=== PATIENT | male | born 1945 | race Caucasian/White ===

== ENCOUNTER 2023-10-30 14:35 | Observation (INO) | payer MEDICARE, OTHER, SELFPAY ==
[2023-10-30] VITALS (9 sets, daily range): BP systolic 142–190; BP diastolic 72–93; PULSE 61–84; TEMP 36.4–36.8; O2SAT 96–99; BMI 24.9
--- NOTE | 2023-10-30 14:52 | CT_ITS ---
The [address] [address] Patient Name: AFITH OLIVIER MRN: [id number] date: 1945 Sex: M Assigned Patient Location: ER Current Patient Location: ER Accession/Order Number: [id number] Exam Date: 10/30/2023 14:52 Report Date: 10/30/2023 15:09 At the request of: TOSIN STOVALL Procedure: CT stroke head/brain wo con NONCONTRAST HEAD CT COMPARISON: Head CT, 07/01/2017. CLINICAL HISTORY: Confusion. TECHNIQUE: Routine noncontrast images of the brain obtained. CT examination of the head without IV contrast. Dose reduction techniques were achieved by using: automated exposure control and/or adjustment of mA and /or kV according to patient size and/or use of iterative reconstruction technique. FINDINGS: Paranasal sinuses and mastoid air cells are clear. Intraorbital contents are unremarkable. No acute bony abnormality. Intracranially, there is no evidence of hemorrhage, mass effect, or midline shift. Brain atrophy unchanged. Dense carotid vascular calcifications.. CT/CT stroke head/brain wo con IMPRESSION: No acute intracranial abnormality. Electronically authenticated by: MAXIME BOSTON Date: 10/30/2023 15:09
--- NOTE | 2023-10-30 14:52 | XR_ITS ---
The [address] [address] Patient Name: FAITH OLIVIER MRN: [id number] date: 1945 Sex: M Assigned Patient Location: ER Current Patient Location: ER Accession/Order Number: [id number] Exam Date: 10/30/2023 14:52 Report Date: 10/30/2023 15:22 At the request of: TOSIN STOVALL Procedure: XR chest 1V EXAMINATION: XR chest 1V HISTORY: TIA COMPARISON: No relevant comparison available. FINDINGS: LUNGS: No significant pulmonary parenchymal abnormalities. VASCULATURE: No increased pulmonary vasculature. PLEURA: No pneumothorax, effusion, or pleural thickening. CARDIAC: No cardiomegaly or cardiac silhouette abnormality. MEDIASTINUM: No visible mass or adenopathy. BONES: No fracture or visible bone lesion. OTHER: Negative. XR/XR chest 1V IMPRESSION: 1. No acute cardiopulmonary process. Electronically authenticated by: RAZA WEIR Date: 10/30/2023 15:22
--- NOTE | 2023-10-30 14:52 | ECG_ITS ---
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
[2023-10-30 14:54] LABS: Glucometer 99 mg/dL (74-106)
--- NOTE | 2023-10-30 14:55 | ED_ITS ---
HPI HPI - General Adult General Chief complaint: Neuro Symptoms/Deficit Stated complaint: TIA Time Seen by Provider: 10/30/23 14:46 Source: family Source information: Mode of arrival: Wheelchair Limitations: no limitations History of Present Illness HPI narrative: Patient is a 78-year-old male with a history of dementia who presents to the emergency department with his for evaluation of an episode that occurred at home just prior to arrival. 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 Patient's daughter reported over the weekend last week, the patient had slurred speech. Patient's states he has a history of having a carotid endarterectomy in 1 side, he is awaiting a vascular appointment to have the other side evaluated. She denies any history of stroke. She states he has baseline dementia and is always disoriented to time Related Data Allergies Allergy/AdvReac Type Severity Reaction Status Date / Time NSAIDS (Non-Steroidal Allergy Mild Headache Verified 10/30/23 14:47 Anti-Inflamma Opioid HPI Opioid Management Most Recent Opioid Data: No Data to Display Review of Systems ROS Constitutional Denies: fever or chills Ears, nose, mouth, and throat Denies: throat pain or nasal congestion Respiratory Denies: shortness of breath Gastrointestinal Denies: abdominal pain, nausea or vomiting Integumentary/Breast Denies: rash Neurological Denies: headache Hematologic/Lymphatic Denies: easy bruising or easy bleeding Exam Narrative Exam Narrative: Gen.: Awake, alert, in no distress Head: Normocephalic, atraumatic ENT: Moist mucous membranes Respiratory: No respiratory distress, lungs clear bilaterally Cardio: Regular rate and rhythm Gastrointestinal: Abdomen is soft, nondistended and nontender to palpation Extremities: Moves extremities equally, no injuries noted Psych: Normal mood and affect Neuro: No focal neuro deficit, Alert and oriented to person and place. Disoriented to time at baseline. No unilateral weakness Skin: Warm, dry, intact Constitutional Vital Signs, click to edit/add: Last Vital Signs Temp 98.2 F 10/30/23 14:47 Pulse 66 10/30/23 18:21 Resp 18 10/30/23 18:21 BP 183/93 H 10/30/23 18:21 Pulse Ox 99 10/30/23 18:21 Course Vital Signs Vital signs: Vital Signs Temperature 98.2 F 10/30/23 14:47 Pulse Rate 78 10/30/23 14:47 Respiratory Rate 16 10/30/23 14:47 Blood Pressure 142/77 H 10/30/23 14:47 Pulse Oximetry 98 10/30/23 14:47 Temperature 98.2 F 10/30/23 14:47 Pulse Rate 66 10/30/23 18:21 Respiratory Rate 18 10/30/23 18:21 Blood Pressure 183/93 H 10/30/23 18:21 Pulse Oximetry 99 10/30/23 18:21 Medical Decision Making MDM Narrative Medical decision making narrative: On arrival to the emergency department, patient was immediately sent for stroke protocol CT of the brain, IV was established, labs were drawn and EKG was performed. He has no focal neurodeficits in the ER other than his baseline short-term memory issues where he is disoriented to month, year and age. He maintained stable vital signs in the ER, CT angio of the head and neck is unremarkable. I discussed the case with Dr. Robledo for [facility] stroke interventionalists. No other acute neurological intervention indicated at this time and the patient will be placed in the hospital for observation for a possible syncopal episode versus near syncopal episode. He is stable at time of admission. Medical Records Medical records reviewed: Yes I reviewed the patient's medical records Lab Data Lab results reviewed: Yes I reviewed the patient's lab results Labs: Lab Results 10/30/23 10/30/23 10/30/23 Range/Units 14:48 15:10 15:58 WBC 5.6 (4.0-11.0) 10^3/uL RBC 3.99 L (4.70-6.10) 10^6/uL Hgb 12.7 L (14.0-18.0) g/dL Hct 38.6 L (42.0-54.0) % MCV 96.7 H (80.0-94.0) fL MCH 31.8 (25.9-34.0) pg MCHC 32.9 (29.9-35.2) g/dL RDW 13.0 (11.0-15.0) % Plt Count 196 (150-450) 10^3/uL MPV 9.7 (9.5-13.5) fL Neut % (Auto) 54.8 (43.0-75.0) % Lymph % (Auto) 32.6 (20.5-60.0) % [place] % (Auto) 11.2 (1.7-12.0) % Eos % (Auto) 0.7 L (0.9-7.0) % Baso % (Auto) 0.5 (0.2-2.0) % Neut # (Auto) 3.1 (1.4-6.5) 10^3/uL Lymph # (Auto) 1.8 (1.2-3.8) 10^3/uL [place] # (Auto) 0.6 (0.3-0.8) 10^3/uL Eos # (Auto) 0.0 (0.0-0.7) 10^3/uL Baso # (Auto) 0.0 (0.0-0.1) 10^3/uL Abs Immat Gran (auto) 0.01 (0.00-0.03) 10^3/uL Imm/Tot Granulo (auto) 0.2 (0.0-0.5) % PT 11.1 (9.0-11.6) sec INR 1.05 Sodium 139 (136-145) mmol/L Potassium 4.4 (3.5-5.1) mmol/L Chloride 104 (98-107) mmol/L Carbon Dioxide 28.7 (21.0-32.0) mmol/L Anion Gap 10.7 BUN 24.0 H (7.0-18.0) mg/dL Creatinine 1.16 (0.70-1.30) mg/dL Est GFR ( Amer) >60 (>=60) Est GFR (Non-Af Amer) >60 (>=60) BUN/Creatinine Ratio 20.7 Glucose 94 (74-106) mg/dL Calcium 9.2 (8.5-10.1) mg/dL Total Bilirubin 0.4 (0.2-1.0) mg/dL AST 20 (15-37) U/L ALT 30 (16-63) U/L Alkaline Phosphatase 50 (46-116) U/L Troponin I High Sens 6.3 (4.0-76.1) pg/mL Total Protein 6.9 (6.4-8.2) g/dL Albumin 3.5 (3.4-5.0) g/dL Globulin 3.4 g/dL Albumin/Globulin Ratio 1.0 TSH 6.001 H (0.358-3.740) uIU/mL Urine Color Lt. yellow (YELLOW) Urine Clarity Clear (CLEAR) Urine pH 6.5 (5.0-9.0) Ur Specific [place] 1.020 (1.005-1.025) Urine Protein Negative (NEG/TRACE) mg/dL Urine Glucose (UA) Negative (NEGATIVE) mg/dL Urine Ketones Negative (NEGATIVE) mg/dL Urine Occult Blood Negative (NEGATIVE) Urine Nitrite Negative (NEGATIVE) Urine Bilirubin Negative (NEGATIVE) Urine Urobilinogen 0.2 (0.2-1.0) EU/dL Ur Leukocyte Esterase Trace A (NEGATIVE) Urine RBC 0-2 (0-2) #/HPF Urine WBC 2-5 A (NONE SEEN) #/HPF Ur Squamous Epith Cells None seen (NONE/RARE) #/LPF Urine Crystals None seen (None Seen) #/HPF Urine Bacteria Trace A (NONE SEEN) #/HPF Urine Casts None seen (NONE SEEN) #/LPF Urine Mucus Small A (NONE SEEN) Ur Culture Indicated? No POC Glucose 99 (74-106) mg/dL Imaging Data CT scan - head: Attestation: I have reviewed the pertinent imaging results. Radiologist's impression: ITS Impressions Brain CT 10/30/23 14:52 IMPRESSION: No acute intracranial abnormality. Electronically authenticated by: MAXIME BOSTON Date: 10/30/2023 15:09 Chest X-Ray 10/30/23 14:52 IMPRESSION: 1. No acute cardiopulmonary process. Electronically authenticated by: RAZA WEIR Date: 10/30/2023 15:22 Head CTA 10/30/23 16:51 IMPRESSION: 1. No acute arterial abnormalities in the head or neck. 2. Moderate right cervical ICA stenosis of 50% or greater. Electronically authenticated by: MADELYN TAYLOR Date: 10/30/2023 18:05 Neck CTA 10/30/23 16:51 IMPRESSION: 1. No acute arterial abnormalities in the head or neck. 2. Moderate right cervical ICA stenosis of 50% or greater. Electronically authenticated by: MADELYN TAYLOR Date: 10/30/2023 18:05 ECG Data Attestation: I personally reviewed and interpreted this ECG as follows: (Normal sinus rhythm at a rate of 72 with occasional PVC, no acute ST elevation or ectopy. EKG reviewed by attending physician) Discharge Plan Discharge Chief Complaint: Neuro Symptoms/Deficit Clinical Impression: Syncope Patient Disposition: Admitted as Observation Time of Disposition Decision: 18:22 Condition: Good
[2023-10-30 15:27] LABS: Basophils Percent Auto 0.5 % (0.2-2.0); Eosinophils Percent Auto 0.7 % (0.9-7.0); Hematocrit 38.6 % (42.0-54.0); Hemoglobin 12.7 g/dL (14.0-18.0); Immature Granulocytes Abs Auto 0.01 10^3/uL (0.00-0.03); Immature Granulocytes Pct Auto 0.2 % (0.0-0.5); Lymphocytes Absolute Auto 1.8 10^3/uL (1.2-3.8); Lymphocytes Percent Auto 32.6 % (20.5-60.0); Mean Corpuscular HGB Conc 32.9 g/dL (29.9-35.2); Mean Corpuscular Hemoglobin 31.8 pg (25.9-34.0); Mean Corpuscular Volume 96.7 fL (80.0-94.0); Mean Platelet Volume 9.7 fL (9.5-13.5); Monocytes Absolute Auto 0.6 10^3/uL (0.3-0.8); Monocytes Percent Auto 11.2 % (1.7-12.0); Neutrophils Absolute Auto 3.1 10^3/uL (1.4-6.5); Neutrophils Percent Auto 54.8 % (43.0-75.0); Platelet Count 196 10^3/uL (150-450); Red Blood Count 3.99 10^6/uL (4.70-6.10); White Blood Count 5.6 10^3/uL (4.0-11.0)
[2023-10-30 15:45] LABS: INR 1.05; Prothrombin Time 11.1 sec (9.0-11.6)
[2023-10-30 16:02] LABS: Alanine Aminotransferase 30 U/L (16-63); Albumin Level 3.5 g/dL (3.4-5.0); Alkaline Phosphatase 50 U/L (46-116); Anion Gap 10.7; Aspartate Amino Transferase 20 U/L (15-37); BUN Creatinine Ratio 20.7; Bilirubin Total 0.4 mg/dL (0.2-1.0); Calcium 9.2 mg/dL (8.5-10.1); Carbon Dioxide 28.7 mmol/L (21.0-32.0); Chloride 104 mmol/L (98-107); Estimated GFR (African America >60 (>=60); Estimated GFR (Non-African Ame >60 (>=60); Globulin 3.4 g/dL; Glucose 94 mg/dL (74-106); Potassium 4.4 mmol/L (3.5-5.1); Sodium 139 mmol/L (136-145); Thyroid Stimulating Hormone 6.001 uIU/mL (0.358-3.740); Total Protein 6.9 g/dL (6.4-8.2); Troponin I High Sensitivity 6.3 pg/mL (4.0-76.1)
[2023-10-30 16:19] LABS: Bilirubin Urine NEGATIVE (NEGATIVE); Blood Urine NEGATIVE (NEGATIVE); Clarity Urine CLEAR (CLEAR); Color Urine LT. YELLOW (YELLOW); Glucose Urine UA NEGATIVE (NEGATIVE); Ketones Urine NEGATIVE (NEGATIVE); Leukocyte Esterase Urine TRACE (NEGATIVE); Nitrite Urine NEGATIVE (NEGATIVE); Protein Urine NEGATIVE (NEG/TRACE); Urobilinogen Urine 0.2 EU/dL (0.2-1.0); pH Urine 6.5 (5.0-9.0)
[2023-10-30 16:29] LABS: Urine Microscopic Indicated YES
--- NOTE | 2023-10-30 16:51 | CT_ITS ---
[address] [address] Patient Name: FAITH OLIVIER MRN: [id number] date: 1945 Sex: M Assigned Patient Location: ER Current Patient Location: Accession/Order Number: [id number] Exam Date: 10/30/2023 16:55 Report Date: 10/30/2023 18:05 At the request of: TOSIN STOVALL Procedure: CT angio neck EXAM: CT angiogram of the head and neck using 99 mL of IV iodinated contrast. 3D images were generated on an independent workstation for better evaluation of the vasculature. NASCET criteria were used when evaluating the carotid arteries. Dose reduction technique used: Automated exposure control and/or adjustment of the mA and/or kV according to patient size and/or use of iterative reconstruction technique. REASON FOR EXAM: TIA COMPARISON: CT scan dated 04/05/2021 FINDINGS: CTA: No large vessel occlusion. Mild bilateral intracranial ICA stenoses. No arterial dissections. No intracranial aneurysms. Patent dural venous sinuses. Moderate stenosis at the origin of the right cervical internal carotid artery with stenosis of 50% or greater. The remainder of the bilateral cervical internal carotid, bilateral common carotid and bilateral vertebral arteries are patent without significant stenosis, aneurysm or dissection. NON-VASCULAR: No mass effect or midline shift. No hydrocephalus. Mild generalized cerebral and cerebellar volume loss. Remainder unremarkable. CT/CT angio neck IMPRESSION: 1. No acute arterial abnormalities in the head or neck. 2. Moderate right cervical ICA stenosis of 50% or greater. Electronically authenticated by: MADELYN TAYLOR Date: 10/30/2023 18:05
--- NOTE | 2023-10-30 16:51 | CT_ITS ---
[address] [address] Patient Name: FAITH OLIVIER MRN: [id number] date: 1945 Sex: M Assigned Patient Location: ER Current Patient Location: Accession/Order Number: [id number] Exam Date: 10/30/2023 16:55 Report Date: 10/30/2023 18:05 At the request of: TOSIN STOVALL Procedure: CT angio head EXAM: CT angiogram of the head and neck using 99 mL of IV iodinated contrast. 3D images were generated on an independent workstation for better evaluation of the vasculature. NASCET criteria were used when evaluating the carotid arteries. Dose reduction technique used: Automated exposure control and/or adjustment of the mA and/or kV according to patient size and/or use of iterative reconstruction technique. REASON FOR EXAM: TIA COMPARISON: CT scan dated 04/05/2021 FINDINGS: CTA: No large vessel occlusion. Mild bilateral intracranial ICA stenoses. No arterial dissections. No intracranial aneurysms. Patent dural venous sinuses. Moderate stenosis at the origin of the right cervical internal carotid artery with stenosis of 50% or greater. The remainder of the bilateral cervical internal carotid, bilateral common carotid and bilateral vertebral arteries are patent without significant stenosis, aneurysm or dissection. NON-VASCULAR: No mass effect or midline shift. No hydrocephalus. Mild generalized cerebral and cerebellar volume loss. Remainder unremarkable. CT/CT angio head IMPRESSION: 1. No acute arterial abnormalities in the head or neck. 2. Moderate right cervical ICA stenosis of 50% or greater. Electronically authenticated by: MADELYN TAYLOR Date: 10/30/2023 18:05
[2023-10-30 17:04] LABS: Bacteria Urine TRACE #/HPF (NONE SEEN); Cast Seen? NONE SEEN #/LPF (NONE SEEN); Crystals Seen? None Seen #/HPF (None Seen); Mucus Urine SMALL (NONE SEEN); RBC Urine 0-2 #/HPF (0-2); Squamous Epithelial Cell Urine NONE SEEN #/LPF (NONE/RARE)
[2023-10-30 17:05] LABS: Urine Culture Indicated NO
[2023-10-30 19:29] LABS: Estimated Average Glucose 120 mg/dL; Glycohemoglobin A1C 5.8 % (4.5-6.2)
[2023-10-30] MEDS: HYDRALAZINE HCL 20 MG/ML VIAL 10 MG IVP (20:27)
[2023-10-30] MEDS: 0.9 % SODIUM CHLORIDE 1,000 ML 75 ML IV (20:30)
[2023-10-30] MEDS: LOSARTAN POTASSIUM 25 MG TABLET PO (21:53)
[2023-10-30] MEDS: DONEPEZIL HCL 10 MG TABLET PO (21:53)
[2023-10-30] MEDS: ATORVASTATIN CALCIUM 20 MG TABLET PO (21:53)
[2023-10-30] MEDS: TAMSULOSIN HCL 0.4 MG CAPSULE 0.400000000000000022 MG PO (21:53)
[2023-10-30] MEDS: QUETIAPINE FUMARATE 25 MG TABLET 50 MG PO (21:53)
[2023-10-31] VITALS (8 sets, daily range): BP systolic 110–155; BP diastolic 63–82; PULSE 63–89; TEMP 36.7–37; O2SAT 95–96
[2023-10-31 05:16] LABS: Basophils Percent Auto 0.5 % (0.2-2.0); Hematocrit 37.9 % (42.0-54.0); Hemoglobin 12.7 g/dL (14.0-18.0); Lymphocytes Percent Auto 35.5 % (20.5-60.0); Mean Corpuscular HGB Conc 33.5 g/dL (29.9-35.2); Mean Corpuscular Hemoglobin 32.1 pg (25.9-34.0); Mean Corpuscular Volume 95.7 fL (80.0-94.0); Mean Platelet Volume 9.8 fL (9.5-13.5); Monocytes Percent Auto 9.7 % (1.7-12.0); Platelet Count 187 10^3/uL (150-450); Red Blood Count 3.96 10^6/uL (4.70-6.10); Red Cell Distribution Width 12.8 % (11.0-15.0); White Blood Count 5.9 10^3/uL (4.0-11.0)
[2023-10-31 05:17] LABS: Eosinophils Absolute Auto 0.1 10^3/uL (0.0-0.7); Immature Granulocytes Abs Auto 0.02 10^3/uL (0.00-0.03); Immature Granulocytes Pct Auto 0.3 % (0.0-0.5); Lymphocytes Absolute Auto 2.1 10^3/uL (1.2-3.8); Monocytes Absolute Auto 0.6 10^3/uL (0.3-0.8); Neutrophils Absolute Auto 3.1 10^3/uL (1.4-6.5)
[2023-10-31 05:35] LABS: Estimated Average Glucose 120 mg/dL; Glycohemoglobin A1C 5.8 % (4.5-6.2)
[2023-10-31 05:45] LABS: INR 1.05; Prothrombin Time 11.1 sec (9.0-11.6)
[2023-10-31 05:47] LABS: Chol HDL Ratio 2.6; Cholesterol 132 mg/dL (<=200); Glucose 88 mg/dL (74-106); HDL Cholesterol 50 mg/dL (40-60); Triglycerides 50 mg/dL (<=150)
--- NOTE | 2023-10-31 08:11 | MR_ITS ---
The [address] [address] Patient Name: FAITH OLIVIER MRN: [id number] date: 1945 Sex: M Assigned Patient Location: MS Current Patient Location: MS Accession/Order Number: [id number] Exam Date: 10/31/2023 09:35 Report Date: 10/31/2023 10:30 At the request of: KARELY HERRERA Procedure: MR head/brain wo con EXAM: MR head/brain wo con HISTORY: TIA, CVA, syncope COMPARISON: CT head 10/30/2023, CTA head 10/30/2023. TECHNIQUE: Multiplanar multisequence MR imaging of the brain was performed without intravenous contrast. FINDINGS: Calvarium/skull base: No focal marrow replacing lesion suggestive of neoplasm. Orbits: Grossly unremarkable. Paranasal sinuses: Mild mucosal thickening of the left greater than right maxillary and ethmoid sinuses. Brain: No restricted diffusion. Mild scattered T2 FLAIR signal hyperintensities are present involving the supratentorial white matter which in this age group most commonly relates to sequela small vessel disease. Mild parenchymal volume loss. No mass effect, hemorrhage, or hydrocephalus. Grossly normal flow-related signal in the major intracranial arteries and dural sinuses. MR/MR head/brain wo con IMPRESSION: 1. No acute ischemia. 2. Minimal senescent change. Electronically authenticated by: LOUIS PONCE Date: 10/31/2023 10:30
--- NOTE | 2023-10-31 08:11 | US_ITS ---
[address] [address] Patient Name: FAITH OLIVIER MRN: [id number] date: 1945 Sex: M Assigned Patient Location: MS Current Patient Location: MS Accession/Order Number: [id number] Exam Date: 10/31/2023 08:30 Report Date: 10/31/2023 10:31 At the request of: KARELY HERRERA Procedure: US carotid duplex BI EXAMINATION: US carotid duplex BI HISTORY: TIA, hx CVA COMPARISON: No relevant comparison available. TECHNIQUE: Duplex Doppler ultrasound analysis of carotid and vertebral arteries. . Bilateral carotid arterial duplex examination was performed using B-mode, color flow and spectral analysis. Carotid stenosis is reported according to validated velocity parameters, similar to NASCET criteria. FINDINGS: RIGHT CAROTID ARTERY: Moderate atherosclerotic plaque within bulb and proximal ICA, with up to 44% area reduction within the proximal ICA. RIGHT VERTEBRAL: Antegrade flow. Subclavian: PSV: 127.9 cm/s EDV: 0.0 cm/s CCA: Prox: PSV: 110.2 cm/s EDV: 0.0 cm/s Mid: PSV: 92.4 cm/s EDV: 9.7 cm/s Distal: PSV: 108.1 cm/s EDV: 7.7 cm/s BULB: PSV: 94.4 cm/s EDV: 5.7 cm/s ICA: Prox: PSV: 205.9 cm/s EDV: 19.2 cm/s Mid: PSV: 139.7 cm/s EDV: 9.7 cm/s Distal: PSV: 144.7 cm/s EDV: 10.9 cm/s ECA: PSV: 172.5 cm/s EDV: 0.0 cm/s VERTEBRAL: PSV: 72.5 cm/s EDV: 4.7 cm/s ICA/CCA ratio: PSV: 1.9 EDV: LEFT CAROTID ARTERY: Mild atherosclerotic disease without significant stenosis. LEFT VERTEBRAL: Antegrade flow. Subclavian: PSV: 161 cm/s EDV: 0.0 cm/s CCA: Prox: PSV: 126 m/s EDV: 0.0 cm/s Mid: PSV: 104 cm/s EDV: 13.7 cm/s Distal: PSV: 116 cm/s EDV: 11.4 cm/s BULB: PSV: 121 cm/s EDV: 0.0 cm/s ICA: Prox: PSV: 107 cm/s EDV: 11.4 cm/s Mid: PSV: 107 cm/s EDV: 13.7 cm/s Distal: PSV: 86 cm/s EDV: 13.7 cm/s ECA: PSV: 135 cm/s EDV: 0.0 cm/s VERTEBRAL: PSV: 102 cm/s EDV: 13.7 cm/s ICA/CCA ratio: PSV: 1.0 EDV: US/US carotid duplex BI IMPRESSION: 1. Moderate atherosclerotic disease within right carotid bulb and proximal ICA with 50-69% flow stenosis according to flow velocity. 2. Mild atherosclerotic disease within left carotid artery with 0-49% flow stenosis. Spectral Doppler US Thresholds Stenosis (%) PSV (cm/sec) VICA/VCCA 0-49 <150 <2.5 50-69 150-225 2.5-4.0 >70 >225 >4.0 Electronically authenticated by: RAZA WEIR Date: 10/31/2023 10:31
--- NOTE | 2023-10-31 08:14 | P.HP_ITS ---
HPI H&P: HPI History of Present Illness Chief complaint: TIA SYNCOPE Narrative: Patient is a pleasant 78 y.o white male with past medical history of CAD, HTN, dementia, HLD, who presented to the ER last evening after having an episode at home. 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 He was disoriented and did not recognize her, laid on the couch and slept for about 1 hour. His also notes a time about 1 week ago that her daughter called home and when talking to him then, his speech was garbled. She reports he returned to his normal state health and has been otherwise fine this week. Patient denies any confusion (baseline dementia), but nothing out of the ordinary, no weakness, vision issues, chest pain or SOB. No problems with speech or thought process. Patient has a history of left carotid endarterectomy to [facility] 06/25/21, he follow with Vascular surgery there and they have been monitoring the right side that reports 60-70% stenosis. He also follows with [facility] [employer] [facility] [employer] for his HLD, and HTN. BP has been stable. Currently only takes aspirin. Patient says he has had a work up for this before, and they never find anything . He denies any current issues or concerns this morning. uncertain if he has had an ECHO recently. In the ER, CTA performed which showed no acute brain abnormalities, and right carotid stenosis > 50%. He was admitted for observation and further plan of care to hospitalist team. Opioid HPI Opioid Management Most Recent Opioid Data: Last Pain Assessment 10/31/23 10:13 Last ORT Total Score 6 10/30/23 18:53 Last ORT Risk Category Moderate Risk 10/30/23 18:53 Review of Systems ROS Narrative ROS: a complete review of systems were reviewed with patient and are positive as below or listed in History of Chief Complaint. General: no fever, chills, night sweats Head: no headache, trauma, visual changes, nausea or vomiting Skin: no reported rashes, itching or sores Eyes: no blurriness of vision Ears: no reported hearing loss, vertigo, earache, or tinnitus Throat: no sore throat, hoarseness, swelling of neck, or tongue pain Heart: no chest pain Lungs: no shortness of breath or cough GI: no diarrhea or vomiting/nausea Urinary: no urinary urgency, frequency or pain Neuro: no numbness or tingling HEM: no bleeding issues or bruising ENDO: no thyroid problems Psych: no anxiety or depression, dementia with anger [facility] Medical History (Updated 10/31/23 @ 10:31 by Lissette Walls DO) Carotid arterial disease ?I77.9 - Disorder of arteries and arterioles, unspecified (ICD-10) Hyperlipidemia ?E78.5 - Hyperlipidemia, unspecified (ICD-10) Hypertension ?I10 - Essential (primary) hypertension (ICD-10) Dementia ?F03.90 - Unspecified dementia, unspecified severity, without behavioral disturbance, psychotic disturbance, mood disturbance, and anxiety (ICD-10) Surgical History H/O hernia repair ?Z98.890 - Other specified postprocedural states (ICD-10) ?Z87.19 - Personal history of other diseases of the digestive system (ICD-10) Hx of tonsillectomy ?Z90.89 - Acquired absence of other organs (ICD-10) Family History Father Family history of stroke Family history of diabetes mellitus Family history of hypertension Social History Within the past year, how often did you have a drink containing alcohol: never Score interpretation: A score less than 4 is consistent with normal alcohol consumption. Smoking status: Never smoker Non-prescribed substance use: denies use Previous occupational history: retired Highest level of school completed/degree received: high school graduate Are you now , , , , never or living with a partner: In a typical week, how many times do you talk on the telephone with family, friends, or neighbors: 3 or more times per week How often do you get together with friends or relatives: 3 or more times per week How often do you attend hinduism or zoroastrianism services: 4 or more times per year Do you belong to any clubs or organizations such as hinduism groups unions, fraternal or athletic groups, or school groups: no Total score: 3 Score interpretation: A score of greater than or equal to 2 indicates the lowest level of social isolation. Little interest or pleasure in doing things: not at all Feeling down, depressed, or hopeless: not at all Feel stressed/tense/nervous/anxious/difficulty sleeping: not at all Meds Home Medications and Allergies Home Medications ?Medication ?Instructions ?Recorded ?Confirmed ?Type aspirin 81 mg tablet,delayed 81 mg PO DAILY 10/30/23 10/30/23 History release donepezil 10 mg tablet 10 mg PO .qhs 10/30/23 10/30/23 History fluoxetine 20 mg capsule 20 mg PO QAM 10/30/23 10/30/23 History losartan 25 mg tablet 25 mg PO .q 10/30/23 10/30/23 History melatonin 10 mg tablet 10 mg PO DAILY 10/30/23 10/30/23 History quetiapine 25 mg tablet 100 mg PO QA 10/30/23 10/30/23 History quetiapine 50 mg tablet 50 mg PO .q 10/30/23 10/30/23 History simvastatin 40 mg tablet 40 mg PO .q 10/30/23 10/30/23 History tamsulosin 0.4 mg capsule 0.4 mg PO .qhs 10/30/23 10/30/23 History Allergies Allergy/AdvReac Type Severity Reaction Status Date / Time NSAIDS (Non-Steroidal Allergy Mild Headache Verified 10/30/23 14:47 Anti-Inflamma Exam Narrative Exam Narrative: General: Patient is alert, and oriented to person, place and time with normal affect, proper hygiene Skin: no visible rashes, or ulcers Head: atraumatic, acephalic Eyes: PERRLA, no nystagmus present, conjunctiva clear, no scleral icterus Ears:diminished gross auditory acuity Neck: no masses palpated, normal thyroid, no JVD or audible carotid bruits Heart: Normal rate and rhythm, no murmurs/rubs/gallops Lungs: no audible wheezes, crackles and normal breath sounds all lung vivas Abdomen: Normal audible bowel sounds, no distension, No palpable masses, no organomegaly, no rebound/guarding/ or rigidity Musculoskeletal: no swelling bilateral lower extremities Neuro: CN II-X grossly intact, normal sensation upper and lower extremities Constitutional Vital Signs, click to edit/add: Last Vital Signs Temp 98.0 F 10/31/23 08:11 Pulse 89 10/31/23 08:12 Resp 16 10/31/23 08:11 BP 131/63 10/31/23 08:12 Pulse Ox 96 10/31/23 08:11 O2 Del Method Room Air 10/31/23 08:11 Results Labs Labs: Short CBC 10/30/23 10/31/23 Range/Units 15:10 04:26 WBC 5.6 5.9 (4.0-11.0) 10^3/uL Hgb 12.7 L 12.7 L (14.0-18.0) g/dL Hct 38.6 L 37.9 L (42.0-54.0) % Plt Count 196 187 (150-450) 10^3/uL BMP 10/30/23 10/31/23 15:10 04:26 Sodium 139 Potassium 4.4 Chloride 104 Carbon Dioxide 28.7 BUN 24.0 H Creatinine 1.16 Glucose 94 88 Calcium 9.2 Liver Function 10/30/23 Range/Units 15:10 Total Bilirubin 0.4 (0.2-1.0) mg/dL AST 20 (15-37) U/L ALT 30 (16-63) U/L Alkaline Phosphatase 50 (46-116) U/L Albumin 3.5 (3.4-5.0) g/dL Urine 10/30/23 Range/Units 15:58 Urine Color Lt. yellow (YELLOW) Urine Clarity Clear (CLEAR) Urine pH 6.5 (5.0-9.0) Ur Specific [place] 1.020 (1.005-1.025) Urine Protein Negative (NEG/TRACE) mg/dL Urine Glucose (UA) Negative (NEGATIVE) mg/dL Assessment and Plan Assessment and Plan (1) Syncope: Assessment and Plan: Rule out CVA, CTA was negative exception of findings of right carotid stenosis which has been known and followed by Vascular surgery at [facility]. Patient takes statin and aspirin. Will get Carotid artery ultrasound and also MRI to complete Stroke work up. Patient with no focal neurological deficits on exam today or complaints. Based on history, may have been heat related syncope. Will update family on results of MRI and carotid ultrasounds. If negative, will discharge home today with close vascular follow up right carotid stenosis and close cardiology follow up for echo. Qualifiers: Syncope type: unspecified Qualified Code(s): R55 - Syncope and collapse (2) Carotid arterial disease: Assessment and Plan: lipids stable, continue simvastatin, aspirin, would consider addition of plavix until evaluated by vascular again. Qualifiers: Carotid artery disease type: stenosis Laterality: bilateral Qualified Code(s): I65.23 - Occlusion and stenosis of bilateral carotid arteries (3) Hyperlipidemia: Assessment and Plan: continue simvastin. lipids at goal Qualifiers: Hyperlipidemia type: unspecified Qualified Code(s): E78.5 - Hyperlipidemia, unspecified (4) Hypertension: Assessment and Plan: continue losartan. Qualifiers: Hypertension type: primary hypertension Qualified Code(s): I10 - Essential (primary) hypertension (5) Dementia: Assessment and Plan: continue donepezil and seroquel. Qualifiers: Dementia type: Alzheimer's Alzheimer's disease onset: unspecified onset Dementia severity: mild Dementia behavioral or psychological symptom: with agitation Qualified Code(s): G30.9 - Alzheimer's disease, unspecified; F02.A11 - Dementia in other diseases classified elsewhere, mild, with agitation (6) Hypothyroidism (acquired): Assessment and Plan: elevated TSH, Will add free T4. could also be relating to syncope. Will place on levothyroxine 50mcg daily, recheck TFT's by primary in 10 days. Plan Patient is full code lovenox for dvt prophylaxis patient is observation status and not expected to cross 2 midnights.
[2023-10-31] MEDS: ASPIRIN 81 MG TABLET.DR PO (09:24)
[2023-10-31] MEDS: ENOXAPARIN SODIUM 40 MG/0.4 ML SYRINGE SUBQ (09:24)
[2023-10-31] MEDS: FLUOXETINE HCL 20 MG CAPSULE PO (09:24)
[2023-10-31] MEDS: QUETIAPINE FUMARATE 25 MG TABLET 100 MG PO (09:24)
[2023-10-31] MEDS: CLOPIDOGREL BISULFATE 75 MG TABLET PO (11:06)
--- NOTE | 2023-10-31 12:11 | PM.DS1 ---
DS: Providers Provider Date of admission: 10/30/23 18:38 Primary care physician: Gini Burleson NP Admitting clinician: Lissette Walls Consults: 10/30/23 18:23 Consult to Telestroke Routine Reason for consultation: Syncope vs TIA Has provider been notified: Yes Discharging clinician: Lissette Walls DS: Diagnosis Discharge Diagnosis (1) Syncope: Qualifiers: Syncope type: unspecified Qualified Code(s): R55 - Syncope and collapse (2) Carotid arterial disease: Qualifiers: Carotid artery disease type: stenosis Laterality: bilateral Qualified Code(s): I65.23 - Occlusion and stenosis of bilateral carotid arteries (3) Hyperlipidemia: Qualifiers: Hyperlipidemia type: unspecified Qualified Code(s): E78.5 - Hyperlipidemia, unspecified (4) Hypertension: Qualifiers: Hypertension type: primary hypertension Qualified Code(s): I10 - Essential (primary) hypertension (5) Dementia: Qualifiers: Dementia type: Alzheimer's Alzheimer's disease onset: unspecified onset Dementia severity: mild Dementia behavioral or psychological symptom: with agitation Qualified Code(s): G30.9 - Alzheimer's disease, unspecified; F02.A11 - Dementia in other diseases classified elsewhere, mild, with agitation (6) Hypothyroidism (acquired): DS: Summary Hospital Course Hospital Course: Please see H&P dated today, MRI of the brain showed no acute abnormalities and carotid artery ultrasounds showed stenosis in the right 50-69%, this is known and is being followed at [facility]. I discussed all studies and new lab finding of hypothyroidism with patient and . Since patient has had no further syncopal episodes and stroke work up has been negative, will discharge home. Home medications to stay the same with addition of levothyroxine 50mcg daily. He will need to follow up with Vascular for continued rechecks on the right carotid artery stenosis, with Cardiology for Echocardiogram (we do not do at [facility] on the weekends), and with his PCP within the month for recheck thyroid studies. He is to return to the ER with any worsening signs or symptoms. I also encouraged him to take more breaks when working outside, [place], and staying hydrated. Status at Discharge Functional status at discharge: independent ambulation Overall status at discharge: patient is back to baseline Time Spent with Patient Time attestation: Total time spent providing and/or coordinating discharge services: Time spent: greater than 30 minutes Quality: Stroke Onset of Symptoms Date: 10/30/23 Onset of Symptoms Time: 11:14 Exam Narrative Exam Narrative: no changes from H&P exam dated 10/31/23 Constitutional Vital Signs, click to edit/add: Last Vital Signs Temp 98.0 F 10/31/23 08:11 Pulse 89 10/31/23 08:12 Resp 16 10/31/23 08:14 BP 131/63 10/31/23 08:12 Pulse Ox 96 10/31/23 08:11 O2 Del Method Room Air 10/31/23 08:11 DS: Data Data Completed and Pending Labs on day of discharge: Labs from last 24 hours 10/31/23 10/30/23 10/30/23 04:26 15:58 15:10 WBC 5.9 5.6 RBC 3.96 L 3.99 L Hgb 12.7 L 12.7 L Hct 37.9 L 38.6 L MCV 95.7 H 96.7 H MCH 32.1 31.8 MCHC 33.5 32.9 RDW 12.8 13.0 Plt Count 187 196 MPV 9.8 9.7 Neut % (Auto) 53.0 54.8 Lymph % (Auto) 35.5 32.6 [place] % (Auto) 9.7 11.2 Eos % (Auto) 1.0 0.7 L Baso % (Auto) 0.5 0.5 Neut # (Auto) 3.1 3.1 Lymph # (Auto) 2.1 1.8 [place] # (Auto) 0.6 0.6 Eos # (Auto) 0.1 0.0 Baso # (Auto) 0.0 0.0 Abs Immat Gran (auto) 0.02 0.01 Imm/Tot Granulo (auto) 0.3 0.2 PT 11.1 11.1 INR 1.05 1.05 Sodium 139 Potassium 4.4 Chloride 104 Carbon Dioxide 28.7 Anion Gap 10.7 BUN 24.0 H Creatinine 1.16 Est GFR ( Amer) >60 Est GFR (Non-Af Amer) >60 BUN/Creatinine Ratio 20.7 Glucose 88 94 Estimat Average Glucose 120 120 Hemoglobin A1c 5.8 5.8 Calcium 9.2 Total Bilirubin 0.4 AST 20 ALT 30 Alkaline Phosphatase 50 Troponin I High Sens 6.3 Total Protein 6.9 Albumin 3.5 Globulin 3.4 Albumin/Globulin Ratio 1.0 Triglycerides 50 Cholesterol 132 LDL Cholesterol, Calc 72.0 VLDL Cholesterol 10.0 HDL Cholesterol 50 Cholesterol/HDL Ratio 2.6 TSH 6.001 H Urine Color Lt. yellow Urine Clarity Clear Urine pH 6.5 Ur Specific [place] 1.020 Urine Protein Negative Urine Glucose (UA) Negative Urine Ketones Negative Urine Occult Blood Negative Urine Nitrite Negative Urine Bilirubin Negative Urine Urobilinogen 0.2 Ur Leukocyte Esterase Trace A Urine RBC 0-2 Urine WBC 2-5 A Ur Squamous Epith Cells None seen Urine Crystals None seen Urine Bacteria Trace A Urine Casts None seen Urine Mucus Small A Ur Culture Indicated? No POC Glucose 10/30/23 14:48 WBC RBC Hgb Hct MCV MCH MCHC RDW Plt Count MPV Neut % (Auto) Lymph % (Auto) [place] % (Auto) Eos % (Auto) Baso % (Auto) Neut # (Auto) Lymph # (Auto) [place] # (Auto) Eos # (Auto) Baso # (Auto) Abs Immat Gran (auto) Imm/Tot Granulo (auto) PT INR Sodium Potassium Chloride Carbon Dioxide Anion Gap BUN Creatinine Est GFR ( Amer) Est GFR (Non-Af Amer) BUN/Creatinine Ratio Glucose Estimat Average Glucose Hemoglobin A1c Calcium Total Bilirubin AST ALT Alkaline Phosphatase Troponin I High Sens Total Protein Albumin Globulin Albumin/Globulin Ratio Triglycerides Cholesterol LDL Cholesterol, Calc VLDL Cholesterol HDL Cholesterol Cholesterol/HDL Ratio TSH Urine Color Urine Clarity Urine pH Ur Specific [place] Urine Protein Urine Glucose (UA) Urine Ketones Urine Occult Blood Urine Nitrite Urine Bilirubin Urine Urobilinogen Ur Leukocyte Esterase Urine RBC Urine WBC Ur Squamous Epith Cells Urine Crystals Urine Bacteria Urine Casts Urine Mucus Ur Culture Indicated? POC Glucose 99 Discharge Plan Discharge Disposition: Home, Self-Care Condition: Good Discharge Medications: New levothyroxine 50 mcg tablet 50 mcg PO DAILY Qty: 30 0RF Continued donepezil 10 mg tablet 10 mg PO .qhs quetiapine 25 mg tablet 100 mg PO QAM losartan 25 mg tablet 25 mg PO .qhs fluoxetine 20 mg capsule 20 mg PO QAM quetiapine 50 mg tablet 50 mg PO .qhs simvastatin 40 mg tablet 40 mg PO .qhs tamsulosin 0.4 mg capsule 0.4 mg PO .qhs aspirin 81 mg tablet,delayed release (DR/EC) 81 mg PO DAILY melatonin 10 mg tablet 10 mg PO DAILY Activity: increase activity as tolerated Diet: advance to your usual diet Print Language: Yi Patient Instructions: Syncope (DC) Forms: Portal Instructions Follow Up Appointments: Please follow up with His [facility] for outpatient ECHO, With his Vascular Surgeon for right carotid stenosis follow up and with his PCP within 1 month for recheck thyroid function studies.
--- NOTE | 2023-11-03 15:45 | CM.DCFOLLOWU ---
Phone number has been changed or disconnected, 11/03/23
== END 2023-10-31 12:35 | disposition home or self-care (01) ==
LOC: ER 18:33 → MS 18:46
PROVIDERS: Nurse Practitioner Acute Care; Physician Assistant; Admitting Provider Family Medicine; Emergency Provider Emergency Medicine; PCP Nurse Practitioner Primary Care; Visit Provider Family Medicine
DX: R55 Syncope and collapse (principal); I65.23 Occlusion and stenosis of bilateral carotid arteries; E78.5 Hyperlipidemia, unspecified; I10 Essential (primary) hypertension; G30.9 Alzheimer's disease, unspecified; F02.A11 Dementia in other diseases classified elsewhere, mild, with agitation; E03.9 Hypothyroidism, unspecified; Z98.890 Other specified postprocedural states; Z79.82 Long term (current) use of aspirin; Z79.899 Other long term (current) drug therapy
CPT/HCPCS: 36415; 70450; 70496; 70498; 70551; 71045; 80053; 80061; 81001; 82947; 83036; 84443; 84484; 85025; 85610; 93005; 93880; 96361; 96372; 96374; 99285; G0378; Q9967

== ENCOUNTER 2024-01-01 14:50 | Inpatient (IN) | payer MEDICARE, OTHER, SELFPAY ==
[2024-01-01 14:54] VITALS: BP 141/70; PULSE 69; TEMP 36.7; O2SAT 100; BMI 24.4
--- NOTE | 2024-01-01 15:04 | CT_ITS ---
[address] [address] Patient Name: FAITH OLIVIER MRN: [id number] date: 1945 Sex: M Assigned Patient Location: ER Current Patient Location: Accession/Order Number: [id number] Exam Date: 01/01/2024 16:00 Report Date: 01/01/2024 16:38 At the request of: BALTAZAR ROA Procedure: CT abdomen pelvis w con EXAMINATION: CT abdomen pelvis w con HISTORY: Gross hematuria ; urinary catheter placement 4 days ago COMPARISON: No relevant comparison available. TECHNIQUE: Axial, Coronal, and Sagittal images were obtained without and/or with IV contrast as indicated by examination type. Dose reduction techniques were achieved by using automated exposure control and/or adjustment of mA and/or kV according to patient size and/or use of iterative reconstruction technique. FINDINGS: LUNG BASES: No visible pulmonary or pleural disease. LIVER: No enlargement, atrophy, suspicious density, or significant focal lesion. BILIARY: Nondistended gallbladder with mild wall thickening. PANCREAS: No lesion, fluid collection, or abnormal duct dilatation. SPLEEN: No enlargement or focal lesion. ADRENALS: No mass or enlargement. KIDNEYS: No mass, obstruction, or calcification. BOWEL/MESENTERY: No visible mass, obstruction, or bowel wall thickening. AORTA/VASCULAR: No aneurysm or dissection. RETROPERITONEUM: No mass or adenopathy. LYMPH NODES: No adenopathy. URINARY BLADDER: No visible focal wall thickening, lesion, or calculus. PELVIC ORGANS: Valero catheter within urinary bladder and small amount of free air likely from catheter insertion. Irregular hyperdensities within dependent aspect of bladder, possibly clotted blood products. Thin area of hyperdensity adjacent the anterior roof of the urinary bladder adjacent the tip of the Valero catheter; blood products versus site of bleeding versus mass. ABDOMINAL WALL: No mass or hernia. BONES: Moderate to marked degenerative disc disease of lumbar spine resulting in central canal and foraminal stenosis. No bony lesion or fracture. OTHER: Negative. CT/CT abdomen pelvis w con IMPRESSION: 1. Irregular dense material within the urinary bladder which likely represents clotted blood products given patient's history, however, an underlying mass cannot be excluded. Follow-up ultrasound evaluation of the urinary bladder is recommended. 2. The gallbladder is nondistended, but there appears to be slightly irregular wall thickening. Cholecystitis? Electronically authenticated by: RAZA WEIR Date: 01/01/2024 16:38
--- OUTSIDE RECORDS SUMMARY | 2024-01-01 15:04 | XMS_ITS | CCD ---
Author Organization [facility] Care Team Providers Care Power Transformer Assembler Name Role Phone Candace Burleson Primary Care Provider UNKNOWN, PHYSICIAN Referring Unavailable CANDACE BURLESON Primary Care Unavailable KENYATTA MORA Attending Unavailable KENYATTA MORA Admitting Unavailable Luxor HOB MILL OPERATOR - FLOOR SUPERVISOR, Candace Medina Primary Care Provider CANDACE BURLESON Primary Care Physician [phone] Bree HOB MILL [facility] Care Provider Bree HOB MILL OPERATORAliya Medina Primary Care Provider MD Christiano Baer Attending Provider [phone] LEÓN, DR AGUERO Admitting Unavailable ELTAHAWY, DR AGUERO Attending Unavailable [facility] [place] ATKINSON Consulting Unavailable ELTAHAWY, DR AGUERO Consulting Unavailable PORTER Burleson Primary Care Provider DO Leonides Dyer Emergency Provider [phone] STELLA TSE Attending Unavailable CANDACE BURLESON Primary Care Unavailable Chintan CHAVEZ Attending Unavailable Chintan CHAVEZ Attending Unavailable BREE CANDACE Primary Care Unavailable Leonides Dyer Admitting Unavailable Bree Candace M Primary Care Unavailable Leonides Dyer Attending Unavailable BREE CANDACE M Primary Care Unavailable BREE CANDACE M Referring Unavailable ELTAHAWYDIONISIOAB A Referring Unavailable BREE, CANDACE M Primary Care Unavailable BREE, CANDACE M Attending Unavailable BREE, CANDACE M Primary Care Unavailable BREE, CANDACE M Referring Unavailable BREE, CANDACE M Primary Care Unavailable BREE, CANDACE M Referring Unavailable CARLOS MANUEL GARCIA Attending Unavailable BREE CANDACE M Primary Care Unavailable CARLOS MANUEL GARCIA Admitting Unavailable CARLOS MANUEL GARCIA Attending Unavailable АННА BROWER Consulting Unavailable IRISH SCHRADER Consulting Unavailable JARETH FIGUEROA Attending Unavailable CANDACE BURLESON Primary Care Unavailable Allergies Allergy Classification Reported Allergen(s) Allergy Type Date of Onset Reaction(s) Facility NSAIDs (2 sources) Ibuprofen Drug Allergy 4 [facility] (9 sources) NSAIDs Propensity to adverse reactions to drug 4 [place], [place] (5 sources) Shellfish-Derive d Products Propensity to adverse reactions to drug 8 [place], [place] (15 sources) Ibuprofen; Translations: [ibuprofen] Drug Allergy 1 HYPERTENSION [facility] (4 sources) Memantine; Translations: [MEMANTINE] Drug Allergy [address] [facility] (3 sources) NSAIDs; Translations: [NSAIDS (NON-STEROIDAL ANTI-INFLAMMATOR Y DRUG)] Propensity to adverse reactions to drug (disorder) [address] [facility] (1 source) Ibuprofen Drug Allergy 2 [facility] Medications Current Medications Medication Drug Class(es) Dates Sig (Normalized) Sig (Original) aspirin 81 mg delayed release oral tablet (17 sources) Platelet Aggregation Inhibitor, Nonsteroidal Anti-inflammatory Drug Start: 03-07-2020 take 1 tablet by mouth once daily aspirin 81 mg Oral EC Tab 81 mg = 1 tab(s), Oral, Daily, Refills(s) 0 Start Date: 01/13/22 Status: Ordered take 1 tablet by mouth once reid y aspirin 81 MG tablet Indications: Diarrhea Take 81 mg by mouth daily. 0 Active clopidogrel 75 mg oral tablet (1 source) P2Y12 Platelet Inhibitor Start: 12-31-2023 clopidogrel 75 mg Tab Refills(s) 0 Start Date: 12/31/23 Status: Ordered donepezil hydrochloride 5 mg oral tablet (3 sources) Start: 12-31-2023 take 1 tablet by mouth once daily at bedtime donepezil 5 mg Tab TAKE 1 TABLET BY MOUTH EVERY DAY AT BEDTIME FOR 30 DAYS Start Date: 12/31/23 Status: Ordered Start: 06-06-2023 take 10 mg by mouth once daily at bedtime Donepezil Active 10 MG PO Daily at bedtime June 06, 2023 12:00am Start: 02-05-2021 take 1 tablet by mouth once da erick donepezil (ARICEPT) 10 MG tablet Indications: Dizziness , Bilateral carotid artery stenosis , Short-term memory loss Take 1 tablet by mouth nightly Memory loss 30 tablet 1 02/05/2021 Active FLUoxetine 20 mg oral capsule (8 sources) Serotonin Reuptake Inhibitor Start: 03-18-2022 take 1 capsule by mouth once daily FLUoxetine 20 mg Cap TAKE 1 CAPSULE BY MOUTH DAILY Start Date: 09/22/22 Status: Ordered Start: 01-13-2022 take 1 capsule by mo ut in the morning FLUoxetine (PROZAC) 10 MG capsule Take 1 capsule by mouth in the morning. 90 capsule 1 01/13/2022 Active Start: 11-11-2021 take 1 capsule by mo uth once daily FLUoxetine (PROZAC) 10 MG capsule Take 1 capsule by mouth daily 30 capsule 1 11/11/2021 Active Levsin (1 source) Start: 12-31-2023 Levsin Refills(s) 0 Start Date: 12/31/23 Status: Ordered levothyroxine sodium 0.05 mg oral tablet (1 source) l-Thyroxine Start: 12-31-2023 levothyroxine 50 mcg (0.05 mg) Tab Refills(s) 0 Start Date: 12/31/23 Status: Ordered lisinopril 5 mg oral tablet (14 sources) Angiotensin Converting Enzyme Inhibitor Start: 03-07-2020 take 25 mg by mouth once daily at bedtime Lisinopril Active 25 MG PO Daily at bedtime March 06, 2020 11:00pm Start: 09-19-2019 lisinopril 5 m g Tab 5 mg = 1 tab(s), Refills(s) 0 Start Date: 01/14/21 Status: Ordered Start: 08-22-2019 take 0.5 tablet by m outh once daily lisinopril (PRINIVIL;ZESTRIL) 20 MG tablet Indications: Pure hypercholesterolemia Take 0.5 tablets by mouth daily 90 tablet 3 08/22/2019 Active losartan potassium 25 mg oral tablet (2 sources) Angiotensin 2 Receptor Jenifer Start: 09-22-2022 take 1 tablet by mouth once daily losartan 25 mg Tab 25 mg = 1 tab(s), Oral, Daily, # 30 tab(s), Refills(s) 0 Start Date: 09/22/22 Status: Ordered 24 hr metoprolol succinate 25 mg extended release oral tablet (3 sources) beta-Adrenergic Jenifer Start: 02-02-2018 take 1 tablet by mouth once daily metoprolol succinate (TOPROL XL) 25 MG extended release tablet Indications: Pure hypercholesterolemia Take 1 tablet by mouth daily 90 tablet 3 02/02/2018 Active Nirmatrelvir-Ri tonavir (1 source) Start: 06-06-2023 Nirmatrelvir-Ritonavir (Paxlovid) 300 mg (150 mg x 2)-100 mg tablets,dose pack Active 0 PO .COMPLEX 30 June 06, 2023 12:00am take TWO 150 mg tablets of nirmatrelvir with ONE 100 mg tablet of ritonavir twice daily for 5 days predniSONE 20 mg oral tablet (1 source) Start: 07-17-2020 take 2 tablets by mouth once daily at mealtime, then take 1 tablet by mouth once daily predniSONE (DELTASONE) 20 MG tablet Indications: Urticaria Take 2 tabs daily by mouth with food x 5 days then 1 tab daily x 5 days For hives 15 tablet 0 07/17/2020 Active QUEtiapine 25 mg oral tablet (2 sources) Atypical Antipsychotic Start: 06-06-2023 take 25 mg by mouth once daily in the morning Quetiapine Active 25 MG PO Every morning June 06, 2023 12:00am Start: 06-06-2023 take 50 mg by mouth once daily at bedtime Quetiapine Active 50 MG PO Daily at bedtime June 06, 2023 12:00am sildenafil 100 mg oral tablet (17 sources) Phosphodiesterase 5 Inhibitor Start: 01-07-2023 take 1 tablet by mouth once daily as needed sildenafil 100 mg Tab 100 mg = 1 tab(s), Oral, Daily, PRN for erectile dysfunction, 1 hour before sexual activity, # 20 tab(s), Refills(s) 3, Pharmacy: [id number], 185, cm, 01/07/23 10:35:00 EDT, Height/Length Dosing, 80.1, kg, 01/07/23 10:35:00 EDT, Weight Dosing Start Date: 01/07/23 Status: Ordered Start: 09-19-2021 take 1 tablet by lynne th once daily as needed sildenafil (VIAGRA) 100 MG tablet TAKE 1 TABLET BY MOUTH DAILY NEEDED FOR ERECTILE DYSFUNCTION 1 HOUR BEFORE SEXUAL ACTIVITY 0 04/15/2022 Active Start: 03-07-2020 take 75 mg by mouth once daily Sildenafil Active 75 MG PO Daily March 06, 2020 11:00pm Start: 05-15-2016 take 2.5 tablets by mouth once daily sildenafil (REVATIO) 20 MG tablet Take 2.5 tablets by mouth daily 30 tablet 5 05/15/2016 Active simvastatin 40 mg oral tablet (17 sources) HMG-CoA Reductase Inhibitor Start: 08-06-2020 take 0.5 tablet by mouth once daily simvastatin (ZOCOR) 80 MG tablet Indications: Pure hypercholesterolemia Take 0.5 tablets by mouth nightly 90 tablet 3 08/06/2020 Active Start: 03-07-2020 simvastatin 40 mg Tab Refills(s) 0 Start Date: 01/14/21 Status: Ordered Start: 05-19-2018 take 1 tablet by lynne th once daily simvastatin (ZOCOR) 80 MG tablet Indications: Pure hypercholesterolemia Take 1 tablet by mouth nightly 90 tablet 3 05/19/2018 Active tamsulosin hydrochloride 0.4 mg oral capsule (13 sources) alpha-Adrenergic Jenifer Start: 03-07-2020 take 1 capsule by mouth once daily Flomax 0.4 mg Cap 0.4 mg = 1 cap(s), Oral, Daily, # 90 cap(s), Refills(s) 3, Pharmacy: [id number], 185, cm, 01/07/23 10:35:00 EDT, Height/Length Dosing, 80.1, kg, 01/07/23 10:35:00 EDT, Weight Dosing Start Date: 01/07/23 Status: Ordered thiamine 100 mg oral tablet (4 sources) Start: 08-22-2019 take 1 tablet by mouth once daily vitamin B-1 (THIAMINE) 100 MG tablet Indications: Dizziness , Mild alcohol use disorder, in controlled environment , Smooth tongue Take 1 tablet by mouth daily 14 tablet 0 08/22/2019 Active Completed/Discontinued Medications Medication Drug Class(es) Dates Sig (Normalized) Sig (Original) acetaminophen 325 mg / HYDROcodone bitartrate 5 mg oral tablet (3 sources) Opioid Agonist Start: 03-13-2020 End: 04-15-2022 take 1 tablet by mouth every four to six hours Hydrocodone-Acetam inophen ([place]) 5-325 mg tablet Discontinued 1 - 2 TAB PO EVERY 4-6 HOURS 14 March 13, 2020 April 15, 2022 7:23am ibuprofen 600 mg oral tablet (3 sources) Nonsteroidal Anti-inflammatory Drug Start: 03-13-2020 End: 04-15-2022 Ibuprofen Discontinued 600 MG PO EVERY 4-6 HOURS 14 March 12, 2020 11:00pm April 15, 2022 7:23am do not exceed 4 doses in a 24 hour period Problems Active Problems Problem Classification Problem Date Documented Da te Episodic/Chronic Alcohol-related disorders (2 sources) Alcohol abuse; Translations: [Alcohol abuse, uncomplicated] Chronic Cardiac dysrhythmias (1 source) Cardiac arrhythmia, unspecified; Translations: [Cardiac arrhythmia, unspecified] Onset: 12-29-2023 Chronic Complication of device; implant or graft (1 source) Complication associated with genitourinary device; Translations: [Unspecified complication of genitourinary prosthetic device, implant and graft, initial encounter] Onset: 12-31-2023 Episodic Deficiency and other anemia (1 source) Other iron deficiency anemias; Translations: [Other iron deficiency anemias] Onset: 12-01-2023 Episodic Disorders of lipid metabolism (19 sources) Pure hypercholesterolemi a; Translations: [Hyperlipidemia] Onset: 11-11-2012 11-11-2012 Chronic E Codes: Fall (2 sources) Fall; Translations: [Unspecified fall, initial encounter] Episodic Essential hypertension (20 sources) Essential hypertension; Translations: [Hypertensive disorder] Onset: 11-11-2012 11-11-2012 Chronic Genitourinary symptoms and ill-defined conditions (12 sources) Shivam hematuria; Translations: [Nocturia] 01-05-2019 Episodic Headache; including migraine (1 source) Headache; including migraine; Translations: [Headache, unspecified] Onset: 06-06-2023 Heart valve disorders (1 source) Rheumatic disorders of both mitral and aortic valves; Translations: [Rheumatic disorders of both mitral and aortic valves] Onset: 12-02-2023 Chronic Hyperplasia of prostate (8 sources) Benign prostatic hypertrophy with outflow obstruction; Translations: [Benign prostatic hyperplasia with lower urinary tract symptoms] Onset: 01-13-2022 Chronic Miscellaneous mental health disorders (3 sources) Male erectile disorder; Translations: [Erectile dysfunction] Onset: 01-13-2022 Chronic Nutritional deficiencies (1 source) Vitamin D deficiency, unspecified; Translations: [Vitamin D deficiency, unspecified] Onset: 04-27-2023 Chronic Occlusion or stenosis of precerebral arteries (3 sources) Bilateral stenosis of carotid arteries; Translations: [Occlusion and stenosis of bilateral carotid arteries] Onset: 12-29-2023 Chronic Osteoarthritis (4 sources) Arthritis 01-05-2019 Chronic Other diseases of kidney and ureters (2 sources) Urinary tract obstruction; Translations: [Other obstructive and reflux uropathy] Onset: 01-13-2022 Episodic Other gastrointestinal disorders (2 sources) Stool DNA-based colorectal cancer screening positive; Translations: [Other fecal abnormalities] 04-15-2022 Episodic Other gastrointestinal disorders (1 source) Other fecal abnormalities; Translations: [Abnormal feces] 04-15-2022 Episodic Other male genital disorders (8 sources) Impotence 01-05-2019 Chronic Residual codes; unclassified (1 source) Poor short-term memory ; Translations: [Other amnesia] Episodic Residual codes; unclassified (1 source) Pain, unspecified; Translations: [Pain, unspecified] Onset: 10-31-2023 Episodic Screening and history of mental health and substance abuse codes (2 sources) Ex-smoker 01-07-2023 Episodic Spondylosis; intervertebral disc disorders; other back problems (1 source) Acute low back pain; Translations: [Acute midline low back pain without sciatica] Episodic Thyroid disorders (1 source) Hypothyroidism, unspecified; Translations: [Hypothyroidism, unspecified] Onset: 12-01-2023 Chronic Transient cerebral ischemia (1 source) Carotid artery syndrome (hemispheric); Translations: [Carotid artery syndrome (hemispheric)] Onset: 11-12-2023 Chronic Unclassified (2 sources) Patient encounter status; Translations: [Screening for thyroid disorder] Unclassified (2 sources) Body mass index 20-24 - normal 01-07-2023 Unclassified (1 source) Cough, unspecified; Translations: [Cough, unspecified] Onset: 06-06-2023 Unclassified (1 source) CAROTID STENOSIS RIGHT Onset: 12-29-2023 Viral infection (1 source) Disease caused by 2019-nCoV; Translations: [COVID-19] 06-06-2023 Episodic Past or Other Problems Problem Classification Problem Date Documented Da te Episodic/Chronic Conditions associated with dizziness or vertigo (6 sources) Dizziness; Translations: [Dizziness and giddiness] Onset: 06-06-2023 Episodic Diseases of mouth; excluding dental (2 sources) Atrophy of tongue papillae; Translations: [Atrophy of tongue papillae] Onset: 04-27-2023 Episodic Other screening for suspected conditions (not mental disorders or infectious disease) (3 sources) Patient encounter status; Translations: [Encounter for screening for malignant neoplasm of prostate] Onset: 03-16-2023 Episodic Results Test Name Value Interpretation Reference Range Facility BASIC METABOLIC PANLon 12-29 Anion gap [Moles/Vol] 8 mmol/L Normal 5-15 [facility] Comment on above: Performed By: #### C BCA, PINR, 51473-5, BMP #### [facility] ([id number]) [address], [address] [place] [address] Calcium [Mass/Vol] 8.3 mg/dL Low 8.5-10.5 [facility] Comment on above: Performed By: #### C BCA, PINR, 32667-3, BMP #### [facility] ([id number]) [address], [address] [place] [address] Chloride [Moles/Vol] 110 mmol/L High 98-109 [facility] Comment on above: Performed By: #### C BCA, PINR, 09504-7, BMP #### [facility] ([id number]) [address], [address] [place] [address] CO2 [Moles/Vol] 22 mmol/L Normal 22-32 [facility] Comment on above: Performed By: #### C BCA, PINR, 61338-4, BMP #### [facility] ([id number]) [address], [address] [place] [address] Creatinine [Mass/Vol] 0.76 mg/dL Normal 0.60-1.30 [facility] Comment on above: Result Comment: METH OD TRACEABLE TO IDMS STANDARD Performed By: #### C BCA, PINR, 42758-9, BMP #### [facility] ([id number]) [address], [address] [place] [address] eGFR (CKD-EPI) NON-RACE DEPENDENT >90 Normal >59 [facility] Comment on above: Result Comment: Reported eGFR is based on the CKD-EPI 2020 equation that does not use a race coefficient. Performed By: #### C SHIN PINR, 25613-4, BMP #### [facility] ([id number]) [address], [address] [place] [address] Glucose [Mass/Vol] 109 mg/dL High 65-99 [facility] Comment on above: Performed By: #### C SHIN PINR, 89534-7, BMP #### [facility] ([id number]) [address], [address] [place] [address] Potassium [Moles/Vol] 4.1 mmol/L Normal 3.5-5.0 [facility] Comment on above: Performed By: #### C SHIN, PINR, 29934-4, BMP #### [facility] ([id number]) [address], [address] [place] [address] Sodium [Moles/Vol] 140 mmol/L Normal 134-146 [facility] Comment on above: Performed By: #### C SHIN PINR, 91951-9, BMP #### [facility] ([id number]) [address], [address] [place] [address] Urea nitrogen [Mass/Vol] 15 mg/dL Normal 5-27 [facility] Comment on above: Performed By: #### C SHIN PINR, 33440-5, BMP #### [facility] ([id number]) [address], [address] [address] COMPLETE BLOOD COUNTon 12-29 Erythrocyte distribution width (RBC) [Ratio] 13.6 % Normal 11.5-15.0 [facility] Comment on above: Performed By: #### C SHIN PINR, 66355-7, BMP #### [facility] ([id number]) [address], [address] [place] [address] Hematocrit (Bld) [Volume fraction] 32.3 % Low 39-49 [facility] Comment on above: Performed By: #### C SHIN PINR, 25256-8, BMP #### [facility] ([id number]) [address], [address] [place] [address] Hemoglobin (Bld) [Mass/Vol] 11.0 g/dL Low 13.0-17.0 [facility] Comment on above: Performed By: #### C SHIN PINR, 60575-4, BMP #### [facility] ([id number]) [address] [place] [address] MCH (RBC) [Entitic mass] 32.7 pg Normal 27-34 [facility] Comment on above: Performed By: #### C SHIN PINR, 73789-7, BMP #### [facility] ([id number]) [address] [place] [address] MCHC (RBC) [Mass/Vol] 34.1 g/dL Normal 32-36 [facility] Comment on above: Performed By: #### C SHIN PINR, 55551-3, BMP #### [facility] ([id number]) [address] [place] [address] MCV (RBC) [Entitic vol] 96 fL Normal 80-100 [facility] Comment on above: Performed By: #### C SHIN PINR, 84469-4, BMP #### [facility] ([id number]) [address] [place] [address] Platelet mean volume (Bld) [Entitic vol] 7.9 fL Normal 7-12 [facility] Comment on above: Performed By: #### C SHIN PINR, 25323-1, BMP #### [facility] ([id number]) [address], [address] [place] [address] Platelets (Bld) [#/Vol] 192 10*3/uL Normal 150-450 [facility] Comment on above: Performed By: #### C BCA, PINR, 51918-4, BMP #### [facility] ([id number]) [address], [address] [place] [address] RBC COUNT 3.37 X10E12/L Low 4.10-5.70 [facility] Comment on above: Performed By: #### C BCA, PINR, 26725-6, BMP #### [facility] ([id number]) [address], [address] [place] [address] WBC (Bld) [#/Vol] 8.6 10*3/uL Normal 4.0-11.0 [facility] Comment on above: Performed By: #### C BCA, PINR, 50023-3, BMP #### [facility] ([id number]) [address] [place] [address] TSH WITH REFLEXon 12-30-2023 TSH 1.69 uIU/mL Normal 0.49-4.67 [facility] Comment on above: Performed By: #### C BCA, PINR, 79401-1, BMP #### [facility] ([id number]) [address], [address] [place] [address] BASIC METABOLIC PANLon 12-28 Anion gap [Moles/Vol] 9 mmol/L Normal 5-15 [facility] Comment on above: Performed By: #### [place], 560[address]-8 #### [facility] ([id number]) [address], [address] [place] [address] Calcium [Mass/Vol] 8.2 mg/dL Low 8.5-10.5 [facility] Comment on above: Performed By: #### Kelly ROQUE, #### [facility] ([id number]) [address], [address] [place] [address] Chloride [Moles/Vol] 109 mmol/L Normal 98-109 [facility] Comment on above: Performed By: #### Kelly ROQUE, #### [facility] ([id number]) [address], [address] [place] [address] CO2 [Moles/Vol] 22 mmol/L Normal 22-32 [facility] Comment on above: Performed By: #### Kelly ROQUE, #### [facility] ([id number]) [address] [place] [address] Creatinine [Mass/Vol] 0.82 mg/dL Normal 0.60-1.30 [facility] Comment on above: Result Comment: METH OD TRACEABLE TO IDMS STANDARD Performed By: #### Kelly ROQUE, #### [facility] ([id number]) [address] [place] [address] GFR/1.73 sq M.predicted among non-blacks MDRD (S/P/Bld) [Vol rate/Area] 90 mL/min/{1.73_m2} Normal >59 [facility] Comment on above: Result Comment: Reported eGFR is based on the CKD-EPI 2020 equation that does not use a race coefficient. Performed By: #### Kelly ROQUE, #### [facility] ([id number]) [address], [address] [place] [address] Glucose [Mass/Vol] 131 mg/dL High 65-99 [facility] Comment on above: Performed By: #### Kelly ROQUE, #### [facility] ([id number]) [address], [address] [place] [address] Potassium [Moles/Vol] 3.8 mmol/L Normal 3.5-5.0 [facility] Comment on above: Performed By: #### B JUDE, 46247-6 #### [facility] ([id number]) [address] [place] [address] Sodium [Moles/Vol] 140 mmol/L Normal 134-146 [facility] Comment on above: Performed By: #### Kelly ROQUE, 98770-2 #### [facility] ([id number]) [address] [place] [address] Urea nitrogen [Mass/Vol] 18 mg/dL Normal 5-27 [facility] Comment on above: Performed By: #### Kelly ROQUE, 77733-8 #### [facility] ([id number]) [address] [place] [address] Anion gap [Moles/Vol] 8 mmol/L Normal 5-15 [facility] Comment on above: Performed By: #### C BCA, PINR, 77134-0, BMP #### [facility] ([id number]) [address] [place] [address] Calcium [Mass/Vol] 9.2 mg/dL Normal 8.5-10.5 [facility] Comment on above: Performed By: #### C BCA, PINR, 74226-3, BMP #### [facility] ([id number]) [address] [place] [address] Chloride [Moles/Vol] 108 mmol/L Normal 98-109 [facility] Comment on above: Performed By: #### C BCA, PINR, 73022-4, BMP #### [facility] ([id number]) [address] [place] [address] CO2 [Moles/Vol] 25 mmol/L Normal 22-32 [facility] Comment on above: Performed By: #### C BCA, PINR, 35005-0, BMP #### [facility] ([id number]) [address], [address] [place] [address] Creatinine [Mass/Vol] 0.93 mg/dL Normal 0.60-1.30 [facility] Comment on above: Result Comment: METH OD TRACEABLE TO IDMS STANDARD Performed By: #### C BCA, PINR, 16085-2, BMP #### [facility] ([id number]) [address], [facility] [address] [place] [address] GFR/1.73 sq M.predicted among non-blacks MDRD (S/P/Bld) [Vol rate/Area] 84 mL/min/{1.73_m2} Normal >59 [facility] Comment on above: Result Comment: Reported eGFR is based on the CKD-EPI 2020 equation that does not use a race coefficient. Performed By: #### C BCA, PINR, 91453-7, BMP #### [facility] ([id number]) [address], [address] [place] [address] Glucose [Mass/Vol] 107 mg/dL High 65-99 [facility] Comment on above: Performed By: #### C BCA, PINR, 81972-1, BMP #### [facility] ([id number]) [address] [address] [place] [address] Potassium [Moles/Vol] 3.9 mmol/L Normal 3.5-5.0 [facility] Comment on above: Performed By: #### C BCA, PINR, 36662-5, BMP #### [facility] ([id number]) [address] [address] [place] [address] Sodium [Moles/Vol] 141 mmol/L Normal 134-146 [facility] Comment on above: Performed By: #### C BCA, PINR, 30278-6, BMP #### [facility] ([id number]) [address], [address] [place] [address] Urea nitrogen [Mass/Vol] 19 mg/dL Normal 5-27 [facility] Comment on above: Performed By: #### C SHIN, PINR, 51277-7, BMP #### [facility] ([id number]) [address] [place] [address] CBC AND AUTO DIFFon 12-29-19 24 ABSOLUTE BASOPHIL 0.0 X10E9/L Normal 0.0-0.2 [facility] Comment on above: Performed By: #### C BCA #### [facility] ([id number]) [address] [place] [address] ABSOLUTE NEUTROPHIL 6.6 X10E9/L Normal 1.5-6.6 [facility] Comment on above: Performed By: #### C BCA #### [facility] ([id number]) [address] [place] [address] Basophils/100 WBC (Bld) 0.3 % Normal [facility] Comment on above: Performed By: #### C BCA #### [facility] ([id number]) [address] [place] [address] Eosinophils (Bld) [#/Vol] 0.0 10*3/uL Normal 0.0-0.4 [facility] Comment on above: Performed By: #### C BCA #### [facility] ([id number]) [address] [place] [address] Eosinophils/100 WBC (Bld) 0.4 % Normal [facility] Comment on above: Performed By: #### C BCA #### [facility] ([id number]) [address], [address] [place] [address] Erythrocyte distribution width (RBC) [Ratio] 13.3 % Normal 11.5-15.0 [facility] Comment on above: Performed By: #### C BCA #### [facility] ([id number]) [address], [address] [place] [address] Hematocrit (Bld) [Volume fraction] 32.8 % Low 39-49 [facility] Comment on above: Performed By: #### C BCA #### [facility] ([id number]) [address], [address] [place] [address] Hemoglobin (Bld) [Mass/Vol] 11.1 g/dL Low 13.0-17.0 [facility] Comment on above: Performed By: #### C BCA #### [facility] ([id number]) [address], [address] [place] [address] Lymphocytes (Bld) [#/Vol] 0.8 10*3/uL Low 1.0-3.5 [facility] Comment on above: Performed By: #### C BCA #### [facility] ([id number]) [address], [address] [place] [address] Lymphocytes/100 WBC (Bld) 10.4 % Normal [facility] Comment on above: Performed By: #### C BCA #### [facility] ([id number]) [address], [address] [place] [address] MCH (RBC) [Entitic mass] 32.3 pg Normal 27-34 [facility] Comment on above: Performed By: #### C BCA #### [facility] ([id number]) [address] [place] [address] MCHC (RBC) [Mass/Vol] 33.8 g/dL Normal 32-36 [facility] Comment on above: Performed By: #### C BCA #### [facility] ([id number]) [address] [place] [address] MCV (RBC) [Entitic vol] 95 fL Normal 80-100 [facility] Comment on above: Performed By: #### C BCA #### [facility] ([id number]) [address] [place] [address] Monocytes (Bld) [#/Vol] 0.3 10*3/uL Normal 0-0.9 [facility] Comment on above: Performed By: #### C BCA #### [facility] ([id number]) [address] [place] [address] Monocytes/100 WBC (Bld) 3.8 % Normal [facility] Comment on above: Performed By: #### C BCA #### [facility] ([id number]) [address] [place] [address] Neutrophils/100 WBC (Bld) 85.1 % Normal [facility] Comment on above: Performed By: #### C BCA #### [facility] ([id number]) [address] [place] [address] Platelet mean volume (Bld) [Entitic vol] 7.6 fL Normal 7-12 [facility] Comment on above: Performed By: #### C BCA #### [facility] ([id number]) [address] [place] [address] Platelets (Bld) [#/Vol] 170 10*3/uL Normal 150-450 [facility] Comment on above: Performed By: #### C BCA #### [facility] ([id number]) [address] [place] [address] RBC COUNT 3.44 X10E12/L Low 4.10-5.70 [facility] Comment on above: Performed By: #### C BCA #### [facility] ([id number]) [address] [place] [address] WBC (Bld) [#/Vol] 7.7 10*3/uL Normal 4.0-11.0 [facility] Comment on above: Performed By: #### C BCA #### [facility] ([id number]) [address] [place] [address] ABSOLUTE BASOPHIL 0.0 X10E9/L Normal 0.0-0.2 [facility] Comment on above: Performed By: #### C SHIN, PINR, 16366-7, BMP #### [facility] ([id number]) [address], [address] [place] [address] ABSOLUTE NEUTROPHIL 2.6 X10E9/L Normal 1.5-6.6 [facility] Comment on above: Performed By: #### C SHIN, PINR, 54044-5, BMP #### [facility] ([id number]) [address], [address] [place] [address] Basophils/100 WBC (Bld) 0.6 % Normal [facility] Comment on above: Performed By: #### C SHIN, PINR, 60564-4, BMP #### [facility] ([id number]) [address], [address] [place] [address] Eosinophils (Bld) [#/Vol] 0.0 10*3/uL Normal 0.0-0.4 [facility] Comment on above: Performed By: #### C SIHN, PINR, 06542-0, BMP #### [facility] ([id number]) [address] [place] [address] Eosinophils/100 WBC (Bld) 1.0 % Normal [facility] Comment on above: Performed By: #### C SHIN, PINR, 77500-9, BMP #### [facility] ([id number]) [address], [address] [place] [address] Erythrocyte distribution width (RBC) [Ratio] 13.4 % Normal 11.5-15.0 [facility] Comment on above: Performed By: #### C SHIN PINR, 30470-3, BMP #### [facility] ([id number]) [address] [place] [address] Hematocrit (Bld) [Volume fraction] 41.5 % Normal 39-49 [facility] Comment on above: Performed By: #### C SHIN PINR, 13966-7, BMP #### [facility] ([id number]) [address] [place] [address] Hemoglobin (Bld) [Mass/Vol] 13.9 g/dL Normal 13.0-17.0 [facility] Comment on above: Performed By: #### C SHIN PINR, 65691-1, BMP #### [facility] ([id number]) [address] [place] [address] Lymphocytes (Bld) [#/Vol] 1.2 10*3/uL Normal 1.0-3.5 [facility] Comment on above: Performed By: #### C SHIN PINR, 26518-4, BMP #### [facility] ([id number]) [address] [place] [address] Lymphocytes/100 WBC (Bld) 28.0 % Normal [facility] Comment on above: Performed By: #### [employer] PINR, 60115-7, BMP #### [facility] ([id number]) [address] [place] [address] MCH (RBC) [Entitic mass] 32.3 pg Normal 27-34 [facility] Comment on above: Performed By: #### C SHIN PINR, 71336-6, BMP #### [facility] ([id number]) [address] [place] [address] MCHC (RBC) [Mass/Vol] 33.6 g/dL Normal 32-36 [facility] Comment on above: Performed By: #### C BCA, PINR, 09229-0, BMP #### [facility] ([id number]) [address] [place] [address] MCV (RBC) [Entitic vol] 96 fL Normal 80-100 [facility] Comment on above: Performed By: #### C BCA, PINR, 82773-8, BMP #### [facility] ([id number]) [address] [place] [address] Monocytes (Bld) [#/Vol] 0.4 10*3/uL Normal 0-0.9 [facility] Comment on above: Performed By: #### C BCA, PINR, 13512-3, BMP #### [facility] ([id number]) [address] [place] [address] Monocytes/100 WBC (Bld) 10.3 % Normal [facility] Comment on above: Performed By: #### C BCA, PINR, 42363-9, BMP #### [facility] ([id number]) [address] [place] [address] Neutrophils/100 WBC (Bld) 60.1 % Normal [facility] Comment on above: Performed By: #### C BCA, PINR, 28871-4, BMP #### [facility] ([id number]) [address], [address] [place] [address] Platelet mean volume (Bld) [Entitic vol] 7.5 fL Normal 7-12 [facility] Comment on above: Performed By: #### C BCA, PINR, 81026-1, BMP #### [facility] ([id number]) [address] [place] [address] Platelets (Bld) [#/Vol] 197 10*3/uL Normal 150-450 [facility] Comment on above: Performed By: #### C SHIN, PINR, 74485-7, BMP #### [facility] ([id number]) [address], [address] [place] [address] RBC COUNT 4.31 X10E12/L Normal 4.10-5.70 [facility] Comment on above: Performed By: #### C SHIN, PINR, 03606-1, BMP #### [facility] ([id number]) [address] [facility] [address] [place] [address] WBC (Bld) [#/Vol] 4.3 10*3/uL Normal 4.0-11.0 [facility] Comment on above: Performed By: #### C SHIN, PINR, 03805-0, BMP #### [facility] ([id number]) [address] [place] [address] Calcium.ionized (Bld) [Mass/ Vol]on 12-29-2023 IONIZED CALCIUM 4.5 mg/dL Normal 4.5-5.3 [facility] Comment on above: Performed By: #### 3 8230-9 #### [facility] ([id number]) [address] [place] [address] HGB AND HCTon 12-29-2023 Hematocrit (Bld) [Volume fraction] 31.6 % Low 39-49 [facility] Comment on above: Performed By: #### C SHIN, PINR, 86586-6, BMP #### [facility] ([id number]) [address], [address] [place] [address] Hemoglobin (Bld) [Mass/Vol] 11.2 g/dL Low 13.0-17.0 [facility] Comment on above: Performed By: #### C SHIN, PINR, 11717-9, BMP #### [facility] ([id number]) [address] [place] [address] MAGNESIUMon 12-29-2023 Magnesium [Mass/Vol] 2.1 mg/dL Normal 1.8-2.6 [facility] Comment on above: Performed By: #### [place], [address]-7 #### [facility] ([id number]) [address] [place] [address] Magnesium Ionized ISE (Bld) [Moles/Vol]on 12-29-2023 Magnesium [Moles/Vol] 0.63 mmol/L Normal 0.45-0.74 [facility] Comment on above: Result Comment: NEW REFERENCE RANGE Performed By: #### 7 3572-0 #### [facility] ([id number]) [address] [place] [address] PROTIME AND INRon 12-29-2023 INR Coag (PPP) [Relative time] 1.0 {INR} Normal 0.8-1.1 [facility] Comment on above: Performed By: #### C SHIN, PINR, 65571-0, BMP #### [facility] ([id number]) [address] [place] [address] PT Coag (PPP) [Time] 12.0 s Normal 9.8-13.2 [facility] Comment on above: Performed By: #### C SHIN, PINR, 48663-7, BMP #### [facility] ([id number]) [address] [place] [address] RAPID CARDIACon 12-29-2023 SHAUNNA'S TEST Normal [facility] Comment on above: Performed By: #### A FAB5 #### [facility] ([id number]) [address] [place] [address] BASE,DEFICIT 2.0 MMOL/L Normal 0.0-2.0 [facility] Comment on above: Performed By: #### A FAB5 #### [facility] ([id number]) [address] [place] [address] Body temperature 98.6 [degF] Normal 37.0 [facility] Comment on above: Performed By: #### A FAB5 #### [facility] ([id number]) [address] [place] [address] Glucose [Mass/Vol] 111 mg/dL High 65-99 [facility] Comment on above: Performed By: #### A FAB5 #### [facility] ([id number]) [address] [place] [address] HCO3 (Bld) [Moles/Vol] 22.4 mmol/L Normal 22-26 [facility] Comment on above: Performed By: #### A FAB5 #### [facility] ([id number]) [address] [place] [address] Hematocrit (Bld) [Volume fraction] 37 % Low 39-49 [facility] Comment on above: Performed By: #### A FAB5 #### [facility] ([id number]) [address] [place] [address] Hemoglobin (Bld) [Mass/Vol] 12.1 g/dL Low 13.0-17.0 [facility] Comment on above: Performed By: #### A FAB5 #### [facility] ([id number]) [address] [place] [address] INSP. O2 CONC. 100 % Normal [facility] Comment on above: Performed By: #### A FAB5 #### [facility] ([id number]) [address] [place] [address] IONIZED CALCIUM 4.6 mg/dL Normal 4.5-5.3 [facility] Comment on above: Performed By: #### A FAB5 #### [facility] ([id number]) [address] [place] [address] Oxygen (Bld) [Partial pressure] 254 mm[Hg] High 80-100 [facility] Comment on above: Performed By: #### A FAB5 #### [facility] ([id number]) [address] [place] [address] Oxygen saturation in Blood 100.4 % Normal >90 [facility] Comment on above: Performed By: #### A FAB5 #### [facility] ([id number]) [address] [place] [address] PCO2 33.9 MMHG Low 35-45 [facility] Comment on above: Performed By: #### A FAB5 #### [facility] ([id number]) [address] [place] [address] pH (Bld) 7.428 [pH] Normal 7.350-7.450 [facility] Comment on above: Performed By: #### A FAB5 #### [facility] ([id number]) [address] [place] [address] Potassium [Moles/Vol] 3.8 mmol/L Normal 3.5-5.0 [facility] Comment on above: Performed By: #### A FAB5 #### [facility] ([id number]) [address] [place] [address] SAMPLE SITE TANGELA Normal [facility] Comment on above: Performed By: #### A FAB5 #### [facility] ([id number]) [address] [place] [address] SAMPLE TYPE Arterial Normal [facility] Comment on above: Performed By: #### A FAB5 #### [facility] ([id number]) [address] [place] [address] aPTT Coag (PPP) [Time]on aPTT Coag (Bld) [Time] 37 s Normal 26-37 Pr [facility] Comment on above: Performed By: #### C BCA, PINR, 64444-1, BMP #### [facility] ([id number]) [address] [facility], [address] [place] [address] Hgb/Hcton 12-01-2023 Hematocrit (Bld) [Volume fraction] 41.3 % Normal 41.0-53.0 [facility] Comment on above: Performed By: #### F EBC, LIPR, FT4 #### [address] [id number] [employer] Operator: Arnav Barnes MD #### HH #### [facility] [address] [place], [place] [address] [employer] Operator: Анна Biswas MD Hemoglobin (Bld) [Mass/Vol] 13.9 g/dL Normal 13.5-17.5 [facility] Comment on above: Performed By: #### F EBC, LIPR, FT4 #### [address] [id number] [employer] Operator: Arnav Barnes MD #### HH #### [facility] [address] [place], [place] [id number] [employer] Operator: Анна Biswas MD Iron Binding Cap.on 12-01-19 24 % Fe Saturation 27 % Normal 20-55 [facility] Comment on above: Performed By: #### F EBC, LIPR, FT4 #### [address] [id number] [employer] Operator: Arnav Barnes MD #### HH #### [facility] [address] [place], [place] [address] [employer] Operator: Анна Biswas MD Iron [Mass/Vol] 79 ug/dL Normal 61-157 [facility] Comment on above: Performed By: #### F EBC, LIPR, FT4 #### [address] [id number] [employer] Operator: Arnav Barnes MD #### HH #### [facility] [address] [place], [place] [address] [employer] Operator: Анна Biswas MD Total Fe Binding Cap 292 ug/dL Normal 250-450 [facility] Comment on above: Performed By: #### F EBC, LIPR, FT4 #### [address] [place], [place] [address] [employer] Operator: Arnav Barnes MD #### HH #### [facility] [address] [place], [place] [address] [employer] Operator: Анна Biswas MD Unbound Fe Bind Cap 213 ug/dL Normal 112-347 [facility] Comment on above: Performed By: #### F EBC, LIPR, FT4 #### [address] [id number] [employer] Operator: Arnav Barnes MD #### HH #### [facility] [address] [place] [address] [employer] Operator: Анна Biswas MD Lipid Profileon 12-01-2023 Cholesterol [Mass/Vol] 151 mg/dL Normal 0-199 [facility] Comment on above: Result Comment: Cholesterol Guidelines: <200 Desirable 200-240 Borderline >240 Undesirable Performed By: #### F EBC, LIPR, FT4 #### [address] [address] [employer] Operator: Arnav Barnes MD #### HH #### [facility] [address] [place], [place] 287[address] [employer] Operator: Анна Biswas MD Cholesterol in HDL [Mass/Vol] 54 mg/dL Normal >40 [facility] Comment on above: Result Comment: HDL Guidelines: <40 Undesirable 40-59 Borderline >59 Desirable Performed By: #### F EBC, LIPR, FT4 #### [facility] [address] [place] [id number] [employer] Operator: Arnav Barnes MD #### HH #### [facility] [address] [place], [place] [id number] [employer] Operator: Анна Biswas MD Cholesterol in LDL [Mass/Vol] 89 mg/dL Normal 0-100 [facility] Comment on above: Result Comment: LDL Guidelines: <100 Desirable 100-129 Near to/above Desirable 130-159 Borderline >159 Undesirable Direct (measured) LDL and calculated LDL are not interchangeable tests. Performed By: #### F EBC, LIPR, FT4 #### [address] [place], [place] 69[address] [employer] Operator: Arnav Barnes MD #### HH #### [facility] [address] [place], [place] 481[address] [employer] Operator: Анна Biswas MD Cholesterol in VLDL [Mass/Vol] 8 mg/dL Normal [facility] Comment on above: Performed By: #### F EBC, LIPR, FT4 #### [address] [place], [place] [address] [employer] Operator: Arnav Barnes MD #### HH #### [facility] [address] [place], [place] [address] [employer] Operator: Анна Biswas MD Cholesterol.total/Ninoska sterol in HDL [Mass ratio] 3.0 {ratio} Normal [facility] Comment on above: Performed By: #### F EBC, LIPR, FT4 #### [address] [place] [address] [employer] Operator: Arnav Barnes MD #### HH #### [facility] [address] [place], [place] [address]893[address] [employer] Operator: Анна Biswas MD Triglyceride [Mass/Vol] 41 mg/dL Normal <150 M [facility] Comment on above: Result Comment: Triglyceride Guidelines: <150 Desirable 150-199 Borderline 200-499 High >499 Very high Based on AHA Guidelines for fasting triglyceride, March 2012. Performed By: #### F EBC, LIPR, FT4 #### [facility] [address] [place], [place] 6507[address] [employer] Operator: Arnav Barnes MD #### HH #### [facility] [address] [place], [place] [address] [employer] Operator: Анна Biswas MD Thyroxine, Freeon 12-01-2023 Thyroxine, Free 1.1 ng/dL Normal 0.92-1.68 [facility] Comment on above: Performed By: #### F EBC, LIPR, FT4 #### [facility] [address] [place], [place] [address]68[address] [employer] Operator: Arnav Barnes MD #### HH #### [facility] [address] [place] [address] [employer] Operator: Анна Biswas MD Outside Recordson 11-03-2023 Outside Records [id number]. [id number] Normal [facility] Office Visiton 08-04-2023 Follow-up visit [id number] [address] 1945 M Date Provider Department Center 08/04/2023 STELLA JANE CARD [facility] Family History Problem Relation Age of Onset Stroke Father Diabetes Father Family Status - Relation Status Age at Father Level of Service:46944 [place] OFFICE/OUTPATIENT ESTABLISHED LOW MDM 20 MIN Reason for Visit and Comments: Hypertension [722178] Hyperlipidemia [182] Normal [facility] Alanine aminotransferase [En zymatic activity/volume] in Serum or PlasmaOrdered By: Leonides Dyer on 06-06-2023 ALT [Catalytic activity/Vol] 23 U/L Normal [facility] Comment on above: Performed By: #### C BC, CMP #### [facility] [address] Albumin [Mass/volume] in Ser um or Plasma by Bromocresol green (BCG) dye binding methoOrdered By: Leonides Manisha on 06-06-2023 Albumin BCG dye [Mass/Vol] 4.3 g/dL 3.5-5.7 [facility] Alkaline phosphatase [Enzyma tic activity/volume] in Serum or PlasmaOrdered By: Leonidescecy Dyer on 06-06-2023 ALP [Catalytic activity/Vol] 42 U/L Normal 34-104 [facility] Comment on above: Performed By: #### C BC, CMP #### [address] Aspartate aminotransferase [ Enzymatic activity/volume] in Serum or PlasmaOrdered By: Leonides Dyer on 06-06-2023 AST [Catalytic activity/Vol] 22 U/L Normal 13-39 [facility] Comment on above: Performed By: #### C BC, CMP #### [address] Automated basophil %Ordered By: Leonides Dyer on 06-06-2023 Basophils/100 WBC (Bld) 0.4 % Normal . [facility] Comment on above: Performed By: #### C BC, CMP #### [address] Automated basophil countOrde red By: Leonides Dyer on 06-06-2023 Basophils (Bld) [#/Vol] 0.0 10*3/uL Normal 0.0-0.2 [facility] Comment on above: Result Comment: PERF ORMED BY: [place] [address] PATHOLOGIST MIRROR INSPECTOR ANNABEL SANON M.D. Performed By: #### C BC, CMP #### [address] Automated blood monocyte cou ntOrdered By: Leonides Dyer on 06-06-2023 Monocytes (Bld) [#/Vol] 1.0 10*3/uL High 0.0-0.8 [facility] Comment on above: Performed By: #### C BC, CMP #### [address] Automated eosinophil %Ordere d By: Leonides Manisha on 06-06-2023 Eosinophils/100 WBC (Bld) 0.2 % Normal . [facility] Comment on above: Performed By: #### C BC, CMP #### [address] Automated eosinophil countOr dered By: Leonides Marinoconstantine on 06-06-2023 Eosinophils (Bld) [#/Vol] 0.0 10*3/uL Normal 0.0-0.45 [facility] Comment on above: Performed By: #### C BC, CMP #### [address] Automated erythrocytes count in urine sediment (number/area)Ordered By: Leonides Manisha on 06-06-2023 RBC Auto (Urine sed) [#/Area] 0-1 [HPF] 0-4 [facility] Automated leukocytes count i n urine sediment (number/area)Ordered By: Leonides Dyer on 06-06-2023 WBC Auto (Urine sed) [#/Area] 1-2 [HPF] 0-4 [facility] Automated monocyte %Ordered By: Leonides Manisha on 06-06-2023 Monocytes/100 WBC (Bld) 20.7 % Normal . [facility] Comment on above: Performed By: #### C BC, CMP #### [address] Automated neutrophil %Ordere d By: Leonides Dyer on 06-06-2023 Neutrophils/100 WBC (Bld) 66.6 % Normal . [facility] Comment on above: Performed By: #### C BC, CMP #### [address] Automated urine color determ inationOrdered By: Leonides Dyer on 06-06-2023 Color (U) Yellow Normal Yellow [facility] Comment on above: Order Comment: Name Collection Type:: Clean-Voided Midstream Performed By: #### A DDONUAPLUS #### [address] Bilirubin Test strip Ql (U)O rdered By: Leonides Dyer on 06-06-2023 Bilirubin Ql (U) Negative Negative [facility] Bilirubin.total [Mass/volume ] in Serum or PlasmaOrdered By: Leonides Dyer on 06-06-2023 Bilirubin [Mass/Vol] 0.5 mg/dL Normal 0.3-1.[address] [facility] Comment on above: Performed By: #### C BC, CMP #### [address] Calcium [Mass/volume] in Ser um or PlasmaOrdered By: Leonides Marinoconstantine on 06-06-2023 Calcium [Mass/Vol] 9.1 mg/dL Normal 8.6-10.3 [facility] Comment on above: Performed By: #### C BC, CMP #### [address] Carbon dioxide, total [Moles /volume] in Serum or PlasmaOrdered By: Leonides Marinoconstantine on 06-06-2023 CO2 [Moles/Vol] 27.5 mmol/L Normal 21.0-31.0 [facility] Comment on above: Performed By: #### C BC, CMP #### [place] [address] [place] Chloride [Moles/volume] in S stephen or PlasmaOrdered By: Leonides Marinoconstantine on 06-06-2023 Chloride [Moles/Vol] 101 mmol/L Normal 98-[address] [facility] Comment on above: Performed By: #### C BC, CMP #### [address] Complete Blood Count Auto Di ffon 06-06-2023 Mean Corpuscular HGB Conc 33.8 g/dL Normal 32.5-35.6 [facility] Comment on above: Performed By: #### C BC, CMP #### [place] [address] [place] Monocytes/100 WBC (Bld) 24.84 % High 0.00-20.00 [facility] Comment on above: Result Comment: For adults in ED, MDW > 20.0 may be associated with a higher risk of sepsis during the first 12 hrs of hospital admission Performed By: #### C BC, CMP #### [address] NRBC% 0.1 /100{WBC} Normal 0-0.5 [facility] Comment on above: Performed By: #### C BC, CMP #### [address] Comprehensive Metabolic Pane ruth 06-06-2023 Albumin [Mass/Vol] 4.3 g/dL Normal 3.5-5.7 [facility] Comment on above: Performed By: #### C BC, CMP #### [address] Creatinine Clr Calc Pharmacy 71.67 Normal [facility] Comment on above: Result Comment: PERF ORMED BY: [place] [address] PATHOLOGIST MIRROR INSPECTOR ANNABEL SANON M.D. Performed By: #### C BC, CMP #### [address] GFR/1.73 sq M.predicted MDRD (S/P/Bld) [Vol rate/Area] mL/min/{1.73_m2} Normal [facility] Comment on above: Performed By: #### C BC, CMP #### [place] [address] [place] Creatinine [Mass/volume] in Serum or PlasmaOrdered By: Leonides Dyer on 06-06-2023 Creatinine [Mass/Vol] 0.96 mg/dL Normal 0.70-1.30 [facility] Comment on above: Performed By: #### C BC, CMP #### [place] [address] [place] Dipstick and Microscopicon 1 Appearance (U) Clear Normal Clear [facility] Comment on above: Order Comment: Name Collection Type:: Clean-Voided Midstream Performed By: #### A DDONUAPLUS #### [facility] [address] [place] [address] [place] Bacteria,Urine 1+ High None Seen [facility] Comment on above: Order Comment: Name Collection Type:: Clean-Voided Midstream Performed By: #### A DDONUAPLUS #### [facility] [address] [place] [address] [place] Bilirubin,Urine Negative Normal Negative The [facility] Comment on above: Order Comment: Name Collection Type:: Clean-Voided Midstream Performed By: #### A DDONUAPLUS #### [place] [address] [place] Glucose Ql (U) Normal Normal Normal [facility] Comment on above: Order Comment: Name Collection Type:: Clean-Voided Midstream Performed By: #### A DDONUAPLUS #### [place] [address] [place] Hyaline Casts,Urine None Seen Normal 0-8 [facility] Comment on above: Order Comment: Name Collection Type:: Clean-Voided Midstream Result Comment: PERF ORMED BY: [place] [address] PATHOLOGIST MIRROR INSPECTOR ANNABEL SANON M.D. Performed By: #### A DDONUAPLUS #### [place] [address] [place] Ketones Ql (U) 1+ High Negative [facility] Comment on above: Order Comment: Name Collection Type:: Clean-Voided Midstream Performed By: #### A DDONUAPLUS #### [place] [address] [place] Leukocyte esterase Test strip Ql (U) Negative Normal Negative [facility] Comment on above: Order Comment: Name Collection Type:: Clean-Voided Midstream Performed By: #### A DDONUAPLUS #### [place] [address] [place] Nitrite,Urine Negative Normal Negative [facility] Comment on above: Order Comment: Name Collection Type:: Clean-Voided Midstream Performed By: #### A DDONUAPLUS #### [place] [address] [place] Occult Blood,Urine Trace High Negative [facility] Comment on above: Order Comment: Name Collection Type:: Clean-Voided Midstream Result Comment: PERF ORMED BY: [place] [address] PATHOLOGIST MIRROR INSPECTOR ANNABEL SANON M.D. Performed By: #### A DDONUAPLUS #### [address] Protein,Urine Negative Normal Negative [facility] Comment on above: Order Comment: Name Collection Type:: Clean-Voided Midstream Performed By: #### A DDONUAPLUS #### [place] [address] [place] RBC LM.HPF (Urine sed) [#/Area] 0 /[HPF] Normal 0-4 [facility] Comment on above: Order Comment: Name Collection Type:: Clean-Voided Midstream Performed By: #### A DDONUAPLUS #### [place] [address] [place] Specificy [place],Urine 1.018 Normal 1.001-1.030 [facility] Comment on above: Order Comment: Name Collection Type:: Clean-Voided Midstream Performed By: #### A DDONUAPLUS #### [place] [address] [place] Squamous Epithelial Cell,Urine None Seen Normal 0-2 [facility] Comment on above: Order Comment: Name Collection Type:: Clean-Voided Midstream Performed By: #### A DDONUAPLUS #### [place] [address] [place] Urobilinogen,Urine Normal Normal Normal [facility] Comment on above: Order Comment: Name Collection Type:: Clean-Voided Midstream Performed By: #### A DDONUAPLUS #### [place] [address] [place] WBC,Urine 1-2 Normal 0-4 [facility] Comment on above: Order Comment: Name Collection Type:: Clean-Voided Midstream Performed By: #### A DDONUAPLUS #### [facility] [address] [address] ECG 12 lead ECGon 06-06-2023 ECG 12 lead ECG [facility] [place] [address] [place] [address] Electrocardiograph Report Signed Patient: Faith Olivier MR#: [id number] 655 : 1945 Acct:[id number] Age/Sex: 78 / M ADM Date: 06/06/23 Loc: ER Room: Type: [facility] ER Attending Dr: Ordering Provider: Leonides Dyer DO Date of Service: 06/06/23 ECG/ECG 12 lead ECG: Dizziness Copies to: Test Reason : Blood Pressure : 167/074 mmHG Vent. Rate : 078 BPM Atrial Rate : 078 BPM P-R Int : 166 ms QRS Dur : 070 ms QT Int : 380 ms P-R-T Axes : 045 064 044 degrees QTc Int : 433 ms Normal sinus rhythm Normal ECG When compared with ECG of 07-MAR-2020 10:25, No significant change was found Confirmed by LEONIDES DYER DO ([id number]) on 06/06/2023 11:12:25 PM Referred By: Electronically Signed By:LEONIDES DYER DO Transcribed By: MUS Signed By Leonides Dyer DO 2312 Normal [facility] Erythrocyte distribution wid th [Ratio] by Automated countOrdered By: Leonides Dyer on 06-06-2023 Erythrocyte distribution width (RBC) [Ratio] 12.9 % Normal 12.0-14.8 [facility] Comment on above: Performed By: #### C BC, CMP #### [facility] [address] [place] [address] [place] Erythrocytes [#/volume] in B lood by Automated countOrdered By: Leonides Dyer on 06-06-2023 RBC (Bld) [#/Vol] 4.13 10*6/uL Normal 3.90-5.60 [facility] Comment on above: Performed By: #### C BC, CMP #### [place] [address] [place] Glucose [Mass/volume] in Ser um or PlasmaOrdered By: Leonides Dyer on 06-06-2023 Glucose [Mass/Vol] 91 mg/dL Normal 70-100 [facility] Comment on above: ADA recommended refe rence rangeRandom Glucose Reference Range is dependent on time and content of last meal. Glucose of more than 200 mg/dL in a nonstressed, ambulatory subject supports the diagnosis of Diabetes Mellitus. Result Comment: [place] om Glucose Reference Range is dependent on time and content of last meal. Glucose of more than 200 mg/dL in a nonstressed, ambulatory subject supports the diagnosis of Diabetes Mellitus. ADA recommended reference range Performed By: #### C BC, CMP #### [address] Hematocrit [Volume Fraction] of Blood by Automated countOrdered By: Leonides Dyer on 06-06-2023 Hematocrit (Bld) [Volume fraction] 39.6 % Normal 38.8-50.0 [facility] Comment on above: Performed By: #### C BC, CMP #### [address] Hemoglobin [Mass/volume] in BloodOrdered By: Leonides Dyer on 06-06-2023 Hemoglobin (Bld) [Mass/Vol] 13.4 g/dL Normal 13.0-17.0 [facility] Comment on above: Performed By: #### C BC, CMP #### [address] Ketones Auto test strip (U) [Mass/Vol]Ordered By: Leonides Dyer on 06-06-2023 Ketones (U) [Mass/Vol] 1+ Negative [facility] - UrinalysisOrder ed By: Leonides Dyer on 06-06-2023 Hyaline casts LM Ql (Urine sed) None seen [LPF] 0-8 [facility] Leukocytes [#/volume] correc hunter for nucleated erythrocytes in Blood by Automated counOrdered By: Leonides Dyer on 06-06-2023 WBC corrected for nucl RBC Auto (Bld) [#/Vol] 4.9 10*3/uL 4.1-10.5 [facility] Leukocytes [#/volume] in Blo od by Automated countOrdered By: Leonides Dyer on 06-06-2023 WBC (Bld) [#/Vol] 4.9 10*3/uL Normal 4.1-10.5 [facility] Comment on above: Performed By: #### C BC, CMP #### [address] Lymphocytes [#/volume] in Bl ood by Automated countOrdered By: Leonides Dyer on 06-06-2023 Lymphocytes (Bld) [#/Vol] 0.6 10*3/uL Low 1.00-4.8 [facility] Comment on above: Performed By: #### C BC, CMP #### [address] Lymphocytes/100 leukocytes i n Blood by Automated countOrdered By: Leonides Dyer on 06-06-2023 Lymphocytes/100 WBC (Bld) 12.1 % Normal . [facility] Comment on above: Performed By: #### C BC, CMP #### [address] MCH [Entitic mass] by Automa hunter countOrdered By: Leonides Dyer on 06-06-2023 MCH (RBC) [Entitic mass] 32.4 pg Normal 27.5-35.2 [facility] Comment on above: Performed By: #### C BC, CMP #### [address] MCHC Auto (RBC) [Mass/Vol]Or dered By: Leonides Dyer on 06-06-2023 MCHC (RBC) [Mass/Vol] 33.8 g/dL 32.5-35.6 [facility] MCV [Entitic volume] by Auto mated countOrdered By: Leonides Dyer on 06-06-2023 MCV (RBC) [Entitic vol] 95.9 fL Normal 83.5-101 [facility] Comment on above: Performed By: #### C DIPIKA, CMP #### [facility] [address] Monocyte distribution width [Entitic volume] in Blood by AutomatedOrdered By: Leonides Dyer on 06-06-2023 Monocyte distribution width Auto (Bld) [Entitic vol] 24.84 % 0.00-20.00 [facility] Comment on above: For adults in ED, MD W > 20.0 may be associated with a higher risk of sepsis during the first 12 hrs of hospital admission Neutrophils [#/volume] in Bl ood by Automated countOrdered By: Leonides Dyer on 06-06-2023 Neutrophils (Bld) [#/Vol] 3.3 10*3/uL Normal 1.8-7.7 [facility] Comment on above: Performed By: #### C DIPIKA, CMP #### [facility] [address] Nitrite Test strip Ql (U)Ord ered By: Leonides Dyer on 06-06-2023 Nitrite Ql (U) Negative Negative [facility] No Panel InformationOrdered By: Leonides Dyer on 06-06-2023 Estimated GFR (CKD-EPI) > 60.0 mL/Min [facility] Creatinine Clearance (Chem 71.67 [facility] Nucleated erythrocytes [Pres ence] in Blood by Automated countOrdered By: Leonides Dyer on 06-06-2023 Nucleated RBC Auto Ql (Bld) 0.1 /100{WBC} 0-0.5 [facility] Platelet mean volume [Entiti c volume] in Blood by Automated countOrdered By: Leonides Dyer on 06-06-2023 Platelet mean volume (Bld) [Entitic vol] 7.4 fL Normal 6.6-10.1 [facility] Comment on above: Performed By: #### C BC, CMP #### [facility] [address] [place] [address] [place] Platelets [#/volume] in Bloo d by Automated countOrdered By: Leonides Dyer on 06-06-2023 Platelets (Bld) [#/Vol] 175 10*3/uL Normal 150-450 [facility] Comment on above: Performed By: #### C BC, CMP #### [address] Potassium [Moles/volume] in Serum or PlasmaOrdered By: Leonides Dyer on 06-06-2023 Potassium [Moles/Vol] 3.8 mmol/L Normal 3.5-5.1 [facility] Comment on above: Performed By: #### C BC, CMP #### [address] Protein Auto test strip (U) [Mass/Vol]Ordered By: Leonides Dyer on 06-06-2023 Protein (U) [Mass/Vol] Negative Negative [facility] Protein [Mass/volume] in Ser um or PlasmaOrdered By: Leonides Dyer on 06-06-2023 Protein [Mass/Vol] 7.5 g/dL Normal 6.4-8.9 [facility] Comment on above: Performed By: #### C BC, CMP #### [address] Serum globulin measurement b y calculation (mass/volume)Ordered By: Leonides Dyer on 06-06-2023 Globulin (S) [Mass/Vol] 3.2 g/dL Normal [facility] Comment on above: Performed By: #### C BC, CMP #### [address] Serum or plasma albumin/glob ulin mass ratioOrdered By: Leonides Dyer on 06-06-2023 Albumin/Globulin [Mass ratio] 1.3 {ratio} Normal [facility] Comment on above: Performed By: #### C BC, CMP #### [address] Serum or plasma anion gap de terminationOrdered By: Leonides Dyer on 06-06-2023 Anion gap [Moles/Vol] 8.3 mmol/L Normal 6.0-15.0 [facility] Comment on above: Performed By: #### C BC, CMP #### [address] [place] [address] [place] Sodium [Moles/volume] in Ser um or PlasmaOrdered By: Leonides Dyer on 06-06-2023 Sodium [Moles/Vol] 133 mmol/L Low 136-145 [facility] Comment on above: Performed By: #### C DIPIKA, CMP #### [facility] [address] [place] [id number] [place] Specific gravity Auto test s trip (U) [Rel density]Ordered By: Leonides Dyer on 06-06-2023 Specific gravity (U) [Rel density] 1.018 1.001-1.030 [facility] Squamous epithelial cells de tection in urine sediment by light microscopyOrdered By: Leonides Dyer on 06-06-2023 Epithelial cells.squamous LM Ql (Urine sed) None seen [HPF] 0-2 [facility] Urea nitrogen [Mass/volume] in Serum or PlasmaOrdered By: Leonides Dyer on 06-06-2023 Urea nitrogen [Mass/Vol] 16 mg/dL Normal 7-25 [facility] Comment on above: Performed By: #### C DIPIKA, CMP #### [facility] [address] [place] [id number] [facility] Urine bacteria detection by automated methodOrdered By: Leonides Dyer on 06-06-2023 Bacteria Auto Ql (U) 1+ None Seen [facility] Urine clarity by refractomet ry automatedOrdered By: Leonides Dyer on 06-06-2023 Clarity Refractometry automated (U) Clear Clear [facility] Urine glucose measurement by automated test strip (mass/volume)Ordered By: Leonides Dyer on 06-06-2023 Glucose Auto test strip (U) [Mass/Vol] Normal mg/dL Normal [facility] Urine hemoglobin detection b y automated test stripOrdered By: Leonides Dyer on 06-06-2023 Hemoglobin Auto test strip Ql (U) Trace Negative [facility] Urine leukocyte esterase det ection by automated test stripOrdered By: Leonides Dyer on 06-06-2023 Leukocyte esterase Auto test strip Ql (U) Negative Negative [facility] Urine pH measurement by auto mated test stripOrdered By: Leonides Dyer on 06-06-2023 pH (U) 5.5 [pH] Normal 5.0-9.0 [facility] Comment on above: Order Comment: Name Collection Type:: Clean-Voided Midstream Performed By: #### A DDONUAPLUS #### [address] Urobilinogen Auto test strip (U) [Mass/Vol]Ordered By: Leonides Dyer on 06-06-2023 Urobilinogen (U) [Mass/Vol] Normal mg/dL Normal [facility] XR chest 2V*on 06-06-2023 XR chest 2V* [facility] [place] [address] [place] [address] XRay Report Signed Patient: Faith Olivier MR#: [id number] 655 : 1945 Acct:[id number] Age/Sex: 78 / M ADM Date: 06/06/23 Loc: ER Room: Type: [facility] ER Attending Dr: Copies to: Leonides Dyer DO Ordering Provider: Leonides Dyer DO Date of Service: 06/06/23 XR/XR chest 2V*: Dizziness Plain film chest 2 view HISTORY: Covid positive today. Headache. COMPARISON: None FINDINGS: SUPPORT DEVICES: None POSTSURGICAL CHANGES: None HEART: Within normal limits PULMONARY RUIZ: Within normal limits MEDIASTINUM: Unremarkable LUNGS AND PLEURA: No acute lung process, pleural effusion or pneumothorax identified. BONY STRUCTURES: Hyperostosis of thoracic spine. ADDITIONAL FINDINGS None XR/XR chest 2V* IMPRESSION: No acute process. Impression dictated by: Tristan Bruce M.D.06/06/2023 7:14 PM Dictation Location: [place] [address] Transcribed By: [facility] 06/06/231913 Dictated By: Tristan Bruce DO 06/06/231912 Signed By: 06/06/231913 Normal [facility] B12/Folate Panelon 3 Cobalamin (Vitamin B12) [Mass/Vol] 673 pg/mL Normal 232-1245 [facility] Comment on above: Performed By: #### B 12FOL, VD25 #### [facility] [place] [address] [place] [address] [employer]locking Tower Operator: Arnav Barnes MD #### CDP #### [facility] [address] [place] [address] [employer]locking [employer] Operator: Анна Biswas MD Folic Acid 15.9 ng/mL Normal >4.8 [facility] Comment on above: Performed By: #### B 12FOL, VD25 #### [address] [address] [employer]locking [employer] Operator: Arnav Barnes MD #### CDP #### [facility] [address] [place] [address] [employer]locking [employer] Operator: Анна Biswas MD CBC with Diffon 04-27-2023 Abs. Basophil 0.02 k/uL Normal 0.00-0.20 [facility] Comment on above: Performed By: #### Kelly 12GAMALIEL, VD25 #### [address] [address] [employer] Operator: Arnav Barnes MD #### CDP #### [facility] [address] [place] [address] [employer]locking Tower Operator: Анна Biswas MD Abs.Imm.Granulocyte 0.01 k/uL Normal 0.00-0.30 [facility] Comment on above: Performed By: #### Kelly 12FOL, VD25 #### [address] [address] [employer] Operator: Arnav Barnes MD #### CDP #### [facility] [address] [place] [address] [employer]locking Tower Operator: Анна Biswas MD Abs.Neutrophil (Seg) 2.87 k/uL Normal 2.1-6.5 [facility] Comment on above: Performed By: #### B 12FOL, VD25 #### [address] [address] [employer]locking [employer] Operator: Arnav Barnes MD #### CDP #### [facility] [address] [place] [address] [employer]locking Tower Operator: Анна Biswas MD Basophils/100 WBC (Bld) 0 % Normal 0-2 M [facility] Comment on above: Performed By: #### B 12FOL, VD25 #### [address] [address] [employer]locking Tower Operator: Arnav Barnes MD #### CDP #### [facility] [address] [place] [address] [employer]locking Tower Operator: Анна Biswas MD Eosinophils (Bld) [#/Vol] 0.06 10*3/uL Normal 0.00-0.40 [facility] Comment on above: Performed By: #### Kelly 12FOL, VD25 #### [address] [address] [employer]locking Tower Operator: Arnav Barnes MD #### CDP #### [facility] [address] [place] [address] [employer]locking Tower Operator: Анна Biswas MD Eosinophils/100 WBC (Bld) 1 % Normal [address] Comment on above: Performed By: #### B 12FOL, VD25 #### [address] [address] [employer]locking Tower Operator: Arnav Barnes MD #### CDP #### [facility] [address] [place] [address] [employer]locking Tower Operator: Анна Biswas MD Immature granulocytes/100 WBC (Bld) 0 % Normal 0-5 [facility] Comment on above: Performed By: #### B 12FOL, VD25 #### [address] [address] [employer]locking Tower Operator: Arnav Barnes MD #### CDP #### [facility] [address] [place] [address] [employer]locking Tower Operator: Анна Biswas MD Lymphocytes (Bld) [#/Vol] 1.60 10*3/uL Normal 1.00-4.80 [facility] Comment on above: Performed By: #### B 12FOL, VD25 #### [address] [phone] [employer] Operator: Arnav Barnes MD #### CDP #### [facility] [address] [place] [address] [employer]locking Tower Operator: Анна Biswas MD Lymphocytes/100 WBC (Bld) 32 % Normal 13-44 [facility] Comment on above: Performed By: #### B 12FOL, VD25 #### [address] [phone] [employer] Operator: Arnav Barnes MD #### CDP #### [facility] [address] [place], [place] [phone] [employer] Operator: Анна Biswas MD Monocytes (Bld) [#/Vol] 0.51 10*3/uL Normal 0.00-1.00 [facility] Comment on above: Performed By: #### B 12FOL, VD25 #### [address] [id number] [employer] Operator: Arnav Barnes MD #### CDP #### [facility] [address] [place], [place] [id number] [employer] Operator: Анна Biswas MD Monocytes/100 WBC (Bld) 10 % High 5-9 M [facility] Comment on above: Performed By: #### B 12FOL, VD25 #### [address] [address] [employer]locking Tower Operator: Arnav Barnes MD #### CDP #### [facility] [address] [place], [place] [phone] [employer]locking [employer] Operator: Анна Biswas MD Neutrophil (Seg) 57 % Normal 39-75 [facility] Comment on above: Performed By: #### B 12FOL, VD25 #### [place] [address] [place], [place] [phone] [employer]locking Tower Operator: Arnav Barnes MD #### CDP #### [facility] [address] [place], [place] [phone] [employer]locking Tower Operator: Анна Biswas MD Erythrocyte distribution width (RBC) [Ratio] 12.8 % Normal 12.1-15.2 [facility] Comment on above: Performed By: #### B 12FOL, VD25 #### [address] [phone] [employer] Operator: Arnav Barnes MD #### CDP #### [facility] [address] [place], [place] [id number] [employer]locking Tower Operator: Анна Biswas MD Hematocrit (Bld) [Volume fraction] 43.9 % Normal 41.0-53.0 [facility] Comment on above: Performed By: #### B 12FOL, VD25 #### [address] [id number] [employer] Operator: Arnav Barnes MD #### CDP #### [facility] [address] [place], [place] [phone] [employer]locking Tower Operator: Анна Biswas MD Hemoglobin (Bld) [Mass/Vol] 14.7 g/dL Normal 13.5-17.5 [facility] Comment on above: Performed By: #### B 12FOL, VD25 #### [address] [phone] [employer] Operator: Arnav Barnes MD #### CDP #### [facility] [address] [place] [address] [employer]locking [employer] Operator: Анна Biswas MD MCH (RBC) [Entitic mass] 31.8 pg Normal 26.0-34.0 [facility] Comment on above: Performed By: #### B 12FOL, VD25 #### [place] [address] [place], [place] [address] [employer] Operator: Arnav Barnes MD #### CDP #### [facility] [address] [place] [address] [employer]locking [employer] Operator: Анна Biswas MD MCHC (RBC) [Mass/Vol] 33.5 g/dL Normal 31.0-37.0 [facility] Comment on above: Performed By: #### B 12FOL, VD25 #### [address] [id number] [employer] Operator: Arnav Barnes MD #### CDP #### [facility] [address] [place] [address] [employer]locking Tower Operator: Анна Biswas MD MCV (RBC) [Entitic vol] 95.0 fL Normal 80.0-100.0 M [facility] Comment on above: Performed By: #### B 12FOL, VD25 #### [address] [phone] [employer] Operator: Arnav Barnes MD #### CDP #### [facility] [address] [place] [address] [employer]locking Tower Operator: Анна Biswas MD Platelet mean volume (Bld) [Entitic vol] 9.0 fL Normal 6.0-12.0 [facility] Comment on above: Performed By: #### B 12FOL, VD25 #### [address] [phone] [employer] Operator: Arnav Barnes MD #### CDP #### [facility] [address] [place] [address] [employer]locking Tower Operator: Анна Biswas MD Platelets (Bld) [#/Vol] 191 10*3/uL Normal 140-450 [facility] Comment on above: Performed By: #### B 12FOL, VD25 #### [address] [address] [employer] Tower Operator: Arnav Barnes MD #### CDP #### [facility] [address] [place] [address] [employer]locking Tower Operator: Анна Biswas MD RBC (Bld) [#/Vol] 4.62 10*6/uL Normal 4.50-5.90 [facility] Comment on above: Performed By: #### B 12FOL, VD25 #### [address] [address] [employer]locking Tower Operator: Arnav Barnes MD #### CDP #### [facility] [address] [place] [address] [employer]locking Tower Operator: Анна Biswas MD WBC (Bld) [#/Vol] 5.1 10*3/uL Normal 3.5-11.0 [facility] Comment on above: Performed By: #### B 12FOL, VD25 #### [address] [address] [employer]locking Tower Operator: Arnav Barnes MD #### CDP #### [facility] [address] [place], [place] [id number] [employer]locking Tower Operator: Анна Biswas MD Vitamin D 25 OHon 04-27-2023 Vitamin D 25 [place] 41.3 ng/mL Normal 30.0-100.0 [facility] Comment on above: Result Comment: Reference Range: Vitamin D status Range Deficiency <20 ng/mL Mild Deficiency 20-30 ng/mL Sufficiency 30-100 ng/mL Toxicity >100 ng/mL Performed By: #### B 12FOL, VD25 #### [facility] [address] [place] [address] [employer]locking Tower Operator: Arnav Barnes MD #### CDP #### [facility] [address] [place] [address] [employer]locking Tower Operator: Анна Biswas MD Comp Metabolic Profon 2022 Albumin [Mass/Vol] 4.2 g/dL Normal 3.5-5.2 [facility] Comment on above: Performed By: #### Shahnaz FAST, CP #### [facility] [address] [place] [address] [employer]locking Tower Operator: Анна Biswas MD #### MARGA, PSAS #### [address] [address] [employer]locking Tower Operator: Arnav Barnes MD Alkaline Phos 50 U/L Normal 40-129 [facility] Comment on above: Performed By: #### Shahnaz FAST, CP #### [facility] [address] [place], [place] [id number] Interlocking Tower Operator: Анна Biswas MD #### MARGA PSAS #### [address] [address] Interlocking Tower Operator: Arnav Barnes MD ALT [Catalytic activity/Vol] 21 U/L Normal 5-41 [facility] Comment on above: Performed By: #### Z FAST, CP #### [facility] [address] [place] [address] Interlocking Tower Operator: Анна iBswas MD #### LIPR, PSAS #### [address] [address] [employer]locking Tower Operator: Arnav Barnes MD Anion gap [Moles/Vol] 8 mmol/L Low 9-17 [facility] Comment on above: Performed By: #### Shahnaz FAST, CP #### [facility] [address] [place], [place] [id number] Interlocking Tower Operator: Анна Biswas MD #### LIPR, PSAS #### [address] [id number] Interlocking Tower Operator: Arnav Barnes MD AST [Catalytic activity/Vol] 20 U/L Normal <40 [facility] Comment on above: Performed By: #### Shahnaz FAST, CP #### [facility] [address] [place], [place] [id number] Interlocking Tower Operator: Анна Biswas MD #### MARGA, PSAS #### [address] [id number] Interlocking Tower Operator: Arnav Barnes MD Bilirubin [Mass/Vol] 0.5 mg/dL Normal 0.3-1.2 [facility] Comment on above: Performed By: #### Shahnaz FAST, CP #### [facility] [address] [place], [place] [id number] [employer]locking Tower Operator: Анна Biswas MD #### MARGA, PSAS #### [address] [id number] Interlocking Tower Operator: Arnav Barnes MD BUN/CRE Ratio 17 Normal 9-20 [facility] Comment on above: Performed By: #### Shahnaz FAST, CP #### [facility] [address] [place], [place] [id number] Interlocking Tower Operator: Анна Biswas MD #### LIPR, PSAS #### [address] [id number] [employer]locking Tower Operator: Arnav Barnes MD Calcium [Mass/Vol] 9.2 mg/dL Normal 8.6-10.4 [facility] Comment on above: Performed By: #### Shahnaz FAST, CP #### [facility] [address] [place] [address] Interlocking Tower Operator: Анна Biswas MD #### LIPR, PSAS #### [address] [place] [address] [employer]locking Tower Operator: Arnav Barnes MD Chloride [Moles/Vol] 104 mmol/L Normal 98-107 [facility] Comment on above: Performed By: #### Z FAST, CP #### [facility] [address] [place] [address] Interlocking Tower Operator: Анна Biswas MD #### LIPR, PSAS #### [address] [id number] [employer]locking Tower Operator: Arnav Barnes MD CO2 [Moles/Vol] 27 mmol/L Normal 20-31 [facility] Comment on above: Performed By: #### Shahnaz FAST, CP #### [facility] [address] [place] [address] Interlocking Tower Operator: Анна Biswas MD #### LIPR, PSAS #### [address] [id number] Interlocking Tower Operator: Arnav Barnes MD Creatinine [Mass/Vol] 1.0 mg/dL Normal 0.7-1.2 [facility] Comment on above: Performed By: #### Shahnaz FAST, CP #### [facility] [address] [place] [address] Interlocking Tower Operator: Анна Biswas MD #### LIPR, PSAS #### [address] [phone] [employer]locking Tower Operator: Arnav Barnes MD GFR/1.73 sq M.predicted among non-blacks MDRD (S/P/Bld) [Vol rate/Area] mL/min/{1.73_m2} Normal >60 [facility] Comment on above: Result Comment: These results are not intended for use in patients <18 years of age. eGFR results are calculated without a race factor using the 2020 CKD-EPI equation. Careful clinical correlation is recommended, particularly when comparing to results calculated using previous equations. The CKD-EPI equation is less accurate in patients with extremes of muscle mass, extra-renal metabolism of creatine, excessive creatine ingestion, or following therapy that affects renal tubular secretion. Performed By: #### Shahnaz FAST, CP #### [facility] [address] [place], [place] [address] Interlocking Tower Operator: Анна Biswas MD #### LIPAndrew, PSAS #### [address] [address] [place], [place] [phone] Interlocking Tower Operator: Arnav Barnes MD Glucose [Mass/Vol] 106 mg/dL High 70-99 [facility] Comment on above: Performed By: #### Shahnaz FAST, CP #### [facility] [address] [place], [place] [phone] Interlocking Tower Operator: Анна Biswas MD #### MARGA, PSAS #### [address] [phone] [employer]locking Tower Operator: Arnav Barnes MD Potassium [Moles/Vol] 4.1 mmol/L Normal 3.7-5.3 [facility] Comment on above: Performed By: #### Shahnaz FAST, CP #### [facility] [address] [place], [place] [phone] Interlocking Tower Operator: Анна Biswas MD #### LIPAndrew, PSAS #### [address] [phone] Interlocking Tower Operator: Arnav Barnes MD Protein [Mass/Vol] 7.0 g/dL Normal 6.4-8.3 [facility] Comment on above: Performed By: #### Z FAST, CP #### [facility] [address] [place], [place] [id number] Interlocking Tower Operator: Анна Biswas MD #### LIPAndrew, PSAS #### [address] [place] [address] Interlocking Tower Operator: Arnav Barnes MD Sodium [Moles/Vol] 139 mmol/L Normal 135-144 [facility] Comment on above: Performed By: #### Shahnaz FAST, CP #### [facility] [address] [place], [place] 8436390 Interlocking Tower Operator: Анна Biswas MD #### LIPR, PSAS #### [address] [address] Interlocking Tower Operator: Arnav Barnes MD Urea nitrogen [Mass/Vol] 17 mg/dL Normal 8-23 [facility] Comment on above: Performed By: #### Shahnaz FAST, CP #### [facility] [address] [place], [place] [phone] Interlocking Tower Operator: Анна Biswas MD #### MARGA, PSAS #### [address] [address] Interlocking Tower Operator: Arnav Barnes MD Lipid Profileon 03-16-2023 Cholesterol [Mass/Vol] 138 mg/dL Normal 0-199 [facility] Comment on above: Result Comment: Cholesterol Guidelines: <200 Desirable 200-240 Borderline >240 Undesirable Performed By: #### B 12FOL, VD25 #### [address] [address] Interlocking Tower Operator: Arnav Barnes MD #### CDP #### [facility] [address] [place], [place] [id number] Interlocking Tower Operator: Анна Biswas MD Cholesterol in HDL [Mass/Vol] 53 mg/dL Normal >40 [facility] Comment on above: Result Comment: HDL Guidelines: <40 Undesirable 40-59 Borderline >59 Desirable Performed By: #### B 12FOL, VD25 #### [address] [address] Interlocking Tower Operator: Arnav Barnes MD #### CDP #### [facility] [address] [place], [place] [phone] Interlocking Tower Operator: Анна Biswas MD Cholesterol in LDL [Mass/Vol] 78 mg/dL Normal 0-100 [facility] Comment on above: Result Comment: LDL Guidelines: <100 Desirable 100-129 Near to/above Desirable 130-159 Borderline >159 Undesirable Direct (measured) LDL and calculated LDL are not interchangeable tests. Performed By: #### B 12FOL, VD25 #### [address] [address] Interlocking Tower Operator: Arnav Barnes MD #### CDP #### [facility] [address] [place], [place] [phone] Interlocking Tower Operator: Анна Biswas MD Cholesterol in VLDL [Mass/Vol] 8 mg/dL Normal [facility] Comment on above: Performed By: #### B 12FOL, VD25 #### [address] [address] Interlocking Tower Operator: Arnav Barnes MD #### CDP #### [facility] [address] [place], [place] [id number] Interlocking Tower Operator: Анна Biswas MD Cholesterol.total/Ninoska sterol in HDL [Mass ratio] 3.0 {ratio} Normal [facility] Comment on above: Performed By: #### B 12FOL, VD25 #### [address] [address] Interlocking Tower Operator: Arnav Barnes MD #### CDP #### [facility] [address] [place], [place] [id number] Interlocking Tower Operator: Анна Biswas MD Triglyceride [Mass/Vol] 38 mg/dL Normal 0-149 [facility] Comment on above: Result Comment: Triglyceride Guidelines: <150 Desirable 150-199 Borderline 200-499 High >499 Very high Based on AHA Guidelines for fasting triglyceride, March 2012. Performed By: #### B 12FOL, VD25 #### [facility] [address] [place], [place] [id number] Interlocking Tower Operator: Arnav Barnes MD #### CDP #### [facility] [address] [place], [place] [phone] Interlocking Tower Operator: Анна Biswas MD PSA, Screeningon 03-16-2023 Prostatic Spec. Ag 3.36 ng/mL Normal <4.1 [facility] Comment on above: Result Comment: The [employer] ECLIA assay is used. Results obtained with different assay methods cannot be used interchangeably. Performed By: #### Z FAST, CP #### [facility] [address] [place], [place] [id number] Interlocking Tower Operator: Анна Biswas MD #### LIPR, PSAS #### [facility] [address] [place], [place] [phone] Interlocking Tower Operator: Arnav Barnes MD Patient fasting?on 3 Patient fasting? YES Normal [facility] Comment on above: Performed By: #### Z FAST, CP #### [facility] [address] [place], [place] [phone] Interlocking Tower Operator: Анна Biswas MD #### LIPR, PSAS #### [facility] [address] [place], [place] [id number] Interlocking Tower Operator: Arnav Barnes MD Screenson 01-08-2023 Screens [id number]. [id number] Normal [facility] Ambulatory Visit Summaryon 0 01-07-2023 Ambulatory Visit Summary FAITH OLIVIER :1945 Visit Date:01/07/2023 Ambulatory Visit Instructions Your Diagnosis BPH with obstruction/lower urinary tract symptoms Impotence Tests Performed Urnls Dip Stick Auto w/o Microscopy POC 20[address] Your Care Team Attending Physician - KATHY HILL, Chintan Mo Primary Care Physician - BREE FLOOR SUPERVISOR, CANDACE This Is Your Medications List sildenafil (sildenafil 100 mg Tab) tamsulosin (Flomax 0.4 mg Cap) Contact prescribing physician if questions or concerns aspirin (aspirin 81 mg Oral EC Tab) fluoxetine (FLUoxetine 20 mg Cap) losartan (losartan 25 mg Tab) simvastatin (simvastatin 40 mg Tab) Procedures Performed Artery procedure (06/08/2020), Bursa, Colonoscopy, Tonsillectomy. Discharge Vitals Heart Rate (Peripheral) 87 Blood Pressure 157/118 Height 185 cm Height 73 in Weight 80.10 kg Weight 176.22 lb BMI 23.4 What to do next Scheduled Follow-Up Appointments Thursday 10:30 AM EDT With: Chintan CHAVEZ MD Where: [facility] Patient Educationon 01-08-20 Patient Education Urology Benign Prostatic Hyperplasia Benign prostatic hyperplasia (BPH) is an enlarged prostate gland that is caused by the normal aging process. The prostate may get bigger as a man gets older. The condition is not caused by cancer. The prostate is a walnut-sized gland that is involved in the production of semen. It is located in front of the rectum and below the bladder. The bladder stores urine. The urethra carries stored urine out of the body. An enlarged prostate can press on the urethra. This can make it harder to pass urine. The buildup of urine in the bladder can cause infection. Back pressure and infection may progress to bladder damage and kidney (renal) failure. What are the causes? This condition is part of the normal aging process. However, not all men develop problems from this condition. If the prostate enlarges away from the urethra, urine flow will not be blocked. If it enlarges toward the urethra and compresses it, there will be problems passing urine. What increases the risk? This condition is more likely to develop in men older than 50 years. What are the signs or symptoms? Symptoms of this condition include: ? Getting up often during the night to urinate. ? Needing to urinate frequently during the day. ? Difficulty starting urine flow. ? Decrease in size and strength of your urine stream. ? Leaking (dribbling) after urinating. ? Inability to pass urine. This needs immediate treatment. ? Inability to completely empty your bladder. ? Pain when you pass urine. This is more common if there is also an infection. ? Urinary tract infection (UTI). How is this diagnosed? This condition is diagnosed based on your medical history, a physical exam, and your symptoms. Tests will also be done, such as: ? A post-void bladder scan. This measures any amount of urine that may remain in your bladder after you finish urinating. ? A digital rectal exam. In a rectal exam, your health care provider checks your prostate by putting a lubricated, gloved finger into your rectum to feel the back of your prostate gland. This exam detects the size of your gland and any abnormal lumps or growths. ? An exam of your urine (urinalysis). ? A prostate specific antigen (PSA) screening. This is a blood test used to screen for prostate cancer. ? An ultrasound. This test uses sound waves to electronically produce a picture of your prostate gland. Your health care provider may refer you to a specialist in kidney and prostate diseases (urologist). How is this treated? Once symptoms begin, your health care provider will monitor your condition (active surveillance or watchful waiting). Treatment for this condition will depend on the severity of your condition. Treatment may include: ? Observation and yearly exams. This may be the only treatment needed if your condition and symptoms are mild. ? Medicines to relieve your symptoms, including: ? Medicines to shrink the prostate. ? Medicines to relax the muscle of the prostate. ? Surgery in severe cases. Surgery may include: ? Prostatectomy. In this procedure, the prostate tissue is removed completely through an open incision or with a laparoscope or robotics. ? Transurethral resection of the prostate (TURP). In this procedure, a tool is inserted through the opening at the tip of the penis (urethra). It is used to cut away tissue of the inner core of the prostate. The pieces are removed through the same opening of the penis. This removes the blockage. ? Transurethral incision (TUIP). In this procedure, small cuts are made in the prostate. This lessens the prostate's pressure on the urethra. ? Transurethral microwave thermotherapy (TUMT). This procedure uses microwaves to create heat. The heat destroys and removes a small amount of prostate tissue. ? Transurethral needle ablation (TUNA). This procedure uses radio frequencies to destroy and remove a small amount of prostate tissue. ? Interstitial laser coagulation (ILC). This procedure uses a laser to destroy and remove a small amount of prostate tissue. ? Transurethral electrovaporization (TUVP). This procedure uses electrodes to destroy and remove a small amount of prostate tissue. ? Prostatic urethral lift. This procedure inserts an implant to push the lobes of the prostate away from the urethra. Follow these instructions at home: ? Take lfas-isl-rwhuamk and prescription medicines only as told by your health care provider. ? Monitor your symptoms for any changes. Contact your health care provider with any changes. ? Avoid drinking large amounts of liquid before going to bed or out in public. ? Avoid or reduce how much caffeine or alcohol you drink. ? Give yourself time when you urinate. ? Keep all follow-up visits. This is important. Contact a health care provider if: ? You have unexplained back pain. ? Your symptoms do not get better with treatment. ? You develop side effects from the medicine (more content not included)... Normal [facility] Urology Office/Clinic Noteon 01-07-2023 Urology Office/Clinic Note Chief Complaint 1 yr fu HPI Staff 77 yo male here for 1 year f/u. Previous DX: BPH with obstruction, impotence. S/p Rezum 09/02/18. Pt is currently taking Tamsulosin 0.4mg QD and Sildenafil 100mg PRN. Dysuria: no Incomplete bladder emptying: no Hematuria: no Frequency: no Urgency: no Nocturia: 1-2x night, pts. states that he gets up 3-5x a night and has the start of dementia and does not remember Stream: good stream Leaking: no Post void dripping: no Wearing pads/ Depends: no Urge incontinence: no Stress incontinence: no Incontinence without Sensory Awareness: Abdominal pain: no Flank pain: no Sexual complaints: no History of Present Illness Tests reviewed: reviewed UA I have reviewed the previous health record information and history for this patient from Dr. Chavez. I have reviewed and verified the staff HPI to be accurate for this encounter. There have been no associated fever, chills, flank pain, or blood in the urine. Denies any urinary infections since last encounter. Review of Systems PHQ Score Initial Depression Screen Score: 0 ROS - Provider Constitutional: denies weight loss, denies hot flashes. Eyes: denies eye problems. Gastrointestinal: denies nausea, denies vomiting. Cardiovascular: denies chest pain or angina. Integumentary: no dryness Musculoskeletal: denies musculoskeletal symptoms. ENMT: denies otolaryngeal symptoms. Respiratory: no shortness of breath. Heme/Lymph: denies easy bleeding tendency, denies easy bruising tendency. Psychiatric: no confusion, no anxiety. Genitourinary: denies dysuria, denies hematuria, denies discharge, denies urinary frequency, denies urinary hesitancy, denies nocturia, denies incontinence, denies genital sores, denies decreased libido, and denies erectile dysfunction. Physical Exam Vitals & Measurements HR: 87(Peripheral) BP: 157/118 HT: 73 in HT: 185 cm WT: 80.10 kg WT: 176.22 lb BMI: 23.4 General Appearance: alert, no distress, well nourished, well developed male. Genitourinary: normal scrotum, normal testes, normal urethra, normal epididymis, normal vas deferens/spermatic cord. Flank Pain: none. Bladder: nonpalpable. Assessment/Plan Present here with today 1. BPH with obstruction/lower urinary tract symptoms (N40.1: Benign prostatic hyperplasia with lower urinary tract symptoms) S/p REZUM 09/02/2018. UA today TRACE-INTACT blood, trace NANCY. Asx currently IPSS 5 - mild symptoms. Nocturia 1-2x/night, states that he gets up 3-5x/night. Patient has the start of dementia and does not remember. states she feels Flomax helps intermittently. Explained to patient that it may not always be his prostate that is making him get up at night. Cont Tamsulosin 0.4mg daily Latest PSA on file 3.12 done 10/22/20. Per last note, primary care continues to track levels. We discussed bladder irritants. confirmed PCP checking PSA. 90 day supply sent of Flomax today to [facility]. Follow up in 1 year. All questions/concerns were discussed. Pt. to call the office if heencounters any issues prior. Pt. acknowledges understanding. 2. Impotence (F52.21: Male erectile disorder) Sildenafil 100 mg PRN therapy, states they use medication intermittently. Refill sent to [facility] due to cost. The patient is here with his today. He has intermittent significant nocturia. The stream is never at difficulty and he is actually quite happy with the urinary flow, status post Rezum procedure back in 2019. He should stay on the Flomax 0.4 mg daily. We did discuss that some of his symptoms are more overactive bladder related and we could consider medication management of this if his symptoms would worsen. Doing well on current dosage of sildenafil on a as needed basis. No change in dosage indicated. Follow-up 1 year or as needed. Follow-up With When Contact Information Chintan CHAVEZ MD, URL [address] [place] [id number]- Additional Instructions: 1 year Patient Education Benign Prostatic Hyperplasia IFanny, personally scribed for Dr. Chavez on 01/07/2023 11:03:23. . Documentation recorded by the scribe, Fanny Mendoza, accurately reflects the services(s) I performed and decisions made by me. Authenticated by Dr. Chavez on 01/07/2023 11:46:31. Portions of this record may have been created with voice recognition artificial intelligence software, specifically [employer], [employer] and or [employer]. Substitutions may have occurred due to the inherent limitations of voice recognition and artificial intelligence software. Problem List/Past Medical History Ongoing BMI 24.0-24.9, adult BPH with obstruction/lower urinary tract symptoms Former smoker Gross hematuria Impotence Nocturia Weak urinary stream Historical Arthritis Erectile dysfunction Hyperlipidemia Hypertensi (more content not included)... Normal [facility] Comment on above: Result Comment: Elec tronically Signed By: Chintan CHAVEZ MD\.br\Date and Time Signed: 01/07/23 11:47 EDT\.br\Electronically Co-Signed By: Fanny Mendoza\.br\Date and Time Co-Signed: 01/07/23 11:03 EDT\.br\Electronically Co-Signed By: Fanny Mendoza\.br\Date and Time Co-Signed: 01/07/23 11:04 EDT PROF CHEM 8 (BAS METB)on Anion gap [Moles/Vol] 8.8 mmol/L Normal [facility] Comment on above: Performed By: #### B MP #### [facility] [address] [address] [address] Marlen Mckeon Calcium [Mass/Vol] 9.0 mg/dL Normal 8.5-10.1 [facility] Comment on above: Performed By: #### B MP #### [facility] [address] [address] [address] Marlen Mckeon Chloride [Moles/Vol] 103 mmol/L Normal 98-107 [facility] Comment on above: Performed By: #### B MP #### [facility] [address] [place] [address] Dr. Marlen Mckeon CO2 [Moles/Vol] 29.6 mmol/L Normal 21.0-32.0 [facility] Comment on above: Performed By: #### B MP #### [facility] [address] [address] [address] Marlen Mckeon Creatinine [Mass/Vol] 0.94 mg/dL Normal 0.70-1.30 [facility] Comment on above: Performed By: #### B MP #### [facility] [address] [place] [address] Dr. Marlen Mckeon EGFR-AF UKRAINIAN >60 Normal >=60 [facility] Comment on above: Performed By: #### B MP #### [facility] [address] [address] [address] Marlen Mckeon EGFR-NON AF UKRAINIAN >60 Normal >=60 [facility] Comment on above: Performed By: #### B MP #### [facility] [address] [address] [address] Marlen Mckeon Glucose [Mass/Vol] 89 mg/dL Normal 74-106 [facility] Comment on above: Performed By: #### B MP #### [facility] [address] [place] [address] Dr. Marlen Mckeon Potassium [Moles/Vol] 4.4 mmol/L Normal 3.5-5.1 [facility] Comment on above: Performed By: #### B MP #### [facility] [address] [place], [place] [address] Dr. Marlen Mckeon Sodium [Moles/Vol] 137 mmol/L Normal 136-145 [facility] Comment on above: Performed By: #### B MP #### [facility] [address] [place], [place] [address] Dr. Marlen Mckeon Urea nitrogen [Mass/Vol] 18.0 mg/dL Normal 7.0-18.0 [facility] Comment on above: Performed By: #### B MP #### [facility] [address], [place] [address] Dr. Marlen Mckeon Urea nitrogen/Creatinine [Mass ratio] 19.1 mg/mg Normal [facility] Comment on above: Performed By: #### B MP #### [facility] [address] [place], [place] [address] Dr. Marlen Mckeon Basic Metabolic Panelon 11- Anion gap [Moles/Vol] 9 mmol/L 9 - 17 mmol/L [facility] Calcium [Mass/Vol] 9.1 mg/dL 8.6 - 10. 4 mg/dL [facility] Chloride [Moles/Vol] 103 mmol/L 98 - 10 7 mmol/L [facility] CO2 [Moles/Vol] 26 mmol/L 20 - 31 mmol/L [facility] Creatinine [Mass/Vol] 0.83 mg/dL 0.70 - 1.20 mg/dL [facility] GFR/1.73 sq M.predicted MDRD (S/P/Bld) [Vol rate/Area] - PINF [facility] Comment on above: Effective Mar 10, 2022 These results are not intended for use in patients <18 years of age. eGFR results are calculated without a race factor using the 2020 CKD-EPI equation. Careful clinical correlation is recommended, particularly when comparing to results calculated using previous equations. The CKD-EPI equation is less accurate in patients with extremes of muscle mass, extra-renal metabolism of creatine, excessive creatine ingestion, or following therapy that affects renal tubular secretion. Glucose [Mass/Vol] 101 mg/dL High 70 - 99 mg/dL [facility] Interpretation and review of laboratory results Abnormal [facility] Potassium [Moles/Vol] 4.5 mmol/L 3.7 - 5.3 mmol/L [facility] Sodium [Moles/Vol] 138 mmol/L 135 - 144 mmol/L [facility] Urea nitrogen (BldV) [Mass/Vol] 20 mg/dL 8 - 23 mg/dL [facility] Urea nitrogen/Creatinine (Bld) [Mass ratio] 24 High 9 - 20 [facility] CBC with Auto Differentialon 04-21-2022 Absolute Eos # 0.00 [place] [address] [facility] Absolute Lymph # 1.40 [facility] Absolute Lamb # 0.60 [facility] RS [facility] Basophils (Bld) [#/Vol] 0.00 10*3/uL [facility] Basophils/100 WBC (Bld) 0 % 0 - 2 % B ON [facility] Differential Type YES [facility] Eosinophils/100 WBC (Bld) 1 % 0 - 5 % [facility] Hematocrit (Bld) [Volume fraction] 41.3 % 41 - 53 % [facility] Hemoglobin (Bld) [Mass/Vol] 14.0 g/dL 13.5 - 17.5 g/dL [facility] Interpretation and review of laboratory results Abnormal [facility] Lymphocytes/100 WBC (Bld) 27 % 13 - 44 % [facility] MCH (RBC) [Entitic mass] 33.0 pg 26 - 34 pg [facility] MCHC (RBC) [Mass/Vol] 33.9 g/dL 31 - 3 7 g/dL [facility] MCV (RBC) [Entitic vol] 97.4 fL 80 - 100 fL [facility] Monocytes/100 WBC (Bld) 11 % High 5 - 9 % B [facility] Platelet distribution width (Bld) [Ratio] 13.7 % 12.1 - 15.2 % [facility] Platelets (Bld) [#/Vol] 222 10*3/uL [facility] RBC (Bld) [#/Vol] 4.23 10*6/uL Low 4.5 - 5.9 m/uL [facility] Segmented neutrophils/100 WBC (Bld) 61 % 39 - 75 % [facility] Segs Absolute 3.20 [facility] WBC (Bld) [#/Vol] 5.2 10*3/uL [facility] Gamma GTon 04-21-2022 Gamma glutamyl transferase [Catalytic activity/Vol] 17 U/L 8 - 61 U/L [facility] Hepatic Function Panelon Albumin [Mass/Vol] 4.1 g/dL 3.5 - 5.2 g/dL [facility] ALP (Bld) [Catalytic activity/Vol] 59 U/L 40 - 129 U/L [facility] ALT [Catalytic activity/Vol] 23 U/L 5 - 41 U/L [facility] AST [Catalytic activity/Vol] 20 U/L NINF - 40 U/L [facility] Bilirubin [Mass/Vol] 0.4 mg/dL 0.30 - 1.20 mg/dL [facility] Bilirubin, Indirect Can not be calculated 0.00 - 1.00 mg/dL [facility] Bilirubin.indirect [Mass/Vol] mg/dL NINF - 0.31 mg/dL [facility] Protein [Mass/Vol] 7.3 g/dL 6.4 - 8.3 g/dL [facility] Lipid Panelon 04-21-2022 Cholesterol [Mass/Vol] 128 [facility] Comment on above: Cholesterol Guidelines: <200 Desirable 200-240 Borderline >240 Undesirable Cholesterol in HDL [Mass/Vol] 52 mg/dL 40 - PINF mg/dL [facility] Comment on above: HDL Guidelines: <40 Undesirable 40-59 Borderline >59 Desirable Cholesterol in LDL [Mass/Vol] 68 mg/dL 0 - 130 mg/dL [facility] Comment on above: LDL Guidelines: <100 Desirable 100-129 Near to/above Desirable 130-159 Borderline >159 Undesirable Direct (measured) LDL and calculated LDL are not interchangeable tests. Cholesterol.total/Ninoska sterol in HDL [Mass ratio] 2.5 {ratio} NINF - 5 [employer] Triglyceride [Mass/Vol] 38 mg/dL NINF - 150 mg/dL [facility] [employer] Comment on above: Triglyceride Guidelines: <150 Desirable 150-199 Borderline 200-499 High >499 Very high Based on AHA Guidelines for fasting triglyceride, March 2012. No Panel Informationon 04-21 [facility] [facility] Fasting?on 2 Patient Fasting? YES [facility] [employer] [facility] COVID-19 SOFIAOrdered By: Nida Baer on 04-11-2022 SARS-CoV+SARS-CoV-2 (COVID-19) Ag IA.rapid Ql (Resp) Negative Negative [facility] Comment on above: This is a duplicate Shanon SARS Antigen (HERNAN) result to be used for statistical tracking purpose only. No Panel InformationOrdered By: Christiano Baer on 04-11-2022 SARS Antigen (LFIA) [facility] XR FACIAL BONES (MIN 3 VIEWS )on 03-13-2022 Undisplaced nasal bone fracture. [facility] CONSOLIDATED EXAM: XR FACIAL BONE S (MIN 3 VIEWS ) HISTORY: Reason for exam:->frontal facial injury due to fall while intoxicated COMPARISON: None. TECHNIQUE: Facial bones 5 images. FINDINGS: Undisplaced fracture of the nasal bone. Spinous process of the maxilla is intact. Orbital floors and kelley are intact. The paranasal sinuses are normally aerated. [facility] Perez Lopez Jr., MD - 03/13/2022 EXAM: XR FACIAL BONES (MIN 3 VIEWS ) HISTORY: Reason for exam:->frontal facial injury due to fall while intoxicated COMPARISON: None. TECHNIQUE: Facial bones 5 images. FINDINGS: Undisplaced fracture of the nasal bone. Spinous process of the maxilla is intact. Orbital floors and kelley are intact. The paranasal sinuses are normally aerated. IMPRESSION: Undisplaced nasal bone fracture. [employer] Work Phone: Radiology Study observation (narrative) [employer] Work Phone: XR FACIAL BONES (MIN 3 VIEWS )Ordered By: Perez Lopez on 03-13-2022 [email or web address] Phone: XR LUMBAR SPINE (MIN 4 VIEWS )on 11-11-2021 Degenerative changes. [facility] EXAM: XR LUMBAR SPIN E (MIN 4 VIEWS) HISTORY: Reason for exam:->fall off pickup truck tail gait 10/31/21. COMPARISON: None. TECHNIQUE: Lumbar spine 5 views. FINDINGS: Moderate diffuse age expected disc degenerative change without fracture. [facility] Jessica, Perez carvajal Jr., MD - 11/11/2021 EXAM: XR LUMBAR SPINE (MIN 4 VIEWS) HISTORY: Reason for exam:->fall off pickup truck tail gait 10/31/21. COMPARISON: None. TECHNIQUE: Lumbar spine 5 views. FINDINGS: Moderate diffuse age expected disc degenerative change without fracture. IMPRESSION: Degenerative changes. [email or web address] Phone: Radiology Study observation (narrative) Expert TA Phone: XR LUMBAR SPINE (MIN 4 VIEWS )Ordered By: Perez Lopez on 11-11-2021 [email or web address] Phone: US Carotid, Bilateralon US Carotid, Bilateral FINDINGS: Right (% stenosis)Left (% stenosis) ICA Peak Systolic Velocity (cm/sec)201 (58%)103 (n/a) ICA/CCA Systolic Ratio1.9 (51%)1.0 (n/a) BILATERAL CAROTID SYSTEMS: No prior examinations are available for comparison. LEFT CAROTID SYSTEM: Postsurgical changes. No significant stenosis based on visual appearance. NO abnormal fluid collections. RIGHT CAROTID SYSTEM: Elevated velocity and ratio values (51-58%). Bilateral craniad vertebral arterial flow. Heterogeneous thyroid echotexture. Estimated range of stenosis*: LEFT CAROTID SYSTEM: Postsurgical changes, no significant stenosis based on visual appearance. RIGHT CAROTID SYSTEM: Borderline hemodynamically significant stenosis, proximal ICA. Further characterization with CTA may be of assistance. *COMMENT: These estimates represent a median value within a 95% confidence interval range. They represent percent diameter ICA stenosis derived from regression curve analysis using the NASCET method and Doppler ultrasound velocities. Please note with high-grade stenosis (greater than 95%), an actual reduction in velocity will occur. Reference: Sahil Nieves. carotid ultrasound, in RAD [facility] NA, 39 (3), Oct, 2000. Report reported and signed by Sahil Perla on 07/15/2021 [address] [facility] Specialist Operative Reporton Operative Report MR#: [id number] [facility] Pt. Name: Faith Olivier Room #: FABIANA [id number] Discharge 06/26/2021 Date: Birthdate: 1945 OPERATIVE REPORT DATE OF SURGERY: 06/25/2021 SURGEON: Kenyatta Mora M.D. PREOPERATIVE DIAGNOSIS: Severe stenosis of the carotid artery bilaterally. POSTOPERATIVE DIAGNOSIS: Severe stenosis of the carotid artery bilaterally. PROCEDURE DONE: Left carotid endarterectomy. ANESTHESIA: General anesthesia. COMPLICATIONS: No complications. INDICATIONS: The patient is a 76-year-old male patient who has severe occlusive disease in both carotid arteries, presenting for a left carotid endarterectomy. complications including stroke and myocardial infarction were explained to the patient. DESCRIPTION OF PROCEDURE: The patient was put in a supine position. The left side of the neck was prepped and draped in the usual fashion. Time-out was performed. Given antibiotics before the procedure, and was given heparin at the beginning of the procedure. A transverse incision was made on the left side of the neck, deepened down to subcutaneous tissue. After that, the fascia was extended. The platysma was opened. Then dissection was done anterior to the sternocleidomastoid muscle down to the internal jugular vein. Dissection was done anterior to the internal jugular vein until the common facial vein was identified, it was ligated and transected. After that, it was noticed that there were significant adhesions in the neck area. The careful dissection was done until identified the common carotid artery followed distally to the external and internal carotid artery. There was significant adhesion around the internal superior thyroidal artery and while dissection, there was some bleeding from the artery, so decided to ligate it. After that, dissection done in the distal external and distal internal carotid artery. Vessel loops applied around each one of them. Then dissection around the common carotid artery done. Umbilical tape applied around it. ACT was checked. Blood flow to the brain was monitored through an INVOS oxygen saturation. After checking the ACT, clamps were applied to the internal carotid, then external, then common carotid artery. Dissection was completed around the common carotid artery bifurcation area and releasing the internal carotid artery proximally. Of note here, there was significant adhesions and also calcification. Then, after that, a small incision was made in the common carotid artery. The clamp in the internal carotid artery was released, which showed very good back bleeding, so decided not to shunt at this stage. The clamp was reapplied to the internal carotid artery. Then using scissor, extended the arteriotomy to the internal and common carotid artery. After that, endarterectomy was done for the internal carotid artery and external carotid artery as well as common carotid artery. All debris were removed. The distal part of the internal carotid artery was dissected carefully until it tapered into a nice smooth plaque. After that, a bovine patch applied to the internal/common carotid artery, sutured in position with 6-0 Prolene continuously. Before completing the anastomosis, irrigation of the internal and common carotid artery was done. Then again, back bleeding from the internal and external carotid artery was done and forward bleeding from the common carotid artery was allowed followed by irrigation of the lumen of the artery followed by completing the anastomosis. Before completing the anastomosis, the external carotid artery was released to de-air the arteries. Then, the anastomosis completed allowing blood to flow into the external then to the internal carotid artery. Doppler signals showed very good signal in both internal and external carotid artery. Saline was irrigated in the area. Hemostasis secured. The fascia was approximated to the sternocleidomastoid muscle fascia to isolate the patch, followed by placing a KURT drain on top of this area followed by closure of the platysma with 3-0 Vicryl and the skin was closed with 4-0 subcuticular stitch. The patient tolerated the procedure well, recovered from anesthesia. Blood loss was less than 100 mL. The patient had no neurological symptoms in recovery, taken to recovery room with no complications. Of note here, during the procedure, there was no significant drop in the saturation in the brain. Electronically Signed by: Kenyatta Mora M.D. 07/03/2021 09:25 A Kenyatta Mora M.D. Date Dict: 06/29/2021/04:13 Chely/Kenyatta Mora M.D. Date Trans: 06/30/2021 02:06 A/grabiel [id number] Normal [facility] BASIC METABOLIC PANELon 06-08 Calcium [Mass/Vol] 8.7 mg/dL Normal 8.6-10.3 [facility] Comment on above: Order Comment: No: D o not add to previous draw Performed By: #### 0 0071, [id number], 62953 #### [facility] [address] [place] [address], [facility] Chloride [Moles/Vol] 106 mmol/L Normal 98-[address] [facility] Comment on above: Order Comment: No: D o not add to previous draw Performed By: #### 0 0071, [id number], 00250 #### [facility] [address] [place] [address], [place] CO2 [Moles/Vol] 25 mmol/L Normal 21-31 [facility] Comment on above: Order Comment: No: D o not add to previous draw Performed By: #### 0 0071, 83280, 92495 #### [facility] [address] [place] [address], [place] Creatinine [Mass/Vol] 0.69 mg/dL Low 0.70-1.[address] [facility] Comment on above: Order Comment: No: D o not add to previous draw Performed By: #### 0 0071, 84593, 40975 #### [facility] [address] [place] [address], [place] GFR/1.73 sq M.predicted among blacks MDRD (S/P/Bld) [Vol rate/Area] mL/min/{1.73_m2} Normal >[address] [facility] Comment on above: Order Comment: No: D o not add to previous draw Result Comment: Calc ulation may not be valid for patients over 70 years Performed By: #### 0 0071, 48510, 89349 #### [facility] [address] [place] [address], [facility] GFR/1.73 sq M.predicted among non-blacks MDRD (S/P/Bld) [Vol rate/Area] mL/min/{1.73_m2} Normal >[address] [facility] Comment on above: Order Comment: No: D o not add to previous draw Result Comment: Calc ulation may not be valid for patients over 70 years Performed By: #### 0 0071, 77008, 60686 #### [facility] [address] [place] [address], [facility] Glucose [Mass/Vol] 122 mg/dL High 70-100 [facility] Comment on above: Order Comment: No: D o not add to previous draw Performed By: #### 0 0071, 82946, 57927 #### [facility] [address] [place] [address], [place] Potassium [Moles/Vol] 3.7 mmol/L Normal 3.5-5.[address] [facility] Comment on above: Order Comment: No: D o not add to previous draw Performed By: #### 0 0071, 65416, 52866 #### [facility] [address] [place] [address], [place] Sodium [Moles/Vol] 135 mmol/L Low 136-145 [facility] Comment on above: Order Comment: No: D o not add to previous draw Performed By: #### 0 0071, 09593, 72183 #### [facility] [address] [place] [address], [place] Urea nitrogen [Mass/Vol] 9 mg/dL Normal 7-[address] [facility] Comment on above: Order Comment: No: D o not add to previous draw Performed By: #### 0 0071, 20745, 03767 #### [facility] [address] [place] [id number], [facility] CBC W/DIFFon 06-26-2021 ABS IMM GRANS 0.0 10*3/uL Normal 0.0-0.2 The [facility] Comment on above: Order Comment: No: D o not add to previous draw Performed By: #### 5 0103 #### [facility] [address] [place] [address], [facility] ABS NEUTROPHILS 4.3 10*3/uL Normal 1.6-7.6 [facility] Comment on above: Order Comment: No: D o not add to previous draw Performed By: #### 5 0103 #### [facility] [address] [address], [facility] Basophils (Bld) [#/Vol] 0.0 10*3/uL Normal 0.0-0.[address] [facility] Comment on above: Order Comment: No: D o not add to previous draw Performed By: #### 5 0103 #### [facility] [address] [address], [facility] Basophils/100 WBC (Bld) 0.4 % Normal 0.0-1.[address] [facility] Comment on above: Order Comment: No: D o not add to previous draw Performed By: #### 5 0103 #### [facility] [address] [address], [facility] Eosinophils (Bld) [#/Vol] 0.1 10*3/uL Normal 0.0-0.[address] [facility] Comment on above: Order Comment: No: D o not add to previous draw Performed By: #### 5 0103 #### [facility] [address] [place] [id number], [facility] Eosinophils/100 WBC (Bld) 0.7 % Normal 0.0-6.[address] [facility] Comment on above: Order Comment: No: D o not add to previous draw Performed By: #### 5 0103 #### [facility] [address] [place] [address], [facility] Erythrocyte distribution width (RBC) [Ratio] 12.3 % Normal 11.5-15.[address] [facility] Comment on above: Order Comment: No: D o not add to previous draw Performed By: #### 5 0103 #### [facility] [address] [place] [id number], [facility] Hematocrit (Bld) [Volume fraction] 36.1 % Low 39.0-50.[address] [facility] Comment on above: Order Comment: No: D o not add to previous draw Performed By: #### 5 0103 #### [facility] [address] [place] [id number], [facility] Hemoglobin (Bld) [Mass/Vol] 12.8 g/dL Low 13.0-17.[address] [facility] Comment on above: Order Comment: No: D o not add to previous draw Performed By: #### 5 0103 #### [facility] [address] [place] [address], [facility] IMMATURE GRANS 0.3 % Normal 0.0-1.0 The [facility] Comment on above: Order Comment: No: D o not add to previous draw Performed By: #### 5 0103 #### [facility] [address] [place] [address], [facility] Lymphocytes (Bld) [#/Vol] 1.6 10*3/uL Normal 1.2-4.[address] [facility] Comment on above: Order Comment: No: D o not add to previous draw Performed By: #### 5 0103 #### [facility] [address] [place] [id number], [facility] Lymphocytes/100 WBC (Bld) 23.4 % Normal 20.0-45.[address] [facility] Comment on above: Order Comment: No: D o not add to previous draw Performed By: #### 5 0103 #### [facility] [address] [place] [address], [facility] MCH (RBC) [Entitic mass] 32.7 pg Normal 27.0-33.[address] [facility] Comment on above: Order Comment: No: D o not add to previous draw Performed By: #### 5 0103 #### [facility] [address] [place] [address], [facility] MCHC (RBC) [Mass/Vol] 35.5 g/dL High 32.0-35.[address] [facility] Comment on above: Order Comment: No: D o not add to previous draw Performed By: #### 5 0103 #### [facility] [address] [place] [address], [facility] MCV (RBC) [Entitic vol] 92.3 fL Normal 82.0-98.0 [facility] Comment on above: Order Comment: No: D o not add to previous draw Performed By: #### 5 0103 #### [facility] [address] [place] [address], [facility] Monocytes (Bld) [#/Vol] 0.7 10*3/uL Normal 0.1-1.[address] [facility] Comment on above: Order Comment: No: D o not add to previous draw Performed By: #### 5 0103 #### [facility] [address] [address], [facility] MONOS 10.4 % Normal 5.0-12.[address] [facility] Comment on above: Order Comment: No: D o not add to previous draw Performed By: #### 5 0103 #### [facility] [address] [place] [address], [facility] Neutrophils/100 WBC (Bld) 64.8 % Normal 40.0-72.[address] [facility] Comment on above: Order Comment: No: D o not add to previous draw Performed By: #### 5 0103 #### [facility] [address] [place] [address], [facility] Nucleated RBC/100 WBC (Bld) [Ratio] 0 % Normal 0-[address] [facility] Comment on above: Order Comment: No: D o not add to previous draw Performed By: #### 5 0103 #### [facility] [address] [place] [address], [facility] PLAT CNT 197 10*3/uL Normal 150-400 [facility] Comment on above: Order Comment: No: D o not add to previous draw Performed By: #### 5 0103 #### [facility] [address] [place] [address], [facility] RBC (Bld) [#/Vol] 3.91 10*6/uL Low 4.20-5.70 The [facility] Comment on above: Order Comment: No: D o not add to previous draw Performed By: #### 5 0103 #### [facility] [address] [place] [id number], [facility] WBC (Bld) [#/Vol] 6.71 10*3/uL Normal 4.00-10.60 [facility] Comment on above: Order Comment: No: D o not add to previous draw Performed By: #### 5 3 #### [facility] [address] [place] [id number], [facility] LIVER BATTERYon 06-26-2021 Albumin [Mass/Vol] 3.5 g/dL Normal 3.5-5.7 [facility] Comment on above: Order Comment: No: D o not add to previous draw Performed By: #### 0 0071, 90867, 16213 #### [facility] [address] [place] [address], [facility] ALKALINE PHOSPH 40 IU/L Normal 34-104 [facility] Comment on above: Order Comment: No: D o not add to previous draw Performed By: #### 0 0071, 80562, 54284 #### [facility] [address] [place] [address], [place] ALT [Catalytic activity/Vol] 18 U/L Normal 7-[address] [facility] Comment on above: Order Comment: No: D o not add to previous draw Performed By: #### 0 0071, 79965, 20368 #### [facility] [address] [place] [address], [place] AST [Catalytic activity/Vol] 15 U/L Normal 13-[address] [facility] Comment on above: Order Comment: No: D o not add to previous draw Performed By: #### 0 0071, [id number], [id number] #### [facility] [address] [place] [address], [place] Bilirubin [Mass/Vol] 0.7 mg/dL Normal 0.3-1.[address] [facility] Comment on above: Order Comment: No: D o not add to previous draw Performed By: #### 0 0071, [id number], [id number] #### [facility] [address] [place] [address], [place] Bilirubin.direct [Mass/Vol] 0.2 mg/dL Normal 0.0-0.[address] [facility] Comment on above: Order Comment: No: D o not add to previous draw Performed By: #### 0 0071, [id number], [id number] #### [facility] [address] [place] [address], [place] Protein [Mass/Vol] 6.1 g/dL Normal 6.0-8.3 The [facility] Comment on above: Order Comment: No: D o not add to previous draw Performed By: #### 0 0071, [id number], [id number] #### [facility] [address] [place] [address], [place] MONOSPOTon 06-26-2021 MONOSPOT Negative Normal NEGATIVE The [facility] Comment on above: Order Comment: No: D o not add to previous draw Performed By: #### 5 [id number] #### [facility] [address] [place] [address], [facility] PHOSPHORUS BLOODon 2 Phosphate [Mass/Vol] 3.2 mg/dL Normal 2.5-5.[address] [facility] Comment on above: Order Comment: No: D o not add to previous draw Performed By: #### 0 0071, [id number], 72511 #### [facility] [address] [place] [address], [facility] ACTIVATED CLOTTING TIMEon ACTIVATED CLOTTING TIME 252 sec High 82-[address] [facility] Comment on above: Performed By: #### 3 0739 #### [facility] [address] [place] [address], [facility] ACTIVATED CLOTTING TIME 245 sec High 82-[address] [facility] Comment on above: Performed By: #### 3 0739 #### [facility] [address] [place] [address], [facility] ACTIVATED CLOTTING TIME 239 sec High 82-[address] [facility] Comment on above: Performed By: #### 3 0739 #### [facility] [address] [place] [address], [facility] ACTIVATED CLOTTING TIME 265 sec High 82-[address] [facility] Comment on above: Performed By: #### 3 0739 #### [facility] [address] [place] [id number], [facility] APTTon 06-25-2021 aPTT Coag (Bld) [Time] 47.8 s High 25.0-35.[address] [facility] Comment on above: Result Comment: ALL RESULTS MUST BE INTERPRETED WITH RESPECT TO BLOOD DRAWING ARTIFACT OR DILUTION ERROR OF ANTICOAGULANT AT THE TIME OF SAMPLING. THE APTT SHOULD NOT BE USED TO MONITOR UNFRACTIONATED HEPARIN THERAPY, THIS LABORATORY NO LONGER HAS AN ESTABLISHED THERAPEUTIC RANGE BASED ON THE APTT. IT IS RECOMMENDED THAT THE [facility] - HEPARIN ASSAY (ANTI-XA ACTIVITY) BE USED FOR THIS PURPOSE. Performed By: #### 5 [id number] #### [facility] [address] CBC COMPLETE BLOOD COUNTon 0 - Erythrocyte distribution width (RBC) [Ratio] 12.1 % Normal 11.5-15.0 [facility] Comment on above: Order Comment: No: D o not add to previous draw Performed By: #### 5 0608 #### [facility] [address] Hematocrit (Bld) [Volume fraction] 37.5 % Low 39.0-50.[address] [facility] Comment on above: Order Comment: No: D o not add to previous draw Performed By: #### 5 0608 #### [facility] [address] [facility] Hemoglobin (Bld) [Mass/Vol] 13.3 g/dL Normal 13.0-17.[address] [facility] Comment on above: Order Comment: No: D o not add to previous draw Performed By: #### 5 0608 #### [facility] [address] MCH (RBC) [Entitic mass] 32.7 pg Normal 27.0-33.[address] [facility] Comment on above: Order Comment: No: D o not add to previous draw Performed By: #### 5 0608 #### [facility] [address] [place] [address], [facility] MCHC (RBC) [Mass/Vol] 35.5 g/dL High 32.0-35.[address] [facility] Comment on above: Order Comment: No: D o not add to previous draw Performed By: #### 5 0608 #### [facility] [address] [place] [address], [facility] MCV (RBC) [Entitic vol] 92.1 fL Normal 82.0-98.[address] [facility] Comment on above: Order Comment: No: D o not add to previous draw Performed By: #### 5 0608 #### [facility] [address] [address], [facility] Nucleated RBC/100 WBC (Bld) [Ratio] 0 % Normal 0-[address] [facility] Comment on above: Order Comment: No: D o not add to previous draw Performed By: #### 5 [id number] #### [facility] [address] [address], [facility] PLAT CNT 197 10*3/uL Normal 150-400 The [facility] Comment on above: Order Comment: No: D o not add to previous draw Performed By: #### 5 0608 #### [facility] [address] [place] [address], [facility] RBC (Bld) [#/Vol] 4.07 10*6/uL Low 4.20-5.70 The [facility] Comment on above: Order Comment: No: D o not add to previous draw Performed By: #### 5 0608 #### [facility] [address] [place] [address], [facility] WBC (Bld) [#/Vol] 9.86 10*3/uL Normal 4.00-10.60 The [facility] Comment on above: Order Comment: No: D o not add to previous draw Performed By: #### 5 0608 #### [facility] [address] [place] [address], [facility] COMP METABOLIC PANELon 06-25 Albumin [Mass/Vol] 3.7 g/dL Normal 3.5-5.7 The [facility] Comment on above: Order Comment: No: D o not add to previous draw Performed By: #### 0 0121 #### [facility] [address] [place] [address], [facility] ALKALINE PHOSPH 39 IU/L Normal 34-104 The [facility] Comment on above: Order Comment: No: D o not add to previous draw Performed By: #### 0 0121 #### [facility] [address] [place] [address], [place] ALT [Catalytic activity/Vol] 22 U/L Normal 7-[address] [facility] Comment on above: Order Comment: No: D o not add to previous draw Performed By: #### 0 0121 #### [facility] [address] [place] [address], [place] AST [Catalytic activity/Vol] 15 U/L Normal 13-[address] [facility] Comment on above: Order Comment: No: D o not add to previous draw Performed By: #### 0 0121 #### [facility] [address] [place] [address], [place] Bilirubin [Mass/Vol] 0.5 mg/dL Normal 0.3-1.[address] [facility] Comment on above: Order Comment: No: D o not add to previous draw Performed By: #### 0 0121 #### [facility] [address] [place] [address], [place] Calcium [Mass/Vol] 8.9 mg/dL Normal 8.6-10.3 The [facility] Comment on above: Order Comment: No: D o not add to previous draw Performed By: #### 0 0121 #### [facility] [address] [place] [address], [place] Chloride [Moles/Vol] 104 mmol/L Normal 98-[address] [facility] Comment on above: Order Comment: No: D o not add to previous draw Performed By: #### 0 0121 #### [facility] [address] [place] [address], [place] CO2 [Moles/Vol] 25 mmol/L Normal 21-31 The [facility] Comment on above: Order Comment: No: D o not add to previous draw Performed By: #### 0 0121 #### [facility] [address] [place] [address], [place] Creatinine [Mass/Vol] 0.73 mg/dL Normal 0.70-1.[address] [facility] Comment on above: Order Comment: No: D o not add to previous draw Performed By: #### 0 0121 #### [facility] [address] [place] [address], [place] GFR/1.73 sq M.predicted among blacks MDRD (S/P/Bld) [Vol rate/Area] mL/min/{1.73_m2} Normal >[address] [facility] Comment on above: Order Comment: No: D o not add to previous draw Result Comment: Calc ulation may not be valid for patients over 70 years Performed By: #### 0 0121 #### [facility] [address] [place] [address], [place] GFR/1.73 sq M.predicted among non-blacks MDRD (S/P/Bld) [Vol rate/Area] mL/min/{1.73_m2} Normal >[address] [facility] Comment on above: Order Comment: No: D o not add to previous draw Result Comment: Calc ulation may not be valid for patients over 70 years Performed By: #### 0 0121 #### [facility] [address] [place] [address], [place] Glucose [Mass/Vol] 115 mg/dL High 70-100 The [facility] Comment on above: Order Comment: No: D o not add to previous draw Performed By: #### 0 0121 #### [facility] [address] [place] [address], [place] Potassium [Moles/Vol] 3.8 mmol/L Normal 3.5-5.[address] [facility] Comment on above: Order Comment: No: D o not add to previous draw Performed By: #### 0 0121 #### [facility] [address] Protein [Mass/Vol] 6.4 g/dL Normal 6.0-8.3 The [facility] Comment on above: Order Comment: No: D o not add to previous draw Performed By: #### 0 0121 #### [facility] [address] Sodium [Moles/Vol] 135 mmol/L Low 136-145 [facility] Comment on above: Order Comment: No: D o not add to previous draw Performed By: #### 0 0121 #### [facility] [address] Urea nitrogen [Mass/Vol] 14 mg/dL Normal 7-[address] [facility] Comment on above: Order Comment: No: D o not add to previous draw Performed By: #### 0 0121 #### [facility] [address] PROTHROMBIN TIMEon 2 INR Coag (PPP) [Relative time] 1.09 {INR} Normal 0.91-1.[address] [facility] Comment on above: Result Comment: ACCC P RECOMMENDED INR FOR WARFARIN THERAPY ------- CONDITION INR PROPHYLAXIS OF VENOUS THROMBOSIS 2-3 (HIGH-RISK SURGERY) TREATMENT OF VENOUS THROMBOSIS 2-3 TREATMENT OF PULMONARY EMBOLISM 2-3 PREVENTION OF SYSTEMIC EMBOLISM: 2-3 ACUTE MYOCARDIAL INFARCTION TISSUE HEART VALVES VALVULAR HEART DISEASE ATRIAL FIBRILLATION RECURRENT SYSTEMIC EMBOLISM MECHANICAL HEART VALVE 2.5-3.5 FROM: ORAL ANTICOAGULANTS. MECHANISM OF ACTION, CLINICAL EFFECTIVENESS, AND OPTIMAL THERAPEUTIC RANGE. CHEST 1995;108:231S-246S. Performed By: #### 5 0608 #### [facility] [address] [place] [address], [facility] PT Coag (PPP) [Time] 14.1 s Normal 12.3-14.[address] [facility] Comment on above: Result Comment: ALL RESULTS MUST BE INTERPRETED WITH RESPECT TO BLOOD DRAWING ARTIFACT OR DILUTION ERROR OF ANTICOAGULANT AT THE TIME OF SAMPLING. Performed By: #### 5 0608 #### [facility] [address] [place] [address], [facility] MRI BRAIN WO CONTRASTOrdered By: Candace Burleson on 03-29-2021 Mild cerebral atroph y with minimal small vessel ischemic changes of the supratentorial white matter. [employer]ur Phone: EXAM: MRI BRAIN WO CONTRAST HISTORY: Reason for exam:->short term memory changes. Carotid stenosis > 70% rule out CVA COMPARISON: Head CT 07/01/2017. TECHNIQUE: Multiplanar, multisequence MR imaging of the head was performed without intravenous contrast. FINDINGS: No restricted diffusion. No acute hemorrhage, mass effect, midline shift, or extra axial fluid collection. There is mild diffuse cerebral atrophy with concordant prominence of the ventricles. Minimal scattered foci of increased FLAIR signal are seen within the periventricular and subcortical white matter. Expected flow voids are seen within the intracranial internal carotid, vertebral, and basilar arteries. Cerebellopontine angles and internal auditory canals are unremarkable. The pituitary gland and midline structures are unremarkable. Bone marrow signal is within normal limits. The orbits and globes are unremarkable. Expected signal voids are seen within the paranasal sinuses and mastoid air cells. fl3ur Phone: Kenneth, [facility] Incoming Radiant Results From [employer] - 03/29/2021 3:13 PM EDT EXAM: MRI BRAIN WO CONTRAST HISTORY: Reason for exam:->short term memory changes. Carotid stenosis > 70% rule out CVA COMPARISON: Head CT 07/01/2017. TECHNIQUE: Multiplanar, multisequence MR imaging of the head was performed without intravenous contrast. FINDINGS: No restricted diffusion. No acute hemorrhage, mass effect, midline shift, or extra axial fluid collection. There is mild diffuse cerebral atrophy with concordant prominence of the ventricles. Minimal scattered foci of increased FLAIR signal are seen within the periventricular and subcortical white matter. Expected flow voids are seen within the intracranial internal carotid, vertebral, and basilar arteries. Cerebellopontine angles and internal auditory canals are unremarkable. The pituitary gland and midline structures are unremarkable. Bone marrow signal is within normal limits. The orbits and globes are unremarkable. Expected signal voids are seen within the paranasal sinuses and mastoid air cells. IMPRESSION: Mild cerebral atrophy with minimal small vessel ischemic changes of the supratentorial white matter. fl3ur Phone: fl3ur Phone: Basic Metabolic PanelOrdered By: Candace Burleson on 10-22-2020 Anion gap [Moles/Vol] 8 mmol/L Low 9 - 17 mmol/L fl[employer]ur Phone: Calcium [Mass/Vol] 9.3 mg/dL 8.6 - 10. 4 mg/dL fl[employer]ur Phone: Chloride [Moles/Vol] 103 mmol/L 98 - 10 7 mmol/L [employer]ur Phone: CO2 [Moles/Vol] 27 mmol/L 20 - 31 mmol/L [employer]ur Phone: Creatinine [Mass/Vol] 0.79 mg/dL 0.70 - 1.20 mg/dL fl[employer]ur Phone: GFR >60 >60 mL/min [employer] Phone: GFR Non- >60 >60 mL/min fl[employer]ur Phone: GFR/1.73 sq M.predicted MDRD (S/P/Bld) [Vol rate/Area] fl3ur Phone: Comment on above: Average GFR for 70 o r more years old: 75 mL/min/1.73sq m Chronic Kidney Disease: <60 mL/min/1.73sq m Kidney failure: <15 mL/min/1.73sq m eGFR calculated using average adult body mass. Additional eGFR calculator available at: http://www.NeoDiagn[employer]ix/multiple_crcl_2012.htm GFR/1.73 sq M.predicted MDRD (S/P/Bld) [Vol rate/Area] NOT REPORTED [employer] Phone: Glucose [Mass/Vol] 111 mg/dL High 70 - 99 mg/dL [employer] Phone: Interpretation and review of laboratory results Abnormal [employer] Phone: Potassium [Moles/Vol] 4.1 mmol/L 3.7 - 5.3 mmol/L [employer] Phone: Sodium [Moles/Vol] 138 mmol/L 135 - 144 mmol/L [employer] Phone: Urea nitrogen (BldV) [Mass/Vol] 19 mg/dL 8 - 23 mg/dL [employer] Phone: Urea nitrogen/Creatinine (Bld) [Mass ratio] 24 High [email or web address] Work Phone: CBC Auto DifferentialOrdered By: Candace Burleson on 10-22-2020 Absolute Eos # 0.[address] [facility] Work Phone: Absolute Immature Granulocyte NOT REPORTED [email or web address] Work Phone: Absolute Lymph # 1.70 [employer] [facility] Work Phone: Absolute Lamb # 0.50 [employer] [facility] Work Phone: Basophils (Bld) [#/Vol] 0.00 10*3/uL [email or web address] Work Phone: Basophils/100 WBC (Bld) 1 % 0 - 2 % [email or web address] Work Phone: Differential Type YES [employer] Work Phone: Eosinophils/100 WBC (Bld) 1 % 0 - 5 % [employer]ur Phone: Hematocrit (Bld) [Volume fraction] 43.1 % 41 - 53 % [employer]ur Phone: Hemoglobin.gastrointest inal spec 1 Ql (Stl) 14.6 g/dL 13.5 - 17.5 g/dL [employer]ur Phone: Immature Granulocytes NOT REPORTED 0 % M [employer] Phone: Interpretation and review of laboratory results Abnormal [employer]ur Phone: Lymphocytes/100 WBC (Bld) 33 % 13 - 44 % [employer] Phone: MCH (RBC) [Entitic mass] 32.8 pg 26 - 34 pg [employer]ur Phone: MCHC (RBC) [Mass/Vol] 33.9 g/dL 31 - 3 7 g/dL [employer] Phone: MCV (RBC) [Entitic vol] 96.6 fL 80 - 100 fL [employer] Phone: Monocytes/100 WBC (Bld) 9 % 5 - 9 % M [employer] Phone: NRBC Automated NOT REPORTED per 100 WBC [employer] [facility] Work Phone: Platelet distribution width (Bld) [Ratio] 13.1 % 12.1 - 15.2 % fl[employer]ur Phone: Platelet Estimate NOT REPORTED [employer]ur Phone: Platelet mean volume (Bld) [Entitic vol] NOT REPORTED 6.0 - 12.0 fL [employer] Phone: Platelets (Bld) [#/Vol] 241 10*3/uL [employer] Phone: RBC (Bld) [#/Vol] 4.46 10*6/uL Low 4.5 - 5.9 m/uL [employer] Phone: RBC (Bld) [#/Vol] NOT REPORTED [employer]ur Phone: Segmented neutrophils/100 WBC (Bld) 56 % 39 - 75 % [employer]ur Phone: Segs Absolute 2.90 [employer] Work Phone: WBC (Bld) [#/Vol] 5.1 10*3/uL [employer] Work Phone: WBC (Bld) [#/Vol] NOT REPORTED fl3ur Phone: fl3ur Phone: Hepatic Function PanelOrdere d By: Candace Burleson on 10-22-2020 Albumin [Mass/Vol] 4.2 g/dL 3.5 - 5.2 g/dL [employer]ur Phone: Albumin/Globulin Ratio NOT REPORTED [employer]ur Phone: ALP (Bld) [Catalytic activity/Vol] 52 U/L 40 - 129 U/L [employer] Phone: ALT [Catalytic activity/Vol] 28 U/L 5 - 41 U/L [employer] Phone: AST [Catalytic activity/Vol] 23 U/L <40 [employer]ur Phone: Bilirubin [Mass/Vol] 0.33 mg/dL 0.30 - 1.20 mg/dL [employer]ur Phone: Bilirubin, Indirect CANNOT BE CALCULATED 0.00 - 1.00 mg/dL [employer]ur Phone: Bilirubin.indirect [Mass/Vol] mg/dL <0.31 mg/dL [employer]ur Phone: Free PSA/Total PSA [Mass fraction] 7.0 g/dL 6.4 - 8.3 g/dL [employer]ur Phone: Globulin NOT REPORTED 1.5 - 3.8 g/dL [employer]ur Phone: Lipid PanelOrdered By: Candace Burleson on 10-22-2020 Cholesterol [Mass/Vol] 145 mg/dL <200 [employer] Phone: Comment on above: Cholesterol Guidelines: <200 Desirable 200-240 Borderline >240 Undesirable Cholesterol in HDL [Mass/Vol] 54 mg/dL >40 [employer] Phone: Comment on above: HDL Guidelines: <40 Undesirable 40-59 Borderline >59 Desirable Cholesterol in LDL [Mass/Vol] 85 mg/dL 0 - 130 mg/dL [employer]ur Phone: Comment on above: LDL Guidelines: <100 Desirable 100-129 Near to/above Desirable 130-159 Borderline >159 Undesirable Direct (measured) LDL and calculated LDL are not interchangeable tests. Cholesterol in VLDL [Mass/Vol] NOT REPORTED 1 - 30 mg/dL [employer] Phone: Cholesterol.total/Ninoska sterol in HDL [Mass ratio] 2.7 {ratio} <5 [employer] Phone: Triglyceride [Mass/Vol] 31 mg/dL <150 [facility] Phone: Comment on above: Triglyceride Guidelines: <150 Desirable 150-199 Borderline 200-499 High >499 Very high Based on AHA Guidelines for fasting triglyceride, March 2012. fl3ur Phone: No Panel InformationOrdered By: Candace Burleson on 10-22-2020 [employer]ur Phone: PSA screeningOrdered By: Flora Burleson on 10-22-2020 [employer]ur Phone: Patient Fasting?Ordered By: Candace Burleson on 10-22-2020 Patient Fasting? yes [email or web address] Phone: fl[employer]ur Phone: TSH with ReflexOrdered By: Dori Burleson on 10-22-2020 TSH Qn 2.71 m[IU]/L [facility] Work Phone: Comprehensive Metabolic Pane ruth 08-25-2019 Albumin [Mass/Vol] 4.8 g/dL 3.5 - 5.2 g/dL [place], [place] Albumin/Globulin [Mass ratio] NOT REPORTED [place] ALP [Catalytic activity/Vol] 49 U/L 40 - 129 U/L [place] ALT [Catalytic activity/Vol] 39 U/L 5 - 41 U/L [place] Anion gap [Moles/Vol] 11 mmol/L 9 - 17 mmol/L [place] AST [Catalytic activity/Vol] 27 U/L <40 [place] Bilirubin Ql (U) 0.76 mg/dL 0.3 - 1.2 mg/dL [place] Bun/Cre Ratio 17 [place] Calcium [Mass/Vol] 10.5 mg/dL High 8.6 - 10. 4 mg/dL [place] Chloride [Moles/Vol] 99 mmol/L 98 - 10 7 mmol/L [place] CO2 [Moles/Vol] 28 mmol/L 20 - 31 mmol/L [place] Creatinine [Mass/Vol] 0.95 mg/dL 0.7 - 1.2 mg/dL [place] GFR >60 >60 mL/min [place] GFR Non- >60 >60 mL/min [place] GFR/1.73 sq M predicted among non-blacks MDRD (S/P/Bld) [Vol rate/Area] [place] Comment on above: Average GFR for 70 o r more years old: 75 mL/min/1.73sq m Chronic Kidney Disease: <60 mL/min/1.73sq m Kidney failure: <15 mL/min/1.73sq m eGFR calculated using average adult body mass. Additional eGFR calculator available at: http://www.NeoDiagn[employer]ix/multiple_crcl_2012.htm GFR/1.73 sq M predicted among non-blacks MDRD (S/P/Bld) [Vol rate/Area] NOT REPORTED [place] Glucose [Mass/Vol] 111 mg/dL High 70 - 99 mg/dL [place] Interpretation and review of laboratory results Abnormal [place] Potassium [Moles/Vol] 4.6 mmol/L 3.7 - 5.3 mmol/L [place] Protein [Mass/Vol] 8.1 g/dL 6.4 - 8.3 g/dL [place] Sodium [Moles/Vol] 138 mmol/L 135 - 144 mmol/L [place] Urea nitrogen [Mass/Vol] 16 mg/dL 8 - 23 mg/dL [place] Lipid Panelon 08-25-2019 Cholesterol [Mass/Vol] 154 mg/dL <200 [place], [place] Comment on above: Cholesterol Guidelines: <200 Desirable 200-240 Borderline >240 Undesirable Cholesterol in HDL [Mass/Vol] 65 mg/dL >40 [place] Comment on above: HDL Guidelines: <40 Undesirable 40-59 Borderline >59 Desirable Cholesterol in LDL [Mass/Vol] 82 mg/dL 0 - 130 mg/dL [place] Comment on above: LDL Guidelines: <100 Desirable 100-129 Near to/above Desirable 130-159 Borderline >159 Undesirable Direct (measured) LDL and calculated LDL are not interchangeable tests. Cholesterol in VLDL [Mass/Vol] NOT REPORTED 1 - 30 mg/dL [place] Cholesterol.total/Ninoska sterol in HDL [Mass ratio] 2.4 {ratio} <5 [place] Triglyceride [Mass/Vol] 36 mg/dL <150 M [place], [place] Comment on above: Triglyceride Guidelines: <150 Desirable 150-199 Borderline 200-499 High >499 Very high Based on AHA Guidelines for fasting triglyceride, March 2012. Patient Fasting?on 0 Patient Fasting? yes [place] TSH with Reflexon 08-25-2019 TSH Qn 3.70 m[IU]/L [place] VL DUP CAROTID BILATERALon 0 08-25-2019 [facility] V[facility] Carotid Procedure Patient Name BORES Date of Study 08/25/2019 FAITH Lombardo Date of 1945 Gender Male Age 74 year(s) Race Room Number US Corporate ID [id number] # Patient Acct [id number] # MR # [id number] Scale Agent MICHELLE Toscano Interpreting Physician Anusha Lopez Referring Candace Burleson Referring Physician Nurse FLOOR SUPERVISOR Practitioner Procedure Type of Study: Cerebral: Carotid, Carotid Scan Bilateral. Indications for Study:Dizziness and Hypertension. Patient Status:Out Patient. Technical Quality:Good visualization. Comments: Basic Classification of ICA Stenosis: PSV - Peak Systolic Velocity Normal: No plaque or calcification identified, no elevation of PSV Mild: <50% spectral broadening without increased PSV Moderate: 50 - 69% PSV >125 - <230 cm/sec Severe: 70 - 99% PSV >230 cm/sec Critical: 80 - 99% PSV >230cm/sec and/or End Diastolic Velocities >120cm/sec Conclusions Summary 50-69% stenosis in the distal CCA and the ICA, bilaterally. Antegrade flow in the vertebrals. Signature Findings: Right Impression: Left Impression: There are areas of moderate There are areas of moderate heterogeneous plaque at the level of heterogeneous plaque at the level of Dist CCA, Carotid bulb, Prox ICA, Dist CCA, Carotid bulb, Prox ICA, Mid Mid ICA and Prox ECA. ICA and Prox ECA. There are elevated peak systolic There is an elevated peak systolic velocities at Prox ICA, Mid ICA, and velocity at Prox ICA of 153.1. Dist ICA of 187.61, 161.69, and In addition, a diameter reduction at 129.88 respectively. the ICA insertion is 76%. In addition, a diameter reduction at Vertebral artery flow is antegrade. the ICA insertion is 62%. Vertebral artery flow is antegrade. Risk Factors - The patient's risk factor(s) include: treated dyslipidemia and treated arterial hypertension. Velocities are measured in cm/s ; Diameters are measured in cm Carotid Right Measurements + +--------+ -------+-------+------ + +--------- ---------+ !Location !PSV !EDV !Angle !RI !%Stenosis !Tortuosity ! + +--------+ -------+-------+------ + +--------- ---------+ !Prox CCA !98.63 !14.41 ! !0.85 ! ! ! + +--------+ -------+-------+------ + +--------- ---------+ !Mid CCA !95.39 !16.03 ! !0.83 ! ! ! + +--------+ -------+-------+------ + +--------- ---------+ !Dist CCA !84.06 !12.79 ! !0.85 ! ! ! + +--------+ -------+-------+------ + +--------- ---------+ !Prox ICA !187.61 !45.04 ! !0.76 ! ! ! + +--------+ -------+-------+------ + +--------- ---------+ !Mid ICA !161.69 !22.36 ! !0.86 ! ! ! + +--------+ -------+-------+------ + +--------- ---------+ !Dist ICA !129.88 !18.36 ! !0.86 ! ! ! + +--------+ -------+-------+------ + +--------- ---------+ !Prox ECA !95.03 !9.06 ! !0.9 ! ! ! + +--------+ -------+-------+------ + +--------- ---------+ !Vertebral !58.2 !10.24 ! !0.82 ! ! ! + +--------+ -------+-------+------ + +--------- ---------+ - There is antegrade vertebral flow noted on the right side. - Additional Measurements:ICAPSV/CC APSV 1.9.ICAEDV/CCAEDV 3.13. Carotid Left Measurements + +--------+ -------+-------+------ + +--------- ---------+ !Location !PSV !EDV !Angle !RI !%Stenosis !Tortuosity ! + +--------+ -------+-------+------ + +--------- ---------+ !Prox CCA !88.66 !17.57 ! !0.8 ! ! ! + +--------+ -------+-------+------ + +--------- ---------+ !Mid CCA !84.71 !19.55 ! !0.77 ! ! ! + +--------+ -------+-------+------ + +--------- ---------+ !Dist CCA !88.66 !13.62 ! !0.85 ! ! ! + +--------+ -------+-------+------ + +--------- ---------+ !Prox ICA !153.1 !32.3 ! !0.79 ! ! ! + +--------+ -------+-------+------ + +--------- ---------+ !Mid ICA !66.08 !15.99 ! !0.76 ! ! ! + +--------+ -------+-------+------ + +--------- ---------+ !Dist ICA !85.68 !22.51 ! !0.74 ! ! ! + +--------+ -------+-------+------ + +--------- ---------+ !Prox ECA !110.21 !13.6 ! !0.88 ! ! ! + +--------+ -------+-------+------ + +--------- ---------+ !Vertebral !62.9 !13.6 ! !0.78 ! ! ! + +--------+ -------+-------+------ + +--------- ---------+ - There is antegrade vertebral flow noted on the left side. - Additional Measurements:ICAPSV/CC APSV 1.73.ICAEDV/CCAEDV 1.84. [facility] [place], [place] Kenneth, M[facility]pn Incoming Cardio Results From Cpacs/Ge - 08/25/2019 2:01 PM EDT [facility] Carotid Procedure Patient Name CHARLINE Date of Study 08/25/2019 FAITH Lombardo Date of 1945 Gender Male Age 74 year(s) Race Room Number Corporate ID [id number] # Patient Acct [id number] # MR # [id number] Scale Agent MICHELLE Toscano Interpreting Physician Anusha Lopez Referring Candace Burleson Referring Physician Nurse FLOOR SUPERVISOR Practitioner Procedure Type of Study: Cerebral: Carotid, Carotid Scan Bilateral. Indications for Study:Dizziness and Hypertension. Patient Status:Out Patient. Technical Quality:Good visualization. Comments: Basic Classification of ICA Stenosis: PSV - Peak Systolic Velocity Normal: No plaque or calcification identified, no elevation of PSV Mild: <50% spectral broadening without increased PSV Moderate: 50 - 69% PSV >125 - <230 cm/sec Severe: 70 - 99% PSV >230 cm/sec Critical: 80 - 99% PSV >230cm/sec and/or End Diastolic Velocities >120cm/sec Conclusions Summary 50-69% stenosis in the distal CCA and the ICA, bilaterally. Antegrade flow in the vertebrals. Signature Findings: Right Impression: Left Impression: There are areas of moderate There are areas of moderate heterogeneous plaque at the level of heterogeneous plaque at the level of Dist CCA, Carotid bulb, Prox ICA, Dist CCA, Carotid bulb, Prox ICA, Mid Mid ICA and Prox ECA. ICA and Prox ECA. There are elevated peak systolic There is an elevated peak systolic velocities at Prox ICA, Mid ICA, and velocity at Prox ICA of 153.1. Dist ICA of 187.61, 161.69, and In addition, a diameter reduction at 129.88 respectively. the ICA insertion is 76%. In addition, a diameter reduction at Vertebral artery flow is antegrade. the ICA insertion is 62%. Vertebral artery flow is antegrade. Risk Factors - The patient's risk factor(s) include: treated dyslipidemia and treated arterial hypertension. Velocities are measured in cm/s ; Diameters are measured in cm Carotid Right Measurements + +--------+ -------+-------+------ + +--------- --------- + !Location !PSV !EDV !Angle !RI !%Stenosis !Tortuosity ! + +--------+ -------+-------+------ + +--------- --------- + !Prox CCA !98.63 !14.41 ! !0.85 ! ! ! + +--------+ -------+-------+------ + +--------- --------- + !Mid CCA !95.39 !16.03 ! !0.83 ! ! ! + +--------+ -------+-------+------ + +--------- --------- + !Dist CCA !84.06 !12.79 ! !0.85 ! ! ! + +--------+ -------+-------+------ + +--------- --------- + !Prox ICA !187.61 !45.04 ! !0.76 ! ! ! + +--------+ -------+-------+------ + +--------- --------- + !Mid ICA !161.69 !22.36 ! !0.86 ! ! ! + +--------+ -------+-------+------ + +--------- --------- + !Dist ICA !129.88 !18.36 ! !0.86 ! ! ! + +--------+ -------+-------+------ + +--------- --------- + !Prox ECA !95.03 !9.06 ! !0.9 ! ! ! + +--------+ -------+-------+------ + +--------- --------- + !Vertebral !58.2 !10.24 ! !0.82 ! ! ! + +--------+ -------+-------+------ + +--------- --------- + - There is antegrade vertebral flow noted on the right side. - Additional Measurements:ICAPSV/CC APSV 1.9.ICAEDV/CCAEDV 3.13. Carotid Left Measurements + +--------+ -------+-------+------ + +--------- --------- + !Location !PSV !EDV !Angle !RI !%Stenosis !Tortuosity ! + +--------+ -------+-------+------ + +--------- --------- + !Prox CCA !88.66 !17.57 ! !0.8 ! ! ! + +--------+ -------+-------+------ + +--------- --------- + !Mid CCA !84.71 !19.55 ! !0.77 ! ! ! + +--------+ -------+-------+------ + +--------- --------- + !Dist CCA !88.66 !13.62 ! !0.85 ! ! ! + +--------+ -------+-------+------ + +--------- --------- + !Prox ICA !153.1 !32.3 ! !0.79 ! ! ! + +--------+ -------+-------+------ + +--------- --------- + !Mid ICA !66.08 !15.99 ! !0.76 ! ! ! + +--------+ -------+-------+------ + +--------- --------- + !Dist ICA !85.68 !22.51 ! !0.74 ! ! ! + +--------+ -------+-------+------ + +--------- --------- + !Prox ECA !110.21 !13.6 ! !0.88 ! ! ! + +--------+ -------+-------+------ + +--------- --------- + !Vertebral !62.9 !13.6 ! !0.78 ! ! ! + +--------+ -------+-------+------ + +--------- --------- + - There is antegrade vertebral flow noted on the left side. - Additional Measurements:ICAPSV/CC APSV 1.73.ICAEDV/CCAEDV 1.84. [employer] Vitamin B12 & Folateon 08-24 Cobalamin (Vitamin B12) [Mass/Vol] 944 pg/mL 232 - 1245 pg/mL [employer] [employer] Folate >20.0 >4.8 ng/mL [employer] [employer] Vital Signs Date Time Vital Sign Value Performing Clinician David morales 12-31-2023 09:24-0400 Blood Pressure Location Makayla Corona [facility] 12-31-2023 09:24-0400 Diastolic blood pressure 76 mm[Hg] Makayla Galea [facility] 12-31-2023 09:24-0400 Heart rate 72 /min Makayla Galea [facility] 12-31-2023 09:24-0400 Respiratory rate 16 /min Makayla Galea [facility] 12-31-2023 09:24-0400 Systolic blood pressure 124 mm[Hg] Makayla Galea [facility] 06-06-2023 19:37-0500 Body temperature 99.2 [degF] HOB MILL OPERATOR Candace Burleson Work Phone: [facility] 06-06-2023 19:37-0500 Diastolic blood pressure 82 mm[Hg] HOB MILL OPERATORAliya Burleson Work Phone: [phone] [place] [address] 06-06-2023 19:37-0500 Heart rate 76 /min HOB MILL OPERATORAliya Burleson Work Phone: [phone] [place] [address] 06-06-2023 19:37-0500 Respiratory rate 22 /min HOB MILL OPERATORAliya Burleson Work Phone: [facility] 06-06-2023 19:37-0500 SaO2% (BldA) [Mass fraction] 99 % HOB MILL OPERATORAliya Burleson Work Phone: [facility] 06-06-2023 19:37-0500 Systolic blood pressure 179 mm[Hg] HOB MILL OPERATORAliya Burleson Work Phone: [facility] 06-06-2023 14:59-0500 Body height 185.42 cm HOB MILL OPERATORAliya Burleson Work Phone: [facility] 06-06-2023 14:59-0500 Body weight 84.7 kg HOB MILL OPERATOR Candace Bree Work Phone: [facility] 01-07-2023 10:31-0400 Diastolic blood pressure 118 mm[Hg] Chintan CHAVEZ [facility] 01-07-2023 10:31-0400 Heart rate 87 /min Chintan CHAVEZ [facility] 01-07-2023 10:31-0400 Systolic blood pressure 157 mm[Hg] Chintan CHAVEZ [facility] 04-15-2022 09:28-0500 Diastolic blood pressure 77 mm[Hg] HOB MILL OPERATORAliya Rubalcava Bree Work Phone: [facility] 04-15-2022 09:28-0500 Heart rate 58 /min HOB MILL OPERATORAliya Rubalcava Bree Work Phone: [facility] 04-15-2022 09:28-0500 Respiratory rate 18 /min HOB MILL OPERATORAliya Rubalcava Bree Work Phone: [facility] 04-15-2022 09:28-0500 SaO2% (BldA) [Mass fraction] 100 % HOB MILL OPERATORAliya Rubalcava Bree Work Phone: [facility] 04-15-2022 09:28-0500 Systolic blood pressure 125 mm[Hg] HOB MILL OPERATORAliya Rubalcava Bree Work Phone: [facility] 04-15-2022 07:33-0500 Body height 185.42 cm HOB MILL OPERATORAliya Rubalcava Bree Work Phone: [facility] 04-15-2022 07:33-0500 Body temperature 97.9 [degF] HOB MILL OPERATORAliya Rubalcava Bree Work Phone: [facility] 04-15-2022 07:33-0500 Body weight 79.37 kg HOB MILL OPERATORAliya Rubalcava Bree Work Phone: [facility] 01-13-2022 10:01-0400 Blood Pressure Location Chintan CHAVEZ [facility] 01-13-2022 10:01-0400 Diastolic blood pressure 83 mm[Hg] Chintan CHAVEZ [facility] 01-13-2022 10:01-0400 Heart rate 81 /min Chintan CHAVEZ [facility] 01-13-2022 10:01-0400 Respiratory rate 16 /min Chintan CHAVEZ [facility] 01-13-2022 10:01-0400 Systolic blood pressure 129 mm[Hg] Chintan CHAVEZ [facility] Encounters Encounter Date Encounter Type Care Provider Facility Start: 01-27-2024 ambulatory [facility] Facility:[facility] Start: 12-31-2023 End: 12-31-2023 Patient encounter procedure Makayla Corona [facility] Start: 12-30-2023 End: 12-30-2023 Evaluation and management of inpatient JARETH RUSSELL [facility] Start: 12-29-2023 End: 12-30-2023 Evaluation and management of inpatient CARLOS MANUEL [facility] Start: 12-21-2023 End: 12-21-2023 Evaluation and management of inpatient CANDACE [facility] Start: 12-02-2023 End: 12-04-2023 ambulatory AB A LEÓN [facility] Start: 12-01-2023 End: 12-01-2023 ambulatory CANDACE [facility] Start: 11-12-2023 End: 11-12-2023 ambulatory [facility] Start: 10-31-2023 ambulatory [facility] Start: 08-04-2023 End: 08-04-2023 ambulatory [facility] Start: 06-06-2023 End: 06-06-2023 Emergency department patient visit HOB MILL OPERATORAliya Burleson Work Phone: [facility] Work Phone: Start: 04-27-2023 End: 04-27-2023 ambulatory [facility] Start: 03-16-2023 End: 03-16-2023 ambulatory [facility] Start: 01-07-2023 End: 01-08-2023 ambulatory Chintan CHAVEZ Facility:[facility] Start: 01-07-2023 End: 01-07-2023 Patient encounter procedure Chintan CHAVEZ [facility] Start: 08-26-2022 End: 08-26-2022 Patient encounter procedure Chintan CHAVEZ [facility] Start: 08-12-2022 End: 08-13-[address] MORE TRAORE Facility: Start: 04-21-2022 End: 04-21-2022 Subsequent hospital visit by physician Candace Burleson HOB MILL OPERATOR - FLOOR SUPERVISOR Work Phone: [facility] Comment on above: Mixed hyperlipidemia ; Bilateral carotid artery stenosis; Essential hypertension; History of alcoholism (HCC); Primary hypertension Start: 04-15-2022 End: 04-15-2022 Admission to same day surgery center PORTER Burleson Work Phone: [facility] Start: 04-15-2022 End: 04-15-2022 ambulatory PORTER Burleson Work Phone: [facility] Work Phone: Start: 04-11-2022 End: 04-11-2022 ambulatory HOB MILL OPERATOR Candace Burleson Work Phone: [facility] Work Phone: Start: 04-11-2022 End: 04-11-2022 Patient encounter procedure PORTER Burleson Work Phone: [id number] Start: 03-13-2022 End: 03-15-2022 Subsequent hospital visit by physician Brian Additional [facility] Comment on above: Fall, initial encoun ter Start: 01-13-2022 End: 01-13-2022 Patient encounter procedure Chintan Chely CHAVEZ [facility] Start: 11-11-2021 End: 11-13-2021 Subsequent hospital visit by physician Brian Additional [facility] Comment on above: Fall, initial encoun ter; Acute midline low back pain without sciatica Start: 06-25-2021 End: 06-26-2021 Evaluation and management of inpatient PHYSICIAN UNKNOWN Facility:[facility] Start: 03-28-2021 End: 03-30-2021 Subsequent hospital visit by physician [facility] Comment on above: Dizziness; Mild alcohol use disorder, in controlled environment; Bilateral carotid artery stenosis; Short-term memory loss Start: 10-22-2020 End: 10-22-2020 Subsequent hospital visit by physician Candace Burleson HOB MILL OPERATOR - FLOOR SUPERVISOR Work Phone: [facility] Comment on above: Prostate cancer scre ening; Mixed hyperlipidemia; Essential hypertension; Thyroid disorder screening Start: 08-25-2019 End: 08-27-2019 Subsequent hospital visit by physician Tracy Vasc Us [facility] Comment on above: Dizziness; Smooth tongue; Screening for thyroid disorder; Essential hypertension; Pure hypercholesterolemia; Prostate cancer screening Dizziness; Essential hypertension Start: 08-22-2019 End: 08-22-2019 Subsequent hospital visit by physician Brian Ekg [facility] E[facility] Comment on above: Dizziness; Essential hypertension; Pure hypercholesterolemia Dizziness Procedures Date Procedure Procedure Detail Performing Clinician Start: 12-29-2023 Carotid endarterectomy Makayla Corona Start: 06-06-2023 Plain chest X-ray PORTER Burleson Work Phone: Start: 04-21-2022 Basic metabolic pane l calcium total Candace Medina Bree HOB MILL OPERATOR - FLOOR SUPERVISOR Work Phone: Start: 04-21-2022 Lipid panel Candace Maciel ebs HOB MILL OPERATOR - FLOOR SUPERVISOR Work Phone: Start: 04-21-2022 PATIENT FASTING? Candacerandal Burleson HOB MILL OPERATOR - FLOOR SUPERVISOR Work Phone: Start: 04-15-2022 Colonoscopy HOB MILL OPERATOR Candace Burleson Work Phone: Start: 03-13-2022 Radex facial bones c omplete minimum 3 views Johnny A Villaaliya HOB MILL OPERATOR - FLOOR SUPERVISOR Work Phone: Start: 11-11-2021 Radex spine lumbosac ral minimum 4 views Candace Burleson HOB MILL OPERATOR - FLOOR SUPERVISOR Work Phone: Start: 03-28-2021 Mri brain brain stem w/o contrast material Candace Burleson HOB MILL OPERATOR - FLOOR SUPERVISOR Work Phone: Start: 10-22-2020 PSA screening Candace valverde HOB MILL OPERATOR - FLOOR SUPERVISOR Work Phone: Comment on above: The Nataliya ECLIA as say is used. Results obtained with different assay methods cannot be used interchangeably. Start: 10-22-2020 Basic metabolic pane l calcium total Candace Carol Bree HOB MILL OPERATOR - FLOOR SUPERVISOR Work Phone: Start: 10-22-2020 Lipid panel Candace cadena HOB MILL OPERATOR - FLOOR SUPERVISOR Work Phone: Start: 10-22-2020 PATIENT FASTING? Candace Carol Bree HOB MILL OPERATOR - FLOOR SUPERVISOR Work Phone: Start: 06-08-2020 Procedure on artery Paolo CHAVEZ Comment on above: carotid artery Start: 08-25-2019 Duplex scan extracra nial art compl bi study Candace Burleson Work Phone: Start: 08-25-2019 Assay of thyroid stimulating hormone tsh Candace Burleson Work Phone: Start: 08-25-2019 Comprehensive metabo lic panel Candace Burleson Work Phone: Start: 08-25-2019 Lipid panel Candace Maciel tammi Work Phone: Start: 08-25-2019 PATIENT FASTING? Candace Burleson Work Phone: Start: 08-25-2019 End: 08-25-2019 PSA screening Candace Burleson Work Phone: Comment on above: The Nataliya ECLIA as say is used. Results obtained with different assay methods cannot be used interchangeably. Start: 08-25-2019 VITAMIN B12 & FOLATE Magalie Khoury Work Phone: Start: 09-02-2018 Transurethral water vapor ablation of prostate Makayla Galea Start: 08-05-2018 Cystoscopy Makayla Shadi ea Colonoscopy Chintan CHAVEZ SARS Antigen (LFIA) PORTER Hines randal Burleson Work Phone: Structure of bursa ( body structure) Chintan CHAVEZ Tonsillectomy Chintan CHAVEZ Plan of Treatment Date Care Activity Detail Author Start: 12-15-2023 DTaP/Tdap/Td vaccine (2 - Td or Tdap) DTaP/Tdap/Td vaccine (2 - Td or Tdap) [facility] Start: 12-15-2023 DTaP/Tdap/Td vaccine (2 - Td) DTaP/Tdap/Td vaccine (2 - Td) [facility], [place] Start: 04-27-2023 End: 04-27-2023 Patient encounter procedure 04/27/2023 Office Visit Family Medicine Candace Burleson, HOB MILL OPERATOR - FLOOR SUPERVISOR [address] [place] [address] [facility] Start: 04-22-2023 Annual Wellness Visi t (AWV) Annual Wellness Visit (AWV) [facility] Start: 04-21-2023 Lipid panel Lipids [facility] Start: 11-11-2022 Depression Screen Depression Screen [facility] Start: 11-11-2022 Lipid panel Lipids [facility] Start: 10-20-2022 End: 10-20-2022 Patient encounter procedure 10/20/2022 Office Visit Family Medicine Candace Burleson, HOB MILL OPERATOR - FLOOR SUPERVISOR [address] [place] [address] [facility] Start: 04-29-2022 COVID-19 Vaccine (4 - Booster for Pfizer series) COVID-19 Vaccine (4 - Booster for Pfizer series) [facility] Start: 04-15-2022 [facility] Start: 01-06-2022 Influenza vaccination Flu vaccine (# 1) [facility] Start: 12-02-2021 End: 12-02-2021 Patient encounter procedure 12/02/2021 Office Visit Family Candace Artis, HOB MILL OPERATOR - FLOOR SUPERVISOR [address] [place] [address] [facility] Start: 10-28-2021 End: 10-28-2021 Patient encounter procedure 10/28/2021 Office Visit Family Candace Artis, HOB MILL OPERATOR - FLOOR SUPERVISOR [address] [place] [address] [phone] [facility] Start: 10-23-2021 Annual Wellness Visi t (AWV) Annual Wellness Visit (AWV) [facility] Start: 10-22-2021 Creatinine measurement Creatinine monitoring [facility] Work Phone: Start: 10-22-2021 Lipid panel Lipid screen [facility] Work Phone: Start: 10-22-2021 Potassium monitoring Potassium monit oring [facility] Work Phone: Start: 09-06-2021 Colon cancer screen colonoscopy Colon cancer screen colonoscopy [facility] [place] Start: 04-01-2022 Screening for malignant neoplasm of colon Colon cancer screen colonoscopy [facility] [employer] Phone: Start: 08-05-2021 COVID-19 Vaccine (3 - Booster for Pfizer series) COVID-19 Vaccine (3 - Booster for Pfizer series) MEGAN SANCHEZ [facility] Start: 04-29-2021 End: 04-29-2021 Patient encounter procedure 04/29/2021 Office Visit Family Medicine Candace Burleson, HOB MILL OPERATOR - FLOOR SUPERVISOR [address] [place] [address] [phone] [facility] Start: 02-06-2021 Influenza vaccination [facility] [employer] Phone: Start: 08-24-2020 Creatinine monitoring Creatinine mon [place], [place] Start: 08-24-2020 Lipid screen Lipid screen [place], [place] Start: 08-24-2020 Potassium monitoring Potassium monit [place], [place] Start: 08-17-2020 COVID-19 Vaccine (2 - Pfizer 2-dose series) COVID-19 Vaccine (2 - Pfizer 2-dose series) [facility] [employer] Phone: Start: 09-05-2019 End: 09-05-2019 Office Visit 09/05/2019 Office Visit Family Medicine Candace Burleson, HOB MILL OPERATOR - FLOOR SUPERVISOR [address] [place] [address] [phone] [facility] Start: 08-25-2019 End: 08-25-2019 Appointment 08/25/2019 Appointment Vascular Lab [facility] Start: 04-25-2019 Creatinine monitoring Creatinine mon [place], [place] Start: 04-25-2019 Lipid screen Lipid screen [place], [place] Start: 04-25-2019 Potassium monitoring Potassium monit [place], [place] Start: 04-14-2019 Pneumococcal 65+ years Vaccine (2 of 2 - PPSV23) Pneumococcal 65+ years Vaccine (2 of 2 - PPSV23) [place], [place] Start: 02-06-2019 Influenza vaccination Flu vaccine (# 1) [place], [place] Start: 11-24-2018 Annual Wellness Visi t (AWV) Annual Wellness Visit (AWV) [place], [place] Start: 01-01-2017 Pneumococcal 65+ years Vaccine (2 - PPSV23 or PCV20) Pneumococcal 65+ years Vaccine (2 - PPSV23 or PCV20) [facility] EKG 12 Lead EKG 12 Lead ECG Routine Dizziness Essential hypertension Pure hypercholesterolemia 08/22/2019 2:07 PM EDT [place], [place] End: 08-22-2019 Holter Monitor 48 Hour Holter Monitor 48 Hour Cardiac Services Routine Dizziness 1 Occurrences starting 08/22/2019 until 08/22/2019 [place], [place] Comment on above: 1 Occurrences starti ng 08/22/2019 until 08/22/2019 Patient Education [facility] ED/OP COV ID-19 Discharge Instructions [facility] Work Phone: Patient referral [facility] Work Phone: Immunizations Immunization Date Immunization Notes Care Provider Anabel miller 04-21-2022 pneumococcal polysaccharide vaccine, 23 valent Candace Burleson HOB MILL OPERATOR - FLOOR SUPERVISOR Work Phone: [facility] Work Phone: Comment on above: Result Comment: 2022: VIS DATE: 04/06/2019 03-27-2022 influenza virus vacc ine, unspecified formulation Chintan CHAVEZ [facility] 03-27-2022 Influenza, FLUZONE ( age 65 y+), High Dose, 0.7mL Candace Burleson HOB MILL OPERATOR - FLOOR SUPERVISOR Work Phone: [facility] 03-27-2022 SARS-CoV-2 (COVID-19 ) [id number] Chintan KATHY [facility] 12-27-2021 SARS-CoV-2 mRNA ([id number]) vaccine Chintan KATHY [facility] 04-01-2021 influenza virus vacc ine, unspecified formulation [place] [facility] Comment on above: Result Comment: 2022: VIS DATE: 01/11/2021 04-01-2021 Influenza, Quadv, adjuvanted, 65 yrs +, IM, PF (Fluad) [facility] Work Phone: 03-05-2021 SARS-CoV-2 (COVID-19 ) mRNA [id number] vax [place] [facility] Comment on above: Result Comment: 2022: [id number] 07-27-2020 COVID-19, Pfizer, PF , 30mcg/0.3mL Candace Splunk HOB MILL OPERATOR - FLOOR SUPERVISOR Work Phone: [employer] Work Phone: 07-06-2020 SARS-CoV-2 (COVID-19 ) mRNA [id number] vax [place] [facility] Comment on above: Result Comment: 2022: [id number] 03-26-2020 influenza virus vacc ine, unspecified formulation [place] [facility] 04-12-2019 influenza virus vacc ine, unspecified formulation [place] [facility] 09-08-2018 zoster vaccine recombinant [facility]2018 zoster vaccine recombinant [facility] [employer] [facility] 04-20-2018 influenza virus vacc ine, unspecified formulation [place] [facility] 04-20-2018 influenza, high dose seasonal, preservative-free Candace Bree [facility] 01-02-2016 pneumococcal conjuga te vaccine, 13 valent Candace Burleson [place], [place] 05-10-2015 influenza virus vacc ine, unspecified formulation Chintan CHAVEZ [facility] 05-10-2015 influenza virus vacc ine, whole virus Candace Burleson [place] 04-14-2014 pneumococcal conjuga te vaccine, 7 valent Candace Burleson [facility] 04-14-2014 pneumococcal polysaccharide vaccine, 23 valent Candace Burleson [facility] 12-14-2013 tetanus toxoid, redu siva diphtheria toxoid, and acellular pertussis vaccine, adsorbed Candace Burleson [facility] 10-03-2013 zoster vaccine, live Candace Burleson [place], [place] Payers Date Payer Category Payer Self-pay [id number] 2023 Unknown [id number] 2014 Medicare MEDICARE RAILROA D MEDICARE xxxxxxxxxxx 2014-Present [phone] [place] [address] xxxxxxxxxxx [id number] 2014 Unknown [employer] [id number] 2014-Present [address] [address] [place] [address] [id number]. [id number] 2014 Unknown [employer] [facility] [id number] 2014-Present [address] [address] [place] [address] [id number]. [id number] 1959 Medicare [id number]. [id number] 1959 Unknown [id number] [id number]. [id number] 1945 Unknown [id number] 2.16.840.1.554129.3.579.2.647 1945 Unknown [id number] 2.16.840.1.073490.3.579.2.593 1945 Unknown [id number] 2.16.840.1.747178.3.579.2.727 1945 Unknown [id number] 2.16.840.1.035046.3.579.2.727 1945 Unknown [id number] 2.16.840.1.604522.3.579.2.174 1945 Unknown [id number] 2.16.840.1.789514.3.579.2.174 1945 Unknown [id number] 2.16.840.1.987241.3.579.2.174 1945 Unknown [id number] 2.16.840.1.032903.3.579.2.174 1945 Unknown [id number] 2.16.840.1.769247.3.579.2.1286 1945 Unknown [id number] 2.16.840.1.325318.3.579.2.1286 1945 Unknown [id number] 2.16.840.1.252222.3.579.2.1286 1945 Unknown [id number] 2.16.840.1.975907.3.579.2.1286 1945 Unknown [id number] 2.16.840.1.806642.3.579.2.1286 1945 Unknown [id number] 2.16.840.1.343888.3.579.2.1286 Medicare Medicare Outpatient [id number] Unknown Regular Insurance [id number] Unknown [id number] Social History Date Type Detail Facility Start: 08-22-2019 End: 12-31-2023 Tobacco smoking status SCIS Former smoker [facility] [place] History of tobacco use Pipe Sm[place] Start: 08-22-2019 End: 04-21-2022 Alcohol intake Current drinker of alcohol (finding) [place] Start: 08-22-2019 End: 11-11-2021 History SDOH Food Worry 1 [place], [place] Start: 08-22-2019 End: 04-21-2022 History SDOH Transport Med 2 [place] Start: 11-11-2012 Alcohol Comment daily/wine [place], [place] Start: 1945 Sex Assigned At Not on file [place] Start: 10-22-2020 End: 03-13-2022 Tobacco use and exposure Never used [employer] Start: 10-22-2020 End: 04-21-2022 Alcohol intake [facility] Phone: Start: 10-22-2020 End: 11-11-2021 History SDOH Financial 5 [employer] Phone: Tobacco smoking status Never [facility] Sex Assigned At Male [facility] [employer] History of tobacco use Current smoker [facility] [employer] Phone: History of tobacco use Cigarette Smoker B [facility] [employer] Phone: Start: 03-13-2020 End: 06-06-2023 Tobacco smoking status SCIS Never smoked tobacco (finding) [facility] Start: 1945 Sex Assigned At Male F [facility] Start: 04-21-2022 History SDOH Physica l Activity DPW [employer] Work Phone: Start: 04-21-2022 History SDOH Physica l Activity MPS 4 [employer] Work Phone: Medical Equipment Procedure Code Equipment Code Equipment Origin al Text Equipment Identifier Dates Repair, hernia, inguinal, with mesh [id number] FDA Start: 03-13-2020 Repair, hernia, inguinal, with mesh [id number] FDA Start: 03-13-2020 Repair, hernia, inguinal, with mesh [id number] FDA Start: 03-13-2020 Goals Date Patient Goal Desired Activity /State Functional Status Date Assessment Result Facility 12-31-2023 Functional Status N/A [facility] 01-07-2023 Functional Status N/A [facility] 01-13-2022 Functional Status No [facility] Clinical Notes 06-30-2021 to 12-31-2023 Note Date & Type Note Facility 12-31-2023 Hospital Discharge instructions Patient Education 12/31/2023 11:06:30 Benign Prostatic Hyperplasia Benign Prostatic Hyperplasia Benign prostatic hyperplasia (BPH) is an enlarged prostate gland that is caused by the normal aging process. The prostate may get bigger as a man gets older. The condition is not caused by cancer. The prostate is a walnut-sized gland that is involved in the production of semen. It is located in front of the rectum and below the bladder. The bladder stores urine. The urethra carries stored urine out of the body. An enlarged prostate can press on the urethra. This can make it harder to pass urine. The buildup of urine in the bladder can cause infection. Back pressure and infection may progress to bladder damage and kidney (renal) failure. What are the causes? This condition is part of the normal aging process. However, not all men develop problems from this condition. If the prostate enlarges away from the urethra, urine flow will not be blocked. If it enlarges toward the urethra and compresses it, there will be problems passing urine. What increases the risk? This condition is more likely to develop in men older than 50 years. What are the signs or symptoms? Symptoms of this condition include: Getting up often during the night to urinate. Needing to urinate frequently during the day. Difficulty starting urine flow. Decrease in size and strength of your urine stream. Leaking (dribbling) after urinating. Inability to pass urine. This needs immediate treatment. Inability to completely empty your bladder. Pain when you pass urine. This is more common if there is also an infection. Urinary tract infection (UTI). How is this diagnosed? This condition is diagnosed based on your medical history, a physical exam, and your symptoms. Tests will also be done, such as: A post-void bladder scan. This measures any amount of urine that may remain in your bladder after you finish urinating. A digital rectal exam. In a rectal exam, your health care provider checks your prostate by putting a lubricated, gloved finger into your rectum to feel the back of your prostate gland. This exam detects the size of your gland and any abnormal lumps or growths. An exam of your urine (urinalysis). A prostate specific antigen (PSA) screening. This is a blood test used to screen for prostate cancer. An ultrasound. This test uses sound waves to electronically produce a picture of your prostate gland. Your health care provider may refer you to a specialist in kidney and prostate diseases (urologist). How is this treated? Once symptoms begin, your health care provider will monitor your condition (active surveillance or watchful waiting). Treatment for this condition will depend on the severity of your condition. Treatment may include: Observation and yearly exams. This may be the only treatment needed if your condition and symptoms are mild. Medicines to relieve your symptoms, including: ?Medicines to shrink the prostate. ?Medicines to relax the muscle of the prostate. Surgery in severe cases. Surgery may include: ?Prostatectomy. In this procedure, the prostate tissue is removed completely through an open incision or with a laparoscope or robotics. ?Transurethral resection of the prostate (TURP). In this procedure, a tool is inserted through the opening at the tip of the penis (urethra). It is used to cut away tissue of the inner core of the prostate. The pieces are removed through the same opening of the penis. This removes the blockage. ?Transurethral incision (TUIP). In this procedure, small cuts are made in the prostate. This lessens the prostate's pressure on the urethra. ?Transurethral microwave thermotherapy (TUMT). This procedure uses microwaves to create heat. The heat destroys and removes a small amount of prostate tissue. ?Transurethral needle ablation (TUNA). This procedure uses radio frequencies to destroy and remove a small amount of prostate tissue. ?Interstitial laser coagulation (ILC). This procedure uses a laser to destroy and remove a small amount of prostate tissue. ?Transurethral electrovaporization (TUVP). This procedure uses electrodes to destroy and remove a small amount of prostate tissue. ?Prostatic urethral lift. This procedure inserts an implant to push the lobes of the prostate away from the urethra. Follow these instructions at home: Take lgaj-nob-uvmstrf and prescription medicines only as told by your health care provider. Monitor your symptoms for any changes. Contact your health care provider with any changes. Avoid drinking large amounts of liquid before going to bed or out in public. Avoid or reduce how much caffeine or alcohol you drink. Give yourself time when you urinate. Keep all follow-up visits. This is important. Contact a health care provider if: You have unexplained back pain. Your symptoms do not get better with treatment. You develop side effects from the medicine you are taking. Your urine becomes very dark or has a bad smell. Your lower abdomen becomes distended and you have trouble passing urine. Get help right away if: You have a fever or chills. You suddenly cannot urinate. You feel light-headed or very dizzy, or you faint. There are large amounts of blood or clots in your urine. Your urinary problems become hard to manage. You develop moderate to severe low back or flank pain. The flank is the side of your body between the ribs and the hip. These symptoms may be an emergency. Get help right away. Call 911. Do not wait to see if the symptoms will go away. Do not drive yourself to the hospital. Summary Benign prostatic hyperplasia (BPH) is an enlarged prostate that is caused by the normal aging process. It is not caused by cancer. An enlarged prostate can press on the urethra. This can make it hard to pass urine. This condition is more likely to develop in men older than 50 years. Get help right away if you suddenly cannot urinate. This information is not intended to replace advice given to you by your health care provider. Make sure you discuss any questions you have with your health care provider. Document Revised: 12/11/2021 Document Reviewed: 12/11/2021 [employer] Patient Education 2022 WORK[employer]. Follow Up Care 12/31/2023 08:38:06 With:KATHY HILL, Cihntan Mo, URL Address: [facility] [address] [place] [address]- When: Unknown Comments:Appointment has already been scheduled [facility] 08-04-2023 Note Patient here for 1 y ear follow up hypertension, hyperlipidemia, and carotid artery stenosis. Doing very well from cardiac standpoint. says he was diagnosed with dementia since last visit. He denies chest pain, SOB, palpitations, and lightheadedness/syncope. He follows with Dr. Garcia for his carotid disease. Had labs in Mar and Apr 2023. Review of Systems HENT: Positive for hearing loss. All other systems reviewed and are negative. [facility] 08-04-2023 Note Cardiovascular Medic ine [facility] SUBJECTIVE Chief Complaint Patient presents with Hypertension Hyperlipidemia Faith Olivier is a 78 y.o. male here for follow-up. His accompanied him. Patient here for 1 year follow up hypertension, hyperlipidemia, and carotid artery stenosis. Doing very well from cardiac standpoint. says he was diagnosed with dementia since last visit. He denies chest pain, SOB, palpitations, and lightheadedness/syncope. He follows with Dr. Garcia for his carotid disease. Had labs in Mar and Apr 2023. HPI PMHx: HTN, HLD, NANCY s/p endarterectomy He denies any changes since last seen. He tries to stay active at home, tries to walk a lot. Denies c/o CP, dyspnea, orthopnea, PND, LE edema, dizziness/LH, palpitations, syncope. Patient Active Problem List Diagnosis Carotid artery stenosis HTN (hypertension) Hyperlipidemia Benign prostatic hyperplasia with urinary obstruction Bilateral carotid artery occlusion Carotid stenosis, bilateral Gross hematuria Major depressive disorder, recurrent, moderate (CMS/HCC) Nocturia Poor urinary stream Past Medical History: Diagnosis Date Carotid artery stenosis Hyperlipidemia Hypertension Family History Problem Relation Name Age of Onset Stroke Father Diabetes Father Allergies Allergen Reactions Ibuprofen Other Other reaction(s): HYPERTENSION Other Reaction(s): HYPERTENSION, increases BP Other reaction(s): HYPERTENSION Namenda [Memantine] Nsaids (Non-Steroidal Anti-Inflammatory Drug) Elevates blood pressure Elevates blood pressure ROS HENT: Positive for hearing loss. All other systems reviewed and are negative. OBJECTIVE Visit Vitals BP 118/68 (BP Location: Right arm, Patient Position: Sitting) Pulse 81 Ht 1.854 m (6' 1 ) Wt 84.8 kg (187 lb) SpO2 99% BMI 24.67 kg/m??? BSA 2.09 m??? Medications: Current Outpatient Medications: aspirin 81 mg EC tablet, Take 81 mg by mouth in the morning., Disp: , Rfl: donepezil (Aricept) 10 mg tablet, Take 10 mg by mouth at bedtime., Disp: , Rfl: FLUoxetine (PROzac) 40 mg capsule, TAKE 1 CAPSULE BY MOUTH DAILY FOR ANXIETY OR MOOD, Disp: , Rfl: losartan (Cozaar) 25 mg tablet, TAKE 1 TABLET(25 MG) BY MOUTH IN THE MORNING, Disp: 90 tablet, Rfl: 3 QUEtiapine (SEROquel) 50 mg tablet, Take 50 mg by mouth in the morning and at bedtime., Disp: , Rfl: simvastatin (Zocor) 40 mg tablet, Take 1 tablet (40 mg) by mouth at bedtime., Disp: 90 tablet, Rfl: 3 tamsulosin (Flomax) 0.4 mg 24 hr capsule, , Disp: , Rfl: Physical Exam Constitutional: Appearance: Normal appearance. He is normal weight. HENT: Head: Normocephalic and atraumatic. Right Ear: External ear normal. Left Ear: External ear normal. Eyes: Extraocular Movements: Extraocular movements intact. Pupils: Pupils are equal, round, and reactive to light. Neck: Vascular: No carotid bruit. Cardiovascular: Rate and Rhythm: Normal rate and regular rhythm. Pulses: Normal pulses. Heart sounds: Normal heart sounds. Pulmonary: Effort: Pulmonary effort is normal. Breath sounds: Normal breath sounds. Abdominal: General: Bowel sounds are normal. Palpations: Abdomen is soft. Musculoskeletal: General: Normal range of motion. Cervical back: Neck supple. Right lower leg: No edema. Left lower leg: No edema. Skin: General: Skin is warm and dry. Neurological: General: No focal deficit present. Mental Status: He is alert and oriented to person, place, and time. Psychiatric: Mood and Affect: Mood normal. Behavior: Behavior normal. Thought Content: Thought content normal. Judgment: Judgment normal. Labs: Legacy Encounter on 06/26/2021 Component Date Value Ref Range Status Monospot 06/26/2021 NEGATIVE NEGATIVE Final No results found for: EXTCMP , BMPR1A , CBCDIF , BNP , LASAP , RED 04/27/2023 WBC 3.5 - 11.0 k/uL 5.1 RBC 4.50 - 5.90 m/uL 4.62 Hemoglobin 13.5 - 17.5 g/dL 14.7 Hematocrit 41.0 - 53.0 % 43.9 MCV 80.0 - 100.0 fL 95.0 MCH 26.0 - 34.0 pg 31.8 MCHC 31.0 - 37.0 g/dL 33.5 RDW 12.1 - 15.2 % 12.8 Platelets 140 - 450 k/uL 191 MPV 6.0 - 12.0 fL 9.0 Neutrophils % 39 - 75 % 57 Lymphocytes % 13 - 44 % 32 Monocytes % 5 - 9 % 10 High Eosinophils % 0 - 5 % 1 Basophils % 0 - 2 % 0 Immature Granulocytes 0 - 5 % 0 Neutrophils Absolute 2.1 - 6.5 k/uL 2.87 Lymphocytes Absolute 1.00 - 4.80 k/uL 1.60 Monocytes Absolute 0.00 - 1.00 k/uL 0.51 Eosinophils Absolute 0.00 - 0.40 k/uL 0.06 Basophils Absolute 0.00 - 0.20 k/uL 0.02 Absolute Immature Granulocyte 0.00 - 0.30 k/uL 0.01 Lipids 03/16/23 Cholesterol 0 - 199 mg/dL 138 Comment: Cholesterol Guidelines: <200 Desirable 200-240 Borderline >240 Undesirable HDL >40 mg/dL 53 Comment: HDL Guidelines: <40 Undesirable 40-59 Borderline >59 Desirable LDL Cholesterol 0 - 100 mg/dL 78 Comment: LDL Guideline (more content not included)... [facility] 01-07-2023 Hospital Discharge instructions Patient Education 01/07/2023 10:53:04 Benign Prostatic Hyperplasia Benign Prostatic Hyperplasia Benign prostatic hyperplasia (BPH) is an enlarged prostate gland that is caused by the normal aging process. The prostate may get bigger as a man gets older. The condition is not caused by cancer. The prostate is a walnut-sized gland that is involved in the production of semen. It is located in front of the rectum and below the bladder. The bladder stores urine. The urethra carries stored urine out of the body. An enlarged prostate can press on the urethra. This can make it harder to pass urine. The buildup of urine in the bladder can cause infection. Back pressure and infection may progress to bladder damage and kidney (renal) failure. What are the causes? This condition is part of the normal aging process. However, not all men develop problems from this condition. If the prostate enlarges away from the urethra, urine flow will not be blocked. If it enlarges toward the urethra and compresses it, there will be problems passing urine. What increases the risk? This condition is more likely to develop in men older than 50 years. What are the signs or symptoms? Symptoms of this condition include: Getting up often during the night to urinate. Needing to urinate frequently during the day. Difficulty starting urine flow. Decrease in size and strength of your urine stream. Leaking (dribbling) after urinating. Inability to pass urine. This needs immediate treatment. Inability to completely empty your bladder. Pain when you pass urine. This is more common if there is also an infection. Urinary tract infection (UTI). How is this diagnosed? This condition is diagnosed based on your medical history, a physical exam, and your symptoms. Tests will also be done, such as: A post-void bladder scan. This measures any amount of urine that may remain in your bladder after you finish urinating. A digital rectal exam. In a rectal exam, your health care provider checks your prostate by putting a lubricated, gloved finger into your rectum to feel the back of your prostate gland. This exam detects the size of your gland and any abnormal lumps or growths. An exam of your urine (urinalysis). A prostate specific antigen (PSA) screening. This is a blood test used to screen for prostate cancer. An ultrasound. This test uses sound waves to electronically produce a picture of your prostate gland. Your health care provider may refer you to a specialist in kidney and prostate diseases (urologist). How is this treated? Once symptoms begin, your health care provider will monitor your condition (active surveillance or watchful waiting). Treatment for this condition will depend on the severity of your condition. Treatment may include: Observation and yearly exams. This may be the only treatment needed if your condition and symptoms are mild. Medicines to relieve your symptoms, including: ?Medicines to shrink the prostate. ?Medicines to relax the muscle of the prostate. Surgery in severe cases. Surgery may include: ?Prostatectomy. In this procedure, the prostate tissue is removed completely through an open incision or with a laparoscope or robotics. ?Transurethral resection of the prostate (TURP). In this procedure, a tool is inserted through the opening at the tip of the penis (urethra). It is used to cut away tissue of the inner core of the prostate. The pieces are removed through the same opening of the penis. This removes the blockage. ?Transurethral incision (TUIP). In this procedure, small cuts are made in the prostate. This lessens the prostate's pressure on the urethra. ?Transurethral microwave thermotherapy (TUMT). This procedure uses microwaves to create heat. The heat destroys and removes a small amount of prostate tissue. ?Transurethral needle ablation (TUNA). This procedure uses radio frequencies to destroy and remove a small amount of prostate tissue. ?Interstitial laser coagulation (ILC). This procedure uses a laser to destroy and remove a small amount of prostate tissue. ?Transurethral electrovaporization (TUVP). This procedure uses electrodes to destroy and remove a small amount of prostate tissue. ?Prostatic urethral lift. This procedure inserts an implant to push the lobes of the prostate away from the urethra. Follow these instructions at home: Take moae-rwx-yctbvwz and prescription medicines only as told by your health care provider. Monitor your symptoms for any changes. Contact your health care provider with any changes. Avoid drinking large amounts of liquid before going to bed or out in public. Avoid or reduce how much caffeine or alcohol you drink. Give yourself time when you urinate. Keep all follow-up visits. This is important. Contact a health care provider if: You have unexplained back pain. Your symptoms do not get better with treatment. You develop side effects from the medicine you are taking. Your urine becomes very dark or has a bad smell. Your lower abdomen becomes distended and you have trouble passing urine. Get help right away if: You have a fever or chills. You suddenly cannot urinate. You feel light-headed or very dizzy, or you faint. There are large amounts of blood or clots in your urine. Your urinary problems become hard to manage. You develop moderate to severe low back or flank pain. The flank is the side of your body between the ribs and the hip. These symptoms may be an emergency. Get help right away. Call 911. Do not wait to see if the symptoms will go away. Do not drive yourself to the hospital. Summary Benign prostatic hyperplasia (BPH) is an enlarged prostate that is caused by the normal aging process. It is not caused by cancer. An enlarged prostate can press on the urethra. This can make it hard to pass urine. This condition is more likely to develop in men older than 50 years. Get help right away if you suddenly cannot urinate. This information is not intended to replace advice given to you by your health care provider. Make sure you discuss any questions you have with your health care provider. Document Revised: 12/11/2021 Document Reviewed: 12/11/2021 [employer] Patient Education 2022 [employer]. Follow Up Care 01/13/2022 10:26:06 With:KATHY HILL, Chintan Mo, URL Address: [address] [place], [place] [id number]- When: Unknown [facility] 08-25-2022 Hospital Discharge instructions Patient Education 08/25/2022 15:20:40 Benign Prostatic Hyperplasia Benign Prostatic Hyperplasia Benign prostatic hyperplasia (BPH) is an enlarged prostate gland that is caused by the normal aging process and not by cancer. The prostate is a walnut-sized gland that is involved in the production of semen. It is located in front of the rectum and below the bladder. The bladder stores urine and the urethra is the tube that carries the urine out of the body. The prostate may get bigger as a man gets older. An enlarged prostate can press on the urethra. This can make it harder to pass urine. The build-up of urine in the bladder can cause infection. Back pressure and infection may progress to bladder damage and kidney (renal) failure. What are the causes? This condition is part of a normal aging process. However, not all men develop problems from this condition. If the prostate enlarges away from the urethra, urine flow will not be blocked. If it enlarges toward the urethra and compresses it, there will be problems passing urine. What increases the risk? This condition is more likely to develop in men over the age of 50 years. What are the signs or symptoms? Symptoms of this condition include: Getting up often during the night to urinate. Needing to urinate frequently during the day. Difficulty starting urine flow. Decrease in size and strength of your urine stream. Leaking (dribbling) after urinating. Inability to pass urine. This needs immediate treatment. Inability to completely empty your bladder. Pain when you pass urine. This is more common if there is also an infection. Urinary tract infection (UTI). How is this diagnosed? This condition is diagnosed based on your medical history, a physical exam, and your symptoms. Tests will also be done, such as: A post-void bladder scan. This measures any amount of urine that may remain in your bladder after you finish urinating. A digital rectal exam. In a rectal exam, your health care provider checks your prostate by putting a lubricated, gloved finger into your rectum to feel the back of your prostate gland. This exam detects the size of your gland and any abnormal lumps or growths. An exam of your urine (urinalysis). A prostate specific antigen (PSA) screening. This is a blood test used to screen for prostate cancer. An ultrasound. This test uses sound waves to electronically produce a picture of your prostate gland. Your health care provider may refer you to a specialist in kidney and prostate diseases (urologist). How is this treated? Once symptoms begin, your health care provider will monitor your condition (active surveillance or watchful waiting). Treatment for this condition will depend on the severity of your condition. Treatment may include: Observation and yearly exams. This may be the only treatment needed if your condition and symptoms are mild. Medicines to relieve your symptoms, including: ?Medicines to shrink the prostate. ?Medicines to relax the muscle of the prostate. Surgery in severe cases. Surgery may include: ?Prostatectomy. In this procedure, the prostate tissue is removed completely through an open incision or with a laparoscope or robotics. ?Transurethral resection of the prostate (TURP). In this procedure, a tool is inserted through the opening at the tip of the penis (urethra). It is used to cut away tissue of the inner core of the prostate. The pieces are removed through the same opening of the penis. This removes the blockage. ?Transurethral incision (TUIP). In this procedure, small cuts are made in the prostate. This lessens the prostate's pressure on the urethra. ?Transurethral microwave thermotherapy (TUMT). This procedure uses microwaves to create heat. The heat destroys and removes a small amount of prostate tissue. ?Transurethral needle ablation (TUNA). This procedure uses radio frequencies to destroy and remove a small amount of prostate tissue. ?Interstitial laser coagulation (ILC). This procedure uses a laser to destroy and remove a small amount of prostate tissue. ?Transurethral electrovaporization (TUVP). This procedure uses electrodes to destroy and remove a small amount of prostate tissue. ?Prostatic urethral lift. This procedure inserts an implant to push the lobes of the prostate away from the urethra. Follow these instructions at home: Take ghai-oeg-lgvwogb and prescription medicines only as told by your health care provider. Monitor your symptoms for any changes. Contact your health care provider with any changes. Avoid drinking large amounts of liquid before going to bed or out in public. Avoid or reduce how much caffeine or alcohol you drink. Give yourself time when you urinate. Keep all follow-up visits as told by your health care provider. This is important. Contact a health care provider if: You have unexplained back pain. Your symptoms do not get better with treatment. You develop side effects from the medicine you are taking. Your urine becomes very dark or has a bad smell. Your lower abdomen becomes distended and you have trouble passing your urine. Get help right away if: You have a fever or chills. You suddenly cannot urinate. You feel lightheaded, or very dizzy, or you faint. There are large amounts of blood or clots in the urine. Your urinary problems become hard to manage. You develop moderate to severe low back or flank pain. The flank is the side of your body between the ribs and the hip. These symptoms may represent a serious problem that is an emergency. Do not wait to see if the symptoms will go away. Get medical help right away. Call your local emergency services (911 in the [place] Do not drive yourself to the hospital. Summary Benign prostatic hyperplasia (BPH) is an enlarged prostate that is caused by the normal aging process and not by cancer. An enlarged prostate can press on the urethra. This can make it hard to pass urine. This condition is part of a normal aging process and is more likely to develop in men over the age of 50 years. Get help right away if you suddenly cannot urinate. This information is not intended to replace advice given to you by your health care provider. Make sure you discuss any questions you have with your health care provider. Document Released: 05/25/2006 Document Revised: 04/19/2019 Document Reviewed: 06/29/2017 [employer] Patient Education 2020 [employer]. Follow Up Care 08/18/2022 10:34:03 With:KATHY HILL, Chintan Mo, URL Address: [address] [place], [place] [id number]- When: Unknown [facility] 04-15-2022 Procedure note [facility] 01-13-2022 Hospital Discharge instructions Patient Education 01/13/2022 10:21:56 Erectile Dysfunction Erectile Dysfunction Erectile dysfunction (ED) is the inability to get or keep an erection in order to have sexual intercourse. Erectile dysfunction may include: Inability to get an erection. Lack of enough hardness of the erection to allow penetration. Loss of the erection before sex is finished. What are the causes? This condition may be caused by: Certain medicines, such as: ?Pain relievers. ?Antihistamines. ?Antidepressants. ?Blood pressure medicines. ?Water pills (diuretics). ?Ulcer medicines. ?Muscle relaxants. ?Drugs. Excessive drinking. Psychological causes, such as: ?Anxiety. ?Depression. ?Sadness. ?Exhaustion. ?Performance fear. ?Stress. Physical causes, such as: ?Artery problems. This may include diabetes, smoking, liver disease, or atherosclerosis. ?High blood pressure. ?Hormonal problems, such as low testosterone. ?Obesity. ?Nerve problems. This may include back or pelvic injuries, diabetes mellitus, multiple sclerosis, or Parkinson disease. What are the signs or symptoms? Symptoms of this condition include: Inability to get an erection. Lack of enough hardness of the erection to allow penetration. Loss of the erection before sex is finished. Normal erections at some times, but with frequent unsatisfactory episodes. Low sexual satisfaction in either partner due to erection problems. A curved penis occurring with erection. The curve may cause pain or the penis may be too curved to allow for intercourse. Never having nighttime erections. How is this diagnosed? This condition is often diagnosed by: Performing a physical exam to find other diseases or specific problems with the penis. Asking you detailed questions about the problem. Performing blood tests to check for diabetes mellitus or to measure hormone levels. Performing other tests to check for underlying health conditions. Performing an ultrasound exam to check for scarring. Performing a test to check blood flow to the penis. Doing a sleep study at home to measure nighttime erections. How is this treated? This condition may be treated by: Medicine taken by mouth to help you achieve an erection (oral medicine). Hormone replacement therapy to replace low testosterone levels. Medicine that is injected into the penis. Your health care provider may instruct you how to give yourself these injections at home. Vacuum pump. This is a pump with a ring on it. The pump and ring are placed on the penis and used to create pressure that helps the penis become erect. Penile implant surgery. In this procedure, you may receive: ?An inflatable implant. This consists of cylinders, a pump, and a reservoir. The cylinders can be inflated with a fluid that helps to create an erection, and they can be deflated after intercourse. ?A semi-rigid implant. This consists of two silicone rubber rods. The rods provide some rigidity. They are also flexible, so the penis can both curve downward in its normal position and become straight for sexual intercourse. Blood vessel surgery, to improve blood flow to the penis. During this procedure, a blood vessel from a different part of the body is placed into the penis to allow blood to flow around (bypass) damaged or blocked blood vessels. Lifestyle changes, such as exercising more, losing weight, and quitting smoking. Follow these instructions at home: Medicines Take tmgn-hyj-hwmutkc and prescription medicines only as told by your health care provider. Do not increase the dosage without first discussing it with your health care provider. If you are using self-injections, perform injections as directed by your health care provider. Make sure to avoid any veins that are on the surface of the penis. After giving an injection, apply pressure to the injection site for 5 minutes. General instructions Exercise regularly, as directed by your health care provider. Work with your health care provider to lose weight, if needed. Do not use any products that contain nicotine or tobacco, such as cigarettes and e-cigarettes. If you need help quitting, ask your health care provider. Before using a vacuum pump, read the instructions that come with the pump and discuss any questions with your health care provider. Keep all follow-up visits as told by your health care provider. This is important. Contact a health care provider if: You feel nauseous. You vomit. Get help right away if: You are taking oral or injectable medicines and you have an erection that lasts longer than 4 hours. If your health care provider is unavailable, go to the nearest emergency room for evaluation. An erection that lasts much longer than 4 hours can result in permanent damage to your penis. You have severe pain in your groin or abdomen. You develop redness or severe swelling of your penis. You have redness spreading up into your groin or lower abdomen. You are unable to urinate. You experience chest pain or a rapid heart beat (palpitations) after taking oral medicines. Summary Erectile dysfunction (ED) is the inability to get or keep an erection during sexual intercourse. This problem can usually be treated successfully. This condition is diagnosed based on a physical exam, your symptoms, and tests to determine the cause. Treatment varies depending on the cause, and may include medicines, hormone therapy, surgery, or vacuum pump. You may need follow-up visits to make sure that you are using your medicines or devices correctly. Get help right away if you are taking or injecting medicines and you have an erection that lasts longer than 4 hours. This information is not intended to replace advice given to you by your health care provider. Make sure you discuss any questions you have with your health care provider. Document Released: 05/22/2001 Document Revised: 05/07/2018 Document Reviewed: 06/10/2017 [employer] Patient Education 2020 [employer] Follow Up Care 01/14/2021 08:36:30 With:KATHY HILL, Chintan oM, URL Address: [address] [address]- When:Within 1 Year(s) [facility] 06-30-2021 Note MR#: [id number] [facility] Pt. Name: Faith Olivier Admitted: 06/25/2021 Discharged: 06/26/2021 Date of : 1945 Physician: Kenyatta Mora M.D. DISCHARGE SUMMARY REASON FOR ADMISSION: Planned left carotid endarterectomy secondary to symptomatic left carotid artery stenosis. HOSPITAL COURSE: This is a 76-year-old male with a history of hyperlipidemia, hypertension, coronary artery disease and known smoker with recent carotid Duplex that showed 50% to 69% stenosis on the right with operative 80% stenosis on the left, who was suffering from what was described as TIA symptoms. He presented on June 25 for planned left carotid endarterectomy. He underwent left carotid endarterectomy per Dr. Garcia on June 25. Uncomplicated operative course. He was admitted to the ICU postoperatively for wet neck protocol, monitoring a blood pressure with a goal to keep blood pressures less than 130 systolic, and neurologic monitoring. No acute events overnight. On postop day #1, the patient was doing well. He had about 30 out by morning postop day #1 of his KURT drain. This was monitored throughout the day. On postop day #1, there was less than 10 mL out from drain. Left KURT drain was remove on postop day #1 without incident. The patient was able to get up to chair, ambulate and tolerated clear, then regular diet on postop day #1. He did have some confusion at one point throughout the day expressed by his , however, upon evaluation, there were no lateralizing symptoms or weakness and the patient was oriented at baseline. Upon further discussion with the patient's daughter, it seems that this is his baseline. This was confirmed with operative surgeon from evaluation yesterday. The patient does have family support at home. Decision was made to discharge him on postop day #1 with a plan for followup in 1 week for incision check or sooner or sooner if needed. DISCHARGE DISPOSITION: Home with family. MEDICATIONS: All home medications resumed. Per Dr. Mora, the patient was discharged on single antiplatelet therapy. EDUCATION: The patient was educated with regard to care regarding his left neck incision. All parameters for when to call the office were discussed and repeated by both the patient and his . He was instructed to avoid heavy lifting and not return to work. Plan for possible right CEA pending. FOLLOWUP: The patient follows in our office. Appointment was scheduled for 1 week check of neck incision and 1 month followup with carotid artery Duplex prior, sooner if needed. Electronically Signed by: Kenyatta Mora M.D. 07/23/2021 12:17 P __ Kenyatta Mora M.D. I personally saw this patient on the day of the encounter, performed the wellington portion(s) of the service and participated in the management and confirm the resident's documentation. Please note there may be an additional personal documentation from me. Date Dict: 06/30/2021/12:45 P/Luna Salinas M.S., [facility] Date Trans: 06/30/2021 08:59 P/grabiel [id number] [facility] Evaluation + Plan note Future Appointments Appointment Date:01/14/2023 08:45:00 AM Scheduled Provider:Chintan CHAVEZ MD Location:[facility] Appointment Type:URO Office Visit [facility] Evaluation + Plan note Future Appointments Appointment Date:01/07/2023 10:15:00 AM Scheduled Provider:Chintan CHAVEZ MD Location:[facility] Appointment Type:URO Office Visit [facility] Evaluation + Plan note Future Appointments Appointment Date:01/27/2024 10:30:00 AM Scheduled Provider:Chintan CHAVEZ MD Location:[facility] Appointment Type:URO Office Visit [facility] Evaluation + Plan note Future Appointments Appointment Date:01/06/2024 08:30:00 AM Scheduled Provider: Location:[facility] Appointment Type:URO Nurse Visit Appointment Date:01/27/2024 10:30:00 AM Scheduled Provider:Chintan CHAVEZ MD Location:[facility] Appointment Type:URO Office Visit [facility] Evaluation note Diagnosis Prostate cancer screening Special screening for malignant neoplasm of prostate Mixed hyperlipidemia Essential hypertension Unspecified essential hypertension Thyroid disorder screening Screening for thyroid disorder documented in this encounter [employer] Phone: evaluation note* Diagnosis Dizziness Dizziness and giddiness Mild alcohol use disorder, in controlled environment Bilateral carotid artery stenosis Occlusion and stenosis of multiple and bilateral precerebral arteries without mention of cerebral infarction Short-term memory loss Memory loss documented in this encounter [employer] Phone: evalljodae note* Diagnosis Fall, initial encounter Acute midline low back pain without sciatica documented in this encounter [email or web address] Phone: evallcktmt note* Diagnosis Fall, initial encounter documented in this encounter [email or web address] Phone: evalfckinj noteNo assessment information available [facility] Work Phone: Evaluation note* Diagnosis Onset Date Resolution Status Positive colorectal cancer s creening using Cologuard test acute [facility] Work Phone: Evaluation note* Diagnosis Mixed hyperlipidemia Bilateral carotid artery stenosis Occlusion and stenosis of multiple and bilateral precerebral arteries without mention of cerebral infarction Essential hypertension Unspecified essential hypertension History of alcoholism (HCC) Personal history of alcoholism Primary hypertension Unspecified essential hypertension documented in this encounter [employer] Phone: Hospital course Narrative No data available for this section [facility] Discharge instructions Additional Instructions DISCHARGE INSTRUCTIONS FOR ENDOSCOPY FOR COLONOSCOPY: -Expect a gassy or full feeling after a colonoscopy. Report any NEW abdominal pain or vomiting. -Watch for rectal bleeding . You may have oozing, but notify the doctor if you pass clots. -It is important to keep your appointments for follow up examinations. FOR SEDATION FOR 24 HOURS: -NO driving -Do NOT operate machinery such as power tools, lawn mowers, snow blowers, sewing machines, etc. -Avoid alcoholic beverages and drugs for allergies, nerves, or sleep. -Do NOT stay alone. Do NOT leave your child unattended. -Do NOT make important personal or business decisions or sign any legal documents. -Eat solid foods and drink liquids in smaller amounts than usual until normal appetite returns. If you should experience an upset stomach, liquids high in sugar content (soda, Topher-aid, non-acid juices) are recommended. -You can resume normal activities tomorrow. FOLLOW UP Please call the office and make a follow up appointment to see me as needed. No need for further routine colonoscopies. -Notify the doctor if you have any problems. -[facility] number [phone]: Progress note No data available for this section [facility] Reason for Referral Status Reason Specialty Diagnoses / Procedures Re ferred By Contact Referred To Contact Open Cardiology Diagnoses Dizziness Essential hypertension Pure hypercholesterolemia Procedures EKG 12 Lead Candace Burleson APRN - [place] [address] Status Reason Specialty Diagnoses / Procedures Referre d By Contact Referred To Contact Open EKG Diagnoses Dizziness Procedures Holter Monitor 48 Hour HC HOLTER MONITOR Candace Burleson APRN - FLOOR SUPERVISOR [place] [id number] [facility] [address] [place] [address] Status Reason Specialty Diagnoses / Procedures Referre d By Contact Referred To Contact Open Diagnoses Dizziness Essential hypertension Procedures VL DUP CAROTID BILATERAL HC EXTRACRANIAL BILAT STUDY Candace Burleson APRN - FLOOR SUPERVISOR [place] [id number] Status Reason Specialty Diagnoses / Procedures Referre d By Contact Referred To Contact Closed Radiology Diagnoses Dizziness Mild alcohol use disorder, in controlled environment Bilateral carotid artery stenosis Short-term memory loss Procedures MRI BRAIN WO CONTRAST Candace Burleson, HOB MILL OPERATOR - FLOOR SUPERVISOR [address] [place] [id number] Assessments Diagnosis Dizziness Dizziness and giddiness Essential hypertension Unspecified essential hypertension Pure hypercholesterolemia Diagnosis Dizziness Dizziness and giddiness Diagnosis Dizziness Dizziness and giddiness Smooth tongue Atrophy of tongue papillae Screening for thyroid disorder Essential hypertension Unspecified essential hypertension Pure hypercholesterolemia Prostate cancer screening Special screening for malignant neoplasm of prostate Diagnosis Dizziness Dizziness and giddiness Essential hypertension Unspecified essential hypertension Advance Directives Documents on File Type Date Recorded Patient Head Soft Sugar Operator Expl anation Advance Directives and Living Will Power of Procurement Manager Documents on File Type Date Recorded Patient Head Soft Sugar Operator Expl anation Advance Directives and Living Will Power of Procurement Manager Documents on File Type Date Recorded Patient Head Soft Sugar Operator Expl anation ACP-Advance Directive ACP-Power of Procurement Manager Healthcare Agents on File Name Relationship Healthcare Agent Relationshi p Communication Ashleigh Olivier Spouse Primary Decision Maker Documents on File Type Date Recorded Patient Head Soft Sugar Operator Expl anation ACP-Advance Directive ACP-Power of Procurement Manager Healthcare Agents on File Name Relationship Healthcare Agent Relationshi p Communication Ashleigh Lions Spouse Primary Decision Maker Healthcare Agents on File Name Relationship Healthcare Agent Relationshi p Communication Ashleigh Lions Spouse Primary Decision Maker Healthcare Agents on File Name Relationship Healthcare Agent Relationshi p Communication Ashleigh Lions Spouse Primary Decision Maker Healthcare Agents on File Name Relationship Healthcare Agent Relationshi p Communication Ashleigh Lions Spouse Primary Decision Maker Advance Directive Response Recorded Date/ Time Advance Directives No July 4:29pm Documents on File Type Date Recorded Patient Head Soft Sugar Operator Expl anation ACP-Do Not Resuscitate 04/21/2022 9:41 AM 04/21/22 DNR Comfort Care Healthcare Agents on File Name Relationship Healthcare Agent Relationshi p Communication Ashleigh Olivier Spouse Primary Decision Maker History of Present Illness * Becca Abdullahi, AUTO AIR CONDITIONING MECHANIC - 08/22/2019 2:00 PM EDT The patient was educated on the use of a holter monitor. The patient's comprehension was medium. The patient was able to verbalize recall. The patient was instructed on how and when to return the monitor. Patient also in room during education. Will return when he comes for Doctor appointment. documented in this encounter Summary Purpose Family History Relationship Condition Age at Onset Recorded Date/T ines father Hypertension Unknown Diabetes mellitus Unknown Cerebrovascular accident (CVA) Unknown Not Specified Dementia Unknown Chief Complaint and Reason for Visit Chief Complaint Positive Occult Stoo l Blood Test Chief Complaint Positive Occult Stoo l Blood Test Positive Occult Stool Blood Test Reason for Visit Positive colorectal cancer screening using Cologuard test Chief Complaint dizzy, headache covi d + Additional Source Comments Reason for Visit (unrecogniz ed section and content) Status Reason Specialty Diagnoses / Procedures Referre d By Contact Referred To Contact Open EKG Diagnoses Dizziness Procedures Holter Monitor 48 Hour HC HOLTER MONITOR Candace Burleson, HOB MILL OPERATOR - FLOOR SUPERVISOR [address] [place] [address] [facility] Ekg [address] [place] [address] Status Reason Specialty Diagnoses / Procedures Referre d By Contact Referred To Contact Open Diagnoses Dizziness Essential hypertension Procedures VL DUP CAROTID BILATERAL HC EXTRACRANIAL BILAT STUDY Candace Burleson, HOB MILL OPERATOR - FLOOR SUPERVISOR [address] [place] [address] Status Reason Specialty Diagnoses / Procedures Referre d By Contact Referred To Contact Closed Radiology Diagnoses Dizziness Mild alcohol use disorder, in controlled environment Bilateral carotid artery stenosis Short-term memory loss Procedures MRI BRAIN WO CONTRAST Candace Burleson, HOB MILL OPERATOR - FLOOR SUPERVISOR [address] [place] [address] (unrecognized sect ion and content) No Status Records FoundNo Status Records FoundNo Status Records FoundNo Status Records FoundNo Status Records FoundNo Status Records FoundNo Status Records FoundNo Status Records FoundNo Status Records Found INFORMATION SOURCE (unrecogn ized section and content) DATE CREATED AUTHOR 07/15/2021 [facility] dical Specialist DATE CREATED AUTHOR AUTHOR'S ORGANIZ ATION 07/24/2021 [facility] DATE CREATED AUTHOR AUTHOR'S ORGANIZ ATION 08/14/2022 [facility] DATE CREATED AUTHOR AUTHOR'S ORGANIZ ATION 08/08/2023 [facility] DATE CREATED AUTHOR AUTHOR'S ORGANIZ ATION 11/03/2023 [facility] DATE CREATED AUTHOR AUTHOR'S ORGANIZ ATION 11/17/2023 [facility] DATE CREATED AUTHOR AUTHOR'S ORGANIZ ATION 12/06/2023 [facility] DATE CREATED AUTHOR AUTHOR'S ORGANIZ ATION 12/25/2023 [facility] DATE CREATED AUTHOR AUTHOR'S ORGANIZ ATION 12/31/2023 [facility] Care Teams (unrecognized sec tion and content) Personnel Name: CANDACE BURLESON CNP Address: Address: [address] Team Status: Active Member Role Status Dates Candace Burleson APRN MOBILE DEVELOPMENT MANAGER-C Primary Care Provider Active Team Status: Inactive Member Role Status Dates Candace Burleson APRN MOBILE DEVELOPMENT MANAGER-C Primary Care Provider Active Leonides Dyer DO Emergency Provider Active Power Transformer Assembler Relationship Specialty Start Date End Date Candace Burleson APRN - [facility] [place] [id number] PCP - General 01/09/16 Power Transformer Assembler Relationship Specialty Start Date End Date Candace Burleson APRN - CNP [address] [place] [address] PCP - General 01/09/16 Power Transformer Assembler Relationship Specialty Start Date End Date Candace Burleson APRN [facility] [address] PCP - General 01/09/16 Team Status: Inactive Member Role Status Dates Candace Burleson APRN MOBILE DEVELOPMENT MANAGER-C Primary Care Provider Active Christiano Baer MD Attending Provider Active Power Transformer Assembler Relationship Specialty Start Date End Date Candace Burleson APRN - [facility] [place] [id number] PCP - General 01/09/16 Goals (unrecognized section and content) Goals may be documented in a n alternate section FOR RECORDS PERTAINING TO PATIENTS WHO ARE OR HAVE BEEN ENROLLED IN A CHEMICAL DEPENDENCY/SUBSTANCEABUSE PROGRAM, SOME INFORMATION MAY BE OMITTED. This clinical summary was aggregated from multiple sources. Caution should be exercised in using it in the provision of clinical care. This summary normalizes information from multiple sources, and as a consequence, information in this document may materially change the coding, format and clinical context of patient data. In addition, data may be omitted in some cases. CLINICAL DECISIONS SHOULD BE BASED ON THE PRIMARY CLINICAL RECORDS. [facility] [employer] [facility]. provides no warranty or guarantee of the accuracy or completeness of information in this document.
--- NOTE | 2024-01-01 15:06 | ED_ITS ---
HPI - Male Genitourinary General Chief complaint: Urogenital-Male Stated complaint: BLOOD IN URINE Time Seen by Provider: 01/01/24 14:53 Source: patient Mode of arrival: walk-in Limitations: no limitations History of Present Illness HPI Narrative: 70-year-old male presents for hematuria. 3 days ago he had carotid endarterectomy and had a Valero catheter placed in surgery. His reports that it was a traumatic placement and he had some hematuria afterwards. He saw his urologist yesterday and a different catheter was placed, an 18 [place] coud?. He continues to have gross hematuria. He is not complaining of dizziness or abdominal pain. He has a history of some prostate problems, apparently enlarged prostate. Related Data Home Medications ?Medication ?Instructions ?Recorded ?Confirmed aspirin 81 mg tablet,delayed 81 mg PO DAILY 10/30/23 10/30/23 release donepezil 10 mg tablet 10 mg PO .qhs 10/30/23 10/30/23 fluoxetine 20 mg capsule 20 mg PO QAM 10/30/23 10/30/23 losartan 25 mg tablet 25 mg PO .qhs 10/30/23 10/30/23 melatonin 10 mg tablet 10 mg PO DAILY 10/30/23 10/30/23 quetiapine 25 mg tablet 100 mg PO QAM 10/30/23 10/30/23 quetiapine 50 mg tablet 50 mg PO .qhs 10/30/23 10/30/23 simvastatin 40 mg tablet 40 mg PO .qhs 10/30/23 10/30/23 tamsulosin 0.4 mg capsule 0.4 mg PO .qhs 10/30/23 10/30/23 Previous Rx's ?Medication ?Instructions ?Recorded levothyroxine 50 mcg tablet 50 mcg PO DAILY #30 tabs 10/31/23 Allergies Allergy/AdvReac Type Severity Reaction Status Date / Time NSAIDS (Non-Steroidal Allergy Mild Headache Verified 10/30/23 14:47 Anti-Inflamma Review of Systems ROS Narrative A ten point review of systems is negative except as noted above. [facility] Medical History (Updated 01/01/24 @ 17:33 by Bernabe Fuentes MD) Carotid arterial disease ?I77.9 - Disorder of arteries and arterioles, unspecified (ICD-10) Hyperlipidemia ?E78.5 - Hyperlipidemia, unspecified (ICD-10) Hypertension ?I10 - Essential (primary) hypertension (ICD-10) Dementia ?F03.90 - Unspecified dementia, unspecified severity, without behavioral disturbance, psychotic disturbance, mood disturbance, and anxiety (ICD-10) Surgical History H/O hernia repair ?Z98.890 - Other specified postprocedural states (ICD-10) ?Z87.19 - Personal history of other diseases of the digestive system (ICD-10) Hx of tonsillectomy ?Z90.89 - Acquired absence of other organs (ICD-10) Family History Father Family history of stroke Family history of diabetes mellitus Family history of hypertension Social History Within the past year, how often did you have a drink containing alcohol: never Score interpretation: A score less than 4 is consistent with normal alcohol consumption. Smoking status: Never smoker Non-prescribed substance use: denies use Previous occupational history: retired Highest level of school completed/degree received: high school graduate Are you now , , , , never or living with a partner: In a typical week, how many times do you talk on the telephone with family, friends, or neighbors: 3 or more times per week How often do you get together with friends or relatives: 3 or more times per week How often do you attend rastafari or jehovah's witness services: 4 or more times per year Do you belong to any clubs or organizations such as rastafari groups unions, fraternal or athletic groups, or school groups: no Total score: 3 Score interpretation: A score of greater than or equal to 2 indicates the lowest level of social isolation. Little interest or pleasure in doing things: not at all Feeling down, depressed, or hopeless: not at all Feel stressed/tense/nervous/anxious/difficulty sleeping: not at all Exam Narrative Exam Narrative: Nurses note and vital signs reviewed and patient is not hypoxic. General: The patient appears well and in no apparent distress. Patient is resting comfortably on cart. Dressing is present on the right side of his neck. Skin: Warm, dry, no pallor noted. There is no rash noted. Head: Normocephalic, atraumatic Eye: Normal conjunctiva, no drainage Ears, Nose, Mouth, and Throat: oral mucosa is moist. Nares patent. Cardiovascular: Regular Rate and Rhythm Respiratory: Patient is in no distress, no accessory muscle use, lungs are clear to auscultation, no wheezing, rales or rhonchi Back: non-tender GI: Soft and nontender : Valero catheter is in place. The urine is grossly bloody. Musculoskeletal: The patient has no evidence of calf tenderness, no pitting edema, symmetrical pulses noted bilaterally Neurological: A&O, normal speech Psychiatric: Cooperative Constitutional Vital Signs, click to edit/add: Last Vital Signs Temp 98.0 F 01/01/24 14:54 Pulse 69 01/01/24 14:54 Resp 18 01/01/24 14:54 BP 141/70 01/01/24 14:54 Pulse Ox 100 01/01/24 14:54 O2 Del Method Room Air 01/01/24 14:54 Course Vital Signs Vital signs: Vital Signs Temperature 98.0 F 01/01/24 14:54 Pulse Rate 69 01/01/24 14:54 Respiratory Rate 18 01/01/24 14:54 Blood Pressure 141/70 01/01/24 14:54 Pulse Oximetry 100 01/01/24 14:54 Oxygen Delivery Method Room Air 01/01/24 14:54 Temperature 98.0 F 01/01/24 14:54 Pulse Rate 69 01/01/24 14:54 Respiratory Rate 18 01/01/24 14:54 Blood Pressure 141/70 01/01/24 14:54 Pulse Oximetry 100 01/01/24 14:54 Oxygen Delivery Method Room Air 01/01/24 14:54 MDM - Male Genitourinary MDM Narrative Medical decision making narrative: The patient has gross hematuria. We are irrigating his catheter and still has gross hematuria. Hemoglobin is down just over 3 g since October. I have discussed the case with Dr. Guillen and the patient will be admitted for further irrigation and observation of his hemoglobin. Treatment diagnosis and disposit ion were discussed with the patient and his . There is no clinical suspicion of acute cholecystitis. Differential Diagnosis Differential diagnosis: Likely urinary tract infection and other (Hematuria, anemia) Lab Data Attestation: I reviewed the patient's lab results. Labs: Lab Results 07/26/24 07/26/24 Range/Units 13:05 13:09 WBC 9.7 (4.0-11.0) 10^3/uL RBC 2.93 L (4.70-6.10) 10^6/uL Hgb 9.4 L (14.0-18.0) g/dL Hct 28.2 L (42.0-54.0) % MCV 96.2 H (80.0-94.0) fL MCH 32.1 (25.9-34.0) pg MCHC 33.3 (29.9-35.2) g/dL RDW 13.4 (11.0-15.0) % Plt Count 167 (150-450) 10^3/uL MPV 9.7 (9.5-13.5) fL Neut % (Auto) 67.5 (43.0-75.0) % Lymph % (Auto) 19.5 L (20.5-60.0) % [place] % (Auto) 11.6 (1.7-12.0) % Eos % (Auto) 0.7 L (0.9-7.0) % Baso % (Auto) 0.2 (0.2-2.0) % Neut # (Auto) 6.6 H (1.4-6.5) 10^3/uL Lymph # (Auto) 1.9 (1.2-3.8) 10^3/uL [place] # (Auto) 1.1 H (0.3-0.8) 10^3/uL Eos # (Auto) 0.1 (0.0-0.7) 10^3/uL Baso # (Auto) 0.0 (0.0-0.1) 10^3/uL Abs Immat Gran (auto) 0.05 H (0.00-0.03) 10^3/uL Imm/Tot Granulo (auto) 0.5 (0.0-0.5) % Sodium 139 (136-145) mmol/L Potassium 4.0 (3.5-5.1) mmol/L Chloride 104 (98-107) mmol/L Carbon Dioxide 27.8 (21.0-32.0) mmol/L Anion Gap 11.2 BUN 15.0 (7.0-18.0) mg/dL Creatinine 1.05 (0.70-1.30) mg/dL Est GFR ( Amer) >60 (>=60) Est GFR (Non-Af Amer) >60 (>=60) BUN/Creatinine Ratio 14.3 Glucose 113 H (74-106) mg/dL Calcium 8.3 L (8.5-10.1) mg/dL Urine Color Dk. red (YELLOW) Urine Clarity Turbid A (CLEAR) Urine pH Color interference A (5.0-9.0) Ur Specific [place] 1.010 (1.005-1.025) Urine Protein Color interference A (NEG/TRACE) mg/dL Urine Glucose (UA) Color interference A (NEGATIVE) mg/dL Urine Ketones Color interference A (NEGATIVE) mg/dL Urine Occult Blood Color interference A (NEGATIVE) Urine Nitrite Color interference A (NEGATIVE) Urine Bilirubin Color interference A (NEGATIVE) Urine Urobilinogen Color interference A (0.2-1.0) EU/dL Ur Leukocyte Esterase Color interference A (NEGATIVE) Urine RBC >100 A (0-2) #/HPF Urine WBC 0-2 A (NONE SEEN) #/HPF Ur Squamous Epith Cells None seen (NONE/RARE) #/LPF Urine Crystals None seen (None Seen) #/HPF Urine Bacteria None seen (NONE SEEN) #/HPF Urine Casts None seen (NONE SEEN) #/LPF Urine Mucus None seen (NONE SEEN) Ur Culture Indicated? No Imaging Data CT scan - abdomen: Radiologist's impression: ITS Impressions Abdomen/Pelvis CT 01/01/24 15:04 IMPRESSION: 1. Irregular dense material within the urinary bladder which likely represents clotted blood products given patient's history, however, an underlying mass cannot be excluded. Follow-up ultrasound evaluation of the urinary bladder is recommended. 2. The gallbladder is nondistended, but there appears to be slightly irregular wall thickening. Cholecystitis? Electronically authenticated by: RAZA WEIR Date: 01/01/2024 16:38 Discharge Plan Discharge Chief Complaint: Urogenital-Male Clinical Impression: Hematuria Patient Disposition: Admitted as Observation Time of Disposition Decision: 17:32 Condition: Fair
[2024-01-01 15:17] LABS: Basophils Percent Auto 0.2 % (0.2-2.0); Eosinophils Absolute Auto 0.1 10^3/uL (0.0-0.7); Eosinophils Percent Auto 0.7 % (0.9-7.0); Hematocrit 28.2 % (42.0-54.0); Hemoglobin 9.4 g/dL (14.0-18.0); Immature Granulocytes Abs Auto 0.05 10^3/uL (0.00-0.03); Immature Granulocytes Pct Auto 0.5 % (0.0-0.5); Lymphocytes Absolute Auto 1.9 10^3/uL (1.2-3.8); Lymphocytes Percent Auto 19.5 % (20.5-60.0); Mean Corpuscular HGB Conc 33.3 g/dL (29.9-35.2); Mean Corpuscular Hemoglobin 32.1 pg (25.9-34.0); Mean Corpuscular Volume 96.2 fL (80.0-94.0); Mean Platelet Volume 9.7 fL (9.5-13.5); Monocytes Absolute Auto 1.1 10^3/uL (0.3-0.8); Monocytes Percent Auto 11.6 % (1.7-12.0); Neutrophils Absolute Auto 6.6 10^3/uL (1.4-6.5); Neutrophils Percent Auto 67.5 % (43.0-75.0); Platelet Count 167 10^3/uL (150-450); Red Blood Count 2.93 10^6/uL (4.70-6.10); Red Cell Distribution Width 13.4 % (11.0-15.0); White Blood Count 9.7 10^3/uL (4.0-11.0)
[2024-01-01 15:34] LABS: Clarity Urine TURBID (CLEAR); Color Urine DK. RED (YELLOW)
[2024-01-01 15:37] LABS: Anion Gap 11.2; BUN Creatinine Ratio 14.3; Calcium 8.3 mg/dL (8.5-10.1); Carbon Dioxide 27.8 mmol/L (21.0-32.0); Chloride 104 mmol/L (98-107); Estimated GFR (African America >60 (>=60); Estimated GFR (Non-African Ame >60 (>=60); Glucose 113 mg/dL (74-106); Sodium 139 mmol/L (136-145)
[2024-01-01 15:39] LABS: Bilirubin Urine COLOR INTERFERENCE (NEGATIVE); Glucose Urine UA COLOR INTERFERENCE mg/dL (NEGATIVE); Ketones Urine COLOR INTERFERENCE mg/dL (NEGATIVE); Protein Urine COLOR INTERFERENCE mg/dL (NEG/TRACE); pH Urine COLOR INTERFERENCE (5.0-9.0)
[2024-01-01 15:40] LABS: Blood Urine COLOR INTERFERENCE (NEGATIVE); Leukocyte Esterase Urine COLOR INTERFERENCE (NEGATIVE); Nitrite Urine COLOR INTERFERENCE (NEGATIVE); Urobilinogen Urine COLOR INTERFERENCE EU/dL (0.2-1.0)
[2024-01-01 15:45] LABS: Bacteria Urine NONE SEEN #/HPF (NONE SEEN); Cast Seen? NONE SEEN #/LPF (NONE SEEN); Crystals Seen? None Seen #/HPF (None Seen); Mucus Urine NONE SEEN (NONE SEEN); RBC Urine >100 #/HPF (0-2); Squamous Epithelial Cell Urine NONE SEEN #/LPF (NONE/RARE); Urine Culture Indicated NO; WBC Urine 0-2 #/HPF (NONE SEEN)
[2024-01-01 18:19] VITALS: BP 162/83; PULSE 83; O2SAT 99
--- OUTSIDE RECORDS SUMMARY | 2024-01-01 18:44 | XMS_ITS | CCD ---
Author Organization [facility] Care Team Providers Care Reconciling Clerk Name Role Phone Candace Burleson Primary Care Provider UNKNOWN, PHYSICIAN Referring Unavailable CANDACE BURLESON Primary Care Unavailable KENYATTA MORA Attending Unavailable KENYATTA MORA Admitting Unavailable [place] [employer] HOUSE MECHANIC - BIOMEDICAL ELECTRONICS TECHNICIAN, Candace Medina Primary Care Provider CANDACE BURLESON Primary Care Physician [phone] Bree [facility] HOUSE MECHAN[facility] [place] Primary Care Provider Bree BOILER HOUSE MECHANICAliya Medina Primary Care Provider MD Christiano Baer Attending Provider LEÓN, DR AGUERO Admitting Unavailable ELTAHAWY, DR AGUERO Attending Unavailable [facility], DR ATKINSON Consulting Unavailable [place]WY, DR AGUERO Consulting Unavailable PORTER Burleson Primary Care Provider DO Leonides Dyer Emergency Provider [phone] STELLA TSE Attending Unavailable CANDACE BURLESON Primary Care Unavailable Chintan CHAVEZ Attending Unavailable Chintan CHAVEZ Attending Unavailable CANDACE BURLESON Primary Care Unavailable Leonides Dyer Admitting Unavailable Bree, Candace M Primary Care Unavailable Leonides Dyer Attending Unavailable BREE CANDACE M Primary Care Unavailable BREE, CANDACE M Referring Unavailable ELTA[place]WY, EHAB A Referring Unavailable BREE, CANDACE M Primary Care Unavailable BREE, CANDACE M Attending Unavailable BREE, CANDACE M Primary Care Unavailable BREE, CANDACE M Referring Unavailable BREE, CANDACE M Primary Care Unavailable BREE, CANDACE M Referring Unavailable BREE, CANDACE M Primary Care Unavailable CARLOS MANUEL GARCIA Admitting Unavailable CARLOS MANUEL GARCIA Attending Unavailable АННА BROWER Consulting Unavailable IRISH SCHRADER Consulting Unavailable JARETH FIGUEROA Attending Unavailable CANDACE BURLESON Primary Care Unavailable CARLOS MANUEL GARCIA Attending Unavailable Allergies Allergy Classification Reported Allergen(s) Allergy Type Date of Onset Reaction(s) Facility NSAIDs (2 sources) Ibuprofen Drug Allergy 4 [facility] (9 sources) NSAIDs Propensity to adverse reactions to drug 4 [place], [place] (5 sources) Shellfish-Derive d Products Propensity to adverse reactions to drug 8 [place], [place] (15 sources) Ibuprofen; Translations: [ibuprofen] Drug Allergy 1 HYPERTENSION [facility] (4 sources) Memantine; Translations: [MEMANTINE] Drug Allergy 4 [facility] (3 sources) NSAIDs; Translations: [NSAIDS (NON-STEROIDAL ANTI-INFLAMMATOR Y DRUG)] Propensity to adverse reactions to drug (disorder) 4 [facility] (1 source) Ibuprofen Drug Allergy 2 [facility] Rep[facility] Medications Current Medications Medication Drug Class(es) [...] activity, # 20 tab(s), Refills(s) 3, Pharmacy: [id number], 185, cm, 01/07/23 10:35:00 EDT, Height/Length [...] Daily, # 90 cap(s), Refills(s) 3, Pharmacy: [facility] #[id number], 185, cm, 01/07/23 10:35:00 EDT, Height/Length Dosing, [...] every four to six hours Hydrocodone-Acetam inophen ([place]) 5-325 mg tablet Discontinued 1 - 2 [...] Anion gap [Moles/Vol] 8 mmol/L Normal 5-15 [facility] Comment on above: Performed By: #### C BCA, PINR, 48825-7, BMP #### [facility] ([id number]) [address], [address] [place] [address] Calcium [Mass/Vol] 8.3 mg/dL Low 8.5-10.5 [facility] Comment on above: Performed By: #### C BCA, PINR, 03662-4, BMP #### [facility] ([id number]) [address], [address] [place] [address] Chloride [Moles/Vol] 110 mmol/L High 98-109 [facility] Comment on above: Performed By: #### C BCA, PINR, 81645-0, BMP #### [facility] ([id number]) [address], [address] [place] [address] CO2 [Moles/Vol] 22 mmol/L Normal 22-32 [facility] Comment on above: Performed By: #### C BCA, PINR, 02574-7, BMP #### [facility] ([id number]) [address], [address] [place] [address] Creatinine [Mass/Vol] 0.76 mg/dL Normal 0.60-1.30 [facility] Comment on above: Result Comment: METH OD TRACEABLE TO IDMS STANDARD Performed By: #### C BCA, PINR, 01390-0, BMP #### [facility] ([id number]) [address], [address] [place] [address] eGFR (CKD-EPI) NON-RACE DEPENDENT >90 Normal >59 [facility] Comment on above: Result Comment: Reported eGFR is based on the CKD-EPI 2020 equation that does not use a race coefficient. Performed By: #### C SHIN PINR, 97004-8, BMP #### [facility] ([id number]) [address], [address] [place] [address] Glucose [Mass/Vol] 109 mg/dL High 65-99 [facility] Comment on above: Performed By: #### C SHIN PINR, 59563-6, BMP #### [facility] ([id number]) [address], [address] [place] [address] Potassium [Moles/Vol] 4.1 mmol/L Normal 3.5-5.0 [facility] Comment on above: Performed By: #### C SHIN, PINR, 29374-7, BMP #### [facility] ([id number]) [address], [address] [place] [address] Sodium [Moles/Vol] 140 mmol/L Normal 134-146 [facility] Comment on above: Performed By: #### C SHIN PINR, 14798-7, BMP #### [facility] ([id number]) [address], [address] [place] [address] Urea nitrogen [Mass/Vol] 15 mg/dL Normal 5-27 [facility] Comment on above: Performed By: #### C SHIN PINR, 83212-1, BMP #### [facility] ([id number]) [address], [address] [address] COMPLETE BLOOD COUNTon 12-29 Erythrocyte distribution width (RBC) [Ratio] 13.6 % Normal 11.5-15.0 [facility] Comment on above: Performed By: #### C SHIN PINR, 85151-1, BMP #### [facility] ([id number]) [address], [address] [place] [address] Hematocrit (Bld) [Volume fraction] 32.3 % Low 39-49 [facility] Comment on above: Performed By: #### C SHIN PINR, 02032-9, BMP #### [facility] ([id number]) [address], [address] [place] [address] Hemoglobin (Bld) [Mass/Vol] 11.0 g/dL Low 13.0-17.0 [facility] Comment on above: Performed By: #### C SHIN PINR, 33570-3, BMP #### [facility] ([id number]) [address], [address] [place] [address] MCH (RBC) [Entitic mass] 32.7 pg Normal 27-34 [facility] Comment on above: Performed By: #### C SHIN PINR, 10477-4, BMP #### [facility] ([id number]) [address], [address] [place] [address] MCHC (RBC) [Mass/Vol] 34.1 g/dL Normal 32-36 [facility] Comment on above: Performed By: #### C SHIN PINR, 54623-8, BMP #### [facility] ([id number]) [address], [address] [place] [address] MCV (RBC) [Entitic vol] 96 fL Normal 80-[address] [facility] Comment on above: Performed By: #### C SHIN PINR, 74407-3, BMP #### [facility] ([id number]) [address], [address] [place] [address] Platelet mean volume (Bld) [Entitic vol] 7.9 fL Normal 7-12 [facility] Comment on above: Performed By: #### C SHIN PINR, 07494-9, BMP #### [facility] ([id number]) [address], [address] [place] [address] Platelets (Bld) [#/Vol] 192 10*3/uL Normal 150-450 [facility] Comment on above: Performed By: #### C BCA, PINR, 47155-1, BMP #### [facility] ([id number]) [address], [address] [place] [address] RBC COUNT 3.37 X10E12/L Low 4.10-5.70 [facility] Comment on above: Performed By: #### C BCA, PINR, 93686-9, BMP #### [facility] ([id number]) [address], [address] [place] [address] WBC (Bld) [#/Vol] 8.6 10*3/uL Normal 4.0-11.0 [facility] Comment on above: Performed By: #### C BCA, PINR, 04550-7, BMP #### [facility] ([id number]) [address], [address] [place] [address] TSH WITH REFLEXon 12-30-2023 TSH 1.69 uIU/mL Normal 0.49-4.67 [facility] Comment on above: Performed By: #### C BCA, PINR, 56815-2, BMP #### [facility] ([id number]) [address], [address] [place] [address] BASIC METABOLIC PANLon 12-28 Anion gap [Moles/Vol] 9 mmol/L Normal 5-15 [facility] Comment on above: Performed By: #### B MP, 01799-1 #### [facility] ([id number]) [address], [address] [place] [address] Calcium [Mass/Vol] 8.2 mg/dL Low 8.5-10.5 [facility] Comment on above: Performed By: #### Kelly ROQUE, #### [facility] ([id number]) [address], [address] [place] [address] Chloride [Moles/Vol] 109 mmol/L Normal 98-109 [facility] Comment on above: Performed By: #### Kelly ROQUE, #### [facility] ([id number]) [address], [address] [place] [address] CO2 [Moles/Vol] 22 mmol/L Normal 22-32 [facility] Comment on above: Performed By: #### Kelly ROQUE, #### [facility] ([id number]) [address], [address] [place] [address] Creatinine [Mass/Vol] 0.82 mg/dL Normal 0.60-1.30 [facility] Comment on above: Result Comment: METH OD TRACEABLE TO IDMS STANDARD Performed By: #### Kelly ROQUE, #### [facility] ([id number]) [address], [address] [place] [address] GFR/1.73 sq M.predicted among non-blacks MDRD (S/P/Bld) [Vol rate/Area] 90 mL/min/{1.73_m2} Normal >59 [facility] Comment on above: Result Comment: Reported eGFR is based on the CKD-EPI 2020 equation that does not use a race coefficient. Performed By: #### Kelly ROQUE, #### [facility] ([id number]) [address], [address] [place] [address] Glucose [Mass/Vol] 131 mg/dL High 65-99 [facility] Comment on above: Performed By: #### Kelly ROQUE, #### [facility] ([id number]) [address], [address] [place] [address] Potassium [Moles/Vol] 3.8 mmol/L Normal 3.5-5.0 [facility] Comment on above: Performed By: #### B JUDE, 85614-8 #### [facility] ([id number]) [address], [address] [place] [address] Sodium [Moles/Vol] 140 mmol/L Normal 134-146 [facility] Comment on above: Performed By: #### Kelly ROQUE, 65339-2 #### [facility] ([id number]) [address], [address] [place] [address] Urea nitrogen [Mass/Vol] 18 mg/dL Normal 5-27 [facility] Comment on above: Performed By: #### Kelly ROQUE, 38875-9 #### [facility] ([id number]) [address], [address] [place] [address] Anion gap [Moles/Vol] 8 mmol/L Normal 5-15 [facility] Comment on above: Performed By: #### C BCA, PINR, 88152-5, BMP #### [facility] ([id number]) [address], [address] [place] [address] Calcium [Mass/Vol] 9.2 mg/dL Normal 8.5-10.5 [facility] Comment on above: Performed By: #### C BCA, PINR, 15374-8, BMP #### [facility] ([id number]) [address], [address] [place] [address] Chloride [Moles/Vol] 108 mmol/L Normal 98-109 [facility] Comment on above: Performed By: #### C BCA, PINR, 43730-1, BMP #### [facility] ([id number]) [address], [address] [place] [address] CO2 [Moles/Vol] 25 mmol/L Normal 22-32 [facility] Comment on above: Performed By: #### C BCA, PINR, 27542-4, BMP #### [facility] ([id number]) [address], [address] [place] [address] Creatinine [Mass/Vol] 0.93 mg/dL Normal 0.60-1.30 [facility] Comment on above: Result Comment: METH OD TRACEABLE TO IDMS STANDARD Performed By: #### C BCA, PINR, 90440-4, BMP #### [facility] ([id number]) [address], [facility] [address] [place] [address] GFR/1.73 sq M.predicted among non-blacks MDRD (S/P/Bld) [Vol rate/Area] 84 mL/min/{1.73_m2} Normal >59 [facility] Comment on above: Result Comment: Reported eGFR is based on the CKD-EPI 2020 equation that does not use a race coefficient. Performed By: #### C BCA, PINR, 65940-8, BMP #### [facility] ([id number]) [address], [address] [place] [address] Glucose [Mass/Vol] 107 mg/dL High 65-99 [facility] Comment on above: Performed By: #### C BCA, PINR, 08813-9, BMP #### [facility] ([id number]) [address] [address] [place] [address] Potassium [Moles/Vol] 3.9 mmol/L Normal 3.5-5.0 [facility] Comment on above: Performed By: #### C BCA, PINR, 48847-7, BMP #### [facility] ([id number]) [address] [address] [place] [address] Sodium [Moles/Vol] 141 mmol/L Normal 134-146 [facility] Comment on above: Performed By: #### C BCA, PINR, 36585-1, BMP #### [facility] ([id number]) [address], [address] [place] [address] Urea nitrogen [Mass/Vol] 19 mg/dL Normal 5-27 [facility] Comment on above: Performed By: #### C SHIN, PINR, 27787-7, BMP #### [facility] ([id number]) [address], [address] [place] [address] CBC AND AUTO DIFFon 12-29-19 24 ABSOLUTE BASOPHIL 0.0 X10E9/L Normal 0.0-0.2 [facility] Comment on above: Performed By: #### C BCA #### [facility] ([id number]) [address], [address] [place] [address] ABSOLUTE NEUTROPHIL 6.6 X10E9/L Normal 1.5-6.6 [facility] Comment on above: Performed By: #### C BCA #### [facility] ([id number]) [address], [address] [place] [address] Basophils/100 WBC (Bld) 0.3 % Normal [facility] Comment on above: Performed By: #### C BCA #### [facility] ([id number]) [address], [address] [place] [address] Eosinophils (Bld) [#/Vol] 0.0 10*3/uL Normal 0.0-0.4 [facility] Comment on above: Performed By: #### C BCA #### [facility] ([id number]) [address], [address] [place] [address] Eosinophils/100 WBC (Bld) 0.4 % Normal [facility] Comment on above: Performed By: #### C BCA #### [facility] ([id number]) [address], [address] [place] [address] Erythrocyte distribution width (RBC) [Ratio] 13.3 % Normal 11.5-15.0 [facility] Comment on above: Performed By: #### C BCA #### [facility] ([id number]) [address], [address] [place] [address] Hematocrit (Bld) [Volume fraction] 32.8 % Low 39-49 [facility] Comment on above: Performed By: #### C BCA #### [facility] ([id number]) [address], [address] [place] [address] Hemoglobin (Bld) [Mass/Vol] 11.1 g/dL Low 13.0-17.0 [facility] Comment on above: Performed By: #### C BCA #### [facility] ([id number]) [address], [address] [place] [address] Lymphocytes (Bld) [#/Vol] 0.8 10*3/uL Low 1.0-3.5 [facility] Comment on above: Performed By: #### C BCA #### [facility] ([id number]) [address], [address] [place] [address] Lymphocytes/100 WBC (Bld) 10.4 % Normal [facility] Comment on above: Performed By: #### C BCA #### [facility] ([id number]) [address], [address] [place] [address] MCH (RBC) [Entitic mass] 32.3 pg Normal 27-34 [facility] Comment on above: Performed By: #### C BCA #### [facility] ([id number]) [address], [address] [place] [address] MCHC (RBC) [Mass/Vol] 33.8 g/dL Normal 32-36 [facility] Comment on above: Performed By: #### C BCA #### [facility] ([id number]) [address], [address] [place] [address] MCV (RBC) [Entitic vol] 95 fL Normal 80-100 [facility] Comment on above: Performed By: #### C BCA #### [facility] ([id number]) [address], [address] [place] [address] Monocytes (Bld) [#/Vol] 0.3 10*3/uL Normal 0-0.9 [facility] Comment on above: Performed By: #### C BCA #### [facility] ([id number]) [address] [place] [address] Monocytes/100 WBC (Bld) 3.8 % Normal [facility] Comment on above: Performed By: #### C BCA #### [facility] ([id number]) [address] [place] [address] Neutrophils/100 WBC (Bld) 85.1 % Normal [facility] Comment on above: Performed By: #### C BCA #### [facility] ([id number]) [address] [place] [address] Platelet mean volume (Bld) [Entitic vol] 7.6 fL Normal 7-12 [facility] Comment on above: Performed By: #### C BCA #### [facility] ([id number]) [address] [place] [address] Platelets (Bld) [#/Vol] 170 10*3/uL Normal 150-450 [facility] Comment on above: Performed By: #### C BCA #### [facility] ([id number]) [address], [address] [place] [address] RBC COUNT 3.44 X10E12/L Low 4.10-5.70 [facility] Comment on above: Performed By: #### C BCA #### [facility] ([id number]) [address], [address] [place] [address] WBC (Bld) [#/Vol] 7.7 10*3/uL Normal 4.0-11.0 [facility] Comment on above: Performed By: #### C BCA #### [facility] ([id number]) [address] [place] [address] ABSOLUTE BASOPHIL 0.0 X10E9/L Normal 0.0-0.2 [facility] Comment on above: Performed By: #### C SHIN, PINR, 52073-3, BMP #### [facility] ([id number]) [address], [address] [place] [address] ABSOLUTE NEUTROPHIL 2.6 X10E9/L Normal 1.5-6.6 [facility] Comment on above: Performed By: #### C SHIN, PINR, 97039-8, BMP #### [facility] ([id number]) [address], [address] [place] [address] Basophils/100 WBC (Bld) 0.6 % Normal [facility] Comment on above: Performed By: #### C SHIN, PINR, 61505-7, BMP #### [facility] ([id number]) [address] [place] [address] Eosinophils (Bld) [#/Vol] 0.0 10*3/uL Normal 0.0-0.4 [facility] Comment on above: Performed By: #### C SHIN, PINR, 13105-2, BMP #### [facility] ([id number]) [address] [place] [address] Eosinophils/100 WBC (Bld) 1.0 % Normal [facility] Comment on above: Performed By: #### C SHIN, PINR, 56127-8, BMP #### [facility] ([id number]) [address], [address] [place] [address] Erythrocyte distribution width (RBC) [Ratio] 13.4 % Normal 11.5-15.0 [facility] Comment on above: Performed By: #### C SHIN PINR, 34261-4, BMP #### [facility] ([id number]) [address], [address] [place] [address] Hematocrit (Bld) [Volume fraction] 41.5 % Normal 39-49 [facility] Comment on above: Performed By: #### C SHIN PINR, 17248-5, BMP #### [facility] ([id number]) [address], [address] [place] [address] Hemoglobin (Bld) [Mass/Vol] 13.9 g/dL Normal 13.0-17.0 [facility] Comment on above: Performed By: #### C SHIN PINR, 84843-9, BMP #### [facility] ([id number]) [address] [place] [address] Lymphocytes (Bld) [#/Vol] 1.2 10*3/uL Normal 1.0-3.5 [facility] Comment on above: Performed By: #### C SHIN PINR, 88982-4, BMP #### [facility] ([id number]) [address], [address] [place] [address] Lymphocytes/100 WBC (Bld) 28.0 % Normal [facility] Comment on above: Performed By: #### [employer] PINR, 30628-2, BMP #### [facility] ([id number]) [address], [address] [place] [address] MCH (RBC) [Entitic mass] 32.3 pg Normal 27-34 [facility] Comment on above: Performed By: #### C SHIN PINR, 41769-7, BMP #### [facility] ([id number]) [address], [address] [place] [address] MCHC (RBC) [Mass/Vol] 33.6 g/dL Normal 32-36 [facility] Comment on above: Performed By: #### C BCA, PINR, 64970-1, BMP #### [facility] ([id number]) [address] [place] [address] MCV (RBC) [Entitic vol] 96 fL Normal 80-100 [facility] Comment on above: Performed By: #### C BCA, PINR, 01549-1, BMP #### [facility] ([id number]) [address] [place] [address] Monocytes (Bld) [#/Vol] 0.4 10*3/uL Normal 0-0.9 [facility] Comment on above: Performed By: #### C BCA, PINR, 00946-6, BMP #### [facility] ([id number]) [address] [place] [address] Monocytes/100 WBC (Bld) 10.3 % Normal [facility] Comment on above: Performed By: #### C BCA, PINR, 88067-7, BMP #### [facility] ([id number]) [address] [place] [address] Neutrophils/100 WBC (Bld) 60.1 % Normal [facility] Comment on above: Performed By: #### C BCA, PINR, 88296-8, BMP #### [facility] ([id number]) [address] [place] [address] Platelet mean volume (Bld) [Entitic vol] 7.5 fL Normal 7-12 [facility] Comment on above: Performed By: #### C BCA, PINR, 24498-1, BMP #### [facility] ([id number]) [address], [address] [place] [address] Platelets (Bld) [#/Vol] 197 10*3/uL Normal 150-450 [facility] Comment on above: Performed By: #### C SHIN, PINR, 98748-5, BMP #### [facility] ([id number]) [address], [address] [place] [address] RBC COUNT 4.31 X10E12/L Normal 4.10-5.70 [facility] [facility] Comment on above: Performed By: #### C SHIN, PINR, 20989-6, BMP #### [facility] ([id number]) [address], [facility] [address] [place] [address] WBC (Bld) [#/Vol] 4.3 10*3/uL Normal 4.0-11.0 [facility] Comment on above: Performed By: #### C SHIN, PINR, 13363-2, BMP #### [facility] ([id number]) [address], [address] [place] [address] Calcium.ionized (Bld) [Mass/ Vol]on 12-29-2023 IONIZED CALCIUM 4.5 mg/dL Normal 4.5-5.3 [facility] Comment on above: Performed By: #### 3 8230-9 #### [facility] ([id number]) [address], [address] [place] [address] HGB AND HCTon 12-29-2023 Hematocrit (Bld) [Volume fraction] 31.6 % Low 39-49 [facility] Comment on above: Performed By: #### C SHIN, PINR, 48971-6, BMP #### [facility] ([id number]) [address], [address] [place] [address] Hemoglobin (Bld) [Mass/Vol] 11.2 g/dL Low 13.0-17.0 [facility] Comment on above: Performed By: #### C SHIN, PINR, 15817-5, BMP #### [facility] ([id number]) [address], [address] [place] [address] MAGNESIUMon 12-29-2023 Magnesium [Mass/Vol] 2.1 mg/dL Normal 1.8-2.6 [facility] Comment on above: Performed By: #### [place], [address]-5 #### [facility] ([id number]) [address], [address] [place] [address] Magnesium Ionized ISE (Bld) [Moles/Vol]on 12-29-2023 Magnesium [Moles/Vol] 0.63 mmol/L Normal 0.45-0.74 [facility] Comment on above: Result Comment: NEW REFERENCE RANGE Performed By: #### 7 3572-0 #### [facility] ([id number]) [address], [address] [place] [address] PROTIME AND INRon 12-29-2023 INR Coag (PPP) [Relative time] 1.0 {INR} Normal 0.8-1.1 [facility] Comment on above: Performed By: #### C SHIN, PINR, 63045-7, BMP #### [facility] ([id number]) [address], [address] [place] [address] PT Coag (PPP) [Time] 12.0 s Normal 9.8-13.2 [facility] Comment on above: Performed By: #### C SHIN, PINR, 91907-9, BMP #### [facility] ([id number]) [address], [address] [place] [address] RAPID CARDIACon 12-29-2023 SHAUNNA'S TEST Normal [facility] Comment on above: Performed By: #### A FAB5 #### [facility] ([id number]) [address] [place] [address] BASE,DEFICIT 2.0 MMOL/L Normal 0.0-2.0 [facility] Comment on above: Performed By: #### A FAB5 #### [facility] ([id number]) [address] [place] [address] Body temperature 98.6 [degF] Normal 37.0 [facility] Comment on above: Performed By: #### A FAB5 #### [facility] ([id number]) [address] [place] [address] Glucose [Mass/Vol] 111 mg/dL High 65-99 [facility] Comment on above: Performed By: #### A FAB5 #### [facility] ([id number]) [address] [place] [address] HCO3 (Bld) [Moles/Vol] 22.4 mmol/L Normal 22-[address] [facility] Comment on above: Performed By: #### A FAB5 #### [facility] ([id number]) [address] [place] [address] Hematocrit (Bld) [Volume fraction] 37 % Low 39-49 [facility] Comment on above: Performed By: #### A FAB5 #### [facility] ([id number]) [address] [place] [address] Hemoglobin (Bld) [Mass/Vol] 12.1 g/dL Low 13.0-17.0 [facility] Comment on above: Performed By: #### A FAB5 #### [facility] ([id number]) [address] [place] [address] INSP. O2 CONC. 100 % Normal [facility] Comment on above: Performed By: #### A FAB5 #### [facility] ([id number]) [address] [place] [address] IONIZED CALCIUM 4.6 mg/dL Normal 4.5-5.3 [facility] Comment on above: Performed By: #### A FAB5 #### [facility] ([id number]) [address] [place] [address] Oxygen (Bld) [Partial pressure] 254 mm[Hg] High 80-100 [facility] Comment on above: Performed By: #### A FAB5 #### [facility] ([id number]) [address] [place] [address] Oxygen saturation in Blood 100.4 % Normal >90 [facility] Comment on above: Performed By: #### A FAB5 #### [facility] ([id number]) [address] [place] [address] PCO2 33.9 MMHG Low 35-45 [facility] Comment on above: Performed By: #### A FAB5 #### [facility] ([id number]) [address] [place] [address] pH (Bld) 7.428 [pH] Normal 7.350-7.450 [facility] Comment on above: Performed By: #### A FAB5 #### [facility] ([id number]) [address] [place] [address] Potassium [Moles/Vol] 3.8 mmol/L Normal 3.5-5.0 [facility] Comment on above: Performed By: #### A FAB5 #### [facility] ([id number]) [address] [place] [address] SAMPLE SITE TANGELA Normal [facility] Comment on above: Performed By: #### A FAB5 #### [facility] ([id number]) [address] [place] [address] SAMPLE TYPE Arterial Normal [facility] Comment on above: Performed By: #### A FAB5 #### [facility] ([id number]) [address] [place] [address] aPTT Coag (PPP) [Time]on aPTT Coag (Bld) [Time] 37 s Normal 26-37 [facility] Comment on above: Performed By: #### C BCA, PINR, 55297-6, BMP #### [facility] ([id number]) [address] [facility], [address] [place] [address] Hgb/Hcton 12-01-2023 Hematocrit (Bld) [Volume fraction] 41.3 % Normal 41.0-53.0 [facility] Comment on above: Performed By: #### F EBC, LIPR, FT4 #### [address] [id number] Podiatric Physician: Arnav Barnes MD #### HH #### [facility] [address] [place], [place] [address] Podiatric Physician: Анна Biswas MD Hemoglobin (Bld) [Mass/Vol] 13.9 g/dL Normal 13.5-17.5 [facility] Comment on above: Performed By: #### F EBC, LIPR, FT4 #### [address] [id number] Podiatric Physician: Arnav Barnes MD #### HH #### [facility] [address] [place], [place] [id number] Podiatric Physician: Анна Biswas MD Iron Binding Cap.on 12-01-19 24 % Fe Saturation 27 % Normal 20-55 [facility] Comment on above: Performed By: #### F EBC, LIPR, FT4 #### [address] 0130008 Podiatric Physician: Arnav Barnes MD #### HH #### [facility] [address] [place], [place] [id number] Podiatric Physician: Анна Biswas MD Iron [Mass/Vol] 79 ug/dL Normal 61-157 [facility] Comment on above: Performed By: #### F EBC, LIPR, FT4 #### [address] [id number] Podiatric Physician: Arnav Barnes MD #### HH #### [facility] [address] [place], [place] [address] Podiatric Physician: Анна Biswas MD Total Fe Binding Cap 292 ug/dL Normal 250-450 [facility] Comment on above: Performed By: #### F EBC, LIPR, FT4 #### [address] [place], [place] [address] Podiatric Physician: Arnav Barnes MD #### HH #### [facility] [address] [place], [place] 2404[address] Podiatric Physician: Анна Biswas MD Unbound Fe Bind Cap 213 ug/dL Normal 112-347 [facility] Comment on above: Performed By: #### F EBC, LIPR, FT4 #### [address] [id number] Podiatric Physician: Arnav Barnes MD #### HH #### [facility] [address] [place] [address] Podiatric Physician: Анна Biswas MD Lipid Profileon 12-01-2023 Cholesterol [Mass/Vol] 151 mg/dL Normal 0-199 [facility] Comment on above: Result Comment: Cholesterol Guidelines: <200 Desirable 200-240 Borderline >240 Undesirable Performed By: #### F EBC, LIPR, FT4 #### [address] [address] Podiatric Physician: Arnav Barnes MD #### HH #### [facility] [address] [place], [place] [address] Podiatric Physician: Анна Biswas MD Cholesterol in HDL [Mass/Vol] 54 mg/dL Normal >40 [facility] Comment on above: Result Comment: HDL Guidelines: <40 Undesirable 40-59 Borderline >59 Desirable Performed By: #### F EBC, LIPR, FT4 #### [facility] [employer] [address] [place] [address] [id number] Podiatric Physician: Arnav Barnes MD #### HH #### [facility] [address] [place], [place] 49[address] Podiatric Physician: Анна Biswas MD Cholesterol in LDL [Mass/Vol] 89 mg/dL Normal 0-100 [facility] Comment on above: Result Comment: LDL Guidelines: <100 Desirable 100-129 Near to/above Desirable 130-159 Borderline >159 Undesirable Direct (measured) LDL and calculated LDL are not interchangeable tests. Performed By: #### F EBC, LIPR, FT4 #### [address] [place], [place] [address]33[address] Podiatric Physician: Arnav Barnes MD #### HH #### [facility] [address] [place], [place] 490[address] Podiatric Physician: Анна Biswas MD Cholesterol in VLDL [Mass/Vol] 8 mg/dL Normal [facility] Comment on above: Performed By: #### F EBC, LIPR, FT4 #### [address] [place], [place] 4338[address] Podiatric Physician: Arnav Barnes MD #### HH #### [facility] [address] [place], [place] [address] Podiatric Physician: Анна Biswas MD Cholesterol.total/Ninoska sterol in HDL [Mass ratio] 3.0 {ratio} Normal [facility] Comment on above: Performed By: #### F EBC, LIPR, FT4 #### [address] [place] [address] Podiatric Physician: Arnav Barnes MD #### HH #### [facility] [address] [place], [place] 68[address] Podiatric Physician: Анна Biswas MD Triglyceride [Mass/Vol] 41 mg/dL Normal <150 M [facility] Comment on above: Result Comment: Triglyceride Guidelines: <150 Desirable 150-199 Borderline 200-499 High >499 Very high Based on AHA Guidelines for fasting triglyceride, March 2012. Performed By: #### F EBC, LIPR, FT4 #### [facility] [employer] [address] [place], [place] [id number] Podiatric Physician: Arnav Barnes MD #### HH #### [facility] [address] [place], [place] [address] Podiatric Physician: Анна Biswas MD Thyroxine, Freeon 12-01-2023 Thyroxine, Free 1.1 ng/dL Normal 0.92-1.68 [facility] Comment on above: Performed By: #### F EBC, LIPR, FT4 #### [facility] [employer] [address] [place], [place] [id number] Podiatric Physician: Arnav Barnes MD #### HH #### [facility] [address] [place] [address] Podiatric Physician: Анна Biswas MD Outside Recordson 11-03-2023 Outside Records [id number] 02 [id number]. [id number] Normal [facility] Office Visiton 08-04-2023 Follow-up visit [id number] [address] 1945 M Date Provider Department Center 08/04/2023 STELLA JANE CARD [facility] Family History Problem Relation Age of Onset Stroke Father Diabetes Father Family Status - Relation Status Age at Father Level of Service:37[address] [place] OFFICE/OUTPATIENT ESTABLISHED LOW MDM 20 MIN Reason for Visit and Comments: Hypertension [916513] Hyperlipidemia [182] Normal [facility] Alanine aminotransferase [En zymatic activity/volume] in Serum or PlasmaOrdered By: Leonides Dyer on 06-06-2023 ALT [Catalytic activity/Vol] 23 U/L Normal [facility] Comment on above: Performed By: #### C BC, CMP #### [facility] [address] Albumin [Mass/volume] in Ser um or Plasma by Bromocresol green (BCG) dye binding methoOrdered By: Leonides Manisha on 06-06-2023 Albumin BCG dye [Mass/Vol] 4.3 g/dL 3.5-5.7 [facility] Alkaline phosphatase [Enzyma tic activity/volume] in Serum or PlasmaOrdered By: Leonidescecy Dyer on 06-06-2023 ALP [Catalytic activity/Vol] 42 U/L Normal 34-104 [facility] Comment on above: Performed By: #### C BC, CMP #### [address] Aspartate aminotransferase [ Enzymatic activity/volume] in Serum or PlasmaOrdered By: Leonides Dyre on 06-06-2023 AST [Catalytic activity/Vol] 22 U/L Normal 13-39 [facility] Comment on above: Performed By: #### C BC, CMP #### [address] Automated basophil %Ordered By: Leonides Dyer on 06-06-2023 Basophils/100 WBC (Bld) 0.4 % Normal . [facility] Comment on above: Performed By: #### C BC, CMP #### [address] Automated basophil countOrde red By: Leonides Dyer on 06-06-2023 Basophils (Bld) [#/Vol] 0.0 10*3/uL Normal 0.0-0.2 [facility] Comment on above: Result Comment: PERF ORMED BY: [place] [address] PATHOLOGIST PROGRAM MGR ANNABEL SANON M.D. Performed By: #### C BC, CMP #### [address] Automated blood monocyte cou ntOrdered By: Leonides Dyer on 06-06-2023 Monocytes (Bld) [#/Vol] 1.0 10*3/uL High 0.0-0.8 [facility] Comment on above: Performed By: #### C BC, CMP #### [address] Automated eosinophil %Ordere d By: Leonides Manisha on 06-06-2023 Eosinophils/100 WBC (Bld) 0.2 % Normal . [facility] Comment on above: Performed By: #### C BC, CMP #### [address] Automated eosinophil countOr dered By: Leonides Marinoconstantine on 06-06-2023 Eosinophils (Bld) [#/Vol] 0.0 10*3/uL Normal 0.0-0.45 [facility] Comment on above: Performed By: #### C BC, CMP #### [address] Automated erythrocytes count in urine sediment (number/area)Ordered By: Leonides Manisha on 06-06-2023 RBC Auto (Urine sed) [#/Area] 0-1 [HPF] 0-4 [facility] Automated leukocytes count i n urine sediment (number/area)Ordered By: Leonides Dyer on 06-06-2023 WBC Auto (Urine sed) [#/Area] 1-2 [HPF] 0-4 [facility] Automated monocyte %Ordered By: Leonides Manisha on 06-06-2023 Monocytes/100 WBC (Bld) 20.7 % Normal . F [facility] Comment on above: Performed By: #### C BC, CMP #### [address] Automated neutrophil %Ordere d By: Leonides Dyer on 06-06-2023 Neutrophils/100 WBC (Bld) 66.6 % Normal . [facility] Comment on above: Performed By: #### C BC, CMP #### [address] Automated urine color determ inationOrdered By: Leonides Dyer on 06-06-2023 Color (U) Yellow Normal Yellow [facility] Comment on above: Order Comment: Name Collection Type:: Clean-Voided Midstream Performed By: #### A DDONUAPLUS #### [address] Bilirubin Test strip Ql (U)O rdered By: Leonides Dyer on 06-06-2023 Bilirubin Ql (U) Negative Negative [facility] Bilirubin.total [Mass/volume ] in Serum or PlasmaOrdered By: Leonides Dyer on 06-06-2023 Bilirubin [Mass/Vol] 0.5 mg/dL Normal 0.3-1.0 [facility] Comment on above: Performed By: #### C BC, CMP #### [address] Calcium [Mass/volume] in Ser um or PlasmaOrdered By: Leonides Marinoconstantine on 06-06-2023 Calcium [Mass/Vol] 9.1 mg/dL Normal 8.6-10.3 [facility] Comment on above: Performed By: #### C BC, CMP #### [address] Carbon dioxide, total [Moles /volume] in Serum or PlasmaOrdered By: Leonides Marinoconstantine on 06-06-2023 CO2 [Moles/Vol] 27.5 mmol/L Normal 21.0-31.0 [facility] Comment on above: Performed By: #### C BC, CMP #### [place] [address] [place] Chloride [Moles/volume] in S stephen or PlasmaOrdered By: Leonides Marinoconstantine on 06-06-2023 Chloride [Moles/Vol] 101 mmol/L Normal 98-107 [facility] Comment on above: Performed By: #### C BC, CMP #### [address] Complete Blood Count Auto Di ffon 06-06-2023 Mean Corpuscular HGB Conc 33.8 g/dL Normal 32.5-35.6 [facility] Comment on above: Performed By: #### C BC, CMP #### [place] [address] [place] Monocytes/100 WBC (Bld) 24.84 % High 0.00-20.00 [facility] Comment on above: Result Comment: For adults in ED, MDW > 20.0 may be associated with a higher risk of sepsis during the first 12 hrs of hospital admission Performed By: #### C BC, CMP #### [address] NRBC% 0.1 /100{WBC} Normal 0-0.5 [facility] Comment on above: Performed By: #### C BC, CMP #### [address] Comprehensive Metabolic Pane ruth 06-06-2023 Albumin [Mass/Vol] 4.3 g/dL Normal 3.5-5.7 [facility] Comment on above: Performed By: #### C BC, CMP #### [address] Creatinine Clr Calc Pharmacy 71.67 Normal [facility] Comment on above: Result Comment: PERF ORMED BY: [place] [address] PATHOLOGIST PROGRAM MGR ANNABEL SANON M.D. Performed By: #### C BC, CMP #### [address] GFR/1.73 sq M.predicted MDRD (S/P/Bld) [Vol rate/Area] mL/min/{1.73_m2} Normal [facility] Comment on above: Performed By: #### C BC, CMP #### [place] [address] [place] Creatinine [Mass/volume] in Serum or PlasmaOrdered By: Leonides Dyer on 06-06-2023 Creatinine [Mass/Vol] 0.96 mg/dL Normal 0.70-1.30 [facility] Comment on above: Performed By: #### C BC, CMP #### [place] [address] [place] Dipstick and Microscopicon 1 Appearance (U) Clear Normal Clear [facility] Comment on above: Order Comment: Name Collection Type:: Clean-Voided Midstream Performed By: #### A DDONUAPLUS #### [facility] [address] [place] [address] [place] Bacteria,Urine 1+ High None Seen [facility] Comment on above: Order Comment: Name Collection Type:: Clean-Voided Midstream Performed By: #### A DDONUAPLUS #### [facility] [address] [place] [address] [place] Bilirubin,Urine Negative Normal Negative [facility] Comment on above: Order Comment: Name Collection Type:: Clean-Voided Midstream Performed By: #### A DDONUAPLUS #### [place] [address] [place] Glucose Ql (U) Normal Normal Normal [facility] Comment on above: Order Comment: Name Collection Type:: Clean-Voided Midstream Performed By: #### A DDONUAPLUS #### [place] [address] [place] Hyaline Casts,Urine None Seen Normal 0-8 [facility] Comment on above: Order Comment: Name Collection Type:: Clean-Voided Midstream Result Comment: PERF ORMED BY: [place] [address] PATHOLOGIST PROGRAM MGR ANNABEL SANON M.D. Performed By: #### A DDONUAPLUS #### [place] [address] [place] Ketones Ql (U) 1+ High Negative [facility] Comment on above: Order Comment: Name Collection Type:: Clean-Voided Midstream Performed By: #### A DDONUAPLUS #### [place] [address] [place] Leukocyte esterase Test strip Ql (U) Negative Normal Negative [facility] Comment on above: Order Comment: Name Collection Type:: Clean-Voided Midstream Performed By: #### A DDONUAPLUS #### [place] [address] [place] Nitrite,Urine Negative Normal Negative [facility] Comment on above: Order Comment: Name Collection Type:: Clean-Voided Midstream Performed By: #### A DDONUAPLUS #### [place] [address] [place] Occult Blood,Urine Trace High Negative [facility] Comment on above: Order Comment: Name Collection Type:: Clean-Voided Midstream Result Comment: PERF ORMED BY: [place] [address] PATHOLOGIST PROGRAM MGR ANNABEL SANON M.D. Performed By: #### A DDONUAPLUS #### [address] Protein,Urine Negative Normal Negative [facility] Comment on above: Order Comment: Name Collection Type:: Clean-Voided Midstream Performed By: #### A DDONUAPLUS #### [place] [address] [place] RBC LM.HPF (Urine sed) [#/Area] 0 /[HPF] Normal 0-4 [facility] Comment on above: Order Comment: Name Collection Type:: Clean-Voided Midstream Performed By: #### A DDONUAPLUS #### [place] [address] [place] Specificy [place],Urine 1.018 Normal 1.001-1.030 [facility] Comment on above: Order Comment: Name Collection Type:: Clean-Voided Midstream Performed By: #### A DDONUAPLUS #### [place] [address] [place] Squamous Epithelial Cell,Urine None Seen Normal 0-2 [facility] Comment on above: Order Comment: Name Collection Type:: Clean-Voided Midstream Performed By: #### A DDONUAPLUS #### [place] [address] [place] Urobilinogen,Urine Normal Normal Normal [facility] Comment on above: Order Comment: Name Collection Type:: Clean-Voided Midstream Performed By: #### A DDONUAPLUS #### [place] [address] [place] WBC,Urine 1-2 Normal 0-4 [facility] Comment on above: Order Comment: Name Collection Type:: Clean-Voided Midstream Performed By: #### A DDONUAPLUS #### [facility] [address] [place] [address] ECG 12 lead ECGon 06-06-2023 ECG 12 lead ECG [facility] [place] [address] [place] [address] Electrocardiograph Report Signed Patient: Faith Olivier MR#: [id number] : 1945 Acct:[id number] Age/Sex: 78 / M ADM Date: 06/06/23 Loc: ER Room: Type: [facility] ER Attending Dr: Ordering Provider: Leonides Dyer [...] By Leonides Dyer DO 2312 Normal [facility] Erythrocyte distribution wid th [Ratio] by Automated countOrdered By: Leonides Dyer on 06-06-2023 Erythrocyte distribution width (RBC) [Ratio] 12.9 % Normal 12.0-14.8 [facility] Comment on above: Performed By: #### C BC, CMP #### [facility] [address] [place] [address] [place] Erythrocytes [#/volume] in B lood by Automated countOrdered By: Leonides Dyer on 06-06-2023 RBC (Bld) [#/Vol] 4.13 10*6/uL Normal 3.90-5.60 [facility] Comment on above: Performed By: #### C BC, CMP #### [place] [address] [place] Glucose [Mass/volume] in Ser um or PlasmaOrdered By: Leonides Dyer on 06-06-2023 Glucose [Mass/Vol] 91 mg/dL Normal 70-100 [facility] Comment on above: ADA recommended refe rence rangeRandom Glucose Reference Range is dependent on time and content of last meal. Glucose of more than 200 mg/dL in a nonstressed, ambulatory subject supports the diagnosis of Diabetes Mellitus. Result Comment: [place] om Glucose Reference Range is dependent on time and content of last meal. Glucose of more than 200 mg/dL in a nonstressed, ambulatory subject supports the diagnosis of Diabetes Mellitus. ADA recommended reference range Performed By: #### C BC, CMP #### [address] Hematocrit [Volume Fraction] of Blood by Automated countOrdered By: Leonides Dyer on 06-06-2023 Hematocrit (Bld) [Volume fraction] 39.6 % Normal 38.8-50.0 [facility] Comment on above: Performed By: #### C BC, CMP #### [address] Hemoglobin [Mass/volume] in BloodOrdered By: Leonides Dyer on 06-06-2023 Hemoglobin (Bld) [Mass/Vol] 13.4 g/dL Normal 13.0-17.0 [facility] Comment on above: Performed By: #### C BC, CMP #### [address] Ketones Auto test strip (U) [Mass/Vol]Ordered By: Leonides Dyer on 06-06-2023 Ketones (U) [Mass/Vol] 1+ Negative [facility] [facility] - UrinalysisOrder ed By: Leonides Dyer on 06-06-2023 Hyaline casts LM Ql (Urine sed) None seen [LPF] 0-8 [facility] Leukocytes [#/volume] correc hunter for nucleated erythrocytes in Blood by Automated counOrdered By: Leonides Dyer on 06-06-2023 WBC corrected for nucl RBC Auto (Bld) [#/Vol] 4.9 10*3/uL 4.1-10.5 [facility] Leukocytes [#/volume] in Blo od by Automated countOrdered By: Leonides Dyer on 06-06-2023 WBC (Bld) [#/Vol] 4.9 10*3/uL Normal 4.1-10.5 [facility] Comment on above: Performed By: #### C BC, CMP #### [address] Lymphocytes [#/volume] in Bl ood by Automated countOrdered By: Leonides Dyer on 06-06-2023 Lymphocytes (Bld) [#/Vol] 0.6 10*3/uL Low 1.00-4.8 [facility] Comment on above: Performed By: #### C BC, CMP #### [address] Lymphocytes/100 leukocytes i n Blood by Automated countOrdered By: Leonides Dyer on 06-06-2023 Lymphocytes/100 WBC (Bld) 12.1 % Normal . [facility] Comment on above: Performed By: #### C BC, CMP #### [address] MCH [Entitic mass] by Automa hunter countOrdered By: Leonides Dyer on 06-06-2023 MCH (RBC) [Entitic mass] 32.4 pg Normal 27.5-35.2 [facility] Comment on above: Performed By: #### C BC, CMP #### [address] MCHC Auto (RBC) [Mass/Vol]Or dered By: Leonides Dyer on 06-06-2023 MCHC (RBC) [Mass/Vol] 33.8 g/dL 32.5-35.6 [facility] MCV [Entitic volume] by Auto mated countOrdered By: Leonides Dyer on 06-06-2023 MCV (RBC) [Entitic vol] 95.9 fL Normal 83.5-101 F [facility] Comment on above: Performed By: #### C DIPIKA, CMP #### [facility] [address] Monocyte distribution width [Entitic volume] in Blood by AutomatedOrdered By: Leonides Dyer on 06-06-2023 Monocyte distribution width Auto (Bld) [Entitic vol] 24.84 % 0.00-20.00 [facility] Comment on above: For adults in ED, MD W > 20.0 may be associated with a higher risk of sepsis during the first 12 hrs of hospital admission Neutrophils [#/volume] in Bl ood by Automated countOrdered By: Leonides Dyer on 06-06-2023 Neutrophils (Bld) [#/Vol] 3.3 10*3/uL Normal 1.8-7.7 [facility] Comment on above: Performed By: #### C DIPIKA, CMP #### [facility] [address] Nitrite Test strip Ql (U)Ord ered By: Leonides Dyer on 06-06-2023 Nitrite Ql (U) Negative Negative [facility] No Panel InformationOrdered By: Leonides Dyer on 06-06-2023 Estimated GFR (CKD-EPI) > 60.0 mL/Min [facility] Creatinine Clearance (Chem 71.67 [facility] Nucleated erythrocytes [Pres ence] in Blood by Automated countOrdered By: Leonides Dyer on 06-06-2023 Nucleated RBC Auto Ql (Bld) 0.1 /100{WBC} 0-0.5 [facility] Platelet mean volume [Entiti c volume] in Blood by Automated countOrdered By: Leonides Dyer on 06-06-2023 Platelet mean volume (Bld) [Entitic vol] 7.4 fL Normal 6.6-10.1 [facility] Comment on above: Performed By: #### C BC, CMP #### [facility] [address] [place] [address] [place] Platelets [#/volume] in Bloo d by Automated countOrdered By: Leonides Dyer on 06-06-2023 Platelets (Bld) [#/Vol] 175 10*3/uL Normal 150-450 [facility] Comment on above: Performed By: #### C BC, CMP #### [address] Potassium [Moles/volume] in Serum or PlasmaOrdered By: Leonides Dyer on 06-06-2023 Potassium [Moles/Vol] 3.8 mmol/L Normal 3.5-5.1 [facility] Comment on above: Performed By: #### C BC, CMP #### [address] Protein Auto test strip (U) [Mass/Vol]Ordered By: Leonides Dyer on 06-06-2023 Protein (U) [Mass/Vol] Negative Negative [facility] Protein [Mass/volume] in Ser um or PlasmaOrdered By: Leonides Dyer on 06-06-2023 Protein [Mass/Vol] 7.5 g/dL Normal 6.4-8.9 [facility] Comment on above: Performed By: #### C BC, CMP #### [address] Serum globulin measurement b y calculation (mass/volume)Ordered By: Leonides Dyer on 06-06-2023 Globulin (S) [Mass/Vol] 3.2 g/dL Normal [facility] Comment on above: Performed By: #### C BC, CMP #### [address] Serum or plasma albumin/glob ulin mass ratioOrdered By: Leonides Dyer on 06-06-2023 Albumin/Globulin [Mass ratio] 1.3 {ratio} Normal [facility] Comment on above: Performed By: #### C BC, CMP #### [address] Serum or plasma anion gap de terminationOrdered By: Leonides Dyer on 06-06-2023 Anion gap [Moles/Vol] 8.3 mmol/L Normal 6.0-15.0 [facility] Comment on above: Performed By: #### C BC, CMP #### [address] [place] [address] [place] Sodium [Moles/volume] in Ser um or PlasmaOrdered By: Leonides Dyer on 06-06-2023 Sodium [Moles/Vol] 133 mmol/L Low 136-145 [facility] Comment on above: Performed By: #### C DIPIKA, CMP #### [facility] [address] [place] [id number] [place] Specific gravity Auto test s trip (U) [Rel density]Ordered By: Leonides Dyer on 06-06-2023 Specific gravity (U) [Rel density] 1.018 1.001-1.030 [facility] Squamous epithelial cells de tection in urine sediment by light microscopyOrdered By: Leonides Dyer on 06-06-2023 Epithelial cells.squamous LM Ql (Urine sed) None seen [HPF] 0-2 [facility] Urea nitrogen [Mass/volume] in Serum or PlasmaOrdered By: Leonides Dyer on 06-06-2023 Urea nitrogen [Mass/Vol] 16 mg/dL Normal 7-25 [facility] Comment on above: Performed By: #### C DIPIKA, CMP #### [facility] [address] [place] [id number] [facility] Urine bacteria detection by automated methodOrdered By: Leonides Dyer on 06-06-2023 Bacteria Auto Ql (U) 1+ None Seen [facility] Urine clarity by refractomet ry automatedOrdered By: Leonides Dyer on 06-06-2023 Clarity Refractometry automated (U) Clear Clear [facility] Urine glucose measurement by automated test strip (mass/volume)Ordered By: Leonides Dyer on 06-06-2023 Glucose Auto test strip (U) [Mass/Vol] Normal mg/dL Normal [facility] Urine hemoglobin detection b y automated test stripOrdered By: Leonides Dyer on 06-06-2023 Hemoglobin Auto test strip Ql (U) Trace Negative [facility] Urine leukocyte esterase det ection by automated test stripOrdered By: Leonides Dyer on 06-06-2023 Leukocyte esterase Auto test strip Ql (U) Negative Negative [facility] Urine pH measurement by auto mated test stripOrdered By: Leonides Dyer on 06-06-2023 pH (U) 5.5 [pH] Normal 5.0-9.0 [facility] Comment on above: Order Comment: Name Collection Type:: Clean-Voided Midstream Performed By: #### A DDONUAPLUS #### [address] Urobilinogen Auto test strip (U) [Mass/Vol]Ordered By: Leonides Dyer on 06-06-2023 Urobilinogen (U) [Mass/Vol] Normal mg/dL Normal [facility] XR chest 2V*on 06-06-2023 XR chest 2V* [facility] Main [place] [address] [place] [address] XRay Report Signed Patient: Faith Olivier MR#: [id number] : 1945 Acct:[id number] Age/Sex: 78 / M ADM Date: 06/06/23 Loc: ER Room: Type: [facility] ER Attending Dr: Copies to: Leonides Dyer [...] Tristan Bruce M.D.06/06/2023 7:14 PM Dictation Location: [place] [address] Transcribed By: [facility] 06/06/231913 Dictated By: Tristan Bruce DO 06/06/231912 Signed By: 06/06/231913 Normal [facility] B12/Folate Panelon 3 Cobalamin (Vitamin B12) [Mass/Vol] 673 pg/mL Normal 232-1245 [facility] Comment on above: Performed By: #### B 12FOL, VD25 #### [facility] [employer] [address] [place] [address] Podiatric Physician: Arnav Barnes MD #### CDP #### [facility] [address] [place] [address] Podiatric Physician: Анна Biswas MD Folic Acid 15.9 ng/mL Normal >4.8 [facility] Comment on above: Performed By: #### B 12FOL, VD25 #### [address] [address] Podiatric Physician: Arnav Barnes MD #### CDP #### [facility] [address] [place] [address] Podiatric Physician: Анна Biswas MD CBC with Diffon 04-27-2023 Abs. Basophil 0.02 k/uL Normal 0.00-0.20 [facility] Comment on above: Performed By: #### Kelly 12GAMALIEL, VD25 #### [address] [address] Podiatric Physician: Arnav Barnes MD #### CDP #### [facility] [address] [place] [address] Podiatric Physician: Анна Biswas MD Abs.Imm.Granulocyte 0.01 k/uL Normal 0.00-0.30 [facility] Comment on above: Performed By: #### Kelly 12FOL, VD25 #### [address] [address] Podiatric Physician: Arnav Barnes MD #### CDP #### [facility] [address] [place] [address] Podiatric Physician: Анна Biswas MD Abs.Neutrophil (Seg) 2.87 k/uL Normal 2.1-6.5 [facility] Comment on above: Performed By: #### B 12FOL, VD25 #### [address] [address] Podiatric Physician: Arnav Barnes MD #### CDP #### [facility] [address] [place] [address] Podiatric Physician: Анна Biswas MD Basophils/100 WBC (Bld) 0 % Normal 0-2 M [facility] Comment on above: Performed By: #### B 12FOL, VD25 #### [address] [address] Podiatric Physician: Arnav Barnes MD #### CDP #### [facility] [address] [place] [address] Podiatric Physician: Анна Biswas MD Eosinophils (Bld) [#/Vol] 0.06 10*3/uL Normal 0.00-0.40 [facility] Comment on above: Performed By: #### Kelly 12FOL, VD25 #### [address] [address] Podiatric Physician: Arnav Barnes MD #### CDP #### [facility] [address] [place] [address] Podiatric Physician: Анна Biswas MD Eosinophils/100 WBC (Bld) 1 % Normal [address] Comment on above: Performed By: #### B 12FOL, VD25 #### [address] [address] Podiatric Physician: Arnav Barnes MD #### CDP #### [facility] [address] [place] [address] Podiatric Physician: Анна Biswas MD Immature granulocytes/100 WBC (Bld) 0 % Normal 0-5 [facility] Comment on above: Performed By: #### B 12FOL, VD25 #### [address] [address] Podiatric Physician: Arnav Barnes MD #### CDP #### [facility] [address] [place] [address] Podiatric Physician: Анна Biswas MD Lymphocytes (Bld) [#/Vol] 1.60 10*3/uL Normal 1.00-4.80 [facility] Comment on above: Performed By: #### B 12FOL, VD25 #### [address] [id number] Podiatric Physician: Arnav Barnes MD #### CDP #### [facility] [address] [place] [address] Podiatric Physician: Анна Biswas MD Lymphocytes/100 WBC (Bld) 32 % Normal 13-44 [facility] Comment on above: Performed By: #### B 12FOL, VD25 #### [address] [id number] Podiatric Physician: Arnav Barnes MD #### CDP #### [facility] [address] [place], [place] [id number] Podiatric Physician: Анна Biswas MD Monocytes (Bld) [#/Vol] 0.51 10*3/uL Normal 0.00-1.00 [facility] Comment on above: Performed By: #### B 12FOL, VD25 #### [address] [id number] Podiatric Physician: Arnav Barnes MD #### CDP #### [facility] [address] [place], [place] [id number] Podiatric Physician: Анна Biswas MD Monocytes/100 WBC (Bld) 10 % High 5-9 M [facility] Comment on above: Performed By: #### B 12FOL, VD25 #### [address] [address] Podiatric Physician: Arnav Barnes MD #### CDP #### [facility] [address] [place], [place] [id number] Podiatric Physician: Анна Biswas MD Neutrophil (Seg) 57 % Normal 39-75 [facility] Comment on above: Performed By: #### B 12FOL, VD25 #### [place] [address] [place], [place] [address] Podiatric Physician: Arnav Barnes MD #### CDP #### [facility] [address] [place], [place] 0507[address] Podiatric Physician: Анна Biswas MD Erythrocyte distribution width (RBC) [Ratio] 12.8 % Normal 12.1-15.2 [facility] Comment on above: Performed By: #### B 12FOL, VD25 #### [address] [id number] Podiatric Physician: Arnav Barnes MD #### CDP #### [facility] [address] [place], [place] [id number] Podiatric Physician: Анна Biswas MD Hematocrit (Bld) [Volume fraction] 43.9 % Normal 41.0-53.0 [facility] Comment on above: Performed By: #### B 12FOL, VD25 #### [address] [id number] Podiatric Physician: Arnav Barnes MD #### CDP #### [facility] [address] [place], [place] [address] Podiatric Physician: Анна Biswas MD Hemoglobin (Bld) [Mass/Vol] 14.7 g/dL Normal 13.5-17.5 [facility] Comment on above: Performed By: #### B 12FOL, VD25 #### [address] [id number] Podiatric Physician: Arnav Barnes MD #### CDP #### [facility] [address] [place] [address] Podiatric Physician: Анна Biswas MD MCH (RBC) [Entitic mass] 31.8 pg Normal 26.0-34.0 [facility] Comment on above: Performed By: #### B 12FOL, VD25 #### [place] [address] [place], [place] [address] Podiatric Physician: Arnav Barnes MD #### CDP #### [facility] [address] [place] [address] Podiatric Physician: Анна Biswas MD MCHC (RBC) [Mass/Vol] 33.5 g/dL Normal 31.0-37.0 [facility] Comment on above: Performed By: #### B 12FOL, VD25 #### [address] [id number] Podiatric Physician: Arnav Barnes MD #### CDP #### [facility] [address] [place] [address] Podiatric Physician: Анна Biswas MD MCV (RBC) [Entitic vol] 95.0 fL Normal 80.0-100.0 M [facility] Comment on above: Performed By: #### B 12FOL, VD25 #### [address] [id number] Podiatric Physician: Arnav Barnes MD #### CDP #### [facility] [address] [place] [address] Podiatric Physician: Анна Biswas MD Platelet mean volume (Bld) [Entitic vol] 9.0 fL Normal 6.0-12.0 [facility] Comment on above: Performed By: #### B 12FOL, VD25 #### [address] [id number] Podiatric Physician: Arnav Barnes MD #### CDP #### [facility] [address] [place] [address] Podiatric Physician: Анна Biswas MD Platelets (Bld) [#/Vol] 191 10*3/uL Normal 140-450 [facility] Comment on above: Performed By: #### B 12FOL, VD25 #### [address] [address] Podiatric Physician: Arnav Barnes MD #### CDP #### [facility] [address] [place] [address] Podiatric Physician: Анна Biswas MD RBC (Bld) [#/Vol] 4.62 10*6/uL Normal 4.50-5.90 [facility] Comment on above: Performed By: #### B 12FOL, VD25 #### [address] [address] Podiatric Physician: Arnav Barnes MD #### CDP #### [facility] [address] [place] [address] Podiatric Physician: Анна Biswas MD WBC (Bld) [#/Vol] 5.1 10*3/uL Normal 3.5-11.0 [facility] Comment on above: Performed By: #### B 12FOL, VD25 #### [address] [address] Podiatric Physician: Arnav Barnes MD #### CDP #### [facility] [address] [place], [place] [id number] Podiatric Physician: Анна Biswas MD Vitamin D 25 OHon 04-27-2023 Vitamin D 25 [place] 41.3 ng/mL Normal 30.0-100.0 [facility] Comment on above: Result Comment: Reference Range: Vitamin D status Range Deficiency <20 ng/mL Mild Deficiency 20-30 ng/mL Sufficiency 30-100 ng/mL Toxicity >100 ng/mL Performed By: #### B 12FOL, VD25 #### [facility] [address] [place] [address] Podiatric Physician: Arnav Barnes MD #### CDP #### [facility] [address] [place] [address] Podiatric Physician: Анна Biswas MD Comp Metabolic Profon 2022 Albumin [Mass/Vol] 4.2 g/dL Normal 3.5-5.2 [facility] Comment on above: Performed By: #### Shahnaz FAST, CP #### [facility] [address] [place] [address] Podiatric Physician: Анна Biswas MD #### MARGA, PSAS #### [address] [address] Podiatric Physician: Arnav Barnes MD Alkaline Phos 50 U/L Normal 40-129 [facility] Comment on above: Performed By: #### Shahnaz FAST, CP #### [facility] [address] [place], [place] [phone] Podiatric Physician: Анна Biswas MD #### MARGA PSAS #### [address] [address] Podiatric Physician: Arnav Barnes MD ALT [Catalytic activity/Vol] 21 U/L Normal 5-41 [facility] Comment on above: Performed By: #### Z FAST, CP #### [facility] [address] [place] [address] Podiatric Physician: Анна Biswas MD #### LIPR, PSAS #### [address] [address] Podiatric Physician: Arnav Barnes MD Anion gap [Moles/Vol] 8 mmol/L Low 9-17 [facility] Comment on above: Performed By: #### Shahnaz FAST, CP #### [facility] [address] [place], [place] [phone] Podiatric Physician: Анна Biswas MD #### LIPR, PSAS #### [address] [id number] Podiatric Physician: Arnav Barnes MD AST [Catalytic activity/Vol] 20 U/L Normal <40 [facility] Comment on above: Performed By: #### Shahnaz FAST, CP #### [facility] [address] [place], [place] [phone] Podiatric Physician: Анна Biswas MD #### MARGA, PSAS #### [address] [id number] Podiatric Physician: Arnav Barnes MD Bilirubin [Mass/Vol] 0.5 mg/dL Normal 0.3-1.2 [facility] Comment on above: Performed By: #### Shahnaz FAST, CP #### [facility] [address] [place], [place] [id number] Podiatric Physician: Анна Biswas MD #### MARGA, PSAS #### [address] [id number] Podiatric Physician: Arnav Barnes MD BUN/CRE Ratio 17 Normal 9-20 [facility] Comment on above: Performed By: #### Shahnaz FAST, CP #### [facility] [address] [place], [place] [id number] Podiatric Physician: Анна Biswas MD #### LIPR, PSAS #### [address] [id number] Podiatric Physician: Arnav Barnes MD Calcium [Mass/Vol] 9.2 mg/dL Normal 8.6-10.4 [facility] Comment on above: Performed By: #### Shahnaz FAST, CP #### [facility] [address] [place] [address] Podiatric Physician: Анна Biswas MD #### LIPR, PSAS #### [place] [address] [place] [address] Podiatric Physician: Arnav Barnes MD Chloride [Moles/Vol] 104 mmol/L Normal 98-107 [facility] Comment on above: Performed By: #### Z FAST, CP #### [facility] [address] [place] [address] Podiatric Physician: Анна Biswas MD #### LIPR, PSAS #### [address] [id number] Podiatric Physician: Arnav Barnes MD CO2 [Moles/Vol] 27 mmol/L Normal 20-31 [facility] Comment on above: Performed By: #### Shahnaz FAST, CP #### [facility] [address] [place] [address] Podiatric Physician: Анна Biswas MD #### LIPR, PSAS #### [address] [phone] Podiatric Physician: Arnav Barnes MD Creatinine [Mass/Vol] 1.0 mg/dL Normal 0.7-1.2 [facility] Comment on above: Performed By: #### Shahnaz FAST, CP #### [facility] [address] [place] [address] Podiatric Physician: Анна Biswas MD #### LIPR, PSAS #### [address] [id number] Podiatric Physician: Arnav Barnes MD GFR/1.73 sq M.predicted among non-blacks MDRD (S/P/Bld) [Vol rate/Area] mL/min/{1.73_m2} Normal >60 [facility] Comment on above: Result Comment: These results [...] Performed By: #### Shahnaz FAST, CP #### [facility] [address] [place], [place] 8647[address] Podiatric Physician: Анна Biswas MD #### LIPAndrew, PSAS #### [place] [address] [place], [place] [phone] Podiatric Physician: Arnav Barnes MD Glucose [Mass/Vol] 106 mg/dL High 70-99 [facility] Comment on above: Performed By: #### Shahnaz FAST, CP #### [facility] [address] [place], [place] [id number] Podiatric Physician: Анна Biswas MD #### MARGA, PSAS #### [address] [id number] Podiatric Physician: Arnav Barnes MD Potassium [Moles/Vol] 4.1 mmol/L Normal 3.7-5.3 [facility] Comment on above: Performed By: #### Shahnaz FAST, CP #### [facility] [address] [place], [place] 3678[address] Podiatric Physician: Анна Biswas MD #### LIPAndrew, PSAS #### [address] [id number] Podiatric Physician: Arnav Barnes MD Protein [Mass/Vol] 7.0 g/dL Normal 6.4-8.3 [facility] Comment on above: Performed By: #### Z FAST, CP #### [facility] [address] [place], [place] [id number] Podiatric Physician: Анна Biswas MD #### LIPAndrew, PSAS #### [address] [place] [address] Podiatric Physician: Arnav Barnes MD Sodium [Moles/Vol] 139 mmol/L Normal 135-144 [facility] Comment on above: Performed By: #### Shahnaz FAST, CP #### [facility] [address] [place], [place] [id number] Podiatric Physician: Анна Biswas MD #### LIPR, PSAS #### [address] [address] Podiatric Physician: Arnav Barnes MD Urea nitrogen [Mass/Vol] 17 mg/dL Normal 8-23 [facility] Comment on above: Performed By: #### Shahnaz FAST, CP #### [facility] [address] [place], [place] [id number] Podiatric Physician: Анна Biswas MD #### MARGA, PSAS #### [address] [address] Podiatric Physician: Arnav Barnes MD Lipid Profileon 03-16-2023 Cholesterol [Mass/Vol] 138 mg/dL Normal 0-199 [facility] Comment on above: Result Comment: Cholesterol Guidelines: <200 Desirable 200-240 Borderline >240 Undesirable Performed By: #### B 12FOL, VD25 #### [address] [address] Podiatric Physician: Arnav Barnes MD #### CDP #### [facility] [address] [place], [place] [id number] Podiatric Physician: Анна Biswas MD Cholesterol in HDL [Mass/Vol] 53 mg/dL Normal >40 [facility] Comment on above: Result Comment: HDL Guidelines: <40 Undesirable 40-59 Borderline >59 Desirable Performed By: #### B 12FOL, VD25 #### [address] [address] Podiatric Physician: Arnav Barnes MD #### CDP #### [facility] [address] [place], [place] [id number] Podiatric Physician: Анна Biswas MD Cholesterol in LDL [Mass/Vol] 78 mg/dL Normal 0-100 [facility] Comment on above: Result Comment: LDL Guidelines: <100 Desirable 100-129 Near to/above Desirable 130-159 Borderline >159 Undesirable Direct (measured) LDL and calculated LDL are not interchangeable tests. Performed By: #### B 12FOL, VD25 #### [address] [address] Podiatric Physician: Arnav Barnes MD #### CDP #### [facility] [address] [place], [place] [address] Podiatric Physician: Анна Biswas MD Cholesterol in VLDL [Mass/Vol] 8 mg/dL Normal [facility] Comment on above: Performed By: #### B 12FOL, VD25 #### [address] [address] Podiatric Physician: Arnav Barnes MD #### CDP #### [facility] [address] [place], [place] [id number] Podiatric Physician: Анна Biswas MD Cholesterol.total/Ninoska sterol in HDL [Mass ratio] 3.0 {ratio} Normal [facility] Comment on above: Performed By: #### B 12FOL, VD25 #### [address] [address] Podiatric Physician: Arnav Barnes MD #### CDP #### [facility] [address] [place], [place] [address] Podiatric Physician: Анна Biswas MD Triglyceride [Mass/Vol] 38 mg/dL Normal 0-149 M [facility] Comment on above: Result Comment: Triglyceride Guidelines: <150 Desirable 150-199 Borderline 200-499 High >499 Very high Based on AHA Guidelines for fasting triglyceride, March 2012. Performed By: #### B 12FOL, VD25 #### [facility] [address] [place], [place] [address] Podiatric Physician: Arnav Barnes MD #### CDP #### [facility] [address] [place], [place] 118[address] Podiatric Physician: Анна Biswas MD PSA, Screeningon 03-16-2023 Prostatic Spec. Ag 3.36 ng/mL Normal <4.1 [facility] [facility] Comment on above: Result Comment: The Zixi ECLIA assay is used. Results obtained with different assay methods cannot be used interchangeably. Performed By: #### Z FAST, CP #### [facility] [address] [place], [place] [id number] Podiatric Physician: Анна Biswas MD #### LIPR, PSAS #### [facility] [address] [place], [place] [id number] Podiatric Physician: Arnav Barnes MD Patient fasting?on 3 Patient fasting? YES Normal [facility] Comment on above: Performed By: #### Z FAST, CP #### [facility] [address] [place], [place] [id number] Podiatric Physician: Анна Biswas MD #### LIPR, PSAS #### [facility] [address] [place], [place] [id number] Podiatric Physician: Arnav Barnes MD Screenson 01-08-2023 Screens [id number]. [id number]:127 Normal [facility] Ambulatory Visit Summaryon 0 01-07-2023 Ambulatory Visit Summary FAITH OLIVIER :1945 Visit Date:01/07/2023 Ambulatory Visit Instructions Your Diagnosis BPH with obstruction/lower urinary tract symptoms Impotence Tests Performed Urnls Dip Stick Auto w/o Microscopy POC 32380 Your Care Team Attending Physician - KATHY HILL, Chintan oM Primary Care Physician - BREE [employer] TECHNICIAN, CANDACE This Is Your Medications List sildenafil [...] Chintan CHAVEZ MD Where: [facility] Patient Educationon 01-08-20 Patient Education Urology Benign [...] Follow these instructions at home: ? Take [id number] and prescription medicines only as told by [...] the medicine (more content not included)... Normal [facility] Urology Office/Clinic Noteon 01-07-2023 Urology Office/Clinic Note [...] day supply sent of Flomax today to [facility]. Follow up in 1 year. All questions/concerns were discussed. Pt. to call the office if heencounters any issues prior. Pt. acknowledges understanding. 2. Impotence (F52.21: Male erectile disorder) Sildenafil 100 mg PRN therapy, states they use medication intermittently. Refill sent to [facility] due to cost. The patient is here [...] MD, URL [address] [place] [id number]- Additional Instructions: 1 year Patient Education Benign Prostatic Hyperplasia IFanny, personally scribed for Dr. Chavez on 01/07/2023 11:03:23. . Documentation recorded by the scribe, Fanny Mendoza, accurately reflects the services(s) I performed and decisions made by me. Authenticated by Dr. Chavez on 01/07/2023 11:46:31. Portions of this record may have been created with voice recognition artificial intelligence software, specifically Bubbli, Transmension and or Xuehuile. Substitutions may have occurred due to the inherent limitations of voice recognition and artificial intelligence software. Problem List/Past Medical History Ongoing BMI 24.0-24.9, adult BPH with obstruction/lower urinary tract symptoms Former smoker Gross hematuria Impotence Nocturia Weak urinary stream Historical Arthritis Erectile dysfunction Hyperlipidemia Hypertensi (more content not included)... Normal [facility] Comment on above: Result Comment: Elec tronically Signed By: Chintan CHAVEZ MD\.br\Date and Time Signed: 01/07/23 11:47 EDT\.br\Electronically Co-Signed By: Fanny Mendoza\.br\Date and Time Co-Signed: 01/07/23 11:03 EDT\.br\Electronically Co-Signed By: Fanny Mendoza\.br\Date and Time Co-Signed: 01/07/23 11:04 EDT PROF CHEM 8 (BAS METB)on Anion gap [Moles/Vol] 8.8 mmol/L Normal [facility] Comment on above: Performed By: #### B MP #### [facility] [address] [place] [address] [address] Marlen Mckeon Calcium [Mass/Vol] 9.0 mg/dL Normal 8.5-10.[address] [facility] Comment on above: Performed By: #### B MP #### [facility] [address] [place] [address] [address] Marlen Mckeon Chloride [Moles/Vol] 103 mmol/L Normal 98-107 [facility] Comment on above: Performed By: #### B MP #### [facility] [address] [place] [address] Dr. Marlen Mckeon CO2 [Moles/Vol] 29.6 mmol/L Normal 21.0-32.0 The [facility] Comment on above: Performed By: #### B MP #### [facility] [address] [place] [address] [address] Marlen Mckeon Creatinine [Mass/Vol] 0.94 mg/dL Normal 0.70-1.30 [facility] Comment on above: Performed By: #### B MP #### [facility] [address] [place] [address] Dr. Marlen Mckeon EGFR-AF GIBRALTARIAN >60 Normal >=60 The [facility] Comment on above: Performed By: #### B MP #### [facility] [address] [place] [address] [address] Marlen Mckeon EGFR-NON AF GIBRALTARIAN >60 Normal >=60 [facility] Comment on above: Performed By: #### B MP #### [facility] [address] [place] [address] [address] Marlen Mckeon Glucose [Mass/Vol] 89 mg/dL Normal 74-[address] [facility] Comment on above: Performed By: #### B MP #### [facility] [address] [place] [address] Dr. Marlen Mckeon Potassium [Moles/Vol] 4.4 mmol/L Normal 3.5-5.1 [facility] Comment on above: Performed By: #### B MP #### [facility] [address] [place], [place] [address] Dr. Marlen Mckeon Sodium [Moles/Vol] 137 mmol/L Normal 136-145 [facility] Comment on above: Performed By: #### B MP #### [facility] [address] [place], [place] [address] Dr. Marlen Mckeon Urea nitrogen [Mass/Vol] 18.0 mg/dL Normal 7.0-18.0 [facility] Comment on above: Performed By: #### B MP #### [facility] [address] [place], [place] [address] Dr. Marlen Mckeon Urea nitrogen/Creatinine [Mass ratio] 19.1 mg/mg Normal [facility] Comment on above: Performed By: #### B MP #### [facility] [address] [place], [place] [address] Dr. Marlen Mckeon Basic Metabolic Panelon 11- Anion gap [Moles/Vol] 9 mmol/L 9 - 17 mmol/L [facility] Calcium [Mass/Vol] 9.1 mg/dL 8.6 - 10. 4 mg/dL [facility] [employer] Chloride [Moles/Vol] 103 mmol/L 98 - 10 7 mmol/L [facility] CO2 [Moles/Vol] 26 mmol/L 20 - 31 mmol/L [facility] Creatinine [Mass/Vol] 0.83 mg/dL 0.70 - 1.20 mg/dL [facility] GFR/1.73 sq M.predicted MDRD (S/P/Bld) [Vol rate/Area] - PINF [facility] Comment on above: Effective Mar 10, 2022 [...] 101 mg/dL High 70 - 99 mg/dL [facility] Interpretation and review of laboratory results Abnormal [facility] Potassium [Moles/Vol] 4.5 mmol/L 3.7 - 5.3 mmol/L [facility] Sodium [Moles/Vol] 138 mmol/L 135 - 144 mmol/L [facility] Urea nitrogen (BldV) [Mass/Vol] 20 mg/dL 8 - 23 mg/dL [facility] Urea nitrogen/Creatinine (Bld) [Mass ratio] 24 High 9 - 20 [facility] CBC with Auto Differentialon 04-21-2022 Absolute Eos # 0.00 [place] [facility] Absolute Lymph # 1.40 [facility] Absolute [place] # 0.60 [facility] RS [facility] Basophils (Bld) [#/Vol] 0.00 10*3/uL [facility] Basophils/100 WBC (Bld) 0 % 0 - 2 % B ON [facility] Differential Type YES [facility] Eosinophils/100 WBC (Bld) 1 % 0 - 5 % [facility] Hematocrit (Bld) [Volume fraction] 41.3 % 41 - 53 % [facility] Hemoglobin (Bld) [Mass/Vol] 14.0 g/dL 13.5 - 17.5 g/dL [facility] Interpretation and review of laboratory results Abnormal [facility] Lymphocytes/100 WBC (Bld) 27 % 13 - 44 % [facility] MCH (RBC) [Entitic mass] 33.0 pg 26 - 34 pg [facility] MCHC (RBC) [Mass/Vol] 33.9 g/dL 31 - 3 7 g/dL [facility] MCV (RBC) [Entitic vol] 97.4 fL 80 - 100 fL [facility] Monocytes/100 WBC (Bld) 11 % High 5 - 9 % B ON [facility] Platelet distribution width (Bld) [Ratio] 13.7 % 12.1 - 15.2 % [facility] Platelets (Bld) [#/Vol] 222 10*3/uL [facility] RBC (Bld) [#/Vol] 4.23 10*6/uL Low 4.5 - 5.9 m/uL [facility] Segmented neutrophils/100 WBC (Bld) 61 % 39 - 75 % [facility] Segs Absolute 3.20 [facility] WBC (Bld) [#/Vol] 5.2 10*3/uL [facility] Gamma GTon 04-21-2022 Gamma glutamyl transferase [Catalytic activity/Vol] 17 U/L 8 - 61 U/L [facility] Hepatic Function Panelon Albumin [Mass/Vol] 4.1 g/dL 3.5 - 5.2 g/dL [facility] ALP (Bld) [Catalytic activity/Vol] 59 U/L 40 - 129 U/L [facility] ALT [Catalytic activity/Vol] 23 U/L 5 - 41 U/L [facility] AST [Catalytic activity/Vol] 20 U/L NINF - 40 U/L [facility] Bilirubin [Mass/Vol] 0.4 mg/dL 0.30 - 1.20 mg/dL [facility] Bilirubin, Indirect Can not be calculated 0.00 - 1.00 mg/dL [facility] Bilirubin.indirect [Mass/Vol] mg/dL NINF - 0.31 mg/dL [facility] Protein [Mass/Vol] 7.3 g/dL 6.4 - 8.3 g/dL [facility] Lipid Panelon 04-21-2022 Cholesterol [Mass/Vol] 128 mg/dL [facility] mg/dL [facility] Comment on above: Cholesterol Guidelines: <200 Desirable 200-240 Borderline >240 Undesirable Cholesterol in HDL [Mass/Vol] 52 mg/dL 40 - PINF mg/dL [facility] Comment on above: HDL Guidelines: <40 Undesirable 40-59 Borderline >59 Desirable Cholesterol in LDL [Mass/Vol] 68 mg/dL 0 - 130 mg/dL [facility] Comment on above: LDL Guidelines: <100 Desirable 100-129 Near to/above Desirable 130-159 Borderline >159 Undesirable Direct (measured) LDL and calculated LDL are not interchangeable tests. Cholesterol.total/Ninoska sterol in HDL [Mass ratio] 2.5 {ratio} NINF - 5 [employer] Triglyceride [Mass/Vol] 38 mg/dL NINF - 150 mg/dL [facility] [employer] Comment on above: Triglyceride Guidelines: <150 Desirable 150-199 Borderline 200-499 High >499 Very high Based on AHA Guidelines for fasting triglyceride, March 2012. No Panel Informationon 04-21 [facility] [employer] [facility] Patient Fasting?on 2 Patient Fasting? YES [facility] [employer] [facility] 7 [employer] COVID-19 SOFIAOrdered By: Nida Baer on 04-11-2022 SARS-CoV+SARS-CoV-2 (COVID-19) Ag IA.rapid Ql (Resp) Negative Negative [facility] Comment on above: This is a duplicate Shanon SARS Antigen (HERNAN) result to be used for statistical tracking purpose only. No Panel InformationOrdered By: Christiano Baer on 04-11-2022 SARS Antigen (LFIA) [facility] XR FACIAL BONES (MIN 3 VIEWS )on 03-13-2022 Undisplaced nasal bone fracture. [facility] CON[facility] EXAM: XR FACIAL BONE S (MIN 3 VIEWS ) HISTORY: Reason for exam:->frontal facial injury due to fall while intoxicated COMPARISON: None. TECHNIQUE: Facial bones 5 images. FINDINGS: Undisplaced fracture of the nasal bone. Spinous process of the maxilla is intact. Orbital floors and kelley are intact. The paranasal sinuses are normally aerated. [facility] Perez Lopez Jr., MD - 03/13/2022 [...] normally aerated. IMPRESSION: Undisplaced nasal bone fracture. [employer] Work Phone: Radiology Study observation (narrative) [employer] Work Phone: XR FACIAL BONES (MIN 3 VIEWS )Ordered By: Perez Lopez on 03-13-2022 [employer] Phone: XR LUMBAR SPINE (MIN 4 VIEWS )on 11-11-2021 Degenerative changes. [facility] EXAM: XR LUMBAR SPIN E (MIN 4 VIEWS) HISTORY: Reason for exam:->fall off pickup truck tail gait 10/31/21. COMPARISON: None. TECHNIQUE: Lumbar spine 5 views. FINDINGS: Moderate diffuse age expected disc degenerative change without fracture. [facility] Jessica, Perez carvajal Jr., MD - 11/11/2021 EXAM: XR LUMBAR SPINE (MIN 4 VIEWS) HISTORY: Reason for exam:->fall off pickup truck tail gait 10/31/21. COMPARISON: None. TECHNIQUE: Lumbar spine 5 views. FINDINGS: Moderate diffuse age expected disc degenerative change without fracture. IMPRESSION: Degenerative changes. [employer] Phone: Radiology Study observation (narrative) [employer] Phone: XR LUMBAR SPINE (MIN 4 VIEWS )Ordered By: Perez Lopez on 11-11-2021 [employer] Phone: US Carotid, Bilateralon US Carotid, Bilateral [...] by Sahil Perla on 07/15/2021 1018 Normal [facility] Specialist Operative Reporton Operative Report MR#: [id number] I [facility] Pt. Name: Faith Olivier Room #: FABIANA [id number] Discharge 06/26/2021 Date: Birthdate: 1945 OPERATIVE REPORT [...] Mora M.D. Date Trans: 06/30/2021 02:06 A/grabiel [id number] Normal [facility] BASIC METABOLIC PANELon 06-08 Calcium [Mass/Vol] 8.7 mg/dL Normal 8.6-10.3 [facility] Comment on above: Order Comment: No: D o not add to previous draw Performed By: #### 0 0071, [id number], 86440 #### [facility] [address] [place] [address], [facility] Chloride [Moles/Vol] 106 mmol/L Normal 98-107 [facility] Comment on above: Order Comment: No: D o not add to previous draw Performed By: #### 0 0071, 15109, 65107 #### [facility] [address] [place] [address], [place] CO2 [Moles/Vol] 25 mmol/L Normal 21-31 The [facility] Comment on above: Order Comment: No: D o not add to previous draw Performed By: #### 0 0071, 86733, 92242 #### [facility] [address] [place] [address], [place] Creatinine [Mass/Vol] 0.69 mg/dL Low 0.70-1.30 The [facility] Comment on above: Order Comment: No: D o not add to previous draw Performed By: #### 0 0071, 16495, 85559 #### [facility] [address] [place] [address], [place] GFR/1.73 sq M.predicted among blacks MDRD (S/P/Bld) [Vol rate/Area] mL/min/{1.73_m2} Normal >60 [facility] Comment on above: Order Comment: No: D o not add to previous draw Result Comment: Calc ulation may not be valid for patients over 70 years Performed By: #### 0 0071, 98753, 67830 #### [facility] [address] [place] [address], [facility] GFR/1.73 sq M.predicted among non-blacks MDRD (S/P/Bld) [Vol rate/Area] mL/min/{1.73_m2} Normal >60 The [facility] Comment on above: Order Comment: No: D o not add to previous draw Result Comment: Calc ulation may not be valid for patients over 70 years Performed By: #### 0 0071, 33404, 43227 #### [facility] [address] [place] [address], [facility] Glucose [Mass/Vol] 122 mg/dL High 70-100 The [facility] Comment on above: Order Comment: No: D o not add to previous draw Performed By: #### 0 0071, 00850, 92150 #### [facility] [address] [place] [address], [place] Potassium [Moles/Vol] 3.7 mmol/L Normal 3.5-5.1 [facility] Comment on above: Order Comment: No: D o not add to previous draw Performed By: #### 0 0071, 98567, 76917 #### [facility] [address] [place] [address], [place] Sodium [Moles/Vol] 135 mmol/L Low 136-145 The [facility] Comment on above: Order Comment: No: D o not add to previous draw Performed By: #### 0 0071, 90655, 74011 #### [facility] [address] [place] [address], [place] Urea nitrogen [Mass/Vol] 9 mg/dL Normal 7-25 The [facility] Comment on above: Order Comment: No: D o not add to previous draw Performed By: #### 0 0071, 25997, 66191 #### [facility] [address] [place] [id number], [facility] CBC W/DIFFon 06-26-2021 ABS IMM GRANS 0.0 10*3/uL Normal 0.0-0.2 The [facility] Comment on above: Order Comment: No: D o not add to previous draw Performed By: #### 5 0103 #### [facility] [address] [place] [address], [facility] ABS NEUTROPHILS 4.3 10*3/uL Normal 1.6-7.6 The [facility] Comment on above: Order Comment: No: D o not add to previous draw Performed By: #### 5 0103 #### [facility] [address] [facility] [place] [address], [facility] Basophils (Bld) [#/Vol] 0.0 10*3/uL Normal 0.0-0.2 The [facility] Comment on above: Order Comment: No: D o not add to previous draw Performed By: #### 5 0103 #### [facility] [address] [facility] [place] [address], [facility] Basophils/100 WBC (Bld) 0.4 % Normal 0.0-1.0 T [facility] Comment on above: Order Comment: No: D o not add to previous draw Performed By: #### 5 0103 #### [facility] [address] [facility] [place] [address], [facility] Eosinophils (Bld) [#/Vol] 0.1 10*3/uL Normal 0.0-0.5 The [facility] Comment on above: Order Comment: No: D o not add to previous draw Performed By: #### 5 0103 #### [facility] [address] [place] [id number], [facility] Eosinophils/100 WBC (Bld) 0.7 % Normal 0.0-6.0 The [facility] Comment on above: Order Comment: No: D o not add to previous draw Performed By: #### 5 0103 #### [facility] [address] [place] [address], [facility] Erythrocyte distribution width (RBC) [Ratio] 12.3 % Normal 11.5-15.0 The [facility] Comment on above: Order Comment: No: D o not add to previous draw Performed By: #### 5 0103 #### [facility] [address] [place] [id number], [facility] Hematocrit (Bld) [Volume fraction] 36.1 % Low 39.0-50.0 The [facility] Comment on above: Order Comment: No: D o not add to previous draw Performed By: #### 5 0103 #### [facility] [address] [place] [id number], [facility] Hemoglobin (Bld) [Mass/Vol] 12.8 g/dL Low 13.0-17.0 The [facility] Comment on above: Order Comment: No: D o not add to previous draw Performed By: #### 5 0103 #### [facility] [address] [place] [address], [facility] IMMATURE GRANS 0.3 % Normal 0.0-1.0 The [facility] Comment on above: Order Comment: No: D o not add to previous draw Performed By: #### 5 0103 #### [facility] [address] [place] [address], [facility] Lymphocytes (Bld) [#/Vol] 1.6 10*3/uL Normal 1.2-4.0 The [facility] Comment on above: Order Comment: No: D o not add to previous draw Performed By: #### 5 0103 #### [facility] [address] [place] [id number], [facility] Lymphocytes/100 WBC (Bld) 23.4 % Normal 20.0-45.0 The [facility] Comment on above: Order Comment: No: D o not add to previous draw Performed By: #### 5 0103 #### [facility] [address] [place] [address], [facility] MCH (RBC) [Entitic mass] 32.7 pg Normal 27.0-33.0 The [facility] Comment on above: Order Comment: No: D o not add to previous draw Performed By: #### 5 0103 #### [facility] [address] [place] [address], [facility] MCHC (RBC) [Mass/Vol] 35.5 g/dL High 32.0-35.0 The [facility] Comment on above: Order Comment: No: D o not add to previous draw Performed By: #### 5 0103 #### [facility] [address] [place] [address], [facility] MCV (RBC) [Entitic vol] 92.3 fL Normal 82.0-98.0 T [facility] Comment on above: Order Comment: No: D o not add to previous draw Performed By: #### 5 0103 #### [facility] [address] [place] [address], [facility] Monocytes (Bld) [#/Vol] 0.7 10*3/uL Normal 0.1-1.0 The [facility] Comment on above: Order Comment: No: D o not add to previous draw Performed By: #### 5 0103 #### [facility] [address] [facility] [place] [address], [facility] MONOS 10.4 % Normal 5.0-12.0 The [facility] Comment on above: Order Comment: No: D o not add to previous draw Performed By: #### 5 0103 #### [facility] [address] [place] [address], [facility] Neutrophils/100 WBC (Bld) 64.8 % Normal 40.0-72.0 The [facility] Comment on above: Order Comment: No: D o not add to previous draw Performed By: #### 5 0103 #### [facility] [address] [place] [address], [facility] Nucleated RBC/100 WBC (Bld) [Ratio] 0 % Normal 0-0 The [facility] Comment on above: Order Comment: No: D o not add to previous draw Performed By: #### 5 0103 #### [facility] [address] [place] [address], [facility] PLAT CNT 197 10*3/uL Normal 150-400 The [facility] Comment on above: Order Comment: No: D o not add to previous draw Performed By: #### 5 0103 #### [facility] [address] [place] [address], [facility] RBC (Bld) [#/Vol] 3.91 10*6/uL Low 4.20-5.70 The [facility] Comment on above: Order Comment: No: D o not add to previous draw Performed By: #### 5 0103 #### [facility] [address] [place] [id number], [facility] WBC (Bld) [#/Vol] 6.71 10*3/uL Normal 4.00-10.60 The [facility] Comment on above: Order Comment: No: D o not add to previous draw Performed By: #### 5 3 #### [facility] [address] [place] [id number], [facility] LIVER BATTERYon 06-26-2021 Albumin [Mass/Vol] 3.5 g/dL Normal 3.5-5.7 The [facility] Comment on above: Order Comment: No: D o not add to previous draw Performed By: #### 0 0071, 25155, 95514 #### [facility] [address] [place] [address], [facility] ALKALINE PHOSPH 40 IU/L Normal 34-104 The [facility] Comment on above: Order Comment: No: D o not add to previous draw Performed By: #### 0 0071, 81239, 57294 #### [facility] [address] [place] [address], [place] ALT [Catalytic activity/Vol] 18 U/L Normal 7-52 The [facility] Comment on above: Order Comment: No: D o not add to previous draw Performed By: #### 0 0071, 98060, 03067 #### [facility] [facility] [address] [place] [address], [place] AST [Catalytic activity/Vol] 15 U/L Normal 13-39 [facility] Comment on above: Order Comment: No: D o not add to previous draw Performed By: #### 0 0071, [id number], [id number] #### [facility] [place] [address] [place] [address], [place] Bilirubin [Mass/Vol] 0.7 mg/dL Normal 0.3-1.0 The [facility] Comment on above: Order Comment: No: D o not add to previous draw Performed By: #### 0 0071, [id number] #### [facility] [place] [address] [place] [address], [place] Bilirubin.direct [Mass/Vol] 0.2 mg/dL Normal 0.0-0.2 The [facility] Comment on above: Order Comment: No: D o not add to previous draw Performed By: #### 0 0071, [id number], [id number] #### [facility] [place] [address] [place] [address], [place] Protein [Mass/Vol] 6.1 g/dL Normal 6.0-8.3 The [facility] Comment on above: Order Comment: No: D o not add to previous draw Performed By: #### 0 0071, [id number], [id number] #### [facility] [address] [place] [address], [place] MONOSPOTon 06-26-2021 MONOSPOT Negative Normal NEGATIVE [facility] Comment on above: Order Comment: No: D o not add to previous draw Performed By: #### 5 [id number] #### [facility] [address] [place] [address], [facility] PHOSPHORUS BLOODon 2 Phosphate [Mass/Vol] 3.2 mg/dL Normal 2.5-5.0 The [facility] Comment on above: Order Comment: No: D o not add to previous draw Performed By: #### 0 0071, [id number], [id number] #### [facility] [place] [address] [place] [address], [facility] ACTIVATED CLOTTING TIMEon ACTIVATED CLOTTING TIME 252 sec High 82-152 T he [facility] Comment on above: Performed By: #### 3 0739 #### [facility] [place] [address] [place] [address], [facility] ACTIVATED CLOTTING TIME 245 sec High 82-152 T he [facility] Comment on above: Performed By: #### 3 0739 #### [facility] [place] [address] [place] [address], [facility] ACTIVATED CLOTTING TIME 239 sec High 82-152 T he [facility] Comment on above: Performed By: #### 3 0739 #### [facility] [place] [address] [place] [address], [facility] ACTIVATED CLOTTING TIME 265 sec High 82-152 T he [facility] Comment on above: Performed By: #### 3 0739 #### [facility] [place] [address] [place] [id number], [facility] APTTon 06-25-2021 aPTT Coag (Bld) [Time] 47.8 s High 25.0-35.0 Th e [facility] Comment on above: Result Comment: ALL RESULTS [...] PURPOSE. Performed By: #### 5 [id number] #### [facility] [place] [address] CBC COMPLETE BLOOD COUNTon 0 - Erythrocyte distribution width (RBC) [Ratio] 12.1 % Normal 11.5-15.0 [facility] Comment on above: Order Comment: No: D o not add to previous draw Performed By: #### 5 [id number] #### [facility] [place] [address] Hematocrit (Bld) [Volume fraction] 37.5 % Low 39.0-50.0 The [facility] Comment on above: Order Comment: No: D o not add to previous draw Performed By: #### 5 [id number] #### [facility] [address] [facility] Hemoglobin (Bld) [Mass/Vol] 13.3 g/dL Normal 13.0-17.0 The [facility] Comment on above: Order Comment: No: D o not add to previous draw Performed By: #### 5 [id number] #### [facility] [place] [address] MCH (RBC) [Entitic mass] 32.7 pg Normal 27.0-33.0 The [facility] Comment on above: Order Comment: No: D o not add to previous draw Performed By: #### 5 [id number] #### [facility] [place] [address] [place] [address], [facility] MCHC (RBC) [Mass/Vol] 35.5 g/dL High 32.0-35.0 The [facility] Comment on above: Order Comment: No: D o not add to previous draw Performed By: #### 5 [id number] #### [facility] [place] [address] [place] [address], [facility] MCV (RBC) [Entitic vol] 92.1 fL Normal 82.0-98.0 T hong [facility] Comment on above: Order Comment: No: D o not add to previous draw Performed By: #### 5 [id number] #### [facility] [address] [facility] [place] [address], [facility] Nucleated RBC/100 WBC (Bld) [Ratio] 0 % Normal 0-0 The [facility] Comment on above: Order Comment: No: D o not add to previous draw Performed By: #### 5 [id number] #### [facility] [address] [facility] [place] [address], [facility] PLAT CNT 197 10*3/uL Normal 150-400 The [facility] Comment on above: Order Comment: No: D o not add to previous draw Performed By: #### 5 [id number] #### [facility] [place] [address] [facility] [place] [address], [facility] RBC (Bld) [#/Vol] 4.07 10*6/uL Low 4.20-5.70 The [facility] Comment on above: Order Comment: No: D o not add to previous draw Performed By: #### 5 [id number] #### [facility] [place] [address] [facility] [place] [place] [address], [facility] WBC (Bld) [#/Vol] 9.86 10*3/uL Normal 4.00-10.60 The [facility] Comment on above: Order Comment: No: D o not add to previous draw Performed By: #### 5 [id number] #### [facility] [place] [address] [facility] [place] [place] [address], [facility] COMP METABOLIC PANELon 06-25 Albumin [Mass/Vol] 3.7 g/dL Normal 3.5-5.7 The [facility] Comment on above: Order Comment: No: D o not add to previous draw Performed By: #### 0 0121 #### [facility] [place] [address] [place] [address], [facility] ALKALINE PHOSPH 39 IU/L Normal 34-104 The [facility] Comment on above: Order Comment: No: D o not add to previous draw Performed By: #### 0 0121 #### [facility] [place] [address] [place] [address], [place] ALT [Catalytic activity/Vol] 22 U/L Normal 7-52 The [facility] Comment on above: Order Comment: No: D o not add to previous draw Performed By: #### 0 0121 #### [facility] [place] [address] [place] [address], [place] AST [Catalytic activity/Vol] 15 U/L Normal 13-39 The [facility] Comment on above: Order Comment: No: D o not add to previous draw Performed By: #### 0 0121 #### [facility] [place] [address] [place] [address], [place] Bilirubin [Mass/Vol] 0.5 mg/dL Normal 0.3-1.0 The [facility] Comment on above: Order Comment: No: D o not add to previous draw Performed By: #### 0 0121 #### [facility] [place] [address] [place] [address], [place] Calcium [Mass/Vol] 8.9 mg/dL Normal 8.6-10.3 The [facility] Comment on above: Order Comment: No: D o not add to previous draw Performed By: #### 0 0121 #### [facility] [place] [address] [place] [address], [place] Chloride [Moles/Vol] 104 mmol/L Normal 98-107 The [facility] Comment on above: Order Comment: No: D o not add to previous draw Performed By: #### 0 0121 #### [facility] [place] [address] [place] [address], [place] CO2 [Moles/Vol] 25 mmol/L Normal 21-31 The [facility] Comment on above: Order Comment: No: D o not add to previous draw Performed By: #### 0 0121 #### [facility] [place] [address] [place] [address], [place] Creatinine [Mass/Vol] 0.73 mg/dL Normal 0.70-1.30 The [facility] Comment on above: Order Comment: No: D o not add to previous draw Performed By: #### 0 0121 #### [facility] [place] [address] [place] [address], [place] GFR/1.73 sq M.predicted among blacks MDRD (S/P/Bld) [Vol rate/Area] mL/min/{1.73_m2} Normal >60 The [facility] Comment on above: Order Comment: No: D o not add to previous draw Result Comment: Calc ulation may not be valid for patients over 70 years Performed By: #### 0 0121 #### [facility] [place] [address] [place] [address], [place] GFR/1.73 sq M.predicted among non-blacks MDRD (S/P/Bld) [Vol rate/Area] mL/min/{1.73_m2} Normal >60 The [facility] Comment on above: Order Comment: No: D o not add to previous draw Result Comment: Calc ulation may not be valid for patients over 70 years Performed By: #### 0 0121 #### [facility] [place] [address] [place] [address], [place] Glucose [Mass/Vol] 115 mg/dL High 70-100 The [facility] Comment on above: Order Comment: No: D o not add to previous draw Performed By: #### 0 0121 #### [facility] [place] [address] [place] [address], [place] Potassium [Moles/Vol] 3.8 mmol/L Normal 3.5-5.1 The [facility] Comment on above: Order Comment: No: D o not add to previous draw Performed By: #### 0 0121 #### [facility] [place] [address] Protein [Mass/Vol] 6.4 g/dL Normal 6.0-8.3 The [facility] Comment on above: Order Comment: No: D o not add to previous draw Performed By: #### 0 0121 #### [facility] [place] [address] Sodium [Moles/Vol] 135 mmol/L Low 136-145 The [facility] Comment on above: Order Comment: No: D o not add to previous draw Performed By: #### 0 0121 #### [facility] [place] [address] Urea nitrogen [Mass/Vol] 14 mg/dL Normal 7-25 [facility] Comment on above: Order Comment: No: D o not add to previous draw Performed By: #### 0 0121 #### [facility] [place] [address] PROTHROMBIN TIMEon 2 INR Coag (PPP) [Relative time] 1.09 {INR} Normal 0.91-1.16 [facility] Comment on above: Result Comment: ACCC P [...] 1995;[id number]. Performed By: #### 5 [id number] #### [facility] [place] [address] [place] [address], [facility] PT Coag (PPP) [Time] 14.1 s Normal 12.3-14.8 [facility] Comment on above: Result Comment: ALL RESULTS MUST BE INTERPRETED WITH RESPECT TO BLOOD DRAWING ARTIFACT OR DILUTION ERROR OF ANTICOAGULANT AT THE TIME OF SAMPLING. Performed By: #### 5 [id number] #### [facility] [place] [address] [place] [address], [facility] MRI BRAIN WO CONTRASTOrdered By: Candace Burleson on 03-29-2021 Mild cerebral atroph y with minimal small vessel ischemic changes of the supratentorial white matter. [facility] Phone: EXAM: MRI BRAIN WO CONTRAST HISTORY: [...] the paranasal sinuses and mastoid air cells. [facility] Phone: Kenneth, [facility] Incoming Radiant Results From [email or web address] - 03/29/2021 3:13 PM EDT EXAM: MRI [...] ischemic changes of the supratentorial white matter. [facility] Phone: [facility] Phone: Basic Metabolic PanelOrdered By: Candace Burleson on 10-22-2020 Anion gap [Moles/Vol] 8 mmol/L Low 9 - 17 mmol/L [facility] Phone: Calcium [Mass/Vol] 9.3 mg/dL 8.6 - 10. 4 mg/dL [facility] Phone: Chloride [Moles/Vol] 103 mmol/L 98 - 10 7 mmol/L [facility] Phone: CO2 [Moles/Vol] 27 mmol/L 20 - 31 mmol/L [facility] Phone: Creatinine [Mass/Vol] 0.79 mg/dL 0.70 - 1.20 mg/dL [facility] Phone: GFR >60 >60 mL/min [employer] Phone: GFR Non- >60 >60 mL/min [facility] Phone: GFR/1.73 sq M.predicted MDRD (S/P/Bld) [Vol rate/Area] [facility] Phone: Comment on above: Average GFR for 70 o r more years old: 75 mL/min/1.73sq m Chronic Kidney Disease: <60 mL/min/1.73sq m Kidney failure: <15 mL/min/1.73sq m eGFR calculated using average adult body mass. Additional eGFR calculator available at: http://www.LiveDeal/multiple_crcl_2012.htm GFR/1.73 sq M.predicted MDRD (S/P/Bld) [Vol rate/Area] NOT REPORTED [facility] Phone: Glucose [Mass/Vol] 111 mg/dL High 70 - 99 mg/dL [facility] Phone: Interpretation and review of laboratory results Abnormal [facility] Phone: Potassium [Moles/Vol] 4.1 mmol/L 3.7 - 5.3 mmol/L [facility] Phone: Sodium [Moles/Vol] 138 mmol/L 135 - 144 mmol/L [facility] Phone: Urea nitrogen (BldV) [Mass/Vol] 19 mg/dL 8 - 23 mg/dL [facility] Phone: Urea nitrogen/Creatinine (Bld) [Mass ratio] 24 High [facility] Work Phone: CBC Auto DifferentialOrdered By: Candace Burleson on 10-22-2020 [employer] Eos # 0.10 [employer] [facility] Work Phone: Absolute Immature Granulocyte NOT REPORTED [facility] Work Phone: Absolute Lymph # 1.70 [facility] Work Phone: Absolute [place] # 0.50 [employer] [facility] Work Phone: Basophils (Bld) [#/Vol] 0.00 10*3/uL [facility] Work Phone: Basophils/100 WBC (Bld) 1 % 0 - 2 % [facility] Work Phone: Differential Type YES [facility] Work Phone: Eosinophils/100 WBC (Bld) 1 % 0 - 5 % [facility] Phone: Hematocrit (Bld) [Volume fraction] 43.1 % 41 - 53 % [facility] Phone: Hemoglobin.gastrointest inal spec 1 Ql (Stl) 14.6 g/dL 13.5 - 17.5 g/dL [facility] Phone: Immature Granulocytes NOT REPORTED 0 % M [employer] Phone: Interpretation and review of laboratory results Abnormal [facility] Phone: Lymphocytes/100 WBC (Bld) 33 % 13 - 44 % [facility] Phone: MCH (RBC) [Entitic mass] 32.8 pg 26 - 34 pg [facility] Phone: MCHC (RBC) [Mass/Vol] 33.9 g/dL 31 - 3 7 g/dL [facility] Phone: MCV (RBC) [Entitic vol] 96.6 fL 80 - 100 fL [facility] Phone: Monocytes/100 WBC (Bld) 9 % 5 - 9 % [employer] Phone: NRBC Automated NOT REPORTED per 100 WBC [place] [facility] Work Phone: Platelet distribution width (Bld) [Ratio] 13.1 % 12.1 - 15.2 % [facility] Phone: Platelet Estimate NOT REPORTED [facility] Phone: Platelet mean volume (Bld) [Entitic vol] NOT REPORTED 6.0 - 12.0 fL [facility] Phone: Platelets (Bld) [#/Vol] 241 10*3/uL [facility] Phone: RBC (Bld) [#/Vol] 4.46 10*6/uL Low 4.5 - 5.9 m/uL [facility] Phone: RBC (Bld) [#/Vol] NOT REPORTED [facility] Phone: Segmented neutrophils/100 WBC (Bld) 56 % 39 - 75 % [facility] Phone: Segs [employer] Work Phone: WBC (Bld) [#/Vol] 5.1 10*3/uL [employer] Work Phone: WBC (Bld) [#/Vol] NOT REPORTED [facility] Phone: [facility] Phone: Hepatic Function PanelOrdere d By: Candace Burleson on 10-22-2020 Albumin [Mass/Vol] 4.2 g/dL 3.5 - 5.2 g/dL [facility] Phone: Albumin/Globulin Ratio NOT REPORTED [facility] Phone: ALP (Bld) [Catalytic activity/Vol] 52 U/L 40 - 129 U/L [facility] Phone: ALT [Catalytic activity/Vol] 28 U/L 5 - 41 U/L [facility] Phone: AST [Catalytic activity/Vol] 23 U/L <40 [facility] Phone: Bilirubin [Mass/Vol] 0.33 mg/dL 0.30 - 1.20 mg/dL [facility] Phone: Bilirubin, Indirect CANNOT BE CALCULATED 0.00 - 1.00 mg/dL [facility] Phone: Bilirubin.indirect [Mass/Vol] mg/dL <0.31 mg/dL [facility] Phone: Free PSA/Total PSA [Mass fraction] 7.0 g/dL 6.4 - 8.3 g/dL [facility] Phone: Globulin NOT REPORTED 1.5 - 3.8 g/dL [facility] Phone: Lipid PanelOrdered By: Candace Burleson on 10-22-2020 Cholesterol [Mass/Vol] 145 mg/dL <200 [employer] Phone: Comment on above: Cholesterol Guidelines: <200 Desirable 200-240 Borderline >240 Undesirable Cholesterol in HDL [Mass/Vol] 54 mg/dL >40 [facility] Phone: Comment on above: HDL Guidelines: <40 Undesirable 40-59 Borderline >59 Desirable Cholesterol in LDL [Mass/Vol] 85 mg/dL 0 - 130 mg/dL [facility] Phone: Comment on above: LDL Guidelines: <100 Desirable 100-129 Near to/above Desirable 130-159 Borderline >159 Undesirable Direct (measured) LDL and calculated LDL are not interchangeable tests. Cholesterol in VLDL [Mass/Vol] NOT REPORTED 1 - 30 mg/dL [facility] Phone: Cholesterol.total/Ninoska sterol in HDL [Mass ratio] 2.7 {ratio} <5 [facility] Phone: Triglyceride [Mass/Vol] 31 mg/dL <150 [facility]: Comment on above: Triglyceride Guidelines: <150 Desirable 150-199 Borderline 200-499 High >499 Very high Based on AHA Guidelines for fasting triglyceride, March 2012. [facility] Phone: No Panel InformationOrdered By: Candace Burleson on 10-22-2020 [facility] Phone: PSA screeningOrdered By: Flora Burleson on 10-22-2020 [facility] Phone: Patient Fasting?Ordered By: Candace Burleson on 10-22-2020 Patient Fasting? yes [employer] Phone: [facility] Phone: TSH with ReflexOrdered By: Dori Burleson on 10-22-2020 TSH Qn 2.71 m[IU]/L [facility] Work Phone: Comprehensive Metabolic Pane ruth 08-25-2019 Albumin [Mass/Vol] 4.8 g/dL 3.5 - 5.2 g/dL [place], [place] Albumin/Globulin [Mass ratio] NOT REPORTED [place] ALP [Catalytic activity/Vol] 49 U/L 40 - 129 U/L [place] ALT [Catalytic activity/Vol] 39 U/L 5 - 41 U/L [place] Anion gap [Moles/Vol] 11 mmol/L 9 - 17 mmol/L [place] AST [Catalytic activity/Vol] 27 U/L <40 [place] Bilirubin Ql (U) 0.76 mg/dL 0.3 - 1.2 mg/dL [place] Bun/Cre Ratio 17 [place] Calcium [Mass/Vol] 10.5 mg/dL High 8.6 - 10. 4 mg/dL [place] Chloride [Moles/Vol] 99 mmol/L 98 - 10 7 mmol/L [place] CO2 [Moles/Vol] 28 mmol/L 20 - 31 mmol/L [place] Creatinine [Mass/Vol] 0.95 mg/dL 0.7 - 1.2 mg/dL [place] GFR >60 >60 mL/min [place] GFR Non- >60 >60 mL/min [place] GFR/1.73 sq M predicted among non-blacks MDRD (S/P/Bld) [Vol rate/Area] [place] Comment on above: Average GFR for 70 o r more years old: 75 mL/min/1.73sq m Chronic Kidney Disease: <60 mL/min/1.73sq m Kidney failure: <15 mL/min/1.73sq m eGFR calculated using average adult body mass. Additional eGFR calculator available at: http://www.LiveDeal/multiple_crcl_2012.htm GFR/1.73 sq M predicted among non-blacks MDRD (S/P/Bld) [Vol rate/Area] NOT REPORTED [place] Glucose [Mass/Vol] 111 mg/dL High 70 - 99 mg/dL [place] Interpretation and review of laboratory results Abnormal [place] Potassium [Moles/Vol] 4.6 mmol/L 3.7 - 5.3 mmol/L [place] Protein [Mass/Vol] 8.1 g/dL 6.4 - 8.3 g/dL [place] Sodium [Moles/Vol] 138 mmol/L 135 - 144 mmol/L [place] Urea nitrogen [Mass/Vol] 16 mg/dL 8 - 23 mg/dL [place] Lipid Panelon 08-25-2019 Cholesterol [Mass/Vol] 154 mg/dL <200 [place] Comment on above: Cholesterol Guidelines: <200 Desirable 200-240 Borderline >240 Undesirable Cholesterol in HDL [Mass/Vol] 65 mg/dL >40 [place] Comment on above: HDL Guidelines: <40 Undesirable 40-59 Borderline >59 Desirable Cholesterol in LDL [Mass/Vol] 82 mg/dL 0 - 130 mg/dL [place] Comment on above: LDL Guidelines: <100 Desirable 100-129 Near to/above Desirable 130-159 Borderline >159 Undesirable Direct (measured) LDL and calculated LDL are not interchangeable tests. Cholesterol in VLDL [Mass/Vol] NOT REPORTED 1 - 30 mg/dL [place] Cholesterol.total/Ninoska sterol in HDL [Mass ratio] 2.4 {ratio} <5 [place] Triglyceride [Mass/Vol] 36 mg/dL <150 M [place], [place] Comment on above: Triglyceride Guidelines: <150 Desirable 150-199 Borderline 200-499 High >499 Very high Based on AHA Guidelines for fasting triglyceride, March 2012. Patient Fasting?on 0 Patient Fasting? yes [place] TSH with Reflexon 08-25-2019 TSH Qn 3.70 m[IU]/L [place] VL DUP CAROTID BILATERALon 0 08-25-2019 [facility] Procedure Patient Name BORES Date of Study 08/25/2019 FAITH Lombardo Date of 1945 Gender Male Age 74 year(s) Race Room Number US Corporate ID [id number] # Patient Acct [id number] # MR # [id number] [employer] MICHELLE Toscano Interpreting Physician Anusha Lopez Referring Candace Burleson Referring Physician Nurse BIOMEDICAL ELECTRONICS TECHNICIAN Practitioner Procedure Type of Study: Cerebral: Carotid, [...] side. - Additional Measurements:ICAPSV/CC APSV 1.73.ICAEDV/CCAEDV 1.84. [facility]- [place], [place] Kenneth, [employer] Incoming Cardio Results From [employer] - 08/25/2019 2:01 PM EDT [facility] Vascular Carotid Procedure Patient Name CHARLINE Date of Study 08/25/2019 FAITH Lombardo Date of 1945 Gender Male Age 74 year(s) Race Room Number Corporate ID [id number] # Patient Acct [id number] # MR # [id number] [employer] MICHELLE Toscano Interpreting Physician Anusha Lopez Referring Candace Burleson Referring Physician Nurse BIOMEDICAL ELECTRONICS TECHNICIAN Practitioner Procedure Type of Study: Cerebral: Carotid, [...] side. - Additional Measurements:ICAPSV/CC APSV 1.73.ICAEDV/CCAEDV 1.84. [employer] Vitamin B12 & Folateon 08-24 Cobalamin (Vitamin B12) [Mass/Vol] 944 pg/mL 232 - 1245 pg/mL [employer] [employer] Folate >20.0 >4.8 ng/mL [employer] [employer] Vital Signs Date Time Vital Sign Value Performing Clinician David morales 12-31-2023 09:24-0400 Blood Pressure Location Makayla Corona [facility] 12-31-2023 09:24-0400 Diastolic blood pressure 76 mm[Hg] Makayla Galea [facility] 12-31-2023 09:24-0400 Heart rate 72 /min Makayla Galea [facility] 12-31-2023 09:24-0400 Respiratory rate 16 /min Makayla Galea [facility] 12-31-2023 09:24-0400 Systolic blood pressure 124 mm[Hg] Makayla Galea [facility] 06-06-2023 19:37-0500 Body temperature 99.2 [degF] [employer] MECH[employer]IC Candace Burleson Work Phone: [facility] 06-06-2023 19:37-0500 Diastolic blood pressure 82 mm[Hg] BO[employer]ER HOUSE MECHANICAliya Burleson Work Phone: [phone] [place] [address] 06-06-2023 19:37-0500 Heart rate 76 /min [employer] HOUSE MECHANICAliya Burleson Work Phone: [phone] [place] [address] 06-06-2023 19:37-0500 Respiratory rate 22 /min [employer] HOUSE MECHANICAliya Burleson Work Phone: [facility] 06-06-2023 19:37-0500 SaO2% (BldA) [Mass fraction] 99 % [employer] HOUSE MECHANICAliya Burleson Work Phone: [facility] 06-06-2023 19:37-0500 Systolic blood pressure 179 mm[Hg] [employer]ILER HOUSE MECHANICAliya Burleson Work Phone: [facility] 06-06-2023 14:59-0500 Body height 185.42 cm BOILER HOUSE MECHANICAliya Burleson Work Phone: [facility] 06-06-2023 14:59-0500 Body weight 84.7 kg BOILER HOUSE MECHANIC Candace Bree Work Phone: [facility] 01-07-2023 10:31-0400 Diastolic blood pressure 118 mm[Hg] Chintan CHAVEZ [facility] 01-07-2023 10:31-0400 Heart rate 87 /min Chintan CHAVEZ [facility] 01-07-2023 10:31-0400 Systolic blood pressure 157 mm[Hg] Chintan CHAVEZ [facility] 04-15-2022 09:28-0500 Diastolic blood pressure 77 mm[Hg] BOILER HOUSE MECHANICAliya Rubalcava Bree Work Phone: [facility] 04-15-2022 09:28-0500 Heart rate 58 /min BOILER HOUSE MECHANICAliya Rubalcava Bree Work Phone: [facility] 04-15-2022 09:28-0500 Respiratory rate 18 /min [employer]ILER HOUSE MECHANICAliya Rubalcava Bree Work Phone: [facility] 04-15-2022 09:28-0500 SaO2% (BldA) [Mass fraction] 100 % BOILER HOUSE MECHANIClAiya Rubalcava Bree Work Phone: [facility] 04-15-2022 09:28-0500 Systolic blood pressure 125 mm[Hg] BOILER HOUSE MECHANICAliya Rubalcava Bree Work Phone: [facility] 04-15-2022 07:33-0500 Body height 185.42 cm BOILER HOUSE MECHANICAliya Rubalcava Bree Work Phone: [facility] 04-15-2022 07:33-0500 Body temperature 97.9 [degF] BOILER HOUSE MECHANICAliya Rubalcava Bree Work Phone: [facility] 04-15-2022 07:33-0500 Body weight 79.37 kg BOILER HOUSE MECHANICAliya Rubalcava Bree Work Phone: [facility] 01-13-2022 10:01-0400 Blood Pressure Location Chintan CHAVEZ [facility] 01-13-2022 10:01-0400 Diastolic blood pressure 83 mm[Hg] Chintan CHAVEZ [facility] 01-13-2022 10:01-0400 Heart rate 81 /min Chintan CHAVEZ [facility] 01-13-2022 10:01-0400 Respiratory rate 16 /min Chintan CHAVEZ [facility] 01-13-2022 10:01-0400 Systolic blood pressure 129 mm[Hg] Chintan CHAVEZ [facility] Encounters Encounter Date Encounter Type Care Provider Facility Start: 01-27-2024 ambulatory [facility] Facility:[facility] Start: 12-31-2023 End: 12-31-2023 Patient encounter procedure Makayla Corona [facility] Start: 12-30-2023 End: 12-30-2023 Evaluation and management of inpatient JARETH RUSSELL [facility] Start: 12-29-2023 End: 12-30-2023 Evaluation and management of inpatient CARLOS MANUEL Tay [facility] Start: 12-21-2023 End: 12-21-2023 Evaluation and management of inpatient CANDACE [facility] Start: 12-02-2023 End: 12-04-2023 ambulatory AB A LEÓN [facility] Start: 12-01-2023 End: 12-01-2023 ambulatory CANDACE [facility] Start: 11-12-2023 End: 11-12-2023 ambulatory [facility] Start: 10-31-2023 ambulatory [facility] Start: 08-04-2023 End: 08-04-2023 ambulatory [facility] Start: 06-06-2023 End: 06-06-2023 Emergency department patient visit BOILER HOUSE MECHANICAliya Burleson Work Phone: [facility] Work Phone: Start: 04-27-2023 End: 04-27-2023 ambulatory [facility] Start: 03-16-2023 End: 03-16-2023 ambulatory [facility] Start: 01-07-2023 End: 01-08-2023 ambulatory Chintan CHAVEZ Facility:[facility] Start: 01-07-2023 End: 01-07-2023 Patient encounter procedure Chintan CHAVEZ [facility] Start: 08-26-2022 End: 08-26-2022 Patient encounter procedure Chintan CHAVEZ [facility] Start: 08-12-2022 End: 08-13-[address] MORE TRAORE Facility: Start: 04-21-2022 End: 04-21-2022 Subsequent hospital visit by physician Candace Burleson BOILER HOUSE MECHANIC - BIOMEDICAL ELECTRONICS TECHNICIAN Work Phone: [facility] Comment on above: Mixed hyperlipidemia ; Bilateral carotid artery stenosis; Essential hypertension; History of alcoholism (HCC); Primary hypertension Start: 04-15-2022 End: 04-15-2022 Admission to same day surgery center PORTER Burleson Work Phone: [facility] Start: 04-15-2022 End: 04-15-2022 ambulatory PORTER Burleson Work Phone: [facility] Work Phone: Start: 04-11-2022 End: 04-11-2022 ambulatory BO[employer] HOUSE MECHANIC Candace Burleson Work Phone: [facility] Work Phone: Start: 04-11-2022 End: 04-11-2022 Patient encounter procedure PORTER Burleson Work Phone: [facility] Start: 03-13-2022 End: 03-15-2022 Subsequent hospital visit by physician Brian [facility] Comment on above: Fall, initial encoun ter Start: 01-13-2022 End: 01-13-2022 Patient encounter procedure Chintan Chely CHAVEZ [facility] Start: 11-11-2021 End: 11-13-2021 Subsequent hospital visit by physician Brian [facility] Comment on above: Fall, initial encoun ter; Acute midline low back pain without sciatica Start: 06-25-2021 End: 06-26-2021 Evaluation and management of inpatient PHYSICIAN UNKNOWN Facility:[facility] Start: 03-28-2021 End: 03-30-2021 Subsequent hospital visit by physician [facility] M[facility] Scanner [facility] Comment on above: Dizziness; Mild alcohol use disorder, in controlled environment; Bilateral carotid artery stenosis; Short-term memory loss Start: 10-22-2020 End: 10-22-2020 Subsequent hospital visit by physician Candace Burleson BOILER HOUSE MECHANIC - BIOMEDICAL ELECTRONICS TECHNICIAN Work Phone: [facility] Comment on above: [...] pane l calcium total Candace Medina Bree BOILER HOUSE MECHANIC - BIOMEDICAL ELECTRONICS TECHNICIAN Work Phone: Start: 04-21-2022 Lipid panel Candace Maciel ebs BOILER HOUSE MECHANIC - BIOMEDICAL ELECTRONICS TECHNICIAN Work Phone: Start: 04-21-2022 PATIENT FASTING? Candacerandal Burleson BOILER HOUSE MECHANIC - BIOMEDICAL ELECTRONICS TECHNICIAN Work Phone: Start: 04-15-2022 Colonoscopy BOILER HOUSE MECHANIC Candace Burleson Work Phone: Start: 03-13-2022 Radex facial bones c omplete minimum 3 views Johnny A Villaaliya BOILER HOUSE MECHANIC - BIOMEDICAL ELECTRONICS TECHNICIAN Work Phone: Start: 11-11-2021 Radex spine lumbosac ral minimum 4 views Candace Burleson BOILER HOUSE MECHANIC - BIOMEDICAL ELECTRONICS TECHNICIAN Work Phone: Start: 03-28-2021 Mri brain brain stem w/o contrast material Candace Burleson BOILER HOUSE MECHANIC - BIOMEDICAL ELECTRONICS TECHNICIAN Work Phone: Start: 10-22-2020 PSA screening Candace valverde BOILER HOUSE MECHANIC - BIOMEDICAL ELECTRONICS TECHNICIAN Work Phone: Comment on above: The Nataliya ECLIA as say is used. Results obtained with different assay methods cannot be used interchangeably. Start: 10-22-2020 Basic metabolic pane l calcium total Candace Carol Bree BOILER HOUSE MECHANIC - BIOMEDICAL ELECTRONICS TECHNICIAN Work Phone: Start: 10-22-2020 Lipid panel Candace cadena BOILER HOUSE MECHANIC - BIOMEDICAL ELECTRONICS TECHNICIAN Work Phone: Start: 10-22-2020 PATIENT FASTING? Candace Carol Bree BOILER HOUSE MECHANIC - BIOMEDICAL ELECTRONICS TECHNICIAN Work Phone: Start: 06-08-2020 Procedure on artery [...] DTaP/Tdap/Td vaccine (2 - Td or Tdap) [facility] Start: 12-15-2023 DTaP/Tdap/Td vaccine (2 - Td) DTaP/Tdap/Td vaccine (2 - Td) [facility] [place] Start: 04-27-2023 End: 04-27-2023 Patient encounter procedure 04/27/2023 Office Visit Family Medicine Candace Burleson, BOILER HOUSE MECHANIC - BIOMEDICAL ELECTRONICS TECHNICIAN [address] [place] [address] [facility] Start: 04-22-2023 Annual Wellness Visi t (AWV) Annual Wellness Visit (AWV) [facility] Start: 04-21-2023 Lipid panel Lipids [facility] Start: 11-11-2022 Depression Screen Depression Screen [facility] Start: 11-11-2022 Lipid panel Lipids [facility] Start: 10-20-2022 End: 10-20-2022 Patient encounter procedure 10/20/2022 Office Visit Family Medicine Candace Burleson, BOILER HOUSE MECHANIC - BIOMEDICAL ELECTRONICS TECHNICIAN [address] [place] [address] [facility] Start: 04-29-2022 COVID-19 Vaccine (4 - Booster for Pfizer series) COVID-19 Vaccine (4 - Booster for Pfizer series) [facility] Start: 04-15-2022 [facility] Start: 01-06-2022 Influenza vaccination Flu vaccine (# 1) [facility] Start: 12-02-2021 End: 12-02-2021 Patient encounter procedure 12/02/2021 Office Visit Family Candace Artis, BOILER HOUSE MECHANIC - BIOMEDICAL ELECTRONICS TECHNICIAN [address] [place] [address] [facility] Start: 10-28-2021 End: 10-28-2021 Patient encounter procedure 10/28/2021 Office Visit Family Candace Artis, BOILER HOUSE MECHANIC - BIOMEDICAL ELECTRONICS TECHNICIAN [address] [place] [address] [phone] [facility] Start: 10-23-2021 Annual Wellness Visi t (AWV) Annual Wellness Visit (AWV) [facility] Start: 10-22-2021 Creatinine measurement Creatinine monitoring [facility] Work Phone: Start: 10-22-2021 Lipid panel Lipid screen [facility] Work Phone: Start: 10-22-2021 Potassium monitoring Potassium monit oring [facility] Work Phone: Start: 09-06-2021 Colon cancer screen colonoscopy Colon cancer screen colonoscopy [facility] [place] Start: 04-01-2022 Screening for malignant neoplasm of colon Colon cancer screen colonoscopy [facility] [employer] Phone: Start: 08-05-2021 COVID-19 Vaccine (3 - Booster for Pfizer series) COVID-19 Vaccine (3 - Booster for Pfizer series) MEGAN SANCHEZ [facility] [employer] Start: 04-29-2021 End: 04-29-2021 Patient encounter procedure 04/29/2021 Office Visit Family Medicine Candace Burleson, BOILER HOUSE MECHANIC - BIOMEDICAL ELECTRONICS TECHNICIAN [address] [place] [address] [phone] [facility] Start: 02-06-2021 Influenza vaccination [facility] [employer] Phone: Start: 08-24-2020 Creatinine monitoring Creatinine mon [place], [place] Start: 08-24-2020 Lipid screen Lipid screen [place], [place] Start: 08-24-2020 Potassium monitoring Potassium monit [place], [place] Start: 08-17-2020 COVID-19 Vaccine (2 - Pfizer 2-dose series) COVID-19 Vaccine (2 - Pfizer 2-dose series) [facility] [employer] Phone: Start: 09-05-2019 End: 09-05-2019 Office Visit 09/05/2019 Office Visit Family Medicine Candace Burleson, BOILER HOUSE MECHANIC - BIOMEDICAL ELECTRONICS TECHNICIAN [address] [place] [address] [phone] [facility] Start: 08-25-2019 End: 08-25-2019 Appointment 08/25/2019 Appointment Vascular Lab [facility] Start: 04-25-2019 Creatinine monitoring Creatinine mon [place], [place] Start: 04-25-2019 Lipid screen Lipid screen [place], [place] Start: 04-25-2019 Potassium monitoring Potassium monit [place], [place] Start: 04-14-2019 Pneumococcal 65+ years Vaccine (2 of 2 - PPSV23) Pneumococcal 65+ years Vaccine (2 of 2 - PPSV23) [place], [place] Start: 02-06-2019 Influenza vaccination Flu vaccine (# 1) [place] Start: 11-24-2018 Annual Wellness Visi t (AWV) Annual Wellness Visit (AWV) [place] Start: 01-01-2017 Pneumococcal 65+ years Vaccine (2 - PPSV23 or PCV20) Pneumococcal 65+ years Vaccine (2 - PPSV23 or PCV20) [facility] EKG 12 Lead EKG 12 Lead ECG Routine Dizziness Essential hypertension Pure hypercholesterolemia 08/22/2019 2:07 PM EDT [place], [place] End: 08-22-2019 Holter Monitor 48 Hour Holter Monitor 48 Hour Cardiac Services Routine Dizziness 1 Occurrences starting 08/22/2019 until 08/22/2019 [place] Comment on above: 1 Occurrences starti ng 08/22/2019 until 08/22/2019 Patient Education [facility] ED/OP COV ID-19 Discharge Instructions [facility] Work Phone: Patient referral [facility] Work Phone: Immunizations Immunization Date Immunization Notes Care Provider Anabel miller 04-21-2022 pneumococcal polysaccharide vaccine, 23 valent Candace Burleson BOILER HOUSE MECHANIC - BIOMEDICAL ELECTRONICS TECHNICIAN Work Phone: [facility] Work Phone: Comment on above: Result Comment: 2022: VIS DATE: 04/06/2019 03-27-2022 influenza virus vacc ine, unspecified formulation Chintan CHAVEZ [facility] 03-27-2022 Influenza, FLUZONE ( age 65 y+), High Dose, 0.7mL Candace Burleson BOILER HOUSE MECHANIC - BIOMEDICAL ELECTRONICS TECHNICIAN Work Phone: [facility] 03-27-2022 SARS-CoV-2 (COVID-19 ) [id number] Chintan KATHY [facility] 12-27-2021 SARS-CoV-2 mRNA (zennwcsgsfp-baii-clnhix e) vaccine Chintan KATHY [facility] 04-01-2021 influenza virus vacc ine, unspecified formulation [employer] [facility] Comment on above: Result Comment: 2022: VIS DATE: 01/11/2021 04-01-2021 Influenza, Quadv, adjuvanted, 65 yrs +, IM, PF (Fluad) [facility] Work Phone: 03-05-2021 SARS-CoV-2 (COVID-19 ) mRNA BNT-162b2 vax [employer] [facility] Comment on above: Result Comment: 2022: [id number] 07-27-2020 COVID-19, Pfizer, PF , 30mcg/0.3mL Candace SpaBooker BOILER HOUSE MECHANIC - BIOMEDICAL ELECTRONICS TECHNICIAN Work Phone: [facility] Work Phone: 07-06-2020 SARS-CoV-2 (COVID-19 ) mRNA BNT-162h0 vax [employer] [facility] Comment on above: Result Comment: 2022: [id number] 03-26-2020 influenza virus vacc ine, unspecified formulation [employer] [facility] 04-12-2019 influenza virus vacc ine, unspecified formulation [employer] [facility] 09-08-2018 zoster vaccine recombinant [facility] 06-30-2018 zoster vaccine recombinant [facility] 04-20-2018 influenza virus vacc ine, unspecified formulation [employer] [facility] 04-20-2018 influenza, high dose seasonal, preservative-free Candace Bree [facility] [employer] 01-02-2016 pneumococcal conjuga te vaccine, 13 valent Candace Burleson [place], [place] 05-10-2015 influenza virus vacc ine, unspecified formulation Chintan CHAVEZ [facility] 05-10-2015 influenza virus vacc ine, whole virus Candace Burleson [place], [place] 04-14-2014 pneumococcal conjuga te vaccine, 7 valent Candace Burleson [facility] 04-14-2014 pneumococcal polysaccharide vaccine, 23 valent Candace Burleson [facility] 12-14-2013 tetanus toxoid, redu siva diphtheria toxoid, and acellular pertussis vaccine, adsorbed Candace Burleson [facility] 10-03-2013 zoster vaccine, live Candace Burleson [place], [place] Payers Date Payer Category Payer Self-pay [id number] 2023 Unknown [id number] 2014 Medicare MEDICARE RAILROA D MEDICARE xxxxxxxxxxx 2014-Present [phone] [place] [address] xxxxxxxxxxx [id number] 2014 Unknown [employer] [place] [id number] 2014-Present [address] [address] [place] [address] [id number] 2014 Unknown [employer] [facility] [id number] 2014-Present [address] [address] [place] [address] [id number] 1959 Medicare [id number]. [id number] 1959 Unknown [id number] [id number]. [id number] 1945 Unknown [id number] 2.16.840.1.995002.3.579.2.647 1945 Unknown [id number] [id number] 1945 Unknown [id number] 2.16.840.1.653129.3.579.2.727 1945 Unknown [id number] 2.16.840.1.459846.3.579.2.727 1945 Unknown [id number] 2.16.840.1.742296.3.579.2.174 1945 Unknown [id number] 2.16.840.1.639314.3.579.2.174 1945 Unknown [id number] 2.16.840.1.384886.3.579.2.174 1945 Unknown [id number] 2.16.840.1.179748.3.579.2.174 1945 Unknown [id number] 2.16.840.1.409293.3.579.2.1286 1945 Unknown [id number] 2.16.840.1.165420.3.579.2.1286 1945 Unknown [id number] 2.16.840.1.783084.3.579.2.1286 1945 Unknown [id number] 2.16.840.1.482765.3.579.2.1286 1945 Unknown [id number] 2.16.840.1.486997.3.579.2.1286 1945 Unknown [id number] [id number] Medicare Medicare Outpatient [id number] Unknown Regular Insurance [id number] Unknown [id number] Social History Date Type Detail Facility Start: 08-22-2019 End: 12-31-2023 Tobacco smoking status PAIS Former smoker [facility] [place] [place] History of tobacco use Pipe Smoker [place], [place] Start: 08-22-2019 End: 04-21-2022 Alcohol intake Current drinker of alcohol (finding) [place] Start: 08-22-2019 End: 11-11-2021 History SDOH Food Worry 1 [place], [place] Start: 08-22-2019 End: 04-21-2022 History SDOH Transport Med 2 [place] Start: 11-11-2012 Alcohol Comment daily/wine [place], [place] Start: 1945 Sex Assigned At Not on file M [place], [place] Start: 10-22-2020 End: 03-13-2022 Tobacco use and exposure Never used [facility] Start: 10-22-2020 End: 04-21-2022 Alcohol intake [facility] Phone: Start: 10-22-2020 End: 11-11-2021 History SDOH Financial 5 [facility] Phone: Tobacco smoking status Never [facility] Sex Assigned At Male Execut [facility] History of tobacco use Current smoker [facility] [employer] [place] Phone: History of tobacco use Cigarette Smoker [facility] [employer] [place] Phone: Start: 03-13-2020 End: 06-06-2023 Tobacco smoking status NHIS Never smoked tobacco (finding) [facility] Start: 1945 Sex Assigned At Male F [facility] Start: 04-21-2022 History SDOH Physica l Activity DPW 6 [employer] Work Phone: Start: 04-21-2022 History SDOH Physica l Activity MPS 4 [employer] Work Phone: Medical Equipment Procedure Code Equipment Code Equipment Origin al Text Equipment Identifier Dates Repair, hernia, inguinal, with mesh [id number] FDA Start: 03-13-2020 Repair, hernia, inguinal, with mesh [id number] FDA Start: 03-13-2020 Repair, hernia, inguinal, with mesh [id number] FDA Start: 03-13-2020 Goals Date Patient Goal Desired Activity /State Functional Status Date Assessment Result Facility 12-31-2023 Functional Status N/A [facility] 01-07-2023 Functional Status N/A [facility] 01-13-2022 Functional Status No [facility] Clinical Notes 06-30-2021 to 12-31-2023 Note Date [...] urethra. Follow these instructions at home: Take kwol-mmu-cgkwwtb and prescription medicines only as told by [...] provider. Document Revised: 12/11/2021 Document Reviewed: 12/11/2021 i.Meter Patient Education 2022 LookUP. Follow Up Care 12/31/2023 08:38:06 With:KATHY HILL, Chintan Mo, URL Address: [facility] [address] [place] [address]- When: Unknown Comments:Appointment has already been scheduled [facility] 08-04-2023 Note Patient here for 1 y [...] All other systems reviewed and are negative. [facility] 08-04-2023 Note Cardiovascular Medic ine [facility] SUBJECTIVE Chief Complaint Patient presents with [...] Comment: LDL Guideline (more content not included)... [facility] 01-07-2023 Hospital Discharge instructions Patient Education 01/07/2023 [...] urethra. Follow these instructions at home: Take igon-isr-heeyztq and prescription medicines only as told by [...] provider. Document Revised: 12/11/2021 Document Reviewed: 12/11/2021 i.Meter Patient Education 2022 LookUP. Follow Up Care 01/13/2022 10:26:06 With:KATHY HILL, Chintan Mo, URL Address: [address] [place], [place] [id number]- When: Unknown [facility] 08-25-2022 Hospital Discharge instructions Patient Education 08/25/2022 [...] urethra. Follow these instructions at home: Take plkd-txe-hegadmh and prescription medicines only as told by [...] 05/25/2006 Document Revised: 04/19/2019 Document Reviewed: 06/29/2017 i.Meter Patient Education 2020 LookUP. Follow Up Care 08/18/2022 10:34:03 With:KATHY HILL, Chintan Mo, URL Address: [facility] [employer] [place] [id number]- When: Unknown [facility] 04-15-2022 Procedure note [facility] 01-13-2022 Hospital Discharge instructions Patient [...] Follow these instructions at home: Medicines Take inel-lfc-wmevqdk and prescription medicines only as told by [...] 05/22/2001 Document Revised: 05/07/2018 Document Reviewed: 06/10/2017 i.Meter Patient Education 2020 [employer] Follow Up Care 01/14/2021 08:36:30 With:KATHY HILL, Chintan Mo, URL Address: [address] [place] [address]- When:Within 1 Year(s) [facility] 06-30-2021 Note MR#: [id number] I [facility] Pt. Name: Faith Olivier Admitted: 06/25/2021 Discharged: [...] MEDICATIONS: All home medications resumed. Per Dr. Moar, the patient was discharged on single antiplatelet [...] me. Date Dict: 06/30/2021/12:45 P/Luna Salinas M.S., BIOMEDICAL ELECTRONICS TECHNICIAN Date Trans: 06/30/2021 08:59 P/grabiel [id number] [facility] Evaluation + Plan note Future Appointments Appointment Date:01/14/2023 08:45:00 AM Scheduled Provider:Chintan CHAVEZ MD Location:[facility] Appointment Type:URO Office Visit [facility] Evaluation + Plan note Future Appointments Appointment Date:01/07/2023 10:15:00 AM Scheduled Provider:Chintan CHAVEZ MD Location:[facility] Appointment Type:URO Office Visit [facility] Evaluation + Plan note Future Appointments Appointment Date:01/27/2024 10:30:00 AM Scheduled Provider:Chintan CHAVEZ MD Location:[facility] Appointment Type:URO Office Visit [facility] Evaluation + Plan note Future Appointments Appointment Date:01/06/2024 08:30:00 AM Scheduled Provider: Location:[facility] Appointment Type:URO Nurse Visit Appointment Date:01/27/2024 10:30:00 AM Scheduled Provider:Chintan CHAVEZ MD Location:[facility] Appointment Type:URO Office Visit [facility] Evaluation note Diagnosis Prostate cancer screening Special screening for malignant neoplasm of prostate Mixed hyperlipidemia Essential hypertension Unspecified essential hypertension Thyroid disorder screening Screening for thyroid disorder documented in this encounter [employer] Phone: evaluation note* Diagnosis Dizziness Dizziness and giddiness Mild alcohol use disorder, in controlled environment Bilateral carotid artery stenosis Occlusion and stenosis of multiple and bilateral precerebral arteries without mention of cerebral infarction Short-term memory loss Memory loss documented in this encounter [facility] Phone: [email or web address] note* Diagnosis Fall, initial encounter Acute midline low back pain without sciatica documented in this encounter [employer] Phone: [email or web address] note* Diagnosis Fall, initial encounter documented in this encounter [employer] Phone: [email or web address] noteNo assessment information available [facility] Work Phone: Evaluation note* Diagnosis Onset Date Resolution Status Positive colorectal cancer s creening using Cologuard test acute [facility] Work Phone: Evaluation note* Diagnosis Mixed hyperlipidemia Bilateral carotid artery stenosis Occlusion and stenosis of multiple and bilateral precerebral arteries without mention of cerebral infarction Essential hypertension Unspecified essential hypertension History of alcoholism (HCC) Personal history of alcoholism Primary hypertension Unspecified essential hypertension documented in this encounter [employer] Phone: Hospital course Narrative No data available for this section [facility] Discharge instructions Additional Instructions DISCHARGE INSTRUCTIONS [...] if you have any problems. -Office number [phone] Phone: Progress note No data available for this section [facility] Reason for Referral Status Reason Specialty Diagnoses / Procedures Re ferred By Contact Referred To Contact Open Cardiology Diagnoses Dizziness Essential hypertension Pure hypercholesterolemia Procedures EKG 12 Lead Candace Burleson APRN - BIOMEDICAL [place] [address] Status Reason Specialty Diagnoses / Procedures Referre d By Contact Referred To Contact Open EKG Diagnoses Dizziness Procedures Holter Monitor 48 Hour HC HOLTER MONITOR Candace Burleson APRN - BIOMEDICAL [place] [address] [facility] [address] [place] [address] Status Reason Specialty Diagnoses / Procedures Referre d By Contact Referred To Contact Open Diagnoses Dizziness Essential hypertension Procedures VL DUP CAROTID BILATERAL HC EXTRACRANIAL BILAT STUDY Candace Burleson APRN - BIOMEDICAL ELECTRONICS TECHNICIAN [place] [id number] Status Reason Specialty Diagnoses / Procedures Referre d By Contact Referred To Contact Closed Radiology Diagnoses Dizziness Mild alcohol use disorder, in controlled environment Bilateral carotid artery stenosis Short-term memory loss Procedures MRI BRAIN WO CONTRAST Candace Burleson, BOILER HOUSE MECHANIC - BIOMEDICAL ELECTRONICS TECHNICIAN [address] [place] [id number] Assessments Diagnosis Dizziness Dizziness and giddiness Essential hypertension Unspecified essential hypertension Pure hypercholesterolemia Diagnosis Dizziness Dizziness and giddiness Diagnosis Dizziness Dizziness and giddiness Smooth tongue Atrophy of tongue papillae Screening for thyroid disorder Essential hypertension Unspecified essential hypertension Pure hypercholesterolemia Prostate cancer screening Special screening for malignant neoplasm of prostate Diagnosis Dizziness Dizziness and giddiness Essential hypertension Unspecified essential hypertension Advance Directives No Advanced Directives Records FoundDocuments on File Type Date Recorded 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 Advance Directives and Living Will Power of Biomedical Electronics Technician Documents on File Type Date Recorded 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 Advance Directives and Living Will Power of Biomedical Electronics Technician Documents on File Type Date Recorded 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 anation ACP-Advance Directive ACP-Power of Biomedical Electronics Technician Healthcare Agents on File Name Relationship Healthcare Agent Relationshi p Communication Ashleigh Lions Spouse Primary Decision Maker Documents on File Type Date Recorded 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 anation ACP-Advance Directive ACP-Power of Biomedical Electronics Technician Healthcare Agents on File Name Relationship Healthcare Agent Relationshi p Communication Ashleigh Lions Spouse Primary Decision Maker Healthcare Agents on File Name Relationship Healthcare Agent Relationshi p Communication Ashleighandrew Lions Spouse Primary Decision Maker Healthcare Agents on File Name Relationship Healthcare Agent Relationshi p Communication Ashleigh Lions Spouse Primary Decision Maker Healthcare Agents on File Name Relationship Healthcare Agent Relationshi p Communication Ashleigh Lions Spouse Primary Decision Maker Advance Directive Response Recorded Date/ Time Advance Directives No July 4:29pm Documents on File Type Date Recorded 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 anation ACP-Do Not Resuscitate 04/21/2022 9:41 AM 04/21/22 DNR Comfort Care Healthcare Agents on File Name Relationship Healthcare Agent Relationshi p Communication Ashleigh Lions Spouse Primary Decision Maker History of Present Illness * Becca Abdullahi, [facility] - 08/22/2019 2:00 PM EDT The patient was educated on the use of a holter monitor. The patient's comprehension was medium. The patient was able to verbalize recall. The patient was instructed on how and when to return the monitor. Patient also in room during education. Will return when he comes for Doctor appointment. documented in this encounter Summary Purpose Family History No Family History Records Found Relationship Condition Age at Onset Recorded Date/T [...] 48 Hour HC HOLTER MONITOR Candace Burleson, BOILER HOUSE MECHANIC - BIOMEDICAL ELECTRONICS TECHNICIAN [address] [place] [address] [facility] [address] [place] [address] Status Reason Specialty Diagnoses / Procedures Referre d By Contact Referred To Contact Open Diagnoses Dizziness Essential hypertension Procedures VL DUP CAROTID BILATERAL HC EXTRACRANIAL BILAT STUDY Candace Burleson, BOILER HOUSE MECHANIC - BIOMEDICAL ELECTRONICS TECHNICIAN [address] [place] [id number] Status Reason Specialty Diagnoses / Procedures Referre d By Contact Referred To Contact Closed Radiology Diagnoses Dizziness Mild alcohol use disorder, in controlled environment Bilateral carotid artery stenosis Short-term memory loss Procedures MRI BRAIN WO CONTRAST Candace Burleson, BOILER HOUSE MECHANIC - BIOMEDICAL ELECTRONICS TECHNICIAN [address] [place] [address] (unrecognized sect ion and content) No Status Records FoundNo Status Records FoundNo Status Records FoundNo Status Records FoundNo Status Records FoundNo Status Records FoundNo Status Records FoundNo Status Records FoundNo Status Records Found INFORMATION SOURCE (unrecogn ized section and content) DATE CREATED AUTHOR 07/15/2021 [facility] dical Specialist DATE CREATED AUTHOR AUTHOR'S ORGANIZ ATION 07/24/2021 [facility] DATE CREATED AUTHOR AUTHOR'S ORGANIZ ATION 08/14/2022 [facility] DATE CREATED AUTHOR AUTHOR'S ORGANIZ ATION 08/08/2023 [facility] DATE CREATED AUTHOR AUTHOR'S ORGANIZ ATION [facility] DATE CREATED AUTHOR AUTHOR'S ORGANIZ ATION 11/17/2023 [facility] DATE CREATED AUTHOR AUTHOR'S ORGANIZ ATION 12/06/2023 Kaye dobbins DATE CREATED AUTHOR AUTHOR'S ORGANIZ ATION 12/31/2023 [facility] DATE CREATED AUTHOR AUTHOR'S ORGANIZ ATION 01/01/2024 [facility] Care Teams (unrecognized sec tion and content) Team Status: Active Member Role Status Dates Candace Burleson APRN RESOLUTION REP-C Primary Care Provider Active Team Status: Inactive Member Role Status Dates Candace Burleson APRN RESOLUTION REP-C Primary Care Provider Active Leonides Dyer DO Emergency Provider Active Reconciling Clerk Relationship Specialty Start Date End Date Candace Burleson BOILER HOUSE MECHANIC - BIOMEDICAL ELECTRONICS [place] [address] PCP - General 01/09/16 Reconciling Clerk Relationship Specialty Start Date End Date Candace Burleson BOILER HOUSE MECHANIC - BIOMEDICAL ELECTRONICS TECHNICIAN [address] [place] [address] PCP - General 01/09/16 Reconciling Clerk Relationship Specialty Start Date End Date Candace Burleson APRN - BIOMEDICAL ELECTRONICS TECHNICIAN [address] [place] [address] PCP - General 01/09/16 Team Status: Inactive Member Role Status Dates Candace Burleson APRN RESOLUTION REP-C Primary Care Provider Active Christiano Baer MD Attending Provider Active Reconciling Clerk Relationship Specialty Start Date End Date Candace Burleson BOILER HOUSE MECHANIC - BIOMEDICAL [place]RONICS [place] [address] PCP - General 01/09/16 Goals (unrecognized section [...] BE BASED ON THE PRIMARY CLINICAL RECORDS. [facility]. provides no warranty or guarantee of the accuracy or completeness of information in this document.
[2024-01-01 19:18] VITALS: BP 112/86; PULSE 72; TEMP 36.6; O2SAT 99; BMI 24.2
[2024-01-01] MEDS: OXYBUTYNIN CHLORIDE 5 MG TAB XL PO (21:49)
[2024-01-01] MEDS: DONEPEZIL HCL 10 MG TABLET PO (21:49)
[2024-01-01] MEDS: QUETIAPINE FUMARATE 100 MG TABLET PO (21:49)
[2024-01-01] MEDS: ATORVASTATIN CALCIUM 20 MG TABLET PO (21:49)
[2024-01-01] MEDS: TAMSULOSIN HCL 0.4 MG CAPSULE PO (21:49)
[2024-01-01 21:50] VITALS: BP 112/66
[2024-01-02] VITALS (25 sets, daily range): BP systolic 126–171; BP diastolic 69–83; PULSE 72–78; TEMP 36.6–36.8; O2SAT 65–100
[2024-01-02] MEDS: LEVOTHYROXINE SODIUM 25 MCG TABLET 50 MCG PO (06:40)
[2024-01-02 07:01] LABS: Hematocrit 29.6 % (42.0-54.0); Hemoglobin 9.8 g/dL (14.0-18.0); Mean Corpuscular HGB Conc 33.1 g/dL (29.9-35.2); Mean Corpuscular Hemoglobin 31.6 pg (25.9-34.0); Mean Corpuscular Volume 95.5 fL (80.0-94.0); Platelet Count 177 10^3/uL (150-450); Red Cell Distribution Width 13.2 % (11.0-15.0); White Blood Count 7.9 10^3/uL (4.0-11.0)
[2024-01-02 07:15] LABS: BUN Creatinine Ratio 12.8; Calcium 8.5 mg/dL (8.5-10.1); Carbon Dioxide 26.9 mmol/L (21.0-32.0); Chloride 109 mmol/L (98-107); Estimated GFR (African America >60 (>=60); Estimated GFR (Non-African Ame >60 (>=60); Glucose 102 mg/dL (74-106); Potassium 3.9 mmol/L (3.5-5.1); Sodium 144 mmol/L (136-145)
[2024-01-02 08:11] LABS: INR 1.04; Partial Thromboplastin Time 27.8 sec (22.3-36.2)
[2024-01-02] MEDS: SODIUM CHLORIDE IRRIG SOLUTION 3,000 ML 3000 ML IRR ×6 (09:00→21:35)
--- NOTE | 2024-01-02 09:00 | P.HP_ITS ---
HPI H&P: HPI History of Present Illness Chief complaint: BLOOD IN URINE HEMATURIA Narrative: Patient had a recent right carotid endarterectomy, procedure done at [facility], started having hematuria after the procedure due to difficulty placing Valero catheter. The bleeding was improved by doing bladder irrigation there. Bladder irrigation was stopped he still had some mild hematuria and was sent home. At home the bleeding became much worse., They talk to the vascular surgeon who r ecommended going to the emergency room and stopping his Plavix. In the emergency room patient found to have significant hematuria. Patient was admitted for workup and treatment of same. When I saw patient up in the intensive care unit, patient was resting comfortably in his chair. Only complaint was some lower abdominal discomfort secondary to the catheter placement. Reviewing fluid in Valero bag was pretty much just bright red blood. Patient denied any other complaints. Opioid HPI Opioid Management Most Recent Pain and Opioid Data: Last Pain Scale 6 01/02/24 10:09 Last Pain Assessment 01/02/24 10:09 Last MAR Pain Assessment 01/02/24 09:53 Last ORT Total Score 0 01/01/24 19:18 Last ORT Risk Category Low Risk 01/01/24 19:18 Review of Systems ROS Status of ROS 10 or more systems reviewed and unremark able except as noted in history and below Constitutional Denies: fever or chills PFSH PFSH Medical History (Updated 01/01/24 @ 17:33 by Bernabe Fuentes MD) Carotid arterial disease ?I77.9 - Disorder of arteries and arterioles, unspecified (ICD-10) Hyperlipidemia ?E78.5 - Hyperlipidemia, unspecified (ICD-10) Hypertension ?I10 - Essential (primary) hypertension (ICD-10) Dementia ?F03.90 - Unspecified dementia, unspecified severity, without behavioral disturbance, psychotic disturbance, mood disturbance, and anxiety (ICD-10) Surgical History H/O hernia repair ?Z98.890 - Other specified postprocedural states (ICD-10) ?Z87.19 - Personal history of other diseases of the digestive system (ICD-10) Hx of tonsillectomy ?Z90.89 - Acquired absence of other organs (ICD-10) Family History Father Family history of stroke Family history of diabetes mellitus Family history of hypertension Social History Within the past year, how often did you have a drink containing alcohol: never Score interpretation: A score less than 4 is consistent with normal alcohol consumption. Smoking status: Never smoker Non-prescribed substance use: denies use Previous occupational history: retired Highest level of school completed/degree received: high school graduate Are you now , , , , never or living with a partner: In a typical week, how many times do you talk on the telephone with family, friends, or neighbors: 3 or more times per week How often do you get together with friends or relatives: 3 or more times per week How often do you attend buddhist or mu-ism services: 4 or more times per year Do you belong to any clubs or organizations such as buddhist groups unions, [employer] or athletic groups, or school groups: no Total score: 3 Score interpretation: A score of greater than or equal to 2 indicates the lowest level of social isolation. Little interest or pleasure in doing things: not at all Feeling down, depressed, or hopeless: not at all Feel stressed/tense/nervous/anxious/difficulty sleeping: not at all Gender Identity: male Meds Home Medications and Allergies Home Medications ?Medication ?Instructions ?Recorded ?Confirmed ?Type aspirin 81 mg tablet,delayed 81 mg PO DAILY 10/30/23 01/01/24 History release donepezil 10 mg tablet 10 mg PO .q 10/30/23 01/01/24 History fluoxetine 20 mg capsule 20 mg PO M 10/30/23 01/01/24 History losartan 25 mg tablet 25 mg PO .q 10/30/23 01/01/24 History melatonin 10 mg tablet 10 mg PO DAILY 10/30/23 01/01/24 History quetiapine 25 mg tablet 25 mg PO [facility] 10/30/23 01/01/24 History quetiapine 50 mg tablet 100 mg PO .q 10/30/23 01/01/24 History simvastatin 40 mg tablet 40 mg PO .q 10/30/23 01/01/24 History tamsulosin 0.4 mg capsule 0.4 mg PO .q 10/30/23 01/01/24 History levothyroxine 50 mcg tablet 50 mcg PO DAILY #30 tabs 10/31/23 01/01/24 Rx Allergies Allergy/AdvReac Type Severity Reaction Status Date / Time NSAIDS (Non-Steroidal Allergy Mild Headache Verified 10/30/23 14:47 Anti-Inflamma Exam Constitutional Vital Signs, click to edit/add: Last Vital Signs Temp 97.8 F 01/01/24 19:18 Pulse 72 01/02/24 04:00 Resp 18 01/02/24 04:00 BP 126/72 01/02/24 04:00 Pulse Ox 98 01/02/24 04:00 O2 Del Method Room Air 01/01/24 19:18 Documenting provider has reviewed patient's vital signs: yes Common normals: no apparent distress Chest Common normals: inspection of chest normal Respiratory Common normals: normal respiratory effort and no retractions Cardio Common normals: no JVD, regular rate and regular rhythm GI Common normals: Normal to inspection, nondistended, normoactive bowel sounds present, soft to palpation and non-tender Extremity Common normals: normal to inspection, normal capillary refill and no clubbing, cyanosis or edema Results Labs Labs: Short CBC 01/01/24 01/02/24 Range/Units 13:09 06:22 WBC 9.7 7.9 (4.0-11.0) 10^3/uL Hgb 9.4 L 9.8 L (14.0-18.0) g/dL Hct 28.2 L 29.6 L (42.0-54.0) % Plt Count 167 177 (150-450) 10^3/uL BMP 01/01/24 01/02/24 13:05 06:22 Sodium 139 144 Potassium 4.0 3.9 Chloride 104 109 H Carbon Dioxide 27.8 26.9 BUN 15.0 12.0 Creatinine 1.05 0.94 Glucose 113 H 102 Calcium 8.3 L 8.5 Urine 01/01/24 Range/Units 13:05 Urine Color Dk. red (YELLOW) Urine Clarity Turbid A (CLEAR) Urine pH Color interference A (5.0-9.0) Ur Specific [place] 1.010 (1.005-1.025) Urine Protein Color interference A (NEG/TRACE) mg/dL Urine Glucose (UA) Color interference A (NEGATIVE) mg/dL Assessment and Plan Assessment and Plan (1) Hematuria: (2) Hypothyroidism (acquired): (3) Carotid arterial disease: Qualifiers: Carotid artery disease type: stenosis Laterality: bilateral Qualified Code(s): I65.23 - Occlusion and stenosis of bilateral carotid arteries Plan Admission findings: Uncontrolled hypertension, acute anemia for 3 g blood loss, this is secondary to acute hematuria, likely bladder related and possibly prostate related secondary to difficulty placing a Valero catheter 3 days ago. With a drop in hemoglobin, he was admitted to the hospital for workup and treatment of same. Consult to urology Acute hematuria secondary to Valero catheter placement in a patient with known BPH-will start patient on continuous bladder irrigation after three-way catheter is placed, plan per urology. Check urine culture. Check PT PTT Acute anemia secondary to hematuria-Down 3 g, monitor daily Carotid occlusive disease-status post 3 days ago carotid endarterectomy-plan is okay to stop with Plavix for now. This is per vascular surgery Dementia with depression-continue with home medications Hypothyroidism-continue with home medications Hypertension-continue with home medications Hypercholesterolemia-continue with home medications Admission status: Patient initially placed in observation, will change patient to inpatient status, medically necessary treatment will span 2 midnights. Urinary Catheter Management Urinary Catheter Management Urethral: Cath placed during this visit: yes Urethral indwelling: Yes Reason for continuing: urinary obstruction Insertion date: 12/31/23
[2024-01-02] MEDS: LACTATED RINGER'S SOLUTION 1,000 ML 50 ML IV (09:52)
[2024-01-02] MEDS: MORPHINE SULFATE 4 MG/ML VIAL IV (09:53)
[2024-01-02] MEDS: FLUOXETINE HCL 20 MG CAPSULE PO (09:56)
[2024-01-02] MEDS: HYOSCYAMINE SULFATE 0.125 MG TAB.SUBL 0.25 MG SL ×4 (09:56→21:22)
[2024-01-02] MEDS: QUETIAPINE FUMARATE 25 MG TABLET PO (09:57)
--- NOTE | 2024-01-02 12:31 | PC.NURSE ---
3 way irrigation clotted. Balloon deflated and manual irrigation attempted. Valero falls out while patient pushing to urinated. #[address]ed using sterile technique. Irrigated manually numerous times with mod amount clots. Patient very restless and agitated. at side
[2024-01-02] MEDS: OXYBUTYNIN chloride 5 MG TABLET 10 MG PO (13:30)
--- NOTE | 2024-01-02 14:37 | PM.PN ---
Progress Note: Subjective Subjective Interval history: Pt w/ recent carotid aa surgery shafer about 5 days ago; states traumatic ferris in OR and has been bleeding since. Nurse placed 18fr/3w overnight but continues to clot Exam Narrative Exam Narrative: abd---s/nt/nd; ferris dark red removed Constitutional Vital Signs, click to edit/add: Last Vital Signs Temp 98.2 F 01/02/24 12:00 Pulse 72 01/02/24 04:00 Resp 18 01/02/24 04:00 BP 126/72 01/02/24 04:00 Pulse Ox 90 L 01/02/24 11:27 O2 Del Method Room Air 01/02/24 11:27 Progress Note: Objective Labs Labs: Short CBC 01/01/24 01/02/24 Range/Units 13:09 06:22 WBC 9.7 7.9 (4.0-11.0) 10^3/uL Hgb 9.4 L 9.8 L (14.0-18.0) g/dL Hct 28.2 L 29.6 L (42.0-54.0) % Plt Count 167 177 (150-450) 10^3/uL BMP 01/01/24 01/02/24 13:05 06:22 Sodium 139 144 Potassium 4.0 3.9 Chloride 104 109 H Carbon Dioxide 27.8 26.9 BUN 15.0 12.0 Creatinine 1.05 0.94 Glucose 113 H 102 Calcium 8.3 L 8.5 Urine 01/01/24 Range/Units 13:05 Urine Color Dk. red (YELLOW) Urine Clarity Turbid A (CLEAR) Urine pH Color interference A (5.0-9.0) Ur Specific [place] 1.010 (1.005-1.025) Urine Protein Color interference A (NEG/TRACE) mg/dL Urine Glucose (UA) Color interference A (NEGATIVE) mg/dL Progress Note: A&P Assessment and Plan (1) Hematuria: Assessment and Plan: I removed 18fr ferris and replaced w/ 24fr/3w hematuria quality catheter---hand irrigated w/ approx 500ml and removed mod clots; 20cc in balloon WILL MAKE NPO P MN IN CASE CONTINUES TO CLOT---IF SO MAY NEED CLOT EVAC/FULGURATION UNDER GETA TOMORROW HOLD ALL ASA/PLAVIX/ASA CONTINUE CBI AND HAND IRRIGATE NEEDED. (2) Hypothyroidism (acquired): (3) Carotid arterial disease: Qualifiers: Carotid artery disease type: stenosis Laterality: bilateral Qualified Code(s): I65.23 - Occlusion and stenosis of bilateral carotid arteries Urinary Catheter Management Urinary Catheter Management Urethral: Cath placed during this visit: yes Urethral indwelling: Yes Reason for continuing: continue criteria not met Insertion date: 01/02/24 Insertion time: 10:05
[2024-01-02] MEDS: ZIPRASIDONE MESYLATE 20 MG VIAL IM ×2 (14:47→21:22)
[2024-01-02 17:28] LABS: Hematocrit 29.9 % (42.0-54.0); Hemoglobin 10.1 g/dL (14.0-18.0); Mean Corpuscular HGB Conc 33.8 g/dL (29.9-35.2); Mean Corpuscular Hemoglobin 32.5 pg (25.9-34.0); Mean Corpuscular Volume 96.1 fL (80.0-94.0); Mean Platelet Volume 9.9 fL (9.5-13.5); Platelet Count 196 10^3/uL (150-450); Red Blood Count 3.11 10^6/uL (4.70-6.10); Red Cell Distribution Width 13.2 % (11.0-15.0); White Blood Count 9.9 10^3/uL (4.0-11.0)
[2024-01-02] MEDS: TAMSULOSIN HCL 0.4 MG CAPSULE PO (21:22)
[2024-01-02] MEDS: ATORVASTATIN CALCIUM 20 MG TABLET PO (21:22)
[2024-01-02] MEDS: DONEPEZIL HCL 10 MG TABLET PO (21:22)
[2024-01-02] MEDS: LOSARTAN POTASSIUM 25 MG TABLET PO (21:22)
[2024-01-02] MEDS: QUETIAPINE FUMARATE 100 MG TABLET PO (21:22)
[2024-01-02] MEDS: WATER FOR INJECTION, STERILE 20 ML VIAL INJ (21:23)
[2024-01-03] VITALS (8 sets, daily range): BP systolic 124–146; BP diastolic 61–72; PULSE 68–92; TEMP 36.7–37; O2SAT 92–99
[2024-01-03] MEDS: TRAZODONE HCL 50 MG TABLET PO (01:41)
[2024-01-03] MEDS: SODIUM CHLORIDE IRRIG SOLUTION 3,000 ML 3000 ML IRR ×8 (02:00→23:44)
[2024-01-03] MEDS: LACTATED RINGER'S SOLUTION 1,000 ML 50 ML IV (06:04)
[2024-01-03 08:14] LABS: Anion Gap 9.2; BUN Creatinine Ratio 7.6; Calcium 8.7 mg/dL (8.5-10.1); Carbon Dioxide 29.4 mmol/L (21.0-32.0); Chloride 106 mmol/L (98-107); Estimated GFR (African America >60 (>=60); Estimated GFR (Non-African Ame >60 (>=60); Glucose 121 mg/dL (74-106); Potassium 3.6 mmol/L (3.5-5.1); Sodium 141 mmol/L (136-145)
[2024-01-03 08:16] LABS: Basophils Percent Auto 0.3 % (0.2-2.0); Eosinophils Absolute Auto 0.1 10^3/uL (0.0-0.7); Eosinophils Percent Auto 1.4 % (0.9-7.0); Hematocrit 30.7 % (42.0-54.0); Hemoglobin 10.3 g/dL (14.0-18.0); Immature Granulocytes Abs Auto 0.03 10^3/uL (0.00-0.03); Immature Granulocytes Pct Auto 0.3 % (0.0-0.5); Lymphocytes Absolute Auto 1.3 10^3/uL (1.2-3.8); Lymphocytes Percent Auto 12.3 % (20.5-60.0); Mean Corpuscular HGB Conc 33.6 g/dL (29.9-35.2); Mean Corpuscular Hemoglobin 32.4 pg (25.9-34.0); Mean Corpuscular Volume 96.5 fL (80.0-94.0); Mean Platelet Volume 10.1 fL (9.5-13.5); Monocytes Absolute Auto 1.3 10^3/uL (0.3-0.8); Monocytes Percent Auto 12.2 % (1.7-12.0); Neutrophils Absolute Auto 7.6 10^3/uL (1.4-6.5); Neutrophils Percent Auto 73.5 % (43.0-75.0); Platelet Count 185 10^3/uL (150-450); Red Blood Count 3.18 10^6/uL (4.70-6.10); Red Cell Distribution Width 13.2 % (11.0-15.0); White Blood Count 10.3 10^3/uL (4.0-11.0)
[2024-01-03] MEDS: OXYBUTYNIN chloride 5 MG TABLET 10 MG PO (11:13)
[2024-01-03] MEDS: FLUOXETINE HCL 20 MG CAPSULE PO (11:14)
[2024-01-03] MEDS: HYOSCYAMINE SULFATE 0.125 MG TAB.SUBL 0.25 MG SL ×3 (11:14→21:10)
[2024-01-03] MEDS: QUETIAPINE FUMARATE 25 MG TABLET PO (11:14)
--- NOTE | 2024-01-03 12:20 | PC.NURSE ---
Transferred to [place]. Report given to Anastasiia PERRY. Belongings with patient. Family aware of transfer
--- NOTE | 2024-01-03 15:44 | P.IMPN_ITS ---
Progress Note: A&P Assessment and Plan (1) Hematuria: Assessment and Plan: likely due to traumatic ferris catheter insertion. On CBI. ASA, plavix on hold. Awaiting urology eval. Monitor H&H Qualifiers: Hematuria type: gross Qualified Code(s): R31.0 - Gross hematuria (2) Hypothyroidism (acquired): Assessment and Plan: on levothyroxine. C/w same (3) Carotid arterial disease: Assessment and Plan: recent CEA. ASA, Plavix on hold due to gross hematuria. Monitor closely Qualifiers: Carotid artery disease type: stenosis Laterality: bilateral Qualified Code(s): I65.23 - Occlusion and stenosis of bilateral carotid arteries (4) Hypertension: Assessment and Plan: BP stable. C/w home medications Qualifiers: Hypertension type: primary hypertension Qualified Code(s): I10 - Essential (primary) hypertension (5) Dementia: Assessment and Plan: Stable. C/w home meds. Qualifiers: Dementia type: Alzheimer's Alzheimer's disease onset: unspecified onset Dementia severity: mild Dementia behavioral or psychological symptom: with agitation Qualified Code(s): G30.9 - Alzheimer's disease, unspecified; F02.A11 - Dementia in other diseases classified elsewhere, mild, with agitation (6) Hyperlipidemia: Assessment and Plan: C/w statin Qualifiers: Hyperlipidemia type: unspecified Qualified Code(s): E78.5 - Hyperlipidemia, unspecified Internal Medicine - PN: Subj Subjective Interval history: Seen and examined. Doing well. No overnight events. Tolerating CBI. No evidence of blood clots or active bleeding. Awaiting urology eval today Exam Constitutional Vital Signs, click to edit/add: Last Vital Signs Temp 98.1 F 01/03/24 12:45 Pulse 70 01/03/24 12:45 Resp 16 01/03/24 12:45 BP 131/67 01/03/24 12:45 Pulse Ox 92 L 01/03/24 12:45 O2 Del Method Room Air 01/03/24 11:15 Documenting provider has reviewed patient's vital signs: yes Common normals: no apparent distress and oriented x3 General appearance: cooperative Respiratory Common normals: normal respiratory effort and clear to auscultation bilaterally Effort & inspection: able to speak in complete sentences Auscultation: clear to auscultation bilaterally Cardio Common normals: regular rate, S1 normal heart sound and S2 normal heart sound Rate: regular rate Heart sounds: S1 normal and S2 normal GI Common normals: Normal to inspection, nondistended, normoactive bowel sounds present, soft to palpation, non-tender and no hepatosplenomegaly Palpation: soft and no hepatosplenomegaly Other: CBI in place, pink colored urine. Neuro Common normals: oriented x3, moves all extremities and no focal motor deficits Psych Common normals: mental status grossly normal, denies hallucinations, denies homicidal ideation and denies suicidal ideation Internal Medicine - PN: Obj Da Labs Labs: Laboratory Results - last 24 hr 01/02/24 01/03/24 01/03/24 17:08 06:35 08:07 WBC 9.9 10.3 RBC 3.11 L 3.18 L Hgb 10.1 L 10.3 L Hct 29.9 L 30.7 L MCV 96.1 H 96.5 H MCH 32.5 32.4 MCHC 33.8 33.6 RDW 13.2 13.2 Plt Count 196 185 MPV 9.9 10.1 Neut % (Auto) 73.5 Lymph % (Auto) 12.3 L [place] % (Auto) 12.2 H Eos % (Auto) 1.4 Baso % (Auto) 0.3 Neut # (Auto) 7.6 H Lymph # (Auto) 1.3 [place] # (Auto) 1.3 H Eos # (Auto) 0.1 Baso # (Auto) 0.0 Abs Immat Gran (auto) 0.03 Imm/Tot Granulo (auto) 0.3 Sodium 141 Potassium 3.6 Chloride 106 Carbon Dioxide 29.4 Anion Gap 9.2 BUN 7.0 Creatinine 0.92 Est GFR ( Amer) >60 Est GFR (Non-Af Amer) >60 BUN/Creatinine Ratio 7.6 Glucose 121 H Calcium 8.7 Urinary Catheter Management Urinary Catheter Management Urethral: Cath placed during this visit: yes Urethral indwelling: Yes Reason for continuing: other continuation reason (hematuria, has CBI in place) Insertion date: 01/02/24 Insertion time: 10:05
--- NOTE | 2024-01-03 16:03 | PC.NURSE ---
hospitalist contacted RN for plan from urology. Urology was paged and returned phone call, plan is to continue the CBI through [facility]. Chun will report off to the local Urologist, but the plan will probably be to DC the CBI as long as he remains clear and free from clots. Dr Andrews updated on plan and agreeable. Urologist informed RN that due to him being remote he is not able to put a progress note into our system.
[2024-01-03] MEDS: ATORVASTATIN CALCIUM 20 MG TABLET PO (21:10)
[2024-01-03] MEDS: DONEPEZIL HCL 10 MG TABLET PO (21:11)
[2024-01-03] MEDS: TAMSULOSIN HCL 0.4 MG CAPSULE PO (21:11)
[2024-01-03] MEDS: LOSARTAN POTASSIUM 25 MG TABLET PO (21:11)
[2024-01-03] MEDS: QUETIAPINE FUMARATE 100 MG TABLET PO (21:11)
[2024-01-04] VITALS: BP 150/57; PULSE 85; TEMP 36.9; O2SAT 94
[2024-01-04 04:00] VITALS: BP 126/61; PULSE 78; TEMP 36.8; O2SAT 95
[2024-01-04] MEDS: SODIUM CHLORIDE IRRIG SOLUTION 3,000 ML 3000 ML IRR ×2 (04:17→04:18)
[2024-01-04] MEDS: LEVOTHYROXINE SODIUM 25 MCG TABLET 50 MCG PO (06:05)
[2024-01-04] MEDS: HYOSCYAMINE SULFATE 0.125 MG TAB.SUBL 0.25 MG SL ×2 (06:05→12:17)
[2024-01-04 06:12] LABS: Basophils Percent Auto 0.4 % (0.2-2.0); Eosinophils Absolute Auto 0.2 10^3/uL (0.0-0.7); Eosinophils Percent Auto 2.2 % (0.9-7.0); Hematocrit 28.6 % (42.0-54.0); Hemoglobin 9.8 g/dL (14.0-18.0); Immature Granulocytes Abs Auto 0.04 10^3/uL (0.00-0.03); Immature Granulocytes Pct Auto 0.4 % (0.0-0.5); Lymphocytes Absolute Auto 1.6 10^3/uL (1.2-3.8); Lymphocytes Percent Auto 15.1 % (20.5-60.0); Mean Corpuscular HGB Conc 34.3 g/dL (29.9-35.2); Mean Corpuscular Hemoglobin 32.6 pg (25.9-34.0); Mean Platelet Volume 9.6 fL (9.5-13.5); Monocytes Absolute Auto 1.3 10^3/uL (0.3-0.8); Monocytes Percent Auto 11.9 % (1.7-12.0); Neutrophils Absolute Auto 7.4 10^3/uL (1.4-6.5); Platelet Count 205 10^3/uL (150-450); Red Blood Count 3.01 10^6/uL (4.70-6.10); White Blood Count 10.6 10^3/uL (4.0-11.0)
[2024-01-04 06:31] LABS: Anion Gap 12.7; BUN Creatinine Ratio 9.9; Calcium 8.8 mg/dL (8.5-10.1); Carbon Dioxide 25.9 mmol/L (21.0-32.0); Chloride 104 mmol/L (98-107); Estimated GFR (African America >60 (>=60); Estimated GFR (Non-African Ame >60 (>=60); Glucose 112 mg/dL (74-106); Potassium 3.6 mmol/L (3.5-5.1); Sodium 139 mmol/L (136-145)
[2024-01-04 07:49] VITALS: BP 126/61; BP 146/85; PULSE 80; TEMP 36.9; O2SAT 95
[2024-01-04] MEDS: FLUOXETINE HCL 20 MG CAPSULE PO (08:44)
[2024-01-04] MEDS: OXYBUTYNIN chloride 5 MG TABLET 10 MG PO (08:44)
[2024-01-04] MEDS: QUETIAPINE FUMARATE 25 MG TABLET PO (08:44)
--- NOTE | 2024-01-04 09:58 | PC.NURSE ---
pt cbi clamped at this time per physician order
--- NOTE | 2024-01-04 10:18 | SWNOTE1 ---
SW met with pt and pt's in room. Pt lives at home with his . He does not use any DME at home. 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 Pt's does not anticipate any discharge needs at this time, SW to follow as needed. Important Message from Medicare reviewed and discussed with patient. Pt. verbalized understanding and signed the form. Original given to patient and copy placed in patient?s chart.
--- NOTE | 2024-01-04 10:27 | CM.NOTE ---
Rounds made with Dr. Andrews. Dr. Andrews to speak with Urologist to determine plan of care with ferris/CBI. Mr. Penn voices understanding.
[2024-01-04 11:17] VITALS: BP 132/66; PULSE 80; TEMP 37.1; O2SAT 96
[2024-01-04 12:03] VITALS: O2SAT 96
[2024-01-04 15:04] VITALS: BP 142/72; PULSE 92; TEMP 36.9; O2SAT 97
--- NOTE | 2024-01-04 15:24 | PM.DS1 ---
DS: Providers Provider Date of admission: 01/02/24 10:15 Primary care physician: Gini Burleson NP Admitting clinician: Sanket Daniels Attending physician on admission: Sanket Daniels Consults: 01/02/24 07:00 Consult to Urology Routine Consulting Provider: Charles Kim Reason for consultation: Gross hematuria Has provider been notified: Yes Attending physician on discharge: Shaikh Darryl Discharging clinician: Shaikh Darryl Anticipated date of discharge: 01/04/24 DS: Diagnosis Discharge Diagnosis (1) Hematuria: Assessment and plan: resolved with CBI. Outpatient f/u with Urology Qualifiers: Hematuria type: gross Qualified Code(s): R31.0 - Gross hematuria (2) Hypothyroidism (acquired): Assessment and plan: C/w levothyroxine (3) Carotid arterial disease: Assessment and plan: Recent CEA. Can resume ASA, plavix for it. F/u with vascular surgery. Qualifiers: Carotid artery disease type: stenosis Laterality: bilateral Qualified Code(s): I65.23 - Occlusion and stenosis of bilateral carotid arteries (4) Hypertension: Assessment and plan: C/w home medications Qualifiers: Hypertension type: primary hypertension Qualified Code(s): I10 - Essential (primary) hypertension (5) Dementia: Assessment and plan: Stable. Outpatient f/ui Qualifiers: Dementia type: Alzheimer's Alzheimer's disease onset: unspecified onset Dementia severity: mild Dementia behavioral or psychological symptom: with agitation Qualified Code(s): G30.9 - Alzheimer's disease, unspecified; F02.A11 - Dementia in other diseases classified elsewhere, mild, with agitation (6) Hyperlipidemia: Assessment and plan: Cw statin Qualifiers: Hyperlipidemia type: unspecified Qualified Code(s): E78.5 - Hyperlipidemia, unspecified DS: Summary Hospital Course Hospital Course: 78 y o presented with gross hematuria after recent traumatic ferris insertion while on ASA, plavix. He was seen by Urology and placed on CBI. Urology also had to remove blood clots to help manage his bladder outlet obstruction. Patient remained on CBI with his urine becoming increasingly clear. His Hb remained stable. Earlier today, urology recommended stopping CBI and monitor for 4 hours before removing the catheter. He did well w/o CBI and was able to urinate after catheter removal. Patient is stable for discharge and will need to follow up with Urology as outpatient Time Spent with Patient Time attestation: Total time spent providing and/or coordinating discharge services: Exam Constitutional Vital Signs, click to edit/add: Last Vital Signs Temp 98.4 F 01/04/24 15:04 Pulse 92 H 01/04/24 15:04 Resp 18 01/04/24 15:04 BP 142/72 H 01/04/24 15:04 Pulse Ox 97 01/04/24 15:04 O2 Del Method Room Air 01/04/24 15:04 Documenting provider has reviewed patient's vital signs: yes Common normals: no apparent distress and oriented x3 General appearance: cooperative Respiratory Common normals: normal respiratory effort and clear to auscultation bilaterally Effort & inspection: able to speak in complete sentences Auscultation: clear to auscultation bilaterally Cardio Common normals: regular rate, S1 normal heart sound and S2 normal heart sound Rate: regular rate Heart sounds: S1 normal and S2 normal GI Common normals: Normal to inspection, nondistended, normoactive bowel sounds present, soft to palpation, non-tender and no hepatosplenomegaly Palpation: soft and no hepatosplenomegaly Neuro Common normals: oriented x3, moves all extremities and no focal motor deficits Psych Common normals: mental status grossly normal, denies hallucinations, denies homicidal ideation and denies suicidal ideation DS: Data Data Completed and Pending Labs on day of discharge: Labs from last 24 hours 01/04/24 05:46 WBC 10.6 RBC 3.01 L Hgb 9.8 L Hct 28.6 L MCV 95.0 H MCH 32.6 MCHC 34.3 RDW 13.0 Plt Count 205 MPV 9.6 Neut % (Auto) 70.0 Lymph % (Auto) 15.1 L Floyd % (Auto) 11.9 Eos % (Auto) 2.2 Baso % (Auto) 0.4 Neut # (Auto) 7.4 H Lymph # (Auto) 1.6 Floyd # (Auto) 1.3 H Eos # (Auto) 0.2 Baso # (Auto) 0.0 Abs Immat Gran (auto) 0.04 H Imm/Tot Granulo (auto) 0.4 Sodium 139 Potassium 3.6 Chloride 104 Carbon Dioxide 25.9 Anion Gap 12.7 BUN 10.0 Creatinine 1.01 Est GFR ( Amer) >60 Est GFR (Non-Af Amer) >60 BUN/Creatinine Ratio 9.9 Glucose 112 H Calcium 8.8 Discharge Plan Discharge Disposition: Home, Self-Care Condition: Fair Discharge Medications: Continued donepezil 10 mg tablet 10 mg PO .qhs losartan 25 mg tablet 25 mg PO .qhs quetiapine 50 mg tablet 100 mg PO QAM simvastatin 40 mg tablet 40 mg PO .qhs tamsulosin 0.4 mg capsule 0.4 mg PO .qhs aspirin 81 mg tablet,delayed release (DR/EC) 81 mg PO DAILY melatonin 10 mg tablet 10 mg PO DAILY levothyroxine 50 mcg tablet 50 mcg PO DAILY Qty: 30 0RF quetiapine [Seroquel] 50 mg tablet 50 mg PO .qhs clopidogrel 75 mg tablet 75 mg PO DAILY fluoxetine 20 mg capsule 20 mg PO DAILY Activity: increase activity as tolerated Diet: advance to your usual diet Print Language: Citizen Of [place] Patient Instructions: Hematuria (GEN) Forms: Portal Instructions Follow Up Appointments: [facility] Feb 05 @ 8:30 & Jan 27 2024 @10:[address] Gracia and with [facility] Jan @11:00 in the [place] Office
--- NOTE | 2024-01-04 17:09 | NUTR.NU ---
Pt was admitted to [facility] 01/01/24 w/ dx hematuria, hypothyroidism; h/o dementia, CAD, HLD, HTN. Labs indicate anemia; encourage iron-rich foods such as red meat 3x weekly and dark green, leafy vegetables. Vitamin C enhances bioavailability. Continue to follow PRN.
--- NOTE | 2024-01-05 13:42 | CM.DCFOLLOWU ---
1st attempt 01/05/24
--- NOTE | 2024-01-06 15:24 | CM.DCFOLLOWU ---
2nd attempt 01/06/24
--- NOTE | 2024-01-07 13:45 | CM.DCFOLLOWU ---
3rd attempt 01/07/24
== END 2024-01-04 15:36 | disposition home or self-care (01) | DRG 699 ==
LOC: ER 17:33 → ICU 18:41 → MS 01-03 12:20
PROVIDERS: Family Medicine; Registered Nurse; Admitting Provider Internal Medicine; Emergency Provider Emergency Medicine; PCP Nurse Practitioner Primary Care; Visit Provider Internal Medicine
DX: T83.83XA Hemorrhage due to genitourinary prosthetic devices, implants and grafts, initial encounter (principal); D62 Acute posthemorrhagic anemia; F02.A11 Dementia in other diseases classified elsewhere, mild, with agitation; E03.9 Hypothyroidism, unspecified; I65.23 Occlusion and stenosis of bilateral carotid arteries; R31.0 Gross hematuria; G30.9 Alzheimer's disease, unspecified; I10 Essential (primary) hypertension; N40.0 Benign prostatic hyperplasia without lower urinary tract symptoms; E78.5 Hyperlipidemia, unspecified; F32.A Depression, unspecified; Z98.890 Other specified postprocedural states; Z79.02 Long term (current) use of antithrombotics/antiplatelets; Z79.82 Long term (current) use of aspirin; Z79.890 Hormone replacement therapy
CPT/HCPCS: 36415; 51702; 51798; 74177; 80048; 81001; 85025; 85027; 85610; 85730; 87086; 94761; 96372; 96374; 99285; G0378; J2270; J3486; Q9967

== ENCOUNTER 2024-01-12 09:51 | Outpatient (OUT) | payer MEDICARE, OTHER, SELFPAY ==
--- NOTE | 2024-01-12 09:59 | US_ITS ---
The [address] [address] Patient Name: FAITH OLIVIER MRN: [id number] date: 1945 Sex: M Assigned Patient Location: Current Patient Location: Accession/Order Number: [id number] Exam Date: 01/12/2024 10:20 Report Date: 01/13/2024 12:10 At the request of: REYES FRASER Procedure: US scrotum EXAMINATION: US scrotum HISTORY: Swollen Testicle ; left testicle swelling COMPARISON: No relevant comparison available. TECHNIQUE: High-resolution sonographic imaging of the scrotum and contents was performed. FINDINGS: RIGHT: TESTICLE: Homogeneous echotexture. No visible mass. Color Doppler flow is present. Spectral Doppler demonstrates normal arterial waveform and flow, 4/2 cm/s (PSV/EDV), and normal venous wave flow averaging 1 cm/s. EPIDIDYMIS: 7 mm cyst within head of epididymis. Otherwise normal size and echogenicity. OTHER: None. LEFT: TESTICLE: Homogeneous echotexture. No visible mass. Color Doppler flow is present. Spectral Doppler demonstrates arterial waveform and flow, 4/2 cm/s (PSV/EDV), and normal venous flow averaging 2 cm/s. EPIDIDYMIS: Enlarged, hypoechoic, and increased vascularity. OTHER: Large hydrocele. US/US scrotum IMPRESSION: 1. Findings favor left scrotal acute epididymitis and reactive hydrocele. Electronically authenticated by: RAZA WEIR Date: 01/13/2024 12:10
== END 2024-01-12 09:52 | disposition home or self-care (01) ==
LOC: US 09:52
PROVIDERS: PCP Nurse Practitioner Primary Care; Visit Provider Nurse Practitioner Family
DX: N50.89 Other specified disorders of the male genital organs (principal)
CPT/HCPCS: 76870

== ENCOUNTER 2024-01-19 14:57 | Outpatient (OUT) | payer MEDICARE, OTHER, SELFPAY ==
--- NOTE | 2024-01-19 15:10 | US_ITS ---
The [address] [address] Patient Name: FAITH OLIVIER MRN: [id number] date: 1945 Sex: M Assigned Patient Location: [place] Current Patient Location: [place] Accession/Order Number: [id number] Exam Date: 01/19/2024 15:12 Report Date: 01/20/2024 10:33 At the request of: CARLOS MANUEL MONTEIRO Procedure: US carotid duplex BI DUPLEX ULTRASOUND EXAMINATION OF THE CAROTID ARTERIES. COMPARISON: 10/31/2023. HISTORY / INDICATIONS: History of endarterectomy. TECHNIQUE: Bilateral common carotid arteries, extracranial internal and external carotid arteries are evaluated with balderrama-scale imaging, color Doppler, and spectral analysis according to a standard protocol. ICA/CCA ratios are calculated with insurance healthcare representative peak-systolic velocities and recorded. Vertebral arteries are evaluated in one segment to evaluate for patency and character of flow. Comparison with previous evaluation is performed when available. Unless otherwise specified, all velocities are measured in cm/sec. Carotid stenosis is reported according to validated velocity parameters, similar to NASCET criteria. FINDINGS: Right Carotid: Plaque was noted. Velocity measurements as follows: Internal Carotid Artery 75/13, 82/17, and 78/19. ICA/CCA ratio: 1.5. Left Carotid: Plaque was noted. Velocity measurements as follows: Internal Carotid Artery 108/21, 88/21, and 72/19. ICA/CCA ratio: 1.1. Antegrade flow was seen in both vertebral arteries. CONCLUSION: 1. Less than 50% stenosis of the right ICA. 2. Less than 50% stenosis of the left ICA. 3. Vertebral arteries are patent and demonstrate antegrade flow. Electronically authenticated by: Kike ROMERO Date: 01/20/2024 10:33
--- OUTSIDE RECORDS SUMMARY | 2024-01-19 15:10 | XMS_ITS | CCD ---
Author Organization [facility] Care Team Providers Care Master Dyer Name Role Phone Candace Burleson Primary Care Provider UNKNOWN, PHYSICIAN Referring Unavailable CANDACE BURLESON Primary Care Unavailable KENYATTA MORA Attending Unavailable KENYATTA MORA Admitting Unavailable Bree FIREARMS INSTRUCTOR - [employer], Candace Medina Primary Care Provider CANDACE BURLESON Primary Care Physician Bree [facility] Provider Bree FIREARMS INSTRUCTORAlexandra Medina Primary Care Provider MD Christiano Baer Attending Provider [phone] LEÓN, DR AGUERO Admitting Unavailable ELTAHAWAyad, DR AGUERO Attending Unavailable [facility] [place], DR ATKINSON Consulting Unavailable LEÓN, DR AGUERO Consulting Unavailable PORTER Burleson Primary Care Provider DO Leonides Dyer Emergency Provider [phone] STELLA TSE Attending Unavailable Leonides Dyer Admitting Unavailable Candace Burleson Primary Care Unavailable Leonides Dyer Attending Unavailable CANDACE BURLESON Primary Care Unavailable CANDACE BURLESON Referring Unavailable MORE TRAORE Referring Unavailable BREE CANDACE M Primary Care Unavailable CANDACE BURLESON M Attending Unavailable CANDACE BURLESON M Primary Care Unavailable BREE CANDACE M Referring Unavailable BREE, CANDACE M Primary Care Unavailable BREE CANDACE M Referring Unavailable CANDACE BURLESON M Primary Care Unavailable CARLOS MANUEL GARCIA Admitting Unavailable CARLOS MANUEL GARCIA Attending Unavailable АННА BROWER Consulting Unavailable IRISH SCHRADER Consulting Unavailable JARETH FIGUEROA Attending Unavailable CANDACE BURLESON Primary Care Unavailable CARLOS MANUEL GARCIA Attending Unavailable CANDACE BURLESON Primary Care Unavailable Makayla Corona Attending Unavailable CANDACE BURLESON Primary Care Unavailable Makayla Corona Attending Unavailable CANDACE BURLESON Primary Care Unavailable Chintan CHAVEZ Attending Unavailable Charles Kim Attending Unavailable Charles Kim Referring Unavailable CANDACE BURLESON Primary Care Unavailable Humaira Ragsdale Attending Unavailable CANDACE BURLESON Primary Care Unavailable Allergies Allergy Classification Reported Allergen(s) Allergy Type Date of Onset Reaction(s) Facility NSAIDs (2 sources) Ibuprofen Drug Allergy 4 [facility] (9 sources) NSAIDs Propensity to adverse reactions to drug 4 [place], [place] (5 sources) Shellfish-Derive d Products Propensity to adverse reactions to drug 8 [place], [place] (16 sources) Ibuprofen; Translations: [ibuprofen] Drug Allergy 1 HYPERTENSION [facility] (4 sources) Memantine; Translations: [MEMANTINE] Drug Allergy 4 [facility] (3 sources) NSAIDs; Translations: [NSAIDS (NON-STEROIDAL ANTI-INFLAMMATOR Y DRUG)] Propensity to adverse reactions to drug (disorder) 4 [facility] (1 source) Ibuprofen Drug Allergy 2 [facility] Medications Current Medications Medication Drug Class(es) Dates Sig (Normalized) Sig (Original) aspirin 81 mg delayed release oral tablet (18 sources) Platelet Aggregation Inhibitor, Nonsteroidal Anti-inflammatory Drug Start: 03-07-2020 take 1 tablet by mouth once daily aspirin 81 mg Oral EC Tab 81 mg = 1 tab(s), Oral, Daily, Refills(s) 0 Start Date: 01/13/22 Status: Ordered take 1 tablet by mouth once reid y aspirin 81 MG tablet Indications: Diarrhea Take 81 mg by mouth daily. 0 Active clopidogrel 75 mg oral tablet (2 sources) P2Y12 Platelet Inhibitor Start: 12-31-2023 clopidogrel 75 mg Tab Refills(s) 0 Start Date: 12/31/23 Status: Ordered donepezil hydrochloride 5 mg oral tablet (4 sources) Start: 12-31-2023 take 1 tablet by [...] Memory loss 30 tablet 1 02/05/2021 Active doxycycline hyclate 100 mg oral capsule (1 source) Tetracycline-class Drug Start: 01-11-2024 End: 01-25-2024 take 1 capsule by mouth twice daily doxycycline hyclate 100 mg Cap 100 mg = 1 cap(s), Oral, BID, X 14 day(s), # 28 cap(s), Refills(s) 0, Pharmacy: [id number], 185, cm, 01/11/24 11:29:00 EDT, Height/Length Dosing, 84, kg, 01/11/24 11:29:00 EDT, Weight Dosing Start Date: 01/11/24 Stop Date: 01/25/24 Status: Ordered FLUoxetine 20 mg oral capsule (9 sources) Serotonin Reuptake Inhibitor Start: 03-18-2022 take 1 capsule by mouth once daily FLUoxetine 20 mg Cap TAKE 1 CAPSULE BY MOUTH DAILY Start Date: 09/22/22 Status: Ordered Start: 01-13-2022 take 1 capsule by mo [facility] in the morning FLUoxetine (PROZAC) 10 MG capsule Take 1 capsule by mouth in the morning. 90 capsule 1 01/13/2022 Active Start: 11-11-2021 take 1 capsule by mo uth once daily FLUoxetine (PROZAC) 10 MG capsule Take 1 capsule by mouth daily 30 capsule 1 11/11/2021 Active Levsin (2 sources) Start: 12-31-2023 Levsin Refills(s) 0 Start Date: 12/31/23 Status: Ordered levothyroxine sodium 0.05 mg oral tablet (2 sources) l-Thyroxine Start: 12-31-2023 levothyroxine 50 mcg (0.05 [...] Active losartan potassium 25 mg oral tablet (3 sources) Angiotensin 2 Receptor Jenifer Start: 09-22-2022 [...] 2023 12:00am sildenafil 100 mg oral tablet (18 sources) Phosphodiesterase 5 Inhibitor Start: 01-07-2023 take 1 tablet by mouth once daily as needed sildenafil 100 mg Tab 100 mg = 1 tab(s), Oral, Daily, PRN for erectile dysfunction, 1 hour before sexual activity, # 20 tab(s), Refills(s) 3, Pharmacy: [facility] #[id number], 185, cm, 01/07/23 10:35:00 EDT, Height/Length [...] 05/15/2016 Active simvastatin 40 mg oral tablet (18 sources) HMG-CoA Reductase Inhibitor Start: 08-06-2020 take [...] Active tamsulosin hydrochloride 0.4 mg oral capsule (14 sources) alpha-Adrenergic Jenifer Start: 03-07-2020 take 1 capsule by mouth once daily Flomax 0.4 mg Cap 0.4 mg = 1 cap(s), Oral, Daily, # 90 cap(s), Refills(s) 3, Pharmacy: [id number], 185, cm, 01/07/23 10:35:00 EDT, Height/Length Dosing, [...] every four to six hours Hydrocodone-Acetam inophen ([place]) 5-325 mg tablet Discontinued 1 - 2 [...] Onset: 12-01-2023 Episodic Disorders of lipid metabolism (20 sources) Pure hypercholesterolemi a; Translations: [Hyperlipidemia] Onset: 11-11-2012 11-11-2012 Chronic E Codes: Fall (2 sources) Fall; Translations: [Unspecified fall, initial encounter] Episodic Essential hypertension (20 sources) Essential hypertension; Translations: [Hypertensive disorder] Onset: 11-11-2012 11-11-2012 Chronic Genitourinary symptoms and ill-defined conditions (15 sources) Shivam hematuria; Translations: [Nocturia] 01-05-2019 Episodic Headache; including migraine (1 source) Headache; including migraine; Translations: [Headache, unspecified] Onset: 06-06-2023 Heart valve disorders (1 source) Rheumatic disorders of both mitral and aortic valves; Translations: [Rheumatic disorders of both mitral and aortic valves] Onset: 12-02-2023 Chronic Hyperplasia of prostate (10 sources) Benign prostatic hypertrophy with outflow obstruction; Translations: [Benign prostatic hyperplasia with lower urinary tract symptoms] Onset: 01-13-2022 Chronic Miscellaneous mental health disorders (4 sources) Male erectile disorder; Translations: [Erectile dysfunction] Onset: 01-13-2022 Chronic Nutritional deficiencies (1 source) Vitamin D deficiency, unspecified; Translations: [Vitamin D deficiency, unspecified] Onset: 04-27-2023 Chronic Occlusion or stenosis of precerebral arteries (3 sources) Bilateral stenosis of carotid arteries; Translations: [Occlusion and stenosis of bilateral carotid arteries] Onset: 12-29-2023 Chronic Osteoarthritis (5 sources) Arthritis 01-05-2019 Chronic Other diseases of kidney and ureters (2 sources) Urinary tract obstruction; Translations: [Other obstructive and reflux uropathy] Onset: 01-13-2022 Episodic Other gastrointestinal disorders (2 sources) Stool DNA-based colorectal cancer screening positive; Translations: [Other fecal abnormalities] 04-15-2022 Episodic Other gastrointestinal disorders (1 source) Other fecal abnormalities; Translations: [Abnormal feces] 04-15-2022 Episodic Other male genital disorders (10 sources) Impotence 01-05-2019 Chronic Other male genital disorders (1 source) Disorder of male genital organ; Translations: [Other specified disorders of the male genital organs] Onset: 01-11-2024 Episodic Residual codes; unclassified (1 source) Poor short-term memory ; Translations: [Other amnesia] Episodic Residual codes; unclassified (1 source) Pain, unspecified; Translations: [Pain, unspecified] Onset: 10-31-2023 Episodic Residual codes; unclassified (1 source) Device in situ; Translations: [Presence of other specified devices] Onset: 01-11-2024 Episodic Screening and history of mental health and substance abuse codes (3 sources) Ex-smoker 01-07-2023 Episodic Spondylosis; intervertebral disc [...] status; Translations: [Screening for thyroid disorder] Unclassified (3 sources) Body mass index 20-24 - normal [...] Test Name Value Interpretation Reference Range Facility Ambulatory Visit Summaryon 0 01-11-2024 Ambulatory Visit Summary Ambulatory Visit Summary FAITH OLIVIER :1945 Visit Date:01/11/2024 Ambulatory Visit Instructions Your Diagnosis Swollen testicle BPH with obstruction/lower urinary tract symptoms Ferris catheter status Impotence Tests Performed US Scrotum (Contents) -- Results Pending -- Please visit your patient portal for your results or contact your primary care physician. Your Care Team Attending Physician - DHAVAL Ragsdale APRN, Humaira Ayon Primary Care Physician - CANDACE BURLESON CNP This Is Your Medications List Contact prescribing physician if questions or concerns aspirin (aspirin 81 mg Oral EC Tab) clopidogrel (clopidogrel 75 mg Tab) donepezil (donepezil 5 mg Tab) fluoxetine (FLUoxetine 20 mg Cap) hyoscyamine (Levsin) levothyroxine (levothyroxine 50 mcg (0.05 mg) Tab) losartan (losartan 25 mg Tab) sildenafil (sildenafil 100 mg Tab) simvastatin (simvastatin 40 mg Tab) tamsulosin (Flomax 0.4 mg Cap) Procedures Performed Carotid endarterectomy (12/29/2023), Artery procedure (06/08/2020), Transurethral water vapor ablation of prostate (09/02/2018), Cystoscopy (08/05/2018), Bursa, Colonoscopy, Tonsillectomy. Discharge Vitals Temperature (Temporal Artery) 36 ?C Heart Rate (Peripheral) 70 Blood Pressure 128/72 Height 185 cm Height 73 in Weight 84 kg Weight 184.8 lb BMI 24.54 What to do next Scheduled Follow-Up Appointments Thursday 10:30 AM EDT With: KATHY HILL, Chintan Mo Where: [facility] [address], [address] [place] [address]- You Need to Schedule the Following Appointments Follow Up with DHAVAL Ragsdale APRN, Humaira Ayon, ELIEZER, URL When: Comments: Pt to keep follow up on 01/27/24 w/Dr. Chavez Where: Medications What How Much When Instructions Unchanged aspirin (aspirin 81 mg Oral EC Tab) 1 Tablets By Mouth Every day Contact prescribing physician if questions or concerns Unchanged clopidogrel (clopidogrel 75 mg Tab) Contact prescribing physician if questions or concerns Unchanged donepezil (donepezil 5 mg Tab) TAKE 1 TABLET BY MOUTH EVERY DAY AT BEDTIME FOR 30 DAYS Contact prescribing physician if questions or concerns Unchanged fluoxetine (FLUoxetine 20 mg Cap) TAKE 1 CAPSULE BY MOUTH DAILY Contact prescribing physician if questions or concerns Unchanged hyoscyamine (Levsin) Contact prescribing physician if questions or concerns Unchanged levothyroxine (levothyroxine 50 mcg (0.05 mg) Tab) Contact prescribing physician if questions or concerns Unchanged losartan (losartan 25 mg Tab) 1 Tablets By Mouth Every day Contact prescribing physician if questions or concerns Unchanged sildenafil (sildenafil 100 mg Tab) 1 Tablets By Mouth Every day as needed for for erectile dysfunction 1 hour before sexual activity Contact prescribing physician if questions or concerns Unchanged simvastatin (simvastatin 40 mg Tab) Contact prescribing physician if questions or concerns Unchanged tamsulosin (Flomax 0.4 mg Cap) 1 Capsules By Mouth Every day Contact prescribing physician if questions or concerns Allergies ibuprofen (HYPERTENSION) Problems Ongoing - Any problem that you are currently receiving treatment for. BMI 24.0-24.9, adult BPH with obstruction/lower urinary tract symptoms Former smoker Gross hematuria Impotence Nocturia Weak urinary stream Historical - Any problem that you are no longer receiving treatment for. Arthritis Erectile dysfunction Hyperlipidemia Hypertension Patient Survey You may receive a survey via text or e-mail asking about your office visit. Please share your experience with us by completing your survey. We appreciate your feedback and thank you for choosing us for your care. Education Materials Scrotal Swelling Scrotal swelling is a condition in which the sac of skin that contains the testicles, blood vessels, and structures that help deliver sperm and semen (scrotum) is enlarged or swollen. This can happen on one or both sides of the scrotum. Many things can cause the scrotum to enlarge or swell, including: ? Fluid around the testicle (hydrocele). ? A weakened area in the muscles around the groin (hernia). ? An enlarged vein around the testicle. ? An injury. ? An infection. ? Certain medical treatments. ? Certain medical conditions, such as congestive heart failure. ? A recent genital surgery or procedure. ? A twisting of the spermatic cord that cuts off blood supply (testicular torsion). ? Testicular cancer. Scrotal swelling can happen along with scrotal pain. Follow these instructions at home: Activity ? Rest as told by your health care provider. The best position is to lie down. ? Do not lift anything that is heavier than 5 lb (2.3 kg), or the limit that you are told, until your health care provider says that it is safe. ? Avoid sexual activity un (more content not included)... Normal [facility] Urology Office/Clinic Noteon 01-11-2024 Urology Office/Clinic Note Urology Office/Clinic Note Chief Complaint OV due to swollen testicle HPI Staff Pt here today due to swollen testicle. Previous DX: BPH with obstruction/LUTS, gross hematuria, impotence, nocturia, weak urinary stream, ED. PVR today 43ml. Dysuria: denies pain and burning Incomplete bladder emptying: denies Hematuria: denies visible blood Frequency: denies Urgency: yes Nocturia: 3-4x a night Stream: denies hesitancy Leaking: yes Post void dripping: yes Wearing pads/ Depends: depends Urge incontinence: denies Stress incontinence: denies Incontinence without Sensory Awareness: yes Abdominal pain: denies Flank pain: denies Sexual complaints: _ History of Present Illness Tests reviewed: reviewed UA I have reviewed the previous health record information and history for this patient from Makayla Corona NP & Dr. Chavez. I have reviewed and verified the staff HPI to be accurate for this encounter. Review of Systems PHQ Score Initial Depression Screen Score: 0 SCORE ROS - Provider Constitutional: denies weight loss, denies hot flashes. Eyes: denies eye problems. Gastrointestinal: denies nausea, denies vomiting. Cardiovascular: denies chest pain or angina. Integumentary: no dryness Musculoskeletal: denies musculoskeletal symptoms. ENMT: denies otolaryngeal symptoms. Respiratory: no shortness of breath. Heme/Lymph: denies easy bleeding tendency, denies easy bruising tendency. Psychiatric: no confusion, no anxiety. Genitourinary: See HPI. Physical Exam Vitals & Measurements T: 36 ?C(Temporal Artery) HR: 70(Peripheral) BP: 128/72 HT: 73 in HT: 185 cm WT: 84 kg WT: 184.8 lb BMI: 24.54 General Appearance: alert, no distress, well nourished, well developed male. Genitourinary: normal scrotum, normal testicle on right, normal urethra, normal epididymis on right, firm and enlarged on left, normal vas deferens/spermatic cord. Assessment/Plan Pt has dementia and is accompanied by his today. 1. Swollen testicle (N50.89: Other specified disorders of the male genital organs) Pt first noticed swollen testicle on the LEFT about 3 days ago. Sxs include tenderness upon palpation. No pain with BM, no history of trauma to testicles. PE: firm left epididymal head, firm scrotum, unable to easily palpate testicle. Pt denies pain to palpation. Suspicious for epididymo-orchitis. Pt unable to take NSAIDs per vascular, plavix use. -Elevate scrotum, can trial cold compress PRN -Sched Scrotal US -Doxycycline 100mg bid x 2 weeks 2. BPH with obstruction/lower urinary tract symptoms (N40.1: Benign prostatic hyperplasia with lower urinary tract symptoms) S/p Cysto 08/05/18. S/p REZUM 09/02/2018. PVR (cc): 01/11/24 - 43 IPSS 17 (5). Pt unable to provide urine sample today. Pt states he urinates about every 3-4 hours, denies gross hematuria. BM have been regular, no complaints. No pain w/ BM or ejaculation. Mild leaking since Pt is taking Flomax 0.4mg PO daily. No urinary complaints at this time. -Timed Voids -Continue Flomax daily 3. Ferris catheter status (Z97.8: Presence of other specified devices) Pt's catheter was removed at [facility] on 01/06/24 s/p endarterectomy when ferris was placed, traumatic placement, gross heme and clot retention No gross hematuria or urinary complaints since catheter removal. PVR today 43 ml 4. Impotence (F52.21: Male erectile disorder) Sildenafil 100 mg PRN therapy, states they use medication intermittently, although not in quite a while. No SEs. Follow-up With When Contact Information DHAVAL Ragsdale APRN, Humaira Ayon, ELIEZER, URL Additional Instructions: Pt to keep follow up on 01/27/24 w/Dr. Chavez Patient Education Scrotal Swelling Benign Prostatic Hyperplasia Tree Pruitt, personally scribed for DHAVAL Dickinson on 01/11/2024 11:42:52. . Documentation recorded by the alfredo Foley accurately reflects the services(s) I performed and decisions made by me. Authenticated by Humaira Ragsdale APRN, FNP-C on 01/11/2024 12:49:56. Problem List/Past Medical History Ongoing BMI 24.0-24.9, adult BPH with obstruction/lower urinary tract symptoms Former smoker Gross hematuria Impotence Nocturia Weak urinary stream Historical Arthritis Erectile dysfunction Hyperlipidemia Hypertension Procedure/Surgical History Carotid endarterectomy (12/29/2023), Artery procedure (06/08/2020), Transurethral water vapor ablation of prostate (09/02/2018), Cystoscopy (08/05/2018), Bursa, Colonoscopy, Tonsillectomy. Medications aspirin 81 mg Oral EC Tab, 81 mg= 1 tab(s), Oral, Daily clopidogrel 75 mg Tab donepezil 5 mg Tab Flomax 0.4 mg Cap, 0.4 mg= 1 cap(s), Oral, Daily, 3 refills FLUoxetine 20 mg Cap levothyroxine 50 mcg (0.05 mg) Tab Levsin losartan 25 mg Tab, 25 mg= 1 tab(s), Oral, Daily sildenafil 100 mg Tab, 100 mg= 1 tab(s), Oral, Daily, PRN, 3 refills simvastatin 40 mg Tab (more content not included)... Normal [facility] Comment on above: Result Comment: Elec tronically Signed By: DHAVAL Ragsdale APRN, [place] X\.br\Date and Time Signed: 01/11/24 12:50 EDT\.br\Electronically Co-Signed By: Tree Foley\.br\Date and Time Co-Signed: 01/11/24 11:43 EDT Ambulatory Visit Summaryon 0 12-31-2023 Ambulatory Visit Summary Ambulatory Visit Summary FAITH OLIVIER :1945 Visit Date:12/31/2023 Ambulatory Visit Instructions Your Diagnosis Ferris catheter problem BPH with obstruction/lower urinary tract symptoms Other obstructive and reflux uropathy Your Care Team Attending Physician - Makayla Santillan Primary Care Physician - CANDACE BURLESON CNP This Is Your Medications List Contact prescribing physician if questions or concerns aspirin (aspirin 81 mg Oral EC Tab) clopidogrel (clopidogrel 75 mg Tab) donepezil (donepezil 5 mg Tab) fluoxetine (FLUoxetine 20 mg Cap) hyoscyamine (Levsin) levothyroxine (levothyroxine 50 mcg (0.05 mg) Tab) losartan (losartan 25 mg Tab) sildenafil (sildenafil 100 mg Tab) simvastatin (simvastatin 40 mg Tab) tamsulosin (Flomax 0.4 mg Cap) Procedures Performed Carotid endarterectomy (12/29/2023), Artery procedure (06/08/2020), Transurethral water vapor ablation of prostate (09/02/2018), Cystoscopy (08/05/2018), Bursa, Colonoscopy, Tonsillectomy. Discharge Vitals Heart Rate (Peripheral) 72 Respiratory Rate 16 Blood Pressure 124/76 Height 185 cm Height 73 in Weight 84 kg Weight 184.8 lb BMI 24.54 What to do next Scheduled Follow-Up Appointments Thursday 8:30 AM EDT With: Where: [facility] [address], [address] [place] [address]- Thursday 10:30 AM EDT With: Chintan CHAVEZ MD Where: [facility] [address], [address] [place] [address]- You Need to Schedule the Following Appointments Follow Up with Chintan CHAVEZ MD, URL When: Comments: Appointment has already been scheduled Where: [address] [address]- Medications What How Much When Instructions Unchanged aspirin (aspirin 81 mg Oral EC Tab) 1 Tablets By Mouth Every day Contact prescribing physician if questions or concerns Unchanged clopidogrel (clopidogrel 75 mg Tab) Contact prescribing physician if questions or concerns Unchanged donepezil (donepezil 5 mg Tab) TAKE 1 TABLET BY MOUTH EVERY DAY AT BEDTIME FOR 30 DAYS Contact prescribing physician if questions or concerns Unchanged fluoxetine (FLUoxetine 20 mg Cap) TAKE 1 CAPSULE BY MOUTH DAILY Contact prescribing physician if questions or concerns Unchanged hyoscyamine (Levsin) Contact prescribing physician if questions or concerns Unchanged levothyroxine (levothyroxine 50 mcg (0.05 mg) Tab) Contact prescribing physician if questions or concerns Unchanged losartan (losartan 25 mg Tab) 1 Tablets By Mouth Every day Contact prescribing physician if questions or concerns Unchanged sildenafil (sildenafil 100 mg Tab) 1 Tablets By Mouth Every day as needed for for erectile dysfunction 1 hour before sexual activity Contact prescribing physician if questions or concerns Unchanged simvastatin (simvastatin 40 mg Tab) Contact prescribing physician if questions or concerns Unchanged tamsulosin (Flomax 0.4 mg Cap) 1 Capsules By Mouth Every day Contact prescribing physician if questions or concerns Allergies ibuprofen (HYPERTENSION) Problems Ongoing - Any problem that you are currently receiving treatment for. BMI 24.0-24.9, adult BPH with obstruction/lower urinary tract symptoms Former smoker Gross hematuria Impotence Nocturia Weak urinary stream Historical - Any problem that you are no longer receiving treatment for. Arthritis Erectile dysfunction Hyperlipidemia Hypertension Patient Survey You may receive a survey via text or e-mail asking about your office visit. Please share your experience with us by completing your survey. We appreciate your feedback and thank you for choosing us for your care. Education Materials Benign Prostatic Hyperplasia Benign prostatic hyperplasia (BPH) [...] likely to develop in men older than 5 (more content not included)... Normal [facility] Urology Office/Clinic Noteon 12-31-2023 Urology Office/Clinic Note Urology Office/Clinic Note Chief Complaint Blood in catheter bag HPI Staff [facility] pt Last seen in our office 01/07/23 DX: BPH, Impotence, *Tamsulosin 0.4mg qd & Sildenafil 100mg PRN Here today due to blood in catheter bag. S/P Carotid Endarterectomy 12/29/23 Little out put into catheter bag. Currently taking Levsin therapy from Hospital for bladder spasms. History of Present Illness Staff HPI reviewed and agree. Review of Systems PHQ Score Initial Depression Screen Score: 0 SCORE no fever, chills, malaise, myalgia. no rash/lesions. no chest pain, palpitations, or SOB. no abdominal pain, nausea, vomiting. no unilateral calf swelling, redness, pain Physical Exam Vitals & Measurements HR: 72(Peripheral) RR: 16 BP: 124/76 HT: 73 in HT: 185 cm WT: 84 kg WT: 184.8 lb BMI: 24.54 General: nontoxic, well-nourished, appears stated age Mouth: moist mucosa Lungs: normal respiratory effort Cardio: regular rate, good distal perfusion Abdomen: nondistended, no suprapubic distention or tenderness, no CVA tenderness Neurologic: Grossly normal Skin: No rashes or suspicious lesions Assessment/Plan [facility] pt. Pt's here and serves as main historian. 1. Ferris catheter problem (T83.9XXA: Unspecified complication of genitourinary prosthetic device, implant and graft, initial encounter) Pt called in this morning c/o inability to urinate through catheter. Pt had R carotid endarterectomy with Dr. Garcia at [facility] on 12/29/23 due to recent TIA. Pt's reports that she was told patient had a traumatic catheter insertion for his surgery so they left the catheter in place post-op. While inpatient, catheter would not drain so urology was consulted and they replaced it with a 24Fr Coude and started CBI. Pt's reports that patient still had CBI in place yesterday afternoon and it remained blood-tinged but patient was discharged with catheter and told to f/u with our office in 1 week for catheter removal. Pt's reports that it did drain some last evening but has since stopped draining. Pt does feel the urge to urinate upon assessment today. I attempted to irrigate the catheter but was unable to do so. 24Fr coude cath was removed and immediate return of multiple blood clots was noted in basin. Pt continued to drain approx. over 100ml of bright red blood from his penis. Once the bleeding subsided, I replaced the catheter with 18Fr Coude without difficulty. Pt then started draining very dark, xuan urine into basin. Approx. 1000ml urine returned upon cath placement. Advised pt/pt's to increase fluid intake and minimize activity. 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 She is aware if pt would be unable to urinate again to go to [facility] ER as patient will likely need irrigation/CBI again. Pt is on Plavix which was started 6 weeks prior to surgery. I advised pt to hold Plavix for today and for pt's to call Dr. Garcia's office and advise them of the situation and get their recommendations regarding restarting Plavix. Pt was also given Levsin Q4H for bladder spasms [facility]. Pt has taken 3 doses of this medication. I advised pt's to only take this medication if he is having spasms, not around the clock as this can contribute to retention. Pt is also on Flomax per our office, advised to continue this. Pt and deny any urination problems prior to patient's surgery. I advised pt that anesthesia can cause retention but it sounds like this may be related to his traumatic ferris insertion. Advised pt to avoid constipation and increase fluids. We scheduled pt for 1 week ferris catheter removal but advised pt's to call our office or go to ER for any concerns in the meantime. Pt already has 1 year f/u appt with Dr. Chavez January 26, advised them to keep this appointment. -Increase fluids, minimize activity -Continue Flomax 0.4mg PO daily -Call Dr. Garcia's office for guidance on restarting Plavix -[facility] ER for inability to urinate/increased hematuria -1 week nurse visit with our office for cath removal (pending no further complications) -Keep f/u appt with Dr. Chavez 01/27/24 Ordered: E&M of Est. Patient Low 20-29 Min 57330 Insertion of temp indwelling bladder cath (ferris) simple 67315 2. BPH with obstruction/lower urinary tract symptoms (N40.1: Benign prostatic hyperplasia with lower urinary tract symptoms) S/p REZUM 09/02/2018. IPSS 5 Was not discussed at today's office visit but patient reports he was urinating without difficulty prior to his surgery. Pt is taking Flomax 0.4mg PO daily. -Continue Flomax 0.4mg PO daily -Increase fluids -F/U with Dr. Chavez as scheduled on 01/27/24 Ordered: E&M of Est. Patient Low 20-29 Min 52568 Insertion of temp indwelling bladder cath (ferris) simple 93873 Follow-up With When Contact Information KATHY HILL, Chintan Mo, URL [phone] [address]- Additional Instruction (more content not included)... Normal [facility] Comment on above: Result Comment: Elec tronically Signed By: Chloe PUENTES, Makayla Stokes\.br\Date and Time Signed: 12/31/23 11:10 EDT BASIC METABOLIC PANLon 12-29 Anion gap [Moles/Vol] 8 mmol/L Normal 5-15 [facility] Comment on above: Performed By: #### C BCA, PINR, 34288-7, BMP #### [facility] ([id number]) [address], [address] [place] [address] Calcium [Mass/Vol] 8.3 mg/dL Low 8.5-10.5 [facility] Comment on above: Performed By: #### C BCA, PINR, 55147-1, BMP #### [facility] ([id number]) [address] [place] [address] Chloride [Moles/Vol] 110 mmol/L High 98-109 [facility] Comment on above: Performed By: #### C BCA, PINR, 89166-5, BMP #### [facility] ([id number]) [address], [address] [place] [address] CO2 [Moles/Vol] 22 mmol/L Normal 22-32 [facility] Comment on above: Performed By: #### C BCA, PINR, 77317-6, BMP #### [facility] ([id number]) [address], [address] [place] [address] Creatinine [Mass/Vol] 0.76 mg/dL Normal 0.60-1.30 [facility] Comment on above: Result Comment: METH OD TRACEABLE TO IDMS STANDARD Performed By: #### C BCA, PINR, 43266-3, BMP #### [facility] ([id number]) [address], [address] [place] [address] eGFR (CKD-EPI) NON-RACE DEPENDENT >90 Normal >59 [facility] Comment on above: Result Comment: Reported eGFR is based on the CKD-EPI 2020 equation that does not use a race coefficient. Performed By: #### C SHIN PINR, 73001-0, BMP #### [facility] ([id number]) [address], [address] [place] [address] Glucose [Mass/Vol] 109 mg/dL High 65-99 [facility] Comment on above: Performed By: #### C SHIN PINR, 09391-8, BMP #### [facility] ([id number]) [address], [address] [place] [address] Potassium [Moles/Vol] 4.1 mmol/L Normal 3.5-5.0 [facility] Comment on above: Performed By: #### C SHIN, PINR, 13046-2, BMP #### [facility] ([id number]) [address], [address] [place] [address] Sodium [Moles/Vol] 140 mmol/L Normal 134-146 [facility] Comment on above: Performed By: #### C SHIN PINR, 00096-9, BMP #### [facility] ([id number]) [address], [address] [place] [address] Urea nitrogen [Mass/Vol] 15 mg/dL Normal 5-27 [facility] Comment on above: Performed By: #### C SHIN PINR, 87479-0, BMP #### [facility] ([id number]) [address], [address] [place] [address] COMPLETE BLOOD COUNTon 12-29 Erythrocyte distribution width (RBC) [Ratio] 13.6 % Normal 11.5-15.0 [facility] Comment on above: Performed By: #### C SHIN PINR, 90982-7, BMP #### [facility] ([id number]) [address], [address] [place] [address] Hematocrit (Bld) [Volume fraction] 32.3 % Low 39-49 [facility] Comment on above: Performed By: #### C SHIN PINR, 47821-4, BMP #### [facility] ([id number]) [address] [place] [address] Hemoglobin (Bld) [Mass/Vol] 11.0 g/dL Low 13.0-17.0 [facility] Comment on above: Performed By: #### C BRANDON MELISSA, 02323-1, BMP #### [facility] ([id number]) [address] [place] [address] MCH (RBC) [Entitic mass] 32.7 pg Normal 27-34 [facility] Comment on above: Performed By: #### C SHIN PINR, 67204-6, BMP #### [facility] ([id number]) [address] [place] [address] MCHC (RBC) [Mass/Vol] 34.1 g/dL Normal 32-36 [facility] Comment on above: Performed By: #### C BRANDON MELISSA, 91250-4, BMP #### [facility] ([id number]) [address], [address] [place] [address] MCV (RBC) [Entitic vol] 96 fL Normal 80-100 [facility] Comment on above: Performed By: #### C SHIN PINR, 36747-4, BMP #### [facility] ([id number]) [address], [address] [place] [address] Platelet mean volume (Bld) [Entitic vol] 7.9 fL Normal 7-12 [facility] Comment on above: Performed By: #### C SHIN PINR, 20751-3, BMP #### [facility] ([id number]) [address], [address] [place] [address] Platelets (Bld) [#/Vol] 192 10*3/uL Normal 150-450 [facility] Comment on above: Performed By: #### C BCA, PINR, 65350-2, BMP #### [facility] ([id number]) [address], [address] [place] [address] RBC COUNT 3.37 X10E12/L Low 4.10-5.70 [facility] Comment on above: Performed By: #### C BCA, PINR, 33850-0, BMP #### [facility] ([id number]) [address] [place] [address] WBC (Bld) [#/Vol] 8.6 10*3/uL Normal 4.0-11.0 [facility] Comment on above: Performed By: #### C BCA, PINR, 29312-2, BMP #### [facility] ([id number]) [address] [place] [address] TSH WITH REFLEXon 12-30-2023 TSH 1.69 uIU/mL Normal 0.49-4.67 [facility] Comment on above: Performed By: #### C BCA, PINR, 44365-3, BMP #### [facility] ([id number]) [address], [address] [place] [address] BASIC METABOLIC PANLon 12-28 Anion gap [Moles/Vol] 9 mmol/L Normal 5-15 [facility] Comment on above: Performed By: #### [place], [address]-7 #### [facility] ([id number]) [address], [address] [place] [address] Calcium [Mass/Vol] 8.2 mg/dL Low 8.5-10.5 [facility] Comment on above: Performed By: #### Kelly ROQUE, #### [facility] ([id number]) [address], [address] [place] [address] Chloride [Moles/Vol] 109 mmol/L Normal 98-109 [facility] Comment on above: Performed By: #### Kelly ROQUE, #### [facility] ([id number]) [address], [address] [place] [address] CO2 [Moles/Vol] 22 mmol/L Normal 22-32 [facility] Comment on above: Performed By: #### Kelly ROQUE, #### [facility] ([id number]) [address] [place] [address] Creatinine [Mass/Vol] 0.82 mg/dL Normal 0.60-1.30 [facility] Comment on above: Result Comment: METH OD TRACEABLE TO IDMS STANDARD Performed By: #### Kelly ROQUE, #### [facility] ([id number]) [address], [address] [place] [address] GFR/1.73 sq M.predicted among non-blacks MDRD (S/P/Bld) [Vol rate/Area] 90 mL/min/{1.73_m2} Normal >59 [facility] Comment on above: Result Comment: Reported eGFR is based on the CKD-EPI 2020 equation that does not use a race coefficient. Performed By: #### Kelly ROQUE, #### [facility] ([id number]) [address], [address] [place] [address] Glucose [Mass/Vol] 131 mg/dL High 65-99 [facility] Comment on above: Performed By: #### Kelly ROQUE, #### [facility] ([id number]) [address], [address] [place] [address] Potassium [Moles/Vol] 3.8 mmol/L Normal 3.5-5.0 [facility] Comment on above: Performed By: #### B JUDE, 44681-6 #### [facility] ([id number]) [address] [place] [address] Sodium [Moles/Vol] 140 mmol/L Normal 134-146 [facility] Comment on above: Performed By: #### Kelly ROQUE, #### [facility] ([id number]) [address], [address] [place] [address] Urea nitrogen [Mass/Vol] 18 mg/dL Normal 5-27 [facility] Comment on above: Performed By: #### Kelly ROQUE, #### [facility] ([id number]) [address], [address] [place] [address] Anion gap [Moles/Vol] 8 mmol/L Normal 5-15 [facility] Comment on above: Performed By: #### C BCA, PINR, 11252-8, BMP #### [facility] ([id number]) [address] [place] [address] Calcium [Mass/Vol] 9.2 mg/dL Normal 8.5-10.5 [facility] Comment on above: Performed By: #### C BCA, PINR, 26600-9, BMP #### [facility] ([id number]) [address] [place] [address] Chloride [Moles/Vol] 108 mmol/L Normal 98-109 [facility] Comment on above: Performed By: #### C BCA, PINR, 59683-2, BMP #### [facility] ([id number]) [address] [place] [address] CO2 [Moles/Vol] 25 mmol/L Normal 22-32 [facility] Comment on above: Performed By: #### C BCA, PINR, 77869-1, BMP #### [facility] ([id number]) [address] [address] [place] [address] Creatinine [Mass/Vol] 0.93 mg/dL Normal 0.60-1.30 [facility] Comment on above: Result Comment: METH OD TRACEABLE TO IDMS STANDARD Performed By: #### C BCA, PINR, 70694-3, BMP #### [facility] ([id number]) [address], [facility] [address] [place] [address] GFR/1.73 sq M.predicted among non-blacks MDRD (S/P/Bld) [Vol rate/Area] 84 mL/min/{1.73_m2} Normal >59 [facility] Comment on above: Result Comment: Reported eGFR is based on the CKD-EPI 2020 equation that does not use a race coefficient. Performed By: #### C BCA, PINR, 02115-5, BMP #### [facility] ([id number]) [address] [address] [place] [address] Glucose [Mass/Vol] 107 mg/dL High 65-99 [facility] Comment on above: Performed By: #### C BCA, PINR, 64297-6, BMP #### [facility] ([id number]) [address] [address] [place] [address] Potassium [Moles/Vol] 3.9 mmol/L Normal 3.5-5.0 [facility] Comment on above: Performed By: #### C BCA, PINR, 61999-0, BMP #### [facility] ([id number]) [address] [address] [place] [address] Sodium [Moles/Vol] 141 mmol/L Normal 134-146 [facility] Comment on above: Performed By: #### C BCA, PINR, 22125-8, BMP #### [facility] ([id number]) [address] [address] [place] [address] Urea nitrogen [Mass/Vol] 19 mg/dL Normal 5-27 [facility] Comment on above: Performed By: #### C SHIN, PINR, 80943-0, BMP #### [facility] ([id number]) [address] [place] [address] CBC AND AUTO DIFFon 12-29-19 24 ABSOLUTE BASOPHIL 0.0 X10E9/L Normal 0.0-0.2 [facility] Comment on above: Performed By: #### C BCA #### [facility] ([id number]) [address] [place] [address] ABSOLUTE NEUTROPHIL 6.6 X10E9/L Normal 1.5-6.6 [facility] Comment on above: Performed By: #### C BCA #### [facility] ([id number]) [address] [place] [address] Basophils/100 WBC (Bld) 0.3 % Normal P [facility] Comment on above: Performed By: #### C BCA #### [facility] ([id number]) [address], [address] [place] [address] Eosinophils (Bld) [#/Vol] 0.0 10*3/uL Normal 0.0-0.4 [facility] Comment on above: Performed By: #### C BCA #### [facility] ([id number]) [address] [place] [address] Eosinophils/100 WBC (Bld) 0.4 % Normal [facility] Comment on above: Performed By: #### C BCA #### [facility] ([id number]) [address] [place] [address] Erythrocyte distribution width (RBC) [Ratio] 13.3 % Normal 11.5-15.0 [facility] Comment on above: Performed By: #### C BCA #### [facility] ([id number]) [address], [address] [place] [address] Hematocrit (Bld) [Volume fraction] 32.8 % Low 39-49 [facility] Comment on above: Performed By: #### C BCA #### [facility] ([id number]) [address] [place] [address] Hemoglobin (Bld) [Mass/Vol] 11.1 g/dL Low 13.0-17.0 [facility] Comment on above: Performed By: #### C BCA #### [facility] ([id number]) [address], [address] [place] [address] Lymphocytes (Bld) [#/Vol] 0.8 10*3/uL Low 1.0-3.5 [facility] Comment on above: Performed By: #### C BCA #### [facility] ([id number]) [address], [address] [place] [address] Lymphocytes/100 WBC (Bld) 10.4 % Normal [facility] Comment on above: Performed By: #### C BCA #### [facility] ([id number]) [address], [address] [place] [address] MCH (RBC) [Entitic mass] 32.3 pg Normal 27-34 [facility] Comment on above: Performed By: #### C BCA #### [facility] ([id number]) [address], [address] [place] [address] MCHC (RBC) [Mass/Vol] 33.8 g/dL Normal 32-36 [facility] Comment on above: Performed By: #### C BCA #### [facility] ([id number]) [address], [address] [place] [address] MCV (RBC) [Entitic vol] 95 fL Normal 80-100 P [facility] Comment on above: Performed By: #### C BCA #### [facility] ([id number]) [address] [place] [address] Monocytes (Bld) [#/Vol] 0.3 10*3/uL Normal 0-0.9 [facility] Comment on above: Performed By: #### C BCA #### [facility] ([id number]) [address] [place] [address] Monocytes/100 WBC (Bld) 3.8 % Normal [facility] Comment on above: Performed By: #### C BCA #### [facility] ([id number]) [address], [address] [place] [address] Neutrophils/100 WBC (Bld) 85.1 % Normal [facility] Comment on above: Performed By: #### C BCA #### [facility] ([id number]) [address] [place] [address] Platelet mean volume (Bld) [Entitic vol] 7.6 fL Normal 7-12 [facility] Comment on above: Performed By: #### C BCA #### [facility] ([id number]) [address], [address] [place] [address] Platelets (Bld) [#/Vol] 170 10*3/uL Normal 150-450 [facility] Comment on above: Performed By: #### C BCA #### [facility] ([id number]) [address] [place] [address] RBC COUNT 3.44 X10E12/L Low 4.10-5.70 [facility] Comment on above: Performed By: #### C BCA #### [facility] ([id number]) [address] [place] [address] WBC (Bld) [#/Vol] 7.7 10*3/uL Normal 4.0-11.0 [facility] Comment on above: Performed By: #### C BCA #### [facility] ([id number]) [address], [address] [place] [address] ABSOLUTE BASOPHIL 0.0 X10E9/L Normal 0.0-0.2 [facility] Comment on above: Performed By: #### C SHIN, PINR, 39966-0, BMP #### [facility] ([id number]) [address] [place] [address] ABSOLUTE NEUTROPHIL 2.6 X10E9/L Normal 1.5-6.6 [facility] Comment on above: Performed By: #### C SHIN, PINR, 49310-0, BMP #### [facility] ([id number]) [address], [address] [place] [address] Basophils/100 WBC (Bld) 0.6 % Normal [facility] Comment on above: Performed By: #### C SHIN, PINR, 94740-4, BMP #### [facility] ([id number]) [address] [place] [address] Eosinophils (Bld) [#/Vol] 0.0 10*3/uL Normal 0.0-0.4 [facility] Comment on above: Performed By: #### C SHIN, PINR, 68189-1, BMP #### [facility] ([id number]) [address] [place] [address] Eosinophils/100 WBC (Bld) 1.0 % Normal [facility] Comment on above: Performed By: #### C SHIN, PINR, 97166-0, BMP #### [facility] ([id number]) [address] [place] [address] Erythrocyte distribution width (RBC) [Ratio] 13.4 % Normal 11.5-15.0 [facility] Comment on above: Performed By: #### C SHIN PINR, 20196-2, BMP #### [facility] ([id number]) [address] [place] [address] Hematocrit (Bld) [Volume fraction] 41.5 % Normal 39-49 [facility] Comment on above: Performed By: #### C SHIN PINR, 54353-2, BMP #### [facility] ([id number]) [address] [place] [address] Hemoglobin (Bld) [Mass/Vol] 13.9 g/dL Normal 13.0-17.0 [facility] Comment on above: Performed By: #### C SHIN PINR, 91528-9, BMP #### [facility] ([id number]) [address] [place] [address] Lymphocytes (Bld) [#/Vol] 1.2 10*3/uL Normal 1.0-3.5 [facility] Comment on above: Performed By: #### [employer] PINR, 20033-2, BMP #### [facility] ([id number]) [address] [place] [address] Lymphocytes/100 WBC (Bld) 28.0 % Normal [facility] Comment on above: Performed By: #### [employer] PINR, 78646-3, BMP #### [facility] ([id number]) [address] [place] [address] MCH (RBC) [Entitic mass] 32.3 pg Normal 27-34 [facility] Comment on above: Performed By: #### [employer] PINR, 53468-0, BMP #### [facility] ([id number]) [address] [place] [address] MCHC (RBC) [Mass/Vol] 33.6 g/dL Normal 32-36 [facility] Comment on above: Performed By: #### C SHIN, PINR, 27720-9, BMP #### [facility] ([id number]) [address] [place] [address] MCV (RBC) [Entitic vol] 96 fL Normal 80-100 P [facility] Comment on above: Performed By: #### C SHIN, PINR, 30633-5, BMP #### [facility] ([id number]) [address] [place] [address] Monocytes (Bld) [#/Vol] 0.4 10*3/uL Normal 0-0.9 [facility] Comment on above: Performed By: #### C SHIN, PINR, 24864-5, BMP #### [facility] ([id number]) [address] [place] [address] Monocytes/100 WBC (Bld) 10.3 % Normal [facility] Comment on above: Performed By: #### C SHIN, PINR, 25145-1, BMP #### [facility] ([id number]) [address] [place] [address] Neutrophils/100 WBC (Bld) 60.1 % Normal [facility] Comment on above: Performed By: #### C SHIN, PINR, 40110-0, BMP #### [facility] ([id number]) [address] [place] [address] Platelet mean volume (Bld) [Entitic vol] 7.5 fL Normal 7-12 [facility] Comment on above: Performed By: #### C SHIN, PINR, 72657-7, BMP #### [facility] ([id number]) [address] [place] [address] Platelets (Bld) [#/Vol] 197 10*3/uL Normal 150-450 [facility] Comment on above: Performed By: #### C BCA, PINR, 54592-3, BMP #### [facility] ([id number]) [address] [place] [address] RBC COUNT 4.31 X10E12/L Normal 4.10-5.70 [facility] Comment on above: Performed By: #### C SHIN, PINR, 57986-6, BMP #### [facility] ([id number]) [address] [place] [address] WBC (Bld) [#/Vol] 4.3 10*3/uL Normal 4.0-11.0 [facility] Comment on above: Performed By: #### C SHIN, PINR, 15031-8, BMP #### [facility] ([id number]) [address] [place] [address] Calcium.ionized (Bld) [Mass/ Vol]on 12-29-2023 IONIZED CALCIUM 4.5 mg/dL Normal 4.5-5.3 [facility] Comment on above: Performed By: #### 3 8230-9 #### [facility] ([id number]) [address] [place] [address] HGB AND HCTon 12-29-2023 Hematocrit (Bld) [Volume fraction] 31.6 % Low 39-49 [facility] Comment on above: Performed By: #### C BCA, PINR, 54324-5, BMP #### [facility] ([id number]) [address], [address] [place] [address] Hemoglobin (Bld) [Mass/Vol] 11.2 g/dL Low 13.0-17.0 [facility] Comment on above: Performed By: #### C BCA, PINR, 11055-9, BMP #### [facility] ([id number]) [address], [address] [place] [address] MAGNESIUMon 12-29-2023 Magnesium [Mass/Vol] 2.1 mg/dL Normal 1.8-2.6 [facility] Comment on above: Performed By: #### [place], [address]-7 #### [facility] ([id number]) [address], [address] [place] [address] Magnesium Ionized ISE (Bld) [Moles/Vol]on 12-29-2023 Magnesium [Moles/Vol] 0.63 mmol/L Normal 0.45-0.74 [facility] Comment on above: Result Comment: NEW REFERENCE RANGE Performed By: #### 7 3572-0 #### [facility] ([id number]) [address], [address] [place] [address] PROTIME AND INRon 12-29-2023 INR Coag (PPP) [Relative time] 1.0 {INR} Normal 0.8-1.1 [facility] Comment on above: Performed By: #### C SHIN, PINR, 05188-0, BMP #### [facility] ([id number]) [address] [place] [address] PT Coag (PPP) [Time] 12.0 s Normal 9.8-13.2 [facility] Comment on above: Performed By: #### C SHIN, PINR, 36125-1, BMP #### [facility] ([id number]) [address] [place] [address] RAPID CARDIACon 12-29-2023 SHAUNNA'S TEST Normal [facility] Comment on above: Performed By: #### A FAB5 #### [facility] ([id number]) [address] [place] [address] BASE,DEFICIT 2.0 MMOL/L Normal 0.0-2.0 [facility] Comment on above: Performed By: #### A FAB5 #### [facility] ([id number]) [address] [place] [address] Body temperature 98.6 [degF] Normal 37.0 [facility] Comment on above: Performed By: #### A FAB5 #### [facility] ([id number]) [address] [place] [address] Glucose [Mass/Vol] 111 mg/dL High 65-99 [facility] Comment on above: Performed By: #### A FAB5 #### [facility] ([id number]) [address] [place] [address] HCO3 (Bld) [Moles/Vol] 22.4 mmol/L Normal 22-26 [facility] Comment on above: Performed By: #### A FAB5 #### [facility] ([id number]) [address] [place] [address] Hematocrit (Bld) [Volume fraction] 37 % Low 39-49 [facility] Comment on above: Performed By: #### A FAB5 #### [facility] ([id number]) [address] [place] [address] Hemoglobin (Bld) [Mass/Vol] 12.1 g/dL Low 13.0-17.0 [facility] Comment on above: Performed By: #### A FAB5 #### [facility] ([id number]) [address] [place] [address] INSP. O2 CONC. 100 % Normal [facility] Comment on above: Performed By: #### A FAB5 #### [facility] ([id number]) [address] [place] [address] IONIZED CALCIUM 4.6 mg/dL Normal 4.5-5.3 [facility] Comment on above: Performed By: #### A FAB5 #### [facility] ([id number]) [address] [place] [address] Oxygen (Bld) [Partial pressure] 254 mm[Hg] High 80-100 [facility] Comment on above: Performed By: #### A FAB5 #### [facility] ([id number]) [address] [place] [address] Oxygen saturation in Blood 100.4 % Normal >90 [facility] Comment on above: Performed By: #### A FAB5 #### [facility] ([id number]) [address] [place] [address] PCO2 33.9 MMHG Low 35-45 [facility] Comment on above: Performed By: #### A FAB5 #### [facility] ([id number]) [address] [place] [address] pH (Bld) 7.428 [pH] Normal 7.350-7.450 [facility] Comment on above: Performed By: #### A FAB5 #### [facility] ([id number]) [address] [place] [address] Potassium [Moles/Vol] 3.8 mmol/L Normal 3.5-5.0 [facility] Comment on above: Performed By: #### A FAB5 #### [facility] ([id number]) [address] [place] [address] SAMPLE SITE TANGELA Normal [facility] Comment on above: Performed By: #### A FAB5 #### [facility] ([id number]) [address] [place] [address] SAMPLE TYPE Arterial Normal [facility] Comment on above: Performed By: #### A FAB5 #### [facility] ([id number]) [address] [place] [address] aPTT Coag (PPP) [Time]on aPTT Coag (Bld) [Time] 37 s Normal 26-37 [facility] Comment on above: Performed By: #### C BCA, PINR, 42955-8, BMP #### [facility] ([id number]) [address] [facility], [address] [place] [address] Hgb/Hcton 12-01-2023 Hematocrit (Bld) [Volume fraction] 41.3 % Normal 41.0-53.0 [facility] Comment on above: Performed By: #### F EBC, LIPR, FT4 #### [address] [id number] Supply Chain Coordinator: Arnav Barnes MD #### HH #### [facility] [address] [place], [place] [id number] Supply Chain Coordinator: Анна Biswas MD Hemoglobin (Bld) [Mass/Vol] 13.9 g/dL Normal 13.5-17.5 [facility] Comment on above: Performed By: #### F EBC, LIPR, FT4 #### [address] [id number] Supply Chain Coordinator: Arnav Barnes MD #### HH #### [facility] [address] [place], [place] [id number] Supply Chain Coordinator: Анна Biswas MD Iron Binding Cap.on 12-01-19 24 % Fe Saturation 27 % Normal 20-55 [facility] Comment on above: Performed By: #### F EBC, LIPR, FT4 #### [address] [id number] Supply Chain Coordinator: Arnav Barnes MD #### HH #### [facility] [address] [place] [address] Supply Chain Coordinator: Анна Biswas MD Iron [Mass/Vol] 79 ug/dL Normal 61-157 [facility] Comment on above: Performed By: #### F EBC, LIPR, FT4 #### [address] [id number] Supply Chain Coordinator: Arnav Barnes MD #### HH #### [facility] [address] [place], [place] [phone] Supply Chain Coordinator: Анна Biswas MD Total Fe Binding Cap 292 ug/dL Normal 250-450 [facility] Comment on above: Performed By: #### F EBC, LIPR, FT4 #### [facility] [address] [place], [place] [id number] Supply Chain Coordinator: Arnav Barnes MD #### HH #### [facility] [address] [place], [place] [id number] Supply Chain Coordinator: Анна Biswas MD Unbound Fe Bind Cap 213 ug/dL Normal 112-347 [facility] Comment on above: Performed By: #### F EBC, LIPR, FT4 #### [address] [id number] Supply Chain Coordinator: Arnav Barnes MD #### HH #### [facility] [address] [place] [address] Supply Chain Coordinator: Анна Biswas MD Lipid Profileon 12-01-2023 Cholesterol [Mass/Vol] 151 mg/dL Normal 0-199 [facility] Comment on above: Result Comment: Cholesterol Guidelines: <200 Desirable 200-240 Borderline >240 Undesirable Performed By: #### F EBC, LIPR, FT4 #### [address] [address] Supply Chain Coordinator: Arnav Barnes MD #### HH #### [facility] [address] [place], [place] [id number] Supply Chain Coordinator: Анна Biswas MD Cholesterol in HDL [Mass/Vol] 54 mg/dL Normal >40 [facility] Comment on above: Result Comment: HDL Guidelines: <40 Undesirable 40-59 Borderline >59 Desirable Performed By: #### F EBC, LIPR, FT4 #### [facility] [address] [place] [id number] Supply Chain Coordinator: Arnav Barnes MD #### HH #### [facility] [address] [place], [place] 7755290 Supply Chain Coordinator: Анна Biswas MD Cholesterol in LDL [Mass/Vol] 89 mg/dL Normal 0-100 [facility] Comment on above: Result Comment: LDL Guidelines: <100 Desirable 100-129 Near to/above Desirable 130-159 Borderline >159 Undesirable Direct (measured) LDL and calculated LDL are not interchangeable tests. Performed By: #### F EBC, LIPR, FT4 #### [address] [id number] Supply Chain Coordinator: Arnav Barnes MD #### HH #### [facility] [address] [place], [place] [phone] Supply Chain Coordinator: Анна Biswas MD Cholesterol in VLDL [Mass/Vol] 8 mg/dL Normal [facility] Comment on above: Performed By: #### F EBC, LIPR, FT4 #### [address] [phone] Supply Chain Coordinator: Arnav Barnes MD #### HH #### [facility] [address] [place], [place] 0527190 Supply Chain Coordinator: Анна Biswas MD Cholesterol.total/Ninoska sterol in HDL [Mass ratio] 3.0 {ratio} Normal [facility] Comment on above: Performed By: #### F EBC, LIPR, FT4 #### [address] [place] [address] Supply Chain Coordinator: Arnav Barnes MD #### HH #### [facility] [address] [place], [place] 6088690 Supply Chain Coordinator: Анна Biswas MD Triglyceride [Mass/Vol] 41 mg/dL Normal <150 M [facility] Comment on above: Result Comment: Triglyceride Guidelines: <150 Desirable 150-199 Borderline 200-499 High >499 Very high Based on AHA Guidelines for fasting triglyceride, March 2012. Performed By: #### F EBC, LIPR, FT4 #### [facility] [address] [place], [place] 6068608 Supply Chain Coordinator: Arnav Barnes MD #### HH #### [facility] [address] [place], [place] 5395[address] Supply Chain Coordinator: Анна Biswas MD Thyroxine, Freeon 12-01-2023 Thyroxine, Free 1.1 ng/dL Normal 0.92-1.68 [facility] Comment on above: Performed By: #### F EBC, LIPR, FT4 #### [facility] [address] [place], [place] 7117708 Supply Chain Coordinator: Arnav Barnes MD #### HH #### [facility] [address] [place], [place] 48837[address] Supply Chain Coordinator: Анна Biswas MD Outside Recordson 11-03-2023 Outside Records [id number] 02 [id number] Normal [facility] Office Visiton 08-04-2023 Follow-up visit [id number] [address] 1945 M Date Provider Department Center 08/04/2023 STELLA JANE CARD [facility] Family History Problem Relation Age of Onset Stroke Father Diabetes Father Family Status - Relation Status Age at Father Level of Service:74551 [place] OFFICE/OUTPATIENT ESTABLISHED LOW MDM 20 MIN Reason for Visit and Comments: Hypertension [566542] Hyperlipidemia [182] Normal [facility] Alanine aminotransferase [En zymatic activity/volume] in Serum or PlasmaOrdered By: Leonides Dyer on 06-06-2023 ALT [Catalytic activity/Vol] 23 U/L Normal [facility] Comment on above: Performed By: #### C BC, CMP #### [facility] [address] Albumin [Mass/volume] in Ser um or Plasma by Bromocresol green (BCG) dye binding methoOrdered By: Leonidescecy Dyer on 06-06-2023 Albumin BCG dye [Mass/Vol] 4.3 g/dL 3.5-5.7 [facility] Alkaline phosphatase [Enzyma tic activity/volume] in Serum or PlasmaOrdered By: Leonides Dyer on 06-06-2023 ALP [Catalytic activity/Vol] 42 U/L Normal 34-104 [facility] Comment on above: Performed By: #### C BC, CMP #### [address] Aspartate aminotransferase [ Enzymatic activity/volume] in Serum or PlasmaOrdered By: Leonides Dyer on 06-06-2023 AST [Catalytic activity/Vol] 22 U/L Normal 13-39 [facility] Comment on above: Performed By: #### C BC, CMP #### [address] Automated basophil %Ordered By: Leonides Dyer on 06-06-2023 Basophils/100 WBC (Bld) 0.4 % Normal . [facility] Comment on above: Performed By: #### C BC, CMP #### [address] Automated basophil countOrde red By: Leonides Dyer on 06-06-2023 Basophils (Bld) [#/Vol] 0.0 10*3/uL Normal 0.0-0.2 [facility] Comment on above: Result Comment: PERF ORMED BY: [place] [address] PATHOLOGIST FAST FOOD WORKER ANNABEL SANON M.D. Performed By: #### C BC, CMP #### [address] Automated blood monocyte cou ntOrdered By: Leonides Dyer on 06-06-2023 Monocytes (Bld) [#/Vol] 1.0 10*3/uL High 0.0-0.8 [facility] Comment on above: Performed By: #### C BC, CMP #### [address] [place] [address] [place] Automated eosinophil %Ordere d By: Leonides Marinoconstantine on 06-06-2023 Eosinophils/100 WBC (Bld) 0.2 % Normal . [facility] Comment on above: Performed By: #### C BC, CMP #### [address] Automated eosinophil countOr dered By: Leonides Marinoconstantine on 06-06-2023 Eosinophils (Bld) [#/Vol] 0.0 10*3/uL Normal 0.0-0.45 [facility] Comment on above: Performed By: #### C BC, CMP #### [address] Automated erythrocytes count in urine sediment (number/area)Ordered By: Leonides Manisha on 06-06-2023 RBC Auto (Urine sed) [#/Area] 0-1 [HPF] 0-4 [facility] Automated leukocytes count i n urine sediment (number/area)Ordered By: Leonides Dyer on 06-06-2023 WBC Auto (Urine sed) [#/Area] 1-2 [HPF] 0-4 [facility] Automated monocyte %Ordered By: Leonides Manisha on 06-06-2023 Monocytes/100 WBC (Bld) 20.7 % Normal . [facility] Comment on above: Performed By: #### C BC, CMP #### [address] Automated neutrophil %Ordere d By: Leonides Manisha on 06-06-2023 Neutrophils/100 WBC (Bld) 66.6 % Normal . [facility] Comment on above: Performed By: #### C BC, CMP #### [address] Automated urine color determ inationOrdered By: Leonidescecy Dyer on 06-06-2023 Color (U) Yellow Normal Yellow [facility] Comment on above: Order Comment: Name Collection Type:: Clean-Voided Midstream Performed By: #### A DDONUAPLUS #### [address] Bilirubin Test strip Ql (U)O rdered By: Leonides Dyer on 06-06-2023 Bilirubin Ql (U) Negative Negative [facility] Bilirubin.total [Mass/volume ] in Serum or PlasmaOrdered By: Leonides Dyer on 06-06-2023 Bilirubin [Mass/Vol] 0.5 mg/dL Normal 0.3-1.0 [facility] Comment on above: Performed By: #### C BC, CMP #### [address] Calcium [Mass/volume] in Ser um or PlasmaOrdered By: Leonides Marinoconstantine on 06-06-2023 Calcium [Mass/Vol] 9.1 mg/dL Normal 8.6-10.3 [facility] Comment on above: Performed By: #### C BC, CMP #### [address] Carbon dioxide, total [Moles /volume] in Serum or PlasmaOrdered By: Leonides Dyer on 06-06-2023 CO2 [Moles/Vol] 27.5 mmol/L Normal 21.0-31.0 [facility] Comment on above: Performed By: #### C BC, CMP #### [place] [address] [place] Chloride [Moles/volume] in S stephen or PlasmaOrdered By: Leonides Marinoconstantine on 06-06-2023 Chloride [Moles/Vol] 101 mmol/L Normal 98-107 [facility] Comment on above: Performed By: #### C BC, CMP #### [place] [address] [place] Complete Blood Count Auto Di ffon 06-06-2023 Mean Corpuscular HGB Conc 33.8 g/dL Normal 32.5-35.6 [facility] Comment on above: Performed By: #### C BC, CMP #### [place] [address] [place] Monocytes/100 WBC (Bld) 24.84 % High 0.00-20.00 [facility] Comment on above: Result Comment: For adults in ED, MDW > 20.0 may be associated with a higher risk of sepsis during the first 12 hrs of hospital admission Performed By: #### C BC, CMP #### [address] NRBC% 0.1 /100{WBC} Normal 0-0.5 [facility] Comment on above: Performed By: #### C BC, CMP #### [address] Comprehensive Metabolic Pane ruth 06-06-2023 Albumin [Mass/Vol] 4.3 g/dL Normal 3.5-5.7 [facility] Comment on above: Performed By: #### C BC, CMP #### [address] Creatinine Clr Calc Pharmacy 71.67 Normal [facility] Comment on above: Result Comment: PERF ORMED BY: [place] [address] PATHOLOGIST FAST [employer] WORKER ANNABEL SANON M.D. Performed By: #### C BC, CMP #### [address] GFR/1.73 sq M.predicted MDRD (S/P/Bld) [Vol rate/Area] mL/min/{1.73_m2} Normal [facility] Comment on above: Performed By: #### C BC, CMP #### [address] Creatinine [Mass/volume] in Serum or PlasmaOrdered By: Leonides Dyer on 06-06-2023 Creatinine [Mass/Vol] 0.96 mg/dL Normal 0.70-1.30 [facility] Comment on above: Performed By: #### C BC, CMP #### [place] [address] [place] Dipstick and Microscopicon 1 Appearance (U) Clear Normal Clear [facility] Comment on above: Order Comment: Name Collection Type:: Clean-Voided Midstream Performed By: #### A DDONUAPLUS #### [facility] [address] [place] [address] [place] Bacteria,Urine 1+ High None Seen [facility] Comment on above: Order Comment: Name Collection Type:: Clean-Voided Midstream Performed By: #### A DDONUAPLUS #### [facility] [address] [place] [address] [place] Bilirubin,Urine Negative Normal Negative [facility] Comment on above: Order Comment: Name Collection Type:: Clean-Voided Midstream Performed By: #### A DDONUAPLUS #### [place] [address] [place] Glucose Ql (U) Normal Normal Normal [facility] Comment on above: Order Comment: Name Collection Type:: Clean-Voided Midstream Performed By: #### A DDONUAPLUS #### [place] [address] [place] Hyaline Casts,Urine None Seen Normal 0-8 [facility] Comment on above: Order Comment: Name Collection Type:: Clean-Voided Midstream Result Comment: PERF ORMED BY: [place] [address] PATHOLOGIST FAST FOOD WORKER ANNABEL SANON M.D. Performed By: #### A DDONUAPLUS #### [place] [address] [place] Ketones Ql (U) 1+ High Negative [facility] Comment on above: Order Comment: Name Collection Type:: Clean-Voided Midstream Performed By: #### A DDONUAPLUS #### [place] [address] [place] Leukocyte esterase Test strip Ql (U) Negative Normal Negative [facility] Comment on above: Order Comment: Name Collection Type:: Clean-Voided Midstream Performed By: #### A DDONUAPLUS #### [place] [address] [place] Nitrite,Urine Negative Normal Negative [facility] Comment on above: Order Comment: Name Collection Type:: Clean-Voided Midstream Performed By: #### A DDONUAPLUS #### [place] [address] [place] Occult Blood,Urine Trace High Negative [facility] Comment on above: Order Comment: Name Collection Type:: Clean-Voided Midstream Result Comment: PERF ORMED BY: [place] [address] PATHOLOGIST FAST FOOD WORKER ANNABEL SANON M.D. Performed By: #### A DDONUAPLUS #### [place] [address] [place] Protein,Urine Negative Normal Negative [facility] Comment on above: Order Comment: Name Collection Type:: Clean-Voided Midstream Performed By: #### A DDONUAPLUS #### [place] [address] [place] RBC LM.HPF (Urine sed) [#/Area] 0 /[HPF] Normal 0-4 [facility] Comment on above: Order Comment: Name Collection Type:: Clean-Voided Midstream Performed By: #### A DDONUAPLUS #### [place] [address] [place] Specificy Castile,Urine 1.018 Normal 1.001-1.030 [facility] Comment on above: Order Comment: Name Collection Type:: Clean-Voided Midstream Performed By: #### A DDONUAPLUS #### [place] [address] [place] Squamous Epithelial Cell,Urine None Seen Normal 0-2 [facility] Comment on above: Order Comment: Name Collection Type:: Clean-Voided Midstream Performed By: #### A DDONUAPLUS #### [place] [address] [place] Urobilinogen,Urine Normal Normal Normal [facility] Comment on above: Order Comment: Name Collection Type:: Clean-Voided Midstream Performed By: #### A DDONUAPLUS #### [place] [address] [place] WBC,Urine 1-2 Normal 0-4 [facility] Comment on above: Order Comment: Name Collection Type:: Clean-Voided Midstream Performed By: #### A DDONUAPLUS #### [facility] [address] [place] [address] ECG 12 lead ECGon 06-06-2023 ECG 12 lead ECG [facility] Main [place] [address] [place] [address] Electrocardiograph Report Signed Patient: Faith Olivier MR#: [id number] : 1945 Acct:[id number] Age/Sex: 78 / M ADM Date: 06/06/23 Loc: ER Room: Type: [facility] ER Attending Dr: Ordering Provider: Leonides [...] By Leonides Dyer DO 2312 Normal [facility] Erythrocyte distribution wid th [Ratio] by Automated countOrdered By: Leonides Dyer on 06-06-2023 Erythrocyte distribution width (RBC) [Ratio] 12.9 % Normal 12.0-14.8 [facility] Comment on above: Performed By: #### C BC, CMP #### [facility] [address] [place] [address] [place] Erythrocytes [#/volume] in B lood by Automated countOrdered By: Leonides Dyer on 06-06-2023 RBC (Bld) [#/Vol] 4.13 10*6/uL Normal 3.90-5.60 [facility] Comment on above: Performed By: #### C BC, CMP #### [place] [address] [place] Glucose [Mass/volume] in Ser um or PlasmaOrdered By: Leonides Dyer on 06-06-2023 Glucose [Mass/Vol] 91 mg/dL Normal 70-100 [facility] Comment on above: ADA recommended refe rence rangeRandom Glucose Reference Range is dependent on time and content of last meal. Glucose of more than 200 mg/dL in a nonstressed, ambulatory subject supports the diagnosis of Diabetes Mellitus. Result Comment: [place] om Glucose Reference Range is dependent on time and content of last meal. Glucose of more than 200 mg/dL in a nonstressed, ambulatory subject supports the diagnosis of Diabetes Mellitus. ADA recommended reference range Performed By: #### C BC, CMP #### [address] Hematocrit [Volume Fraction] of Blood by Automated countOrdered By: Leonides Dyer on 06-06-2023 Hematocrit (Bld) [Volume fraction] 39.6 % Normal 38.8-50.0 [facility] Comment on above: Performed By: #### C BC, CMP #### [address] Hemoglobin [Mass/volume] in BloodOrdered By: Leonides Dyer on 06-06-2023 Hemoglobin (Bld) [Mass/Vol] 13.4 g/dL Normal 13.0-17.0 [facility] Comment on above: Performed By: #### C BC, CMP #### [address] Ketones Auto test strip (U) [Mass/Vol]Ordered By: Leonides Dyer on 06-06-2023 Ketones (U) [Mass/Vol] 1+ Negative [facility] - UrinalysisOrder ed By: Leonides Dyer on 06-06-2023 Hyaline casts LM Ql (Urine sed) None seen [LPF] 0-8 [facility] Leukocytes [#/volume] correc hunter for nucleated erythrocytes in Blood by Automated counOrdered By: Leonides Dyer on 06-06-2023 WBC corrected for nucl RBC Auto (Bld) [#/Vol] 4.9 10*3/uL 4.1-10.5 [facility] Leukocytes [#/volume] in Blo od by Automated countOrdered By: Leonidescecy Dyer on 06-06-2023 WBC (Bld) [#/Vol] 4.9 10*3/uL Normal 4.1-10.5 [facility] Comment on above: Performed By: #### C BC, CMP #### [address] Lymphocytes [#/volume] in Bl ood by Automated countOrdered By: Leonides Dyer on 06-06-2023 Lymphocytes (Bld) [#/Vol] 0.6 10*3/uL Low 1.00-4.8 [facility] Comment on above: Performed By: #### C BC, CMP #### [address] Lymphocytes/100 leukocytes i n Blood by Automated countOrdered By: Leonides Dyer on 06-06-2023 Lymphocytes/100 WBC (Bld) 12.1 % Normal . [facility] Comment on above: Performed By: #### C BC, CMP #### [address] MCH [Entitic mass] by Automa hunter countOrdered By: Leonides Dyer on 06-06-2023 MCH (RBC) [Entitic mass] 32.4 pg Normal 27.5-35.2 [facility] Comment on above: Performed By: #### C BC, CMP #### [address] MCHC Auto (RBC) [Mass/Vol]Or dered By: Leonides Dyer on 06-06-2023 MCHC (RBC) [Mass/Vol] 33.8 g/dL 32.5-35.6 [facility] MCV [Entitic volume] by Auto mated countOrdered By: Leonides Dyer on 06-06-2023 MCV (RBC) [Entitic vol] 95.9 fL Normal 83.5-101 [facility] Comment on above: Performed By: #### C BC, CMP #### [facility] [address] Monocyte distribution width [Entitic volume] in Blood by AutomatedOrdered By: Leonides Dyer on 06-06-2023 Monocyte distribution width Auto (Bld) [Entitic vol] 24.84 % 0.00-20.00 [facility] Comment on above: For adults in ED, MD W > 20.0 may be associated with a higher risk of sepsis during the first 12 hrs of hospital admission Neutrophils [#/volume] in Bl ood by Automated countOrdered By: Leonides Dyer on 06-06-2023 Neutrophils (Bld) [#/Vol] 3.3 10*3/uL Normal 1.8-7.7 [facility] Comment on above: Performed By: #### C DIPIKA, CMP #### [facility] [address] Nitrite Test strip Ql (U)Ord ered By: Leonides Dyer on 06-06-2023 Nitrite Ql (U) Negative Negative [facility] No Panel InformationOrdered By: Leonides Dyer on 06-06-2023 Estimated GFR (CKD-EPI) > 60.0 mL/Min [facility] Creatinine Clearance (Chem 71.67 [facility] Nucleated erythrocytes [Pres ence] in Blood by Automated countOrdered By: Leonides Dyer on 06-06-2023 Nucleated RBC Auto Ql (Bld) 0.1 /100{WBC} 0-0.5 [facility] Platelet mean volume [Entiti c volume] in Blood by Automated countOrdered By: Leonides Dyer on 06-06-2023 Platelet mean volume (Bld) [Entitic vol] 7.4 fL Normal 6.6-10.1 [facility] Comment on above: Performed By: #### C BC, CMP #### [facility] [address] Platelets [#/volume] in Bloo d by Automated countOrdered By: Leonides Dyer on 06-06-2023 Platelets (Bld) [#/Vol] 175 10*3/uL Normal 150-450 [facility] Comment on above: Performed By: #### C BC, CMP #### [address] Potassium [Moles/volume] in Serum or PlasmaOrdered By: Leonides Dyer on 06-06-2023 Potassium [Moles/Vol] 3.8 mmol/L Normal 3.5-5.1 [facility] Comment on above: Performed By: #### C BC, CMP #### [address] Protein Auto test strip (U) [Mass/Vol]Ordered By: Leonides Dyer on 06-06-2023 Protein (U) [Mass/Vol] Negative Negative [facility] Protein [Mass/volume] in Ser um or PlasmaOrdered By: Leonides Dyer on 06-06-2023 Protein [Mass/Vol] 7.5 g/dL Normal 6.4-8.9 [facility] Comment on above: Performed By: #### C BC, CMP #### [address] Serum globulin measurement b y calculation (mass/volume)Ordered By: Leonides Dyer on 06-06-2023 Globulin (S) [Mass/Vol] 3.2 g/dL Normal [facility] Comment on above: Performed By: #### C BC, CMP #### [address] Serum or plasma albumin/glob ulin mass ratioOrdered By: Leonides Dyer on 06-06-2023 Albumin/Globulin [Mass ratio] 1.3 {ratio} Normal [facility] Comment on above: Performed By: #### C BC, CMP #### [address] Serum or plasma anion gap de terminationOrdered By: Leonides Dyer on 06-06-2023 Anion gap [Moles/Vol] 8.3 mmol/L Normal 6.0-15.0 [facility] Comment on above: Performed By: #### C BC, CMP #### [facility] [address] [place] [id number] [place] Sodium [Moles/volume] in Ser um or PlasmaOrdered By: Leonides Dyer on 06-06-2023 Sodium [Moles/Vol] 133 mmol/L Low 136-145 [facility] Comment on above: Performed By: #### C DIPIKA, CMP #### [facility] [address] [place] [address] [place] Specific gravity Auto test s trip (U) [Rel density]Ordered By: Leonides Dyer on 06-06-2023 Specific gravity (U) [Rel density] 1.018 1.001-1.030 [facility] Squamous epithelial cells de tection in urine sediment by light microscopyOrdered By: Leonides Dyer on 06-06-2023 Epithelial cells.squamous LM Ql (Urine sed) None seen [HPF] 0-2 [facility] Urea nitrogen [Mass/volume] in Serum or PlasmaOrdered By: Leonides Dyer on 06-06-2023 Urea nitrogen [Mass/Vol] 16 mg/dL Normal 7-25 [facility] Comment on above: Performed By: #### C DIPIKA, CMP #### [facility] [address] Urine bacteria detection by automated methodOrdered By: Leonides Dyer on 06-06-2023 Bacteria Auto Ql (U) 1+ None Seen [facility] Urine clarity by refractomet ry automatedOrdered By: Leonides Dyer on 06-06-2023 Clarity Refractometry automated (U) Clear Clear [facility] Urine glucose measurement by automated test strip (mass/volume)Ordered By: Leonides Dyer on 06-06-2023 Glucose Auto test strip (U) [Mass/Vol] Normal mg/dL Normal [facility] Urine hemoglobin detection b y automated test stripOrdered By: Leonides Dyer on 06-06-2023 Hemoglobin Auto test strip Ql (U) Trace Negative [facility] Urine leukocyte esterase det ection by automated test stripOrdered By: Leonides Dyer on 06-06-2023 Leukocyte esterase Auto test strip Ql (U) Negative Negative [facility] Urine pH measurement by auto mated test stripOrdered By: Leonides Dyer on 06-06-2023 pH (U) 5.5 [pH] Normal 5.0-9.0 [facility] Comment on above: Order Comment: Name Collection Type:: Clean-Voided Midstream Performed By: #### A DDONUAPLUS #### [address] Urobilinogen Auto test strip (U) [Mass/Vol]Ordered By: Leonides Dyer on 06-06-2023 Urobilinogen (U) [Mass/Vol] Normal mg/dL Normal [facility] XR chest 2V*on 06-06-2023 XR chest 2V* [facility] Main [place] [address] [place] [address] XRay Report Signed Patient: Faith Olivier MR#: [id number] : 1945 Acct:[id number] Age/Sex: 78 / M ADM Date: 06/06/23 Loc: ER Room: Type: [facility] ER Attending Dr: Copies to: Leonides [...] Tristan Bruce M.D.06/06/2023 7:14 PM Dictation Location: [place] [address] Transcribed By: [facility] 06/06/231913 Dictated By: Tristan Bruce DO 06/06/231912 Signed By: 06/06/231913 Normal [facility] B12/Folate Panelon 3 Cobalamin (Vitamin B12) [Mass/Vol] 673 pg/mL Normal 232-1245 [facility] Comment on above: Performed By: #### B 12FOL, VD25 #### [facility] [address] [place] [address] Supply Chain Coordinator: Arnav Barnes MD #### CDP #### [facility] [address] [place] [address] Supply Chain Coordinator: Анна Biswas MD Folic Acid 15.9 ng/mL Normal >4.8 [facility] Comment on above: Performed By: #### B 12FOL, VD25 #### [address] [address] Supply Chain Coordinator: Arnav Barnes MD #### CDP #### [facility] [address] [place] [address] Supply Chain Coordinator: Анна Biswas MD CBC with Diffon 04-27-2023 Abs. Basophil 0.02 k/uL Normal 0.00-0.20 [facility] Comment on above: Performed By: #### Kelly 12FOZurdo, VD25 #### [address] [address] Supply Chain Coordinator: Arnav Barnes MD #### CDP #### [facility] [place] [facility] [address] [place] [address] Supply Chain Coordinator: Анна Biswas MD Abs.Imm.Granulocyte 0.01 k/uL Normal 0.00-0.30 [facility] Comment on above: Performed By: #### Klely 12FOL, VD25 #### [place] [address] [place] [address] Supply Chain Coordinator: Arnav Barnes MD #### CDP #### [facility] [address] [place] [address] Supply Chain Coordinator: Анна Biswas MD Abs.Neutrophil (Seg) 2.87 k/uL Normal 2.1-6.5 [facility] Comment on above: Performed By: #### B 12FOL, VD25 #### [address] [address] Supply Chain Coordinator: Arnav Barnes MD #### CDP #### [facility] [address] [place] [address] Supply Chain Coordinator: Анна Biswas MD Basophils/100 WBC (Bld) 0 % Normal 0-2 [facility] Comment on above: Performed By: #### B 12FOL, VD25 #### [address] [address] Supply Chain Coordinator: Arnav Barnes MD #### CDP #### [facility] [address] [place] [address] Supply Chain Coordinator: Анна Biswas MD Eosinophils (Bld) [#/Vol] 0.06 10*3/uL Normal 0.00-0.40 [facility] Comment on above: Performed By: #### Kelly 12FOL, VD25 #### [address] [address] Supply Chain Coordinator: Arnav Barnes MD #### CDP #### [facility] [address] [place] [address] Supply Chain Coordinator: Анна Biswas MD Eosinophils/100 WBC (Bld) 1 % Normal 0-[address] [place] [address] Comment on above: Performed By: #### B 12FOL, VD25 #### [address] [address] Supply Chain Coordinator: Arnav Barnes MD #### CDP #### [facility] [address] [place] [address] Supply Chain Coordinator: Анна Biswas MD Immature granulocytes/100 WBC (Bld) 0 % Normal 0-5 [facility] Comment on above: Performed By: #### B 12FOL, VD25 #### [address] [id number] Supply Chain Coordinator: Arnav Barnes MD #### CDP #### [facility] [address] [place] [address] Supply Chain Coordinator: Анна Biswas MD Lymphocytes (Bld) [#/Vol] 1.60 10*3/uL Normal 1.00-4.80 [facility] Comment on above: Performed By: #### B 12FOL, VD25 #### [address] [address] Supply Chain Coordinator: Arnav Barnes MD #### CDP #### [facility] [address] [place] [address] Supply Chain Coordinator: Анна Biswas MD Lymphocytes/100 WBC (Bld) 32 % Normal 13-44 [facility] Comment on above: Performed By: #### B 12FOL, VD25 #### [address] [id number] Supply Chain Coordinator: Arnav Barnes MD #### CDP #### [facility] [address] [place] [address] ( Supply Chain Coordinator: Анна Biswas MD Monocytes (Bld) [#/Vol] 0.51 10*3/uL Normal 0.00-1.00 [facility] Comment on above: Performed By: #### B 12FOL, VD25 #### [address] [id number] Supply Chain Coordinator: Arnav Barnes MD #### CDP #### [facility] [address] [place] [address] Supply Chain Coordinator: Анна Biswas MD Monocytes/100 WBC (Bld) 10 % High 5-9 [facility] Comment on above: Performed By: #### B 12FOL, VD25 #### [address] [id number] Supply Chain Coordinator: Arnav Barnes MD #### CDP ####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 on above: Order Comment: No: D o not add to previous draw Performed By: #### 5 0103 #### [facility] [address] [place] [address], [facility] Lymphocytes (Bld) [#/Vol] 1.6 10*3/uL Normal 1.2-4.0 The [facility] Comment on above: Order Comment: No: D o not add to previous draw Performed By: #### 5 0103 #### [facility] [address] [place] [id number], [facility] Lymphocytes/100 WBC (Bld) 23.4 % Normal 20.0-45.0 The [facility] Comment on above: Order Comment: No: D o not add to previous draw Performed By: #### 5 0103 #### [facility] [address] [place] [address], [place] MCH (RBC) [Entitic mass] 32.7 pg Normal 27.0-33.0 The [facility] Comment on above: Order Comment: No: D o not add to previous draw Performed By: #### 5 0103 #### [facility] [address] [place] [address], [place] MCHC (RBC) [Mass/Vol] 35.5 g/dL High 32.0-35.0 The [facility] Comment on above: Order Comment: No: D o not add to previous draw Performed By: #### 5 0103 #### [facility] [address] [place] [address], [facility] MCV (RBC) [Entitic vol] 92.3 fL Normal 82.0-98.0 T he [facility] Comment on above: Order Comment: No: D o not add to previous draw Performed By: #### 5 0103 #### [facility] [address] [place] [address], [facility] Monocytes (Bld) [#/Vol] 0.7 10*3/uL Normal 0.1-1.0 The [facility] Comment on above: Order Comment: No: D o not add to previous draw Performed By: #### 5 0103 #### [facility] [address] [address], [facility] MONOS 10.4 % Normal 5.0-12.0 The [facility] Comment on above: Order Comment: No: D o not add to previous draw Performed By: #### 5 0103 #### [facility] [address] [place] [address], [facility] Neutrophils/100 WBC (Bld) 64.8 % Normal 40.0-72.0 The [facility] Comment on above: Order Comment: No: D o not add to previous draw Performed By: #### 5 0103 #### [facility] [address] [place] [address], [facility] Nucleated RBC/100 WBC (Bld) [Ratio] 0 % Normal 0-0 The [facility] Comment on above: Order Comment: No: D o not add to previous draw Performed By: #### 5 0103 #### [facility] [address] [place] [id number], [facility] PLAT CNT 197 10*3/uL Normal 150-[address] [facility] Comment on above: Order Comment: No: D o not add to previous draw Performed By: #### 5 0103 #### [facility] [address] [place] [address], [place] RBC (Bld) [#/Vol] 3.91 10*6/uL Low 4.20-5.70 The [facility] Comment on above: Order Comment: No: D o not add to previous draw Performed By: #### 5 0103 #### [facility] [address] [place] [address], [place] WBC (Bld) [#/Vol] 6.71 10*3/uL Normal 4.00-10.60 The [facility] Comment on above: Order Comment: No: D o not add to previous draw Performed By: #### 5 0103 #### [facility] [address] [place] [address], [place] LIVER BATTERYon 06-26-2021 Albumin [Mass/Vol] 3.5 g/dL Normal 3.5-5.7 [facility] Comment on above: Order Comment: No: D o not add to previous draw Performed By: #### 0 0071, 85128, 59747 #### [facility] [address] [place] [address], [place] ALKALINE PHOSPH 40 IU/L Normal 34-104 The [facility] Comment on above: Order Comment: No: D o not add to previous draw Performed By: #### 0 0071, 52872, 46152 #### [facility] [address] [place] [address], [place] ALT [Catalytic activity/Vol] 18 U/L Normal 7-52 The [facility] Comment on above: Order Comment: No: D o not add to previous draw Performed By: #### 0 0071, 58691, 52174 #### [facility] [address] [place] [address], [place] AST [Catalytic activity/Vol] 15 U/L Normal 13-39 The [facility] Comment on above: Order Comment: No: D o not add to previous draw Performed By: #### 0 0071, 23982, 71796 #### [facility] [address] [place] [address], [place] Bilirubin [Mass/Vol] 0.7 mg/dL Normal 0.3-1.0 The [facility] Comment on above: Order Comment: No: D o not add to previous draw Performed By: #### 0 0071, 78669, 70743 #### [facility] [address] [place] [address], [place] Bilirubin.direct [Mass/Vol] 0.2 mg/dL Normal 0.0-0.2 The [facility] Comment on above: Order Comment: No: D o not add to previous draw Performed By: #### 0 0071, 14710, 76997 #### [facility] [address] [place] [address], [place] Protein [Mass/Vol] 6.1 g/dL Normal 6.0-8.3 The [facility] Comment on above: Order Comment: No: D o not add to previous draw Performed By: #### 0 0071, 54152, 84063 #### [facility] [address] [place] [address], [place] MONOSPOTon 06-26-2021 MONOSPOT Negative Normal NEGATIVE The [facility] Comment on above: Order Comment: No: D o not add to previous draw Performed By: #### 5 0608 #### [facility] [address] [place] [address], [place] PHOSPHORUS BLOODon Phosphate [Mass/Vol] 3.2 mg/dL Normal 2.5-5.0 The [facility] Comment on above: Order Comment: No: D o not add to previous draw Performed By: #### 0 0071, 27806, 26487 #### [facility] [address] ACTIVATED CLOTTING TIMEon ACTIVATED CLOTTING TIME 252 sec High 82-152 T he [facility] Comment on above: Performed By: #### 3 0739 #### [facility] [address] [place] [address], [facility] ACTIVATED CLOTTING TIME 245 sec High 82-152 T he [facility] Comment on above: Performed By: #### 3 0739 #### [facility] [address] ACTIVATED CLOTTING TIME 239 sec High 82-152 T he [facility] Comment on above: Performed By: #### 3 0739 #### [facility] [address] ACTIVATED CLOTTING TIME 265 sec High 82-152 T he [facility] Comment on above: Performed By: #### 3 0739 #### [facility] [address] APTTon 06-25-2021 aPTT Coag (Bld) [Time] 47.8 s High 25.0-35.0 Th e [facility] Comment on above: Result Comment: [...] PURPOSE. Performed By: #### 5 0608 #### [facility] [address] CBC COMPLETE BLOOD COUNTon 0 06-25-2021 Erythrocyte distribution width (RBC) [Ratio] 12.1 % Normal 11.5-15.0 The [facility] Comment on above: Order Comment: No: D o not add to previous draw Performed By: #### [id number] #### [facility] [address] [facility] [place] [address], [facility] Hematocrit (Bld) [Volume fraction] 37.5 % Low 39.0-50.0 The [facility] Comment on above: Order Comment: No: D o not add to previous draw Performed By: #### [id number] #### [facility] [address] [place] [address], [facility] Hemoglobin (Bld) [Mass/Vol] 13.3 g/dL Normal 13.0-17.0 The [facility] Comment on above: Order Comment: No: D o not add to previous draw Performed By: #### [id number] #### [facility] [address] [place] [address], [facility] MCH (RBC) [Entitic mass] 32.7 pg Normal 27.0-33.0 The [facility] Comment on above: Order Comment: No: D o not add to previous draw Performed By: #### [id number] #### [facility] [address] [place] [address], [facility] MCHC (RBC) [Mass/Vol] 35.5 g/dL High 32.0-35.0 The [facility] Comment on above: Order Comment: No: D o not add to previous draw Performed By: #### [id number] #### [facility] [address] [place] [address], [facility] MCV (RBC) [Entitic vol] 92.1 fL Normal 82.0-98.0 T [facility] Comment on above: Order Comment: No: D o not add to previous draw Performed By: #### [id number] #### [facility] [address] [facility] [place] [address], [facility] Nucleated RBC/100 WBC (Bld) [Ratio] 0 % Normal 0-0 The [facility] Comment on above: Order Comment: No: D o not add to previous draw Performed By: #### [id number] #### [facility] [address] [facility] [place] [address], [facility] PLAT CNT 197 10*3/uL Normal 150-[address] [facility] Comment on above: Order Comment: No: D o not add to previous draw Performed By: #### [id number] #### [facility] [address] [place] [address], [facility] RBC (Bld) [#/Vol] 4.07 10*6/uL Low 4.20-5.70 The [facility] Comment on above: Order Comment: No: D o not add to previous draw Performed By: #### [id number] #### [facility] [address] [place] [address], [facility] WBC (Bld) [#/Vol] 9.86 10*3/uL Normal 4.00-10.60 The [facility] Comment on above: Order Comment: No: D o not add to previous draw Performed By: #### [id number] #### [facility] [address] COMP METABOLIC PANELon 06-25 Albumin [Mass/Vol] 3.7 g/dL Normal 3.5-5.7 [facility] Comment on above: Order Comment: No: D o not add to previous draw Performed By: #### [id number] #### [facility] [address] [facility] [place] [address], [facility] ALKALINE PHOSPH 39 IU/L Normal 34-104 [facility] Comment on above: Order Comment: No: D o not add to previous draw Performed By: #### 0 [id number] #### [facility] [address] [place] [address], [facility] ALT [Catalytic activity/Vol] 22 U/L Normal 7-52 [facility] Comment on above: Order Comment: No: D o not add to previous draw Performed By: #### 0 [id number] #### [facility] [address] [place] [address], [place] AST [Catalytic activity/Vol] 15 U/L Normal 13-39 The [facility] Comment on above: Order Comment: No: D o not add to previous draw Performed By: #### 0 [id number] #### [facility] [address] [place] [address], [place] Bilirubin [Mass/Vol] 0.5 mg/dL Normal 0.3-1.0 The [facility] Comment on above: Order Comment: No: D o not add to previous draw Performed By: #### 0 [id number] #### [facility] [address] [place] [address], [place] Calcium [Mass/Vol] 8.9 mg/dL Normal 8.6-10.3 [facility] Comment on above: Order Comment: No: D o not add to previous draw Performed By: #### 0 [id number] #### [facility] [address] [place] [address], [place] Chloride [Moles/Vol] 104 mmol/L Normal 98-107 The [facility] Comment on above: Order Comment: No: D o not add to previous draw Performed By: #### 0 [id number] #### [facility] [address] [place] [address], [place] CO2 [Moles/Vol] 25 mmol/L Normal 21-31 The [facility] Comment on above: Order Comment: No: D o not add to previous draw Performed By: #### 0 [id number] #### [facility] [address] [place] [address], [place] Creatinine [Mass/Vol] 0.73 mg/dL Normal 0.70-1.30 The [facility] Comment on above: Order Comment: No: D o not add to previous draw Performed By: #### 0 [id number] #### [facility] [address] [place] [address], [place] GFR/1.73 sq M.predicted among blacks MDRD (S/P/Bld) [Vol rate/Area] mL/min/{1.73_m2} Normal >60 The [facility] Comment on above: Order Comment: No: D o not add to previous draw Result Comment: Calc ulation may not be valid for patients over 70 years Performed By: #### 0 [id number] #### [facility] [address] [place] [address], [place] GFR/1.73 sq M.predicted among non-blacks MDRD (S/P/Bld) [Vol rate/Area] mL/min/{1.73_m2} Normal >60 The [facility] Comment on above: Order Comment: No: D o not add to previous draw Result Comment: Calc ulation may not be valid for patients over 70 years Performed By: #### 0 [id number] #### [facility] [address] [place] [address], [place] Glucose [Mass/Vol] 115 mg/dL High 70-100 The [facility] Comment on above: Order Comment: No: D o not add to previous draw Performed By: #### 0 [id number] #### [facility] [address] [place] [address], [place] Potassium [Moles/Vol] 3.8 mmol/L Normal 3.5-5.1 The [facility] Comment on above: Order Comment: No: D o not add to previous draw Performed By: #### 0 [id number] #### [facility] [address] [place] [address], [place] Protein [Mass/Vol] 6.4 g/dL Normal 6.0-8.3 [facility] Comment on above: Order Comment: No: D o not add to previous draw Performed By: #### 0 [id number] #### [facility] [address] [place] [address], [place] Sodium [Moles/Vol] 135 mmol/L Low 136-145 The [facility] Comment on above: Order Comment: No: D o not add to previous draw Performed By: #### 0 0121 #### [facility] [address] Urea nitrogen [Mass/Vol] 14 mg/dL Normal 7-25 The [facility] Comment on above: Order Comment: No: D o not add to previous draw Performed By: #### 0 [id number] #### [facility] [address] PROTHROMBIN TIMEon 2 INR Coag (PPP) [Relative time] 1.09 {INR} Normal 0.91-1.16 The [facility] Comment on above: Result Comment: [...] 1995;[id number]. Performed By: #### [id number] #### [facility] [address] [place] [address], [facility] PT Coag (PPP) [Time] 14.1 s Normal 12.3-14.8 The [facility] Comment on above: Result Comment: ALL RESULTS MUST BE INTERPRETED WITH RESPECT TO BLOOD DRAWING ARTIFACT OR DILUTION ERROR OF ANTICOAGULANT AT THE TIME OF SAMPLING. Performed By: #### [id number] #### [facility] [address] MRI BRAIN WO CONTRASTOrdered By: Candace Burleson on 03-29-2021 Mild cerebral atroph y with minimal small vessel ischemic changes of the supratentorial white matter. [employer] Phone: EXAM: MRI BRAIN WO CONTRAST HISTORY: [...] the paranasal sinuses and mastoid air cells. [employer] Phone: Kenneth, [facility] Incoming Radiant Results From [employer] - 03/29/2021 3:13 PM EDT EXAM: MRI [...] ischemic changes of the supratentorial white matter. [employer] Phone: [employer] Phone: Basic Metabolic PanelOrdered By: Candace Burleson on 10-22-2020 Anion gap [Moles/Vol] 8 mmol/L Low 9 - 17 mmol/L [employer] Phone: Calcium [Mass/Vol] 9.3 mg/dL 8.6 - 10. 4 mg/dL [employer] Phone: Chloride [Moles/Vol] 103 mmol/L 98 - 10 7 mmol/L [employer] Phone: CO2 [Moles/Vol] 27 mmol/L 20 - 31 mmol/L [employer] Phone: Creatinine [Mass/Vol] 0.79 mg/dL 0.70 - 1.20 mg/dL [employer] Phone: GFR >60 >60 mL/min [employer] Phone: GFR Non- >60 >60 mL/min [employer] Phone: GFR/1.73 sq M.predicted MDRD (S/P/Bld) [Vol rate/Area] [employer] Phone: Comment on above: Average GFR for 70 o r more years old: 75 mL/min/1.73sq m Chronic Kidney Disease: <60 mL/min/1.73sq m Kidney failure: <15 mL/min/1.73sq m eGFR calculated using average adult body mass. Additional eGFR calculator available at: http://www.Xapo.Waterplay[employer]/multiple_crcl_2012.htm GFR/1.73 sq M.predicted MDRD (S/P/Bld) [Vol rate/Area] NOT REPORTED [employer] Phone: Glucose [Mass/Vol] 111 mg/dL High 70 - 99 mg/dL [employer] Phone: Interpretation and review of laboratory results Abnormal [employer] Phone: Potassium [Moles/Vol] 4.1 mmol/L 3.7 - 5.3 mmol/L [employer] Phone: Sodium [Moles/Vol] 138 mmol/L 135 - 144 mmol/L [employer] Phone: Urea nitrogen (BldV) [Mass/Vol] 19 mg/dL 8 - 23 mg/dL [employer] Phone: Urea nitrogen/Creatinine (Bld) [Mass ratio] 24 High [employer] Work Phone: CBC Auto DifferentialOrdered By: Candace Burleson on 10-22-2020 Absolute [employer]os # 0.10 [email or web address] [facility] Work Phone: Absolute Immature Granulocyte NOT REPORTED [employer] Work Phone: Absolute Lymph # 1.70 [employer] Work Phone: Absolute [place] # 0.50 [email or web address] [facility] Work Phone: Basophils (Bld) [#/Vol] 0.00 10*3/uL [employer] Work Phone: Basophils/100 WBC (Bld) 1 % 0 - 2 % [employer] Work Phone: Differential Type YES [email or web address] [facility] Work Phone: Eosinophils/100 WBC (Bld) 1 % 0 - 5 % [employer] Work Phone: Hematocrit (Bld) [Volume fraction] 43.1 % 41 - 53 % [employer] Work Phone: Hemoglobin.gastrointest inal spec 1 Ql (Stl) 14.6 g/dL 13.5 - 17.5 g/dL [employer] Phone: Immature Granulocytes NOT REPORTED 0 % M [employer] Work Phone: Interpretation and review of laboratory results Abnormal [employer] Phone: Lymphocytes/100 WBC (Bld) 33 % 13 - 44 % [employer] Phone: MCH (RBC) [Entitic mass] 32.8 pg 26 - 34 pg [employer] Phone: MCHC (RBC) [Mass/Vol] 33.9 g/dL 31 - 3 7 g/dL [employer] Phone: MCV (RBC) [Entitic vol] 96.6 fL 80 - 100 fL [employer] Phone: Monocytes/100 WBC (Bld) 9 % 5 - 9 % [employer] Phone: NRBC Automated NOT REPORTED per 100 WBC [facility] Work Phone: Platelet distribution width (Bld) [Ratio] 13.1 % 12.1 - 15.2 % [employer] Phone: Platelet Estimate NOT REPORTED [employer] Phone: Platelet mean volume (Bld) [Entitic vol] NOT REPORTED 6.0 - 12.0 fL [employer] Phone: Platelets (Bld) [#/Vol] 241 10*3/uL [employer] Phone: RBC (Bld) [#/Vol] 4.46 10*6/uL Low 4.5 - 5.9 m/uL [facility] Phone: RBC (Bld) [#/Vol] NOT REPORTED [facility] Phone: Segmented neutrophils/100 WBC (Bld) 56 % 39 - 75 % [employer] Phone: Segs Absolute 2.90 [employer] Work Phone: WBC (Bld) [#/Vol] 5.1 10*3/uL [employer] Phone: WBC (Bld) [#/Vol] NOT REPORTED [employer] Phone: [employer] Phone: Hepatic Function PanelOrdere d By: Candace Burleson on 10-22-2020 Albumin [Mass/Vol] 4.2 g/dL 3.5 - 5.2 g/dL [employer] Phone: Albumin/Globulin Ratio NOT REPORTED [employer] Phone: ALP (Bld) [Catalytic activity/Vol] 52 U/L 40 - 129 U/L [employer] Phone: ALT [Catalytic activity/Vol] 28 U/L 5 - 41 U/L [employer] Phone: AST [Catalytic activity/Vol] 23 U/L <40 [employer] Phone: Bilirubin [Mass/Vol] 0.33 mg/dL 0.30 - 1.20 mg/dL [employer] Phone: Bilirubin, Indirect CANNOT BE CALCULATED 0.00 - 1.00 mg/dL [employer] Phone: Bilirubin.indirect [Mass/Vol] mg/dL <0.31 mg/dL [employer] Phone: Free PSA/Total PSA [Mass fraction] 7.0 g/dL 6.4 - 8.3 g/dL [employer] Phone: Globulin NOT REPORTED 1.5 - 3.8 g/dL [employer] Phone: Lipid PanelOrdered By: Candace Burleson on 10-22-2020 Cholesterol [Mass/Vol] 145 mg/dL <200 [employer] Phone: Comment on above: Cholesterol Guidelines: <200 Desirable 200-240 Borderline >240 Undesirable Cholesterol in HDL [Mass/Vol] 54 mg/dL >40 [employer] Phone: Comment on above: HDL Guidelines: <40 Undesirable 40-59 Borderline >59 Desirable Cholesterol in LDL [Mass/Vol] 85 mg/dL 0 - 130 mg/dL [employer] Phone: Comment on above: LDL Guidelines: <100 Desirable 100-129 Near to/above Desirable 130-159 Borderline >159 Undesirable Direct (measured) LDL and calculated LDL are not interchangeable tests. Cholesterol in VLDL [Mass/Vol] NOT REPORTED 1 - 30 mg/dL [employer] Phone: Cholesterol.total/Ninoska sterol in HDL [Mass ratio] 2.7 {ratio} <5 [facility] Phone: Triglyceride [Mass/Vol] 31 mg/dL <150 [facility] Phone: Comment on above: Triglyceride Guidelines: <150 Desirable 150-199 Borderline 200-499 High >499 Very high Based on AHA Guidelines for fasting triglyceride, March 2012. [employer] Phone: No Panel InformationOrdered By: Candace Burleson on 10-22-2020 [employer] Phone: PSA screeningOrdered By: Flora Burleson on 10-22-2020 [employer] Phone: Patient Fasting?Ordered By: Candace Burleson on 10-22-2020 Patient Fasting? yes [employer] Phone: [employer] Phone: TSH with ReflexOrdered By: Dori Burleson on 10-22-2020 TSH Qn 2.71 m[IU]/L [facility] Phone: Comprehensive Metabolic Pane ruth 08-25-2019 Albumin [Mass/Vol] 4.8 g/dL 3.5 - 5.2 g/dL [facility] [employer] [place], [place] Albumin/Globulin [Mass ratio] NOT REPORTED [facility] [employer] [place] ALP [Catalytic activity/Vol] 49 U/L 40 - 129 U/L [facility] [employer] [place], [place] ALT [Catalytic activity/Vol] 39 U/L 5 - 41 U/L [place], [place] Anion gap [Moles/Vol] 11 mmol/L 9 - 17 mmol/L [place], [place] AST [Catalytic activity/Vol] 27 U/L <40 [place] Bilirubin Ql (U) 0.76 mg/dL 0.3 - 1.2 mg/dL [place] Bun/Cre Ratio 17 [place], [place] Calcium [Mass/Vol] 10.5 mg/dL High 8.6 - 10. 4 mg/dL [place] Chloride [Moles/Vol] 99 mmol/L 98 - 10 7 mmol/L [place] CO2 [Moles/Vol] 28 mmol/L 20 - 31 mmol/L [place] Creatinine [Mass/Vol] 0.95 mg/dL 0.7 - 1.2 mg/dL [place] GFR >60 >60 mL/min [place], [place] GFR Non- >60 >60 mL/min [place] GFR/1.73 sq M predicted among non-blacks MDRD (S/P/Bld) [Vol rate/Area] [place], [place] Comment on above: Average GFR for 70 o r more years old: 75 mL/min/1.73sq m Chronic Kidney Disease: <60 mL/min/1.73sq m Kidney failure: <15 mL/min/1.73sq m eGFR calculated using average adult body mass. Additional eGFR calculator available at: http://www.Xapo.WaterplayUSA/multiple_crcl_2011.htm GFR/1.73 sq M predicted among non-blacks MDRD (S/P/Bld) [Vol rate/Area] NOT REPORTED [place], [place] Glucose [Mass/Vol] 111 mg/dL High 70 - 99 mg/dL [place] Interpretation and review of laboratory results Abnormal [place] Potassium [Moles/Vol] 4.6 mmol/L 3.7 - 5.3 mmol/L [place] Protein [Mass/Vol] 8.1 g/dL 6.4 - 8.3 g/dL [place] Sodium [Moles/Vol] 138 mmol/L 135 - 144 mmol/L [place] Urea nitrogen [Mass/Vol] 16 mg/dL 8 - 23 mg/dL [place] Lipid Panelon 08-25-2019 Cholesterol [Mass/Vol] 154 mg/dL <200 [place], [place] Comment on above: Cholesterol Guidelines: <200 Desirable 200-240 Borderline >240 Undesirable Cholesterol in HDL [Mass/Vol] 65 mg/dL >40 [place] Comment on above: HDL Guidelines: <40 Undesirable 40-59 Borderline >59 Desirable Cholesterol in LDL [Mass/Vol] 82 mg/dL 0 - 130 mg/dL [place] Comment on above: LDL Guidelines: <100 Desirable 100-129 Near to/above Desirable 130-159 Borderline >159 Undesirable Direct (measured) LDL and calculated LDL are not interchangeable tests. Cholesterol in VLDL [Mass/Vol] NOT REPORTED 1 - 30 mg/dL [place] Cholesterol.total/Ninoska sterol in HDL [Mass ratio] 2.4 {ratio} <5 [place] Triglyceride [Mass/Vol] 36 mg/dL <150 [place], [place] Comment on above: Triglyceride Guidelines: <150 Desirable 150-199 Borderline 200-499 High >499 Very high Based on AHA Guidelines for fasting triglyceride, March 2012. Patient Fasting?on 0 Patient Fasting? yes [place], [place] TSH with Reflexon 08-25-2019 TSH Qn 3.70 m[IU]/L [place], [place] VL DUP CAROTID BILATERALon 0 08-25-2019 [facility] Vascular Carotid Procedure Patient Name BORES Date of Study 08/25/2019 FAITH Grupo Date of 1945 Gender Male Age 74 year(s) Race Room Number [place] Corporate ID [id number] # Patient Acct [id number] # MR # [id number] Towel Cabinet Repairer MICHELLE Toscano Interpreting Physician Anusha Lopez Referring Candace Burleson Referring Physician Nurse WOOD GANG SAWYER Practitioner Procedure Type of Study: Cerebral: Carotid, [...] side. - Additional Measurements:ICAPSV/CC APSV 1.73.ICAEDV/CCAEDV 1.84. [facility] [place], [place] Kenneth, [facility] Incoming Cardio Results From [employer] - 08/25/2019 2:01 PM EDT [facility] Vascular Carotid Procedure Patient Name FIIL Date of Study 08/25/2019 FAITH Lombardo Date of 1945 Gender Male Age 74 year(s) Race Room Number [place] Corporate ID [id number] # Patient Acct [id number] # MR # [id number] Towel Cabinet Repairer MICHELLE Toscano Danelle Interpreting Physician Anusha Lopez Referring Candace Burleson Referring Physician Nurse WOOD GANG SAWYER Practitioner Procedure Type of Study: Cerebral: Carotid, [...] side. - Additional Measurements:ICAPSV/CC APSV 1.73.ICAEDV/CCAEDV 1.84. [place] Vitamin B12 & Folateon 08-24 Cobalamin (Vitamin B12) [Mass/Vol] 944 pg/mL 232 - 1245 pg/mL [place] Folate >20.0 >4.8 ng/mL [place] Vital Signs Date Time Vital Sign Value Performing Clinician David morales 01-11-2024 11:08-0400 Blood Pressure Location [facility] [place] [facility] 01-11-2024 11:08-0400 Body temperature 96.8 [degF] [facility] [place] [facility] 01-11-2024 11:08-0400 Diastolic blood pressure 72 mm[Hg] [facility] [place] [facility] 01-11-2024 11:08-0400 Heart rate 70 /min Humaira Orzech [facility] 01-11-2024 11:08-0400 Systolic blood pressure 128 mm[Hg] Humaira Orzech [facility] 12-31-2023 09:24-0400 Blood Pressure Location Makayla Galea [facility] 12-31-2023 09:24-0400 Diastolic blood pressure 76 mm[Hg] Makayla Galea [facility] 12-31-2023 09:24-0400 Heart rate 72 /min Makayla Galea [facility] 12-31-2023 09:24-0400 Respiratory rate 16 /min Makayla Galea [facility] 12-31-2023 09:24-0400 Systolic blood pressure 124 mm[Hg] Makayla Galea [facility] 06-06-2023 19:37-0500 Body temperature 99.2 [degF] FIREARMS INSTRUCTORAlexandra Burleson Work Phone: [facility] 06-06-2023 19:37-0500 Diastolic blood pressure 82 mm[Hg] FIREARMS INSTRUCTORAlexandra Burleson Work Phone: [facility] 06-06-2023 19:37-0500 Heart rate 76 /min FIREARMS INSTRUCTORAlexandra Burleson Work Phone: [facility] 06-06-2023 19:37-0500 Respiratory rate 22 /min FIREARMS INSTRUCTORAlexandra Burlesno Work Phone: [facility] 06-06-2023 19:37-0500 SaO2% (BldA) [Mass fraction] 99 % FIREARMS INSTRUCTORAlexandra Burleson Work Phone: [facility] 06-06-2023 19:37-0500 Systolic blood pressure 179 mm[Hg] FIREARMS INSTRUCTOR Candace Bree Work Phone: [facility] 06-06-2023 14:59-0500 Body height 185.42 cm FIREARMS INSTRUCTOR Candace Bree Work Phone: [facility] 06-06-2023 14:59-0500 Body weight 84.7 kg FIREARMS INSTRUCTOR Candace Bree Work Phone: [facility] 01-07-2023 10:31-0400 Diastolic blood pressure 118 mm[Hg] Chintan CHAVEZ [facility] 01-07-2023 10:31-0400 Heart rate 87 /min Chintan CHAVEZ [facility] 01-07-2023 10:31-0400 Systolic blood pressure 157 mm[Hg] Chintan CHAVEZ [facility] 04-15-2022 09:28-0500 Diastolic blood pressure 77 mm[Hg] FIREARMS INSTRUCTORAlexandra Rubalcava Bree Work Phone: [facility] 04-15-2022 09:28-0500 Heart rate 58 /min FIREARMS INSTRUCTORAlexandra Rubalcava Bree Work Phone: [facility] 04-15-2022 09:28-0500 Respiratory rate 18 /min FIREARMS INSTRUCTORAlexandra Burleson Work Phone: [facility] 04-15-2022 09:28-0500 SaO2% (BldA) [Mass fraction] 100 % FIREARMS INSTRUCTORAlexandra Burleson Work Phone: [facility] 04-15-2022 09:28-0500 Systolic blood pressure 125 mm[Hg] FIREARMS INSTRUCTORAlexandra Burleson Work Phone: [facility] 04-15-2022 07:33-0500 Body height 185.42 cm FIREARMS INSTRUCTORAlexandra Burleson Work Phone: [facility] 04-15-2022 07:33-0500 Body temperature 97.9 [degF] FIREARMS INSTRUCTOR Candace Burleson Work Phone: [facility] 04-15-2022 07:33-0500 Body weight 79.37 kg FIREARMS INSTRUCTOR Candace Burleson Work Phone: [facility] 01-13-2022 10:01-0400 Blood Pressure Location Chintan CHAVEZ [facility] 01-13-2022 10:01-0400 Diastolic blood pressure 83 mm[Hg] [facility] 01-13-2022 10:01-0400 Heart rate 81 /min [facility]intan CHAVEZ [facility] 01-13-2022 10:01-0400 Respiratory rate 16 /min [facility]intan CHAVEZ [facility] 01-13-2022 10:01-0400 Systolic blood pressure 129 mm[Hg] Chintan CHAVEZ [facility] Encounters Encounter Date Encounter Type Care Provider Facility Start: 01-11-2024 End: 01-11-2024 ambulatory Humaira Ragsdale Facility:[facility] Peralta Start: 01-11-2024 End: 01-11-2024 Patient encounter procedure Humaira X Jn [facility] Start: 01-06-2024 ambulatory CANDACE BURLESON Facility:[facility] Pavon Start: 01-02-2024 End: 01-02-2024 ambulatory Charles Kim Facility:CD:[id number] Start: 12-31-2023 End: 12-31-2023 ambulatory CANDACESAMANTHA BURLESON Facility:[facility] Start: 12-31-2023 End: 12-31-2023 Patient encounter procedure [facility] Stokes [facility]iterry [facility] Start: 12-30-2023 End: 12-30-2023 Evaluation and management of inpatient [facility] Start: 12-29-2023 End: 12-30-2023 Evaluation and management of inpatient [facility] Start: 12-21-2023 End: 12-21-2023 Evaluation and management of inpatient [facility] Start: 12-02-2023 End: 12-04-2023 ambulatory [facility] Start: 12-01-2023 End: 12-01-2023 ambulatory [facility] Start: 11-12-2023 End: 11-12-2023 ambulatory [facility] Start: 10-31-2023 ambulatory [facility] Start: 08-04-2023 End: 08-04-2023 ambulatory [facility] Start: 06-06-2023 End: 06-06-2023 Emergency department patient visit FIREAR[employer] INSTRUCTOR Candace Burleson Work Phone: [facility] Work Phone: Start: 04-27-2023 End: 04-27-2023 ambulatory [facility] Start: 03-16-2023 End: 03-16-2023 ambulatory [facility] Start: 01-07-2023 End: 01-07-2023 Patient encounter procedure Chintan CHAVEZ [facility] [place] Start: 08-26-2022 End: 08-26-2022 Patient encounter procedure Chintan CHAVEZ [facility] [place] Start: 08-12-2022 End: 08-13-[address] MORE TRAORE Facility:[facility] Start: 04-21-2022 End: 04-21-2022 Subsequent hospital visit by physician Candace Burleson [employer]AR[employer] INSTRUCTOR [employer] Work Phone: [facility] Comment on above: Mixed hyperlipidemia ; Bilateral carotid artery stenosis; Essential hypertension; History of alcoholism (HCC); Primary hypertension Start: 04-15-2022 End: 04-15-2022 Admission to same day surgery center FIREARMS INSTRUCTORAlexandra Burleson Work Phone: [facility] Start: 04-15-2022 End: 04-15-2022 ambulatory FIREARMS INSTRUCTORAlexandra Burleson Work Phone: [facility] Work Phone: Start: 04-11-2022 End: 04-11-2022 ambulatory FIREARMS INSTRUCTORAlexandra Burleson Work Phone: [facility] Work Phone: Start: 04-11-2022 End: 04-11-2022 Patient encounter procedure PORTER Burleson Work Phone: [facility]el[facility] Testing Start: 03-13-2022 End: 03-15-2022 Subsequent hospital visit by physician Tracy Additional Xray At [facility] Comment on above: Fall, initial encoun ter Start: 01-13-2022 End: 01-13-2022 Patient encounter procedure Chintan CHAVEZ [facility] [place] Start: 11-11-2021 End: 11-13-2021 Subsequent hospital visit by physician Tracy Additional X[facility] Comment on above: Fall, initial encoun ter; Acute midline low back pain without sciatica Start: 06-25-2021 End: 01-19-2022 Evaluation and management of inpatient PHYSICIAN UNKNOWN Facility:[facility] Start: 03-28-2021 End: 03-30-2021 Subsequent hospital visit by physician Brian Mri Scanner [facility] MRI Comment on above: Dizziness; Mild alcohol use disorder, in controlled environment; Bilateral carotid artery stenosis; Short-term memory loss Start: 10-22-2020 End: 10-22-2020 Subsequent hospital visit by physician Candace Burleson [employer] INSTRUCTOR [employer] Work Phone: [facility] Comment on above: Prostate cancer scre ening; Mixed hyperlipidemia; Essential hypertension; Thyroid disorder screening Start: 08-25-2019 End: 08-27-2019 Subsequent hospital visit by physician Tracy Vasc Us [facility] Comment on above: Dizziness; Smooth tongue; Screening for thyroid disorder; Essential hypertension; Pure hypercholesterolemia; Prostate cancer screening Dizziness; Essential hypertension Start: 08-22-2019 End: 08-22-2019 Subsequent hospital visit by physician Tracy Ekg [facility] E[facility] Comment on above: Dizziness; Essential hypertension; Pure hypercholesterolemia Dizziness Procedures Date Procedure Procedure Detail Performing Clinician Start: 12-29-2023 Carotid endarterectomy Makayla Chloe Start: 06-06-2023 Plain chest X-ray PORTER Burleson Work Phone: Start: 04-21-2022 Basic metabolic pane l calcium total Candace Burleson [employer] INSTRUCTOR [employer] Work Phone: Start: 04-21-2022 Lipid panel Candace cadena [employer] INSTRUCTOR [employer] Work Phone: Start: 04-21-2022 PATIENT FASTING? Candace Burleson [employer] INSTRUCTOR [employer] Work Phone: Start: 04-15-2022 Colonoscopy PORTER Burleson Work Phone: Start: 03-13-2022 Radex facial bones c omplete minimum 3 views Johnny Harris [employer]AR[employer] INSTRUCTOR - [employer] Work Phone: Start: 11-11-2021 Radex spine lumbosac ral minimum 4 views Candace Burleson [employer]AR[employer] INSTRUCTOR - [employer] Work Phone: Start: 03-28-2021 Mri brain brain stem w/o contrast material Candace Burleson [employer]AR[employer] INSTRUCTOR - [employer] Work Phone: Start: 10-22-2020 PSA screening Candace valverde [employer]AR[employer] INSTRUCTOR - [employer] Work Phone: Comment on above: The Nataliya ECLIA as say is used. Results obtained with different assay methods cannot be used interchangeably. Start: 10-22-2020 Basic metabolic pane l calcium total Candace Burleson [employer]AR[employer] INSTRUCTOR [employer] Work Phone: Start: 10-22-2020 Lipid panel Candace Medina Raheem ebs [employer]AR[employer] INSTRUCTOR - [employer] Work Phone: Start: 10-22-2020 PATIENT FASTING? Candace Burleson [employer]AR[employer] INSTRUCTOR - [employer] Work Phone: Start: 06-08-2020 Procedure on artery Paolo CHAVEZ Comment on above: carotid artery Start: 08-25-2019 Duplex scan extracra nial art compl bi study Candace Burleson Work Phone: Start: 08-25-2019 Assay of thyroid stimulating hormone tsh Candace Burleson Work Phone: Start: 08-25-2019 Comprehensive metabo lic panel Candace Burleson Work Phone: Start: 08-25-2019 Lipid panel Candace cadena Work Phone: Start: 08-25-2019 PATIENT FASTING? Candace [...] prostate Makayla Galea Start: 08-05-2018 Cystoscopy Makayla Gal ea Colonoscopy Chintan CHAVEZ SARS Antigen (LFIA) FIREARMS INSTRUCTOR Flora Burleson Work Phone: Structure of bursa ( body structure) Chintan CHAVEZ Tonsillectomy Chintan CHAVEZ Plan of Treatment Date Care Activity Detail Author Start: 01-27-2024 ambulatory Ambulatory Facility:[facility] Start: 12-15-2023 DTaP/Tdap/Td vaccine (2 - Td or Tdap) DTaP/Tdap/Td vaccine (2 - Td or Tdap) [facility] Start: 12-15-2023 DTaP/Tdap/Td vaccine (2 - Td) DTaP/Tdap/Td vaccine (2 - Td) [facility] [place] Start: 04-27-2023 End: 04-27-2023 Patient encounter procedure 04/27/2023 Office Visit Family Candace Artis, [employer]ARMS INSTRUCTOR [employer] [place] [address] [facility] Start: 04-22-2023 Annual Wellness Visi t (AWV) Annual Wellness Visit (AWV) [facility] [employer] [facility] Start: 04-21-2023 Lipid panel Lipids [facility] Start: 11-11-2022 Depression Screen Depression Screen [facility] Start: 11-11-2022 Lipid panel Lipids [employer] [facility] Start: 10-20-2022 End: 10-20-2022 Patient encounter procedure 10/20/2022 Office Visit Family Candace Artis, FIREARMS INSTRUCTOR - [employer] [address] [place] [address] [facility] Start: 04-29-2022 COVID-19 Vaccine (4 - Booster for Pfizer series) COVID-19 Vaccine (4 - Booster for Pfizer series) [facility] Start: 04-15-2022 [facility] Start: 01-06-2022 Influenza vaccination Flu vaccine (# 1) [facility] [employer] [facility] Start: 12-02-2021 End: 12-02-2021 Patient encounter procedure 12/02/2021 Office Visit Family Candace rAtis, FIREARMS INSTRUCTOR - [employer] [address] [place] [address] [facility] Start: 10-28-2021 End: 10-28-2021 Patient encounter procedure 10/28/2021 Office Visit Family Medicine Candcae Burleson, [employer]AR[employer] INSTRUCTOR - [employer] [address] [place] [address] [phone] [facility] Start: 10-23-2021 Annual Wellness Visi t (AWV) Annual Wellness Visit (AWV) [facility] [employer] Start: 10-22-2021 Creatinine measurement [facility] Phone: Start: 10-22-2021 Lipid panel Lipid screen [facility] Sales Phone: Start: 10-22-2021 Potassium monitoring [facility] monit [facility]: Start: 09-06-2021 Colon cancer screen colonoscopy Colon cancer screen colonoscopy [place] Start: 09-06-2021 Screening for malignant neoplasm of colon Colon cancer screen colonoscopy [facility] Phone: Start: 08-05-2021 COVID-19 Vaccine (3 - Booster for Pfizer series) COVID-19 Vaccine (3 - Booster for Pfizer series) [facility] [employer] Start: 04-29-2021 End: 04-29-2021 Patient encounter procedure 04/29/2021 Office Visit Family Medicine Candace Burleson, FIREARMS INSTRUCTOR - [employer] [address] [place] [address] [phone] [facility] Start: 02-06-2021 Influenza vaccination [facility] [email or web address] Phone: Start: 08-24-2020 Creatinine monitoring Creatinine mon itoring [place] Start: 08-24-2020 Lipid screen Lipid screen [place], [place] Start: 08-24-2020 Potassium monitoring Potassium monit [place], [place] Start: 08-17-2020 COVID-19 Vaccine (2 - Pfizer 2-dose series) COVID-19 Vaccine (2 - Pfizer 2-dose series) [facility] Work Phone: Start: 09-05-2019 End: 09-05-2019 Office Visit 09/05/2019 Office Visit Family Medicine Candace Burleson, FIREARMS INSTRUCTOR - [employer]ER [address] [place] [id number] [phone] [facility] Start: 08-25-2019 End: 08-25-2019 Appointment 08/25/2019 Appointment Vascular Lab [facility] Start: 04-25-2019 Creatinine monitoring Creatinine mon itoring [place] Start: 04-25-2019 Lipid screen Lipid screen [place] Start: 04-25-2019 Potassium monitoring Potassium monit [place]ing [place] Start: 04-14-2019 Pneumococcal 65+ years Vaccine (2 of 2 - PPSV23) Pneumococcal 65+ years Vaccine (2 of 2 - PPSV23) [place] Start: 02-06-2019 Influenza vaccination Flu vaccine (# 1) [place] Start: 11-24-2018 Annual Wellness Visi t (AWV) Annual Wellness Visit (AWV) [place] Start: 01-01-2017 Pneumococcal 65+ years Vaccine (2 - PPSV23 or PCV20) Pneumococcal 65+ years Vaccine (2 - PPSV23 or PCV20) MEGAN SANCHEZ [facility] EKG 12 Lead EKG 12 Lead ECG Routine Dizziness Essential hypertension Pure hypercholesterolemia 08/22/2019 2:07 PM EDT [place] End: 08-22-2019 Holter Monitor 48 Hour Holter Monitor 48 Hour Cardiac Services Routine Dizziness 1 Occurrences starting 08/22/2019 until 08/22/2019 [place] Comment on above: 1 Occurrences starti ng 08/22/2019 until 08/22/2019 Patient Education [facility] ED/OP COV ID-19 Discharge Instructions [facility] Work Phone: Patient referral [facility] Work Phone: Immunizations Immunization Date Immunization Notes Care Provider Fa cilisangita 04-07-2023 influenza virus vacc ine, unspecified formulation Humaira Ragsdale [facility] Comment on above: Result Comment: 2023: VIS DATE: 01/11/2021 04-21-2022 pneumococcal polysaccharide vaccine, 23 valent Candace Burleson [employer]REARMS INSTRUCTOR - [employer] Work Phone: [employer] Work Phone: Comment on above: Result Comment: 2022: VIS DATE: 04/06/2019 03-27-2022 influenza virus vacc ine, unspecified formulation Chintan CHAVEZ [facility] 03-27-2022 Influenza, FLUZONE ( age 65 y+), High Dose, 0.7mL Candace Burleson FIREARMS INSTRUCTOR - [employer] Work Phone: [employer] 03-27-2022 SARS-CoV-2 (COVID-19 ) [id number] Chintan CHAVEZ [facility] 12-27-2021 SARS-CoV-2 mRNA (nxgshhwqfee-tgsp-kxntzx e) vaccine Chintan Bosideng [facility] 04-01-2021 influenza virus vacc ine, unspecified formulation Chintan CHAVEZ [facility] Comment on above: Result Comment: 2022: VIS DATE: 01/11/2021 04-01-2021 Influenza, Quadv, adjuvanted, 65 yrs +, IM, PF (Fluad) Mwh Mw [facility] [employer] Work Phone: 03-05-2021 SARS-CoV-2 (COVID-19 ) mRNA BNT-162b2 vax Chintan CHAVEZ [facility] Comment on above: Result Comment: 2022: [id number] 07-27-2020 COVID-19, Pfizer, PF , 30mcg/0.3mL Candace Burleson FIREARMS INSTRUCTOR - [employer] Work Phone: [facility] Work Phone: 07-06-2020 SARS-CoV-2 (COVID-19 ) mRNA BNT-162b2 vax Chintan CHAVEZ [facility] Comment on above: Result Comment: 2022: [id number] 03-26-2020 influenza virus vacc ine, unspecified formulation Chintan CHAVEZ [facility] 04-12-2019 influenza virus vacc ine, unspecified formulation Chintan CHAVEZ [facility] 09-08-2018 zoster vaccine recombinant Candace Burleson [facility] 06-30-2018 zoster vaccine recombinant Candace Burleson [facility] 04-20-2018 influenza virus vacc ine, unspecified formulation Chintan CHAVEZ [facility] 04-20-2018 influenza, high dose seasonal, preservative-free Candace Burleson [facility] 01-02-2016 pneumococcal conjuga te vaccine, 13 valent Candace [place] 05-10-2015 influenza virus vacc ine, unspecified formulation Chintan CHAVEZ [facility] 05-10-2015 influenza virus vacc ine, whole virus Candace [facility] [place] 04-14-2014 pneumococcal conjuga te vaccine, 7 valent Candace Burleson [facility] 04-14-2014 pneumococcal polysaccharide vaccine, 23 valent Candace [facility] 12-14-2013 tetanus toxoid, redu siva diphtheria toxoid, and acellular pertussis vaccine, adsorbed Candace [facility] 10-03-2013 zoster vaccine, live Candace Burleson [place] Payers Date Payer Category Payer Self-pay [id number] 2023 Unknown [id number] 2014 Medicare MEDICARE DONTRELL D MEDICARE xxxxxxxxxxx 2014-Present [phone] [place] [address] xxxxxxxxxxx [id number] 2014 Unknown [employer] NATIONAL [id number] 2014-Present [address] [address] [place] [address] [id number]. [id number] 2014 Unknown [employer] [facility] [id number] 2014-Present [address] [address] [place] [address] [id number]. [id number] 1959 Medicare [id number]. [id number] 1959 Unknown [id number] [id number].3. [id number] 1945 Unknown [id number] 2.16.840.1.868120.3.579.2.647 1945 Unknown [id number] 2.16.840.1.727661.3.579.2.593 1945 Unknown [id number] 2.16.840.1.338748.3.579.2.174 1945 Unknown [id number] 2.16.840.1.727029.3.579.2.174 1945 Unknown [id number] 2.16.840.1.970949.3.579.2.174 1945 Unknown [id number] 2.16.840.1.007577.3.579.2.174 1945 Unknown [id number] 2.16.840.1.110565.3.579.2.1286 1945 Unknown [id number] 2.16.840.1.499306.3.579.2.128 1945 Unknown [id number] 2.16.840.1.509723.3.579.2.1286 1945 Unknown [id number] 2.16.840.1.096575.3.579.2.128 1945 Unknown [id number] 2.16.840.1.861084.3.579.2.128 1945 Unknown [id number] 2.16.840.1.831930.3.579.2.128 1945 Unknown [id number] 2.16.840.1.304721.3.579.2.727 1945 Unknown [id number] 2.16.840.1.598764.3.579.2.727 1945 Unknown [id number] 2.16.840.1.460278.3.579.2.727 1945 Unknown [id number] 2.16.840.1.463320.3.579.2.727 1945 Unknown [id number] 2.16.840.1.327424.3.579.2.727 Medicare Medicare Outpatient [id number] Unknown Regular Insurance [id number] Unknown [id number] Social History Date Type Detail Facility Start: 08-22-2019 End: 01-11-2024 Tobacco smoking status NHIS Former smoker [place] History of tobacco use Pipe Sm[place] Start: 08-22-2019 End: 04-21-2022 Alcohol intake Current drinker of alcohol (finding) [place] Start: 08-22-2019 End: 11-11-2021 History SDOH Food Worry 1 [place] Start: 08-22-2019 End: 04-21-2022 History SDOH Transport Med 2 [place] Start: 11-11-2012 Alcohol Comment daily/wine [place], [place] Start: 1945 Sex Assigned At Not on file M [place] Start: 10-22-2020 End: 03-13-2022 Tobacco use and exposure Never used [employer] Start: 10-22-2020 End: 04-21-2022 Alcohol intake [facility] [email or web address] Phone: Start: 10-22-2020 End: 11-11-2021 History SDOH Financial 5 [facility] [employer] Work Phone: Tobacco smoking status Never [facility] Sex Assigned At Male [facility] History of tobacco use Current smoker [facility] [employer] Work Phone: History of tobacco use Cigarette Smoker B ON [employer] Work Phone: Start: 03-13-2020 End: 06-06-2023 Tobacco smoking status NHIS Never smoked tobacco (finding) [facility] Start: 1945 Sex Assigned At Male [facility] Start: 04-21-2022 History SDOH Physica l Activity DPW 6 [facility] [employer] Work Phone: Start: 04-21-2022 History SDOH Physica l Activity MPS 4 [facility] Work Phone: Medical Equipment Procedure Code Equipment Code Equipment Origin al Text Equipment Identifier Dates Repair, hernia, inguinal, with mesh [id number] FDA Start: 03-13-2020 Repair, hernia, inguinal, with mesh [id number] FDA Start: 03-13-2020 Repair, hernia, inguinal, with mesh [id number] FDA Start: 03-13-2020 Goals Date Patient Goal Desired Activity /State Functional Status Date Assessment Result Facility 01-11-2024 Functional Status N/A [facility] 12-31-2023 Functional Status N/A [facility] 01-07-2023 Functional Status N/A [facility] 01-13-2022 Functional Status No [facility] Clinical Notes 06-30-2021 to 01-11-2024 Note Date & Type Note Facility 01-11-2024 Hospital Discharge instructions Patient Education 01/11/2024 11:38:30 Scrotal Swelling Scrotal Swelling Scrotal swelling is a condition in which the sac of skin that contains the testicles, blood vessels, and structures that help deliver sperm and semen (scrotum) is enlarged or swollen. This can happen on one or both sides of the scrotum. Many things can cause the scrotum to enlarge or swell, including: Fluid around the testicle (hydrocele). A weakened area in the muscles around the groin (hernia). An enlarged vein around the testicle. An injury. An infection. Certain medical treatments. Certain medical conditions, such as congestive heart failure. A recent genital surgery or procedure. A twisting of the spermatic cord that cuts off blood supply (testicular torsion). Testicular cancer. Scrotal swelling can happen along with scrotal pain. Follow these instructions at home: Activity Rest as told by your health care provider. The best position is to lie down. Do not lift anything that is heavier than 5 lb (2.3 kg), or the limit that you are told, until your health care provider says that it is safe. Avoid sexual activity until your health care provider says that it is safe. General instructions Take oluz-blc-ljrpufg and prescription medicines only as told by your health care provider. Perform a monthly self-exam of the scrotum and penis. Feel for changes. Ask your health care provider how to perform a monthly self-exam if you are unsure. Keep all follow-up visits. This is important. Managing pain, stiffness, and swelling If directed, put ice on the affected area. To do this: ?Put ice in a plastic bag. ?Place a towel between your skin and the bag. ?Leave the ice on for 20 minutes, 2 3 times a day. ?Remove the ice if your skin turns bright red. This is very important. If you cannot feel pain, heat, or cold, you have a greater risk of damage to the area. Place a rolled towel under your testicles for support or use underwear with a supportive pouch. Wear an athletic support cup or scrotal support, such as a jock strap, for comfort. Contact a health care provider if: You have sudden pain that is persistent and does not improve. You have a heavy feeling or notice fluid in the scrotum. You have pain or burning while urinating. You have blood in your urine or semen. You feel a lump around the testicle. You notice that one testicle is larger than the other. Keep in mind that a small difference in size is normal. You have a persistent dull ache or pain in your groin or scrotum. Get help right away if: The pain does not go away. The pain becomes severe. You have a fever or chills. You have pain or vomiting that cannot be controlled. One or both sides of the scrotum are very red and swollen. There is redness spreading upward from your scrotum to your abdomen or downward from your scrotum to your thighs. Summary Scrotal swelling is a condition in which the sac of skin that contains the testicles, blood vessels, and structures that help deliver the sperm and semen (scrotum) is enlarged or swollen. Many things can cause the scrotum to swell, including fluid around the testicle (hydrocele), a weakened area in the muscles around the groin (hernia), and an enlarged vein around the testicle. Icing the scrotum or using underwear with a supportive pouch may help reduce swelling and pain. Contact a health care provider if you develop scrotal pain that is sudden and persistent, you have pain while urinating, you feel a lump around the testicle, or you notice blood in your urine or semen. Get help right away if you have uncontrolled pain or vomiting, a very red and swollen scrotum, or a fever or chills. This information is not intended to replace advice given to you by your health care provider. Make sure you discuss any questions you have with your health care provider. Document Revised: 01/22/2021 Document Reviewed: 01/22/2021 Results [employer] Patient Education 2022 [employer]. 01/11/2024 11:38:16 Benign Prostatic Hyperplasia Benign Prostatic Hyperplasia Benign [...] urethra. Follow these instructions at home: Take lneh-uhm-lpvxolv and prescription medicines only as told by [...] provider. Document Revised: 12/11/2021 Document Reviewed: 12/11/2021 Results [employer] Patient Education 2022 [employer]. Follow Up Care 01/11/2024 08:12:05 With:DHAVAL Ragsdale APRN, Humaira Ayon, ELIEZER, URL Address: When: Unknown Comments:Pt to keep follow up on 01/27/24 w/Dr. Chavez [facility] 01-11-2024 Note Patient Education Urology Scrotal Swelling Scrotal swelling is a condition in which the sac of skin that contains the testicles, blood vessels, and structures that help deliver sperm and semen (scrotum) is enlarged or swollen. This can happen on one or both sides of the scrotum. Many things can cause the scrotum to enlarge or swell, including: ? Fluid around the testicle (hydrocele). ? A weakened area in the muscles around the groin (hernia). ? An enlarged vein around the testicle. ? An injury. ? An infection. ? Certain medical treatments. ? Certain medical conditions, such as congestive heart failure. ? A recent genital surgery or procedure. ? A twisting of the spermatic cord that cuts off blood supply (testicular torsion). ? Testicular cancer. Scrotal swelling can happen along with scrotal pain. Follow these instructions at home: Activity ? Rest as told by your health care provider. The best position is to lie down. ? Do not lift anything that is heavier than 5 lb (2.3 kg), or the limit that you are told, until your health care provider says that it is safe. ? Avoid sexual activity until your health care provider says that it is safe. General instructions ? Take avfa-qbx-hwrvybm and prescription medicines only as told by your health care provider. ? Perform a monthly self-exam of the scrotum and penis. Feel for changes. Ask your health care provider how to perform a monthly self-exam if you are unsure. ? Keep all follow-up visits. This is important. Managing pain, stiffness, and swelling ? If directed, put ice on the affected area. To do this: ? Put ice in a plastic bag. ? Place a towel between your skin and the bag. ? Leave the ice on for 20 minutes, 2?3 times a day. ? Remove the ice if your skin turns bright red. This is very important. If you cannot feel pain, heat, or cold, you have a greater risk of damage to the area. ? Place a rolled towel under your testicles for support or use underwear with a supportive pouch. ? Wear an athletic support cup or scrotal support, such as a jock strap, for comfort. Contact a health care provider if: ? You have sudden pain that is persistent and does not improve. ? You have a heavy feeling or notice fluid in the scrotum. ? You have pain or burning while urinating. ? You have blood in your urine or semen. ? You feel a lump around the testicle. ? You notice that one testicle is larger than the other. Keep in mind that a small difference in size is normal. ? You have a persistent dull ache or pain in your groin or scrotum. Get help right away if: ? The pain does not go away. ? The pain becomes severe. ? You have a fever or chills. ? You have pain or vomiting that cannot be controlled. ? One or both sides of the scrotum are very red and swollen. ? There is redness spreading upward from your scrotum to your abdomen or downward from your scrotum to your thighs. Summary ? Scrotal swelling is a condition in which the sac of skin that contains the testicles, blood vessels, and structures that help deliver the sperm and semen (scrotum) is enlarged or swollen. ? Many things can cause the scrotum to swell, including fluid around the testicle (hydrocele), a weakened area in the muscles around the groin (hernia), and an enlarged vein around the testicle. ? Icing the scrotum or using underwear with a supportive pouch may help reduce swelling and pain. ? Contact a health care provider if you develop scrotal pain that is sudden and persistent, you have pain while urinating, you feel a lump around the testicle, or you notice blood in your urine or semen. ? Get help right away if you have uncontrolled pain or vomiting, a very red and swollen scrotum, or a fever or chills. This information is not intended to replace advice given to you by your health care provider. Make sure you discuss any questions you have with your health care provider. Document Revised: 01/22/2021 Document Reviewed: 01/22/2021 Results [employer] Patient Education ? 2022 [employer]. Benign Prostatic Hyperplasia Benign prostatic hyperplasia (BPH) [...] enlarges away from the urethra, urine flow wi (more content not included)... [facility] 12-31-2023 Hospital Discharge instructions Patient Education 12/31/2023 [...] urethra. Follow these instructions at home: Take gksp-vsw-kzisrdg and prescription medicines only as told by [...] provider. Document Revised: 12/11/2021 Document Reviewed: 12/11/2021 Results [employer] Patient Education 2022 [employer]. Follow Up Care 12/31/2023 08:38:06 With:KATHY HILL, Chintan Mo, URL Address: [facility] [place] [id number]- When: Unknown Comments:Appointment has already been scheduled [facility] 12-31-2023 Note Patient Education Urology Benign Prostatic Hyperplasia Benign [...] Follow these instructions at home: ? Take epdh-xli-ualspbk and prescription medicines only as told by [...] better with treatment. ? You develop side effec (more content not included)... [facility] 08-04-2023 Note Patient here for 1 y [...] All other systems reviewed and are negative. [facility] 08-04-2023 Note Cardiovascular Medic ine [facility] SUBJECTIVE Chief Complaint Patient presents with [...] Comment: LDL Guideline (more content not included)... [facility] 01-07-2023 Hospital Discharge instructions Patient [...] urethra. Follow these instructions at home: Take gbdh-acd-opmykln and prescription medicines only as told by [...] provider. Document Revised: 12/11/2021 Document Reviewed: 12/11/2021 Results [employer] Patient Education 2022 [employer]. Follow Up Care 01/13/2022 10:26:06 With:KATHY HILL, Chintan Mo, URL Address: [facility] [employer] [address] [place] [id number]- When: Unknown [facility] 08-25-2022 Hospital Discharge instructions Patient Education 08/25/2022 [...] urethra. Follow these instructions at home: Take fpce-mms-lxrqugw and prescription medicines only as told by [...] 05/25/2006 Document Revised: 04/19/2019 Document Reviewed: 06/29/2017 Results [employer] Patient Education 2020 [employer]. Follow Up Care 08/18/2022 10:34:03 With:KATHY HILL, Chintan Mo, URL Address: [facility] [employer] [address] [place], [place] [id number]- When: Unknown [facility] 04-15-2022 Procedure note [facility] 01-13-2022 Hospital Discharge instructions Patient [...] Follow these instructions at home: Medicines Take rupv-mqc-zbefook and prescription medicines only as told by [...] 05/22/2001 Document Revised: 05/07/2018 Document Reviewed: 06/10/2017 Results [employer] Patient Education 2020 [employer]. Follow Up Care 01/14/2021 08:36:30 With:KATHY HILL, Chintan Mo, URL Address: [address] [place], [place] [id number]- When:Within 1 Year(s) [facility] 06-30-2021 Note MR#: [id number] I [facility] Pt. Name: Faith Olivier Admitted: [...] me. Date Dict: 06/30/2021/12:45 P/Luna Salinas M.S., [employer] Date Trans: 06/30/2021 08:59 P/mmo [id number] [facility] Evaluation + Plan note Future Appointments Appointment Date:01/14/2023 08:45:00 AM Scheduled Provider:Chintan CHAVEZ MD Location:[facility] Appointment Type:URO Office Visit [facility] Evaluation + Plan note Future Appointments Appointment Date:01/07/2023 10:15:00 AM Scheduled Provider:Chintan CHAVEZ MD Location:[facility] Appointment Type:URO Office Visit [facility] Evaluation + Plan note Future Appointments Appointment Date:01/27/2024 10:30:00 AM Scheduled Provider:Chintan CHAVEZ MD Location:[facility] Appointment Type:URO Office Visit [facility] Evaluation + Plan note Future Appointments Appointment Date:01/06/2024 08:30:00 AM Scheduled Provider: Location:[facility] Appointment Type:URO Nurse Visit Appointment Date:01/27/2024 10:30:00 AM Scheduled Provider:Chintan CHAVEZ MD Location:[facility] Appointment Type:URO Office Visit [facility] Evaluation note Diagnosis Prostate cancer screening Special screening for malignant neoplasm of prostate Mixed hyperlipidemia Essential hypertension Unspecified essential hypertension Thyroid disorder screening Screening for thyroid disorder documented in this encounter [employer] Phone: evaluation note* Diagnosis Dizziness Dizziness and giddiness Mild alcohol use disorder, in controlled environment Bilateral carotid artery stenosis Occlusion and stenosis of multiple and bilateral precerebral arteries without mention of cerebral infarction Short-term memory loss Memory loss documented in this encounter [employer] Phone: [email or web address] note* Diagnosis Fall, initial encounter Acute midline low back pain without sciatica documented in this encounter [employer] Phone: [email or web address] note* Diagnosis Fall, initial encounter documented in this encounter [employer] Phone: [email or web address] noteNo assessment information available [facility] Work Phone: Evaluation note* Diagnosis Onset Date Resolution Status Positive colorectal cancer s creening using Cologuard test acute [facility] Work Phone: Evaluation note* Diagnosis Mixed hyperlipidemia Bilateral carotid artery stenosis Occlusion and stenosis of multiple and bilateral precerebral arteries without mention of cerebral infarction Essential hypertension Unspecified essential hypertension History of alcoholism (HCC) Personal history of alcoholism Primary hypertension Unspecified essential hypertension documented in this encounter [employer] Phone: Hospital course Narrative No data available for this section [facility] Hospital Discharge instructions Additional Instructions DISCHARGE INSTRUCTIONS [...] if you have any problems. -Office number [phone] Phone: Progress note No data available for this section [facility] Reason for Referral Status Reason Specialty Diagnoses / Procedures Re ferred By Contact Referred To Contact Open Cardiology Diagnoses Dizziness Essential hypertension Pure hypercholesterolemia Procedures EKG 12 Lead Candace Burleson FIREARMS INSTRUCTOR [employer] [place] [address] Status Reason Specialty Diagnoses / Procedures Referre d By Contact Referred To Contact Open EKG Diagnoses Dizziness Procedures Holter Monitor 48 Hour HC HOLTER MONITOR Candace Burleson APRN [place] [address] [address] [place] [address] Status Reason Specialty Diagnoses / Procedures Referre d By Contact Referred To Contact Open Diagnoses Dizziness Essential hypertension Procedures VL DUP CAROTID BILATERAL HC EXTRACRANIAL BILAT STUDY Candace Burleson FIREARMS INSTRUCTOR [place] [address] Status Reason Specialty Diagnoses / Procedures Referre d By Contact Referred To Contact Closed Radiology Diagnoses Dizziness Mild alcohol use disorder, in controlled environment Bilateral carotid artery stenosis Short-term memory loss Procedures MRI BRAIN WO CONTRAST Candace Burleson FIREARMS INSTRUCTOR [place] [address] Assessments Diagnosis Dizziness Dizziness and giddiness Essential [...] FoundDocuments on File Type Date Recorded Patient Dietary Aide Expl anation Advance Directives and Living Will Power of Silver Miner Documents on File Type Date Recorded Patient Dietary Aide Expl anation Advance Directives and Living Will Power of Silver Miner Documents on File Type Date Recorded Patient Dietary Aide Expl anation ACP-Advance Directive ACP-Power of Silver Miner Healthcare Agents on File Name Relationship Healthcare Agent Relationshi p Communication Ashleigh Olivier Spouse Primary Decision Maker Documents on File Type Date Recorded Patient Dietary Aide Expl anation ACP-Advance Directive ACP-Power of Silver Miner Healthcare Agents on File Name Relationship Healthcare Agent Relationshi p Communication Ashleigh Olivier Spouse Primary Decision Maker Healthcare Agents on File Name Relationship Healthcare Agent Relationshi p Communication Ashleigh Olivier Spouse Primary Decision Maker Healthcare Agents on File Name Relationship Healthcare Agent Relationshi p Communication Ashleigh Olivier Spouse Primary Decision Maker Healthcare Agents on File Name Relationship Healthcare Agent Relationshi p Communication Ashleigh Olivier Spouse Primary Decision Maker Advance Directive Response Recorded Date/ Time Advance Directives No July 4:29pm Documents on File Type Date Recorded Patient Dietary Aide Expl anation ACP-Do Not Resuscitate 04/21/2022 9:41 AM 04/21/22 DNR Comfort Care Healthcare Agents on File Name Relationship Healthcare Agent Relationshi p Communication Ashleigh Olivier Spouse Primary Decision Maker History of Present Illness * Becca Abdullahi RCP - 08/22/2019 2:00 PM EDT The patient [...] 48 Hour HC HOLTER MONITOR Candace Burleson, FIREARMS INSTRUCTOR [employer] [place] [address] [address] [place] [address] Status Reason Specialty Diagnoses / Procedures Referre d By Contact Referred To Contact Open Diagnoses Dizziness Essential hypertension Procedures VL DUP CAROTID BILATERAL HC EXTRACRANIAL BILAT STUDY Candace Burleson, FIREARMS INSTRUCTOR [employer] [place] [address] Status Reason Specialty Diagnoses / Procedures Referre d By Contact Referred To Contact Closed Radiology Diagnoses Dizziness Mild alcohol use disorder, in controlled environment Bilateral carotid artery stenosis Short-term memory loss Procedures MRI BRAIN WO CONTRAST Candace Burleson, FIREARMS INSTRUCTOR - [employer] [address] [place] [address] (unrecognized sect ion and content) No Status Records FoundNo Status Records FoundNo Status Records FoundNo Status Records FoundNo Status Records FoundNo Status Records FoundNo Status Records FoundNo Status Records FoundNo Status Records Found INFORMATION SOURCE (unrecogn ized section and content) DATE CREATED AUTHOR 07/15/2021 [facility] dical Specialist DATE CREATED AUTHOR AUTHOR'S ORGANIZ ATION 07/24/2021 [facility] DATE CREATED AUTHOR AUTHOR'S ORGANIZ ATION 08/14/2022 [facility] DATE CREATED AUTHOR AUTHOR'S ORGANIZ ATION 08/08/[address] [facility] DATE CREATED AUTHOR AUTHOR'S ORGANIZ ATION 11/17/2023 [facility] DATE CREATED AUTHOR AUTHOR'S ORGANIZ ATION 12/06/2023 Kaye dobbins DATE CREATED AUTHOR AUTHOR'S ORGANIZ ATION 12/31/2023 [facility] DATE CREATED AUTHOR AUTHOR'S ORGANIZ ATION 01/01/2024 [facility] DATE CREATED AUTHOR AUTHOR'S ORGANIZ ATION 01/12/2024 [facility] Care Teams (unrecognized sec tion and content) Team Status: Active Member Role Status Dates Candace Medina PORTER Burleson SPOT WELDER-C Primary Care Provider Active Team Status: Inactive Member Role Status Dates Candace Carol PORTER Burleson SPOT WELDER-C Primary Care Provider Active Leonides Dyer DO Emergency Provider Active Master Dyer Relationship Specialty Start Date End Date Candace Burleson, FIREARMS INSTRUCTOR - [employer] [place] [address] PCP - General 01/09/16 Master Dyer Relationship Specialty Start Date End Date Candace Burleson, FIREARMS INSTRUCTOR [employer] [place] [address] PCP - General 01/09/16 Master Dyer Relationship Specialty Start Date End Date Candace Burleson, FIREARMS INSTRUCTOR - [employer] [place] [address] PCP - General 01/09/16 Team Status: Inactive Member Role Status Dates Candaec Burleson APRN SPOT WELDER-C Primary Care Provider Active Christiano Baer MD Attending Provider Active Master Dyer Relationship Specialty Start Date End Date Candace Burleson, FIREARMS INSTRUCTOR - [employer] [place] [address] PCP - General 01/09/16 Goals (unrecognized section [...] BE BASED ON THE PRIMARY CLINICAL RECORDS. [facility]. provides no warranty or guarantee of the accuracy or completeness of information in this document.
== END 2024-01-19 14:58 | disposition home or self-care (01) ==
LOC: US 14:58
PROVIDERS: PCP Nurse Practitioner Primary Care; Visit Provider Student in an Organized Health Care Education/Training Program
DX: Z09 Encounter for follow-up examination after completed treatment for conditions other than malignant neoplasm (principal)
CPT/HCPCS: 93880

== ENCOUNTER 2024-01-28 10:01 | Outpatient (OUT) | payer MEDICARE, OTHER, SELFPAY ==
[2024-01-28 10:28] LABS: Basophils Percent Auto 0.4 % (0.2-2.0); Eosinophils Absolute Auto 0.1 10^3/uL (0.0-0.7); Eosinophils Percent Auto 2.3 % (0.9-7.0); Hematocrit 36.4 % (42.0-54.0); Hemoglobin 11.9 g/dL (14.0-18.0); Immature Granulocytes Abs Auto 0.01 10^3/uL (0.00-0.03); Immature Granulocytes Pct Auto 0.2 % (0.0-0.5); Lymphocytes Absolute Auto 1.4 10^3/uL (1.2-3.8); Lymphocytes Percent Auto 25.9 % (20.5-60.0); Mean Corpuscular HGB Conc 32.7 g/dL (29.9-35.2); Mean Corpuscular Hemoglobin 31.2 pg (25.9-34.0); Mean Corpuscular Volume 95.5 fL (80.0-94.0); Mean Platelet Volume 9.3 fL (9.5-13.5); Monocytes Absolute Auto 0.6 10^3/uL (0.3-0.8); Monocytes Percent Auto 10.8 % (1.7-12.0); Neutrophils Absolute Auto 3.4 10^3/uL (1.4-6.5); Neutrophils Percent Auto 60.4 % (43.0-75.0); Platelet Count 237 10^3/uL (150-450); Red Blood Count 3.81 10^6/uL (4.70-6.10); Red Cell Distribution Width 14.1 % (11.0-15.0); Reticulocyte Pct Auto 2.21 % (0.60-3.10); White Blood Count 5.6 10^3/uL (4.0-11.0)
== END 2024-01-28 10:02 | disposition home or self-care (01) ==
LOC: LAB 10:03
PROVIDERS: PCP Nurse Practitioner Primary Care; Visit Provider Nurse Practitioner Primary Care
DX: D50.8 Other iron deficiency anemias (principal)
CPT/HCPCS: 36415; 85025; 85045

== ENCOUNTER 2024-03-08 09:40 | Outpatient (OUT) | payer MEDICARE, OTHER, SELFPAY ==
--- OUTSIDE RECORDS SUMMARY | 2024-03-08 10:05 | XMS_ITS | CCD ---
Author Organization [facility] Care Team Providers Care Senior Electrical Engineer Name Role Phone Candace Giron Primary Care Provider UNKNOWN, PHYSICIAN Referring Unavailable CANDACE GIRON Primary Care Unavailable KENYATTA MORA Attending Unavailable KENYATTA MORA Admitting Unavailable Bree FEEDER DRIVER - SENIOR WEB DESIGNER, Candace Medina Primary Care Provider CANDACE GIRON Primary Care Physician [facility] Care [facility] Bree FEEDER DRIVERAliya Medina Primary Care Provider MD Christiano Ravi Attending Provider [phone] LEÓN, DR AGUERO Admitting Unavailable ELTAHAWAyad, DR AGUERO Attending Unavailable [facility], DR ATKINSON Consulting Unavailable LEÓN, DR AGUERO Consulting Unavailable PORTER Giron Primary Care Provider DO Leonides Velasquez Emergency Provider STELLA TSE Attending Unavailable Leonides Velasquez Admitting Unavailable Candace Giron Primary Care Unavailable Leonides Velasquez Attending Unavailable CANDACE GIRON Primary Care Unavailable CANDACE GIRON Referring Unavailable MORE TRAORE Referring Unavailable BREE CANDACE M Primary Care Unavailable CANDACE GIRON M Attending Unavailable CANDACE GIRON M Primary Care Unavailable CANDACE GIRON M Referring Unavailable BREE, CANDACE M Primary Care Unavailable BREE CANDACE M Referring Unavailable CANDACE GIRON M Primary Care Unavailable CARLOS MANUEL GARCIA Admitting Unavailable CARLOS MANUEL GARCIA Attending Unavailable АННА BROWER Consulting Unavailable IRISH SCHRADER Consulting Unavailable JARETH FIGUEROA Attending Unavailable CANDACE GIRON Primary Care Unavailable CARLOS MANUEL GARCIA Attending Unavailable CANDACE GIRON Primary Care Unavailable Makayla Corona Attending Unavailable CANDACE GIRON Primary Care Unavailable Makayla Corona Attending Unavailable CANDACE GIRON Primary Care Unavailable Chintan GRACIA Attending Unavailable Charles Kim Attending Unavailable Charles Kim Referring Unavailable CANDACE GIRON Primary Care Unavailable Humaira Ragsdale Attending Unavailable CANDACE GIRON Primary Care Unavailable Allergies Allergy Classification Reported Allergen(s) Allergy Type Date of Onset Reaction(s) Facility NSAIDs (2 sources) Ibuprofen Drug Allergy 4 [facility] (9 sources) NSAIDs Propensity to adverse reactions to drug 4 [place] (5 sources) Shellfish-Derive d Products Propensity to adverse reactions to drug 8 [place] (17 sources) Ibuprofen; Translations: [ibuprofen] Drug Allergy 1 HYPERTENSION [facility] (4 sources) Memantine; Translations: [MEMANTINE] Drug Allergy 4 [facility] Repository (3 sources) NSAIDs; Translations: [NSAIDS (NON-STEROIDAL ANTI-INFLAMMATOR Y DRUG)] Propensity to adverse reactions to drug (disorder) 4 [facility] Repository (1 source) Ibuprofen Drug Allergy 2 Repository Medications Current Medications Medication Drug Class(es) Dates Sig (Normalized) Sig (Original) aspirin 81 mg delayed release oral tablet (19 sources) Platelet Aggregation Inhibitor, Nonsteroidal Anti-inflammatory Drug [...] Ordered donepezil hydrochloride 5 mg oral tablet (5 sources) Start: 12-31-2023 take 1 tablet by [...] Active doxycycline hyclate 100 mg oral capsule (2 sources) Tetracycline-class Drug Start: 01-27-2024 doxycy vasquez hyclate 100 mg Cap Refills(s) 0 Start Date: 01/27/24 Status: Ordered Start: 01-11-2024 End: 01-25-2024 take 1 capsule by mouth twice daily doxycycline hyclate 100 mg Cap 100 mg = 1 cap(s), Oral, BID, X 14 day(s), # 28 cap(s), Refills(s) 0, Pharmacy: [id number], 185, cm, 01/11/24 11:29:00 EDT, Height/Length Dosing, 84, kg, 01/11/24 11:29:00 EDT, Weight Dosing Start Date: 01/11/24 Stop Date: 01/25/24 Status: Ordered FLUoxetine 20 mg oral capsule (10 sources) Serotonin Reuptake Inhibitor Start: 03-18-2022 take 1 capsule by mouth once daily FLUoxetine 20 mg Cap TAKE 1 CAPSULE BY MOUTH DAILY Start Date: 09/22/22 Status: Ordered Start: 01-13-2022 take 1 capsule by mo uth in the morning FLUoxetine (PROZAC) 10 MG capsule Take 1 capsule by mouth in the morning. 90 capsule 1 01/13/2022 Active Start: 11-11-2021 take 1 capsule by mo uth once daily FLUoxetine (PROZAC) 10 MG capsule Take 1 capsule by mouth daily 30 capsule 1 11/11/2021 Active Levsin (3 sources) Start: 12-31-2023 Levsin Refills(s) 0 Start Date: 12/31/23 Status: Ordered levothyroxine sodium 0.05 mg oral tablet (3 sources) l-Thyroxine Start: 12-31-2023 levothyroxine 50 mcg [...] Active losartan potassium 25 mg oral tablet (4 sources) Angiotensin 2 Receptor Jenifer Start: 09-22-2022 [...] mg tablets,dose pack Active 0 PO .COMPLEX June 06, 2023 12:00am take TWO 150 [...] 2023 12:00am sildenafil 100 mg oral tablet (19 sources) Phosphodiesterase 5 Inhibitor Start: 01-07-2023 take 1 tablet by mouth once daily as needed sildenafil 100 mg Tab 100 mg = 1 tab(s), Oral, Daily, PRN for erectile dysfunction, 1 hour before sexual activity, # 20 tab(s), Refills(s) 3, Pharmacy: [id number], 185, cm, 01/07/23 10:35:00 EDT, Height/Length [...] 05/15/2016 Active simvastatin 40 mg oral tablet (19 sources) HMG-CoA Reductase Inhibitor Start: 08-06-2020 take [...] Active tamsulosin hydrochloride 0.4 mg oral capsule (15 sources) alpha-Adrenergic Jenifer Start: 01-27-2024 take 1 capsule by mouth once daily Flomax 0.4 mg Cap 0.4 mg = 1 cap(s), Oral, Daily, # 90 cap(s), Refills(s) 3, Pharmacy: [id number], 185, cm, 01/27/24 10:36:00 EDT, Height/Length Dosing, 84, kg, 01/27/24 10:36:00 EDT, Weight Dosing Start Date: 01/27/24 Status: Ordered Start: 03-07-2020 take 1 capsule by mi ut once daily Flomax 0.4 mg Cap 0.4 mg = 1 cap(s), Oral, Daily, # 90 cap(s), Refills(s) 3, [id number], 185, cm, 01/07/23 10:35:00 EDT, Height/Length Dosing, [...] every four to six hours Hydrocodone-Acetam inophen (Pepperell) 5-325 mg tablet Discontinued 1 - 2 [...] 11-11-2012 Chronic Genitourinary symptoms and ill-defined conditions (1 source) Urinary catheter in situ 01-27-2024 Chronic Genitourinary symptoms and ill-defined conditions (19 sources) Shivam hematuria; Translations: [Nocturia] Onset: 01-27-2024 01-05-2019 Episodic Headache; including migraine (1 source) Headache; including migraine; Translations: [Headache, unspecified] Onset: 06-06-2023 Heart valve disorders (1 source) Rheumatic disorders of both mitral and aortic valves; Translations: [Rheumatic disorders of both mitral and aortic valves] Onset: 12-02-2023 Chronic Hyperplasia of prostate (12 sources) Benign prostatic hypertrophy with outflow obstruction; Translations: [Benign prostatic hyperplasia with lower urinary tract symptoms] Onset: 01-13-2022 Chronic Inflammatory conditions of male genital organs (2 sources) Epididymitis; Translations: [Epididymitis] Onset: 01-27-2024 Episodic Miscellaneous mental health disorders (5 sources) Male erectile disorder; Translations: [Erectile dysfunction] Onset: 01-13-2022 Chronic Nutritional deficiencies (1 source) Vitamin D deficiency, unspecified; Translations: [Vitamin D deficiency, unspecified] Onset: 04-27-2023 Chronic Occlusion or stenosis of precerebral arteries (3 sources) Bilateral stenosis of carotid arteries; Translations: [Occlusion and stenosis of bilateral carotid arteries] Onset: 12-29-2023 Chronic Osteoarthritis (6 sources) Arthritis 01-05-2019 Chronic Other diseases of kidney and ureters (2 sources) Urinary tract obstruction; Translations: [Other obstructive and reflux uropathy] Onset: 01-13-2022 Episodic Other gastrointestinal disorders (2 sources) Stool DNA-based colorectal cancer screening positive; Translations: [Other fecal abnormalities] 04-15-2022 Episodic Other gastrointestinal disorders (1 source) Other fecal abnormalities; Translations: [Abnormal feces] 04-15-2022 Episodic Other male genital disorders (12 sources) Impotence 01-05-2019 Chronic Other male genital disorders (2 sources) Disorder of male genital organ; Translations: [Other specified disorders of the male genital organs] Onset: 01-11-2024 Episodic Other male genital disorders (1 source) Hydrocele of testis; Translations: [Hydrocele, unspecified] Onset: 01-27-2024 Episodic Residual codes; unclassified (1 source) Poor short-term memory ; Translations: [Other amnesia] Episodic Residual codes; unclassified (1 source) Pain, unspecified; Translations: [Pain, unspecified] Onset: 10-31-2023 Episodic Residual codes; unclassified (2 sources) Device in situ; Translations: [Presence of other specified devices] Onset: 01-11-2024 Episodic Screening and history of mental health and substance abuse codes (4 sources) Ex-smoker 01-07-2023 Episodic Spondylosis; intervertebral disc [...] status; Translations: [Screening for thyroid disorder] Unclassified (4 sources) Body mass index 20-24 - normal [...] Test Name Value Interpretation Reference Range Facility Urology Office/Clinic Noteon 01-27-2024 Urology Office/Clinic Note Urology Office/Clinic Note Chief Complaint follow up HPI Staff 78 year old male here for 1 year F/U. Previous DX: BPH with obstruction/LUTS *flomax 0.4mg qd* swollen testicles, impotence, ED *Sildenafil 100mg prn* Pt. was given Doxycycline 100mg BID for 2 weeks for swollen testicle when he saw AO on 01/11/24. Does have a few days left of script. Scrotal US done 01/11/24 Pt had R carotid endarterectomy with Dr. Garcia at [facility] on 12/29/23 due to recent TIA. Pt's reports that she was told patient had a traumatic catheter insertion for his surgery so they left the catheter in place post-op. While inpatient, catheter would not drain so urology was consulted and they replaced it with a 24Fr Coude and started CBI. Cath was removed at [facility] on 01/01, pt. presented to the ER for gross hematuria and clots, CBI performed and urine cleared up upon discharge cath was removed. Dysuria: no Incomplete bladder emptying: no Hematuria: no Frequency: no Urgency: severe Nocturia: 2x Stream: slower stream Leaking: patient states he does not leak- states he does leak Post void dripping: no Wearing pads/ Depends: was wearing depends stopped wearing them 2 days ago Urge incontinence: mild Stress incontinence: no Incontinence without Sensory Awareness: no Abdominal pain: no Flank pain: no Sexual complaints: no History of Present Illness Tests reviewed: reviewed scrotal US. I have reviewed the previous health record information and history for this patient from Dr. Gracia. I have reviewed and verified the staff [...] See HPI. Physical Exam Vitals & Measurements HR: 81(Peripheral) BP: 116/71 HT: 73 in HT: 185 cm WT: 84 kg WT: 184.8 lb BMI: 24.54 General Appearance: alert, no distress, well nourished, well developed male. Genitourinary: slight induration on the left. No abnormalities. Assessment/Plan Pt accompanied by today. Portions of this record may have been created with voice recognition artificial intelligence software, specifically Jimmy Fairly, Finisar and or Epocrates. Substitutions may have occurred due to the inherent limitations of voice recognition and artificial intelligence software. 1. BPH with obstruction/lower urinary tract symptoms (N40.1: Benign prostatic hyperplasia with lower urinary tract symptoms) S/p Cysto 08/05/18. S/p REZUM 09/02/2018. PVR (cc): 01/11/24 - 43 No urine sample provided today. IPSS 11 (17) Taking Flomax 0.4mg qd. Refill provided. No urinary concerns. 2. Epididymitis (N45.1: Epididymitis) Last seen by Humaira 01/11/24 for a swollen testicle. PE: firm left epididymal head, firm scrotum, unable to easily palpate testicle. Pt denies pain to palpation. Suspicious for epididymo-orchitis. Tx'd w/ Doxycycline 100mg bid x 2 weeks (still taking) Scrotal US 01/12/24 [facility] - findings favor left scrotal acute epididymitis and reactive hydrocele. Large L hydrocele. Has noticed improvement. Pt feels he is back to normal . PE: ~slight induration on the left. No abnormalities. -Complete ATB course -Cont symptomatic monitoring Follow up in 6 mos or sooner if needed. 3. Hydrocele (N43.3: Hydrocele, unspecified) See #2. 4. Impotence (F52.21: Male erectile disorder) Sildenafil 100 mg PRN therapy, states they use medication intermittently, although not in quite a while. No SEs. 5. 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 Garcia at [facility] on 12/29/23 due to recent TIA. Pt's reports that she was told patient had a traumatic catheter insertion for his surgery so they left the catheter in place post-op. While inpatient, catheter would not drain so urology was consulted and they replaced it with a 24Fr Coude and started CBI. Cath was removed at [facility] on 01/01, pt. presented to the ER for gross hematuria and clots, CBI performed and urine cleared up upon discharge cath was removed. Pt's catheter was removed at [facility] on 01/06/24. 6. Gross hematuria (R31.0: Gross hematuria) See #5. Denies recurrence of gross hematuria. Overall the patient is here with his today. He had a rough postoperative course after his right carotid endarterectomy. Apparently he had a (more content not included)... Normal [facility] Comment on above: Result Comment: Elec tronically Signed By: Chintan GRACIA MD\.br\Date and Time Signed: 01/27/24 10:55 EDT\.br\Electronically Co-Signed By: Fanny Mendoza\.br\Date and Time Co-Signed: 01/27/24 10:51 EDT Ambulatory Visit Summaryon 0 01-11-2024 Ambulatory Visit Summary Ambulatory Visit Summary FAITH PENN :1945 Visit Date:01/11/2024 Ambulatory Visit Instructions Your Diagnosis Swollen testicle BPH with obstruction/lower urinary tract symptoms Valero catheter status Impotence Tests Performed US Scrotum (Contents) -- Results Pending -- Please visit your patient portal for your results or contact your primary care physician. Your Care Team Attending Physician - DHAVAL Ragsdale APRN, Humaira Ayon Primary Care Physician - CANDACE GIRON CNP This Is Your Medications List Contact [...] HILL, Chintan Mo Where: [facility] [address], [address] [place] [address]- You Need to Schedule the Following Appointments Follow Up with DHAVAL Ragsdale APRN, Humaira Ayon, ELIEZER, URL When: Comments: Pt to keep follow up on 01/27/24 w/Dr. Gracia Where: Medications What How Much When Instructions [...] activity un (more content not included)... Normal [facility] Urology Office/Clinic Noteon 01-11-2024 Urology Office/Clinic [...] patient from Makayla Corona NP & Dr. Gracia. I have reviewed and verified the staff [...] time. -Timed Voids -Continue Flomax daily 3. 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 PVR today 43 ml 4. Impotence (F52.21: Male erectile disorder) Sildenafil 100 mg PRN therapy, states they use medication intermittently, although not in quite a while. No SEs. Follow-up With When Contact Information DHAVAL Ragsdale APRN, Humaira Ayon, FAM, URL Additional Instructions: Pt to keep follow up on 01/27/24 w/Dr. Gracia Patient Education Scrotal Swelling Benign Prostatic Hyperplasia I, Tree Foley, personally scribed for DHAVAL Dickinson on 01/11/2024 [...] mg Tab (more content not included)... Normal [facility] Comment on above: Result Comment: Elec tronically Signed By: DHAVAL Ragsdale APRN, Aurora X\.br\Date and Time Signed: 01/11/24 12:50 EDT\.br\Electronically Co-Signed By: Tree Foley\.br\Date and Time Co-Signed: 01/11/24 11:43 EDT Ambulatory Visit Summaryon 0 12-31-2023 Ambulatory Visit Summary Ambulatory Visit Summary LOREDoriFAITH :1945 Visit Date:12/31/2023 Ambulatory Visit Instructions Your Diagnosis Valero catheter problem BPH with obstruction/lower urinary tract symptoms Other obstructive and reflux uropathy Your Care Team Attending Physician - Makayla Santillan Primary Care Physician - CANDACE GIRON CNP This Is Your Medications List Contact [...] AM EDT With: Where: [facility] [address], [address] [place] [address]- Thursday 10:30 AM EDT With: Chintan GRACIA MD Where: [facility] [address], [address] [place] [address]- You Need to Schedule the Following Appointments Follow Up with Chintan GRACIA MD, URL When: Comments: Appointment has already been scheduled Where: [address] [address]- Medications What How Much When Instructions Unchanged [...] than 5 (more content not included)... Normal [facility] Urology Office/Clinic Noteon 12-31-2023 Urology Office/Clinic [...] here and serves as main historian. 1. Valero catheter problem (T83.9XXA: Unspecified complication of genitourinary prosthetic device, implant and graft, initial encounter) Pt called in this morning c/o inability to urinate through catheter. Pt had R carotid endarterectomy with Dr. Garcia at [facility] on 12/29/23 due to recent [...] unable to urinate again to go to [facility] as patient will likely need irrigation/CBI again. Pt is on Plavix which was started 6 weeks prior to surgery. I advised pt to hold Plavix for today and for pt's to call Dr. Garcia's office and advise them of the situation and get their recommendations regarding restarting Plavix. Pt was also given Levsin Q4H for bladder spasms [facility]. Pt has taken 3 doses of [...] this may be related to his traumatic valero insertion. Advised pt to avoid constipation and increase fluids. We scheduled pt for 1 week valero catheter removal but advised pt's to call our office or go to ER for any concerns in the meantime. Pt already has 1 year f/u appt with Dr. Gracia January 26, advised them to keep this appointment. -Increase fluids, minimize activity -Continue Flomax 0.4mg PO daily -Call Dr. Garcia's office for guidance on restarting Plavix -[facility] for inability to urinate/increased hematuria -1 week nurse visit with our office for cath removal (pending no further complications) -Keep f/u appt with Dr. Gracia 01/27/24 Ordered: E&M of Est. Patient Low 20-29 Min 78463 Insertion of temp indwelling bladder cath (valero) simple 52273 2. BPH with obstruction/lower urinary tract symptoms (N40.1: Benign prostatic hyperplasia with lower urinary tract symptoms) S/p REZUM 09/02/2018. IPSS 5 Was not discussed at today's office visit but patient reports he was urinating without difficulty prior to his surgery. Pt is taking Flomax 0.4mg PO daily. -Continue Flomax 0.4mg PO daily -Increase fluids -F/U with Dr. Gracia as scheduled on 01/27/24 Ordered: E&M of Est. Patient Low 20-29 Min 27515 Insertion of temp indwelling bladder cath (valero) simple 03410 Follow-up With When Contact Information KATHY HILL, Chintan P, URL [address] [address]- Additional Instruction (more content not included)... Normal [facility] Comment on above: Result Comment: Elec tronically Signed By: Chloe PUENTES, Makayla Stokes\.br\Date and Time Signed: 12/31/23 11:10 EDT BASIC METABOLIC PANLon 12-29 Anion gap [Moles/Vol] 8 mmol/L Normal 5-15 [facility] Comment on above: Performed By: #### C BCA, PINR, 75510-4, BMP #### [facility] ([id number]) [address], [address] [place] [address] Calcium [Mass/Vol] 8.3 mg/dL Low 8.5-10.5 [facility] Comment on above: Performed By: #### C BCA, PINR, 03083-8, BMP #### [facility] ([id number]) [address], [address] [place] [address] Chloride [Moles/Vol] 110 mmol/L High 98-109 [facility] Comment on above: Performed By: #### C BCA, PINR, 09108-8, BMP #### [facility] ([id number]) [address], [address] [place] [address] CO2 [Moles/Vol] 22 mmol/L Normal 22-32 [facility] Comment on above: Performed By: #### C BCA, PINR, 34572-4, BMP #### [facility] ([id number]) [address], [address] [place] [address] Creatinine [Mass/Vol] 0.76 mg/dL Normal 0.60-1.30 [facility] Comment on above: Result Comment: METH OD TRACEABLE TO IDMS STANDARD Performed By: #### C BCA, PINR, 57487-1, BMP #### [facility] ([id number]) [address], [address] [place] [address] eGFR (CKD-EPI) NON-RACE DEPENDENT >90 Normal >59 [facility] Comment on above: Result Comment: Reported eGFR is based on the CKD-EPI 2020 equation that does not use a race coefficient. Performed By: #### C BRANDON MELISSA, 27450-9, BMP #### [facility] ([id number]) [address], [address] [place] [address] Glucose [Mass/Vol] 109 mg/dL High 65-99 [facility] Comment on above: Performed By: #### C SHIN PINAndrew, 06436-3, BMP #### [facility] ([id number]) [address], [facility] [address] [place] [address] Potassium [Moles/Vol] 4.1 mmol/L Normal 3.5-5.0 [facility] Comment on above: Performed By: #### C SHIN PINR, 52703-4, BMP #### [facility] ([id number]) [address], [address] [place] [address] Sodium [Moles/Vol] 140 mmol/L Normal 134-146 [facility] Comment on above: Performed By: #### C SHIN PINR, 27523-3, BMP #### [facility] ([id number]) [address], [address] [place] [address] Urea nitrogen [Mass/Vol] 15 mg/dL Normal 5-27 [facility] Comment on above: Performed By: #### C SHIN PINR, 66338-1, BMP #### [facility] ([id number]) [address], [facility] [address] [place] [address] COMPLETE BLOOD COUNTon 12-29 Erythrocyte distribution width (RBC) [Ratio] 13.6 % Normal 11.5-15.0 [facility] Comment on above: Performed By: #### C SHIN PINR, 38221-2, BMP #### [facility] ([id number]) [address], [address] [place] [address] Hematocrit (Bld) [Volume fraction] 32.3 % Low 39-49 [facility] Comment on above: Performed By: #### C SHIN PINR, 80461-7, BMP #### [facility] ([id number]) [address], [address] [place] [address] Hemoglobin (Bld) [Mass/Vol] 11.0 g/dL Low 13.0-17.0 [facility] Comment on above: Performed By: #### C SHIN PINR, 02517-8, BMP #### [facility] ([id number]) [address], [address] [place] [address] MCH (RBC) [Entitic mass] 32.7 pg Normal 27-34 [facility] Comment on above: Performed By: #### C SHIN PINR, 13201-2, BMP #### [facility] ([id number]) [address], [address] [place] [address] MCHC (RBC) [Mass/Vol] 34.1 g/dL Normal 32-36 [facility] Comment on above: Performed By: #### C SHIN PINR, 05869-7, BMP #### [facility] ([id number]) [address], [address] [place] [address] MCV (RBC) [Entitic vol] 96 fL Normal 80-100 [facility] Comment on above: Performed By: #### C SHIN PINR, 76747-4, BMP #### [facility] ([id number]) [address], [address] [place] [address] Platelet mean volume (Bld) [Entitic vol] 7.9 fL Normal 7-12 [facility] Comment on above: Performed By: #### C BCA, PINR, 35212-0, BMP #### [facility] ([id number]) [address], [address] [place] [address] Platelets (Bld) [#/Vol] 192 10*3/uL Normal 150-450 [facility] Comment on above: Performed By: #### C BCA, PINR, 28548-1, BMP #### [facility] ([id number]) [address], [address] [place] [address] RBC COUNT 3.37 X10E12/L Low 4.10-5.70 [facility] Comment on above: Performed By: #### C BCA, PINR, 81503-9, BMP #### [facility] ([id number]) [address], [address] [place] [address] WBC (Bld) [#/Vol] 8.6 10*3/uL Normal 4.0-11.0 [facility] Comment on above: Performed By: #### C SHIN, PINR, 98533-7, BMP #### [facility] ([id number]) [address], [address] [place] [address] TSH WITH REFLEXon 12-30-2023 TSH 1.69 uIU/mL Normal 0.49-4.67 [facility] Comment on above: Performed By: #### C BCA, PINR, 12693-4, BMP #### [facility] ([id number]) [address], [address] [place] [address] BASIC METABOLIC PANLon 12-28 Anion gap [Moles/Vol] 9 mmol/L Normal 5-15 [facility] Comment on above: Performed By: #### [place], [address]-0 #### [facility] ([id number]) [address], [address] [place] [address] Calcium [Mass/Vol] 8.2 mg/dL Low 8.5-10.5 [facility] Comment on above: Performed By: #### Kelly ROQUE, #### [facility] ([id number]) [address], [address] [place] [address] Chloride [Moles/Vol] 109 mmol/L Normal 98-109 [facility] Comment on above: Performed By: #### Kelly ROQUE, #### [facility] ([id number]) [address], [address] [place] [address] CO2 [Moles/Vol] 22 mmol/L Normal 22-32 [facility] Comment on above: Performed By: #### Kelly ROQUE, #### [facility] ([id number]) [address], [address] [place] [address] Creatinine [Mass/Vol] 0.82 mg/dL Normal 0.60-1.30 [facility] Comment on above: Result Comment: METH OD TRACEABLE TO IDMS STANDARD Performed By: #### Kelly ROQUE, #### [facility] ([id number]) [address], [address] [place] [address] GFR/1.73 sq M.predicted among non-blacks MDRD (S/P/Bld) [Vol rate/Area] 90 mL/min/{1.73_m2} Normal >59 [facility] Comment on above: Result Comment: Reported eGFR is based on the CKD-EPI 2020 equation that does not use a race coefficient. Performed By: #### Kelly ROQUE, #### [facility] ([id number]) [address] [place] [address] Glucose [Mass/Vol] 131 mg/dL High 65-99 [facility] Comment on above: Performed By: #### Kelly ROQUE, #### [facility] ([id number]) [address], [address] [place] [address] Potassium [Moles/Vol] 3.8 mmol/L Normal 3.5-5.0 [facility] Comment on above: Performed By: #### Kelly ROQUE, 80694-0 #### [facility] ([id number]) [address], [address] [place] [address] Sodium [Moles/Vol] 140 mmol/L Normal 134-146 [facility] Comment on above: Performed By: #### Kelly ROQUE, #### [facility] ([id number]) [address], [address] [place] [address] Urea nitrogen [Mass/Vol] 18 mg/dL Normal 5-27 [facility] Comment on above: Performed By: #### Kelly ROQUE, #### [facility] ([id number]) [address], [address] [place] [address] Anion gap [Moles/Vol] 8 mmol/L Normal 5-15 [facility] Comment on above: Performed By: #### C SHIN, PINR, 37143-7, BMP #### [facility] ([id number]) [address] [place] [address] Calcium [Mass/Vol] 9.2 mg/dL Normal 8.5-10.5 [facility] Comment on above: Performed By: #### C BCA, PINR, 99730-4, BMP #### [facility] ([id number]) [address], [address] [place] [address] Chloride [Moles/Vol] 108 mmol/L Normal 98-109 [facility] Comment on above: Performed By: #### C BCA, PINR, 58122-1, BMP #### [facility] ([id number]) [address], [address] [place] [address] CO2 [Moles/Vol] 25 mmol/L Normal 22-32 [facility] Comment on above: Performed By: #### C BCA, PINR, 04205-9, BMP #### [facility] ([id number]) [address], [address] [place] [address] Creatinine [Mass/Vol] 0.93 mg/dL Normal 0.60-1.30 [facility] Comment on above: Result Comment: METH OD TRACEABLE TO IDMS STANDARD Performed By: #### C BCA, PINR, 04658-5, BMP #### [facility] ([id number]) [address], [address] [place] [address] GFR/1.73 sq M.predicted among non-blacks MDRD (S/P/Bld) [Vol rate/Area] 84 mL/min/{1.73_m2} Normal >59 [facility] Comment on above: Result Comment: Reported eGFR is based on the CKD-EPI 2020 equation that does not use a race coefficient. Performed By: #### C BCA, PINR, 85149-9, BMP #### [facility] ([id number]) [address], [address] [place] [address] Glucose [Mass/Vol] 107 mg/dL High 65-99 [facility] Comment on above: Performed By: #### C BCA, PINR, 33131-4, BMP #### [facility] ([id number]) [address], [address] [place] [address] Potassium [Moles/Vol] 3.9 mmol/L Normal 3.5-5.0 [facility] Comment on above: Performed By: #### C BCA, PINR, 12835-4, BMP #### [facility] ([id number]) [address], [address] [place] [address] Sodium [Moles/Vol] 141 mmol/L Normal 134-146 [facility] Comment on above: Performed By: #### C BCA, PINR, 41781-5, BMP #### [facility] ([id number]) [address] [place] [address] Urea nitrogen [Mass/Vol] 19 mg/dL Normal 5-27 [facility] Comment on above: Performed By: #### C SHIN, PINR, 91354-2, BMP #### [facility] ([id number]) [address] [place] [address] CBC AND AUTO DIFFon 12-29-19 ABSOLUTE BASOPHIL 0.0 X10E9/L Normal 0.0-0.2 [facility] Comment on above: Performed By: #### C BCA #### [facility] ([id number]) [address] [place] [address] ABSOLUTE NEUTROPHIL 6.6 X10E9/L Normal 1.5-6.6 [facility] Comment on above: Performed By: #### C BCA #### [facility] ([id number]) [address] [place] [address] Basophils/100 WBC (Bld) 0.3 % Normal [facility] Comment on above: Performed By: #### C BCA #### [facility] ([id number]) [address], [address] [place] [address] Eosinophils (Bld) [#/Vol] 0.0 10*3/uL Normal 0.0-0.4 [facility] Comment on above: Performed By: #### C BCA #### [facility] ([id number]) [address] [place] [address] Eosinophils/100 WBC (Bld) 0.4 % Normal [facility] Comment on above: Performed By: #### C BCA #### [facility] ([id number]) [address] [place] [address] Erythrocyte distribution width (RBC) [Ratio] 13.3 % Normal 11.5-15.0 [facility] Comment on above: Performed By: #### C BCA #### [facility] ([id number]) [address], [address] [place] [address] Hematocrit (Bld) [Volume fraction] 32.8 % Low 39-49 [facility] Comment on above: Performed By: #### C BCA #### [facility] ([id number]) [address], [address] [place] [address] Hemoglobin (Bld) [Mass/Vol] 11.1 g/dL Low 13.0-17.0 [facility] Comment on above: Performed By: #### C BCA #### [facility] ([id number]) [address], [address] [place] [address] Lymphocytes (Bld) [#/Vol] 0.8 10*3/uL Low 1.0-3.5 [facility] Comment on above: Performed By: #### C BCA #### [facility] ([id number]) [address], [address] [place] [address] Lymphocytes/100 WBC (Bld) 10.4 % Normal [facility] Comment on above: Performed By: #### C BCA #### [facility] ([id number]) [address], [address] [place] [address] MCH (RBC) [Entitic mass] 32.3 pg Normal 27-34 [facility] Comment on above: Performed By: #### C BCA #### [facility] ([id number]) [address], [address] [place] [address] MCHC (RBC) [Mass/Vol] 33.8 g/dL Normal 32-36 [facility] Comment on above: Performed By: #### C BCA #### [facility] ([id number]) [address], [address] [place] [address] MCV (RBC) [Entitic vol] 95 fL Normal 80-100 [facility] Comment on above: Performed By: #### C BCA #### [facility] ([id number]) [address], [address] [place] [address] Monocytes (Bld) [#/Vol] 0.3 10*3/uL Normal 0-0.9 [facility] Comment on above: Performed By: #### C BCA #### [facility] ([id number]) [address] [place] [address] Monocytes/100 WBC (Bld) 3.8 % Normal [facility] Comment on above: Performed By: #### C BCA #### [facility] ([id number]) [address], [address] [place] [address] Neutrophils/100 WBC (Bld) 85.1 % Normal [facility] Comment on above: Performed By: #### C BCA #### [facility] ([id number]) [address] [place] [address] Platelet mean volume (Bld) [Entitic vol] 7.6 fL Normal 7-12 [facility] Comment on above: Performed By: #### C BCA #### [facility] ([id number]) [address], [address] [place] [address] Platelets (Bld) [#/Vol] 170 10*3/uL Normal 150-450 [facility] Comment on above: Performed By: #### C BCA #### [facility] ([id number]) [address], [address] [place] [address] RBC COUNT 3.44 X10E12/L Low 4.10-5.70 [facility] Comment on above: Performed By: #### C BCA #### [facility] ([id number]) [address], [address] [place] [address] WBC (Bld) [#/Vol] 7.7 10*3/uL Normal 4.0-11.0 [facility] Comment on above: Performed By: #### C BCA #### [facility] ([id number]) [address], [address] [place] [address] ABSOLUTE BASOPHIL 0.0 X10E9/L Normal 0.0-0.2 [facility] Comment on above: Performed By: #### C SHIN, PINR, 38110-8, BMP #### [facility] ([id number]) [address], [address] [place] [address] ABSOLUTE NEUTROPHIL 2.6 X10E9/L Normal 1.5-6.6 [facility] Comment on above: Performed By: #### C SHIN, PINR, 64208-3, BMP #### [facility] ([id number]) [address], [address] [place] [address] Basophils/100 WBC (Bld) 0.6 % Normal [facility] Comment on above: Performed By: #### C SHIN, PINR, 83103-9, BMP #### [facility] ([id number]) [address], [address] [place] [address] Eosinophils (Bld) [#/Vol] 0.0 10*3/uL Normal 0.0-0.4 [facility] Comment on above: Performed By: #### C SHIN, PINR, 62960-9, BMP #### [facility] ([id number]) [address], [address] [place] [address] Eosinophils/100 WBC (Bld) 1.0 % Normal [facility] Comment on above: Performed By: #### C SHIN, PINR, 11767-1, BMP #### [facility] ([id number]) [address], [address] [place] [address] Erythrocyte distribution width (RBC) [Ratio] 13.4 % Normal 11.5-15.0 [facility] Comment on above: Performed By: #### C BRANDON MELISSA, 02731-3, BMP #### [facility] ([id number]) [address], [address] [place] [address] Hematocrit (Bld) [Volume fraction] 41.5 % Normal 39-49 [facility] Comment on above: Performed By: #### BRANDON Lombardo BCA, 17082-6, BMP #### [facility] ([id number]) [address], [facility] [address] [place] [address] Hemoglobin (Bld) [Mass/Vol] 13.9 g/dL Normal 13.0-17.0 [facility] Comment on above: Performed By: #### BRANDON Lombardo BCA, 92535-4, BMP #### [facility] ([id number]) [address], [facility] [address] [place] [address] Lymphocytes (Bld) [#/Vol] 1.2 10*3/uL Normal 1.0-3.5 [facility] Comment on above: Performed By: #### BRANDON Lombardo BCA, 94610-0, BMP #### [facility] ([id number]) [address], [address] [place] [address] Lymphocytes/100 WBC (Bld) 28.0 % Normal [facility] Comment on above: Performed By: #### BRANDON Lombardo BCA, 63710-0, BMP #### [facility] ([id number]) [address], [address] [place] [address] MCH (RBC) [Entitic mass] 32.3 pg Normal 27-34 [facility] Comment on above: Performed By: #### JAMES Lombardo BCAR, 85368-2, BMP #### [facility] ([id number]) [address], [address] [place] [address] MCHC (RBC) [Mass/Vol] 33.6 g/dL Normal 32-36 [facility] Comment on above: Performed By: #### C SHIN PINR, 20975-9, BMP #### [facility] ([id number]) [address], [address] [place] [address] MCV (RBC) [Entitic vol] 96 fL Normal 80-100 [facility] Comment on above: Performed By: #### C SHIN PINR, 79263-9, BMP #### [facility] ([id number]) [address], [address] [place] [address] Monocytes (Bld) [#/Vol] 0.4 10*3/uL Normal 0-0.9 [facility] Comment on above: Performed By: #### C SHIN PINR, 96398-6, BMP #### [facility] ([id number]) [address] [place] [address] Monocytes/100 WBC (Bld) 10.3 % Normal [facility] Comment on above: Performed By: #### Grupo MELISSA PINR, 53386-8, BMP #### [facility] ([id number]) [address] [place] [address] Neutrophils/100 WBC (Bld) 60.1 % Normal [facility] Comment on above: Performed By: #### Grupo MELISSA PINR, 93073-7, BMP #### [facility] ([id number]) [address] [place] [address] Platelet mean volume (Bld) [Entitic vol] 7.5 fL Normal 7-12 [facility] Comment on above: Performed By: #### Grupo MELISSA, PINR, 38810-7, BMP #### [facility] ([id number]) [address], [address] [place] [address] Platelets (Bld) [#/Vol] 197 10*3/uL Normal 150-450 [facility] Comment on above: Performed By: #### C BCA, PINR, 21593-4, BMP #### [facility] ([id number]) [address], [address] [place] [address] RBC COUNT 4.31 X10E12/L Normal 4.10-5.70 [facility] Comment on above: Performed By: #### C BCA, PINR, 19620-7, BMP #### [facility] ([id number]) [address] [place] [address] WBC (Bld) [#/Vol] 4.3 10*3/uL Normal 4.0-11.0 [facility] Comment on above: Performed By: #### C BCA, PINR, 43708-5, BMP #### [facility] ([id number]) [address] [place] [address] Calcium.ionized (Bld) [Mass/ Vol]on 12-29-2023 IONIZED CALCIUM 4.5 mg/dL Normal 4.5-5.3 [facility] Comment on above: Performed By: #### 3 8230-9 #### [facility] ([id number]) [address] [place] [address] HGB AND HCTon 12-29-2023 Hematocrit (Bld) [Volume fraction] 31.6 % Low 39-49 [facility] Comment on above: Performed By: #### C BCA, PINR, 96802-0, BMP #### [facility] ([id number]) [address], [address] [place] [address] Hemoglobin (Bld) [Mass/Vol] 11.2 g/dL Low 13.0-17.0 [facility] Comment on above: Performed By: #### C BCA, PINR, 36558-5, BMP #### [facility] ([id number]) [address], [address] [place] [address] MAGNESIUMon 12-29-2023 Magnesium [Mass/Vol] 2.1 mg/dL Normal 1.8-2.6 [facility] Comment on above: Performed By: #### B MP, 00530-0 #### [facility] ([id number]) [address], [address] [place] [address] Magnesium Ionized ISE (Bld) [Moles/Vol]on 12-29-2023 Magnesium [Moles/Vol] 0.63 mmol/L Normal 0.45-0.74 [facility] Comment on above: Result Comment: NEW REFERENCE RANGE Performed By: #### 7 3572-0 #### [facility] ([id number]) [address], [address] [place] [address] PROTIME AND INRon 12-29-2023 INR Coag (PPP) [Relative time] 1.0 {INR} Normal 0.8-1.1 [facility] Comment on above: Performed By: #### C BRANDON MELISSA, 38825-6, BMP #### [facility] ([id number]) [address] [place] [address] PT Coag (PPP) [Time] 12.0 s Normal 9.8-13.2 [facility] Comment on above: Performed By: #### C BRANDON MELISSA, 86510-2, BMP #### [facility] ([id number]) [address] [place] [address] RAPID CARDIACon 12-29-2023 SHAUNNA'S TEST Normal [facility] Comment on above: Performed By: #### A FAB5 #### [facility] ([id number]) [address] [place] [address] BASE,DEFICIT 2.0 MMOL/L Normal 0.0-2.0 [facility] Comment on above: Performed By: #### A FAB5 #### [facility] ([id number]) [address] [place] [address] Body temperature 98.6 [degF] Normal 37.0 [facility] Comment on above: Performed By: #### A FAB5 #### [facility] ([id number]) [address] [place] [address] Glucose [Mass/Vol] 111 mg/dL High 65-99 [facility] Comment on above: Performed By: #### A FAB5 #### [facility] ([id number]) [address] [place] [address] HCO3 (Bld) [Moles/Vol] 22.4 mmol/L Normal 22-26 [facility] Comment on above: Performed By: #### A FAB5 #### [facility] ([id number]) [address] [place] [address] Hematocrit (Bld) [Volume fraction] 37 % Low 39-49 [facility] Comment on above: Performed By: #### A FAB5 #### [facility] ([id number]) [address] [place] [address] Hemoglobin (Bld) [Mass/Vol] 12.1 g/dL Low 13.0-17.0 [facility] Comment on above: Performed By: #### A FAB5 #### [facility] ([id number]) [address] [place] [address] INSP. O2 CONC. 100 % Normal [facility] Comment on above: Performed By: #### A FAB5 #### [facility] ([id number]) [address] [place] [address] IONIZED CALCIUM 4.6 mg/dL Normal 4.5-5.3 [facility] Comment on above: Performed By: #### A FAB5 #### [facility] ([id number]) [address] [place] [address] Oxygen (Bld) [Partial pressure] 254 mm[Hg] High 80-100 [facility] Comment on above: Performed By: #### A FAB5 #### [facility] ([id number]) [address] [place] [address] Oxygen saturation in Blood 100.4 % Normal >90 [facility] Comment on above: Performed By: #### A FAB5 #### [facility] ([id number]) [address] [place] [address] PCO2 33.9 MMHG Low 35-45 [facility] Comment on above: Performed By: #### A FAB5 #### [facility] ([id number]) [address] [place] [address] pH (Bld) 7.428 [pH] Normal 7.350-7.450 [facility] Comment on above: Performed By: #### A FAB5 #### [facility] ([id number]) [address] [place] [address] Potassium [Moles/Vol] 3.8 mmol/L Normal 3.5-5.0 [facility] Comment on above: Performed By: #### A FAB5 #### [facility] ([id number]) [address] [place] [address] SAMPLE SITE TANGELA Normal [facility] Comment on above: Performed By: #### A FAB5 #### [facility] ([id number]) [address] [place] [address] SAMPLE TYPE Arterial Normal [facility] Comment on above: Performed By: #### A FAB5 #### [facility] ([id number]) [address] [place] [address] aPTT Coag (PPP) [Time]on aPTT Coag (Bld) [Time] 37 s Normal 26-37 [facility] Comment on above: Performed By: #### C BCA, PINR, 15594-5, BMP #### [facility] ([id number]) [address] [facility], [address] [place] [address] Hgb/Hcton 12-01-2023 Hematocrit (Bld) [Volume fraction] 41.3 % Normal 41.0-53.0 [facility] Comment on above: Performed By: #### F EBC, LIPR, FT4 #### [address] [id number] Induction Machine Operator: Arnav Barnes MD #### HH #### [facility] [address] [place], [place] [id number] Induction Machine Operator: Анна Biswas MD Hemoglobin (Bld) [Mass/Vol] 13.9 g/dL Normal 13.5-17.5 [facility] Comment on above: Performed By: #### F EBC, LIPR, FT4 #### [address] [id number] Induction Machine Operator: Arnav Barnes MD #### HH #### [facility] [address] [place], [place] [id number] Induction Machine Operator: Анна Biswas MD Iron Binding Cap.on 12-01-19 24 % Fe Saturation 27 % Normal 20-55 [facility] Comment on above: Performed By: #### F EBC, LIPR, FT4 #### [address] [address] Induction Machine Operator: Arnav Barnes MD #### HH #### [facility] [address] [place], [place] [id number] Induction Machine Operator: Анна Biswas MD Iron [Mass/Vol] 79 ug/dL Normal 61-157 [facility] Comment on above: Performed By: #### F EBC, LIPR, FT4 #### [address] [id number] Induction Machine Operator: Arnav Barnes MD #### HH #### [facility] [address] [place] [address] Induction Machine Operator: Анна Biswas MD Total Fe Binding Cap 292 ug/dL Normal 250-450 [facility] Comment on above: Performed By: #### F EBC, LIPR, FT4 #### [address] [id number] Induction Machine Operator: Arnav Barnes MD #### HH #### [facility] [address] [place], [place] [id number] Induction Machine Operator: Анна Biswas MD Unbound Fe Bind Cap 213 ug/dL Normal 112-347 [facility] Comment on above: Performed By: #### F EBC, LIPR, FT4 #### [address] [id number] Induction Machine Operator: Arnav Barnes MD #### HH #### [facility] [address] [place] [address] Induction Machine Operator: Анна Biswas MD Lipid Profileon 12-01-2023 Cholesterol [Mass/Vol] 151 mg/dL Normal 0-199 [facility] Comment on above: Result Comment: Cholesterol Guidelines: <200 Desirable 200-240 Borderline >240 Undesirable Performed By: #### F EBC, LIPR, FT4 #### [address] [id number] Induction Machine Operator: Arnav Barnes MD #### HH #### [facility] [address] [place] [address] ( Induction Machine Operator: Анна Biswas MD Cholesterol in HDL [Mass/Vol] 54 mg/dL Normal >40 [facility] Comment on above: Result Comment: HDL Guidelines: <40 Undesirable 40-59 Borderline >59 Desirable Performed By: #### F EBC, LIPR, FT4 #### [facility] [address] [place] [address] Induction Machine Operator: Arnav Barnes MD #### HH #### [facility] [address] [place] [address] Induction Machine Operator: Анна Biswas MD Cholesterol in LDL [Mass/Vol] 89 mg/dL Normal 0-100 [facility] Comment on above: Result Comment: LDL Guidelines: <100 Desirable 100-129 Near to/above Desirable 130-159 Borderline >159 Undesirable Direct (measured) LDL and calculated LDL are not interchangeable tests. Performed By: #### F EBC, LIPR, FT4 #### [id number] [place] [address] Induction Machine Operator: Arnav Barnes MD #### HH #### [facility] [address] [place], [place] [id number] Induction Machine Operator: Анна Biswas MD Cholesterol in VLDL [Mass/Vol] 8 mg/dL Normal [facility] Comment on above: Performed By: #### F EBC, LIPR, FT4 #### [address] [address] Induction Machine Operator: Arnav Barnes MD #### HH #### [facility] [address] [place] [address] Induction Machine Operator: Анна Biswas MD Cholesterol.total/Ninoska sterol in HDL [Mass ratio] 3.0 {ratio} Normal [facility] Comment on above: Performed By: #### F EBC, LIPR, FT4 #### [address] [address] Induction Machine Operator: Arnav Barnes MD #### HH #### [facility] [address] [place], [place] [id number] Induction Machine Operator: Анна Biswas MD Triglyceride [Mass/Vol] 41 mg/dL Normal <[address] [facility] Comment on above: Result Comment: Triglyceride Guidelines: <150 Desirable 150-199 Borderline 200-499 High >499 Very high Based on AHA Guidelines for fasting triglyceride, March 2012. Performed By: #### F EBC, LIPR, FT4 #### [facility] [email or web address] [address] [place], [place] [id number] Induction Machine Operator: Arnav Barnes MD #### HH #### [facility] [address] [place], [place] [id number] Induction Machine Operator: Анна Biswas MD Thyroxine, Freeon 12-01-2023 Thyroxine, Free 1.1 ng/dL Normal 0.92-1.68 [facility] Comment on above: Performed By: #### F EBC, LIPR, FT4 #### [facility] [address] [place], [place] [id number] Induction Machine Operator: Arnav Barnes MD #### HH #### [facility] [address] [place], [place] [id number] Induction Machine Operator: Анна Biswas MD Outside Recordson 11-03-2023 Outside Records [id number] 02 [id number]. [id number] Normal [facility] Office Visiton 08-04-2023 Follow-up visit [id number] [address] 1945 M Date Provider Department Center 08/04/2023 STELLA JANE CARD [facility] Family History Problem Relation Age of Onset Stroke Father Diabetes Father Family Status - Relation Status Age at Father Level of Service:[address] [place] OFFICE/OUTPATIENT ESTABLISHED LOW MDM 20 MIN Reason for Visit and Comments: Hypertension [080669] Hyperlipidemia [182] Normal [facility] Alanine aminotransferase [En zymatic activity/volume] in Serum or PlasmaOrdered By: Leonides Velasquez on 06-06-2023 ALT [Catalytic activity/Vol] 23 U/L Normal 7-52 Comment on above: Performed By: #### C BC, CMP #### [facility] [address] Albumin [Mass/volume] in Ser um or Plasma by Bromocresol green (BCG) dye binding methoOrdered By: Leonides Velasquez on 06-06-2023 Albumin BCG dye [Mass/Vol] 4.3 g/dL 3.5-5.7 Alkaline phosphatase [Enzyma tic activity/volume] in Serum or PlasmaOrdered By: Leonides Velasquez on 06-06-2023 ALP [Catalytic activity/Vol] 42 U/L Normal 34-104 Comment on above: Performed By: #### C BC, CMP #### [address] Aspartate aminotransferase [ Enzymatic activity/volume] in Serum or PlasmaOrdered By: Leonides Velasquez on 06-06-2023 AST [Catalytic activity/Vol] 22 U/L Normal 13-39 Comment on above: Performed By: #### C BC, CMP #### [address] Automated basophil %Ordered By: Leonides Velasquez on 06-06-2023 Basophils/100 WBC (Bld) 0.4 % Normal . [facility] Comment on above: Performed By: #### C BC, CMP #### [address] Automated basophil countOrde red By: Leonides Velasquez on 06-06-2023 Basophils (Bld) [#/Vol] 0.0 10*3/uL Normal 0.0-0.2 Comment on above: Result Comment: PERF ORMED BY: [place] [address] PATHOLOGIST GROUP HOME SUPERVISOR ANNABEL SANON M.D. Performed By: #### C BC, CMP #### [address] Automated blood monocyte cou ntOrdered By: Leonides Velasquez on 06-06-2023 Monocytes (Bld) [#/Vol] 1.0 10*3/uL High 0.0-0.8 Comment on above: Performed By: #### C BC, CMP #### [address] Automated eosinophil %Ordere d By: Leonides Marinoconstantine on 06-06-2023 Eosinophils/100 WBC (Bld) 0.2 % Normal . Comment on above: Performed By: #### C BC, CMP #### [address] Automated eosinophil countOr dered By: Leonides Marinoconstantine on 06-06-2023 Eosinophils (Bld) [#/Vol] 0.0 10*3/uL Normal 0.0-0.45 Comment on above: Performed By: #### C BC, CMP #### [address] Automated erythrocytes count in urine sediment (number/area)Ordered By: Leonides Manisha on 06-06-2023 RBC Auto (Urine sed) [#/Area] 0-1 [HPF] 0-4 Automated leukocytes count i n urine sediment (number/area)Ordered By: Leonides Manisha on 06-06-2023 WBC Auto (Urine sed) [#/Area] 1-2 [HPF] 0-4 Automated monocyte %Ordered By: Leonides Marinoconstantine on 06-06-2023 Monocytes/100 WBC (Bld) 20.7 % Normal . [facility] Comment on above: Performed By: #### C BC, CMP #### [address] Automated neutrophil %Ordere d By: Leonides Marinoconstantine on 06-06-2023 Neutrophils/100 WBC (Bld) 66.6 % Normal . Comment on above: Performed By: #### C BC, CMP #### [address] Automated urine color determ inationOrdered By: Leonides Manisha on 06-06-2023 Color (U) Yellow Normal Yellow Comment on above: Order Comment: Name Collection Type:: Clean-Voided Midstream Performed By: #### A DDONUAPLUS #### [address] [place] [address] [place] Bilirubin Test strip Ql (U)O rdered By: Leonides Velasquez on 06-06-2023 Bilirubin Ql (U) Negative Negative [facility] Bilirubin.total [Mass/volume ] in Serum or PlasmaOrdered By: Leonides Velasquez on 06-06-2023 Bilirubin [Mass/Vol] 0.5 mg/dL Normal 0.3-1.0 [facility] Comment on above: Performed By: #### C BC, CMP #### [address] Calcium [Mass/volume] in Ser um or PlasmaOrdered By: Leonides Marinoconstantine on 06-06-2023 Calcium [Mass/Vol] 9.1 mg/dL Normal 8.6-10.3 [facility] Comment on above: Performed By: #### C BC, CMP #### [address] Carbon dioxide, total [Moles /volume] in Serum or PlasmaOrdered By: Leonides Marinoconstantine on 06-06-2023 CO2 [Moles/Vol] 27.5 mmol/L Normal 21.0-31.0 [facility] Comment on above: Performed By: #### C BC, CMP #### [place] [id number] [place] Chloride [Moles/volume] in S stephen or PlasmaOrdered By: Leonides Marinoconstantine on 06-06-2023 Chloride [Moles/Vol] 101 mmol/L Normal 98-107 [facility] Comment on above: Performed By: #### C BC, CMP #### [place] [id number] [place] Complete Blood Count Auto Di ffon 06-06-2023 Mean Corpuscular HGB Conc 33.8 g/dL Normal 32.5-35.6 [facility] Comment on above: Performed By: #### C BC, CMP #### [place] [id number] [place] Monocytes/100 WBC (Bld) 24.84 % High 0.00-20.00 [facility] Comment on above: Result Comment: For adults in ED, MDW > 20.0 may be associated with a higher risk of sepsis during the first 12 hrs of hospital admission Performed By: #### C BC, CMP #### [address] NRBC% 0.1 /100{WBC} Normal 0-0.5 [facility] Comment on above: Performed By: #### C BC, CMP #### [address] Comprehensive Metabolic Pane ruth 06-06-2023 Albumin [Mass/Vol] 4.3 g/dL Normal 3.5-5.7 [facility] Comment on above: Performed By: #### C BC, CMP #### [address] Creatinine Clr Calc Pharmacy 71.67 Normal [facility] Comment on above: Result Comment: PERF ORMED BY: [place] [address] PATHOLOGIST GROUP HOME SUPERVISOR ANNABEL SANON M.D. Performed By: #### C BC, CMP #### [address] GFR/1.73 sq M.predicted MDRD (S/P/Bld) [Vol rate/Area] mL/min/{1.73_m2} Normal [facility] Comment on above: Performed By: #### C BC, CMP #### [address] Creatinine [Mass/volume] in Serum or PlasmaOrdered By: Leonides Velasquez on 06-06-2023 Creatinine [Mass/Vol] 0.96 mg/dL Normal 0.70-1.30 [facility] Comment on above: Performed By: #### C BC, CMP #### [place] [id number] [place] Dipstick and Microscopicon 1 Appearance (U) Clear Normal Clear [facility] Comment on above: Order Comment: Name Collection Type:: Clean-Voided Midstream Performed By: #### A DDONUAPLUS #### [facility] [address] [place] [address] [place] Bacteria,Urine 1+ High None Seen [facility] Comment on above: Order Comment: Name Collection Type:: Clean-Voided Midstream Performed By: #### A DDONUAPLUS #### [facility] [address] Bilirubin,Urine Negative Normal Negative [facility] Comment on above: Order Comment: Name Collection Type:: Clean-Voided Midstream Performed By: #### A DDONUAPLUS #### [facility] [address] [place] [address] [place] Glucose Ql (U) Normal Normal Normal [facility] Comment on above: Order Comment: Name Collection Type:: Clean-Voided Midstream Performed By: #### A DDONUAPLUS #### [place] [id number] [place] Hyaline Casts,Urine None Seen Normal 0-8 [facility] Comment on above: Order Comment: Name Collection Type:: Clean-Voided Midstream Result Comment: PERF ORMED BY: [place] [address] PATHOLOGIST GROUP HOME SUPERVISOR ANNABEL SANON M.D. Performed By: #### A DDONUAPLUS #### [address] Ketones Ql (U) 1+ High Negative [facility] Comment on above: Order Comment: Name Collection Type:: Clean-Voided Midstream Performed By: #### A DDONUAPLUS #### [place] [id number] [place] Leukocyte esterase Test strip Ql (U) Negative Normal Negative [facility] Comment on above: Order Comment: Name Collection Type:: Clean-Voided Midstream Performed By: #### A DDONUAPLUS #### [place] [id number] [place] Nitrite,Urine Negative Normal Negative [facility] Comment on above: Order Comment: Name Collection Type:: Clean-Voided Midstream Performed By: #### A DDONUAPLUS #### [address] Occult Blood,Urine Trace High Negative [facility] Comment on above: Order Comment: Name Collection Type:: Clean-Voided Midstream Result Comment: PERF ORMED BY: [place] [address] PATHOLOGIST GROUP HOME SUPERVISOR ANNABEL SANON M.D. Performed By: #### A DDONUAPLUS #### [address] Protein,Urine Negative Normal Negative [facility] Comment on above: Order Comment: Name Collection Type:: Clean-Voided Midstream Performed By: #### A DDONUAPLUS #### [place] [id number] [place] RBC LM.HPF (Urine sed) [#/Area] 0 /[HPF] Normal 0-4 [facility] Comment on above: Order Comment: Name Collection Type:: Clean-Voided Midstream Performed By: #### A DDONUAPLUS #### [address] Specificy [place],Urine 1.018 Normal 1.001-1.030 [facility] Comment on above: Order Comment: Name Collection Type:: Clean-Voided Midstream Performed By: #### A DDONUAPLUS #### [address] Squamous Epithelial Cell,Urine None Seen Normal 0-2 [facility] Comment on above: Order Comment: Name Collection Type:: Clean-Voided Midstream Performed By: #### A DDONUAPLUS #### [address] Urobilinogen,Urine Normal Normal Normal [facility] Comment on above: Order Comment: Name Collection Type:: Clean-Voided Midstream Performed By: #### A DDONUAPLUS #### [place] [id number] [place] WBC,Urine 1-2 Normal 0-4 [facility] Comment on above: Order Comment: Name Collection Type:: Clean-Voided Midstream Performed By: #### A DDONUAPLUS #### [facility] [address] [place] [address] ECG 12 lead ECGon 06-06-2023 ECG 12 lead ECG [facility] [address] [place] [address] Electrocardiograph Report Signed Patient: Faith Penn MR#: [id number] 655 : 1945 Acct:[id number] Age/Sex: 78 / M ADM Date: 06/06/23 Loc: ER Room: Type: [facility] ER Attending Dr: Ordering Provider: Leonides Velasquez DO Date of Service: 06/06/23 ECG/ECG 12 [...] significant change was found Confirmed by LEONIDES VELASQUEZ DO ([id number]) on 06/06/2023 11:12:25 PM Referred By: Electronically Signed By:LEONIDES VELASQUEZ DO Transcribed By: MUS Signed By Leonides Velasquez DO 2312 Normal [facility] Erythrocyte distribution wid th [Ratio] by Automated countOrdered By: Leonides Velasquez on 06-06-2023 Erythrocyte distribution width (RBC) [Ratio] 12.9 % Normal 12.0-14.8 Comment on above: Performed By: #### C BC, CMP #### [facility] [address] [place] [address] Erythrocytes [#/volume] in B lood by Automated countOrdered By: Leonides Velasquez on 06-06-2023 RBC (Bld) [#/Vol] 4.13 10*6/uL Normal 3.90-5.60 [facility] Comment on above: Performed By: #### C BC, CMP #### [facility] [address] Glucose [Mass/volume] in Ser um or PlasmaOrdered By: Leonides Velasquez on 06-06-2023 Glucose [Mass/Vol] 91 mg/dL Normal 70-100 [facility] Comment on above: ADA recommended refe rence rangeRandom Glucose Reference Range is dependent on time and content of last meal. Glucose of more than 200 mg/dL in a nonstressed, ambulatory subject supports the diagnosis of Diabetes Mellitus. Result Comment: [place] om Glucose Reference Range is dependent on time and content of last meal. Glucose of more than 200 mg/dL in a nonstressed, ambulatory subject supports the diagnosis of Diabetes Mellitus. ADA recommended reference range Performed By: #### C BC, CMP #### [address] Hematocrit [Volume Fraction] of Blood by Automated countOrdered By: Leonides Velasquez on 06-06-2023 Hematocrit (Bld) [Volume fraction] 39.6 % Normal 38.8-50.0 Comment on above: Performed By: #### C BC, CMP #### [address] Hemoglobin [Mass/volume] in BloodOrdered By: Leonides Velasquez on 06-06-2023 Hemoglobin (Bld) [Mass/Vol] 13.4 g/dL Normal 13.0-17.0 Comment on above: Performed By: #### C BC, CMP #### [address] Ketones Auto test strip (U) [Mass/Vol]Ordered By: Leonides Velasquez on 06-06-2023 Ketones (U) [Mass/Vol] 1+ Negative [facility] - UrinalysisOrder ed By: Leonides Velasquez on 06-06-2023 Hyaline casts LM Ql (Urine sed) None seen [LPF] 0-8 Leukocytes [#/volume] correc hunter for nucleated erythrocytes in Blood by Automated counOrdered By: Leonides Velasquez on 06-06-2023 WBC corrected for nucl RBC Auto (Bld) [#/Vol] 4.9 10*3/uL 4.1-10.5 Leukocytes [#/volume] in Blo od by Automated countOrdered By: Leonides Velasquez on 06-06-2023 WBC (Bld) [#/Vol] 4.9 10*3/uL Normal 4.1-10.5 [facility] Comment on above: Performed By: #### C BC, CMP #### [place] [id number] [place] Lymphocytes [#/volume] in Bl ood by Automated countOrdered By: Leonides Velasquez on 06-06-2023 Lymphocytes (Bld) [#/Vol] 0.6 10*3/uL Low 1.00-4.8 Comment on above: Performed By: #### C DIPIKA, CMP #### [place] [id number] [place] Lymphocytes/100 leukocytes i n Blood by Automated countOrdered By: Leonides Velasquez on 06-06-2023 Lymphocytes/100 WBC (Bld) 12.1 % Normal . Comment on above: Performed By: #### C BC, CMP #### [place] [id number] [place] MCH [Entitic mass] by Automa hunter countOrdered By: Leonides Velasquez on 06-06-2023 MCH (RBC) [Entitic mass] 32.4 pg Normal 27.5-35.2 Comment on above: Performed By: #### C BC, CMP #### [address] MCHC Auto (RBC) [Mass/Vol]Or dered By: Leonides Velasquez on 06-06-2023 MCHC (RBC) [Mass/Vol] 33.8 g/dL 32.5-35.6 [facility] MCV [Entitic volume] by Auto mated countOrdered By: Leonides Velasquez on 06-06-2023 MCV (RBC) [Entitic vol] 95.9 fL Normal 83.5-101 [facility] Comment on above: Performed By: #### C BC, CMP #### [facility] [address] Monocyte distribution width [Entitic volume] in Blood by AutomatedOrdered By: Leonides Velasquez on 06-06-2023 Monocyte distribution width Auto (Bld) [Entitic vol] 24.84 % 0.00-20.00 Comment on above: For adults in ED, MD W > 20.0 may be associated with a higher risk of sepsis during the first 12 hrs of hospital admission Neutrophils [#/volume] in Bl ood by Automated countOrdered By: Leonides Velasquez on 06-06-2023 Neutrophils (Bld) [#/Vol] 3.3 10*3/uL Normal 1.8-7.7 Comment on above: Performed By: #### C BC, CMP #### [facility] [address] Nitrite Test strip Ql (U)Ord ered By: Leonides Velasquez on 06-06-2023 Nitrite Ql (U) Negative Negative No Panel InformationOrdered By: Leonides Velasquez on 06-06-2023 Estimated GFR (CKD-EPI) > 60.0 mL/Min Pharmacy Creatinine Clearance (Chem 71.67 Nucleated erythrocytes [Pres ence] in Blood by Automated countOrdered By: Leonides Velasquez on 06-06-2023 Nucleated RBC Auto Ql (Bld) 0.1 /100{WBC} 0-0.5 Platelet mean volume [Entiti c volume] in Blood by Automated countOrdered By: Leonides Velasquez on 06-06-2023 Platelet mean volume (Bld) [Entitic vol] 7.4 fL Normal 6.6-10.1 Comment on above: Performed By: #### C BC, CMP #### [facility] [address] Platelets [#/volume] in Bloo d by Automated countOrdered By: Leonides Velasquez on 06-06-2023 Platelets (Bld) [#/Vol] 175 10*3/uL Normal 150-450 Comment on above: Performed By: #### C BC, CMP #### [address] Potassium [Moles/volume] in Serum or PlasmaOrdered By: Leonides Velasquez on 06-06-2023 Potassium [Moles/Vol] 3.8 mmol/L Normal 3.5-5.1 [facility] Comment on above: Performed By: #### C BC, CMP #### [address] Protein Auto test strip (U) [Mass/Vol]Ordered By: Leonides Velasquez on 06-06-2023 Protein (U) [Mass/Vol] Negative Negative [facility] Protein [Mass/volume] in Ser um or PlasmaOrdered By: Leonides Velasquez on 06-06-2023 Protein [Mass/Vol] 7.5 g/dL Normal 6.4-8.9 [facility] Comment on above: Performed By: #### C BC, CMP #### [address] Serum globulin measurement b y calculation (mass/volume)Ordered By: Leonides Velasquez on 06-06-2023 Globulin (S) [Mass/Vol] 3.2 g/dL Normal [facility] Comment on above: Performed By: #### C BC, CMP #### [address] Serum or plasma albumin/glob ulin mass ratioOrdered By: Leonides Velasquez on 06-06-2023 Albumin/Globulin [Mass ratio] 1.3 {ratio} Normal Comment on above: Performed By: #### C BC, CMP #### [address] Serum or plasma anion gap de terminationOrdered By: Leonides Velasquez on 06-06-2023 Anion gap [Moles/Vol] 8.3 mmol/L Normal 6.0-15.0 [facility] Comment on above: Performed By: #### C BC, CMP #### [facility] [address] [place] [address] [place] Sodium [Moles/volume] in Ser um or PlasmaOrdered By: Leonides Velasquez on 06-06-2023 Sodium [Moles/Vol] 133 mmol/L Low 136-145 [facility] Comment on above: Performed By: #### C BC, CMP #### [facility] [address] Specific gravity Auto test s trip (U) [Rel density]Ordered By: Leonides Velasquez on 06-06-2023 Specific gravity (U) [Rel density] 1.018 1.001-1.030 Squamous epithelial cells de tection in urine sediment by light microscopyOrdered By: Leonides Velasquez on 06-06-2023 Epithelial cells.squamous LM Ql (Urine sed) None seen [HPF] 0-2 Urea nitrogen [Mass/volume] in Serum or PlasmaOrdered By: Leonides Velasquez on 06-06-2023 Urea nitrogen [Mass/Vol] 16 mg/dL Normal 7-25 Comment on above: Performed By: #### C BC, CMP #### [facility] [address] [place] [address] Urine bacteria detection by automated methodOrdered By: Leonides Velasquez on 06-06-2023 Bacteria Auto Ql (U) 1+ None Seen [facility] Urine clarity by refractomet ry automatedOrdered By: Leonides Velasquez on 06-06-2023 Clarity Refractometry automated (U) Clear Clear Urine glucose measurement by automated test strip (mass/volume)Ordered By: Leonides Velasquez on 06-06-2023 Glucose Auto test strip (U) [Mass/Vol] Normal mg/dL Normal Urine hemoglobin detection b y automated test stripOrdered By: Leonides Velasquez on 06-06-2023 Hemoglobin Auto test strip Ql (U) Trace Negative Urine leukocyte esterase det ection by automated test stripOrdered By: Leonides Velasquez on 06-06-2023 Leukocyte esterase Auto test strip Ql (U) Negative Negative Urine pH measurement by auto mated test stripOrdered By: Leonides Velasquez on 06-06-2023 pH (U) 5.5 [pH] Normal 5.0-9.0 Comment on above: Order Comment: Name Collection Type:: Clean-Voided Midstream Performed By: #### A DDONUAPLUS #### [address] Urobilinogen Auto test strip (U) [Mass/Vol]Ordered By: Leonides Velasquez on 06-06-2023 Urobilinogen (U) [Mass/Vol] Normal mg/dL Normal XR chest 2V*on 06-06-2023 XR chest 2V* [facility] [address] [place] [address] XRay Report Signed Patient: Faith Penn MR#: [id number] 655 : 1945 Acct:[id number] Age/Sex: 78 / M ADM Date: 06/06/23 Loc: ER Room: Type: [facility] ER Attending Dr: Copies to: Leonides Velasquez DO Ordering Provider: Leonides Velasquez DO Date of Service: 06/06/23 XR/XR chest [...] Tristan Bruce M.D.06/06/2023 7:14 PM Dictation Location: [place] [address] Transcribed By: [facility] 06/06/231913 Dictated By: Tristan Bruce DO 06/06/231912 Signed By: 06/06/231913 Normal [facility] B12/Folate Panelon 3 Cobalamin (Vitamin B12) [Mass/Vol] 673 pg/mL Normal 232-1245 [facility] Comment on above: Performed By: #### B 12FOL, VD25 #### [facility] [address] [place] [address] Induction Machine Operator: Arnav Barnes MD #### CDP #### [facility] [address] [place] [address] Induction Machine Operator: Анна Biswas MD Folic Acid 15.9 ng/mL Normal >4.8 [facility] Comment on above: Performed By: #### B 12FOL, VD25 #### [address] [address] Induction Machine Operator: Arnav Barnes MD #### CDP #### [facility] [address] [place] [address] Induction Machine Operator: Анна Biswas MD CBC with Diffon 04-27-2023 Abs. Basophil 0.02 k/uL Normal 0.00-0.20 [facility] Comment on above: Performed By: #### Kelly 12FOL, VD25 #### [address] [address] Induction Machine Operator: Arnav Barnes MD #### CDP #### [facility] [address] [place] [address] Induction Machine Operator: Анна Biswas MD Abs.Imm.Granulocyte 0.01 k/uL Normal 0.00-0.30 [facility] Comment on above: Performed By: #### B 12FOL, VD25 #### [place] [address] [place] [address] Induction Machine Operator: Arnav Barnes MD #### CDP #### [facility] [address] [place] [address] Induction Machine Operator: Анна Biswas MD Abs.Neutrophil (Seg) 2.87 k/uL Normal 2.1-6.5 [facility] Comment on above: Performed By: #### B 12FOL, VD25 #### [facility] [address] [place] [address] Induction Machine Operator: Arnav Barnes MD #### CDP #### [facility] [address] [place] [address] Induction Machine Operator: Анна Biswas MD Basophils/100 WBC (Bld) 0 % Normal 0-[address] [facility] Comment on above: Performed By: #### B 12FOL, VD25 #### [facility] [address] [place] [address] Induction Machine Operator: Arnav Barnes MD #### CDP #### [facility] [address] [place] [address] Induction Machine Operator: Анна Biswas MD Eosinophils (Bld) [#/Vol] 0.06 10*3/uL Normal 0.00-0.40 [facility] Comment on above: Performed By: #### B 12FOL, VD25 #### [address] [address] Induction Machine Operator: Arnav Barnes MD #### CDP #### [facility] [address] [place] [address] Induction Machine Operator: Анна Biswas MD Eosinophils/100 WBC (Bld) 1 % Normal 0-5 [facility] Comment on above: Performed By: #### B 12FOL, VD25 #### [facility] [facility] [address] [place] [id number] Induction Machine Operator: Arnav Barnes MD #### CDP #### [facility] [address] [place] [address] Induction Machine Operator: Анна Biswas MD Immature granulocytes/100 WBC (Bld) 0 % Normal 0-5 [facility] Comment on above: Performed By: #### B 12FOL, VD25 #### [address] [id number] Induction Machine Operator: Arnav Barnes MD #### CDP #### [facility] [address] [place], [place] [id number] Induction Machine Operator: Анна Biswas MD Lymphocytes (Bld) [#/Vol] 1.60 10*3/uL Normal 1.00-4.80 [facility] Comment on above: Performed By: #### B 12FOL, VD25 #### [address] [id number] Induction Machine Operator: Arnav aBrnes MD #### CDP #### [facility] [address] [place], [place] [phone] Induction Machine Operator: Анна Biswas MD Lymphocytes/100 WBC (Bld) 32 % Normal 13-44 [facility] Comment on above: Performed By: #### Kelly 12FOL, VD25 #### [address] [address] Induction Machine Operator: Arnav Barnes MD #### CDP #### [facility] [address] [place], [place] [id number] Induction Machine Operator: Анна Biswas MD Monocytes (Bld) [#/Vol] 0.51 10*3/uL Normal 0.00-1.00 [facility] Comment on above: Performed By: #### B 12FOL, VD25 #### [address] [address] Induction Machine Operator: Arnav Barnes MD #### CDP #### [facility] [address] [place] [address] Induction Machine Operator: Анна Biswas MD Monocytes/100 WBC (Bld) 10 % High 5-[address] [facility] Comment on above: Performed By: #### B 12FOL, VD25 #### [address] [id number] Induction Machine Operator: Arnav Barnes MD #### CDP #### [facility] [address] [place], [place] [phone] Induction Machine Operator: Анна Biswas MD Neutrophil (Seg) 57 % Normal 39-75 [facility] Comment on above: Performed By: #### B 12FOL, VD25 #### [address] [id number] Induction Machine Operator: Arnav Barnes MD #### CDP #### [facility] [address] [place], [place] [phone] Induction Machine Operator: Анна Biswas MD Erythrocyte distribution width (RBC) [Ratio] 12.8 % Normal 12.1-15.2 [facility] Comment on above: Performed By: #### B 12FOL, VD25 #### [address] [phone] Induction Machine Operator: Arnav Barnes MD #### CDP #### [facility] [address] [place], [place] [phone] Induction Machine Operator: Анна Biswas MD Hematocrit (Bld) [Volume fraction] 43.9 % Normal 41.0-53.0 [facility] Comment on above: Performed By: #### B 12FOL, VD25 #### [address] [address] Induction Machine Operator: Arnav Barnes MD #### CDP #### [facility] [address] [place], [place] [phone] Induction Machine Operator: Анна Biswas MD Hemoglobin (Bld) [Mass/Vol] 14.7 g/dL Normal 13.5-17.5 [facility] Comment on above: Performed By: #### B 12FOL, VD25 #### [address] [phone] Induction Machine Operator: Arnav Barnes MD #### CDP #### [facility] [address] [place] [address] Induction Machine Operator: Анна Biswas MD MCH (RBC) [Entitic mass] 31.8 pg Normal 26.0-34.0 [facility] Comment on above: Performed By: #### B 12FOL, VD25 #### [address] [id number] Induction Machine Operator: Arnav Barnes MD #### CDP #### [facility] [address] [place] [address] Induction Machine Operator: Анна Biswas MD MCHC (RBC) [Mass/Vol] 33.5 g/dL Normal 31.0-37.0 [facility] Comment on above: Performed By: #### B 12FOL, VD25 #### [address] [phone] Induction Machine Operator: Arnav Barnes MD #### CDP #### [facility] [address] [place] [address] Induction Machine Operator: Анна Biswas MD MCV (RBC) [Entitic vol] 95.0 fL Normal 80.0-100.[address] [facility] Comment on above: Performed By: #### B 12FOL, VD25 #### [address] [phone] Induction Machine Operator: Arnav Barnes MD #### CDP #### [facility] [address] [place] [address] Induction Machine Operator: Анна Biswas MD Platelet mean volume (Bld) [Entitic vol] 9.0 fL Normal 6.0-12.0 [facility] Comment on above: Performed By: #### B 12FOL, VD25 #### [address] [phone] Induction Machine Operator: Arnav Barnes MD #### CDP #### [facility] [address] [place], [place] [phone] Induction Machine Operator: Анна Biswas MD Platelets (Bld) [#/Vol] 191 10*3/uL Normal 140-450 [facility] Comment on above: Performed By: #### B 12FOL, VD25 #### [address] [place], [place] [phone] Induction Machine Operator: Arnav Barnes MD #### CDP #### [facility] [address] [place], [place] [phone] Induction Machine Operator: Анна Biswas MD RBC (Bld) [#/Vol] 4.62 10*6/uL Normal 4.50-5.90 [facility] Comment on above: Performed By: #### B 12FOL, VD25 #### [address] [address] Induction Machine Operator: Arnav Barnes MD #### CDP #### [facility] [address] [place], [place] [phone] Induction Machine Operator: Анна Biswas MD WBC (Bld) [#/Vol] 5.1 10*3/uL Normal 3.5-11.0 [facility] Comment on above: Performed By: #### B 12FOL, VD25 #### [address] [address] Induction Machine Operator: Arnav Barnes MD #### CDP #### [facility] [address] [place], [place] [phone] Induction Machine Operator: Анна Biswas MD Vitamin D 25 OHon 04-27-2023 Vitamin D 25 [place] 41.3 ng/mL Normal 30.0-100.0 [facility] Comment on above: Result Comment: Reference Range: Vitamin D status Range Deficiency <20 ng/mL Mild Deficiency 20-30 ng/mL Sufficiency 30-100 ng/mL Toxicity >100 ng/mL Performed By: #### B 12FOL, VD25 #### [address] [address] Induction Machine Operator: Arnav Barnes MD #### CDP #### [facility] [address] [place], [place] [phone] Induction Machine Operator: Анна Biswas MD Comp Metabolic Profon 2022 Albumin [Mass/Vol] 4.2 g/dL Normal 3.5-5.2 [facility] Comment on above: Performed By: #### Shahnaz FAST, CP #### [facility] [address] [place], [place] [phone] Induction Machine Operator: Анна Biswas MD #### MARGA PSAS #### [address] [phone] Induction Machine Operator: Arnav Barnes MD Alkaline Phos 50 U/L Normal 40-129 [facility] Comment on above: Performed By: #### Shahnaz FAST, CP #### [facility] [address] [place], [place] [phone] Induction Machine Operator: Анна Biswas MD #### MARGA, PSAS #### [address] [phone] Induction Machine Operator: Arnav Barnes MD ALT [Catalytic activity/Vol] 21 U/L Normal 5-41 [facility] Comment on above: Performed By: #### Shahnaz FAST, CP #### [facility] [address] [place], [place] [phone] Induction Machine Operator: Анна Biswas MD #### LIPR, PSAS #### [address] [address] Induction Machine Operator: Arnav Barnes MD Anion gap [Moles/Vol] 8 mmol/L Low 9-17 [facility] Comment on above: Performed By: #### Shahnaz FAST, CP #### [facility] [address] [place], [place] [phone] Induction Machine Operator: Анна Biswas MD #### TRICIAR, PSAS #### [address] [address] Induction Machine Operator: Arnav Barnes MD AST [Catalytic activity/Vol] 20 U/L Normal <40 [facility] Comment on above: Performed By: #### Shahnaz FAST, CP #### [facility] [address] [place] [address] Induction Machine Operator: Анна Biswas MD #### MARGA, PSAS #### [address] [address] Induction Machine Operator: Arnav Barnes MD Bilirubin [Mass/Vol] 0.5 mg/dL Normal 0.3-1.2 [facility] Comment on above: Performed By: #### Shahnaz FAST, CP #### [facility] [address] [place] [address] Induction Machine Operator: Анна Biswas MD #### MARGA, PSAS #### [address] [address] Induction Machine Operator: Arnav Barnes MD BUN/CRE Ratio 17 Normal 9-20 [facility] Comment on above: Performed By: #### Shahnaz FAST, CP #### [facility] [address] [place] [address] Induction Machine Operator: Анна Biswas MD #### LIPR, PSAS #### [address] [address] Induction Machine Operator: Arnav Barnes MD Calcium [Mass/Vol] 9.2 mg/dL Normal 8.6-10.4 [facility] Comment on above: Performed By: #### Shahnaz FAST, CP #### [facility] [address] [place], [place] [phone] Induction Machine Operator: Анна Biswas MD #### LIPR, PSAS #### [address] [phone] Induction Machine Operator: Arnav Barnes MD Chloride [Moles/Vol] 104 mmol/L Normal 98-107 [facility] Comment on above: Performed By: #### Shahnaz FAST, CP #### [facility] [address] [place], [place] [phone] Induction Machine Operator: Анна Biswas MD #### LIPR, PSAS #### [address] [phone] Induction Machine Operator: Arnav Barnes MD CO2 [Moles/Vol] 27 mmol/L Normal 20-31 [facility] Comment on above: Performed By: #### Shahnaz FAST, CP #### [facility] [address] [place], [place] [phone] Induction Machine Operator: Анна Biswas MD #### MARGA, PSAS #### [address] [phone] Induction Machine Operator: Arnav Barnes MD Creatinine [Mass/Vol] 1.0 mg/dL Normal 0.7-1.2 [facility] Comment on above: Performed By: #### Shahnaz FAST, CP #### [facility] [address] [place], [place] [phone] Induction Machine Operator: Анна Biswas MD #### LIPR, PSAS #### [address] [phone] Induction Machine Operator: Arnav Barnes MD GFR/1.73 sq M.predicted among non-blacks MDRD (S/P/Bld) [Vol rate/Area] mL/min/{1.73_m2} Normal >60 [facility] Comment on above: Result Comment: These [...] affects renal tubular secretion. Performed By: #### Z FAST, CP #### [facility] [address] [place] [address] Induction Machine Operator: Анна Biswas MD #### LIPR, PSAS #### [address] [phone] Induction Machine Operator: Arnav Barnes MD Glucose [Mass/Vol] 106 mg/dL High 70-99 [facility] Comment on above: Performed By: #### Z FAST, CP #### [facility] [address] [place] [address] Induction Machine Operator: Анна Biswas MD #### LIPR, PSAS #### [address] [phone] Induction Machine Operator: Arnav Barnes MD Potassium [Moles/Vol] 4.1 mmol/L Normal 3.7-5.3 [facility] Comment on above: Performed By: #### Z FAST, CP #### [facility] [address] [place] [address] Induction Machine Operator: Анна Biswas MD #### LIPR, PSAS #### [address] [phone] Induction Machine Operator: Arnav Barnes MD Protein [Mass/Vol] 7.0 g/dL Normal 6.4-8.3 [facility] Comment on above: Performed By: #### Z FAST, CP #### [facility] [address] [place] [address] Induction Machine Operator: Анна Biswas MD #### LIPR, PSAS #### [address] [address] Induction Machine Operator: Arnav Barnes MD Sodium [Moles/Vol] 139 mmol/L Normal 135-144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 Normal 3.5-5.7 [facility] Comment on above: Order Comment: No: D o not add to previous draw Performed By: #### 0 0121 #### [facility] [address] [place] [address], [facility] ALKALINE PHOSPH 39 IU/L Normal 34-104 [facility] Comment on above: Order Comment: No: D o not add to previous draw Performed By: #### 0 0121 #### [facility] [address] [place] [address], [facility] ALT [Catalytic activity/Vol] 22 U/L Normal 7-52 The [facility] Comment on above: Order Comment: No: D o not add to previous draw Performed By: #### 0 0121 #### [facility] [address] [place] [address], [place] AST [Catalytic activity/Vol] 15 U/L Normal 13-39 The [facility] Comment on above: Order Comment: No: D o not add to previous draw Performed By: #### 0 0121 #### [facility] [address] [place] [address], [place] Bilirubin [Mass/Vol] 0.5 mg/dL Normal 0.3-1.0 The [facility] Comment on above: Order Comment: No: D o not add to previous draw Performed By: #### 0 0121 #### [facility] [address] [place] [address], [place] Calcium [Mass/Vol] 8.9 mg/dL Normal 8.6-10.3 [facility] Comment on above: Order Comment: No: D o not add to previous draw Performed By: #### 0 0121 #### [facility] [address] [place] [address], [place] Chloride [Moles/Vol] 104 mmol/L Normal 98-107 The [facility] Comment on above: Order Comment: No: D o not add to previous draw Performed By: #### 0 0121 #### [facility] [address] [place] [address], [place] CO2 [Moles/Vol] 25 mmol/L Normal 21-31 The [facility] Comment on above: Order Comment: No: D o not add to previous draw Performed By: #### 0 0121 #### [facility] [address] [place] [address], [place] Creatinine [Mass/Vol] 0.73 mg/dL Normal 0.70-1.30 The [facility] Comment on above: Order Comment: No: D o not add to previous draw Performed By: #### 0 0121 #### [facility] [address] [place] [address], [place] GFR/1.73 sq M.predicted among blacks MDRD (S/P/Bld) [Vol rate/Area] mL/min/{1.73_m2} Normal >60 The [facility] Comment on above: Order Comment: No: D o not add to previous draw Result Comment: Calc ulation may not be valid for patients over 70 years Performed By: #### 0 0121 #### [facility] [address] [place] [address], [place] GFR/1.73 sq M.predicted among non-blacks MDRD (S/P/Bld) [Vol rate/Area] mL/min/{1.73_m2} Normal >60 The [facility] Comment on above: Order Comment: No: D o not add to previous draw Result Comment: Calc ulation may not be valid for patients over 70 years Performed By: #### 0 0121 #### [facility] [address] [place] [address], [place] Glucose [Mass/Vol] 115 mg/dL High 70-100 [facility] Comment on above: Order Comment: No: D o not add to previous draw Performed By: #### 0 0121 #### [facility] [address] [place] [address], [place] Potassium [Moles/Vol] 3.8 mmol/L Normal 3.5-5.1 The [facility] Comment on above: Order Comment: No: D o not add to previous draw Performed By: #### 0 0121 #### [facility] [address] [place] [address], [place] Protein [Mass/Vol] 6.4 g/dL Normal 6.0-8.3 [facility] Comment on above: Order Comment: No: D o not add to previous draw Performed By: #### 0 0121 #### [facility] [address] [place] [address], [place] Sodium [Moles/Vol] 135 mmol/L Low 136-145 [facility] Comment on above: Order Comment: No: D o not add to previous draw Performed By: #### 0 0121 #### [facility] [address] Urea nitrogen [Mass/Vol] 14 mg/dL Normal 7-25 The [facility] Comment on above: Order Comment: No: D o not add to previous draw Performed By: #### 0 0121 #### [facility] [address] [facility]. [address] PROTHROMBIN TIMEon 2 INR Coag (PPP) [Relative time] 1.09 {INR} Normal 0.91-1.16 The [facility] Comment on above: Result [...] By: #### 5 0608 #### [facility] [address] [place] [address], [facility] PT Coag (PPP) [Time] 14.1 s Normal 12.3-14.8 The [facility] Comment on above: Result Comment: ALL RESULTS MUST BE INTERPRETED WITH RESPECT TO BLOOD DRAWING ARTIFACT OR DILUTION ERROR OF ANTICOAGULANT AT THE TIME OF SAMPLING. Performed By: #### 5 0608 #### [facility] [address] MRI BRAIN WO CONTRASTOrdered By: Candace Giron on 03-29-2021 Mild cerebral atroph y with minimal small vessel ischemic changes of the supratentorial white matter. [employer] Phone: EXAM: MRI BRAIN WO CONTRAST HISTORY: [...] the paranasal sinuses and mastoid air cells. [employer] Phone: Kenneth, [facility] Incoming Radiant Results From [employer] - 03/29/2021 3:13 PM EDT EXAM: MRI [...] ischemic changes of the supratentorial white matter. [employer]Pole Phone: LightPole Phone: Basic Metabolic PanelOrdered By: Candace Giron on 10-22-2020 Anion gap [Moles/Vol] 8 mmol/L Low 9 - 17 mmol/L [employer] Phone: Calcium [Mass/Vol] 9.3 mg/dL 8.6 - 10. 4 mg/dL [employer] Phone: Chloride [Moles/Vol] 103 mmol/L 98 - 10 7 mmol/L [employer] Phone: CO2 [Moles/Vol] 27 mmol/L 20 - 31 mmol/L [employer] Phone: Creatinine [Mass/Vol] 0.79 mg/dL 0.70 - 1.20 mg/dL [employer] Phone: GFR >60 >60 mL/min [id number] Phone: GFR Non- >60 >60 mL/min [employer] Phone: GFR/1.73 sq M.predicted MDRD (S/P/Bld) [Vol rate/Area] [employer] Phone: Comment on above: Average GFR for 70 o r more years old: 75 mL/min/1.73sq m Chronic Kidney Disease: <60 mL/min/1.73sq m Kidney failure: <15 mL/min/1.73sq m eGFR calculated using average adult body mass. Additional eGFR calculator available at: http://www.Lazarus Effect.youbeQ - Maps With Life/multiple_crcl_2012.htm GFR/1.73 sq M.predicted MDRD (S/P/Bld) [Vol rate/Area] NOT REPORTED [employer] Phone: Glucose [Mass/Vol] 111 mg/dL High 70 - 99 mg/dL [employer] Phone: Interpretation and review of laboratory results Abnormal [employer] Phone: Potassium [Moles/Vol] 4.1 mmol/L 3.7 - 5.3 mmol/L [employer] Phone: Sodium [Moles/Vol] 138 mmol/L 135 - 144 mmol/L [employer] Phone: Urea nitrogen (BldV) [Mass/Vol] 19 mg/dL 8 - 23 mg/dL [employer] Phone: Urea nitrogen/Creatinine (Bld) [Mass ratio] 24 High [employer] Work Phone: CBC Auto DifferentialOrdered By: Candace Giron on 10-22-2020 Absolute Eos # 0.10 [facility] Work Phone: Absolute Immature Granulocyte NOT REPORTED [employer] Work Phone: Absolute Lymph # 1.70 [facility] Work Phone: Absolute Harvey # 0.50 [facility] Work Phone: Basophils (Bld) [#/Vol] 0.00 10*3/uL [employer] Work Phone: Basophils/100 WBC (Bld) 1 % 0 - 2 % M [employer] Work Phone: Differential Type YES [facility] Work Phone: Eosinophils/100 WBC (Bld) 1 % 0 - 5 % [employer] Phone: Hematocrit (Bld) [Volume fraction] 43.1 % 41 - 53 % [employer] Work Phone: Hemoglobin.gastrointest inal spec 1 Ql (Stl) 14.6 g/dL 13.5 - 17.5 g/dL [employer] Phone: Immature Granulocytes NOT REPORTED 0 % M [employer] Work Phone: Interpretation and review of laboratory results Abnormal [employer] Phone: Lymphocytes/100 WBC (Bld) 33 % 13 - 44 % [employer] Work Phone: MCH (RBC) [Entitic mass] 32.8 pg 26 - 34 pg [employer] Phone: MCHC (RBC) [Mass/Vol] 33.9 g/dL 31 - 3 7 g/dL [employer] Phone: MCV (RBC) [Entitic vol] 96.6 fL 80 - 100 fL [employer] Phone: Monocytes/100 WBC (Bld) 9 % 5 - 9 % [facility] Phone: NRBC Automated NOT REPORTED per 100 WBC [facility] Work Phone: Platelet distribution width (Bld) [Ratio] 13.1 % 12.1 - 15.2 % [employer] Phone: Platelet Estimate NOT REPORTED [employer] Phone: Platelet mean volume (Bld) [Entitic vol] NOT REPORTED 6.0 - 12.0 fL [employer] Phone: Platelets (Bld) [#/Vol] 241 10*3/uL [employer] Phone: RBC (Bld) [#/Vol] 4.46 10*6/uL Low 4.5 - 5.9 m/uL [employer] Phone: RBC (Bld) [#/Vol] NOT REPORTED [employer] Phone: Segmented neutrophils/100 WBC (Bld) 56 % 39 - 75 % [employer] Phone: Segs Absolute 2.90 [facility] Work Phone: WBC (Bld) [#/Vol] 5.1 10*3/uL [employer] Phone: WBC (Bld) [#/Vol] NOT REPORTED [employer] Phone: [employer]ole Phone: Hepatic Function PanelOrdere d By: Candace Giron on 10-22-2020 Albumin [Mass/Vol] 4.2 g/dL 3.5 - 5.2 g/dL [employer] Phone: Albumin/Globulin Ratio NOT REPORTED [employer] Phone: ALP (Bld) [Catalytic activity/Vol] 52 U/L 40 - 129 U/L [employer] Phone: ALT [Catalytic activity/Vol] 28 U/L 5 - 41 U/L [employer] Phone: AST [Catalytic activity/Vol] 23 U/L <40 [employer] Phone: Bilirubin [Mass/Vol] 0.33 mg/dL 0.30 - 1.20 mg/dL [employer] Phone: Bilirubin, Indirect CANNOT BE CALCULATED 0.00 - 1.00 mg/dL [employer] Phone: Bilirubin.indirect [Mass/Vol] mg/dL <0.31 mg/dL [employer] Phone: Free PSA/Total PSA [Mass fraction] 7.0 g/dL 6.4 - 8.3 g/dL [employer] Phone: Globulin NOT REPORTED 1.5 - 3.8 g/dL [employer] Phone: Lipid PanelOrdered By: Candace Giron on 10-22-2020 Cholesterol [Mass/Vol] 145 mg/dL <200 [facility] Phone: Comment on above: Cholesterol Guidelines: <200 Desirable 200-240 Borderline >240 Undesirable Cholesterol in HDL [Mass/Vol] 54 mg/dL >40 [employer] Phone: Comment on above: HDL Guidelines: <40 Undesirable 40-59 Borderline >59 Desirable Cholesterol in LDL [Mass/Vol] 85 mg/dL 0 - 130 mg/dL [employer] Phone: Comment on above: LDL Guidelines: <100 Desirable 100-129 Near to/above Desirable 130-159 Borderline >159 Undesirable Direct (measured) LDL and calculated LDL are not interchangeable tests. Cholesterol in VLDL [Mass/Vol] NOT REPORTED 1 - 30 mg/dL [facility]: Cholesterol.total/Ninoska sterol in HDL [Mass ratio] 2.7 {ratio} <5 [facility]: Triglyceride [Mass/Vol] 31 mg/dL <150 [facility]: Comment on above: Triglyceride Guidelines: <150 Desirable 150-199 Borderline 200-499 High >499 Very high Based on AHA Guidelines for fasting triglyceride, March 2012. LightPole Phone: No Panel InformationOrdered By: Candace Giron on 10-22-2020 LightPole Phone: PSA screeningOrdered By: Flora Giron on 10-22-2020 LightPole Phone: Patient Fasting?Ordered By: Candace Giron on 10-22-2020 Patient Fasting? yes [employer] Phone: [facility]: TSH with ReflexOrdered By: Dori Giron on 10-22-2020 TSH Qn 2.71 m[IU]/L [facility]: Comprehensive Metabolic Pane ruth 08-25-2019 Albumin [Mass/Vol] 4.8 g/dL 3.5 - 5.2 g/dL [facility] [place] Albumin/Globulin [Mass ratio] NOT REPORTED [facility] [place] ALP [Catalytic activity/Vol] 49 U/L 40 - 129 U/L [facility] [place] ALT [Catalytic activity/Vol] 39 U/L 5 - 41 U/L [place] Anion gap [Moles/Vol] 11 mmol/L 9 - 17 mmol/L [place] AST [Catalytic activity/Vol] 27 U/L <40 [place] Bilirubin Ql (U) 0.76 mg/dL 0.3 - 1.2 mg/dL [place] Bun/Cre Ratio 17 [place] Calcium [Mass/Vol] 10.5 mg/dL High 8.6 - 10. 4 mg/dL [place] Chloride [Moles/Vol] 99 mmol/L 98 - 10 7 mmol/L [place] CO2 [Moles/Vol] 28 mmol/L 20 - 31 mmol/L [place] Creatinine [Mass/Vol] 0.95 mg/dL 0.7 - 1.2 mg/dL [place] GFR >60 >60 mL/min [place] GFR Non- >60 >60 mL/min [place] GFR/1.73 sq M predicted among non-blacks MDRD (S/P/Bld) [Vol rate/Area] [place] Comment on above: Average GFR for 70 o r more years old: 75 mL/min/1.73sq m Chronic Kidney Disease: <60 mL/min/1.73sq m Kidney failure: <15 mL/min/1.73sq m eGFR calculated using average adult body mass. Additional eGFR calculator available at: http://www.Lazarus Effect.youbeQ - Maps With Life/multiple_crcl_2012.htm GFR/1.73 sq M predicted among non-blacks MDRD (S/P/Bld) [Vol rate/Area] NOT REPORTED [place] Glucose [Mass/Vol] 111 mg/dL High 70 - 99 mg/dL [place] Interpretation and review of laboratory results Abnormal [place] Potassium [Moles/Vol] 4.6 mmol/L 3.7 - 5.3 mmol/L [place] Protein [Mass/Vol] 8.1 g/dL 6.4 - 8.3 g/dL [place] Sodium [Moles/Vol] 138 mmol/L 135 - 144 mmol/L [place] Urea nitrogen [Mass/Vol] 16 mg/dL 8 - 23 mg/dL [place] Lipid Panelon 08-25-2019 Cholesterol [Mass/Vol] 154 mg/dL <200 [place] Comment on above: Cholesterol Guidelines: <200 Desirable 200-240 Borderline >240 Undesirable Cholesterol in HDL [Mass/Vol] 65 mg/dL >40 [place] Comment on above: HDL Guidelines: <40 Undesirable 40-59 Borderline >59 Desirable Cholesterol in LDL [Mass/Vol] 82 mg/dL 0 - 130 mg/dL [place] Comment on above: LDL Guidelines: <100 Desirable 100-129 Near to/above Desirable 130-159 Borderline >159 Undesirable Direct (measured) LDL and calculated LDL are not interchangeable tests. Cholesterol in VLDL [Mass/Vol] NOT REPORTED 1 - 30 mg/dL [place] Cholesterol.total/Ninoska sterol in HDL [Mass ratio] 2.4 {ratio} <5 [place] Triglyceride [Mass/Vol] 36 mg/dL <150 M [place], [place] Comment on above: Triglyceride Guidelines: <150 Desirable 150-199 Borderline 200-499 High >499 Very high Based on AHA Guidelines for fasting triglyceride, March 2012. Patient Fasting?on 0 Patient Fasting? yes [place] TSH with Reflexon 08-25-2019 TSH Qn 3.70 m[IU]/L [place] VL DUP CAROTID BILATERALon 0 08-25-[address] [facility] Car[facility] Procedure Patient Name BORES Date of Study 08/25/2019 FAITH Lombardo Date of 1945 Gender Male Age 74 year(s) Race Room Number US Corporate ID [id number] # Patient Acct [id number] # MR # [id number] Analytics Associate MICHELLE Toscano Danelle Interpreting Physician Anusha Lopez Referring Candace Giron Referring Physician Nurse SENIOR WEB DESIGNER Practitioner Procedure Type of Study: Cerebral: Carotid, [...] side. - Additional Measurements:ICAPSV/CC APSV 1.73.ICAEDV/CCAEDV 1.84. [facility] [place], [place] Kenneth, M[facility] Incoming Cardio Results From [facility] - 08/25/2019 2:[address] [facility] Carotid Procedure Patient Name CHARLINE Date of Study 08/25/2019 FAITH Lombardo Date of 1945 Gender Male Age 74 year(s) Race Room Number US Corporate ID [id number] # Patient Acct [id number] # MR # [id number] Analytics Associate MICHELLE Toscano Danelle Interpreting Physician Anusha Lopez Referring Candace Giron Referring Physician Nurse SENIOR WEB DESIGNER Practitioner Procedure Type of Study: Cerebral: Carotid, [...] side. - Additional Measurements:ICAPSV/CC APSV 1.73.ICAEDV/CCAEDV 1.84. [place] Vitamin B12 & Folateon 08-24 Cobalamin (Vitamin B12) [Mass/Vol] 944 pg/mL 232 - 1245 pg/mL [place] Folate >20.0 >4.8 ng/mL [place] Vital Signs Date Time Vital Sign Value Performing Clinician David morales 01-27-2024 10:33-0400 Blood Pressure Location Chintan GRACIA [facility] 01-27-2024 10:33-0400 Diastolic blood pressure 71 mm[Hg] Chintan GRACIA [facility] 01-27-2024 10:33-0400 Heart rate 81 /min Chintan GRACIA [facility] 01-27-2024 10:33-0400 Systolic blood pressure 116 mm[Hg] Chintan GRACIA [facility] 01-11-2024 11:08-0400 Blood Pressure Location Humaira Orzech [facility] 01-11-2024 11:08-0400 Body temperature 96.8 [degF] Humaira Orzech [facility] 01-11-2024 11:08-0400 Diastolic blood pressure 72 mm[Hg] Humaira Orzech [facility] 01-11-2024 11:08-0400 Heart rate 70 /min Humaira Orzech [facility] 01-11-2024 11:08-0400 Systolic blood pressure 128 mm[Hg] Humaira Orzech [facility] 12-31-2023 09:24-0400 Blood Pressure Location Makayla Galea [facility] 12-31-2023 09:24-0400 Diastolic blood pressure 76 mm[Hg] Makayla Galea [facility] 12-31-2023 09:24-0400 Heart rate 72 /min Makayla Galea [facility] 12-31-2023 09:24-0400 Respiratory rate 16 /min Makayla Galea [facility] 12-31-2023 09:24-0400 Systolic blood pressure 124 mm[Hg] Makayla Galea [facility] 06-06-2023 19:37-0500 Body temperature 99.2 [degF] FEEDER DRIVERAliya Rubalcava Bree Work Phone: 06-06-2023 19:37-0500 Diastolic blood pressure 82 mm[Hg] FEEDER DRIVERAliya Rubalcava Bree Work Phone: 06-06-2023 19:37-0500 Heart rate 76 /min FEEDER DRIVERAliya Rubalcava Bree Work Phone: [phone] [place] [address] 06-06-2023 19:37-0500 Respiratory rate 22 /min FEEDER DRIVERAliya Rubalcava Bree Work Phone: [phone] [place] [address] 06-06-2023 19:37-0500 SaO2% (BldA) [Mass fraction] 99 % FEEDER DRIVERAliya Rubalcava Bree Work Phone: 06-06-2023 19:37-0500 Systolic blood pressure 179 mm[Hg] FEEDER DRIVERAliya Rubalcava Bree Work Phone: 06-06-2023 14:59-0500 Body height 185.42 cm FEEDER DRIVERAliya Rubalcava Bree Work Phone: [phone] [place] [address] 06-06-2023 14:59-0500 Body weight 84.7 kg FEEDER DRIVERAliya Rubalcava Bree Work Phone: 01-07-2023 10:31-0400 Diastolic blood pressure 118 mm[Hg] Chintan GRACIA [facility] 01-07-2023 10:31-0400 Heart rate 87 /min Chintan KATHY [facility] 01-07-2023 10:31-0400 Systolic blood pressure 157 mm[Hg] Chintan COOK [facility] 04-15-2022 09:28-0500 Diastolic blood pressure 77 mm[Hg] FEEDER DRIVERAliya Giron Work Phone: 04-15-2022 09:28-0500 Heart rate 58 /min FEEDER DRIVER Candace Giron Work Phone: 04-15-2022 09:28-0500 Respiratory rate 18 /min FEEDER DRIVER Candace Giron Work Phone: 04-15-2022 09:28-0500 SaO2% (BldA) [Mass fraction] 100 % FEEDER DRIVER Candace Giron Work Phone: 04-15-2022 09:28-0500 Systolic blood pressure 125 mm[Hg] FEEDER DRIVER Candace Giron Work Phone: 04-15-2022 07:33-0500 Body height 185.42 cm FEEDER DRIVER Candace Giron Work Phone: 04-15-2022 07:33-0500 Body temperature 97.9 [degF] FEEDER DRIVER Candace Giron Work Phone: 04-15-2022 07:33-0500 Body weight 79.37 kg FEEDER DRIVER Candace Giron Work Phone: 01-13-2022 10:01-0400 Blood Pressure Location Chintan GRACIA [facility] 01-13-2022 10:01-0400 Diastolic blood pressure 83 mm[Hg] Chintan GRACIA [facility] 01-13-2022 10:01-0400 Heart rate 81 /min Chintan GRACIA [facility] 01-13-2022 10:01-0400 Respiratory rate 16 /min Chintan GRACIA [facility] 01-13-2022 10:01-0400 Systolic blood pressure 129 mm[Hg] Chintan GRACIA [facility] [place] Encounters Encounter Date Encounter Type Care Provider Facility Start: 01-27-2024 End: 01-27-2024 ambulatory [facility]ANDACE [facility]IR[facility] Start: 01-27-2024 End: 01-27-2024 Patient encounter procedure Chintan GRACIA [facility] [place] Start: 01-11-2024 End: 01-11-2024 ambulatory Humaira X Orzech [facility] Start: 01-11-2024 End: 01-11-2024 Patient encounter procedure Humaira X Orzech [facility] [place] Start: 01-06-2024 ambulatory CANDACE BREE Facility:[facility] [place] Start: 01-02-2024 End: 01-02-2024 ambulatory Charles Sudhir Julio Facility:CD:[id number] Start: 12-31-2023 End: 12-31-2023 ambulatory CANDACE GIRON Facility:[facility] Start: 12-31-2023 End: 12-31-2023 Patient encounter procedure Makayla Corona [facility] Start: 12-30-2023 End: 12-30-2023 [facility] Start: 12-29-2023 End: 12-30-2023 Evaluation and management of inpatient CARLOS MANUEL F CAYETANO [facility] Start: 12-21-2023 End: 12-21-2023 Evaluation and management of inpatient CANDACE Medina [facility] Start: 12-02-2023 End: 12-04-2023 ambulatory [facility] Start: 12-01-2023 End: 12-01-2023 ambulatory [facility] Start: 11-12-2023 End: 11-12-2023 ambulatory [facility] Start: 10-31-2023 ambulatory [facility] Start: 08-04-2023 End: 08-04-[address] [facility] Start: 06-06-2023 End: 06-06-2023 Emergency department patient visit FEEDER DRIVERAliya Giron Work Phone: [facility] Work Phone: Start: 04-27-2023 End: 04-27-2023 ambulatory [facility] Start: 03-16-2023 End: 03-16-2023 ambulatory [facility] Start: 01-07-2023 End: 01-07-2023 Patient encounter procedure Chintan GRACIA [facility] Start: 08-26-2022 End: 08-26-2022 Patient encounter procedure Chintan GRACIA [facility] Start: 08-12-2022 End: 08-13-[address] MORE TRAORE Facility:[facility] Start: 04-21-2022 End: 04-21-2022 Subsequent hospital visit by physician Candace Giron APRN - [facility] Work Phone: [facility] Comment on above: Mixed hyperlipidemia ; Bilateral carotid artery stenosis; Essential hypertension; History of alcoholism (HCC); Primary hypertension Start: 04-15-2022 End: 04-15-2022 Admission to same day surgery center PORTER Giron Work Phone: [facility] Start: 04-15-2022 End: 04-15-2022 ambulatory PORTER Giron Work Phone: [facility] Work Phone: Start: 04-11-2022 End: 04-11-2022 ambulatory FEEDER DRIVERAliya Giron Work Phone: [facility] Work Phone: Start: 04-11-2022 End: 04-11-2022 Patient encounter procedure PORTER Giron Work Phone: [facility] Start: 03-13-2022 End: 03-15-2022 Subsequent hospital visit by physician Brian [facility] Comment on above: Fall, initial encoun ter Start: 01-13-2022 End: 01-13-2022 Patient encounter procedure Chintan Mo KATHY [facility] Start: 11-11-2021 End: 11-13-2021 Subsequent hospital visit by physician Brian Additional [facility] Comment on above: Fall, initial encoun ter; Acute midline low back pain without sciatica Start: 06-25-2021 End: 06-26-2021 Evaluation and management of inpatient PHYSICIAN UNKNOWN Facility:[facility] Start: 03-28-2021 End: 03-30-2021 Subsequent hospital visit by physician Brian [facility] Comment on above: Dizziness; Mild alcohol use disorder, in controlled environment; Bilateral carotid artery stenosis; Short-term memory loss Start: 10-22-2020 End: 10-22-2020 Subsequent hospital visit by physician Candace Giron FEEDER DRIVER - SENIOR WEB DESIGNER Work Phone: [facility] Comment on above: [...] Corona Start: 06-06-2023 Plain chest X-ray PORTER Giron Work Phone: Start: 04-21-2022 Basic metabolic pane l calcium total Candace Medina Bree FEEDER DRIVER - SENIOR WEB DESIGNER Work Phone: Start: 04-21-2022 Lipid panel Candace Maciel ebs FEEDER DRIVER - SENIOR WEB DESIGNER Work Phone: Start: 04-21-2022 PATIENT FASTING? Candacerandal Giron FEEDER DRIVER - SENIOR WEB DESIGNER Work Phone: Start: 04-15-2022 Colonoscopy FEEDER DRIVER Candace Giron Work Phone: Start: 03-13-2022 Radex facial bones c omplete minimum 3 views Johnny Sudhir Driveraliya FEEDER DRIVER - SENIOR WEB DESIGNER Work Phone: Start: 11-11-2021 Radex spine lumbosac ral minimum 4 views Candace Giron FEEDER DRIVER - SENIOR WEB DESIGNER Work Phone: Start: 03-28-2021 Mri brain brain stem w/o contrast material Candace Giron FEEDER DRIVER - SENIOR WEB DESIGNER Work Phone: Start: 10-22-2020 PSA screening Candace valverde FEEDER DRIVER - SENIOR WEB DESIGNER Work Phone: Comment on above: The Nataliya ECLIA as say is used. Results obtained with different assay methods cannot be used interchangeably. Start: 10-22-2020 Basic metabolic pane l calcium total Candace Giron FEEDER DRIVER - SENIOR WEB DESIGNER Work Phone: Start: 10-22-2020 Lipid panel Candace cadena FEEDER DRIVER - SENIOR WEB DESIGNER Work Phone: Start: 10-22-2020 PATIENT FASTING? Candace Giron FEEDER DRIVER - SENIOR WEB DESIGNER Work Phone: Start: 06-08-2020 Procedure on artery Paolo juan GRACIA Comment on above: carotid artery Start: 08-25-2019 Duplex scan extracra nial art compl bi study Candace Giron Work Phone: Start: 08-25-2019 Assay of thyroid stimulating hormone tsh Candace Giron Work Phone: Start: 08-25-2019 Comprehensive metabo lic panel Candace Giron Work Phone: Start: 08-25-2019 Lipid panel Candace Maciel tammi Work Phone: Start: 08-25-2019 PATIENT FASTING? Candace Giron Work Phone: Start: 08-25-2019 End: 08-25-2019 PSA screening Candace Giron Work Phone: Comment on above: The Nataliya ECLIA as say is used. Results obtained with different assay methods cannot be used interchangeably. Start: 08-25-2019 VITAMIN B12 & FOLATE Magalie Khoury Work Phone: Start: 09-02-2018 Transurethral water vapor ablation of prostate Makayla Galea Start: 08-05-2018 Cystoscopy Makaylascott Hsu ea Colonoscopy Chintan GRACIA SARS Antigen (LFIA) PORTER Flora Giron Work Phone: Structure of bursa ( body structure) Chintan GRACIA Tonsillectomy Chintan GRACIA Plan of Treatment Date Care Activity Detail Author Start: 12-15-2023 DTaP/Tdap/Td vaccine (2 - Td or Tdap) DTaP/Tdap/Td vaccine (2 - Td or Tdap) [facility] Start: 12-15-2023 DTaP/Tdap/Td vaccine (2 - Td) DTaP/Tdap/Td vaccine (2 - Td) [facility] [place] Start: 04-27-2023 End: 04-27-2023 Patient encounter procedure 04/27/2023 Office Visit Family Medicine Candace Giron, FEEDER DRIVER - [place] [address] [facility] Start: 04-22-2023 Annual Wellness Visi t (AWV) Annual Wellness Visit (AWV) [facility] Start: 04-21-2023 Lipid panel Lipids [facility] Start: 11-11-2022 Depression Screen Depression Screen [facility] Start: 11-11-2022 Lipid panel Lipids [facility] Start: 10-20-2022 End: 10-20-2022 Patient encounter procedure 10/20/2022 Office Visit Family Medicine Candace Giron, FEEDER DRIVER - SENIOR WEB DESIGNER [address] [place] [address] [facility] Start: 04-29-2022 COVID-19 Vaccine (4 - Booster for Pfizer series) COVID-19 Vaccine (4 - Booster for Pfizer series) [facility] Start: 04-15-2022 Start: 01-06-2022 Influenza vaccination Flu vaccine (# 1) [facility] Start: 12-02-2021 End: 12-02-2021 Patient encounter procedure 12/02/2021 Office Visit Family Candace Artis, FEEDER DRIVER - SENIOR WEB DESIGNER [address] [place] [address] [facility] Start: 10-28-2021 End: 10-28-2021 Patient encounter procedure 10/28/2021 Office Visit Family Candace Artis, FEEDER DRIVER - SENIOR WEB DESIGNER [address] [place] [address] [phone] [facility] Start: 10-23-2021 Annual Wellness Visi t (AWV) Annual Wellness Visit (AWV) [facility] Start: 10-22-2021 Creatinine measurement Creatinine monitoring [facility] Work Phone: Start: 10-22-2021 Lipid panel Lipid screen [facility] Work Phone: Start: 10-22-2021 Potassium monitoring Potassium monit oring [facility] Work Phone: Start: 09-06-2021 Colon cancer screen colonoscopy Colon cancer screen colonoscopy [facility] [place] Start: 09-06-2021 Screening for malignant neoplasm of colon Colon cancer screen colonoscopy [facility] Phone: Start: 08-05-2021 COVID-19 Vaccine (3 - Booster for Pfizer series) COVID-19 Vaccine (3 - Booster for Pfizer series) MEGAN SANCHEZ BLANCHARD [facility] Start: 04-29-2021 End: 04-29-2021 Patient encounter procedure 04/29/2021 Office Visit Family Medicine Candace Giron, FEEDER DRIVER - SENIOR WEB DESIGNER [address] [place] [address] [phone] [facility] Start: 02-06-2021 Influenza vaccination [facility] [employer] Phone: Start: 08-24-2020 Creatinine monitoring Creatinine mon [place], [place] Start: 08-24-2020 Lipid screen Lipid screen [place], [place] Start: 08-24-2020 Potassium monitoring Potassium monit [place], [place] Start: 08-17-2020 COVID-19 Vaccine (2 - Pfizer 2-dose series) COVID-19 Vaccine (2 - Pfizer 2-dose series) [facility] [employer] Phone: Start: 09-05-2019 End: 09-05-2019 Office Visit 09/05/2019 Office Visit Family Medicine Candace Giron, FEEDER DRIVER - SENIOR WEB DESIGNER [address] [place] [address] [phone] [facility] Start: 08-25-2019 End: 08-25-2019 Appointment 08/25/2019 Appointment Vascular Lab [facility] Start: 04-25-2019 Creatinine monitoring Creatinine mon [place], [place] Start: 04-25-2019 Lipid screen Lipid screen [place], [place] Start: 04-25-2019 Potassium monitoring Potassium monit [place] Start: 04-14-2019 Pneumococcal 65+ years Vaccine (2 of 2 - PPSV23) Pneumococcal 65+ years Vaccine (2 of 2 - PPSV23) [place], [place] Start: 02-06-2019 Influenza vaccination Flu vaccine (# 1) [place] Start: 11-24-2018 Annual Wellness Visi t (AWV) Annual Wellness Visit (AWV) [place] Start: 01-01-2017 Pneumococcal 65+ years Vaccine (2 - PPSV23 or PCV20) Pneumococcal 65+ years Vaccine (2 - PPSV23 or PCV20) [facility] EKG 12 Lead EKG 12 Lead ECG Routine Dizziness Essential hypertension Pure hypercholesterolemia 08/22/2019 2:07 PM EDT [place] End: 08-22-2019 Holter Monitor 48 Hour Holter Monitor 48 Hour Cardiac Services Routine Dizziness 1 Occurrences starting 08/22/2019 until 08/22/2019 [place], [place] Comment on above: 1 Occurrences starti ng 08/22/2019 until 08/22/2019 Patient Education [facility] ED/OP COV ID-19 Discharge Instructions [facility] Work Phone: Patient referral [facility] Work Phone: Immunizations Immunization Date Immunization Notes Care Provider Anabel miller 04-07-2023 influenza virus vacc ine, unspecified formulation Humaira Ragsdale [facility] Comment on above: Result Comment: 2023: VIS DATE: 01/11/2021 04-21-2022 pneumococcal polysaccharide vaccine, 23 valent Candace Giron FEEDER DRIVER - [employer] Work Phone: [facility] Work Phone: Comment on above: Result Comment: 2022: VIS DATE: 04/06/2019 03-27-2022 influenza virus vacc ine, unspecified formulation Chintan KATHY [facility] 03-27-2022 Influenza, FLUZONE ( age 65 y+), High Dose, 0.7mL Candace Giron FEEDER DRIVER - SENIOR WEB DESIGNER Work Phone: [facility] 03-27-2022 SARS-CoV-2 (COVID-19 ) [id number] Chintan KATHY [facility] 12-27-2021 SARS-CoV-2 mRNA (fmvyqqduwdz-jila-njlfdq e) vaccine Chintan GRACIA [facility] 04-01-2021 influenza virus vacc ine, unspecified formulation Chintan GRACIA [facility] Comment on above: Result Comment: 2022: VIS DATE: 01/11/2021 04-01-2021 Influenza, Quadv, adjuvanted, 65 yrs +, IM, PF (Fluad) [facility] [employer] Work Phone: 03-05-2021 SARS-CoV-2 (COVID-19 ) mRNA BNT-162b2 vax Chintan GRACIA [facility] Comment on above: Result Comment: 2022: [id number] 07-27-2020 COVID-19, Pfizer, PF , 30mcg/0.3mL Candace Giron FEEDER DRIVER - SENIOR WEB DESIGNER Work Phone: [employer] Work Phone: 07-06-2020 SARS-CoV-2 (COVID-19 ) mRNA BNT-162h3 vax Chintan [employer] [facility] Comment on above: Result Comment: 2022: [id number] 03-26-2020 influenza virus vacc ine, unspecified formulation Chintan [employer] [facility] 04-12-2019 influenza virus vacc ine, unspecified formulation [employer] [facility] 09-08-2018 zoster vaccine recombinant Candace Bree [facility] [employer] 06-30-2018 zoster vaccine recombinant [facility] 04-20-2018 influenza virus vacc ine, unspecified formulation [employer] [facility] 04-20-2018 influenza, high dose seasonal, preservative-free Candace Giron [facility] 01-02-2016 pneumococcal conjuga te vaccine, 13 valent Candace Giron [place], [place] 05-10-2015 influenza virus vacc ine, unspecified formulation Chintan GRACIA [facility] 05-10-2015 influenza virus vacc ine, whole virus Candacerandal Giron [facility], [place] 04-14-2014 pneumococcal conjuga te vaccine, 7 valent Candacerandal Giron [facility] 04-14-2014 pneumococcal polysaccharide vaccine, 23 valent Candace [facility] 12-14-2013 tetanus toxoid, redu siva diphtheria toxoid, and acellular pertussis vaccine, adsorbed Candace [facility] 10-03-2013 zoster vaccine, live Candace [place] Payers Date Payer Category Payer Self-pay [id number] 2023 Unknown [id number] 2014 Medicare MEDICARE RAILROA D MEDICARE xxxxxxxxxxx 2014-Present [phone] [place] [address] [id number] 2014 Unknown [employer] [id number] 2014-Present [address] [address] [place] [address] [id number]. [id number] 2014 Unknown [employer] [id number] 2014-Present [address] [address] [place] [address] [id number]. [id number] 1959 Medicare [id number]. [id number] 1959 Unknown [id number] [id number].3. [id number] 1945 Unknown [id number] 2.16.840.1.971492.3.579.2.647 1945 Unknown [id number] 2.16.840.1.658928.3.579.2.593 1945 Unknown [id number] 2.16.840.1.258582.3.579.2.174 1945 Unknown [id number] 2.16.840.1.871781.3.579.2.174 1945 Unknown [id number] 2.16.840.1.218267.3.579.2.174 1945 Unknown [id number] 2.16.840.1.501508.3.579.2.174 1945 Unknown [id number] 2.16.840.1.312415.3.579.2.1286 1945 Unknown [id number] 2.16.840.1.132602.3.579.2.1286 1945 Unknown [id number] 2.16.840.1.319028.3.579.2.1286 1945 Unknown [id number] 2.16.840.1.854320.3.579.2.1286 1945 Unknown [id number] 2.16.840.1.660223.3.579.2.1286 1945 Unknown [id number] 2.16.840.1.774603.3.579.2.128 1945 Unknown [id number] 2.16.840.1.216847.3.579.2.727 1945 Unknown [id number] 2.16.840.1.299206.3.579.2.727 1945 Unknown [id number] 2.16.840.1.513989.3.579.2.727 1945 Unknown [id number] 2.16.840.1.480836.3.579.2.727 1945 Unknown [id number] 2.16.840.1.268478.3.579.2.727 Medicare Medicare Outpatient [id number] 7A [id number] Unknown Regular Insurance [id number] Unknown [id number] [id number] Social History Date Type Detail Facility Start: 08-22-2019 End: 01-27-2024 Tobacco smoking status NHIS Former smoker [place], [place] History of tobacco use Pipe Sm[place] Start: 08-22-2019 End: 04-21-2022 Alcohol intake Current drinker of alcohol (finding) [place] Start: 08-22-2019 End: 11-11-2021 History SDOH Food Worry 1 [place], [place] Start: 08-22-2019 End: 04-21-2022 History SDOH Transport Med 2 [place] Start: 11-11-2012 Alcohol Comment daily/wine [place], [place] Start: 1945 Sex Assigned At Not on file M [place] Start: 10-22-2020 End: 03-13-2022 Tobacco use and exposure Never used [facility] [employer] Start: 10-22-2020 End: 04-21-2022 Alcohol intake [facility] [employer] Work Phone: Start: 10-22-2020 End: 11-11-2021 History SDOH Financial 5 [employer] Work Phone: Tobacco smoking status Never [facility] Sex Assigned At Male [facility] History of tobacco use Current smoker [employer] Work Phone: History of tobacco use Cigarette Smoker [employer] Work Phone: Start: 03-13-2020 End: 06-06-2023 Tobacco smoking status NHIS Never smoked tobacco (finding) Start: 1945 Sex Assigned At Male F [facility] Start: 04-21-2022 History SDOH Physica l Activity DPW 6 [employer] Work Phone: Start: 04-21-2022 History SDOH Physica l Activity MPS 4 [employer] Work Phone: Medical Equipment Procedure Code Equipment Code Equipment Origin al Text Equipment Identifier Dates Repair, hernia, inguinal, with mesh [id number] FDA Start: 03-13-2020 Repair, hernia, inguinal, with mesh [id number] FDA Start: 03-13-2020 Repair, hernia, inguinal, with mesh [id number] FDA Start: 03-13-2020 Goals Date Patient Goal Desired Activity /State Functional Status Date Assessment Result Facility 01-27-2024 Functional Status N/A [facility] 01-11-2024 Functional Status N/A [facility] 12-31-2023 Functional Status N/A [facility] 01-07-2023 Functional Status N/A [facility] 01-13-2022 Functional Status No [facility] Clinical Notes 06-30-2021 to 01-27-2024 Note Date & Type Note Facility 01-27-2024 Hospital Discharge instructions Patient Education 01/27/2024 10:50:07 Epididymitis Epididymitis Epididymitis is inflammation or swelling of the epididymis. This is caused by an infection. The epididymis is a cord-like structure that is located along the top and back part of the testicle. It collects and stores sperm from the testicle. This condition can also cause pain and swelling of the testicle and scrotum. Symptoms usually start suddenly (acute epididymitis). Sometimes epididymitis starts gradually and lasts for a while (chronic epididymitis). Chronic epididymitis may be harder to treat. What are the causes? In men ages 20 40, this condition is usually caused by a bacterial infection or a sexually transmitted infection (STI), such as gonorrhea or chlamydia. In men 40 and older, this condition is usually caused by bacteria from a urinary blockage or from abnormalities in the urinary system. These can result from: Having a tube placed into the bladder (urinary catheter). Having an enlarged or inflamed prostate gland. Having recently had urinary tract surgery. Having a problem with a backward flow of urine (retrograde). In men who have a condition that weakens the body's defense system (immune system), such as human immunodeficiency virus (HIV), this condition can be caused by: Other bacteria, including tuberculosis and syphilis. Viruses. Fungi. Sometimes this condition occurs without infection. This may happen because of trauma or repetitive activities such as sports. What increases the risk? You are more likely to develop this condition if you have: Unprotected sex with more than one partner. Anal sex. Had recent surgery. A urinary catheter. Urinary problems. A suppressed immune system. What are the signs or symptoms? This condition usually begins suddenly with chills, fever, and pain behind the scrotum and in the testicle. Other symptoms include: Swelling of the scrotum, testicle, or both. Pain when ejaculating or urinating. Pain in the back or abdomen. Nausea. Itching and discharge from the penis. A frequent need to pass urine. Redness, increased warmth, and tenderness of the scrotum. How is this diagnosed? Your health care provider can diagnose this condition based on your symptoms and medical history. Your health care provider will also do a physical exam to check your scrotum and testicle for swelling, pain, and redness. You may also have other tests, including: Testing of discharge from the penis. Testing your urine for infections, such as STIs. Ultrasound to check for blood flow and inflammation. Your health care provider may test you for other STIs, including HIV. How is this treated? Treatment for this condition depends on the cause. If your condition is caused by a bacterial infection, oral antibiotic medicine may be prescribed. If the bacterial infection has spread to your blood, you may need to receive IV antibiotics. For both bacterial and nonbacterial epididymitis, you may be treated with: Rest. Elevation of the scrotum. Pain medicines. Anti-inflammatory medicines. Surgery may be needed if: You have pus buildup in the scrotum (abscess). You have epididymitis that has not responded to other treatments. Follow these instructions at home: Medicines Take bmpm-tpt-rstrlfw and prescription medicines only as told by your health care provider. If you were prescribed an antibiotic medicine, take it as told by your health care provider. Do not stop taking the antibiotic even if your condition improves. Sexual activity If your epididymitis was caused by an STI, avoid sexual activity until your treatment is complete. Inform your sexual partner or partners if you test positive for an STI. They may need to be treated. Do not engage in sexual activity with your partner or partners until their treatment is completed. Managing pain and swelling If directed, raise (elevate) your scrotum and apply ice. To do this: ?Put ice in a plastic bag. ?Place a small towel or pillow between your legs. ?Rest your scrotum on the pillow or towel. ?Place another towel between your skin and the plastic bag. ?Leave the ice on for 20 minutes, 2 3 times a day. ?Remove the ice if your skin turns bright red. This is very important. If you cannot feel pain, heat, or cold, you have a greater risk of damage to the area. Keep your scrotum elevated and supported while resting. Ask your health care provider if you should wear a scrotal support, such as a jockstrap. Wear it as told by your health care provider. Try taking a sitz bath to help with discomfort. This is a warm water bath that is taken while you are sitting down. The water should come up to your hips and should cover your buttocks. Do this 3 4 times per day or as told by your health care provider. General instructions Drink enough fluid to keep your urine pale yellow. Return to your normal activities as told by your health care provider. Ask your health care provider what activities are safe for you. Keep all follow-up visits. This is important. Contact a health care provider if: You have a fever. Your pain medicine is not helping. Your pain is getting worse. Your symptoms do not improve within 3 days. Summary Epididymitis is inflammation or swelling of the epididymis. This is caused by an infection. This condition can also cause pain and swelling of the testicle and scrotum. Treatment for this condition depends on the cause. If your condition is caused by a bacterial infection, oral antibiotic medicine may be prescribed. Inform your sexual partner or partners if you test positive for an STI. They may need to be treated. Do not engage in sexual activity with your partner or partners until their treatment is completed. Contact a health care provider if your symptoms do not improve within 3 days. This information is not intended to replace advice given to you by your health care provider. Make sure you discuss any questions you have with your health care provider. Document Revised: 01/01/2022 Document Reviewed: 01/01/2022 [employer] Patient Education 2022 [employer]. Follow Up Care 01/07/2023 11:09:00 With:KATHY HILL, Chintan oM, URL Address: [address] [place], [place] [id number]- When: Unknown [facility] 01-27-2024 Note Patient Education Urology Epididymitis Epididymitis is inflammation or swelling of the epididymis. This is caused by an infection. The epididymis is a cord-like structure that is located along the top and back part of the testicle. It collects and stores sperm from the testicle. This condition can also cause pain and swelling of the testicle and scrotum. Symptoms usually start suddenly (acute epididymitis). Sometimes epididymitis starts gradually and lasts for a while (chronic epididymitis). Chronic epididymitis may be harder to treat. What are the causes? In men ages 20?40, this condition is usually caused by a bacterial infection or a sexually transmitted infection (STI), such as gonorrhea or chlamydia. In men 40 and older, this condition is usually caused by bacteria from a urinary blockage or from abnormalities in the urinary system. These can result from: ? Having a tube placed into the bladder (urinary catheter). ? Having an enlarged or inflamed prostate gland. ? Having recently had urinary tract surgery. ? Having a problem with a backward flow of urine (retrograde). In men who have a condition that weakens the body's defense system (immune system), such as human immunodeficiency virus (HIV), this condition can be caused by: ? Other bacteria, including tuberculosis and syphilis. ? Viruses. ? Fungi. Sometimes this condition occurs without infection. This may happen because of trauma or repetitive activities such as sports. What increases the risk? You are more likely to develop this condition if you have: ? Unprotected sex with more than one partner. ? Anal sex. ? Had recent surgery. ? A urinary catheter. ? Urinary problems. ? A suppressed immune system. What are the signs or symptoms? This condition usually begins suddenly with chills, fever, and pain behind the scrotum and in the testicle. Other symptoms include: ? Swelling of the scrotum, testicle, or both. ? Pain when ejaculating or urinating. ? Pain in the back or abdomen. ? Nausea. ? Itching and discharge from the penis. ? A frequent need to pass urine. ? Redness, increased warmth, and tenderness of the scrotum. How is this diagnosed? Your health care provider can diagnose this condition based on your symptoms and medical history. Your health care provider will also do a physical exam to check your scrotum and testicle for swelling, pain, and redness. You may also have other tests, including: ? Testing of discharge from the penis. ? Testing your urine for infections, such as STIs. ? Ultrasound to check for blood flow and inflammation. Your health care provider may test you for other STIs, including HIV. How is this treated? Treatment for this condition depends on the cause. If your condition is caused by a bacterial infection, oral antibiotic medicine may be prescribed. If the bacterial infection has spread to your blood, you may need to receive IV antibiotics. For both bacterial and nonbacterial epididymitis, you may be treated with: ? Rest. ? Elevation of the scrotum. ? Pain medicines. ? Anti-inflammatory medicines. Surgery may be needed if: ? You have pus buildup in the scrotum (abscess). ? You have epididymitis that has not responded to other treatments. Follow these instructions at home: Medicines ? Take gplk-zmk-atxdpsu and prescription medicines only as told by your health care provider. ? If you were prescribed an antibiotic medicine, take it as told by your health care provider. Do not stop taking the antibiotic even if your condition improves. Sexual activity ? If your epididymitis was caused by an STI, avoid sexual activity until your treatment is complete. ? Inform your sexual partner or partners if you test positive for an STI. They may need to be treated. Do not engage in sexual activity with your partner or partners until their treatment is completed. Managing pain and swelling ? If directed, raise (elevate) your scrotum and apply ice. To do this: ? Put ice in a plastic bag. ? Place a small towel or pillow between your legs. ? Rest your scrotum on the pillow or towel. ? Place another towel between your skin and the plastic bag. ? Leave the ice on for 20 minutes, 2?3 times a day. ? Remove the ice if your skin turns bright red. This is very important. If you cannot feel pain, heat, or cold, you have a greater risk of damage to the area. ? Keep your scrotum elevated and supported while resting. Ask your health care provider if you should wear a scrotal support, such as a jockstrap. Wear it as told by your health care provider. ? Try taking a sitz bath to help with discomfort. This is a warm water bath that is taken while you are sitting down. The water should come up to your hips and should cover your buttocks. Do this 3?4 times per day or as told by your health care provider. General instructions ? Drink enough fluid to keep (more content not included)... [facility] 01-11-2024 Hospital Discharge instructions Patient Education 01/11/2024 [...] that it is safe. General instructions Take moku-vdv-ecxuwwi and prescription medicines only as told by [...] provider. Document Revised: 01/22/2021 Document Reviewed: 01/22/2021 [employer] Patient Education 2022 [employer]. 01/11/2024 11:38:16 Benign Prostatic Hyperplasia Benign Prostatic [...] urethra. Follow these instructions at home: Take ofzm-mac-midwzsp and prescription medicines only as told by [...] provider. Document Revised: 12/11/2021 Document Reviewed: 12/11/2021 [employer] Patient Education 2022 [employer]. Follow Up Care 01/11/2024 08:12:05 With:Jn BUENROSTRO, DHAVAL, Humaira Ayon, ELIEZER, URL Address: When: Unknown Comments:Pt to keep follow up on 01/27/24 w/Dr. Gracia [facility] Fabian 01-11-2024 Note Patient Education Urology Scrotal Swelling [...] it is safe. General instructions ? Take noxn-xlh-gmwjzfk and prescription medicines only as told by [...] provider. Document Revised: 01/22/2021 Document Reviewed: 01/22/2021 [employer] Patient Education ? 2022 [employer]. Benign Prostatic Hyperplasia Benign prostatic hyperplasia (BPH) [...] urine flow wi (more content not included)... [facility] 12-31-2023 Hospital Discharge instructions Patient Education [...] urethra. Follow these instructions at home: Take pjqq-kzx-kqogtyf and prescription medicines only as told by [...] provider. Document Revised: 12/11/2021 Document Reviewed: 12/11/2021 [employer] Patient Education 2022 [employer]. Follow Up Care 12/31/2023 08:38:06 With:KATHY HILL, Chintan Mo, URL Address: [address] [place] [address] [place], [place] [id number]- When: Unknown Comments:Appointment has already been scheduled [facility] Jonny 12-31-2023 Note Patient Education Urology Benign Prostatic [...] Follow these instructions at home: ? Take ynka-kns-yngbpcn and prescription medicines only as told by [...] develop side effec (more content not included)... [facility] 08-04-2023 Note Patient here for 1 [...] systems reviewed and are negative. [facility] 08-04-2023 Note Cardiovascular Medic [facility] SUBJECTIVE Chief Complaint Patient presents with Hypertension Hyperlipidemia Faith Penn is a 78 y.o. male here for [...] Guideline (more content not included)... [facility] 01-07-2023 Hospital Discharge instructions Patient [...] urethra. Follow these instructions at home: Take crjn-fvt-dftafjw and prescription medicines only as told by [...] provider. Document Revised: 12/11/2021 Document Reviewed: 12/11/2021 [employer] Patient Education 2022 [employer]. Follow Up Care 01/13/2022 10:26:06 With:KATHY HILL, Chintan Mo, URL Address: [address] [place], [place] [id number]- When: Unknown [facility] 08-25-2022 Hospital Discharge instructions Patient Education 08/25/2022 [...] urethra. Follow these instructions at home: Take anla-tug-spdlydh and prescription medicines only as told by [...] 05/25/2006 Document Revised: 04/19/2019 Document Reviewed: 06/29/2017 [employer] Patient Education 2020 [employer]. Follow Up Care 08/18/2022 10:34:03 With:KATHY HILL, Chintan Mo, URL Address: [address] [place], [place] [id number]- When: Unknown [facility] 04-15-2022 Procedure note [facility] 01-13-2022 Hospital Discharge instructions Patient Education 01/13/2022 [...] Follow these instructions at home: Medicines Take pjbv-hjt-chlwipg and prescription medicines only as told by [...] 05/22/2001 Document Revised: 05/07/2018 Document Reviewed: 06/10/2017 [employer] Patient Education 2020 [employer] Follow Up Care 01/14/2021 08:36:30 With:KATHY HILL, Chintan Mo, URL Address: [address] [address]- When:Within 1 Year(s) [facility] 06-30-2021 Note MR#: [id number] I [facility] Pt. Name: Faith Penn Admitted: 06/25/2021 Discharged: 06/26/2021 Date of : [...] me. Date Dict: 06/30/2021/12:45 P/Luna Salinas M.S., [facility] Date Trans: 06/30/2021 08:59 P/grabiel [id number] [facility] Evaluation + Plan note Future Appointments Appointment Date:01/14/2023 08:45:00 AM Scheduled Provider:Chintan GRACIA MD Location:[facility] Appointment Type:URO Office Visit [facility] Evaluation + Plan note Future Appointments Appointment Date:01/07/2023 10:15:00 AM Scheduled Provider:Chintan GRACIA MD Location:[facility] Appointment Type:URO Office Visit [facility] Evaluation + Plan note Future Appointments Appointment Date:01/27/2024 10:30:00 AM Scheduled Provider:Chintan GRACIA MD Location:[facility] Appointment Type:URO Office Visit [facility] Evaluation + Plan note Future Appointments Appointment Date:01/06/2024 08:30:00 AM Scheduled Provider: Location:[facility] Appointment Type:URO Nurse Visit Appointment Date:01/27/2024 10:30:00 AM Scheduled Provider:Chintan GRACIA MD Location:[facility] Appointment Type:URO Office Visit [facility] Evaluation note Diagnosis Prostate cancer screening Special screening for malignant neoplasm of prostate Mixed hyperlipidemia Essential hypertension Unspecified essential hypertension Thyroid disorder screening Screening for thyroid disorder documented in this encounter [employer] Phone: evaluation note* Diagnosis Dizziness Dizziness and giddiness Mild alcohol use disorder, in controlled environment Bilateral carotid artery stenosis Occlusion and stenosis of multiple and bilateral precerebral arteries without mention of cerebral infarction Short-term memory loss Memory loss documented in this encounter [employer] Phone: [email or web address] note* Diagnosis Fall, initial encounter Acute midline low back pain without sciatica documented in this encounter [employer] Phone: [email or web address] note* Diagnosis Fall, initial encounter documented in this encounter [employer] Phone: [email or web address] noteNo assessment information available [facility] Work Phone: Evaluation note* Diagnosis Onset Date Resolution Status Positive colorectal cancer s creening using Cologuard test acute [facility] Work Phone: Evaluation note* Diagnosis Mixed hyperlipidemia Bilateral carotid artery stenosis Occlusion and stenosis of multiple and bilateral precerebral arteries without mention of cerebral infarction Essential hypertension Unspecified essential hypertension History of alcoholism (HCC) Personal history of alcoholism Primary hypertension Unspecified essential hypertension documented in this encounter [employer] Phone: Hospital course Narrative No data available for this section [facility] Hospital Discharge instructions Additional Instructions DISCHARGE INSTRUCTIONS [...] if you have any problems. -Office number [phone] Work Phone: Progress note No data available for this section [facility] Reason for Referral Status Reason Specialty Diagnoses / Procedures Re ferred By Contact Referred To Contact Open Cardiology Diagnoses Dizziness Essential hypertension Pure hypercholesterolemia Procedures EKG 12 Lead Candace Giron APRN - [place] [address] Status Reason Specialty Diagnoses / Procedures Referre d By Contact Referred To Contact Open EKG Diagnoses Dizziness Procedures Holter Monitor 48 Hour HC HOLTER MONITOR Candace Giron APRN - SENIOR WEB DESIGNER [place] [phone] [facility] [address] [place] [address] Status Reason Specialty Diagnoses / Procedures Referre d By Contact Referred To Contact Open Diagnoses Dizziness Essential hypertension Procedures VL DUP CAROTID BILATERAL HC EXTRACRANIAL BILAT STUDY Candace Giron APRN - SENIOR WEB DESIGNER [place] [phone] Status Reason Specialty Diagnoses / Procedures Referre d By Contact Referred To Contact Closed Radiology Diagnoses Dizziness Mild alcohol use disorder, in controlled environment Bilateral carotid artery stenosis Short-term memory loss Procedures MRI BRAIN WO CONTRAST Candace Giron, FEEDER DRIVER - SENIOR WEB DESIGNER [address] [place] [phone] Assessments Diagnosis Dizziness Dizziness and giddiness Essential [...] FoundDocuments on File Type Date Recorded Patient Marine Extension Agent Expl anation Advance Directives and Living Will Power of Rail Technician Documents on File Type Date Recorded Patient Marine Extension Agent Expl anation Advance Directives and Living Will Power of Rail Technician Documents on File Type Date Recorded Patient Marine Extension Agent Expl anation ACP-Advance Directive ACP-Power of Rail Technician Healthcare Agents on File Name Relationship Healthcare Agent Relationshi p Communication Ashleigh Penn Spouse Primary Decision Maker Documents on File Type Date Recorded Patient Marine Extension Agent Expl anation ACP-Advance Directive ACP-Power of Rail Technician Healthcare Agents on File Name Relationship [...] Documents on File Type Date Recorded Patient Marine Extension Agent Expl anation ACP-Do Not Resuscitate 04/21/2022 9:41 AM 04/21/22 DNR [facility] Healthcare Agents on File Name Relationship Healthcare Agent Relationshi p Communication Ashleigh Penn Spouse Primary Decision Maker History of Present Illness * Becca Abdullahi, [facility] - 08/22/2019 2:00 PM EDT The patient [...] Monitor 48 Hour HC HOLTER MONITOR Candace Grion, FEEDER DRIVER - SENIOR WEB DESIGNER [address] [place] [address] [facility] Ekg [address] [place] [address] Status Reason Specialty Diagnoses / Procedures Referre d By Contact Referred To Contact Open Diagnoses Dizziness Essential hypertension Procedures VL DUP CAROTID BILATERAL HC EXTRACRANIAL BILAT STUDY Candace Giron, FEEDER DRIVER - SENIOR WEB DESIGNER [address] [place] [phone] Status Reason Specialty Diagnoses / Procedures Referre d By Contact Referred To Contact Closed Radiology Diagnoses Dizziness Mild alcohol use disorder, in controlled environment Bilateral carotid artery stenosis Short-term memory loss Procedures MRI BRAIN WO CONTRAST Candace Giron, FEEDER DRIVER - SENIOR WEB DESIGNER [address] [place] [phone] (unrecognized sect ion and content) No Status Records FoundNo Status Records FoundNo Status Records FoundNo Status Records FoundNo Status Records FoundNo Status Records FoundNo Status Records FoundNo Status Records FoundNo Status Records Found INFORMATION SOURCE (unrecogn ized section and content) DATE CREATED AUTHOR 07/15/2021 [facility] dical Specialist DATE CREATED AUTHOR 'S ORGANIZ ATION 07/24/2021 [facility] DATE CREATED AUTHOR AUTHOR'S ORGANIZ ATION 08/14/2022 [facility] DATE CREATED AUTHOR AUTHOR'S ORGANIZ ATION 08/08/2023 [facility] DATE CREATED AUTHOR AUTHOR'S ORGANIZ ATION 11/17/2023 [facility] DATE CREATED AUTHOR AUTHOR'S ORGANIZ ATION 12/06/2023 [facility] DATE CREATED AUTHOR AUTHOR'S ORGANIZ ATION 12/31/2023 [facility] DATE CREATED AUTHOR AUTHOR'S ORGANIZ ATION [facility]/2024 [facility] DATE CREATED AUTHOR AUTHOR'S ORGANIZ ATION 01/29/2024 [facility] Care Teams (unrecognized sec tion and content) Team Status: Active Member Role Status Dates Candace Giron APRN FLOATING DERRICK OPERATOR-C Primary Care Provider Active Team Status: Inactive Member Role Status Dates Candace Giron APRN FLOATING DERRICK OPERATOR-C Primary Care Provider Active Leonides Velasquez DO Emergency Provider Active Senior Electrical Engineer Relationship Specialty Start Date End Date Candace Giron FEEDER DRIVER - [place] [address] PCP - General 01/09/16 Senior Electrical Engineer Relationship Specialty Start Date End Date Candace Giron APRN - SENIOR WEB DESIGNER [address] [place] [address] PCP - General 01/09/16 Senior Electrical Engineer Relationship Specialty Start Date End Date Candace Giron APRN - [place] [address] PCP - General 01/09/16 Team Status: Inactive Member Role Status Dates Candace Giron APRN FLOATING DERRICK OPERATOR-C Primary Care Provider Active Christiano Ravi MD Attending Provider Active Senior Electrical Engineer Relationship Specialty Start Date End Date Candace Giron FEEDER DRIVER - [place] [address] PCP - General 01/09/16 Goals (unrecognized section [...] BE BASED ON THE PRIMARY CLINICAL RECORDS. [facility] [employer] [facility]. provides no warranty or guarantee of the accuracy or completeness of information in this document.
[2024-03-08 10:14] LABS: Basophils Percent Auto 0.4 % (0.2-2.0); Eosinophils Absolute Auto 0.1 10^3/uL (0.0-0.7); Eosinophils Percent Auto 1.6 % (0.9-7.0); Hematocrit 41.7 % (42.0-54.0); Hemoglobin 13.6 g/dL (14.0-18.0); Immature Granulocytes Abs Auto 0.01 10^3/uL (0.00-0.03); Immature Granulocytes Pct Auto 0.2 % (0.0-0.5); Lymphocytes Absolute Auto 1.7 10^3/uL (1.2-3.8); Lymphocytes Percent Auto 33.7 % (20.5-60.0); Mean Corpuscular HGB Conc 32.6 g/dL (29.9-35.2); Mean Platelet Volume 9.3 fL (9.5-13.5); Monocytes Absolute Auto 0.5 10^3/uL (0.3-0.8); Monocytes Percent Auto 10.5 % (1.7-12.0); Neutrophils Absolute Auto 2.7 10^3/uL (1.4-6.5); Neutrophils Percent Auto 53.6 % (43.0-75.0); Platelet Count 213 10^3/uL (150-450); Red Blood Count 4.39 10^6/uL (4.70-6.10); Red Cell Distribution Width 13.6 % (11.0-15.0); White Blood Count 5.1 10^3/uL (4.0-11.0)
[2024-03-08 10:40] LABS: Thyroid Stimulating Hormone 1.671 uIU/mL (0.358-3.740)
[2024-03-08 10:51] LABS: Free T4 0.93 ng/dL (0.76-1.46)
== END 2024-03-08 09:41 | disposition home or self-care (01) ==
LOC: LAB 09:43
PROVIDERS: PCP Nurse Practitioner Primary Care; Visit Provider Nurse Practitioner Primary Care
DX: E03.9 Hypothyroidism, unspecified (principal); D50.8 Other iron deficiency anemias
CPT/HCPCS: 36415; 84439; 84443; 85025

== ENCOUNTER 2025-01-24 09:01 | Outpatient (OUT) | payer MEDICARE, OTHER, SELFPAY ==
--- OUTSIDE RECORDS SUMMARY | 2010-06-27 09:48 | XMS_ITS | Encounter Summary ---
Author Organization Sylvain Restrepo [facility] Address [address], [address] [place] [address] Care Team Providers Care Cofounder Name Role Phone Unavailable Primary Care Provider Unavailabl e Encounter Details Date Type Department Care Team (Late st Contact Info) Description 06/27/2010 8:48 AM [facility] Encounter [facility] Department [address] [place] [address] Sam Kevin MD [address] [place] [address] Social History Tobacco Use Types Packs/Day Years Used Date Smoking Tobacco: Former Cigarettes Pipe Passive Smoke Exposure: Past Smokeless Tobacco: Never Alcohol Use Standard Drinks/Week Comments Not Currently 4 (1 standard drink = 0.6 oz pur e alcohol) daily/wine [facility] Utilities Answer Date Recorded In the past 12 months has [employer], gas, oil, or water [employer] threatened to shut off services in your [...] place to sleep or slept in a custodial (including now)? No 11/16/2023 Housing Stability Vital Sign Answer Jayce e Recorded In the last 12 months, was t here a time when you were not able to pay the mortgage or rent on time? No 08/15/2024 In the past 12 months, how m any times have you moved where you were living? 0 08/15/2024 At any time in the past 12 m [facility], were you homeless or living in a custodial (including now)? 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
--- OUTSIDE RECORDS SUMMARY | 2025-01-24 09:04 | XMS_ITS | Encounter Summary ---
Author Organization [facility] Address [address], [address] [place] [address] Care Team Providers Care Expressive Art Therapist Name Role Phone Gini Burleson APRN - SCALLOP DREDGER Primary Care Provider Encounter Details Date Type Department Care Team (Late st Contact Info) Description 11/16/2023 Orders Only [facility] [place] [address] [place], [place] [phone] Provider, MD Paras Social History Tobacco Use Types Packs/Day Years Used Date Smoking Tobacco: Former Cigarettes Pipe Passive Smoke Exposure: Past Smokeless Tobacco: Never Alcohol Use Standard Drinks/Week Comments Yes 4 (1 standard drink = 0.6 oz pur e alcohol) daily/wine AUDIT-C Answer Date Recorded Q1: How often do you have a drink containing alcohol? Never 04/27/2023 Q2: How many drinks containi ng alcohol do you have on a typical day when you are drinking? Patient does not drink Q3: How often do you have si x or more drinks on one occasion? Never 04/27/2023 Overall Financial Resource Strain (CARDIA) Answe r Date Recorded How hard is it for you to pa y for the very basics like food, housing, medical care, and heating? Not hard at all 11/16/2023 PHQ-2 Answer Date Recorded PHQ-9 Total Score 0 10/12/2023 Exercise Vital Sign Answer Date Recorde d On average, how many days pe r week do you engage in moderate to strenuous exercise (like a brisk walk)? 7 days 04/27/2023 On average, how many minutes do you engage in exercise at this level? 20 min 04/27/2023 Hunger Vital Sign Answer Date Recorded Within the past 12 months, y ou worried that your food would run out before you got the money to buy more. Never true 11/16/19 24 Within the past 12 months, t he food you bought just didn't last and you didn't have money to get more. Never true 11/16/2023 PRAPARE - Transportation Answer Date Re corded Lack of Transportation (Medical) Not on file 11/16/2023 In the past 12 months, has l ack of transportation kept you from meetings, work, or from getting things needed for daily living? No 11/16/2023 Housing Stability Vital Sign Answer Jayce e Recorded Unable to Pay for Housing in the Last Year Not o n file 11/16/2023 Number of Places Lived in the Last Year Not on f ile 11/16/2023 In the last 12 months, was t here a time when you did not have a steady place to sleep or slept in a residential (including now)? No 11/16/2023 Food Insecurity Answer Date Recorded Within the past 12 months, y ou worried that your food would run out before you got the money to buy more. 1 11/16/2023 Within the past 12 months, t he food you bought just didn't last and you didn't have money to get more. 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 Not on file Not on file Not on file documented as of this encounter Plan of Treatment Not on file documented as of this encounter Procedures Procedure Name Priority Date/Time Associated Diagnosis Comments MRI BRAIN WO CONTRAST Routine 10/31/2023 3:48 PM EDT CTA HEAD W WO CONTRAST Routine 10/30/2023 3:58 PM EDT EKG 12-LEAD Routine 10/30/2023 3:56 PM EDT XR CHEST 1 VW Routine 10/30/2023 3:[address] HEAD WO CONTRAST Routine 10/30/2023 3:49 PM EDT documented in this encounter Results * MRI Brain Wo Contrast (10/31/2023 3:48 PM EDT) Anatomical Region Laterality Modality Other Historical Provider IMG MRI ORDERABLES Final Result * CTA HEAD W WO CONTRAST (10/30/2023 3:58 PM EDT) Anatomical Region Laterality Modality Vascular, Head Computed Tomogra phy [facility] Provider IMJessika CT ORDERABLES Final R esult * EKG 12 Lead (10/30/2023 3:56 PM EDT) [facility] Provider ECG ORDERABLES Final Res ult * XR Chest 1 VW (10/30/2023 3:53 PM EDT) Anatomical Region Laterality Modality Radiographic Abeba ging [facility] Provider IMG DIAGNOSTIC IMAGING OR DERABLES Final Result * CT HEAD WO CONTRAST (10/30/2023 3:49 PM EDT) Anatomical Region Laterality Modality Head Computed Tomogra phy Result [facility] Provider IMJessika CT ORDERABLES Final R esult documented in this encounter Visit Diagnoses Not on filedocumented in this encounter Additional Health Concerns Assessment Noted Time A fall risk assessment has been complete d for the patient 04/27/2023 8:30 AM EST documented as of this encounter Care Teams Expressive Art Therapist Relationship Specialty Start Date End Date Gini Burleson APRN - SCALLOP DREDGER [address] [place] [address] PCP - General 01/09/16 documented as of this encounter
--- OUTSIDE RECORDS SUMMARY | 2025-01-24 09:04 | XMS_ITS | Encounter Summary ---
Author Organization [facility] Address [id number] [address] [place] [address] Care Team Providers Care Lumber Checker Name Role Phone Gini Burleson APRN-HOT METAL MIXER OPERATOR HELPER Primary Care Provider [phone] Encounter Details Date Type Department Care Team (Late st Contact Info) Description 01/19/2025 Telephone [facility] [address] [place] [phone] Loretta Munroe, GEMINI Social History Tobacco Use Types Packs/Day Years Used Date Smoking Tobacco: Former Pipe Cigars Passive Smoke Exposure: Never Smokeless Tobacco: Never Alcohol Use Standard Drinks/Week Comments Not Currently 4 (1 standard drink = 0.6 oz pur e alcohol) [facility] Utilities Answer Date Recorded In the past 12 months has e [employer], gas, oil, or water company threatened to shut off services in your home? No 12/29/2023 AUDIT-C Answer Date Recorded Q1: How often do you have a drink containing alc ohol? 2-3 times a week 12/29/2023 Q2: How many drinks containi ng alcohol do you have on a typical day when you are drinking? 1 or 2 12/29/2023 Q3: How often do you have si x or more drinks on one occasion? Never 12/29/2023 PHQ-2 Answer Date Recorded Total Score 0 12/29/2023 PRAPARE - Transportation Answer Date Re corded In the past 12 months, has l ack of transportation kept you from medical appointments or from getting medications? No 12/07 In the past 12 months, has l ack of transportation kept you from meetings, work, or from getting things needed for daily living? No 12/29/2023 Housing Instability Answer Date Recorde d Are you worried or concerned that in the next two months you may not have stable housing that you own, rent or stay in as a part of a household? No 12/29/2023 Childcare Answer Date Recorded Childcare Unknown 01/24/2019 Employment Answer Date Recorded Employment Unknown 01/24/2019 Hunger Screening Answer Date Recorded Within the past 12 months we worried whether our food would run out before we got money to buy more. Never True 01/28/2024 Within the past 12 months th e food we bought just didn't last and we didn't have money to get more. Never True 01/28/2024 Purpose - Life Answer Date Recorded Purpose and direction in life Unknown Sex and Gender Information Value Date Recorded Sex Assigned at Not on file Legal Sex Male 8:11 AM EDT Gender Identity Not on file Sexual Orientation Not on file documented as of this encounter Miscellaneous Notes * Telephone Encounter - Loretta Munroe CMA - 01/19/2025 11:22 AM EDT Called patient and left message for him to get his carotid duplex done before his appt on 02/02 if not we need to cancel his appt and reschedule until that test is done. documented in this encounter Plan of Treatment Upcoming Encounters Date Type Department Care Team (Late st Contact Info) Description 02/02/2025 11:40 AM EDT Office Visit [facility] [place] [address] [place] [address] Marlys Garcia MD [address], [address] [address] documented as of this encounter Visit Diagnoses Not on filedocumented in this encounter Additional Health Concerns Assessment Noted Time PHQ-9 Depression Total Score: 0 12/29/19 24 5:17 PM EDT documented as of this encounter Care Teams Lumber Checker Relationship Specialty Start Date End Date Gini Burleson, SHINGLE WEAVER-HOT METAL MIXER OPERATOR HELPER [address] [place] [address] PCP - General Family Medicine 12/21/23 documented as of this encounter
--- OUTSIDE RECORDS SUMMARY | 2025-01-24 09:04 | XMS_ITS | Encounter Summary ---
Author Organization [facility] Address [id number] [address] [place] [address] Care Team Providers Care Java Web Application Developer Name Role Phone Gini Burleson APRN-CUTTER FINISHER Primary Care Provider [phone] Encounter Details Date Type Department Care Team (Late st Contact Info) Description 01/24/2025 Telephone [facility] [address] [place] [address] Marlys Garcia MD [address], [address] [place] [address] Social History Tobacco Use Types Packs/Day Years Used Date Smoking Tobacco: Former Pipe Cigars Passive Smoke Exposure: Never Smokeless Tobacco: Never Alcohol Use Standard Drinks/Week Comments Not Currently 4 (1 standard drink = 0.6 oz pur e alcohol) [facility] Utilities Answer Date Recorded In the past 12 months has [employer], gas, oil, or water [email or web address] threatened to shut off services in your [...] encounter Miscellaneous Notes * Telephone Encounter - Sabine Rubin - 01/24/2025 8:59 AM EDT Brand Sales Manager MIRNA returning the voicemail from the patients about the location of the upcoming appointment. Please assist in giving the address if the patient and his call back. Thank you. documented in this encounter Plan of Treatment Upcoming Encounters Date Type Department Care Team (Late st Contact Info) Description 02/02/2025 11:40 AM EDT Office Visit [facility] [place] [address] [place] [address] Marlys Garcia MD [address], [address] [address] documented as of this encounter Visit Diagnoses Not on filedocumented in this encounter Additional Health Concerns Assessment Noted Time PHQ-9 Depression Total Score: 0 12/29/19 24 5:17 PM EDT documented as of this encounter Care Teams Java Web Application Developer Relationship Specialty Start Date End Date Gini Burleson, MANAGER STATISTICAL PROGRAMMING-CUTTER FINISHER [address] [place] [phone] PCP - General Family Medicine 12/21/23 documented as of this encounter
--- OUTSIDE RECORDS SUMMARY | 2025-01-24 09:04 | XMS_ITS | Encounter Summary ---
Author Organization [facility] Address [address] [place] [address] Care Team Providers Care Heat Treating Bluer Name Role Phone Olimpia Middleton MD Primary Care Provider [phone] Gini Burleson SOFTBALL COACH Unavailable [phone] Encounter Details Date Type Department Care Team (Late st Contact Info) Description 01/20/2024 Clinisync Result Encounter [facility] Unsolicited Marlys Garcia MD [address], [address] [address] Social History Tobacco Use Types Packs/Day Years Used Date Smoking Tobacco: Never Smokeless Tobacco: Never Alcohol Use Standard Drinks/Week Comments Never 0 (1 standard drink = 0.6 oz pur e alcohol) Sex and Gender Information Value Date Recorded Sex Assigned at Not on file Legal Sex Male 7:07 PM EDT Gender Identity Not on file Sexual Orientation Not on file documented as of this encounter Plan of Treatment Upcoming Encounters Date Type Department Care Team (Late st Contact Info) Description 02/14/2025 2:15 PM EDT Office Visit [facility] [address] [place] [phone] Ted Putnam, DO [address] [place] [address] documented as of this encounter Procedures Procedure Name Priority Date/Time Associated Diagnosis Comments VASC US CAROTID ARTERY DUPLEX BILATERAL 01/20/2024 10:33 AM EDT documented in this encounter Results * Vascular US carotid artery duplex bilateral (01/20/2024 10:33 AM EDT) Anatomical Region Laterality Modality Neck Ultrasound 01/20/2024 10:3 3 AM EDT Narrative 01/20/2024 10:35 AM EDT [address] [address] Ultrasound Report Signed Patient: FAITH PENN MR#: [id number] : 1945 Acct:[id number] Age/Sex: 78 / M ADM Date: 01/19/24 Loc: US Attending Dr: Marlys Garcia M.D. Ordering Physician: Marlys Garcia M.D. Date of Service: 01/19/24 Procedure(s): US carotid duplex BI Accession Number(s): [id number] cc: Gini Burleson SOFTBALL COACH; Marlys Garcia M.D. [place] [id number] Patient Name: FAITH PENN MRN: [id number] date: 1945 Sex: M Assigned Patient Location: US Current Patient Location: US Accession/Order Number: [id number] Exam Date: 01/19/2024 15:12 Report Date: 01/20/2024 10:33 At the request of: MARLYS GARCIA Procedure: US carotid duplex BI DUPLEX ULTRASOUND EXAMINATION OF THE CAROTID ARTERIES. COMPARISON: 10/31/2023. HISTORY / INDICATIONS: History of endarterectomy. TECHNIQUE: Bilateral common carotid arteries, extracranial internal and external carotid arteries are evaluated with balderrama-scale imaging, color Doppler, and spectral analysis according to a standard protocol. ICA/CCA ratios are calculated with sales representative uniforms peak-systolic velocities and recorded. Vertebral arteries are evaluated in one segment to evaluate for patency and character of flow. Comparison with previous evaluation is performed when available. Unless otherwise specified, all velocities are measured in cm/sec. Carotid stenosis is reported according to validated velocity parameters, similar to NASCET criteria. FINDINGS: Right Carotid: Plaque was noted. Velocity measurements as follows: Internal Carotid Artery 75/13, 82/17, and 78/19. ICA/CCA ratio: 1.5. Left Carotid: Plaque was noted. Velocity measurements as follows: Internal Carotid Artery 108/21, 88/21, and 72/19. ICA/CCA ratio: 1.1. Antegrade flow was seen in both vertebral arteries. CONCLUSION: 1. Less than 50% stenosis of the right ICA. 2. Less than 50% stenosis of the left ICA. 3. Vertebral arteries are patent and demonstrate antegrade flow. Electronically authenticated by: Kike WHALEY Date: 01/20/2024 10:33 Dictated By: Kike Whaley M.D. Signed By: 01/20/24 1035 DD/ 1033 TD/TT: Drafter Directional Survey: Procedure Note Radiology, Radiologist, MD - 01/20/2024 [place] [address] Ultrasound Report Signed Patient: FAITH PENN CMR#: [id number] : 5Acct:[id number] Age/Sex: 78 / MADM Date: 01/19/24 Loc: US Attending Dr: Marlys Garcia M.D. Ordering Physician: Marlys Garcia M.D. Date of Service: 01/19/24 Procedure(s): US carotid duplex BI Accession Number(s): [id number] cc: Gini Burleson NP; Marlys Garcia M.D. [place] [address] Patient Name: FAITH PENN MRN: [id number] date: 1945 Sex: M Assigned Patient Location: US Current Patient Location: US Accession/Order Number: [id number] Exam Date: 01/19/2024 15:12 Report Date: 01/20/2024 10:33 At the request of: MARLYS GARCIA Procedure: US carotid duplex BI DUPLEX ULTRASOUND EXAMINATION OF THE CAROTID ARTERIES. COMPARISON: 10/31/2023. HISTORY / INDICATIONS: History of endarterectomy. TECHNIQUE: Bilateral common carotid arteries, extracranial internal and external carotid arteries are evaluated with balderrama-scale imaging, color Doppler, and spectral analysis according to a standard protocol. ICA/CCA ratios are calculated with sales representative uniforms peak-systolic velocities and recorded. Vertebral arteries are evaluated in one segment to evaluate for patency andcharacter of flow. Comparison with previous evaluation is performed when available.Unless otherwise specified, all velocities are measured in cm/sec. Carotidstenosis is reported according to validated velocity parameters, similar to NASCET criteria. FINDINGS: Right Carotid: Plaque was noted. Velocity measurements as follows:Internal Carotid Artery 75/13, 82/17, and 78/19. ICA/CCA ratio: 1.5. Left Carotid: Plaque was noted. Velocity measurements as follows: Internal Carotid Artery 108/21, 88/21, and 72/19. ICA/CCA ratio: 1.1. Antegrade flow was seen in both vertebral arteries. CONCLUSION: 1. Less than 50% stenosis of the right ICA. 2. Less than 50% stenosis of the left ICA. 3. Vertebral arteries are patent and demonstrate antegrade flow. Electronically authenticated by: Kike WHALEY Date: 01/20/2024 10:33 Dictated By: Kike Whaley M.D. Signed By:01/20/24 1035 DD/ 1033 TD/TT: Drafter Directional Survey: [facility] US PROCEDURES Final Resu lt documented in this encounter Visit Diagnoses Not on filedocumented in this encounter Care Teams Heat Treating Bluer Relationship Specialty Start Date End Date Olimpia Middleton MD [address] [place] [address] PCP - General Family Medicine 04/07/23 Gini Burleson NP [address] [place] [address] Referring Physician Family Medicine 04/07/23 documented as of this encounter
--- OUTSIDE RECORDS SUMMARY | 2025-01-24 09:04 | XMS_ITS | Clinical Summary ---
Author Organization [facility] tem Address [id number] [address] [place] [address] Care Team Providers Care Drafter Marine Name Role Phone Sarah BethGini Carol BUENROSTRO-INFORMATION SYSTEMS ARCHITECT Primary Care Provider [phone] Allergies Active Allergy Reactions Criticality Noted Date Comments Ibuprofen hypertension,Other (See Comments) 07/17/2020 Other Reaction(s): HYPERTENSION, increases BP Other reaction(s): HYPERTENSION Other reaction(s): HYPERTENSION Other Reaction(s): HYPERTENSION, increases BP Other reaction(s): HYPERTENSION Memantine Headache 08/04/2023 Nsaids (Non-Steroidal Anti-Inflammatory Drug) 02/28/2014 Elevates blood pressure Medications FLUoxetine (PROzac) 20 mg capsuleIndicatio ns:generalized anxiety disorder Take 1 capsule (20 mg total) by mouth in the morning. Indications: repeated episodes of anxiety. 4 Active aspirin 81 mg Take 1 tablet (81 mg total) by mouth nightly. Active simvastatin (ZOCOR) 40 mg tabletIndication s:hyperlipidemia Take 1 tablet (40 mg total) by mouth nightly Indications: excessive fat in the blood. 3 Active tamsulosin (FLOMAX) 0.4 mg capsuleIndicatio ns:benign prostatic hyperplasia with lower urinary tract sx Take 1 capsule (0.4 mg total) by mouth nightly Indications: enlarged prostate with urination problem. Takes at 7-8pm Active QUEtiapine (SEROquel) 50 mg tabletIndication s:generalized anxiety disorder Take by mouth 2 (two) times a day Indications: repeated episodes of anxiety. 100mg in AM and 50mg in PM 4 Active donepeziL (ARICEPT) 10 mg tablet Take 1 tablet (10 mg total) by mouth nightly. For memory 4 Active levothyroxine (SYNTHROID, LEVOTHROID) 50 MCG tabletIndication s:hypothyroidism Take 1 tablet (50 mcg total) by mouth in the morning. Indications: a condition with low thyroid hormone levels. 4 Active losartan (COZAAR) 25 mg tablet Take 1 tablet (25 mg total) by mouth nightly. For HTN 4 Active melatonin 10 mg tablet extended release Take 20 mg by mouth nightly. 4 Active Active Problems Problem Noted Date Diagnosed Date Postop check 01/14/2024 Assessment & Plan (01/14/2024 10:27 AM EDT): Carotid duplex US, continue ASA and statin. F/ U in 2- 3 weeks Stenosis of right carotid artery 12/29/2023 Impotence 11/12/2023 BPH with obstruction/lower urinary tract symptom s 11/12/2023 COVID-19 11/12/2023 Positive colorectal cancer screening using Colog uard test 11/12/2023 Cerebrovascular accident (CV A) due to stenosis of right carotid artery 11/12/2023 Transient ischemic attack in volving right internal carotid artery 11/12/2023 Assessment & Plan (11/12/2023 2:08 PM EDT): Cardiac risk stratification Continue aspirin and statin Will add Plavix to start now and for 1 month after carotid endarterectomy We will plan on right carotid endarterectomy for symptomatic Moderate right ICA stenosis Benign prostatic hyperplasia with urinary obstru ction 08/04/2023 Gross hematuria 08/04/2023 Nocturia 08/04/2023 Poor urinary stream 08/04/2023 Bilateral carotid artery occlusion 04/07/2023 Assessment & Plan (01/28/2024 10:04 AM EDT): He is status post bilateral carotid endarterectomies. Duplex ultrasound shows wide open carotids. Will continue antiplatelet therapy statin and surveillance imaging annually. Carotid stenosis, bilateral 04/07/2023 Major depressive disorder, recurrent, moderate 0 10/20/2022 Carotid artery stenosis 04/11/2021 HTN (hypertension) 11/11/2012 Hyperlipidemia 11/11/2012 Encounters Date Type Department Care Team Description 01/24/2025 Telephone [facility] [address] [place] [address] Marlys Garcia MD 01/19/2025 Telephone [facility] [address] [place] [phone] Loretta Munroe, GEMINI from Last 3 Months Immunizations Immunization Administration Dates Next Due Influenza High Dose Preservative Free IM 019,05/10/2015 Influenza Vaccine, Quadrivalent, Adjuvanted 03/10,04/01/2021 Influenza Whole 05/10/2015 Influenza, High-dose, Quadrivalent 03/27/2022 Influenza, Trivalent, Adjuvanted 04/20/2018 Influenza, Unspecified 03/26/2020 Pneumococcal Conjugate 04/14/2014 Pneumococcal Conjugate 13-Valent 01/02/2016 Pneumococcal Polysaccharide 04/21/2022, 4 RSV, bivalent, protein subun it RSVpreF, diluent reconstituted, 0.5 mL, PF 06/03/2023 Tdap 12/14/2013 Zoster Live 10/03/2013 Zoster Vaccine Recombinant 09/08/2018,06/30/2018 Family History Medical History Relation Name Comments Anesthesia problems Neg Hx Social History Tobacco Use Types Packs/Day Years Used Date Smoking Tobacco: Former Pipe Cigars Passive Smoke Exposure: Never Smokeless Tobacco: Never Tobacco Cessation:Counseling Given: Not Answered Alcohol Use Standard Drinks/Week Comments Not Currently 4 (1 standard drink = 0.6 oz pur e alcohol) [facility] [place] Answer Date Recorded In the past 12 months has [employer], gas, oil, or water [employer] threatened to shut off services in your [...] on file Sexual Orientation Not on file Last Filed Vital Signs Vital Sign Reading Time Taken Comments Blood Pressure 132/68 01/28/2024 9:09 AM EDT Pulse 57 01/28/2024 9:09 AM EDT Temperature 36.7 C (98.1 F) 12/30/2023 11:00 AM EDT Respiratory Rate 17 12/30/2023 2:30 PM EDT Oxygen Saturation 90% 01/28/2024 9:09 AM EDT Inhaled Oxygen Concentration - - Weight 81.6 kg (180 lb) 01/28/2024 9:09 AM EDT Height 185.4 cm (6' 1 ) 01/28/2024 9:09 AM EDT Body Mass Index 23.75 01/28/2024 9:09 AM EDT Plan of Treatment Upcoming Encounters Date Type Department Care Team (Late st Contact Info) Description 02/02/2025 11:40 AM EDT Office Visit [facility] [place] [address] Marlys Garcia MD [address] , [address] [address] Health Maintenance Due Date Last Done Comments Fall Risk Screening 2010 DTaP,Tdap and Td Vaccines (2 - Td or Tdap) 12/15/2023 12/14/2013 COVID-19 Vaccine (6 - 2023-2 5 season) 2024 03/27/2022, 12/27/2021, 03/05/2021, Additional history exists Depression Screening 12/28/2024 12/29/2023 Tobacco Screening 01/27/2025 01/28/2024 Influenza Vaccine 02/06/2025 04/07/2023, , 04/01/2021, Additional history exists Zoster (Shingles) Vaccine Completed 2018, 06/30/2018, 10/03/2013 Medical Devices Implanted Type Area Senior Category Manager Device Identifier Shelf Expiration Date Model / Serial / Lot Patch Cv 8x.8cm N-Pyrg Tpr End Photofix Decellularized Bvn Rpl [id number] - [id number] Implanted:Qty: 1 on 12/29/2023 by Marlys Garcia MD at [facility] Graft Right: Carotid CRYOLIFE 08/01/2025 [id number] / / [id number] Insurance [employer] Care Teams Drafter Marine Relationship Specialty Start Date End Date Gini Burleson APRN-INFORMATION SYSTEMS ARCHITECT [address] [place] [phone] PCP - General Family Medicine 12/21/23
--- OUTSIDE RECORDS SUMMARY | 2025-01-24 09:04 | XMS_ITS | Encounter Summary ---
Author Organization [facility] Address [address], [address] [place] [address] Care Team Providers Care Research And Evaluation Manager Name Role Phone Gini Burleson CLINICAL RN MANAGER - SERVICE GIRL Primary Care Provider Encounter Details Date Type Department Care Team (Late st Contact Info) Description 01/11/2025 Abstract [facility] Primary [facility] [place] [address] [place], [place] [phone] Gini Burleson, CLINICAL RN MANAGER - SERVICE GIRL [address] [place], [place] [phone] Social History Tobacco Use Types Packs/Day Years Used Date Smoking Tobacco: Former Cigarettes Pipe Passive Smoke Exposure: Past Smokeless Tobacco: Never Alcohol Use Standard Drinks/Week Comments Not Currently 4 (1 standard drink = 0.6 oz pur e alcohol) daily/wine [facility] Utilities Answer Date Recorded In the past 12 months has [employer], gas, oil, or water [employer] threatened to shut off services in your [...] place to sleep or slept in a detention (including now)? No 11/16/2023 Housing Stability Vital Sign Answer Jayce e Recorded In the last 12 months, was t here a time when you were not able to pay the mortgage or rent on time? No 08/15/2024 In the past 12 months, how m any times have you moved where you were living? 0 08/15/2024 At any time in the past 12 m [facility], were you homeless or living in a detention (including now)? 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
--- OUTSIDE RECORDS SUMMARY | 2025-01-24 09:04 | XMS_ITS | Encounter Summary ---
Author Organization [facility] tem Address [id number] [address] [place] [address] Care Team Providers Care Telecommunications Analyst Name Role Phone Gini Burleson Carol BUENROSTRO-AIRCRAFT ACCESSORIES MECHANIC Primary Care Provider [phone] Encounter Details Date Type Department Care Team (Late Contact Info) Description 11/12/2023 Orders Only [facility] [address] [place] [address] Josee Allen CMA Social History Tobacco Use Types Packs/Day Years Used Date Smoking Tobacco: Former Pipe Cigars Smokeless Tobacco: Never Alcohol Use Standard Drinks/Week Comments Yes 4 (1 standard drink = 0.6 oz pur e alcohol) Childcare Answer Date Recorded Childcare Unknown 01/24/2019 Employment Answer Date Recorded Employment Unknown 01/24/2019 Purpose - Life Answer Date Recorded Purpose [...] AM EDT Office Visit [facility] [place] [place] [address] Marlys Garcia MD [address], [address] [address] documented as of this encounter Visit Diagnoses Not on filedocumented in this encounter Care Teams Telecommunications Analyst Relationship Specialty Start Date End Date Gini Burleson, PRESS MACHINE OPERATOR-AIRCRAFT ACCESSORIES MECHANIC [address] [place] [address] PCP - General Family Medicine 12/21/23 documented as of this encounter
--- OUTSIDE RECORDS SUMMARY | 2025-01-24 09:04 | XMS_ITS | Encounter Summary ---
Author Organization [facility] tem Address [id number] [address] [place] [address] Care Team Providers Care Senior Electronics Design Engineer Name Role Phone Gini Burleson Carol BUENROSTRO-ENDING MACHINE OPERATOR Primary Care Provider [phone] Encounter Details Date Type Department Care Team (Late Contact Info) Description 11/12/2023 Orders Only [facility] [address] [place] [phone] Kelsy Riggs PA-C [address] [place], [place] [phone] Social History Tobacco Use Types Packs/Day Years [...] Encounters Date Type Department Care Team (Late Contact Info) Description 02/02/2025 11:40 AM EDT Office Visit [facility] [place] [place] [address] Marlys Garcia MD [address], [address] [address] documented as of this encounter Procedures Procedure Name Priority Date/Time Associated Diagnosis Comments MR BRAIN W WO CONT Routine 10/31/2023 10:30 AM EDT NEUROVASC CAROTID DUPLEX BILATERAL Routine 10/31/2023 10:27 AM EDT XR CHEST 1 VW Routine 10/30/2023 10:[address] CTA HEAD Routine 10/30/2023 10:[address] CTA HEAD Routine 10/30/2023 10:[address] CTA CAROTID Routine 10/30/2023 10:22 AM EDT documented in this encounter Results * MR brain with and without contrast (10/31/2023 10:30 AM EDT) Anatomical Region Laterality Modality Neuro, Head, Head and Neck, Neuro Covera N/A Magnetic Resonance us No Pcp No Pcp IMG MRI ORDERABLES Final Result * Neurovasc carotid duplex bilateral (10/31/2023 10:27 AM EDT) Anatomical Region Laterality Modality Vascular Bilateral Ultrasound us Kelsy Riggs PA-C CV VASCULAR ORDERABLES Lin l Result * X-ray chest 1 view (10/30/2023 10:38 AM EDT) Anatomical Region Laterality Modality Body, Chest N/A Computed Radiogr aphy Kelsy Riggs PA-C IMG DIAGNOSTIC IMAGING ORDE RABLES Final Result * CT angiogram head (10/30/2023 10:33 AM EDT) Anatomical Region Laterality Modality Head, Neuro, Vascular, Head and Neck, Neuro Bethany ra N/A Computed Tomography us Kelsy Riggs PA-C IMG CT ORDERABLES Final Res ult * CT angiogram head (10/30/2023 10:25 AM EDT) Anatomical Region Laterality Modality Head, Neuro, Vascular, Head and Neck, Neuro Bethany ra N/A Computed Tomography us Kelsy Riggs PA-C IMG CT ORDERABLES Final Res ult * CT angiogram carotid (10/30/2023 10:22 AM EDT) Anatomical Region Laterality Modality Neuro, Neck, Vascular, Neuro Covera N/A Computed Tomography us Kelsy Riggs PA-C IMG CT ORDERABLES Final Res ult documented in this encounter Visit Diagnoses Not on filedocumented in this encounter Care Teams Senior Electronics Design Engineer Relationship Specialty Start Date End Date Gini Burleson APRN-ENDING MACHINE OPERATOR [address] [place] [phone] PCP - General Family Medicine 12/21/23 documented as of this encounter
--- OUTSIDE RECORDS SUMMARY | 2025-01-24 09:04 | XMS_ITS | Encounter Summary ---
Author Organization [facility] Address [address], [address] [place] [address] Care Team Providers Care Reception Specialist Name Role Phone Gini Burleson DENIAL MANAGEMENT REPRESENTATIVE - SHRUB PLANTER Primary Care Provider Reason for Visit * Reason Comments Medication Refill Encounter Details Date Type Department Care Team (Late st Contact Info) Description 09/18/2019 Refill [facility] [place] [address] [place], [place] [phone] Gini Burleson, DENIAL MANAGEMENT REPRESENTATIVE - [facility] [address] [place] [address] Medication Refill Social History Tobacco Use Types Packs/Day Years Used Date Smoking Tobacco: Former Cigarettes Pipe Smokeless Tobacco: Never Alcohol Use Standard Drinks/Week Comments Yes 4 (1 standard drink = 0.6 oz pur e alcohol) daily/wine PHQ-2 Answer Date Recorded PHQ-2 Score 0 08/22/2019 Hunger Vital Sign Answer Date Recorded Worried About Running Out of Food in the Last Ye ar Never true 08/22/2019 Ran Out of Food in the Last Year Never true 08/22/2019 PRAPARE - Transportation Answer Date Re corded Lack of Transportation (Medical) No 08/22/2019 Lack of Transportation (Non-Medical) No 08/22/2019 Sex and Gender Information Value Date Recorded [...] Not on file Not on file 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
--- OUTSIDE RECORDS SUMMARY | 2025-01-24 09:04 | XMS_ITS | Clinical Summary ---
Author Organization [facility] Address [address] [place] [address] Care Team Providers Care Any Commodity Buyer Name Role Phone Unavailable Primary Care Provider Unavailabl e Encounters Date Type Department Care Team Description 11/14/2024 Transcribe Orders [facility] Neurology [address] [place] [address] Gini Burleson CNP Behavioral and psychological symptoms of dementia (HCC) (Primary Dx); Mild cognitive impairment; Major depressive disorder, recurrent, moderate (HCC) from Last 3 Months Social History Tobacco Use Types Packs/Day Years Used Date Smoking Tobacco: Never Assessed Sex and Gender Information Value Date Recorded Sex Assigned at Not on file Legal Sex Male 2:56 PM EDT Gender Identity Not on file Sexual Orientation Not on file Plan of Treatment Health Maintenance Due Date Last Done Comments Medicare Wellness Visit 02/23/1948 Depression Screening/Follow- Up (PHQ-2/9) 1957 Hepatitis C Screening 1963 Falls Risk Assessment 2010 Respiratory Syncytial Virus Immunization: Risk, 60-74 Risk, or 75+ (1 - 1-dose 75+ series) 02/23/2020 Tetanus: Every 10yrs 12/15/2023 12/14/2013 COVID-19 Vaccine (2 - 2023-2 5 season) 2024 07/27/2020 Influenza Vaccine (#1) 2025 , 03/26/2020, 04/20/2018, Additional history exists Zoster Vaccines Completed 09/08/2018, 06/09, 10/03/2013 Pneumococcal Vaccine: Age 50+ Completed , 01/02/2016, 04/14/2014, Additional history exists Insurance [employer] MEDICARE- ONLY [facility]
--- OUTSIDE RECORDS SUMMARY | 2025-01-24 09:04 | XMS_ITS | Clinical Summary ---
Author Organization [facility] Address [address], [address] [place] [address] Care Team Providers Care Promotions Director Name Role Phone Gini Burleson APRN - CONDUCTOR AND ENGINEER Primary Care Provider Allergies Active Allergy Reactions Criticality Noted Date Comments Ibuprofen 07/17/2020 Other reaction(s): HYPERTENSION Memantine 08/04/2023 Nsaids 02/28/2014 Elevates blood pressure Other Hives 10/20/2022 Gain laundry detergent caused continued rash. Medications aspirin 81 MG tabletIndications :Diarrhea Take 1 tablet by mouth daily Active donepezil (ARICEPT) 10 MG tabletIndications :Mild cognitive impairment Active tamsulosin (FLOMAX) 0.4 MG capsule Take 1 capsule by mouth daily At bedtime 90 capsule 3 024 Active losartan (COZAAR) 25 MG tablet Take 1 tablet by mouth daily Hypertension 90 tablet 3 024 Active Melatonin ER 10 MG TBCR Take by mouth 024 Active traZODone (DESYREL) 50 MG tablet Take 1 tablet by mouth in the morning and at bedtime Behavior outbursts 60 tablet 5 025 Active FLUoxetine (PROZAC) 10 MG capsule Take 1 capsule by mouth daily Wean off 30 capsule 025 Active thiamine 50 MG tablet Take 1 tablet by mouth daily Hx alcoholism/murray ry loss 30 tablet 025 Active simvastatin (ZOCOR) 40 MG tablet TAKE 1 TABLET BY MOUTH DAILY FOR HIGH CHOLESTEROL 90 tablet 1 025 Active OLANZapine (ZYPREXA) 2.5 MG tabletIndications :Behavioral and psychological symptoms of dementia (HCC),Outbursts of explosive behavior,Moderate vascular dementia with agitation (HCC) Take 1 tablet p.o. nightly for 7 days then take 2 tablets p.o. nightly after that 60 tablet 3 025 Active levothyroxine (SYNTHROID) 50 MCG tabletIndications :Acquired hypothyroidism TAKE 1 TABLET BY MOUTH DAILY ACQUIRED HYPOTHYROID 90 tablet 1 025 Active levothyroxine (SYNTHROID) 50 MCG tabletIndications :Acquired hypothyroidism Take 1 tablet by mouth Daily Acquired hypothyroid 90 tablet 1 025 2024 Discontinued Active Problems Problem Noted Date Diagnosed Date Behavioral and psychological symptoms of dementi a 10/19/2023 Mild cognitive impairment 10/19/2023 Major depressive disorder, recurrent, moderate 0 10/20/2022 HTN (hypertension) 11/11/2012 Hyperlipidemia 11/11/2012 Encounters Date Type Department Care Team Description 01/20/2025 Refill [facility] [address] [place] [address] Gini Burleson APRN - CONDUCTOR AND ENGINEER Medication Refill 01/11/2025 Abstract [facility] [address] [place] [address] Gini Burleson APRN - CONDUCTOR AND ENGINEER 11/23/2024 Telephone [facility] [address] [place] [address] Jeison Nelson, DO medication not working 11/10/2024 8:40 AM EDT Office Visit [facility] [address] [place] [address] Jeison Nelson, DO Behavioral and psychological symptoms of dementia (HCC) (Primary Dx); Outbursts of explosive behavior; Moderate vascular dementia with agitation (HCC) 11/08/2024 Telephone [facility] [address] [place] [address] Gini Burleson, JOURNEYMAN PRESS OPERATOR - CONDUCTOR AND ENGINEER Referral 10/28/2024 3:40 PM EDT Office Visit [facility] [address] [place] [address] Jeison Nelson, DO Outbursts of explosive behavior (Primary Dx); Moderate vascular dementia with agitation (HCC); Behavioral and psychological symptoms of dementia (HCC) from Last 3 Months Immunizations Immunization Administration Dates Next Due COVID-19, PFIZER PURPLE top, DILUTE for use, (age 12 y+), 30mcg/0.3mL 07/27/2020 Influenza Virus Vaccine 03/26/2020 Influenza Whole 05/10/2015 Influenza, FLUAD, (age 65 y+), IM, Quadv, 0.5mL 04/07/2023,04/01/2021 Influenza, FLUZONE High Dose (age 65 y+), IM, Quadv, 0.7mL 03/27/2022 Influenza, FLUZONE High Dose , (age 65 y+), IM, Trivalent PF, 0.5mL 04/20/2018 Pneumococcal Conjugate 7-valent (Prevnar7) 04/14 Pneumococcal, PCV-13, PREVNAR 13, (age 6w+), IM, 0.5mL 01/02/2016 Pneumococcal, PPSV23, PNEUMO VAX 23, (age 2y+), SC/IM, 0.5mL 04/21/2022,04/14/2014 TDaP, ADACEL (age 10y-64y), BOOSTRIX (age 10y+), IM, 0.5mL 12/14/2013 Zoster Live (Zostavax) 10/03/2013 Zoster Recombinant (Shingrix) 09/08/2018, 019 Family History Medical History Relation Name Comments Diabetes Father Arnol Stroke Father Arnol Heart Attack Maternal Grandmother Dementia Mother Myrtle Heart Failure Mother Myrtle Osteoporosis Paternal Grandfather Relation Name Status Comments Brother 1 Peña Alive Brother 2 Drew Alive Brother 3 Jah Alive Brother 4 Eber Alive Father Arnol (Age 69) Maternal Grandfather Maternal Grandmother Mother Myrtle Paternal Grandfather Paternal Grandmother Social History Tobacco Use Types Packs/Day Years Used Date Smoking Tobacco: Former Cigarettes Pipe Passive Smoke Exposure: Past Smokeless Tobacco: Never Tobacco Cessation:Counseling Given: Not Answered Alcohol Use Standard Drinks/Week Comments Not Currently 4 (1 standard drink = 0.6 oz pur e alcohol) daily/wine [facility] Utilities Answer Date Recorded In the past 12 months has th e electric, gas, oil, or water company threatened to [...] place to sleep or slept in a assisted (including now)? No 11/16/2023 Housing Stability Vital Sign Answer Jayce e Recorded In the last 12 months, was t here a time when you were not able to pay the mortgage or rent on time? No 08/15/2024 In the past 12 months, how m any times have you moved where you were living? 0 08/15/2024 At any time in the past 12 m [facility], were you homeless or living in a assisted (including now)? 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 Not on file Not on file Last Filed Vital Signs Vital Sign Reading Time Taken Comments Blood Pressure 120/60 11/10/2024 8:42 AM EDT Pulse 76 11/10/2024 8:42 AM EDT Temperature 36.7 C (98 F) 03/13/2022 11:23 AM EDT Respiratory Rate 20 05/20/2018 1:59 PM EST Oxygen Saturation 95% 11/10/2024 8:42 AM EDT Inhaled Oxygen Concentration - - Weight 82.6 kg (182 lb) 11/10/2024 8:42 AM EDT Height 185.4 cm (6' 1 ) 08/15/2024 9:27 AM EDT Body Mass Index 24.01 08/15/2024 9:27 AM EDT Plan of Treatment Health Maintenance Due Date Last Done Comments COVID-19 Vaccine ( season) 2024 02/16/2024, 03/27/2022, 12/27/2021, Additional history exists Flu vaccine (#1) 01/06/2025 04/22/2024, , 03/27/2022, Additional history exists Lipids 05/16/2025 05/16/2024, 11/07, 03/16/2023, Additional history exists Annual Wellness Visit (Medicare) 05/17/2025 05/16/2024, 04/27/2023, 04/21/2022, Additional history exists Depression Monitoring 08/15/2025 08/15/2024, 025 DTaP/Tdap/Td vaccine (3 - Td or Tdap) 07/01/2027 07/01/2017, 12/14/2013 Hepatitis C screen Addressed 12/03/2015 (Declined) Overridden with the intention of not completing the topic Shingles vaccine Completed 09/08/2018, , 10/03/2013 Colonoscopy Discontinued 04/15/2022, 0406/2018, 07/10/2010 (Previously completed) Pneumococcal 50+ years Vaccine Completed 04/21/2022, 01/02/2016, 04/14/2014, Additional history exists Respiratory Syncytial Virus (RSV) or age 60 yrs+ Completed 06/03/2023 AAA screen Discontinued 01/01/2024, 01/09/2016 Depression Screen Discontinued 08/15/2024, 08/15/2024 Hepatitis A vaccine Aged Out No longe r eligible based on patient's age to complete this topic Hepatitis B vaccine Aged Out No longe r eligible based on patient's age to complete this topic Hib vaccine Aged Out No longer eligi ble based on patient's age to complete this topic Meningococcal (ACWY) vaccine Aged Out No longer eligible based on patient's age to complete this topic Meningococcal B vaccine Aged Out No l onger eligible based on patient's age to complete this topic Polio vaccine Aged Out No longer elig ible based on patient's age to complete this topic Procedures Procedure Name Priority Date/Time Associated Diagnosis Comments LIPID PANEL Routine 05/16/2024 10:02 AM EST Mixed hyperlipidemia CT ABDOMEN PELVIS W CONTRAST Routine 01/01/2024 11:53 AM EDT HM COLONOSCOPY Routine 04/15/2022 from Last 3 Months or Most Recently Relevant to Health Maintenance Results * Lipid Panel (05/16/2024 10:02 AM EST) Cholesterol, Total 155 0 - 199 mg/dL 05/16/2024 10:02 AM [facility] Comment: Cholesterol Guidelines: <200 Desirable 200-240 Borderline >240 Undesirable HDL 54 >40 mg/dL 05/16/2024 10:02 AM [facility] Comment: HDL Guidelines: <40 Undesirable 40-59 Borderline >59 Desirable LDL Cholesterol 90 0 - 100 mg/dL 05/16/2024 10:02 AM [facility] Comment: LDL Guidelines: <100 Desirable 100-129 Near to/above Desirable 130-159 Borderline >159 Undesirable Direct (measured) LDL and calculated LDL are not interchangeable tests. Chol/HDL Ratio 2.9 05/16/2024 10:02 AM [facility] Triglycerides 56 <150 mg/dL 05/16/2024 10:02 AM [facility] Comment: Triglyceride Guidelines: <150 Desirable 150-199 Borderline 200-499 High >499 Very high Based on AHA Guidelines for fasting triglyceride, March 2012. VLDL 11 1 - 30 mg/dL 05/16/2024 10:02 AM [facility] Blood BLOOD SPECIMEN / Unknown 05/16/2024 10:02 AM EST 05/16/2024 10:03 AM EST Gini Burleson JOURNEYMAN PRESS OPERATOR - CONDUCTOR AND ENGINEER CHEMISTRY ORDERABLES Fi nal Result [facility] [address] [place] [address], [facility] [phone] [employer] [address] [place] [address], [facility] [phone] * CT Abdomen Pelvis W Contrast (01/01/2024 11:53 AM EDT) Anatomical Region Laterality Modality Computed Tomogra phy Historical Provider IMG CT ORDERABLES Final R esult * HM COLONOSCOPY (04/15/2022) Historical Provider HEALTH MAINTENANCE Final Result from Last 3 Months or Most Recently Relevant to Health Maintenance Insurance [employer] MEDICARE [employer] MEDICARE [facility] Advance Directives Documents on File Type Date Recorded Patient Zookeeper Expl anation ACP-Do Not Resuscitate 04/21/2022 9:41 AM 04/21/22 DNR Comfort Care * DNR-CC (Latest Code Status on File) Date Activated Date Inactivated Comments 04/23/2022 12:08 AM Healthcare Agents on File Name Relationship Healthcare Agent Relationshi p Communication Ashleigh Penn Spouse Primary Decision Maker Care Teams Promotions Director Relationship Specialty Start Date End Date Gini Burleson, JOURNEYMAN PRESS OPERATOR - CONDUCTOR AND ENGINEER [address] [place] [address] PCP - General 01/09/16
--- OUTSIDE RECORDS SUMMARY | 2025-01-24 09:04 | XMS_ITS | Encounter Summary ---
Author Organization [facility] Address [address], [address] [place] [address] Care Team Providers Care Pattern Filer Name Role Phone Gini Burleson APRN - BEVERAGE SALES CONSULTANT Primary Care Provider Encounter Details Date Type Department Care Team (Late st Contact Info) Description 01/18/2024 Orders Only [facility] [place] [address] [place] [address] Provider, MD Paras Social History Tobacco Use [...] place to sleep or slept in a group home (including now)? 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 on file Not on file documented as of this encounter Plan of Treatment Not on file documented as of this encounter Procedures Procedure Name Priority Date/Time Associated Diagnosis Comments LAB RESULT Routine 01/05/2024 11:[address] ABDOMEN PELVIS W CONTRAST Routine 01/01/2024 11:53 AM EDT documented in this encounter Results * LAB RESULT (01/05/2024 11:55 AM EDT) us Historical Provider CHEMISTRY ORDERABLES Lin l Result * CT Abdomen Pelvis W Contrast (01/01/2024 11:53 AM EDT) Anatomical Region Laterality Modality Computed Tomogra phy us Historical Provider IMG CT ORDERABLES Final R esult documented in this encounter Visit Diagnoses Not on filedocumented in this encounter Additional Health Concerns Assessment Noted Time A fall risk assessment has been complete d for the patient 04/27/2023 8:30 AM EST documented as of this encounter Care Teams Pattern Filer Relationship Specialty Start Date End Date Gini Burleson APRN - BEVERAGE SALES CONSULTANT [address] [place], [place] [id number] PCP - General 01/09/16 documented as of this encounter
--- OUTSIDE RECORDS SUMMARY | 2025-01-24 09:04 | XMS_ITS | Clinical Summary ---
Author Organization [facility] Address [address] [place] [address] Care Team Providers Care Studio Assistant Name Role Phone Gini Burleson MD Primary Care Provider [phone] Allergies Active Allergy Reactions Criticality Noted Date Comments Ibuprofen Other 07/17/2020 Other reaction(s): HYPERTENSION Other Reaction(s): HYPERTENSION, increases BP Other reaction(s): HYPERTENSION Memantine 08/04/2023 Nsaids (Non-Steroidal Anti-Inflammatory Drug) 02/28/2014 Elevates blood pressure Elevates blood pressure Medications aspirin 81 mg EC tablet Take 81 mg by mouth in the morning. Active tamsulosin (Flomax) 0.4 mg 24 hr capsule 3 Active donepezil (Aricept) 10 mg tablet Take 10 mg by mouth at bedtime. 4 Active FLUoxetine (PROzac) 40 mg capsule TAKE 1 CAPSULE BY MOUTH DAILY FOR ANXIETY OR MOOD 4 Active QUEtiapine (SEROquel) 50 mg tablet Take 150 mg by mouth 1 (one) time each day. 100mg in the AM, 50mg in the PM 4 Active clopidogrel (Plavix) 75 mg tablet Take 1 tablet by mouth in the morning. 4 Active levothyroxine (Synthroid, Levoxyl) 50 mcg tablet Take 50 mcg by mouth. 4 Active melatonin 10 mg tablet extended release Take 20 mg by mouth in the morning. 4 Active traZODone (Desyrel) 50 mg tablet Take 50 mg by mouth two times daily. Active losartan (Cozaar) 25 mg tabletIndications:E ssential hypertension TAKE 1 TABLET(25 MG) BY MOUTH IN THE MORNING 90 tablet 3 5 Active simvastatin (Zocor) 40 mg tabletIndications:H yperlipidemia, unspecified hyperlipidemia type Take 1 tablet (40 mg) by mouth at bedtime. 30 tablet 11 5 10/21/19 26 Active Active Problems Problem Noted Date Diagnosed Date Epididymitis 08/09/2024 Valero catheter status 08/09/2024 Hydrocele 08/09/2024 Postop check 01/14/2024 BMI 24.0-24.9, adult 11/16/2023 Former smoker 11/16/2023 Cerebrovascular accident (CV A) due to stenosis of right carotid artery 11/12/2023 COVID-19 11/12/2023 Impotence 11/12/2023 Positive colorectal cancer screening using Colog uard test 11/12/2023 Transient ischemic attack in volving right internal carotid artery 11/12/2023 Overview (11/16/2023): Last Assessment & Plan: Cardiac risk stratification Continue aspirin and statin Will add Plavix to start now and for 1 month after carotid endarterectomy We will plan on right carotid endarterectomy for symptomatic Moderate right ICA stenosis Behavioral and psychological symptoms of dementi a 10/19/2023 Mild cognitive impairment 10/19/2023 Benign prostatic hyperplasia with urinary obstru ction 08/04/2023 08/04/2023 Gross hematuria 08/04/2023 08/04/2023 Nocturia 08/04/2023 08/04/2023 Poor urinary stream 08/04/2023 08/04/2023 Bilateral carotid artery occlusion 04/07/2023 08/04/2023 Carotid stenosis, bilateral 04/07/2023/12/2023 Major depressive disorder, recurrent, moderate 0 10/20/2022 08/04/2023 Carotid artery stenosis 04/11/2021 HTN (hypertension) 11/11/2012 Hyperlipidemia 11/11/2012 Family History Medical History Relation Name Comments Diabetes Father Stroke Father Relation Name Status Comments Father Social History Tobacco Use Types Packs/Day Years Used Date Smoking Tobacco: Never Assessed [place] Safety & Environment Answer Date Rec orded Fear of Current or Ex-Partner Not on file Emotionally Abused Not on file 07/30/2023 Physically Abused Not on file 07/30/2023 Sexually Abused Not on file 07/30/2023 Physically or Sexually Abused Not on file Sex and Gender Information Value Date Recorded Sex Assigned at Not on file Legal Sex Male 11:59 PM EDT Gender Identity Not on file Sexual Orientation Not on file Last Filed Vital Signs Vital Sign Reading Time Taken Comments Blood Pressure 120/68 08/09/2024 11:20 AM EST Pulse 79 08/09/2024 11:20 AM EST Temperature - - Respiratory Rate - - Oxygen Saturation 98% 08/09/2024 11:20 AM EST Inhaled Oxygen Concentration - - Weight 84.8 kg (187 lb) 08/09/2024 11:20 AM EST Height 185.4 cm (6' 1 ) 08/09/2024 11:20 AM EST Body Mass Index 24.67 08/09/2024 11:20 AM EST Plan of Treatment Health Maintenance Due Date Last Done Comments Medicare Annual Wellness (AWV) 1945 Depression Screening 1957 Fall Risk Screening 2010 Adult Tetanus 12/15/2023 12/14/2013 COVID-19 Vaccine ( season) 2024 02/16/2024, 03/27/2022, 12/27/2021, Additional history exists Influenza Vaccine (#1) 2025 , 04/07/2023, 03/27/2022, Additional history exists Zoster Vaccines Completed 09/08/2018, 06/09, 10/03/2013 Pneumococcal Vaccine: 50+ Years Completed 04/21/2022, 01/02/2016, 04/14/2014, Additional history exists HIB Vaccines Aged Out No longer eligi ble based on patient's age to complete this topic HPV Vaccines Aged Out No longer eligi ble based on patient's age to complete this topic IPV Vaccines Aged Out No longer eligi ble based on patient's age to complete this topic Meningococcal B Vaccine Aged Out No l onger eligible based on patient's age to complete this topic Meningococcal Vaccine Aged Out No ruth ivette eligible based on patient's age to complete this topic Rotavirus Vaccines Aged Out No longer eligible based on patient's age to complete this [place] [address] Care Teams Studio Assistant Relationship Specialty Start Date End Date Gini Burleson MD [address] [place] [id number] PCP - General 07/09/22
--- OUTSIDE RECORDS SUMMARY | 2025-01-24 09:04 | XMS_ITS | Encounter Summary ---
Author Organization [employer] Address [id number] [address] [place] [address] Care Team Providers Care Training And Development Rep Name Role Phone Gini Burleson APRN-CANARY BREEDER Primary Care Provider [phone] Encounter Details Date Type Department Care Team (Late st Contact Info) Description 01/26/2024 Orders Only [facility] [address] [place] [address] Daisy Reyes CMA Postop check Social History Tobacco Use Types Packs/Day Years Used Date Smoking Tobacco: Former Pipe Cigars Passive Smoke Exposure: Never Smokeless Tobacco: Never Alcohol Use Standard Drinks/Week Comments Not Currently 4 (1 standard drink = 0.6 oz pur e alcohol) [facility] Utilities Answer Date Recorded In the past 12 months has e electric, gas, oil, or water company [...] Description 02/02/2025 11:40 AM EDT Office Visit [facility] [place] [address] [place] [address] Marlys Garcia MD [address], [address] [address] documented as of this encounter Visit Diagnoses Diagnosis Postop check Follow-up examination, following unspecified surgery documented in this encounter Additional Health Concerns Assessment Noted Time PHQ-9 Depression Total Score: 0 12/29/19 24 5:17 PM EDT documented as of this encounter Care Teams Training And Development Rep Relationship Specialty Start Date End Date Gini Burleson, SENIOR ARCHITECT-CANARY BREEDER [address] [place] [phone] PCP - General Family Medicine 12/21/23 documented as of this encounter
--- OUTSIDE RECORDS SUMMARY | 2025-01-24 09:04 | XMS_ITS | Clinical Summary ---
Author Organization [facility] Address [address] [place] [address] Care Team Providers Care Php Web Developer Name Role Phone Olimpia Middleton MD Primary Care Provider [phone] Gini Burleson NP Unavailable [phone] Allergies Active Allergy Reactions Criticality Noted Date Comments Ibuprofen 07/17/2020 Other Reaction(s): HYPERTENSION, increases BP Other reaction(s): HYPERTENSION Nsaids 02/28/2014 Elevates blood pressure Medications losartan (Cozaar) 25 MG tablet 3 Active tamsulosin (Flomax) 0.4 MG 24 hr capsule Take 0.4 mg by mouth in the morning. Active simvastatin (Zocor) 40 MG tablet 3 Active QUEtiapine (SEROquel) 25 MG tablet TAKE 1 TABLET BY MOUTH AT BEDTIME FOR DYSTHYMIA 3 Active ASPIRIN 81 PO Take 1 tablet by mouth in the morning. Active donepezil (Aricept) 10 MG tabletIndicatio ns:Memory loss TAKE 1 TABLET BY MOUTH EVERY DAY AT BEDTIME 90 tablet 1 4 Active donepezil (Aricept) 10 MG tabletIndicatio ns:Other amnesia TAKE 1 TABLET BY MOUTH EVERYDAY AT BEDTIME 30 tablet 3 5 Active levothyroxine (Synthroid, Levoxyl) 50 MCG tablet Take 50 mcg by mouth in the morning. Take before meals. Active traZODone (Desyrel) 50 MG tablet Take 50 mg by mouth in the morning and 50 mg before bedtime. Active OLANZapine (ZyPREXA) 2.5 MG tablet Take 5 mg by mouth at bedtime Active Active Problems Problem Noted Date Diagnosed Date Bilateral carotid artery occlusion 04/07/2023 Carotid stenosis, bilateral 04/07/2023 Major depressive disorder, recurrent, moderate 0 10/20/2022 HTN (hypertension) 11/11/2012 Hyperlipidemia 11/11/2012 Encounters Date Type Department Care Team Description 01/05/2025 Telephone [facility] [address] [place] [phone] Sarah Melendez NP 12/06/2024 Telephone [facility] [address] [place] [address] Mickie Acevedo MA 11/30/2024 9:40 AM EDT Office Visit [facility] [address] [place] [phone] Sarah Melendez NP 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) (Primary Dx) 11/30/2024 Bamboo flowsheet [facility] [address] [place] [phone] Sarah Melendez NP 11/30/2024 Travel from Last 3 Months Family History Medical History Relation Name Comments Diabetes Father Stroke Father Dementia Mother Relation Name Status Comments Father Mother Social History Tobacco Use Types Packs/Day Years Used Date Smoking Tobacco: Former Cigarettes Cigars Smokeless Tobacco: Former Tobacco Cessation:Counseling Given: Not Answered Alcohol Use Standard Drinks/Week Comments Not Currently 40 (1 standard drink = 0.6 oz pu re alcohol) no alcohol for 3 months Sex and Gender Information Value Date Recorded Sex Assigned at Not on file Legal Sex Male 7:07 PM EDT Gender Identity Not on file Sexual Orientation Not on file Last Filed Vital Signs Vital Sign Reading Time Taken Comments Blood Pressure 118/60 11/30/2024 9:46 AM EDT Pulse 77 04/07/2023 10:20 AM EDT Temperature - - Respiratory Rate 16 04/07/2023 10:20 AM EDT Oxygen Saturation - - Inhaled Oxygen Concentration - - Weight 82.6 kg (182 lb) 11/30/2024 9:46 AM EDT Height 185.4 cm (6' 1 ) 11/30/2024 9:46 AM EDT Body Mass Index 24.01 11/30/2024 9:46 AM EDT Plan of Treatment Upcoming Encounters Date Type Department Care Team (Late st Contact Info) Description 02/14/2025 2:15 PM EDT Office Visit [facility] [address] [place] [phone] Ted Putnam DO [address] [place] [address] Health Maintenance Due Date Last Done Comments Influenza Vaccine (#1) 2025 4, 04/07/2023, 03/27/2022, Additional history exists Pneumococcal Vaccine: 65+ Years Completed 2, 01/02/2016 [place] [address] [facility] [place] [address] Care Teams Php Web Developer Relationship Specialty Start Date End Date Olimpia Middleton MD [address] [place] [address] PCP - General Family Medicine 04/07/23 Gini Burleson NP [address] [place] [phone] Referring Physician Family Medicine 04/07/23
--- OUTSIDE RECORDS SUMMARY | 2025-01-24 09:04 | XMS_ITS | Encounter Summary ---
Author Organization [facility] Address [address] [place] [address] Care Team Providers Care High Court Justice Name Role Phone Gini Burleson MD Primary Care Provider [phone] Reason for Visit * Reason Comments Med Refill Encounter Details Date Type Department Care Team (Late st Contact Info) Description 09/14/2022 Refill [facility] [address] [place] [address] Jac Cintron MD [address] [facility] [address] [facility] [place] [phone] Hyperlipidemia, unspecified hyperlipidemia type Social History Tobacco Use Types Packs/Day Years Used Date Smoking Tobacco: Never Assessed Sex and Gender Information Value Date Recorded Sex Assigned at Not on file Legal Sex Male 11:59 PM EDT Gender Identity Not on file Sexual Orientation Not on file documented as of this encounter Plan of Treatment Not on file documented as of this encounter Visit Diagnoses Diagnosis Hyperlipidemia, unspecified hyperlipidemia type documented in this encounter Care Teams High Court Justice Relationship Specialty Start Date End Date Gini Burleson MD [address] [place] [phone] PCP - General 07/09/22 documented as of this encounter
--- OUTSIDE RECORDS SUMMARY | 2025-01-24 09:04 | XMS_ITS | Encounter Summary ---
Author Organization [facility] Address [id number] [address] [place] [address] Care Team Providers Care Game Programmer Name Role Phone Gini Burleson APRN-DELIVERY CREW WORKER Primary Care Provider [phone] Encounter Details Date Type Department Care Team (Late st Contact Info) Description 01/13/2024 Orders Only [facility] [address] [place] [phone] Bernabe Fuentes MD [address] [place] [address] Social History Tobacco Use Types Packs/Day Years Used Date Smoking Tobacco: Former Pipe Cigars Passive Smoke Exposure: Never Smokeless Tobacco: Never Alcohol Use Standard Drinks/Week Comments Not Currently 4 (1 standard drink = 0.6 oz pur e alcohol) [facility] Utilities Answer Date Recorded In the past 12 months has [employer], gas, oil, or water [employer] threatened to shut off services in your [...] got money to buy more. Never True 01/14/2024 Within the past 12 months th e food we bought just didn't last and we didn't have money to get more. Never True 01/14/2024 Purpose - Life Answer Date Recorded Purpose [...] AM EDT Office Visit [facility] [place] [address] [place] [address] Marlys Garcia MD [address], [address] [address] documented as of this encounter Procedures Procedure Name Priority Date/Time Associated Diagnosis Comments CT CTA ABD AND PELVIS Routine 01/01/2024 2:33 PM EDT VASC CAROTID DUPLEX BILATERAL Routine 10/31/2023 4:17 PM EDT documented in this encounter Results * CT angiogram abdomen and pelvis (01/01/2024 2:33 PM EDT) Anatomical Region Laterality Modality Body, Abdomen, Body Covera N/A Compu hunter Tomography us Bernabe Fuentes MD IMG CT ORDERABLES Final Resul t * Vas carotid duplex bilateral (10/31/2023 4:17 PM EDT) Anatomical Region Laterality Modality Vascular Bilateral Ultrasound us Marlys Garcia MD CV VASCULAR ORDERABLES Final Result documented in this encounter Visit Diagnoses Not on filedocumented in this encounter Additional Health Concerns Assessment Noted Time PHQ-9 Depression Total Score: 0 12/29/19 5:17 PM EDT documented as of this encounter Care Teams Game Programmer Relationship Specialty Start Date End Date Gini Burleson, FINANCIAL ADMINISTRATION OFFICER-DELIVERY CREW WORKER [address] [place] [phone] PCP - General Family Medicine 12/21/23 documented as of this encounter
--- OUTSIDE RECORDS SUMMARY | 2025-01-24 09:04 | XMS_ITS | Encounter Summary ---
Author Organization [facility] Address [address], [address] [place] [address] Care Team Providers Care Electrician Refinery Name Role Phone Sarah Beth Ginirandal Medina APRN - [facility] Primary Care Provider Reason for Referral * Imaging (Routine) - Closed Specialty Diagnoses / Procedures Referred By Contac t Referred To Contact Diagnoses Rheumatic disorders of both mitral and aortic valves Procedures Echo (TTE) complete (PRN contrast/bubble/strain/3D) WA ECHO TTHRC R-T 2D W/WOM-MODE COMPL SPEC&COLR D WA TTE W OR WO FOL WCON,DOPPLER Jac Cintron MD [address] [place] [address] Phone: tel: fax: Referral ID Status Reason Start Date Expiration Date Visits Re quested Visits Authorized [id number] Closed 11/19/2023 11/18/2024 1 1 Encounter Details Date Type Department Care Team (Late st Contact Info) Description 11/19/2023 Transcribe Orders [facility] [address] [place] [address] Jac Cintron MD [address] [place] [address] Rheumatic disorders of both mitral and aortic valves (Primary Dx) Social History Tobacco Use Types Packs/Day Years [...] place to sleep or slept in a long-term (including now)? 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 Not on file Not on file documented as of this encounter Plan of Treatment Not on file documented as of this encounter Results * (ABNORMAL) ECHO (TTE) COMPLETE (12/02/2023 3:29 PM EDT) LVOT Diameter 2.3 cm [facility] C V CPACS LV Ejection Fraction A4C 52 % [facility] CV CPACS LV EDV A4C 92 mL [facility] CV CPACS LV ESV A4C 44 mL [facility] CV CPACS IVSd M-mode 1.3(A) 0.6 - 1.0 cm [facility] CV CPACS IVSs M-mode 1.7 cm [facility] CV CPACS LVIDd M-mode 3.5(A) 4.2 - 5.9 cm [facility] CV CPACS LVIDs M-mode 1.4 cm [facility] CV CPACS LVPWd M-mode 1.3(A) 0.6 - 1.0 cm [facility] CV CPACS LVPWs M-mode 1.9 cm [facility] CV CPACS RVSP 26 mmHg [facility] CV CPACS LA Diameter 3.3 cm [facility] CV CPACS LA Volume A-L A4C 56 18 - 58 mL [facility] CV CPACS LA Volume MOD A4C 53 18 - 58 mL [facility] CV CPACS Est. RA Pressure 5 mmHg [facility] CV CPACS AV Cusp Mmode 1.9 cm [facility] C V CPACS AR PHT 640.7 millisecond [facility] CV CPACS AR Max Velocity PISA 3.8 m/s [facility] CV CPACS AV Peak Gradient 11 mmHg [facility] CV CPACS AV Peak Velocity 1.6 m/s [facility] CV CPACS MV A Velocity 1.01 m/s [facility] C V CPACS MV E Wave Deceleration Time 182.9 ms BS CV CPACS MV E Velocity 1.07 m/s [facility] C V CPACS LV E' Lateral Velocity 8 cm/s [facility] CV CPACS MV PHT 53.0 ms BS CV CPACS PV Peak Gradient 3 mmHg [facility] CV CPACS PV Max Velocity 0.8 m/s [facility] CV CPACS TR Peak Gradient 21 mmHg [facility] CV CPACS TR Max Velocity 2.30 m/s [facility] CV CPACS Ascending Aorta 3.3 cm BS CV CPACS Aortic Root 3.9 cm BS CV CPACS Body Surface Area 2.11 m2 BS CV CPACS LV ESV Index A4C 21 mL/m2 [facility] CV CPACS LV EDV Index A4C 44 mL/m2 [facility] CV CPACS MV E/A 1.06 BS CV CPACS E/E' Lateral 13.38 BS CV CPACS LVOT Area 4.2 cm2 [facility] CV CPACS LA Volume Index A-L A4C 27 16 - 34 mL/m2 BS CV CPACS LA Volume Index MOD A4C 25 16 - 34 ml/m2 BS CV CPACS LA Size Index 1.56 cm/m2 [facility] C V CPACS LA/AO Root Ratio 0.85 [facility] CV CPACS Ao Root Index 1.85 cm/m2 [facility] C V CPACS Ascending Aorta Index 1.56 cm/m2 [facility] CV CPACS MV Area by PHT 4.2 cm2 [facility] CV CPACS Anatomical Region Laterality Modality Echocardiography Narrative 12/02/2023 8:42 PM EDT Left Ventricle: Normal left ventricular systolic function with a visually estimated EF of 50 - 55%. Left ventricle size is normal. Moderatel-severe LVH with diastolic dysfunction. Right Ventricle: Right ventricle size is normal. Normal wall thickness. RV ESV is normal. Aortic Valve: Mildly thickened cusp. No aortic stenosis. Mitral Valve: Valve structure is normal. No leaflet thickening. Trace regurgitation. Tricuspid Valve: Valve structure is normal. No leaflet thickening. Mild regurgitation. The estimated RVSP is 26 mmHg. Left Atrium: Left atrium is moderately dilated. Right Atrium: Right atrium is mildly dilated. Aorta: Normal sized aortic root. Image quality is good. No significant change from echo on 05-15-2021 Left Ventricle Normal left ventricular systolic function with a visually estimated EF of 50 - 55%. Left ventricle size is normal. Moderatel-severe LVH with diastolic dysfunction. Right Ventricle Right ventricle size is normal. Normal wall thickness. RV ESV is normal. Left Atrium Left atrium is moderately dilated. Right Atrium Right atrium is mildly dilated. Mitral Valve Valve structure is normal. No leaflet thickening. Trace regurgitation. Tricuspid Valve Valve structure is normal. No leaflet thickening. Mild regurgitation. The estimated RVSP is 26 mmHg. Aortic Valve Mildly thickened cusp. No aortic stenosis. Pulmonic Valve The pulmonic valve visualization is suboptimal but appears to be functioning normally. Ascending Aorta Normal sized aortic root. Pericardium No pericardial effusion. Study Details Image quality: good. Color flow Doppler was performed and pulse wave and/or continuous wave Doppler was performed. No contrast was given. [facility] Cintron MD CV ECHO ORDERABLES Final Resu lt documented in this encounter Visit Diagnoses Diagnosis Rheumatic disorders of both mitral and aortic valves- Primary Rheumatic disorders of both mitral and aortic valves documented in this encounter Additional Health Concerns Assessment Noted Time A fall risk assessment has been complete d for the patient 04/27/2023 8:30 AM EST documented as of this encounter Care Teams Electrician Refinery Relationship Specialty Start Date End Date Gini Burleson APRN - SAND CASTER APPRENTICE [address] [place] [address] PCP - General 01/09/16 documented as of this encounter
--- OUTSIDE RECORDS SUMMARY | 2025-01-24 09:04 | XMS_ITS | Encounter Summary ---
Author Organization [facility] Address [address], [address] [place] [address] Care Team Providers Care Nuclear Medicine Technologist Name Role Phone Gini Burleson MOLD SHOP SUPERVISOR - TREE KILLER Primary Care Provider Reason for Visit * Reason Comments Medication Refill Encounter Details Date Type Department Care Team (Late st Contact Info) Description 03/04/2021 Refill [facility] [place] [address] [place] [address] Gini Burleson, MOLD SHOP SUPERVISOR - TREE KILLER [address] [place] [address] Medication Refill Social History Tobacco Use Types Packs/Day Years Used Date Smoking Tobacco: Former Cigarettes Pipe Smokeless Tobacco: Never Alcohol Use Standard Drinks/Week Comments Yes 4 (1 standard drink = 0.6 oz pur e alcohol) daily/wine Overall Financial Resource Strain (CARDIA) Answe r Date Recorded How hard is it for you to pa y for the very basics like food, housing, medical care, and heating? Not hard at all 10/22/2020 PHQ-2 Answer Date Recorded PHQ-9 Total Score 0 10/22/2020 Hunger Vital Sign Answer Date Recorded Within the past 12 months, y ou worried that your food would run out before you got the money to buy more. Never true 10/23/19 21 Within the past 12 months, t he food you bought just didn't last and you didn't have money to get more. 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 Not on file Not on file documented as of this encounter Plan of Treatment Not on file documented as of this encounter Visit Diagnoses Diagnosis Dizziness Dizziness and giddiness Bilateral carotid artery stenosis Occlusion and stenosis of multiple and bilateral precerebral arteries without mention of cerebral infarction Short-term memory loss Memory loss documented in this encounter Additional Health Concerns Assessment Noted Time A fall risk assessment has been complete d for the patient 10/22/2020 8:19 AM EDT documented as of this encounter Care Teams Nuclear Medicine Technologist Relationship Specialty Start Date End Date Gini Burleson, MOLD SHOP SUPERVISOR - TREE KILLER [address] [place] [address] PCP - General 01/09/16 documented as of this encounter
--- OUTSIDE RECORDS SUMMARY | 2025-01-24 09:04 | XMS_ITS | Encounter Summary ---
Author Organization [facility] Address [address], [address] [place] [address] Care Team Providers Care Clinical Writer Name Role Phone Gini Burleson APRN - DAIRY FROZEN MANAGER Primary Care Provider Reason for Visit * Reason Comments Medication Refill Encounter Details Date Type Department Care Team (Late st Contact Info) Description 01/20/2025 Refill [facility] [place] [address] [place] [phone] Gini Burleson, BRIDGES SUPERVISOR - DAIRY FROZEN MANAGER [place] [phone] Medication Refill Social History Tobacco Use Types Packs/Day Years Used Date Smoking Tobacco: Former Cigarettes Pipe Passive Smoke Exposure: Past Smokeless Tobacco: Never Alcohol Use Standard Drinks/Week Comments Not Currently 4 (1 standard drink = 0.6 oz pur e alcohol) daily/wine [facility] Utilities Answer Date Recorded In the past 12 months has [employer], gas, oil, or water [employer] threatened to shut off services in your [...] place to sleep or slept in a senior living (including now)? No 11/16/2023 Housing Stability Vital Sign Answer Jayce e Recorded In the last 12 months, was t here a time when you were not able to pay the mortgage or rent on time? No 08/15/2024 In the past 12 months, how m any times have you moved where you were living? 0 08/15/2024 At any time in the past [address] [facility], were you homeless or living in a senior living (including now)? No 08/15/2024 Food Insecurity Answer [...] as of this encounter Visit Diagnoses Diagnosis Acquired hypothyroidism Unspecified hypothyroidism documented in this encounter Additional Health Concerns Assessment Noted Time A fall risk assessment has been complete d for the patient 05/16/2024 8:30 AM EST documented as of this encounter Care Teams Clinical Writer Relationship Specialty Start Date End Date Gini Burleson APRN - DAIRY FROZEN MANAGER [address] [place] [address] PCP - General 01/09/16 documented as of this encounter
--- OUTSIDE RECORDS SUMMARY | 2025-01-24 09:04 | XMS_ITS | Encounter Summary ---
Author Organization [facility] Address [id number] [address] [place] [address] Care Team Providers Care Sanding Supervisor Name Role Phone Sarah BethGini Carol BUENROSTRO-TRAFFIC CLERK Primary Care Provider [phone] Encounter Details Date Type Department Care Team (Late Contact Info) Description 10/31/2023 Orders Only [facility] [address] [place] [phone] Transcribe, Orders Support User Pain Social History Tobacco Use Types Packs/Day Years Used Date Smoking Tobacco: Never Assessed Childcare Answer Date Recorded Childcare Unknown 01/24/2019 [...] 02/02/2025 11:40 AM EDT Office Visit [facility] [place] [address] [place] [address] Marlys Garcia MD [address], [address] [address] documented as of this encounter Results * CT angiogram carotid (10/30/2023 5:05 PM EDT) us Scanning Provider External IMG CT ORDERABLES Fin al Result * CT brain without contrast stroke alert (10/30/2023 2:55 PM EDT) us Scanning Provider External IMG CT ORDERABLES Fin al Result documented in this encounter Visit Diagnoses Diagnosis Pain Generalized pain documented in this encounter Care Teams Sanding Supervisor Relationship Specialty Start Date End Date Gini Burleson, BUSINESS DEVELOPMENT ENGINEER-TRAFFIC CLERK [address] [place] [phone] PCP - General Family Medicine 12/21/23 documented as of this encounter
--- OUTSIDE RECORDS SUMMARY | 2025-01-24 09:07 | XMS_ITS | CCD ---
Author Organization [facility] Care Team Providers Care Bricklayer Apprentice Name Role Phone Candace Giron Primary Care Provider UNKNOWN, PHYSICIAN Referring Unavailable CANDACE GIRON Primary Care Unavailable KENYATTA MORA Attending Unavailable KENYATTA MORA Admitting Unavailable Candace Sevilla APRN, CNP Primary Care Provider CANDACE GIRON Primary Care Physician Candace Sevilla APRN, CNP Primary Care Provider PORTER Giron Primary Care Provider MD Christiano Ravi Attending Provider LEÓN, DR AGUERO Admitting Unavailable LEÓN, DR AGUERO Attending Unavailable [facility] [place], DR ATKINSON Consulting Unavailable LEÓN, DR AGUERO Consulting Unavailable PORTER Giron Primary Care Provider DO Leonides Velasquez Emergency Provider [phone] Leonides Velasquez Admitting Unavailable Candace Giron Primary Care Unavailable Leonides Velasquez Attending Unavailable CANDACE GIRON Primary Care Unavailable CARLOS MANUEL GARCIA Admitting Unavailable CARLOS MANUEL GARCIA F Attending Unavailable АННА BROWER Consulting Unavailable IRISH SCHRADER Consulting Unavailable JARETH FGIUEROA Attending Unavailable CANDACE GIRON Primary Care Unavailable CARLOS MANUEL GARCIA Attending Unavailable Candace Sevilla APRN, CNP Primary Care Provider Olimpia Middleton MD Primary Care Provider Candace Giron NP Unavailable Humaira Ragsdale Attending Unavailable CANDACE GIRON Primary Care Unavailable Makayla Corona Attending Unavailable BREE, CANDACE Primary Care Unavailable Humaira Ragsdale X Attending Unavailable BREE, CANDACE Primary Care Unavailable BREE, CANDACE Primary Care Unavailable Chintan GRACIA Attending Unavailable [place]issac, Humaira X Attending Unavailable BREE, CANDACE Primary Care Unavailable Makayla Corona Attending Unavailable BREE, CANDACE Primary Care Unavailable Charles Kim Attending Unavailable Charles Kim Referring Unavailable BREE, CANDACE Primary Care Unavailable ELTAHAWY, EHAB Attending Unavailable ELTAHAWY, EHAB Attending Unavailable Bree GRAY TENDER - LORNA, Candace Medina Primary Care Provider CANDACE GIRON M WOOD LATHER Attending Unavailable CANDACE GIRON M Referring Unavailable BREE, CANDACE M Primary Care Unavailable BREE, CANDACE M Referring Unavailable BREE, CANDACE M Primary Care Unavailable ELTAHAWY, EHAB A Referring Unavailable BREE, CANDACE M Primary Care Unavailable BREE, CANDACE M Referring Unavailable BREE, CANDACE M Primary Care Unavailable Unavailable Primary Care Provider UnavailDAFNE Moss Attending Unavailable Allergies Allergy Classification Reported Allergen(s) Allergy Type Date of Onset Reaction(s) Facility NSAIDs (2 sources) Ibuprofen Drug Allergy 4 [facility] (9 sources) NSAIDs Propensity to adverse reactions to drug 4 [place] (5 sources) Shellfish-Deriv ed Products Propensity to adverse reactions to drug 8 [place] (20 sources) Ibuprofen; Translations: [ibuprofen] Drug Allergy 1 HYPERTENSION [facility] (1 source) Ibuprofen Drug Allergy 2 [facility] (6 sources) Memantine; Translations: [MEMANTINE] Drug Allergy 4 [facility] (3 sources) NSAIDs; Translations: [NSAIDS (NON-STEROIDAL ANTI-INFLAMMATO RY DRUG)] Propensity to adverse reactions to drug (disorder) 4 [facility] (2 sources) Non-steroidal anti-inflammato ry agent Propensity to adverse reactions to drug 4 [facility] (6 sources) Non-steroidal anti-inflammato ry agent Drug Intolerance 4 [facility] NEGATED: Highlighted row has been ruled out! (2 sources) Other Propensity to adverse reactions 3 Hives [facility] Work Phone: Medications Current Medications Medication Drug Class(es) Dates Sig (Normalized) Sig (Original) aspirin 81 mg delayed release oral tablet (20 sources) Platelet Aggregation Inhibitor, Nonsteroidal Anti-inflammatory Drug Start: 03-07-2020 take 1 tablet by mouth once daily aspirin 81 mg Oral EC Tab 81 mg = 1 tab(s), Oral, Daily, Refills(s) 0 Start Date: 01/13/22 Status: Ordered take 1 tablet by mouth once reid y aspirin 81 MG tablet Indications: Diarrhea Take 1 tablet by mouth daily Active take 1 tablet by mouth in the mo rning ASPIRIN 81 PO Take 1 tablet by mouth in the morning. Active clopidogrel 75 mg oral tablet (2 sources) P2Y12 Platelet Inhibitor Start: 12-31-2023 clopidogrel 75 mg Tab Refills(s) 0 Start Date: 12/31/23 Status: Ordered donepezil hydrochloride 10 mg oral tablet (20 sources) Start: 12-31-2023 take 1 tablet by mouth once daily at bedtime donepezil 5 mg Tab TAKE 1 TABLET BY MOUTH EVERY DAY AT BEDTIME FOR 30 DAYS Start Date: 12/31/23 Status: Ordered Start: 02-05-2021 End: 07-11-2024 take 1 tablet by mouth once daily at bedtime donepezil (Aricept) 10 MG tablet Indications: Other amnesia TAKE 1 TABLET BY MOUTH EVERYDAY AT BEDTIME 30 tablet 3 07/11/2024 Active doxycycline hyclate 100 mg oral capsule (3 sources) Tetracycline-class Drug Start: 01-27-2024 doxycy vasquez [...] Date: 01/11/24 Stop Date: 01/25/24 Status: Ordered ferrous sulfate 325 mg oral tablet (2 sources) Start: 01-18-2024 take 1 tablet by mouth once daily at breakfast ferrous sulfate (IRON 325) 325 (65 Fe) MG tablet Indications: Other iron deficiency anemia Take 1 tablet by mouth daily (with breakfast) For iron deficiency anemia 90 tablet 01/18/2024 Active FLUoxetine 10 mg oral capsule (13 sources) Serotonin Reuptake Inhibitor Start: 08-15-2024 take 1 capsule by mouth once daily FLUoxetine (PROZAC) 10 MG capsule Take 1 capsule by mouth daily Wean off 30 capsule 08/15/2024 Active Start: 03-18-2022 take 1 capsule by mo uth once daily for anxiety FLUoxetine (PROZAC) 20 MG capsule Indications: Anxiety Take 1 capsule by mouth daily For anxiety and mood 90 capsule 1 03/16/2024 Active Start: 01-13-2022 take 1 capsule by mo ut in the morning FLUoxetine (PROZAC) 10 MG capsule Take 1 capsule by mouth in the morning. 90 capsule 1 01/13/2022 Active Start: 11-11-2021 take 1 capsule by mo ut once daily FLUoxetine (PROZAC) 10 MG capsule Take 1 capsule by mouth daily 30 capsule 1 11/11/2021 Active Levsin (4 sources) Start: 12-31-2023 Levsin Refills (s) 0 Start Date: 12/31/23 Status: Ordered levothyroxine sodium 0.05 mg oral tablet (9 sources) l-Thyroxi ne Start: 02-01-2024 take 1 tablet by mouth once daily levothyroxine (SYNTHROID) 50 MCG tablet Indications: Acquired hypothyroidism Take 1 tablet by mouth Daily Acquired hypothyroid 90 tablet 1 07/18/2024 Active Start: 12-31-2023 levothyroxine 50 mcg (0.05 mg) [...] Active losartan potassium 25 mg oral tablet (13 sources) Angiotensin 2 Receptor Chelsie Start: 09-22-2022 losartan (Cozaar) 25 MG tablet 04/02/2023 Active melatonin 10 mg extended release oral tablet (2 sources) Start: 10-30-2023 Melatonin ER 10 MG TBCR Take by mouth 10/30/2023 Active 24 hr metoprolol succinate 25 mg extended release oral tablet (3 sources) beta-Adrenergic Chelsie Start: 02-02-2018 take 1 tablet by mouth [...] of ritonavir twice daily for 5 days OLANZapine 2.5 mg oral tablet (3 sources) Atypical Antipsychotic Start: 11-10-2024 take 2 tablets by mouth at bedtime OLANZapine (ZyPREXA) 2.5 MG tablet Take 5 mg by mouth at bedtime 11/10/2024 Active predniSONE 20 mg oral tablet (1 source) Start: 07-17-2020 take 2 tablets by mouth once daily at mealtime, then take 1 tablet by mouth once daily predniSONE (DELTASONE) 20 MG tablet Indications: Urticaria Take 2 tabs daily by mouth with food x 5 days then 1 tab daily x 5 days For hives 15 tablet 0 07/17/2020 Active QUEtiapine 50 mg oral tablet (10 sources) Atypical Antipsychotic Start: 08-15-2024 take 2 tablets by mouth in the morning, then take 1 tablet by mouth in the evening QUEtiapine (SEROQUEL) 50 MG tablet Indications: Outbursts of explosive behavior , Moderate vascular dementia with agitation (HCC) Take 2 pills by mouth in am and 1 pill in the evening for behavioral outbursts 270 tablet 08/15/2024 Active Start: 05-16-2024 QUEtiapine (SE ROQUEL) 50 MG tablet Wean off , decrease to 1 pill 2 x daily x 2 weeks then 1 pill daily in am x 2 weeks then stop 270 tablet 05/16/2024 Active Start: 06-06-2023 take 50 mg by mouth once daily at bedtime Quetiapine Active 50 MG PO Daily at bedtime June 06, 2023 12:00am Start: 04-02-2023 take 1 tablet by lynne th at bedtime QUEtiapine (SEROquel) 25 MG tablet TAKE 1 TABLET BY MOUTH AT BEDTIME FOR DYSTHYMIA 04/02/2023 Active sildenafil 100 mg oral tablet (20 sources) Phosphodiesterase 5 Inhibitor Start: 09-19-2021 take 1 tablet by mouth once daily as needed sildenafil (VIAGRA) 100 MG tablet TAKE 1 TABLET BY MOUTH DAILY NEEDED FOR ERECTILE DYSFUNCTION 1 HOUR BEFORE SEXUAL ACTIVITY 04/15/2022 Active Start: 03-07-2020 take 75 mg by mouth once daily Sildenafil Active 75 MG PO Daily March 06, 2020 11:00pm Start: 05-15-2016 take 2.5 tablets by mouth once daily sildenafil (REVATIO) 20 MG tablet Take 2.5 tablets by mouth daily 30 tablet 5 05/15/2016 Active simvastatin 40 mg oral tablet (20 sources) HMG-CoA Reductase Inhibitor Start: 08-06-2020 take 0.5 tablet by mouth once daily simvastatin (ZOCOR) 80 MG tablet Indications: Pure hypercholesterolemia Take 0.5 tablets by mouth nightly 90 tablet 3 08/06/2020 Active Start: 03-07-2020 simvastatin (Z ocor) 40 MG tablet 03/03/2023 Active Start: 05-19-2018 take 1 tablet by lynne th once daily simvastatin (ZOCOR) 80 MG tablet Indications: Pure hypercholesterolemia Take 1 tablet by mouth nightly 90 tablet 3 05/19/2018 Active tamsulosin hydrochloride 0.4 mg oral capsule (20 sources) alpha-Adrenergic Chelsie Start: 03-07-2020 take 1 capsule by mouth once daily at bedtime tamsulosin (FLOMAX) 0.4 MG capsule Take 1 capsule by mouth daily At bedtime 90 capsule 3 10/12/2023 Active take 1 capsule by mo ut every twenty-four hours in the morning tamsulosin (Flomax) 0.4 MG 24 hr capsule Take 0.4 mg by mouth in the morning. Active thiamine 100 mg oral tablet (4 sources) Start: 08-22-2019 take 1 tablet by mouth once daily vitamin B-1 (THIAMINE) 100 MG tablet Indications: Dizziness , Mild alcohol use disorder, in controlled environment , Smooth tongue Take 1 tablet by mouth daily 14 tablet 0 08/22/2019 Active traZODone hydrochloride 50 mg oral tablet (5 sources) Serotonin Reuptake Inhibitor Start: 05-16-2024 take 1 tablet by mouth at bedtime traZODone (DESYREL) 50 MG tablet Take 1 tablet by mouth in the morning and at bedtime Behavior outbursts 60 tablet 5 07/18/2024 Active Completed/Discontinued Medications Medication Drug Class(es) Dates Sig (Normalized) Sig (Original) acetaminophen 325 mg / HYDROcodone bitartrate 5 mg oral tablet (3 sources) Opioid Agonist Start: 03-13-2020 End: 04-15-2022 take 1 tablet by mouth every four to six hours Hydrocodone-Acetam inophen ([place]) 5-325 mg tablet Discontinued 1 - 2 [...] Alcohol abuse; Translations: [Alcohol abuse, uncomplicated] Chronic Attention-deficit, conduct, and disruptive behavior disorders (2 sources) Other symptoms and signs involving appearance and behavior; Translations: [Other general symptoms] Onset: 08-15-2024 08-15-2024 Episodic Cardiac dysrhythmias (1 source) Cardiac arrhythmia, unspecified; Translations: [Cardiac arrhythmia, unspecified] Onset: 12-29-2023 Chronic Complication of device; implant or graft (1 source) Complication associated with genitourinary device; Translations: [Unspecified complication of genitourinary prosthetic device, implant and graft, initial encounter] Onset: 12-31-2023 Episodic Delirium, dementia, and amnestic and other cognitive disorders (6 sources) Behavioral and psychological symptoms of dementia; Translations: [Behavioral and psychological symptoms of dementia] Onset: 10-19-2023 10-19-2023 Chronic Diseases of mouth; excluding dental (1 source) Atrophy of tongue papillae; Translations: [Smooth tongue] Episodic Disorders of lipid metabolism (20 sources) Pure hypercholesterolemi a; Translations: [Hyperlipidemia] Onset: 11-11-2012 11-11-2012 Chronic E Codes: Fall (2 sources) Fall; Translations: [Unspecified fall, initial encounter] Episodic Essential hypertension (20 sources) Essential hypertension; Translations: [Hypertensive disorder] Onset: 11-11-2012 11-11-2012 Chronic Genitourinary symptoms and ill-defined conditions (2 sources) Urinary catheter in situ 01-27-2024 Chronic Genitourinary symptoms and ill-defined conditions (20 sources) Shivam hematuria; Translations: [Nocturia] Onset: 01-27-2024 01-05-2019 Episodic Headache; including migraine (1 source) Headache; including migraine; Translations: [Headache, unspecified] Onset: 06-06-2023 Heart valve disorders (3 sources) Nonrheumatic aortic (valve) insufficiency; Translations: [Rheumatic disorders of both mitral and aortic valves] Onset: 12-02-2023 Chronic Hyperplasia of prostate (14 sources) Benign prostatic hypertrophy with outflow obstruction; Translations: [Benign prostatic hyperplasia with lower urinary tract symptoms] Onset: 01-13-2022 Chronic Inflammatory conditions of male genital organs (4 sources) Epididymitis; Translations: [Epididymitis] Onset: 01-27-2024 Episodic Miscellaneous mental health disorders (6 sources) Male erectile disorder; Translations: [Erectile dysfunction] Onset: 01-13-2022 Chronic Mood disorders (10 sources) Moderate recurrent major depression; Translations: [Major depressive disorder, recurrent, moderate] Onset: 10-20-2022 10-20-2022 Chronic Occlusion or stenosis of precerebral arteries (19 sources) Bilateral stenosis of carotid arteries; Translations: [Occlusion and stenosis of bilateral carotid arteries] Onset: 06-24-2022 Chronic Osteoarthritis (7 sources) Arthritis 01-05-2019 Chronic Other diseases of kidney and ureters (2 sources) Urinary tract obstruction; Translations: [Other obstructive and reflux uropathy] Onset: 01-13-2022 Episodic Other gastrointestinal disorders (2 sources) Stool DNA-based colorectal cancer screening positive; Translations: [Other fecal abnormalities] 04-15-2022 Episodic Other gastrointestinal disorders (1 source) Other fecal abnormalities; Translations: [Abnormal feces] 04-15-2022 Episodic Other hereditary and degenerative nervous system conditions (4 sources) Impaired cognition; Translations: [Mild cognitive impairment, so stated] Onset: 10-19-2023 05-16-2024 Chronic Other hereditary and degenerative nervous system conditions (1 source) Mild cognitive impairment, so stated; Translations: [Mild cognitive impairment of uncertain or unknown etiology] Onset: 10-19-2023 Chronic Other male genital disorders (14 sources) Impotence 01-05-2019 Chronic Other male genital disorders (3 sources) Disorder of male genital organ; Translations: [Other specified disorders of the male genital organs] Onset: 01-11-2024 Episodic Other male genital disorders (2 sources) Hydrocele of testis; Translations: [Hydrocele, unspecified] Onset: 01-27-2024 Episodic Other nervous system disorders (1 source) Impaired cognition 11-14-2024 Episodic Residual codes; unclassified (1 source) Poor short-term memory ; Translations: [Other amnesia] Episodic Residual codes; unclassified (1 source) Pain, unspecified; Translations: [Pain, unspecified] Onset: 10-31-2023 Episodic Residual codes; unclassified (3 sources) Device in situ; Translations: [Presence of other specified devices] Onset: 01-11-2024 Episodic Residual codes; unclassified (2 sources) Amnesia; Translations: [Other amnesia] 06-08-2024 Episodic Screening and history of mental health and substance abuse codes (5 sources) Ex-smoker 01-07-2023 Episodic Spondylosis; intervertebral disc disorders; other back problems (1 source) Acute low back pain; Translations: [Acute midline low back pain without sciatica] Episodic Thyroid disorders (2 sources) Acquired hypothyroidism; Translations: [Hypothyroidism, unspecified] Onset: 12-01-2023 08-15-2024 Chronic Transient cerebral ischemia (1 source) Carotid artery syndrome (hemispheric); Translations: [Carotid artery syndrome (hemispheric)] Onset: 11-12-2023 Chronic Unclassified (2 sources) Patient encounter status; Translations: [Screening for thyroid disorder] Unclassified (5 sources) Body mass index 20-24 - normal 01-07-2023 Unclassified (1 source) Cough, unspecified; Translations: [Cough, unspecified] Onset: 06-06-2023 Unclassified (1 source) CAROTID STENOSIS RIGHT Onset: 12-29-2023 Unclassified (1 source) Vascular dementia, moderate, with agitation (HCC); Translations: [Vascular dementia, moderate, with agitation (HCC)] Onset: 08-15-2024 Unclassified (1 source) Behavioral and psychological symptoms of dementia 11-14-2024 Viral infection (1 source) Disease caused by 2019-nCoV; Translations: [COVID-19] 06-06-2023 Episodic Past or Other Problems Problem Classification Problem Date Documented Da te Episodic/Chronic Conditions associated with dizziness or vertigo (6 sources) Dizziness; Translations: [Dizziness and giddiness] Onset: 06-06-2023 Episodic Deficiency and other anemia (1 source) Other iron deficiency anemias; Translations: [Other iron deficiency anemias] Onset: 12-01-2023 Episodic Diabetes mellitus without complication (2 sources) Impaired fasting glycemia; Translations: [Impaired fasting glucose] Onset: 05-16-2024 05-16-2024 Episodic Other screening for suspected conditions (not mental disorders or infectious disease) (4 sources) Patient encounter status; Translations: [Encounter for screening for malignant neoplasm of prostate] Onset: 05-16-2024 Episodic Unclassified (2 sources) Onset: 05-16-2024 05-16-2024 Results Test Name Value Interpretation Reference Range Facility Heavy Metal Panelon 08-18-19 25 Mercury <2.5 Normal <=10.0 [facility] Comment on above: Result Comment: (NOT E) INTERPRETIVE INFORMATION: Mercury, Blood Elevated results may be due to skin or collection-related contamination, including the use of a noncertified metal-free collection/transport tube. If contamination concerns exist due to elevated levels of blood mercury, confirmation with a second specimen collected in a certified metal-free tube is recommended. Blood mercury levels predominantly reflect recent exposure and are most useful in the diagnosis of acute poisoning as blood mercury concentrations rise sharply and fall quickly over several days after ingestion. Blood concentrations in unexposed individuals rarely exceed 20 ug/L. The provided reference interval relates to inorganic mercury concentrations. Dietary and non-occupational exposure to organic mercury forms may contribute to an elevated total mercury result. Clinical presentation after toxic exposure to organic mercury may include dysarthria, ataxia and constricted vision vivas with mercury blood concentrations from 20 to 50 ug/L. This test was developed and its performance characteristics determined by [facility]. It has not been cleared or approved by the [place] Food and Drug Administration. This test was performed in a CLIA certified laboratory and is intended for clinical purposes. Performed By: [facility] [address] [place] [id number] Clinical Trial Specialist: Ted Rao MD, PhD CLIA Number: [id number] Performed By: #### T SHX, CDP, CP #### [facility] [address] [place] [address] Access Specialist: Анна Biswas MD #### B12FOL, TREP #### [facility] [address] [place] [address] Access Specialist: Arnav Barnes MD #### ISAI #### [address] [address] Access Specialist: Boogie Espinal MD Arsenic <10.0 Normal <=12.0 [facility] Comment on above: Result Comment: (NOT E) INTERPRETIVE INFORMATION: Arsenic, Blood Elevated results may be due to skin or collection-related contamination, including the use of a noncertified metal-free collection/transport tube. If contamination concerns exist due to elevated levels of blood arsenic, confirmation with a second specimen collected in a certified metal-free tube is recommended. Potentially toxic ranges for blood arsenic: Greater than or equal to 600 ug/L. Blood arsenic is for the detection of recent exposure poisoning only. Blood arsenic levels in healthy subjects vary considerably with exposure to arsenic in the diet and the environment. A 24-hour urine arsenic is useful for the detection of chronic exposure. This test was developed and its performance characteristics determined by [facility]. It has not been cleared or approved by the [place] Food and Drug Administration. This test was performed in a CLIA certified laboratory and is intended for clinical purposes. Performed By: [facility] [address] [place] [id number] Clinical Trial Specialist: Ted Rao MD, PhD CLIA Number: [id number] Performed By: #### T CHARITO JORDAN, CP #### [facility] [address] [place], [place] [id number] Access Specialist: Анна Biswas MD #### B12FOL, TREP #### [facility] [address] [place], [place] [id number] Access Specialist: Arnav Barnes MD #### ISAI #### [facility] [address] [place], [place] [id number] Access Specialist: Boogie Espinal MD Cadmium, Blood <1.0 Normal <=5.0 [facility] Comment on above: Result Comment: (NOT E) INTERPRETATION INFORMATION: Cadmium, Blood Elevated results may be due to skin or collection-related contamination, including the use of a noncertified metal-free collection/transport tube. If contamination concerns exist due to elevated levels of blood cadmium, confirmation with a second specimen collected in a certified metal-free tube is recommended. Blood cadmium levels can be used to monitor acute toxicity and in combination with cadmium urine and B-2 microglobulin is the preferred method for monitoring occupational exposure. Symptoms associated with cadmium toxicity vary based upon route of exposure and may include tubular proteinuria, fever, headache, dyspnea, chest pain, conjunctivitis, rhinitis, sore throat and cough. Ingestion of cadmium in high concentration may cause vomiting, diarrhea, salivation, cramps, and abdominal pain. This test was developed and its performance characteristics determined by [facility]. It has not been cleared or approved by the US Food and Drug Administration. This test was performed in a CLIA certified laboratory and is intended for clinical purposes. Performed By: [facility] [address] [place] [address] Clinical Trial Specialist: Ted Rao MD, PhD CLIA Number: [id number] Performed By: #### T CHARITO JORDAN CP #### [facility] [address] [place] [address] Access Specialist: Анна Biswas MD #### BRAULIO, TREP #### [facility] [address] [place] [address] Access Specialist: Arnav Barnes MD #### ISAI #### [facility] [address] [place], [place] [id number] Access Specialist: Boogie Espinal MD B12/Folate Panelon Cobalamin (Vitamin B12) [Mass/Vol] 717 pg/mL Normal 232-1245 [facility] Comment on above: Performed By: #### T CHARITO JORDAN, CP #### [facility] [address] [place], [place] [id number] Access Specialist: Анна Biswas MD #### B12FOL, TREP #### [facility] [address] [place] [address] Access Specialist: Arnav Barnes MD #### ISAI #### [facility] [address] [place], [place] [id number] Access Specialist: Boogie Espinal MD Folic Acid 12.0 ng/mL Normal 4.8-24.2 [facility] Comment on above: Performed By: #### T CHARITO JORDAN, CP #### [facility] [address] [place] [address] Access Specialist: Анна Biswas MD #### B12FOL, TREP #### [facility] [address] [place] [id number] Access Specialist: Arnav Barnes MD #### ISAI #### [facility] [address] [place], [place] [id number] Access Specialist: Boogie Espinal MD CBC with Auto Differentialon 08-15-2024 Basophils (Bld) [#/Vol] 0.03 10*3/uL [facility] Basophils/100 WBC (Bld) 1 % 0 - 2 % [facility] Eosinophils (Bld) [#/Vol] 0.05 10*3/uL [facility] Eosinophils/100 WBC (Bld) 1 % 0 - 5 % [facility] Erythrocyte distribution width (RBC) [Ratio] 13.1 % 12.1 - 15.2 % [facility] Hematocrit (Bld) [Volume fraction] 41.7 % 41.0 - 53.0 % [facility] Hemoglobin (Bld) [Mass/Vol] 14.1 g/dL 13.5 - 17.5 g/dL [facility] Immature granulocytes (Bld) [#/Vol] 0.01 10*3/uL [facility] [facility] Immature granulocytes/100 WBC (Bld) 0 % 0 - 5 % [facility] Interpretation and review of laboratory results Abnormal [facility] Lymphocytes/100 WBC (Bld) 25 % 13 - 44 % [facility] Lymphocytes/100 WBC (Bld) 1.46 % [facility] MCH (RBC) [Entitic mass] 32 pg 26.0 - 34.0 pg [facility] MCHC (RBC) [Mass/Vol] 33.8 g/dL 31.0 - 37.0 g/dL [facility] MCV (RBC) [Entitic vol] 94.8 fL 80.0 - 100.0 fL [facility] Monocytes/100 WBC (Bld) 8 % 5 - 9 % [facility] Monocytes/100 WBC (Bld) 0.46 % [facility] Neutrophils/100 WBC (Bld) 65 % 39 - 75 % [facility] Platelet mean volume (Bld) [Entitic vol] 8.9 fL 6.0 - 12.0 fL [facility] Platelets (Bld) [#/Vol] 204 10*3/uL [facility] RBC (Bld) [#/Vol] 4.4 10*6/uL Low 4.50 - 5.9 0 m/uL [facility] Segmented neutrophils/100 WBC (Bld) 3.88 % [facility] WBC other (Bld) [#/Vol] 5.9 [facility] CBC with Diffon 08-15-2024 Abs. Basophil 0.03 k/uL Normal 0.00-0.20 [facility] Comment on above: Performed By: #### T CHARITO JORDAN, CP #### [facility] [address] [place], [place] [id number] Access Specialist: Анна Biswas MD #### B12FOL, TREP #### [address] [address] Access Specialist: Arnav Barnes MD #### ISAI #### [facility] [address] [place] [address] Access Specialist: Boogie Espinal MD Abs.Imm.Granulocyte 0.01 k/uL Normal 0.00-0.30 [facility] Comment on above: Performed By: #### T CHARITO JORDAN, CP #### [facility] [address] [place], [place] [id number] Access Specialist: Анна Biswas MD #### B12FOZurdo, TREP #### [address] [address] Access Specialist: Arnav Barnes MD #### ISAI #### [facility] [address] [place] [address] Access Specialist: Boogie Espinal MD Abs.Neutrophil (Seg) 3.88 k/uL Normal 2.1-6.5 [facility] Comment on above: Performed By: #### T CHARITO JORDAN, CP #### [facility] [address] [place], [place] [id number] Access Specialist: Анна Biswas MD #### B12FOL, TREP #### [address] [address] Access Specialist: Arnav Barnes MD #### ISAI #### [facility] [address] [place] [address] Access Specialist: Boogie Espinal MD Basophils/100 WBC (Bld) 1 % Normal 0-2 [facility] Comment on above: Performed By: #### T CHARITO JORDAN, CP #### [facility] [address] [place], [place] [phone] Access Specialist: Анна Biswas MD #### B12FOL, TREP #### [address] [id number] Access Specialist: Arnav Barnes MD #### ISAI #### [facility] [address] [place], [place] [id number] Access Specialist: Boogie Espinal MD Eosinophils (Bld) [#/Vol] 0.05 10*3/uL Normal 0.00-0.40 [facility] Comment on above: Performed By: #### T CHARITO JORDAN, CP #### [facility] [address] [place], [place] [phone] Access Specialist: Анна Biswas MD #### B12FOZurdo, TREP #### [address] [id number] Access Specialist: Arnav Barnes MD #### ISAI #### [facility] [address] [place], [place] [id number] Access Specialist: Boogie Espinal MD Eosinophils/100 WBC (Bld) 1 % Normal 0-5 [facility] Comment on above: Performed By: #### T CHARITO JORDAN, CP #### [facility] [address] [place], [place] [id number] Access Specialist: Анна Biswas MD #### B12FOL, TREP #### [facility] [address] [place] [address] [id number] Access Specialist: Arnav Barnes MD #### ISAI #### [facility] [address] [place] [address] Access Specialist: Boogie Espinal MD Erythrocyte distribution width (RBC) [Ratio] 13.1 % Normal 12.1-15.2 [facility] Comment on above: Performed By: #### T CHARITO JORDAN, CP #### [facility] [address] [place], [place] [phone] Access Specialist: Анна Biswas MD #### B12FOL, TREP #### [facility] [address] [place], [place] [phone] Access Specialist: Arnav Barnes MD #### ISAI #### [facility] [address] [place], [place] [id number] Access Specialist: Boogie Espinal MD Hematocrit (Bld) [Volume fraction] 41.7 % Normal 41.0-53.0 [facility] Comment on above: Performed By: #### T CHARITO JORDAN, CP #### [facility] [address] [place], [place] [id number] Access Specialist: Анна Biswas MD #### B12FOZurdo, TREP #### [facility] [address] [place] [address] Access Specialist: Arnav Barnes MD #### ISAI #### [facility] [address] [place], [place] [id number] Access Specialist: Boogie Espinal MD Hemoglobin (Bld) [Mass/Vol] 14.1 g/dL Normal 13.5-17.5 [facility] Comment on above: Performed By: #### T CHARITO JORDAN, CP #### [facility] [address] [place], [place] [phone] Access Specialist: Анна Biswas MD #### B12FOL, TREP #### [facility] [address] [place] [address] Access Specialist: Arnav Barnes MD #### ISAI #### [facility] [address] [place], [place] [id number] Access Specialist: Boogie Espinal MD Immature granulocytes/100 WBC (Bld) 0 % Normal 0-5 [facility] Comment on above: Performed By: #### CHARITO RUIZ, CP #### [facility] [address] [place] [address] Access Specialist: Анна Biswas MD #### B12FOZurdo, TREP #### [facility] [address] [place] [address] Access Specialist: Arnav Barnes MD #### ISAI #### [facility] [address] [place] [address] Access Specialist: Boogie Espinal MD Lymphocytes (Bld) [#/Vol] 1.46 10*3/uL Normal 1.00-4.80 [facility] Comment on above: Performed By: #### CHARITO RUIZ, CP #### [facility] [address] [place] [address] Access Specialist: Анна Biswas MD #### B12FOZurdo, TREP #### [address] [address] Access Specialist: Arnav Barnes MD #### ISAI #### [facility] [address] [place] [address] Access Specialist: Boogie Espinal MD Lymphocytes/100 WBC (Bld) 25 % Normal 13-44 [facility] Comment on above: Performed By: #### CHARITO RUIZ, CP #### [facility] [address] [place] [address] Access Specialist: Анна Biswas MD #### B12FOZurdo, TREP #### [facility] [address] [place] [address] Access Specialist: Arnav Barnes MD #### ISAI #### [facility] [address] [place] [address] Access Specialist: Boogie Espinal MD MCH (RBC) [Entitic mass] 32.0 pg Normal 26.0-34.0 [facility] Comment on above: Performed By: #### CHARITO RIUZ, CP #### [facility] [address] [place], [place] [phone] Access Specialist: Анна Biswas MD #### B12GAMALIEL, TREP #### [facility] [address] [place] [address] [id number] Access Specialist: Arnav Barnes MD #### ISAI #### [facility] [address] [place], [place] [id number] Access Specialist: Boogie Espinal MD MCHC (RBC) [Mass/Vol] 33.8 g/dL Normal 31.0-37.0 [facility] Comment on above: Performed By: #### CHARITO RUIZ, CP #### [facility] [address] [place] [id number] Access Specialist: Анна Biswas MD #### B12GAMALIEL, TREP #### [facility] [address] [place] [address] [phone] Access Specialist: Arnav Barnes MD #### ISAI #### [facility] [address] [place], [place] [id number] Access Specialist: Boogie Espinal MD MCV (RBC) [Entitic vol] 94.8 fL Normal 80.0-100.0 [facility] Comment on above: Performed By: #### CHARITO RUIZ, CP #### [facility] [address] [place], [place] [phone] Access Specialist: Анна Biswas MD #### B12FOZurdo, TREP #### [facility] [address] [place] [address] Access Specialist: Arnav Barnes MD #### ISAI #### [facility] [address] [place] [address] Access Specialist: Boogie Espinal MD Monocytes (Bld) [#/Vol] 0.46 10*3/uL Normal 0.00-1.00 [facility] Comment on above: Performed By: #### T CHARITO JORDAN, CP #### [facility] [address] [place], [place] [id number] Access Specialist: Анна Biswas MD #### B12FOL, TREP #### [facility] [address] [place] [address] Access Specialist: Arnav Barnes MD #### ISAI #### [facility] [address] [place] [address] Access Specialist: Boogie Espinal MD Monocytes/100 WBC (Bld) 8 % Normal 5-9 [facility] Comment on above: Performed By: #### T CHARITO JORDAN, CP #### [facility] [address] [place] [address] Access Specialist: Анна Biswas MD #### B12FOZurdo, TREP #### [facility] [address] [place] [address] Access Specialist: Arnav Barnes MD #### ISAI #### [facility] [address] [place] [address] Access Specialist: Boogie Espinal MD Neutrophil (Seg) 65 % Normal 39-75 [facility] Comment on above: Performed By: #### T CHARITO JORDAN, CP #### [facility] [address] [place], [place] 2563290 Access Specialist: Анна Biswas MD #### B12FOL, TREP #### [facility] [address] [place] [address] Access Specialist: Arnav Barnes MD #### ISAI #### [facility] [address] [place] [address] Access Specialist: Boogie Espinal MD Platelet mean volume (Bld) [Entitic vol] 8.9 fL Normal 6.0-12.0 [facility] Comment on above: Performed By: #### T CHARITO JORDAN, CP #### [facility] [address] [place], [place] [phone] Access Specialist: Анна Biswas MD #### B12FOZurdo, TREP #### [facility] [address] [place] [address] Access Specialist: Arnav Barnes MD #### ISAI #### [facility] [address] [place] [address] Access Specialist: Boogie Espinal MD Platelets (Bld) [#/Vol] 204 10*3/uL Normal 140-450 [facility] Comment on above: Performed By: #### T CHARITO JORDAN, CP #### [facility] [address] [place] [address] Access Specialist: Анна Biswas MD #### B12FOZurdo, TREP #### [facility] [address] [place] [address] Access Specialist: Arnav Barnes MD #### ISAI #### [facility] [address] [place] [address] Access Specialist: Boogie Espinal MD RBC (Bld) [#/Vol] 4.40 10*6/uL Low 4.50-5.90 [facility] Comment on above: Performed By: #### T CHARITO JORDAN, CP #### [facility] [address] [place] [address] Access Specialist: Анна Biswas MD #### B12FOL, TREP #### [facility] [address] [place] [address] Access Specialist: Arnav Barnes MD #### ISAI #### [facility] [address] [place], [place] [id number] Access Specialist: Boogie Espinal MD WBC (Bld) [#/Vol] 5.9 10*3/uL Normal 3.5-11.0 [facility] Comment on above: Performed By: #### T CHARITO JORDAN, CP #### [facility] [address] [place], [place] [phone] Access Specialist: Анна Biswas MD #### B12FOZurdo, TREP #### [facility] [address] [place] [address] [phone] Access Specialist: Arnav Barnes MD #### ISAI #### [facility] [address] [place], [place] [id number] Access Specialist: Boogie Espinal MD Comp Metabolic Profon 2024 Albumin [Mass/Vol] 4.3 g/dL Normal 3.5-5.2 [facility] Comment on above: Performed By: #### T CHARITO JORDAN CP #### [facility] [address] [place], [place] [phone] Access Specialist: Анна Biswas MD #### B12FOZurdo, TREP #### [address] [id number] Access Specialist: Arnav Barnes MD #### ISAI #### [facility] [address] [place], [place] [id number] Access Specialist: Boogie Espinal MD Albumin/Glob Ratio 1.5 Normal 1.0-2.5 [facility] Comment on above: Performed By: #### T CHARITO JORDAN, CP #### [facility] [address] [place], [place] [id number] Access Specialist: Анна Biswas MD #### B12FOZurdo, TREP #### [facility] [address] [place] [address] Access Specialist: Arnav Barnes MD #### ISAI #### [facility] [address] [place], [place] [id number] Access Specialist: Boogie Espinal MD Alkaline Phos 49 U/L Normal 40-129 [facility] Comment on above: Performed By: #### T CHARITO JORDAN, CP #### [facility] [address] [place] [address] Access Specialist: Анна Biswas MD #### B12FOL, TREP #### [address] [address] Access Specialist: Arnav Barnes MD #### ISAI #### [facility] [address] [place] [address] Access Specialist: Boogie Espinal MD ALT [Catalytic activity/Vol] 18 U/L Normal 5-41 [facility] Comment on above: Performed By: #### T CHARITO JORDAN, CP #### [facility] [address] [place] [address] Access Specialist: Анна Biswas MD #### B12FOZurdo, TREP #### [address] [address] Access Specialist: Arnav Barnes MD #### ISAI #### [facility] [address] [place], [place] [id number] Access Specialist: Boogie Espinal MD Anion gap [Moles/Vol] 10 mmol/L Normal 9-17 [facility] Comment on above: Performed By: #### T CHARITO JORDAN, CP #### [facility] [address] [place] [address] Access Specialist: Анна Biswas MD #### B12FOZurdo, TREP #### [address] [address] Access Specialist: Arnav Barnes MD #### ISAI #### [facility] [address] [place], [place] [id number] Access Specialist: Boogie Espinal MD AST [Catalytic activity/Vol] 19 U/L Normal <40 [facility] Comment on above: Performed By: #### T CHARITO JORDAN, CP #### [facility] [address] [place] [address] Access Specialist: Анна Biswas MD #### B12FOL, TREP #### [facility] [address] [place] [address] Access Specialist: Arnav Barnes MD #### ISAI #### [facility] [address] [place], [place] [id number] Access Specialist: Boogie Espinal MD Bilirubin [Mass/Vol] 0.4 mg/dL Normal 0.3-1.2 [facility] Comment on above: Performed By: #### T CHARITO JORDAN, CP #### [facility] [address] [place] [address] Access Specialist: Анна Biswas MD #### B12FOL, TREP #### [address] [address] Access Specialist: Arnav Barnes MD #### ISAI #### [facility] [address] [place], [place] [id number] Access Specialist: Boogie Espinal MD Calcium [Mass/Vol] 9.5 mg/dL Normal 8.6-10.4 [facility] Comment on above: Performed By: #### T CHARITO JORDAN, CP #### [facility] [address] [place] [address] Access Specialist: Анна Biswas MD #### B12FOZurdo, TREP #### [facility] [address] [place] [address] Access Specialist: Arnav Barnes MD #### ISAI #### [facility] [address] [place], [place] [id number] Access Specialist: Boogie Espinal MD Chloride [Moles/Vol] 103 mmol/L Normal 98-107 [facility] Comment on above: Performed By: #### T CHARITO JORDAN, CP #### [facility] [address] [place] [address] Access Specialist: Анна Biswas MD #### B12FOL, TREP #### [facility] [address] [place] [address] Access Specialist: Arnav Barnes MD #### ISAI #### [facility] [address] [place], [place] [id number] Access Specialist: Boogie Espinal MD CO2 [Moles/Vol] 26 mmol/L Normal 20-31 [facility] Comment on above: Performed By: #### T CHARITO JORDAN, CP #### [facility] [address] [place], [place] [phone] Access Specialist: Анна Biswas MD #### B12FOL, TREP #### [address] [address] Access Specialist: Arnav Barnes MD #### ISAI #### [facility] [address] [place], [place] [id number] Access Specialist: Boogie Espinal MD Creatinine [Mass/Vol] 0.9 mg/dL Normal 0.7-1.2 [facility] Comment on above: Performed By: #### T CHARITO JORDAN, CP #### [facility] [address] [place], [place] 4438390 Access Specialist: Анна Biswas MD #### B12FOZurdo, TREP #### [facility] [place] [address] Access Specialist: Arnav Barnes MD #### ISAI #### [facility] [address] [place], [place] [id number] Access Specialist: Boogie Espinal MD GFR/1.73 sq M.predicted among non-blacks MDRD (S/P/Bld) [Vol rate/Area] 87 mL/min/{1.73_m2} Normal >60 [facility] Comment on above: Result Comment: These [...] affects renal tubular secretion. Performed By: #### T CHARITO JORDAN CP #### [facility] [address] [place] [address] Access Specialist: Анна Biswas MD #### JENNIFER RAMSEYP #### [address] [address] Access Specialist: Arnav Barnes MD #### ISAI #### [facility] [address] [place] [address] Access Specialist: Boogie Espinal MD Glucose [Mass/Vol] 113 mg/dL High 70-99 [facility] Comment on above: Performed By: #### T CHARITO JORDAN CP #### [facility] [address] [place], [place] 2422490 Access Specialist: Анна Biswas MD #### BRUALIO TREP #### [address] [address] Access Specialist: Arnav Barnes MD #### ISAI #### [facility] [address] [place], [place] [id number] Access Specialist: Boogie Espinal MD Potassium [Moles/Vol] 4.1 mmol/L Normal 3.7-5.3 [facility] Comment on above: Performed By: #### T CHARITO JORDAN, CP #### [facility] [address] [place] [address] Access Specialist: Анна Biswas MD #### B12GAMALIEL, TREP #### [facility] [address] [place] [address] Access Specialist: Arnav Barnes MD #### ISAI #### [facility] [address] [place], [place] [id number] Access Specialist: Boogie Espinal MD Protein [Mass/Vol] 7.2 g/dL Normal 6.4-8.3 [facility] Comment on above: Performed By: #### CHARITO RUIZ, CP #### [facility] [address] [place] [address] Access Specialist: Анна Biswas MD #### B12FOZurdo, TREP #### [facility] [address] [place] [address] Access Specialist: Arnav Barnes MD #### ISAI #### [facility] [address] [place], [place] [id number] Access Specialist: Boogie Espinal MD Sodium [Moles/Vol] 139 mmol/L Normal 135-144 [facility] Comment on above: Performed By: #### CHARITO RUIZ, CP #### [facility] [address] [place] [address] Access Specialist: Анна Biswas MD #### B12FOZurdo, TREP #### [facility] [address] [place] [address] Access Specialist: Arnav Barnes MD #### ISAI #### [facility] [address] [place] [address] Access Specialist: Boogie Espinal MD Urea nitrogen [Mass/Vol] 17 mg/dL Normal 8-23 [facility] Comment on above: Performed By: #### T SHX, CDP, CP #### [facility] [address] [place] [address] Access Specialist: Анна Biswas MD #### B12FOL, TREP #### [facility] [address] [place], [place] [id number] Access Specialist: Arnav Barnes MD #### ISAI #### [facility] [address] [place] [address] Access Specialist: Boogie Espinal MD Comprehensive Metabolic Pane [facility] 08-15-2024 Albumin [Mass/Vol] 4.3 g/dL 3.5 - 5.2 g/dL [facility] Albumin/Globulin [Mass ratio] 1.5 {ratio} 1.0 - 2.5 [facility] ALP [Catalytic activity/Vol] 49 U/L 40 - 129 U/L [facility] ALT [Catalytic activity/Vol] 18 U/L 5 - 41 U/L [facility] Anion gap [Moles/Vol] 10 mmol/L 9 - 17 mmol/L [facility] AST [Catalytic activity/Vol] 19 U/L NINF - 40 U/L [facility] Bilirubin [Mass/Vol] 0.4 mg/dL 0.3 - 1 .2 mg/dL [facility] Calcium [Mass/Vol] 9.5 mg/dL 8.6 - 10. 4 mg/dL [facility] Chloride [Moles/Vol] 103 mmol/L 98 - 10 7 mmol/L [facility] CO2 [Moles/Vol] 26 mmol/L 20 - 31 mmol/L [facility] Creatinine [Mass/Vol] 0.9 mg/dL 0.7 - 1.2 mg/dL [facility] Est, Glom Filt Rate 87 - PINF [facility] Comment on above: These results are not intended for use [...] that affects renal tubular secretion. Glucose [Mass/Vol] 113 mg/dL High 70 - 99 mg/dL [facility] Interpretation and review of laboratory results Abnormal [facility] Potassium [Moles/Vol] 4.1 mmol/L 3.7 - 5.3 mmol/L [facility] Protein [Mass/Vol] 7.2 g/dL 6.4 - 8.3 g/dL [facility] Sodium [Moles/Vol] 139 mmol/L 135 - 144 mmol/L [facility] Urea nitrogen [Mass/Vol] 17 mg/dL 8 - 23 mg/dL [facility] Microscopic Urinalysison - [facility] Bacteria LM Ql (Urine sed) RARE Abnormal None [facility] Epithelial cells LM.HPF (Urine sed) [#/Area] 0 TO 2 /HPF [facility] Interpretation and review of laboratory results Abnormal [facility] RBC LM.HPF (Urine sed) [#/Area] 0 TO 2 [facility] WBC LM.HPF (Urine sed) [#/Area] 2 TO 5 0 /HPF [facility] No Panel Informationon 08-15 [facility] T. Pallidum Abon 08-15-2024 T. pallidum Ab IA Ql (S) Non-Reactive NONREACTIVE [facility] Comment on above: T. pallidum antibodies are not detected. There is no serological evidence of infection with T. pallidum (early primary syphilis cannot be excluded). Retest in 2-4 weeks if syphilis is clinically suspect. T.pallidum Ab Screenon 08-15 T.pallidum Ab Screen Non-Reactive Normal NR [facility] Comment on above: Result Comment: T. pallidum antibodies are not detected. There is no serological evidence of infection with T. pallidum (early primary syphilis cannot be excluded). Retest in 2-4 weeks if syphilis is clinically suspect. Performed By: #### T CHARITO JORDAN, CP #### [facility] [address] [place] [address] Access Specialist: Анна Biswas MD #### B12FOL, TREP #### [address] [address] Access Specialist: Arnav Barnes MD #### ISAI #### [facility] [address] [place], [place] [id number] Access Specialist: Boogie Espinal MD TSH reflex to FT4on 08-16-19 25 TSH Qn 1.83 m[IU]/[facility]/reflex to FT4on 2024 Thyroid Stim. Horm. 1.83 uIU/mL Normal 0.27-4.20 [facility] Comment on above: Performed By: #### T CHARITO JORDAN, CP #### [facility] [address] [place] [address] Access Specialist: Анна Biswas MD #### B12FOZurdo, TREP #### [address] [address] Access Specialist: Arnav Barnes MD #### ISAI #### [facility] [address] [place], [place] [id number] Access Specialist: Boogie Espinal MD UA w/Reflex Cultureon 2024 Bilirubin, SemiQt,Ur Negative Normal NEG [facility] Comment on above: Performed By: #### F EBC, LIPR, FT4 #### [address] [address] Access Specialist: Arnav Barnes MD #### HH #### [facility] [address] [place], [place] [id number] Access Specialist: Анна Biswas MD Blood, Urine TRACE Abnormal NEG [facility] Comment on above: Performed By: #### F EBC, LIPR, FT4 #### [facility] [address] [place] [address] Access Specialist: Arnav Barnes MD #### HH #### [facility] [address] [place] [address] Access Specialist: Анна Biswas MD Clarity (U) Clear Normal CLEAR [facility] Comment on above: Performed By: #### F EBC, LIPR, FT4 #### [address] [address] Access Specialist: Arnav Barnes MD #### HH #### [facility] [address] [place] [address] Access Specialist: Анна Biswas MD Color (U) Yellow Normal YEL [facility] Comment on above: Performed By: #### F EBC, LIPR, FT4 #### [facility] [address] [place] [address] Access Specialist: Arnav Barnes MD #### HH #### [facility] [address] [place] [address] Access Specialist: Анна Biswas MD Comment Normal [facility] Comment on above: Performed By: #### F EBC, LIPR, FT4 #### [facility] [address] [place] [address] Access Specialist: Arnav Barnes MD #### HH #### [facility] [address] [place] [address] Access Specialist: Анна Biswas MD Glucose Ql (U) Negative Normal NEG [facility] Comment on above: Performed By: #### F EBC, LIPR, FT4 #### [address] [address] Access Specialist: Arnav Barnes MD #### HH #### [facility] [address] [place], [place] [id number] Access Specialist: Анна Biswas MD Ketones Ql (U) TRACE Abnormal NEG [facility] Comment on above: Performed By: #### F EBC, LIPR, FT4 #### [address] [address] Access Specialist: Arnav Barnes MD #### HH #### [facility] [address] [place], [place] [id number] Access Specialist: Анна Biswas MD Leukocyte esterase Test strip Ql (U) 1+ Abnormal NEG [facility] Comment on above: Performed By: #### F EBC, LIPR, FT4 #### [address] [address] Access Specialist: Arnav Barnes MD #### HH #### [facility] [address] [place], [place] [id number] Access Specialist: Анна Biswas MD Nitrite,Ur Negative Normal NEG [facility] Comment on above: Performed By: #### F EBC, LIPR, FT4 #### [address] [address] Access Specialist: Arnav Barnes MD #### HH #### [facility] [address] [place], [place] [id number] Access Specialist: Анна Biswas MD PH,Ur 5.0 Normal 5.0-8.0 [facility] Comment on above: Performed By: #### F EBC, LIPR, FT4 #### [address] [address] Access Specialist: Arnav Barnes MD #### HH #### [facility] [address] [place], [place] [id number] Access Specialist: Анна Biswas MD Protein Ql (U) TRACE Abnormal NEG [facility] Comment on above: Performed By: #### F EBGrupo, LIPR, FT4 #### [facility] [address] [place] [address] Access Specialist: Arnav Barnes MD #### HH #### [facility] [address] [place], [place] [id number] Access Specialist: Анна Biswas MD Spec. [place],Ur 1.025 Normal 1.005-1.030 [facility] Comment on above: Performed By: #### F TINY, LIPR, FT4 #### [address] [id number] Access Specialist: Arnav Barnes MD #### HH #### [facility] [address] [place], [place] [id number] Access Specialist: Анна Biswas MD Urobilinogen,Ur Normal Normal 0.0-1.0 [facility] Comment on above: Performed By: #### F TINY, LIPR, FT4 #### [address] [address] Access Specialist: Arnav Barnes MD #### HH #### [facility] [address] [place] [address] Access Specialist: Анна Biswas MD Urinalysis with Reflex to Cu ltureon 08-15-2024 Bilirubin Ql (U) Negative NEGATIVE [facility] Clarity (U) Clear Clear [facility] Color (U) Yellow Yellow [facility] Comment Bon [facility] Glucose Test strip (U) [Mass/Vol] Negative NEGATIVE mg/dL [facility] Hemoglobin Auto test strip Ql (U) TRACE Abnormal NEGATIVE [facility] Interpretation and review of laboratory results Abnormal [facility] Ketones (U) [Mass/Vol] TRACE Abnormal NEGAT KALANI mg/dL [facility] Leukocyte esterase Test strip Ql (U) 1+ Abnormal NEGATIVE [facility] Nitrite Ql (U) Negative NEGATIVE [facility] pH (U) 5 [pH] 5.0 - 8.0 [facility] Protein (U) [Mass/Vol] TRACE Abnormal NEGAT KALANI mg/dL [facility] Specific gravity (U) [Rel density] 1.025 1.005 - 1.030 [facility] Urobilinogen Qn (U) Normal 0.0 - 1. 0 EU/dL [facility] Urinalysis,Microon 5 ----- Normal [facility] Comment on above: Performed By: #### F EBC, LIPR, FT4 #### [address] [address] Access Specialist: Arnav Barnes MD #### HH #### [facility] [address] [place], [place] [id number] Access Specialist: Анна Biswas MD Bacteria RARE Abnormal NONE [facility] Comment on above: Performed By: #### F EBC, LIPR, FT4 #### [address] [address] Access Specialist: Arnav Barnes MD #### HH #### [facility] [address] [place], [place] [id number] Access Specialist: Анна Biswas MD Epithelial cells LM Ql (Urine sed) 0 TO 2 Normal [facility] Comment on above: Performed By: #### F EBC, LIPR, FT4 #### [address] [address] Access Specialist: Arnav Barnes MD #### HH #### [facility] [address] [place], [place] [id number] Access Specialist: Анна Biswas MD Urine RBC's 0 TO 2 Normal 0-2 [facility] Comment on above: Performed By: #### F EBC, LIPR, FT4 #### [facility] [address] [place], [place] [id number] Access Specialist: Arnav Barnes MD #### HH #### [facility] [address] [place], [place] [address] Access Specialist: Анна Biswas MD Urine WBC's 2 TO 5 Normal 0 [facility] Comment on above: Performed By: #### F EBC, LIPR, FT4 #### [facility] [address] [place], [place] [id number] Access Specialist: Arnav Barnes MD #### HH #### [facility] [address] [place], [place] [id number] Access Specialist: Анна Biswas MD Vitamin B12 & Folateon 08-15 Cobalamin (Vitamin B12) [Mass/Vol] 717 pg/mL 232 - 1245 pg/mL [facility] Folate [Mass/Vol] 12.0 ng/mL 4.8 - 24.2 ng/mL [facility] Office Visiton 08-09-2024 Follow-up visit [id number] Faith Penn 1945 M Date Provider Department Center 08/09/2024 Dave-MORE TRAORE SERENA Trivedi Family History Problem Relation Age of Onset Stroke Father Diabetes Father Family Status - Relation Status Age at Father Level of Service:90981 LA OFFICE/OUTPATIENT ESTABLISHED MOD MDM 30 MIN Normal [facility] Office/Clinic Noteon 08-08-2024 Urology Office/Clinic Note Urology Office/Clinic Note Chief Complaint 1 yr fu HPI Staff 79 year old male here for 6 month follow up Previous Dx: bph with luts, Epididymitis, hydrocele, impotence, valero catheter status, gross hematuria continues flomax 0.4mg qd- pts states that she does not think patient is taking flomax every day as he has a hard time remembering to take meds. No longer using sildenafil. Patient denies any gross hematuria or dysuria. Nocturia 2x.. History of Present Illness Tests reviewed: UA I have reviewed the previous health [...] HPI. Physical Exam Vitals & Measurements HR: 69(Peripheral) RR: 16 BP: 152/90 HT: 73 in HT: 185 cm WT: 84 kg WT: 185.188 lb BMI: 24.54 General Appearance: alert, no distress, well nourished, well developed female. Assessment/Plan Faith 79 year old male here for 6 month follow up. Patient is accompanied with today. 1. BPH with obstruction/lower urinary tract symptoms (N40.1: Benign prostatic hyperplasia with lower urinary tract symptoms) S/p Cysto 08/05/18. S/p REZUM 09/02/2018. PVR (cc): 01/11/24 - 43 IPSS 7 (11) UA today is negative for blood and infection. Reviewed UA. Denies any bothersome urinary sxs at this time, no urinary concerns. Patient reports to be doing well at this time. Currently taking Flomax 0.4mg, denies any bothersome SEs. Dsicussed trial of weaning off medication, but pt states he tried that and like his sxs better on med previously. Pt knows to call office with bothersome urinary sxs. Follow up 1 yr or sooner if needed. Pt understands and agrees with plan. 2. Epididymitis (N45.1: Epididymitis) seen IO 01/11/24 for a swollen testicle. PE: firm left epididymal head, firm scrotum, unable to easily palpate testicle. Pt denies pain to palpation. Suspicious for epididymo-orchitis. Tx'd w/ Doxycycline 100mg bid x 2 weeks (still taking) Scrotal US 01/12/24 [facility] - findings favor left scrotal acute epididymitis and reactive hydrocele. Large L hydrocele. PE 01/27/24: ~slight induration on the left. No abnormalities. Patient has noticed improvement. Pt feels he is back to normal . -Cont symptomatic monitoring 3. Hydrocele (N43.3: Hydrocele, unspecified) See #2. 4. Impotence (F52.21: Male erectile disorder) No longer taking the Sildenafil 100 mg PRN therapy. Denies any bothersome SEs at this time. Patient is happy with sxs at this time. 5. 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 Garcia at [facility] on 12/29/23 due to recent TIA. Pt's reports that she was told patient had a traumatic catheter insertion for his surgery so they left the catheter in place post-op. While inpatient, catheter would not drain so urology was consulted and they replaced it with a 24Fr Coude and started CBI. Cath was removed at [facility] on 01/01, pt. presented to the ER for gross hematuria and clots, CBI performed and urine cleared up upon discharge cath was removed. Pt's catheter was removed at [facility] on 01/06/24. 6. Gross hematuria (R31.0: Gross hematuria) See #5. Denies recurrence of gross hematuria. Follow-up With When Contact Information DHAVAL Ragsdale APRN, Humaira Ayon, ELIEZER, URL Additional Instructions: Follow up 1 yr or sooner if needed. Patient Education Benign Prostatic Hyperplasia Sonal, Margarette Hi, personally scribed for DHAVAL Dickinson APRN on 08/05/2024 14:59:52. . Documentation recorded by the lafredo Hi accurately reflects the services(s) I performed and decisions made by me. Authenticated by Humaira Ragsdale APRN, FNP-C on 08/08/2024 06:56:42. Problem List/Past Medical History Ongoing BMI 24.0-24.9, adult BPH with obstruction/lower urinary tract symptoms Epididymitis Valero catheter status Former smoker Gross hematuria Hydrocele Impotence Nocturia Weak urinary stream Historical Arthritis Erectile dysfunction Hyperlipidemia Hypertension Procedure/Surgical History Carotid endarterectomy (12/29/2023), Artery procedure (06/08/2020), Transurethral water vapor ablation of prostate (09/02/2018), Cystoscopy (08/05/2018), Bursa, Colonoscopy, Tonsillectomy. Medications aspirin 81 mg Oral EC Tab, 81 mg= 1 tab(s), Oral, Da (more content not included)... Normal [facility] Comment on above: Result Comment: Elec tronically Signed By: DHAVAL Ragsdale APRN, Aurora X\.br\Date and Time Signed: 08/08/24 06:57 EST\.br\Electronically Co-Signed By: Margarette Hi\.br\Date and Time Co-Signed: 08/05/24 15:00 EST Ambulatory Visit Summaryon 0 08-05-2024 Ambulatory Visit Summary Ambulatory Visit Summary FAITH PENN :1945 Visit Date:08/05/2024 Ambulatory Visit Instructions Your Diagnosis BPH with obstruction/lower urinary tract symptoms Epididymitis Hydrocele Impotence Valero catheter status Gross hematuria Your Care Team Attending Physician - DHAVAL Ragsdale APRN, Aurora X Primary Care Physician - CANDACE GIRON CNP This Is Your Medications List Contact prescribing physician if questions or concerns aspirin (aspirin 81 mg Oral EC Tab) donepezil (donepezil 5 mg Tab) doxycycline (doxycycline hyclate 100 mg Cap) fluoxetine (FLUoxetine 20 mg Cap) hyoscyamine (Levsin) levothyroxine (levothyroxine 50 mcg (0.05 mg) Tab) losartan (losartan 25 mg Tab) sildenafil (sildenafil 100 mg Tab) simvastatin (simvastatin 40 mg Tab) tamsulosin (Flomax 0.4 mg Cap) Procedures Performed Carotid endarterectomy (12/29/2023), Artery procedure (06/08/2020), Transurethral water vapor ablation of prostate (09/02/2018), Cystoscopy (08/05/2018), Bursa, Colonoscopy, Tonsillectomy. Discharge Vitals Heart Rate (Peripheral) 69 Respiratory Rate 16 Blood Pressure 152/90 Height 185 cm Height 73 in Weight 84 kg Weight 185.188 lb BMI 24.54 What to do next Scheduled Follow-Up Appointments Thursday2025 9:00 AM EST With: Jn BUENROSTRO, AISHA-Grupo, Humaira X Where: [facility] [address], [address] [place] [address]- You Need to Schedule the Following Appointments Follow Up with Jn BUENROSTRO, DHAVAL, Humaira X, FAM, URL When: Where: Medications What How Much When Instructions Unchanged aspirin (aspirin 81 mg Oral EC Tab) 1 Tablets By Mouth Every day Contact prescribing physician if questions or concerns Unchanged donepezil (donepezil 5 mg Tab) TAKE 1 TABLET BY MOUTH EVERY DAY AT BEDTIME FOR 30 DAYS Contact prescribing physician if questions or concerns Unchanged doxycycline (doxycycline hyclate 100 mg Cap) Contact prescribing physician if questions [...] adult BPH with obstruction/lower urinary tract symptoms Epididymitis Valero catheter status Former smoker Gross hematuria Hydrocele Impotence Nocturia Weak urinary stream Historical - [...] or symptoms? Symptoms of this condition include: ??? Getting up often during the night to urinate. ??? Needing to urinate frequently during the day. (more content not included)... Normal [facility] Comp Metabolic Profon 2023 Albumin [Mass/Vol] 4.3 g/dL Normal 3.5-5.2 [facility] Comment on above: Performed By: #### F EBTRICIA LombardoR, FT4 #### [facility] [address] [place], [place] [id number] Access Specialist: Arnav Barnes MD #### HH #### [facility] [address] [place] [address] Access Specialist: Анна Biswas MD Alkaline Phos 53 U/L Normal 40-129 [facility] Comment on above: Performed By: #### F EBTRICIA LombardoR, FT4 #### [facility] [address] [place], [place] [address] Access Specialist: Arnav Barnes MD #### HH #### [facility] [address] [place], [place] [id number] Access Specialist: Анна Biswas MD ALT [Catalytic activity/Vol] 19 U/L Normal 5-41 [facility] Comment on above: Performed By: #### F EBC, LIPR, FT4 #### [facility] [address] [place], [place] [id number] Access Specialist: Arnav Barnes MD #### HH #### [facility] [address] [place], [place] 1549690 Access Specialist: Анна Biswas MD Anion gap [Moles/Vol] 14 mmol/L Normal 9-17 [facility] Comment on above: Performed By: #### F EBC, LIPR, FT4 #### [address] [id number] Access Specialist: Arnav Barnes MD #### HH #### [facility] [address] [place], [place] [id number] Access Specialist: Анна Biswas MD AST [Catalytic activity/Vol] 17 U/L Normal <40 [facility] Comment on above: Performed By: #### F EBC, LIPR, FT4 #### [address] [address] Access Specialist: Arnav Barnes MD #### HH #### [facility] [address] [place], [place] [id number] Access Specialist: Анна Biswas MD Bilirubin [Mass/Vol] 0.4 mg/dL Normal 0.3-1.2 [facility] Comment on above: Performed By: #### F EBC, LIPR, FT4 #### [address] [address] Access Specialist: Arnav Barnes MD #### HH #### [facility] [address] [place] [address] Access Specialist: Анна Biswas MD BUN/CRE Ratio 21 High 9-20 [facility] Comment on above: Performed By: #### F EBC, LIPR, FT4 #### [place] [address] [place] [address] Access Specialist: Arnav Barnes MD #### HH #### [facility] [address] [place] [address] Access Specialist: Анна Biswas MD Calcium [Mass/Vol] 9.6 mg/dL Normal 8.6-10.4 [facility] Comment on above: Performed By: #### F EBC, LIPR, FT4 #### [address] [address] Access Specialist: Arnav Barnes MD #### HH #### [facility] [address] [place] [address] Access Specialist: Анна Biswas MD Chloride [Moles/Vol] 102 mmol/L Normal 98-107 [facility] Comment on above: Performed By: #### F EBC, LIPR, FT4 #### [address] [address] Access Specialist: Arnav Barnes MD #### HH #### [facility] [address] [place] [address] Access Specialist: Анна Biswas MD CO2 [Moles/Vol] 26 mmol/L Normal 20-31 [facility] Comment on above: Performed By: #### F EBC, LIPR, FT4 #### [address] [address] Access Specialist: Arnav Barnes MD #### HH #### [facility] [address] [place], [place] [id number] Access Specialist: Анна Biswas MD Creatinine [Mass/Vol] 1.0 mg/dL Normal 0.7-1.2 [facility] Comment on above: Performed By: #### F MARGA FRANKS, FT4 #### [address] [id number] Access Specialist: Arnav Barnes MD #### HH #### [facility] [address] [facility] [place], [place] [address] Access Specialist: Анна Biswas MD GFR/1.73 sq M.predicted among non-blacks MDRD (S/P/Bld) [Vol rate/Area] 77 mL/min/{1.73_m2} Normal >60 [facility] Comment on above: Result Comment: These [...] affects renal tubular secretion. Performed By: #### F MARGA FRANKS, FT4 #### [address] [id number] Access Specialist: Arnav Barnes MD #### HH #### [facility] [address] [place], [place] [id number] Access Specialist: Анна Biswas MD Glucose [Mass/Vol] 116 mg/dL High 70-99 [facility] Comment on above: Performed By: #### F MARGA FRANKS, FT4 #### [address] [id number] Access Specialist: Arnav Barnes MD #### HH #### [facility] [address] [facility] [place], [place] [address] Access Specialist: Анна Biswas MD Potassium [Moles/Vol] 4.0 mmol/L Normal 3.7-5.3 [facility] Comment on above: Performed By: #### F EBC, LIPR, FT4 #### [facility] [address] [place], [place] [phone] Access Specialist: Arnav Barnes MD #### HH #### [facility] [address] [place], [place] [id number] Access Specialist: Анна Biswas MD Protein [Mass/Vol] 7.4 g/dL Normal 6.4-8.3 [facility] Comment on above: Performed By: #### F EBC, LIPR, FT4 #### [address] [id number] Access Specialist: Arnav Barnes MD #### HH #### [facility] [address] [place], [place] [id number] Access Specialist: Анна Biswas MD Sodium [Moles/Vol] 142 mmol/L Normal 135-144 [facility] Comment on above: Performed By: #### F EBGrupo LIPR, FT4 #### [address] [address] Access Specialist: Arnav Barnes MD #### HH #### [facility] [address] [place], [place] [id number] Access Specialist: Анна Biswas MD Urea nitrogen [Mass/Vol] 21 mg/dL Normal 8-23 [facility] Comment on above: Performed By: #### F EBC, LIPR, FT4 #### [facility] [address] [place] [address] Access Specialist: Arnav Barnes MD #### HH #### [facility] [address] [place], [place] [id number] Access Specialist: Анна Biswas MD Comprehensive Metabolic Pane [facility] 05-16-2024 Albumin [Mass/Vol] 4.3 g/dL 3.5 - 5.2 g/dL [facility] ALP [Catalytic activity/Vol] 53 U/L 40 - 129 U/L [facility] ALT [Catalytic activity/Vol] 19 U/L 5 - 41 U/L [facility] Anion gap [Moles/Vol] 14 mmol/L 9 - 17 mmol/L [facility] AST [Catalytic activity/Vol] 17 U/L NINF - 40 U/L [facility] Bilirubin [Mass/Vol] 0.4 mg/dL 0.3 - 1 .2 mg/dL [facility] Calcium [Mass/Vol] 9.6 mg/dL 8.6 - 10. 4 mg/dL [facility] Chloride [Moles/Vol] 102 mmol/L 98 - 10 7 mmol/L [facility] CO2 [Moles/Vol] 26 mmol/L 20 - 31 mmol/L [facility] Creatinine [Mass/Vol] 1.0 mg/dL 0.7 - 1.2 mg/dL [facility] Est, Glom Filt Rate 77 - PINF [facility] Comment on above: These results are not intended for use [...] that affects renal tubular secretion. Glucose [Mass/Vol] 116 mg/dL High 70 - 99 mg/dL [facility] Interpretation and review of laboratory results Abnormal [facility] Potassium [Moles/Vol] 4.0 mmol/L 3.7 - 5.3 mmol/L [facility] Protein [Mass/Vol] 7.4 g/dL 6.4 - 8.3 g/dL [facility] Sodium [Moles/Vol] 142 mmol/L 135 - 144 mmol/L [facility] Urea nitrogen [Mass/Vol] 21 mg/dL 8 - 23 mg/dL [facility] Urea nitrogen/Creatinine [Mass ratio] 21 mg/mg High 9 - 20 [facility] Lipid Panelon 05-16-2024 Cholesterol [Mass/Vol] 155 mg/dL 0 - 199 mg/dL [facility] Comment on above: Cholesterol Guidelines: <200 Desirable 200-240 Borderline >240 Undesirable Cholesterol in HDL [Mass/Vol] 54 mg/dL 40 - PINF mg/dL [facility] Comment on above: HDL Guidelines: <40 Undesirable 40-59 Borderline >59 Desirable Cholesterol in LDL [Mass/Vol] 90 mg/dL 0 - 100 mg/dL [facility] Comment on above: LDL Guidelines: <100 Desirable 100-129 Near to/above Desirable 130-159 Borderline >159 Undesirable Direct (measured) LDL and calculated LDL are not interchangeable tests. Cholesterol in VLDL [Mass/Vol] 11 mg/dL 1 - 30 mg/dL [facility] Cholesterol.total/Chol esterol in HDL [Mass ratio] 2.9 {ratio} [facility] Triglyceride [Mass/Vol] 56 mg/dL NINF - 150 mg/dL [facility] Comment on above: Triglyceride Guidelines: <150 Desirable 150-199 Borderline 200-499 High >499 Very high Based on AHA Guidelines for fasting triglyceride, March 2012. [facility] Lipid Profileon 05-16-2024 Cholesterol [Mass/Vol] 155 mg/dL Normal 0-199 [facility] Comment on above: Result Comment: Cholesterol Guidelines: <200 Desirable 200-240 Borderline >240 Undesirable Performed By: #### F EBC, LIPR, FT4 #### [facility] [address] [place] [address] Access Specialist: Arnav Barnes MD #### HH #### [facility] [address] [place] [address] Access Specialist: Анна Biswas MD Cholesterol in HDL [Mass/Vol] 54 mg/dL Normal >40 [facility] Comment on above: Result Comment: HDL Guidelines: <40 Undesirable 40-59 Borderline >59 Desirable Performed By: #### F EBC, LIPR, FT4 #### [facility] [address] [place] [address] Access Specialist: Arnav Barnes MD #### HH #### [facility] [address] [place] [address] Access Specialist: Анна Biswas MD Cholesterol in LDL [Mass/Vol] 90 mg/dL Normal 0-100 [facility] Comment on above: Result Comment: LDL Guidelines: <100 Desirable 100-129 Near to/above Desirable 130-159 Borderline >159 Undesirable Direct (measured) LDL and calculated LDL are not interchangeable tests. Performed By: #### F EBC, LIPR, FT4 #### [address] [place] [address] Access Specialist: Arnav Barnes MD #### HH #### [facility] [address] [place], [place] [address] Access Specialist: Анна Biswas MD Cholesterol in VLDL [Mass/Vol] 11 mg/dL Normal 1-30 [facility] Comment on above: Performed By: #### F EBC, LIPR, FT4 #### [address] [address] Access Specialist: Arnav Barnes MD #### HH #### [facility] [address] [place] [address] Access Specialist: Анна Biswas MD Cholesterol.total/Chol esterol in HDL [Mass ratio] 2.9 {ratio} Normal [facility] Comment on above: Performed By: #### F EBC, LIPR, FT4 #### [address] [place] [address] Access Specialist: Arnav Barnes MD #### HH #### [facility] [address] [place], [place] [id number] Access Specialist: Анна Biswas MD Triglyceride [Mass/Vol] 56 mg/dL Normal <150 [facility] Comment on above: Result Comment: Triglyceride Guidelines: <150 Desirable 150-199 Borderline 200-499 High >499 Very high Based on AHA Guidelines for fasting triglyceride, March 2012. Performed By: #### F EBGrupo LIPR, FT4 #### [facility] [address] [place], [place] [id number] Access Specialist: Arnav Barnes MD #### HH #### [facility] [address] [place] [address] Access Specialist: Анна Biswas MD PSA Screeningon 05-16-2024 Prostate specific Ag [Mass/Vol] 3.40 ng/mL 0.00 - 4.00 ng/mL [facility] Comment on above: The Nataliya ECLIA as say is used. Results obtained with different assay methods cannot be used interchangeably. [facility] PSA, Screeningon 05-16-2024 Prostatic Spec. Ag 3.40 ng/mL Normal 0.00-4.00 [facility] Comment on above: Result Comment: The Nataliya ECLIA assay is used. Results obtained with different assay methods cannot be used interchangeably. Performed By: #### F EBGrupo LIPR, FT4 #### [facility] [address] [place], [place] [id number] Access Specialist: Arnav Barnes MD #### HH #### [facility] [address] [place] [address] Access Specialist: Анна Biswas MD Urology Office/Clinic Noteon 01-27-2024 Urology Office/Clinic Note [...] R carotid endarterectomy with Dr. Garcia at [facility] on 12/29/23 due to recent TIA. Pt's reports that she was told patient had a traumatic catheter insertion for his surgery so they left the catheter in place post-op. While inpatient, catheter would not drain so urology was consulted and they replaced it with a 24Fr Coude and started CBI. Cath was removed at [facility] on 01/01, pt. presented to the [...] with voice recognition artificial intelligence software, specifically [employer], [employer] and or [employer]. Substitutions may have occurred due to the [...] R carotid endarterectomy with Dr. Garcia at [facility] on 12/29/23 due to recent TIA. Pt's reports that she was told patient had a traumatic catheter insertion for his surgery so they left the catheter in place post-op. While inpatient, catheter would not drain so urology was consulted and they replaced it with a 24Fr Coude and started CBI. Cath was removed at [facility] on 01/01, pt. presented to the ER for gross hematuria and clots, CBI performed and urine cleared up upon discharge cath was removed. Pt's catheter was removed at [facility] on 01/06/24. 6. Gross hematuria (R31.0: Gross hematuria) See #5. Denies recurrence of gross hematuria. Overall the patient is here with his today. He had a rough postoperative course after his right carotid endarterectomy. Apparently he had a (more content not included)... Normal [facility] Comment on above: Result Comment: [...] Appointments Thursday 10:30 AM EDT With: Chintan GRACIA MD Where: [facility] [address], [address] [place] [address]- You Need to Schedule the Following Appointments Follow Up with DHAVAL Ragsdale APRN, Humaira Ayon, ELIEZER, MOOK When: Comments: Pt to keep follow up [...] activity un (more content not included)... Normal [facility] Urology Office/Clinic Noteon 01-11-2024 Urology [...] specified devices) Pt's catheter was removed at [facility] on 01/06/24 s/p endarterectomy when valero [...] Patient Education Scrotal Swelling Benign Prostatic Hyperplasia Sonal, Tree Foley, personally scribed for DHAVAL Dickinson [...] mg Tab (more content not included)... 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 Your Care Team Attending Physician - Chloe PUENTES, Makayla Stokes Primary Care Physician - CANDACE GIRON CNP [...] AM EDT With: Where: [facility] [address], [address] [place] [address]- Thursday 10:30 AM EDT With: Chintan GRACIA MD Where: [facility] [address], [address] [place] [address]- You Need to Schedule the Following Appointments Follow Up with Chintan GRACIA MD, URL When: Comments: Appointment has already been scheduled Where: [address] [address]- Medications What How Much When Instructions Unchanged [...] than 5 (more content not included)... Normal [facility] Urology Office/Clinic Noteon 12-31-2023 Urology Office/Clinic [...] R carotid endarterectomy with Dr. Garcia at [facility] on 12/29/23 due to recent TIA. [...] unable to urinate again to go to [facility] ER as patient will likely need irrigation/CBI again. Pt is on Plavix which was started 6 weeks prior to surgery. I advised pt to hold Plavix for today and for pt's to call Dr. Garcia's office and advise them of the situation and get their recommendations regarding restarting Plavix. Pt was also given Levsin Q4H for bladder spasms per [facility]. Pt has taken 3 doses of [...] E&M of Est. Patient Low 20-29 Min 99971 Insertion of temp indwelling bladder cath (valero) simple 66959 2. BPH with obstruction/lower urinary tract symptoms [...] E&M of Est. Patient Low 20-29 Min 33142 Insertion of temp indwelling bladder cath (valero) simple 54823 Follow-up With When Contact Information KATHY HILL, Chintan Mo, URL [address] [address]- Additional Instruction (more content not included)... Normal [facility] Comment on above: Result Comment: Elec tronically Signed By: Chloe PUENTES, Makayla Stokes\.br\Date and Time Signed: 12/31/23 11:10 EDT BASIC METABOLIC PANLon 12-29 Anion gap [Moles/Vol] 8 mmol/L Normal 5-15 [facility] Comment on above: Performed By: #### C BCA, PINR, 79963-7, BMP #### [facility] ([id number]) [address], [address] [place] [address] Calcium [Mass/Vol] 8.3 mg/dL Low 8.5-10.5 [facility] Comment on above: Performed By: #### C BCA, PINR, 09188-8, BMP #### [facility] ([id number]) [address], [address] [place] [address] Chloride [Moles/Vol] 110 mmol/L High 98-109 [facility] Comment on above: Performed By: #### C SHIN PINR, 89931-2, BMP #### [facility] ([id number]) [address], [address] [place] [address] CO2 [Moles/Vol] 22 mmol/L Normal 22-32 [facility] Comment on above: Performed By: #### C SHIN PINR, 19522-3, BMP #### [facility] ([id number]) [address] [address] [place] [address] Creatinine [Mass/Vol] 0.76 mg/dL Normal 0.60-1.30 [facility] Comment on above: Result Comment: METH OD TRACEABLE TO IDMS STANDARD Performed By: #### C SHIN PINR, 62977-5, BMP #### [facility] ([id number]) [address], [address] [place] [address] eGFR (CKD-EPI) NON-RACE DEPENDENT >90 Normal >59 [facility] Comment on above: Result Comment: Reported eGFR is based on the CKD-EPI 2020 equation that does not use a race coefficient. Performed By: #### C SHIN PINR, 59515-6, BMP #### [facility] ([id number]) [address], [address] [place] [address] Glucose [Mass/Vol] 109 mg/dL High 65-99 [facility] Comment on above: Performed By: #### C SHIN PINR, 67200-8, BMP #### [facility] ([id number]) [address], [address] [place] [address] Potassium [Moles/Vol] 4.1 mmol/L Normal 3.5-5.0 [facility] Comment on above: Performed By: #### C BCA, PINR, 14407-6, BMP #### [facility] ([id number]) [address], [address] [place] [address] Sodium [Moles/Vol] 140 mmol/L Normal 134-146 [facility] Comment on above: Performed By: #### C BCA, PINR, 19518-8, BMP #### [facility] ([id number]) [address], [address] [place] [address] Urea nitrogen [Mass/Vol] 15 mg/dL Normal 5-27 [facility] Comment on above: Performed By: #### C SHIN, PINR, 19060-7, BMP #### [facility] ([id number]) [address], [address] [place] [address] COMPLETE BLOOD COUNTon 12-29 Erythrocyte distribution width (RBC) [Ratio] 13.6 % Normal 11.5-15.0 [facility] Comment on above: Performed By: #### C BCA, PINR, 12136-9, BMP #### [facility] ([id number]) [address], [address] [place] [address] Hematocrit (Bld) [Volume fraction] 32.3 % Low 39-49 [facility] Comment on above: Performed By: #### C BCA, PINR, 09792-8, BMP #### [facility] ([id number]) [address], [address] [place] [address] Hemoglobin (Bld) [Mass/Vol] 11.0 g/dL Low 13.0-17.0 [facility] Comment on above: Performed By: #### C BCA, PINR, 91044-9, BMP #### [facility] ([id number]) [address], [address] [place] [address] MCH (RBC) [Entitic mass] 32.7 pg Normal 27-34 [facility] Comment on above: Performed By: #### C BCA, PINR, 95906-2, BMP #### [facility] ([id number]) [address], [address] [place] [address] MCHC (RBC) [Mass/Vol] 34.1 g/dL Normal 32-36 [facility] Comment on above: Performed By: #### C SHIN, PINR, 31898-4, BMP #### [facility] ([id number]) [address], [address] [place] [address] MCV (RBC) [Entitic vol] 96 fL Normal 80-100 [facility] Comment on above: Performed By: #### C SHIN PINR, 36029-4, BMP #### [facility] ([id number]) [address], [address] [place] [address] Platelet mean volume (Bld) [Entitic vol] 7.9 fL Normal 7-12 [facility] Comment on above: Performed By: #### C SHIN, PINR, 37033-9, BMP #### [facility] ([id number]) [address], [address] [place] [address] Platelets (Bld) [#/Vol] 192 10*3/uL Normal 150-450 [facility] Comment on above: Performed By: #### C SHIN PINR, 57767-6, BMP #### [facility] ([id number]) [address], [address] [place] [address] RBC COUNT 3.37 X10E12/L Low 4.10-5.70 [facility] Comment on above: Performed By: #### [employer] MELISSA, PINR, 38052-6, BMP #### [facility] ([id number]) [address], [address] [place] [address] WBC (Bld) [#/Vol] 8.6 10*3/uL Normal 4.0-11.0 [facility] Comment on above: Performed By: #### [employer] MELISSA, PINR, 85400-9, BMP #### [facility] ([id number]) [address], [address] [place] [address] TSH WITH REFLEXon 12-30-2023 TSH 1.69 uIU/mL Normal 0.49-4.67 [facility] Comment on above: Performed By: #### C BCA, PINR, 65376-4, BMP #### [facility] ([id number]) [address], [address] [place] [address] BASIC METABOLIC PANLon 12-28 Anion gap [Moles/Vol] 9 mmol/L Normal 5-15 [facility] Comment on above: Performed By: #### B JUDE, #### [facility] ([id number]) [address], [address] [place] [address] Calcium [Mass/Vol] 8.2 mg/dL Low 8.5-10.5 [facility] Comment on above: Performed By: #### Kelly ROQUE, #### [facility] ([id number]) [address], [address] [place] [address] Chloride [Moles/Vol] 109 mmol/L Normal 98-109 [facility] Comment on above: Performed By: #### Kelly ROQUE, #### [facility] ([id number]) [address], [address] [place] [address] CO2 [Moles/Vol] 22 mmol/L Normal 22-32 [facility] Comment on above: Performed By: #### Kelly ROQUE, #### [facility] ([id number]) [address], [address] [place] [address] Creatinine [Mass/Vol] 0.82 mg/dL Normal 0.60-1.30 [facility] Comment on above: Result Comment: METH OD TRACEABLE TO IDMS STANDARD Performed By: #### Kelly ROQUE, #### [facility] ([id number]) [address], [address] [place] [address] GFR/1.73 sq M.predicted among non-blacks MDRD (S/P/Bld) [Vol rate/Area] 90 mL/min/{1.73_m2} Normal >59 [facility] Comment on above: Result Comment: Reported eGFR is based on the CKD-EPI 2020 equation that does not use a race coefficient. Performed By: #### B JUDE, #### [facility] ([id number]) [address], [address] [place] [address] Glucose [Mass/Vol] 131 mg/dL High 65-99 [facility] Comment on above: Performed By: #### B JUDE, #### [facility] ([id number]) [address], [address] [place] [address] Potassium [Moles/Vol] 3.8 mmol/L Normal 3.5-5.0 [facility] Comment on above: Performed By: #### B JUDE, #### [facility] ([id number]) [address], [address] [place] [address] Sodium [Moles/Vol] 140 mmol/L Normal 134-146 [facility] Comment on above: Performed By: #### Kelly ROQUE, #### [facility] ([id number]) [address], [address] [place] [address] Urea nitrogen [Mass/Vol] 18 mg/dL Normal 5-27 [facility] Comment on above: Performed By: #### B JUDE, #### [facility] ([id number]) [address], [address] [place] [address] Anion gap [Moles/Vol] 8 mmol/L Normal 5-15 [facility] Comment on above: Performed By: #### C JAMES MELISSAR, 65626-1, BMP #### [facility] ([id number]) [address], [address] [place] [address] Calcium [Mass/Vol] 9.2 mg/dL Normal 8.5-10.5 [facility] Comment on above: Performed By: #### C BCA, PINR, 30311-4, BMP #### [facility] ([id number]) [address], [address] [place] [address] Chloride [Moles/Vol] 108 mmol/L Normal 98-109 [facility] Comment on above: Performed By: #### C BCA, PINR, 84630-4, BMP #### [facility] ([id number]) [address], [address] [place] [address] CO2 [Moles/Vol] 25 mmol/L Normal 22-32 [facility] Comment on above: Performed By: #### C BCA, PINR, 07574-2, BMP #### [facility] ([id number]) [address], [address] [place] [address] Creatinine [Mass/Vol] 0.93 mg/dL Normal 0.60-1.30 [facility] Comment on above: Result Comment: METH OD TRACEABLE TO IDMS STANDARD Performed By: #### C BCA, PINR, 09968-5, BMP #### [facility] ([id number]) [address], [address] [place] [address] GFR/1.73 sq M.predicted among non-blacks MDRD (S/P/Bld) [Vol rate/Area] 84 mL/min/{1.73_m2} Normal >59 [facility] Comment on above: Result Comment: Reported eGFR is based on the CKD-EPI 2020 equation that does not use a race coefficient. Performed By: #### C BCA, PINR, 46961-5, BMP #### [facility] ([id number]) [address], [address] [place] [address] Glucose [Mass/Vol] 107 mg/dL High 65-99 [facility] Comment on above: Performed By: #### C SHIN PINR, 16666-0, BMP #### [facility] ([id number]) [address], [address] [place] [address] Potassium [Moles/Vol] 3.9 mmol/L Normal 3.5-5.0 [facility] Comment on above: Performed By: #### C SHIN PINR, 67229-7, BMP #### [facility] ([id number]) [address], [address] [place] [address] Sodium [Moles/Vol] 141 mmol/L Normal 134-146 [facility] Comment on above: Performed By: #### C SHIN PINR, 68820-6, BMP #### [facility] ([id number]) [address], [address] [place] [address] Urea nitrogen [Mass/Vol] 19 mg/dL Normal 5-27 [facility] Comment on above: Performed By: #### C SHIN PINR, 42177-9, BMP #### [facility] ([id number]) [address], [address] [place] [address] CBC AND AUTO DIFFon -23-20 24 ABSOLUTE BASOPHIL 0.0 X10E9/L Normal 0.0-0.2 [facility] Comment on above: Performed By: #### [employer] BCA #### [facility] ([id number]) [address], [address] [place] [address] ABSOLUTE NEUTROPHIL 6.6 X10E9/L Normal 1.5-6.6 [facility] Comment on above: Performed By: #### C BCA #### [facility] ([id number]) [address], [address] [place] [address] Basophils/100 WBC (Bld) 0.3 % Normal [facility] Comment on above: Performed By: #### C BCA #### [facility] ([id number]) [address], [address] [place] [address] Eosinophils (Bld) [#/Vol] 0.0 10*3/uL Normal 0.0-0.4 [facility] Comment on above: Performed By: #### C BCA #### [facility] ([id number]) [address], [address] [place] [address] Eosinophils/100 WBC (Bld) 0.4 % Normal [facility] Comment on above: Performed By: #### C BCA #### [facility] ([id number]) [address], [address] [place] [address] Erythrocyte distribution width (RBC) [Ratio] 13.3 % Normal 11.5-15.0 [facility] Comment on above: Performed By: #### C BCA #### [facility] ([id number]) [address], [address] [place] [address] Hematocrit (Bld) [Volume fraction] 32.8 % Low 39-49 [facility] Comment on above: Performed By: #### C BCA #### [facility] ([id number]) [address], [address] [place] [address] Hemoglobin (Bld) [Mass/Vol] 11.1 g/dL Low 13.0-17.0 [facility] Comment on above: Performed By: #### C BCA #### [facility] ([id number]) [address], [address] [place] [address] Lymphocytes (Bld) [#/Vol] 0.8 10*3/uL Low 1.0-3.5 [facility] Comment on above: Performed By: #### C BCA #### [facility] ([id number]) [address], [address] [place] [address] Lymphocytes/100 WBC (Bld) 10.4 % Normal [facility] Comment on above: Performed By: #### C BCA #### [facility] ([id number]) [address], [address] [place] [address] MCH (RBC) [Entitic mass] 32.3 pg Normal 27-34 [facility] Comment on above: Performed By: #### C BCA #### [facility] ([id number]) [address], [address] [place] [address] MCHC (RBC) [Mass/Vol] 33.8 g/dL Normal 32-36 [facility] Comment on above: Performed By: #### C BCA #### [facility] ([id number]) [address], [address] [place] [address] MCV (RBC) [Entitic vol] 95 fL Normal 80-100 [facility] Comment on above: Performed By: #### C BCA #### [facility] ([id number]) [address], [address] [place] [address] Monocytes (Bld) [#/Vol] 0.3 10*3/uL Normal 0-0.9 [facility] Comment on above: Performed By: #### C BCA #### [facility] ([id number]) [address], [address] [place] [address] Monocytes/100 WBC (Bld) 3.8 % Normal [facility] Comment on above: Performed By: #### C BCA #### [facility] ([id number]) [address], [address] [place] [address] Neutrophils/100 WBC (Bld) 85.1 % Normal [facility] Comment on above: Performed By: #### C BCA #### [facility] ([id number]) [address], [address] [place] [address] Platelet mean volume (Bld) [Entitic vol] 7.6 fL Normal 7-12 [facility] Comment on above: Performed By: #### C BCA #### [facility] ([id number]) [address] [place] [address] Platelets (Bld) [#/Vol] 170 10*3/uL Normal 150-450 [facility] Comment on above: Performed By: #### C BCA #### [facility] ([id number]) [address], [address] [place] [address] RBC COUNT 3.44 X10E12/L Low 4.10-5.70 [facility] Comment on above: Performed By: #### C BCA #### [facility] ([id number]) [address], [address] [place] [address] WBC (Bld) [#/Vol] 7.7 10*3/uL Normal 4.0-11.0 [facility] Comment on above: Performed By: #### [employer] BCA #### [facility] ([id number]) [address], [address] [place] [address] ABSOLUTE BASOPHIL 0.0 X10E9/L Normal 0.0-0.2 [facility] Comment on above: Performed By: #### C BRANDON MELISSA, 45027-0, BMP #### [facility] ([id number]) [address], [address] [place] [address] ABSOLUTE NEUTROPHIL 2.6 X10E9/L Normal 1.5-6.6 [facility] Comment on above: Performed By: #### C BRANDON MELISSA, 04376-2, BMP #### [facility] ([id number]) [address], [address] [place] [address] Basophils/100 WBC (Bld) 0.6 % Normal [facility] Comment on above: Performed By: #### C BRANDON MELISSA, 46311-7, BMP #### [facility] ([id number]) [address] [address] [place] [address] Eosinophils (Bld) [#/Vol] 0.0 10*3/uL Normal 0.0-0.4 [facility] Comment on above: Performed By: #### C SHIN PINAndrew, 07224-5, BMP #### [facility] ([id number]) [address], [facility] [address] [place] [address] Eosinophils/100 WBC (Bld) 1.0 % Normal [facility] Comment on above: Performed By: #### C BRANDON MELISSA, 76702-8, BMP #### [facility] ([id number]) [address] [address] [place] [address] Erythrocyte distribution width (RBC) [Ratio] 13.4 % Normal 11.5-15.0 [facility] Comment on above: Performed By: #### C BRANDON MELISSA, 43034-0, BMP #### [facility] ([id number]) [address], [facility] [address] [place] [address] Hematocrit (Bld) [Volume fraction] 41.5 % Normal 39-49 [facility] Comment on above: Performed By: #### BRANDON Lombardo BCA, 71018-9, BMP #### [facility] ([id number]) [address], [facility] [address] [place] [address] Hemoglobin (Bld) [Mass/Vol] 13.9 g/dL Normal 13.0-17.0 [facility] Comment on above: Performed By: #### [employer] PINR, 70158-5, BMP #### [facility] ([id number]) [address] [address] [place] [address] Lymphocytes (Bld) [#/Vol] 1.2 10*3/uL Normal 1.0-3.5 [facility] Comment on above: Performed By: #### C BCA, PINR, 45481-0, BMP #### [facility] ([id number]) [address], [address] [place] [address] Lymphocytes/100 WBC (Bld) 28.0 % Normal [facility] Comment on above: Performed By: #### C SHIN, PINR, 60507-0, BMP #### [facility] ([id number]) [address], [address] [place] [address] MCH (RBC) [Entitic mass] 32.3 pg Normal 27-34 [facility] Comment on above: Performed By: #### C SHIN, PINR, 68000-4, BMP #### [facility] ([id number]) [address], [facility] [address] [place] [address] MCHC (RBC) [Mass/Vol] 33.6 g/dL Normal 32-36 [facility] Comment on above: Performed By: #### C SHIN, PINR, 83628-8, BMP #### [facility] ([id number]) [address], [facility] [address] [place] [address] MCV (RBC) [Entitic vol] 96 fL Normal 80-100 [facility] Comment on above: Performed By: #### C SHIN, PINR, 89428-1, BMP #### [facility] ([id number]) [address], [address] [place] [address] Monocytes (Bld) [#/Vol] 0.4 10*3/uL Normal 0-0.9 [facility] Comment on above: Performed By: #### C BCA, PINR, 68306-7, BMP #### [facility] ([id number]) [address], [address] [place] [address] Monocytes/100 WBC (Bld) 10.3 % Normal [facility] Comment on above: Performed By: #### C BCA, PINR, 41666-1, BMP #### [facility] ([id number]) [address], [address] [place] [address] Neutrophils/100 WBC (Bld) 60.1 % Normal [facility] Comment on above: Performed By: #### C SHIN, PINR, 73897-0, BMP #### [facility] ([id number]) [address], [facility] [address] [place] [address] Platelet mean volume (Bld) [Entitic vol] 7.5 fL Normal 7-12 [facility] Comment on above: Performed By: #### C SHIN, PINR, 31360-5, BMP #### [facility] ([id number]) [address], [address] [place] [address] Platelets (Bld) [#/Vol] 197 10*3/uL Normal 150-450 [facility] Comment on above: Performed By: #### C SHIN, PINR, 35701-6, BMP #### [facility] ([id number]) [address], [facility] [address] [place] [address] RBC COUNT 4.31 X10E12/L Normal 4.10-5.70 [facility] Comment on above: Performed By: #### C SHIN, PINR, 10903-2, BMP #### [facility] ([id number]) [address], [address] [address] WBC (Bld) [#/Vol] 4.3 10*3/uL Normal 4.0-11.0 [facility] Comment on above: Performed By: #### C SHIN, PINR, 27581-1, BMP #### [facility] ([id number]) [address], [address] [place] [address] Calcium.ionized (Bld) [Mass/ Vol]on 12-29-2023 IONIZED CALCIUM 4.5 mg/dL Normal 4.5-5.3 [facility] Comment on above: Performed By: #### 3 8230-9 #### [facility] ([id number]) [address], [address] [place] [address] HGB AND HCTon 12-29-2023 Hematocrit (Bld) [Volume fraction] 31.6 % Low 39-49 [facility] Comment on above: Performed By: #### C SHIN PINR, 65652-0, BMP #### [facility] ([id number]) [address], [address] [place] [address] Hemoglobin (Bld) [Mass/Vol] 11.2 g/dL Low 13.0-17.0 [facility] Comment on above: Performed By: #### C SHIN, PINR, 57593-2, BMP #### [facility] ([id number]) [address] [place] [address] MAGNESIUMon 12-29-2023 Magnesium [Mass/Vol] 2.1 mg/dL Normal 1.8-2.6 [facility] Comment on above: Performed By: #### [place], 824[address]-2 #### [facility] ([id number]) [address], [address] [place] [address] Magnesium Ionized ISE (Bld) [Moles/Vol]on 12-29-2023 Magnesium [Moles/Vol] 0.63 mmol/L Normal 0.45-0.74 [facility] Comment on above: Result Comment: NEW REFERENCE RANGE Performed By: #### 7 3572-0 #### [facility] ([id number]) [address], [address] [place] [address] PROTIME AND INRon 12-29-2023 INR Coag (PPP) [Relative time] 1.0 {INR} Normal 0.8-1.1 [facility] Comment on above: Performed By: #### C SHIN, PINR, 34522-7, BMP #### [facility] ([id number]) [address] [place] [address] PT Coag (PPP) [Time] 12.0 s Normal 9.8-13.2 [facility] Comment on above: Performed By: #### C BCA, PINR, 51731-6, BMP #### [facility] ([id number]) [address] [place] [address] RAPID CARDIACon 12-29-2023 SHAUNNA'S TEST Normal [facility] Comment on above: Performed By: #### A FAB5 #### [facility] ([id number]) [address] [place] [address] BASE,DEFICIT 2.0 MMOL/L Normal 0.0-2.0 [facility] Comment on above: Performed By: #### A FAB5 #### [facility] ([id number]) [address] [place] [address] Body temperature 98.6 [degF] Normal 37.0 [facility] Comment on above: Performed By: #### A FAB5 #### [facility] ([id number]) [address] [place] [address] Glucose [Mass/Vol] 111 mg/dL High 65-99 [facility] Comment on above: Performed By: #### A FAB5 #### [facility] ([id number]) [address] [place] [address] HCO3 (Bld) [Moles/Vol] 22.4 mmol/L Normal 22-26 [facility] Comment on above: Performed By: #### A FAB5 #### [facility] ([id number]) [address] [place] [address] Hematocrit (Bld) [Volume fraction] 37 % Low 39-49 [facility] Comment on above: Performed By: #### A FAB5 #### [facility] ([id number]) [address] [place] [address] Hemoglobin (Bld) [Mass/Vol] 12.1 g/dL Low 13.0-17.0 [facility] Comment on above: Performed By: #### A FAB5 #### [facility] ([id number]) [address] [place] [address] INSP. O2 CONC. 100 % Normal [facility] Comment on above: Performed By: #### A FAB5 #### [facility] ([id number]) [address] [place] [address] IONIZED CALCIUM 4.6 mg/dL Normal 4.5-5.3 [facility] Comment on above: Performed By: #### A FAB5 #### [facility] ([id number]) [address] [place] [address] Oxygen (Bld) [Partial pressure] 254 mm[Hg] High 80-100 [facility] Comment on above: Performed By: #### A FAB5 #### [facility] ([id number]) [address] [place] [address] Oxygen saturation in Blood 100.4 % Normal >90 [facility] Comment on above: Performed By: #### A FAB5 #### [facility] ([id number]) [address] [place] [address] PCO2 33.9 MMHG Low 35-45 [facility] Comment on above: Performed By: #### A FAB5 #### [facility] ([id number]) [address] [place] [address] pH (Bld) 7.428 [pH] Normal 7.350-7.450 [facility] Comment on above: Performed By: #### A FAB5 #### [facility] ([id number]) [address] [place] [address] Potassium [Moles/Vol] 3.8 mmol/L Normal 3.5-5.0 [facility] Comment on above: Performed By: #### A FAB5 #### [facility] ([id number]) [address] [place] [address] SAMPLE SITE [facility] Comment on above: Performed By: #### A FAB5 #### [facility] ([id number]) [address] [place] [address] SAMPLE TYPE Arterial [facility] Comment on above: Performed By: #### A FAB5 #### [facility] ([id number]) [address] [place] [address] aPTT Coag (PPP) [Time]on aPTT Coag (Bld) [Time] 37 s Normal 26-37 [facility] Comment on above: Performed By: #### C SHIN, PINR, 31694-0, BMP #### [facility] ([id number]) [address] [facility], [address] [place] [address] Hgb/Hcton 12-01-2023 Hematocrit (Bld) [Volume fraction] 41.3 % Normal 41.0-53.0 [facility] Comment on above: Performed By: #### F EBC, LIPR, FT4 #### [facility] [place], [place] [id number] Access Specialist: Arnav Barnes MD #### HH #### [facility] [address] [place] [address] Access Specialist: Анна Biswas MD Hemoglobin (Bld) [Mass/Vol] 13.9 g/dL Normal 13.5-17.5 [facility] Comment on above: Performed By: #### F EBC, LIPR, FT4 #### [facility] [address] [place], [place] [id number] Access Specialist: Arnav Barnes MD #### HH #### [facility] [address] [place] [address] Access Specialist: Анна Biswas MD Iron Binding Cap.on 12-01-19 24 % Fe Saturation 27 % Normal 20-55 [facility] Comment on above: Performed By: #### F EBC, LIPR, FT4 #### [address] [place] [address] Access Specialist: Arnav Barnes MD #### HH #### [facility] [address] [place] [address] Access Specialist: Анна Biswas MD Iron [Mass/Vol] 79 ug/dL Normal 61-157 [facility] Comment on above: Performed By: #### F EBC, LIPR, FT4 #### [address] [address] Access Specialist: Arnav Barnes MD #### HH #### [facility] [address] [place] [address] Access Specialist: Анна Biswas MD Total Fe Binding Cap 292 ug/dL Normal 250-450 [facility] Comment on above: Performed By: #### F EBC, LIPR, FT4 #### [address] [address] Access Specialist: Arnav Banres MD #### HH #### [facility] [address] [place] [address] Access Specialist: Анна Biswas MD Unbound Fe Bind Cap 213 ug/dL Normal 112-347 [facility] Comment on above: Performed By: #### F EBC, LIPR, FT4 #### [facility] [address] [place] [address] Access Specialist: Arnav Barnes MD #### HH #### [facility] [address] [place], [place] [address] Access Specialist: Анна Biswas MD Lipid Profileon 12-01-2023 Cholesterol [Mass/Vol] 151 mg/dL Normal 0-199 [facility] Comment on above: Result Comment: Cholesterol Guidelines: <200 Desirable 200-240 Borderline >240 Undesirable Performed By: #### F EBC, LIPR, FT4 #### [facility] [place] [address] Access Specialist: Arnav Barnes MD #### HH #### [facility] [address] [place], [place] [address] Access Specialist: Анна Biswas MD Cholesterol in HDL [Mass/Vol] 54 mg/dL Normal >40 [facility] Comment on above: Result Comment: HDL Guidelines: <40 Undesirable 40-59 Borderline >59 Desirable Performed By: #### F EBC, LIPR, FT4 #### [address] [id number] Access Specialist: Arnav Barnes MD #### HH #### [facility] [address] [place], [place] [address] Access Specialist: Анна Biswas MD Cholesterol in LDL [Mass/Vol] 89 mg/dL Normal 0-100 [facility] Comment on above: Result Comment: LDL Guidelines: <100 Desirable 100-129 Near to/above Desirable 130-159 Borderline >159 Undesirable Direct (measured) LDL and calculated LDL are not interchangeable tests. Performed By: #### F EBC, LIPR, FT4 #### [facility] [address] [place] [address] Access Specialist: Arnav Barnes MD #### HH #### [facility] [address] [place], [place] [address] Access Specialist: Анна Biswas MD Cholesterol in VLDL [Mass/Vol] 8 mg/dL Normal [facility] Comment on above: Performed By: #### F EBC, LIPR, FT4 #### [facility] [address] [place] [address] Access Specialist: Aranv Barnes MD #### HH #### [facility] [address] [place] [address] Access Specialist: Анна Biswas MD Cholesterol.total/Chol esterol in HDL [Mass ratio] 3.0 {ratio} Normal [facility] Comment on above: Performed By: #### F EBC, LIPR, FT4 #### [facility] [address] [place] [address] Access Specialist: Arnav Barnes MD #### HH #### [facility] [address] [place] [address] Access Specialist: Анна Biswas MD Triglyceride [Mass/Vol] 41 mg/dL Normal <150 [facility] Comment on above: Result Comment: Triglyceride Guidelines: <150 Desirable 150-199 Borderline 200-499 High >499 Very high Based on AHA Guidelines for fasting triglyceride, March 2012. Performed By: #### F EBC, LIPR, FT4 #### [facility] [address] [place] [address] Access Specialist: Arnav Barnes MD #### HH #### [facility] [address] [place] [address] Access Specialist: Анна Biswas MD Thyroxine, Freeon 12-01-2023 Thyroxine, Free 1.1 ng/dL Normal 0.92-1.68 [facility] Comment on above: Performed By: #### F EBC, LIPR, FT4 #### [facility] [address] [place] [address] Access Specialist: Arnav Barnes MD #### HH #### [facility] [address] [place] [address] Access Specialist: Анна Biswas MD Office Visiton 11-16-2023 Follow-up visit [id number] Faith Penn 1945 M Date Provider Department Center 11/16/2023 Dave-MORE TRAORE SERENA Jonny Trivedi Family History Problem Relation Age of Onset Stroke Father Diabetes Father Family Status - Relation Status Age at Father Level of Service:10626 [place] OFFICE/OUTPATIENT ESTABLISHED MOD MDM 30 MIN Normal [place] Outside Recordson 11-03-2023 Outside Records [id number]# 1.00TIFF Normal [facility] Alanine aminotransferase [En zymatic activity/volume] in Serum or PlasmaOrdered By: Leonides Velasquez on 06-06-2023 ALT [Catalytic activity/Vol] 23 U/L Normal 7-52 [facility] Comment on above: Performed By: #### C BC, CMP #### [facility] [address] [place] [address] [place] Albumin [Mass/volume] in Ser um or Plasma by Bromocresol green (BCG) dye binding methoOrdered By: Leonides Velasquez on 06-06-2023 Albumin BCG dye [Mass/Vol] 4.3 g/dL 3.5-5.7 [facility] Alkaline phosphatase [Enzyma tic activity/volume] in Serum or PlasmaOrdered By: Leonides Velasquez on 06-06-2023 ALP [Catalytic activity/Vol] 42 U/L Normal 34-104 [facility] Comment on above: Performed By: #### C BC, CMP #### [facility] [address] [place] [address] [place] Aspartate aminotransferase [ Enzymatic activity/volume] in Serum or PlasmaOrdered By: Leonides Velasquez on 06-06-2023 AST [Catalytic activity/Vol] 22 U/L Normal 13-39 [facility] Comment on above: Performed By: #### C BC, CMP #### [facility] [address] [place] [address] [place] Automated basophil %Ordered By: Leonides Velasquez on 06-06-2023 Basophils/100 WBC (Bld) 0.4 % Normal . [facility] Comment on above: Performed By: #### C BC, CMP #### [address] Automated basophil countOrde red By: Leonides Manisha on 06-06-2023 Basophils (Bld) [#/Vol] 0.0 10*3/uL Normal 0.0-0.2 [facility] Comment on above: Result Comment: PERF ORMED BY: [place] [address] PATHOLOGIST WRAPPER SHEETER ANNABEL SANON M.D. Performed By: #### C BC, CMP #### [address] Automated blood monocyte cou ntOrdered By: Leonides Velasquez on 06-06-2023 Monocytes (Bld) [#/Vol] 1.0 10*3/uL High 0.0-0.8 [facility] Comment on above: Performed By: #### C BC, CMP #### [address] Automated eosinophil %Ordere d By: Leonides Velasquez on 06-06-2023 Eosinophils/100 WBC (Bld) 0.2 % Normal . [facility] Comment on above: Performed By: #### C BC, CMP #### [address] Automated eosinophil countOr dered By: Leonides Velasquez on 06-06-2023 Eosinophils (Bld) [#/Vol] 0.0 10*3/uL Normal 0.0-0.45 [facility] Comment on above: Performed By: #### C BC, CMP #### [address] Automated erythrocytes count in urine sediment (number/area)Ordered By: Leonides Velasquez on 06-06-2023 RBC Auto (Urine sed) [#/Area] 0-1 [HPF] 0-4 [facility] Automated leukocytes count i n urine sediment (number/area)Ordered By: Leonides Velasquez on 06-06-2023 WBC Auto (Urine sed) [#/Area] 1-2 [HPF] 0-4 [facility] Automated monocyte %Ordered By: Leonides Velasquez on 06-06-2023 Monocytes/100 WBC (Bld) 20.7 % Normal . [facility] Comment on above: Performed By: #### C BC, CMP #### [address] Automated neutrophil %Ordere d By: Leonides Manisha on 06-06-2023 Neutrophils/100 WBC (Bld) 66.6 % Normal . [facility] Comment on above: Performed By: #### C BC, CMP #### [address] Automated urine color determ inationOrdered By: Leonides Velasquez on 06-06-2023 Color (U) Yellow Normal Yellow [facility] Comment on above: Order Comment: Name Collection Type:: Clean-Voided Midstream Performed By: #### A DDONUAPLUS #### [address] Bilirubin Test strip Ql (U)O rdered By: Leonides Velasquez on 06-06-2023 Bilirubin Ql (U) Negative Negative [facility] Bilirubin.total [Mass/volume ] in Serum or PlasmaOrdered By: Leonides eVlasquez on 06-06-2023 Bilirubin [Mass/Vol] 0.5 mg/dL Normal 0.3-1.0 [facility] Comment on above: Performed By: #### C BC, CMP #### [address] Calcium [Mass/volume] in Ser um or PlasmaOrdered By: Leonides Velasquez on 06-06-2023 Calcium [Mass/Vol] 9.1 mg/dL Normal 8.6-10.3 [facility] Comment on above: Performed By: #### C BC, CMP #### [address] Carbon dioxide, total [Moles /volume] in Serum or PlasmaOrdered By: Leonides Velasquez on 06-06-2023 CO2 [Moles/Vol] 27.5 mmol/L Normal 21.0-31.0 [facility] Comment on above: Performed By: #### C BC, CMP #### [address] Chloride [Moles/volume] in S stephen or PlasmaOrdered By: Leonides Velasquez on 06-06-2023 Chloride [Moles/Vol] 101 mmol/L Normal 98-107 [facility] Comment on above: Performed By: #### C BC, CMP #### [address] Complete Blood Count Auto Di ffon 06-06-2023 Mean Corpuscular HGB Conc 33.8 g/dL Normal 32.5-35.6 [facility] Comment on above: Performed By: #### C BC, CMP #### [address] Monocytes/100 WBC (Bld) 24.84 % High 0.00-20.00 [facility] Comment on above: Result Comment: For adults in ED, MDW > 20.0 may be associated with a higher risk of sepsis during the first 12 hrs of hospital admission Performed By: #### C BC, CMP #### [address] NRBC% 0.1 /100{WBC} Normal 0-0.5 [facility] Comment on above: Performed By: #### C BC, CMP #### [address] Comprehensive Metabolic Pane ruth 06-06-2023 Albumin [Mass/Vol] 4.3 g/dL Normal 3.5-5.7 [facility] Comment on above: Performed By: #### C BC, CMP #### [address] Creatinine Clr Calc Pharmacy 71.67 Normal [facility] Comment on above: Result Comment: PERF ORMED BY: [place] [address] PATHOLOGIST WRAPPER SHEETER ANNABEL SANON M.D. Performed By: #### C BC, CMP #### [place] [address] [place] GFR/1.73 sq M.predicted MDRD (S/P/Bld) [Vol rate/Area] mL/min/{1.73_m2} Normal [facility] Comment on above: Performed By: #### C BC, CMP #### [address] Creatinine [Mass/volume] in Serum or PlasmaOrdered By: Leonides Velasquez on 06-06-2023 Creatinine [Mass/Vol] 0.96 mg/dL Normal 0.70-1.30 [facility] Comment on above: Performed By: #### C BC, CMP #### [place] [address] [place] Dipstick and Microscopicon 1 Appearance (U) Clear Normal Clear [facility] Comment on above: Order Comment: Name Collection Type:: Clean-Voided Midstream Performed By: #### A DDONUAPLUS #### [place] [address] [place] Bacteria,Urine 1+ High None Seen [facility] Comment on above: Order Comment: Name Collection Type:: Clean-Voided Midstream Performed By: #### A DDONUAPLUS #### [address] Bilirubin,Urine Negative Normal Negative [facility] Comment on above: Order Comment: Name Collection Type:: Clean-Voided Midstream Performed By: #### A DDONUAPLUS #### [place] [address] [place] Glucose Ql (U) Normal Normal Normal [facility] Comment on above: Order Comment: Name Collection Type:: Clean-Voided Midstream Performed By: #### A DDONUAPLUS #### [place] [address] [place] Hyaline Casts,Urine None Seen Normal 0-8 [facility] Comment on above: Order Comment: Name Collection Type:: Clean-Voided Midstream Result Comment: PERF ORMED BY: [place] [id number] PATHOLOGIST WRAPPER SHEETER ANNABEL SANON M.D. Performed By: #### A DDONUAPLUS #### [address] Ketones Ql (U) 1+ High Negative [facility] Comment on above: Order Comment: Name Collection Type:: Clean-Voided Midstream Performed By: #### A DDONUAPLUS #### [address] Leukocyte esterase Test strip Ql (U) Negative Normal Negative [facility] Comment on above: Order Comment: Name Collection Type:: Clean-Voided Midstream Performed By: #### A DDONUAPLUS #### [address] Nitrite,Urine Negative Normal Negative [facility] Comment on above: Order Comment: Name Collection Type:: Clean-Voided Midstream Performed By: #### A DDONUAPLUS #### [address] Occult Blood,Urine Trace High Negative [facility] Comment on above: Order Comment: Name Collection Type:: Clean-Voided Midstream Result Comment: PERF ORMED BY: [place] [address] PATHOLOGIST WRAPPER SHEETER ANNABEL SANON M.D. Performed By: #### A DDONUAPLUS #### [address] Protein,Urine Negative Normal Negative [facility] Comment on above: Order Comment: Name Collection Type:: Clean-Voided Midstream Performed By: #### A DDONUAPLUS #### [address] RBC LM.HPF (Urine sed) [#/Area] 0 /[HPF] Normal 0-4 [facility] Comment on above: Order Comment: Name Collection Type:: Clean-Voided Midstream Performed By: #### A DDONUAPLUS #### [address] Specificy [place],Urine 1.018 Normal 1.001-1.030 [facility] Comment on above: Order Comment: Name Collection Type:: Clean-Voided Midstream Performed By: #### A DDONUAPLUS #### [place] [id number] [facility] Squamous Epithelial Cell,Urine None Seen Normal 0-2 [facility] Comment on above: Order Comment: Name Collection Type:: Clean-Voided Midstream Performed By: #### A DDONUAPLUS #### [address] Urobilinogen,Urine Normal Normal Normal [facility] Comment on above: Order Comment: Name Collection Type:: Clean-Voided Midstream Performed By: #### A DDONUAPLUS #### [address] WBC,Urine 1-2 Normal 0-4 [facility] Comment on above: Order Comment: Name Collection Type:: Clean-Voided Midstream Performed By: #### A DDONUAPLUS #### [address] ECG 12 lead ECGon 06-06-2023 ECG 12 lead ECG [facility] [place] [address] [place] [address] Electrocardiograph Report Signed Patient: Faith Penn MR#: [id number] : 1945 Acct:[id number] Age/Sex: 78 / M ADM Date: 06/06/23 Loc: ER Room: Type: [facility] ER Attending Dr: Ordering Provider: Leonides [...] By Leonides Velasquez DO 2312 Normal [facility] Erythrocyte distribution wid th [Ratio] by Automated countOrdered By: Leonides Velasquez on 06-06-2023 Erythrocyte distribution width (RBC) [Ratio] 12.9 % Normal 12.0-14.8 [facility] Comment on above: Performed By: #### C BC, CMP #### [address] Erythrocytes [#/volume] in B lood by Automated countOrdered By: Leonides Velasquez on 06-06-2023 RBC (Bld) [#/Vol] 4.13 10*6/uL Normal 3.90-5.60 [facility] System Comment on above: Performed By: #### C BC, CMP #### [address] Glucose [Mass/volume] in Ser um or PlasmaOrdered By: Leonides Velasquez on 06-06-2023 Glucose [Mass/Vol] 91 mg/dL Normal 70-100 [facility] Comment on above: ADA recommended refe rence rangeRandom Glucose Reference Range is dependent on time and content of last meal. Glucose of more than 200 mg/dL in a nonstressed, ambulatory subject supports the diagnosis of Diabetes Mellitus. Result Comment: [place] om Glucose Reference Range is dependent on time and content of last meal. Glucose of more than 200 mg/dL in a nonstressed, ambulatory subject supports the diagnosis of Diabetes Mellitus. ADA recommended reference range Performed By: #### C BC, CMP #### [facility] [address] [place] [address] [place] Hematocrit [Volume Fraction] of Blood by Automated countOrdered By: Leonides Velasquez on 06-06-2023 Hematocrit (Bld) [Volume fraction] 39.6 % Normal 38.8-50.0 [facility] Comment on above: Performed By: #### C BC, CMP #### [facility] [address] Hemoglobin [Mass/volume] in BloodOrdered By: Leonides Velasquez on 06-06-2023 Hemoglobin (Bld) [Mass/Vol] 13.4 g/dL Normal 13.0-17.0 [facility] Comment on above: Performed By: #### C BC, CMP #### [address] Ketones Auto test strip (U) [Mass/Vol]Ordered By: Leonides Velasquez on 06-06-2023 Ketones (U) [Mass/Vol] 1+ Negative [facility] Laboratory - UrinalysisOrder ed By: Leonides Velasquez on 06-06-2023 Hyaline casts LM Ql (Urine sed) None seen [LPF] 0-8 [facility] Leukocytes [#/volume] correc hunter for nucleated erythrocytes in Blood by Automated counOrdered By: Leonides Velasquez on 06-06-2023 WBC corrected for nucl RBC Auto (Bld) [#/Vol] 4.9 10*3/uL 4.1-10.5 [facility] Leukocytes [#/volume] in Blo od by Automated countOrdered By: Leonides Velasquez on 06-06-2023 WBC (Bld) [#/Vol] 4.9 10*3/uL Normal 4.1-10.5 [facility] Comment on above: Performed By: #### C BC, CMP #### [place] [address] [place] Lymphocytes [#/volume] in Bl ood by Automated countOrdered By: Leonides Velasquez on 06-06-2023 Lymphocytes (Bld) [#/Vol] 0.6 10*3/uL Low 1.00-4.8 [facility] Comment on above: Performed By: #### C BC, CMP #### [address] Lymphocytes/100 leukocytes i n Blood by Automated countOrdered By: Leonides Velasquez on 06-06-2023 Lymphocytes/100 WBC (Bld) 12.1 % Normal . [facility] Comment on above: Performed By: #### C BC, CMP #### [address] MCH [Entitic mass] by Automa hunter countOrdered By: Leonides Velasquez on 06-06-2023 MCH (RBC) [Entitic mass] 32.4 pg Normal 27.5-35.2 [facility] Comment on above: Performed By: #### C BC, CMP #### [address] MCHC Auto (RBC) [Mass/Vol]Or dered By: Leonides Velasquez on 06-06-2023 MCHC (RBC) [Mass/Vol] 33.8 g/dL 32.5-35.6 [facility] MCV [Entitic volume] by Auto mated countOrdered By: Leonides Velasquez on 06-06-2023 MCV (RBC) [Entitic vol] 95.9 fL Normal 83.5-101 [facility] Comment on above: Performed By: #### C DIPIKA, CMP #### [address] Monocyte distribution width [Entitic volume] in Blood by AutomatedOrdered By: Leonides Velasquez on 06-06-2023 Monocyte distribution width Auto (Bld) [Entitic vol] 24.84 % 0.00-20.00 [facility] Comment on above: For adults in ED, MD W > 20.0 may be associated with a higher risk of sepsis during the first 12 hrs of hospital admission Neutrophils [#/volume] in Bl ood by Automated countOrdered By: Leonides Velasquez on 06-06-2023 Neutrophils (Bld) [#/Vol] 3.3 10*3/uL Normal 1.8-7.7 [facility] Comment on above: Performed By: #### C BC, CMP #### [address] Nitrite Test strip Ql (U)Ord ered By: Leonides Velasquez on 06-06-2023 Nitrite Ql (U) Negative Negative [facility] No Panel InformationOrdered By: Leonides Velasquez on 06-06-2023 Estimated GFR (CKD-EPI) > 60.0 mL/Min [facility] Creatinine Clearance (Chem 71.67 [facility] Nucleated erythrocytes [Pres ence] in Blood by Automated countOrdered By: Leonides Velasquez on 06-06-2023 Nucleated RBC Auto Ql (Bld) 0.1 /100{WBC} 0-0.5 [facility] Platelet mean volume [Entiti c volume] in Blood by Automated countOrdered By: Leonides Velasquez on 06-06-2023 Platelet mean volume (Bld) [Entitic vol] 7.4 fL Normal 6.6-10.1 [facility] Comment on above: Performed By: #### C BC, CMP #### [facility] [address] [place] [address] [place] Platelets [#/volume] in Bloo d by Automated countOrdered By: Leonides Velasquez on 06-06-2023 Platelets (Bld) [#/Vol] 175 10*3/uL Normal 150-450 [facility] Comment on above: Performed By: #### C BC, CMP #### [facility] [address] [place] [address] [place] Potassium [Moles/volume] in Serum or PlasmaOrdered By: Leonides Velasquez on 06-06-2023 Potassium [Moles/Vol] 3.8 mmol/L Normal 3.5-5.1 [facility] Comment on above: Performed By: #### C BC, CMP #### [facility] [address] Protein Auto test strip (U) [Mass/Vol]Ordered By: Leonides Velasquez on 06-06-2023 Protein (U) [Mass/Vol] Negative Negative [facility] Protein [Mass/volume] in Ser um or PlasmaOrdered By: Leonides Velasquez on 06-06-2023 Protein [Mass/Vol] 7.5 g/dL Normal 6.4-8.9 [facility] Comment on above: Performed By: #### C BC, CMP #### [facility] [address] Serum globulin measurement b y calculation (mass/volume)Ordered By: Leonides Velasquez on 06-06-2023 Globulin (S) [Mass/Vol] 3.2 g/dL [facility] Comment on above: Performed By: #### C BC, CMP #### [address] Serum or plasma albumin/glob ulin mass ratioOrdered By: Leonides Velasquez on 06-06-2023 Albumin/Globulin [Mass ratio] 1.3 {ratio} [facility] Comment on above: Performed By: #### C BC, CMP #### [address] Serum or plasma anion gap de terminationOrdered By: Leonides Velasquez on 06-06-2023 Anion gap [Moles/Vol] 8.3 mmol/L Normal 6.0-15.0 [facility] Comment on above: Performed By: #### C DIPIKA, CMP #### [address] Sodium [Moles/volume] in Ser um or PlasmaOrdered By: Leonides Velasquez on 06-06-2023 Sodium [Moles/Vol] 133 mmol/L Low 136-145 [facility] Comment on above: Performed By: #### C DIPIKA, CMP #### [address] Specific gravity Auto test s trip (U) [Rel density]Ordered By: Leonides Velasquez on 06-06-2023 Specific gravity (U) [Rel density] 1.018 1.001-1.030 [facility] Squamous epithelial cells de tection in urine sediment by light microscopyOrdered By: Leonides Velsaquez on 06-06-2023 Epithelial cells.squamous LM Ql (Urine sed) None seen [HPF] 0-2 [facility] Urea nitrogen [Mass/volume] in Serum or PlasmaOrdered By: Leonides Velasquez on 06-06-2023 Urea nitrogen [Mass/Vol] 16 mg/dL Normal 7-25 [facility] Comment on above: Performed By: #### C BC, CMP #### [address] Urine bacteria detection by automated methodOrdered By: Leonides Velasquez on 06-06-2023 Bacteria Auto Ql (U) 1+ None Seen [facility] Urine clarity by refractomet ry automatedOrdered By: Leonides Velasquez on 06-06-2023 Clarity Refractometry automated (U) Clear Clear [facility] Urine glucose measurement by automated test strip (mass/volume)Ordered By: Leonides Velasquez on 06-06-2023 Glucose Auto test strip (U) [Mass/Vol] Normal mg/dL Normal [facility] Urine hemoglobin detection b y automated test stripOrdered By: Leonides Velasquez on 06-06-2023 Hemoglobin Auto test strip Ql (U) Trace Negative [facility] Urine leukocyte esterase det ection by automated test stripOrdered By: Leonides Velasquez on 06-06-2023 Leukocyte esterase Auto test strip Ql (U) Negative Negative [facility] Urine pH measurement by auto mated test stripOrdered By: Leonides Velasquez on 06-06-2023 pH (U) 5.5 [pH] Normal 5.0-9.0 [facility] Comment on above: Order Comment: Name Collection Type:: Clean-Voided Midstream Performed By: #### A DDONUAPLUS #### [address] Urobilinogen Auto test strip (U) [Mass/Vol]Ordered By: Leonides Velasquez on 06-06-2023 Urobilinogen (U) [Mass/Vol] Normal mg/dL Normal [facility] XR chest 2V*on 06-06-2023 XR chest 2V* [facility] [place] [address] XRay Report Signed Patient: Faith Penn MR#: [id number] 655 : 1945 Acct:[id number] Age/Sex: 78 / M ADM Date: 06/06/23 Loc: ER Room: Type: [facility] ER Attending Dr: Copies to: Leonides [...] Tristan Bruce M.D.06/06/2023 7:14 PM Dictation Location: [place] [address] Transcribed By: [facility] 06/06/231913 Dictated By: Tristan Bruce DO 06/06/231912 Signed By: 06/06/231913 Normal [facility] PROF CHEM 8 (BAS METB)on Anion gap [Moles/Vol] 8.8 mmol/L Normal [facility] Comment on above: Performed By: #### B MP #### [facility] [address] [place] [address] [address] Marlen Mckeon Calcium [Mass/Vol] 9.0 mg/dL Normal 8.5-10.1 [facility] Comment on above: Performed By: #### B MP #### [facility] [address] [place] [address] [address] Marlen Mckeon Chloride [Moles/Vol] 103 mmol/L Normal 98-107 [facility] Comment on above: Performed By: #### B MP #### [facility] [address] [place] [address] [address] Marlen Mckeon CO2 [Moles/Vol] 29.6 mmol/L Normal 21.0-32.0 [facility] Comment on above: Performed By: #### B MP #### [facility] [address] [place] [address] [address] Marlen Mckeon Creatinine [Mass/Vol] 0.94 mg/dL Normal 0.70-1.30 [facility] Comment on above: Performed By: #### B MP #### [facility] [address] [place] [address] [address] Marlen Mckeon EGFR-AF GUATEMALAN >60 Normal >=60 [facility] Comment on above: Performed By: #### B MP #### [facility] [address] [place] [address] [address] Marlen Mckeon EGFR-NON AF GUATEMALAN >60 Normal >=60 [facility] Comment on above: Performed By: #### B MP #### [facility] [address] [place] [address] [address] Marlen Mckeon Glucose [Mass/Vol] 89 mg/dL Normal 74-106 [facility] Comment on above: Performed By: #### B MP #### [facility] [address] [address] [address] Marlen Mckeon Potassium [Moles/Vol] 4.4 mmol/L Normal 3.5-5.1 [facility] Comment on above: Performed By: #### B MP #### [facility] [address] [address] [address] Marlen Mckeon Sodium [Moles/Vol] 137 mmol/L Normal 136-145 [facility] Comment on above: Performed By: #### B MP #### [facility] [address] [address] [address] Marlen Mckeon Urea nitrogen [Mass/Vol] 18.0 mg/dL Normal 7.0-18.0 [facility] Comment on above: Performed By: #### B MP #### [facility] [address] [address] [address] Marlen Mckeon Urea nitrogen/Creatinine [Mass ratio] 19.1 mg/mg Normal [facility] Comment on above: Performed By: #### B MP #### [facility] [address] [address] [address] Marlen Mckeon Basic Metabolic Panelon - Anion gap [Moles/Vol] 9 mmol/L 9 - 17 mmol/L [facility] Calcium [Mass/Vol] 9.1 mg/dL 8.6 - 10. 4 mg/dL [facility] Chloride [Moles/Vol] 103 mmol/L 98 - 10 7 mmol/L [facility] CO2 [Moles/Vol] 26 mmol/L 20 - 31 mmol/L [facility] Creatinine [Mass/Vol] 0.83 mg/dL 0.70 - 1.20 mg/dL [facility] GFR/1.73 sq M.predicted MDRD (S/P/Bld) [Vol rate/Area] - PINF [facility] Comment on above: Effective Mar 10, 2022 [...] 101 mg/dL High 70 - 99 mg/dL [facility] Interpretation and review of laboratory results Abnormal [facility] Potassium [Moles/Vol] 4.5 mmol/L 3.7 - 5.3 mmol/L [facility] Sodium [Moles/Vol] 138 mmol/L 135 - 144 mmol/L [facility] Urea nitrogen (BldV) [Mass/Vol] 20 mg/dL 8 - 23 mg/dL [facility] Urea nitrogen/Creatinine (Bld) [Mass ratio] 24 High 9 - 20 [facility] CBC with Auto Differentialon 04-21-2022 Absolute Eos # 0.00 [facility] Absolute [facility] # 1.40 [facility] Absolute [place] # 0.60 [facility] RS [facility] Basophils (Bld) [#/Vol] 0.00 10*3/uL [facility] Basophils/100 WBC (Bld) 0 % 0 - 2 % [facility] Differential Type YES [facility] Eosinophils/100 WBC (Bld) 1 % 0 - 5 % [facility] Hematocrit (Bld) [Volume fraction] 41.3 % 41 - 53 % [facility] Hemoglobin (Bld) [Mass/Vol] 14.0 g/dL 13.5 - 17.5 g/dL [facility] Interpretation and review of laboratory results Abnormal [facility] Lymphocytes/100 WBC (Bld) 27 % 13 - 44 % [facility] MCH (RBC) [Entitic mass] 33.0 pg 26 - 34 pg [facility] MCHC (RBC) [Mass/Vol] 33.9 g/dL 31 - 37 g/dL B ON [facility] MCV (RBC) [Entitic vol] 97.4 fL 80 - 100 fL [facility] Monocytes/100 WBC (Bld) 11 % High 5 - 9 % [facility] Platelet distribution width (Bld) [Ratio] 13.7 % 12.1 - 15.2 % [facility] Platelets (Bld) [#/Vol] 222 10*3/uL [facility] RBC (Bld) [#/Vol] 4.23 10*6/uL Low 4.5 - 5.9 m/uL [facility] Segmented neutrophils/100 WBC (Bld) 61 % 39 - 75 % [facility] Segs Absolute 3.20 [facility] WBC (Bld) [#/Vol] 5.2 10*3/uL [facility] Gamma GTon 04-21-2022 Gamma glutamyl transferase [Catalytic activity/Vol] 17 U/L 8 - 61 U/L [facility] Hepatic Function Panelon Albumin [Mass/Vol] 4.1 g/dL 3.5 - 5.2 g/dL [facility] ALP (Bld) [Catalytic activity/Vol] 59 U/L 40 - 129 U/L [facility] ALT [Catalytic activity/Vol] 23 U/L 5 - 41 U/L [facility] AST [Catalytic activity/Vol] 20 U/L NINF - 40 U/L [facility] Bilirubin [Mass/Vol] 0.4 mg/dL 0.30 - 1.20 mg/dL [facility] Bilirubin, Indirect Can not be calculated 0.00 - 1.00 mg/dL [facility] Bilirubin.indirect [Mass/Vol] mg/dL NINF - 0.31 mg/dL [facility] Protein [Mass/Vol] 7.3 g/dL 6.4 - 8.3 g/dL [facility] Lipid Panelon 04-21-2022 Cholesterol [Mass/Vol] 128 mg/dL NINF - 200 mg/dL [facility] Comment on above: Cholesterol Guidelines: <200 Desirable 200-240 Borderline >240 Undesirable Cholesterol in HDL [Mass/Vol] 52 mg/dL 40 - PINF mg/dL [facility] Comment on above: HDL Guidelines: <40 Undesirable 40-59 Borderline >59 Desirable Cholesterol in LDL [Mass/Vol] 68 mg/dL 0 - 130 mg/dL [facility] [employer] Comment on above: LDL Guidelines: <100 Desirable 100-129 Near to/above Desirable 130-159 Borderline >159 Undesirable Direct (measured) LDL and calculated LDL are not interchangeable tests. Cholesterol.total/Chol esterol in HDL [Mass ratio] 2.5 {ratio} NINF - 5 [facility] [employer] Triglyceride [Mass/Vol] 38 mg/dL NINF - 150 mg/dL [facility] [employer] Comment on above: Triglyceride Guidelines: <150 Desirable 150-199 Borderline 200-499 High >499 Very high Based on AHA Guidelines for fasting triglyceride, March 2012. No Panel Informationon 04-21 [facility] Patient Fasting?on 2 Patient Fasting? YES [facility] COVID-19 SOFIAOrdered By: Nida Ravi on 04-11-2022 SARS-CoV+SARS-CoV-2 (COVID-19) Ag IA.rapid Ql (Resp) Negative Negative [facility] Comment on above: This is a duplicate [place] SARS Antigen (HERNAN) result to be used for statistical tracking purpose only. No Panel InformationOrdered By: Christiano Ravi on 04-11-2022 SARS Antigen (LFIA) [facility] XR FACIAL BONES (MIN 3 VIEWS )on 03-13-2022 Undisplaced nasal bone fracture. [facility] CONSOLIDATED EXAM: XR FACIAL BONE S (MIN 3 VIEWS ) HISTORY: Reason for exam:->frontal facial injury due to fall while intoxicated COMPARISON: None. TECHNIQUE: Facial bones 5 images. FINDINGS: Undisplaced fracture of the nasal bone. Spinous process of the maxilla is intact. Orbital floors and kelley are intact. The paranasal sinuses are normally aerated. [facility] Perez Velasquez Jr., MD - 03/13/2022 EXAM: XR FACIAL BONES (MIN 3 VIEWS ) HISTORY: Reason for exam:->frontal facial injury due to fall while intoxicated COMPARISON: None. TECHNIQUE: Facial bones 5 images. FINDINGS: Undisplaced fracture of the nasal bone. Spinous process of the maxilla is intact. Orbital floors and kelley are intact. The paranasal sinuses are normally aerated. IMPRESSION: Undisplaced nasal bone fracture. [employer] Phone: Radiology Study observation (narrative) [employer] Phone: XR FACIAL BONES (MIN 3 VIEWS )Ordered By: Perez Lopez on 03-13-2022 [employer] Phone: XR LUMBAR SPINE (MIN 4 VIEWS )on 11-11-2021 Degenerative changes. [facility] CONSOLIDATED EXAM: XR LUMBAR SPIN E (MIN 4 VIEWS) HISTORY: Reason for exam:->fall off pickup truck tail gait 10/31/21. COMPARISON: None. TECHNIQUE: Lumbar spine 5 views. FINDINGS: Moderate diffuse age expected disc degenerative change without fracture. [facility] Perez Velasquez Jr., MD - 11/11/2021 EXAM: XR LUMBAR SPINE (MIN 4 VIEWS) HISTORY: Reason for exam:->fall off pickup truck tail gait 10/31/21. COMPARISON: None. TECHNIQUE: Lumbar spine 5 views. FINDINGS: Moderate diffuse age expected disc degenerative change without fracture. IMPRESSION: Degenerative changes. [employer] Phone: Radiology Study observation (narrative) [employer] Phone: XR LUMBAR SPINE (MIN 4 VIEWS )Ordered By: Perez Lopez on 11-11-2021 [employer] Phone: US Carotid, Bilateralon 02-0 US Carotid, Bilateral FINDINGS: Right (% stenosis)Left [...] by Sahil Perla on 07/15/2021 1018 Normal [facility] Transport Rn Operative Reporton 2 Operative Report MR#: [id number] I [place] Pt. Name: Faith Penn Room #: FABIANA [id number] Discharge 06/26/2021 Date: Birthdate: 1945 OPERATIVE REPORT [...] Mora M.D. Date Trans: 06/30/2021 02:06 A/grabiel [id number] Normal [facility] BASIC METABOLIC PANELon 06-08 Calcium [Mass/Vol] 8.7 mg/dL Normal 8.6-10.3 [facility] Comment on above: Order Comment: No: D o not add to previous draw Performed By: #### 0 0071, [id number], [id number] #### [facility] [address] [place] [address], [facility] Chloride [Moles/Vol] 106 mmol/L Normal 98-107 [facility] [place] Comment on above: Order Comment: No: D o not add to previous draw Performed By: #### 0 0071, [id number], [id number] #### [facility] [address] [place] [address], [facility] CO2 [Moles/Vol] 25 mmol/L Normal 21-31 [facility] Comment on above: Order Comment: No: D o not add to previous draw Performed By: #### 0 0071, 91993, 68530 #### [facility] [address] [place] [address], [place] Creatinine [Mass/Vol] 0.69 mg/dL Low 0.70-1.30 [facility] [place] Comment on above: Order Comment: No: D o not add to previous draw Performed By: #### 0 0071, 81081, 99096 #### [facility] [address] [place] [address], [place] GFR/1.73 sq M.predicted among blacks MDRD (S/P/Bld) [Vol rate/Area] mL/min/{1.73_m2} Normal >60 [facility] [place] Comment on above: Order Comment: No: D o not add to previous draw Result Comment: Calc ulation may not be valid for patients over 70 years Performed By: #### 0 0071, 92654, 87306 #### [facility] [address] [place] [address], [place] GFR/1.73 sq M.predicted among non-blacks MDRD (S/P/Bld) [Vol rate/Area] mL/min/{1.73_m2} Normal >60 [facility] [place] Comment on above: Order Comment: No: D o not add to previous draw Result Comment: Calc ulation may not be valid for patients over 70 years Performed By: #### 0 0071, 22213, 75465 #### [facility] [address] [place] [address], [place] Glucose [Mass/Vol] 122 mg/dL High 70-100 [facility] Comment on above: Order Comment: No: D o not add to previous draw Performed By: #### 0 0071, 99659, 10944 #### [facility] [address] [place] [address], [place] Potassium [Moles/Vol] 3.7 mmol/L Normal 3.5-5.1 [facility] [place] Comment on above: Order Comment: No: D o not add to previous draw Performed By: #### 0 0071, 92676, 70079 #### [facility] [address] [place] [address], [facility] Sodium [Moles/Vol] 135 mmol/L Low 136-145 [facility] Comment on above: Order Comment: No: D o not add to previous draw Performed By: #### 0 0071, 21263, 60750 #### [facility] [address] Urea nitrogen [Mass/Vol] 9 mg/dL Normal 7-25 [facility] [place] Comment on above: Order Comment: No: D o not add to previous draw Performed By: #### 0 0071, 84343, 10012 #### [facility] [address] CBC W/DIFFon 06-26-2021 ABS IMM GRANS 0.0 10*3/uL Normal 0.0-0.2 [facility] Comment on above: Order Comment: No: D o not add to previous draw Performed By: #### 5 0103 #### [facility] [address] [place] [address], [facility] ABS NEUTROPHILS 4.3 10*3/uL Normal 1.6-7.6 [facility] Comment on above: Order Comment: No: D o not add to previous draw Performed By: #### 5 0103 #### [facility] [address] [facility] [place] [address], [facility] Basophils (Bld) [#/Vol] 0.0 10*3/uL Normal 0.0-0.2 [facility] [place] Comment on above: Order Comment: No: D o not add to previous draw Performed By: #### 5 0103 #### [facility] [address] [place] [address], [facility] Basophils/100 WBC (Bld) 0.4 % Normal 0.0-1.0 [facility] [place] Comment on above: Order Comment: No: D o not add to previous draw Performed By: #### 5 0103 #### [facility] [address] [place] [address], [facility] Eosinophils (Bld) [#/Vol] 0.1 10*3/uL Normal 0.0-0.5 [facility] [place] Comment on above: Order Comment: No: D o not add to previous draw Performed By: #### 5 0103 #### [facility] [address] [place] [address], [facility] Eosinophils/100 WBC (Bld) 0.7 % Normal 0.0-6.0 [facility] Comment on above: Order Comment: No: D o not add to previous draw Performed By: #### 5 0103 #### [facility] [address] [place] [address], [facility] Erythrocyte distribution width (RBC) [Ratio] 12.3 % Normal 11.5-15.0 [facility] Comment on above: Order Comment: No: D o not add to previous draw Performed By: #### 5 0103 #### [facility] [address] [place] [address], [facility] Hematocrit (Bld) [Volume fraction] 36.1 % Low 39.0-50.0 [facility] Comment on above: Order Comment: No: D o not add to previous draw Performed By: #### 5 0103 #### [facility] [address] [place] [address], [facility] Hemoglobin (Bld) [Mass/Vol] 12.8 g/dL Low 13.0-17.0 [facility] Comment on above: Order Comment: No: D o not add to previous draw Performed By: #### 5 0103 #### [facility] [address] [place] [address], [facility] IMMATURE GRANS 0.3 % Normal 0.0-1.0 [facility] Comment on above: Order Comment: No: D o not add to previous draw Performed By: #### 5 0103 #### [facility] [address] [place] [address], [facility] Lymphocytes (Bld) [#/Vol] 1.6 10*3/uL Normal 1.2-4.0 [facility] Comment on above: Order Comment: No: D o not add to previous draw Performed By: #### 5 0103 #### [facility] [address] [facility] [address], [facility] Lymphocytes/100 WBC (Bld) 23.4 % Normal 20.0-45.0 [facility] Comment on above: Order Comment: No: D o not add to previous draw Performed By: #### 5 0103 #### [facility] [address] [place] [address], [facility] MCH (RBC) [Entitic mass] 32.7 pg Normal 27.0-33.0 [facility] Comment on above: Order Comment: No: D o not add to previous draw Performed By: #### 5 0103 #### [facility] [address] [facility] [place] [address], [facility] MCHC (RBC) [Mass/Vol] 35.5 g/dL High 32.0-35.0 [facility] Comment on above: Order Comment: No: D o not add to previous draw Performed By: #### 5 0103 #### [facility] [address] [facility] [place] [address], [facility] MCV (RBC) [Entitic vol] 92.3 fL Normal 82.0-98.0 [facility] Comment on above: Order Comment: No: D o not add to previous draw Performed By: #### 5 0103 #### [facility] [address] [place] [address], [facility] Monocytes (Bld) [#/Vol] 0.7 10*3/uL Normal 0.1-1.0 [facility] Comment on above: Order Comment: No: D o not add to previous draw Performed By: #### 5 0103 #### [facility] [address] [place] [address], [place] MONOS 10.4 % Normal 5.0-12.0 [facility] Comment on above: Order Comment: No: D o not add to previous draw Performed By: #### 5 0103 #### [facility] [address] [place] [address], [place] Neutrophils/100 WBC (Bld) 64.8 % Normal 40.0-72.0 [facility] Comment on above: Order Comment: No: D o not add to previous draw Performed By: #### 5 0103 #### [facility] [address] [place] [address], [place] Nucleated RBC/100 WBC (Bld) [Ratio] 0 % Normal 0-0 [facility] Comment on above: Order Comment: No: D o not add to previous draw Performed By: #### 5 0103 #### [facility] [address] [place] [address], [place] PLAT CNT 197 10*3/uL Normal 150-400 The [facility] Comment on above: Order Comment: No: D o not add to previous draw Performed By: #### 5 3 #### [facility] [address] [place] [address], [place] RBC (Bld) [#/Vol] 3.91 10*6/uL Low 4.20-5.70 The [facility] Comment on above: Order Comment: No: D o not add to previous draw Performed By: #### 5 0103 #### [facility] [address] [place] [address], [place] WBC (Bld) [#/Vol] 6.71 10*3/uL Normal 4.00-10.60 [facility] Comment on above: Order Comment: No: D o not add to previous draw Performed By: #### 5 010 #### [facility] [address] [place] [address], [place] LIVER BATTERYon 06-26-2021 Albumin [Mass/Vol] 3.5 g/dL Normal 3.5-5.7 [facility] Comment on above: Order Comment: No: D o not add to previous draw Performed By: #### 0 0071, [id number], [id number] #### [facility] [address] [place] [address], [place] ALKALINE PHOSPH 40 IU/L Normal 34-104 [facility] Comment on above: Order Comment: No: D o not add to previous draw Performed By: #### 0 0071, 49526, [id number] #### [facility] [address] [place] [address], [place] ALT [Catalytic activity/Vol] 18 U/L Normal 7-52 [facility] Comment on above: Order Comment: No: D o not add to previous draw Performed By: #### 0 0071, [id number], [id number] #### [facility] [address] [place] [address], [place] AST [Catalytic activity/Vol] 15 U/L Normal 13-39 [facility] Comment on above: Order Comment: No: D o not add to previous draw Performed By: #### 0 0071, [id number], 28546 #### [facility] [address] [place] [address], [place] Bilirubin [Mass/Vol] 0.7 mg/dL Normal 0.3-1.0 [facility] Comment on above: Order Comment: No: D o not add to previous draw Performed By: #### 0 0071, 76473, 06741 #### [facility] [address] [place] [address], [place] Bilirubin.direct [Mass/Vol] 0.2 mg/dL Normal 0.0-0.2 [facility] Comment on above: Order Comment: No: D o not add to previous draw Performed By: #### 0 0071, 15790, 40932 #### [facility] [address] [place] [address], [place] Protein [Mass/Vol] 6.1 g/dL Normal 6.0-8.3 [facility] Comment on above: Order Comment: No: D o not add to previous draw Performed By: #### 0 0071, 71535, 52337 #### [facility] [address] [place] [address], [place] MONOSPOTon 06-26-2021 MONOSPOT Negative Normal NEGATIVE [facility] Comment on above: Order Comment: No: D o not add to previous draw Performed By: #### 5 0608 #### [facility] [address] [place] [address], [place] PHOSPHORUS BLOODon 2 Phosphate [Mass/Vol] 3.2 mg/dL Normal 2.5-5.0 [facility] Comment on above: Order Comment: No: D o not add to previous draw Performed By: #### 0 0071, [id number], [id number] #### [facility] [address] [place] [address], [place] ACTIVATED CLOTTING TIMEon ACTIVATED CLOTTING TIME 252 sec High 82-152 [facility] Comment on above: Performed By: #### 3 0739 #### [facility] [address] [place] [address], [place] ACTIVATED CLOTTING TIME 245 sec High 82-152 [facility] Comment on above: Performed By: #### 3 0739 #### [facility] [address] [place] [address], [place] ACTIVATED CLOTTING TIME 239 sec High 82-152 [facility] Comment on above: Performed By: #### 3 0739 #### [facility] [address] [place] [address], [place] ACTIVATED CLOTTING TIME 265 sec High 82-152 [facility] Comment on above: Performed By: #### 3 0739 #### [facility] [address] APTTon 06-25-2021 aPTT Coag (Bld) [Time] 47.8 s High 25.0-35.0 Th e [place] Comment on above: Result Comment: ALL RESULTS [...] 0608 #### [facility] [address] CBC COMPLETE BLOOD COUNTon 0 06-25-2021 Erythrocyte distribution width (RBC) [Ratio] 12.1 % Normal 11.5-15.0 [facility] Comment on above: Order Comment: No: D o not add to previous draw Performed By: #### 5 0608 #### [facility] [address] Hematocrit (Bld) [Volume fraction] 37.5 % Low 39.0-50.0 [facility] Comment on above: Order Comment: No: D o not add to previous draw Performed By: #### 5 0608 #### [facility] [address] Hemoglobin (Bld) [Mass/Vol] 13.3 g/dL Normal 13.0-17.0 [facility] Comment on above: Order Comment: No: D o not add to previous draw Performed By: #### 5 0608 #### [facility] [address] [place] [address], [facility] MCH (RBC) [Entitic mass] 32.7 pg Normal 27.0-33.0 [facility] Comment on above: Order Comment: No: D o not add to previous draw Performed By: #### 5 0608 #### [facility] [address] [place] [address], [facility] MCHC (RBC) [Mass/Vol] 35.5 g/dL High 32.0-35.0 [facility] Comment on above: Order Comment: No: D o not add to previous draw Performed By: #### 5 0608 #### [facility] [address] [place] [address], [facility] MCV (RBC) [Entitic vol] 92.1 fL Normal 82.0-98.0 [facility] Comment on above: Order Comment: No: D o not add to previous draw Performed By: #### 5 0608 #### [facility] [address] [facility] [address], [facility] Nucleated RBC/100 WBC (Bld) [Ratio] 0 % Normal 0-0 [facility] Comment on above: Order Comment: No: D o not add to previous draw Performed By: #### 5 0608 #### [facility] [address] [place] [address], [facility] PLAT CNT 197 10*3/uL Normal 150-400 [facility] Comment on above: Order Comment: No: D o not add to previous draw Performed By: #### 5 0608 #### [facility] [address] [facility] [place] [address], [facility] RBC (Bld) [#/Vol] 4.07 10*6/uL Low 4.20-5.70 [facility] Comment on above: Order Comment: No: D o not add to previous draw Performed By: #### 5 0608 #### [facility] [address] [place] [address], [facility] WBC (Bld) [#/Vol] 9.86 10*3/uL Normal 4.00-10.60 [facility] Comment on above: Order Comment: No: D o not add to previous draw Performed By: #### 5 0608 #### [facility] [address] [place] [address], [place] COMP METABOLIC PANELon 06-25 Albumin [Mass/Vol] 3.7 g/dL Normal 3.5-5.7 [facility] Comment on above: Order Comment: No: D o not add to previous draw Performed By: #### 0 0121 #### [facility] [address] [place] [address], [place] ALKALINE PHOSPH 39 IU/L Normal 34-104 [facility] Comment on above: Order Comment: No: D o not add to previous draw Performed By: #### 0 0121 #### [facility] [address] [place] [address], [place] ALT [Catalytic activity/Vol] 22 U/L Normal 7-52 [facility] Comment on above: Order Comment: No: D o not add to previous draw Performed By: #### 0 0121 #### [facility] [address] [place] [address], [place] AST [Catalytic activity/Vol] 15 U/L Normal 13-39 [facility] Comment on above: Order Comment: No: D o not add to previous draw Performed By: #### 0 0121 #### [facility] [address] [place] [address], [place] Bilirubin [Mass/Vol] 0.5 mg/dL Normal 0.3-1.0 [facility] Comment on above: Order Comment: No: D o not add to previous draw Performed By: #### 0 0121 #### [facility] [address] [place] [address], [place] Calcium [Mass/Vol] 8.9 mg/dL Normal 8.6-10.3 [facility] Comment on above: Order Comment: No: D o not add to previous draw Performed By: #### 0 0121 #### [facility] [address] [place] [address], [place] Chloride [Moles/Vol] 104 mmol/L Normal 98-107 [facility] Comment on above: Order Comment: No: D o not add to previous draw Performed By: #### 0 0121 #### [facility] [address] [place] [address], [place] CO2 [Moles/Vol] 25 mmol/L Normal 21-31 [facility] Comment on above: Order Comment: No: D o not add to previous draw Performed By: #### 0 0121 #### [facility] [address] [place] [address], [place] Creatinine [Mass/Vol] 0.73 mg/dL Normal 0.70-1.30 [facility] Comment on above: Order Comment: No: D o not add to previous draw Performed By: #### 0 0121 #### [facility] [address] [place] [address], [place] GFR/1.73 sq M.predicted among blacks MDRD (S/P/Bld) [Vol rate/Area] mL/min/{1.73_m2} Normal >60 [facility] Comment on above: Order Comment: No: D o not add to previous draw Result Comment: Calc ulation may not be valid for patients over 70 years Performed By: #### 0 0121 #### [facility] [address] [place] [address], [place] GFR/1.73 sq M.predicted among non-blacks MDRD (S/P/Bld) [Vol rate/Area] mL/min/{1.73_m2} Normal >60 [facility] Comment on above: Order Comment: No: D o not add to previous draw Result Comment: Calc ulation may not be valid for patients over 70 years Performed By: #### 0 0121 #### [facility] [address] [place] [address], [facility] Glucose [Mass/Vol] 115 mg/dL High 70-100 [facility] Comment on above: Order Comment: No: D o not add to previous draw Performed By: #### 0 0121 #### [facility] [address] [place] [address], [facility] Potassium [Moles/Vol] 3.8 mmol/L Normal 3.5-5.1 [facility] Comment on above: Order Comment: No: D o not add to previous draw Performed By: #### 0 0121 #### [facility] [address] [place] [address], [facility] Protein [Mass/Vol] 6.4 g/dL Normal 6.0-8.3 [facility] Comment on above: Order Comment: No: D o not add to previous draw Performed By: #### 0 0121 #### [facility] [address] [place] [address], [facility] Sodium [Moles/Vol] 135 mmol/L Low 136-145 [facility] Comment on above: Order Comment: No: D o not add to previous draw Performed By: #### 0 0121 #### [facility] [address] [place] [address], [facility] Urea nitrogen [Mass/Vol] 14 mg/dL Normal 7-25 [facility] Comment on above: Order Comment: No: D o not add to previous draw Performed By: #### 0 0121 #### [facility] [address] [place] [address], [facility] PROTHROMBIN TIMEon 2 INR Coag (PPP) [Relative time] 1.09 {INR} Normal 0.91-1.16 [facility] Comment on above: Result Comment: ACCC P RECOMMENDED INR FOR WARFARIN THERAPY --------- ------- CONDITION INR PROPHYLAXIS OF VENOUS THROMBOSIS [...] 0608 #### [facility] [address] [facility] PT Coag (PPP) [Time] 14.1 s Normal 12.3-14.8 [facility] Comment on above: Result Comment: ALL RESULTS MUST BE INTERPRETED WITH RESPECT TO BLOOD DRAWING ARTIFACT OR DILUTION ERROR OF ANTICOAGULANT AT THE TIME OF SAMPLING. Performed By: #### 5 0608 #### [facility] [address] MRI BRAIN WO CONTRASTOrdered By: Candace Giron on 03-29-2021 Mild cerebral atroph y with minimal small vessel ischemic changes of the supratentorial white matter. [employer] Work Phone: EXAM: MRI BRAIN WO CONTRAST HISTORY: [...] the paranasal sinuses and mastoid air cells. [employer] Phone: Kenneth, Mhpn Incoming Radiant Results From [employer] - 03/29/2021 3:13 PM EDT EXAM: MRI [...] ischemic changes of the supratentorial white matter. [employer] Phone: [employer] Phone: Basic Metabolic PanelOrdered By: Candace Giron on 10-22-2020 Anion gap [Moles/Vol] 8 mmol/L Low 9 - 17 mmol/L [employer] Phone: Calcium [Mass/Vol] 9.3 mg/dL 8.6 - 10. 4 mg/dL [employer] Phone: Chloride [Moles/Vol] 103 mmol/L 98 - 10 7 mmol/L [employer] Phone: CO2 [Moles/Vol] 27 mmol/L 20 - 31 mmol/L [employer] Phone: Creatinine [Mass/Vol] 0.79 mg/dL 0.70 - 1.20 mg/dL [employer] Phone: GFR >60 >60 mL/min [employer] Phone: GFR Non- >60 >60 mL/min [facility] Phone: GFR/1.73 sq M.predicted MDRD (S/P/Bld) [Vol rate/Area] [facility] Phone: Comment on above: Average GFR for 70 o r more years old: 75 mL/min/1.73sq m Chronic Kidney Disease: <60 mL/min/1.73sq m Kidney failure: <15 mL/min/1.73sq m eGFR calculated using average adult body mass. Additional eGFR calculator available at: http://www.[employer]/multiple_crcl_2012.htm GFR/1.73 sq M.predicted MDRD (S/P/Bld) [Vol rate/Area] NOT REPORTED [facility] Phone: Glucose [Mass/Vol] 111 mg/dL High 70 - 99 mg/dL [facility] [employer] Phone: Interpretation and review of laboratory results Abnormal [facility] Phone: Potassium [Moles/Vol] 4.1 mmol/L 3.7 - 5.3 mmol/L [facility] Phone: Sodium [Moles/Vol] 138 mmol/L 135 - 144 mmol/L [facility] Phone: Urea nitrogen (BldV) [Mass/Vol] 19 mg/dL 8 - 23 mg/dL [facility] Phone: Urea nitrogen/Creatinine (Bld) [Mass ratio] 24 High [facility] Phone: CBC Auto DifferentialOrdered By: Candace Giron on 10-22-2020 Absolute Eos # 0.10 [employer] Work Phone: Absolute Immature Granulocyte NOT REPORTED [employer] Work Phone: Absolute Lymph # 1.70 [employer] [facility] Work Phone: Absolute [place] # 0.50 [employer] [facility] Work Phone: Basophils (Bld) [#/Vol] 0.00 10*3/uL [employer] Work Phone: Basophils/100 WBC (Bld) 1 % 0 - 2 % [employer] Work Phone: Differential Type YES [facility] Work Phone: Eosinophils/100 WBC (Bld) 1 % 0 - 5 % [employer] Work Phone: Hematocrit (Bld) [Volume fraction] 43.1 % 41 - 53 % [employer] Work Phone: Hemoglobin.gastrointes tinal spec 1 Ql (Stl) 14.6 g/dL 13.5 - 17.5 g/dL [employer] Work Phone: Immature Granulocytes NOT REPORTED 0 % M [employer] Work Phone: Interpretation and review of laboratory results Abnormal [employer] Phone: Lymphocytes/100 WBC (Bld) 33 % 13 - 44 % [employer] Phone: MCH (RBC) [Entitic mass] 32.8 pg 26 - 34 pg [employer] Work Phone: MCHC (RBC) [Mass/Vol] 33.9 g/dL 31 - 37 g/dL [employer] Phone: MCV (RBC) [Entitic vol] 96.6 fL 80 - 100 fL [employer] Work Phone: Monocytes/100 WBC (Bld) 9 % 5 - 9 % [employer] Phone: NRBC Automated NOT REPORTED per 100 WBC [facility] Work Phone: Platelet distribution width (Bld) [Ratio] 13.1 % 12.1 - 15.2 % [employer] Phone: Platelet Estimate NOT REPORTED [employer] Work Phone: Platelet mean volume (Bld) [Entitic vol] NOT REPORTED 6.0 - 12.0 fL [employer] Work Phone: Platelets (Bld) [#/Vol] 241 10*3/uL [employer] Work Phone: RBC (Bld) [#/Vol] 4.46 10*6/uL Low 4.5 - 5.9 m/uL [employer] Work Phone: RBC (Bld) [#/Vol] NOT REPORTED [employer] Phone: Segmented neutrophils/100 WBC (Bld) 56 % 39 - 75 % [employer] Work Phone: Segs Absolute 2.90 [employer] Work Phone: WBC (Bld) [#/Vol] 5.1 10*3/uL [employer] Work Phone: WBC (Bld) [#/Vol] NOT REPORTED [employer] Phone: [employer] Work Phone: Hepatic Function PanelOrdere d By: Candace Giron on 10-22-2020 Albumin [Mass/Vol] 4.2 g/dL 3.5 - 5.2 g/dL [employer] Phone: Albumin/Globulin Ratio NOT REPORTED [employer] Work Phone: ALP (Bld) [Catalytic activity/Vol] 52 U/L 40 - 129 U/L [employer] Work Phone: ALT [Catalytic activity/Vol] 28 U/L 5 - 41 U/L [employer] Work Phone: AST [Catalytic activity/Vol] 23 U/L <40 [employer] Phone: Bilirubin [Mass/Vol] 0.33 mg/dL 0.30 - 1.20 mg/dL [employer] Phone: Bilirubin, Indirect CANNOT BE CALCULATED 0.00 - 1.00 mg/dL [employer] Phone: Bilirubin.indirect [Mass/Vol] mg/dL <0.31 mg/dL [employer] Phone: Free PSA/Total PSA [Mass fraction] 7.0 g/dL 6.4 - 8.3 g/dL [employer] Phone: Globulin NOT REPORTED 1.5 - 3.8 g/dL [employer] Phone: Lipid PanelOrdered By: Candace Giron on 10-22-2020 Cholesterol [Mass/Vol] 145 mg/dL <200 [email or web address] Phone: Comment on above: Cholesterol Guidelines: <200 Desirable 200-240 Borderline >240 Undesirable Cholesterol in HDL [Mass/Vol] 54 mg/dL >40 [employer] Phone: Comment on above: HDL Guidelines: <40 Undesirable 40-59 Borderline >59 Desirable Cholesterol in LDL [Mass/Vol] 85 mg/dL 0 - 130 mg/dL [employer] Phone: Comment on above: LDL Guidelines: <100 Desirable 100-129 Near to/above Desirable 130-159 Borderline >159 Undesirable Direct (measured) LDL and calculated LDL are not interchangeable tests. Cholesterol in VLDL [Mass/Vol] NOT REPORTED 1 - 30 mg/dL [employer] Phone: Cholesterol.total/Chol esterol in HDL [Mass ratio] 2.7 {ratio} <5 [employer] Phone: Triglyceride [Mass/Vol] 31 mg/dL <150 [employer] Phone: Comment on above: Triglyceride Guidelines: <150 Desirable 150-199 Borderline 200-499 High >499 Very high Based on AHA Guidelines for fasting triglyceride, March 2012. [employer] Phone: No Panel InformationOrdered By: Candace Giron on 10-22-2020 [employer] Phone: PSA screeningOrdered By: Flora Giron on 10-22-2020 [employer] Phone: Patient Fasting?Ordered By: Candace Giron on 10-22-2020 Patient Fasting? yes [employer] Work Phone: [employer] Phone: TSH with ReflexOrdered By: Dori Giron on 10-22-2020 TSH Qn 2.71 m[IU]/L [employer] Phone: Comprehensive Metabolic Pane ruth 08-25-2019 Albumin [Mass/Vol] 4.8 g/dL 3.5 - 5.2 g/dL [place] Albumin/Globulin [Mass ratio] NOT REPORTED [place] ALP [Catalytic activity/Vol] 49 U/L 40 - 129 U/L [place] ALT [Catalytic activity/Vol] 39 U/L 5 - 41 U/L [place] Anion gap [Moles/Vol] 11 mmol/L 9 - 17 mmol/L [place] AST [Catalytic activity/Vol] 27 U/L <40 [place] Bilirubin Ql (U) 0.76 mg/dL 0.3 - 1.2 mg/dL [place] Bun/Cre Ratio 17 [place], [place] Calcium [Mass/Vol] 10.5 mg/dL High 8.6 - 10. 4 mg/dL [place] Chloride [Moles/Vol] 99 mmol/L 98 - 10 7 mmol/L [place] CO2 [Moles/Vol] 28 mmol/L 20 - 31 mmol/L [place] Creatinine [Mass/Vol] 0.95 mg/dL 0.7 - 1.2 mg/dL [place] GFR >60 >60 mL/min [place] GFR Non- >60 >60 mL/min [place] GFR/1.73 sq M predicted among non-blacks MDRD (S/P/Bld) [Vol rate/Area] [place] Comment on above: Average GFR for 70 o r more years old: 75 mL/min/1.73sq m Chronic Kidney Disease: <60 mL/min/1.73sq m Kidney failure: <15 mL/min/1.73sq m eGFR calculated using average adult body mass. Additional eGFR calculator available at: http://www.[employer]/multiple_crcl_2012.htm GFR/1.73 sq M predicted among non-blacks MDRD (S/P/Bld) [Vol rate/Area] NOT REPORTED [place] Glucose [Mass/Vol] 111 mg/dL High 70 - 99 mg/dL [place], [place] Interpretation and review of laboratory results Abnormal [place] Potassium [Moles/Vol] 4.6 mmol/L 3.7 - 5.3 mmol/L [place] Protein [Mass/Vol] 8.1 g/dL 6.4 - 8.3 g/dL [place] Sodium [Moles/Vol] 138 mmol/L 135 - 144 mmol/L [place] Urea nitrogen [Mass/Vol] 16 mg/dL 8 - 23 mg/dL [place] Lipid Panelon 08-25-2019 Cholesterol [Mass/Vol] 154 mg/dL <200 [place] Comment on above: Cholesterol Guidelines: <200 Desirable 200-240 Borderline >240 Undesirable Cholesterol in HDL [Mass/Vol] 65 mg/dL >40 [place] Comment on above: HDL Guidelines: <40 Undesirable 40-59 Borderline >59 Desirable Cholesterol in LDL [Mass/Vol] 82 mg/dL 0 - 130 mg/dL [place] Comment on above: LDL Guidelines: <100 Desirable 100-129 Near to/above Desirable 130-159 Borderline >159 Undesirable Direct (measured) LDL and calculated LDL are not interchangeable tests. Cholesterol in VLDL [Mass/Vol] NOT REPORTED 1 - 30 mg/dL [place] Cholesterol.total/Chol esterol in HDL [Mass ratio] 2.4 {ratio} <5 [place] Triglyceride [Mass/Vol] 36 mg/dL <150 [place] Comment on above: Triglyceride Guidelines: <150 Desirable 150-199 Borderline 200-499 High >499 Very high Based on AHA Guidelines for fasting triglyceride, March 2012. Patient Fasting?on 0 Patient Fasting? yes [place] TSH with Reflexon 08-25-2019 TSH Qn 3.70 m[IU]/L [place] VL DUP CAROTID BILATERALon 0 08-25-2019 [facility] V[facility] Carotid Procedure Patient Name FILI Date of Study 08/25/2019 FAITH Lombardo Date of 1945 Gender Male Age 74 year(s) Race Room Number US Corporate ID [id number] # Patient Acct [id number] # MR # [id number] Guitar Repair Technician MICHELLE Toscano Interpreting Physician Anusha Lopez Referring Candace Giron Referring Physician Nurse WOOD LATHER Practitioner Procedure Type of Study: Cerebral: Carotid, [...] bilaterally. Antegrade flow in the vertebrals. Signature - - - - Findings: Right Impression: Left Impression: There are [...] measured in cm Carotid Right Measurements + +-------- +-------+-------+---- --+ +------ + !Location !PSV !EDV !Angle !RI !%Stenosis !Tortuosity ! + +-------- +-------+-------+---- --+ +------ + !Prox CCA !98.63 !14.41 ! !0.85 ! ! ! + +-------- +-------+-------+---- --+ +------ + !Mid CCA !95.39 !16.03 ! !0.83 ! ! ! + +-------- +-------+-------+---- --+ +------ + !Dist CCA !84.06 !12.79 ! !0.85 ! ! ! + +-------- +-------+-------+---- --+ +------ + !Prox ICA !187.61 !45.04 ! !0.76 ! ! ! + +-------- +-------+-------+---- --+ +------ + !Mid ICA !161.69 !22.36 ! !0.86 ! ! ! + +-------- +-------+-------+---- --+ +------ + !Dist ICA !129.88 !18.36 ! !0.86 ! ! ! + +-------- +-------+-------+---- --+ +------ + !Prox ECA !95.03 !9.06 ! !0.9 ! ! ! + +-------- +-------+-------+---- --+ +------ + !Vertebral !58.2 !10.24 ! !0.82 ! ! ! + +-------- +-------+-------+---- --+ +------ + - There is antegrade vertebral flow noted on the right side. - Additional Measurements:ICAPSV/C CAPSV 1.9.ICAEDV/CCAEDV 3.13. Carotid Left Measurements + +-------- +-------+-------+---- --+ +------ + !Location !PSV !EDV !Angle !RI !%Stenosis !Tortuosity ! + +-------- +-------+-------+---- --+ +------ + !Prox CCA !88.66 !17.57 ! !0.8 ! ! ! + +-------- +-------+-------+---- --+ +------ + !Mid CCA !84.71 !19.55 ! !0.77 ! ! ! + +-------- +-------+-------+---- --+ +------ + !Dist CCA !88.66 !13.62 ! !0.85 ! ! ! + +-------- +-------+-------+---- --+ +------ + !Prox ICA !153.1 !32.3 ! !0.79 ! ! ! + +-------- +-------+-------+---- --+ +------ + !Mid ICA !66.08 !15.99 ! !0.76 ! ! ! + +-------- +-------+-------+---- --+ +------ + !Dist ICA !85.68 !22.51 ! !0.74 ! ! ! + +-------- +-------+-------+---- --+ +------ + !Prox ECA !110.21 !13.6 ! !0.88 ! ! ! + +-------- +-------+-------+---- --+ +------ + !Vertebral !62.9 !13.6 ! !0.78 ! ! ! + +-------- +-------+-------+---- --+ +------ + - There is antegrade vertebral flow noted on the left side. - Additional Measurements:ICAPSV/C CAPSV 1.73.ICAEDV/CCAEDV 1.84. [facility] [place], [place] Kenneth, pn Incoming Cardio Results From [facility]/ - 08/25/2019 2:01 PM EDT [facility] Vascular Carotid Procedure Patient Name FILI Date of Study 08/25/2019 FAITH Lombardo Date of 1945 Gender Male Age 74 year(s) Race Room Number US Corporate ID [id number] # Patient Acct [id number] # MR # [id number] Guitar Repair Technician MICHELLE Toscano Danelle Interpreting Physician Anusha Lopez Referring Candace Giron Referring Physician Nurse WOOD LATHER Practitioner Procedure Type of Study: Cerebral: Carotid, [...] bilaterally. Antegrade flow in the vertebrals. Signature - - - - Findings: Right Impression: Left Impression: There are [...] measured in cm Carotid Right Measurements + +-------- +-------+-------+---- --+ +------ + !Location !PSV !EDV !Angle !RI !%Stenosis !Tortuosity ! + +-------- +-------+-------+---- --+ +------ + !Prox CCA !98.63 !14.41 ! !0.85 ! ! ! + +-------- +-------+-------+---- --+ +------ + !Mid CCA !95.39 !16.03 ! !0.83 ! ! ! + +-------- +-------+-------+---- --+ +------ + !Dist CCA !84.06 !12.79 ! !0.85 ! ! ! + +-------- +-------+-------+---- --+ +------ + !Prox ICA !187.61 !45.04 ! !0.76 ! ! ! + +-------- +-------+-------+---- --+ +------ + !Mid ICA !161.69 !22.36 ! !0.86 ! ! ! + +-------- +-------+-------+---- --+ +------ + !Dist ICA !129.88 !18.36 ! !0.86 ! ! ! + +-------- +-------+-------+---- --+ +------ + !Prox ECA !95.03 !9.06 ! !0.9 ! ! ! + +-------- +-------+-------+---- --+ +------ + !Vertebral !58.2 !10.24 ! !0.82 ! ! ! + +-------- +-------+-------+---- --+ +------ + - There is antegrade vertebral flow noted on the right side. - Additional Measurements:ICAPSV/C CAPSV 1.9.ICAEDV/CCAEDV 3.13. Carotid Left Measurements + +-------- +-------+-------+---- --+ +------ + !Location !PSV !EDV !Angle !RI !%Stenosis !Tortuosity ! + +-------- +-------+-------+---- --+ +------ + !Prox CCA !88.66 !17.57 ! !0.8 ! ! ! + +-------- +-------+-------+---- --+ +------ + !Mid CCA !84.71 !19.55 ! !0.77 ! ! ! + +-------- +-------+-------+---- --+ +------ + !Dist CCA !88.66 !13.62 ! !0.85 ! ! ! + +-------- +-------+-------+---- --+ +------ + !Prox ICA !153.1 !32.3 ! !0.79 ! ! ! + +-------- +-------+-------+---- --+ +------ + !Mid ICA !66.08 !15.99 ! !0.76 ! ! ! + +-------- +-------+-------+---- --+ +------ + !Dist ICA !85.68 !22.51 ! !0.74 ! ! ! + +-------- +-------+-------+---- --+ +------ + !Prox ECA !110.21 !13.6 ! !0.88 ! ! ! + +-------- +-------+-------+---- --+ +------ + !Vertebral !62.9 !13.6 ! !0.78 ! ! ! + +-------- +-------+-------+---- --+ +------ + - There is antegrade vertebral flow noted on the left side. - Additional Measurements:ICAPSV/C CAPSV 1.73.ICAEDV/CCAEDV 1.84. [facility] [place] Vitamin B12 & Folateon 08-24 Cobalamin (Vitamin B12) [Mass/Vol] 944 pg/mL 232 - 1245 pg/mL [place] Folate >20.0 >4.8 ng/mL [place] Vital Signs Date Time Vital Sign Value Performing Clinician Facility 11-30-2024 09:46-0400 Body height 185.4 cm Dafne Al ACTIMIZE ARCHITECT Work Phone: [facility] 11-30-2024 09:46-0400 Body mass index (BMI) [Ratio] 24.01 kg/m2 Dafne Al ACTIMIZE ARCHITECT Work Phone: [facility] 11-30-2024 09:46-0400 Body weight 82.56 kg Dafne Al [employer]IMIZE ARCHITECT Work Phone: [facility] 11-30-2024 09:46-0400 Diastolic blood pressure 60 mm[Hg] Dafne Al ACTIMIZE ARCHITECT Work Phone: [facility] 11-30-2024 09:46-0400 Systolic blood pressure 118 mm[Hg] Dafne Al ACTIMIZE ARCHITECT Work Phone: [facility] 08-05-2024 14:30-0500 Blood Pressure Location Humaira Orzech [facility] 08-05-2024 14:30-0500 Diastolic blood pressure 90 mm[Hg] Humaira Orzech [facility] 08-05-2024 14:30-0500 Heart rate 69 /min Humaira Orzech [facility] 08-05-2024 14:30-0500 Respiratory rate 16 /min Humaira Orzech [facility] 08-05-2024 14:30-0500 Systolic blood pressure 152 mm[Hg] Humaira Orzech [facility] 01-27-2024 10:33-0400 Blood Pressure Location Chintan GRACIA [facility] 01-27-2024 10:33-0400 Diastolic blood pressure 71 mm[Hg] Chintan GRACIA [facility] 01-27-2024 10:33-0400 Heart rate 81 /min Chintan GRACIA [facility] 01-27-2024 10:33-0400 Systolic blood pressure 116 mm[Hg] Chintan GRACIA [facility] 01-11-2024 11:08-0400 Blood Pressure Location Humaira Orzech [facility] 01-11-2024 11:08-0400 Body temperature 96.8 [degF] Humaira Orzech [facility] 01-11-2024 11:08-0400 Diastolic blood pressure 72 mm[Hg] Humaira Orzech [facility] 01-11-2024 11:08-0400 Heart rate 70 /min Humaira Orzech [facility] 01-11-2024 11:08-0400 Systolic blood pressure 128 mm[Hg] Humaira Orzech [facility] 12-31-2023 09:24-0400 Blood Pressure Location Makayla Galea [facility] 12-31-2023 09:24-0400 Diastolic blood pressure 76 mm[Hg] Makayla Galea [facility] 12-31-2023 09:24-0400 Heart rate 72 /min Makayla Galea [facility] 12-31-2023 09:24-0400 Respiratory rate 16 /min Makayla Galea [facility] 12-31-2023 09:24-0400 Systolic blood pressure 124 mm[Hg] Makayla Galea [facility] 06-06-2023 19:37-0500 Body temperature 99.2 [degF] GRAY TENDERAlexandra Giron Work Phone: [facility] 06-06-2023 19:37-0500 Diastolic blood pressure 82 mm[Hg] GRAY TENDERAlexandra Giron Work Phone: [facility] 06-06-2023 19:37-0500 Heart rate 76 /min GRAY TENDERAlexandra Giron Work Phone: [facility] 06-06-2023 19:37-0500 Respiratory rate 22 /min GRAY TENDERAlexandra Giron Work Phone: [facility] 06-06-2023 19:37-0500 SaO2% (BldA) [Mass fraction] 99 % GRAY TENDERAlexandra Giron Work Phone: [facility] 06-06-2023 19:37-0500 Systolic blood pressure 179 mm[Hg] GRAY TENDERAlexandra Giron Work Phone: [facility] 06-06-2023 14:59-0500 Body height 185.42 cm GRAY TENDERAlexandra Giron Work Phone: [facility] 06-06-2023 14:59-0500 Body weight 84.7 kg GRAY TENDERAlexandra Rubalcava Bree Work Phone: [facility] 01-07-2023 10:31-0400 Diastolic blood pressure 118 mm[Hg] Chintan GRACIA [facility] 01-07-2023 10:31-0400 Heart rate 87 /min Chintan GRACIA [facility] 01-07-2023 10:31-0400 Systolic blood pressure 157 mm[Hg] Chintan GRACIA [facility] 04-15-2022 09:28-0500 Diastolic blood pressure 77 mm[Hg] GRAY TENDERAlexandra Giron Work Phone: [facility] 04-15-2022 09:28-0500 Heart rate 58 /min GRAY TENDER Candace Giron Work Phone: [facility] 04-15-2022 09:28-0500 Respiratory rate 18 /min GRAY TENDERAlexandra Rubalcava Bree Work Phone: [facility] 04-15-2022 09:28-0500 SaO2% (BldA) [Mass fraction] 100 % GRAY TENDERAlexandra Rubalcava Bree Work Phone: [facility] 04-15-2022 09:28-0500 Systolic blood pressure 125 mm[Hg] GRAY TENDERAlexandra Giron Work Phone: [facility] 04-15-2022 07:33-0500 Body height 185.42 cm GRAY TENDERAlexandra Giron Work Phone: [phone] [place] [address] 04-15-2022 07:33-0500 Body temperature 97.9 [degF] GRAY TENDERAlexandra Giron Work Phone: [facility] 04-15-2022 07:33-0500 Body weight 79.37 kg GRAY TENDERAlexandra Giron Work Phone: [facility] 01-13-2022 10:01-0400 Blood Pressure Location Chintan GRACIA [facility] 01-13-2022 10:01-0400 Diastolic blood pressure 83 mm[Hg] Chintan GRACIA [facility] 01-13-2022 10:01-0400 Heart rate 81 /min Chintan GRACIA [facility] 01-13-2022 10:01-0400 Respiratory rate 16 /min Chintan [employer] [facility] 01-13-2022 10:01-0400 Systolic blood pressure 129 mm[Hg] Chintan [employer] [facility] Encounters Encounter Date Encounter Type Care Provider Facility Start: 08-04-2025 ambulatory Humaira X Orzech Facilit y:[facility] [place] Start: 01-05-2025 End: 01-05-2025 Telephone encounter Dafne Melendez ACTIMIZE ARCHITECT Work Phone: [facility] Start: 11-30-2024 End: 11-30-2024 Bamboo flowsheet Dafne Melendez ACTIMIZE ARCHITECT Work Phone: [facility] Start: 11-30-2024 End: 11-30-2024 Bamboo flowsheet Dafne Grupo Melendez ACTIMIZE ARCHITECT Work Phone: [facility] Start: 11-30-2024 End: 11-30-2024 ambulatory DAFNE MELENDEZ Not Available Start: 11-30-2024 End: 11-30-2024 Office outpatient visit 25 minutes Dafne Melendez ACTIMIZE ARCHITECT Work Phone: [facility] Comment on above: Late onset Alzheimer 's disease with behavioral disturbance (HCC) (Primary Dx) Start: 11-14-2024 End: 11-14-2024 Transcribe Orders Candace Medina Bree WOOD LATHER Work Phone: [facility] Comment on above: Behavioral and psych ological symptoms of dementia (HCC) (Primary Dx); Mild cognitive impairment; Major depressive disorder, recurrent, moderate (HCC) Start: 08-15-2024 End: [facility] Start: 08-15-2024 End: 08-15-2024 Subsequent hospital visit by physician Candace Giron 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 Phone: [facility] Comment on above: 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); Acquired hypothyroidism; Primary hypertension; Outbursts of explosive behavior; Mixed hyperlipidemia; Dysuria Start: 08-09-2024 End: 08-09-2024 ambulatory EH[facility] Start: 08-05-2024 End: 08-05-2024 ambulatory Humaira X Orzech Facility:[facility] Start: 08-05-2024 End: 08-05-2024 Patient encounter procedure Humaira X Orzech [facility] Start: 07-11-2024 End: 07-11-2024 Refill Nayla GUZMAN Work Phone: [facility] Comment on above: Other amnesia Start: 06-08-2024 End: 06-14-2024 Refill Malou GUZMAN Work Phone: [facility] Comment on above: Other amnesia Start: 05-16-2024 End: 05-16-2024 ambulatory [facility] Start: 05-16-2024 End: 05-16-2024 Subsequent hospital visit by physician Candace Giron 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 Phone: [facility] Comment on above: Mixed hyperlipidemia ; Mild cognitive impairment; IFG (impaired fasting glucose); Primary hypertension; Prostate cancer screening Start: 01-27-2024 End: 01-27-2024 ambulatory CANDACE GIRON Facility:[facility] Start: 01-27-2024 End: 01-27-2024 Patient encounter procedure Chintan GRACIA [facility] [place] Start: 01-11-2024 End: 01-11-2024 ambulatory Humaira X Orzech Facility: [facility] Start: 01-11-2024 End: 01-11-2024 Patient encounter procedure Humaira X Orzech [facility] Start: 01-06-2024 ambulatory Makayla J Galea Facility :[facility] Start: 01-02-2024 End: 01-02-2024 ambulatory Charles Peguero Julio Facility:[id number] Start: 12-31-2023 End: 12-31-2023 ambulatory Makayla J Galea Facility:[facility] Start: 12-31-2023 End: 12-31-2023 Patient encounter procedure Makayla J Galea [facility] Start: 12-30-2023 End: 12-30-2023 Evaluation and management of inpatient JARETHSTEPHANIE RUSSELL [facility] Start: 12-29-2023 End: 12-30-2023 Evaluation and management of inpatient CARLOS MANUEL [facility] Start: 12-21-2023 End: 12-21-2023 Evaluation and management of inpatient CANDACE Medina [facility] Start: 12-02-2023 End: 12-04-2023 ambulatory [facility] Start: 12-01-2023 End: 12-01-2023 ambulatory CANDACE Carol LOR[facility] Start: 11-16-2023 End: 11-16-[address] [facility] Start: 11-16-2023 End: 11-16-2023 Encounter for other [facility]procedural examination [facility] [place] Start: 11-12-2023 End: 11-12-2023 ambulatory [facility] Start: 10-31-2023 ambulatory [facility] Start: 06-06-2023 End: 06-06-2023 Emergency department patient visit PORTER Giron Work Phone: [facility] Work Phone: Start: 01-07-2023 End: 01-07-2023 Patient encounter procedure Chintan GRACIA [facility] [place] Start: 08-26-2022 End: 08-26-2022 Patient encounter procedure Chintan GRACIA [facility] [place] Start: 08-12-2022 End: 08-13-[address] MORE TRAORE Facility:[facility] Start: 04-21-2022 End: 04-21-2022 Subsequent hospital visit by physician Candace Giron APRN - [facility] Work Phone: [facility] Comment on above: Mixed hyperlipidemia ; Bilateral carotid artery stenosis; Essential hypertension; History of alcoholism (HCC); Primary hypertension Start: 04-15-2022 End: 04-15-2022 Admission to same day surgery center PORTER Giron Work Phone: [facility] Start: 04-15-2022 End: 04-15-2022 ambulatory PORTER Giron Work Phone: [facility] Work Phone: Start: 04-11-2022 End: 04-11-2022 ambulatory PORTER Giron Work Phone: [facility] Work Phone: Start: 04-11-2022 End: 04-11-2022 Patient encounter procedure PORTER Giron Work Phone: [id number] Start: 03-13-2022 End: 03-15-2022 Subsequent hospital visit by physician Brian [facility] Comment on above: Fall, initial encoun ter Start: 01-13-2022 End: 01-13-2022 Patient encounter procedure Chintan oM KATHY [facility] Start: 11-11-2021 End: 11-13-2021 Subsequent hospital visit by physician [facility] Comment on above: Fall, initial encoun ter; Acute midline low back pain without sciatica Start: 06-25-2021 End: 06-26-2021 Evaluation and management of inpatient PHYSICIAN UNKNOWN Facility:[facility] Start: 03-28-2021 End: 03-30-2021 Subsequent hospital visit by physician Brian [facility] Comment on above: Dizziness; Mild alcohol use disorder, in controlled environment; Bilateral carotid artery stenosis; Short-term memory loss Start: 10-22-2020 End: 10-22-2020 Subsequent hospital visit by physician Candace Giron 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 Phone: [facility] Comment on above: Prostate cancer scre ening; Mixed hyperlipidemia; Essential hypertension; Thyroid disorder screening Start: 08-25-2019 End: 08-27-2019 Subsequent hospital visit by physician Tracy Vas Us [facility] Comment on above: Dizziness; Smooth tongue; Screening for thyroid disorder; Essential hypertension; Pure hypercholesterolemia; Prostate cancer screening Dizziness; Essential hypertension Start: 08-22-2019 End: 08-22-2019 Subsequent hospital visit by physician [facility] Ekg [facility] Comment on above: Dizziness; Essential hypertension; Pure hypercholesterolemia Dizziness Procedures Date Procedure Procedure Detail Performing Clinician Start: 08-15-2024 Comprehensive metabo lic panel Candace Giron 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 Phone: Start: 08-15-2024 HEAVY METAL BLOOD PANEL Candace Giron 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 Phone: Start: 03-10-2025 T. PALLIDUM AB Candace Giron 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 Phone: Start: 08-15-2024 Urinalysis microscopic only Candace Giron 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 Phone: Start: 08-15-2024 Urnls dip stick/tabl et rgnt auto w/o microscopy Candace Giron 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 Phone: Start: 08-15-2024 VITAMIN B12 & FOLATE Magalie Bates Bree 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 Phone: Start: 05-16-2024 Comprehensive metabo lic panel Candace Medina Bree 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 Phone: Start: 05-16-2024 Lipid panel Candace Medina Raheem cadena 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 Phone: Start: 12-29-2023 Carotid endarterectomy Makayla Galea Start: 06-06-2023 Plain chest X-ray GRAY TENDER Candace Bree Work Phone: Start: 04-21-2022 Basic metabolic pane l calcium total Candace Medina Bree 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 Phone: Start: 04-21-2022 Lipid panel Candace Medina Raheem cadena 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 Phone: Start: 04-21-2022 PATIENT FASTING? Candace Medina Bree 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 Phone: Start: 04-15-2022 Colonoscopy GRAY TENDER Candace Bree Work Phone: Start: 03-13-2022 Radex facial bones c omplete minimum 3 views [facility] 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 Phone: Start: 11-11-2021 Radex spine lumbosac ral minimum 4 views Candace Medina Bree 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 Phone: Start: 03-28-2021 Mri brain brain stem w/o contrast material Candace Medina Bree 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 Phone: Start: 10-22-2020 PSA screening Candace valverde 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 Phone: Comment on above: The Nataliya ECLIA as say is used. Results obtained with different assay methods cannot be used interchangeably. Start: 10-22-2020 Basic metabolic pane l calcium total Candace Giron 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 Phone: Start: 10-22-2020 Lipid panel Candace Maciel tammi 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 Phone: Start: 10-22-2020 PATIENT FASTING? Candace Giron 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 Phone: Start: 06-08-2020 Procedure on artery Paolo GRACIA Comment on above: carotid artery Start: [...] 08-05-2018 Cystoscopy Makayla Gal ea Colonoscopy Chintan GRACIA SARS Antigen (LFIA) GRAY TENDER Flora Giron Work Phone: Structure of bursa ( body structure) Chintan GRACIA Tonsillectomy Chintan GRACIA Plan of Treatment Date Care Activity Detail Author Start: 07-01-2027 DTaP/Tdap/Td vaccine (3 - Td or Tdap) DTaP/Tdap/Td vaccine (3 - Td or Tdap) [facility] Start: 05-17-2025 Annual Wellness Visit (Medicare) Annual Wellness Visit (Medicare) [facility] Start: 05-16-2025 Depression Monitoring Depression Monitoring [facility] Start: 05-16-2025 Lipid panel Lipids [facility] Start: 02-14-2025 End: 02-14-2025 Patient encounter procedure 02/14/2025 2:15 PM EDT Office Visit [facility] [address] [place] [id number] Ted Putnam DO [address] [place] [address] [facility] Start: 02-06-2025 Influenza vaccination Influenza Vaccine (#1) [facility] Start: 01-18-2025 End: 01-18-2025 Patient encounter procedure 01/18/2025 3:30 PM EDT Office Visit [facility] [address] [phone] Dafne Melendez, ACTIMIZE ARCHITECT [address], 08 [address] [address] [facility] Start: 01-16-2025 End: 01-16-2025 Patient encounter procedure 01/16/2025 10:00 AM EDT Office Visit [facility] [address] [place] [address] Dafne Melendez, ACTIMIZE ARCHITECT 5319 Viri Reich, [address] [address] [facility] Start: 08-15-2024 COVID-19 Vaccine ( season) COVID-19 Vaccine ( season) [facility] Start: 08-15-2024 End: 08-15-2024 Patient encounter procedure 08/15/2024 9:20 AM EDT Office Visit [facility] [address] [place] [address] Candace Giron, 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 [address] [place] [address] 3 mon check [facility] Comment on above: 3 mon check Start: 06-17-2024 COVID-19 Vaccine ( season) COVID-19 Vaccine ( season) [facility] Start: 02-07-2024 Influenza vaccination Influenza Vaccine (#1) [facility] Start: 12-15-2023 DTaP/Tdap/Td vaccine (2 - Td or Tdap) DTaP/Tdap/Td vaccine (2 - Td or Tdap) [facility] Start: 12-15-2023 DTaP/Tdap/Td vaccine (2 - Td) DTaP/Tdap/Td vaccine (2 - Td) [place] Start: 04-27-2023 End: 04-27-2023 Patient encounter procedure 04/27/2023 Office Visit Family Medicine Candace Giron, 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 [address] [place] [address] [facility] Start: 04-22-2023 Annual Wellness Visit (AWV) Annual Wellness Visit (AWV) [facility] Start: 04-21-2023 Lipid panel Lipids [facility] Start: 11-11-2022 Depression Screen Depression Screen [facility] Start: 11-11-2022 Lipid panel Lipids [facility] Start: 10-20-2022 End: 10-20-2022 Patient encounter procedure 10/20/2022 Office Visit Family Candace Artis, 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 [address] [place] [address] [facility] Start: 04-29-2022 COVID-19 Vaccine (4 - Booster for Pfizer series) COVID-19 Vaccine (4 - Booster for Pfizer series) [facility] [employer] Start: 04-15-2022 [facility] Start: 01-06-2022 Influenza vaccination Flu vaccine (#1) [facility] [employer] Start: 12-02-2021 End: 12-02-2021 Patient encounter procedure 12/02/2021 Office Visit Family Candace Artis, 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 [address] [place] [address] [facility] Start: 10-28-2021 End: 10-28-2021 Patient encounter procedure 10/28/2021 Office Visit Family Candace Artis, 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 [address] [phone] [facility] Start: 10-23-2021 Annual Wellness Visit (AWV) Annual Wellness Visit (AWV) [facility] [employer] Start: 10-22-2021 Creatinine measurement Creatinine monitoring [employer] Phone: Start: 10-22-2021 Lipid panel Lipid screen [employer] Phone: Start: 10-22-2021 Potassium monitoring Potassium monitoring [employer] Phone: Start: 09-06-2021 Colon cancer screen colonoscopy [facility] [place] Start: 09-06-2021 Screening for malignant neoplasm of colon Colon cancer screen colonoscopy [employer] Phone: Start: 08-05-2021 COVID-19 Vaccine (3 - Booster for Pfizer series) COVID-19 Vaccine (3 - Booster for Pfizer series) [facility] [employer] Start: 04-29-2021 End: 04-29-2021 Patient encounter procedure 04/29/2021 Office Visit Candace Walker, 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 [address] [phone] [facility] Start: 02-06-2021 Influenza vaccination [facility] Phone: Start: 08-24-2020 Creatinine monitoring Creatinine monitoring [place], [place] Start: 08-24-2020 Lipid screen Lipid screen [place] Start: 08-24-2020 Potassium monitoring Potassium monitoring [place] Start: 08-17-2020 COVID-19 Vaccine (2 - Pfizer 2-dose series) COVID-19 Vaccine (2 - Pfizer 2-dose series) [facility] [facility] Phone: Start: 09-05-2019 End: 09-05-2019 Office Visit 09/05/2019 Office Visit Family Medicine Candace Giron, 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 [address] [place], [place] [id number] [phone] [facility] Start: 08-25-2019 End: 08-25-2019 Appointment 08/25/2019 Appointment Vascular Lab [facility] Start: 04-25-2019 Creatinine monitoring Creatinine monitoring [place] Start: 04-25-2019 Lipid screen Lipid screen [place] Start: 04-25-2019 Potassium monitoring Potassium monitoring [place] Start: 04-14-2019 Pneumococcal 65+ years Vaccine (2 of 2 - PPSV23) Pneumococcal 65+ years Vaccine (2 of 2 - PPSV23) [place] Start: 02-06-2019 Influenza vaccination Flu vaccine (#1) [place] Start: 11-24-2018 Annual Wellness Visit (AWV) Annual Wellness Visit (AWV) [place] Start: 01-01-2017 Pneumococcal 65+ years Vaccine (2 - PPSV23 or PCV20) Pneumococcal 65+ years Vaccine (2 - PPSV23 or PCV20) [facility] [employer] [facility] EKG 12 Lead EKG 12 Lead ECG Routine Dizziness Essential hypertension Pure hypercholesterolemia 08/22/2019 2:07 PM EDT [place] Heavy Metal Blood Panel Heavy Metal Blood Panel Lab Routine Moderate vascular dementia with agitation (HCC) 08/15/2024 10:41 AM EDT [facility] End: 08-22-2019 Holter Monitor 48 Hour Holter Monitor 48 Hour Cardiac Services Routine Dizziness 1 Occurrences starting 08/22/2019 until 08/22/2019 [facility], [place] Comment on above: 1 Occurrences starting 08/22/2019 until 08/22/2019 Patient Education [facility]/OP COV ID-19 Discharge Instructions [facility] Work Phone: Patient referral [facility] Work Phone: Immunizations Immunization Date Immunization Notes Care Provider Anabel miller 04-22-2024 influenza virus vacc ine, unspecified formulation [employer] [facility] 04-07-2023 influenza virus vacc ine, unspecified formulation [employer] [facility] Comment on above: Result Comment: 2023: VIS DATE: 01/11/2021 04-07-2023 Influenza, FLUAD, (a ge 65 y+), IM, Quadv, 0.5mL Gruvi GRAY TENDER - [employer] Work Phone: [id number] 04-21-2022 pneumococcal polysaccharide vaccine, 23 valent [employer] Work Phone: [employer] Work Phone: Comment on above: Result Comment: 2022: VIS DATE: 04/06/2019 03-27-2022 influenza virus vacc ine, unspecified formulation Chintan GRACIA [facility] 03-27-2022 Influenza, FLUZONE ( age 65 y+), High Dose, 0.7mL [employer] 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 [facility]: [facility] 03-27-2022 SARS-CoV-2 (COVID-19 ) [id number] Chintan KATHY [facility] 12-27-2021 SARS-CoV-2 mRNA (jfqrpsykdma-sdat-evbqek e) vaccine Chintan [employer] [facility] 04-01-2021 influenza virus vacc ine, unspecified formulation Chintan [employer] [facility] Comment on above: Result Comment: 2022: VIS DATE: 01/11/2021 04-01-2021 Influenza, Quadv, adjuvanted, 65 yrs +, IM, PF (Fluad) [facility] Work Phone: 03-05-2021 SARS-CoV-2 (COVID-19 ) mRNA BNT-162b2 vax Chintan [employer] [facility] Comment on above: Result Comment: 2022: [id number] 07-27-2020 COVID-19, Pfizer, PF , 30mcg/0.3mL Candacerandal Giron 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 Phone: [employer] Work Phone: 07-06-2020 SARS-CoV-2 (COVID-19 ) mRNA BNT-162 vax [employer] [facility] Comment on above: Result Comment: 2022: [id number] 03-26-2020 influenza virus vacc ine, unspecified formulation [employer] [facility] 04-12-2019 influenza virus vacc ine, unspecified formulation [employer] [facility] 09-08-2018 zoster vaccine recombinant Candace Giron [facility] 06-30-2018 zoster vaccine recombinant Candace Bree [facility] 04-20-2018 influenza virus vacc ine, unspecified formulation [employer]an[employer] [facility] 04-20-2018 influenza, high dose seasonal, preservative-free Candacerandal Giron [facility] 01-02-2016 pneumococcal conjuga te vaccine, 13 valent Candcae [place] 05-10-2015 influenza virus vacc ine, unspecified formulation Chintan GRACIA [facility] 05-10-2015 influenza virus vacc ine, whole virus [facility], [place] 04-14-2014 pneumococcal conjuga te vaccine, 7 valent Candace [facility] 04-14-2014 pneumococcal polysaccharide vaccine, 23 valent Candace [facility] 12-14-2013 tetanus toxoid, redu siva diphtheria toxoid, and acellular pertussis vaccine, adsorbed [facility] 10-03-2013 zoster vaccine, live [place], [place] Payers Date Payer Category Payer Self-pay [id number] 2023 Managed Care (unspecified) [facility] [id number] 2023 Private Health Insurance [id number] 2023 Unknown [id number] 2014 Medicare MEDICARE RAILROA D MEDICARE xxxxxxxxxxx 2014-Present [phone] [place] [address] xxxxxxxxxxx [id number] 2014 Unknown [employer] RES[employer]E NATIONAL [id number] 2014-Present [address] [address] [place] [address] [id number]. [id number] 2014 Unknown [place] [employer] RESERVE [facility] [id number] 2014-Present [address] [address] [place] [address] [id number]. 7.3.166489.315 2010 Medicare [id number] 1.13.693.2. [id number] 1959 Medicare [id number] 1.2.840.394511.1.13.239.2. 7.3.105014.315 1959 Unknown [id number] 1.2.840.194181.1.13.239.2. 7.3.928207.315 1945 Unknown [id number] 2.16.840.1.159163.3.579.2. 647 1945 Unknown [id number] 2.16.840.1.191310.3.579.2. 593 1945 Unknown [id number] 2.16.840.1.012976.3.579.2. 1286 1945 Unknown [id number] 2.16.840.1.356435.3.579.2. 1286 1945 Unknown [id number] 2.16.840.1.790515.3.579.2. 1286 1945 Unknown [id number] 2.16.840.1.432562.3.579.2. 1286 1945 Unknown [id number] 2.16.840.1.349091.3.579.2. 128 1945 Unknown [id number] 2.16.840.1.716736.3.579.2. 1286 1945 Unknown [id number] 2.16.840.1.241852.3.579.2. 727 1945 Unknown [id number] 2.16.840.1.132054.3.579.2. 727 1945 Unknown [id number] 2.16.840.1.930270.3.579.2. 72 1945 Unknown [id number] 2.16.840.1.806092.3.579.2. 72 1945 Unknown [id number] 2.16.840.1.106041.3.579.2. 72 1945 Unknown [id number] 2.16.840.1.028948.3.579.2. 72 1945 Unknown [id number] 2.16.840.1.839394.3.579.2. 72 1945 Unknown [id number] 2.16.840.1.305205.3.579.2. 174 1945 Unknown [id number] 2.16.840.1.078196.3.579.2. 174 1945 Unknown [id number] 2.16.840.1.801214.3.579.2. 174 1945 Unknown [id number] 2.16.840.1.545911.3.579.2. 174 1945 Unknown [id number] 2.16.840.1.208862.3.579.2. 1259 Medicare Medicare Outpatient [id number] 7A [id number] Unknown Regular Insurance [id number] Unknown [id number] 2.16.840.1.186887.3.579.2. 531 Social History Date Type Detail Facility Start: 08-22-2019 End: 11-30-2024 Tobacco smoking status NHIS Former smoker [place] History of tobacco use Pipe Smoker [place] Start: 08-22-2019 End: 04-21-2022 Alcohol intake Current drinker of alcohol (finding) [place] Start: 08-22-2019 End: 11-11-2021 History SDOH Food Worry 1 [place] Start: 08-22-2019 End: 04-21-2022 History SDOH Transport Med 2 [place] Start: 11-11-2012 Alcohol Comment daily/wine [place], [place] Start: 1945 Sex Assigned At Not on file M [place] Start: 10-22-2020 End: 04-07-2023 Tobacco use and exposure Never used [employer] Start: 10-22-2020 End: 11-30-2024 [facility] Phone: Start: 10-22-2020 End: 11-11-2021 History SDOH Financial 5 [facility] Phone: Tobacco smoking status Never [facility] Start: 05-16-2024 End: 11-30-2024 Sex Assigned At Male [facility] History of tobacco use Current smoker [facility] [employer] Work Phone: History of tobacco use Cigarette Smoker B [place] [employer] Work Phone: Start: 03-13-2020 End: 04-07-2023 Tobacco smoking status NHIS Never smoked tobacco (finding) [facility] Start: 1945 Sex Assigned At Male F [facility] Start: 04-21-2022 History SDOH Physica l Activity DPW 6 [employer] Work Phone: Start: 04-21-2022 History SDOH Physica l Activity MPS 4 [employer] Work Phone: History of tobacco use Passive smoker [employer] Start: 05-16-2024 End: 11-30-2024 Alcoholic beverage intake Ex-drinker (finding) [employer] How often to you hav e a drink containing alcohol? Monthly or less [employer] How many standard drinks containing alcohol do you have on a typical day? 1 or 2 [employer] How often do you hav e 6 or more drinks on 1 occasion? Less than monthly [employer] (I/We) worried whejoel er (my/our) food would run out before (I/we) got money to buy more. Never true [employer] Start: 04-07-2023 Alcoholic beverage intake Lifetime non-drinker (finding) [facility] Has the [employer], [employer] Fourth, oil, or water company threatened to shut off services in your home in past 12Mo No [employer] Start: 07-18-2012 Sex Male (finding) [facility]ar [facility] consumption [facility] History of tobacco use Cigar Smoker [facility] Start: 11-30-2024 Tobacco use and exposure Former smokeless tobacco user [facility] Start: 11-30-2024 Alcohol Comment no alcohol for 3 thu [facility] Medical Equipment Procedure Code Equipment Code Equipment Origin al Text Equipment Identifier Dates Repair, hernia, inguinal, with mesh [id number] FDA Start: 03-13-2020 Repair, hernia, inguinal, with mesh [id number] FDA Start: 03-13-2020 Repair, hernia, inguinal, with mesh [id number] FDA Start: 03-13-2020 Goals Date Patient Goal Desired Activity /State Functional Status Date Assessment Result Facility 08-05-2024 Functional Status N/A [facility] 01-27-2024 Functional Status N/A [facility] 01-11-2024 Functional Status N/A [facility] 12-31-2023 Functional Status N/A [facility] [place] 01-07-2023 Functional Status N/A [facility] 01-13-2022 Functional Status No [facility] Clinical Notes 06-30-2021 to 01-05-2025 Telephone Encounter - Luz Elena Charles - 01/05/2025 3:06 PM EDTTelephone Encounter - Luz Elena Melvin - 01/05/2025 3:06 PM EDPapa Melendez NP - 11/30/2024 9:40 AM EDT Note Date & Type Note Facility 01-05-2025 Telephone encounter Note Pt called today and stated the pt only has enough REXULTI 2 mg medication to last to the and his appt is on Jan 18. 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 CHIEF COMPLAINT REASON FOR VISIT : Transfer from [facility] HPI: MEMORY LOSS -accompanied by and daughter -the patient states no change since his last appt - and daughter state it is worse -is concerned with his agitation and anger towards her, worse -becoming aggressive toward his at times -started on Aricept. No SE -he was started on Seroquel by PCP for agitation. Was changed to zyprexa 3 weeks ago -Zyprexa has made mood worse and he drools a lot with it Still gets agitation times - states that he has no short term memory -he forgets recent conversations, misplacing things -he sleeps well at night -he feels rested in the morning -denies any hallucinations -He does have paranoia -he is not driving -he states he stays busy working, he does not work -no issues with ADLs -eating well as long as his is there, if she is not there he forgets to eat CURRENT MEDICATIONS: ALLERGIES/DISCONTINUE MEDICATIONS Current Outpatient Medications Medication Instructions ASPIRIN 81 PO 1 tablet, Oral, Daily donepezil (ARICEPT) 10 mg, Oral, Nightly donepezil (ARICEPT) 10 mg, Oral, Nightly losartan (Cozaar) 25 MG tablet QUEtiapine (SEROquel) 25 MG tablet TAKE 1 TABLET BY MOUTH AT BEDTIME FOR DYSTHYMIA simvastatin (Zocor) 40 MG tablet tamsulosin (FLOMAX) 0.4 mg, Oral, Daily Allergies Allergen Reactions Ibuprofen Other Reaction(s): HYPERTENSION, increases BP Other reaction(s): HYPERTENSION Nsaids Elevates blood pressure There are no discontinued medications. PAST MEDICAL HISTORY: SURGICAL/SOCIAL/FAMILY HISTORY DEPRESSION SCREEN: Past Medical History: Diagnosis Date Carotid stenosis Depressed HTN (hypertension) Past Surgical History: Procedure Laterality Date ELBOW BURSA SURGERY HERNIA REPAIR TONSILECTOMY, ADENOIDECTOMY, BILATERAL MYRINGOTOMY AND TUBES Social History Tobacco Use Smoking status: Never Smokeless tobacco: Never Substance Use Topics Alcohol use: Never Drug use: Never Family History Problem Relation Name Age of Onset Diabetes Father Stroke Father Depression: Not at risk (08/15/2024) Received from [facility] PHQ-2 PHQ-9 Total Score: 0 REVIEW OF SYMPTOMS: Review of Systems Constitutional: Negative for chills and fatigue. HENT: Negative for congestion. Eyes: Negative for visual disturbance. Respiratory: Positive for choking. Negative for shortness of breath. Cardiovascular: Negative for chest pain and palpitations. Gastrointestinal: Negative for abdominal pain and nausea. Genitourinary: Negative for difficulty urinating. Musculoskeletal: Negative for back pain, myalgias and neck pain. Skin: Negative for rash. Neurological: Negative for dizziness, tremors, weakness and light-headedness. Psychiatric/Behavioral: Positive for agitation, confusion and sleep disturbance. The patient is nervous/anxious. The patient is not hyperactive. OBJECTIVE: 04/07/2023 10:20 AM 09/26/2021 12:00 PM 08/01/2021 12:00 PM Vitals BMI 24.14 kg/m2 24.14 kg/m2 BSA (m2) 2.07 m2 2.07 m2 Systolic 140 116 108 Diastolic 76 72 68 Heart Rate 77 Resp 16 Height (in) 6' 1 6' 1 Weight (lb) 183 183 Visit Report Report EXAM: Neurological Exam Mental Status Awake and alert. Oriented only to person. Recalls 0 of 3 objects immediately. Speech is normal. Language is fluent with no aphasia. Attention and concentration are normal. Fund of knowledge is appropriate for level of education. Cranial Nerves CN II: Visual vivas full to confrontation. CN III, IV, : Extraocular movements intact bilaterally. Normal lids and orbits bilaterally. Pupils equal round and reactive to light bilaterally. CN V: Facial sensation is normal. CN VII: Full and symmetric facial movement. CN VIII: Hearing is normal. CN IX, X: Palate elevates symmetrically. Normal gag reflex. CN XI: Shoulder shrug strength is normal. CN XII: Tongue midline without atrophy or fasciculations. Motor Strength is 5/5 throughout all four extremities. Sensory Light touch is normal in upper and lower extremities. Temperature is normal in upper and lower extremities. Vibration is normal in upper and lower extremities. Reflexes Right Left Brachioradialis 2+ 2+ Biceps 2+ 2+ Triceps 2+ 2+ Patellar 2+ 2+ Coordination Right: Ciztae-au-enrt normal. Rapid alternating movement normal.Left: Qtfzaw-hl-yzdv normal. Rapid alternating movement normal. Gait Casual gait is normal including stance, stride, and arm swing. PROCEDURE: NONE ASSESSMENT AND PLAN: EVALUATION: 08/2024 TSH 1.83, B12 717, folate 12, heavy metal panel negative, T Pallidum negative 01/2024 Carotid US < 50% Bilat 11/2023 Echo EF 50-55%, Mildly thickened aortic cusp, left and right atrium mildly dilated, 2020 MRI Brain showed mild atrophy and minimal small vessel ischemic changes 10/2023 MRI Brain showed mild SVID and atrophy 2022 MMSE 10/08/2023 CTA of the head and neck did not show any large vessel occlusion. Mild bilateral ICA stenosis. Moderate stenosis at the origin of the right cervical internal carotid artery with 50 percent or greater. Remainder of the bilateral cervical internal carotid, bilateral common carotid and bilateral vertebral arteries are patent without significant MMSE at PCP office 12/2020 was 24/30. MMSE at PCP office 12/2020 was 24/30 ASSESSMENT: Late Stage Alzhiemer Disease w/Agitation Patient has clinical picture of Alzheimer with behavior including significant agitation. Performs all his ADLs without issues. History of significant chronic alcohol dependence which can cause cognitive issues as well. He has not drank in 3 months. He is on Aricept but did not tolerate Namenda. He continues with agitated mood at times and gets aggresive with his . His PCP has tried him on seroquel and zyprexa with no improvement in behaviors. He is on Trazodone as well. We will trial him on rexulti. He is no longer driving. He has refused to coplete the cognitive testing in the past and I don't think it would change therapy anyway. We have discussed that he may need a memory care unit, especially if he becomes a danger to himself or his . Carotid stenosis Carotid artery stenosis, bilaterally, worse on the left. He denies presyncope. He had endarterectomy with vascular surgeon at [facility]. He had updated carotid ultrasound 10/2022 that revealed right internal carotid artery stenosis is estimated in the 50-69% range. The left carotid endarerectomy is patent, with stenosis estimated less than 50%. He follows with vascualr service. PLAN: Continue Aricet 10mg daily DC zyprexa and trial Rexulti. Titration pack given today Continue trazodone 50mg BID Discussed the possibility that he will likely need memory care at some point I counseled the patient on the possible diagnosis, prognosis, and possible treatment options. I will see the patient back in 6 weeks, or sooner if needed, to make further recommendations Dr Salinas saw the patient in clinic as well Diagnoses and all orders for this visit: 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) documented in this encounter [facility] 08-09-2024 Note [facility] Cardiology Clinic Note Chief Complaint: Patient here for 6 mo follow up hypertension, aortic valve regurgitation, and carotid artery stenosis s/p CEA in Jun 2021. Had echo in November 2023 after last apt, prior to right CEA with Dr. Garcia in December. He was seen as inpatient consult by cardiology for suspicion of heart block. [facility] Had routine labs with lipid panel in May 2024. Patient denies chest pain, SOB, palpitations, and lightheadedness/syncope. HPI: Faith Penn is a 79 y.o. male His accompanied him. Patient here for 1 [...] orthopnea, PND, LE edema, dizziness/LH, palpitations, syncope. UPDATE 11/16/2023: He is doing well from our standpoint; he denies exertional chest pain. He is able to walk a flight of stairs without chest pain or shortness of breath. No orthopnea, no paroxysmal external dyspnea, no lower extremity edema. Since he was last seen, he has suffered transient ischemic attacks and is in need of right carotid endarterectomy. UPDATE 08/09/2024 Doing well; no new cardiovascular symptoms Cardiology ROS: Review of Systems HENT: Positive for hearing loss. All other systems reviewed and are negative. Past Medical History He has a past medical history of Carotid artery stenosis, Hyperlipidemia, Hypertension, and Stroke ([facility] Surgical History He has a past surgical history that includes Tonsillectomy. Social History He has no history on file for tobacco use, alcohol use, and drug use. Family History Family History Problem Relation Name Age of Onset Stroke Father Diabetes Father Allergies Ibuprofen, Namenda [memantine], and Nsaids (non-steroidal anti-inflammatory drug) Medications Current Outpatient Medications: aspirin 81 mg EC tablet, Take 81 mg by mouth in the morning., Disp: , Rfl: clopidogrel (Plavix) 75 mg tablet, Take 1 tablet by mouth in the morning., Disp: , Rfl: donepezil (Aricept) 10 mg tablet, Take 10 mg by mouth at bedtime., Disp: , Rfl: FLUoxetine (PROzac) 40 mg capsule, TAKE 1 CAPSULE BY MOUTH DAILY FOR ANXIETY OR MOOD, Disp: , Rfl: levothyroxine (Synthroid, Levoxyl) 50 mcg tablet, Take 50 mcg by mouth., Disp: , Rfl: losartan (Cozaar) 25 mg tablet, TAKE 1 TABLET(25 MG) BY MOUTH IN THE MORNING, Disp: 90 tablet, Rfl: 3 QUEtiapine (SEROquel) 50 mg tablet, Take 150 mg by mouth 1 (one) time each day. 100mg in the AM, 50mg in the PM, Disp: , Rfl: simvastatin (Zocor) 40 mg tablet, Take 1 tablet (40 mg) by mouth at bedtime., Disp: 90 tablet, Rfl: 3 tamsulosin (Flomax) 0.4 mg 24 hr capsule, , Disp: , Rfl: Last Recorded Vitals BP 120/68 (BP Location: Left arm, Patient Position: Sitting) Pulse 79 Ht 1.854 m (6' 1 ) Wt 84.8 kg (187 lb) SpO2 98% BMI 24.67 kg/m??? Physical Examination: GENERAL: alert and oriented x3, well developed, in no acute distress. HEAD: atraumatic, normocephalic. EYES: FRANKIE, EOMI. NECK: trachea midline, no JVD present, no carotid bruits present. CARDIAC: S1, S2 present. RRR. No murmur, rubs, or gallops. RESPIRATORY: CTAB, no increased effort of breathing, no rales, rhonchi, or wheezing. ABDOMEN: soft, nontender, nondistended. EXTREMITIES: no lower extremity edema, peripheral pulses are 2+ bilaterally. No rash/skin discoloration present. NEURO: strength/sensation equal and symmetric in bilateral upper and lower extremities. PSYCH: appropriate mood, affect, and judgement. Testing/Procedures: CTA neck 04/05/2021 Marked atherosclerotic narrowing of the proximal internal carotid artery left greater than right correlating with recent ultrasound findings Echocardiogram 05/2021 Global left ventricular systolic function is normal; visually estimated ejection fraction is 60 to 65%. Normal diastolic function. The right atrium is mild to moderately dilated. Right ventricle is normal in size and systolic function. Mild aortic regurgitation. The aortic sinuses are normal in size for body surface area. Lexiscan stress test 05/06/2021: Nonischemic Echocardiogram 11/2023 Left Ventricle: Normal left ventricular systolic function with a visually estimated EF of 50 - 55%. Left ventricle size is normal. Moderatel-severe LVH with diastolic dysfunction. Right Ventricle: Right ventricle size is normal. Normal wall thickness. RV ESV is normal. Aortic Valve: Mildly thickened cusp. No aortic stenosis. Mitral Valve: Valve structure is normal. No leaflet thic (more content not included)... [place] 08-05-2024 Hospital Discharge instructions Patient Education 08/05/2024 14:59:31 Benign Prostatic Hyperplasia Benign Prostatic Hyperplasia Benign [...] urethra. Follow these instructions at home: Take snfl-rvd-ughpvwz and prescription medicines only as told by [...] provider. Document Revised: 12/11/2021 Document Reviewed: 12/11/2021 [employer] Patient Education 2023 Art of the Dream. Follow Up Care 07/14/2024 10:18:41 With:DHAVAL Ragsdale APRN, ELIEZER Giraldo, URL Address: When: Unknown [facility] 08-05-2024 Note Patient Education Urology Benign Prostatic Hyperplasia [...] or symptoms? Symptoms of this condition include: ??? Getting up often during the night to urinate. ??? Needing to urinate frequently during the day. ??? Difficulty starting urine flow. ??? Decrease in size and strength of your urine stream. ??? Leaking (dribbling) after urinating. ??? Inability to pass urine. This needs immediate treatment. ??? Inability to completely empty your bladder. ??? Pain when you pass urine. This is more common if there is also an infection. ??? Urinary tract infection (UTI). How is this diagnosed? This condition is diagnosed based on your medical history, a physical exam, and your symptoms. Tests will also be done, such as: ??? A post-void bladder scan. This measures any amount of urine that may remain in your bladder after you finish urinating. ??? A digital rectal exam. In a rectal exam, your health care provider checks your prostate by putting a lubricated, gloved finger into your rectum to feel the back of your prostate gland. This exam detects the size of your gland and any abnormal lumps or growths. ??? An exam of your urine (urinalysis). ??? A prostate specific antigen (PSA) screening. This is a blood test used to screen for prostate cancer. ??? An ultrasound. This test uses sound waves [...] severity of your condition. Treatment may include: ??? Observation and yearly exams. This may be the only treatment needed if your condition and symptoms are mild. ??? Medicines to relieve your symptoms, including: ? Medicines to shrink the prostate. ? Medicines to relax the muscle of the prostate. ??? Surgery in severe cases. Surgery may include: [...] the urethra. Follow these instructions at home: ??? Take lmds-dgr-ghxckyj and prescription medicines only as told by your health care provider. ??? Monitor your symptoms for any changes. Contact your health care provider with any changes. ??? Avoid drinking large amounts of liquid before going to bed or out in public. ??? Avoid or reduce how much caffeine or alcohol you drink. ??? Give yourself time when you urinate. ??? Keep all follow-up visits. This is important. Contact a health care provider if: ??? You have unexplained back pain. ??? Your symptoms do not get (more content not included)... [facility] 07-11-2024 Telephone encounter Note Spoke with Ana at PCP office. She states that PCP did not start med however she did make and adjustment due to pts behaviors. She states that we are to con't medication. [facility] 07-11-2024 Miscellaneous Notes Spoke with Ana at PCP office. She states that PCP did not start med however she did make and adjustment due to pts behaviors. She states that we are to con't medication. I see that there was a follow up question in the last task but it was signed? Not sure if the PCP was ever called on this? documented in this encounter [facility] 07-11-2024 Telephone encounter Note I see that there was a follow up question in the last task but it was signed? Not sure if the PCP was ever called on this? [facility] 06-14-2024 Telephone encounter Note I reviewed his chart. I am able to see PCP notes and it appears that he remains on this as his medications are being adjusted due to aggressive behavior towards his . I will send in a courtesy refill. Are you able to reach out to PCP to see if they would like him to be followed by us as well or would she be willing to send in the future since we are unable to get a hold of him. I know they are going through a lot right now, thanks! [facility] 06-14-2024 Miscellaneous Notes I reviewed his chart. I am able to see PCP notes and it appears that he remains on this as his medications are being adjusted due to aggressive behavior towards his . I will send in a courtesy refill. Are you able to reach out to PCP to see if they would like him to be followed by us as well or would she be willing to send in the future since we are unable to get a hold of him. I know they are going through a lot right now, thanks! LMTCB x 3. Sending letter. Would you like to fill this medication? Please advise. LMTCB x 2 LMTCB X 1 Patient needs an appt before we can send refills. Seen last August documented in this encounter [facility] 06-14-2024 Telephone encounter Note LMTCB x 3. Sending letter. Would you like to fill this medication? Please advise. [facility] 06-13-2024 Telephone encounter Note LMTCB x 2 [facility] 06-09-2024 Telephone encounter Note LMTCB X 1 [facility] 06-09-2024 Telephone encounter Note Patient needs an appt before we can send refills. Seen last August [facility] 01-27-2024 Hospital Discharge instructions Patient Education 01/27/2024 [...] Follow these instructions at home: Medicines Take sdpx-ypg-ledbkgr and prescription medicines only as told by [...] provider. Document Revised: 01/01/2022 Document Reviewed: 01/01/2022 [employer] Patient Education 2022 Art of the Dream. Follow Up Care 01/07/2023 11:09:00 With:KATHY HILL, Chintan Mo, URL Address: [facility] [employer] [address] [address]- When: Unknown [facility] 01-27-2024 Note Patient Education Urology Epididymitis Epididymitis [...] these instructions at home: Medicines ? Take fflw-uau-ocqldeh and prescription medicines only as told by [...] fluid to keep (more content not included)... [facility] 01-11-2024 Hospital Discharge instructions Patient Education [...] that it is safe. General instructions Take ptdy-aik-zlgeayi and prescription medicines only as told by [...] provider. Document Revised: 01/22/2021 Document Reviewed: 01/22/2021 [employer] Patient Education 2022 Art of the Dream. 01/11/2024 11:38:16 Benign Prostatic Hyperplasia Benign Prostatic [...] urethra. Follow these instructions at home: Take udlb-dee-ywqaaab and prescription medicines only as told by [...] provider. Document Revised: 12/11/2021 Document Reviewed: 12/11/2021 [employer] Patient Education 2022 Art of the Dream. Follow Up Care 01/11/2024 08:12:05 With:DHAVAL Ragsdale APRN, ELIEZER Giraldo, URL Address: When: Unknown Comments:Pt to keep follow up on 01/27/24 w/Dr. Gracia [facility] 01-11-2024 Note Patient Education Urology Scrotal Swelling [...] it is safe. General instructions ? Take nhez-njg-ochjrsb and prescription medicines only as told by [...] provider. Document Revised: 01/22/2021 Document Reviewed: 01/22/2021 [employer] Patient Education ? 2022 Art of the Dream. Benign Prostatic Hyperplasia Benign prostatic hyperplasia (BPH) [...] urine flow wi (more content not included)... [facility] 12-31-2023 Hospital Discharge instructions Patient [...] urethra. Follow these instructions at home: Take zxab-zug-pjfxsxs and prescription medicines only as told by [...] provider. Document Revised: 12/11/2021 Document Reviewed: 12/11/2021 [employer] Patient Education 2022 Art of the Dream. Follow Up Care 12/31/2023 08:38:06 With:KATHY HILL, Chintan Mo, URL Address: [address] [place] [address] When: Unknown Comments:Appointment has already been scheduled [facility] 12-31-2023 Note Patient Education Urology Benign Prostatic [...] Follow these instructions at home: ? Take ehao-hhy-xqozpyp and prescription medicines only as told by [...] develop side effec (more content not included)... [facility] 11-16-2023 Note [facility] Cardiology Clinic Note Chief Complaint: Patient here for follow up [facility] for TIA, and was started on Plavix. He is also requesting clearance for surgery with Dr. Garcia. He will be scheduled for right carotid endarterectomy. says BP was >200 systolic while inpatient at [facility]. She says his BP is elevated in the afternoon usually. He denies chest pain, SOB, palpitations, and lightheadedness/syncope. HPI: Faith Penn is a 78 y.o. male His accompanied him. Patient here for 1 [...] orthopnea, PND, LE edema, dizziness/LH, palpitations, syncope. UPDATE 11/16/2023: He is doing well from our standpoint; he denies exertional chest pain. He is able to walk a flight of stairs without chest pain or shortness of breath. No orthopnea, no paroxysmal external dyspnea, no lower extremity edema. Since he was last seen, he has suffered transient ischemic attacks and is in need of right carotid endarterectomy. Cardiology ROS: Review of Systems HENT: Positive for hearing loss. All other systems reviewed and are negative. Past Medical History He has a past medical history of Carotid artery stenosis, Hyperlipidemia, and Hypertension. Surgical History He has a past surgical history that includes Tonsillectomy. Social History He has no history on file for tobacco use, alcohol use, and drug use. Family History Family History Problem Relation Name Age of Onset Stroke Father Diabetes Father Allergies Ibuprofen, Namenda [memantine], and Nsaids (non-steroidal anti-inflammatory drug) Medications Current Outpatient Medications: aspirin 81 mg EC [...] 24 hr capsule, , Disp: , Rfl: Last Recorded Vitals BP 112/66 (BP Location: Right arm, Patient Position: Sitting) Pulse 75 Ht 1.854 m (6' 1 ) Wt 76.7 kg (169 lb) SpO2 98% BMI 22.30 kg/m??? Physical Examination: GENERAL: alert and oriented x3, well developed, in no acute distress. HEAD: atraumatic, normocephalic. EYES: FRANKIE, EOMI. NECK: trachea midline, no JVD present, no carotid bruits present. CARDIAC: S1, S2 present. RRR. No murmur, rubs, or gallops. RESPIRATORY: CTAB, no increased effort of breathing, no rales, rhonchi, or wheezing. ABDOMEN: soft, nontender, nondistended. EXTREMITIES: no lower extremity edema, peripheral pulses are 2+ bilaterally. No rash/skin discoloration present. NEURO: strength/sensation equal and symmetric in bilateral upper and lower extremities. PSYCH: appropriate mood, affect, and judgement. Testing/Procedures: CTA neck 04/05/2021 Marked atherosclerotic narrowing of the proximal internal carotid artery left greater than right correlating with recent ultrasound findings Echocardiogram 05/2021 Global left ventricular systolic function is normal; visually estimated ejection fraction is 60 to 65%. Normal diastolic function. The right atrium is mild to moderately dilated. Right ventricle is normal in size and systolic function. Mild aortic regurgitation. The aortic sinuses are normal in size for body surface area. Lexiscan stress test 05/06/2021: Nonischemic Assessment: Symptomatic carotid stenosis History of carotid endarterectomy 06/2021 Dizziness and lightheadedness Essential hypertension Aortic regurgitation Syncope Dementia Plan: Given his physical tolerance which is more than 4 METS, absence of angina, decompensated heart failure, or uncontrolled arrhythmias, he would be at acceptable risk to proceed with surgery with no further cardiovascular testing needed. Recommend strict heart rate and blood pressure control and avoidance of major fluid shifts. An echocardiogram will be obtained to serially monitor his aortic regurgitation. Continue medical therapy for vascular disease including dual antiplatelet therapy, a statin, and an angiotensin receptor chelsie Follow-up with vascular surgery as scheduled Re (more content not included)... [place] 01-07-2023 Hospital Discharge instructions Patient Education 01/07/2023 [...] urethra. Follow these instructions at home: Take cypn-biu-ljjebxw and prescription medicines only as told by [...] provider. Document Revised: 12/11/2021 Document Reviewed: 12/11/2021 [employer] Patient Education 2022 Art of the Dream. Follow Up Care 01/13/2022 10:26:06 With:KATHY HILL, Chintan Mo, URL Address: [address] [place] [address] When: Unknown [facility] 08-25-2022 Hospital Discharge instructions Patient Education 08/25/2022 [...] urethra. Follow these instructions at home: Take gdml-uya-bohxztd and prescription medicines only as told by [...] 05/25/2006 Document Revised: 04/19/2019 Document Reviewed: 06/29/2017 [employer] Patient Education 2020 Art of the Dream. Follow Up Care 08/18/2022 10:34:03 With:KATHY HILL, Chintan Mo, URL Address: [address] [address]- When: Unknown [facility] 04-15-2022 Procedure note [facility] 01-13-2022 Hospital Discharge instructions Patient [...] Follow these instructions at home: Medicines Take hxyf-pmv-vmximtt and prescription medicines only as told by [...] 05/22/2001 Document Revised: 05/07/2018 Document Reviewed: 06/10/2017 [employer] Patient Education 2020 Art of the Dream. Follow Up Care 01/14/2021 08:36:30 With:KATHY HILL, Chintan Mo, URL Address: [address] [address]- When:Within 1 Year(s) [facility] 06-30-2021 Note MR#: [id number] I [place] Pt. Name: Fili Faith Lombardo Admitted: 06/25/2021 Discharged: 06/26/2021 Date of : [...] by: Kenyatta Mora M.D. 07/23/2021 12:17 P ___ Kenyatta Mora M.D. I personally saw this patient on the day of the encounter, performed the [place] portion(s) of the service and participated in the management and confirm the resident's documentation. Please note there may be an additional personal documentation from me. Date Dict: 06/30/2021/12:45 P/Luna Salinas M.S., [facility] Date Trans: 06/30/2021 08:59 P/grabiel [id number] [facility] Evaluation + Plan note Future Appointments Appointment Date:01/14/2023 08:45:00 AM Scheduled Provider:Chintan GRACIA MD Location:[facility] Appointment Type:URO Office Visit [facility] Evaluation + Plan note Future Appointments Appointment Date:01/07/2023 10:15:00 AM Scheduled Provider:Chintan GRACIA MD Location:[facility] Appointment Type:URO Office Visit [facility] Evaluation + Plan note Future Appointments Appointment Date:01/27/2024 10:30:00 AM Scheduled Provider:Chintan GRACIA MD Location:[facility] Appointment Type:URO Office Visit [facility] Evaluation + Plan note Future Appointments Appointment Date:01/06/2024 08:30:00 AM Scheduled Provider: Location:[facility] Appointment Type:URO Nurse Visit Appointment Date:01/27/2024 10:30:00 AM Scheduled Provider:Chintan GRACIA MD Location:[facility] Appointment Type:URO Office Visit [facility] Evaluation + Plan note Future Appointments Appointment Date:08/04/2025 09:00:00 AM Scheduled Provider:DHAVAL Ragsdale APRN, [place] X Location:[facility] Appointment Type:URO Office Visit [facility] Evaluation note Diagnosis Prostate cancer screening Special screening for malignant neoplasm of prostate Mixed hyperlipidemia Essential hypertension Unspecified essential hypertension Thyroid disorder screening Screening for thyroid disorder documented in this encounter [employer] Phone: evalagcxyy note* Diagnosis Dizziness Dizziness and giddiness Mild alcohol use disorder, in controlled environment Bilateral carotid artery stenosis Occlusion and stenosis of multiple and bilateral precerebral arteries without mention of cerebral infarction Short-term memory loss Memory loss documented in this encounter [employer] Phone: evaluation note* Diagnosis Fall, initial encounter Acute midline low back pain without sciatica documented in this encounter [employer] Phone: evaluation note* Diagnosis Fall, initial encounter documented in this encounter [employer] Phone: evaluation noteNo assessment information available [facility] Work Phone: evaluation note* Diagnosis Onset Date Resolution Status Positive colorectal cancer s creening using Cologuard test acute [facility] Work Phone: Evaluation note* Diagnosis Mixed hyperlipidemia Bilateral carotid artery stenosis Occlusion and stenosis of multiple and bilateral precerebral arteries without mention of cerebral infarction Essential hypertension Unspecified essential hypertension History of alcoholism (HCC) Personal history of alcoholism Primary hypertension Unspecified essential hypertension documented in this encounter [employer] Phone: evaluation note* Diagnosis Mixed hyperlipidemia Mild cognitive impairment Mild cognitive impairment, so stated IFG (impaired fasting glucose) Impaired fasting glucose Primary hypertension Unspecified essential hypertension Prostate cancer screening Special screening for malignant neoplasm of prostate documented in this encounter [employer] note* Diagnosis Other [facility]ia [facility] Diagnosis Other amnesia [facility]* Diagnosis Moderate vascular dementia with agitation (HCC) Acquired hypothyroidism Unspecified hypothyroidism Primary hypertension Unspecified essential hypertension Outbursts of explosive behavior Other general symptoms Mixed hyperlipidemia Dysuria [facility] Behavioral and psychological symptoms of dementia (HCC)- Primary Mild cognitive impairment Mild cognitive impairment, so stated Major depressive disorder, recurrent, moderate (HCC) Major depressive disorder, recurrent episode, moderate documented in this encounter [facility] note* Diagnosis 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 -Office number [phone] Work Phone: Progress note No data available for this section [facility] Reason for Referral Status Reason Specialty Diagnoses / Procedures Re ferred By Contact Referred To Contact Open Cardiology Diagnoses Dizziness Essential hypertension Pure hypercholesterolemia Procedures EKG 12 Lead Candace Giron, 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 [address] [place] [address] Status Reason Specialty Diagnoses / Procedures Referre d By Contact Referred To Contact Open EKG Diagnoses Dizziness Procedures Holter Monitor 48 Hour HC HOLTER MONITOR Candace Giron, 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 [address] [place] [address] Mthz Ekg [address] [id number] Status Reason Specialty Diagnoses / Procedures Referre d By Contact Referred To Contact Open Diagnoses Dizziness Essential hypertension Procedures VL DUP CAROTID BILATERAL HC EXTRACRANIAL BILAT STUDY Candace Giron 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 [address] [place] [address] Status Reason Specialty Diagnoses / Procedures Referre d By Contact Referred To Contact Closed Radiology Diagnoses Dizziness Mild alcohol use disorder, in controlled environment Bilateral carotid artery stenosis Short-term memory loss Procedures MRI BRAIN WO CONTRAST Candace Giron, 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 [address] [id number] Assessments Diagnosis Dizziness Dizziness and giddiness Essential [...] Documents on File Type Date Recorded Patient Marker Assembler Expl anation Advance Directives and Living Will Power of Hotel Attendant Documents on File Type Date Recorded Patient Marker Assembler Expl anation Advance Directives and Living Will Power of Hotel Attendant Documents on File Type Date Recorded Patient Marker Assembler Expl anation ACP-Advance Directive ACP-Power of Hotel Attendant Healthcare Agents on File Name Relationship Healthcare Agent Relationshi p Communication Ashleigh Penn Spouse Primary Decision Maker Documents on File Type Date Recorded Patient Marker Assembler Expl anation ACP-Advance Directive ACP-Power of Hotel Attendant Healthcare Agents on File Name Relationship Healthcare Agent Relationshi p Communication Ashleigh Penn Spouse Primary Decision Maker Healthcare Agents on File Name Relationship Healthcare Agent Relationshi p Communication Ashleigh Penn Spouse Primary Decision Maker Healthcare Agents on File Name Relationship Healthcare Agent Relationshi p Communication Ashleigh Penn Spouse Primary Decision Maker Healthcare Agents on File Name Relationship Healthcare Agent Relationshi p Communication Ashleigh Penn Spouse Primary Decision Maker Advance Directive Response Recorded Date/ Time Advance Directives No July 4:29pm Documents on File Type Date Recorded Patient Marker Assembler Expl anation ACP-Do Not Resuscitate 04/21/2022 9:41 AM 04/21/22 DNR Comfort Care Healthcare Agents on File Name Relationship Healthcare Agent Relationshi p Communication Ashleigh Penn Spouse Primary Decision Maker Date Activated Date Inactivated Comments 04/23/2022 12:08 AM Healthcare Agents on File Name Relationship Healthcare Agent Relationshi p Communication Ashleigh Penn Spouse Primary Decision Maker Healthcare Agents on [...] Monitor 48 Hour HC HOLTER MONITOR Candace Giron, 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 [address] [id number] [facility] Ekg [address] [place] [address] Status Reason Specialty Diagnoses / Procedures Referre d By Contact Referred To Contact Open Diagnoses Dizziness Essential hypertension Procedures VL DUP CAROTID BILATERAL HC EXTRACRANIAL BILAT STUDY Candace Giron, 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 [address] [place] [address] Status Reason Specialty Diagnoses / Procedures Referre d By Contact Referred To Contact Closed Radiology Diagnoses Dizziness Mild alcohol use disorder, in controlled environment Bilateral carotid artery stenosis Short-term memory loss Procedures MRI BRAIN WO CONTRAST Candace Giron, 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 [address] [place] [address] Reason Comments Med Refill (unrecognized sect ion and content) No Status Records FoundNo Status Records FoundNo Status Records FoundNo Status Records FoundNo Status Records FoundNo Status Records FoundNo Status Records FoundNo Status Records FoundNo Status Records FoundNo Status Records Found INFORMATION SOURCE (unrecogn ized section and content) DATE CREATED AUTHOR 07/15/2021 [facility] dical Specialist DATE CREATED AUTHOR AUTHOR'S ORGANIZ ATION 07/24/2021 [facility] DATE CREATED AUTHOR AUTHOR'S ORGANIZ ATION 08/14/2022 [facility] DATE CREATED AUTHOR AUTHOR'S ORGANIZ ATION 11/17/2023 [facility] DATE CREATED AUTHOR AUTHOR'S ORGANIZ ATION 12/31/2023 [facility] DATE CREATED AUTHOR AUTHOR'S ORGANIZ ATION 01/01/2024 [facility] DATE CREATED AUTHOR AUTHOR'S ORGANIZ ATION 08/08/2024 [facility] DATE CREATED AUTHOR AUTHOR'S ORGANIZ ATION 08/11/2024 [facility] DATE CREATED AUTHOR AUTHOR'S ORGANIZ ATION 08/19/2024 Kaye dobbins DATE CREATED AUTHOR AUTHOR'S ORGANIZ ATION 12/01/2024 [facility] dical Specialists EPIC Care Teams (unrecognized sec tion and content) Team Status: Active Member Role Status Dates Candace Giron APRN ACTIMIZE ARCHITECT-C Primary Care Provider Active Team Status: Inactive Member Role Status Dates Candace Giron APRN ACTIMIZE ARCHITECT-C Primary Care Provider Active Leonides Velasquez DO Emergency Provider Active Bricklayer Apprentice Relationship Specialty Start Date End Date Bree Candace M, 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 [address] [place] [address] PCP - General 01/09/16 Bricklayer Apprentice Relationship Specialty Start Date End Date Candace Giron, 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 [address] [place] [address] PCP - General 01/09/16 Bricklayer Apprentice Relationship Specialty Start Date End Date Candace Giron 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 [address] [place] [address] PCP - General 01/09/16 Team Status: Inactive Member Role Status Dates Candace Giron APRN ACTIMIZE ARCHITECT-C Primary Care Provider Active Christiano Ravi MD Attending Provider Active Bricklayer Apprentice Relationship Specialty Start Date End Date Candace Giron, 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 [address] PCP - General 01/09/16 Bricklayer Apprentice Relationship Specialty Start Date End Date Candace Giron, 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 [address] PCP - General 01/09/16 Bricklayer Apprentice Relationship Specialty Start Date End Date Olimpia Middleton MD [address] [phone] PCP - General Family Medicine 04/07/23 Candace Giron NP [address] [place] [phone] Referring Physician Family Medicine 04/07/23 Bricklayer Apprentice Relationship Specialty Start Date End Date Olimpia Middleton MD [address] [place] [address] PCP - General Family Medicine 04/07/23 Candace Giron NP [address] [place], [place] [phone] Referring Physician Family Medicine 04/07/23 Bricklayer Apprentice Relationship Specialty Start Date End Date Candace Giron, 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 [address] [place] [address] PCP - General 01/09/16 Bricklayer Apprentice Relationship Specialty Start Date End Date Olimpia Middleton MD [address] [place] [address] PCP - General Family Medicine 04/07/23 Candace Giron NP [address] [place], [place] [phone] Referring Physician Family Medicine 04/07/23 Bricklayer Apprentice Relationship Specialty Start Date End Date Olimpia Middleton MD [address] [place] [address] PCP - General Family Medicine 04/07/23 Candace Giron NP [address] [place], [place] [phone] Referring Physician Family Medicine 04/07/23 Goals (unrecognized section and content) Goals may [...] BE BASED ON THE PRIMARY CLINICAL RECORDS. [facility] [employer] [facility]. provides no warranty or guarantee of the accuracy or completeness of information in this document.
== END 2025-01-24 09:02 | disposition home or self-care (01) ==
LOC: US 09:01
PROVIDERS: PCP Nurse Practitioner Primary Care; Visit Provider Student in an Organized Health Care Education/Training Program
DX: I65.23 Occlusion and stenosis of bilateral carotid arteries (principal)
CPT/HCPCS: 93880

== ENCOUNTER 2025-01-31 08:08 | Outpatient (OUT) | payer MEDICARE, OTHER, SELFPAY ==
--- OUTSIDE RECORDS SUMMARY | 2010-06-27 09:48 | XMS_ITS | Encounter Summary ---
Author Organization Sylvain Restrepo [facility] Address [address], [address] [place] [address] Care Team Providers Care Pre Sales Systems Engineer Name Role Phone Unavailable Primary Care Provider Unavailabl e Encounter Details Date Type Department Care Team (Late st Contact Info) Description 06/27/2010 8:48 AM [facility] Hospital Encounter [facility] Department [address] [place] [address] Sam Kevin MD [address] [place] [address] Social History Tobacco Use Types Packs/Day Years Used Date Smoking Tobacco: Former Cigarettes Pipe Passive Smoke Exposure: Past Smokeless Tobacco: Never Alcohol Use Standard Drinks/Week Comments Not Currently 4 (1 standard drink = 0.6 oz pur e alcohol) daily/wine [facility] Utilities Answer Date Recorded In the past 12 months has [employer], gas, oil, or water [employer] threatened to shut off services in your home? No 08/15/2024 AUDIT-C Answer Date Recorded Q1: How often do you have a drink containing alc ohol? Monthly or less 05/16/2024 Q2: How many drinks containi ng alcohol do you have on a typical day when you are drinking? 1 or 2 05/16/2024 Q3: How often do you have si x or more drinks on one occasion? Less than monthly 05/16/2024 Overall Financial Resource Strain (CARDIA) Answe r Date Recorded How hard is it for you to pa y for the very basics like food, housing, medical care, and heating? Not hard at all 11/16/2023 PHQ-2 Answer Date Recorded PHQ-9 Total Score 0 08/15/2024 Exercise Vital Sign Answer Date Recorde d On average, how many days pe r week do you engage in moderate to strenuous exercise (like a brisk walk)? 0 days 05/16/2024 On average, how many minutes do you engage in exercise at this level? 0 min 05/16/2024 Hunger Vital Sign Answer Date Recorded Within the past 12 months, y ou worried that your food would run out before you got the money to buy more. Never true 08/16/19 25 Within the past 12 months, t he food you bought just didn't last and you didn't have money to get more. Never true 08/15/2024 PRAPARE - Transportation Answer Date Re corded In the past 12 months, has l ack of transportation kept you from medical appointments or from getting medications? No 08/06 In the past 12 months, has l ack of transportation kept you from meetings, work, or from getting things needed for daily living? No 08/15/2024 Housing Stability Vital Sign Answer Jayce e Recorded Unable to Pay for Housing in the Last Year Not o n file 11/16/2023 Number of Places Lived in the Last Year Not on f ile 11/16/2023 In the last 12 months, was t here a time when you did not have a steady place to sleep or slept in a fpc (including now)? No 11/16/2023 Housing Stability Vital Sign Answer Jayce e Recorded In the last 12 months, was t here a time when you were not able to pay the mortgage or rent on time? No 08/15/2024 In the past 12 months, how m any times have you moved where you were living? 0 08/15/2024 At any time in the past 12 m [facility], were you homeless or living in a fpc (including now)? No 08/15/2024 Food Insecurity Answer Date Recorded Within the past 12 months, y ou worried that your food would run out before you got the money to buy more. 1 08/15/2024 Within the past 12 months, t he food you bought just didn't last and you didn't have money to get more. 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 Yes 07/17/2020 10:09 AM EST documented as of this encounter Functional Status * Question Answer Date of Assessment Author Q1: How often do you have a drink containing alcohol? Monthly or less 05/16/2024 8:33 AM Rama Mcghee LP N Q2: How many drinks containing alcohol do you have on a typical day when you are drinking? 1 or 2 05/16/2024 8:33 AM Rama Mcghee LPN Q3: How often do you have six or more drinks on one occasion? Less than monthly 05/16/2024 8:33 AM Rama Mcghee LP N * AUDIT-C Score Answer Date of Assessment Author 2 05/16/2024 8:33 AM Jesús Mcghee LPN documented as of this encounter Plan of Treatment Not on file documented as of this encounter Visit Diagnoses Not on filedocumented in this encounter
--- OUTSIDE RECORDS SUMMARY | 2025-01-26 15:20 | XMS_ITS | Encounter Summary ---
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) Guy Salinas MD [address] [place] [address] Phone: tel: fax: Referral ID Status Reason Start Date Expiration Date V isits Requested Visits Authorized [id number] Authorized 06/08/2024 06/07/2025 1 1 Encounter Details Date Type Department Care Team (Late st Contact Info) Description 01/26/2025 3:20 PM EDT Office Visit [facility] [address] [facility] [address] [place] [phone] Guy Salinas MD [address] [place] [phone] Dementia with aggressive behavior (HCC) (Primary Dx); Memory loss; 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); Insomnia due to medical condition Social History Tobacco Use Types Packs/Day Years Used Date Smoking Tobacco: Former Cigarettes Cigars Smokeless Tobacco: Former Alcohol Use Standard Drinks/Week Comments Not Currently 40 (1 standard drink = 0.6 oz pu re alcohol) no alcohol for 3 months Sex and Gender Information Value Date Recorded Sex Assigned at Not on file Legal Sex Male 7:07 PM EDT Gender Identity Not on file Sexual Orientation Not on file documented as of this encounter Last Filed Vital Signs Vital Sign Reading Time Taken Comments Blood Pressure - - Pulse - - Temperature - - Respiratory Rate - - Oxygen Saturation - - Inhaled Oxygen Concentration - - Weight 79.8 kg (176 lb) 01/26/2025 3:39 PM EDT Height 185.4 cm (6' 1 ) 01/26/2025 3:39 PM EDT Body Mass Index 23.22 01/26/2025 3:39 PM EDT documented in this encounter Progress Notes * uGy Salinas MD - 01/26/2025 3:20 PM EDT Images from the original note were not included. CHIEF COMPLAINT REASON FOR VISIT :Patient is here for a follow up. He is present with spouse. Spouse states the rexulti is not helping. He is very irritable and calls her names and throws things. States he is sleeping well with thee trazodone. He is no longer taking the Seroquel. He is down 6 lbs from last visit. She states he does eat a lot of ice cream. Subjective Arnol Penn is a 79 y.o. male who presents for No chief complaint on file. History of Present Illness The patient presents for evaluation of irritability and memory issues. He has been experiencing increased irritability, often leading to outbursts. Despite these episodes, he maintains a good sleep pattern. Rexulti 2 mg has been taken for the past 9 weeks, which has slightly improved his condition, but aggressive behavior such as throwing objects persists. Seroquel was previously prescribed by Dr. Burleson, but it did not yield any noticeable improvement. Namenda was also tried, but it resulted in headaches, a symptom he does not typically experience. These headachessubsided upon discontinuation of the medication. Currently, Aricept is taken once daily at bedtime,and Zyprexa is no longer part of his regimen. For behavioral management, trazodone is taken twice daily, which does not induce drowsiness during the day and allows him to sleep well at night. SOCIAL HISTORY: Sleep: He maintains a good sleep pattern and sleeps well at night. FAMILY HISTORY - Mother: Dementia, MEDICATIONS CURRENT MEDS: Aricept Oral Once daily at bedtime Trazodone Oral Twice daily (morning and night) PREVIOUS MEDS: Rexulti 2 mg Oral Seroquel Oral Reason for Discontinuation: Not effective Namenda Oral Reason for Discontinuation: Caused headaches Zyprexa Oral Review of Systems Objective Height 6' 1 , weight 176 lb. Physical Exam Mental Status Examination Memory: Short term memory is gone. Results Assessment & Plan 1. Irritability. He continues to experience irritability despite being on Rexulti 2 mg for 9 weeks. The dosage of Rexulti will be increased to 3 mg to see if it helps with the irritability. If there is no improvementat 3 mg, the dosage will be further increased to 4 mg. Samples of the higher dose will be provided. 2. Memory issues. He is currently taking Aricept once a day at bedtime. The dosage of Aricept will be increased to twice daily to help with agitation. A prescription for the increased dosage will be sent to [facility] in [place]. 3. I will increase the donepezil (Aricept) 10 mg at bed and in the am to help treat memory loss andconfusion It works by improving attention, memory, and the ability to engage in daily activities. 4. Rexulti 3 mg at bed for 6 weeks and if no better will give a trial on 4 mg at bed. 5. I will arrange for physical therapy for gait analysis that may include observation of walking pattern, postural alignment, arm swing & trunk movement, foot clearance and placement, and assisted device use. Physical Therapist evaluates why balance is impaired which can include weakness, poor p roprioception, sensory deficits, vestibular dysfunction, neurological impairment, joint stiffness, pain, and decreased reaction time. PT can help with strength training, core stability for trunk control, balance exercises, gait training, neuromuscular re-education, fall recovery training, and provide help setting realistic goals. Such as improved walking speed, endurance, reduced fear of falling,better responses to unexpected perturbations such as tripping, improves mobility, and reduces fall risk. 3 This clinical note was created utilizing Wedia system. All information has beenthoroughly reviewed, corrected as necessary, and authenticated by the provider to ensure accuracy and completeness. On occasion, LEEANNA ambient documentation system erroneously drops words or replaces aspoken word with a similar sounding word. Please notify with any questions or concerns regarding this clinical note. documented in this encounter Plan of Treatment Upcoming Encounters Date Type Department Care Team (Late st Contact Info) Description 02/14/2025 2:15 PM EDT Office Visit [facility] [address] [place] [address] Ted Putnam, DO [address] [place] [address] 03/09/2025 9:30 AM EDT Office Visit [facility] [address] [place] [phone] Lissette Treviño, BLOW DOWN OPERATOR-TELEGRAPH REPEATER MECHANIC [address] [place] [place] [address] documented as of this encounter Visit Diagnoses Diagnosis Dementia with aggressive behavior (HCC)- Primary Memory loss 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
--- NOTE | 2025-01-31 08:10 | CA_ITS ---
Patient Name: FAITH OLIVIER MR#: [id number] : 1945 Exam Date: 01/31/2025 Ordering Doctor: DR JAC CINTRON M.D. ECHOCARDIOGRAM REPORT PROCEDURE: CA ECHO DOPPLER COMPLETE INDICATIONS: Aortic Valve stenosis COMPARISON: None. DESCRIPTION: COMPLETE ECHOCARDIOGRAM Real-time transthoracic echocardiography with 2D, M-mode, spectral and color flow Doppler performed. QUALITY: Technical quality was good. LEFT VENTRICLE: Normal chamber size. Proximal septal hypertrophy (sigmoid septum). LV EF: Global left ventricular systolic function is hyperdynamic. Visual estimation of left ventricular ejection fraction is 65-70%. No significant wall motion abnormalities. DIASTOLIC: Normal diastolic function. ATRIAL SEPTUM: Inadequately seen LEFT ATRIUM: Normal chamber size. RIGHT ATRIUM: Mild dilatation. RIGHT VENTRICLE: Normal chamber size. Normal right ventricular systolic function. TRICUSPID VALVE: Normal mobility and thickness. No stenosis with mild regurgitation. No evidence of pulmonary hypertension. RVSP 24mmHg. MITRAL VALVE: Normal mobility and thickness. No evidence of mitral valve stenosis. There is no mitral annular calcification. Trivial mitral regurgitation. AORTIC VALVE: Normal trileaflet appearance. Mildly calcified aortic valve. Normal leaflet mobility. No evidence of aortic valve stenosis. Mild aortic regurgitation. AORTIC ROOT: The aortic root is mildly dilated, measuring 4.0cm. The ascending aorta measures 3.6cm. PULMONIC VALVE: Normal thickness and mobility. No stenosis. No regurgitation. PERICARDIUM: No evidence of pericardial effusion. IVC: Collapses with inspiration. Normal size. CONCLUSION: 1. Global ventricular systolic function is hyperdynamic; visually estimated ejection fraction 65 to 70% 2. Normal right ventricular size and systolic function 3. Normal diastolic function 4. The right atrium is mildly dilated 5. Mild aortic valve regurgitation 6. Mildly enlarged aortic root measuring 4.0 cm Adult Echocardiography Procedure Report Left Ventricle LVEDD (3.7 - 5.6 cm): 4.42 cm LVESD (2.2 - 4.0 cm): 2.36 cm LVIVS thickness (0.6 - 1.2 cm): 1.02 cm LVPW thickness (0.5 - 1.0 cm): 1.04 cm e': 0.09 m/s E - e': 7.28 LVOT Max Gradient: 5.89 mm[Hg] LVOT Area (cm2): 1.21 m/s Peak Velocity (LVOT): 1.21 m/s Mean Velocity (LVOT): 0.83 m/s LVOT Diameter 2.11 cm Left Ventricular Ejection Fraction: 75.71 % Left Atrium LA Volume Index (2D A2C): 24.03 ml/m2 Left Atrium Systolic Dimension: 3.61 cm Mitral Valve MV E to A Ratio: 0.67, 0.67 Mitral Valve A-Wave Peak Velocity: 0.94 m/s Mitral Valve E-Wave Peak Velocity: 0.63 m/s Right Ventricle RV Internal Diastolic Dimension: 3.85 cm Aorta AO Root Diam: 4.04 cm Ascending Ao Diam: 3.63 cm Aortic Valve AoV Area (Peak Chema): 2.96 cm2, 2.96 cm2 AoV Area (VTI): 2.52 cm2, 2.52 cm2 Deceleration [place]: 1.92 m/s2 Pressure Half-Time: 512.53 ms Peak Velocity(Antegrade Flow): 1.43 m/s Peak Gradient(Antegrade Flow): 8.21 mm[Hg] Mean Velocity(Antegrade Flow): 0.95 m/s Mean Gradient(Antegrade Flow): 4.28 mm[Hg] Velocity Time Integral: 31.85 cm Tricuspid Valve Peak Velocity (Regurgitant Flow): 2.15 m/s, 2.28 m/s, 2.31 m/s, 2.24 m/s Pulmonic Valve Mean Gradient: 1.70 mm[Hg] Mean Velocity: 0.61 m/s Peak Velocity: 0.84 m/s, 0.97 m/s Peak Gradient: 3.74 mm[Hg], 2.81 mm[Hg] Right Atrium Right Atrium Systolic Pressure: 55.02 ml, 55.02 ml Dictated by: Jac Cintron M.D. on 02/01/2025 at 13:42 Approved by: Jac Cintron M.D. on 02/01/2025 at 13:46
--- OUTSIDE RECORDS SUMMARY | 2025-01-31 08:10 | XMS_ITS | Encounter Summary ---
Author Organization [facility] Address [facility] [place] [id number] [address] [place] [address] Care Team Providers Care Irrigation Engineer Name Role Phone Gini Burleson APRN-STOVE POLISHER Primary Care Provider [phone] Encounter Details Date Type Department Care Team (Late st Contact Info) Description 01/24/2025 Telephone [facility] [address] [place] [address] Marlys Garcia MD [address], [address] [place] [address] Social History Tobacco Use Types Packs/Day Years Used Date Smoking Tobacco: Former Pipe Cigars Passive Smoke Exposure: Never Smokeless Tobacco: Never Alcohol Use Standard Drinks/Week Comments Not Currently 4 (1 standard drink = 0.6 oz pur e alcohol) [facility] Utilities Answer Date Recorded In the past 12 months has [employer], gas, oil, or water [employer] threatened to shut off services in your [...] Sabine Rubin - 01/24/2025 8:59 AM EDT [employer] returning the voicemail from the patients about the location of the upcoming appointment. Please assist in giving the address if the patient and his call back. Thank you. documented in this encounter Plan of Treatment Upcoming Encounters Date Type Department Care Team (Late st Contact Info) Description 02/02/2025 11:40 AM EDT Office Visit [facility] [place] [address] [place] [address] Marlys Garcia MD [address], [address] [address] documented as of this encounter Visit Diagnoses Not on filedocumented in this encounter Additional Health Concerns Assessment Noted Time PHQ-9 Depression Total Score: 0 12/29/19 24 5:17 PM EDT documented as of this encounter Care Teams Irrigation Engineer Relationship Specialty Start Date End Date Gini Burleson, ELECTRONIC COMMERCE SPECIALIST-STOVE POLISHER [address] [place] [phone] PCP - General Family Medicine 12/21/23 documented as of this encounter
--- OUTSIDE RECORDS SUMMARY | 2025-01-31 08:10 | XMS_ITS | Clinical Summary ---
Author Organization [facility] tem Address [facility] [id number] [address] [place] [address] Care Team Providers Care Nailer Operator Name Role Phone Sarah BethGini Carol BUENROSTRO-COMB FIXER Primary Care Provider [phone] Allergies Active Allergy Reactions Criticality Noted Date [...] [facility] [address] [place] [address] Marlys Garcia MD 01/19/2025 Telephone [facility] [address] [place] [phone] Loretta Munroe, GEMINI from Last 3 Months [...] drink = 0.6 oz pur e alcohol) [facility] [employer] Answer Date Recorded In the past 12 months has [employer], gas, oil, or water [employer] threatened to shut off services in your [...] Office Visit [facility] [place] [address] Marlys Garcia MD [address] , [address] [address] Health Maintenance Due Date Last Done Comments [...] 06/30/2018, 10/03/2013 Medical Devices Implanted Type Area Swage Toolsetter Device Identifier Shelf Expiration Date Model / Serial / Lot Patch Cv 8x.8cm N-Pyrg Tpr End Photofix Decellularized Bvn Rpl [id number] - [id number] Implanted:Qty: 1 on 12/29/2023 by Marlys Garcia MD at [facility] Graft Right: Carotid CRYOLIFE 08/01/2025 [id number] / / [id number] Insurance [employer] MEDIC[employer] Care Teams Nailer Operator Relationship Specialty Start Date End Date Gini Burleson APRN-COMB FIXER [address] [place] [phone] PCP - General Family Medicine 12/21/23
--- OUTSIDE RECORDS SUMMARY | 2025-01-31 08:10 | XMS_ITS | Encounter Summary ---
Author Organization [facility] Address [id number] [address] [place] [address] Care Team Providers Care Staff Genetic Counselor Name Role Phone Gini Burleson APRN-BUSINESS INFORMATION MANAGER Primary Care Provider [phone] Encounter Details Date Type Department Care Team (Late st Contact Info) Description 01/19/2025 Telephone [facility] [address] [place] [phone] Loretta Munroe, GEMINI Social History Tobacco Use Types Packs/Day Years Used Date Smoking Tobacco: Former Pipe Cigars Passive Smoke Exposure: Never Smokeless Tobacco: Never Alcohol Use Standard Drinks/Week Comments Not Currently 4 (1 standard drink = 0.6 oz pur e alcohol) [facility] Utilities Answer Date Recorded In the past 12 months has e [employer], gas, oil, or water company threatened to [...] AM EDT Office Visit [facility] [place] [address] [place] [address] Marlys Garcia MD [address], [address] [address] documented as of this encounter Visit Diagnoses Not on filedocumented in this encounter Additional Health Concerns Assessment Noted Time PHQ-9 Depression Total Score: 0 12/29/19 24 5:17 PM EDT documented as of this encounter Care Teams Staff Genetic Counselor Relationship Specialty Start Date End Date Gini Burleson, EQUIPMENT OPERATING ENGINEER-BUSINESS INFORMATION MANAGER [address] [place] [address] PCP - General Family Medicine 12/21/23 documented as of this encounter
--- OUTSIDE RECORDS SUMMARY | 2025-01-31 08:11 | XMS_ITS | Encounter Summary ---
Author Organization Sylvain Restrepo [facility] 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
--- OUTSIDE RECORDS SUMMARY | 2025-01-31 08:11 | XMS_ITS | Encounter Summary ---
Author Organization [facility] Address [address] [place] [address] Care Team Providers Care Centralized Traffic Control Operator Name Role Phone Gini Burleson MD Primary Care Provider [phone] Reason for Visit * Reason Comments Med Refill Encounter Details Date Type Department Care Team (Late st Contact Info) Description 09/14/2022 Refill [facility] [address] [place] [address] Jac Cintron MD [address] [facility] [address] [facility] [place] [phone] Hyperlipidemia, unspecified hyperlipidemia type Social History Tobacco [...] type documented in this encounter Care Teams Centralized Traffic Control Operator Relationship Specialty Start Date End Date Gini Burleson MD [address] [place] [address] PCP - General 07/09/22 documented as of this encounter
--- OUTSIDE RECORDS SUMMARY | 2025-01-31 08:11 | XMS_ITS | Encounter Summary ---
Author Organization [facility] Address [address] [place] [address] Care Team Providers Care Claim Auditor Name Role Phone Olimpia Middleton MD Primary Care Provider [phone] Gini Burleson ANGLE BENDER Unavailable [phone] Encounter Details Date Type Department Care Team (Late st Contact Info) Description 01/26/2025 Bamboo flowsheet [facility] [address] [place] [address] Guy Salinas MD [address] [facility] [address] [place] [address] [place] [address] Social History Tobacco Use Types Packs/Day Years [...] 02/14/2025 2:15 PM EDT Office Visit [facility] [address] [place] [address] Ted Putnam DO [address] [place] [address] 03/09/2025 9:30 AM EDT Office Visit [facility] [address] [place] [phone] Lissette Treviño, PORTER-SYSTEMS NAVIGATOR [address] [facility] [place], [place] [phone] documented as of this encounter Visit Diagnoses Not on filedocumented in this encounter Care Teams Claim Auditor Relationship Specialty Start Date End Date Olimpia Middleton MD [address] [place] [address] PCP - General Family Medicine 04/07/23 Gini Burleson NP [address] [place] [address] Referring Physician Family Medicine 04/07/23 documented as of this encounter
--- OUTSIDE RECORDS SUMMARY | 2025-01-31 08:11 | XMS_ITS | Encounter Summary ---
Author Organization [facility] Address [address] [facility] [place] [address] Care Team Providers Care Machine Accountant Name Role Phone Olimpia Middleton MD Primary Care Provider [phone] Gini Burleson NP Unavailable [phone] Encounter Details Date Type Department Care Team (Latest Contact Info) Description 01/26/2025 Travel Social History Tobacco Use Types Packs/Day Years [...] Description 02/14/2025 2:15 PM EDT Office Visit [facility] [address] [place] [address] Ted Putnam, DO [address] [place] [address] 03/09/2025 9:30 AM EDT Office Visit [facility] [address] [facility] [address] [place] [address] Lissette Treviño, CAN SORTER-STRAIGHTEDGE MACHINE OPERATOR HELPER [address] [facility] [address] [place], [place] [address] documented as of this encounter Visit Diagnoses Not on filedocumented in this encounter Care Teams Machine Accountant Relationship Specialty Start Date End Date Olimpia Middleton MD [address] [place] [address] PCP - General Family Medicine 04/07/23 Gini Burleson NP [address] [place] [address] Referring Physician Family Medicine 04/07/23 documented as of this encounter
--- OUTSIDE RECORDS SUMMARY | 2025-01-31 08:11 | XMS_ITS | Encounter Summary ---
Author Organization [facility] Address [address] [facility], [address] [place] [address] Care Team Providers Care Home Service Demonstrator Name Role Phone Gini Burleson APRN - CUSTOMER ACCOUNT SPECIALIST Primary Care Provider Encounter Details Date Type Department Care Team (Late st Contact Info) Description 01/18/2024 Orders Only [facility] [place] [address] [facility] [place] [address] Provider, MD Paras Social History Tobacco Use [...] place to sleep or slept in a snf (including now)? 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
--- OUTSIDE RECORDS SUMMARY | 2025-01-31 08:11 | XMS_ITS | Encounter Summary ---
Author Organization [facility] Address [address] [place] [address] Care Team Providers Care Heel Sorter Name Role Phone Olimpia Middleton MD Primary Care Provider [phone] Gini Burleson SENIOR WEB APPLICATIONS DEVELOPER Unavailable [phone] Encounter Details Date Type Department Care Team (Late st Contact Info) Description 01/20/2024 Clinisync Result Encounter [facility] External Department Unsolicited Marlys Garcia MD [address], [facility] [address] [place] [address] Social History Tobacco Use Types Packs/Day Years [...] 02/14/2025 2:15 PM EDT Office Visit [facility] [address] [place] [phone] Ted Putnam, DO [address] [place] [address] 03/09/2025 9:30 AM EDT Office Visit [facility] [address] [place] [address] Lissette Treviño HUMAN RESOURCES [facility] [address] [facility] [place] [address] documented as of this encounter Procedures Procedure Name Priority Date/Time Associated Diagnosis Comments VASC US CAROTID ARTERY DUPLEX BILATERAL 01/20/2024 10:33 AM EDT documented in this encounter Results * Vascular US carotid artery duplex bilateral (01/20/2024 10:33 AM EDT) Anatomical Region Laterality Modality Neck Ultrasound 01/20/2024 10:3 3 AM EDT Narrative 01/20/2024 10:35 AM EDT [address] [address] Ultrasound Report Signed Patient: FAITH PENN MR#: [id number] : 1945 Acct:[id number] Age/Sex: 78 / M ADM Date: 01/19/24 Loc: US Attending Dr: Marlys Garcia M.D. Ordering Physician: Marlys Garcia M.D. Date of Service: 01/19/24 Procedure(s): US carotid duplex BI Accession Number(s): [id number] cc: Gini Burleson NP; Marlys Garcia M.D. [address] [address] Patient Name: FAITH PENN MRN: [id number] date: 1945 Sex: M Assigned Patient Location: US Current Patient Location: US Accession/Order Number: [id number] Exam Date: 01/19/2024 15:12 Report Date: 01/20/2024 [...] standard protocol. ICA/CCA ratios are calculated with industrial sales representative peak-systolic velocities and recorded. Vertebral arteries are [...] Signed By: 01/20/24 1035 DD/ 1033 TD/TT: Animal Science Professor: Procedure Note Radiology, Radiologist, MD - 01/20/2024 [place] [address] Ultrasound Report Signed Patient: FAITH PENN CMR#: [id number] : 5Acct:[id number] Age/Sex: 78 / MADM Date: 01/19/24 Loc: US Attending Dr: Marlys Garcia M.D. Ordering Physician: Marlys Garcia M.D. Date of Service: 01/19/24 Procedure(s): US carotid duplex BI Accession Number(s): [id number] cc: Gini Burleson NP; Marlys Garcia M.D. [facility] [place] [id number] Patient Name: FAITH PENN MRN: [id number] date: 1945 Sex: M Assigned Patient Location: US Current Patient Location: US Accession/Order Number: [id number] Exam Date: 01/19/2024 15:12 Report Date: 01/20/2024 [...] standard protocol. ICA/CCA ratios are calculated with industrial sales representative peak-systolic velocities and recorded. Vertebral arteries are [...] M.D. Signed By:01/20/24 1035 DD/ 1033 TD/TT: Animal Science Professor: Marlys Garcia MD [facility] PROCEDURES Final Resu lt documented in this encounter Visit Diagnoses Not on filedocumented in this encounter Care Teams Heel Sorter Relationship Specialty Start Date End Date Olimpia Middleton MD [address] [place] [address] PCP - General Family Medicine 04/07/23 Gini Burleson NP [address] [place] [address] Referring Physician Family Medicine 04/07/23 documented as of this encounter
--- OUTSIDE RECORDS SUMMARY | 2025-01-31 08:11 | XMS_ITS | Encounter Summary ---
Author Organization [facility] Address [id number] [address] [place] [address] Care Team Providers Care Electric Distribution Engineer Name Role Phone Gini Burleson APRN-ARTIFICIAL PLASTIC EYE MAKER Primary Care Provider [phone] Encounter Details Date Type Department Care Team (Late st Contact Info) Description 01/13/2024 Orders Only [facility] [address] [place] [address] [place] [phone] Bernabe Fuentes MD [address] [place] [address] Social History Tobacco Use Types Packs/Day Years Used Date Smoking Tobacco: Former Pipe Cigars Passive Smoke Exposure: Never Smokeless Tobacco: Never Alcohol Use Standard Drinks/Week Comments Not Currently 4 (1 standard drink = 0.6 oz pur e alcohol) [facility] Utilities Answer Date Recorded In the past 12 months has [employer], gas, oil, or water [employer] threatened to shut off services in your [...] AM EDT Office Visit [facility] [place] [address] [place] [address] Marlys Garcia MD [address], [address] [address] documented as of this encounter Procedures Procedure [...] documented as of this encounter Care Teams Electric Distribution Engineer Relationship Specialty Start Date End Date Gini Burleson, PROBATION OFFICER-ARTIFICIAL PLASTIC EYE MAKER [address] [place] [address] PCP - General Family Medicine 12/21/23 documented as of this encounter
--- OUTSIDE RECORDS SUMMARY | 2025-01-31 08:11 | XMS_ITS | Encounter Summary ---
Author Organization [facility] Address [address] [facility], [address] [place] [address] Care Team Providers Care Skoog Machine Operator Name Role Phone Gini Burleson APRN - REAL ESTATE OFFICE SUPERVISOR Primary Care Provider Encounter Details Date Type Department Care Team (Late st Contact Info) Description 11/16/2023 Orders Only [facility] Primary Care [place] [address] [place], [place] [phone] Provider, MD Paras Social History Tobacco Use [...] in a detention (including now)? 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 Not on [...] Laterality Modality Vascular, Head Computed Tomogra phy [facility] Provider IMJessika CT ORDERABLES Final R esult * EKG 12 Lead (10/30/2023 3:56 PM EDT) [facility] Provider ECG ORDERABLES Final Res ult * XR Chest 1 VW (10/30/2023 3:53 PM EDT) Anatomical Region Laterality Modality Radiographic Abeba ging [facility] Provider IMG DIAGNOSTIC IMAGING OR DERABLES Final Result * CT HEAD WO CONTRAST (10/30/2023 3:49 PM EDT) Anatomical Region Laterality Modality Head Computed Tomogra phy Result [facility] Provider IMJessika CT ORDERABLES Final R esult documented in this encounter Visit Diagnoses Not on filedocumented in this encounter Additional Health Concerns Assessment Noted Time A fall risk assessment has been complete d for the patient 04/27/2023 8:30 AM EST documented as of this encounter Care Teams Skoog Machine Operator Relationship Specialty Start Date End Date Gini Burleson APRN - REAL ESTATE OFFICE SUPERVISOR [address] [place] [address] PCP - General 01/09/16 documented as of this encounter
--- OUTSIDE RECORDS SUMMARY | 2025-01-31 08:11 | XMS_ITS | Encounter Summary ---
Author Organization [facility] Address [address] [facility], [address] [place] [address] Care Team Providers Care Learning Specialist Name Role Phone Sarah Beth Ginirandal Medina APRN - [facility] Primary Care Provider Reason for Referral * Imaging (Routine) - Closed Specialty Diagnoses / Procedures Referred By Jaxsonac t Referred To Contact Diagnoses Rheumatic disorders of both mitral and aortic valves Procedures Echo (TTE) complete (PRN contrast/bubble/strain/3D) AL ECHO TTHRC R-T 2D W/WOM-MODE COMPL SPEC&COLR D AL TTE W OR WO FOL WCON,DOPPLER Jac Cintron MD [address] [place] [address] Phone: tel: fax: Referral ID Status Reason Start Date Expiration Date Visits Re quested Visits Authorized [id number] Closed 11/19/2023 11/18/2024 1 1 Encounter Details Date Type Department Care Team (Late st Contact Info) Description 11/19/2023 Transcribe Orders [facility] [address] [place] [address] Jac Cintron MD [address] [place] [address] Rheumatic disorders of both mitral [...] place to sleep or slept in a nursing home (including now)? 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 Not on file Not [...] CV CPACS MV A Velocity 1.01 m/s [facility] C V CPACS MV E Wave Deceleration Time 182.9 ms BS CV CPACS MV E Velocity 1.07 m/s [facility] C V CPACS LV E' Lateral Velocity 8 cm/s [facility] CV CPACS MV PHT 53.0 ms BS CV CPACS PV Peak Gradient 3 mmHg [facility] CV CPACS PV Max Velocity 0.8 m/s [facility] CV CPACS TR Peak Gradient 21 mmHg [facility] CV CPACS TR Max Velocity 2.30 m/s [facility] CV CPACS Ascending Aorta 3.3 cm BS CV CPACS Aortic Root 3.9 cm BS CV CPACS Body Surface Area 2.11 m2 BS CV CPACS LV ESV Index A4C 21 mL/m2 [facility] CV CPACS LV EDV Index A4C 44 mL/m2 [facility] CV CPACS MV E/A 1.06 BS CV CPACS E/E' Lateral 13.38 BS CV CPACS LVOT Area 4.2 cm2 [facility] CV CPACS LA Volume Index A-L A4C 27 16 - 34 mL/m2 BS CV CPACS LA Volume Index MOD A4C 25 16 - 34 ml/m2 BS CV CPACS LA Size Index 1.56 cm/m2 [facility] C V CPACS LA/AO Root Ratio 0.85 [facility] CV CPACS Ao Root Index 1.85 cm/m2 [facility] C V CPACS Ascending Aorta Index 1.56 cm/m2 [facility] CV CPACS MV Area by PHT 4.2 cm2 [facility] CV CPACS Anatomical Region Laterality Modality Echocardiography [...] Doppler was performed. No contrast was given. [facility] Cintron MD CV ECHO ORDERABLES [...] documented as of this encounter Care Teams Learning Specialist Relationship Specialty Start Date End Date Gini Burleson APRN - MEDICAL SECRETARY [address] [place] [address] PCP - General 01/09/16 documented as of this encounter
--- OUTSIDE RECORDS SUMMARY | 2025-01-31 08:11 | XMS_ITS | Encounter Summary ---
Author Organization [employer] [facility] Address [id number] [address] [place] [address] Care Team Providers Care Manager Privacy Name Role Phone Gini Burleson APRN-FACILITIES SUPERVISOR Primary Care Provider [phone] Encounter Details Date Type Department Care Team (Late st Contact Info) Description 01/26/2024 Orders Only [facility] [address] [place] [address] Daisy Reyes CMA Postop check Social History Tobacco Use Types Packs/Day Years Used Date Smoking Tobacco: Former Pipe Cigars Passive Smoke Exposure: Never Smokeless Tobacco: Never Alcohol Use Standard Drinks/Week Comments Not Currently 4 (1 standard drink = 0.6 oz pur e alcohol) [facility] Utilities Answer Date Recorded In [...] AM EDT Office Visit [facility] [place] [address] [place] [address] Marlys Garcia MD [address], [address] [address] documented as of this encounter Visit Diagnoses Diagnosis Postop check Follow-up examination, following unspecified surgery documented in this encounter Additional Health Concerns Assessment Noted Time PHQ-9 Depression Total Score: 0 12/29/19 24 5:17 PM EDT documented as of this encounter Care Teams Manager Privacy Relationship Specialty Start Date End Date Gini Burleson, [place] FLOOR INSTALLATION HELPER-FACILITIES SUPERVISOR [address] [place] [phone] PCP - General Family Medicine 12/21/23 documented as of this encounter
--- OUTSIDE RECORDS SUMMARY | 2025-01-31 08:11 | XMS_ITS | Clinical Summary ---
Author Organization [facility] Address [address] [place] [address] Care Team Providers Care Associate Professor Of Philosophy Name Role Phone Olimpia Middleton MD Primary Care Provider [phone] Gini Burleson NP Unavailable [phone] Allergies Active Allergy Reactions Criticality Noted Date Comments Ibuprofen 07/17/2020 Other Reaction(s): HYPERTENSION, increases BP Other reaction(s): HYPERTENSION Memantine Headache 08/04/2023 Nsaids 02/28/2014 Elevates blood pressure Medications losartan (Cozaar) 25 MG tablet 3 Active tamsulosin (Flomax) 0.4 MG 24 hr capsule Take 0.4 mg by mouth in the morning. Active simvastatin (Zocor) 40 MG tablet 3 Active ASPIRIN 81 PO Take 1 tablet by mouth in the morning. Active donepezil (Aricept) 10 MG tabletIndicatio ns:Other amnesia TAKE 1 TABLET BY MOUTH EVERYDAY AT BEDTIME 30 tablet 3 5 Active levothyroxine (Synthroid, Levoxyl) 50 MCG tablet Take 50 mcg by mouth in the morning. Take before meals. 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 60 tablet 11 5 02/26/20 25 Active QUEtiapine (SEROquel) 25 MG tablet TAKE 1 TABLET BY MOUTH AT BEDTIME FOR DYSTHYMIA 3 01/27/20 25 Discontinu ed(Therapy completed) donepezil (Aricept) 10 MG tabletIndicatio ns:Memory loss TAKE 1 TABLET BY MOUTH EVERY DAY AT BEDTIME 90 tablet 1 4 01/27/20 25 Discontinu ed(Reorder ) traZODone (Desyrel) 50 MG tablet Take 50 mg by mouth in the morning and 50 mg before bedtime. 01/27/20 25 Discontinu ed(Reorder ) OLANZapine (ZyPREXA) 2.5 MG tablet Take 5 mg by mouth at bedtime 5 01/27/20 25 Discontinu ed(Therapy completed) Active Problems Problem Noted Date Diagnosed Date Late onset Alzheimer's disease with behavioral d isturbance 01/26/2025 Epididymitis 08/09/2024 Valero catheter status 08/09/2024 Hydrocele 08/09/2024 Postop check 01/14/2024 BMI 24.0-24.9, adult 11/16/2023 Former smoker 11/16/2023 Cerebrovascular accident (CV A) due to stenosis of right carotid artery 11/12/2023 COVID-19 11/12/2023 Impotence 11/12/2023 Positive colorectal cancer screening using Colog uard test 11/12/2023 Transient ischemic attack in volving right internal carotid artery 11/12/2023 Overview (01/26/2025): Last Assessment & Plan: Cardiac risk stratification Continue aspirin and statin Will add Plavix to start now and for 1 month after carotid endarterectomy We will plan on right carotid endarterectomy for symptomatic Moderate right ICA stenosis Behavioral and psychological symptoms of dementi a 10/19/2023 Dementia with aggressive behavior 10/19/2023 Gross hematuria 08/04/2023 Nocturia 08/04/2023 Poor urinary stream 08/04/2023 Bilateral carotid artery occlusion 04/07/2023 Carotid stenosis, bilateral 04/07/2023 Major depressive disorder, recurrent, moderate 0 10/20/2022 HTN (hypertension) 11/11/2012 Hyperlipidemia 11/11/2012 Encounters Date Type Department Care Team Description 01/26/2025 3:20 PM EDT Office Visit [facility] [facility] [address] [place] [phone] Guy Salinas MD Dementia with aggressive behavior (HCC) (Primary Dx); Memory loss; 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); Insomnia due to medical condition 01/26/2025 Bamboo flowsheet [facility] [address] [place] [phone] Guy Salinas MD 01/26/2025 Travel 01/05/2025 Telephone [facility] [place] [facility] [address] [place] [phone] Sarah Melendez NP 12/06/2024 Telephone [facility] [address] [place] [phone] Mickie Acevedo MA 11/30/2024 9:40 AM EDT Office Visit [facility] [address] [place] [phone] Sarah Melendez NP 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) (Primary Dx) 11/30/2024 Bamboo flowsheet [facility] [address] [place] [address] Sarah Melendez NP 11/30/2024 Travel from Last [...] Mass Index 23.22 01/26/2025 3:39 PM EDT Plan of Treatment Upcoming Encounters Date Type Department Care Team (Late st Contact Info) Description 02/14/2025 2:15 PM EDT Office Visit [facility] [address] [place] [phone] Ted Putnam, DO [address] [place] [address] 03/09/2025 9:30 AM EDT Office Visit [facility] [address] [place] [address] Lissette Treviño, CAR PARKER-SENIOR PRODUCTION PLANNER [address] [facility] [place], [place] [phone] Health Maintenance Due Date Last Done Comments Influenza Vaccine (#1) 2025 4, 04/07/2023, 03/27/2022, Additional history exists Pneumococcal Vaccine: 65+ Years Completed 2, 01/02/2016 [place] [address] [employer] Care Teams Associate Professor Of Philosophy Relationship Specialty Start Date End Date Olimpia Middleton MD [address] [place] [address] PCP - General Family Medicine 04/07/23 Gini Burleson NP [address] [place] [address] Referring Physician Family Medicine 04/07/23
--- OUTSIDE RECORDS SUMMARY | 2025-01-31 08:11 | XMS_ITS | Encounter Summary ---
Author Organization [facility] Address [address] [facility], [address] [place] [address] Care Team Providers Care Wire Mill Operator Name Role Phone Gini Burleson SENIOR QUALITY ASSURANCE ANALYST - SOFTWARE SALES MANAGER Primary Care Provider Reason for Visit * Reason Comments Medication Refill Encounter Details Date Type Department Care Team (Late st Contact Info) Description 03/04/2021 Refill [facility] Primary Care [place] [address] [place] [address] Gini Burleson, SENIOR QUALITY ASSURANCE ANALYST - SOFTWARE SALES MANAGER [address] [place] [address] Medication Refill Social History Tobacco Use Types [...] Not on file 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
--- OUTSIDE RECORDS SUMMARY | 2025-01-31 08:11 | XMS_ITS | Encounter Summary ---
Author Organization [facility] tem Address [id number] [address] [place] [address] Care Team Providers Care Bottle Booth Attendant Name Role Phone Gini Burleson Carol BUENROSTRO-EDUCATIONAL PSYCHOLOGIST Primary Care Provider [phone] Encounter Details Date Type Department Care Team (Late Contact Info) Description 11/12/2023 Orders Only [facility] [address] [place] [address] Josee Allen CMA Social History Tobacco Use [...] AM EDT Office Visit [facility] [place] [address] [place] [address] Marlys Garcia MD [address], [address] [address] documented as of this encounter Visit Diagnoses Not on filedocumented in this encounter Care Teams Bottle Booth Attendant Relationship Specialty Start Date End Date Gini Burleson, SHIFT COORDINATOR-EDUCATIONAL PSYCHOLOGIST [address] [place] [address] PCP - General Family Medicine 12/21/23 documented as of this encounter
--- OUTSIDE RECORDS SUMMARY | 2025-01-31 08:12 | XMS_ITS | Clinical Summary ---
Author Organization [facility] Address [address] [place] [address] Care Team Providers Care Official Greeter Name Role Phone Unavailable Primary Care Provider Unavailabl e Encounters Date Type Department Care Team Description 11/14/2024 Transcribe Orders [facility] Neurology [address] [place] [address] Gini Burleson CNP Behavioral and [...] Additional history exists Insurance RAILROAD MEDICARE- ONLY [facility]
--- OUTSIDE RECORDS SUMMARY | 2025-01-31 08:12 | XMS_ITS | Encounter Summary ---
Author Organization [facility] Address [address], [address] [place] [address] Care Team Providers Care Mold Checker Name Role Phone Gini Burleson CORPORATE STRATEGY ASSOCIATE - PROTECTIVE SERVICES CASE WORKER Primary Care Provider Encounter Details Date Type Department Care Team (Late st Contact Info) Description 01/11/2025 Abstract [facility] [place] [address] [place], [place] [phone] Gini Burleson, CORPORATE STRATEGY ASSOCIATE - PROTECTIVE SERVICES CASE WORKER [address] [place], [place] [phone] Social History Tobacco Use Types Packs/Day Years Used Date Smoking Tobacco: Former Cigarettes Pipe Passive Smoke Exposure: Past Smokeless Tobacco: Never Alcohol Use Standard Drinks/Week Comments Not Currently 4 (1 standard drink = 0.6 oz pur e alcohol) daily/wine [facility] Utilities Answer Date Recorded In the past 12 months has [employer], gas, oil, or water [employer] threatened to shut off services in your [...] place to sleep or slept in a penitentiary (including now)? No 11/16/2023 Housing Stability Vital Sign Answer Jayce e Recorded In the last 12 months, was t here a time when you were not able to pay the mortgage or rent on time? No 08/15/2024 In the past 12 months, how m any times have you moved where you were living? 0 08/15/2024 At any time in the past 12 m [facility], were you homeless or living in a penitentiary (including now)? 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
--- OUTSIDE RECORDS SUMMARY | 2025-01-31 08:12 | XMS_ITS | Clinical Summary ---
Author Organization [facility] Address [address] [place] [address] Care Team Providers Care Pilot Plant Technician Name Role Phone Gini Burleson MD Primary Care Provider [phone] Allergies Active Allergy Reactions Criticality Noted Date [...] age to complete this [place] [phone] Care Teams Pilot Plant Technician Relationship Specialty Start Date End Date Gini Burleson MD [address] [place] [phone] PCP - General 07/09/22
--- OUTSIDE RECORDS SUMMARY | 2025-01-31 08:12 | XMS_ITS | Encounter Summary ---
Author Organization [facility] Address [address], [address] [place] [address] Care Team Providers Care Buttonhole Facer Name Role Phone Gini Burleson APRN - MANAGEMENT DEPARTMENT CHAIR Primary Care Provider Reason for Visit * Reason Comments Medication Refill Encounter Details Date Type Department Care Team (Late st Contact Info) Description 01/20/2025 Refill [facility] [place] [address] [place] [phone] Gini Burleson, PANEL INSTRUMENT REPAIRER - MANAGEMENT DEPARTMENT CHAIR [place] [phone] Medication Refill Social History Tobacco Use Types Packs/Day Years Used Date Smoking Tobacco: Former Cigarettes Pipe Passive Smoke Exposure: Past Smokeless Tobacco: Never Alcohol Use Standard Drinks/Week Comments Not Currently 4 (1 standard drink = 0.6 oz pur e alcohol) daily/wine [facility] Utilities Answer Date Recorded In the past 12 months has [employer], gas, oil, or water [employer] threatened to shut off services in your [...] a nursing home (including now)? No 11/16/2023 Housing Stability Vital Sign Answer Jayce e Recorded In the last 12 months, was t here a time when you were not able to pay the mortgage or rent on time? No 08/15/2024 In the past 12 months, how m any times have you moved where you were living? 0 08/15/2024 At any time in the past 12 m [facility], were you homeless or living in a nursing home (including now)? 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
--- OUTSIDE RECORDS SUMMARY | 2025-01-31 08:12 | XMS_ITS | Clinical Summary ---
Author Organization [facility] Address [address], [address] [place] [address] Care Team Providers Care Preschool Teacher Aide Name Role Phone Gini Burleson APRN - INDUSTRIAL ROOFER HELPER Primary Care Provider Allergies Active Allergy Reactions [...] Type Department Care Team Description 01/20/2025 Refill [facility] [address] [place] [phone] Gini Burleson, LOCAL AREA NETWORK ADMINISTRATOR - INDUSTRIAL ROOFER HELPER Medication Refill 01/11/2025 Abstract [facility] [address] [place] [address] Gini Burleson, LOCAL AREA NETWORK ADMINISTRATOR - INDUSTRIAL ROOFER HELPER 11/23/2024 Telephone [facility] [address] [place] [address] Jeison Nelson, DO medication not working 11/10/2024 8:40 AM EDT Office Visit [facility] [address] [place] [address] Jeison Nelson, DO 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 No 11/16/2023 Housing Stability Vital Sign Answer Jayce e Recorded In the last 12 months, was t here a time when you were not able to pay the mortgage or rent on time? No 08/15/2024 In the past 12 months, how m any times have you moved where you were living? 0 08/15/2024 At any time in the past 12 m [facility], were you homeless or living in a prison (including now)? 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 Not on file Not [...] Completed 09/08/2018, , 10/03/2013 Colonoscopy Discontinued 04/15/2022, 040 06/2018, 07/10/2010 (Previously completed) Pneumococcal 50+ years Vaccine [...] 0 - 199 mg/dL 05/16/2024 10:02 AM EST [employer] Comment: Cholesterol Guidelines: <200 Desirable 200-240 Borderline >240 Undesirable HDL 54 >40 mg/dL 05/16/2024 10:02 AM EST [employer] Comment: HDL Guidelines: <40 Undesirable 40-59 Borderline >59 Desirable LDL Cholesterol 90 0 - 100 mg/dL 05/16/2024 10:02 AM [employer] Comment: LDL Guidelines: <100 Desirable 100-129 Near to/above Desirable 130-159 Borderline >159 Undesirable Direct (measured) LDL and calculated LDL are not interchangeable tests. Chol/HDL Ratio 2.9 05/16/2024 10:02 AM EST [employer] Triglycerides 56 <150 mg/dL 05/16/2024 10:02 AM [employer] Comment: Triglyceride Guidelines: <150 Desirable 150-199 Borderline 200-499 High >499 Very high Based on AHA Guidelines for fasting triglyceride, March 2012. VLDL 11 1 - 30 mg/dL 05/16/2024 10:02 AM [employer] Blood BLOOD SPECIMEN / Unknown 05/16/2024 10:02 AM EST 05/16/2024 10:03 AM EST Gini Burleson LOCAL AREA NETWORK ADMINISTRATOR - INDUSTRIAL ROOFER HELPER CHEMISTRY ORDERABLES Fi nal Result [facility] [address] [place] [address], [place] [phone] [facility] [address] [place] [address], [place] [phone] * CT Abdomen Pelvis W Contrast (01/01/2024 11:53 AM EDT) Anatomical Region Laterality Modality Computed Tomogra phy Historical Provider MD IMG CT ORDERABLES Final R esult * HM COLONOSCOPY (04/15/2022) Historical Provider MD HEALTH MAINTENANCE Final Result from Last 3 Months or Most Recently Relevant to Health Maintenance Insurance RAILROAD MEDICARE [employer] MEDICARE [employer]ICAL [employer] Advance Directives Documents on File Type Date Recorded Patient Garage Door Service Technician Expl anation ACP-Do Not Resuscitate 04/21/2022 9:41 AM 04/21/22 DNR Comfort Care * DNR-CC (Latest Code Status on File) Date Activated Date Inactivated Comments 04/23/2022 12:08 AM Healthcare Agents on File Name Relationship Healthcare Agent Relationshi p Communication Ashleigh Penn Spouse Primary Decision Maker Care Teams Preschool Teacher Aide Relationship Specialty Start Date End Date Gini Burleson, LOCAL AREA NETWORK ADMINISTRATOR - INDUSTRIAL ROOFER HELPER [address] [place] [address] PCP - General 01/09/16
--- OUTSIDE RECORDS SUMMARY | 2025-01-31 08:12 | XMS_ITS | Encounter Summary ---
Author Organization [facility] [facility] tem Address [id number] [address] [place] [address] Care Team Providers Care Static Balancer Name Role Phone Gini Burleson Carol BEUNROSTRO-REQUIREMENTS MANAGER Primary Care Provider [phone] Encounter Details Date Type Department Care Team (Late Contact Info) Description 11/12/2023 Orders [facility] [address] [place] [phone] Kelsy Riggs PA-C [address] [place], [place] [phone] Social History Tobacco Use Types Packs/Day Years [...] 02/02/2025 11:40 AM EDT Office Visit [facility] [address] [place] [address] Marlys Garcia MD [address], [address] [address] documented as of this encounter Procedures Procedure [...] Head, Neuro, Vascular, Head and Neck, Neuro Sargents ra N/A Computed Tomography us Kelsy Riggs PA-C IMG CT ORDERABLES Final Res ult * CT angiogram head (10/30/2023 10:25 AM EDT) Anatomical Region Laterality Modality Head, Neuro, Vascular, Head and Neck, Neuro Sargents ra N/A Computed Tomography us Kelsy Riggs PA-C IMG CT ORDERABLES Final Res ult * CT angiogram carotid (10/30/2023 10:22 AM EDT) Anatomical Region Laterality Modality Neuro, Neck, Vascular, Neuro Covera N/A Computed Tomography us Kelsy Riggs PA-C IMG CT ORDERABLES Final Res ult documented in this encounter Visit Diagnoses Not on filedocumented in this encounter Care Teams Static Balancer Relationship Specialty Start Date End Date Gini Burleson APRN-REQUIREMENTS MANAGER [address] [place] [phone] PCP - General Family Medicine 12/21/23 documented as of this encounter
--- OUTSIDE RECORDS SUMMARY | 2025-01-31 08:12 | XMS_ITS | Encounter Summary ---
Author Organization [facility] tem Address [id number] [address] [place] [address] Care Team Providers Care Application Security Architect Name Role Phone Sarah BethGini Carol BUENROSTRO-CHINESE LANGUAGE PROFESSOR Primary Care Provider [phone] Encounter Details Date Type Department Care Team (Late Contact Info) Description 10/31/2023 Orders Only [facility] [employer] [address] [place] [phone] Transcribe, Orders Support User Pain Social [...] AM EDT Office Visit [facility] [place] [address] [place] [address] Marlys Garcia MD [address], [address] [address] documented as of this encounter Results * CT angiogram carotid (10/30/2023 5:05 PM EDT) us Scanning Provider External IMG CT ORDERABLES Fin al Result * CT brain without contrast stroke alert (10/30/2023 2:55 PM EDT) us Scanning Provider External IMG CT ORDERABLES Fin al Result documented in this encounter Visit Diagnoses Diagnosis Pain Generalized pain documented in this encounter Care Teams Application Security Architect Relationship Specialty Start Date End Date Gini Burleson, EXCHANGE ENGINEER-CHINESE LANGUAGE PROFESSOR [address] [place] [phone] PCP - General Family Medicine 12/21/23 documented as of this encounter
--- OUTSIDE RECORDS SUMMARY | 2025-01-31 08:16 | XMS_ITS | CCD ---
Author Organization [facility] Care Team Providers Care Lehr Stripper Name Role Phone Candace Giron Primary Care Provider UNKNOWN, PHYSICIAN Referring Unavailable CANDACE GIRON Primary Care Unavailable KENYATTA MORA Attending Unavailable KENYATTA MORA Admitting Unavailable Candace Sevilla APRN, CNP Primary Care Provider CANDACE GIRON Primary Care Physician [phone] Candace Sevilla APRN, CNP Primary Care Provider PORTER Giron Primary Care Provider MD Christiano Ravi Attending Provider LEÓN, DR AGUERO Admitting Unavailable LEÓN, DR AGUERO Attending Unavailable [facility], DR ATKINSON Consulting Unavailable LEÓN, DR AGUERO Consulting Unavailable PORTER Giron Primary Care Provider DO Leonides Velasquez Emergency Provider [phone] Leonides Velasquez Admitting Unavailable Candace Giron Primary [...] Unavailable Chintan GRACIA Attending Unavailable Orissac, Humaira Ayon Attending Unavailable BREE, CANDACE Primary Care Unavailable Makayla Corona Attending Unavailable BREE, CANDACE Primary Care Unavailable Charles Kim Attending Unavailable Charles Kim Referring Unavailable BREE, CANDACE Primary Care Unavailable ELTAHAWY, EHAB Attending Unavailable ELTAHAWY, EHAB Attending Unavailable Bree COAL GRADER - PAPER GUILLOTINE OPERATOR, Candace M Primary Care Provider CANDACE GIRON M PAPER GUILLOTINE OPERATOR Attending Unavailable BREE, CANDACE M Referring Unavailable BREE, CANDACE M Primary Care Unavailable BREE, CANDACE M Referring Unavailable BREE, CANDACE M Primary Care Unavailable ELTAHAWY, EHAB A Referring Unavailable BREE, CANDACE M Primary Care Unavailable BREE, CANDACE M Referring Unavailable BREE, CANDACE M Primary Care Unavailable Unavailable Primary Care Provider UnavailDAFNE Moss Attending Unavailable ROMERO SALINAS Attending Unavailable Allergies Allergy Classification Reported Allergen(s) Allergy Type Date of Onset Reaction(s) Facility NSAIDs (2 sources) Ibuprofen Drug Allergy 4 [facility] (9 sources) NSAIDs Propensity to adverse reactions to drug 4 [place] (5 sources) Shellfish-Deriv ed Products Propensity to adverse reactions to drug 8 [place] (20 sources) Ibuprofen; Translations: [ibuprofen] Drug Allergy 1 HYPERTENSION [facility] (1 source) Ibuprofen Drug Allergy 2 [facility] Repository (8 sources) Memantine; Translations: [MEMANTINE] Drug Allergy 4 Headache [facility] Repository (3 sources) NSAIDs; Translations: [NSAIDS (NON-STEROIDAL ANTI-INFLAMMATO RY DRUG)] Propensity to adverse reactions to drug (disorder) 4 [facility] Repository (2 sources) Non-steroidal anti-inflammato ry agent Propensity to adverse reactions to drug 4 [facility] (9 sources) Non-steroidal anti-inflammato ry agent Drug Intolerance 4 [facility] NEGATED: Highlighted row has been ruled out! (2 sources) Other Propensity to adverse reactions 3 Hives [facility] [employer] Work Phone: Medications Current Medications Medication Drug [...] tablet by mouth in the morning. 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) Take 4 mg by mouth at bedtime 30 tablet 3 01/26/2025 02/25/2025 Active clopidogrel 75 mg oral tablet (2 [...] Date: 12/31/23 Status: Ordered Start: 02-05-2021 End: 02-25-2025 take 1 tablet by mouth once daily at bedtime donepezil (Aricept) 10 MG tablet Indications: Memory loss TAKE 1 TABLET BY MOUTH EVERY DAY AT BEDTIME 90 tablet 1 12/17/2023 01/26/2025 Discontinued (Reorder) doxycycline hyclate 100 mg oral capsule (3 sources) Tetracycline-class Drug Start: 01-27-2024 doxycy vasquez hyclate 100 mg Cap Refills(s) 0 Start Date: 01/27/24 Status: Ordered Start: 01-11-2024 End: 01-25-2024 take 1 capsule by mouth twice daily doxycycline hyclate 100 mg Cap 100 mg = 1 cap(s), Oral, BID, X 14 day(s), # 28 cap(s), Refills(s) 0, Pharmacy: [facility] 1155, 185, cm, 01/11/24 11:29:00 EDT, [...] Ordered levothyroxine sodium 0.05 mg oral tablet (12 sources) l-Thyroxi ne Start: 02-01-2024 take 1 [...] Active losartan potassium 25 mg oral tablet (16 sources) Angiotensin 2 Receptor Chelsie Start: 09-22-2022 [...] 07/17/2020 Active QUEtiapine 50 mg oral tablet (13 sources) Atypical Antipsychotic Start: 08-15-2024 take 2 [...] bedtime June 06, 2023 12:00am Start: 04-02-2023 End: 01-26-2025 take 1 tablet by mouth at bedtime QUEtiapine (SEROquel) 25 MG tablet TAKE 1 TABLET BY MOUTH AT BEDTIME FOR DYSTHYMIA 04/02/2023 01/26/2025 Discontinued (Therapy completed) sildenafil 100 mg oral tablet (20 sources) [...] 3 10/12/2023 Active take [address] [facility] every twenty-four hours in the morning tamsulosin [...] Active traZODone hydrochloride 50 mg oral tablet (10 sources) Serotonin Reuptake Inhibitor Start: 05-16-2024 End: 02-25-2025 take 1 tablet by mouth in the morning traZODone (Desyrel) 50 MG tablet Indications: Insomnia due to medical condition Take 1 tablet (50 mg) by mouth in the morning and 1 tablet (50 mg) before bedtime. 60 tablet 11 01/26/2025 02/25/2025 Active Completed/Discontinued Medications Medication Drug Class(es) Dates Sig (Normalized) Sig (Original) acetaminophen 325 mg / HYDROcodone bitartrate 5 mg oral tablet (3 sources) Opioid Agonist Start: 03-13-2020 End: 04-15-2022 take 1 tablet by mouth every four to six hours Hydrocodone-Acetam inophen ([place]) 5-325 mg tablet Discontinued 1 - 2 TAB PO EVERY 4-6 HOURS 14 March 13, 2020 April 15, 2022 7:23am ibuprofen 600 mg oral tablet (3 sources) Nonsteroidal Anti-inflammatory Drug Start: 03-13-2020 End: 04-15-2022 Ibuprofen Discontinued 600 MG PO EVERY 4-6 HOURS 14 March 12, 2020 11:00pm April 15, 2022 7:23am do not exceed 4 doses in a 24 hour period OLANZapine 2.5 mg oral tablet (6 sources) Atypical Antipsychotic Start: 11-10-2024 End: 01-26-2025 take 2 tablets by mouth at bedtime OLANZapine (ZyPREXA) 2.5 MG tablet Take 5 mg by mouth at bedtime 11/10/2024 01/26/2025 Discontinued (Therapy completed) Problems Active Problems Problem Classification Problem Date Documented Da te Episodic/Chronic Acute cerebrovascular disease (2 sources) Cerebrovascular accident due to right carotid artery stenosis; Translations: [Cerebral infarction due to unspecified occlusion or stenosis of right carotid arteries] Onset: 11-12-2023 01-26-2025 Chronic Alcohol-related disorders (2 sources) Alcohol abuse; Translations: [...] dementia, and amnestic and other cognitive disorders (20 sources) Behavioral and psychological symptoms of dementia; Translations: [Behavioral and psychological symptoms of dementia] Onset: 10-19-2023 10-19-2023 Chronic Diseases of mouth; excluding dental (1 source) Atrophy of tongue papillae; Translations: [Smooth tongue] Episodic Disorders of lipid metabolism (20 sources) Pure hypercholesterolemia; Translations: [Hyperlipidemia] Onset: 11-11-2012 11-11-2012 Chronic E Codes: Fall (2 sources) Fall; Translations: [Unspecified fall, initial encounter] Episodic Essential hypertension (20 sources) Essential hypertension; Translations: [Hypertensive disorder] Onset: 11-11-2012 11-11-2012 Chronic Genitourinary symptoms and ill-defined conditions (2 sources) Urinary catheter in situ 01-27-2024 Chronic Headache; including migraine (1 source) Headache; including migraine; Translations: [Headache, unspecified] Onset: 06-06-2023 Heart valve disorders (3 sources) Nonrheumatic aortic (valve) insufficiency; Translations: [Rheumatic disorders of both mitral and aortic valves] Onset: 12-02-2023 Chronic Hyperplasia of prostate (14 sources) Benign prostatic hypertrophy with outflow obstruction; Translations: [Benign prostatic hyperplasia with lower urinary tract symptoms] Onset: 01-13-2022 Chronic Miscellaneous mental health disorders (6 sources) Male erectile disorder; Translations: [Erectile dysfunction] Onset: 01-13-2022 Chronic Mood disorders (13 sources) Moderate recurrent major depression; Translations: [Major depressive disorder, recurrent, moderate] Onset: 10-20-2022 10-20-2022 Chronic Occlusion or stenosis of precerebral arteries (20 sources) Bilateral stenosis of carotid arteries; Translations: [Occlusion and stenosis of bilateral carotid arteries] Onset: 06-24-2022 Chronic Osteoarthritis (7 sources) Arthritis 01-05-2019 Chronic Other diseases of kidney and ureters (2 sources) Urinary tract obstruction; Translations: [Other obstructive and reflux uropathy] Onset: 01-13-2022 Episodic Other gastrointestinal disorders (1 source) Other [...] Chronic Other male genital disorders (2 sources) Male erectile dysfunction, unspecified; Translations: [Impotence of organic origin] Onset: 11-12-2023 01-26-2025 Chronic Other male genital disorders (2 sources) Hydrocele of testis; Translations: [Hydrocele, unspecified] Onset: 01-27-2024 Episodic Other nervous system disorders (1 source) Impaired cognition 11-14-2024 Episodic Residual codes; unclassified (2 sources) 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; Translations: [Insomnia due to medical condition] 01-26-2025 Chronic Residual codes; unclassified (1 source) Poor short-term memory ; Translations: [Other amnesia] Episodic Residual codes; unclassified (1 source) Pain, unspecified; Translations: [Pain, unspecified] Onset: 10-31-2023 Episodic Residual codes; unclassified (3 sources) Device in situ; Translations: [Presence of other specified devices] Onset: 01-11-2024 Episodic Residual codes; unclassified (4 sources) Amnesia; Translations: [Other amnesia] 06-08-2024 Episodic Spondylosis; intervertebral disc disorders; other back problems (1 source) Acute low back pain; Translations: [Acute midline low back pain without sciatica] Episodic Thyroid disorders (2 sources) Acquired hypothyroidism; Translations: [Hypothyroidism, unspecified] Onset: 12-01-2023 08-15-2024 Chronic Transient cerebral ischemia (3 sources) Carotid artery syndrome (hemispheric); Translations: [Carotid territory transient ischemic attack] Onset: 11-12-2023 01-26-2025 Chronic Unclassified (2 sources) Patient encounter status; [...] Behavioral and psychological symptoms of dementia 11-14-2024 Past or Other Problems Problem Classification Problem Date Documented Da te Episodic/Chronic Conditions associated with dizziness or vertigo (6 sources) Dizziness; Translations: [Dizziness and giddiness] Onset: 06-06-2023 Episodic Deficiency and other anemia (1 source) Other iron deficiency anemias; Translations: [Other iron deficiency anemias] Onset: 12-01-2023 Episodic Diabetes mellitus without complication (2 sources) Impaired fasting glycemia; Translations: [Impaired fasting glucose] Onset: 05-16-2024 05-16-2024 Episodic Genitourinary symptoms and ill-defined conditions (20 sources) Shivam hematuria; Translations: [Nocturia] Onset: 08-04-2023 01-05-2019 Episodic Inflammatory conditions of male genital organs (6 sources) Epididymitis; Translations: [Epididymitis] Onset: 01-27-2024 Episodic Other aftercare (2 sources) Surgical follow-up; Translations: [Encounter for follow-up examination after completed treatment for conditions other than malignant neoplasm] Onset: 01-14-2024 01-26-2025 Episodic Other gastrointestinal disorders (4 sources) Stool DNA-based colorectal cancer screening positive; Translations: [Other fecal abnormalities] Onset: 11-12-2023 04-15-2022 Episodic Other male genital disorders (5 sources) Disorder of male genital organ; Translations: [Other specified disorders of the male genital organs] Onset: 01-11-2024 Episodic Other screening for suspected conditions (not mental disorders or infectious disease) (4 sources) Patient encounter status; Translations: [Encounter for screening for malignant neoplasm of prostate] Onset: 05-16-2024 Episodic Residual codes; unclassified (2 sources) Body mass index 20-24 - normal; Translations: [Body mass index (BMI) 24.0-24.9, adult] Onset: 11-16-2023 01-26-2025 Episodic Residual codes; unclassified (2 sources) Urinary catheter in situ; Translations: [Presence of other specified devices] Onset: 08-09-2024 01-26-2025 Episodic Screening and history of mental health and substance abuse codes (7 sources) Ex-smoker; Translations: [Personal history of nicotine dependence] Onset: 11-16-2023 01-07-2023 Episodic Unclassified (2 sources) Onset: 05-16-2024 05-16-2024 Viral infection (3 sources) Disease caused by 2019-nCoV; Translations: [COVID-19] Onset: 11-12-2023 06-06-2023 Episodic Results Test Name Value Interpretation Reference Range [facility] Heavy Metal Panel 08-18-19 25 Mercury <2.5 Normal <=10.0 [facility] Comment on above: Result Comment: (NOT E) [...] developed and its performance characteristics determined by [facility]. It has not been cleared or approved by the [place] Food and Drug Administration. This test was performed in a CLIA certified laboratory and is intended for clinical purposes. Performed By: [facility] [address] [place] [id number] Cigarette Packer: Ted Rao MD, PhD CLIA Number: [id number] Performed By: #### T CHARITO JORDAN CP #### [facility] [address] [place] [address] Chemist Internship: Анна Biswas MD #### B12FOL, TREP #### [facility] [address] [place] [address] Chemist Internship: Arnav Barnes MD #### ISAI #### [address] [address] Chemist Internship: Boogie Espinal MD Arsenic <10.0 Normal <=12.0 [facility] Comment on above: Result Comment: (NOT E) [...] developed and its performance characteristics determined by [facility]. It has not been cleared or approved by the [place] Food and Drug Administration. This test was performed in a CLIA certified laboratory and is intended for clinical purposes. Performed By: [facility] [address] [place] [id number] Cigarette Packer: Ted Rao MD, PhD CLIA Number: [id number] Performed By: #### T CHARITO JORDAN, CP #### [facility] [address] [place] [address] Chemist Internship: Анна Biswas MD #### B12FOL, TREP #### [place] [address] [place], [place] [id number] Chemist Internship: Arnav Barnes MD #### ISAI #### [address] [id number] Chemist Internship: Boogie Espinal MD Cadmium, Blood <1.0 Normal <=5.0 [facility] Comment on above: Result Comment: (NOT [...] developed and its performance characteristics determined by [facility]. It has not been cleared or approved by the [place] Food and Drug Administration. This test was performed in a CLIA certified laboratory and is intended for clinical purposes. Performed By: [facility] [address] [place] [address] Cigarette Packer: Ted Rao MD, PhD CLIA Number: [id number] Performed By: #### T CHARITO JORDAN CP #### [facility] [address] [place] [address] Chemist Internship: Анна Biswas MD #### B12GAMALIEL, TREP #### [facility] [address] [place], [place] [phone] Chemist Internship: Arnav Barnes MD #### ISAI #### [facility] [address] [place] [address] Chemist Internship: Boogie Espinal MD B12/Folate Panelon Cobalamin (Vitamin B12) [Mass/Vol] 717 pg/mL Normal 232-1245 [facility] Comment on above: Performed By: #### T DELLAX, CDP, CP #### [facility] [address] [facility] [place] [address] Chemist Internship: Анна Biswas MD #### B12FOL, TREP #### [facility] [address] [place], [place] [id number] Chemist Internship: Arnav Barnes MD #### ISAI #### [facility] [address] [place] [address] Chemist Internship: Boogie Espinal MD Folic Acid 12.0 ng/mL Normal 4.8-24.2 [facility] Comment on above: Performed By: #### T JULIAN, CDP, CP #### [facility] [address] [place] [address] Chemist Internship: Анна Biswas MD #### B12FOL, TREP #### [facility] [address] [place], [place] [id number] Chemist Internship: Arnav Barnes MD #### ISAI #### [facility] [address] [place] [address] Chemist Internship: Boogie Espinal MD CBC with Auto Differentialon 08-15-2024 Basophils (Bld) [#/Vol] 0.03 10*3/uL [facility] Basophils/100 WBC (Bld) 1 % 0 - 2 % [facility] Eosinophils (Bld) [#/Vol] 0.05 10*3/uL [facility] Eosinophils/100 WBC (Bld) 1 % 0 - 5 % [facility] Erythrocyte distribution width (RBC) [Ratio] 13.1 % 12.1 - 15.2 % [facility] Hematocrit (Bld) [Volume fraction] 41.7 % 41.0 - 53.0 % [facility] Hemoglobin (Bld) [Mass/Vol] 14.1 g/dL 13.5 - 17.5 g/dL [facility] Immature granulocytes (Bld) [#/Vol] 0.01 10*3/uL [facility] Immature granulocytes/100 WBC (Bld) 0 % 0 - 5 % [facility] Interpretation and review of laboratory results Abnormal [facility] Lymphocytes/100 WBC (Bld) 25 % 13 - 44 % [facility] Lymphocytes/100 WBC (Bld) 1.46 % [facility] MCH (RBC) [Entitic mass] 32 pg 26.0 - 34.0 pg [facility] MCHC (RBC) [Mass/Vol] 33.8 g/dL 31.0 - 37.0 g/dL [facility] MCV (RBC) [Entitic vol] 94.8 fL 80.0 - 100.0 fL [facility] Monocytes/100 WBC (Bld) 8 % 5 - 9 % [facility] Monocytes/100 WBC (Bld) 0.46 % [facility] Neutrophils/100 WBC (Bld) 65 % 39 - 75 % [facility] Platelet mean volume (Bld) [Entitic vol] 8.9 fL 6.0 - 12.0 fL [facility] Platelets (Bld) [#/Vol] 204 10*3/uL [facility] RBC (Bld) [#/Vol] 4.4 10*6/uL Low 4.50 - 5.9 0 m/uL [facility] Segmented neutrophils/100 WBC (Bld) 3.88 % [facility] WBC other (Bld) [#/Vol] 5.9 [facility] CBC with Diffon 08-15-2024 Abs. Basophil 0.03 k/uL Normal 0.00-0.20 [facility] Comment on above: Performed By: #### T SHX, CDP, CP #### [facility] [address] [place], [place] [phone] Chemist Internship: Анна Biswas MD #### B12FOZurdo, TREP #### [address] [address] Chemist Internship: Arnav Barnes MD #### ISAI #### [facility] [address] [place], [place] [id number] Chemist Internship: Boogie Espinal MD Abs.Imm.Granulocyte 0.01 k/uL Normal 0.00-0.30 [facility] Comment on above: Performed By: #### T CHARITO JORDAN, CP #### [facility] [address] [place], [place] [phone] Chemist Internship: Анна Biswas MD #### B12FOZurdo, TREP #### [address] [phone] Chemist Internship: Arnav Barnes MD #### ISAI #### [facility] [address] [place], [place] [id number] Chemist Internship: Boogie Espinal MD Abs.Neutrophil (Seg) 3.88 k/uL Normal 2.1-6.5 [facility] Comment on above: Performed By: #### T CHARITO JORDAN, CP #### [facility] [address] [place] [address] Chemist Internship: Анна Biswas MD #### B12FOL, TREP #### [address] [id number] Chemist Internship: Arnav Barnes MD #### ISAI #### [facility] [address] [place], [place] [id number] Chemist Internship: Boogie Espinal MD Basophils/100 WBC (Bld) 1 % Normal 0-2 [facility] Comment on above: Performed By: #### T CHARITO JORDAN, CP #### [facility] [address] [place], [place] [phone] Chemist Internship: Анна Biswas MD #### B12FOZurdo, TREP #### [facility] [address] [place] [address] Chemist Internship: Arnav Barnes MD #### ISAI #### [facility] [address] [place], [place] [id number] Chemist Internship: Boogie Espinal MD Eosinophils (Bld) [#/Vol] 0.05 10*3/uL Normal 0.00-0.40 [facility] Comment on above: Performed By: #### CHARITO RUIZ, CP #### [facility] [address] [place], [place] [id number] Chemist Internship: Анна Biswas MD #### B12GAMALIEL, TREP #### [address] [id number] Chemist Internship: Arnav Barnes MD #### ISAI #### [facility] [address] [place], [place] [id number] Chemist Internship: Boogie Espinal MD Eosinophils/100 WBC (Bld) 1 % Normal 0-5 [facility] Comment on above: Performed By: #### CHARITO RUIZ, CP #### [facility] [address] [place], [place] [id number] Chemist Internship: Анна Biswas MD #### B12FOZurdo, TREP #### [facility] [address] [place] [id number] Chemist Internship: Arnav Barnes MD #### ISAI #### [facility] [address] [place] [address] Chemist Internship: Boogie Espinal MD Erythrocyte distribution width (RBC) [Ratio] 13.1 % Normal 12.1-15.2 [facility] Comment on above: Performed By: #### T CHARITO JORDAN, CP #### [facility] [address] [place], [place] [phone] Chemist Internship: Анна Biswas MD #### B12FOL, TREP #### [facility] [address] [place] [address] Chemist Internship: Arnav Barnes MD #### ISAI #### [facility] [address] [place], [place] [id number] Chemist Internship: Boogie Espinal MD Hematocrit (Bld) [Volume fraction] 41.7 % Normal 41.0-53.0 [facility] Comment on above: Performed By: #### T CHARITO JORDAN, CP #### [facility] [address] [place], [place] [address] Chemist Internship: Анна Biswas MD #### B12FOZurdo, TREP #### [facility] [address] [place] [address] Chemist Internship: Arnav Barnes MD #### ISAI #### [facility] [address] [place], [place] [id number] Chemist Internship: Boogei Espinal MD Hemoglobin (Bld) [Mass/Vol] 14.1 g/dL Normal 13.5-17.5 [facility] Comment on above: Performed By: #### T CHARITO JORDAN, CP #### [facility] [address] [place], [place] [phone] Chemist Internship: Анна Biswas MD #### B12FOL, TREP #### [facility] [address] [place] [address] Chemist Internship: Arnav Barnes MD #### ISAI #### [facility] [address] [place], [place] [id number] Chemist Internship: Boogie Espinal MD Immature granulocytes/100 WBC (Bld) 0 % Normal 0-5 [facility] Comment on above: Performed By: #### T CHARITO JORDAN, CP #### [facility] [address] [place], [place] [phone] Chemist Internship: Анна Biswas MD #### B12FOL, TREP #### [address] [id number] Chemist Internship: Arnav Barnes MD #### ISAI #### [facility] [address] [place] [address] Chemist Internship: Boogie Espinal MD Lymphocytes (Bld) [#/Vol] 1.46 10*3/uL Normal 1.00-4.80 [facility] Comment on above: Performed By: #### T CHARITO JORDAN, CP #### [facility] [address] [place], [place] [phone] Chemist Internship: Анна Biswas MD #### B12FOZurdo, TREP #### [facility] [address] [place] [address] Chemist Internship: Arnav Barnes MD #### ISAI #### [facility] [address] [place], [place] [id number] Chemist Internship: Boogie Espinal MD Lymphocytes/100 WBC (Bld) 25 % Normal 13-44 [facility] Comment on above: Performed By: #### T CHARITO JORDAN, CP #### [facility] [address] [place], [place] [phone] Chemist Internship: Анна Biswas MD #### B12FOL, TREP #### [facility] [address] [place] [address] Chemist Internship: Arnav Barnes MD #### ISAI #### [facility] [address] [place] [address] Chemist Internship: Boogie Espinal MD MCH (RBC) [Entitic mass] 32.0 pg Normal 26.0-34.0 [facility] Comment on above: Performed By: #### T CHARITO JORDAN, CP #### [facility] [facility] [address] [place], [place] [id number] Chemist Internship: Анна Biswas MD #### B12FOZurdo, TREP #### [address] [id number] Chemist Internship: Arnav Barnes MD #### ISAI #### [facility] [address] [place], [place] [id number] Chemist Internship: Boogie Espinal MD MCHC (RBC) [Mass/Vol] 33.8 g/dL Normal 31.0-37.0 [facility] Comment on above: Performed By: #### T CHARITO JORDAN, CP #### [facility] [address] [place] [address] Chemist Internship: Анна Biswas MD #### B12GAMALIEL, TREP #### [address] [id number] Chemist Internship: Arnav Barnes MD #### ISAI #### [facility] [address] [place], [place] [id number] Chemist Internship: Boogie Espinal MD MCV (RBC) [Entitic vol] 94.8 fL Normal 80.0-100.0 [facility] Comment on above: Performed By: #### T CHARITO JORDAN, CP #### [facility] [address] [place], [place] [id number] Chemist Internship: Анна Biswas MD #### B12FOZurdo, TREP #### [facility] [address] [place] [address] [phone] Chemist Internship: Arnav Barnes MD #### ISAI #### [facility] [address] [place], [place] [id number] Chemist Internship: Boogie Espinal MD Monocytes (Bld) [#/Vol] 0.46 10*3/uL Normal 0.00-1.00 [facility] Comment on above: Performed By: #### T CHARITO JORDAN, CP #### [facility] [address] [place] [address] Chemist Internship: Анна Biswas MD #### B12FOZurdo, TREP #### [facility] [address] [place] [address] Chemist Internship: Arnav Barnes MD #### ISAI #### [facility] [address] [place] [address] Chemist Internship: Boogie sEpinal MD Monocytes/100 WBC (Bld) 8 % Normal 5-9 [facility] Comment on above: Performed By: #### T CHARITO JORDAN, CP #### [facility] [address] [place] [address] Chemist Internship: Анна Biswas MD #### B12FOZurdo, TREP #### [facility] [address] [place] [address] Chemist Internship: Arnav Barnes MD #### ISAI #### [facility] [address] [place] [address] Chemist Internship: Boogie Espinal MD Neutrophil (Seg) 65 % Normal 39-75 [facility] Comment on above: Performed By: #### T CHARITO JORDAN, CP #### [facility] [address] [place] [address] Chemist Internship: Анна Biswas MD #### B12FOL, TREP #### [facility] [address] [place] [address] Chemist Internship: Arnav Barnes MD #### ISAI #### [facility] [address] [place] [address] Chemist Internship: Boogie Espinal MD Platelet mean volume (Bld) [Entitic vol] 8.9 fL Normal 6.0-12.[address] [facility] Comment on above: Performed By: #### T CHARITO JORDAN, CP #### [facility] [address] [place] [address] Chemist Internship: Анна Biswas MD #### B12GAMALIEL, TREP #### [facility] [address] [place] [address] Chemist Internship: Arnav Barnes MD #### ISAI #### [facility] [address] [place] [address] Chemist Internship: Boogie Espinal MD Platelets (Bld) [#/Vol] 204 10*3/uL Normal 140-450 [facility] Comment on above: Performed By: #### T CHARITO JORDAN, CP #### [facility] [address] [place] [address] Chemist Internship: Анна Biswas MD #### B12FOZurdo, TREP #### [facility] [address] [place] [address] Chemist Internship: Arnav Barnes MD #### ISAI #### [facility] [address] [place] [address] Chemist Internship: Boogie Espinal MD RBC (Bld) [#/Vol] 4.40 10*6/uL Low 4.50-5.90 [facility] Comment on above: Performed By: #### T CHARITO JORDAN, CP #### [facility] [address] [place] [address] Chemist Internship: Анна Biswas MD #### B12FOL, TREP #### [facility] [address] [place] [address] Chemist Internship: Arnav Banres MD #### ISAI #### [facility] [address] [place] [address] Chemist Internship: Boogie Espinal MD WBC (Bld) [#/Vol] 5.9 10*3/uL Normal 3.5-11.0 [facility] Comment on above: Performed By: #### T CHARITO JORDAN, CP #### [facility] [address] [place], [place] [phone] Chemist Internship: Анна Biswas MD #### B12FOZurdo, TREP #### [facility] [address] [place] [address] Chemist Internship: Arnav Barnes MD #### ISAI #### [facility] [address] [place] [address] Chemist Internship: Boogie Espinal MD Comp Metabolic Profon 2024 Albumin [Mass/Vol] 4.3 g/dL Normal 3.5-5.2 [facility] Comment on above: Performed By: #### T CHARITO JORDAN, CP #### [facility] [address] [place], [place] [phone] Chemist Internship: Анна Biswas MD #### B12FOZurdo, TREP #### [facility] [address] [place] [address] Chemist Internship: Arnav Barnes MD #### ISAI #### [facility] [address] [place] [address] Chemist Internship: Boogie Espinal MD Albumin/Glob Ratio 1.5 Normal 1.0-2.5 [facility] Comment on above: Performed By: #### T CHARITO JORDAN, CP #### [facility] [address] [place] [address] Chemist Internship: Анна Biswas MD #### B12FOL, TREP #### [facility] [address] [place] [address] Chemist Internship: Arnav Barnes MD #### ISAI #### [facility] [address] [place], [place] [id number] Chemist Internship: Boogie Espinal MD Alkaline Phos 49 U/L Normal 40-129 [facility] Comment on above: Performed By: #### T CHARITO JORDAN, CP #### [facility] [address] [place] [address] Chemist Internship: Анна Biswas MD #### B12FOL, TREP #### [facility] [address] [place] [address] Chemist Internship: Arnav Barnes MD #### ISAI #### [facility] [address] [place], [place] [id number] Chemist Internship: Boogie Espinal MD ALT [Catalytic activity/Vol] 18 U/L Normal 5-41 [facility] Comment on above: Performed By: #### T CHARITO JORDAN, CP #### [facility] [address] [place] [address] Chemist Internship: Анна Biswas MD #### B12FOL, TREP #### [facility] [address] [place] [address] Chemist Internship: Arnav Barnes MD #### ISAI #### [facility] [address] [place], [place] [id number] Chemist Internship: Boogie Espinal MD Anion gap [Moles/Vol] 10 mmol/L Normal 9-17 [facility] Comment on above: Performed By: #### T CHARITO JORDAN, CP #### [facility] [address] [place] [address] Chemist Internship: Анна Biswas MD #### B12FOL, TREP #### [facility] [address] [place] [address] Chemist Internship: Arnav Barnes MD #### ISAI #### [facility] [address] [place] [address] Chemist Internship: Boogie Espinal MD AST [Catalytic activity/Vol] 19 U/L Normal <40 [facility] Comment on above: Performed By: #### T CHARITO JORDAN, CP #### [facility] [address] [place] [address] Chemist Internship: Анна Biswas MD #### B12FOL, TREP #### [facility] [address] [place] [address] Chemist Internship: Arnav Barnes MD #### ISAI #### [facility] [address] [place], [place] [id number] Chemist Internship: Boogie Espinal MD Bilirubin [Mass/Vol] 0.4 mg/dL Normal 0.3-1.2 [facility] Comment on above: Performed By: #### T CHARITO JORDAN, CP #### [facility] [address] [place], [place] [id number] Chemist Internship: Анна Biswas MD #### B12FOL, TREP #### [facility] [address] [place] [address] Chemist Internship: Arnav Barnes MD #### ISAI #### [facility] [address] [place], [place] [id number] Chemist Internship: Boogie Espinal MD Calcium [Mass/Vol] 9.5 mg/dL Normal 8.6-10.4 [facility] Comment on above: Performed By: #### T CHARITO JORDAN, CP #### [facility] [address] [place] [address] Chemist Internship: Анна Biswas MD #### B12FOL, TREP #### [facility] [address] [place] [address] Chemist Internship: Arnav Barnes MD #### ISAI #### [facility] [address] [place], [place] [id number] Chemist Internship: Boogie Espinal MD Chloride [Moles/Vol] 103 mmol/L Normal 98-107 [facility] Comment on above: Performed By: #### T CHARITO JORDAN, CP #### [facility] [address] [place] [address] Chemist Internship: Анна Biswas MD #### B12FOL, TREP #### [facility] [address] [place] [address] Chemist Internship: Arnav Barnes MD #### ISAI #### [facility] [address] [place], [place] [id number] Chemist Internship: Boogie Espinal MD CO2 [Moles/Vol] 26 mmol/L Normal 20-31 [facility] Comment on above: Performed By: #### T CHARITO JORDAN, CP #### [facility] [address] [place], [place] [phone] Chemist Internship: Анна Biswas MD #### B12FOL, TREP #### [facility] [address] [place] [address] Chemist Internship: Arnav Barnes MD #### ISAI #### [facility] [address] [place], [place] [id number] Chemist Internship: Boogie Espinal MD Creatinine [Mass/Vol] 0.9 mg/dL Normal 0.7-1.2 [facility] Comment on above: Performed By: #### T CHARITO JORDAN, CP #### [facility] [address] [place] [address] Chemist Internship: Анна Biswas MD #### B12FOL, TREP #### [facility] [address] [place] [address] Chemist Internship: Arnav Barnes MD #### ISAI #### [facility] [address] [place], [place] [id number] Chemist Internship: Boogie Espinal MD GFR/1.73 sq M.predicted among non-blacks MDRD (S/P/Bld) [Vol rate/Area] 87 mL/min/{1.73_m2} Normal >[address] [facility] Comment on above: Result Comment: These [...] By: #### T CHARITO JORDAN CP #### [facility] [address] [place], [place] [id number] Chemist Internship: Анна Biswas MD #### B12GAMALIEL TREP #### [facility] [address] [place] [address] [phone] Chemist Internship: Arnav Barnes MD #### ISAI #### [facility] [address] [place] [address] Chemist Internship: Boogie Espinal MD Glucose [Mass/Vol] 113 mg/dL High 70-99 [facility] Comment on above: Performed By: #### CHARITO RUIZ CP #### [facility] [address] [place], [place] 1557990 Chemist Internship: Анна Biswas MD #### B12GAMALIEL TREP #### [facility] [address] [place] [address] [phone] Chemist Internship: Arnav Barnes MD #### ISAI #### [facility] [address] [place], [place] [id number] Chemist Internship: Boogie Espinal MD Potassium [Moles/Vol] 4.1 mmol/L Normal 3.7-5.3 [facility] Comment on above: Performed By: #### T CHARITO JORDAN, CP #### [facility] [address] [place], [place] [id number] Chemist Internship: Анна Biswas MD #### B12FOL, TREP #### [facility] [address] [place] [address] [phone] Chemist Internship: Arnav Barnes MD #### ISAI #### [facility] [address] [place], [place] [id number] Chemist Internship: Boogie Espinal MD Protein [Mass/Vol] 7.2 g/dL Normal 6.4-8.3 [facility] Comment on above: Performed By: #### T CHARITO JORDAN, CP #### [facility] [address] [place], [place] [phone] Chemist Internship: Анна Biswas MD #### B12FOZurdo, TREP #### [facility] [address] [place] [address] Chemist Internship: Arnav Barnes MD #### ISAI #### [facility] [address] [place], [place] [id number] Chemist Internship: Boogie Espinal MD Sodium [Moles/Vol] 139 mmol/L Normal 135-144 [facility] Comment on above: Performed By: #### T CHARITO JORDAN, CP #### [facility] [address] [place], [place] [phone] Chemist Internship: Анна Biswas MD #### B12FOL, TREP #### [facility] [address] [place] [address] Chemist Internship: Arnav Barnes MD #### ISAI #### [facility] [address] [place], [place] [id number] Chemist Internship: Boogie Espinal MD Urea nitrogen [Mass/Vol] 17 mg/dL Normal 8-23 [facility] Comment on above: Performed By: #### T SHX, CDP, CP #### [facility] [address] [place] [address] Chemist Internship: Анна Biswas MD #### B12FOL, TREP #### [facility] [address] [place] [address] Chemist Internship: Arnav Barnes MD #### ISAI #### [facility] [address] [place] [address] Chemist Internship: Boogie Espinal MD Comprehensive Metabolic Pane [facility] 08-15-2024 Albumin [Mass/Vol] 4.3 g/dL 3.5 - 5.2 g/dL [facility] Albumin/Globulin [Mass ratio] 1.5 {ratio} 1.0 - 2.5 [facility] ALP [Catalytic activity/Vol] 49 U/L 40 - 129 U/L [facility] ALT [Catalytic activity/Vol] 18 U/L 5 - 41 U/L [facility] Anion gap [Moles/Vol] 10 mmol/L 9 - 17 mmol/L [facility] AST [Catalytic activity/Vol] 19 U/L NINF - 40 U/L [facility] Bilirubin [Mass/Vol] 0.4 mg/dL 0.3 - 1 .2 mg/dL [facility] Calcium [Mass/Vol] 9.5 mg/dL 8.6 - 10. 4 mg/dL [facility] Chloride [Moles/Vol] 103 mmol/L 98 - 10 7 mmol/L [facility] CO2 [Moles/Vol] 26 mmol/L 20 - 31 mmol/L [facility] Creatinine [Mass/Vol] 0.9 mg/dL 0.7 - 1.2 mg/dL [facility] Est, Glom Filt Rate 87 - PINF [facility] Comment on above: These results are [...] 113 mg/dL High 70 - 99 mg/dL [facility] Interpretation and review of laboratory results Abnormal [facility] Potassium [Moles/Vol] 4.1 mmol/L 3.7 - 5.3 mmol/L [facility] Protein [Mass/Vol] 7.2 g/dL 6.4 - 8.3 g/dL [facility] Sodium [Moles/Vol] 139 mmol/L 135 - 144 mmol/L [facility] Urea nitrogen [Mass/Vol] 17 mg/dL 8 - 23 mg/dL [facility] Microscopic Urinalysison - [facility] Bacteria LM Ql (Urine sed) RARE Abnormal None [facility] Epithelial cells LM.HPF (Urine sed) [#/Area] 0 TO 2 /HPF [facility] Interpretation and review of laboratory results Abnormal [facility] RBC LM.HPF (Urine sed) [#/Area] 0 TO 2 [facility] WBC LM.HPF (Urine sed) [#/Area] 2 TO 5 0 /HPF [facility] No Panel Informationon 08-15 [facility] T. Pallidum Abon 08-15-2024 T. pallidum Ab IA Ql (S) Non-Reactive NONREACTIVE [facility] Comment on above: T. pallidum antibodies are not detected. There is no serological evidence of infection with T. pallidum (early primary syphilis cannot be excluded). Retest in 2-4 weeks if syphilis is clinically suspect. T.pallidum Ab Screenon 08-15 T.pallidum Ab Screen Non-Reactive Normal NR [facility] Comment on above: Result Comment: T. pallidum antibodies are not detected. There is no serological evidence of infection with T. pallidum (early primary syphilis cannot be excluded). Retest in 2-4 weeks if syphilis is clinically suspect. Performed By: #### T SHXHCARITO, CP #### [facility] [address] [place], [place] [id number] Chemist Internship: Анна Biswas MD #### B12FOL, TREP #### [address] [phone] Chemist Internship: Arnav Barnes MD #### ISAI #### [facility] [address] [place], [place] [id number] Chemist Internship: Boogie Espinal MD TSH reflex to FT4on 08-16-19 TSH Qn 1.83 m[IU]/L [facility] TSH w/reflex to FT4on 2024 Thyroid Stim. Horm. 1.83 uIU/mL Normal 0.27-4.20 [facility] Comment on above: Performed By: #### T CHARITO JORDAN, CP #### [facility] [address] [place], [place] [phone] Chemist Internship: Анна Biswas MD #### B12FOZurdo, TREP #### [address] [phone] Chemist Internship: Arnav Barnes MD #### ISAI #### [facility] [address] [place] [address] Chemist Internship: Boogie Espinal MD UA w/Reflex Cultureon 2024 Bilirubin, SemiQt,Ur Negative Normal NEG [facility] Comment on above: Performed By: #### F EBC, LIPR, FT4 #### [address] [id number] Chemist Internship: Arnav Barnes MD #### HH #### [facility] [address] [place], [place] [phone] Chemist Internship: Анна Biswas MD Blood, Urine TRACE Abnormal NEG [facility] Comment on above: Performed By: #### F EBC, LIPR, FT4 #### [facility] [address] [place] [address] Chemist Internship: Arnav Barnes MD #### HH #### [facility] [address] [place] [address] Chemist Internship: Анна Biswas MD Clarity (U) Clear Normal CLEAR [facility] Comment on above: Performed By: #### F EBC, LIPR, FT4 #### [facility] [address] [place] [address] Chemist Internship: Arnav Barnes MD #### HH #### [facility] [address] [place] [address] Chemist Internship: Анна Biswas MD Color (U) Yellow Normal YEL [facility] Comment on above: Performed By: #### F EBC, LIPR, FT4 #### [facility] [address] [place] [address] Chemist Internship: Arnav Barnes MD #### HH #### [facility] [address] [place] [address] Chemist Internship: Анна Biswas MD Comment Normal [facility] Comment on above: Performed By: #### F EBC, LIPR, FT4 #### [facility] [address] [place] [address] Chemist Internship: Arnav Barnes MD #### HH #### [facility] [address] [place] [address] Chemist Internship: Анна Biswas MD Glucose Ql (U) Negative Normal NEG [facility] Comment on above: Performed By: #### F EBC, LIPR, FT4 #### [facility] [address] [place] [address] Chemist Internship: Arnav aBrnes MD #### HH #### [facility] [address] [place] [address] Chemist Internship: Анна Biswas MD Ketones Ql (U) TRACE Abnormal NEG [facility] Comment on above: Performed By: #### F EBC, LIPR, FT4 #### [facility] [address] [place] [address] Chemist Internship: Arnav Barnes MD #### HH #### [facility] [address] [place] [address] Chemist Internship: Анна Biswas MD Leukocyte esterase Test strip Ql (U) 1+ Abnormal NEG [facility] Comment on above: Performed By: #### F EBC, LIPR, FT4 #### [address] [address] Chemist Internship: Arnav Barnes MD #### HH #### [facility] [address] [place] [address] Chemist Internship: Анна Biswas MD Nitrite,Ur Negative Normal NEG [facility] Comment on above: Performed By: #### F EBC, LIPR, FT4 #### [address] [address] Chemist Internship: Arnav Barnes MD #### HH #### [facility] [address] [place] [address] Chemist Internship: Анна Biswas MD PH,Ur 5.0 Normal 5.0-8.0 [facility] Comment on above: Performed By: #### F EBC, LIPR, FT4 #### [address] [address] Chemist Internship: Arnav Barnes MD #### HH #### [facility] [address] [place] [address] Chemist Internship: Анна Biswas MD Protein Ql (U) TRACE Abnormal NEG [facility] Comment on above: Performed By: #### F MARGA FRANKS, FT4 #### [facility] [address] [place], [place] 1741008 Chemist Internship: Arnav Barnes MD #### HH #### [facility] [address] [place] [address] Chemist Internship: Анна Biswas MD Spec. [place],Ur 1.025 Normal 1.005-1.030 [facility] Comment on above: Performed By: #### F MARGA FRANKS, FT4 #### [address] [id number] Chemist Internship: Arnav Barnes MD #### HH #### [facility] [address] [place] [address] Chemist Internship: Анна Biswas MD Urobilinogen,Ur Normal Normal 0.0-1.0 [facility] Comment on above: Performed By: #### F MARGA FRANKS, FT4 #### [facility] [address] [place] [address] [phone] Chemist Internship: Arnav Barnes MD #### HH #### [facility] [address] [place] [address] Chemist Internship: Анна Biswas MD Urinalysis with Reflex to Cu ltureon 08-15-2024 Bilirubin Ql (U) Negative NEGATIVE [facility] Clarity (U) Clear Clear [facility] Color (U) Yellow Yellow [facility] Comment [facility] Glucose Test strip (U) [Mass/Vol] Negative NEGATIVE mg/dL [facility] Hemoglobin Auto test strip Ql (U) TRACE Abnormal NEGATIVE [facility] Interpretation and review of laboratory results Abnormal [facility] Ketones (U) [Mass/Vol] TRACE Abnormal NEGAT KALANI mg/dL [facility] Leukocyte esterase Test strip Ql (U) 1+ Abnormal NEGATIVE [facility] Nitrite Ql (U) Negative NEGATIVE [facility] pH (U) 5 [pH] 5.0 - 8.0 [facility] Protein (U) [Mass/Vol] TRACE Abnormal NEGAT KALANI mg/dL [facility] Specific gravity (U) [Rel density] 1.025 1.005 - 1.030 [facility] Urobilinogen Qn (U) Normal 0.0 - 1. 0 EU/dL [facility] Urinalysis,Microon 5 ----- Normal [facility] Comment on above: Performed By: #### F MARGA FRANKS, FT4 #### [address] [address] Chemist Internship: Arnav Barnes MD #### HH #### [facility] [address] [place] [address] Chemist Internship: Анна Biswas MD Bacteria RARE Abnormal NONE [facility] Comment on above: Performed By: #### F TRICIA FRANKSR, FT4 #### [address] [address] Chemist Internship: Arnav Barnes MD #### HH #### [facility] [address] [place] [address] Chemist Internship: Анна Biswas MD Epithelial cells LM Ql (Urine sed) 0 TO 2 Normal [facility] Comment on above: Performed By: #### F MARGA FRANKS, FT4 #### [address] [address] Chemist Internship: Arnav Barnes MD #### HH #### [facility] [address] [place], [place] [phone] Chemist Internship: Анна Biswas MD Urine RBC's 0 TO 2 Normal 0-2 [facility] Comment on above: Performed By: #### F EBC, LIPR, FT4 #### [facility] [address] [place], [place] [phone] Chemist Internship: Arnav Barnes MD #### HH #### [facility] [address] [place], [place] [phone] Chemist Internship: Анна Biswas MD Urine WBC's 2 TO 5 Normal 0 [facility] Comment on above: Performed By: #### F EBC, LIPR, FT4 #### [facility] [address] [place], [place] [phone] Chemist Internship: Arnav Barnes MD #### HH #### [facility] [address] [place], [place] [phone] Chemist Internship: Анна Biswas MD Vitamin B12 & Folateon 08-15 Cobalamin (Vitamin B12) [Mass/Vol] 717 pg/mL 232 - 1245 pg/mL [facility] Folate [Mass/Vol] 12.0 ng/mL 4.8 - 24.2 ng/mL [facility] Office Visiton 08-09-2024 Follow-up visit [id number] Faith Penn 1945 M Date Provider Department Center 08/09/2024 [facility] Family History Problem Relation Age of Onset Stroke Father Diabetes Father Family Status - Relation Status Age at Father Level of Service:14441 NE OFFICE/OUTPATIENT ESTABLISHED MOD MDM 30 MIN Normal [facility] Urology Office/Clinic Noteon 08-08-2024 Urology Office/Clinic Note [...] R carotid endarterectomy with Dr. Garcia at [facility] on 12/29/23 due to recent TIA. Pt's reports that she was told patient had a traumatic catheter insertion for his surgery so they left the catheter in place post-op. While inpatient, catheter would not drain so urology was consulted and they replaced it with a 24Fr Coude and started CBI. Cath was removed at [facility] on 01/01, pt. presented to the ER for gross hematuria and clots, CBI performed and urine cleared up upon discharge cath was removed. Pt's catheter was removed at [facility] on 01/06/24. 6. Gross hematuria (R31.0: Gross hematuria) See #5. Denies recurrence of gross hematuria. Follow-up With When Contact Information DHAVAL Ragsdale APRN, Humaira Ayon, ELIEZER, URL Additional Instructions: Follow up 1 yr or sooner if needed. Patient Education Benign Prostatic Hyperplasia Margarette Pruitt, personally scribed for DHAVAL Dickinson APRN on 08/05/2024 14:59:52. . Documentation recorded by the alfredo Hi accurately reflects the services(s) I performed [...] Oral, Da (more content not included)... Normal [facility] Comment on above: Result Comment: Elec tronically Signed By: DHAVAL Ragsdale APRN, Aurora X\.br\Date and Time Signed: 08/08/24 06:57 EST\.br\Electronically Co-Signed By: Margarette Hi\.br\Date and Time Co-Signed: 08/05/24 15:00 EST Ambulatory Visit Summaryon 0 08-05-2024 Ambulatory Visit Summary Ambulatory Visit Summary LOREDoriFAITH :1945 Visit Date:08/05/2024 Ambulatory Visit Instructions Your [...] AISHA-Grupo, Humaira X Where: [facility] [address], [address] [place] [address]- You Need to Schedule the Following Appointments Follow Up with Jn BUENROSTRO, AISHA-Grupo, Humaira X, FAM, URL When: Where: Medications [...] the day. (more content not included)... Normal [facility] Comp Metabolic Profon 2023 Albumin [Mass/Vol] 4.3 g/dL Normal 3.5-5.2 [facility] Comment on above: Performed By: #### F TRICIA FRANKSR, FT4 #### [facility] [address] [place] [address] Chemist Internship: Arnav Barnes MD #### HH #### [facility] [address] [place] [address] Chemist Internship: Анна Biswas MD Alkaline Phos 53 U/L Normal 40-129 [facility] Comment on above: Performed By: #### F EBGrupo, LIPR, FT4 #### [facility] [address] [place] [address] Chemist Internship: Arnav Barnes MD #### HH #### [facility] [address] [place], [place] [id number] Chemist Internship: Анна Biswas MD ALT [Catalytic activity/Vol] 19 U/L Normal 5-41 [facility] Comment on above: Performed By: #### F EBC, LIPR, FT4 #### [address] [place] [address] Chemist Internship: Arnav Barnes MD #### HH #### [facility] [address] [place] [address] Chemist Internship: Анна Biswas MD Anion gap [Moles/Vol] 14 mmol/L Normal 9-17 [facility] Comment on above: Performed By: #### F EBC, LIPR, FT4 #### [address] [address] Chemist Internship: Arnav Barnes MD #### HH #### [facility] [address] [place] [address] Chemist Internship: Анна Biswas MD AST [Catalytic activity/Vol] 17 U/L Normal <40 [facility] Comment on above: Performed By: #### F EBC, LIPR, FT4 #### [address] [address] Chemist Internship: Arnav Barnes MD #### HH #### [facility] [address] [place] [address] Chemist Internship: Анна Biswas MD Bilirubin [Mass/Vol] 0.4 mg/dL Normal 0.3-1.2 [facility] Comment on above: Performed By: #### F EBC, LIPR, FT4 #### [address] [address] Chemist Internship: Arnav Barnes MD #### HH #### [facility] [address] [place], [place] [id number] Chemist Internship: Анна Biswas MD BUN/CRE Ratio 21 High 9-20 [facility] Comment on above: Performed By: #### F EBGrupo LIPR, FT4 #### [facility] [address] [place], [place] [address] Chemist Internship: Arnav Barnes MD #### HH #### [facility] [address] [place], [place] [address] Chemist Internship: Анна Biswas MD Calcium [Mass/Vol] 9.6 mg/dL Normal 8.6-10.4 [facility] Comment on above: Performed By: #### F EBC LIPR, FT4 #### [address] [id number] Chemist Internship: Arnav Barnes MD #### HH #### [facility] [address] [place], [place] [address] Chemist Internship: Анна Biswas MD Chloride [Moles/Vol] 102 mmol/L Normal 98-107 [facility] Comment on above: Performed By: #### F EBGrupo LIPR, FT4 #### [address] [address] Chemist Internship: Arnav Barnes MD #### HH #### [facility] [address] [place], [place] [phone] Chemist Internship: Анна Biswas MD CO2 [Moles/Vol] 26 mmol/L Normal 20-31 [facility] Comment on above: Performed By: #### F EBGrupo LIPR, FT4 #### [address] [address] Chemist Internship: Arnav Barnes MD #### HH #### [facility] [address] [place], [place] [address] Chemist Internship: Анна Biswas MD Creatinine [Mass/Vol] 1.0 mg/dL Normal 0.7-1.2 [facility] Comment on above: Performed By: #### F MARGA FRANKS, FT4 #### [address] [place], [place] [address] Chemist Internship: Arnav Barnes MD #### HH #### [facility] [address] [place] [address] Chemist Internship: Анна Biswas MD GFR/1.73 sq M.predicted among non-blacks MDRD (S/P/Bld) [Vol rate/Area] 77 mL/min/{1.73_m2} Normal >[address] [facility] Comment on above: Result Comment: These [...] By: #### F MARGA FRANKS, FT4 #### [address] [place], [place] [address] Chemist Internship: Arnav Barnes MD #### HH #### [facility] [address] [place], [place] [address] Chemist Internship: Анна Biswas MD Glucose [Mass/Vol] 116 mg/dL High 70-99 [facility] Comment on above: Performed By: #### F MARGA FRANKS, FT4 #### [facility] [address] [place], [place] 4032[address] Chemist Internship: Arnav Barnes MD #### HH #### [facility] [address] [place], [place] [address] Chemist Internship: Анна Biswas MD Potassium [Moles/Vol] 4.0 mmol/L Normal 3.7-5.3 [facility] Comment on above: Performed By: #### F EBC, LIPR, FT4 #### [facility] [employer] [address] [place] [address] Chemist Internship: Arnav Barnes MD #### HH #### [facility] [address] [place] [address] Chemist Internship: Анна Biswas MD Protein [Mass/Vol] 7.4 g/dL Normal 6.4-8.3 [facility] Comment on above: Performed By: #### F EBC, LIPR, FT4 #### [facility] [address] [place] [address] Chemist Internship: Arnav Barnes MD #### HH #### [facility] [address] [place], [place] [address] Chemist Internship: Анна Biswas MD Sodium [Moles/Vol] 142 mmol/L Normal 135-144 [facility] Comment on above: Performed By: #### F EBC, LIPR, FT4 #### [facility] [address] [place] [address] Chemist Internship: Arnav Barnes MD #### HH #### [facility] [address] [place] [address] Chemist Internship: Анна Biswas MD Urea nitrogen [Mass/Vol] 21 mg/dL Normal 8-23 [facility] Comment on above: Performed By: #### F EBC, LIPR, FT4 #### [facility] [address] [place] [address] Chemist Internship: Arnav Barnes MD #### HH #### [facility] [address] [place] [address] Chemist Internship: Анна Biswas MD Comprehensive Metabolic Pane ruth 05-16-2024 Albumin [Mass/Vol] 4.3 g/dL 3.5 - 5.2 g/dL [facility] ALP [Catalytic activity/Vol] 53 U/L 40 - 129 U/L [facility] ALT [Catalytic activity/Vol] 19 U/L 5 - 41 U/L [facility] Anion gap [Moles/Vol] 14 mmol/L 9 - 17 mmol/L [facility] AST [Catalytic activity/Vol] 17 U/L NINF - 40 U/L [facility] Bilirubin [Mass/Vol] 0.4 mg/dL 0.3 - 1 .2 mg/dL [facility] Calcium [Mass/Vol] 9.6 mg/dL 8.6 - 10. 4 mg/dL [facility] Chloride [Moles/Vol] 102 mmol/L 98 - 10 7 mmol/L [facility] CO2 [Moles/Vol] 26 mmol/L 20 - 31 mmol/L [facility] Creatinine [Mass/Vol] 1.0 mg/dL 0.7 - 1.2 mg/dL [facility] Est, Glom Filt Rate 77 - PINF [facility] Comment on above: These results are [...] 116 mg/dL High 70 - 99 mg/dL [facility] Interpretation and review of laboratory results Abnormal [facility] Potassium [Moles/Vol] 4.0 mmol/L 3.7 - 5.3 mmol/L [facility] Protein [Mass/Vol] 7.4 g/dL 6.4 - 8.3 g/dL [facility] Sodium [Moles/Vol] 142 mmol/L 135 - 144 mmol/L [facility] Urea nitrogen [Mass/Vol] 21 mg/dL 8 - 23 mg/dL [facility] Urea nitrogen/Creatinine [Mass ratio] 21 mg/mg High 9 - 20 [facility] Lipid Panelon 05-16-2024 Cholesterol [Mass/Vol] 155 mg/dL 0 - 199 mg/dL [facility] Comment on above: Cholesterol Guidelines: <200 Desirable 200-240 Borderline >240 Undesirable Cholesterol in HDL [Mass/Vol] 54 mg/dL 40 - PINF mg/dL [facility] Comment on above: HDL Guidelines: <40 Undesirable 40-59 Borderline >59 Desirable Cholesterol in LDL [Mass/Vol] 90 mg/dL 0 - 100 mg/dL [facility] Comment on above: LDL Guidelines: <100 Desirable 100-129 Near to/above Desirable 130-159 Borderline >159 Undesirable Direct (measured) LDL and calculated LDL are not interchangeable tests. Cholesterol in VLDL [Mass/Vol] 11 mg/dL 1 - 30 mg/dL [facility] Cholesterol.total/Chol esterol in HDL [Mass ratio] 2.9 {ratio} [facility] Triglyceride [Mass/Vol] 56 mg/dL NINF - 150 mg/dL [facility] Comment on above: Triglyceride Guidelines: <150 Desirable 150-199 Borderline 200-499 High >499 Very high Based on AHA Guidelines for fasting triglyceride, March 2012. [facility] Lipid Profileon 05-16-2024 Cholesterol [Mass/Vol] 155 mg/dL Normal 0-199 [facility] Comment on above: Result Comment: Cholesterol Guidelines: <200 Desirable 200-240 Borderline >240 Undesirable Performed By: #### F EBC, LIPR, FT4 #### [facility] [employer] [facility] [place], [place] [address] Chemist Internship: Arnav Barnes MD #### HH #### [facility] [address] [place] [address] Chemist Internship: Анна Biswas MD Cholesterol in HDL [Mass/Vol] 54 mg/dL Normal >40 [facility] Comment on above: Result Comment: HDL Guidelines: <40 Undesirable 40-59 Borderline >59 Desirable Performed By: #### F EBC, LIPR, FT4 #### [facility] [employer] [facility] [place], [place] [address] Chemist Internship: Arnav Barnes MD #### HH #### [facility] [address] [place], [place] [address] Chemist Internship: Анна Biswas MD Cholesterol in LDL [Mass/Vol] 90 mg/dL Normal 0-100 [facility] Comment on above: Result Comment: LDL Guidelines: <100 Desirable 100-129 Near to/above Desirable 130-159 Borderline >159 Undesirable Direct (measured) LDL and calculated LDL are not interchangeable tests. Performed By: #### F EBC, LIPR, FT4 #### [facility] [employer] [facility] [place] [address] Chemist Internship: Arnav Barnes MD #### HH #### [facility] [address] [place], [place] [address] Chemist Internship: Анна Biswas MD Cholesterol in VLDL [Mass/Vol] 11 mg/dL Normal 1-30 [facility] Comment on above: Performed By: #### F EBC, LIPR, FT4 #### [address] [place] [address] Chemist Internship: Arnav Barnes MD #### HH #### [facility] [address] [place], [place] [address] Chemist Internship: Анна Biswas MD Cholesterol.total/Chol esterol in HDL [Mass ratio] 2.9 {ratio} Normal [facility] Comment on above: Performed By: #### F EBC, LIPR, FT4 #### [address] [place] [address] Chemist Internship: Arnav Barnes MD #### HH #### [facility] [address] [place], [place] [address] Chemist Internship: Анна Biswas MD Triglyceride [Mass/Vol] 56 mg/dL Normal <150 [facility] Comment on above: Result Comment: Triglyceride Guidelines: <150 Desirable 150-199 Borderline 200-499 High >499 Very high Based on AHA Guidelines for fasting triglyceride, March 2012. Performed By: #### F EBC, LIPR, FT4 #### [email or web address] [address] [place], [place] [address] Chemist Internship: Arnav Barnes MD #### HH #### [facility] [address] [place] [address] Chemist Internship: Анна Biswas MD PSA Screeningon 05-16-2024 Prostate specific Ag [Mass/Vol] 3.40 ng/mL 0.00 - 4.00 ng/mL [facility] Comment on above: The Nataliya ECLIA as say is used. Results obtained with different assay methods cannot be used interchangeably. [facility] PSA, Screeningon 05-16-2024 Prostatic Spec. Ag 3.40 ng/mL Normal 0.00-4.00 [facility] Comment on above: Result Comment: The Nataliya ECLIA assay is used. Results obtained with different assay methods cannot be used interchangeably. Performed By: #### F EBC, LIPR, FT4 #### [facility] [address] [place], [place] [address] Chemist Internship: Arnav Barnes MD #### HH #### [facility] [address] [place] [address] Chemist Internship: Анна Biswas MD Urology Office/Clinic Noteon 01-27-2024 [...] R carotid endarterectomy with Dr. Garcia at [facility] on 12/29/23 due to recent TIA. Pt's reports that she was told patient had a traumatic catheter insertion for his surgery so they left the catheter in place post-op. While inpatient, catheter would not drain so urology was consulted and they replaced it with a 24Fr Coude and started CBI. Cath was removed at [facility] on 01/01, pt. presented to the [...] with voice recognition artificial intelligence software, specifically Snapt, 25eight and or Liztic. Substitutions may have occurred due to the [...] R carotid endarterectomy with Dr. Garcia at [facility] on 12/29/23 due to recent TIA. Pt's reports that she was told patient had a traumatic catheter insertion for his surgery so they left the catheter in place post-op. While inpatient, catheter would not drain so urology was consulted and they replaced it with a 24Fr Coude and started CBI. Cath was removed at [facility] on 01/01, pt. presented to the ER for gross hematuria and clots, CBI performed and urine cleared up upon discharge cath was removed. Pt's catheter was removed at [facility] on 01/06/24. 6. Gross hematuria (R31.0: Gross hematuria) See #5. Denies recurrence of gross hematuria. Overall the patient is here with his today. He had a rough postoperative course after his right carotid endarterectomy. Apparently he had a (more content not included)... Normal [facility] Comment on above: Result Comment: Elec tronically [...] Chintan GRACIA MD Where: [facility] [address], [address] [place] [address]- You Need to Schedule the Following Appointments [...] activity un (more content not included)... Normal [facility] Urology Office/Clinic Noteon 01-11-2024 Urology Office/Clinic Note [...] specified devices) Pt's catheter was removed at [facility] on 01/06/24 s/p endarterectomy when valero [...] mg Tab (more content not included)... Normal [facility] Comment on above: Result Comment: Elec tronically Signed By: DHAVAL Ragsdale APRN, Humaira Ayon\.br\Date and Time Signed: 01/11/24 12:50 EDT\.br\Electronically Co-Signed By: Tree Foley\.br\Date and Time Co-Signed: 01/11/24 11:43 EDT Ambulatory Visit Summaryon 0 7-25-2024 Ambulatory Visit Summary Ambulatory Visit Summary FAITH [...] AM EDT With: Where: [facility] [address], [address] [place] [address]- Thursday 10:30 AM EDT With: Chintan GRACIA MD Where: [facility] [address] [employer], [address] [place] [address]- You Need to Schedule the Following Appointments Follow Up with Chintan GRACIA MD, URL When: Comments: Appointment has already been scheduled Where: [address] [address] Medications What How Much When Instructions Unchanged [...] 5 (more content not included)... Normal [facility] Urology Office/Clinic Noteon 12-31-2023 Urology Office/Clinic Note [...] R carotid endarterectomy with Dr. Garcia at [facility] on 12/29/23 due to recent [...] unable to urinate again to go to [facility] [place] ER as patient will likely need irrigation/CBI again. Pt is on Plavix which was started 6 weeks prior to surgery. I advised pt to hold Plavix for today and for pt's to call Dr. Garcia's office and advise them of the situation and get their recommendations regarding restarting Plavix. Pt was also given Levsin Q4H for bladder spasms per [facility] [place] urology. Pt has taken 3 doses of [...] E&M of Est. 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 Patient Low 20-29 Min 94396 Insertion of temp indwelling bladder cath (valero) simple 41672 Follow-up With When Contact Information KATHY HILL, Chintan P, URL [address] [address]- Additional Instruction (more content not included)... Normal [facility] Comment on above: Result Comment: Elec tronically Signed By: Chloe PUENTES, Makayla Stokes\.br\Date and Time Signed: 12/31/23 11:10 EDT BASIC METABOLIC PANLon 12-29 Anion gap [Moles/Vol] 8 mmol/L Normal 5-15 [facility] Comment on above: Performed By: #### C BCA, PINR, 87901-0, BMP #### [facility] ([id number]) [address], [address] [place] [address] Calcium [Mass/Vol] 8.3 mg/dL Low 8.5-10.5 [facility] Comment on above: Performed By: #### C BCA, PINR, 47400-1, BMP #### [facility] ([id number]) [address], [address] [place] [address] Chloride [Moles/Vol] 110 mmol/L High 98-109 [facility] Comment on above: Performed By: #### C SHIN PINR, 39124-9, BMP #### [facility] ([id number]) [address], [address] [place] [address] CO2 [Moles/Vol] 22 mmol/L Normal 22-32 [facility] Comment on above: Performed By: #### C SHIN, PINR, 73255-4, BMP #### [facility] ([id number]) [address], [facility] [address] [place] [address] Creatinine [Mass/Vol] 0.76 mg/dL Normal 0.60-1.30 [facility] Comment on above: Result Comment: METH OD TRACEABLE TO IDMS STANDARD Performed By: #### C SHIN PINR, 17184-5, BMP #### [facility] ([id number]) [address], [facility] [address] [place] [address] eGFR (CKD-EPI) NON-RACE DEPENDENT >90 Normal >59 [facility] Comment on above: Result Comment: Reported eGFR is based on the CKD-EPI 2020 equation that does not use a race coefficient. Performed By: #### C SHIN, PINR, 24929-3, BMP #### [facility] ([id number]) [address], [address] [place] [address] Glucose [Mass/Vol] 109 mg/dL High 65-99 [facility] Comment on above: Performed By: #### C BCA, PINR, 92489-3, BMP #### [facility] ([id number]) [address] [address] [address] [place] [address] Potassium [Moles/Vol] 4.1 mmol/L Normal 3.5-5.0 [facility] Comment on above: Performed By: #### C BCA, PINR, 02329-8, BMP #### [facility] ([id number]) [address] [place] [address] Sodium [Moles/Vol] 140 mmol/L Normal 134-146 [facility] Comment on above: Performed By: #### C SHIN, PINR, 93018-6, BMP #### [facility] ([id number]) [address], [facility] [address] [place] [address] Urea nitrogen [Mass/Vol] 15 mg/dL Normal 5-27 [facility] Comment on above: Performed By: #### C SHIN, PINR, 95565-8, BMP #### [facility] ([id number]) [address], [facility] [address] [place] [address] COMPLETE BLOOD COUNTon 12-29 Erythrocyte distribution width (RBC) [Ratio] 13.6 % Normal 11.5-15.0 [facility] Comment on above: Performed By: #### C SHIN, PINR, 42043-8, BMP #### [facility] ([id number]) [address], [facility] [address] [place] [address] Hematocrit (Bld) [Volume fraction] 32.3 % Low 39-49 [facility] Comment on above: Performed By: #### C BCA, PINR, 71349-6, BMP #### [facility] ([id number]) [address], [facility] [address] [place] [address] Hemoglobin (Bld) [Mass/Vol] 11.0 g/dL Low 13.0-17.0 [facility] Comment on above: Performed By: #### C BCA, PINR, 57470-8, BMP #### [facility] ([id number]) [address] [address] [place] [address] MCH (RBC) [Entitic mass] 32.7 pg Normal 27-34 [facility] Comment on above: Performed By: #### C BCA, PINR, 04552-8, BMP #### [facility] ([id number]) [address] [place] [address] MCHC (RBC) [Mass/Vol] 34.1 g/dL Normal 32-36 [facility] Comment on above: Performed By: #### C BCA, PINR, 28739-2, BMP #### [facility] ([id number]) [address], [address] [place] [address] MCV (RBC) [Entitic vol] 96 fL Normal 80-100 [facility] Comment on above: Performed By: #### C SHIN, PINR, 03519-0, BMP #### [facility] ([id number]) [address], [address] [place] [address] Platelet mean volume (Bld) [Entitic vol] 7.9 fL Normal 7-12 [facility] Comment on above: Performed By: #### C SHIN, PINR, 82482-3, BMP #### [facility] ([id number]) [address] [place] [address] Platelets (Bld) [#/Vol] 192 10*3/uL Normal 150-450 [facility] Comment on above: Performed By: #### C BCA, PINR, 12002-4, BMP #### [facility] ([id number]) [address], [address] [place] [address] RBC COUNT 3.37 X10E12/L Low 4.10-5.70 [facility] Comment on above: Performed By: #### C BCA, PINR, 98579-6, BMP #### [facility] ([id number]) [address], [address] [place] [address] WBC (Bld) [#/Vol] 8.6 10*3/uL Normal 4.0-11.0 [facility] Comment on above: Performed By: #### Grupo BCA, PINR, 52837-1, BMP #### [facility] ([id number]) [address], [address] [place] [address] TSH WITH REFLEXon 12-30-2023 TSH 1.69 uIU/mL Normal 0.49-4.67 [facility] Comment on above: Performed By: #### C BCA, PINR, 94876-2, BMP #### [facility] ([id number]) [address] [place] [address] BASIC METABOLIC PANLon 12-28 Anion gap [Moles/Vol] 9 mmol/L Normal 5-15 [facility] Comment on above: Performed By: #### Kelly ROQUE, 10571-5 #### [facility] ([id number]) [address] [place] [address] Calcium [Mass/Vol] 8.2 mg/dL Low 8.5-10.5 [facility] Comment on above: Performed By: #### Kelly ROQUE, #### [facility] ([id number]) [address] [place] [address] Chloride [Moles/Vol] 109 mmol/L Normal 98-109 [facility] Comment on above: Performed By: #### Kelly ROQUE, #### [facility] ([id number]) [address], [address] [place] [address] CO2 [Moles/Vol] 22 mmol/L Normal 22-32 [facility] Comment on above: Performed By: #### Kelly ROQUE, #### [facility] ([id number]) [address], [address] [place] [address] Creatinine [Mass/Vol] 0.82 mg/dL Normal 0.60-1.30 [facility] Comment on above: Result Comment: METH OD TRACEABLE TO IDMS STANDARD Performed By: #### Kelly ROQUE, #### [facility] ([id number]) [address], [address] [place] [address] GFR/1.73 sq M.predicted among non-blacks MDRD (S/P/Bld) [Vol rate/Area] 90 mL/min/{1.73_m2} Normal >59 [facility] Comment on above: Result Comment: Reported eGFR is based on the CKD-EPI 2020 equation that does not use a race coefficient. Performed By: #### Kelly ROQUE, #### [facility] ([id number]) [address], [address] [place] [address] Glucose [Mass/Vol] 131 mg/dL High 65-99 [facility] Comment on above: Performed By: #### Kelly ROQUE, #### [facility] ([id number]) [address] [place] [address] Potassium [Moles/Vol] 3.8 mmol/L Normal 3.5-5.0 [facility] Comment on above: Performed By: #### Kelly ROQUE, #### [facility] ([id number]) [address] [place] [address] Sodium [Moles/Vol] 140 mmol/L Normal 134-146 [facility] Comment on above: Performed By: #### Kelly ROQUE, #### [facility] ([id number]) [address] [place] [address] Urea nitrogen [Mass/Vol] 18 mg/dL Normal 5-27 [facility] Comment on above: Performed By: #### Kelly ROQUE, #### [facility] ([id number]) [address] [place] [address] Anion gap [Moles/Vol] 8 mmol/L Normal 5-15 [facility] Comment on above: Performed By: #### C BCA, PINR, 08253-6, BMP #### [facility] ([id number]) [address], [address] [place] [address] Calcium [Mass/Vol] 9.2 mg/dL Normal 8.5-10.5 [facility] Comment on above: Performed By: #### C BCA, PINR, 08051-2, BMP #### [facility] ([id number]) [address], [address] [place] [address] Chloride [Moles/Vol] 108 mmol/L Normal 98-109 [facility] Comment on above: Performed By: #### C BCA, PINR, 04234-2, BMP #### [facility] ([id number]) [address], [address] [place] [address] CO2 [Moles/Vol] 25 mmol/L Normal 22-32 [facility] Comment on above: Performed By: #### C BCA, PINR, 88739-3, BMP #### [facility] ([id number]) [address], [address] [place] [address] Creatinine [Mass/Vol] 0.93 mg/dL Normal 0.60-1.30 [facility] Comment on above: Result Comment: METH OD TRACEABLE TO IDMS STANDARD Performed By: #### C BCA, PINR, 16120-4, BMP #### [facility] ([id number]) [address], [address] [place] [address] GFR/1.73 sq M.predicted among non-blacks MDRD (S/P/Bld) [Vol rate/Area] 84 mL/min/{1.73_m2} Normal >59 [facility] Comment on above: Result Comment: Reported eGFR is based on the CKD-EPI 2020 equation that does not use a race coefficient. Performed By: #### C BCA, PINR, 21999-6, BMP #### [facility] ([id number]) [address], [address] [place] [address] Glucose [Mass/Vol] 107 mg/dL High 65-99 [facility] Comment on above: Performed By: #### C SHIN, PINR, 41713-2, BMP #### [facility] ([id number]) [address], [address] [place] [address] Potassium [Moles/Vol] 3.9 mmol/L Normal 3.5-5.0 [facility] Comment on above: Performed By: #### C SHIN, PINR, 09272-5, BMP #### [facility] ([id number]) [address], [address] [place] [address] Sodium [Moles/Vol] 141 mmol/L Normal 134-146 [facility] Comment on above: Performed By: #### C SHIN, PINR, 36283-2, BMP #### [facility] ([id number]) [address], [address] [place] [address] Urea nitrogen [Mass/Vol] 19 mg/dL Normal 5-27 [facility] Comment on above: Performed By: #### C SHIN, PINR, 01593-2, BMP #### [facility] ([id number]) [address], [address] [place] [address] CBC AND AUTO DIFFon 07-23-20 24 ABSOLUTE BASOPHIL 0.0 X10E9/L Normal 0.0-0.2 [facility] Comment on above: Performed By: #### C BCA #### [facility] ([id number]) [address], [address] [place] [address] ABSOLUTE NEUTROPHIL 6.6 X10E9/L Normal 1.5-6.6 [facility] Comment on above: Performed By: #### C BCA #### [facility] ([id number]) [address], [address] [place] [address] Basophils/100 WBC (Bld) 0.3 % Normal [facility] Comment on above: Performed By: #### C BCA #### [facility] ([id number]) [address], [address] [place] [address] Eosinophils (Bld) [#/Vol] 0.0 10*3/uL Normal 0.0-0.4 [facility] Comment on above: Performed By: #### C BCA #### [facility] ([id number]) [address], [address] [place] [address] Eosinophils/100 WBC (Bld) 0.4 % Normal [facility] Comment on above: Performed By: #### C BCA #### [facility] ([id number]) [address] [place] [address] Erythrocyte distribution width (RBC) [Ratio] 13.3 % Normal 11.5-15.0 [facility] Comment on above: Performed By: #### C BCA #### [facility] ([id number]) [address] [place] [address] Hematocrit (Bld) [Volume fraction] 32.8 % Low 39-49 [facility] Comment on above: Performed By: #### C BCA #### [facility] ([id number]) [address] [place] [address] Hemoglobin (Bld) [Mass/Vol] 11.1 g/dL Low 13.0-17.0 [facility] Comment on above: Performed By: #### C BCA #### [facility] ([id number]) [address], [address] [place] [address] Lymphocytes (Bld) [#/Vol] 0.8 10*3/uL Low 1.0-3.5 [facility] Comment on above: Performed By: #### C BCA #### [facility] ([id number]) [address], [address] [place] [address] Lymphocytes/100 WBC (Bld) 10.4 % Normal [facility] Comment on above: Performed By: #### C BCA #### [facility] ([id number]) [address] [place] [address] MCH (RBC) [Entitic mass] 32.3 pg Normal 27-34 [facility] Comment on above: Performed By: #### C BCA #### [facility] ([id number]) [address] [place] [address] MCHC (RBC) [Mass/Vol] 33.8 g/dL Normal 32-36 [facility] Comment on above: Performed By: #### C BCA #### [facility] ([id number]) [address], [address] [place] [address] MCV (RBC) [Entitic vol] 95 fL Normal 80-100 [facility] Comment on above: Performed By: #### C BCA #### [facility] ([id number]) [address], [address] [place] [address] Monocytes (Bld) [#/Vol] 0.3 10*3/uL Normal 0-0.9 [facility] Comment on above: Performed By: #### C BCA #### [facility] ([id number]) [address] [place] [address] Monocytes/100 WBC (Bld) 3.8 % Normal [facility] Comment on above: Performed By: #### C BCA #### [facility] ([id number]) [address] [place] [address] Neutrophils/100 WBC (Bld) 85.1 % Normal [facility] Comment on above: Performed By: #### C BCA #### [facility] ([id number]) [address], [address] [place] [address] Platelet mean volume (Bld) [Entitic vol] 7.6 fL Normal 7-12 [facility] Comment on above: Performed By: #### C BCA #### [facility] ([id number]) [address] [place] [address] Platelets (Bld) [#/Vol] 170 10*3/uL Normal 150-450 [facility] Comment on above: Performed By: #### C BCA #### [facility] ([id number]) [address] [place] [address] RBC COUNT 3.44 X10E12/L Low 4.10-5.70 [facility] Comment on above: Performed By: #### C BCA #### [facility] ([id number]) [address], [address] [place] [address] WBC (Bld) [#/Vol] 7.7 10*3/uL Normal 4.0-11.0 [facility] Comment on above: Performed By: #### C BCA #### [facility] ([id number]) [address] [place] [address] ABSOLUTE BASOPHIL 0.0 X10E9/L Normal 0.0-0.2 [facility] Comment on above: Performed By: #### C BRANDON MELISSA, 96879-2, BMP #### [facility] ([id number]) [address] [place] [address] ABSOLUTE NEUTROPHIL 2.6 X10E9/L Normal 1.5-6.6 [facility] Comment on above: Performed By: #### C SHIN PINAndrew, 95128-7, BMP #### [facility] ([id number]) [address] [place] [address] Basophils/100 WBC (Bld) 0.6 % Normal [facility] Comment on above: Performed By: #### C SHIN PINR, 23110-9, BMP #### [facility] ([id number]) [address] [address] [place] [address] Eosinophils (Bld) [#/Vol] 0.0 10*3/uL Normal 0.0-0.4 [facility] Comment on above: Performed By: #### C SHIN, PINR, 88081-8, BMP #### [facility] ([id number]) [address], [facility] [address] [place] [address] Eosinophils/100 WBC (Bld) 1.0 % Normal [facility] Comment on above: Performed By: #### C SHIN, PINR, 00023-5, BMP #### [facility] ([id number]) [address] [address] Erythrocyte distribution width (RBC) [Ratio] 13.4 % Normal 11.5-15.0 [facility] Comment on above: Performed By: #### Grupo MELISSA, PINR, 46271-1, BMP #### [facility] ([id number]) [address] [address] Hematocrit (Bld) [Volume fraction] 41.5 % Normal 39-49 [facility] Comment on above: Performed By: #### [employer] MELISSA, PINR, 41187-5, BMP #### [facility] ([id number]) [address] [address] [place] [address] Hemoglobin (Bld) [Mass/Vol] 13.9 g/dL Normal 13.0-17.0 [facility] Comment on above: Performed By: #### C SHIN, PINR, 16310-3, BMP #### [facility] ([id number]) [address] [address] Lymphocytes (Bld) [#/Vol] 1.2 10*3/uL Normal 1.0-3.5 [facility] Comment on above: Performed By: #### C SHNI, PINR, 42286-2, BMP #### [facility] ([id number]) [address] [place] [address] Lymphocytes/100 WBC (Bld) 28.0 % Normal [facility] Comment on above: Performed By: #### C SHIN, PINR, 24995-4, BMP #### [facility] ([id number]) [address], [address] [place] [address] MCH (RBC) [Entitic mass] 32.3 pg Normal 27-34 [facility] Comment on above: Performed By: #### C SHIN, PINR, 64119-3, BMP #### [facility] ([id number]) [address], [address] [place] [address] MCHC (RBC) [Mass/Vol] 33.6 g/dL Normal 32-36 [facility] Comment on above: Performed By: #### C SHIN, PINR, 96974-6, BMP #### [facility] ([id number]) [address], [address] [place] [address] MCV (RBC) [Entitic vol] 96 fL Normal 80-100 [facility] Comment on above: Performed By: #### C SHIN, PINR, 55916-1, BMP #### [facility] ([id number]) [address], [address] [place] [address] Monocytes (Bld) [#/Vol] 0.4 10*3/uL Normal 0-0.9 [facility] Comment on above: Performed By: #### C SHIN, PINR, 19891-8, BMP #### [facility] ([id number]) [address], [address] [place] [address] Monocytes/100 WBC (Bld) 10.3 % Normal [facility] Comment on above: Performed By: #### C SHIN, PINR, 34971-1, BMP #### [facility] ([id number]) [address], [address] [place] [address] Neutrophils/100 WBC (Bld) 60.1 % Normal [facility] Comment on above: Performed By: #### C SHIN, PINR, 83488-4, BMP #### [facility] ([id number]) [address] [place] [address] Platelet mean volume (Bld) [Entitic vol] 7.5 fL Normal 7-12 [facility] Comment on above: Performed By: #### C SHIN, PINR, 16867-6, BMP #### [facility] ([id number]) [address] [place] [address] Platelets (Bld) [#/Vol] 197 10*3/uL Normal 150-450 [facility] Comment on above: Performed By: #### C SHIN, PINR, 39266-3, BMP #### [facility] ([id number]) [address] [place] [address] RBC COUNT 4.31 X10E12/L Normal 4.10-5.70 [facility] Comment on above: Performed By: #### C BCA, PINR, 40960-5, BMP #### [facility] ([id number]) [address], [address] [place] [address] WBC (Bld) [#/Vol] 4.3 10*3/uL Normal 4.0-11.0 [facility] Comment on above: Performed By: #### C SHIN, PINR, 25070-2, BMP #### [facility] ([id number]) [address] [place] [address] Calcium.ionized (Bld) [Mass/ Vol]on 12-29-2023 IONIZED CALCIUM 4.5 mg/dL Normal 4.5-5.3 [facility] Comment on above: Performed By: #### 3 8230-9 #### [facility] ([id number]) [address], [address] [place] [address] HGB AND HCTon 12-29-2023 Hematocrit (Bld) [Volume fraction] 31.6 % Low 39-49 [facility] Comment on above: Performed By: #### C BCA, PINR, 77663-7, BMP #### [facility] ([id number]) [address] [place] [address] Hemoglobin (Bld) [Mass/Vol] 11.2 g/dL Low 13.0-17.0 [facility] Comment on above: Performed By: #### C SHIN, PINR, 44950-2, BMP #### [facility] ([id number]) [address] [place] [address] MAGNESIUMon 12-29-2023 Magnesium [Mass/Vol] 2.1 mg/dL Normal 1.8-2.6 [facility] Comment on above: Performed By: #### [place], [address]-5 #### [facility] ([id number]) [address] [place] [address] Magnesium Ionized ISE (Bld) [Moles/Vol]on 12-29-2023 Magnesium [Moles/Vol] 0.63 mmol/L Normal 0.45-0.74 [facility] Comment on above: Result Comment: NEW REFERENCE RANGE Performed By: #### 7 3572-0 #### [facility] ([id number]) [address] [address] [place] [address] PROTIME AND INRon 12-29-2023 INR Coag (PPP) [Relative time] 1.0 {INR} Normal 0.8-1.1 [facility] Comment on above: Performed By: #### C BCA, PINR, 92722-9, BMP #### [facility] ([id number]) [address] [place] [address] PT Coag (PPP) [Time] 12.0 s Normal 9.8-13.2 [facility] Comment on above: Performed By: #### C JAMES MELISSAR, 32538-8, BMP #### [facility] ([id number]) [address] [place] [address] RAPID CARDIACon 12-29-2023 SHAUNNA'S TEST Normal [facility] Comment on above: Performed By: #### A FAB5 #### [facility] ([id number]) [address] [place] [address] BASE,DEFICIT 2.0 MMOL/L Normal 0.0-2.0 [facility] Comment on above: Performed By: #### A FAB5 #### [facility] ([id number]) [address] [place] [address] Body temperature 98.6 [degF] Normal 37.0 [facility] Comment on above: Performed By: #### A FAB5 #### [facility] ([id number]) [address] [place] [address] Glucose [Mass/Vol] 111 mg/dL High 65-99 [facility] Comment on above: Performed By: #### A FAB5 #### [facility] ([id number]) [address] [place] [address] HCO3 (Bld) [Moles/Vol] 22.4 mmol/L Normal 22-26 P [facility] Comment on above: Performed By: #### A FAB5 #### [facility] ([id number]) [address] [place] [address] Hematocrit (Bld) [Volume fraction] 37 % Low 39-49 [facility] Comment on above: Performed By: #### A FAB5 #### [facility] ([id number]) [address] [place] [address] Hemoglobin (Bld) [Mass/Vol] 12.1 g/dL Low 13.0-17.0 [facility] Comment on above: Performed By: #### A FAB5 #### [facility] ([id number]) [address] [facility] [place] [place] [address] INSP. O2 CONC. 100 % Normal [facility] Comment on above: Performed By: #### A FAB5 #### [facility] ([id number]) [address] [place] [address] IONIZED CALCIUM 4.6 mg/dL Normal 4.5-5.3 [facility] Comment on above: Performed By: #### A FAB5 #### [facility] ([id number]) [address] [place] [address] Oxygen (Bld) [Partial pressure] 254 mm[Hg] High 80-100 [facility] Comment on above: Performed By: #### A FAB5 #### [facility] ([id number]) [address] [place] [address] Oxygen saturation in Blood 100.4 % Normal >90 [facility] Comment on above: Performed By: #### A FAB5 #### [facility] ([id number]) [address] [facility] [place] [address] PCO2 33.9 MMHG Low 35-45 [facility] Comment on above: Performed By: #### A FAB5 #### [facility] ([id number]) [address] [place] [address] pH (Bld) 7.428 [pH] Normal 7.350-7.450 [facility] Comment on above: Performed By: #### A FAB5 #### [facility] ([id number]) [address] [place] [address] Potassium [Moles/Vol] 3.8 mmol/L Normal 3.5-5.0 [facility] Comment on above: Performed By: #### A FAB5 #### [facility] ([id number]) [address] [place] [address] SAMPLE SITE TANGELA [facility] Comment on above: Performed By: #### A FAB5 #### [facility] ([id number]) [address] [place] [address] SAMPLE TYPE Arterial Normal [facility] Comment on above: Performed By: #### A FAB5 #### [facility] ([id number]) [address] [place] [address] aPTT Coag (PPP) [Time]on aPTT Coag (Bld) [Time] 37 s Normal 26-37 [facility] Comment on above: Performed By: #### C SHIN, PINR, 24161-8, BMP #### [facility] ([id number]) [address] [facility] [place] [address] Hgb/Hcton 12-01-2023 Hematocrit (Bld) [Volume fraction] 41.3 % Normal 41.0-53.0 [facility] Comment on above: Performed By: #### F TINY LIPR, FT4 #### [address] [place], [place] [id number] Chemist Internship: Arnav Barnes MD #### HH #### [facility] [address] [place], [place] [address] Chemist Internship: Анна Biswas MD Hemoglobin (Bld) [Mass/Vol] 13.9 g/dL Normal 13.5-17.5 [facility] Comment on above: Performed By: #### F TRICIA FRANKSR, FT4 #### [facility] [address] [place] [address] Chemist Internship: Arnav Barnes MD #### HH #### [facility] [address] [place] [address] Chemist Internship: Анна Biswas MD Iron Binding Cap.on 12-01-19 24 % Fe Saturation 27 % Normal 20-55 [facility] Comment on above: Performed By: #### F EBC, LIPR, FT4 #### [address] [address] Chemist Internship: Arnav Barnes MD #### HH #### [facility] [address] [place] [address] Chemist Internship: Анна Biswas MD Iron [Mass/Vol] 79 ug/dL Normal 61-157 [facility] Comment on above: Performed By: #### F EBC, LIPR, FT4 #### [address] [address] Chemist Internship: Arnav Barnes MD #### HH #### [facility] [address] [place] [address] Chemist Internship: Анна Biswas MD Total Fe Binding Cap 292 ug/dL Normal 250-450 [facility] Comment on above: Performed By: #### F EBC, LIPR, FT4 #### [address] [address] Chemist Internship: Arnav Barnes MD #### HH #### [facility] [address] [place] [address] Chemist Internship: Анна Biswas MD Unbound Fe Bind Cap 213 ug/dL Normal 112-347 [facility] Comment on above: Performed By: #### F EBC, LIPR, FT4 #### [address] [address] Chemist Internship: Arnav Barnes MD #### HH #### [facility] [address] [place] [address] Chemist Internship: Анна Biswas MD Lipid Profileon 12-01-2023 Cholesterol [Mass/Vol] 151 mg/dL Normal 0-199 [facility] Comment on above: Result Comment: Cholesterol Guidelines: <200 Desirable 200-240 Borderline >240 Undesirable Performed By: #### F EBC, LIPR, FT4 #### [address] [place] [address] Chemist Internship: Arnav Barnes MD #### HH #### [facility] [address] [place] [address] Chemist Internship: Анна Biswas MD Cholesterol in HDL [Mass/Vol] 54 mg/dL Normal >40 [facility] Comment on above: Result Comment: HDL Guidelines: <40 Undesirable 40-59 Borderline >59 Desirable Performed By: #### F EBC, LIPR, FT4 #### [address] [address] Chemist Internship: Arnav Barnes MD #### HH #### [facility] [address] [place] [address] Chemist Internship: Анна Biswas MD Cholesterol in LDL [Mass/Vol] 89 mg/dL Normal 0-100 [facility] Comment on above: Result Comment: LDL Guidelines: <100 Desirable 100-129 Near to/above Desirable 130-159 Borderline >159 Undesirable Direct (measured) LDL and calculated LDL are not interchangeable tests. Performed By: #### F EBC, LIPR, FT4 #### [address] [address] Chemist Internship: Arnav Barnes MD #### HH #### [facility] [address] [place] [address] Chemist Internship: Анна Biswas MD Cholesterol in VLDL [Mass/Vol] 8 mg/dL Normal [facility] Comment on above: Performed By: #### F EBC, LIPR, FT4 #### [address] [address] Chemist Internship: Arnav Barnes MD #### HH #### [facility] [address] [place], [place] [id number] Chemist Internship: Анна Biswas MD Cholesterol.total/Chol esterol in HDL [Mass ratio] 3.0 {ratio} Normal [facility] Comment on above: Performed By: #### F EBC, LIPR, FT4 #### [facility] [address] [place], [place] [id number] Chemist Internship: Arnav Barnes MD #### HH #### [facility] [address] [place], [place] [id number] Chemist Internship: Анна Biswas MD Triglyceride [Mass/Vol] 41 mg/dL Normal <150 [facility] Comment on above: Result Comment: Triglyceride Guidelines: <150 Desirable 150-199 Borderline 200-499 High >499 Very high Based on AHA Guidelines for fasting triglyceride, March 2012. Performed By: #### F EBC, LIPR, FT4 #### [facility] [address] [place] [address] Chemist Internship: Arnav Barnes MD #### HH #### [facility] [address] [place], [place] [id number] Chemist Internship: Анна Biswas MD Thyroxine, Freeon 12-01-2023 Thyroxine, Free 1.1 ng/dL Normal 0.92-1.68 [facility] Comment on above: Performed By: #### F EBC, LIPR, FT4 #### [facility] [address] [place] [address] Chemist Internship: Arnav Barnes MD #### HH #### [facility] [address] [place], [place] [id number] Chemist Internship: Анна Biswas MD Office Visiton 11-16-2023 Follow-up visit [id number] Faith Penn 1945 M Date Provider Department Center 11/16/2023 Dave-MORE TRAORE CARD Jonny Hos Family History Problem Relation Age of Onset Stroke Father Diabetes Father Family Status - Relation Status Age at Father Level of Service:57324 NE OFFICE/OUTPATIENT ESTABLISHED MOD MDM 30 MIN Normal [facility] Outside Recordson 11-03-2023 Outside Records [id number] 1.00TIFF Normal [facility] Alanine aminotransferase [En zymatic activity/volume] in Serum or PlasmaOrdered By: Leonides Velasquez on 06-06-2023 ALT [Catalytic activity/Vol] 23 U/L Normal 7-52 [facility] Comment on above: Performed By: #### C BC, CMP #### [address] Albumin [Mass/volume] in Ser um or Plasma by Bromocresol green (BCG) dye binding methoOrdered By: Leonides Velasquez on 06-06-2023 Albumin BCG dye [Mass/Vol] 4.3 g/dL 3.5-5.7 [facility] Alkaline phosphatase [Enzyma tic activity/volume] in Serum or PlasmaOrdered By: Leonides Velasquez on 06-06-2023 ALP [Catalytic activity/Vol] 42 U/L Normal 34-104 [facility] Comment on above: Performed By: #### C BC, CMP #### [facility] [address] [place] [address] [place] Aspartate aminotransferase [ Enzymatic activity/volume] in Serum or PlasmaOrdered By: Leonides Velasquez on 06-06-2023 AST [Catalytic activity/Vol] 22 U/L Normal 13-39 [facility] Comment on above: Performed By: #### C BC, CMP #### [facility] [address] [place] [address] [place] Automated basophil %Ordered By: Leonides Velasquez on 06-06-2023 Basophils/100 WBC (Bld) 0.4 % Normal . [facility] Comment on above: Performed By: #### C BC, CMP #### [facility] [address] [place] [address] [place] Automated basophil countOrde red By: Leonides Manisha on 06-06-2023 Basophils (Bld) [#/Vol] 0.0 10*3/uL Normal 0.0-0.2 [facility] Comment on above: Result Comment: PERF ORMED BY: [place] [address] PATHOLOGIST LEAD JAVASCRIPT ENGINEER ANNABEL SANON M.D. Performed By: #### C DIPIKA, CMP #### [address] Automated blood monocyte cou ntOrdered By: Leonides Velasquez on 06-06-2023 Monocytes (Bld) [#/Vol] 1.0 10*3/uL High 0.0-0.8 [facility] Comment on above: Performed By: #### C DIPIKA, CMP #### [address] Automated eosinophil %Ordere d By: Leonides Velasquez on 06-06-2023 Eosinophils/100 WBC (Bld) 0.2 % Normal . [facility] Comment on above: Performed By: #### C DIPIKA, CMP #### [address] Automated eosinophil countOr dered By: Leonides Velasquez on 06-06-2023 Eosinophils (Bld) [#/Vol] 0.0 10*3/uL Normal 0.0-0.45 [facility] Comment on above: Performed By: #### C DIPIKA, CMP #### [address] Automated erythrocytes count in urine sediment (number/area)Ordered By: Leonides eVlasquez on 06-06-2023 RBC Auto (Urine sed) [#/Area] 0-1 [HPF] 0-4 [facility] Automated leukocytes count i n urine sediment (number/area)Ordered By: Leonides Velasquez on 06-06-2023 WBC Auto (Urine sed) [#/Area] 1-2 [HPF] 0-4 [facility] Automated monocyte %Ordered By: Leonides Velasquez on 06-06-2023 Monocytes/100 WBC (Bld) 20.7 % Normal . [facility] Comment on above: Performed By: #### C BC, CMP #### [address] Automated neutrophil %Ordere d By: Leonides Manisha on 06-06-2023 Neutrophils/100 WBC (Bld) 66.6 % Normal . [facility] Comment on above: Performed By: #### C BC, CMP #### [address] Automated urine color determ inationOrdered By: Leonides Manisha on 06-06-2023 Color (U) Yellow Normal Yellow [facility] Comment on above: Order Comment: Name Collection Type:: Clean-Voided Midstream Performed By: #### A DDONUAPLUS #### [address] Bilirubin Test strip Ql (U)O rdered By: Leonides Velasquez on 06-06-2023 Bilirubin Ql (U) Negative Negative [facility] Bilirubin.total [Mass/volume ] in Serum or PlasmaOrdered By: Leonides Velasquez on 06-06-2023 Bilirubin [Mass/Vol] 0.5 mg/dL Normal 0.3-1.0 [facility] Comment on above: Performed By: #### C BC, CMP #### [address] Calcium [Mass/volume] in Ser um or PlasmaOrdered By: Leonides Velasquez on 06-06-2023 Calcium [Mass/Vol] 9.1 mg/dL Normal 8.6-10.3 [facility] Comment on above: Performed By: #### C BC, CMP #### [address] Carbon dioxide, total [Moles /volume] in Serum or PlasmaOrdered By: Leonides Velasquez on 06-06-2023 CO2 [Moles/Vol] 27.5 mmol/L Normal 21.0-31.0 [facility] Comment on above: Performed By: #### C BC, CMP #### [address] [place] [address] [place] Chloride [Moles/volume] in S stephen or PlasmaOrdered By: Leonides Velasquez on 06-06-2023 Chloride [Moles/Vol] 101 mmol/L Normal 98-107 [facility] Comment on above: Performed By: #### C BC, CMP #### [address] Complete Blood Count Auto Di ffon 06-06-2023 Mean Corpuscular HGB Conc 33.8 g/dL Normal 32.5-35.6 [facility] Comment on above: Performed By: #### C BC, CMP #### [address] Monocytes/100 WBC (Bld) 24.84 % High 0.00-20.00 [facility] Comment on above: Result Comment: For adults in ED, MDW > 20.0 may be associated with a higher risk of sepsis during the first 12 hrs of hospital admission Performed By: #### C BC, CMP #### [address] NRBC% 0.1 /100{WBC} Normal 0-0.5 [facility] Comment on above: Performed By: #### C BC, CMP #### [address] Comprehensive Metabolic Pane ruth 06-06-2023 Albumin [Mass/Vol] 4.3 g/dL Normal 3.5-5.7 [facility] Comment on above: Performed By: #### C BC, CMP #### [address] Creatinine Clr Calc Pharmacy 71.67 Normal [facility] Comment on above: Result Comment: PERF ORMED BY: [place] [address] PATHOLOGIST LEAD JAVASCRIPT ENGINEER ANNABEL SANON M.D. Performed By: #### C BC, CMP #### [address] GFR/1.73 sq M.predicted MDRD (S/P/Bld) [Vol rate/Area] mL/min/{1.73_m2} Normal [facility] Comment on above: Performed By: #### C BC, CMP #### [address] Creatinine [Mass/volume] in Serum or PlasmaOrdered By: Leonides Velasquez on 06-06-2023 Creatinine [Mass/Vol] 0.96 mg/dL Normal 0.70-1.30 [facility] Comment on above: Performed By: #### C BC, CMP #### [place] [address] [place] Dipstick and Microscopicon 1 Appearance (U) Clear Normal Clear [facility] Comment on above: Order Comment: Name Collection Type:: Clean-Voided Midstream Performed By: #### A DDONUAPLUS #### [place] [address] [place] Bacteria,Urine 1+ High None Seen [facility] Comment on above: Order Comment: Name Collection Type:: Clean-Voided Midstream Performed By: #### A DDONUAPLUS #### [place] [address] [place] Bilirubin,Urine Negative Normal Negative [facility] Comment on above: Order Comment: Name Collection Type:: Clean-Voided Midstream Performed By: #### A DDONUAPLUS #### [address] Glucose Ql (U) Normal Normal Normal [facility] Comment on above: Order Comment: Name Collection Type:: Clean-Voided Midstream Performed By: #### A DDONUAPLUS #### [place] [address] [place] Hyaline Casts,Urine None Seen Normal 0-8 [facility] Comment on above: Order Comment: Name Collection Type:: Clean-Voided Midstream Result Comment: PERF ORMED BY: [place] [address] PATHOLOGIST LEAD JAVASCRIPT ENGINEER ANNABEL SANON M.D. Performed By: #### A DDONUAPLUS #### [place] [address] [place] Ketones Ql (U) 1+ High Negative [facility] Comment on above: Order Comment: Name Collection Type:: Clean-Voided Midstream Performed By: #### A DDONUAPLUS #### [address] Leukocyte esterase Test strip Ql (U) Negative Normal Negative [facility] Comment on above: Order Comment: Name Collection Type:: Clean-Voided Midstream Performed By: #### A DDONUAPLUS #### [place] [address] [place] Nitrite,Urine Negative Normal Negative [facility] Comment on above: Order Comment: Name Collection Type:: Clean-Voided Midstream Performed By: #### A DDONUAPLUS #### [place] [address] [place] Occult Blood,Urine Trace High Negative [facility] Comment on above: Order Comment: Name Collection Type:: Clean-Voided Midstream Result Comment: PERF ORMED BY: [place] [address] PATHOLOGIST LEAD JAVASCRIPT ENGINEER ANNABEL SANON M.D. Performed By: #### A DDONUAPLUS #### [place] [address] [place] Protein,Urine Negative Normal Negative [facility] Comment on above: Order Comment: Name Collection Type:: Clean-Voided Midstream Performed By: #### A DDONUAPLUS #### [place] [address] [place] RBC LM.HPF (Urine sed) [#/Area] 0 /[HPF] Normal 0-4 [facility] Comment on above: Order Comment: Name Collection Type:: Clean-Voided Midstream Performed By: #### A DDONUAPLUS #### [place] [address] [place] Specificy [place],Urine 1.018 Normal 1.001-1.030 [facility] Comment on above: Order Comment: Name Collection Type:: Clean-Voided Midstream Performed By: #### A DDONUAPLUS #### [address] Squamous Epithelial Cell,Urine None Seen Normal 0-2 [facility] Comment on above: Order Comment: Name Collection Type:: Clean-Voided Midstream Performed By: #### A DDONUAPLUS #### [address] Urobilinogen,Urine Normal Normal Normal [facility] Comment on above: Order Comment: Name Collection Type:: Clean-Voided Midstream Performed By: #### A DDONUAPLUS #### [address] WBC,Urine 1-2 Normal 0-4 [facility] Comment on above: Order Comment: Name Collection Type:: Clean-Voided Midstream Performed By: #### A DDONUAPLUS #### [address] ECG 12 lead ECGon 06-06-2023 ECG 12 lead ECG [facility] [place] [address] [place] [address] Electrocardiograph Report Signed Patient: Faith Penn MR#: [id number] 655 : 1945 Acct:[id number] Age/Sex: 78 / M ADM Date: 06/06/23 Loc: ER Room: Type: [facility] ER Attending Dr: Ordering Provider: Leonides [...] By Leonides Velasquez DO 2312 Normal [facility] Erythrocyte distribution wid th [Ratio] by Automated countOrdered By: Leonides Velasquez on 06-06-2023 Erythrocyte distribution width (RBC) [Ratio] 12.9 % Normal 12.0-14.8 [facility] Comment on above: Performed By: #### C BC, CMP #### [facility] [address] Erythrocytes [#/volume] in B lood by Automated countOrdered By: Leonides Velasquez on 06-06-2023 RBC (Bld) [#/Vol] 4.13 10*6/uL Normal 3.90-5.60 [facility] Comment on above: Performed By: #### C BC, CMP #### [facility] [address] [place] [address] [place] Glucose [Mass/volume] in Ser um or PlasmaOrdered By: Leonides Velasquez on 06-06-2023 Glucose [Mass/Vol] 91 mg/dL Normal 70-100 [facility] Comment on above: ADA recommended refe rence rangeRandom Glucose Reference Range is dependent on time and content of last meal. Glucose of more than 200 mg/dL in a nonstressed, ambulatory subject supports the diagnosis of Diabetes Mellitus. Result Comment: [place] om Glucose Reference Range is dependent on time and content of last meal. Glucose of more than 200 mg/dL in a nonstressed, ambulatory subject supports the diagnosis of Diabetes Mellitus. ADA recommended reference range Performed By: #### C BC, CMP #### [facility] [address] [place] [id number] [place] Hematocrit [Volume Fraction] of Blood by Automated countOrdered By: Leonides Velasquez on 06-06-2023 Hematocrit (Bld) [Volume fraction] 39.6 % Normal 38.8-50.0 [facility] Comment on above: Performed By: #### C BC, CMP #### [facility] [address] [place] [id number] [place] Hemoglobin [Mass/volume] in BloodOrdered By: Leonides Velasquez on 06-06-2023 Hemoglobin (Bld) [Mass/Vol] 13.4 g/dL Normal 13.0-17.0 [facility] Comment on above: Performed By: #### C BC, CMP #### [address] Ketones Auto test strip (U) [Mass/Vol]Ordered By: Leonides Velasquez on 06-06-2023 Ketones (U) [Mass/Vol] 1+ Negative [facility] - UrinalysisOrder ed By: Leonides Velasquez on 06-06-2023 Hyaline casts LM Ql (Urine sed) None seen [LPF] 0-8 [facility] Leukocytes [#/volume] correc hunter for nucleated erythrocytes in Blood by Automated counOrdered By: Leonides Velasquez on 06-06-2023 WBC corrected for nucl RBC Auto (Bld) [#/Vol] 4.9 10*3/uL 4.1-10.5 [facility] Leukocytes [#/volume] in Blo od by Automated countOrdered By: Leonides Velasquez on 06-06-2023 WBC (Bld) [#/Vol] 4.9 10*3/uL Normal 4.1-10.5 [facility] Comment on above: Performed By: #### C BC, CMP #### [place] [address] [place] Lymphocytes [#/volume] in Bl ood by Automated countOrdered By: Leonides Velasquez on 06-06-2023 Lymphocytes (Bld) [#/Vol] 0.6 10*3/uL Low 1.00-4.8 [facility] Comment on above: Performed By: #### C BC, CMP #### [facility] [address] [place] [address] [place] Lymphocytes/100 leukocytes i n Blood by Automated countOrdered By: Leonides Velasquez on 06-06-2023 Lymphocytes/100 WBC (Bld) 12.1 % Normal . [facility] Comment on above: Performed By: #### C BC, CMP #### [address] [place] [address] [place] MCH [Entitic mass] by Automa hunter countOrdered By: Leonides Velasquez on 06-06-2023 MCH (RBC) [Entitic mass] 32.4 pg Normal 27.5-35.2 [facility] Comment on above: Performed By: #### C BC, CMP #### [address] MCHC Auto (RBC) [Mass/Vol]Or dered By: Leonides Velasquez on 06-06-2023 MCHC (RBC) [Mass/Vol] 33.8 g/dL 32.5-35.6 [facility] MCV [Entitic volume] by Auto mated countOrdered By: Leonides Velasquez on 06-06-2023 MCV (RBC) [Entitic vol] 95.9 fL Normal 83.5-101 [facility] Comment on above: Performed By: #### C BC, CMP #### [address] Monocyte distribution width [Entitic volume] in Blood by AutomatedOrdered By: Leonides Velasquez on 06-06-2023 Monocyte distribution width Auto (Bld) [Entitic vol] 24.84 % 0.00-20.00 [facility] Comment on above: For adults in ED, MD W > 20.0 may be associated with a higher risk of sepsis during the first 12 hrs of hospital admission Neutrophils [#/volume] in Bl ood by Automated countOrdered By: Leonides Velasquez on 06-06-2023 Neutrophils (Bld) [#/Vol] 3.3 10*3/uL Normal 1.8-7.7 [facility] Comment on above: Performed By: #### C BC, CMP #### [address] Nitrite Test strip Ql (U)Ord ered By: Leonides Velasquez on 06-06-2023 Nitrite Ql (U) Negative Negative [facility] No Panel InformationOrdered By: Leonides Velasquez on 06-06-2023 Estimated GFR (CKD-EPI) > 60.0 mL/Min [facility] Creatinine Clearance (Chem 71.67 [facility] Nucleated erythrocytes [Pres ence] in Blood by Automated countOrdered By: Leonides Velasquez on 06-06-2023 Nucleated RBC Auto Ql (Bld) 0.1 /100{WBC} 0-0.5 [facility] Platelet mean volume [Entiti c volume] in Blood by Automated countOrdered By: Leonides Velasquez on 06-06-2023 Platelet mean volume (Bld) [Entitic vol] 7.4 fL Normal 6.6-10.1 [facility] Comment on above: Performed By: #### C BC, CMP #### [address] Platelets [#/volume] in Bloo d by Automated countOrdered By: Leonides Velasquez on 06-06-2023 Platelets (Bld) [#/Vol] 175 10*3/uL Normal 150-450 [facility] Comment on above: Performed By: #### C BC, CMP #### [address] Potassium [Moles/volume] in Serum or PlasmaOrdered By: Leonides Velasquez on 06-06-2023 Potassium [Moles/Vol] 3.8 mmol/L Normal 3.5-5.1 [facility] Comment on above: Performed By: #### C BC, CMP #### [address] Protein Auto test strip (U) [Mass/Vol]Ordered By: Leonides Velasquez on 06-06-2023 Protein (U) [Mass/Vol] Negative Negative [facility] Protein [Mass/volume] in Ser um or PlasmaOrdered By: Leonides Velasquez on 06-06-2023 Protein [Mass/Vol] 7.5 g/dL Normal 6.4-8.9 [facility] Comment on above: Performed By: #### C BC, CMP #### [address] Serum globulin measurement b y calculation (mass/volume)Ordered By: Leonides Velasquez on 06-06-2023 Globulin (S) [Mass/Vol] 3.2 g/dL [facility] Comment on above: Performed By: #### C DIPIKA, CMP #### [address] Serum or plasma albumin/glob ulin mass ratioOrdered By: Leonides Velasquez on 06-06-2023 Albumin/Globulin [Mass ratio] 1.3 {ratio} [facility] Comment on above: Performed By: #### C BC, CMP #### [address] Serum or plasma anion gap de terminationOrdered By: Leonides Velasquez on 06-06-2023 Anion gap [Moles/Vol] 8.3 mmol/L Normal 6.0-15.0 [facility] Comment on above: Performed By: #### C DIPIKA, CMP #### [address] Sodium [Moles/volume] in Ser um or PlasmaOrdered By: Leonides Velasquez on 06-06-2023 Sodium [Moles/Vol] 133 mmol/L Low 136-145 [facility]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 mL/min/{1.73_m2} Normal >60 The [facility] Comment on above: Order Comment: No: D o not add to previous draw Result Comment: Calc ulation may not be valid for patients over 70 years Performed By: #### [id number] #### [facility] [address] [place] [address], [place] GFR/1.73 sq M.predicted among non-blacks MDRD (S/P/Bld) [Vol rate/Area] mL/min/{1.73_m2} Normal >60 The [facility] Comment on above: Order Comment: No: D o not add to previous draw Result Comment: Calc ulation may not be valid for patients over 70 years Performed By: #### [id number] #### [facility] [address] [place] [address], [place] Glucose [Mass/Vol] 115 mg/dL High 70-100 The [facility] Comment on above: Order Comment: No: D o not add to previous draw Performed By: #### [id number] #### [facility] [address] [place] [id number], [facility] Potassium [Moles/Vol] 3.8 mmol/L Normal 3.5-5.1 The [facility] Comment on above: Order Comment: No: D o not add to previous draw Performed By: #### 0 [id number] #### [facility] [address] [place] [address], [facility] Protein [Mass/Vol] 6.4 g/dL Normal 6.0-8.3 The [facility] Comment on above: Order Comment: No: D o not add to previous draw Performed By: #### 0 [id number] #### [facility] [address] [place] [address], [facility] Sodium [Moles/Vol] 135 mmol/L Low 136-145 The [facility] Comment on above: Order Comment: No: D o not add to previous draw Performed By: #### 0 [id number] #### [facility] [address] [place] [address], [facility] Urea nitrogen [Mass/Vol] 14 mg/dL Normal 7-25 The [facility] Comment on above: Order Comment: No: D o not add to previous draw Performed By: #### 0 [id number] #### [facility] [address] [place] [address], [facility] PROTHROMBIN TIMEon 2 INR Coag (PPP) [Relative time] 1.09 {INR} Normal 0.91-1.16 The [facility] Comment on above: Result Comment: ACCC [...] 1995;[id number]. Performed By: #### [id number] #### [facility] [address] PT Coag (PPP) [Time] 14.1 s Normal 12.3-14.8 The [facility] Comment on above: Result Comment: ALL RESULTS MUST BE INTERPRETED WITH RESPECT TO BLOOD DRAWING ARTIFACT OR DILUTION ERROR OF ANTICOAGULANT AT THE TIME OF SAMPLING. Performed By: #### [id number] #### [facility] [address] [facility] MRI BRAIN WO CONTRASTOrdered By: Candace Giron on 03-29-2021 Mild cerebral atroph y with minimal small vessel ischemic changes of the supratentorial white matter. [employer] Work Phone: EXAM: MRI BRAIN WO CONTRAST [...] the paranasal sinuses and mastoid air cells. [employer] Phone: Kenneth, pn Incoming Radiant Results From i-marker/Regen - 03/29/2021 3:13 PM EDT EXAM: MRI [...] ischemic changes of the supratentorial white matter. [employer] Phone: Ze[employer] Phone: Basic Metabolic PanelOrdered By: Candace Giron on 10-22-2020 Anion gap [Moles/Vol] 8 mmol/L Low 9 - 17 mmol/L [employer] Phone: Calcium [Mass/Vol] 9.3 mg/dL 8.6 - 10. 4 mg/dL [employer] Phone: Chloride [Moles/Vol] 103 mmol/L 98 - 10 7 mmol/L [employer] Phone: CO2 [Moles/Vol] 27 mmol/L 20 - 31 mmol/L [employer] Phone: Creatinine [Mass/Vol] 0.79 mg/dL 0.70 - 1.20 mg/dL [employer] Phone: GFR >60 >60 mL/min [email or web address] Phone: GFR Non- >60 >60 mL/min [employer] Phone: GFR/1.73 sq M.predicted MDRD (S/P/Bld) [Vol rate/Area] [facility] Phone: Comment on above: Average GFR for 70 o r more years old: 75 mL/min/1.73sq m Chronic Kidney Disease: <60 mL/min/1.73sq m Kidney failure: <15 mL/min/1.73sq m eGFR calculated using average adult body mass. Additional eGFR calculator available at: http://www.[employer]/IdleAir_crcl_2012.htm GFR/1.73 sq M.predicted MDRD (S/P/Bld) [Vol rate/Area] NOT REPORTED [facility] Phone: Glucose [Mass/Vol] 111 mg/dL High 70 - 99 mg/dL [facility] [employer] Phone: Interpretation and review of laboratory results Abnormal [facility] Phone: Potassium [Moles/Vol] 4.1 mmol/L 3.7 - 5.3 mmol/L [facility] Phone: Sodium [Moles/Vol] 138 mmol/L 135 - 144 mmol/L [facility] Phone: Urea nitrogen (BldV) [Mass/Vol] 19 mg/dL 8 - 23 mg/dL [employer] Phone: Urea nitrogen/Creatinine (Bld) [Mass ratio] 24 High [facility] Phone: CBC Auto DifferentialOrdered By: Candace Giron on 10-22-2020 Absolute [employer]os # 0.10 [employer] Work Phone: Absolute Immature Granulocyte NOT REPORTED [facility] Work Phone: Absolute Lymph # 1.70 [facility] [email or web address] [facility] Work Phone: Absolute [place]field # 0.50 [facility] Work Phone: Basophils (Bld) [#/Vol] 0.00 10*3/uL [employer] Work Phone: Basophils/100 WBC (Bld) 1 % 0 - 2 % [employer] Work Phone: Differential Type YES [employer] Work Phone: Eosinophils/100 WBC (Bld) 1 % 0 - 5 % [employer] Phone: Hematocrit (Bld) [Volume fraction] 43.1 % 41 - 53 % [employer] Work Phone: Hemoglobin.gastrointes tinal spec 1 Ql (Stl) 14.6 g/dL 13.5 - 17.5 g/dL [employer] Work Phone: Immature Granulocytes NOT REPORTED 0 % M [employer] Work Phone: Interpretation and review of laboratory results Abnormal [employer] Phone: Lymphocytes/100 WBC (Bld) 33 % 13 - 44 % [employer] Phone: MCH (RBC) [Entitic mass] 32.8 pg 26 - 34 pg [employer] Work Phone: MCHC (RBC) [Mass/Vol] 33.9 g/dL 31 - 37 g/dL M [employer] Phone: MCV (RBC) [Entitic vol] 96.6 fL 80 - 100 fL [employer] Work Phone: Monocytes/100 WBC (Bld) 9 % 5 - 9 % [employer] Phone: NRBC Automated NOT REPORTED per 100 WBC [employer] Work Phone: Platelet distribution width (Bld) [Ratio] 13.1 % 12.1 - 15.2 % [employer] Phone: Platelet Estimate NOT REPORTED [employer] Phone: Platelet mean volume (Bld) [Entitic vol] NOT REPORTED 6.0 - 12.0 fL [employer] Phone: Platelets (Bld) [#/Vol] 241 10*3/uL [employer] Work Phone: RBC (Bld) [#/Vol] 4.46 10*6/uL Low 4.5 - 5.9 m/uL [employer] Phone: RBC (Bld) [#/Vol] NOT REPORTED [employer] Phone: Segmented neutrophils/100 WBC (Bld) 56 % 39 - 75 % [employer] Phone: Segs Absolute 2[employer]90 [employer] Work Phone: WBC (Bld) [#/Vol] 5.1 10*3/uL [employer] Work Phone: WBC (Bld) [#/Vol] NOT REPORTED [employer] Phone: [employer] Phone: Hepatic Function PanelOrdere d By: Candace Giron on 10-22-2020 Albumin [Mass/Vol] 4.2 g/dL 3.5 - 5.2 g/dL [employer] Phone: Albumin/Globulin Ratio NOT REPORTED [employer] Phone: ALP (Bld) [Catalytic activity/Vol] 52 U/L 40 - 129 U/L [employer] Phone: ALT [Catalytic activity/Vol] 28 U/L 5 - 41 U/L [employer] Work Phone: AST [Catalytic activity/Vol] 23 U/L <40 [employer] Phone: Bilirubin [Mass/Vol] 0.33 mg/dL 0.30 - 1.20 mg/dL [employer] Phone: Bilirubin, Indirect CANNOT BE CALCULATED 0.00 - 1.00 mg/dL [employer] Phone: Bilirubin.indirect [Mass/Vol] mg/dL <0.31 mg/dL [employer] Phone: Free PSA/Total PSA [Mass fraction] 7.0 g/dL 6.4 - 8.3 g/dL [employer] Phone: Globulin NOT REPORTED 1.5 - 3.8 g/dL [employer] Phone: Lipid PanelOrdered By: Candace Giron on 10-22-2020 Cholesterol [Mass/Vol] 145 mg/dL <200 Me [employer] Phone: Comment on above: Cholesterol Guidelines: <200 Desirable 200-240 Borderline >240 Undesirable Cholesterol in HDL [Mass/Vol] 54 mg/dL >40 [employer] Phone: Comment on above: HDL Guidelines: <40 Undesirable 40-59 Borderline >59 Desirable Cholesterol in LDL [Mass/Vol] 85 mg/dL 0 - 130 mg/dL [employer] Phone: Comment on above: LDL Guidelines: <100 Desirable 100-129 Near to/above Desirable 130-159 Borderline >159 Undesirable Direct (measured) LDL and calculated LDL are not interchangeable tests. Cholesterol in VLDL [Mass/Vol] NOT REPORTED 1 - 30 mg/dL [employer] Phone: Cholesterol.total/Chol esterol in HDL [Mass ratio] 2.7 {ratio} <5 [employer] Phone: Triglyceride [Mass/Vol] 31 mg/dL <150 [employer] Phone: Comment on above: Triglyceride Guidelines: <150 Desirable 150-199 Borderline 200-499 High >499 Very high Based on AHA Guidelines for fasting triglyceride, March 2012. [employer] Phone: No Panel InformationOrdered By: Candace Giron on 10-22-2020 [employer] Phone: PSA screeningOrdered By: Flora Giron on 10-22-2020 [employer] Phone: Patient Fasting?Ordered By: Candace Giron on 10-22-2020 Patient Fasting? yes [email or web address] Work Phone: [employer] Phone: TSH with ReflexOrdered By: Dori Giron on 10-22-2020 TSH Qn 2.71 m[IU]/L [facility] Phone: Comprehensive Metabolic Pane ruth 08-25-2019 Albumin [Mass/Vol] 4.8 g/dL 3.5 - 5.2 g/dL [place], [place] Albumin/Globulin [Mass ratio] NOT REPORTED [place] ALP [Catalytic activity/Vol] 49 U/L 40 - 129 U/L [place] ALT [Catalytic activity/Vol] 39 U/L 5 - 41 U/L [place] Anion gap [Moles/Vol] 11 mmol/L 9 - 17 mmol/L [place] AST [Catalytic activity/Vol] 27 U/L <40 [place] Bilirubin Ql (U) 0.76 mg/dL 0.3 - 1.2 mg/dL [place] Bun/Cre Ratio 17 [place], [place] Calcium [Mass/Vol] 10.5 mg/dL High 8.6 - 10. 4 mg/dL [place] Chloride [Moles/Vol] 99 mmol/L 98 - 10 7 mmol/L [place] CO2 [Moles/Vol] 28 mmol/L 20 - 31 mmol/L [place] Creatinine [Mass/Vol] 0.95 mg/dL 0.7 - 1.2 mg/dL [place] GFR >60 >60 mL/min [place] GFR Non- >60 >60 mL/min [place] GFR/1.73 sq M predicted among non-blacks MDRD (S/P/Bld) [Vol rate/Area] [place] Comment on above: Average GFR for 70 o r more years old: 75 mL/min/1.73sq m Chronic Kidney Disease: <60 mL/min/1.73sq m Kidney failure: <15 mL/min/1.73sq m eGFR calculated using average adult body mass. Additional eGFR calculator available at: http://www.[employer]/multiple_crcl_2012.htm GFR/1.73 sq M predicted among non-blacks MDRD (S/P/Bld) [Vol rate/Area] NOT REPORTED [place] Glucose [Mass/Vol] 111 mg/dL High 70 - 99 mg/dL [place], [place] Interpretation and review of laboratory results Abnormal [place] Potassium [Moles/Vol] 4.6 mmol/L 3.7 - 5.3 mmol/L [place] Protein [Mass/Vol] 8.1 g/dL 6.4 - 8.3 g/dL [place] Sodium [Moles/Vol] 138 mmol/L 135 - 144 mmol/L [place] Urea nitrogen [Mass/Vol] 16 mg/dL 8 - 23 mg/dL [place] Lipid Panelon 08-25-2019 Cholesterol [Mass/Vol] 154 mg/dL <200 Me [place], [place] Comment on above: Cholesterol Guidelines: <200 Desirable 200-240 Borderline >240 Undesirable Cholesterol in HDL [Mass/Vol] 65 mg/dL >40 [place] Comment on above: HDL Guidelines: <40 Undesirable 40-59 Borderline >59 Desirable Cholesterol in LDL [Mass/Vol] 82 mg/dL 0 - 130 mg/dL [place] Comment on above: LDL Guidelines: <100 Desirable 100-129 Near to/above Desirable 130-159 Borderline >159 Undesirable Direct (measured) LDL and calculated LDL are not interchangeable tests. Cholesterol in VLDL [Mass/Vol] NOT REPORTED 1 - 30 mg/dL [place] Cholesterol.total/Chol esterol in HDL [Mass ratio] 2.4 {ratio} <5 [place] Triglyceride [Mass/Vol] 36 mg/dL <150 [place] Comment on above: Triglyceride Guidelines: <150 Desirable 150-199 Borderline 200-499 High >499 Very high Based on AHA Guidelines for fasting triglyceride, March 2012. Patient Fasting?on 0 Patient Fasting? yes [place] TSH with Reflexon 08-25-2019 TSH Qn 3.70 m[IU]/L [place] VL DUP CAROTID BILATERALon 0 08-25-2019 [facility] Vascular Carotid Procedure Patient Name CHARLINE Date of Study 08/25/2019 FAITH Lombardo Date of 1945 Gender Male Age 74 year(s) Race Room Number US Corporate ID [id number] # Patient Acct [id number] # MR # [id number] Poultry Farmer Meat MICHELLE Toscano Interpreting Physician Anusha Lopez Referring Candace Giron Referring Physician Nurse PAPER GUILLOTINE OPERATOR Practitioner Procedure Type of Study: Cerebral: Carotid, [...] side. - Additional Measurements:ICAPSV/C CAPSV 1.73.ICAEDV/CCAEDV 1.84. [facility]- [place], [place] Kenneth, pn Incoming Cardio Results From [facility]/ - 08/25/2019 2:01 PM EDT [facility] Vascular Carotid Procedure Patient Name CHARLINE Date of Study 08/25/2019 FAITH Grupo Date of 1945 Gender Male Age 74 year(s) Race Room Number US Corporate ID [id number] # Patient Acct [id number] # MR # [id number] Poultry Farmer Meat MICHELLE Toscano [facility] Interpreting Physician Anusha Lopez Referring Candace Giron Referring Physician Nurse PAPER GUILLOTINE OPERATOR Practitioner Procedure Type of Study: Cerebral: Carotid, [...] side. - Additional Measurements:ICAPSV/C CAPSV 1.73.ICAEDV/CCAEDV 1.84. [place] Vitamin B12 & Folateon 08-24 Cobalamin (Vitamin B12) [Mass/Vol] 944 pg/mL 232 - 1245 pg/mL [place] Folate >20.0 >4.8 ng/mL [place] Vital Signs Date Time Vital Sign Value Performing Clinician Facility 01-26-2025 15:39-0400 Body height 185.4 cm Romero Salinas MD Work Phone: [facility] 01-26-2025 15:39-0400 Body mass index (BMI) [Ratio] 23.22 kg/m2 Romero Salinas MD Work Phone: [facility] 01-26-2025 15:39-0400 Body weight 79.83 kg Romero Salinas MD Work Phone: [facility] 11-30-2024 09:46-0400 Body height 185.4 cm Dafne Melendez SURGICAL PHYSICIAN ASSISTANT Work Phone: [facility] 11-30-2024 09:46-0400 Body mass index (BMI) [Ratio] 24.01 kg/m2 Dafne Tatygel SURGICAL PHYSICIAN ASSISTANT Work Phone: [facility] 11-30-2024 09:46-0400 Body weight 82.56 kg Dafne Tatygel SURGICAL PHYSICIAN ASSISTANT Work Phone: [facility] 11-30-2024 09:46-0400 Diastolic blood pressure 60 mm[Hg] Dafne Mikenagel SURGICAL PHYSICIAN ASSISTANT Work Phone: [facility] 11-30-2024 09:46-0400 Systolic blood pressure 118 mm[Hg] Dafne Mikenagel SURGICAL PHYSICIAN ASSISTANT Work Phone: [facility] 08-05-2024 14:30-[address] [facility] 08-05-2024 14:30-0500 Diastolic blood pressure 90 mm[Hg] Humaira Orzech [facility] 08-05-2024 14:30-0500 Heart rate 69 /min Humaira Orzech [facility] 08-05-2024 14:30-0500 Respiratory rate 16 /min Humaira Orzech [facility] 08-05-2024 14:30-0500 Systolic blood pressure 152 mm[Hg] Humaira Orzech [facility] 01-27-2024 10:33-0400 Blood Pressure Location Chintan Infoxel [facility] 01-27-2024 10:33-0400 Diastolic blood pressure 71 mm[Hg] Chintan COOK [facility] 01-27-2024 10:33-0400 Heart rate 81 /min Chintan COOK [facility] 01-27-2024 10:33-0400 Systolic blood pressure 116 mm[Hg] Chintan COOK [facility] 01-11-2024 11:08-0400 Blood Pressure Location Humaira Orzech [facility] 01-11-2024 11:08-0400 Body temperature 96.8 [degF] Humaira Orzech [facility] 01-11-2024 11:08-0400 Diastolic blood pressure 72 mm[Hg] Humaira Orzech [facility] 01-11-2024 11:08-0400 Heart rate 70 /min Humaira Orzech [facility] 01-11-2024 11:08-0400 Systolic blood pressure 128 mm[Hg] Humaira Orzech [facility] 12-31-2023 09:24-0400 Blood Pressure Location Makayla Galea [facility] 12-31-2023 09:24-0400 Diastolic blood pressure 76 mm[Hg] Makayla Galea [facility] 12-31-2023 09:24-0400 Heart rate 72 /min Makayla Galea [facility] 12-31-2023 09:24-0400 Respiratory rate 16 /min Makayla Galea [facility] 12-31-2023 09:24-0400 Systolic blood pressure 124 mm[Hg] Makayla Galea [facility] 06-06-2023 19:37-0500 Body temperature 99.2 [degF] COAL GRADER Candace Giron Work Phone: [facility] 06-06-2023 19:37-0500 Diastolic blood pressure 82 mm[Hg] COAL GRADERAlexandra Giron Work Phone: [facility] 06-06-2023 19:37-0500 Heart rate 76 /min COAL GRADERAlexandra Giron Work Phone: [facility] 06-06-2023 19:37-0500 Respiratory rate 22 /min COAL GRADERAlexandra Giron Work Phone: [facility] 06-06-2023 19:37-0500 SaO2% (BldA) [Mass fraction] 99 % COAL GRADERAlexandra Giron Work Phone: [facility] 06-06-2023 19:37-0500 Systolic blood pressure 179 mm[Hg] COAL GRADERAlexandra Rubalcava Bree Work Phone: [facility] 06-06-2023 14:59-0500 Body height 185.42 cm COAL GRADERAlexandra Rubalcava Bree Work Phone: [facility] 06-06-2023 14:59-0500 Body weight 84.7 kg COAL GRADERAlexandra Rubalcava Bree Work Phone: [facility] 01-07-2023 10:31-0400 Diastolic blood pressure 118 mm[Hg] Chintan GRACIA [facility] 01-07-2023 10:31-0400 Heart rate 87 /min Chintan GRACIA [facility] 01-07-2023 10:31-0400 Systolic blood pressure 157 mm[Hg] Chintan GRACIA [facility] 04-15-2022 09:28-0500 Diastolic blood pressure 77 mm[Hg] COAL GRADERAlexandra Rubalcava Bree Work Phone: [facility] 04-15-2022 09:28-0500 Heart rate 58 /min COAL GRADERAlexandra Rubalcava Bree Work Phone: [facility] 04-15-2022 09:28-0500 Respiratory rate 18 /min COAL GRADERAlexandra Rubalcava Bree Work Phone: [facility] 04-15-2022 09:28-0500 SaO2% (BldA) [Mass fraction] 100 % COAL GRADERAlexandra Giron Work Phone: [facility] 04-15-2022 09:28-0500 Systolic blood pressure 125 mm[Hg] COAL GRADERAlexandra Giron Work Phone: [facility] 04-15-2022 07:33-0500 Body height 185.42 cm COAL GRADERAlexandra Giron Work Phone: [facility] 04-15-2022 07:33-0500 Body temperature 97.9 [degF] PORTER Giron Work Phone: [facility] 04-15-2022 07:33-0500 Body weight 79.37 kg PORTER Giron Work Phone: [facility] 01-13-2022 10:01-0400 Blood Pressure Location Chintan GRACIA [facility] 01-13-2022 10:01-0400 Diastolic blood pressure 83 mm[Hg] Chintan Infoxel [facility] 01-13-2022 10:01-0400 Heart rate 81 /min Chintan Infoxel [facility] 01-13-2022 10:01-0400 Respiratory rate 16 /min Chintan Infoxel [facility] 01-13-2022 10:01-0400 Systolic blood pressure 129 mm[Hg] Chintan Infoxel [facility] Encounters Encounter Date Encounter Type Care Provider Facility Start: 08-04-2025 ambulatory Humaira X Orissac Preston y:[facility] [place] Start: 01-26-2025 End: 01-26-2025 Office outpatient visit 25 minutes Romero Salinas MD Work Phone: [facility] Comment on above: Dementia with aggres sive behavior (HCC) (Primary Dx); Memory loss; 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); Insomnia due to medical condition Start: 01-26-2025 End: 01-26-2025 ambulatory ROMERO SALINAS Not Available Start: 01-26-2025 End: 01-26-2025 Bamboo flowsheet Romero Salinas MD Work Phone: [facility] Start: 01-26-2025 End: 01-26-2025 Bamboo flowsheet Romero Salinas MD Work Phone: [facility] Start: 01-05-2025 End: 01-05-2025 Telephone encounter Dafne Melendez SURGICAL PHYSICIAN ASSISTANT Work Phone: [facility] Start: 11-30-2024 End: 11-30-2024 Bamboo flowsheet Dafne C Windnagel SURGICAL PHYSICIAN ASSISTANT Work Phone: [facility] Start: 11-30-2024 End: 11-30-2024 Bamboo flowsheet Dafne C Windnagel SURGICAL PHYSICIAN ASSISTANT Work Phone: [facility] Start: 11-30-2024 End: 11-30-2024 ambulatory DAFNE C MIKENAGEL Not Available Start: 11-30-2024 End: 11-30-2024 Office outpatient visit 25 minutes Dafne C Mikenagel SURGICAL PHYSICIAN ASSISTANT Work Phone: [facility] Comment on above: Late onset Alzheimer 's disease with behavioral disturbance (HCC) (Primary Dx) Start: 11-14-2024 End: 11-14-2024 Transcribe Orders Candace Giron PAPER GUILLOTINE OPERATOR Work Phone: [facility] Comment on above: Behavioral and psych ological symptoms of dementia (HCC) (Primary Dx); Mild cognitive impairment; Major depressive disorder, recurrent, moderate (HCC) Start: 08-15-2024 End: 08-15-2024 ambulatory CANDACE GIRON [facility] Start: 08-15-2024 End: 08-15-2024 Subsequent hospital visit by physician Candace Giron COAL GRADER - PAPER GUILLOTINE OPERATOR Work Phone: [facility] Comment on above: 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); Acquired hypothyroidism; Primary hypertension; Outbursts of explosive behavior; Mixed hyperlipidemia; Dysuria Start: 08-09-2024 End: 08-09-2024 ambulatory [facility] Start: 08-05-2024 End: 08-05-2024 ambulatory Humaira X Orzech Facility:[facility] Start: 08-05-2024 End: 08-05-2024 Patient encounter procedure Humaira X Orzech [facility] Start: 07-11-2024 End: 07-11-2024 Refill Nayla GUZMAN Work Phone: [facility] Comment on above: Other amnesia Start: 06-08-2024 End: 06-14-2024 Refill Malou GUZMAN Work Phone: [facility] Comment on above: Other amnesia Start: 05-16-2024 End: 05-16-2024 ambulatory CANDACE GIRON [facility] Start: 05-16-2024 End: 05-16-2024 Subsequent hospital visit by physician Candace Giron COAL GRADER - [facility] Work Phone: [facility] Comment on above: Mixed hyperlipidemia ; Mild cognitive impairment; IFG (impaired fasting glucose); Primary hypertension; Prostate cancer screening Start: 01-27-2024 End: 01-27-2024 ambulatory CANDACE GIRON Facility:[facility] Start: 01-27-2024 End: 01-27-2024 Patient encounter procedure Chintan GRACIA [facility] Start: 01-11-2024 End: 01-11-2024 ambulatory Humaira X Orzech Facility: [facility] Start: 01-11-2024 End: 01-11-2024 Patient encounter procedure Humaira X Orzech [facility] [place] Start: 01-06-2024 ambulatory Makayla Corona Facility :[facility] Start: 01-02-2024 End: 01-02-2024 ambulatory Charles Kim Facility:CD:[id number] Start: 12-31-2023 End: 12-31-2023 ambulatory Makayla Corona Facility:[facility] Start: 12-31-2023 End: 12-31-2023 Patient encounter procedure Makayla Stokes Sahditerry [facility] Start: 12-30-2023 End: 12-30-2023 Evaluation and management of inpatient [facility] Start: 12-29-2023 End: 12-30-2023 Evaluation and management of inpatient [facility] Start: 12-21-2023 End: 12-21-2023 Evaluation and management of inpatient CANDACE GIRON [facility] Start: 12-02-2023 End: 12-04-2023 ambulatory [facility] Start: 12-01-2023 End: 12-01-2023 ambulatory CANDACE Medina LORNA [facility] Start: 11-16-2023 End: 11-16-2023 ambulatory [facility] Start: 11-16-2023 End: 11-16-2023 Encounter for other preprocedural examination [facility] Start: 11-12-2023 End: 11-12-2023 ambulatory [facility] Start: 10-31-2023 ambulatory [facility] Start: 06-06-2023 End: 06-06-2023 Emergency department patient visit COAL GRADER Candace Giron Work Phone: [facility] Work Phone: Start: 01-07-2023 End: 01-07-2023 Patient encounter procedure Chintan GRACIA [facility] Start: 08-26-2022 End: 08-26-2022 Patient encounter procedure Chintan GRACIA [facility] [place] Start: 08-12-2022 End: 08-13-[address] MORE TRAORE Facility: Start: 04-21-2022 End: 04-21-2022 Subsequent hospital visit by physician Candace Giron COAL GRADER - PAPER GUILLOTINE OPERATOR Work Phone: [facility] Laboratory Comment on above: Mixed hyperlipidemia ; Bilateral carotid artery stenosis; Essential hypertension; History of alcoholism (HCC); Primary hypertension Start: 04-15-2022 End: 04-15-2022 Admission to same day surgery center COAL GRADERAlexandra Giron Work Phone: [facility] Start: 04-15-2022 End: 04-15-2022 ambulatory PORTER Giron Work Phone: [facility] Work Phone: Start: 04-11-2022 End: 04-11-2022 ambulatory COAL GRADERAlexandra Giron Work Phone: [facility] Work Phone: Start: 04-11-2022 End: 04-11-2022 Patient encounter procedure PORTER Giron Work Phone: [facility] Start: 03-13-2022 End: 03-15-2022 Subsequent hospital visit by physician Brian Additional Xray At [facility] Comment on above: Fall, initial encoun ter Start: 01-13-2022 End: 01-13-2022 Patient encounter procedure Chintan GRACIA [facility] [place] Start: 11-11-2021 End: 11-13-2021 Subsequent hospital visit by physician Brian Additional Xray At [facility] Comment on above: Fall, initial encoun ter; Acute midline low back pain without sciatica Start: 06-25-2021 End: 06-26-2021 Evaluation and management of inpatient PHYSICIAN UNKNOWN Facility:[facility] Start: 03-28-2021 End: 03-30-2021 Subsequent hospital visit by physician Brian Mri Scanner [facility] MRI Comment on above: Dizziness; Mild alcohol use disorder, in controlled environment; Bilateral carotid artery stenosis; Short-term memory loss Start: 10-22-2020 End: 10-22-2020 Subsequent hospital visit by physician Candace Giron COAL GRADER - PAPER GUILLOTINE OPERATOR Work Phone: [facility] Comment on above: [...] Start: 08-15-2024 Comprehensive metabo lic panel Candace Medina Bree COAL GRADER - PAPER GUILLOTINE OPERATOR Work Phone: Start: 08-15-2024 HEAVY METAL BLOOD PANEL Candace Carol Bree COAL GRADER - PAPER GUILLOTINE OPERATOR Work Phone: Start: 08-15-2024 T. PALLIDUM AB Candace Carol Bree COAL GRADER - PAPER GUILLOTINE OPERATOR Work Phone: Start: 08-15-2024 Urinalysis microscopic only Candace Medina Bree COAL GRADER - PAPER GUILLOTINE OPERATOR Work Phone: Start: 08-15-2024 Urnls dip stick/tabl et rgnt auto w/o microscopy Candace Carol Bree COAL GRADER - PAPER GUILLOTINE OPERATOR Work Phone: Start: 08-15-2024 VITAMIN B12 & FOLATE Magalie donovan Carol Bree COAL GRADER - PAPER GUILLOTINE OPERATOR Work Phone: Start: 05-16-2024 Comprehensive metabo lic panel Candace Carol Bree COAL GRADER - PAPER GUILLOTINE OPERATOR Work Phone: Start: 05-16-2024 Lipid panel Candace cadena COAL GRADER - PAPER GUILLOTINE OPERATOR Work Phone: Start: 12-29-2023 Carotid endarterectomy Makayla Galea Start: 06-06-2023 Plain chest X-ray COAL GRADER Candace Giron Work Phone: Start: 04-21-2022 Basic metabolic pane l calcium total Candace Medina Quincy COAL GRADER - PAPER GUILLOTINE OPERATOR Work Phone: Start: 04-21-2022 Lipid panel Candacearndal Maciel ebs COAL GRADER - PAPER GUILLOTINE OPERATOR Work Phone: Start: 04-21-2022 PATIENT FASTING? Candace Medina Bree COAL GRADER - PAPER GUILLOTINE OPERATOR Work Phone: Start: 04-15-2022 Colonoscopy COAL GRADER Candace Bree Work Phone: Start: 03-13-2022 Radex facial bones c omplete minimum 3 views Johnny Sudhir Harris COAL GRADER - PAPER GUILLOTINE OPERATOR Work Phone: Start: 11-11-2021 Radex spine lumbosac ral minimum 4 views Candace Medina Bree COAL GRADER - PAPER GUILLOTINE OPERATOR Work Phone: Start: 03-28-2021 Mri brain brain stem w/o contrast material Candace Medina Bree COAL GRADER - PAPER GUILLOTINE OPERATOR Work Phone: Start: 10-22-2020 PSA screening Candace valverde COAL GRADER - PAPER GUILLOTINE OPERATOR Work Phone: Comment on above: The Nataliya ECLIA as say is used. Results obtained with different assay methods cannot be used interchangeably. Start: 10-22-2020 Basic metabolic pane l calcium total Candace Medina Bree COAL GRADER - PAPER GUILLOTINE OPERATOR Work Phone: Start: 10-22-2020 Lipid panel Candacerandal cadena COAL GRADER - PAPER GUILLOTINE OPERATOR Work Phone: Start: 10-22-2020 PATIENT FASTING? Candace Medina Bree COAL GRADER - PAPER GUILLOTINE OPERATOR Work Phone: Start: 06-08-2020 Procedure on artery [...] interchangeably. Start: 08-25-2019 VITAMIN B12 & FOLATE Mejias zion Giron Work Phone: Start: 09-02-2018 Transurethral water vapor ablation of prostate Makayla Galea Start: 08-05-2018 Cystoscopy Makayla Gal ea Colonoscopy Chintan GRACIA SARS Antigen (LFIA) COAL GRADER Flora Giron Work Phone: Structure of bursa ( body structure) Chintan GRACIA Tonsillectomy Chintan GRACIA Plan of Treatment Date Care Activity Detail Author Start: 07-01-2027 DTaP/Tdap/Td vaccine (3 - Td or Tdap) DTaP/Tdap/Td vaccine (3 - Td or Tdap) [email or web address] Start: 05-17-2025 Annual Wellness Visit (Medicare) Annual Wellness Visit (Medicare) [email or web address] Start: 05-16-2025 Depression Monitoring Depression Monitoring [facility] Start: 05-16-2025 Lipid panel Lipids [email or web address] Start: 03-09-2025 End: 03-09-2025 Patient encounter procedure 03/09/2025 9:30 AM EDT Office Visit [facility] [address] [place] [phone] Lissette Treviño, COAL GRADER-PAPER GUILLOTINE OPERATOR [address] [place] [address] [facility] Start: 02-14-2025 End: 02-14-2025 Patient encounter procedure 02/14/2025 2:15 PM EDT Office Visit [facility] [address] [place] [phone] Ted Putnam, [address] [place] [address] [facility] Start: 02-06-2025 Influenza vaccination Influenza Vaccine (#1) [facility] Start: 01-26-2025 End: 01-26-2025 Patient encounter procedure 01/26/2025 3:20 PM EDT Office Visit [facility] [address] [facility] [address] [place] [phone] Romero Salinas MD [address] [address] [facility] Comment on above: Arrived Start: 01-18-2025 End: 01-18-2025 Patient encounter procedure 01/18/2025 3:30 PM EDT Office Visit [facility] [address] [facility] [address] [place] [phone] Dafne Melendez, SURGICAL PHYSICIAN ASSISTANT [address], [address] [address] [facility] Start: 01-16-2025 End: 01-16-2025 Patient encounter procedure 01/16/2025 10:00 AM EDT [facility] [address] [facility] [address] [place] [phone] Dafne Melendez, SURGICAL PHYSICIAN ASSISTANT [address], [address] [address] [facility] Start: 08-15-2024 COVID-19 Vaccine ( season) COVID-19 Vaccine ( season) [facility] Start: 08-15-2024 End: 08-15-2024 Patient encounter procedure 08/15/2024 9:20 AM EDT Office Visit [facility] [address] [place] [phone] Candace Giron, COAL GRADER - PAPER [place] [address] 3 mon check [facility] Comment on above: 3 mon check Start: 06-17-2024 COVID-19 Vaccine ( season) COVID-19 Vaccine ( season) [facility] Start: 02-07-2024 Influenza vaccination Influenza Vaccine (#1) [facility] Start: 12-15-2023 DTaP/Tdap/Td vaccine (2 - Td or Tdap) DTaP/Tdap/Td vaccine (2 - Td or Tdap) [facility] Start: 12-15-2023 DTaP/Tdap/Td vaccine (2 - Td) DTaP/Tdap/Td vaccine (2 - Td) [place] Start: 04-27-2023 End: 04-27-2023 Patient encounter procedure 04/27/2023 Office Visit Family Medicine Candace Giron, COAL GRADER - PAPER [place] [address] [facility] Start: 04-22-2023 Annual Wellness Visit (AWV) Annual Wellness Visit (AWV) [facility] Start: 04-21-2023 Lipid panel Lipids [facility] Start: 11-11-2022 Depression Screen Depression Screen [facility] Start: 11-11-2022 Lipid panel Lipids [facility] Start: 10-20-2022 End: 10-20-2022 Patient encounter procedure 10/20/2022 Office Visit Family Medicine Candace Giron, COAL GRADER - PAPER GUILLOTINE OPERATOR [address] [place] [address] [facility] Start: 04-29-2022 COVID-19 Vaccine (4 - Booster for Pfizer series) COVID-19 Vaccine (4 - Booster for Pfizer series) [employer] Start: 04-15-2022 [facility] Start: 01-06-2022 Influenza vaccination Flu vaccine (#1) [facility] Start: 12-02-2021 End: 12-02-2021 Patient encounter procedure 12/02/2021 Office Visit Family Candace Artis, COAL GRADER - PAPER GUILLOTINE OPERATOR [address] [place] [address] [facility] Start: 10-28-2021 End: 10-28-2021 Patient encounter procedure 10/28/2021 Office Visit Candace Walker, COAL GRADER - PAPER GUILLOTINE OPERATOR [address] [place] [address] [phone] [facility] Start: 10-23-2021 Annual Wellness Visit (AWV) Annual Wellness Visit (AWV) [employer] Start: 10-22-2021 Creatinine measurement Creatinine monitoring [employer] Phone: Start: 10-22-2021 Lipid panel Lipid screen [employer] Phone: Start: 10-22-2021 Potassium monitoring Potassium monitoring [employer] Phone: Start: 09-06-2021 Colon cancer screen colonoscopy Colon cancer screen [facility] [place] Start: 09-06-2021 Screening for malignant neoplasm of colon Colon cancer screen colonoscopy [employer] Phone: Start: 08-05-2021 COVID-19 Vaccine (3 - Booster for Pfizer series) COVID-19 Vaccine (3 - Booster for Pfizer series) [employer] Start: 04-29-2021 End: 04-29-2021 Patient encounter procedure 04/29/2021 Office Visit Family Candace Artis, COAL GRADER - PAPER GUILLOTINE OPERATOR [address] [place] [address] [phone] [facility] Start: 02-06-2021 Influenza vaccination [facility] Work Phone: Start: 08-24-2020 Creatinine monitoring Creatinine monitoring [place] Start: 08-24-2020 Lipid screen Lipid screen [place] Start: 08-24-2020 Potassium monitoring Potassium monitoring [place] Start: 08-17-2020 COVID-19 Vaccine (2 - Pfizer 2-dose series) COVID-19 Vaccine (2 - Pfizer 2-dose series) [facility] [employer] Phone: Start: 09-05-2019 End: 09-05-2019 Office Visit 09/05/2019 Office Visit Family Medicine Candace Giron, COAL GRADER - PAPER GUILLOTINE OPERATOR [address] [place] [address] [phone] [facility] Start: 08-25-2019 End: 08-25-2019 Appointment 08/25/2019 Appointment Vascular Lab [facility] Vascular Lab Start: 04-25-2019 Creatinine monitoring Creatinine monitoring [place] Start: 04-25-2019 Lipid screen Lipid screen [place] Start: 04-25-2019 Potassium monitoring Potassium monitoring [place] Start: 04-14-2019 Pneumococcal 65+ years Vaccine (2 of 2 - PPSV23) Pneumococcal 65+ years Vaccine (2 of 2 - PPSV23) [place] Start: 02-06-2019 Influenza vaccination Flu vaccine (#1) [place] Start: 11-24-2018 Annual Wellness Visit (AWV) Annual Wellness Visit (AWV) [place] Start: 01-01-2017 Pneumococcal 65+ years Vaccine (2 - PPSV23 or PCV20) Pneumococcal 65+ years Vaccine (2 - PPSV23 or PCV20) MEGAN SANCHEZ [facility] EKG 12 Lead EKG 12 Lead ECG Routine Dizziness Essential hypertension Pure hypercholesterolemia 08/22/2019 2:07 PM EDT [place], [place] Heavy Metal Blood Panel Heavy Metal Blood Panel Lab Routine Moderate vascular dementia with agitation (HCC) 08/15/2024 10:41 AM EDT [facility] [employer] End: 08-22-2019 Holter Monitor 48 Hour Holter Monitor 48 Hour Cardiac Services Routine Dizziness 1 Occurrences starting 08/22/2019 until 08/22/2019 [facility] Comment on above: 1 Occurrences starting 08/22/2019 until 08/22/2019 Patient Education [facility] ED/OP COV ID-19 Discharge Instructions [facility] Work Phone: Patient referral [facility] Work Phone: Immunizations Immunization Date Immunization Notes Care Provider Anabel miller 04-22-2024 influenza virus vacc ine, unspecified formulation [employer] [facility] 04-07-2023 influenza virus vacc ine, unspecified formulation [employer] [facility] Comment on above: Result Comment: 2023: VIS DATE: 01/11/2021 04-07-2023 Influenza, FLUAD, (a ge 65 y+), IM, Quadv, 0.5mL Candace [employer] COAL GRADER - [employer] Work Phone: [email or web address] 04-21-2022 pneumococcal polysaccharide vaccine, 23 valent Candace [employer] COAL GRADER [employer] Work Phone: [employer] Work Phone: Comment on above: Result Comment: 2022: VIS DATE: 04/06/2019 03-27-2022 influenza virus vacc ine, unspecified formulation Chintan GRACIA [facility] 03-27-2022 Influenza, FLUZONE ( age 65 y+), High Dose, 0.7mL Candace [employer] COAL GRADER - PAPER GUILLOTINE OPERATOR Work Phone: [employer] 03-27-2022 SARS-CoV-2 (COVID-19 ) [id number] Chintan GRACIA [facility] 12-27-2021 SARS-CoV-2 mRNA (otsiwshhujx-tixi-lmzzfq e) vaccine Chintan GRACIA [facility] 04-01-2021 influenza virus vacc ine, unspecified formulation Chintan [employer] [facility] Comment on above: Result Comment: 2022: VIS DATE: 01/11/2021 04-01-2021 Influenza, Quadv, adjuvanted, 65 yrs +, IM, PF (Fluad) [facility] [employer]um [facility] [employer] Work Phone: 03-05-2021 SARS-CoV-2 (COVID-19 ) mRNA BNT-162b2 vax Chintan [employer] [facility] Comment on above: Result Comment: 2022: [id number] 07-27-2020 COVID-19, Pfizer, PF , 30mcg/0.3mL Candace Giron COAL GRADER - PAPER GUILLOTINE OPERATOR Work Phone: [employer] Work Phone: 07-06-2020 SARS-CoV-2 (COVID-19 ) mRNA BNT-162u1 vax Ch[facility]anElevate Medical [facility] Comment on above: Result Comment: 2022: [id number] 03-26-2020 influenza virus vacc ine, unspecified formulation Chintan [employer] [facility] 04-12-2019 influenza virus vacc ine, unspecified formulation Chintan [employer] [facility] 09-08-2018 zoster vaccine recombinant [facility] [employer] 06-30-2018 zoster vaccine recombinant Candace [facility] 04-20-2018 influenza virus vacc ine, unspecified formulation Chintan GRACIA [facility] 04-20-2018 influenza, high dose seasonal, preservative-free Candace Giron [facility] 01-02-2016 pneumococcal conjuga te vaccine, 13 valent [place], [place] 05-10-2015 influenza virus vacc ine, unspecified formulation Chintan GRACIA [facility] 05-10-2015 influenza virus vacc ine, whole virus [facility], [place] 04-14-2014 pneumococcal conjuga te vaccine, 7 valent Candace [facility] 04-14-2014 pneumococcal polysaccharide vaccine, 23 valent Candace [facility] 12-14-2013 tetanus toxoid, redu siva diphtheria toxoid, and acellular pertussis vaccine, adsorbed [facility] 10-03-2013 zoster vaccine, live [place], [place] Payers Date Payer Category Payer Self-pay [id number] 2023 Managed Care (unspecified) [facility] [id number] 2023 Private Health Insurance [id number] 2023 Unknown [id number] 2014 Medicare MEDICARE LATASHAA D MEDICARE xxxxxxxxxxx 2014-Present [phone] [place] [address] xxxxxxxxxxx [id number] 2014 Unknown [employer] NATIONAL [id number] 2014-Present [address] [address] [place] [address] [id number]. [id number] 2014 Unknown [employer] [facility] [id number] 2014-Present [address] [address] [place] [address] [id number]. [id number] 2010 Medicare [id number]. 1.13.693.2. [id number] 1959 Medicare [id number] 1.2.840.193524.1.13.239.2. 7.3.140468.315 1959 Unknown [id number] 1.2.840.578133.1.13.239.2. 7.3.474582.315 1945 Unknown [id number] 2.16.840.1.931267.3.579.2. 647 1945 Unknown [id number] 2.16.840.1.315352.3.579.2. 593 1945 Unknown [id number] 2.16.840.1.552926.3.579.2. 1286 1945 Unknown [id number] 2.16.840.1.908864.3.579.2. 1286 1945 Unknown [id number] 2.16.840.1.487273.3.579.2. 1286 1945 Unknown [id number] 2.16.840.1.166905.3.579.2. 128 1945 Unknown [id number] 2.16.840.1.250126.3.579.2. 128 1945 Unknown [id number] 2.16.840.1.041950.3.579.2. 128 1945 Unknown [id number] 2.16.840.1.782234.3.579.2. 727 1945 Unknown [id number] 2.16.840.1.008655.3.579.2. 727 1945 Unknown [id number] 2.16.840.1.053746.3.579.2. 727 1945 Unknown [id number] 2.16.840.1.607657.3.579.2. 727 1945 Unknown [id number] 2.16.840.1.702927.3.579.2. 727 1945 Unknown [id number] 2.16.840.1.779120.3.579.2. 727 1945 Unknown [id number] 2.16.840.1.811366.3.579.2. 727 1945 Unknown [id number] 2.16.840.1.498547.3.579.2. 174 1945 Unknown [id number] 2.16.840.1.099068.3.579.2. 174 1945 Unknown [id number] 2.16.840.1.280812.3.579.2. 174 1945 Unknown [id number] 2.16.840.1.700485.3.579.2. 174 1945 Unknown [id number] 2.16.840.1.075599.3.579.2. 1259 1945 Unknown [id number] 2.16.840.1.290064.3.579.2. 1259 Medicare Medicare Outpatient [id number] Unknown Regular Insurance [id number] Unknown [id number] 2.16.840.1.213181.3.579.2. 531 Social History Date Type Detail Facility Start: 08-22-2019 End: 11-30-2024 Tobacco smoking status NHIS Former smoker [place] History of tobacco use Pipe Smoker [place] Start: 08-22-2019 End: 04-21-2022 Alcohol intake Current drinker of alcohol (finding) [place] Start: 08-22-2019 End: 11-11-2021 History SDOH Food Worry 1 [place] Start: 08-22-2019 End: 04-21-2022 History SDOH Transport Med 2 [place] Start: 11-11-2012 Alcohol Comment daily/wine [place], [place] Start: 1945 Sex Assigned At Not on file [place] Start: 10-22-2020 End: 04-07-2023 Tobacco use and exposure Never used [facility] Start: 10-22-2020 End: 01-26-2025 [facility] Start: 10-22-2020 End: 11-11-2021 History SDOH Financial 5 [facility] Phone: Tobacco smoking status Never [facility] Start: 05-16-2024 End: 01-26-2025 Sex Assigned At Male [facility] History of tobacco use Current smoker [facility] Work Phone: History of tobacco use Cigarette Smoker [facility] Work Phone: Start: 03-13-2020 End: 04-07-2023 Tobacco smoking status RIIS Never smoked tobacco (finding) [facility] Start: 1945 Sex Assigned At Male F [facility] Start: 04-21-2022 History SDOH Physica l Activity DPW 6 [employer] Work Phone: Start: 04-21-2022 History SDOH Physica l Activity MPS 4 [employer] Work Phone: History of tobacco use Passive smoker [email or web address] Start: 05-16-2024 End: 01-26-2025 Alcoholic beverage intake Ex-drinker (finding) [email or web address] How often to you hav e a drink containing alcohol? Monthly or less [email or web address] How many standard drinks containing alcohol do you have on a typical day? 1 or 2 [email or web address] How often do you hav e 6 or more drinks on 1 occasion? Less than monthly [email or web address] (I/We) worried biju er (my/our) food would run out before (I/we) got money to buy more. Never true [email or web address] Start: 04-07-2023 Alcoholic beverage intake Lifetime non-drinker (finding) [facility] Has the [employer], [employer], [employer], or water [employer] threatened to shut off services in your home in past 12Mo No [email or web address] Start: 07-18-2012 Sex Male (finding) [employer] [facility] consumption unknown [facility] History of tobacco use Cigar Smoker [facility] Start: 11-30-2024 Tobacco use and exposure Former smokeless tobacco user [facility] Start: 11-30-2024 Alcohol Comment no alcohol for 3 mon th [facility] Medical Equipment Procedure Code Equipment Code Equipment Origin al Text Equipment Identifier Dates Repair, hernia, inguinal, with mesh [id number] FDA Start: 03-13-2020 Repair, hernia, inguinal, with mesh [id number] FDA Start: 03-13-2020 Repair, hernia, inguinal, with mesh [id number] FDA Start: 03-13-2020 Goals Date Patient Goal Desired Activity /State Functional Status Date Assessment Result Facility 08-05-2024 Functional Status N/A [facility] 01-27-2024 Functional Status N/A [facility] 01-11-2024 Functional Status N/A [facility] [place] 12-31-2023 Functional Status N/A [facility] [place] 01-07-2023 Functional Status N/A [facility] 01-13-2022 Functional Status No [facility] Clinical Notes 06-30-2021 to 01-26-2025 Romero Salinas MD - 01/26/2025 3:20 PM EDTTelephone Encounter - Luz Elena Charles - 01/05/2025 3:06 PM EDTTelephone Encounter - Luz Elena Charles - 01/05/2025 3:06 PM EDT Note Date & Type Note Facility 01-26-2025 History of Present illness Narrative Images from [...] eat a lot of ice cream. Subjective Faith Penn is a 79 y.o. male who [...] persists. Seroquel was previously prescribed by Dr. Giron, but it did not yield any noticeable improvement. Namenda was also tried, but it resulted in headaches, a symptom he does not typically experience. These headaches subsided upon discontinuation of the medication. Currently, Aricept is taken once daily at bedtime, and Zyprexa is no longer part of his [...] with the irritability. If there is no improvement at 3 mg, the dosage will be further increased to 4 mg. Samples of the higher dose will be provided. 2. Memory issues. He is currently taking Aricept once a day at bedtime. The dosage of Aricept will be increased to twice daily to help with agitation. A prescription for the increased dosage will be sent to [facility] in [place]. 3. I will increase the donepezil (Aricept) 10 mg at bed and in the am to help treat memory loss and confusion It works by improving attention, memory, and [...] is impaired which can include weakness, poor proprioception, sensory deficits, vestibular dysfunction, neurological impairment, joint stiffness, pain, and decreased reaction time. PT can help with strength training, core stability for trunk control, balance exercises, gait training, neuromuscular re-education, fall recovery training, and provide help setting realistic goals. Such as improved walking speed, endurance, reduced fear of falling, better responses to unexpected perturbations such as tripping, improves mobility, and reduces fall risk. 3 This clinical note was created utilizing [employer] documentation system. All information has been thoroughly reviewed, corrected as necessary, and authenticated by the provider to ensure accuracy and completeness. On occasion, [employer]EE[employer] documentation system erroneously drops words or replaces a spoken word with a similar sounding word. Please notify with any questions or concerns regarding this clinical note. documented in this encounter [facility] 01-05-2025 Telephone encounter Note Pt called today and stated the pt only has enough REXULTI 2 mg medication to last to the 6th and his appt is on Jan 18. Pt received sample packs and the would like to come hot die picker another sample pack if possible [phone] [facility] 01-05-2025 Miscellaneous Notes Pt called today and stated the pt only has enough REXULTI 2 mg medication to last to the 6th and his appt is on Jan 18. Pt received sample packs and the would like to come hot die picker another sample pack if possible [phone] documented in this encounter [facility] 11-30-2024 History of Present illness Narrative Images from the original note were not included. CHIEF COMPLAINT REASON FOR VISIT : Transfer from [facility] HPI: MEMORY LOSS -accompanied by and daughter [...] Depression: Not at risk (08/15/2024) Received from [facility] PHQ-2 PHQ-9 Total Score: 0 REVIEW [...] 2+ 2+ Patellar 2+ 2+ Coordination Right: Vzejer-tu-ypms normal. Rapid alternating movement normal.Left: Biulrb-gu-lazo normal. Rapid alternating movement normal. Gait Casual [...] showed mild SVID and atrophy 2022 MMSE 17/30 10/08/2023 CTA of the head and neck [...] He had endarterectomy with vascular surgeon at [facility]. He had updated carotid ultrasound 10/2022 [...] behavioral disturbance (HCC) documented in this encounter [facility] 08-09-2024 Note [facility] Cardiology Clinic Note Chief Complaint: Patient here for 6 mo follow up hypertension, aortic valve regurgitation, and carotid artery stenosis s/p CEA in Jun 2021. Had echo in November 2023 after last apt, prior to right CEA with Dr. Garcia in December. He was seen as inpatient consult by cardiology for suspicion of heart block. This was ruled out by [facility] cardiology team. Had routine labs with lipid [...] Carotid artery stenosis, Hyperlipidemia, Hypertension, and Stroke ([facility]). Surgical History He has a past surgical [...] No leaflet thic (more content not included)... [facility] 08-05-2024 Hospital Discharge instructions Patient Education 08/05/2024 [...] urethra. Follow these instructions at home: Take bhhs-fvc-dbgivwo and prescription medicines only as told by [...] provider. Document Revised: 12/11/2021 Document Reviewed: 12/11/2021 [employer] Patient Education 2023 [employer] Follow Up Care 07/14/2024 10:18:41 With:DHAVAL Ragsdale APRN, ELIEZER Giraldo, URL Address: When: Unknown [facility] 08-05-2024 Note Patient Education Urology [...] Follow these instructions at home: ??? Take qtvk-iyi-hkougfy and prescription medicines only as told by [...] do not get (more content not included)... [facility] 07-11-2024 Telephone encounter Note Spoke with Ana at PCP office. She states that PCP did not start med however she did make and adjustment due to pts behaviors. She states that we are to con't medication. [facility] 07-11-2024 Miscellaneous Notes Spoke with Ana [...] called on this? documented in this encounter [facility] 07-11-2024 Telephone encounter Note I see that there was a follow up question in the last task but it was signed? Not sure if the PCP was ever called on this? [facility] 06-14-2024 Telephone encounter Note I reviewed [...] going through a lot right now, thanks! [facility] 06-14-2024 Miscellaneous Notes I reviewed his [...] Seen last August documented in this encounter [facility] 06-14-2024 Telephone encounter Note LMTCB x 3. Sending letter. Would you like to fill this medication? Please advise. [facility] 06-13-2024 Telephone encounter Note LMTCB x 2 [facility] 06-09-2024 Telephone encounter Note LMTCB X 1 [facility] 06-09-2024 Telephone encounter Note Patient needs an appt before we can send refills. Seen last August [facility] 01-27-2024 Hospital Discharge instructions Patient Education 01/27/2024 [...] Follow these instructions at home: Medicines Take eajj-yom-kvncrce and prescription medicines only as told by [...] provider. Document Revised: 01/01/2022 Document Reviewed: 01/01/2022 [employer] Patient Education 2022 [employer] Follow Up Care 01/07/2023 11:09:00 With:KATHY HILL, Chintan Mo, URL Address: [address] [id number]- When: Unknown [facility] 01-27-2024 Note Patient Education Urology [...] these instructions at home: Medicines ? Take rzaa-hnh-mwjigfl and prescription medicines only as told by [...] fluid to keep (more content not included)... [facility] 01-11-2024 Hospital Discharge instructions Patient Education 01/11/2024 [...] that it is safe. General instructions Take fxed-ieo-slczlsp and prescription medicines only as told by [...] provider. Document Revised: 01/22/2021 Document Reviewed: 01/22/2021 [employer] Patient Education 2022 [employer]. 01/11/2024 11:38:16 Benign Prostatic Hyperplasia Benign Prostatic [...] urethra. Follow these instructions at home: Take isah-qhy-mmdqyxk and prescription medicines only as told by [...] provider. Document Revised: 12/11/2021 Document Reviewed: 12/11/2021 [employer] Patient Education 2022 [employer]. Follow Up Care 01/11/2024 08:12:05 With:DHAVAL Ragsdale APRN, ELIEZER Giraldo, URL Address: When: Unknown Comments:Pt to keep follow up on 01/27/24 w/Dr. Gracia [facility] 01-11-2024 Note Patient Education Urology Scrotal [...] it is safe. General instructions ? Take yatu-qhj-ddywpyw and prescription medicines only as told by [...] provider. Document Revised: 01/22/2021 Document Reviewed: 01/22/2021 [employer] Patient Education ? 2022 [employer]. Benign Prostatic Hyperplasia Benign prostatic hyperplasia (BPH) [...] urine flow wi (more content not included)... [facility] 12-31-2023 Hospital Discharge instructions Patient Education 12/31/2023 [...] urethra. Follow these instructions at home: Take eedg-fte-zfzhtfm and prescription medicines only as told by [...] away. Do not drive yourself to [facility]. Summary Benign prostatic hyperplasia (BPH) is an [...] provider. Document Revised: 12/11/2021 Document Reviewed: 12/11/2021 [employer] Patient Education 2022 [employer]. Follow Up Care 12/31/2023 08:38:06 With:KATHY HILL, Chintan Mo, URL Address: [facility] [employer] [address] [place], [place] [id number] When: Unknown Comments:Appointment has already been scheduled [facility] [place] 12-31-2023 Note Patient Education Urology Benign [...] Follow these instructions at home: ? Take vfcf-fym-mlgqynw and prescription medicines only as told by [...] develop side effec (more content not included)... [facility] 11-16-2023 Note [facility] Cardiology Clinic Note Chief Complaint: Patient here for follow up [facility] for TIA, and was started on Plavix. He is also requesting clearance for surgery with Dr. Garcia. He will be scheduled for right carotid endarterectomy. says BP was >200 systolic while inpatient at [facility]. She says his BP is elevated [...] as scheduled Re (more content not included)... [facility] 01-07-2023 Hospital Discharge instructions Patient Education [...] urethra. Follow these instructions at home: Take trjq-fba-xgdekjt and prescription medicines only as told by [...] provider. Document Revised: 12/11/2021 Document Reviewed: 12/11/2021 [employer] Patient Education 2022 [employer]. Follow Up Care 01/13/2022 10:26:06 With:KATHY HILL, Chintan Mo, URL Address: [facility] [employer] [address] [id number]- When: Unknown [facility] 08-25-2022 Hospital Discharge instructions Patient [...] urethra. Follow these instructions at home: Take ndbr-ked-qprloom and prescription medicines only as told by [...] 05/25/2006 Document Revised: 04/19/2019 Document Reviewed: 06/29/2017 [employer] Patient Education 2020 [employer]. Follow Up Care 08/18/2022 10:34:03 With:KATHY HILL, Chintan Mo, URL Address: [facility] [employer] [address] [place], [place] [phone]- When: Unknown [facility] 04-15-2022 Procedure note [facility] 01-13-2022 Hospital Discharge instructions Patient Education 01/13/2022 [...] Follow these instructions at home: Medicines Take zwot-atk-ybojjym and prescription medicines only as told by [...] 05/22/2001 Document Revised: 05/07/2018 Document Reviewed: 06/10/2017 [employer] Patient Education 2020 [employer]. Follow Up Care 01/14/2021 08:36:30 With:KATHY HILL, Chintan Mo, URL Address: [address] [place], [place] [id number]- When:Within 1 Year(s) [facility] 06-30-2021 Note MR#: [id number] I [facility] Pt. Name: Faith Penn Admitted: 06/25/2021 Discharged: [...] me. Date Dict: 06/30/2021/12:45 P/Luna Salinas M.S., PAPER GUILLOTINE OPERATOR Date Trans: 06/30/2021 08:59 P/bingo [id number] [facility] Evaluation + Plan note Future Appointments Appointment Date:01/14/2023 08:45:00 AM Scheduled Provider:Chintan GRACIA MD Location:[facility] Appointment Type:URO Office Visit [facility] Evaluation + Plan note Future Appointments Appointment Date:01/07/2023 10:15:00 AM Scheduled Provider:Chintan GRACIA MD Location:[facility] Appointment Type:URO Office Visit [facility] Evaluation + Plan note Future Appointments Appointment Date:01/27/2024 10:30:00 AM Scheduled Provider:Chintan GRACIA MD Location:[facility] Appointment Type:URO Office Visit [facility] Evaluation + Plan note Future Appointments Appointment Date:01/06/2024 08:30:00 AM Scheduled Provider: Location:[facility] Appointment Type:URO Nurse Visit Appointment Date:01/27/2024 10:30:00 AM Scheduled Provider:Chint[facility]AC[facility] Office Visit [facility] Evaluation + Plan note Future Appointments Appointment Date:08/04/2025 09:00:00 AM Scheduled Provider:DHAVAL Ragsdale APRN, [place] X Location:[facility] Appointment Type:URO Office Visit [facility] Evaluation note Diagnosis Prostate cancer screening Special screening for malignant neoplasm of prostate Mixed hyperlipidemia Essential hypertension Unspecified essential hypertension Thyroid disorder screening Screening for thyroid disorder documented in this encounter [employer] Phone: evaluation note* Diagnosis Dizziness Dizziness and giddiness Mild alcohol use disorder, in controlled environment Bilateral carotid artery stenosis Occlusion and stenosis of multiple and bilateral precerebral arteries without mention of cerebral infarction Short-term memory loss Memory loss documented in this encounter [employer] Phone: evaluation note* Diagnosis Fall, initial encounter Acute midline low back pain without sciatica documented in this encounter [employer] Phone: [email or web address] note* Diagnosis Fall, initial encounter documented in this encounter [employer] Phone: [email or web address] noteNo assessment information available [facility] Work Phone: Evaluation note* Diagnosis Onset Date Resolution Status Positive colorectal cancer s creening using Cologuard test acute [facility] Work Phone: Evaluation note* Diagnosis Mixed hyperlipidemia Bilateral carotid artery stenosis Occlusion and stenosis of multiple and bilateral precerebral arteries without mention of cerebral infarction Essential hypertension Unspecified essential hypertension History of alcoholism (HCC) Personal history of alcoholism Primary hypertension Unspecified essential hypertension documented in this encounter [employer] Phone: [email or web address] note* Diagnosis Mixed hyperlipidemia Mild cognitive impairment Mild cognitive impairment, so stated IFG (impaired fasting glucose) Impaired fasting glucose Primary hypertension Unspecified essential hypertension Prostate cancer screening Special screening for malignant neoplasm of prostate documented in this encounter [employer] note* Diagnosis Other amnesia [facility] Diagnosis Other amnesia [facility]* Diagnosis Moderate vascular dementia with agitation (HCC) Acquired hypothyroidism Unspecified hypothyroidism Primary hypertension Unspecified essential hypertension Outbursts of explosive behavior Other general symptoms Mixed hyperlipidemia Dysuria documented in this encounter [id number] note* Diagnosis Behavioral and psychological symptoms of dementia (HCC)- Primary Mild cognitive impairment Mild cognitive impairment, so stated Major depressive disorder, recurrent, moderate (HCC) Major depressive disorder, recurrent episode, moderate [facility] Diagnosis 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 -Office number [phone] Work Phone: Progress note No data available for this section [facility] Reason for Referral Status Reason Specialty Diagnoses / Procedures Re ferred By Contact Referred To Contact Open Cardiology Diagnoses Dizziness Essential hypertension Pure hypercholesterolemia Procedures EKG 12 Lead Candace Giron, COAL GRADER - PAPER GUILLOTINE OPERATOR [address] [place] [address] Status Reason Specialty Diagnoses / Procedures Referre d By Contact Referred To Contact Open EKG Diagnoses Dizziness Procedures Holter Monitor 48 Hour HC HOLTER MONITOR Candace Giron, COAL GRADER - PAPER GUILLOTINE OPERATOR [address] [place] [address] Mthz Ekg [address] [id number] Status Reason Specialty Diagnoses / Procedures Referre d By Contact Referred To Contact Open Diagnoses Dizziness Essential hypertension Procedures VL DUP CAROTID BILATERAL HC EXTRACRANIAL BILAT STUDY Candace Giron COAL GRADER - PAPER GUILLOTINE OPERATOR [address] [place] [address] Status Reason Specialty Diagnoses / Procedures Referre d By Contact Referred To Contact Closed Radiology Diagnoses Dizziness Mild alcohol use disorder, in controlled environment Bilateral carotid artery stenosis Short-term memory loss Procedures MRI BRAIN WO CONTRAST Candace Giron, COAL GRADER - PAPER GUILLOTINE OPERATOR [address] [id number] Assessments Diagnosis Dizziness Dizziness and giddiness Essential [...] FoundDocuments on File Type Date Recorded Patient Bait Packer Expl anation Advance Directives and Living Will Power of Wastewater Treatment Plant Operator Documents on File Type Date Recorded Patient Bait Packer Expl anation Advance Directives and Living Will Power of Wastewater Treatment Plant Operator Documents on File Type Date Recorded Patient Bait Packer Expl anation ACP-Advance Directive ACP-Power of Wastewater Treatment Plant Operator Healthcare Agents on File Name Relationship Healthcare Agent Relationshi p Communication Ashleigh Penn Spouse Primary Decision Maker Documents on File Type Date Recorded Patient Bait Packer Expl anation ACP-Advance Directive ACP-Power of Wastewater Treatment Plant Operator Healthcare Agents on File Name Relationship Healthcare [...] Documents on File Type Date Recorded Patient Bait Packer Expl anation ACP-Do Not Resuscitate 04/21/2022 9:41 [...] 48 Hour HC HOLTER MONITOR Candace Giron, COAL GRADER - PAPER GUILLOTINE OPERATOR [address] [place] [address] [facility] [address] [place] [address] Status Reason Specialty Diagnoses / Procedures Referre d By Contact Referred To Contact Open Diagnoses Dizziness Essential hypertension Procedures VL DUP CAROTID BILATERAL HC EXTRACRANIAL BILAT STUDY Candace Giron, COAL GRADER - PAPER GUILLOTINE OPERATOR [address] [place] [address] Status Reason Specialty Diagnoses / Procedures Referre d By Contact Referred To Contact Closed Radiology Diagnoses Dizziness Mild alcohol use disorder, in controlled environment Bilateral carotid artery stenosis Short-term memory loss Procedures MRI BRAIN WO CONTRAST Candace Giron, COAL GRADER - PAPER GUILLOTINE OPERATOR [address] [place] [address] Reason Comments Med Refill (unrecognized sect ion and content) No Status Records FoundNo Status Records FoundNo Status Records FoundNo Status Records FoundNo Status Records FoundNo Status Records FoundNo Status Records FoundNo Status Records FoundNo Status Records FoundNo Status Records Found INFORMATION SOURCE (unrecogn ized section and content) DATE CREATED AUTHOR 07/15/2021 [facility] dical Specialist DATE CREATED AUTHOR AUTHOR'S ORGANIZ ATION 07/24/[address] [facility] DATE CREATED AUTHOR AUTHOR'S ORGANIZ ATION 08/14/2022 [facility] DATE CREATED AUTHOR AUTHOR'S ORGANIZ ATION 11/17/2023 [facility] DATE CREATED AUTHOR AUTHOR'S ORGANIZ ATION 12/31/2023 [facility] DATE CREATED AUTHOR AUTHOR'S ORGANIZ ATION 01/01/2024 [facility] DATE CREATED AUTHOR AUTHOR'S ORGANIZ ATION 08/08/2024 [facility] DATE CREATED AUTHOR AUTHOR'S ORGANIZ ATION 08/11/2024 [facility] DATE CREATED AUTHOR AUTHOR'S ORGANIZ ATION 08/19/2024 [facility] DATE CREATED AUTHOR AUTHOR'S ORGANIZ ATION 01/28/2025 [facility] dical Specialists [employer] Care Teams (unrecognized sec tion and content) Team Status: Active Member Role Status Dates Candace Giron APRN SURGICAL PHYSICIAN ASSISTANT-C Primary Care Provider Active Team Status: Inactive Member Role Status Dates Candace Giron APRN SURGICAL PHYSICIAN ASSISTANT-C Primary Care Provider Active Leonides Velasquez DO Emergency Provider Active Lehr Stripper Relationship Specialty Start Date End Date Candace Giron, COAL GRADER - PAPER GUILLOTINE OPERATOR [address] [place] [address] PCP - General 01/09/16 Lehr Stripper Relationship Specialty Start Date End Date Flora Gironrandal Medina, COAL GRADER - PAPER GUILLOTINE OPERATOR [address] [place] [address] PCP - General 01/09/16 Lehr Stripper Relationship Specialty Start Date End Date Bree Candace M, COAL GRADER - PAPER GUILLOTINE OPERATOR [address] [place] [address] PCP - General 01/09/16 Team Status: Inactive Member Role Status Dates Candace Giron APRN SURGICAL PHYSICIAN ASSISTANT-C Primary Care Provider Active Christiano Ravi MD Attending Provider Active Lehr Stripper Relationship Specialty Start Date End Date Bree Candace M, COAL GRADER - PAPER GUILLOTINE OPERATOR [address] [place] [address] PCP - General 01/09/16 Lehr Stripper Relationship Specialty Start Date End Date Bree Candace M, COAL GRADER - PAPER [place] [address] PCP - General 01/09/16 Lehr Stripper Relationship Specialty Start Date End Date Olimpia Middleton MD [address] [phone] PCP - General Family Medicine 04/07/23 Candace Giron NP [address] [place] [phone] Referring Physician Family Medicine 04/07/23 Lehr Stripper Relationship Specialty Start Date End Date Olimpia Middleton MD [address] [place], [place] [phone] PCP - General Family Medicine 04/07/23 Candace Giron SURGICAL PHYSICIAN ASSISTANT [address] [place] [phone] Referring Physician Family Medicine 04/07/23 Lehr Stripper Relationship Specialty Start Date End Date Candace Giron, COAL GRADER - PAPER GUILLOTINE OPERATOR [address] [place] [address] PCP - General 01/09/16 Lehr Stripper Relationship Specialty Start Date End Date Olimpia Middleton MD [address] [place], [place] [phone] PCP - General Family Medicine 04/07/23 Candace Giron SURGICAL PHYSICIAN ASSISTANT [address] [place] [phone] Referring Physician Family Medicine 04/07/23 Lehr Stripper Relationship Specialty Start Date End Date Olimpia Middleton MD [address] [address] [place], [place] [id number] PCP - General Family Medicine 04/07/23 Candace Giron SURGICAL PHYSICIAN ASSISTANT [address] [place] [address] Referring Physician Family Medicine 04/07/23 Lehr Stripper Relationship Specialty Start Date End Date Olimpia Middleton MD [address] [place] [phone] PCP - General Family Medicine 04/07/23 Candace Giron SURGICAL PHYSICIAN ASSISTANT [address] [place] [address] Referring Physician Family Medicine 04/07/23 Lehr Stripper Relationship Specialty Start Date End Date Olimpia Middleton MD [address] [place], [place] [phone] PCP - General Family Medicine 04/07/23 Candace Giron NP [address] [place] [address] Referring Physician Family Medicine 04/07/23 Goals (unrecognized [...] BE BASED ON THE PRIMARY CLINICAL RECORDS. [facility]. provides no warranty or guarantee of the accuracy or completeness of information in this document.
== END 2025-01-31 08:09 | disposition home or self-care (01) ==
LOC: CARD 08:08
PROVIDERS: PCP Nurse Practitioner Primary Care; Visit Provider Internal Medicine Interventional Cardiology
DX: I35.9 Nonrheumatic aortic valve disorder, unspecified (principal); I35.0 Nonrheumatic aortic (valve) stenosis
CPT/HCPCS: 93306

== ENCOUNTER 2025-04-07 16:04 | Emergency (ER) | payer MEDICARE, OTHER, SELFPAY ==
--- OUTSIDE RECORDS SUMMARY | 2025-04-03 23:59 | XMS_ITS | Continuity of Care Document ---
Author Organization [facility] Address Unknown Care Team Providers Care Supervisor Reclamation Name Role Phone CANDACE GIRON Primary Care Physician Encounter FT_FIN [id number] Date(s): 04/03/25 - 04/03/[address] [address]- [place] Discharge Disposition: Home (Routine DC) Attending Physician: Ted Putnam DO Admitting Physician: Ted Putnam DO Referring Physician: Ted Putnam DO Encounter Type: Outpatient Allergies, Adverse Reactions, Alerts SubstanceCriticalitySeverityReactionReaction SeverityStatusibuprofenHYPERTENSION Active Assessment and Plan Future Appointments Appointment Date:04/13/2025 07:30:00 AM Scheduled Provider: Location:[facility] Appointment Type:Surgery FT Appointment Date:05/11/2025 07:30:00 AM Scheduled Provider: Location:[facility] Appointment Type:Surgery FT Appointment Date:08/04/2025 09:00:00 AM Scheduled Provider:DHAVAL Ragsdale APRN, [place] X Location:[facility] Appointment Type:URO Office Visit Immunizations Given and Recorded VaccineDateStatusRefusal Reasoninfluenza virus vaccine, /15/24 Recordedinfluenza virus vaccine, vyefiahfksr252/31/23Recordedinfluenza virus vaccine, szkkobnyuoi35/20/22Recordedinfluenza virus vaccine, inactivated2 04/01/21Recordedinfluenza virus vaccine, tsftyqjrlny44/19/20Recordedinfluenza virus vaccine, zhfollygrlf42/5/19Recordedinfluenza virus vaccine, inactivated 04/20/18Recordedinfluenza virus vaccine, giyryhqrirg50//15Recordedpneumococcal 23-valent rkasrtc728//94JrjakbgqBCPD-QbR-6 (COVID-19) mRNAMUL.ORD!c15481 03/27/2271WaiszasxFGBRDpZ8 mRNA(dupvwuubd-xdxi-ttzpat) vac12/27/21Recorded SARS-CoV-2 (COVID-19) mRNA BNT-162b2 vax49/83KhhqdwxvPTZM-MbV-4 (COVID-19) mRNA BNT-162b2 vax2//78OzypufyiTCMB-PcD-6 (COVID-19) mRNA BNT-162b2 vax5 07/06/20Recordedzoster vaccine, inactivated09/08/18Recordedzoster vaccine, inactivated06/30/18Recordedpneumococcal 13-valent vaccine01/02/16Recorded diphtheria/pertussis, acel/tetanus adult12/14/13Recordedzoster vaccine live10/03/13 Recorded 1Result Comment: 2024-01-11: VIS DATE: 01/11/2021 2Result Comment: 2023-01-07: VIS DATE: 01/11/2021 3Result Comment: 2023-01-07: VIS DATE: 04/06/2019 4Result Comment: 2023-01-07: TPV75 5Result Comment: 2023-01-07: TPV75 Medications aspirin 81 mg Oral EC Tab 81 mg = 1 tab(s), Oral, Daily, Refills(s) 0, Blood Thinner Start Date: 01/13/22 Status: Ordered Repeat number: 1 brexpiprazole 4 mg oral tablet 4 mg = 1 tab(s), Oral, Daily, Refills(s) 0, Anxiety Start Date: 04/03/25 Status: Ordered Repeat number: 1 donepezil 5 mg Tab 5 mg = 1 tab(s), Oral, BID Start Date: 12/31/23 Status: Ordered Repeat number: 1 Flomax 0.4 mg Cap 0.4 mg = 1 cap(s), Oral, Daily, # 90 cap(s), Refills(s) 3, Pharmacy: [id number], 185, cm,08/05/24 14:31:00 EST, Height/Length Dosing, 84, kg, 08/05/24 14:31:00 EST, Weight Dosing Start Date: 10/12/24 Status: Ordered Quantity: 90.0 Unit: cap(s) Repeat number: 4 levothyroxine 50 mcg (0.05 mg) Tab 50 mcg = 1 tab(s), Oral, Daily, Refills(s) 0, Thyroid Start Date: 12/31/23 Status: Ordered Repeat number: 1 losartan 25 mg Tab 25 mg = 1 tab(s), Oral, Daily, Refills(s) 0, High blood pressure Start Date: 09/22/22 Status: Ordered Repeat number: 1 scopolamine 1 mg/72 hr transdermal film, extended release 1 patch(es), TransDermal, q72hr, Refill(s) 0 Start Date: 04/03/25 Status: Ordered Repeat number: 1 sildenafil 100 mg Tab 100 mg = 1 tab(s), Oral, Daily, PRN for erectile dysfunction, 1 hour before sexual activity, # 20 tab(s), Refills(s) 3, Pharmacy: [id number], 185, cm, 01/07/23 10:35:00 EDT, Height/Length Dosing, 80.1, kg, 01/07/23 10:35:00 EDT, Weight Dosing Start Date: 01/07/23 Status: Ordered Quantity: 20.0 Unit: tab(s) Repeat number: 4 simvastatin 40 mg Tab 40 mg = 1 tab(s), Oral, Refills(s) 0, High cholesterol Start Date: 01/14/21 Status: Ordered Repeat number: 1 traZODONE 50 mg Tab 50 mg = 1 tab(s), Oral, BID, # 15 tab(s), Refills(s) 0, Anxiety Start Date: 04/03/25 Status: Ordered Quantity: 15.0 Unit: tab(s) Repeat number: 1 Problem List ConditionConfirmationCourseEffective DatesStatusHealth StatusInformantAlzheimers diseaseConfirmedActiveArthritisConfirmedResolvedBPH with obstruction/lower urinary tract symptomsConfirmedActiveBMI 24.0-24.9, adultConfirmedActiveDementia ConfirmedActiveHydroceleConfirmedActivePharyngoesophageal dysphagiaConfirmed ActiveEpididymitisConfirmedActiveErectile dysfunctionConfirmedResolvedFormer smokerConfirmedActiveGross hematuriaConfirmedActiveHyperlipidemiaConfirmed ResolvedHypertensionConfirmedResolvedHTN (hypertension)ConfirmedActiveImpotence ConfirmedActiveNocturiaConfirmedActiveWeak urinary streamConfirmedActiveTIA (transient ischemic attack)ConfirmedActiveFoley catheter statusConfirmedResolved Procedures ProcedureDateRelated DiagnosisBody SiteStatusCarotid endarterectomy X212/29/23 CompletedTransurethral water vapor ablation of prostate09/02/18Completed Cystoscopy08/05/18CompletedColonoscopyCompletedEXCISION Bursa OF ELBOWCompleted History of repair of inguinal herniaCompletedTonsillectomy AND ADENOIDECTOMY Completed Social History Social History TypeResponseSmoking StatusFormer smoker, quit more than 30 days ago;Never; Type: Cigarettes; Concerns about tobacco use in household: No entered on: 08/05/24Birth SexMaleSex RepresentationMale (finding) Patient Care team information Care Team Personnel Name: CANDACE GIRON CNP Member Role: Primary Care Physician Address: [facility] [address] Telecom: [phone] Care Team Related Persons Name: FOZIA OLIVIER Name: FOZIA OLIVIER Insurance Providers Guarantor name: FAITH OLIVIER Health Plan Information #: 1 Payer: MEDICARE Payer Identifier: [id number] Member Number: [id number] Group Number: [id number] Subscriber Identifier: [id number] Relationship to Subscriber: self Coverage Type: MEDICARE Coverage Verification Date: 25 Telecom: [phone] Address: [address] [address] [place] [address] Health Plan Information #: 2 Payer: [employer] Payer Identifier: [id number] Member Number: [id number] Group Number: [id number] Subscriber Identifier: [id number] Relationship to Subscriber: self Coverage Type: PRIVATE HEALTH INSURANCE Coverage Verification Date: 25 Telecom: NA Address: [facility] [address] [place] [id number]
[2025-04-07 16:13] VITALS: BP 142/66; PULSE 77; TEMP 36.6; O2SAT 100; BMI 22.4
--- NOTE | 2025-04-07 16:41 | CT_ITS ---
The [address] [address] Patient Name: FAITH OLIVIER MRN: [id number] date: 1945 Sex: M Assigned Patient Location: ER Current Patient Location: .[facility] Accession/Order Number: [id number] Exam Date: 04/07/2025 16:25 Report Date: 04/07/2025 17:10 At the request of: DHARA POWELL MD Procedure: CT cervical spine wo con CT CERVICAL SPINE WITHOUT CONTRAST WITH 3D RECONSTRUCTIONS: CLINICAL HISTORY: fall COMPARISON: None TECHNIQUE: Spiral axial unenhanced images were obtained through the cervical spine. Sagittal, coronal and 3D volume-rendered reconstructions were also reviewed. This CT exam was performed using one or more following dose reduction techniques: Automated exposure control, adjustment of the mA and/or kV according to patient size, or use of iterative reconstruction technique. FINDINGS: Cervical vertebral heights maintained. There is minimal retrolisthesis C4 on C5 2 mm. Interbody ankylosis C3-4 noted. Otherwise rqxi-zc-cdygnqww multilevel disc space narrowing. Moderate multilevel facet arthropathy. No evidence of acute fracture or malalignment. No prevertebral soft tissue swelling. There are surgical clips identified along both carotid sheaths. Lung apices are clear. CT/CT cervical spine wo con IMPRESSION: NO CERVICAL SPINE FRACTURE MULTILEVEL DEGENERATIVE CHANGE. Impression dictated by: Jered Cai M.D. 04/07/2025 5:10 PM Dictation Location: [place] [address] Electronically authenticated by: [id number] Y Date: 04/07/2025 17:10
--- NOTE | 2025-04-07 16:41 | CT_ITS ---
The [address] [address] Patient Name: FAITH OLIVIER MRN: [id number] date: 1945 Sex: M Assigned Patient Location: ER Current Patient Location: [facility] Accession/Order Number: [id number] Exam Date: 04/07/2025 16:25 Report Date: 04/07/2025 17:18 At the request of: DHARA POWELL MD Procedure: CT lumbar spine wo con CT lumbar spine wo con 04/07/2025 4:41 PM History:Fall TECHNIQUE: Multi detector CT axial slices of the lumbar spine were obtained without IV contrast. Volumetric acquisition sagittal, coronal, and 3-D reconstructions were performed and reviewed on a separate workstation. CT was performed with one or more of the following dose reduction techniques: Automated exposure control, adjustment of the mA and/or kV according to patient size, or use of iterative reconstruction technique. COMPARISON: None FINDINGS: Lumbar vertebral heights are maintained without evidence of acute fracture or desiccation. Mild disc space narrowing L1-L5. Moderate severe disc space narrowing at L5-S1. L1-L2: Broad-based disc bulge with facet arthropathy. Minimal foraminal narrowing. L2-3: Broad-based disc bulge with facet arthropathy. Mild canal and mild right moderate left neural from narrowing. L3-4: Circumferential bulge with moderate canal and at least moderate bilateral neural foraminal narrowing. L5-S1: Circumferential disc bulge asymmetric towards the right with moderate severe central canal and subarticular recess narrowing. Possible right foraminal zone protrusion with severe right foraminal narrowing suspected. Moderate to severe left foraminal narrowing. L5-S1: Diffuse disc osteophyte complex. Mild to moderate foraminal narrowing. Canal grossly patent. CT/CT lumbar spine wo con IMPRESSION: No acute bony abnormality or malalignment. Multilevel degenerative changes greatest in the right at L4-5. Correlate with possible right L4 radiculopathy. Impression dictated by: Jered Cai M.D. 04/07/2025 5:18 PM Dictation Location: [place] [address] Electronically authenticated by: [id number] Y Date: 04/07/2025 17:18
--- NOTE | 2025-04-07 16:41 | CT_ITS ---
The [address] [address] Patient Name: FAITH OLIVIER MRN: [id number] date: 1945 Sex: M Assigned Patient Location: ER Current Patient Location: .MAIN Accession/Order Number: [id number] Exam Date: 04/07/2025 16:25 Report Date: 04/07/2025 17:08 At the request of: DHARA POWELL MD Procedure: CT head/brain wo con CT BRAIN WITHOUT CONTRAST: CLINICAL HISTORY: fall COMPARISON: MRI brain 10/31/2023, CT head 10/29/2024 TECHNIQUE: Contiguous axial unenhanced images were obtained through the brain. This CT exam was performed using one or more following dose reduction techniques: Automated exposure control, adjustment of the mA and/or kV according to patient size, or use of iterative reconstruction technique. FINDINGS: There is no evidence of midline shift, intra or extra-axial fluid collection, hemorrhage or CT evidence of of acute large vascular distribution stroke. Central involutional changes and chronic small vessel ischemic disease. Visualized intraorbital contents appear unremarkable. Visualized paranasal sinuses are clear. Stable left occipital bone defects with extension into the inner table. CT/CT head/brain wo con IMPRESSION: NO ACUTE INTRACRANIAL ABNORMALITY. Chronic microvascular changes. Impression dictated by: Jered Cai M.D. 04/07/2025 5:08 PM Dictation Location: [place] [address] Electronically authenticated by: [id number] Y Date: 04/07/2025 17:08
--- NOTE | 2025-04-07 16:41 | CT_ITS ---
[address] [address] Patient Name: FAITH OLIVIER MRN: [id number] date: 1945 Sex: M Assigned Patient Location: ER Current Patient Location: ED.MAIN Accession/Order Number: [id number] Exam Date: 04/07/2025 16:25 Report Date: 04/07/2025 17:14 At the request of: DHARA POWELL MD Procedure: CT chest wo con CT CHEST WITHOUT IV CONTRAST: CLINICAL HISTORY: fall COMPARISON: Chest x-ray 10/30/2023 TECHNIQUE: Spiral images were obtained through the chest without IV contrast. This CT exam was performed using one or more following dose reduction techniques: Automated exposure control, adjustment of the mA and/or kV according to patient size, or use of iterative reconstruction technique. FINDINGS: Mediastinum:Cardiomegaly with triple vessel coronary artery calcifications. No pericardial effusion. Moderate plaque identified involving the nonaneurysmal aorta. No bulky mediastinal or hilar adenopathy. Lungs:Minimal hypoventilatory changes. No effusion or pneumothorax. Abd:[] Noncontributory Soft tissues/Bones: []Evidence of left-sided sixth through seventh posterior lateral rib fractures. Multilevel degenerative changes mid to lower thoracic spine. No thoracic compression fracture. CT/CT chest wo con IMPRESSION: Left sixth and seventh posterior lateral rib fractures. Cardiomegaly with coronary artery disease.. Negative for acute pleural or parenchymal disease. Impression dictated by: Jered Cai M.D. 04/07/2025 5:14 PM Dictation Location: [place] [address] Electronically authenticated by: [id number] Y Date: 04/07/2025 17:14
--- OUTSIDE RECORDS SUMMARY | 2025-04-07 16:41 | XMS_ITS | Encounter Summary ---
Author Organization [facility] Address [address] [place] [address] Care Team Providers Care Corporate Real Estate Manager Name Role Phone Gini Burleson MD Primary Care Provider [phone] Encounter Details DateTypeDepartmentCare Team (Latest Contact Info)Cmolgwlwolk22/28/2025Telephone [facility] [address] [place] [address] Mary Grace Smith MA Social History Tobacco UseTypesPacks/DayYears UsedDateSmoking Tobacco: Never AssessedUT Safety & EnvironmentAnswerDate RecordedFear of Current or Ex-PartnerNot on file 07/30/2023Emotionally AbusedNot on file07/30/2023hysically AbusedNot on file 07/30/2023Sexually AbusedNot on file07/30/2023hysically or Sexually AbusedNot on file07/30/2023Sex and Gender InformationValueDate RecordedSex Assigned at BirthNot on fileLegal LvsWyja1912/04/2021 11:59 PM EDTGender IdentityNot on file Sexual OrientationNot on filedocumented as of this encounter Miscellaneous Notes * Telephone Encounter - Mary Grace Smith MA - 04/04/2025 12:30 PM EDT Spoke with patient's and informed her no afib per Dr. Cintron. Apt with Dr. Jean was canceled. I told Mrs. Penn to contact our office if anything changes. She verbalized understanding. * Telephone Encounter - Mary Grace Smith MA - 04/04/2025 11:46 AM EDT Patient's just stopped by the office to make you aware that he had a pre-op EKG yesterday. They were told it showed afib. I have scanned it into sr. media manager for your review. Can you please review and give recommendations? Thanks! documented in this encounter Plan of Treatment Not on file documented as of this encounter Visit Diagnoses Not on filedocumented in this encounter Care Teams Team MemberRelationshipSpecialtyStart DateEnd Date Gini Burleson MD [address] [place] [phone] PCP - General07/09/22documented as of this encounter
--- OUTSIDE RECORDS SUMMARY | 2025-04-07 16:41 | XMS_ITS | Clinical Summary ---
Author Organization [employer] [facility] tem Address [id number] [address] 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 Name Role Phone Sarah BethGini Carol [facility] Primary Care Provider [phone] Allergies Active AllergyReactionsCriticalityNoted DateCommentsIbuprofenhypertension,Other (See Comments)07/17/2020 Other Reaction(s): HYPERTENSION, increases BP Other reaction(s): HYPERTENSION Other reaction(s): HYPERTENSION Other Reaction(s): HYPERTENSION, increases BP Other reaction(s): HYPERTENSION QfpeyxltcRvqkozmw02/27/2024Nsaids (Non-Steroidal Anti-Inflammatory Drug) 02/28/2014 Elevates blood pressure Medications MedicationSigDispense QuantityRefillsLast FilledStart DateEnd DateStatus FLUoxetine (PROzac) 20 mg capsule Indications:generalized anxiety disorderTake 1 capsule (20 mg total) by mouth in the morning. Indications: repeated episodes of anxiety.10/12/2023ctive aspirin 81 mg Take 1 tablet (81 mg total) by mouth nightly.Active simvastatin (ZOCOR) 40 mg tablet Indications:hyperlipidemiaTake 1 tablet (40 mg total) by mouth nightly Indications: excessive fat in the blood.03/03/2023ctive tamsulosin (FLOMAX) 0.4 mg capsule Indications:benign prostatic hyperplasia with lower urinary tract sxTake 1 capsule (0.4 mg total) by mouth nightly Indications: enlarged prostate with urination problem. Takes at 7-8pmActive QUEtiapine (SEROquel) 50 mg tablet Indications:generalized anxiety disorderTake by mouth 2 (two) times a day Indications: repeated episodes of anxiety. 100mg in AM and 50mg in PM07/17/2023 Active donepeziL (ARICEPT) 10 mg tablet Take 1 tablet (10 mg total) by mouth nightly. For fydzji1312/17/2023ctive levothyroxine (SYNTHROID, LEVOTHROID) 50 MCG tablet Indications:hypothyroidismTake 1 tablet (50 mcg total) by mouth in the morning. Indications: a condition with low thyroid hormone levels.11/16/2023ctive losartan (COZAAR) 25 mg tablet Take 1 tablet (25 mg total) by mouth nightly. For HTN10/12/2023ctive melatonin 10 mg tablet extended release Take 20 mg by mouth nightly.10/30/2023ctive Active Problems ProblemNoted DateDiagnosed DatePostop check01/14/2024 Assessment & Plan (01/14/2024 10:27 AM EDT): Carotid duplex US, continue ASA and statin. F/ U in 2- 3 weeks Stenosis of right carotid xnbbhr1012/29/20235119Hgqdxnezv47/06/2024PH with obstruction/lower urinary tract hrcepboe67/06/2024OVID-19011/12/2023ositive colorectal cancer screening using Cologuard test11/12/2023erebrovascular accident (CVA) due to stenosis of right carotid pxmvwn8211/12/2023Transient ischemic attack involving right internal carotid pkheuu1211/12/2023 Assessment & Plan (11/12/2023 2:08 PM EDT): Cardiac risk stratification Continue aspirin and statin Will add Plavix to start now and for 1 month after carotid endarterectomy We will plan on right carotid endarterectomy for symptomatic Moderate right ICA stenosis Benign prostatic hyperplasia with urinary lgctofhxazf82/27/2024Gross hematuria 08/04/20239279Oeqlujcd43/27/2024oor urinary qkpelt3108/04/2023ilateral carotid artery /31/2023 Assessment & Plan (01/28/2024 10:04 AM EDT): He is status post bilateral carotid endarterectomies. Duplex ultrasound shows wide open carotids. Will continue antiplatelet therapy statin and surveillance imaging annually. Carotid stenosis, ypojakkem81/31/2023 Assessment & Plan (02/02/2025 10:08 PM EDT): Continue aspirin 81 mg and simvastatin 40 mg. Continue risk factors modification. Surveillance imaging in a year with a carotid duplex ultrasound. Major depressive disorder, recurrent, qbxoqujk90/15/2023arotid artery stenosis 04/11/2021HTN (hypertension)11/11/20122079Wmynrnnscrgjwp71/06/2013 Encounters DateTypeDepartmentCare MbebOpemobqxeba35/03/2025Orders Only [facility] [address] [place] [phone] Transcribe, Orders Support User Pain (Primary Dx)02/02/2025 11:40 AM EDTOffice Visit [facility] [place] [address] Marlys Garcia MD Carotid stenosis, bilateral (Primary Dx)02/02/20257392Jfdkjh18/27/2025Orders Only [facility] [address] [place] [phone] External, Scanning Provider Pain (Primary Dx)01/24/2025 9:15 AM EDTAncillary Procedure [facility] [address] [place] [phone] Pain01/24/2025 9:10 AM EDTAncillary Procedure [facility] [address] [place] [phone] Pain01/24/2025Telephone [facility] [address] [place] [address] Marlys Garcia MD 01/19/2025Telephone [facility] [address] [place] [phone] Loretta Munroe, GEMINI from Last 3 Months Immunizations ImmunizationAdministration DatesNext DueInfluenza High Dose Preservative Free IM 04/12/2019,05/10/2015Influenza Vaccine, Quadrivalent, Fjywzmugxv67/31/2023, 04/01/2021Influenza Whole05/10/2015Influenza, High-dose, Vboifmaoccbw89/20/2022 Influenza, Trivalent, Lawuxyzjio63/13/2018Influenza, Nirdneyoulb22/19/2020 Pneumococcal Zmazmjgaf85/07/2014Pneumococcal Conjugate 13-Hfqigf9501/02/2016 Pneumococcal Ipmgzpbtiblwzu82/14/2022,04/14/2014RSV, bivalent, protein subunit RSVpreF, diluent reconstituted, 0.5 mL, PF06/03/2023Tdap12/14/2013Zoster Live 10/03/2013Zoster Vaccine Lwtiwpelnqo50/03/2019,06/30/2018 Family History Medical HistoryRelationNameCommentsAnesthesia problemsNeg Hx Social History Tobacco UseTypesPacks/DayYears UsedDateSmoking Tobacco: FormerPipeCigarsPassive Smoke Exposure: NeverSmokeless Tobacco: Never Tobacco Cessation:Counseling Given: Not Answered Alcohol UseStandard Drinks/WeekCommentsNot Currently4 (1 standard drink = 0.6 oz pure alcohol)[facility] UtilitiesAnswerDate RecordedIn the past 12 months has the backstitch, [employer], oil, or water [employer] threatened to shut off services in your home?No12/29/2023UDIT-CAnswerDate RecordedQ1: How often do you have a drink containing alcohol?2-3 times a week12/29/2023Q2: How many drinks containing alcohol do you have on a typical day when you are drinking?1 or Q3: How often do you have six or more drinks on one occasion?Never12/29/2023HQ-2 AnswerDate RecordedTotal Amoec449RAPARE - TransportationAnswerDate RecordedIn the past 12 months, has lack of transportation kept you from medical appointments or from getting medications?No12/29/2023In the past 12 months, has lack of transportation kept you from meetings, work, or from getting things needed for daily living?No12/29/2023Housing InstabilityAnswerDate RecordedAre you worried or concerned that in the next two months you may not have stable housing that you own, rent or stay in as a part of a household?No12/29/2023 ChildcareAnswerDate UmjfvuahAqlaixeofJykuppc37/19/2019EmploymentAnswerDate YmhhiahxDnujenybirGccocac50/19/2019Hunger ScreeningAnswerDate RecordedWithin the past 12 months we worried whether our food would run out before we got money to buy more.Never True01/28/2024Within the past 12 months the food we bought just didn't last and we didn't have money to get more.Never True01/28/2024urpose - LifeAnswerDate RecordedPurpose and direction in bzkhVlxenji23/11/2021ex and Gender InformationValueDate RecordedSex Assigned at BirthNot on fileLegal Sex Male01/24/2019 8:11 AM EDTGender IdentityNot on fileSexual OrientationNot on file Last Filed Vital Signs Vital SignReadingTime TakenCommentsBlood Tvihxnyj495/6808 9:09 AM EDT Qdvaz263501/28/2024 9:09 AM RQACswavovpgea36.7 ??C (98.1 ??F)12/30/2023 11:00 AM EDTRespiratory Hdsn228212/30/2023 2:30 PM EDTOxygen Xfsrisgbri82%01/28/2024 9:09 AM EDTInhaled Oxygen Concentration--Lconxu65.6 kg (180 lb)01/28/2024 9:09 AM EDT Fluxct938.4 cm (6' 1 )01/28/2024 9:09 AM EDTBody Mass Index23.7508 9:09 AM EDT Plan of Treatment DateTypeDepartmentCare Team (Latest Contact Info)Hzhcnzwwjco34/03/2026 11:00 AM EDTOffice Visit [facility] [address] [place] [address] Marlys Garcia MD [address], [address] [address] Health MaintenanceDue DateLast DoneCommentsFall Risk Dzmqeixty57/17/2010 DTaP,Tdap and Td Vaccines (2 - Td or Tdap)/02/2014Depression Snvfgerja502024Tobacco Jqnmhcjvm09/22//OVID-19 Vaccine ( season)/03/2024, 03/27/2022, 12/27/2021, Additional history existsInfluenza Capllhp49/, 04/07/2023, 03/27/2022, Additional history existsZoster (Shingles) VaccineCompleted 09/08/2018, 06/30/2018, 10/03/2013 Medical Devices ImplantedTypeAreaManufacturerDevice IdentifierShelf Expiration DateModel / Serial / LotPatch Cv 8x.8cm N-Pyrg Tpr End Photofix Decellularized Bvn Rpl [id number] - [id number] Implanted:Qty: 1 on 12/29/2023 by [facility]s [facility]raft[facility]: [id number] / / [id number] Procedures Procedure NamePriorityDate/TimeAssociated DiagnosisCommentsVASC CAROTID DUPLEX WDBCGZJPOKsyikkr91/19/2025 9:15 AM EDT Pain VASC CAROTID DUPLEX BPGQXRVXWKghtqxk45/19/2025 9:10 AM EDT Pain from Last 3 Months Results * Vas carotid duplex bilateral (01/24/2025 9:15 AM EDT) Only the most recent of2 resultswithin the time period is included. Specimen (Source)Anatomical Location / LateralityCollection Method / Volume Collection TimeReceived Time Narrative Authorizing ProviderResult TypeResult StatusScanning Provider ExternalCV VASCULAR ORDERABLESFinal ResultPerforming OrganizationAddressCity/State/ZIP Code Phone Number MEDSTREAMING from Last 3 Months Insurance Care Teams Team MemberRelationshipSpecialtyStart DateEnd Gini Burleson, ADJUNCT SOCIOLOGY PROFESSOR-NOTE SPECIALIST [address] [place] [phone] PCP - GeneralFamily Medicine12/21/23
--- OUTSIDE RECORDS SUMMARY | 2025-04-07 16:41 | XMS_ITS | Clinical Summary ---
Author Organization [facility] Address [address] [place] [address] Care Team Providers Care Facilities Maintenance Manager Name Role Phone Unavailable Primary Care Provider Unavailabl e Social History Tobacco UseTypesPacks/DayYears UsedDateSmoking Tobacco: Never AssessedSex and Gender InformationValueDate RecordedSex Assigned at BirthNot on fileLegal Sex Male11/14/2024 2:56 PM EDTGender IdentityNot on fileSexual OrientationNot on file Plan of Treatment Health MaintenanceDue DateLast DoneCommentsMedicare Wellness Visit02/23/1948 Depression Screening/Follow-Up (PHQ-2/9)1957Falls Risk Assessment 2010RSV Vaccines (1 - 1-dose 75+ series)02/23/2020Tetanus: Every 10yrs (RETIRED)407/02/2014COVID-19 Vaccine ( - 2024- season)2025 07/27/2020Influenza Vaccine (#1)/, 03/26/2020, 04/20/2018, Additional history existsZoster GhgwphijGxuwnlrgr93/03/2019, 06/30/2018, 10/03/2013Pneumococcal Vaccine: 50+ UzlqqTenqpqono80/14/2022, 01/02/2016, 04/14/2014, Additional history exists Insurance
--- OUTSIDE RECORDS SUMMARY | 2025-04-07 16:41 | XMS_ITS | Clinical Summary ---
Author Organization [facility] Address [address], [address] [place] [address] Care Team Providers Care Email Marketing Intern Name Role Phone Gini Burleson APRN - HOSPICE CLINICAL MANAGER Primary Care Provider Allergies Active AllergyReactionsCriticalityNoted XxovXqfzretjFgxjuldte00/09/2021 Other reaction(s): HYPERTENSION Ddvtzucjn43/27/0773Mzfetl19/23/2014 Elevates blood pressure ZkzumEjjiz70/15/2023 Gain laundry detergent caused continued rash. Medications MedicationSigDispense QuantityRefillsLast FilledStart DateEnd DateStatus aspirin 81 MG tablet Indications:DiarrheaTake 1 tablet by mouth dailyActive tamsulosin (FLOMAX) 0.4 MG capsule Take 1 capsule by mouth daily At bedtime 90 capsule 4Active Melatonin ER 10 MG TBCR Take by mouth10/30/2023ctive simvastatin (ZOCOR) 40 MG tablet TAKE 1 TABLET BY MOUTH DAILY FOR HIGH CHOLESTEROL 90 tablet 5Active levothyroxine (SYNTHROID) 50 MCG tablet Indications:Acquired hypothyroidismTAKE 1 TABLET BY MOUTH DAILY ACQUIRED HYPOTHYROID 90 tablet 5Active brexpiprazole (REXULTI) 3 MG TABS tablet Take 1 tablet by mouth daily For behavior . 30 tablet 5Active donepezil (ARICEPT) 10 MG tablet Take 1 tablet by mouth in the morning and at bedtime 60 tablet 5Active losartan (COZAAR) 25 MG tablet Take 0.5 tablets by mouth daily Hypertension 45 tablet 5Active traZODone (DESYREL) 50 MG tablet Take 1/2 pill by mouth in am and 1 pill at bedtime for Behavior outbursts 45 tablet 5Active scopolamine (TRANSDERM-SCOP) transdermal patch Place 1 patch onto the skin every 72 hours Drooling with Alzheimer's disease (reduction of secretions) 10 patch 5Active Active Problems ProblemNoted DateDiagnosed DateBehavioral and psychological symptoms of dementia 10/19/2023Mild cognitive wvggabkjtf21/13/2024Major depressive disorder, recurrent, ctjlaitr60/15/2023HTN (hypertension)11/11/2012Hyperlipidemia 11/11/2012 Encounters DateTypeDepartmentCare UtauDyueejfckfj15/23/2025[facility] [address] [place] [address] Gini Burleson, MEDICAL CLAIMS ASSISTANT - HOSPICE CLINICAL MANAGER Request for scopolamine patch03/24/2025[facility] [address] [place] [address] Gini Burleson, MEDICAL CLAIMS ASSISTANT - HOSPICE CLINICAL MANAGER 03/13/2025[facility] [address] [place] [address] Gini Burleson, MEDICAL CLAIMS ASSISTANT - HOSPICE CLINICAL MANAGER 03/02/2025[facility] [address] [place] [address] Gini Burleson, MEDICAL CLAIMS ASSISTANT - HOSPICE CLINICAL MANAGER 02/27/2025 10:00 AM EDTOffice Visit [facility] [address] [place] [address] Gini Burleson, MEDICAL CLAIMS ASSISTANT - HOSPICE CLINICAL MANAGER Behavioral and psychological symptoms of dementia (HCC) (Primary Dx); Mixed hyperlipidemia; S/P carotid endarterectomy; Primary hypertension; Acquired wtrnupswoyxpii37/12/2025[facility] [address] [place] [address] Gini Burleson, MEDICAL CLAIMS ASSISTANT - HOSPICE CLINICAL MANAGER Referral Request ??? Speech and Swallow Study02/13/2025 9:57 AM EDT - 02/15/2025 11:59 PM EDTHospital Encounter [facility] [address] [place] [address] Community acquired pneumonia of right lower lobe of lung Discharge Disposition: Home or Self Care02/13/2025 9:49 AM EDTHospital Encounter [facility] [address] [place], [place] [phone] Primary hypertension; Mixed hyperlipidemia; Vitamin D deficiency Discharge Disposition: Home or Self Care02/13/2025 8:40 AM EDTOffice Visit [facility] [address] [place] [address] Gini Burleson APRN - LORNA Community acquired pneumonia of right lower lobe of lung (Primary Dx); Hypotension due to hypovolemia; Communication impairment; Behavioral and psychological symptoms of dementia (HCC); Drooling; Acquired hypothyroidism; Mixed hyperlipidemia; Primary hypertension; Vitamin D deficiency; Repeated falls; Weakness eapxthdvhej93/08/2025Results Follow-Up [facility] [address] [place] [address] Gini Burleson APRN - CNP 01/20/2025Refill [address] [phone] Gini Burleson APRN - LORNA Medication Zlphme9201/11/2025bstract [facility] [address] [address] Gini Burleson APRN - CNP from Last 3 Months Immunizations ImmunizationAdministration DatesNext DueCOVID-19, COMIRNATY (Pfizer), (age 12y+), IM, 30mcg/0.3mL4COVID-19, Inactive, PFIZER PURPLE top, DILUTE for use, (age 12 y+)07/27/2020Influenza Virus Mvnooeg3103/27/2022,03/26/2020 Influenza Whole05/10/2015Influenza, FLUAD, (age 65 y+), IM, Quadv, 0.5mL 04/07/2023,04/01/2021Influenza, FLUAD, (age 65 y+), IM, Trivalent PF, 0.5mL 04/22/2024,04/20/2018Influenza, FLUZONE High Dose (age 65 y+), IM, Quadv, 0.7mL 03/27/2022Influenza, FLUZONE High Dose, (age 65 y+), IM, Trivalent PF, 0.5mL 04/12/2019,04/20/2018,05/10/2015Pneumococcal Conjugate 7-valent (Prevnar7) 04/14/2014Pneumococcal, PCV-13, PREVNAR 13, (age 6w+), IM, 0.5mL01/02/2016 Pneumococcal, PPSV23, PNEUMOVAX 23, (age 2y+), SC/IM, 0.5mL04/21/2022,04/14/2014 RSV, ABRYSVO, ( or age 60y+), PF, IM, 0.5mL06/03/2023TDaP, ADACEL (age 10y-64y), BOOSTRIX (age 10y+), IM, 0.5mL07/01/2017,12/14/2013Zoster Live (Zostavax)10/03/2013Zoster Recombinant (Shingrix)09/08/2018,06/30/2018 Family History Medical HistoryRelationNameCommentsDiabetesFatherRichardStrokeFatherRichardHeart AttackMaternal GrandmotherDementiaMotherAliceHeart FailureMotherAlice OsteoporosisPaternal GrandfatherRelationNameStatusCommentsBrother 1RobertAlive Brother 2MarkAliveBrother 3JohnAliveBrother 4SteveAliveFatherRichardDeceased (Age 69)Maternal GrandfatherDeceasedMaternal GrandmotherDeceasedMotherAlice DeceasedPaternal GrandfatherDeceasedPaternal GrandmotherDeceased Social History Tobacco UseTypesPacks/DayYears UsedDateSmoking Tobacco: WeclhdYcmu59/01/1955 - 06/08/1974Passive Smoke Exposure: PastSmokeless Tobacco: Never Tobacco Cessation:Counseling Given: Not Answered Alcohol UseStandard Drinks/WeekCommentsNot Currently4 (1 standard drink = 0.6 oz pure alcohol)daily/wineAHC UtilitiesAnswerDate RecordedIn the past 12 months has the electric, gas, oil, or water company threatened to shut off services in your home?No08/15/2024UDIT-CAnswerDate RecordedQ1: How often do you have a drink containing alcohol?Monthly or less05/16/2024Q2: How many drinks containing alcohol do you have on a typical day when you are drinking?1 or Q3: How often do you have six or more drinks on one occasion?Less than monthly 05/16/2024Overall Financial Resource Strain (CARDIA)AnswerDate RecordedHow hard is it for you to pay for the very basics like food, housing, medical care, and heating?Not hard at all11/16/2023HQ-2AnswerDate RecordedPHQ-9 Total Score0 08/15/2024Exercise Vital SignAnswerDate RecordedOn average, how many days per week do you engage in moderate to strenuous exercise (like a brisk walk)?0 days 05/16/2024On average, how many minutes do you engage in exercise at this level?0 min05/16/2024Hunger Vital SignAnswerDate RecordedWithin the past 12 months, you worried that your food would run out before you got the money to buymore.Never true08/15/2024Within the past 12 months, the food you bought just didn't last and you didn't have money to get more.Never true08/15/2024PRAPARE - TransportationAnswerDate RecordedIn the past 12 months, has lack of transportation kept you from medical appointments or from getting medications?No 08/15/2024In the past 12 months, has lack of transportation kept you from meetings, work, or from getting things needed for daily living?No08/15/2024 Housing Stability Vital SignAnswerDate RecordedUnable to Pay for Housing in the Last YearNot on file11/16/2023Number of Places Lived in the Last YearNot on file 11/16/2023In the last 12 months, was there a time when you did not have a steady place to sleep or slept in ashelter (including now)?No11/16/2023Housing Stability Vital SignAnswerDate RecordedIn the last 12 months, was there a time when you were not able to pay the mortgage or rent on time?No08/15/2024In the past 12 months, how many times have you moved where you were living? At any time in the past 12 months, were you homeless or living in a fpc (including now)?08/15/2024Food InsecurityAnswerDate RecordedWithin the past 12 months, you worried that your food would run out before you got the money to buy more.Within the past 12 months, the food you bought just didn't last and you didn't have money to get more.Sex and Gender InformationValue Date RecordedSex Assigned at BirthNot on fileLegal HesRonv6407/18/2012 10:09 AM ESTGender IdentityNot on fileSexual OrientationNot on fileOccupationIndustryJob Start DateJob End DatefarmerNot on fileNot on fileNot on filerailroadNot on file Not on fileNot on filelandlordNot on fileNot on fileNot on fileelectricianNot on fileNot on fileNot on file Last Filed Vital Signs Vital SignReadingTime TakenCommentsBlood Zocttpgn602/6609 10:05 AM EDT Eeawb1342 10:05 AM SAPTyervxtxccd42.3 ??C (97.4 ??F)02/27/2025 10:05 AM EDTRespiratory Movd4338 1:59 PM ESTOxygen Htglsrceus16%02/27/2025 10:05 AM EDTInhaled Oxygen Concentration--Sfnxqq35.8 kg (169 lb 6.4 oz)02/27/2025 10:05 AM GTGMistup363.4 cm (6' 1 )02/27/2025 10:05 AM EDTBody Mass Index22.35 02/27/2025 10:05 AM EDT Plan of Treatment DateTypeDepartmentCare Team (Latest Contact Info)Bjsxeyqoeid60/15/2025 10:00 AM ESTOffice Visit [facility] [address] [place] [phone] Gini Burleson, MEDICAL CLAIMS ASSISTANT - HOSPICE CLINICAL MANAGER [address] [phone] Health MaintenanceDue DateLast DoneCommentsFlu vaccine (#1)511/, 04/07/2023, 03/27/2022, Additional history existsCOVID-19 Vaccine (2023- season)509/03/2024, 03/27/2022, 12/27/2021, Additional history exists Annual Wellness Visit (Medicare)/02/2024, 04/27/2023, 04/21/2022, Additional history existsDepression Ljmsjcudlj09/10/202603/03/2025, 08/15/2024 Qgnajt31/01/2025, 05/16/2024, 12/01/2023, Additional history exists DTaP/Tdap/Td vaccine (3 - Td or Tdap)8007/01/2017, 12/14/2013Hepatitis C aoizwhZrjgeboblmxk06/27/2016 (Declined)Shingles lnjtkbdTcxdrynju01/03/2019, 06/30/2018, 10/03/20131601XbcquixlhzqAftiiskdqlma41/08/2022, 09/06/2018, 07/10/2010 (Previously completed)Pneumococcal 50+ years JizgozrPwerpumcf78/14/2022, 01/02/2016, 04/14/2014, Additional history existsRespiratory Syncytial Virus (RSV) or age 60 yrs+Qfmgfmbrj81/27/2023AAA screenDiscontinued 01/01/2024, 01/09/2016Depression UpyscpDjtgbiqwsmro57/10/2025, 08/15/2024 Hepatitis A vaccineAged OutNo longer eligible based on patient's age to complete this topicHepatitis B vaccineAged OutNo longer eligible based on patient's age to complete this topicHib vaccineAged OutNo longer eligible based on patient's age to complete this topicMeningococcal (ACWY) vaccineAged OutNo longer eligible based on patient's age to complete this topicMeningococcal B vaccineAged OutNo longer eligible based on patient's age to complete this topicPolio vaccineAged OutNo longer eligible based on patient's age to complete this topic Procedures Procedure NamePriorityDate/TimeAssociated DiagnosisCommentsXR CHEST (2 VW) Czbtkzs8002/13/2025 10:16 AM EDT Community acquired pneumonia of right lower lobe of lung VITAMIN D 25 FXUAEDTOgkdjrz44/08/2025 10:12 AM EDT Vitamin D deficiency FHTXOOKKFMwghcix54/08/2025 10:12 AM EDT Primary hypertension LIPID OVCMXEfiiqmq42/08/2025 10:12 AM EDT Mixed hyperlipidemia COMPREHENSIVE METABOLIC QZWPHAavoixp63/08/2025 10:12 AM EDT Mixed hyperlipidemia CBC WITH AUTO BMYYPWKYPAERMorpswr01/08/2025 10:12 AM EDT Primary hypertension CT ABDOMEN PELVIS W IPZUVNPOUhevayu99/26/2024 11:53 AM EDTHM COLONOSCOPYRoutine 04/15/2022from Last 3 Months or Most Recently Relevant to Health Maintenance Results * XR CHEST (2 VW) (02/13/2025 10:16 AM EDT)Anatomical RegionLateralityModality ChestComputed RadiographySpecimen (Source)Anatomical Location / Laterality Collection Method / VolumeCollection TimeReceived MlkhOokja65/08/2025 10:16 AM EDT Impressions 02/13/2025 2:58 PM EDT FINDINGS/IMPRESSION: No pneumonia or acute change in the lungs. Heart size normal. Mild plaque aorta. Narrative 02/13/2025 2:58 PM EDT EXAM: XR CHEST (2 VW) HISTORY: Community acquired pneumonia of right lower lobe of lung COMPARISON: 06/27/2010 Procedure Note Perez Lopez Jr., MD - 02/13/2025 EXAM: XR CHEST (2 VW) HISTORY: Community acquired pneumonia of right lower lobe of lung COMPARISON: 06/27/2010 IMPRESSION: FINDINGS/IMPRESSION: No pneumonia or acute change in the lungs. Heart size normal. Mild plaque aorta. Authorizing ProviderResult TypeResult StatusSuzion Carol Sarah Beth BUENROSTRO - CNPIMG DIAGNOSTIC IMAGING ORDERABLESFinal Result * (ABNORMAL) CBC with Auto Differential (02/13/2025 10:12 AM EDT)ComponentValue Ref RangeTest MethodAnalysis TimePerformed AtPathologist SignatureWBC7.03.5 - 11.0 k/uL02/13/2025 10:12 AM [email or web address] [facility] LABRBC4.23(L)4.50 - 5.90 m/uL02/13/2025 10:12 AM EDTMPososhok.ru [facility] FEPAkpgqoysgp30.513.5 - 17.5 g/dL02/13/2025 10:12 AM EDTMPososhok.ru [facility] NRZVcytcwqglm86.1(L)41.0 - 53.0 %02/13/2025 10:12 AM EDTMPososhok.ru [facility] ZDTLHY88.880.0 - 100.0 fL 02/13/2025 10:12 AM EDUppidyARD KTFFXN00.926.0 - 34.0 pg02/13/2025 10:12 AM EDTMMEI PharmaARD PJTBPYA46.731.0 - 37.0 g/dL02/13/2025 10:12 AM [email or web address] [facility] BWKCLU30.912.1 - 15.2 %02/13/2025 10:12 AM EDTMPososhok.ru [facility] XBSEtwxddhop964740 - 450 k/uL02/13/2025 10:12 AM [email or web address] [facility] LABMPV9.16.0 - 12.0 fL02/13/2025 10:12 AM EDTMPososhok.ru [facility] LABNeutrophils %6639 - 75 %02/13/2025 10:12 AM EDTMPososhok.ru [facility] LABLymphocytes %2313 - 44 %02/13/2025 10:12 AM EDTMPososhok.ru [facility] Monocytes %10(H)5 - 9 %02/13/2025 10:12 AM [facility] Eosinophils %10 - 5 %02/13/2025 10:12 AM [email or web address] [facility] LABBasophils %00 - 2 %02/13/2025 10:12 AM EDPososhok.ru [facility] LABImmature Granulocytes %00 - 5 %02/13/2025 10:12 AM [facility] LABNeutrophils Absolute 4.592.1 - 6.5 k/uL02/13/2025 10:12 AM [facility] LABLymphocytes Absolute1.611.00 - 4.80 k/uL02/13/2025 10:12 AM [facility] Monocytes Absolute0.730.00 - 1.00 k/uL02/13/2025 10:12 AM [email or web address].ru [facility] LABEosinophils Absolute0.040.00 - 0.40 k/uL02/13/2025 10:12 AM EDT [employer] [facility] LABBasophils Absolute0.020.00 - 0.20 k/uL02/13/2025 10:12 AM EDMEI PharmaARD LABImmature Granulocytes Absolute0.000.00 - 0.30 k/uL02/13/2025 10:12 AM [facility] LABSpecimen (Source)Anatomical Location / LateralityCollection Method / VolumeCollection TimeReceived Time BloodBLOOD SPECIMEN / Obcyoam6902/13/2025 10:12 AM EDT02/13/2025 10:13 AM EDT Narrative Authorizing ProviderResult TypeResult StatusSusaaliya Burleson MEDICAL CLAIMS ASSISTANT - CNPHEMATOLOGY ORDERABLESFinal ResultPerforming OrganizationAddressCity/State/ZIP CodePhone Number [employer] [facility] [address] [place] [address], [facility] [phone] * Vitamin D 25 Hydroxy (02/13/2025 10:12 AM EDT)ComponentValueRef RangeTest MethodAnalysis TimePerformed AtPathologist SignatureVit D, 25-Xdztxus55.930.0 - 100.0 ng/mL02/13/2025 10:12 AM EDCredit KarmaY LABORATORIESComment: Reference Range: Vitamin D status ? Range Deficiency <20 ng/mL Mild Deficiency ? 20-30 ng/mL Sufficiency ?30-100 ng/mL Toxicity >100 ng/mL Specimen (Source)Anatomical Location / LateralityCollection Method / Volume Collection TimeReceived TimeBloodBLOOD SPECIMEN / Bwsyium9202/13/2025 10:12 AM EDT 02/13/2025 10:13 AM EDT Narrative Authorizing ProviderResult TypeResult StatusGini Burleson MEDICAL CLAIMS ASSISTANT - CNPCHEMISTRY ORDERABLESFinal ResultPerforming OrganizationAddressCincinnati [facility]/State/ZIP CodePhone Number [facility] [address] [place] [address], [facility] [phone] [place] [id number], [facility] [phone] * (ABNORMAL) Magnesium (02/13/2025 10:12 AM EDT)ComponentValueRef RangeTest MethodAnalysis TimePerformed AtPathologist SignatureMagnesium2.7(H)1.6 - 2.6 mg/dL02/13/2025 10:12 AM [facility] HOSPITALPososhok.ru [facility] LABSpecimen (Source) Anatomical Location / LateralityCollection Method / VolumeCollection Time Received TimeBloodBLOOD SPECIMEN / Kmkjuya5102/13/2025 10:12 AM EDT02/13/2025 10:13 AM EDT Narrative Authorizing ProviderResult TypeResult Ludwig Burleson MEDICAL CLAIMS ASSISTANT - CNPCHEMISTRY ORDERABLESFinal ResultPerforming OrganizationAddressty/State/ZIP CodePhone Number [facility] [address] [place] [address], [facility] [phone] * Lipid Panel (02/13/2025 10:12 AM EDT)ComponentValueRef RangeTest Method Analysis TimePerformed AtPathologist SignatureCholesterol, Mifif5922 - 199 mg/dL02/13/2025 10:12 AM EDTMERCY LABORATORIESComment: Cholesterol Guidelines: <200 Desirable 200-240 ??Borderline >240 Undesirable HDL54>40 mg/dL02/13/2025 10:12 AM EDTMERCY LABORATORIESComment: HDL Guidelines: <40 Undesirable 40-59 ?Borderline >59 Desirable LDL Uokcrxuojgo706 - 100 mg/dL02/13/2025 10:12 AM EDTMERCY LABORATORIESComment: LDL Guidelines: <100 Desirable 100-129 ?? Near to/above Desirable 130-159 ?? Borderline >159 Undesirable Direct (measured) LDL and calculated LDL are not interchangeable tests. Chol/HDL Ratio2.5<5.009 10:12 AM EDTMERCY VRNWXYLIPLHXJrmrcvymjhrgk75 <150 mg/dL02/13/2025 10:12 AM EDTMCredit KarmaY LABORATORIESComment: Triglyceride Guidelines: <150 Desirable 150-199 ??Borderline 200-499 ??High >499 Very high Based on AHA Guidelines for fasting triglyceride, March 2012. VLDL81 - 30 mg/dL02/13/2025 10:12 AM EDTMCredit KarmaY LABORATORIESSpecimen (Source) Anatomical Location / LateralityCollection Method / VolumeCollection Time Received TimeBloodBLOOD SPECIMEN / Detyewz3202/13/2025 10:12 AM EDT02/13/2025 10:13 AM EDT Narrative Authorizing ProviderResult TypeResult StatusSuzion Burleson MEDICAL CLAIMS ASSISTANT - CNPCHEMISTRY ORDERABLESFinal ResultPerforming OrganizationAddressCity/State/ZIP CodePhone Number [facility] [address] [facility] [place] [address], [facility] [phone] [employer] [address] [phone] * (ABNORMAL) Comprehensive Metabolic Panel (02/13/2025 10:12 AM EDT)Component ValueRef RangeTest MethodAnalysis TimePerformed AtPathologist SignatureSodium 065180 - 144 mmol/L02/13/2025 10:12 AM [facility] LABPotassium4.0 3.7 - 5.3 mmol/L02/13/2025 10:12 AM [facility] SNKTvdctply37833 - 107 mmol/L02/13/2025 10:12 AM [facility] ORUEN93076 - 31 mmol/L 02/13/2025 10:12 AM [facility] LABAnion Gap99 - 17 mmol/L 02/13/2025 10:12 AM [facility] KXBHxfvbvk491(H)70 - 99 mg/dL 02/13/2025 10:12 AM [facility] UYDVID55(H)8 - 23 mg/dL02/13/2025 10:12 AM [facility] LABCreatinine0.90.7 - 1.2 mg/dL02/13/2025 10:12 AM [facility] LABEst, Glom Filt Rate87>60 mL/min/1.73m2 02/13/2025 10:12 AM [facility] LABComment: ? These results are not intended for use in patients <18 years of age. ? eGFR results are calculated without a race factor using the 2020 CKD-EPI equation. Careful clinical correlation is recommended, particularly when comparing to results calculated using previous equations. The CKD-EPI equation is less accurate in patients with extremes of muscle mass, extra-renal metabolism of creatine, excessive creatine ingestion, or following therapy that affects renal tubular secretion. Calcium9.68.6 - 10.4 mg/dL02/13/2025 10:12 AM [facility] LABTotal Protein7.46.4 - 8.3 g/dL02/13/2025 10:12 AM [facility] LABAlbumin 4.23.5 - 5.2 g/dL02/13/2025 10:12 AM [facility] LABAlbumin/Globulin Ratio1.31.0 - 2. 10:12 AM [facility] LABTotal Bilirubin 0.60.3 - 1.2 mg/dL02/13/2025 10:12 AM [facility] LABAlkaline Dyuzyzxhdud0367 - 129 U/L02/13/2025 10:12 AM [facility] VVKOQL842 - 41 U/L02/13/2025 10:12 AM [facility] TOJXHF11<40 U/L02/13/2025 10:12 AM [facility] LABSpecimen (Source)Anatomical Location / LateralityCollection Method / VolumeCollection TimeReceived TimeBloodBLOOD SPECIMEN / Kcwtozm8202/13/2025 10:12 AM EDT02/13/2025 10:13 AM EDT Narrative Authorizing ProviderResult TypeResult StatusSuzion Burleson MEDICAL CLAIMS ASSISTANT - CNPCHEMISTRY ORDERABLESFinal ResultPerforming OrganizationAddressCity/State/ZIP CodePhone Number [facility] [address] [place] [address], [facility] [phone] * CT Abdomen Pelvis W Contrast (01/01/2024 11:53 AM EDT)Anatomical Region LateralityModalityComputed Tomography Narrative Authorizing ProviderResult TypeResult StatusHistorical Provider MDIMG CT ORDERABLESFinal Result * HM COLONOSCOPY (04/15/2022) Narrative Authorizing ProviderResult TypeResult StatusHistorical Provider MDHEALTH MAINTENANCEFinal Result from Last 3 Months or Most Recently Relevant to Health Maintenance Insurance Advance Directives TypeDate RecordedPatient RepresentativeExplanationACP-Do Not Resuscitate 04/21/2022 9:41 AM04/21/22 DNR Comfort [employer] * DNR-CC (Latest Code Status on File) Date ActivatedDate ZgltelpgwmoSyjasowk29/16/2022 12:08 AM NameRelationshipHealthcare Agent RelationshipCommunicationAshleigh Armendariz Primary Decision Maker* Care Teams Team MemberRelationshipSpecialtyStart DateEnd Date Gini Burleson, MEDICAL CLAIMS ASSISTANT - HOSPICE CLINICAL MANAGER [address] [place] [address] [facility] - [facility]01/09/16
--- OUTSIDE RECORDS SUMMARY | 2025-04-07 16:41 | XMS_ITS | Encounter Summary ---
Author Organization [facility] Address [address] [facility] [place] [address] Care Team Providers Care Mesh Man Name Role Phone Olimpia Middleton MD Primary Care Provider [phone] Gini Burleson ASSEMBLY WORKER Unavailable [phone] Encounter Details DateTypeDepartmentCare Team (Latest Contact Info)Aqmmcbgbbaq07/14/2024linisync Result Encounter [facility] Department Unsolicited Marlys Garcia MD [address] [place] [address] Social History Tobacco UseTypesPacks/DayYears UsedDateSmoking Tobacco: NeverSmokeless Tobacco: NeverAlcohol UseStandard Drinks/WeekCommentsNever0 (1 standard drink = 0.6 oz pure alcohol)Sex and Gender InformationValueDate RecordedSex Assigned at Not on fileLegal EdhGpic2608/20/2022 7:07 PM EDTGender IdentityNot on fileSexual OrientationNot on filedocumented as of this encounter Plan of Treatment DateTypeDepartmentCare Team (Latest Contact Info)Wzyyzrigvbg58/07/2025 10:15 AM ESTOffice Visit [facility] [address] [place] [address] Ted Putnam, DO [address] [place], [place] [phone] 05/12/2025 10:15 AM ESTOffice Visit [facility] [address] [place] [phone] Ted Putnam D, DO [address] [place] [address] 06/15/2025 10:00 AM ESTOffice Visit [facility] [address] [place] [address] Lissette Treviño, ROVING INSPECTOR-MEDICAL TRANSCRIPTION RADIOLOGY [address] [facility] [place] [address] documented as of this encounter Procedures Procedure NamePriorityDate/TimeAssociated DiagnosisCommentsVASC US CAROTID ARTERY DUPLEX XURTFQKYF83/14/2024 10:33 AM EDT documented in this encounter Results * Vascular US carotid artery duplex bilateral (01/20/2024 10:33 AM EDT) Anatomical RegionLateralityModalityNeckUltrasoundSpecimen (Source)Anatomical Location / LateralityCollection Method / VolumeCollection TimeReceived Time 01/20/2024 10:33 AM EDT Narrative 01/20/2024 10:35 AM EDT [facility] ?[address] ? [place] [address] ? Ultrasound Report ? Signed ? Patient: CHARLINEARNOL Lombardo ?MR#: [id number] ?? : 1945 ?Acct:[id number] ?? Age/Sex: 78 / M ?ADM Date: 01/19/24 ?? Loc: US ? Attending Dr: Marlys Garcia M.D. ? Ordering Physician: Marlys Garcia M.D. ?? Date of Service: 01/19/24 ?? Procedure(s): US carotid duplex BI ?? Accession Number(s): [id number] ? cc: Gini Burleson ASSEMBLY WORKER; Marlys Garcia M.D. ? [facility] ? [address] ? [place] [address] ? Patient Name: ?? ARNOL PENN ? MRN: [id number] ? date: 1945 ?Sex: M ?? Assigned Patient Location: US ?? Current Patient Location: US ?? Accession/Order Number: [id number] ?? Exam Date: 01/19/2024 ??15:12 ?Report Date: 01/20/2024 ??10:33 ? At the request of: ?? MOHAMED ??CAYETANO ? Procedure: ??US carotid duplex BI ? DUPLEX ULTRASOUND EXAMINATION OF THE CAROTID ARTERIES. ? COMPARISON: 10/31/2023. ? HISTORY / INDICATIONS: History of endarterectomy. ? TECHNIQUE: Bilateral common carotid arteries, extracranial internal and ?? external carotid arteries are evaluated with balderrama-scale imaging, color ?? Doppler, ?? and spectral analysis according to a standard protocol. ICA/CCA ratios are ?? calculated with outreach representative peak-systolic velocities and recorded. ?? Vertebral ?? arteries are evaluated in one segment to evaluate for patency and character of ? flow. Comparison with previous evaluation is performed when available. Unless ?? otherwise specified, all velocities are measured in cm/sec. Carotid stenosis ?? is ?? reported according to validated velocity parameters, similar to NASCET ?? criteria. ? FINDINGS: ?? Right Carotid: Plaque was noted. Velocity measurements as follows: Internal ?? Carotid Artery 75/13, 82/17, and 78/19. ICA/CCA ratio: 1.5. ? Left Carotid: Plaque was noted. Velocity measurements as follows: Internal ?? Carotid Artery 108/21, 88/21, and 72/19. ICA/CCA ratio: 1.1. ? Antegrade flow was seen in both vertebral arteries. ? CONCLUSION: ? 1. Less than 50% stenosis of the right ICA. ? 2. Less than 50% stenosis of the left ICA. ? 3. Vertebral arteries are patent and demonstrate antegrade flow. ? Electronically authenticated by: Kike SUTTON ??HEATHER ?? Date: 01/20/2024 ??10:33 ? Dictated By: ?Kike Whaley M.D. ? Signed By: ?01/20/24 1035 ? DD/ 1033 ? TD/TT: ? Hadoop Developer: Procedure Note Radiology, Radiologist, - 01/20/[address] [address] Ultrasound Report Signed Patient: ARNOL PENN CMR#: [id number] : 5Acct:[id number] Age/Sex: 78 / MADM Date: 01/19/24 Loc: US Attending Dr: Marlys Garcia M.D. Ordering Physician: Marlys Garcia M.D. Date of Service: 01/19/24 Procedure(s): US carotid duplex BI Accession Number(s): [id number] cc: Gini Burlesno NP; Marlys Garcia M.D. [address] [address] Patient Name: ARNOL PENN MRN: [facility]:[id number] date: 1945 Sex: M Assigned Patient Location: US Current Patient Location: US Accession/Order Number: [id number] Exam Date: 01/19/2024 15:12 Report Date: 01/20/2024 [...] standard protocol. ICA/CCA ratios are calculated with outreach representative peak-systolic velocities and recorded. Vertebral arteries [...] M.D. Signed By:01/20/24 1035 DD/ 1033 TD/TT: Hadoop Developer: Authorizing ProviderResult TypeResult StatusMohamed Robbin EASON US PROCEDURES Final Result documented in this encounter Visit Diagnoses Not on filedocumented in this encounter Care Teams Team MemberRelationshipSpecialtyStart DateEnd Date Olimpia Middleton MD [address] [place] [address] PCP - GeneralFamily Hfxhcwew46/31/23 Gini Burleson NP [address] [place] [address] Referring PhysicianFamily Jchciicu33/31/23documented as of this encounter
--- OUTSIDE RECORDS SUMMARY | 2025-04-07 16:41 | XMS_ITS | Encounter Summary ---
Author Organization [facility] Address [address] [facility] [address] [facility], [address] [place] [address] Care Team Providers Care Battery Tester And Repairer Name Role Phone Gini Burleson APRN - MUSEUM EDUCATOR Primary Care Provider Encounter Details DateTypeDepartmentCare Team (Latest Contact Info)Gjspkecrtvz73/17/2025bstract [facility] Primary Care Omega [address] [place], [place] [phone] Gini Burleson, PORTER - MUSEUM EDUCATOR [address] [place] [address] Social History Tobacco UseTypesPacks/DayYears UsedDateSmoking Tobacco: GoayksRjtp71/01/1955 - 06/08/1974Passive Smoke Exposure: PastSmokeless Tobacco: NeverAlcohol Use Standard Drinks/WeekCommentsNot Currently4 (1 standard drink = 0.6 oz pure alcohol)daily/wineAHC UtilitiesAnswerDate RecordedIn the past 12 months has the electric, gas, oil, or water [place] threatened to shut off services in your [...] steady place to sleep or slept in [place] (including now)?No11/16/2023Housing Stability Vital SignAnswerDate RecordedIn the last 12 months, was there a time when you were not able to pay the mortgage or rent on time?No08/15/2024In the past 12 months, how many times have you moved where you were living? At any time in the past 12 months, were you homeless or living in a group home (including now)?No08/15/2024Food InsecurityAnswerDate RecordedWithin the past 12 months, you worried that your food would run out before you got the money to buy more.Within the past 12 months, the food you bought just didn't last and you didn't have money to get more.Sex and Gender InformationValue Date RecordedSex Assigned at BirthNot on fileLegal CovZdfy7207/18/2012 10:09 AM ESTGender IdentityNot on fileSexual OrientationNot on fileOccupationIndustryJob Start DateJob End DatefarmerNot on fileNot on fileNot on filerailroadNot on file Not on fileNot on filelandlordNot on fileNot on fileNot on fileelectricianNot on fileNot on fileNot on filedocumented as of this encounter Plan of Treatment DateTypeDepartmentCare Team (Latest Contact Info)Hblwfdvljow43/15/2025 10:00 AM ESTOffice Visit [facility] [place] [place] [address] [place] [address] Gini Burleson, PORTER - MUSEUM EDUCATOR [address] [place] [address] documented as of this encounter Visit Diagnoses Not on filedocumented in this encounter Additional Health Concerns AssessmentNoted TimeA fall risk assessment has been completed for the patient 05/16/2024 8:30 AM ESTdocumented as of this encounter Care Teams Team MemberRelationshipSpecialtyStart DateEnd Date Gini Burleson APRN - MUSEUM EDUCATOR [address] [place] [address] PCP - General01/09/16documented as of this encounter
--- OUTSIDE RECORDS SUMMARY | 2025-04-07 16:41 | XMS_ITS | Clinical Summary ---
Author Organization [facility] Address [address] [place] [address] Care Team Providers Care Fibre Cement Moulder Name Role Phone Gini Burleson MD Primary Care Provider [phone] Allergies Active AllergyReactionsCriticalityNoted ZutzXmsgbfxaVtxkklrigItmlb28/09/2021 Other reaction(s): HYPERTENSION Other Reaction(s): HYPERTENSION, increases BP Other reaction(s): HYPERTENSION Dqaimhoug83/27/2024Nsaids (Non-Steroidal Anti-Inflammatory Drug)02/28/2014 Elevates blood pressure Elevates blood pressure Medications MedicationSigDispense QuantityRefillsLast FilledStart DateEnd DateStatus aspirin 81 mg EC tablet Take 81 mg by mouth in the morning.Active tamsulosin (Flomax) 0.4 mg 24 hr capsule 06/16/2022ctive donepezil (Aricept) 10 mg tablet Take 10 mg by mouth at bedtime.06/29/2023ctive FLUoxetine (PROzac) 40 mg capsule TAKE 1 CAPSULE BY MOUTH DAILY FOR ANXIETY OR MOOD07/04/2023ctive QUEtiapine (SEROquel) 50 mg tablet Take 150 mg by mouth 1 (one) time each day. 100mg in the AM, 50mg in the PM 07/17/2023ctive clopidogrel (Plavix) 75 mg tablet Take 1 tablet by mouth in the morning.11/12/2023ctive levothyroxine (Synthroid, Levoxyl) 50 mcg tablet Take 50 mcg by mouth.11/16/2023ctive melatonin 10 mg tablet extended release Take 20 mg by mouth in the morning.10/30/2023ctive traZODone (Desyrel) 50 mg tablet Take 50 mg by mouth two times daily.Active simvastatin (Zocor) 40 mg tablet Indications:Hyperlipidemia, unspecified hyperlipidemia typeTake 1 tablet (40 mg) by mouth at bedtime. 30 tablet 1105//302651/6Active losartan (Cozaar) 25 mg tablet Indications:Essential hypertensionTake 1 tablet (25 mg) by mouth in the morning. 90 tablet 308//965395/6Active Active Problems ProblemNoted DateDiagnosed CmaxIjlkxmomltct90/04/2025Foley catheter status 08/09/20244708Bqfnkbbjk67/04/2025Postop check01/14/2024MI 24.0-24.9, adult 11/16/2023Former vasahv2411/16/2023erebrovascular accident (CVA) due to stenosis of right carotid dufivy1611/12/2023OVID-19011/12/20234154Ntuolaras70/06/2024ositive colorectal cancer screening using Cologuard test11/12/2023Transient ischemic attack involving right internal carotid uixdni4311/12/2023 Overview (11/16/2023): Last Assessment & Plan: Cardiac risk stratification Continue aspirin and statin Will add Plavix to start now and for 1 month after carotid endarterectomy We will plan on right carotid endarterectomy for symptomatic Moderate right ICA stenosis Behavioral and psychological symptoms of sriyknvv39/13/2024Mild cognitive fjqnsmoaxp28/13/2024enign prostatic hyperplasia with urinary obstruction Gross wpzopjlvh34Nocturia08/04/2023 08/04/2023oor urinary dpqnag65ilateral carotid artery tdveamkjz93arotid stenosis, eccwuqlxo48 Major depressive disorder, recurrent, bbtvzyoj58arotid artery glxkwuny16/04/2021HTN (hypertension)11/11/20125863Olcmoxfqbszecj66/06/2013 Encounters DateTypeDepartmentCare ZhmgAcinfwsnpnp83/28/2025Telephone [facility] [place] [address] [place] [address] Mary Grace Smith MA 02/20/2025Telephone [facility] [address] [facility] [place] [address] Thea Pastor MA 02/02/2025Refill [facility] [address] [facility] [place] [address] hTea Pastor MA Essential hypertensionfrom Last 3 Months Family History Medical HistoryRelationNameCommentsDiabetesFatherStrokeFatherRelationNameStatus CommentsFather Social History Tobacco UseTypesPacks/DayYears UsedDateSmoking Tobacco: Never AssessedUT Safety & EnvironmentAnswerDate RecordedFear of Current or Ex-PartnerNot on file 07/30/2023Emotionally AbusedNot on file07/30/2023hysically AbusedNot on file 07/30/2023Sexually AbusedNot on file4Physically or Sexually AbusedNot on file07/30/2023Sex and Gender InformationValueDate RecordedSex Assigned at BirthNot on fileLegal DbtDazi6412/04/2021 11:59 PM EDTGender IdentityNot on file Sexual OrientationNot on file Last Filed Vital Signs Vital SignReadingTime TakenCommentsBlood Faxttlgl006/68008/09/2024 11:20 AM EST Xnhnr7589 11:20 AM ESTTemperature--Respiratory Rate--Oxygen Saturation 98%08/09/2024 11:20 AM ESTInhaled Oxygen Concentration--Rhlhlf61.8 kg (187 lb) 08/09/2024 11:20 AM CTMBvdwkk738.4 cm (6' 1 )08/09/2024 11:20 AM ESTBody Mass Index24.67008/09/2024 11:20 AM EST Plan of Treatment Health MaintenanceDue DateLast DoneCommentsMedicare Annual Wellness (AWV) 1945Depression Wegkrexhx32/17/1957Fall Risk Wcpjmfznr65/17/2010COVID-19 Vaccine ( season), 03/27/2022, 12/27/2021, Additional history existsInfluenza Vaccine (#1)5106/22/2023, 04/07/2023, 03/27/2022, Additional history existsAdult Rywxdqi98/24/81468907/01/2017, 12/14/2013Zoster EghayqvuPdddzhtzn98/03/2019, 06/30/2018, 10/03/2013Pneumococcal Vaccine: 50+ FbfteXumjfelrn76/14/2022, 01/02/2016, 04/14/2014, Additional history existsHIB VaccinesAged OutNo longer eligible based on patient's age to complete this topicHPV VaccinesAged OutNo longer eligible based on patient's age to complete this topicIPV VaccinesAged OutNo longer eligible based on patient's age to complete this topicMeningococcal B VaccineAged OutNo longer eligible based on patient's age to complete this topicMeningococcal VaccineAged OutNo longer eligible based on patient's age to complete this topicRotavirus Vaccines Aged OutNo longer eligible based on patient's age to [place] [address] Care Teams Team MemberRelationshipSpecialtyStart DateEnd Date Gini Burleson MD [address] [place] [phone] [facility] - General07/09/22
--- OUTSIDE RECORDS SUMMARY | 2025-04-07 16:41 | XMS_ITS | Encounter Summary ---
Author Organization [facility] Address [address], [address] [place] [address] Care Team Providers Care Paper Novelty Maker Name Role Phone Gini Burleson APRN - [place] Primary Care Provider Reason for Visit * ReasonOnset DateCommentsRequest for scopolamine patch03/30/2025 Encounter Details DateTypeDepartmentCare Team (Latest Contact Info)Cepumvjejzq27/23/2025Telephone [facility] Care [place] [address] [place] [phone] Gini Burleson, PORTER DOCUMENT CONTROLLER [address] [place] [phone] Request for scopolamine patch Social History Tobacco UseTypesPacks/DayYears UsedDateSmoking Tobacco: KcutxxPfpg91/06/1954 - 06/08/1974Passive Smoke Exposure: PastSmokeless Tobacco: NeverAlcohol Use Standard Drinks/WeekCommentsNot Currently4 (1 standard drink = 0.6 oz pure alcohol)daily/wineAHC UtilitiesAnswerDate RecordedIn the past 12 months has the [place], gas, oil, or water [place] threatened to shut off services in your [...] steady place to sleep or slept in [place] (including now)?No11/16/2023Housing Stability Vital SignAnswerDate RecordedIn the last 12 months, was there a time when you were not able to pay the mortgage or rent on time?No08/15/2024In the past 12 months, how many times have you moved where you were living? At any time in the past 12 months, were you homeless or living in a halfway (including now)?No08/15/2024Food InsecurityAnswerDate RecordedWithin the past 12 months, you worried that your food would run out before you got the money to buy more.Within the past 12 months, the food you bought just didn't last and you didn't have money to get more.Sex and Gender InformationValue Date RecordedSex Assigned at BirthNot on fileLegal UilCmwx8307/18/2012 10:09 AM ESTGender IdentityNot on fileSexual OrientationNot on fileOccupationIndustryJob Start DateJob End DatefarmerNot on fileNot on fileNot on filerailroadNot on file Not on fileNot on filelandlordNot on fileNot on fileNot on fileelectricianNot on fileNot on fileNot on filedocumented as of this encounter Plan of Treatment DateTypeDepartmentCare Team (Latest Contact Info)Ojgmursvggt53/15/2025 10:00 AM ESTOffice Visit [facility] [address] [place] [phone] Gini Burleson, ETHICAL HACKER - DOCUMENT CONTROLLER [address] [place] [address] documented as of this encounter Visit Diagnoses Not on filedocumented in this encounter Additional Health Concerns AssessmentNoted TimeA fall risk assessment has been completed for the patient 05/16/2024 8:30 AM ESTdocumented as of this encounter Care Teams Team MemberRelationshipSpecialtyStart DateEnd Date Gini Burleson, ETHICAL HACKER - DOCUMENT CONTROLLER [address] [place] [address] PCP - General01/09/16documented as of this encounter
--- OUTSIDE RECORDS SUMMARY | 2025-04-07 16:41 | XMS_ITS | Clinical Summary ---
Author Organization [facility] Healthcare Address [address] [place] [address] Care Team Providers Care Spiritual Minister Name Role Phone Olimpia Middleton MD Primary Care Provider [phone] Gini Burleson NP Unavailable [phone] Allergies Active AllergyReactionsCriticalityNoted SdgvVzwdzpvfQnaycplyi92/09/2021 Other Reaction(s): HYPERTENSION, increases BP Other reaction(s): HYPERTENSION BgkyhkjcpUxkxfbwf56/27/7340Ilpwxn07/23/2014 Elevates blood pressure Medications MedicationSigDispense QuantityRefillsLast FilledStart DateEnd DateStatus losartan (Cozaar) 25 MG tablet 04/02/2023ctive tamsulosin (Flomax) 0.4 MG 24 hr capsule Take 0.4 mg by mouth in the morning.Active simvastatin (Zocor) 40 MG tablet 03/03/2023ctive ASPIRIN 81 PO Take 1 tablet by mouth in the morning.Active donepezil (Aricept) 10 MG tablet Indications:Other amnesiaTAKE 1 TABLET BY MOUTH EVERYDAY AT BEDTIME 30 tablet 5Active levothyroxine (Synthroid, Levoxyl) 50 MCG tablet Take 50 mcg by mouth in the morning. 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 60 tablet 1105Active Jfpqqxsjari-Coauhirh-Hxnynnobz 1-0.5-0.075 % solution Indications:Age-related nuclear cataract of both eyesAdminister 1 drop into affected eye(s) in the morning and 1 drop at noon and 1 drop in the evening and 1 drop before bedtime. 10 mL 5Active Melatonin 10 MG chewable tablet Chew 10 mg at bedtimeActive Active Problems ProblemNoted DateDiagnosed DateAge-related nuclear cataract of both eyes 03/02/2025Intraoperative floppy iris syndrome (IFIS)03/02/2025Late onset Alzheimer's disease with behavioral nqfulrpqfks99/21/7650Zituhteafzjw80/04/2025 Valero catheter vxcfxb7208/09/20247972Xlpxhfmiy86/04/2025Postop check01/14/2024MI 24.0-24.9, adult11/16/2023Former xspgiu6111/16/2023erebrovascular accident (CVA) due to stenosis of right carotid akfxtr4711/12/2023OVID-19011/12/2023Impotence 11/12/2023ositive colorectal cancer screening using Cologuard test11/12/2023 Transient ischemic attack involving right internal carotid ptafkh9911/12/2023 Overview (01/26/2025): Last Assessment & Plan: Cardiac risk stratification Continue aspirin and statin Will add Plavix to start now and for 1 month after carotid endarterectomy We will plan on right carotid endarterectomy for symptomatic Moderate right ICA stenosis Behavioral and psychological symptoms of iwqhukuy62/13/2024ementia with aggressive qjxszuvv98/13/2024Gross /27/7524Dftxzoel51/27/2024oor urinary ujxcwt0508/04/2023ilateral carotid artery ejkuyetil00/31/2023arotid stenosis, ndctgyvin82/31/2023Major depressive disorder, recurrent, moderate 10/20/2022HTN (hypertension)11/11/20123336Jtvbuwakahhpme22/06/2013 Encounters DateTypeDepartmentCare DzlgFzgabghohtb13/09/2025Telephone [facility] [address] [place] [phone] Morena Duncan MA 03/09/2025 9:40 AM EDTOffice Visit [facility] [place] [address] [place] [phone] Lissette Treviño [facility] Memory loss (Primary Dx); 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); Insomnia due to medical condition; Dementia with aggressive behavior (HCC)03/09/2025amboo flowsheet [facility] [address] [facility] [place] [phone] Lissette Treviño APRNBOSTON NURS[facility] FOR [facility] 03/09/20257852Iyltjr20/25/2025 10:00 AM EDTOffice Visit [facility] [address] [place] [phone] Ted Putnam, DO Age-related nuclear cataract of both eyes (Primary Dx); Intraoperative floppy iris syndrome (IFIS)03/02/2025amb flowsheet [facility] [address] [place] [phone] Ted Putnam DO 03/02/20256747Lpavfv49/21/2025 3:20 PM EDTOffice Visit [facility] [address] [place] [phone] Guy Salinas MD Dementia with aggressive behavior (HCC) (Primary Dx); Memory loss; 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); Insomnia due to medical pxjvvnkqa86/21/2025amboo flowsheet [facility] [address] [facility] [place] [address] Guy Salinas MD 01/26/20255396Xncrwo35/31/2025Telephone [facility] [place] [facility] [address] [place] [phone] Sarah Melendez, [employer] from Last 3 Months Family History Medical HistoryRelationNameCommentsDiabetesFatherStrokeFatherDementiaMother RelationNameStatusCommentsFatherDeceasedMotherDeceased Social History Tobacco UseTypesPacks/DayYears UsedDateSmoking Tobacco: FormerCigarettesCigars Smokeless Tobacco: Former Tobacco Cessation:Counseling Given: Not Answered Alcohol UseStandard Drinks/WeekCommentsNot Marcidzyp94 (1 standard drink = 0.6 oz pure alcohol)no alcohol for 3 monthsSex and Gender InformationValueDate RecordedSex Assigned at BirthNot on fileLegal RuvJqmn0908/20/2022 7:07 PM EDT Gender IdentityNot on fileSexual OrientationNot on file Last Filed Vital Signs Vital SignReadingTime TakenCommentsBlood Fzcnozcb908/7003/09/2025 10:01 AM EDT Uzfwd1047 10:20 AM EDTTemperature--Respiratory Lsgl9085 10:01 AM EDTOxygen Moiropdnpm54%03/09/2025 10:01 AM EDTInhaled Oxygen Concentration-- Lpxvpy65.1 kg (170 lb)03/09/2025 10:01 AM IHTVevkzg944.4 cm (6' 1 )03/09/2025 10:01 AM EDTBody Mass Index22.431 10:01 AM EDT Plan of Treatment DateTypeDepartmentCare Team (Latest Contact Info)Dbjqdwmulpn28/07/2025 10:15 AM ESTOffice Visit [facility] [address] [place] [address] Ted Putnam, DO [address] [place] [address] 05/12/2025 10:15 AM ESTOffice Visit [facility] [address] [place] [address] Ted Putnam, DO [address] [place] [address] 06/15/2025 10:00 AM ESTOffice Visit [facility] [address] [place] [address] Lissette Treviño, [place] RN-LAUNCH MANAGER [address] [place] [address] Health MaintenanceDue DateLast DoneCommentsDTaP/Tdap/Td Vaccines (1 - Tdap) 2COVID-19 Vaccine ( season)509/03/2024, 03/27/2022, 12/27/2021, Additional history existsInfluenza Vaccine (#1)511/, 04/07/2023, 03/27/2022, Additional history existsPneumococcal Vaccine: 65+ Years Msnvewbdd71/14/2022, 01/02/2016HIB VaccinesAged OutNo longer eligible based on patient's age to complete this topicHPV VaccinesAged OutNo longer eligible based on patient's age to complete this topicHepatitis A VaccinesAged OutNo longer eligible based on patient's age to complete this topicHepatitis B VaccinesAged OutNo longer eligible based on patient's age to complete this topicIPV Vaccines Aged OutNo longer eligible based on patient's age to complete this topic Meningococcal B VaccineAged OutNo longer eligible based on patient's age to complete this topicMeningococcal VaccineAged OutNo longer eligible based on patient's age to complete this topicRotavirus VaccinesAged OutNo longer eligible based on patient's age to complete this topic Procedures Procedure NamePriorityDate/TimeAssociated DiagnosisCommentsIOL BIOMETRY - OU - BOTH MKYHFhamwfg27/25/2025 10:45 AM EDT Age-related nuclear cataract of both eyes from Last 3 Months Results * IOL Biometry - OU - Both Eyes (CPT 21577) (03/02/2025 10:45 AM EDT)Anatomical RegionLateralityModalityHeadOtherSpecimen (Source)Anatomical Location / LateralityCollection Method / VolumeCollection TimeReceived Time Narrative 03/02/2025 10:45 AM EDT Diagnosis: Cataract both eyes (OU) Testing Indication: Performed for preop measurements in the determination of an intraocular lens (IOL) for both eyes (OU) ?? Test Reliability: Good quality both eyes (OU) Interpretation: Good measurements for intraocular lens (IOL) calculation purposes. Calculation made for both eyes (OU). ?? Authorizing ProviderResult TypeResult StatusJoariel ESCAMILLA ULTRASOUND Final Result from Last 3 [place] [address] Care Teams Team MemberRelationshipSpecialtyStart DateEnd Date Olimpia Middleton MD [address] [place] [address] [facility] - [facility] Yoglzcba60/31/23 Gini Burleson NP [address] [place] [address] Referring PhysicianFall [facility] Ysteqdpk17/31/23
--- OUTSIDE RECORDS SUMMARY | 2025-04-07 16:43 | XMS_ITS | CCD ---
Author Organization [facility] ion [facility] Care Team Providers Care Distributor Advertising Material Name Role Phone Candace Giron Primary Care Provider UNKNOWN, PHYSICIAN Referring Unavailable CANDACE GIRON Primary Care Unavailable KENYATTA MORA Attending Unavailable KENYATTA MORA Admitting Unavailable Candace Sevilla APRN, CNP Primary Care Provider CANDACE GIRON Primary Care Physician [phone] Candace Sevilla APRN, CNP Primary Care Provider PORTER Giron Primary Care Provider MD Christiano Ravi Attending Provider [phone] LEÓN, DR AGUERO Admitting Unavailable LEÓN, DR AGUERO Attending Unavailable [facility] [place], [place] ATKINSON Consulting Unavailable LEÓN, DR AGUERO Consulting Unavailable PORTER Giron Primary Care Provider DO Leonides Velasquez Emergency Provider Leonides Velasquez Admitting Unavailable Candace Giron Primary Care Unavailable Leonides Velasquez Attending Unavailable CANDACE GIRON Primary Care Unavailable CAYETANO, MANUELAMED F Admitting Unavailable CAYETANO, MOHAMED F Attending Unavailable АННА SAENZ Consulting Unavailable IRISH SCHRADER Consulting Unavailable JARETH FIGUEROA Attending Unavailable CANDACE GIRON Primary Care Unavailable Candace Sevilla APRN, CNP Primary Care Provider Olimpia Middleton MD Primary Care Provider Candace Giron NP Unavailable Unavailable Primary Care Provider Unavailnatalya e Bree BUENROSTROCandace ROTHMAN Primary Care Provider [place] CUSTOMER SALES REPRESENTATIVE - PROGRAM CONSULTANT, Candace Medina Primary Care Provider Unavailable Primary Care Provider Unavailabl e BREE, CANDACE M Referring Unavailable BREE, CANDACE M Primary Care Unavailable BREE, CANDACE M Referring Unavailable BREE, CANDACE M Primary Care Unavailable MARLYS GARCIA Attending Unavailable BREE, CANDACE M Referring Unavailable BREE, CANDACE M Primary Care Unavailable BREE, CANDACE M Referring Unavailable BREE, CANDACE M Primary Care Unavailable BREE, CANDACE M Referring Unavailable BREE, CANDACE M Primary Care Unavailable BREE, CANDACE M Primary Care Unavailable BREE, CANDACE M Referring Unavailable BREE, CANDACE M Primary Care Unavailable RBEE, CANDACE M Referring Unavailable BREE, CANDACE M Primary Care Unavailable BREE, CANDACE M Referring Unavailable BREE, CANDACE M Primary Care Unavailable BREE, CANDACE M Referring Unavailable BREE, CANDACE M Primary Care Unavailable BREE, CANDACE M Referring Unavailable DAFNE MELENDEZ Attending Unavailable LORENA, ROMERO Purvis Attending Unavailable DAYANARA, MARGARITA Perea Attending Unavailable LISSETTE MUSE Attending Unavailable Olimpia Middleton MD Primary Care Provider Bree BUSINESS PROCESS ENGINEER, Candace M Unavailable BREE, CANDACE Primary Care Unavailable Dayanara, DO Jean Referring Unavailable Dayanara, DO Jean Attending Unavailable Dayanara, DO Jean Admitting Unavailable BREE, CANDACE Primary Care Unavailable Humaira Ragsdale Attending Unavailable BREE, CANDACE Primary Care Unavailable Humaira Ragsdale Attending Unavailable LEÓN, EHAB Attending Unavailable Allergies Allergy ClassificationReported Allergen(s)Allergy TypeDate of OnsetReaction(s) FacilityNSAIDs (2 sources)IbuprofenDrug Asruukh01-39-2647Orcew RushFiles (9 sources)NSAIDsPropensity to adverse reactions to mhjp86-91-1943EajpsAlb[place], [place] (5 sources)Shellfish-Derived ProductsPropensity to adverse reactions to drug 79-09-1729RzsoiAlbion, [place] (20 sources)Ibuprofen; Translations: [ibuprofen]Drug Jjlpezn91-37-9069 hypertension, Other (See Comments)[employer] (1 source)IbuprofenDrug Tqngths87-86-8910WccezdfyoMetrohealth [facility] Repository (20 sources)Memantine; Translations: [MEMANTINE]Drug Efntgpr09-45-7791Rkmlyjtj [facility] Repository (13 sources)NSAIDs; Translations: [NSAIDS (NON-STEROIDAL ANTI-INFLAMMATORY DRUG)]Propensity to adverse reactions to drug (disorder)93-27-4925SjyJdoefh Repository (4 sources)Non-steroidal anti-inflammatory agentPropensity to adverse reactions to zcnm04-97-6355Baj [facility] (15 sources)Non-steroidal anti-inflammatory agentDrug Ehvzmbqcsbp91-86-8613QLCP HealthcareNEGATED: Highlighted row has been ruled out! (4 sources)OtherPropensity to adverse xicvokncm29-51-9000AntwnXiz [facility] Work Phone: Medications Current Medications MedicationDrug Class(es)DatesSig (Normalized)Sig (Original)amoxicillin 500 mg oral capsule (2 sources)Penicillin-class AntibacterialStart: 02-13-2025 End: 01-35-3826hsak 1 capsule by mouth three times dailyamoxicillin (AMOXIL) 500 MG capsule Take 1 capsule by mouth 3 times daily for 7 days For walking pne umonia 21 capsule 02/13/2025 02/20/2025 Activeaspirin 81 mg delayed release oral tablet (20 sources)Platelet Aggregation Inhibitor, Nonsteroidal Anti-inflammatory Drug Start: 03-07-2020 End: 35-25-3193ojna 1 tablet by mouth once dailyaspirin 81 mg Oral EC Tab 81 mg = 1 tab(s), Oral, Daily, Refills(s) 0 Start Date: 01/13/22 Status: Orderedtake 1 tablet by mouth once dailyaspirin 81 MG tablet Indications: Diarrhea Take 1 tablet by mouth daily Activetake 1 tablet by mouth in the morningASPIRIN 81 PO Take 1 tablet by mouth in the morning. Activeazithromycin 250 mg oral tablet (2 sources)Macrolide AntimicrobialStart: 02-13-2025 End: 32-23-3223voci 2 tablets by mouth once daily, then take 1 tablet by mouth once dailyazithromycin (ZITHROMAX Z-SHANTHI) 250 MG tablet Two tablets by mouth the first day then one tablet daily for 4 days walking pneumonia 1 packet 02/13/2025 02/23/2025 Activebrexpiprazole 3 mg oral tablet (9 sources)Atypical AntipsychoticStart: 45-03-1641najh 1 tablet by mouth once dailybrexpiprazole (REXULTI) 3 MG TABS tablet Take 1 tablet by mouth daily For behavior . 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) Take 4 mg by mouth at bedtime 30 tablet 3 01/26/2025 Activedonepezil hydrochloride 10 mg oral tablet (20 sources)Start: 06-14-2024 End: 16-47-9977nzfg 1 tablet by mouth in the morningdonepezil (Aricept) 10 MG tablet Indications: Memory loss Take 1 tablet (10 mg) by mouth in the morning and in the evening 60 tablet 3 01/26/2025 ActiveStart: 44-05-4355vmpu 1 tablet by mouth once daily at bedtimedonepezil 5 mg Tab TAKE 1 TABLET BY MOUTH EVERY DAY AT BEDTIME FOR 30 DAYS Start Date: 12/31/23 Status: OrderedStart: 12-30-2023 End: 26-49-4515Lgeiy: 02-05-2021 End: 53-36-8602qzoj 1 tablet by mouth once dailydonepeziL (ARICEPT) 10 mg tablet Take 1 tablet (10 mg total) by mouth nightly. For memory 12/17/2023 Active doxycycline hyclate 100 mg oral capsule (4 sources)Tetracycline-class DrugStart: 20-67-8741txyujwtxerb hyclate 100 mg Cap Refills(s) 0 Start Date: 01/27/24 Status: OrderedStart: 01-11-2024 End: 36-82-0842prrf 1 capsule by mouth in the morning, then take 1 capsule by mouth at bedtimedoxycycline (VIBRAMYCIN) 100 mg capsule Take 1 capsule (100 mg total) by mouth in the morning and 1capsule (100 mg total) before bedtime. 01/11/2024 01/25/2024 Activeferrous sulfate 325 mg oral tablet (2 sources)Start: 35-84-4447zhvp 1 tablet by mouth once daily at breakfast ferrous sulfate (IRON 325) 325 (65 Fe) MG tablet Indications: Other iron deficiency anemia Take 1 tablet by mouth daily (with breakfast) For iron deficiency anemia 90 tablet 01/18/2024 ActiveFLUoxetine 10 mg oral capsule (20 sources)Serotonin Reuptake InhibitorStart: 35-10-5957bomh 1 capsule by mouth once dailyFLUoxetine (PROZAC) 10 MG capsule Take 1 capsule by mouth daily Wean off 30 capsule 08/15/2024 ActiveStart: 03-18-2022 End: 28-14-1586mdcb 1 capsule by mouth in the morningFLUoxetine (PROzac) 20 mg capsule Indications: generalized anxiety disorder Take 1 capsule (20 mg total) by mouth in the morning. Indications: repeated episodes of anxiety. 10/12/2023 ActiveStart: 96-25-2101eliq 1 capsule by mouth in the morningFLUoxetine (PROZAC) 10 MG capsule Take 1 capsule by mouth in the morning. 90 capsule 1 01/13/2022 Ac tiveStart: 69-49-8204favd 1 capsule by mouth once dailyFLUoxetine (PROZAC) 10 MG capsule Take 1 capsule by mouth daily 30 capsule 1 11/11/2021 ActiveLevsin (8 sources)Start: 30-20-2942Ikubmp Refills(s) 0 Start Date: 12/31/23 Status: OrderedStart: 12-30-2023 End: 13-36-8358eawktwycnmr sulfate (LEVSIN) 0.125 mg tablet,disintegrating Place 1 tablet (125 mcg total) under the tongue every 4 (four) hours as needed (bladder spasms) for up to 7 days. 42 each 12/30/2023 01/06/2024 ActiveStart: 12-29-2023 End: 54-07-1419bbah 1 tablet under the tongue every four hours as needed for muscle voghni716 mcg, sublingual, Every 4 hours PRN, bladder spasms, Starting on Thu12/29/23 at 2053levothyroxine sodium 0.05 mg oral tablet (20 sources)l-ThyroxineStart: 03-58-4793eizl 1 tablet by mouth once daily levothyroxine (SYNTHROID) 50 MCG tablet Indications: Acquired hypothyroidism TAKE 1 TABLET BY MOUTHDAILY ACQUIRED HYPOTHYROID 90 tablet 1 01/20/2025 Active Start: 37-05-8273uuyr 1 tablet by mouth once dailylevothyroxine (SYNTHROID) 50 MCG tablet Indications: Acquired hypothyroidism Take 1 tablet by mouthDaily Acquired hypothyroid 90 tablet 1 07/18/2024 ActiveStart: 79-09-3502gjvxmtxjaadxk 50 mcg (0.05 mg) Tab Refills(s) 0 Start Date: 12/31/23 Status: OrderedStart: 11-16-2023 End: 68-55-7033ngna 1 tablet by mouth once dailylevothyroxine (SYNTHROID) 50 MCG tablet Indications: Acquired hypothyroidism Take 1 tablet by mouthDaily Acquired hypothyroid 90 tablet 1 02/01/2024 Activelisinopril 5 mg oral tablet (14 sources)Angiotensin Converting Enzyme InhibitorStart: 06-09-5518xnmx 25 mg by mouth once daily at bedtimeLisinopril Active 25 MG PO Daily at bedtime March 06, 2020 11:00pmStart: 29-61-5226jmaievypuu 5 mg Tab 5 mg = 1 tab(s), Refills(s) 0 Start Date: 01/14/21 Status: OrderedStart: 23-78-5695mbkw 0.5 tablet by mouth once dailylisinopril (PRINIVIL;ZESTRIL) 20 MG tablet Indications: Pure hypercholesterolemia Take 0.5 tablets by mouth daily 90 tablet 3 08/22/2019 Activelosartan potassium 25 mg oral tablet (20 sources)Angiotensin 2 Receptor BlockerStart: 11-26-9511ezmu 0.5 tablet by mouth once dailylosartan (COZAAR) 25 MG tablet Take 0.5 tablets by mouth daily Hypertension 45 tablet 3 02/13/2025 ActiveStart: 35-42-6489efxdmjur (Cozaar) 25 MG tablet 04/02/2023 Activemelatonin 10 mg extended release oral tablet (14 sources)Start: 54-78-6264Rvunnwuff ER 10 MG TBCR Take by mouth 10/30/2023 ActiveStart: 23-53-5064mhuv 2 tablets by mouth once dailymelatonin 10 mg tablet extended release Take 20 mg by mouth nightly. 10/30/2023 ActiveMelatonin 10 MG chewable tablet Chew 10 mg at bedtime Erwbzt48 hr metoprolol succinate 25 mg extended release oral tablet (3 sources)beta-Adrenergic BlockerStart: 88-57-5313thbk 1 tablet by mouth once dailymetoprolol succinate (TOPROL XL) 25 MG extended release tablet Indications: Pure hypercholesterolemia Take 1 tablet by mouth daily 90 tablet 3 02/02/2018 ActiveNirmatrelvir-Ritonavir (1 source)Start: 37-03-8327Nkclewjcwbrm-Ritonavir (Paxlovid) 300 mg (150 mg x 2)-100 mg tablets,dose pack Active 0 PO .[id number] June 06, 2023 12:00am take TWO 150 mg tablets of nirmatrelvir with ONE 100 mg tablet of ritonavir twice daily for 5 pxexCpzmpxdcqsz-Ifinjfwi-Xhbbquklb 1-0.5-0.075 % solution (4 sources)Start: 87-22-7511Flxsfqovexb-Moxiflox-Bromfenac 1-0.5-0.075 % solution Indications: Age-related nuclear cataract of both eyes Administer 1 drop into affected eye(s) in the morning and 1 drop at noon and 1 drop in the evening and 1 drop before bedtime. 10 mL 1 03/02/2025 ActivepredniSONE 20 mg oral tablet (1 source)Start: 48-25-4007vglo 2 tablets by mouth once daily at mealtime, then take 1 tablet by mouth once dailypredniSONE (DELTASONE) 20 MG tablet Indications: Urticaria Take 2 tabs daily by mouth with food x 5days then 1 tab daily x 5 days For hives 15 tablet 0 07/17/2020 ActiveQUEtiapine 50 mg oral tablet (20 sources)Atypical AntipsychoticStart: 05-32-0485UOEoxqdxkv (SEROQUEL) 50 MG tablet Wean off , decrease to 1 pill 2 x daily x 2 weeks then 1 pill daily in am x 2 weeks then stop 270 tablet 05/16/2024 ActiveStart: 12-30-2023 End: 16-78-0129jamc 100 mg by mouth twice daily for gzhfiqi476 mg, oral, 2 times daily, First dose on Thu12/30/23 at 1315, Look-alike/sound-alike medication - verify indication for use., Indications: generalized anxiety disorderStart: 71-51-9577svbv 2 tablets by mouth in the morning, then take 1 tablet by mouth in the eveningQUEtiapine (SEROQUEL) 50 MG tablet Indications: Outbursts of explosive behavior , Moderate vasculardementia with agitation (HCC) Take 2 pills by mouth in am and 1 pill in the evening for behavioral outbursts 270 tablet 08/15/2024 ActiveStart: 20-04-2125yhhc 1 tablet by mouth in the morning, then take 1 tablet by mouth at bedtimeQUEtiapine (SEROquel) 50 mg tablet Take 1 tablet (50 mg total) by mouth in the morning and 1 tablet(50 mg total) before bedtime. 07/17/2023 ActiveStart: 71-51-4387oyer 50 mg by mouth once daily at bedtimeQuetiapine Active 50 MG PO Daily at bedtime June 06, 2023 12:00am Start: 04-02-2023 End: 13-35-3868kygj 1 tablet by mouth at bedtimeQUEtiapine (SEROquel) 25 MG tablet TAKE 1 TABLET BY MOUTH AT BEDTIME FOR DYSTHYMIA 04/02/2023 01/26/2025 Discontinued (Therapy completed)sildenafil 100 mg oral tablet (20 sources)Phosphodiesterase 5 InhibitorStart: 55-18-2238orfc 1 tablet by mouth once daily as neededsildenafil (VIAGRA) 100 MG tablet TAKE 1 TABLET BY MOUTH DAILY NEEDED FOR ERECTILE DYSFUNCTION 1HOUR BEFORE SEXUAL ACTIVITY 04/15/2022 ActiveStart: 33-51-8267iawr 75 mg by mouth once dailySildenafil Active 75 MG PO Daily March 06, 2020 11:00pmStart: 38-99-0143cnrh 2.5 tablets by mouth once dailysildenafil (REVATIO) 20 MG tablet Take 2.5 tablets by mouth daily 30 tablet 5 05/15/2016 Activesimvastatin 40 mg oral tablet (20 sources)HMG-CoA Reductase InhibitorStart: 58-58-5379amhn 0.5 tablet by mouth once dailysimvastatin (ZOCOR) 80 MG tablet Indications: Pure hypercholesterolemia Take 0.5 tablets by mouth nightly 90 tablet 3 08/06/2020 ActiveStart: 07-17-8395upibuijadcd (Zocor) 40 MG tablet 03/03/2023 ActiveStart: 23-87-8983ocwg 1 tablet by mouth once dailysimvastatin (ZOCOR) 80 MG tablet Indications: Pure hypercholesterolemia Take 1 tablet by mouth nightly 90 tablet 3 05/19/2018 Activetamsulosin hydrochloride 0.4 mg oral capsule (20 sources)alpha-Adrenergic BlockerStart: 03-07-2020 End: 10-83-6182eawe 1 capsule by mouth once daily at bedtimetamsulosin (FLOMAX) 0.4 MG capsule Take 1 capsule by mouth daily At bedtime 90 capsule 3 10/12/2023 Activetake 1 capsule by mouth every twenty-four hours in the morningtamsulosin (Flomax) 0.4 MG 24 hr capsule Take 0.4 mg by mouth in the morning. Active thiamine 100 mg oral tablet (4 sources)Start: 22-94-0481mkmt 1 tablet by mouth once dailyvitamin B-1 (THIAMINE) 100 MG tablet Indications: Dizziness , Mild alcohol use disorder, in controlled environment , Smooth tongue Take 1 tablet by mouth daily 14 tablet 0 08/22/2019 ActivetraZODone hydrochloride 50 mg oral tablet (17 sources)Serotonin Reuptake InhibitorStart: 95-28-9588uryz 0.5 tablet by mouth in the morning, then take 1 tablet by mouth at bedtimetraZODone (DESYREL) 50 MG tablet Take 1/2 pill by mouth in am and 1 pill at bedtime for Behavior out bursts 45 tablet 5 02/13/2025 ActiveStart: 05-16-2024 End: 80-21-3977mxpf 1 tablet by mouth in the morningtraZODone (Desyrel) 50 MG tablet Indications: Insomnia due to medical condition Take 1 tablet (50 mg) by mouth in the morning and 1 tablet (50 mg) before bedtime. 60 tablet 11 01/26/2025 Active Completed/Discontinued Medications MedicationDrug Class(es)DatesSig (Normalized)Sig (Original)acetaminophen 500 mg oral tablet (1 source)Start: 12-29-2023 End: 87-85-8005axhk 1 tablet by mouth every six hours as needed1,000 mg, oral, Every 6 hours PRN, pain - pain rated 1-4, Starting on Thu12/29/23 at 1108 acetaminophen 325 mg / HYDROcodone bitartrate 5 mg oral tablet (3 sources)Opioid AgonistStart: 03-13-2020 End: 85-55-9986olxe 1 tablet by mouth every four to six hoursHydrocodone- Acetaminophen ([place]) 5-325 mg tablet Discontinued 1 - 2 TAB PO EVERY 4-6 HOURS 14 March 13, 2020 April 15, 2022 7:23amcalcium chloride 0.0014 meq/ml / potassium chloride 0.004 meq/ml / sodium chloride 0.103 meq/ml / sodium lactate 0.028 meq/ml injectable solution (1 source)Start: 12-29-2023 End: 67-61-5747fpmw 50 mL intravenously every hour50 mL/hr, intravenous, Continuous, Starting on Thu12/29/23 at 1115, For 10 hoursCalcium Gluconate (1 source)Start: 12-29-2023 End: 84-80-7919pxbvstg gluconate IVPB 1000 mg/50 mL (20 mg/mL premix)clopidogrel 75 mg oral tablet (11 sources)P2Y12 Platelet InhibitorStart: 11-12-2023 End: 57-89-6029diyu 1 tablet by mouth in the morningclopidogreL (PLAVIX) 75 mg tablet Indications: Transient ischemic attack involving right internal carotid artery Take 1 tablet (75 mg total) by mouth in the morning. 30 tablet 12 11/12/2023 01/28/2024 Discontinued (Therapy completed)ibuprofen 600 mg oral tablet (3 sources)Nonsteroidal Anti-inflammatory DrugStart: 03-13-2020 End: 56-18-3049Apctmrmxh Discontinued 600 MG PO EVERY 4-6 HOURS March 12, 2020 11:00pm April 1527:23am do not exceed 4 doses in a 24 hour periodlidocaine hydrochloride 0.02 mg/mg topical gel (1 source)Antiarrhythmic, Amide Local AnestheticStart: 12-29-2023 End: Application, urethral, Once, On Thu12/29/23 at 1845, For 1 dose magnesium sulfate IVPB 2000 mg/50 mL in iso-osmotic water (40 mg/mL premix) (1 source)Start: 12-29-2023 End: 57-14-1139qwmfpraom sulfate IVPB 2000 mg/50 mL in iso-osmotic water (40 mg/mL premix)OLANZapine 2.5 mg oral tablet (6 sources)Atypical AntipsychoticStart: 11-10-2024 End: 95-89-1694fcen 2 tablets by mouth at bedtimeOLANZapine (ZyPREXA) 2.5 MG tablet Take 5 mg by mouth at bedtime 11/10/2024 01/26/2025 Discontinued(Therapy completed)2 ml ondansetron 2 mg/ml injection (1 source)Serotonin-3 Receptor AntagonistStart: 12-29-2023 End: 21-57-2376kukn 4 mg intravenously every eight hours as needed for nausea4 mg, intravenous, Every 8 hours PRN, nausea, Starting on Thu12/29/23 at 1108, Administer over 2-5 minutes.phenylephrine (JESSIKA-SYNEPHRINE) 20 mg in sodium chloride 0.9 % 250 mL (0.08 mg/mL) infusion (1 source)Start: 12-29-2023 End: .5-2.5 mcg/kg/min 83.4 kg (31.275-156.375 mL/hr, rounded to 31.3-156.4 mL/hr), intravenous, Continuous, Starting on Thu12/29/23 at 1230, Preferred central line administration. Start at 0.5 mcg/kg/min. Titrate by 0.2 mcg/kg/min every 5 min to achieve SBP greater than 110. VESICANT (RED), Indication: Hypotension, Sequence of Pressors - Use this medication: First, Wean Sequence: Wean FirstPotassium Chloride (1 source)Start: 12-29-2023 End: 18-55-5236onhdtjyfx chloride (K-TAB,KLOR-CON) CR tablet 20-50 mEqpotassium chloride IVPB 10 mEq/50 mL in water (0.2 mEq/mL premix) (1 source)Start: 12-29-2023 End: 52-87-5088fzvrjnoqc chloride IVPB 10 mEq/50 mL in water (0.2 mEq/mL premix) rosuvastatin calcium 10 mg oral tablet (1 source)HMG-CoA Reductase InhibitorStart: 12-29-2023 End: 11-04-3035wgpu 10 mg by mouth once daily10 mg, oral, Nightly, First dose on Thu12/29/23 at 2200, Look-alike/sound-alike medication - verifyindication for use.sodium chloride 0.154 meq/ml irrigation solution (5 sources)Start: 12-29-2023 End: ,000 mL, irrigation, Continuous, Starting on Thu12/29/23 at 2200, Wean CBI to pinkStart: 12-29-2023 End: mL/hr, intra-arterial, Continuous, Starting on Thu12/29/23 at 1200Start: 12-29-2023 End: mL, intravenous, Every 12 hours scheduled, First dose on Thu12/29/23 at 1115Start: 12-29-2023 End: 27-29-9728006 mL, intravenous, at 492 mL/hr, Administer over 61 Minutes, Once, On Thu12/29/23 at 1115, For 1 dose, Give fluid bolus IV, if systolic blood pressure remains less than 100 after 30 minutes call physician.Start: 12-29-2023 End: mL, intravenous, As needed, line care, before and after each intermittent use, Starting on Thu12/29/23 at 1108sodium phosphate 20 mmol in sodium chloride 0.9 % 250 mL IVPB (1 source)Start: 12-29-2023 End: 20-33-7228utusnv phosphate 20 mmol in sodium chloride 0.9 % 250 mL IVPB Problems Active Problems Problem ClassificationProblemDateDocumented DateEpisodic/ChronicAcute cerebrovascular disease (18 sources)Cerebrovascular accident due to right carotid artery stenosis; Translations: [Cerebral infarction due to unspecified occlusion or stenosis of right carotid arteries]Onset: [id number]-ldvrydj disorders (2 sources)Alcohol abuse; Translations: [Alcohol abuse, uncomplicated]Chronic Cardiac dysrhythmias (1 source)Cardiac arrhythmia, unspecified; Translations: [Cardiac arrhythmia, unspecified]Onset: 17-14-9628TglehqvXydvftim (6 sources)Bilateral age-related nuclear cataracts; Translations: [Age-related nuclear cataract, bilateral]Onset: 219900-75-9002KbvzamyIubfxzuexsxz of device; implant or graft (1 source)Complication associated with genitourinary device; Translations: [Unspecified complication of genitourinary prosthetic device, implant and graft, initial encounter]Onset: 29-08-3217FnwdmwonRfjgiizm, dementia, and amnestic and other cognitive disorders (20 sources)Behavioral and psychological symptoms of dementia; Translations: [Behavioral and psychological symptoms of dementia]Onset: ChronicDiseases of mouth; excluding dental (1 source)Atrophy of tongue papillae; Translations: [Smooth tongue]Episodic Disorders of lipid metabolism (20 sources)Pure hypercholesterolemia; Translations: [Hyperlipidemia]Onset: 396516-05-6932PftcppyX Codes: Fall (2 sources)Fall; Translations: [Unspecified fall, initial encounter]Episodic Essential hypertension (20 sources)Essential hypertension; Translations: [Hypertensive disorder]Onset: 017241-26-7340TgxbetqMaqhomuyrvkfu symptoms and ill-defined conditions (2 sources)Urinary catheter in gqza00-12-8518QwphvrnDzzrdxkz; including migraine (1 source)Headache; including migraine; Translations: [Headache, unspecified] Onset: 04-06-7260Szpvl valve disorders (2 sources)Nonrheumatic aortic (valve) insufficiency; Translations: [Nonrheumatic aortic (valve) insufficiency]Onset: 78-27-0962ZhhjgosWdrsvbwdmst of prostate (20 sources)Benign prostatic hypertrophy with outflow obstruction; Translations: [Benign prostatic hyperplasia with lower urinary tract symptoms]Onset: 22-52-8729IhrhmnsBknhstlnykaau mental health disorders (6 sources)Male erectile disorder; Translations: [Erectile dysfunction]Onset: 07-40-4999IotolamMuir disorders (20 sources)Moderate recurrent major depression; Translations: [Major depressive disorder, recurrent, moderate]Onset: 510279-65-5958MclxzbeEjrblaxtxhj deficiencies (2 sources)Vitamin D deficiency; Translations: [Vitamin D deficiency, unspecified]Onset: 225968-34-5216CdlatdvUivpynhif or stenosis of precerebral arteries (20 sources)Bilateral stenosis of carotid arteries; Translations: [Occlusion and stenosis of bilateral carotid arteries]Onset: 71-18-5470WnuaxheNhaurgtumryoju (7 sources)Ijuwucaad85-59-5732KvjwzwlWzmoo diseases of kidney and ureters (2 sources)Urinary tract obstruction; Translations: [Other obstructive and reflux uropathy]Onset: 32-67-3908ErybstavCcast eye disorders (6 sources)Intraoperative floppy iris syndrome; Translations: [Floppy iris syndrome]Onset: 348125-36-8864RxkarctrTqitr gastrointestinal disorders (1 source)Other fecal abnormalities; Translations: [Abnormal feces]04-15-2022 EpisodicOther hereditary and degenerative nervous system conditions (6 sources)Impaired cognition; Translations: [Mild cognitive impairment, so stated]Onset: 469451-67-0623YamxfatGumbn hereditary and degenerative nervous system conditions (1 source)Mild cognitive impairment, so stated; Translations: [Mild cognitive impairment of uncertain or unknown etiology]Onset: 34-51-4503MyeostjBofot male genital disorders (14 sources)Aqyxwsqgj42-92-1219TcuflydPgktz male genital disorders (18 sources)Male erectile dysfunction, unspecified; Translations: [Impotence of organic origin]Onset: 017935-70-5036LkfxjpqHdkqd male genital disorders (2 sources)Hydrocele of testis; Translations: [Hydrocele, unspecified]Onset: 14-66-3389GgoaklquSvpsu nervous system disorders (1 source)Impaired kitlwckfb71-75-6231OkvggnvtBmwumoqrt (except that caused by tuberculosis or sexually transmitted disease) (4 sources)Community acquired pneumonia; Translations: [Pneumonia, unspecified organism]Onset: 126751-85-3964QblivipsUguepnkh codes; unclassified (4 sources)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; Translations: [Insomnia due to medical condition]35-44-8396VbftxubXynguxhb codes; unclassified (1 source)Poor short-term memory ; Translations: [Other amnesia]EpisodicResidual codes; unclassified (3 sources)Device in situ; Translations: [Presence of other specified devices] Onset: 45-54-0950BqvoukccOxuohgkl codes; unclassified (6 sources)Amnesia; Translations: [Other amnesia]42-00-3879PoetogyjUovixnlf codes; unclassified (1 source)Pain, unspecified; Translations: [Pain, unspecified]Onset: 02-01-2025 EpisodicSpondylosis; intervertebral disc disorders; other back problems (1 source)Acute low back pain; Translations: [Acute midline low back pain without sciatica]EpisodicThyroid disorders (2 sources)Acquired hypothyroidism; Translations: [Hypothyroidism, unspecified] Onset: 121380-15-7383KzrtgylXyfwoaani cerebral ischemia (19 sources)Carotid territory transient ischemic attack; Translations: [Carotid artery syndrome (hemispheric)]Onset: 492417-42-4955ImbhxffAxkcttkxwgfe (2 sources)Patient encounter status; Translations: [Screening for thyroid disorder]Unclassified (5 sources)Body mass index 20-24 - mgysyc85-34-4528Cywulncwwwal (1 source)Cough, unspecified; Translations: [Cough, unspecified]Onset: 32-83-6094Abhneqwkjayo (1 source)CAROTID STENOSIS RIGHTOnset: 33-83-7436Ubfwyntrrtfo (1 source)Behavioral and psychological symptoms of -15-8017 Unclassified (1 source)1 yr follow up carotid test doneOnset: 37-91-2150Gfbhzxigyfzc (1 source)Vascular dementia, moderate, with agitation (HCC); Translations: [Vascular dementia, moderate, withagitation (HCC)]Onset: 08-15-2024 Past or Other Problems Problem ClassificationProblemDateDocumented DateEpisodic/ChronicAttention- deficit, conduct, and disruptive behavior disorders (2 sources)Other symptoms and signs involving appearance and behavior; Translations: [Other general symptoms]Onset: 136319-84-0684Xfsexjqj Conditions associated with dizziness or vertigo (6 sources)Dizziness; Translations: [Dizziness and giddiness]Onset: 06-06-2023 EpisodicDiabetes mellitus without complication (2 sources)Impaired fasting glycemia; Translations: [Impaired fasting glucose] Onset: 140956-79-7514TyyqgervDeeqzbbryyigt symptoms and ill-defined conditions (20 sources)Shivam hematuria; Translations: [Nocturia]Onset: 519823-49-3433 EpisodicInflammatory conditions of male genital organs (12 sources)Epididymitis; Translations: [Epididymitis]Onset: 88-05-8070Eemdmwvk Mood disorders (6 sources)Mood disordersOnset: 996627-13-3927Uicri aftercare (12 sources)Surgical follow-up; Translations: [Encounter for follow-up examination after completed treatment for conditions other than malignant neoplasm]Onset: 959950-43-4027OmvrtxjoVefnq gastrointestinal disorders (20 sources)Stool DNA-based colorectal cancer screening positive; Translations: [Other fecal abnormalities]Onset: 535310-39-6879KfksqbyjXqvvr male genital disorders (11 sources)Disorder of male genital organ; Translations: [Other specified disorders of the male genital organs]Onset: 70-17-6054WubxjaxeSflwh screening for suspected conditions (not mental disorders or infectious disease) (4 sources)Patient encounter status; Translations: [Encounter for screening for malignant neoplasm of prostate]Onset: 17-75-0326MwlhdgeuKparsnsj codes; unclassified (8 sources)Body mass index 20-24 - normal; Translations: [Body mass index (BMI) 24.0-24.9, adult]Onset: 062244-51-3554WxsgnovdIhctxyab codes; unclassified (8 sources)Urinary catheter in situ; Translations: [Presence of other specified devices]Onset: 490111-66-0948GrdhxrlvPrpczqbaq and history of mental health and substance abuse codes (13 sources)Ex-smoker; Translations: [Personal history of nicotine dependence] Onset: 282232-72-8848YurugtovPswrvfxvieko (4 sources)Onset: Viral infection (19 sources)Disease caused by 2019-nCoV; Translations: [COVID-19]Onset: 178298-29-8851Xluerowf Results Test NameValueInterpretationReference YoggjHolwcxhi21an [id number] with patient's and informed her no afib per Dr. Cintron. Apt with Dr. Jean was canceled. I told Mrs. Penn to contact our office if anything changes. She verbalized understanding.[facility] 36Patient's just stopped by the office to make you aware that he had a pre-op EKG yesterday. They were told it showed afib. I have scanned it into comedian for your review. Can you please review and give recommendations? Thanks! [facility]2025 Diagnosis: Cataract both eyes (OU) Testing Indication: Performed for preop measurements in the determination of an intraocular lens (IOL) for both eyes (OU) Test Reliability: Good quality both eyes (OU) Interpretation: Good measurements for intraocular lens (IOL) calculation purposes. Calculation made for both eyes (OU).[facility] Radiology Study observation (narrative)[facility] with Auto Differential on 56-31-2568Tqvcyfejw (Bld) [#/Vol]0.02 10*3/uLBon [facility] Basophils/100 WBC (Bld)0 %0 - 2 %[facility] HealthEosinophils (Bld) [#/Vol]0.04 10*3/uLBon Secours Mercy HealthEosinophils/100 WBC (Bld)1 %0 - 5 % [facility] HealthErythrocyte distribution width (RBC) [Ratio]12.9 %12.1 - 15.2 %[facility] HealthHematocrit (Bld) [Volume fraction]40.1 %Low41.0 - 53.0 %[facility] HealthHemoglobin (Bld) [Mass/Vol]13.5 g/dL13.5 - 17.5 g/dLBon Secours Mercy HealthImmature granulocytes (Bld) [#/Vol]0.00 10*3/uLBon Secours Mercy HealthImmature granulocytes/100 WBC (Bld)0 %0 - 5 %[facility] HealthInterpretation and review of laboratory resultsAbnormalBon Secours Mercy HealthLymphocytes/100 WBC (Bld)23 %13 - 44 %[facility] Lymphocytes/100 WBC (Bld)1.61 %[facility] HealthH (RBC) [Entitic mass] 31.9 pg26.0 - 34.0 pgBon Secours Mercy HealthHC (RBC) [Mass/Vol]33.7 g/dL31.0 - 37.0 g/dLBon Secours Mercy HealthMCV (RBC) [Entitic vol]94.8 fL80.0 - 100.0 fL [facility] HealthMonocytes/100 WBC (Bld)10 %High5 - 9 %[facility] HealthMonocytes/100 WBC (Bld)0.73 %[facility] - DanvilleNeutrophils/100 WBC (Bld)66 %39 - 75 %[facility] HealthPlatelet mean volume (Bld) [Entitic vol]9.1 fL6.0 - 12.0 fLHenrico Doctors' Hospital—[facility] HealthPlatelets (Bld) [#/Vol]246 10*3/uLBon [facility]South [facility] HealthRBC (Bld) [#/Vol]4.23 10*6/uLLow4.50 - 5.90 m/uL [facility] - DanvilleSegmented neutrophils/100 WBC (Bld)4.59 %[facility] DanvilleWBC other (Bld) [#/Vol]7.0Bon [facility] ServicesCBC with Diffon [id number]. Basophil0.02 k/uLNormal0.00-0.20S[facility] HospitalComment on above:Performed By: #### VD25, LIPR #### [facility] [employer] [address] [place] [address] Boarding House Cook: Arnav Barnes MD #### ISATU WELSH, CDP #### [facility] [address] [place] [address] Boarding House Cook: Snow Loyola.Imm.Granulocyte0.00 k/uLNormal0.00-0.30S[facility] Memorial HospitalComment on above:Performed By: #### VD25, LIPR #### [facility] [employer] [facility] [place] [address] Boarding House Cook: Arnav Barnes MD #### ISATU WELSH, CDP #### [facility] [address] [place] [address] Boarding House Cook: Snow Loyola.Neutrophil (Seg)4.59 k/uLNormal2.1-6.5[facility] HospitalComment on above:Performed By: #### VD25, LIPR #### [address] [id number] Boarding House Cook: Arnav Barnes MD #### MG, CP, CDP #### [facility] [address] [place], [place] [id number] Boarding House Cook: Анна Biswas MDBasophils/100 WBC (Bld)0 %Normal0-2MMain Campus Medical CenterComment on above:Performed By: #### VD25, LIPR #### [address] [address] Boarding House Cook: Arnav Barnes MD #### MG, CP, CDP #### [facility] [address] [place], [place] [phone] Boarding House Cook: Анна Biswas MDEosinophils (Bld) [#/Vol]0.04 10*3/uLNormal 0.00-0.40S[facility] HospitalComment on above:Performed By: #### VD25, LIPR #### [address] [address] Boarding House Cook: Arnav Barnes MD #### MG, CP, CDP #### [facility] [address] [place] [address] Boarding House Cook: Анна Biswas MDEosinophils/100 WBC (Bld)1 %Normal0-5[facility] on above:Performed By: #### VD25, LIPR #### [address] [address] Boarding House Cook: Arnav Barnes MD #### MG, CP, CDP #### [facility] [address] [place], [place] [id number] Boarding House Cook: Анна Biswas MDErythrocyte distribution width (RBC) [Ratio]12.9 % Qpzoxd49.1-15.2MMain Campus Medical CenterComtrinity health [facility] on above:Performed By: #### VD25, LIPR #### [address] [address] Boarding House Cook: Arnav Barnes MD #### MG, CP, CDP #### [facility] [address] [place] [address] Boarding House Cook: Анна Biswas MDHematocrit (Bld) [Volume fraction]40.1 %Low 41.0-53.0[facility] on above:Performed By: #### VD25, LIPR #### [address] [address] Boarding House Cook: Arnav Barnes MD #### MG, CP, CDP #### [facility] [address] [place] [address] Boarding House Cook: Анна Biswas MDHemoglobin (Bld) [Mass/Vol]13.5 g/dLNormal 13.5-17.5[facility] on above:Performed By: #### VD25, LIPR #### [address] [address] Boarding House Cook: Arnav Barnes MD #### MG, CP, CDP #### [facility] [address] [place] [address] Boarding House Cook: Анна Biswas MDImmature granulocytes/100 WBC (Bld)0 %Normal0-5 [facility] on above:Performed By: #### VD25, LIPR #### [address] [address] Boarding House Cook: Arnav Barnes MD #### MG, CP, CDP #### [facility] [address] [place] [address] Boarding House Cook: Анна Biswas MDLymphocytes (Bld) [#/Vol]1.61 10*3/uLNormal 1.00-4.80Mer[facility] Dakotah HospitalComment on above:Performed By: #### VD25, LIPR #### [address] [id number] Boarding House Cook: Arnav Barnes MD #### MG, CP, CDP #### [facility] [address] [place], [place] [phone] Boarding House Cook: Анна Biswas MDLymphocytes/100 WBC (Bld)23 %Cucfel54-29QseyoShelby Memorial HospitalComment on above:Performed By: #### VD25, LIPR #### [address] [phone] Boarding House Cook: Arnav Barnes MD #### MG, CP, CDP #### [facility] [address] [place] [address] Boarding House Cook: CHANTAL Loyola (RBC) [Entitic mass]31.9 ndRhfwca50.0-34.0 [facility] HospitalComment on above:Performed By: #### VD25, LIPR #### [address] [id number] Boarding House Cook: Arnav Barnes MD #### MG, CP, CDP #### [facility] [address] [place] [address] Boarding House Cook: CHANTAL LoyolaC (RBC) [Mass/Vol]33.7 g/kFHvpntt92.0-37.0[facility] HospitalComment on above:Performed By: #### VD25, LIPR #### [address] [id number] Boarding House Cook: Arnav Barnes MD #### MG, CP, CDP #### [facility] [address] [place] [address] Boarding House Cook: Анна Sturtz, MDMCV (RBC) [Entitic vol]94.8 bZGyrwub97.0-100.0 [facility] on above:Performed By: #### VD25, LIPR #### [address] [address] Boarding House Cook: Arnav Barnes MD #### MG, CP, CDP #### [facility] [address] [place] [address] Boarding House Cook: Анна Biswas MDMonocytes (Bld) [#/Vol]0.73 10*3/uLNormal0.00-1.00 [facility] HospitalComment on above:Performed By: #### VD25, LIPR #### [place] [id number] Boarding House Cook: Arnav Barnes MD #### MG, CP, CDP #### [facility] [address] [place] [address] Boarding House Cook: MORENO Loyolaonocytes/100 WBC (Bld)10 %High5-9S[facility] Memorial HospitalComment on above:Performed By: #### VD25, LIPR #### [place] [address] Boarding House Cook: Arnav Barnes MD #### MG, CP, CDP #### [facility] [address] [place] [address] Boarding House Cook: Анна Biswas MDNeutrophil (Seg)66 %Vgxllv79-41JtnnuOhioHealth [facility] Hospital on above:Performed By: #### VD25, LIPR #### [place] [address] Boarding House Cook: Arnav Barnes MD #### MG, CP, CDP #### [facility] [address] [place] [address] Boarding House Cook: Анна Sturtz, MDPlatelet mean volume (Bld) [Entitic vol]9.1 fL Normal6.0-12.0[facility] HospitalComtrinity health [facility] hospital on above:Performed By: #### VD25, LIPR #### [address] [address] Boarding House Cook: Arnav Barnes MD #### MG, CP, CDP #### [facility] [address] [place], [place] 2394190 Boarding House Cook: Kolby Loyola (Bld) [#/Vol]246 10*3/bXTevjyc270-904 [facility] HospitalComment on above:Performed By: #### VD25, LIPR #### [address] [address] Boarding House Cook: Arnav Barnes MD #### MG, CP, CDP #### [facility] [address] [place] [address] Boarding House Cook: ANDREA LoyolaBC (Bld) [#/Vol]4.23 10*6/uLLow4.50-5.90S[facility] HospitalComtrinity health [facility] on above:Performed By: #### VD25, LIPR #### [address] [address] Boarding House Cook: Arnav Barnes MD #### MG, CP, CDP #### [facility] [address] [place] [address] Boarding House Cook: Анна Biswas MDWBC (Bld) [#/Vol]7.0 10*3/uLNormal3.5-11.0[facility] on above:Performed By: #### VD25, LIPR #### [address] [address] Boarding House Cook: Arnav Barnes MD #### MG, CP, CDP #### [facility] [address] [place], [place] 9115490 Boarding House Cook: BRENDEN Loyolaomp Metabolic Profon [id number] [Mass/Vol] 4.2 g/dLNormal3.5-5.2Mparkwood hospitaly East Mississippi State HospitalComment on above:Performed By: #### VD25, LIPR #### [address] [id number] Boarding House Cook: Arnav Barnes MD #### MG, CP, CDP #### [facility] [address] [place], [place] [phone] Boarding House Cook: Анна Biswas MDAlbumin/Glob Ratio1.8Fjokml2.0-2.5S[facility] HospitalComment on above:Performed By: #### VD25, LIPR #### [address] [phone] Boarding House Cook: Arnav Barnes MD #### MG, CP, CDP #### [facility] [address] [place], [place] 2078890 Boarding House Cook: Carmina Loyola Phos55 U/XLtppyb99-154AihijShelby Memorial HospitalComment on above:Performed By: #### VD25, LIPR #### [address] [phone] Boarding House Cook: Arnav Barnes MD #### MG, CP, CDP #### [facility] [address] [place], [place] [phone] Boarding House Cook: Анна Biswas MDALT [Catalytic activity/Vol]24 U/LNormal5-41[facility] HospitalComtrinity health [facility] on above:Performed By: #### VD25, LIPR #### [facility] [employer] [address] [place] [address] Boarding House Cook: Arnav Barnes MD #### MG, CP, CDP #### [facility] [address] [place], [place] 8268790 Boarding House Cook: Radha Loyola gap [Moles/Vol]9 mmol/LNormal9-17[facility] on above:Performed By: #### VD25, LIPR #### [place] [address] [place], [place] 7027608 Boarding House Cook: Arnav Barnes MD #### MG, CP, CDP #### [facility] [address] [place], [place] 12694[address] Boarding House Cook: Анна Biswas MDAST [Catalytic activity/Vol]20 U/LNormal<40[facility] HospitalComtrinity health [facility] on above:Performed By: #### VD25, LIPR #### [address] [id number] Boarding House Cook: Arnav Barnes MD #### MG, CP, CDP #### [facility] [address] [place], [place] 60735[address] Boarding House Cook: Анна Biswas MDBilirubin [Mass/Vol]0.6 mg/dLNormal0.3-1.2MMain Campus Medical CenterComtrinity health [facility] hospital on above:Performed By: #### VD25, LIPR #### [address] [id number] Boarding House Cook: Arnav Barnes MD #### MG, CP, CDP #### [facility] [address] [place], [place] [phone] Boarding House Cook: BRENDEN Loyolaalcium [Mass/Vol]9.6 mg/dLNormal8.6-10.4[facility] on above:Performed By: #### VD25, LIPR #### [address] 8063008 Boarding House Cook: Arnav Barnes MD #### MG, CP, CDP #### [facility] [address] [place], [place] 3238090 Boarding House Cook: BRENDEN Loyolahloride [Moles/Vol]104 mmol/RUphjjd61-621CjnhuShelby Memorial HospitalComment on above:Performed By: #### VD25, LIPR #### [address] 7792808 Boarding House Cook: Arnav Barnes MD #### MG, CP, CDP #### [facility] [address] [place], [place] 6834090 Boarding House Cook: BRENDEN LoyolaO2 [Moles/Vol]28 mmol/TStflxp36-02ErxtxShelby Memorial HospitalComment on above:Performed By: #### VD25, LIPR #### [address] [phone] Boarding House Cook: Arnav Barnes MD #### , CP, CDP #### [facility] [address] [place], [place] 47330[address] Boarding House Cook: BRENDEN Loyolareatinine [Mass/Vol]0.9 mg/dLNormal0.7-1.2MMain Campus Medical CenterComtrinity health [facility] hospital on above:Performed By: #### VD25, LIPR #### [address] [phone] Boarding House Cook: Arnav Barnes MD #### , CP, CDP #### [facility] [address] [place] [address] Boarding House Cook: Анна Biswas MDGFR/1.73 sq M.predicted among non-blacks MDRD (S/P/Bld) [Vol rate/Area]87 mL/min/{1.73_m2}Normal>60[facility] Comment on above:Result Comment: These results are not intended for [...] or following therapy that affects renal tubular secretion.Performed By: #### VD25, LIPR #### [address] 8076108 Boarding House Cook: Arnav Barnes MD #### MG, CP, CDP #### [facility] [address] [place], [place] 1874290 Boarding House Cook: Анна Biswas MDGlucose [Mass/Vol]112 mg/qLQoya57-92AbwykMain Campus Medical CenterComment on above:Performed By: #### VD25, LIPR #### [address] 5367508 Boarding House Cook: Arnav Barnes MD #### MG CP, CDP #### [facility] [address] [place], [place] 53698[address] Boarding House Cook: Анна Biswas MDPotassium [Moles/Vol]4.0 mmol/LNormal3.7-5.3MMain Campus Medical CenterComment on above:Performed By: #### VD25, LIPR #### [address] 2665708 Boarding House Cook: Arnav Barnes MD #### MG CP, CDP #### [facility] [address] [place], [place] 00368[address] Boarding House Cook: Анна Biswas MDProtein [Mass/Vol]7.4 g/dLNormal6.4-8.3MMain Campus Medical CenterComment on above:Performed By: #### VD25, LIPR #### [address] [phone] Boarding House Cook: Arnav Barnes MD #### MG CP, CDP #### [facility] [address] [place] [address] Boarding House Cook: ZAN Loyolaodium [Moles/Vol]141 mmol/WMdhqvt583-000KcqjnShelby Memorial HospitalComment on above:Performed By: #### VD25, LIPR #### [facility] [address] [place], [place] 7716208 Boarding House Cook: Arnav Barnes MD #### MG, CP, CDP #### [facility] [address] [place] [address] Boarding House Cook: Анна Biswas MDUrea nitrogen [Mass/Vol]29 mg/dLHigh8-23[facility] HospitalComment on above:Performed By: #### VD25, LIPR #### [facility] [address] [place], [place] 5429608 Boarding House Cook: Arnav Barnes MD #### MG, CP, CDP #### [facility] [address] [place] [address] Boarding House Cook: BRENDEN Loyolaomprehensive Metabolic Panelon 26-47-5541Xkbizhl [Mass/Vol]4.2 g/dL3.5 - 5.2 g/dLBon [facility] HealthAlbumin/Globulin [Mass ratio]1.3 {ratio}1.0 - 2.5[facility] Centery HealthALP [Catalytic activity/Vol]55 U/L40 - 129 U/LBon Secours [facility]'S Medical Centery HealthALT [Catalytic activity/Vol]24 U/L5 - 41 U/LBon Secours Mercy HealthAnion gap [Moles/Vol]9 mmol/L9 - 17 mmol/LBon Secours [facility] Medical Centery HealthAST [Catalytic activity/Vol]20 U/LNINF - 40 U/LBon Secours [facility] Medical Centery HealthBilirubin [Mass/Vol]0.6 mg/dL0.3 - 1.2 mg/dLBon Secours [facility] Centery Health Calcium [Mass/Vol]9.6 mg/dL8.6 - 10.4 mg/dLBon Secours Mercy HealthChloride [Moles/Vol]104 mmol/L98 - 107 mmol/LBon Secours Mercy HealthCO2 [Moles/Vol]28 mmol/L20 - 31 mmol/LBon MedWhatCreatinine [Mass/Vol]0.9 mg/dL0.7 - 1.2 mg/dLBon MedWhatEst, Glom Filt Rate87- PINFBon Hu Hu Kam Memorial HospitalMentorCloudComment on above: These results are not intended [...] therapy that affects renal tubular secretion. Glucose [Mass/Vol]112 mg/qUNrwl47 - 99 mg/dLBon MedWhatPotassium [Moles/Vol]4.0 mmol/L3.7 - 5.3 mmol/LBon MedWhatProtein [Mass/Vol] 7.4 g/dL6.4 - 8.3 g/dLBon MedWhatSodium [Moles/Vol]141 mmol/L135 - 144 mmol/LBon MedWhatUrea nitrogen [Mass/Vol]29 mg/dLHigh8 - 23 mg/dLBon MedWhatLipid Panelon 16-35-3528Yoltrmktsba [Mass/Vol]134 mg/dL0 - 199 mg/dLBon MedWhatComment on above: Cholesterol Guidelines: <200 Desirable 200-240 Borderline >240 Undesirable Cholesterol in HDL [Mass/Vol]54 mg/dL40 - PINF mg/dLBon MedWhat Comment on above: HDL Guidelines: <40 Undesirable 40-59 Borderline >59 Desirable Cholesterol in LDL [Mass/Vol]72 mg/dL0 - 100 mg/dLBon MedWhat Comment on above: LDL Guidelines: <100 Desirable 100-129 Near to/above Desirable 130-159 Borderline >159 Undesirable Direct (measured) LDL and calculated LDL are not interchangeable tests. Cholesterol in VLDL [Mass/Vol]8 mg/dL1 - 30 mg/dLBon MedWhat Cholesterol.total/Cholesterol in HDL [Mass ratio]2.5 {ratio}NINF - 5.0Bon [facility] HospitalTriglyceride [Mass/Vol]41 mg/dLNINF - 150 mg/dLBon [facility] on above: Triglyceride Guidelines: <150 Desirable 150-199 Borderline 200-499 High >499 Very high Based on AHA Guidelines for fasting triglyceride, March 2012. Lipid Profileon 10-29-5441Jhbykwghlpu [Mass/Vol]134 mg/dLNormal0-199[facility] on above:Result Comment: Cholesterol Guidelines: <200 Desirable 200-240 Borderline >240 UndesirablePerformed By: #### VD25, LIPR #### [facility] [address] [place] [address] Boarding House Cook: Arnav Barnes MD #### MG, CP, CDP #### [facility] [address] [place], [place] [id number] Boarding House Cook: BRENDEN Loyolaholesterol in HDL [Mass/Vol]54 mg/dLNormal>40 [facility] on above:Result Comment: HDL Guidelines: <40 Undesirable 40-59 Borderline >59 DesirablePerformed By: #### VD25, LIPR #### [facility] [address] [place] [address] Boarding House Cook: Arnav Barnes MD #### MG, CP, CDP #### [facility] [address] [place], [place] [phone] Boarding House Cook: BRENDEN Loyolaholesterol in LDL [Mass/Vol]72 mg/dLNormal0-100 [facility] on above:Result Comment: LDL Guidelines: <100 Desirable 100-129 Near to/above Desirable 130-159 Borderline >159 Undesirable Direct (measured) LDL and calculated LDL are not interchangeable tests.Performed By: #### VD25, LIPR #### [facility] [address] [place] [address] Boarding House Cook: Arnav Barnes MD #### MG, CP, CDP #### [facility] [address] [place], [place] 3206790 Boarding House Cook: BRENDEN Loyolaholesterol in VLDL [Mass/Vol]8 mg/dLNormal1-30 [facility] on above:Performed By: #### VD25, LIPR #### [facility] [address] [place], [place] 3173408 Boarding House Cook: Arnav Barnes MD #### MG, CP, CDP #### [facility] [address] [place], [place] 2424590 Boarding House Cook: BRENDEN Loyolaholesterozaira.total/Cholesterol in HDL [Mass ratio] 2.5 {ratio}Normal<5.0[facility] on above:Performed By: #### VD25, LIPR #### [address] [phone] Boarding House Cook: Arnav Barnes MD #### , CP, CDP #### [facility] [address] [place], [place] 5421190 Boarding House Cook: Анна Biswas MDTriglyceride [Mass/Vol]41 mg/dLNormal<150[facility] on above:Result Comment: Triglyceride Guidelines: <150 Desirable 150-199 Borderline 200-499 High >499 Very high Based on AHA Guidelines for fasting triglyceride, March 2012.Performed By: #### ILSA25, LIPR #### [address] [id number] Boarding House Cook: Arnav Barnes MD #### MG, CP, CDP #### [facility] [address] [place], [place] 5213690 Boarding House Cook: Анна Biswas MDMagnesiumon [id number] [Mass/Vol]2.7 mg/dLHigh1.6 - 2.6 mg/dLBon SecShelby Memorial HospitalMagnesium [Mass/Vol]2.7 mg/dL High1.6-2.6MercSharp Grossmont HospitalComtrinity health [facility] on above:Performed By: #### VD25, LIPR #### [facility] [facility] [address] [place], [place] [id number] Boarding House Cook: Arnav Barnes MD #### ISATU WELSH, CDP #### [facility] [address] [place] [address] Boarding House Cook: Анна Biswas MDNo Panel Informationon [id number] Twin City HospitalInterpretation and review of laboratory resultsAbnormalBon Freeman Regional Health ServicesVitamin D 25 Hydroxyon [id number]-wwgnnggkvdpelr D3 [Mass/Vol]45.9 ng/mL30.0 - 100.0 ng/mLSovah Health - DanvilleComtrinity health [facility] on above: Reference Range: Vitamin D status Range Deficiency <20 ng/mL Mild Deficiency 20-30 ng/mL Sufficiency 30-100 ng/mL Toxicity >100 ng/mL Vitamin D 25 OHon [id number] D 25 OH45.9 ng/nAKclobr03.0-100.0MerMartin [facility] Hospital on above:Result Comment: Reference Range: Vitamin D status Range Deficiency <20 ng/mL Mild Deficiency 20-30 ng/mL Sufficiency 30-100 ng/mL Toxicity >100 ng/mLPerformed By: #### VD25, LIPR #### [id number] [place] [address] Boarding House Cook: Arnav Barnes MD #### , CP, CDP #### [facility] [address] [place] [address] Boarding House Cook: Анна Biswas MDXR CHEST (2 VW)on [id number] CHEST (2 VW)EXAM: XR CHEST (2 VW) HISTORY: Community acquired pneumonia of right lower lobe of lung COMPARISON: 06/27/2010 IMPRESSION: FINDINGS/IMPRESSION: No pneumonia or acute change in the lungs. Heart size normal. Mild plaque aorta. Interpreted by: Perez oLpez Jr., MD Signed by: Perez Lopez Jr., MD 02/13/25 Final resultNormalMerManhattan Psychiatric CenterXR Chest 2 Viewson 02-13-2025 FINDINGS/IMPRESSION: No pneumonia or acute change in the lungs. Heart size normal. Mild plaque aorta. [facility] RIS CONSOLIDATEDEXAM: XR CHEST (2 VW) HISTORY: Community acquired pneumonia of right lower lobe of lung COMPARISON: 06/27/2010 [facility] Perez Villalba Jr., MD - 02/13/2025 EXAM: XR CHEST (2 VW) HISTORY: Community acquired pneumonia of right lower lobe of lung COMPARISON: 06/27/2010 IMPRESSION: FINDINGS/IMPRESSION: No pneumonia or acute change in the lungs. Heart size normal. Mild plaque aorta. [facility] DanvilleRadiology Study observation (narrative)[facility] - DanvilleXR Chest 2 ViewsOrdered By: Perez Lopez on 24-10-5691Neq [facility] Work Phone: Heavy Metal Panelon [id number]<2.5Normal<=10.0 [facility] HospitalComment on above:Result Comment: (NOTE) INTERPRETIVE INFORMATION: Mercury, Blood Elevated results may [...] may include dysarthria, ataxia and constricted vision roman with mercury blood concentrations from 20 to 50 ug/L. This test was developed and its performance characteristics determined by [facility]. It has not been cleared or approved by the [place] Food and Drug Administration. This test was performed in a CLIA certified laboratory and is intended for clinical purposes. Performed By: [facility] [address] [place] [address] Director Style: Margarita Rao MD, PhD CLIA Number: [id number] By: #### VD25, LIPR #### [facility] [address] [place], [place] [id number] Boarding House Cook: Arnav Barnes MD #### ISATU WELSH, CDP #### [facility] [address] [place] [address] Boarding House Cook: Анна Biswas MDArsenic<10.0Normal<=12.0[facility] Comment on above:Result Comment: (NOTE) INTERPRETIVE INFORMATION: Arsenic, Blood Elevated results may [...] developed and its performance characteristics determined by [facility]. It has not been cleared or approved by the [place] Food and Drug Administration. This test was performed in a CLIA certified laboratory and is intended for clinical purposes. Performed By: [facility] [address] [place] [address] Director Style: Margarita Rao MD, PhD CLIA Number: [id number] By: #### VD25, LIPR #### [facility] [address] [place], [place] [phone] Boarding House Cook: Arnav Barnes MD #### ISATU WELSH, CDP #### [facility] [address] [place] [address] Boarding House Cook: BRENDEN Loyolaadmium, Blood<1.0Normal<=5.0Shelby Memorial HospitalComment on above:Result Comment: (NOTE) INTERPRETATION INFORMATION: Cadmium, Blood Elevated results may [...] developed and its performance characteristics determined by [facility]. It has not been cleared or approved by the US Food and Drug Administration. This test was performed in a CLIA certified laboratory and is intended for clinical purposes. Performed By: [facility] [address] [place] [address] Director Style: Margarita Rao MD, PhD CLIA Number: [id number] By: #### VD25, LIPR #### [address] [id number] Boarding House Cook: Arnav Barnes MD #### MG, CP, CDP #### [facility] [address] [place] [address] Boarding House Cook: Анна Biswas MDB12/Folate Panelon [id number] (Vitamin B12) [Mass/Vol]717 pg/fEQylzga921-8996FwuxaShelby Memorial HospitalComment on above: Performed By: #### TSHX, CDP, CP #### [facility] [address] [place] [address] Boarding House Cook: Анна Biswas MD #### B12FOL, TREP #### [address] [id number] Boarding House Cook: Arnav Barnes MD #### ISAI #### [employer] [address] [place] [phone] Boarding House Cook: Boogie Espinal MDFolic Acid12.0 ng/mLNormal4.8-24.2[facility] Mississippi State HospitalComment on above:Performed By: #### TSHX, CDP, CP #### [facility] [address] [place] [address] Boarding House Cook: Анна Biswas MD #### B12FOL, TREP #### [facility] [address] [place], [place] [address]86[address] Boarding House Cook: Arnav Barnes MD #### ISAI #### [facility] [address] [place] [address] Boarding House Cook: Boogie Espinal [facility] with Auto Differentialon [id number] (Bld) [#/Vol]0.03 10*3/uLBon Secours [facility] Pickerington Methodist HospitalBasophils/100 WBC (Bld)1 %0 - 2 %Bon SecShelby Memorial HospitalEosinophils (Bld) [#/Vol]0.05 10*3/uLBon Secours [facility]ering[facility] Methodist HospitalEosinophils/100 WBC (Bld)1 %0 - 5 %[facility] Methodist HospitalErythrocyte distribution width (RBC) [Ratio]13.1 %12.1 - 15.2 %[facility] Hospital Hematocrit (Bld) [Volume fraction]41.7 %41.0 - 53.0 %[facility] Hemoglobin (Bld) [Mass/Vol]14.1 g/dL13.5 - 17.5 g/dLBon SecShelby Memorial Hospital Immature granulocytes (Bld) [#/Vol]0.01 10*3/uLBon Secours [facility]ering[facility] Methodist HospitalImmature granulocytes/100 WBC (Bld)0 %0 - 5 %[facility] Centery [facility] Cleveland-FairhillInterpretation and review of laboratory resultsAbnormalBon Secours [place] [facility] Centery [facility]-FairhillLymphocytes/100 WBC (Bld)25 %13 - 44 %[facility] Cleveland-FairhillLymphocytes/100 WBC (Bld)1.46 %Bon SecUC HealthH (RBC) [Entitic mass]32 pg26.0 - 34.0 pgBon SecUC HealthHC (RBC) [Mass/Vol]33.8 g/dL31.0 - 37.0 g/dLBon Twin City HospitalMCV (RBC) [Entitic vol]94.8 fL80.0 - 100.0 fLBon [facility] City HospitalMonocytes/100 WBC (Bld)8 %5 - 9 %Bon [facility] HospitalMonocytes/100 WBC (Bld)0.46 %Bon [facility] HospitalNeutrophils/100 WBC (Bld)65 %39 - 75 %Bon [facility] HospitalPlatelet mean volume (Bld) [Entitic vol]8.9 fL6.0 - 12.0 fLBon Twin City HospitalPlatelets (Bld) [#/Vol]204 10*3/uLBon [facility] City HospitalRBC (Bld) [#/Vol]4.4 10*6/uLLow4.50 - 5.90 m/uLBon [facility] City HospitalSegmented neutrophils/100 WBC (Bld)3.88 %Bon [facility] HospitalWBC other (Bld) [#/Vol] 5.9Bon [facility]Psych[facility], [facility] 2001CBC with Diffon 08-15-2024 Abs. Basophil0.03 k/uLNormal0.00-0.20[facility] Memorial HospitalComment on above: Performed By: #### CHARITO WELLINGTON, CP #### [facility] [address] [place] [address] Boarding House Cook: Анна Biswas MD #### B12TIMO ALSTON #### [facility] [address] [place] [address] Boarding House Cook: Arnav Barnes MD #### ISAI #### [facility] [address] [place] [address] Boarding House Cook: Snow Medina.Imm.Granulocyte0.01 k/uLNormal0.00-0.30S[facility] Memorial HospitalComment on above:Performed By: #### TSHCHARITO Ayon, CP #### [facility] [address] [place] [id number] Boarding House Cook: Анна Biswas MD #### B12FOL, TREP #### [facility] [address] [place] [address] [phone] Boarding House Cook: Arnav Barnes MD #### ISAI #### [facility] [address] [place], [place] [id number] Boarding House Cook: Snow Medina.Neutrophil (Seg)3.88 k/uLNormal2.1-6.5S[facility] Memorial HospitalComment on above:Performed By: #### TSHX CDP, CP #### [facility] [address] [place] [address] Boarding House Cook: Анна Biswas MD #### B12FOL, TREP #### [address] [address] Boarding House Cook: Arnav Barnes MD #### ISAI #### [facility] [address] [place], [place] [id number] Boarding House Cook: Boogie Espinal MDBasophils/100 WBC (Bld)1 %Normal0-2MMain Campus Medical CenterComment on above:Performed By: #### TSHX, CDP, CP #### [facility] [address] [place] [address] Boarding House Cook: Анна Biswas MD #### B12FOL, TREP #### [facility] [address] [place] [address] Boarding House Cook: Arnav Barnes MD #### ISAI #### [facility] [address] [place], [place] [id number] Boarding House Cook: Boogie Espinal MDEosinophils (Bld) [#/Vol]0.05 10*3/uLNormal 0.00-0.40[facility] HospitalComtrinity health [facility] hospital on above:Performed By: #### TSHX, CDP, CP #### [facility] [address] [place], [place] [id number] Boarding House Cook: Анна Biswas MD #### B12FOL, TREP #### [facility] [address] [place] [address] Boarding House Cook: Arnav Barnes MD #### ISAI #### [facility] [address] [place] [address] Boarding House Cook: Boogie Espinal MDEosinophils/100 WBC (Bld)1 %Normal0-5S[facility] Memorial HospitalComment on above:Performed By: #### ELIZ CDP, CP #### [facility] [address] [place], [place] [address] Boarding House Cook: Анна Biswas MD #### B12FOZaira, TREP #### [address] [address] Boarding House Cook: Arnav Barnes MD #### ISAI #### [facility] [address] [place], [place] [id number] Boarding House Cook: Boogie Espinal MDErythrocyte distribution width (RBC) [Ratio]13.1 %Xyiutz27.1-15.2[facility] State HospitalComment on above:Performed By: #### CHARITO WELLINGTON, CP #### [facility] [address] [place] [address] Boarding House Cook: Анна Biswas MD #### B12FOL, TREP #### [facility] [address] [place] [address] Boarding House Cook: Arnav Barnes MD #### ISAI #### [facility] [address] [place] [address] Boarding House Cook: Boogie Espinal MDHematocrit (Bld) [Volume fraction]41.7 %Normal 41.0-53.0MerMartin [facility] Hospital on above:Performed By: #### TSHX, CDP, CP #### [facility] [address] [place] [address] Boarding House Cook: Анна Biswas MD #### B12FOL, TREP #### [facility] [address] [place] [address] Boarding House Cook: Arnav Barnes MD #### ISAI #### [facility] [address] [place] [address] Boarding House Cook: Boogie Espinal MDHemoglobin (Bld) [Mass/Vol]14.1 g/dLNormal 13.5-17.5[facility] on above:Performed By: #### ELIZ CDP, CP #### [facility] [address] [place] [address] Boarding House Cook: Анна Biswas MD #### B12FOZaira, TREP #### [facility] [address] [place] [address] Boarding House Cook: Arnav Barnes MD #### ISAI #### [facility] [address] [place], [place] [id number] Boarding House Cook: Boogie Espinal MDImmature granulocytes/100 WBC (Bld)0 %Normal0-5 [facility] on above:Performed By: #### CHARITO WELLINGTON, CP #### [facility] [address] [place] [address] Boarding House Cook: Анна Biswas MD #### B12FOL, TREP #### [facility] [address] [place] [address] Boarding House Cook: Arnav Barnes MD #### ISAI #### [facility] [address] [place] [address] Boarding House Cook: Boogie Espinal MDLymphocytes (Bld) [#/Vol]1.46 10*3/uLNormal 1.00-4.80S[facility] HospitalComment on above:Performed By: #### TSHX CDP, CP #### [facility] [address] [place] [address] Boarding House Cook: Анна Biswas MD #### B12FOL, TREP #### [facility] [address] [place] [address] Boarding House Cook: Arnav Barnes MD #### ISAI #### [facility] [address] [place] [address] Boarding House Cook: Boogie Espinal MDLymphocytes/100 WBC (Bld)25 %Wwfhkm65-39OlbqdShelby Memorial HospitalComment on above:Performed By: #### CHARITO WELLINGTON, CP #### [facility] [address] [place] [address] Boarding House Cook: Анна Biswas MD #### B12FOZaira, TREP #### [facility] [address] [place] [address] Boarding House Cook: Arnav Barnes MD #### ISAI #### [facility] [address] [place], [place] [id number] Boarding House Cook: MORENO MedinaCH (RBC) [Entitic mass]32.0 cePurdgp80.0-34.0 [facility] HospitalComtrinity health [facility] on above:Performed By: #### CHARITO WELLINGTON, CP #### [facility] [address] [place] [address] Boarding House Cook: Анна Biswas MD #### B12FOL, TREP #### [facility] [address] [place] [address] Boarding House Cook: Arnav Barnes MD #### ISAI #### [facility] [address] [place] [address] Boarding House Cook: MORENO MedinaCHC (RBC) [Mass/Vol]33.8 g/gYXfxrpz62.0-37.0 [facility] HospitalComment on above:Performed By: #### CHARITO WELLINGTON, CP #### [facility] [address] [place], [place] 0[address]490 Boarding House Cook: Анна Biswas MD #### B12GAMALIEL, TREP #### [facility] [address] [place] [address] Boarding House Cook: Arnav Barnes MD #### ISAI #### [facility] [address] [place], [place] [id number] Boarding House Cook: MORENO MedinaCV (RBC) [Entitic vol]94.8 nOWgoivq05.0-100.0 [facility] HospitalComment on above:Performed By: #### CHARITO WELLINGTON, CP #### [facility] [address] [place], [place] 77[address] Boarding House Cook: Анна Biswas MD #### KenyaFOZaira, TREP #### [facility] [address] [place] [address] Boarding House Cook: Arnav Barnes MD #### ISAI #### [facility] [address] [place], [place] [id number] Boarding House Cook: MORENO Medinaonocytes (Bld) [#/Vol]0.46 10*3/uLNormal 0.00-1.00S[facility] Memorial HospitalComment on above:Performed By: #### CHARITO WELLINGTON, CP #### [facility] [address] [place], [place] 8677[address] Boarding House Cook: Анна Biswas MD #### B12FOL, TREP #### [address] [address] Boarding House Cook: Arnav Barnes MD #### ISAI #### [facility] [address] [place] [address] Boarding House Cook: MORENO Medinaonocytes/100 WBC (Bld)8 %Normal5-9S[facility] HospitalComment on above:Performed By: #### TSHX, CDP, CP #### [facility] [address] [place], [place] 413[address] Boarding House Cook: Анна Biswas MD #### B12FOL, TREP #### [facility] [address] [place] [address] Boarding House Cook: Arnav Barnes MD #### ISAI #### [facility] [address] [place], [place] [address] Boarding House Cook: Boogie Espinal MDNeutrophil (Seg)65 %Dsfhls73-41XglzfShelby Memorial HospitalComment on above:Performed By: #### TSHX CDP, CP #### [facility] [address] [place], [place] [address] Boarding House Cook: Анна Biswas MD #### B12FOL, TREP #### [facility] [address] [place] [address] Boarding House Cook: Arnav Barnes MD #### ISAI #### [facility] [address] [place], [place] [id number] Boarding House Cook: Sarmad Medinalet mean volume (Bld) [Entitic vol]8.9 fL Normal6.0-12.0[facility] Memorial HospitalComment on above:Performed By: #### TSHX CDP, CP #### [facility] [address] [place], [place] 0[address] Boarding House Cook: Анна Biswas MD #### B12FOL, TREP #### [facility] [address] [place], [place] 3914808 Boarding House Cook: Arnav Barnes MD #### ISAI #### [facility] [address] [place] [address] Boarding House Cook: Kolby Medina (d) [#/Vol]204 10*3/tZRqpire535-240 [facility] HospitalComment on above:Performed By: #### TSHX, CDP, CP #### [facility] [address] [place], [place] 15228[address] Boarding House Cook: Анна Biswas MD #### B12FOL, TREP #### [facility] [address] [place] [address] Boarding House Cook: Arnav Barnes MD #### ISAI #### [facility] [address] [place] [address] Boarding House Cook: LEONEL Medina (d) [#/Vol]4.40 10*6/uLLow4.50-5.90S[facility] Memorial HospitalComment on above:Performed By: #### TSHX CDP, CP #### [facility] [address] [place] [address] Boarding House Cook: Анна Biswas MD #### B12FOL, TREP #### [facility] [address] [place] [address] Boarding House Cook: Arnav Barnes MD #### ISAI #### [facility] [address] [place] [address] Boarding House Cook: Boogie Espinal MDNEWARK-W[facility] (d) [#/Vol]5.9 10*3/uLNormal3.5-11.0[facility] on above:Performed By: #### TSHX, CDP, CP #### [facility] [address] [place] [address] Boarding House Cook: Анна Biswas MD #### B12FOL, TREP #### [facility] [address] [place] [address] Boarding House Cook: Arnav Barnes MD #### ISAI #### [facility] [address] [place] [address] Boarding House Cook: BRENDEN Medinadelta community medical center Metabolic Profon [id number] [Mass/Vol]4.3 g/dLNormal3.5-5.2MercSharp Grossmont HospitalComment on above:Performed By: #### CHARITO WELLINGTON, CP #### [facility] [address] [place], [place] 3256190 Boarding House Cook: Анна Biswas MD #### B12FOZaira, TREP #### [address] [address] Boarding House Cook: Arnav Barnes MD #### ISAI #### [facility] [address] [place], [place] [address] Boarding House Cook: Josafat Medinabumin/Glob Ratio1.5Vcdsgh2.0-2.5[facility] Memorial HospitalComment on above:Performed By: #### CHARITO WELLINGTON, CP #### [facility] [address] [place], [place] 0125[address] Boarding House Cook: Анна Biswas MD #### B12GAMALIEL, TREP #### [address] [address] Boarding House Cook: Arnav Barnes MD #### ISAI #### [facility] [address] [place] [address] Boarding House Cook: Josafat Medinakaline Phos49 U/INbtisx17-994OneilShelby Memorial HospitalComment on above:Performed By: #### CHARITO WELLINGTON, CP #### [facility] [address] [place], [place] 56104[address] Boarding House Cook: Анна Biswas MD #### B12FOL, TREP #### [facility] [address] [place] [address] Boarding House Cook: Arnav Barnes MD #### ISAI #### [facility] [address] [place], [place] [id number] Boarding House Cook: Boogie Espinal MDALT [Catalytic activity/Vol]18 U/LNormal5-41[facility] Memorial HospitalComment on above:Performed By: #### TSHX CDP, CP #### [facility] [address] [place] [address] Boarding House Cook: Анна Biswas MD #### B12FOZaira, TREP #### [facility] [address] [place] [address] Boarding House Cook: Arnav Barnes MD #### ISAI #### [facility] [address] [place], [place] [address] Boarding House Cook: Boogie Espinal MDAnion gap [Moles/Vol]10 mmol/LNormal9-17[facility] HospitalComment on above:Performed By: #### ELIZ CDP, CP #### [facility] [address] [place] [address] Boarding House Cook: Анна Biswas MD #### B12FOZaira, TREP #### [facility] [address] [place] [address] Boarding House Cook: Arnav Barnes MD #### ISAI #### [facility] [address] [place], [place] [id number] Boarding House Cook: Boogie Espinal MDAST [Catalytic activity/Vol]19 U/LNormal<40S[facility] Memorial HospitalComment on above:Performed By: #### TSHX, CDP, CP #### [facility] [address] [place] [address] Boarding House Cook: Анна Biswas MD #### B12FOL, TREP #### [facility] [address] [place] [address] Boarding House Cook: Arnav Barnes MD #### ISAI #### [facility] [address] [place], [place] [id number] Boarding House Cook: Boogie Espinal MDBilirubin [Mass/Vol]0.4 mg/dLNormal0.3-1.2MercSharp Grossmont HospitalComment on above:Performed By: #### TSHX CDP, CP #### [facility] [address] [place] [address] Boarding House Cook: Анна Biswas MD #### B12FOZaira, TREP #### [facility] [address] [place] [address] Boarding House Cook: Arnav Barnes MD #### ISAI #### [facility] [address] [place], [place] 8[address] Boarding House Cook: BRENDEN Medinaalcium [Mass/Vol]9.5 mg/dLNormal8.6-10.4S[facility] Memorial HospitalComment on above:Performed By: #### CHARITO WELLINGTON, CP #### [facility] [address] [place] [address] Boarding House Cook: Анна Biswas MD #### B12FOZaira, TREP #### [facility] [address] [place] [address] Boarding House Cook: Arnav Barnes MD #### ISAI #### [facility] [address] [place] [address] Boarding House Cook: Boogie Espinal MDChloride [Moles/Vol]103 mmol/GHiycfl87-999XglcyShelby Memorial HospitalComment on above:Performed By: #### TSHGabo CDP, CP #### [facility] [address] [place] [address] Boarding House Cook: Анна Biswas MD #### B12FOL, TREP #### [facility] [address] [place], [place] 385[address] Boarding House Cook: Arnav Barnes MD #### ISAI #### [facility] [address] [place], [place] [address] Boarding House Cook: BRENDEN MedinaO2 [Moles/Vol]26 mmol/NSuizrq72-40SlxmnShelby Memorial HospitalComment on above:Performed By: #### CHARITO WELLINGTON, CP #### [facility] [address] [place], [place] 1368990 Boarding House Cook: Анна Biswas MD #### B12FOZaira, TREP #### [facility] [address] [place] [address] [id number] Boarding House Cook: Arnav Barnes MD #### ISAI #### [facility] [address] [place], [place] [id number] Boarding House Cook: BRENDEN Medinareatinine [Mass/Vol]0.9 mg/dLNormal0.7-1.2MMain Campus Medical CenterComment on above:Performed By: #### CHARITO WELLINGTON, CP #### [facility] [address] [place] [address] Boarding House Cook: Анна Biswas MD #### B12FOZaira, TREP #### [facility] [address] [place] [address] Boarding House Cook: Arnav Barnes MD #### ISAI #### [facility] [address] [place], [place] [id number] Boarding House Cook: Boogie Espinal MDGFR/1.73 sq M.predicted among non-blacks MDRD (S/P/Bld) [Vol rate/Area]87 mL/min/{1.73_m2}Normal>60[facility] Comment on above:Result Comment: These results are not intended for [...] or following therapy that affects renal tubular secretion.Performed By: #### CHARITO WELLINGTON, CP #### [facility] [address] [place] [address] Boarding House Cook: Анна Biswas MD #### B12FOL, TREP #### [facility] [address] [place] [address] Boarding House Cook: Arnav Barnes MD #### ISAI #### [facility] [address] [place], [place] [id number] Boarding House Cook: Boogie Espinal MDGlucose [Mass/Vol]113 mg/kKLjdk53-35DooxaMain Campus Medical CenterComment on above:Performed By: #### CHARITO WELLINGTON, CP #### [facility] [address] [place] [address] Boarding House Cook: Анна Biswas MD #### B12FOZaira, TREP #### [facility] [address] [place] [address] Boarding House Cook: Arnav Barnes MD #### ISAI #### [facility] [address] [place] [address] Boarding House Cook: GILLES Medinaotassium [Moles/Vol]4.1 mmol/LNormal3.7-5.3[facility] State HospitalComment on above:Performed By: #### CHARITO WELLINGTON, CP #### [facility] [address] [place], [place] 403[address] Boarding House Cook: Анна Biswas MD #### B12FOZaira, TREP #### [facility] [address] [place] [address] Boarding House Cook: Arnav Barnes MD #### ISAI #### [facility] [address] [place], [place] [id number] Boarding House Cook: GILLES Medinarotein [Mass/Vol]7.2 g/dLNormal6.4-8.3MercSharp Grossmont HospitalComment on above:Performed By: #### TSHX CDP, CP #### [facility] [address] [place] [address] Boarding House Cook: Анна Biswas MD #### B12FOL, TREP #### [facility] [address] [place] [address] [id number] Boarding House Cook: Arnav Barnes MD #### ISAI #### [facility] [address] [place], [place] [phone] Boarding House Cook: ZAN Medinaodium [Moles/Vol]139 mmol/TArxavm863-057ZxrvoShelby Memorial HospitalComment on above:Performed By: #### CHARITO WELLINGTON, CP #### [facility] [address] [place] [address] Boarding House Cook: Анна Biswas MD #### B12FOL, TREP #### [address] [address] Boarding House Cook: Arnav Barnes MD #### ISAI #### [facility] [address] [place], [place] [id number] Boarding House Cook: Boogie Espinal MDUrea nitrogen [Mass/Vol]17 mg/dLNormal8-23Shelby Memorial HospitalComment on above:Performed By: #### TSHX, CDP, CP #### [facility] [address] [place] [address] Boarding House Cook: Анна Biswas MD #### B12FOL, TREP #### [facility] [address] [place] [address] Boarding House Cook: Arnav Barnes MD #### ISAI #### [facility] [address] [place] [address] Boarding House Cook: Boogie Espinal [facility] GROVEompbucyrus community hospitalensive Metabolic Panelon 05-04-7895Prxoess [Mass/Vol]4.3 g/dL3.5 - 5.2 g/dLBon SecMentorCloudAlbumin/Globulin [Mass ratio]1.5 {ratio}1.0 - 2.5[facility] Instilling Valuesy HealthALP [Catalytic activity/Vol]49 U/L40 - 129 U/LBon Secours Appcara Inc HealthALT [Catalytic activity/Vol]18 U/L5 - 41 U/LBon Secours Asterias BiotherapeuticsAnion gap [Moles/Vol]10 mmol/L9 - 17 mmol/LBon SecDang Le HealthAST [Catalytic activity/Vol]19 U/LNINF - 40 U/LBon SecMentorCloudBilirubin [Mass/Vol]0.4 mg/dL0.3 - 1.2 mg/dLBon SecMentorCloud Calcium [Mass/Vol]9.5 mg/dL8.6 - 10.4 mg/dLBon SecDang Le HealthChloride [Moles/Vol]103 mmol/L98 - 107 mmol/LBon Secours Appcara Inc HealthCO2 [Moles/Vol]26 mmol/L20 - 31 mmol/LBon Secours [facility] Inc HealthCreatinine [Mass/Vol]0.9 mg/dL0.7 - 1.2 mg/dLBon Secours Appcara Inc HealthEst, Glom Filt Rate87- PINFBon SecMentorCloudComment on above: These results are not intended [...] therapy that affects renal tubular secretion. Glucose [Mass/Vol]113 mg/qPVaxj57 - 99 mg/dLBon MedWhat Interpretation and review of laboratory resultsAbnormalBon Hu Hu Kam Memorial HospitalMentorCloud Potassium [Moles/Vol]4.1 mmol/L3.7 - 5.3 mmol/LBon Twin City HospitalProtein [Mass/Vol]7.2 g/dL6.4 - 8.3 g/dLBon Twin City HospitalSodium [Moles/Vol]139 mmol/L135 - 144 mmol/LBon Twin City HospitalUrea nitrogen [Mass/Vol]17 mg/dL8 - 23 mg/dLBon Twin City HospitalMicroscopic Urinalysison 08-15-2024-[facility] Health - DanvilleBacteria LM Ql (Urine sed)RAREAbnormalNoneBon Twin City HospitalEpithelial cells LM.HPF (Urine sed) [#/Area]0 TO 2/HPFSovah Health - DanvilleInterpretation and review of laboratory resultsAbnormRiverside Health SystemRBC LM.HPF (Urine sed) [#/Area]0 TO 2Bon Twin City HospitalWBC LM.HPF (Urine sed) [#/Area]2 TO 50 /HPFNorton Community Hospital No Panel Informationon [id number] [facility] ServicesT. Pallidum Abon 08-15-2024T. pallidum Ab IA Ql (S)Non-ReactiveNONREACTIVE [facility] Health - DanvilleComment on above: T. pallidum antibodies are not detected. There is no serological evidence of infection with T. pallidum (early primary syphilis cannot be excluded). Retest in 2-4 weeks if syphilis is clinically suspect. T.pallidum Ab Screenon 08-15-2024T.pallidum Ab ScreenNon-ReactiveNoUniversity Hospitals Conneaut Medical Center on above:Result Comment: T. pallidum antibodies are not detected. There is no serological evidence of infection with T. pallidum (early primary syphilis cannot be excluded). Retest in 2-4 weeks if syphilis is clinically suspect.Performed By: #### TSHX, CDP, CP #### [facility] [address] [place] [address] Boarding House Cook: Анна Biswas MD #### B12FOZaira, TREP #### [address] [id number] Boarding House Cook: Arnav Barnes MD #### ISAI #### [facility] [address] [place], [place] [id number] Boarding House Cook: Boogie Espinal MDSTATE MENTAL HEALTH F[facility]ILITY reflex to FT4on 55-09-0744NLE Qn1.83 m[IU]/L [facility] w/reflex to FT4on 66-43-5485Tzzgxdk Stim. Horm.1.83 uIU/mLNormal0.27-4.20Shelby Memorial HospitalComment on above:Performed By: #### TSHX, CDP, CP #### [facility] [address] [place] [address] Boarding House Cook: Анна Biswas MD #### B12FOL, TREP #### [address] [address] Boarding House Cook: Arnav Barnes MD #### ISAI #### [facility] [address] [place] [address] Boarding House Cook: Boogie Espinal MD w/Reflex Cultureon 12-05-6525Lrtkxeija, SemiQt,UrNegativeNormalSelect Medical Specialty Hospital - Boardman, IncComment on above:Performed By: #### VD25, LIPR #### [address] [address] Boarding House Cook: Arnav Barnes MD #### MG, CP, CDP #### [facility] [address] [place] [address] Boarding House Cook: Анна Biswas MDBlood, UrineTRACEAbnormThe [facility] Comment on above:Performed By: #### VD25, LIPR #### [facility] [employer] [address] [place] [address] Boarding House Cook: Arnav Barnes MD #### MG, CP, CDP #### [facility] [address] [place] [address] Boarding House Cook: Irwin Loyolarity (ClearNoalCLEARShelby Memorial Hospital Comment on above:Performed By: #### VD25, LIPR #### [facility] [address] [place] [address] Boarding House Cook: Arnav Barnes MD #### MG, CP, CDP #### [facility] [address] [place] [address] Boarding House Cook: BRENDEN Loyolaolor (UYellowNoFirelands Regional Medical Center Comment on above:Performed By: #### VD25, LIPR #### [address] [address] Boarding House Cook: Arnav Barnes MD #### MG, CP, CDP #### [facility] [address] [place] [address] Boarding House Cook: BRENDEN LoyolaommentNoBellevue HospitalComment on above:Performed By: #### VD25, LIPR #### [address] [address] Boarding House Cook: Arnav Barnes MD #### MG, CP, CDP #### [facility] [address] [place] [address] Boarding House Cook: Анна Biswas MDGlucose Ql (U)NegativeNormalNEGShelby Memorial HospitalComment on above:Performed By: #### VD25, LIPR #### [address] [address] Boarding House Cook: Arnav Barnes MD #### MG, CP, CDP #### [facility] [address] [place] [address] Boarding House Cook: Анна Biswas MDKetones Ql (U)TRACEAbnormalNEGShelby Memorial HospitalComment on above:Performed By: #### VD25, LIPR #### [facility] [address] [place] [address] Boarding House Cook: Arnav Barnes MD #### MG, CP, CDP #### [facility] [address] [place] [address] Boarding House Cook: Анна Biswas MDLeukocyte esterase Test strip Ql (U)1+AbnormalNEG Shelby Memorial HospitalComtrinity health ann [facility] hospital on above:Performed By: #### VD25, LIPR #### [address] [address] Boarding House Cook: Arnav Barnes MD #### MG, CP, CDP #### [facility] [address] [place], [place] [phone] Boarding House Cook: Анна Biswas MDNitrite,UrNegativeNormThe [facility] Comment on above:Performed By: #### VD25, LIPR #### [facility] [address] [place] [address] Boarding House Cook: Arnav Barnes MD #### MG, CP, CDP #### [facility] [address] [place] [address] Boarding House Cook: GILLES Loyola,Ur5.6Uovdmm2.0-8.0[facility] on above:Performed By: #### VD25, LIPR #### [facility] [address] [place] [address] Boarding House Cook: Arnav Barnes MD #### MG, CP, CDP #### [facility] [address] [place] [address] Boarding House Cook: GILLES Loyolamonmouth medical center southern [facility] ([facility]3] Ql (U)TRACEAbnormalNEGShelby Memorial HospitalComment on above:Performed By: #### VD25, LIPR #### [facility] [address] [place], [place] 3808508 Boarding House Cook: Arnav Barnes MD #### MG, CP, CDP #### [facility] [address] [place], [place] [phone] Boarding House Cook: ZAN Loyolapec. Plymouth,Ur1.041Yjcpcp0.005-1.030[facility] on above:Performed By: #### VD25, LIPR #### [facility] [address] [place], [place] [phone] Boarding House Cook: Arnav Barnes MD #### MG, CP, CDP #### [facility] [address] [place], [place] [phone] Boarding House Cook: Анна Biswas MDUrobilinogen,UrNormalNormal0.0-1.0[facility] on above:Performed By: #### VD25, LIPR #### [facility] [address] [place], [place] [address] Boarding House Cook: Arnav Barnes MD #### MG, CP, CDP #### [facility] [address] [place], [place] 5[address] Boarding House Cook: Анна Biswas MDUrinalysis with Reflex to Cultureon 08-15-2024 Bilirubin Ql (U)NegativeNEGATIVEBon [facility]ours [facility] HealthClarity (U)ClearClearBon SecShelby Memorial HospitalColor (U)YellowYellowBon SecShelby Memorial HospitalCommentBon Twin City HospitalGlucose Test strip (U) [Mass/Vol]NegativeNEGATIVE mg/dLBon SecShelby Memorial HospitalHemoglobin Auto test strip Ql (U)TRACEAbnormalNEGATIVEBon SecSouth Cameron Memorial Hospital HealthInterpretation and review of laboratory resultsAbnormalBon Secours [facility] HealthKetones (U) [Mass/Vol]TRACEAbnormalNEGATIVE mg/dLBon SecShelby Memorial HospitalLeukocyte esterase Test strip Ql (U)1+AbnormalNEGATIVEBon Secours Mercy HealthNitrite Ql (U)NegativeNEGATIVEBon SecSouth Cameron Memorial Hospital HealthpH (U)5 [pH] 5.0 - 8.0Bon SecSouth Cameron Memorial Hospital HealthProtein (U) [Mass/Vol]TRACEAbnormalNEGATIVE mg/dLBon Twin City HospitalSpecific gravity (U) [Rel density]1.0251.005 - 1.030Bon Twin City HospitalUrobilinogen Qn (U)Normal0.0 - 1.0 EU/dLBon SecShelby Memorial HospitalBon SecSouth Cameron Memorial Hospital HealthUrinalysis,Microon 08-15-2024-----Normal Shelby Memorial HospitalComment on above:Performed By: #### VD25, LIPR #### [place] [address] Boarding House Cook: Arnav Barnes MD #### MG, CP, CDP #### [facility] [address] [place] [address] Boarding House Cook: Анна Biswas MDBacteriaRARESt. Anthony's Hospital Comment on above:Performed By: #### VD25, LIPR #### [place] [address] Boarding House Cook: Arnav Barnes MD #### MG, CP, CDP #### [facility] [address] [place] [address] Boarding House Cook: Анна Biswas MDEpithelial cells LM Ql (Urine sed)0 TO 2Normal Shelby Memorial HospitalComment on above:Performed By: #### VD25, LIPR #### [place] [id number] Boarding House Cook: Arnav Barnes MD #### MG, CP, CDP #### [facility] [address] [place] [address] Boarding House Cook: Анна Biswas MDUrine RBC's0 TO 8Eehthn2-0KcercMain Campus Medical Center Comment on above:Performed By: #### VD25, LIPR #### [facility] [address] [place] [address] Boarding House Cook: Arnav Barnes MD #### MG CP, CDP #### [facility] [address] [place], [place] [address] Boarding House Cook: Анна Biswas MDUrine WBC's[address] [place] [address] Comment on above:Performed By: #### VD25, LIPR #### [facility] [address] [place] [address] Boarding House Cook: Arnav Barnes MD #### MG CP, CDP #### [facility] [address] [place] [address] Boarding House Cook: Анна Biswas MDVitamin B12 & Folateon 83-00-8446Bsfxuyatb (Vitamin B12) [Mass/Vol]717 pg/mL232 - 1245 pg/mLSovah Health - DanvilleFolate [Mass/Vol]12.0 ng/mL4.8 - 24.2 ng/mLSovah Health - DanvilleOffice Visiton [id number]-up [id number] Faith Penn 1945 M Date Provider Department Center 08/09/2024 271-MORE CINTRON CARD [facility] Family History Problem Relation Age of Onset Stroke Father Diabetes Father Family Status - Relation Status Age at Father Level of Service:[address] [place] OFFICE/OUTPATIENT ESTABLISHED MOD [facility]on 08-08-2024 Urology Office/Clinic NoteUrology Office/Clinic Note Chief Complaint 1 yr fu [...] sxs better on med previously. Pt knows tocall office with bothersome urinary sxs. Follow up [...] Denies any bothersome SEs at this time. Patientis happy with sxs at this time. 5. 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 Garcia at [facility] on 12/29/23 due to recent TIA. Pt's reports that she was told patient had a traumatic catheter insertion for his surgery so they left the catheter in place post-op. While inpatient, catheter would not drain so urology was consulted and they replaced it with a 24Fr Coude and started CBI. Cath was removed at [facility] on 01/01, pt. presented to the ER for gross hematuria and clots, CBI performed and urine cleared up upon discharge cath was removed. Pt's catheter was removed at [facility] on 01/06/24. 6. Gross hematuria (R31.0: [...] 1 tab(s), Oral, Da (more content not included)...Regional Medical CenterComment on above:Result Comment: Electronically Signed By: DHAVAL Ragsdale APRN, [place] X\.br\Date and Time Signed: 08/08/24 06:57 EST\.br\Electronically Co-Signed By: Margarette Hi\.br\Date and Time Co-Signed: 08/05/24 15:00 ESTAmbulatory Visit Summaryon 08-05-2024 Ambulatory Visit SummaryAmbulatory Visit Summary CHARLINE FAITH Grupo :1945 Visit Date:08/05/2024 Ambulatory Visit Instructions Your [...] Follow-Up Appointments Thursday2025 9:00 AM EST With: DHAVAL Ragsdale APRN, Humaira X Where: [facility] [address], [address] [place] [address]- You Need to Schedule the Following Appointments [...] gland that is caused by the normal agingprocess. The prostate may get bigger as a man gets older. The condition is not caused by cancer. The prostate is a walnut-sized gland that is involved in the production of semen. It is located in front of the rectum and below the bladder. The bladder stores urine. The urethra carries stored urine ou t of the body. An enlarged prostate can press on the urethra. This can make it harder to pass urine. The buildup of urine in the bladder can cause infection. Back pressure and infection may progress to bladder damage and kidney (renal) failure. What are the causes? This condition is part of the normal aging process. However, not all men develop problems from thiscondition. If the prostate enlarges away from the [...] frequently during the day. (more content not included)...NormalLouis Stokes Cleveland Va Medical CenterComp Metabolic Profon [id number] [Mass/Vol]4.3 g/dLNormal3.5-5.2Mparkwood hospitaly [facility] Comment on above:Performed By: #### VD25, LIPR #### [employer] [address] [place], [place] [phone] Boarding House Cook: Arnav Barnes MD #### MG CP, CDP #### [facility] [address] [place] [address] Boarding House Cook: Carmina Loyola Phos53 U/VLdcquc27-400PhmpcShelby Memorial HospitalComment on above:Performed By: #### VD25, LIPR #### [employer] [address] [place], [place] 8795[address] Boarding House Cook: Arnav Barnes MD #### MG, CP, CDP #### [facility] [address] [place], [place] 3977190 Boarding House Cook: Анна Biswas MDALT [Catalytic activity/Vol]19 U/LNormal5-41[facility] on above:Performed By: #### VD25, LIPR #### [place] [address] [place], [place] 3249208 Boarding House Cook: Arnav Barnes MD #### MG, CP, CDP #### [facility] [address] [place], [place] [phone] Boarding House Cook: Radha Loyola gap [Moles/Vol]14 mmol/LNormal9-17Shelby Memorial HospitalComtrinity health ann arbor hospital on above:Performed By: #### VD25, LIPR #### [address] [phone] Boarding House Cook: Arnav Barnes MD #### MG, CP, CDP #### [facility] [address] [place], [place] [phone] Boarding House Cook: Анна Biswas MDAST [Catalytic activity/Vol]17 U/LNormal<40Shelby Memorial HospitalComtrinity health ann arbor hospital on above:Performed By: #### VD25, LIPR #### [address] [id number] Boarding House Cook: Arnav Barnes MD #### MG, CP, CDP #### [facility] [address] [place], [place] 57395[address] Boarding House Cook: Анна Biswas MDBilirubin [Mass/Vol]0.4 mg/dLNormal0.3-1.2MUniversity Hospitals Lake West Medical Center on above:Performed By: #### VD25, LIPR #### [address] 9674308 Boarding House Cook: Arnav Barnes MD #### MG, CP, CDP #### [facility] [address] [place] [address] Boarding House Cook: Анна Biswas MDBUN/CRE Jqnno53Rswu5-51SmfkfShelby Memorial Hospital Comment on above:Performed By: #### VD25, LIPR #### [facility] [address] [place] [address] Boarding House Cook: Arnav Barnes MD #### MG, CP, CDP #### [facility] [address] [place] [address] Boarding House Cook: Анна Biswas MDCalcium [Mass/Vol]9.6 mg/dLNormal8.6-10.4Shelby Memorial HospitalComment on above:Performed By: #### VD25, LIPR #### [address] [address] Boarding House Cook: Arnav Barnes MD #### MG CP, CDP #### [facility] [address] [place] [address] Boarding House Cook: BRENDEN Loyolahloride [Moles/Vol]102 mmol/RCuijlt06-822GhmpkShelby Memorial HospitalComment on above:Performed By: #### VD25, LIPR #### [address] [address] Boarding House Cook: Arnav Barnes MD #### MG CP, CDP #### [facility] [address] [place] [address] Boarding House Cook: BRENDEN LoyolaO2 [Moles/Vol]26 mmol/GRuzjol42-14GeazhShelby Memorial HospitalComment on above:Performed By: #### VD25, LIPR #### [address] [address] Boarding House Cook: Arnav Barnes MD #### MG CP, CDP #### [facility] [address] [place], [place] 7810290 Boarding House Cook: BRENDEN Loyolareatinine [Mass/Vol]1.0 mg/dLNormal0.7-1.2MMain Campus Medical CenterComment on above:Performed By: #### VD25, LIPR #### [address] [address] Boarding House Cook: Arnav Barnes MD #### MG, CP, CDP #### [facility] [address] [place], [place] [phone] Boarding House Cook: Анна Biswas MDGFR/1.73 sq M.predicted among non-blacks MDRD (S/P/Bld) [Vol rate/Area]77 mL/min/{1.73_m2}Normal>60[facility] Comment on above:Result Comment: These results are not intended for [...] or following therapy that affects renal tubular secretion.Performed By: #### VD25, LIPR #### [address] [id number] Boarding House Cook: Arnav Barnes MD #### ISATU WELSH, CDP #### [facility] [address] [place], [place] 3435[address] Boarding House Cook: Анна Biswas MDGlucose [Mass/Vol]116 mg/nKYlgz68-67RukwiMain Campus Medical CenterComment on above:Performed By: #### ILSA25, LIPR #### [address] [address]69508 Boarding House Cook: Arnav Barnes MD #### MG, CP, CDP #### [facility] [address] [place], [place] 6295[address] Boarding House Cook: GILLES Loyolaotassium [Moles/Vol]4.0 mmol/LNormal3.7-5.3MMain Campus Medical CenterComment on above:Performed By: #### VD25, LIPR #### [address] 0232408 Boarding House Cook: Arnav Barnes MD #### MG, CP, CDP #### [facility] [address] [place] [address] Boarding House Cook: Анна Biswas MDProtein [Mass/Vol]7.4 g/dLNormal6.4-8.3MMain Campus Medical CenterComment on above:Performed By: #### VD25, LIPR #### [place] [address] Boarding House Cook: Arnav Barnes MD #### , CP, CDP #### [facility] [address] [place] [address] Boarding House Cook: ZAN Loyolaodium [Moles/Vol]142 mmol/WZbthoy482-713XubrwShelby Memorial HospitalComment on above:Performed By: #### VD25, LIPR #### [place] [address] Boarding House Cook: Arnav Barnes MD #### MG CP, CDP #### [facility] [address] [place] [address] Boarding House Cook: Анна Biswas MDUrea nitrogen [Mass/Vol]21 mg/dLNormal8-23Shelby Memorial HospitalComment on above:Performed By: #### VD25, LIPR #### [address] [id number] Boarding House Cook: Arnav Barnes MD #### MG, CP, CDP #### [facility] [address] [place] [address] Boarding House Cook: Анна Biswas, [facility] Metabolic Panelon [id number] [Mass/Vol]4.3 g/dL3.5 - 5.2 g/dLBon SecDang Le HealthALP [Catalytic activity/Vol]53 U/L40 - 129 U/LBon SecDang Le HealthALT [Catalytic activity/Vol]19 U/L5 - 41 U/LBon Secours Asterias BiotherapeuticsAnion gap [Moles/Vol]14 mmol/L9 - 17 mmol/LBon Secours Appcara Inc HealthAST [Catalytic activity/Vol]17 U/L NINF - 40 U/LBon Secours Asterias BiotherapeuticsBilirubin [Mass/Vol]0.4 mg/dL0.3 - 1.2 mg/dLBon Secours Asterias BiotherapeuticsCalcium [Mass/Vol]9.6 mg/dL8.6 - 10.4 mg/dLBon Secours Appcara Inc HealthChloride [Moles/Vol]102 mmol/L98 - 107 mmol/LBon Secours Asterias BiotherapeuticsCO2 [Moles/Vol]26 mmol/L20 - 31 mmol/LBon SecMentorCloud Creatinine [Mass/Vol]1.0 mg/dL0.7 - 1.2 mg/dLBon Secours Asterias BiotherapeuticsEst, Glom Filt Rate77- PINFBon SecMentorCloudComment on above: These results are not intended [...] therapy that affects renal tubular secretion. Glucose [Mass/Vol]116 mg/qOBmlz13 - 99 mg/dLBon MedWhat Interpretation and review of laboratory resultsAbnormalBon Secours Asterias Biotherapeutics Potassium [Moles/Vol]4.0 mmol/L3.7 - 5.3 mmol/LBon SecDang Le HealthProtein [Mass/Vol]7.4 g/dL6.4 - 8.3 g/dLBon Secours Asterias BiotherapeuticsSodium [Moles/Vol]142 mmol/L135 - 144 mmol/LBon SecMentorCloudUrea nitrogen [Mass/Vol]21 mg/dL8 - 23 mg/dLBon Twin City HospitalUrea nitrogen/Creatinine [Mass ratio]21 mg/mg High9 - 20Bon Twin City HospitalBon Twin City HospitalLipid Panelon 51-84-1189Iqghbqyxxqn [Mass/Vol]155 mg/dL0 - 199 mg/dLBon [facility] Hospital Comment on above: Cholesterol Guidelines: <200 Desirable 200-240 Borderline >240 Undesirable Cholesterol in HDL [Mass/Vol]54 mg/dL40 - PINF mg/dLBInova Children's Hospital Comment on above: HDL Guidelines: <40 Undesirable 40-59 Borderline >59 Desirable Cholesterol in LDL [Mass/Vol]90 mg/dL0 - 100 mg/dLBon [facility] Hospital Comment on above: LDL Guidelines: <100 Desirable 100-129 Near to/above Desirable 130-159 Borderline >159 Undesirable Direct (measured) LDL and calculated LDL are not interchangeable tests. Cholesterol in VLDL [Mass/Vol]11 mg/dL1 - 30 mg/dLBInova Children's Hospital Cholesterol.total/Cholesterol in HDL [Mass ratio]2.9 {ratio}[facility] Health - DanvilleTriglyceride [Mass/Vol]56 mg/dLNINF - 150 mg/dLBInova Children's Hospital Comment on above: Triglyceride Guidelines: <150 Desirable 150-199 Borderline 200-499 High >499 Very high Based on AHA Guidelines for fasting triglyceride, March 2012. Sovah Health - DanvilleLipid Profileon 53-23-3673Ieuyhknwszi [Mass/Vol]155 mg/dLNormal0-199Shelby Memorial HospitalComment on above:Result Comment: Cholesterol Guidelines: <200 Desirable 200-240 Borderline >240 UndesirablePerformed By: #### VD25, LIPR #### [facility] [employer] [address] [place] [address] Boarding House Cook: Arnav Barnes MD #### MG, CP, CHARITO #### [facility] [address] [place] [address] Boarding House Cook: BRENDEN Loyolaholesterol in HDL [Mass/Vol]54 mg/dLNormal>40 [facility] HospitalComment on above:Result Comment: HDL Guidelines: <40 Undesirable 40-59 Borderline >59 DesirablePerformed By: #### VD25, LIPR #### [address] [address] Boarding House Cook: Arnav Barnes MD #### MG, CP, CDP #### [facility] [address] [place], [place] [phone] Boarding House Cook: BRENDEN Loyolaholesterol in LDL [Mass/Vol]90 mg/dLNormal0-100 [facility] on above:Result Comment: LDL Guidelines: <100 Desirable 100-129 Near to/above Desirable 130-159 Borderline >159 Undesirable Direct (measured) LDL and calculated LDL are not interchangeable tests.Performed By: #### VD25, LIPR #### [address] [address] Boarding House Cook: Arnav Barnes MD #### MG, CP, CDP #### [facility] [address] [place], [place] 758[address] Boarding House Cook: BRENDEN Loyolaholesterol in VLDL [Mass/Vol]11 mg/dLNormal1-30 [facility] on above:Performed By: #### VD25, LIPR #### [address] [address] Boarding House Cook: Arnav Barnes MD #### MG, CP, CDP #### [facility] [address] [place], [place] 5324[address] Boarding House Cook: Kim Loyolastgiana.total/Cholesterol in HDL [Mass ratio] 2.9 {ratio}NormalOhioHealth Van Wert Hospital on above:Performed By: #### VD25, LIPR #### [address] [address] Boarding House Cook: Arnav Barnes MD #### MG, CP, CDP #### [facility] [address] [place], [place] 350[address] Boarding House Cook: Анна Biswas MDTriglyceride [Mass/Vol]56 mg/dLNormal<150[facility] on above:Result Comment: Triglyceride Guidelines: <150 Desirable 150-199 Borderline 200-499 High >499 Very high Based on AHA Guidelines for fasting triglyceride, March 2012.Performed By: #### VD25, LIPR #### [facility] [employer] [address], [place] [id number] Boarding House Cook: Arnav Barnes MD #### MG, CP, CDP #### [facility] [address] [place], [place] [id number] Boarding House Cook: GLENNA Loyola Screeningon 20-52-8297Ijzzqalv specific Ag [Mass/Vol]3.40 ng/mL0.00 - 4.00 ng/mLBon [facility] on above: The Nataliya ECLIA assay is used. Results obtained with different assay methods cannot be used interchangeably. Bon [facility], Screeningon 59-16-3368Mqbpuuzyo Spec. Ag3.40 ng/mL Normal0.00-4.00[facility] on above:Result Comment: The Nataliya ECLIA assay is used. Results obtained with different assay methods cannot be used interchangeably.Performed By: #### VD25, LIPR #### [facility] [address] [place] [address] Boarding House Cook: Arnav Barnes MD #### MG, CP, CDP #### [facility] [address] [place] [address] Boarding House Cook: Анна Biswas MDUS.doppler Carotid arteries - bilateralon 87-22-5596[address] [address] Ultrasound Report Signed Patient: FAITH PENN MR#: [id number] : 1945 Acct:[id number] Age/Sex: 78 / M ADM Date: 01/19/24 Loc: US Attending Dr: Marlys Garcia M.D. Ordering Physician: Marlys Garcia M.D. Date of Service: 01/19/24 Procedure(s): US carotid duplex BI Accession Number(s): [id number] cc: Candace Giron NP; Marlys Garcia M.D. [place] [address] Patient Name: FAITH PENN MRN: [facility]:[id number] date: 1945 Sex: M Assigned Patient Location: US Current Patient Location: US Accession/Order Number: [id number] Exam Date: 01/19/2024 15:12 Report Date: 01/20/2024 [...] standard protocol. ICA/CCA ratios are calculated with dairy supplies sales representative peak-systolic velocities and recorded. Vertebral [...] Signed By: 01/20/24 1035 DD/ 1033 TD/TT: Director Risk:JOSEFINAHRadiology, Radiologist, - 01/20/2024 [place] [address] Ultrasound Report Signed Patient: FAITH PENN MR#: [id number] : 1945 Acct:[id number] Age/Sex: 78 / M ADM Date: 01/19/24 Loc: US Attending Dr: Marlys Garcia M.D. Ordering Physician: Marlys Garcia M.D. Date of Service: 01/19/24 Procedure(s): US carotid duplex BI Accession Number(s): [id number] cc: Candace Giron NP; Marlys Garcia M.D. The [address] [address] Patient Name: FAITH PENN MRN: [id number] date: 1945 Sex: M Assigned Patient Location: US Current Patient Location: US Accession/Order Number: [id number] Exam Date: 01/19/2024 15:12 Report Date: 01/20/2024 10:33 At the request of: MARYLS GARCIA Procedure: US carotid duplex BI DUPLEX ULTRASOUND EXAMINATION OF THE CAROTID ARTERIES. COMPARISON: 10/31/2023. HISTORY / INDICATIONS: History of endarterectomy. TECHNIQUE: Bilateral common carotid arteries, extracranial internal and external carotid arteries are evaluated with balderrama-scale imaging, color Doppler, and spectral analysis according to a standard protocol. ICA/CCA ratios are calculated with dairy supplies sales representative peak-systolic velocities and recorded. Vertebral [...] Signed By: 01/20/24 1035 DD/ 1033 TD/TT: Director Risk: [facility] HealthcareRadiology Study observation (narrative)[facility]SmithvilleUS.doppler Carotid arteries - bilateralOrdered By: Radiologist Radiology on 90-78-9616BQBQSaint Luke's North Hospital–Smithville Work Phone: bASIC METABOLIC PANLon 22-23-6035Eipao gap [Moles/Vol] 8 mmol/LNormal5-15ProMercy Health Perrysburg HospitalComment on above:Performed By: #### JAMES MONROYR, 20180-3, BMP #### [facility] ([id number]) [address], [address] [place], [place] [address]Uemvomp [Mass/Vol]8.3 mg/dLLow8.5-10.5PJoint Township District Memorial Hospital Comment on above:Performed By: #### PORFIRIO PINR, 40156-5, BMP #### [facility] ([id number]) [address], [address] [place], [place] [address]Teybppsq [Moles/Vol]110 mmol/GYtxy03-487NtsLbufmnMercy Health Perrysburg HospitalComment on above:Performed By: #### PORFIRIO PINR, 74237-6, BMP #### [facility] ([id number]) [address], [address] [place], [place] [address]QD2 [Moles/Vol]22 mmol/FIclryl93-97JjlWantgmJoint Township District Memorial Hospital Comment on above:Performed By: #### PORFIRIO PINR, 86099-1, BMP #### [facility] ([id number]) [address], [address] [place], [place] [address]Cjdftfcyba [Mass/Vol]0.76 mg/dLNormal0.60-1.30ProTrihealth Bethesda Butler Hospitalca Baltimore HospitalComment on above:Result Comment: METHOD TRACEABLE TO IDMS STANDARD Performed By: #### BRANDON MONROY, 53746-4, BMP #### [facility] ([id number]) [address], [address] [place], [place] [address]jJQY (CKD-EPI) NON-RACE DEPENDENT>90Normal>59ProMedica Baltimore HospitalComment on above:Result Comment: Reported eGFR is based on the CKD-EPI 2020 equation that does not use a race coefficient.Performed By: #### BRANDON MONROY, 05675-3, BMP #### [facility] ([id number]) [address], [address] [place], [place] [address]Fnqnaom [Mass/Vol]109 mg/dTDese46-03WaiQszpul [facility] Comment on above:Performed By: #### BRANDON MONROY, 70271-9, BMP #### [facility] ([id number]) [address], [address] [place], [place] [address]Uitawkrjw [Moles/Vol]4.1 mmol/LNormal3.5-5.0ProMedica Baltimore HospitalComment on above:Performed By: #### BRANDON MONROY, 81289-4, BMP #### [facility] ([id number]) [address], [address] [place], [place] [address]Fgolwz [Moles/Vol]140 mmol/EKxgogf363-723IsuPombhz Franz HospitalComment on above:Performed By: #### BRANDON MONROY, 94814-5, BMP #### [facility] ([id number]) [address], [address] [place], [place] [address]Nkby nitrogen [Mass/Vol]15 mg/dLNormal5-27ProMedica Baltimore HospitalComment on above:Performed By: #### BRANDON MONROY, 29817-4, BMP #### [facility] ([id number]) [address], [address] [place], [place] [address]Evzdb Metabolic Panelon 56-88-2919Fhuxe gap [Moles/Vol]8 mmol/L5 - 15 mmol/LPrHermann Area District Hospitalica Health SystemCalcium [Mass/Vol]8.3 mg/dLLow8.5 - 10.5 mg/dLProSt. John Of God Hospital SystemChloride [Moles/Vol]110 mmol/LHigh98 - 109 mmol/L [facility] SystemCO2 [Moles/Vol]22 mmol/L22 - 32 mmol/LPrHermann Area District Hospitalica [facility] SystemCreatinine [Mass/Vol]0.76 mg/dL0.60 - 1.30 mg/dLSt. John of God Hospital Comment on above:METHOD TRACEABLE TO IDNV STANDARDeGFR (CKD-EPI)non-race dependent- [facility] The King's DaughtersComment on above: Reported eGFR is based on the CKD-EPI 2020 equation that does not use a race coefficient. Glucose [Mass/Vol]109 mg/kKXfpd05 - 99 mg/dLSt. John of God Hospital Interpretation and review of laboratory resultsAbnormalSycamore Medical Center System Potassium [Moles/Vol]4.1 mmol/L3.5 - 5.0 mmol/[facility] Hospitalica Health SystemSodium [Moles/Vol]140 mmol/L134 - 146 mmol/[facility] SystemUrea nitrogen [Mass/Vol]15 mg/dL5 - 27 mg/dLSt. John of God HospitalProDiley Ridge Medical CenterCBC without diffon 65-27-4870Qtqrulistbg distribution width (RBC) [Ratio]13.6 %11.5 - 15.0 %[facility] SystemHematocrit (Bld) [Volume fraction]32.3 %Low39 - 49 %St. [facility] of God HospitalHemoglobin (Bld) [Mass/Vol]11.0 g/dLLow13.0 - 17.0 g/dLSt. John of God HospitalInterpretation and review of laboratory results AbnormalSt. John of God HospitalMCH (RBC) [Entitic mass]32.7 pg27 - [address] [facility] God HospitalMCHC (RBC) [Mass/Vol]34.1 g/dL32 - 36 g/dLSt. John of God HospitalMCV (RBC) [Entitic vol]96 fL80 - 100 [facility] Platelet mean volume (Bld) [Entitic vol]7.9 fL7 - 12 [facility] Platelets (Bld) [#/Vol]192 10*3/uLSt. John of God HospitalRBC (Bld) [#/Vol]3.37 10*6/uLLowSt. John of God HospitalWBC corrected for nucl RBC Auto (Bld) [#/Vol] 8.6The Children's Hospital FoundationCOMPLETE BLOOD COUNTon 83-84-0874Syyhjrotvwz distribution width (RBC) [Ratio]13.6 %Hrbska05.5-15.0 ProMRegency Hospital Cleveland East HospitalComment on above:Performed By: #### BRANDON MONROY, 25932- 9, BMP #### [facility] ([id number]) [address], [address] [place], [place] [address]Vruamsfhzj (Bld) [Volume fraction]32.3 %Oan93-47ImeAryvkr [place] HospitalComment on above:Performed By: #### JAMES MONROYR, 17122-2, BMP #### [facility] ([id number]) [address], [address] [place], [place] [address]Nsjoenodng (Bld) [Mass/Vol]11.0 g/dLLow13.0-17.0[facility] HospitalComment on above:Performed By: #### JAMES MONROYR, 23287-7, BMP #### [facility] ([id number]) [address], [address] [place], [place] [address]CUB (RBC) [Entitic mass]32.7 cmUezxcx24-78GfzBqzgsg [place] HospitalComment on above:Performed By: #### PORFIRIO PINR, 54504-6, BMP #### [facility] ([id number]) [address], [address] [place], [place] [address]CTPL (RBC) [Mass/Vol]34.1 g/oAPczhwv62-98GqtBygnrk [place] HospitalComment on above:Performed By: #### BRANDON MONROY, 38287-0, BMP #### [facility] ([id number]) [address], [address] [place], [place] [address]BBN (RBC) [Entitic vol]96 dKQifxer36-027JtjAgdlxr Franz HospitalComment on above:Performed By: #### BRANDON MONROY, 38846-4, BMP #### [facility] ([id number]) [address], [address] [place], [place] [address]Ytojmjmk mean volume (Bld) [Entitic vol]7.9 fLNormal7-12 ProMedica Franz HospitalComment on above:Performed By: #### BRANDON MONROY, 75815- 9, BMP #### [facility] ([id number]) [address], [address] [place], [place] [address]Hnlchwqeg (Bld) [#/Vol]192 10*3/yZCputmq500-455SxkUuiiib Franz HospitalComment on above:Performed By: #### BRANDON MONROY, 31151-1, BMP #### [facility] ([id number]) [address], [address] [place], [place] [address]KEJ COUNT3.37 X10E12/LLow4.10-5.70[facility] Comment on above:Performed By: #### JAMES MONROYR, 51579-9, BMP #### [facility] ([id number]) [address], [address] [place], [place] [address]QHR (Bld) [#/Vol]8.6 10*3/uLNormal4.0-11.0ProMedica Franz HospitalComment on above:Performed By: #### PORFIRIO, PINR, 23805-2, BMP #### [facility] ([id number]) [address], [address] [place], [place] [address]HSR WITH REFLEXon 47-01-6836LJJ1.69 uIU/mLNormal0.49-4.67 [facility] CenterComment on above:Performed By: #### CBCA, PINR, 93431- 9, BMP #### [facility] ([id number]) [address], [address] [place], [place] [address]XLI with Reflexon 61-38-7362FCH Qn1.69 m[IU]/LProMedUniversity Hospitals Cleveland Medical CenterProSt. John Of God Hospital SystemAPTTon 56-11-6019rEOC Coag (PPP) [Time][address] [facility] God HospitalBASI METABOLIC PANLon 12-98-5166Pwepr gap [Moles/Vol]9 mmol/LNormal5-15ProMercy Health Perrysburg HospitalComment on above:Performed By: #### RICARDO, 38343-6 #### [facility] ([id number]) [address], [address] [place], [place] [address]Cmosxqt [Mass/Vol]8.2 mg/dLLow8.5-10.5PJoint Township District Memorial Hospital Comment on above:Performed By: #### RICARDO, 14248-9 #### [facility] ([id number]) [address], [address] [place], [place] [address]Zyiclqxu [Moles/Vol]109 mmol/ZAagtkp06-312YfkSkxskt [facility] HospitalComment on above:Performed By: #### RICARDO, #### [facility] ([id number]) [address], [address] [place], [place] [address]FV9 [Moles/Vol]22 mmol/KWgqhry95-97JyfJqmopdJoint Township District Memorial Hospital Comment on above:Performed By: #### RICARDO, #### [facility] ([id number]) [address], [address] [place], [place] [address]Xlclgapqyu [Mass/Vol]0.82 mg/dLNormal0.60-1.30ProMercy Health Perrysburg HospitalComment on above:Result Comment: METHOD TRACEABLE TO IDMS STANDARD Performed By: #### BMP, #### [facility] ([id number]) [address], [address] [place], [place] [address]OND/1.73 sq M.predicted among non-blacks MDRD (S/P/Bld) [Vol rate/Area]90 mL/min/{1.73_m2}Normal>59ProMercy Health Perrysburg HospitalComment on above: Result Comment: Reported eGFR is based on the CKD-EPI 2020 equation that does not use a race coefficient.Performed By: #### RICARDO, #### [facility] ([id number]) [address], [address] [place], [place] [address]Ycflnvv [Mass/Vol]131 mg/qPWalc00-31FxzVycpxmSouthern [facility] Medical Center Comment on above:Performed By: #### RICARDO, #### [facility] ([id number]) [address], [address] [place], [place] [address]Cuekvtiid [Moles/Vol]3.8 mmol/LNormal3.5-5.0ProCleveland Clinic Union Hospital HospitalComment on above:Performed By: #### RICARDO, #### [facility] ([id number]) [address], [address] [place], [place] [address]Ofytne [Moles/Vol]140 mmol/XKoftjp913-296ToyZxxxgq [facility] HospitalComment on above:Performed By: #### RICARDO, #### [facility] ([id number]) [address], [address] [place], [place] [address]Qacq nitrogen [Mass/Vol]18 mg/dLNormal5-27ProMercy Health Perrysburg HospitalComment on above:Performed By: #### RICARDO, #### [facility] ([id number]) [address], [address] [place], [place] [address]Pwkef gap [Moles/Vol]8 mmol/LNormal5-15[facility] Comment on above:Performed By: #### BRANDON MONROY, 68412-7, BMP #### [facility] ([id number]) [address], [address] [place], [place] [address]Sfjsyqs [Mass/Vol]9.2 mg/dLNormal8.5-10.5PJoint Township District Memorial HospitalComment on above:Performed By: #### BRANDON MONROY, 73165-2, BMP #### [facility] ([id number]) [address], [address] [place], [place] [address]Tdzcnkfc [Moles/Vol]108 mmol/HUpwjgx66-786ZzxRiniec [place] HospitalComment on above:Performed By: #### BRANDON MONROY, 97862-7, BMP #### [facility] ([id number]) [address], [address] [place], [place] [address]ZR4 [Moles/Vol]25 mmol/WMxplzv03-60VdeFbpkhqJoint Township District Memorial Hospital Comment on above:Performed By: #### BRANDON MONROY, 90602-0, BMP #### [facility] ([id number]) [address], [address] [place], [place] [address]Oxypjfdazz [Mass/Vol]0.93 mg/dLNormal0.60-1.30ProMercy Health Perrysburg HospitalComment on above:Result Comment: METHOD TRACEABLE TO IDMS STANDARD Performed By: #### BRANDON MONROY, 59800-9, BMP #### [facility] ([id number]) [address], [address] [place], [place] [address]GHB/1.73 sq M.predicted among non-blacks MDRD (S/P/Bld) [Vol rate/Area]84 mL/min/{1.73_m2}Normal>59ProMercy Health Perrysburg HospitalComment on above: Result Comment: Reported eGFR is based on the CKD-EPI 2020 equation that does not use a race coefficient.Performed By: #### BRANDON MONROY, 75949-1, BMP #### [facility] ([id number]) [address], [address] [place], [place] [address]Yfmmwvs [Mass/Vol]107 mg/iUKswm10-88QpnOacusrMercy Health Perrysburg Hospital Comment on above:Performed By: #### BRANDON MONROY, 91390-2, BMP #### [facility] ([id number]) [address], [address] [place], [place] [address]Kbsgbvord [Moles/Vol]3.9 mmol/LNormal3.5-5.0ProMercy Health Perrysburg HospitalComment on above:Performed By: #### BRANDON MONROY, 59097-7, BMP #### [facility] ([id number]) [address], [address] [place], [place] [address]Urjmbq [Moles/Vol]141 mmol/VCvhqbx076-990MtwSkjfgp [facility] HospitalComment on above:Performed By: #### BRANDON MONROY, 17459-6, BMP #### [facility] ([id number]) [address], [address] [place], [place] [address]Vmie nitrogen [Mass/Vol]19 mg/dLNormal5-27ProCleveland Clinic Union Hospital HospitalComment on above:Performed By: #### BRANDON MONROY, 73537-9, BMP #### [facility] ([id number]) [address], [address] [place], [place] [address]Ytvkh Metabolic Panelon 99-03-8977Jcdbw gap [Moles/Vol]9 mmol/L5 - 15 mmol/LProMedica Health SystemCalcium [Mass/Vol]8.2 mg/dLLow8.5 - 10.5 mg/dLProMedica Health SystemChloride [Moles/Vol]109 mmol/L98 - 109 mmol/L [facility] Health SystemCO2 [Moles/Vol]22 mmol/L22 - 32 mmol/LProMedica Health SystemCreatinine [Mass/Vol]0.82 mg/dL0.60 - 1.30 mg/dLProSt. John Of God Hospital System Comment on above:METHOD TRACEABLE TO [facility] STANDARDeGFR (CKD-EPI)non-race gwszyecil82L[facility]itional Care HospitalComment on above: Reported eGFR is based on the CKD-EPI 2021 equation that does not use a race coefficient. Glucose [Mass/Vol]131 mg/tVKfeh12 - 99 mg/dLSt. John of God Hospital Interpretation and review of laboratory resultsAbnoAtrium Health Kings Mountain Potassium [Moles/Vol]3.8 mmol/L3.5 - 5.0 mmol/LProMedica Health SystemSodium [Moles/Vol]140 mmol/L134 - 146 mmol/[facility] Health SystemUrea nitrogen [Mass/Vol]18 mg/dL5 - 27 mg/dLSt. John of God HospitalAnion gap [Moles/Vol]8 mmol/L5 - 15 mmol/LPrEstes Park Medical Center Health SystemCalcium [Mass/Vol]9.2 mg/dL8.5 - 10.5 mg/dLSt. John of God HospitalChloride [Moles/Vol]108 mmol/L98 - 109 mmol/L [facility] HospitalCO2 [Moles/Vol]25 mmol/L22 - 32 mmol/[facility] SystemCreatinine [Mass/Vol]0.93 mg/dL0.60 - 1.30 mg/dLSt. [facility] of [facility] Comment on above:METHOD TRACEABLE TO [facility] STANDARDeGFR (CKD-EPI)non-race ofygvudjb87[facility] HospitalComment on above: Reported eGFR is based on the CKD-EPI 2021 equation that does not use a race coefficient. Glucose [Mass/Vol]107 mg/mYKsyv86 - 99 mg/dLSt. [facility] of [facility] Hospital Interpretation and review of laboratory resultsAbMaimonides Midwood Community Hospital Potassium [Moles/Vol]3.9 mmol/L3.5 - 5.0 mmol/[facility]inaEast [facility] CenteroMedica Health SystemSodium [Moles/Vol]141 mmol/L134 - 146 mmol/[facility] Health SystemUrea nitrogen [Mass/Vol]19 mg/dL5 - 27 mg/dLThe Children's Hospital FoundationCBC AND AUTO DIFFon 92-56-3416RYNSMSGY BASOPHIL0.0 X10E9/LNormal0.0-0.2PJoint Township District Memorial HospitalComment on above:Performed By: #### CBCA #### [facility] ([id number]) [address], [address] [place], [place] [address]TEOHMIFE NEUTROPHIL6.6 X10E9/LNormal1.5-6.6ProCleveland Clinic Union Hospital HospitalComment on above:Performed By: #### CBCA #### [facility] ([id number]) [address], [address] [place], [place] [address]Jqipblmes/100 WBC (Bld)0.3 %NormalSouthern Ohio Medical Center Comment on above:Performed By: #### CBCA #### [facility] ([id number]) [address], [address] [place], [place] [address]Ibtkkdndtqa (Bld) [#/Vol]0.0 10*3/uLNormal0.0-0.4ProCleveland Clinic Union Hospital HospitalComment on above:Performed By: #### CBCA #### [facility] ([id number]) [address], [address] [place], [place] [address]Upqhdvjldht/100 WBC (Bld)0.4 %NormalSouthern Ohio Medical Center Comment on above:Performed By: #### CBCA #### [facility] ([id number]) [address], [address] [place], [place] [address]Ffvbetbqgxv distribution width (RBC) [Ratio]13.3 %Normal 11.5-15.0ProCleveland Clinic Union Hospital HospitalComment on above:Performed By: #### CBCA #### [facility] ([id number]) [address], [address] [place], [place] [address]Dvylgehenw (Bld) [Volume fraction]32.8 %Fok69-05MecJtqonp [place] HospitalComment on above:Performed By: #### CBCA #### [facility] ([id number]) [address], [address] [place], [place] [address]Lshxtzdktw (Bld) [Mass/Vol]11.1 g/dLLow13.0-17.0ProMedica Franz HospitalComment on above:Performed By: #### CBCA #### [facility] ([id number]) [address], [address] [place], [place] [address]Aadtikqiuvp (Bld) [#/Vol]0.8 10*3/uLLow1.0-3.5ProMedica Franz HospitalComment on above:Performed By: #### CBCA #### [facility] ([id number]) [address] [place], [place] [address]Crorxahwtax/100 WBC (Bld)10.4 %NormalProCleveland Clinic Union Hospital Hospital Comment on above:Performed By: #### CBCA #### [facility] ([id number]) [address] [place], [place] [address]YDW (RBC) [Entitic mass]32.3 ejKhuocb59-09FqbYtaorf Franz HospitalComment on above:Performed By: #### CBCA #### [facility] ([id number]) [address] [place], [place] [address]TKQJ (RBC) [Mass/Vol]33.8 g/eYIxqhek71-31LodJruyci Franz HospitalComment on above:Performed By: #### CBCA #### [facility] ([id number]) [address], [address] [place], [place] [address]CJW (RBC) [Entitic vol]95 cIQthums57-017OmjXmcgbc Franz HospitalComment on above:Performed By: #### CBCA #### [facility] ([id number]) [address], [address] [place], [place] [address]Furwxwnjz (Bld) [#/Vol]0.3 10*3/uLNormal0-0.9ProMedica Franz HospitalComment on above:Performed By: #### CBCA #### [facility] ([id number]) [address], [address] [place], [place] [address]Ljftdtmgk/100 WBC (Bld)3.8 %NormalSouthern Ohio Medical Center Comment on above:Performed By: #### CBCA #### [facility] ([id number]) [address] [place], [place] [address]Jummmepxhnt/100 WBC (Bld)85.1 %NormalSouthern Ohio Medical Center Comment on above:Performed By: #### CBCA #### [facility] ([id number]) [address] [place], [place] [address]Xpvdnczj mean volume (Bld) [Entitic vol]7.6 fLNormal7-12 [facility] HospitalComment on above:Performed By: #### CBCA #### [facility] ([id number]) [address], [address] [place], [place] [address]Bqxeufyah (Bld) [#/Vol]170 10*3/dOKkavcw985-110JyxMdtsgg [place] HospitalComment on above:Performed By: #### CBCA #### [facility] ([id number]) [address], [address] [place], [place] [address]YLF COUNT3.44 X10E12/LLow4.10-5.70[facility] Comment on above:Performed By: #### CBCA #### [facility] ([id number]) [address] [place], [place] [address]NSW (Bld) [#/Vol]7.7 10*3/uLNormal4.0-11.0ProMercy Health Perrysburg HospitalComment on above:Performed By: #### CBCA #### [facility] ([id number]) [address], [address] [place], [place] [address]QHFNJALP BASOPHIL0.0 X10E9/LNormal0.0-0.2ProMedica [facility] HospitalComment on above:Performed By: #### BRANDON MONROY, 21211-2, BMP #### [facility] ([id number]) [address], [address] [place], [place] [address]VRAMARBJ NEUTROPHIL2.6 X10E9/LNormal1.5-6.6ProCleveland Clinic Union Hospital HospitalComment on above:Performed By: #### BRANDON MONROY, 14660-1, BMP #### [facility] ([id number]) [address], [address] [place], [place] [address]Uffbrdbob/100 WBC (Bld)0.6 %NormalSouthern Ohio Medical Center Comment on above:Performed By: #### BRANDON MONROY, 32913-1, BMP #### [facility] ([id number]) [address], [address] [place], [place] [address]Qxzwzxqyrbo (Bld) [#/Vol]0.0 10*3/uLNormal0.0-0.4ProC[facility] Clinic Union Hospital HospitalComment on above:Performed By: #### BRANDON MONROY, 96588-8, BMP #### [facility] ([id number]) [address], [address] [place], [place] [address]Qmeeqmbldfn/100 WBC (Bld)1.0 %NormalSouthern [facility] Medical Center Comment on above:Performed By: #### BRANDON MONROY, 26820-9, BMP #### [facility] ([id number]) [address], [address] [place], [place] [address]Naxepdswjfa distribution width (RBC) [Ratio]13.4 %Normal 11.5-15.0ProCleveland Clinic Union Hospital HospitalComment on above:Performed By: #### BRANDON MONROY, 92625-2, BMP #### [facility] ([id number]) [address], [address] [place], [place] [address]Ehraoeyduo (Bld) [Volume fraction]41.5 %Eolrgx48-93HvdUxqphp [facility] HospitalComment on above:Performed By: #### CBCSudhir, PINR, 18505-5, BMP #### [facility] ([id number]) [address], [address] [place], [place] [address]Lsrsymasdl (Bld) [Mass/Vol]13.9 g/rSXnfwsz42.0-17.0[facility] HospitalComment on above:Performed By: #### CBCSudhir, PINR, 01617-0, BMP #### [facility] ([id number]) [address], [address] [place], [place] [address]Khhcnxxcxyd (Bld) [#/Vol]1.2 10*3/uLNormal1.0-3.5[facility] [place] HospitalComment on above:Performed By: #### CBCSudhir, PINR, 20577-2, BMP #### [facility] ([id number]) [address], [address] [place], [place] [address]Ckryswvjehc/100 WBC (Bld)28.0 %NormalProC[facility] Clinic [facility] Hospital Hospital Comment on above:Performed By: #### CBCSudhir, PINR, 81549-8, BMP #### [facility] [facility] ([id number]) [address], [address] [place], [place] [address]UGA (RBC) [Entitic mass]32.3 ioYboiyt79-48TyrFquokj Baltimore HospitalComment on above:Performed By: #### CBCA, PINR, 04041-0, BMP #### [facility] ([id number]) [address], [address] [place], [place] [address]NUJK (RBC) [Mass/Vol]33.6 g/qKFltvir21-60YskMzmhpu Baltimore HospitalComment on above:Performed By: #### CBCA, PINR, 59106-5, BMP #### [facility] ([id number]) [address], [address] [place], [place] [address]VPE (RBC) [Entitic vol]96 xPXdlllb31-952KfgPiviig Baltimore HospitalComment on above:Performed By: #### CBCSudhir, PINR, 62113-0, BMP #### [facility] ([id number]) [address], [address] [place], [place] [address]Fwlzcesei (Bld) [#/Vol]0.4 10*3/uLNormal0-0.9ProMedica Franz HospitalComment on above:Performed By: #### CBCSudhir, PINR, 90174-4, BMP #### [facility] ([id number]) [address], [address] [place], [place] [address]Abdykwfbe/100 WBC (Bld)10.3 %NormalSouthern Ohio Medical Center Comment on above:Performed By: #### CBCSudhir, PINR, 67478-1, BMP #### [facility] ([id number]) [address], [address] [place], [place] [address]Pkwgfkleknt/100 WBC (Bld)60.1 %NormalSouthern Ohio Medical Center Comment on above:Performed By: #### CBCA, PINR, 37441-1, BMP #### [facility] ([id number]) [address], [address] [place], [place] [address]Hitrdicb mean volume (Bld) [Entitic vol]7.5 fLNormal7-12 [facility] Baltimore HospitalComment on above:Performed By: #### CBCA, PINR, 43398- 9, BMP #### [facility] ([id number]) [address], [address] [place], [place] [address]Xvtanegnf (Bld) [#/Vol]197 10*3/hLYonqmp264-573OzlQuevih Franz HospitalComment on above:Performed By: #### CBCA, PINR, 82050-2, BMP #### [facility] ([id number]) [address], [address] [place], [place] [address]UFZ COUNT4.31 X10E12/LNormal4.10-5.70[facility] Comment on above:Performed By: #### BRANDON MONROY, 37405-6, BMP #### [facility] ([id number]) [address], [address] [place], [place] [address]LBD (Bld) [#/Vol]4.3 10*3/uLNormal4.0-11.0Southern [place] Medical CenterComment on above:Performed By: #### BRANDON MONROY, 42156-5, BMP #### [facility] ([id number]) [address], [address] [place], [place] [address]KOK auto differentialon 17-06-2213Ddkderpxh (Bld) [#/Vol]0.0 10*3/uLSycamore Medical Center SystemBasophils/100 WBC (Bld)0.3 %[facility] God HospitalEosinophils (Bld) [#/Vol]0.0 10*3/uLSt. John of God HospitalEosinophils/100 WBC (Bld)0.4 %[facility] HospitalErythrocyte distribution width (RBC) [Ratio]13.3 %11.5 - 15.0 %[facility] HospitalHematocrit (Bld) [Volume fraction]32.8 %Low39 - 49 %[facility] HospitalHemoglobin (Bld) [Mass/Vol] 11.1 g/dLLow13.0 - 17.0 g/dLSt. John of God HospitalInterpretation and review of laboratory resultsAbnormalSt. John of God HospitalLymphocytes (Bld) [#/Vol]0.8 10*3/uLLowSt. John of God HospitalLymphocytes/100 WBC (Bld)10.4 %[facility] HospitalH (RBC) [Entitic mass]32.3 pg27 - 34 [facility] HospitalMCHC (RBC) [Mass/Vol]33.8 g/dL32 - 36 g/dLSt. John of God HospitalMCV (RBC) [Entitic vol]95 fL80 - 100 [facility] SpringsMonocytes (Bld) [#/Vol]0.3 10*3/uL [facility] HospitalMonocytes/100 WBC (Bld)3.8 %[facility] Neutrophils (Bld) [#/Vol]6.6 10*3/uLSt. John of God HospitalNeutrophils/100 WBC (Bld)85.1 %[facility] HospitalPlatelet mean volume (Bld) [Entitic vol]7.6 fL 7 - 12 [facility] SystemPlatelets (Bld) [#/Vol]170 10*3/uLSt. John of God HospitalRBC (Bld) [#/Vol]3.44 10*6/uLLowSt. John of God HospitalWBC corrected for nucl RBC Auto (Bld) [#/Vol]7.7The [facility] Hospital FoundationBasophils (Bld) [#/Vol]0.0 10*3/uLSt. John of God Hospital Basophils/100 WBC (Bld)0.6 %[facility] HospitalEosinophils (Bld) [#/Vol]0.0 10*3/uLSt. John of God HospitalEosinophils/100 WBC (Bld)1.0 %[facility] HospitalErythrocyte distribution width (RBC) [Ratio]13.4 %11.5 - 15.0 %[facility] HospitalHematocrit (Bld) [Volume fraction]41.5 %39 - 49 %[facility] HospitalHemoglobin (Bld) [Mass/Vol]13.9 g/dL13.0 - 17.0 g/dLSt. John of God HospitalLymphocytes (Bld) [#/Vol]1.2 10*3/uLSt. John of God HospitalLymphocytes/100 WBC (Bld)28.0 %[facility] HospitalMCH (RBC) [Entitic mass]32.3 pg27 - [address] [facility] HospitalMCHC (RBC) [Mass/Vol]33.6 g/dL32 - 36 g/dLSt. John of God HospitalMCV (RBC) [Entitic vol]96 fL80 - 100 [facility] Monocytes (Bld) [#/Vol]0.4 10*3/[facility] Eye InstituteMonocytes/100 WBC (Bld) 10.3 %[facility] SystemNeutrophils (Bld) [#/Vol]2.6 10*3/uLSycamore Medical Center SystemNeutrophils/100 WBC (Bld)60.1 %[facility] HospitalPlatelet mean volume (Bld) [Entitic vol]7.5 fL7 - 12 fLPBethesda North Hospital SystemPlatelets (Bld) [#/Vol]197 10*3/[facility] Health SystemRBC (Bld) [#/Vol]4.31 10*6/[facility] Eye InstituteWBC corrected for nucl RBC Auto (Bld) [#/Vol]4.3[facility] Memorial HospitalCalcium.ionized (Bld) [Mass/Vol]on 12-29-2023 [facility] HospitalIONIZED CALCIUM4.5 mg/dLNormal4.5-5.3PAultman Alliance Community Hospital HospitalComment on above:Performed By: #### 21592-3 #### [facility] ([id number]) [address], [address] [place], [place] [address]YVC 12 leadon 76-78-0540FVLEJCNBYMDVJVFbgCbuzha Health SystemHGB AND HCTon 70-52-3711Ieowwfebfh (Bld) [Volume fraction]31.6 %Esl34-74YcyUhwiys Toledo HospitalComment on above:Performed By: #### CBCA, PINR, 09251-6, BMP #### [facility] ([id number]) [address], [address] [place], [place] [address]Odrsbkxtbm (Bld) [Mass/Vol]11.2 g/dLLow13.0-17.0Southern [facility] Medical CenterComment on above:Performed By: #### CBCA, PINR, 97766-3, BMP #### [facility] ([id number]) [address], [address] [place], [place] [address]Eyrruorpso and hematocrit, bloodon 76-06-2341Mujbhrgaqn (Bld) [Volume fraction]31.6 %Low39 - 49 %[facility] HospitalHemoglobin (Bld) [Mass/Vol]11.2 g/dLLow13.0 - 17.0 g/dLSt. John of God HospitalInterpretation and review of laboratory resultsAbnormalProSt. John Of God Hospital SystemProSt. John Of God Hospital SystemIonized calciumon 96-33-8068Erffaul.ionized (Bld) [Mass/Vol]4.5 mg/dL4.5 - 5.3 mg/dLSt. John of God HospitalIonized magnesiumon 10-37-9101Gwbtlroas Ionized ISE (Bld) [Moles/Vol]0.63 mmol/L0.45 - 0.74 mmol/LPrWilson Memorial Hospital Comment on above:NEW REFERENCE RANGEMAGNESIUMon 83-39-6556Svyfmddii [Mass/Vol] 2.1 mg/dLNormal1.8-2.6Southern [facility] Medical CenterComment on above:Performed By: #### BMP, 10633-8 #### [facility] ([id number]) [address] [place], [place] [address]Gdmkwsgonah 86-95-3223Hiqklcrcz [Mass/Vol]2.1 mg/dL1.8 - 2.6 mg/dLSt. John of God HospitalMagnesium Ionized ISE (Bld) [Moles/Vol]on 12-29-2023 [facility] HospitalMagnesium [Moles/Vol]0.63 mmol/LNormal0.45-0.74Southern [place] Medical CenterComment on above:Result Comment: NEW REFERENCE RANGEPerformed By: #### 42044-9 #### [facility] ([id number]) [address], [address] [place], [place] [address]Qu Panel Informationon 59-97-0949LanRcjshlUniversity of Pennsylvania Health SystemPOCT ABG Rapid K GLU ICA HHon 70-69-5197Hhescxhh patency Wrist artery --pre arterial punctureSt. John of God HospitalBase deficit (Bld) [Moles/Vol]2.0 mmol/LPrHermann Area District Hospitalica [facility] SystemCalcium.ionized ISE [Moles/Vol]4.6 mg/dL4.5 - 5.3 mg/dLSt. John of God HospitalCO2 (Bld) [Partial pressure]33.9 mm[Hg]LowProDiley Ridge Medical CenterGlucose [Mass/Vol]111 mg/fYGggj23 - 99 mg/dL [facility] HospitalHCO3 (Bld) [Moles/Vol]22.4 mmol/LPrHermann Area District Hospitalica [facility] System Hematocrit (Bld) [Volume fraction]37 %Low39 - 49 %[facility] Hemoglobin (Bld) [Mass/Vol]12.1 g/dLLow13.0 - 17.0 g/dLSycamore Medical Center System Interpretation and review of laboratory resultsAbnormalSt. John of God Hospital Oxygen (Bld) [Partial pressure]254 mm[Hg]HighSt. John of God Hospital Oxygen/Inspired gas setting [Volume Fraction] Ixnvpjnvez757 %St[facility] God HospitalpH (Bld)7.428 [pH]7.350 - 7.450[facility] SystemPotassium [Moles/Vol]3.8 mmol/L3.5 - 5.0 mmol/LPrHermann Area District Hospitalica [facility] SystemSpecimen site NarrativeALINEAtrium Health Huntersvillepecimen type Nom (Spec)ArterialThe Children's Hospital FoundationPROTIME AND INRon 16-99-0442RPC Coag (PPP) [Relative time]1.0 {INR}Normal0.8-1.1PJoint Township District Memorial HospitalComment on above: Performed By: #### BRANDON MONROY, 78797-7, BMP #### [facility] ([id number]) [address], [address] [place], [place] [address]RR Coag (PPP) [Time]12.0 sNormal9.8-13.2PJoint Township District Memorial HospitalComment on above:Performed By: #### BRANDON MONROY, 19406-8, BMP #### [facility] ([id number]) [address], [address] [place], [place] [address]Lyxfbda & INRon 78-56-6401JXB Coag (PPP) [Relative time]1.0 {INR}[facility] SystemPT Coag (PPP) [Time]12.0 [facility] RAPID CARDIACon 90-57-3027HCEJW' TESTNormalSouthern Ohio Medical CenterComment on above:Performed By: #### AFAB5 #### [facility] ([id number]) [address] [place], [place] [address]WFFZ,DEFICIT2.0 MMOL/LNormal0.0-2.0[facility] Comment on above:Performed By: #### AFAB5 #### [facility] ([id number]) [address] [place], [place] [address]Behc ehydeajmqzm07.6 [degF]Hvvdqg08.0[facility] Comment on above:Performed By: #### AFAB5 #### [facility] ([id number]) [address] [place], [place] [address]Gntqnyl [Mass/Vol]111 mg/iGFhme03-49BrhQxjnjdSouthern [facility] Medical Center Comment on above:Performed By: #### AFAB5 #### [facility] ([id number]) [address] [place], [place] [address]LNI2 (Bld) [Moles/Vol]22.4 mmol/CNjjdbp12-30TytVlxcfqMercy Health Perrysburg HospitalComment on above:Performed By: #### AFAB5 #### [facility] ([id number]) [address] [place], [place] [address]Jdgurzeuvr (Bld) [Volume fraction]37 %Yfd74-68IomLuokmnMercy Health Perrysburg HospitalComment on above:Performed By: #### AFAB5 #### [facility] ([id number]) [address] [place], [place] [address]Hzhoeomrzu (Bld) [Mass/Vol]12.1 g/dLLow13.0-17.0Southern [place] Medical CenterComment on above:Performed By: #### AFAB5 #### [facility] ([id number]) [address] [place], [place] [address]ZPYI. O2 CONC.100 %NormalProCleveland Clinic Union Hospital HospitalComment on above:Performed By: #### AFAB5 #### [facility] ([id number]) [address] [place], [place] [address]GXSJYMX CALCIUM4.6 mg/dLNormal4.5-5.3ProMedGlenbeigh Hospital Comment on above:Performed By: #### AFAB5 #### [facility] ([id number]) [address] [place], [place] [address]Ryyenq (Bld) [Partial pressure]254 mm[Hg]Nhum42-198NoeAuupidMercy Health Perrysburg HospitalComment on above:Performed By: #### AFAB5 #### [facility] ([id number]) [address] [place], [place] [address]Qvdrqk saturation in Hrtdh839.4 %Normal>90ProCleveland Clinic Union Hospital HospitalComment on above:Performed By: #### AFAB5 #### [facility] ([id number]) [address] [place], [place] [address]ABR951.9 JLZKRdk54-02RkaPplpiaMercy Health Perrysburg HospitalComment on above: Performed By: #### AFAB5 #### [facility] ([id number]) [address] [place], [place] [address]oS (Bld)7.428 [pH]Normal7.350-7.450ProMercy Health Perrysburg Hospital Comment on above:Performed By: #### AFAB5 #### [facility] ([id number]) [address] [place], [place] [address]Ygmgsgeed [Moles/Vol]3.8 mmol/LNormal3.5-5.0ProCleveland Clinic Union Hospital HospitalComment on above:Performed By: #### AFAB5 #### [facility] ([id number]) [address] [place], [place] [address]RBQSFO SITEALINENormalProTrihealth Bethesda Butler Hospitalca The Jewish HospitalComment on above: Performed By: #### AFAB5 #### [facility] ([id number]) [address] [place], [place] [address]ANMAFJ TYPEArterialNormalProMercy Health Perrysburg HospitalComment on above:Performed By: #### AFAB5 #### [facility] ([id number]) [address] [place], [place] [address]fXZI Coag (PPP) [Time]on 09-16-2899rIKH Coag (Bld) [Time]37 s Zctvzs11-61ChkOlpuwrMercy Health Perrysburg HospitalComment on above:Performed By: #### CBCA, PINR, 55977-9, BMP #### [facility] ([id number]) [address], [address] [place], [place] [address]Llplkrz aminotransferase [Enzymatic activity/volume] in Serum or PlasmaOrdered By: Leonides Velasquez on 59-31-9661ASJ [Catalytic activity/Vol]23 U/L Normal7-52Met[facility] Parma Medical CenterComment on above:Performed By: #### CBC, CMP #### [facility] [address] [place] [address] USAAlbumin [Mass/volume] in Serum or Plasma by Bromocresol green (BCG) dye binding methoOrdered By: Leonides Velasquez on 63-12-5228Uthdbrx BCG dye [Mass/Vol]4.3 g/dL3.5-5.7FProMedica Bay Park HospitalAlkaline phosphatase [Enzymatic activity/volume] in Serum or PlasmaOrdered By: Leonides Velasquez on 05-53-6842YLN [Catalytic activity/Vol]42 U/KFqsquc57-306GhelilhpjMetrohealth Parma Medical CenterComment on above:Performed By: #### CBC, CMP #### [facility] [address] [place] [address] USAAspartate aminotransferase [Enzymatic activity/volume] in Serum or PlasmaOrdered By: Leonides Velasquez on 74-95-0869UGS [Catalytic activity/Vol]22 U/WZqokpd41-34CdngtjztjMetrohealth Parma Medical CenterComment on above: Performed By: #### CBC, CMP #### [place] [address] USAAutomated basophil %Ordered By: Leonides Marinothomas on 06-06-2023 Basophils/100 WBC (Bld)0.4 %Normal.[facility] Medical CenterComment on above:Performed By: #### CBC, CMP #### [place] [address] USAAutomated basophil countOrdered By: Leonidescecy Velasquez on 73-57-1916Tdytvqllt (Bld) [#/Vol]0.0 10*3/uLNormal0.0-0.2FProMedica Bay Park HospitalComment on above:Result Comment: PERFORMED BY: [place] [address] PATHOLOGIST ASSISTANT [employer] ANNABEL SANON M.D.Performed By: #### CBC, CMP #### [place] [address] USAAutomated blood monocyte countOrdered By: Leonides Velasquez on 51-63-5174Kvztjspbm (Bld) [#/Vol]1.0 10*3/uLHigh0.0-0.8[facility] Medical CenterComment on above:Performed By: #### CBC, CMP #### [place] [address] USAAutomated eosinophil %Ordered By: Leonides Velasquez on 57-94-1558Zzqsmhkmjzn/100 WBC (Bld)0.2 %Normal.[facility] Comment on above:Performed By: #### CBC, CMP #### [place] [address] USAAutomated eosinophil countOrdered By: Leonides Velasquez on 55-58-8841Sfyssqzeaxx (Bld) [#/Vol]0.0 10*3/uLNormal0.0-0.45[facility] Medical CenterComment on above:Performed By: #### CBC, CMP #### [address] [place] [address] USAAutomated erythrocytes count in urine sediment (number/area)Ordered By: Leonides Marinothomas on 54-25-2418QBL Auto (Urine sed) [#/Area] 0-1 [HPF]0-4FProMedica Bay Park HospitalAutomated leukocytes count in urine sediment (number/area)Ordered By: Leonides Marinothomas on 55-62-1824AWZ Auto (Urine sed) [#/Area]1-2 [HPF]0-4FProMedica Bay Park HospitalAutomated monocyte % Ordered By: Leonides Marinothomas on 68-72-7799Cvkueawjr/100 WBC (Bld)20.7 %Normal. [facility] Medical CenterComment on above:Performed By: #### CBC, CMP #### [facility] [address] [place] [address] USAAutomated neutrophil %Ordered By: Leonides Marinothomas on 68-73-3974Etkpzplqusa/100 WBC (Bld)66.6 %Normal.[facility] Medical CenterComment on above:Performed By: #### CBC, CMP #### [facility] [address] [place] [address] USAAutomated urine color determinationOrdered By: Leonides Velasquez on 92-24-3875Yuntc (U)YellowNormalYTwin City Hospital Comment on above:Order Comment: Name Collection Type:: Clean-Voided Midstream Performed By: #### ADDONUAPLUS #### [facility] [address] [place] [id number] USABilirubin Test strip Ql (U)Ordered By: Leonides Velasquez on 04-67-4835Ucrnuawkn Ql (U)NegativeNegativeMetrohealth Parma Medical Center Bilirubin.total [Mass/volume] in Serum or PlasmaOrdered By: Leonides Velasquez on 80-39-0265Crdxjkbox [Mass/Vol]0.5 mg/dLNormal0.3-1.0[facility] Medical CenterComment on above:Performed By: #### CBC, CMP #### [facility] [address] [place] [address] USACalcium [Mass/volume] in Serum or PlasmaOrdered By: Leonides Marinothomas on 46-34-8241Apmeiop [Mass/Vol]9.1 mg/dLNormal8.6-10.3FProMedica Bay Park HospitalComment on above:Performed By: #### CBC, CMP #### [place] [address] USACarbon dioxide, total [Moles/volume] in Serum or Plasma Ordered By: Leonides Marinothomas on 90-49-0577ES0 [Moles/Vol]27.5 mmol/JSgfvsw95.0-31.0 [facility] Medical CenterComment on above:Performed By: #### CBC, CMP #### [place] [address] USAChloride [Moles/volume] in Serum or PlasmaOrdered By: Leonides Marinothomas on 48-21-3766Bbugptku [Moles/Vol]101 mmol/ZIzkscv20-844LyigbsfbtMetrohealth Parma Medical CenterComment on above:Performed By: #### CBC, CMP #### [place] [address] USAComplete Blood Count Auto Diffon 10-21-7988Hfkx Corpuscular HGB Conc33.8 g/rRXmfjtq20.5-35.6The [facility] Physician GroupComment on above:Performed By: #### CBC, CMP #### [place] [address] USAMonocytes/100 WBC (Bld)24.84 %High0.00-20.00The [facility] Physician GroupComment on above:Result Comment: For adults in ED, MDW > 20.0 may be associated with a higher risk of sepsis during the first 12 hrs of hospital admissionPerformed By: #### CBC, CMP #### [place] [address] USANRBC%0.1 /100{WBC}Normal0-0.5The [facility] Comment on above:Performed By: #### CBC, CMP #### [place] [address] USAComprehensive Metabolic Panelon 88-89-2314Ikypbza [Mass/Vol]4.3 g/dLNormal3.5-5.7The [facility], [facility] Physician GroupComment on above: Performed By: #### CBC, CMP #### [place] [address] USACreatinine Clr Calc Fbigtjaj83.67NormalThe [facility], [facility] Physician GroupComment on above:Result Comment: PERFORMED BY: [place] [address] PATHOLOGIST ASSISTANT [employer] ANNABEL SANON M.D.Performed By: #### CBC, CMP #### [place] [address] USAGFR/1.73 sq M.predicted MDRD (S/P/Bld) [Vol rate/Area] mL/min/{1.73_m2}NormalThe [facility]ly [facility], [facility] Physician GroupComment on above:Performed By: #### CBC, CMP #### [place] [address] USACreatinine [Mass/volume] in Serum or PlasmaOrdered By: Leonides Velasquez on 21-93-4745Bmafslvnlf [Mass/Vol]0.96 mg/dLNormal0.70-1.30 [facility] Medical CenterComment on above:Performed By: #### CBC, CMP #### [place] [address] USADipstick and Microscopicon 94-00-7320Nxtacsrvci (U)Clear NormalClearThe [facility], [facility] Physician GroupComment on above:Order Comment: Name Collection Type:: Clean-Voided MidstreamPerformed By: #### ADDONUAPLUS #### [place] [address] USABacteria,Urine1+HighNone SeenThe [facility], [facility] Comment on above:Order Comment: Name Collection Type:: Clean-Voided Midstream Performed By: #### ADDONUAPLUS #### [place] [address] USABilirubin,UrineNegativeNormalNegativeThe [facility], [facility] Physician GroupComment on above:Order Comment: Name Collection Type:: Clean- Voided MidstreamPerformed By: #### ADDONUAPLUS #### [place] [address] USAGlucose Ql (U)NormalNormalNormalThPower County Hospital Physician GroupComment on above:Order Comment: Name Collection Type:: Clean-Voided MidstreamPerformed By: #### ADDONUAPLUS #### [place] [address] USAHyaline Casts,UrineNone SeenNormal0-8The [facility] Physician GroupComment on above:Order Comment: Name Collection Type:: Clean- Voided MidstreamResult Comment: PERFORMED BY: [place] [address] PATHOLOGIST ASSISTANT [employer] ANNABEL SANON M.D.Performed By: #### ADDONUAPLUS #### [place] [address] USAKetones Ql (U)1+HighNegativeBroward Health [facility] Physician Group Comment on above:Order Comment: Name Collection Type:: Clean-Voided Midstream Performed By: #### ADDONUAPLUS #### [place] [address] USALeukocyte esterase Test strip Ql (U)NegativeNormalNegative [facility] Physician GroupComment on above:Order Comment: Name Collection Type:: Clean-Voided MidstreamPerformed By: #### ADDONUAPLUS #### [place] [address] USANitrite,UrineNegativeNormalNegativeBroward Health [facility] Point Physician GroupComment on above:Order Comment: Name Collection Type:: Clean-Voided MidstreamPerformed By: #### ADDONUAPLUS #### [place] [address] USAOccult Blood,UrineTraceHighNegativeBroward Health [facility] Point Physician GroupComment on above:Order Comment: Name Collection Type:: Clean-Voided MidstreamResult Comment: PERFORMED BY: [place] [address] PATHOLOGIST ASSISTANT [employer] ANNABEL SANON M.D.Performed By: #### ADDONUAPLUS #### [place] [address] USAProtein,UrineNegativeNormalNegativeThe [facility] Physician GroupComment on above:Order Comment: Name Collection Type:: Clean-Voided MidstreamPerformed By: #### ADDONUAPLUS #### [place] [address] USARBC LM.HPF (Urine sed) [#/Area]0 /[HPF]Normal0-4The [facility] Physician GroupComment on above:Order Comment: Name Collection Type:: Clean-Voided MidstreamPerformed By: #### ADDONUAPLUS #### [place] [address] USASpecificy Plymouth,Urine1.235Shdeab4.001-1.030The [facility] Physician GroupComment on above:Order Comment: Name Collection Type:: Clean- Voided MidstreamPerformed By: #### ADDONUAPLUS #### [place] [address] USASquamous Epithelial Cell,UrineNone SeenNormal0-2The [facility] Physician GroupComment on above:Order Comment: Name Collection Type:: Clean-Voided MidstreamPerformed By: #### ADDONUAPLUS #### [place] [address] USAUrobilinogen,UrineNormalNormalNormalThe [facility], [facility] Physician GroupComment on above:Order Comment: Name Collection Type:: Clean- Voided MidstreamPerformed By: #### ADDONUAPLUS #### [place] [address] USAWBC,Koxyc5-4Vdcozh5-7Grc [facility] Physician GroupComment on above:Order Comment: Name Collection Type:: Clean-Voided MidstreamPerformed By: #### ADDONUAPLUS #### [place] [address] USAECG 12 lead ECGon 98-90-5345WVM 12 lead ECGUNIVERSITY H[facility]ITALS [facility] Main [place] [address] [place], [place] [id number] Electrocardiograph Report Signed Patient: Faith Penn MR#: [id number] : 1945 Acct:[id number] Age/Sex: 78 / M ADM Date: 06/06/23 Loc: ER Room: Type: [facility] ER Attending Dr: Ordering Provider: [...] By: MUS Signed By Leonides Velasquez DO [address] [place] [address] Physician GroupErythrocyte distribution width [Ratio] by Automated countOrdered By: Leonides Velasquez on 21-04-6493Iapzhwejdsu distribution width (RBC) [Ratio]12.9 %Pphplj72.0-14.8[facility] Parma Medical CenterComment on above:Performed By: #### CBC, CMP #### [facility] [address] [place], [place] [id number] USAErythrocytes [#/volume] in Blood by Automated countOrdered By: Leonides Velasquez on [id number] (Bld) [#/Vol]4.13 10*6/uLNormal3.90-5.60 [facility] CenterComment on above:Performed By: #### CBC, CMP #### [facility] [address] [place], [place] [id number] USAGlucose [Mass/volume] in Serum or PlasmaOrdered By: Leonides Velasquez on 40-71-1325Gvmbpky [Mass/Vol]91 mg/kUQdjbfh77-011NbmbjcunmMetrohealth Parma Medical CenterComment on above:ADA recommended reference rangeRandom Glucose Reference Range is dependent on time and content of last meal. Glucose of more than 200 mg/dL in a nonstressed, ambulatory subject supports the diagnosisof Diabetes Mellitus.Result Comment: Random Glucose Reference Range is dependent on time and content of last meal. Glucose of more than 200 mg/dL in a nonstressed, ambulatory subject supports the diagnosis of Diabetes Mellitus. ADA recommended reference rangePerformed By: #### CBC, CMP #### [facility] [address] [place] [address] USAHematocrit [Volume Fraction] of Blood by Automated count Ordered By: Leonides Velasquez on 87-77-3429Xymkrimxpr (Bld) [Volume fraction]39.6 % Bkpsrj91.8-50.0[facility] Medical CenterComment on above:Performed By: #### CBC, CMP #### [facility] [address] [place] [address] USAHemoglobin [Mass/volume] in BloodOrdered By: Leonides Velasquez on 73-25-8784Tunyxeokzj (Bld) [Mass/Vol]13.4 g/kRJgoxzz64.0-17.0[facility] CenterComment on above:Performed By: #### CBC, CMP #### [place] [address] USAKetones Auto test strip (U) [Mass/Vol]Ordered By: Leonides Velasquez on 17-25-2412Afwdohq (U) [Mass/Vol]1+NegativeMetrohealth Parma Medical CenterLaboratory - UrinalysisOrdered By: Leonides Velasquez on 25-38-9435Vuwrwmm casts LM Ql (Urine sed)None seen [LPF]0-8[facility] Medical CenterLeukocytes [#/volume] corrected for nucleated erythrocytes in Blood by Automated coun Ordered By: Leonides Velasquez on 54-70-1221WDH corrected for nucl RBC Auto (Bld) [#/Vol]4.9 10*3/uL4.1-10.5FProMedica Bay Park HospitalLeukocytes [#/volume] in Blood by Automated countOrdered By: Leonides Velasquez on 57-00-8946CIW (Bld) [#/Vol]4.9 10*3/uLNormal4.1-10.5FProMedica Bay Park HospitalComment on above:Performed By: #### CBC, CMP #### [facility] [address] [place] [address] USALymphocytes [#/volume] in Blood by Automated countOrdered By: Leonides Velasquez on 09-84-6716Wefqvjpaemq (Bld) [#/Vol]0.6 10*3/uLLow1.00-4.8 [facility] CenterComment on above:Performed By: #### CBC, CMP #### [facility] [address] [place] [address] USALymphocytes/100 leukocytes in Blood by Automated count Ordered By: Leonides eVlasquez on 21-93-7287Crwyaedcntn/100 WBC (Bld)12.1 %Normal. [facility] CenterComment on above:Performed By: #### CBC, CMP #### [place] [id number] [facility] [Entitic mass] by Automated countOrdered By: Leonides Velasquez on 88-85-1201GYO (RBC) [Entitic mass]32.4 nmJfdbvq34.5-35.2FProMedica Bay Park HospitalComment on above:Performed By: #### CBC, CMP #### [address] Auto (RBC) [Mass/Vol]Ordered By: Leonides Velasquez on 04-58-8342ZUDX (RBC) [Mass/Vol]33.8 g/dL32.5-35.6FProMedica Bay Park HospitalMCV [Entitic volume] by Automated countOrdered By: Leonides Velasquez on 94-07-2670KQR (RBC) [Entitic vol]95.9 lVOqzejy23.5-101[facility] CenterComment on above:Performed By: #### CBC, CMP #### [place] [id number] USAMonocyte distribution width [Entitic volume] in Blood by AutomatedOrdered By: Leonides Velasquez on 16-78-8612Alyhilza distribution width Auto (Bld) [Entitic vol]24.84 %0.00-20.00[facility] Medical CenterComment on above:For adults in ED, MDW > 20.0 may be associated with a higher risk of sepsis during the first 12 hrs of hospital admissionNeutrophils [#/volume] in Blood by Automated countOrdered By: Leonides Velasquez on 68-00-0113Ycypmuktvwv (Bld) [#/Vol]3.3 10*3/uLNormal1.8-7.7FProMedica Bay Park HospitalComment on above:Performed By: #### CBC, CMP #### [facility] [address] [place] [address] USANitrite Test strip Ql (U)Ordered By: Leonides Velasquez on 65-81-0512Xdqecsm Ql (U)NegativeNegativeMetrohealth Parma Medical CenterNo Panel InformationOrdered By: Leonides Velasquez on 43-77-3758Nbamtowma GFR (CKD-EPI)> 60.0 mL/MinMetrohealth Parma Medical CenterPharmacy Creatinine Clearance (Chem 71.67[facility] Medical CenterNucleated erythrocytes [Presence] in Blood by Automated countOrdered By: Leonides Velasquez on 47-69-2337Csjelvyoz RBC Auto Ql (Bld)0.1 /100{WBC}0-0.5FProMedica Bay Park HospitalPlatelet mean volume [Entitic volume] in Blood by Automated countOrdered By: Leonides Velasquez on 10-86-6911Jcmphxiy mean volume (Bld) [Entitic vol]7.4 fLNormal6.6-10.1FProMedica Bay Park HospitalComment on above:Performed By: #### CBC, CMP #### [facility] [address] [place] [address] USAPlatelets [#/volume] in Blood by Automated countOrdered By: Leonides Velasquez on 18-26-6010Oqzltnrtf (Bld) [#/Vol]175 10*3/wDVprcnn864-933 [facility] CenterComment on above:Performed By: #### CBC, CMP #### [facility] [address] [place] [address] USAPotassium [Moles/volume] in Serum or PlasmaOrdered By: Leonides Manisha on 82-53-1147Xmtbqxsyl [Moles/Vol]3.8 mmol/LNormal3.5-5.1FProMedica Bay Park HospitalComment on above:Performed By: #### CBC, CMP #### [place] [address] USAProtein Auto test strip (U) [Mass/Vol]Ordered By: Leonides Velasquez on 21-71-0668Hbavmma (U) [Mass/Vol]NegativeNegativeMetrohealth Parma Medical CenterProtein [Mass/volume] in Serum or PlasmaOrdered By: Leonidescecy Velasquez on 62-67-0002Qpofygx [Mass/Vol]7.5 g/dLNormal6.4-8.9[facility] CenterComment on above:Performed By: #### CBC, CMP #### [place] [address] USASerum globulin measurement by calculation (mass/volume) Ordered By: Leonides Velasquez on 87-22-5661Erfaqdiz (S) [Mass/Vol]3.2 g/dLNormal [facility] CenterComment on above:Performed By: #### CBC, CMP #### [place] [address] USASerum or plasma albumin/globulin mass ratioOrdered By: Leonides Velasquez on 43-43-6959Napusqg/Globulin [Mass ratio]1.3 {ratio}Normal [facility] CenterComment on above:Performed By: #### CBC, CMP #### [place] [address] USASerum or plasma anion gap determinationOrdered By: Leonides Velasquez on 28-05-0455Naixh gap [Moles/Vol]8.3 mmol/LNormal6.0-15.0[facility] CenterComment on above:Performed By: #### CBC, CMP #### [place] [address] USASodium [Moles/volume] in Serum or PlasmaOrdered By: Leonides Velasquez on 82-66-7655Zuuqhq [Moles/Vol]133 mmol/IDdp409-489RrphtfevxMetrohealth Parma Medical CenterComment on above:Performed By: #### CBC, CMP #### [facility] [address] [place] [id number] USASpecific gravity Auto test strip (U) [Rel density]Ordered By: Leonides Velasquez on 27-89-1889Upggliyo gravity (U) [Rel density]1.0181.001-1.030 [facility] Hospitalquamous epithelial cells detection in urine sediment by light microscopyOrdered By: Leonides Velasquez on 10-24-7871Lfqezoupyv cells.squamous LM Ql (Urine sed)None seen [HPF]0-2FProMedica Bay Park HospitalUrea nitrogen [Mass/volume] in Serum or PlasmaOrdered By: Leonides Velasquez on 35-60-6946Gyst nitrogen [Mass/Vol]16 mg/dLNormal7-25[facility] CenterComment on above:Performed By: #### CBC, CMP #### [facility] [address] [place] [id number] USAUrine bacteria detection by automated methodOrdered By: Leonides Velasquez on 46-97-6380Fycmztwy Auto Ql (U)1+None SeenMetrohealth Parma Medical CenterUrine clarity by refractometry automatedOrdered By: Leonides Velasquez on 41-16-1162Ffevoij Refractometry automated (U)ClearClearFProMedica Bay Park HospitalUrine glucose measurement by automated test strip (mass/volume) Ordered By: Leonides Velasquez on 05-24-8000Jraegyi Auto test strip (U) [Mass/Vol] Normal mg/dLNormProvidence HospitalUrine hemoglobin detection by automated test stripOrdered By: Leonides Velasquez on 19-46-8836Fhhuevqxhk Auto test strip Ql (U)TraceNegativeMetrohealth Parma Medical CenterUrine leukocyte esterase detection by automated test stripOrdered By: Leonides Velasquez on 06-06-2023 Leukocyte esterase Auto test strip Ql (U)NegativeNegativeMetrohealth Parma Medical CenterUrine pH measurement by automated test stripOrdered By: Leonides Velasquez on 31-78-4033kZ (U)5.5 [pH]Normal5.0-9.0[facility] Comment on above:Order Comment: Name Collection Type:: Clean-Voided Midstream Performed By: #### ADDONUAPLUS #### [facility] [address] [place] [address] USAUrobilinogen Auto test strip (U) [Mass/Vol]Ordered By: Leonides Velasquez on 83-51-6559Oeskvogtuyxw (U) [Mass/Vol]Normal mg/dLNoUniversity Hospitals Health SystemXR chest 2V*on 78-96-2597XE chest 2V*[facility] Main [place] [address] [place] [address] XRay Report Signed Patient: Faith Penn MR#: [id number] : 1945 Acct:[id number] Age/Sex: 78 / M ADM Date: 06/06/23 Loc: ER Room: Type: [facility] ER Attending Dr: Copies to: Leonides Velasquez [...] Tristan Bruce M.D.06/06/2023 7:14 PM Dictation Location: [place] [address] Transcribed By: [facility] 06/06/231913 Dictated By: Tristan Bruce DO 06/06/231912 Signed By: 06/06/231913[facility] Physician GroupPROF CHEM 8 (BAS METB)on 09-31-4234Ktjky gap [Moles/Vol]8.8 mmol/LNormalAultman Alliance Community HospitalComment on above:Performed By: #### BMP #### [facility] [address] [place] [address] [address] Marlen MckeonCalcium [Mass/Vol]9.0 mg/dLNormal8.5-10.1[facility] Comment on above:Performed By: #### BMP #### [facility] [address] [place] [address] [address] Marlen MckeonChloride [Moles/Vol]103 mmol/WBnhxza50-338Fzn [facility] Comment on above:Performed By: #### BMP #### [facility] [address] [place] [address] [address] Marlen MckeonCO2 [Moles/Vol]29.6 mmol/NQjwszt56.0-32.0[facility] Comment on above:Performed By: #### BMP #### [facility] [address] [place] [address] [address] Marlen MckeonCreatinine [Mass/Vol]0.94 mg/dLNormal0.70-1.30The [facility] HospitalComment on above:Performed By: #### BMP #### [facility] [address] [place] [address] [address] Gee ChangEGFR-AF POLISH>60Normal>=60The [facility] HospitalComment on above:Performed By: #### BMP #### [facility] [address] [place] [address] [address] Marlen GallegosGFR-NON AF POLISH>60Normal>=60The [facility] HospitalComment on above:Performed By: #### BMP #### [facility] [address] [place] [address] [address] Marlen MckeonGlucose [Mass/Vol]89 mg/mKFarxad30-837AsxAultman Alliance Community Hospital Comment on above:Performed By: #### BMP #### [facility] [address] [place] [address] [address] Marlen MckeonPotassium [Moles/Vol]4.4 mmol/LNormal3.5-5.1[facility] Comment on above:Performed By: #### BMP #### [facility] [address] [place] [address] [address] Marlen Colmenaresdium [Moles/Vol]137 mmol/WQogyhi436-984Cim [facility] Comment on above:Performed By: #### BMP #### [facility] [address] [place], [place] [address] Dr[address] Marlen MckeonUrea nitrogen [Mass/Vol]18.0 mg/dLNormal7.0-18.0[facility] HospitalComment on above:Performed By: #### BMP #### [facility] [address] [place] [address] [address] Marlen Reynolds nitrogen/Creatinine [Mass ratio]19.1 mg/mgNormalThCentervilleComment on above:Performed By: #### BMP #### [facility] [address] [place] [address] [address] Marlen MckeonBasic Metabolic Panelon 96-53-6432Svwfh gap [Moles/Vol]9 mmol/L9 - 17 mmol/LBON [facility]ENTER MARYVALEHello HealthCalcium [Mass/Vol]9.1 mg/dL8.6 - 10.4 mg/dL [facility] MARYVALEHello HealthChloride [Moles/Vol]103 mmol/L98 - 107 mmol/LBON [facility]ENTER MARYVALEHello HealthCO2 [Moles/Vol]26 mmol/L20 - 31 mmol/LBON [facility]ENTER MARYVALEHello Health Creatinine [Mass/Vol]0.83 mg/dL0.70 - 1.20 mg/dLBON CopyteleGFR/1.73 sq M.predicted MDRD (S/P/Bld) [Vol rate/Area]- [facility] MED[facility] CENTERFBNOVANT HEALTH HUNTERSVILLE MEDICAL CENTERKeyMe [facility] Comment on above: Effective Mar 10, 2022 [...] therapy that affects renal tubular secretion. Glucose [Mass/Vol]101 mg/kEVvxv38 - 99 mg/dLBON [facility] MARYVALEHello Health Interpretation and review of laboratory resultsAbnormalBON [facility] Potassium [Moles/Vol]4.5 mmol/L3.7 - 5.3 mmol/LBON SECELYRIA MEMORIAL HOSPITALSodium [Moles/Vol]138 mmol/L135 - 144 mmol/LBON SECELYRIA MEMORIAL HOSPITALUrea nitrogen (BldV) [Mass/Vol]20 mg/dL8 - 23 mg/dLBON SECELYRIA MEMORIAL HOSPITALUrea nitrogen/Creatinine (Bld) [Mass ratio]83Dqwy5 - 20BON [facility] MEDICAL CENTERCBC with Auto Differentialon 99-08-7116Cjtrefam Eos #0.00[facility] Absolute Lymph #1.40B[facility]ELY[facility]ORIAL HOSPITALAbsolute [place] #0.60B[facility]ORIAL HOSPITALBasophils (Bld) [#/Vol]0.00 10*3/uLBON SECELYRIA MEMORIAL HOSPITALBasophils/100 WBC (Bld)0 %0 - 2 %B[facility] CENTERDifferential TypeYESBON [facility] HOSPIT[facility] EL[facility] MEDICAL CENTEREosinophils/100 WBC (Bld)1 %0 - 5 %[facility] WILLIAMSBURGHematocrit (Bld) [Volume fraction]41.3 %41 - 53 %[facility] WILLIAMSBURGHemoglobin (Bld) [Mass/Vol]14.0 g/dL13.5 - 17.5 g/dLBON [facility] MEDICAL CENTERInterpretation and review of laboratory resultsAbnormalBON UN[facility]ERS[facility]OS[facility] MEDICAL CENTERLymphocytes/100 WBC (Bld)27 %13 - 44 %[facility]ITAL PULASKIH (RBC) [Entitic mass]33.0 pg26 - 34 pgBON SECMERCY HEALTH ALLEN HOSPITALHC (RBC) [Mass/Vol]33.9 g/dL31 - 37 g/dLBON SECMERCY HEALTH ALLEN HOSPITALV (RBC) [Entitic vol]97.4 fL80 - 100 fLRIVERSIDE DOCTORS' HOSPITAL WILLIAMSBURG Monocytes/100 WBC (Bld)11 %High5 - 9 %[facility] WILLIAMSBURGPlatelet distribution width (Bld) [Ratio]13.7 %12.1 - 15.2 %[facility] Platelets (Bld) [#/Vol]222 10*3/uLBON SECELYRIA MEMORIAL HOSPITALRBC (Bld) [#/Vol]4.23 10*6/uLLow4.5 - 5.9 m/uLBON UNIVERSITY HOSPITALS ELY[facility] MEDICAL CENTERSegmented neutrophils/100 WBC (Bld)61 %39 - 75 %BON [facility] MEDICAL CENTERSegs Absolute3.20BON [facility] HEALTHWBC (Bld) [#/Vol]5.2 10*3/uLBON [facility]ITY HOS[facility] MEDICAL CENTERBON [facility]ENTER HEALTHGamma GTon 66-86-1920Qtlhg glutamyl transferase [Catalytic activity/Vol]17 U/L8 - 61 U/LBON [facility] MEDICAL CENTERHepatic Function Panelon 19-06-8299Cjciuba [Mass/Vol]4.1 g/dL3.5 - 5.2 g/dLBON UNIVERSITY HOSPITALS ELYRIA MEDICAL CENTERALP (Bld) [Catalytic activity/Vol]59 U/L40 - 129 U/LBON [facility] HEALTHALT [Catalytic activity/Vol]23 U/L5 - 41 U/LBON [facility] HEALTHAST [Catalytic activity/Vol]20 U/LNINF - 40 U/LBON [facility] MEDICAL CENTERBilirubin [Mass/Vol]0.4 mg/dL0.30 - 1.20 mg/dLBON [facility] CodasipBilirubin, IndirectCan not be calculated0.00 - 1.00 mg/dLBON [facility] CodasipBilirubin.indirect [Mass/Vol] mg/dLNINF - 0.31 mg/dLBON [facility]ICAL CENTERProtein [Mass/Vol]7.3 g/dL6.4 - 8.3 g/dLBON [facility] CodasipLipid Panelon 28-54-8351Sdvwlcxzgrg [Mass/Vol] 128 mg/dLNINF - 200 mg/dLBON RIVERSIDE COMMUNITY HOSPITALXylemeComment on above: Cholesterol Guidelines: <200 Desirable 200-240 Borderline >240 Undesirable Cholesterol in HDL [Mass/Vol]52 mg/dL40 - PINF mg/dLBON [facility] MARYVALEPrim’Vision [facility]ICAL CENTERXyleme Comment on above: HDL Guidelines: <40 Undesirable 40-59 Borderline >59 Desirable Cholesterol in LDL [Mass/Vol]68 mg/dL0 - 130 mg/dLBON [facility]ENTER MARYVALEHello Health Comment on above: LDL Guidelines: <100 Desirable 100-129 Near to/above Desirable 130-159 Borderline >159 Undesirable Direct (measured) LDL and calculated LDL are not interchangeable tests. Cholesterol.total/Cholesterol in HDL [Mass ratio]2.5 {ratio}NINF - 5BON [facility] MARYVALEHello HealthTriglyceride [Mass/Vol]38 mg/dLNINF - 150 mg/dLBON [facility] MARYVALEKeyMe [facility] NORTHComment on above: Triglyceride Guidelines: <150 Desirable 150-199 Borderline 200-499 High >499 Very high Based on AHA Guidelines for fasting triglyceride, March 2012. No Panel Informationon 08-70-1939MJF [facility] HOSPITALWireless Toyz [facility] NORTHBON [facility] MARYVALEPrim’Vision [facility] MEDICAL CENTERWireless Toyz [facility] NORTHPatient Fasting?on 77-17-1648Igsorvm Fasting?YESBON AVERA ST. LUKE'S HOSPITALCOVID-19 SOFIAOrdered By: Christiano Ravi on 21-64-7161KTFL-CoV+SARS-CoV-2 (COVID-19) Ag IA.rapid Ql (Resp)NegativeNegative [facility] CenterComment on above:This is a duplicate Shanon SARS Antigen (HERNAN) result to be used for statistical tracking purpose only.No Panel InformationOrdered By: Christiano Ravi on 23-33-8385FETC Antigen (LFIA) [facility] CenterXR FACIAL BONES (MIN 3 VIEWS )on 03-13-2022 Undisplaced nasal bone fracture. [facility] CONSOLIDATEDEXAM: XR FACIAL BONES (MIN 3 VIEWS ) HISTORY: Reason for exam:->frontal facial injury due to fall while intoxicated COMPARISON: None. TECHNIQUE: Facial bones 5 images. FINDINGS: Undisplaced fracture of the nasal bone. Spinous process of the maxilla is intact. Orbital floors and kelley are intact. The paranasal sinuses are normally aerated. [facility] Perez Arreaga Jr., MD - 03/13/2022 EXAM: XR FACIAL BONES (MIN 3 VIEWS ) HISTORY: Reason for exam:->frontal facial injury due to fall while intoxicated COMPARISON: None. TECHNIQUE: Facial bones 5 images. FINDINGS: Undisplaced fracture of the nasal bone. Spinous process of the maxilla is intact. Orbital floors and kelley are intact. The paranasal sinuses are normally aerated. IMPRESSION: Undisplaced nasal bone fracture. [employer] Work Phone: radiology Study observation (narrative)[employer] Phone: XR FACIAL BONES (MIN 3 VIEWS )Ordered By: Perez Lopez on 10-29-2487MDL [employer] Phone: XR LUMBAR SPINE (MIN 4 VIEWS)on 11-11-[address] [facility] CONSOLIDATEDEXAM: XR LUMBAR SPINE (MIN 4 VIEWS) HISTORY: Reason for exam:->fall off pickup truck tail gait 10/31/21. COMPARISON: None. TECHNIQUE: Lumbar spine 5 views. FINDINGS: Moderate diffuse age expected disc degenerative change without fracture. [facility] Perez Arreaga Jr., MD - 11/11/2021 EXAM: XR LUMBAR SPINE (MIN 4 VIEWS) HISTORY: Reason for exam:->fall off pickup truck tail gait 10/31/21. COMPARISON: None. TECHNIQUE: Lumbar spine 5 views. FINDINGS: Moderate diffuse age expected disc degenerative change without fracture. IMPRESSION: Degenerative changes. [employer] Phone: radiology Study observation (narrative)[employer] Phone: xr LUMBAR SPINE (MIN 4 VIEWS)Ordered By: Perez Lopez on 76-52-7005AWB [employer] Phone: US Carotid, Bilateralon 11-03-4524FB Carotid, BilateralFINDINGS: Right (% stenosis)Left (% stenosis) [facility] [...] and signed by Sahil Perla on 07/15/2021 1018NormalNorthern [facility]ib[facility] SpecialistOperative Reporton [id number] ReportMR#: [id number] I [facility] Pt. Name: Faith Penn Room #: FABIANA [id number] Discharge 06/26/2021 Date: Birthdate: 1945 OPERATIVE REPORT [...] P/Kenyatta Mora M.D. Date Trans: 06/30/2021 02:06 A/mmo DN_JN:[id number] Medical CenterBASIC METABOLIC PANELon 39-35-6510Pdgjplg [Mass/Vol]8.7 mg/dLNormal8.6-10.3The [facility] HospitalComment on above:Order Comment: No: Do not add to previous drawPerformed By: #### 54714, 98171, 99219 #### [facility] [address] [place] [address], USAChloride [Moles/Vol]106 mmol/YMsyovq76-691Bhu [facility] HospitalComment on above:Order Comment: No: Do not add to previous drawPerformed By: #### 54557, 86853, 31126 #### [facility] [address] [place] [address], USACO2 [Moles/Vol]25 mmol/WGhsozn58-31Qvo [facility] HospitalComment on above:Order Comment: No: Do not add to previous draw Performed By: #### 55485, 97015, 21922 #### [facility] [address] [place] [address], USACreatinine [Mass/Vol]0.69 mg/dLLow0.70-1.30The [facility] HospitalComment on above:Order Comment: No: Do not add to previous drawPerformed By: #### 54318, 37355, 24470 #### [facility] [address] [place] [address], USAGFR/1.73 sq M.predicted among blacks MDRD (S/P/Bld) [Vol rate/Area]mL/min/{1.73_m2}Normal>60The [facility] Comment on above:Order Comment: No: Do not add to previous drawResult Comment: Calculation may not be valid for patients over 70 yearsPerformed By: #### 44968, 87603, 98545 #### [facility] [address] [place] [address], USAGFR/1.73 sq M.predicted among non-blacks MDRD (S/P/Bld) [Vol rate/Area]mL/min/{1.73_m2}Normal>60The [facility] Comment on above:Order Comment: No: Do not add to previous drawResult Comment: Calculation may not be valid for patients over 70 yearsPerformed By: #### 77208, 77422, 39461 #### [facility] [address] [place] [address], USAGlucose [Mass/Vol]122 mg/tXPlyg33-058Djz [facility] HospitalComment on above:Order Comment: No: Do not add to previous drawPerformed By: #### 08123, 95042, 58998 #### [facility] [address] [place] [address], USAPotassium [Moles/Vol]3.7 mmol/LNormal3.5-5.1The [facility] HospitalComment on above:Order Comment: No: Do not add to previous drawPerformed By: #### 10335, 70799, 61892 #### [facility] [address] [place] [address], USASodium [Moles/Vol]135 mmol/QNdj799-470Tbj [facility] HospitalComment on above:Order Comment: No: Do not add to previous drawPerformed By: #### 94605, 62500, 22059 #### [facility] [address] [place] [address], USAUrea nitrogen [Mass/Vol]9 mg/dLNormal7-25The [facility] Franz Medical CenterComment on above:Order Comment: No: Do not add to previous drawPerformed By: #### 98476, 84928, 55402 #### [facility] [address] [place] [address], USACBC W/DIFFon 72-60-2951YPP IMM GRANS0.0 10*3/uLNormal 0.0-0.2The [facility] HospitalComment on above:Order Comment: No: Do not add to previous drawPerformed By: #### 59697 #### [facility] [address] [facility] [place] [address], USAABS NEUTROPHILS4.3 10*3/uLNormal1.6-7.6The [facility] HospitalComment on above:Order Comment: No: Do not add to previous drawPerformed By: #### 84450 #### [facility] [address] [place] [address], USABasophils (Bld) [#/Vol]0.0 10*3/uLNormal0.0-0.2The [facility] HospitalComment on above:Order Comment: No: Do not add to previous drawPerformed By: #### 89894 #### [facility] [address] [facility] [place] [address], USABasophils/100 WBC (Bld)0.4 %Normal0.0-1.0The [facility] HospitalComment on above:Order Comment: No: Do not add to previous drawPerformed By: #### 56318 #### [facility] [address] [facility] [place] [address], USAEosinophils (Bld) [#/Vol]0.1 10*3/uLNormal0.0-0.5The [facility] Fairview HospitalComment on above:Order Comment: No: Do not add to previous drawPerformed By: #### [id number] #### [facility] [address] [place] [address], USAEosinophils/100 WBC (Bld)0.7 %Normal0.0-6.0The [facility] HospitalComment on above:Order Comment: No: Do not add to previous drawPerformed By: #### [id number] #### [facility] [address] [place] [address], USAErythrocyte distribution width (RBC) [Ratio]12.3 %Normal 11.5-15.0The [facility] HospitalComment on above:Order Comment: No: Do not add to previous drawPerformed By: #### [id number] #### [facility] [address] [address] [place] [address], USAHematocrit (Bld) [Volume fraction]36.1 %Low39.0-50.0The [facility] HospitalComment on above:Order Comment: No: Do not add to previous drawPerformed By: #### [id number] #### [facility] [address] [place] [address], USAHemoglobin (Bld) [Mass/Vol]12.8 g/dLLow13.0-17.0The [facility] HospitalComment on above:Order Comment: No: Do not add to previous drawPerformed By: #### [id number] #### [facility] [address] [place] [address], USAIMMATURE GRANS0.3 %Normal0.0-1.0The [facility] HospitalComment on above:Order Comment: No: Do not add to previous draw Performed By: #### [id number] #### [facility] [address] [place] [address], USALymphocytes (Bld) [#/Vol]1.6 10*3/uLNormal1.2-4.0The [facility] HospitalComment on above:Order Comment: No: Do not add to previous drawPerformed By: #### [id number] #### [facility] [address] [place] [address], USALymphocytes/100 WBC (Bld)23.4 %Hhpgsn08.0-45.0The [facility] HospitalComment on above:Order Comment: No: Do not add to previous drawPerformed By: #### [id number] #### [facility] [address] [place] [address], [facility] (RBC) [Entitic mass]32.7 maKlgxkv80.0-33.0The [facility] HospitalComment on above:Order Comment: No: Do not add to previous drawPerformed By: #### [id number] #### [facility] [address] [place] [address], [facility] AT L[facility] VEGASMCHC (RBC) [Mass/Vol]35.5 g/fBXqqd65.0-35.0The [facility] HospitalComment on above:Order Comment: No: Do not add to previous drawPerformed By: #### [id number] #### [facility] [address] [place] [address], [facility] AT L[facility] VEGASMCV (RBC) [Entitic vol]92.3 vBOodcqa44.0-98.0The [facility] HospitalComment on above:Order Comment: No: Do not add to previous drawPerformed By: #### [id number] #### [facility] [address] [place] [address], USAMonocytes (Bld) [#/Vol]0.7 10*3/uLNormal0.1-1.0The [facility] HospitalComment on above:Order Comment: No: Do not add to previous drawPerformed By: #### 73674 #### [facility] [address] [place] [address], WKSKWPUB44.4 %Normal5.0-12.0The [facility] HospitalComment on above:Order Comment: No: Do not add to previous drawPerformed By: #### [id number] #### [facility] [address] [place] [address], USANeutrophils/100 WBC (Bld)64.8 %Dzouho52.0-72.0The [facility] HospitalComment on above:Order Comment: No: Do not add to previous drawPerformed By: #### [id number] #### [facility] [address] [place] [address], USANucleated RBC/100 WBC (Bld) [Ratio]0 %Normal0-0The [facility] HospitalComment on above:Order Comment: No: Do not add to previous drawPerformed By: #### 60319 #### [facility] [address] [place] [address], USAPLAT IGC286 10*3/zGPgucsb683-237Bvw [facility] HospitalComment on above:Order Comment: No: Do not add to previous draw Performed By: #### [id number] #### [facility] [address] [place] [address], USARBC (Bld) [#/Vol]3.91 10*6/uLLow4.20-5.70The [facility] HospitalComment on above:Order Comment: No: Do not add to previous drawPerformed By: #### [id number] #### [facility] [address] [place] [address], USAWBC (Bld) [#/Vol]6.71 10*3/uLNormal4.00-10.60The [facility] HospitalComment on above:Order Comment: No: Do not add to previous drawPerformed By: #### 53636 #### [facility] [address] [place] [address], USALIVER BATTERYon [id number] [Mass/Vol]3.5 g/dLNormal 3.5-5.7The [facility] HospitalComment on above:Order Comment: No: Do not add to previous drawPerformed By: #### 35962, 34574, [id number] #### [facility] [address] [place] [address], USAALKALINE NYWEOI80 IU/LAdmlue20-800Hst [facility] HospitalComment on above:Order Comment: No: Do not add to previous draw Performed By: #### 72373, 24010, 91661 #### [facility] [address] [place] [address], USAALT [Catalytic activity/Vol]18 U/LNormal7-52The [facility] HospitalComment on above:Order Comment: No: Do not add to previous drawPerformed By: #### 77500, 48022, 61769 #### [facility] [address] [place] [address], USAAST [Catalytic activity/Vol]15 U/TShliyy74-22Bpt [facility] HospitalComment on above:Order Comment: No: Do not add to previous drawPerformed By: #### 40330, 64025, 43645 #### [facility] [address] [place] [address], USABilirubin [Mass/Vol]0.7 mg/dLNormal0.3-1.0The [facility] HospitalComment on above:Order Comment: No: Do not add to previous drawPerformed By: #### 35169, 41367, 97572 #### [facility] [address] [place] [address], USABilirubin.direct [Mass/Vol]0.2 mg/dLNormal0.0-0.2The [facility] HospitalComment on above:Order Comment: No: Do not add to previous drawPerformed By: #### 76034, 33762, 44516 #### [facility] [address] [place] [address], USAProtein [Mass/Vol]6.1 g/dLNormal6.0-8.3The [facility] HospitalComment on above:Order Comment: No: Do not add to previous drawPerformed By: #### 49629, 06621, 23512 #### [facility] [address] [place] [address], USAMONOSPOTon [id number]WMNFBUJWOav [facility] HospitalComment on above:Order Comment: No: Do not add to previous drawPerformed By: #### [id number] #### [facility] [address] [place] [address], USAPHOSPHORUS BLOODon [id number] [Mass/Vol]3.2 mg/dL Normal2.5-5.0The [facility] HospitalComment on above:Order Comment: No: Do not add to previous drawPerformed By: #### 16023, 38559, 76028 #### [facility] [address] [place] [address], USAACTIVATED CLOTTING TIMEon [id number] CLOTTING TIME 252 [id number] [facility] HospitalComment on above: Performed By: #### [id number] #### [facility] [address] [place] [address], USAACTIVATED CLOTTING [id number] [facility] HospitalComment on above:Performed By: #### 85512 #### [facility] [address] [place] [address], USAACTIVATED CLOTTING [id number] [facility] HospitalComment on above:Performed By: #### 75870 #### [facility] [address] [place] [address], USAACTIVATED CLOTTING [id number] [facility] HospitalComment on above:Performed By: #### [id number] #### [facility] [address] [place] [address], USAAPTTon [id number] Coag (Bld) [Time]47.8 sHigh25.0-35.0 The [facility] HospitalComment on above:Result Comment: ALL RESULTS MUST BE INTERPRETED WITH RESPECT TO BLOOD DRAWING ARTIFACT OR DILUTION ERROR OF ANTICOAGULANT AT THE TIME OF SAMPLING. THE APTT SHOULD NOT BE USED TO MONITOR UNFRACTIONATED HEPARIN THERAPY, THIS LABORATORY NO LONGER HAS AN ESTABLISHED THERAPEUTIC RANGE BASED ON THE APTT. IT IS RECOMMENDED THAT THE UFH - HEPARIN ASSAY (ANTI-XA ACTIVITY) BE USED FOR THIS PURPOSE.Performed By: #### [id number] #### [facility] [address] [place] [address], [facility] COMPLETE BLOOD COUNTon [id number] distribution width (RBC) [Ratio]12.1 %Psless71.5-15.0The [facility] HospitalComment on above:Order Comment: No: Do not add to previous draw Performed By: #### 62794 #### [facility] [address] [place] [address], USAHematocrit (Bld) [Volume fraction]37.5 %Low39.0-50.0The [facility] HospitalComment on above:Order Comment: No: Do not add to previous drawPerformed By: #### 47529 #### [facility] [address] [place] [address], USAHemoglobin (Bld) [Mass/Vol]13.3 g/tVAxzvro84.0-17.0The [facility] HospitalComment on above:Order Comment: No: Do not add to previous drawPerformed By: #### 62198 #### [facility] [address] [place] [address], USAMCH (RBC) [Entitic mass]32.7 gmZjsaut69.0-33.0The [facility] HospitalComment on above:Order Comment: No: Do not add to previous drawPerformed By: #### 62390 #### [facility] [address] [place] [address], USAMCHC (RBC) [Mass/Vol]35.5 g/gYAihc10.0-35.0The [facility] HospitalComment on above:Order Comment: No: Do not add to previous drawPerformed By: #### 37652 #### [facility] [address] [place] [address], USAMCV (RBC) [Entitic vol]92.1 eXYrbbdt45.0-98.0The [facility] HospitalComment on above:Order Comment: No: Do not add to previous drawPerformed By: #### 23844 #### [facility] [address] [place] [address], USANucleated RBC/100 WBC (Bld) [Ratio]0 %Normal0-0The [facility] HospitalComment on above:Order Comment: No: Do not add to previous drawPerformed By: #### 16768 #### [facility] [address] [place] [address], USAPLAT [id number] 10*3/mPTopbpp437-851Qiq [facility] HospitalComment on above:Order Comment: No: Do not add to previous draw Performed By: #### 65886 #### [facility] [address] [place] [address], USARBC (Bld) [#/Vol]4.07 10*6/uLLow4.20-5.70The [facility] HospitalComment on above:Order Comment: No: Do not add to previous drawPerformed By: #### 92304 #### [facility] [address] [place] [address], USAWBC (Bld) [#/Vol]9.86 10*3/uLNormal4.00-10.60The [facility] HospitalComment on above:Order Comment: No: Do not add to previous drawPerformed By: #### 49512 #### [facility] [address] [place] [address], USACOMP METABOLIC PANELon [id number] [Mass/Vol]3.7 g/dL Normal3.5-5.7The [facility] HospitalComment on above:Order Comment: No: Do not add to previous drawPerformed By: #### 48737 #### [facility] [address] [place] [address], USAALKALINE ZCLUDG77 IU/ALsbcxn08-710Iif [facility] HospitalComment on above:Order Comment: No: Do not add to previous draw Performed By: #### 32838 #### [facility] [address] [place] [address], USAALT [Catalytic activity/Vol]22 U/LNormal7-52The [facility] HospitalComment on above:Order Comment: No: Do not add to previous drawPerformed By: #### 63890 #### [facility] [address] [place] [address], USAAST [Catalytic activity/Vol]15 U/QNgvxsw61-01Qfu [facility] HospitalComment on above:Order Comment: No: Do not add to previous drawPerformed By: #### 43056 #### [facility] [address] [place] [address], USABilirubin [Mass/Vol]0.5 mg/dLNormal0.3-1.0The [facility] HospitalComment on above:Order Comment: No: Do not add to previous drawPerformed By: #### 98202 #### [facility] [address] [place] [address], USACalcium [Mass/Vol]8.9 mg/dLNormal8.6-10.3The [facility] HospitalComment on above:Order Comment: No: Do not add to previous drawPerformed By: #### 68233 #### [facility] [address] [place] [address], USAChloride [Moles/Vol]104 mmol/JPadmvl39-319Efw [facility] HospitalComment on above:Order Comment: No: Do not add to previous drawPerformed By: #### 29884 #### [facility] [address] [place] [address], USACO2 [Moles/Vol]25 mmol/RXdfmnu28-57Oct [facility] HospitalComment on above:Order Comment: No: Do not add to previous draw Performed By: #### 12216 #### [facility] [address] [place] [address], USACreatinine [Mass/Vol]0.73 mg/dLNormal0.70-1.30The [facility] HospitalComment on above:Order Comment: No: Do not add to previous drawPerformed By: #### 62684 #### [facility] [address] [place] [address], USAGFR/1.73 sq M.predicted among blacks MDRD (S/P/Bld) [Vol rate/Area]mL/min/{1.73_m2}Normal>60[facility] Comment on above:Order Comment: No: Do not add to previous drawResult Comment: Calculation may not be valid for patients over 70 yearsPerformed By: #### 15639 #### [facility] [address] [place] [address], USAGFR/1.73 sq M.predicted among non-blacks MDRD (S/P/Bld) [Vol rate/Area]mL/min/{1.73_m2}Normal>60[facility] Comment on above:Order Comment: No: Do not add to previous drawResult Comment: Calculation may not be valid for patients over 70 yearsPerformed By: #### [id number] #### [facility] [address] [place] [address], USAGlucose [Mass/Vol]115 mg/nYCstz26-726Nov [facility] HospitalComment on above:Order Comment: No: Do not add to previous drawPerformed By: #### 18045 #### [facility] [address] [place] [address], USAPotassium [Moles/Vol]3.8 mmol/LNormal3.5-5.1The [facility] HospitalComment on above:Order Comment: No: Do not add to previous drawPerformed By: #### 39170 #### [facility] [address] [place] [address], USAProtein [Mass/Vol]6.4 g/dLNormal6.0-8.3The [facility] HospitalComment on above:Order Comment: No: Do not add to previous drawPerformed By: #### 50714 #### [facility] [address] [place] [address], [facility] INSTITUTE AT L[facility] VEGASSodium [Moles/Vol]135 mmol/MSkq269-274Wxn [facility] HospitalComment on above:Order Comment: No: Do not add to previous drawPerformed By: #### 72730 #### [facility] [address] [address], USAUrea nitrogen [Mass/Vol]14 mg/dLNormal7-25The [facility] HospitalComment on above:Order Comment: No: Do not add to previous drawPerformed By: #### 79172 #### [facility] [address] [address], USAPROTHROMBIN TIMEon [id number] Coag (PPP) [Relative time] 1.09 {INR}Normal0.91-1.16The [facility] HospitalComment on above:Result Comment: ACCCP RECOMMENDED INR FOR WARFARIN THERAPY ------- CONDITION INR PROPHYLAXIS OF VENOUS THROMBOSIS 2-3 (HIGH-RISK SURGERY) TREATMENT OF VENOUS THROMBOSIS 2-3 TREATMENT OF PULMONARY EMBOLISM 2-3 PREVENTION OF SYSTEMIC EMBOLISM: 2-3 ACUTE MYOCARDIAL INFARCTION TISSUE HEART VALVES VALVULAR HEART DISEASE ATRIAL FIBRILLATION RECURRENT SYSTEMIC EMBOLISM MECHANICAL HEART VALVE 2.5-3.5 FROM: ORAL ANTICOAGULANTS. MECHANISM OF ACTION, CLINICAL EFFECTIVENESS, AND OPTIMAL THERAPEUTIC RANGE. CHEST 1995;108:231S-246S.Performed By: #### 67817 #### [facility] [address] [place] [address], USAPT Coag (PPP) [Time]14.1 tPpzljj74.3-14.8The [facility] HospitalComment on above:Result Comment: ALL RESULTS MUST BE INTERPRETED WITH RESPECT TO BLOOD DRAWING ARTIFACT OR DILUTION ERROR OF ANTICOAGULANT AT THE TIME OF SAMPLING.Performed By: #### [id number] #### [facility] [address] [place] [address], USAMRI BRAIN WO CONTRASTOrdered By: Candace Giron on 03-29-2021 Mild cerebral atrophy with minimal small vessel ischemic changes of the supratentorial white matter.[employer] Phone: eXAM: MRI BRAIN WO CONTRAST HISTORY: Reason for exam:- >short term memory changes. Carotid stenosis > 70% rule out CVA COMPARISON: Head CT 07/01/2017. TECHNIQUE: Multiplanar, multisequence MR imaging of the head was performed without intravenous contrast. FINDINGS: No restricted diffusion. No ac morgan hemorrhage, mass effect, midline shift, or extra [...] within the paranasal sinuses and mastoid air cells.[employer] Phone: edi, [facility] Incoming Radiant Results From [employer] - 03/29/2021 3:13 PM EDT EXAM: MRI [...] ischemic changes of the supratentorial white matter. [employer] Work Phone: [employer] Phone: basic Metabolic PanelOrdered By: Candace Giron on 50-00-2671Gpvlo gap [Moles/Vol]8 mmol/LLow9 - 17 mmol/LMNeolinear Phone: calcium [Mass/Vol]9.3 mg/dL8.6 - 10.4 mg/dLSocial GameWorks Phone: chloride [Moles/Vol]103 mmol/L98 - 107 mmol/LMNeolinear Phone: cO2 [Moles/Vol]27 mmol/L20 - 31 mmol/LMPrompt Associatesy [employer] Phone: creatinine [Mass/Vol]0.79 mg/dL0.70 - 1.20 mg/dLSocial GameWorks Phone: GFR >60>60 mL/minMiami Valley HospitalCalysta Energy Phone: GFR Non->60>60 mL/minMiami Valley HospitalCalysta Energy Phone: GFR/1.73 sq M.predicted MDRD (S/P/Bld) [Vol rate/Area] [facility] CenterFeedBurner Phone: comment on above:Average GFR for 70 or more years old: 75 mL/min/1.73sq m Chronic Kidney Disease: <60 mL/min/1.73sq m Kidney failure: <15 mL/min/1.73sq m eGFR calculated using average adult body mass. Additional eGFR calculator available at: http://www.[employer]/multiple_crcl_2012.htm GFR/1.73 sq M.predicted MDRD (S/P/Bld) [Vol rate/Area]NOT REPORTEDMiami Valley HospitalCalysta Energy Phone: Glucose [Mass/Vol]111 mg/vBVlsi86 - 99 mg/dLMiami Valley HospitalCalysta Energy Phone: Interpretation and review of laboratory results AbnormalMiami Valley HospitalCalysta Energy Phone: potassium [Moles/Vol]4.1 mmol/L3.7 - 5.3 mmol/LMcleveland clinic mentor hospital [employer] Phone: sodium [Moles/Vol]138 mmol/L135 - 144 mmol/LMcleveland clinic mentor hospital [employer] Phone: Urea nitrogen (BldV) [Mass/Vol]19 mg/dL8 - 23 mg/dL [facility] CenterFeedBurner Phone: Urea nitrogen/Creatinine (Bld) [Mass ratio]24HighMiami Valley HospitalCalysta Energy Phone: cBC Auto DifferentialOrdered By: Candace Giron on 42-04-2566Dvuygjeg Eos #0.10[facility] HospitalCalysta Energy Phone: absolute Immature GranulocyteNOT REPORTEDMiami Valley HospitalCalysta Energy Phone: absolute Lymph #1.70[facility] HospitalCalysta Energy Phone: absolute [place] #0.50[facility] HospitalCalysta Energy Phone: basophils (Bld) [#/Vol]0.00 10*3/uLMiami Valley HospitalCalysta Energy Phone: basophils/100 WBC (Bld)1 %0 - 2 %[employer] Phone: differential TypeYESMercFeedBurner Phone: eosinophils/100 WBC (Bld)1 %0 - 5 %[employer] Phone: Hematocrit (Bld) [Volume fraction]43.1 %41 - 53 %[employer] Phone: Hemoglobin.gastrointestinal spec 1 Ql (Stl)14.6 g/dL 13.5 - 17.5 g/dLMiami Valley HospitalCalysta Energy Phone: Immature GranulocytesNOT REPORTED0 %[employer] Phone: Interpretation and review of laboratory results AbnormalMiami Valley HospitalCalysta Energy Phone: lymphocytes/100 WBC (Bld)33 %13 - 44 %[employer] Phone: MCH (RBC) [Entitic mass]32.8 pg26 - 34 pgMiami Valley HospitalCalysta Energy Phone: MCHC (RBC) [Mass/Vol]33.9 g/dL31 - 37 g/dLMiami Valley HospitalCalysta Energy Phone: MCV (RBC) [Entitic vol]96.6 fL80 - 100 fLMiami Valley HospitalCalysta Energy Phone: Monocytes/100 WBC (Bld)9 %5 - 9 %[employer] Phone: NRBC AutomatedNOT REPORTEDper 100 WBCMiami Valley HospitalCalysta Energy Phone: platelet distribution width (Bld) [Ratio]13.1 %12.1 - 15.2 %[employer] Phone: platelet EstimateNOT REPORTEDMerCalysta Energy Phone: platelet mean volume (Bld) [Entitic vol]NOT REPORTED 6.0 - 12.0 fLMiami Valley HospitalCalysta Energy Phone: Platelets (Bld) [#/Vol]241 10*3/uLMiami Valley HospitalGasp Solar Work Phone: RBC (Bld) [#/Vol]4.46 10*6/uLLow4.5 - 5.9 m/uLMiami Valley HospitalGasp Solar Work Phone: RBC (Bld) [#/Vol]NOT REPORTEDMiami Valley HospitalCalysta Energy Phone: segmented neutrophils/100 WBC (Bld)56 %39 - 75 %[facility] CenterFeedBurner Phone: segs Absolute2.90Mi[facility] HospitalCalysta Energy Phone: WBC (Bld) [#/Vol]5.1 10*3/uLMiami Valley HospitalGasp Solar Work Phone: WBC (Bld) [#/Vol]NOT REPORTEDMiami Valley HospitalCalysta Energy Phone: [facility] HospitalGasp Solar Work Phone: Hepatic Function PanelOrdered By: Candace Giron on [id number] [Mass/Vol]4.2 g/dL3.5 - 5.2 g/dLMiami Valley HospitalCalysta Energy Phone: albumin/Globulin RatioNOT REPORTEDMiami Valley HospitalCalysta Energy Phone: aLP (Bld) [Catalytic activity/Vol]52 U/L40 - 129 U/L [facility] CenterFeedBurner Phone: aLT [Catalytic activity/Vol]28 U/L5 - 41 U/LMcleveland clinic mentor hospital [employer] Work Phone: aST [Catalytic activity/Vol]23 U/L<40Mi[facility] HospitalCalysta Energy Phone: bilirubin [Mass/Vol]0.33 mg/dL0.30 - 1.20 mg/dLMiami Valley HospitalCalysta Energy Phone: bilirubin, IndirectCANNOT BE CALCULATED0.00 - 1.00 mg/dLWvumedicine Harrison [facility] [employer] Phone: bilirubin.indirect [Mass/Vol]mg/dL<0.31 mg/dLWvumedicine Harrison Community Hospital [employer] Phone: Free PSA/Total PSA [Mass fraction]7.0 g/dL6.4 - 8.3 g/dLWvumedicine Harrison Community Hospital [employer] Phone: GlobulinNOT REPORTED1.5 - 3.8 g/dLWvumedicine Harrison Community Hospital [employer] Phone: lipid PanelOrdered By: Candace Giron on 10-22-2020 Cholesterol [Mass/Vol]145 mg/dL<200W[facility]umed[facility] [employer] Phone: comment on above: Cholesterol Guidelines: <200 Desirable 200-240 Borderline >240 Undesirable Cholesterol in HDL [Mass/Vol]54 mg/dL>40[facility]umed[facility] [employer] Phone: comment on above: HDL Guidelines: <40 Undesirable 40-59 Borderline >59 Desirable Cholesterol in LDL [Mass/Vol]85 mg/dL0 - 130 mg/dLWvumedicine Harrison Community Hospital [employer] Phone: comment on above: LDL Guidelines: <100 Desirable 100-129 Near to/above Desirable 130-159 Borderline >159 Undesirable Direct (measured) LDL and calculated LDL are not interchangeable tests. Cholesterol in VLDL [Mass/Vol]NOT REPORTED1 - 30 mg/dLWvumed[facility] [employer] Phone: cholesterol.total/Cholesterol in HDL [Mass ratio]2.7 {ratio}<5Mer [employer] Phone: Triglyceride [Mass/Vol]31 mg/dL<150[facility] [employer] Phone: comment on above: Triglyceride Guidelines: <150 Desirable 150-199 Borderline 200-499 High >499 Very high Based on AHA Guidelines for fasting triglyceride, March 2012. [employer] Phone: No Panel InformationOrdered By: Candace Giron on [id number] Work Phone: pSA screeningOrdered By: Candace Giron on 10-22-2020 [facility] [employer] Phone: patient Fasting?Ordered By: Candace Giron on 10-22-2020 Patient Fasting?yesMer[employer] Work Phone: [employer] Work Phone: TSH with ReflexOrdered By: Candace Giron on 10-22-2020 TSH Qn2.71 m[IU]/LMercy Health Work Phone: comprehensive Metabolic Panelon [id number] [Mass/Vol]4.8 g/dL3.5 - 5.2 g/dLMercy Health- [place], [place]Albumin/Globulin [Mass ratio]NOT REPORTEDMercy Health- [place], KYALP [Catalytic activity/Vol]49 U/L40 - 129 U/LMercy Health- [place], KYALT [Catalytic activity/Vol]39 U/L5 - 41 U/LMercy Health- [place], KYAnion gap [Moles/Vol]11 mmol/L9 - 17 mmol/LMercy Health- [place], KYAST [Catalytic activity/Vol]27 U/L<40[facility]- [place], KYBilirubin Ql (U)0.76 mg/dL 0.3 - 1.2 mg/dLMercy Health- [place], KYBun/Cre Isbff80Jcjsc Health- [place], KYCalcium [Mass/Vol]10.5 mg/dLHigh8.6 - 10.4 mg/dLMercy Health- [place], KYChloride [Moles/Vol] 99 mmol/L98 - 107 mmol/LMercy Health- [place], KYCO2 [Moles/Vol]28 mmol/L20 - 31 mmol/LMercy Health- [place], KYCreatinine [Mass/Vol]0.95 mg/dL0.7 - 1.2 mg/dLMercy Health- [place], KYGFR >60>60 mL/minMercy Health- [place], KYGFR Non- >60>60 mL/minMercy Health- [place], KYGFR/1.73 sq M predicted among non-blacks MDRD (S/P/Bld) [Vol rate/Area][facility], UTComment on above: Average GFR for 70 or more years old: 75 mL/min/1.73sq m Chronic Kidney Disease: <60 mL/min/1.73sq m Kidney failure: <15 mL/min/1.73sq m eGFR calculated using average adult body mass. Additional eGFR calculator available at: http://www.Credit [employer]/multiple_crcl_2012.htm GFR/1.73 sq M predicted among non-blacks MDRD (S/P/Bld) [Vol rate/Area]NOT REPORTEDAlb[place], KYGlucose [Mass/Vol]111 mg/kMAmuj40 - 99 mg/dLFayette County Memorial Hospital, UTInterpretation and review of laboratory resultsAbnormalF[facility], UTPotassium [Moles/Vol]4.6 mmol/L3.7 - 5.3 mmol/LMProMedica Defiance [facility] Hospital, KYProtein [Mass/Vol]8.1 g/dL6.4 - 8.3 g/dLFayette County Memorial Hospital, UTSodium [Moles/Vol] 138 mmol/L135 - 144 mmol/LMProMedica Defiance [facility], UTUrea nitrogen [Mass/Vol]16 mg/dL8 - 23 mg/dLFayette County Memorial Hospital, UTLipid Panelon [id number] [Mass/Vol]154 mg/dL<200[place], KYComment on above: Cholesterol Guidelines: <200 Desirable 200-240 Borderline >240 Undesirable Cholesterol in HDL [Mass/Vol]65 mg/dL>40[place], KYComtrinity health [facility] on above: HDL Guidelines: <40 Undesirable 40-59 Borderline >59 Desirable Cholesterol in LDL [Mass/Vol]82 mg/dL0 - 130 mg/dLAlbion, KYComtrinity health ann [facility]bor hospital on above: LDL Guidelines: <100 Desirable 100-129 Near to/above Desirable 130-159 Borderline >159 Undesirable Direct (measured) LDL and calculated LDL are not interchangeable tests. Cholesterol in VLDL [Mass/Vol]NOT REPORTED1 - 30 mg/dLAl[place], [place] Cholesterol.total/Cholesterol in HDL [Mass ratio]2.4 {ratio}<5[place], KYTriglyceride [Mass/Vol]36 mg/dL<150[facility], FENGComment on above: Triglyceride Guidelines: <150 Desirable 150-199 Borderline 200-499 High >499 Very high Based on AHA Guidelines for fasting triglyceride, March 2012. Patient Fasting?on 96-21-0173Sbzozsi Fasting?yesF[facility], FENGTSH with Reflexon [id number] Qn3.70 m[IU]/LMercAdventHealth Sebring, FENGVL DUP CAROTID BILATERALon 61-26-3455YahptShelby [facility] Procedure Patient Name CHARLINE Date of Study 08/25/2019 FAITH Lombardo Date of 1945 Gender Male Age 74 year(s) Race Room Number US Corporate ID [id number] # Patient Acct [id number] # MR # [id number] Intellectual Property Manager MICHELLE Toscano Interpreting Physician Anusha Lopez Referring Candace Giron Referring Physician Nurse PROGRAM CONSULTANT Practitioner Procedure Type of Study: Cerebral: Carotid, [...] PSV >230 cm/sec Critical: 80 - 99% PSV>230cm/sec and/or End Diastolic Velocities >120cm/sec Conclusions Summary [...] measured in cm Carotid Right Measurements + +--------+-------+-------+------+ + + !Location !PSV !EDV !Angle !RI !%Stenosis !Tortuosity ! + +--------+-------+-------+------+ + + !P areli CCA !98.63 !14.41 ! !0.85 ! ! ! + +--------+-------+-------+------+ + + !Mid CCA !95.39 !16.03 ! !0.83 ! ! ! + +--------+-------+-------+------+ + + !Dist CCA !84.06 !12.79 ! !0.85 ! ! ! + +--------+-------+----- --+------+ + + !Prox ICA !187.61 !45.04 ! !0.76 ! ! ! + +--------+-------+-------+------+ + + !Mid ICA !161.69 !22.36 ! !0.86 ! ! ! +-- ---------+--------+-------+-------+------+ + + !Dist ICA !129.88 !18.36 ! !0.86 ! ! ! + +--------+-------+-------+------+ + + !Prox ECA!95.03 !9.06 ! !0.9 ! ! ! + +--------+-------+-------+------+ + + !Vertebral !58.2 !10.24 ! !0.82 ! ! ! + +--------+-------+-------+------+ + + - There is antegrade vertebral flow noted on the right side. - Additional Measure ments:ICAPSV/CCAPSV 1.9.ICAEDV/CCAEDV 3.13. Carotid Left Measurements + +--------+-------+-------+------+ + + !Location !PSV !EDV !Angle !RI !%Stenosis !Tortuosity ! + +--------+-------+-------+------+ + + !Prox CCA !88.66 !17.57 ! !0.8 ! ! ! + +--------+-------+-------+------+ + + !Mid CCA !84.71 !19.55 ! !0.77 ! ! ! + +--------+-------+-------+------+ + + !Dist CCA !88.66 !13.62 ! !0.85 ! ! ! + +--------+-------+-------+------+ + + !Prox ICA !153.1 !32.3 ! !0.79 ! ! ! + +--------+-------+-------+- -----+ + + !Mid ICA !66.08 !15.99 ! !0.76 ! ! ! + +--------+-------+-------+------+ + + !Dist ICA !85.68 !22.51 ! !0.74 ! ! ! +--------- --+--------+-------+-------+------+ + + !Prox ECA !110.21 !13.6 ! !0.88 ! ! ! + +--------+-------+-------+------+ + + !Vertebral !62.9 !13.6 ! !0.78 ! ! ! + +--------+-------+-------+------+ + + - T here is antegrade vertebral flow noted on the left side. - Additional Measurements:ICAPSV/CCAPSV 1.73.ICAEDV/CCAEDV 1.84.[facility]- [place], Flaca Varma Incoming Cardio Results From [facility]/ - 08/25/2019 2:01 PM EDT [facility] Vascular Carotid Procedure Patient Name CHARLINE Date of Study 08/25/2019 FAITH Lombardo Date of 1945 Gender Male Age 74 year(s) Race Room Number US Corporate ID [id number] # Patient Acct [id number] # MR # [id number] Intellectual Property Manager MICHELLE Toscano [facility] Interpreting Physician Anusha Lopez Referring Candace Giron Referring Physician Nurse PROGRAM CONSULTANT Practitioner Procedure Type of Study: Cerebral: Carotid, [...] measured in cm Carotid Right Measurements + +--------+-------+-------+------+ + + !Location !PSV !EDV !Angle !RI !%Stenosis !Tortuosity ! + +--------+-------+-------+------+ + + !Prox CCA !98.63 !14.41 ! !0.85 ! ! ! + +--------+-------+-------+------+ + + !Mid CCA !95.39 !16.03 ! !0.83 ! ! ! + +--------+-------+-------+------+ + + !Dist CCA !84.06 !12.79 ! !0.85 ! ! ! + +--------+-------+-------+------+ + + !Prox ICA !187.61 !45.04 ! !0.76 ! ! ! + +--------+-------+-------+------+ + + !Mid ICA !161.69 !22.36 ! !0.86 ! ! ! + +--------+-------+-------+------+ + + !Dist ICA !129.88 !18.36 ! !0.86 ! ! ! + +--------+-------+-------+------+ + + !Prox ECA !95.03 !9.06 ! !0.9 ! ! ! + +--------+-------+-------+------+ + + !Vertebral !58.2 !10.24 ! !0.82 ! ! ! + +--------+-------+-------+------+ + + - There is antegrade vertebral flow noted on the right side. - Additional Measurements:ICAPSV/CCAPSV 1.9.ICAEDV/CCAEDV 3.13. Carotid Left Measurements + +--------+-------+-------+------+ + + !Location !PSV !EDV !Angle !RI !%Stenosis !Tortuosity ! + +--------+-------+-------+------+ + + !Prox CCA !88.66 !17.57 ! !0.8 ! ! ! + +--------+-------+-------+------+ + + !Mid CCA !84.71 !19.55 ! !0.77 ! ! ! + +--------+-------+-------+------+ + + !Dist CCA !88.66 !13.62 ! !0.85 ! ! ! + +--------+-------+-------+------+ + + !Prox ICA !153.1 !32.3 ! !0.79 ! ! ! + +--------+-------+-------+------+ + + !Mid ICA !66.08 !15.99 ! !0.76 ! ! ! + +--------+-------+-------+------+ + + !Dist ICA !85.68 !22.51 ! !0.74 ! ! ! + +--------+-------+-------+------+ + + !Prox ECA !110.21 !13.6 ! !0.88 ! ! ! + +--------+-------+-------+------+ + + !Vertebral !62.9 !13.6 ! !0.78 ! ! ! + +--------+-------+-------+------+ + + - There is antegrade vertebral flow noted on the left side. - Additional Measurements:ICAPSV/CCAPSV 1.73.ICAEDV/CCAEDV 1.84.[facility] [employer]- [place], KYVitamin B12 & Folateon 92-35-1131Rspupsule (Vitamin B12) [Mass/Vol]944 pg/mL232 - 1245 pg/mLMiami Valley HospitalOvaGene Oncology [facility]- [place], KYFolate>20.0>4.8 ng/mLOhiohealth Pickerington [facility]- [place], [place] Vital Signs Date TimeVital SignValuePerforming JboqjjlorPnvzzvpb76-73-5444 10:01-0400Body rlubsl738.4 cmJest. mark's hospital [employer] Work Phone: 1(361)[address] [place], [place] 2751410-02-2025 10:01-0400Body mass index (BMI) [Ratio]22.43 kg/a1Hqufurp [employer] Work Phone: [phone])[address] [place], [place] 2751410-02-2025 10:01-0400Body ptifyr51.11 kgJest. mark's hospital [employer] Work Phone: 1(416)[address] [place], [place] 2751410-02-2025 10:01-0400Diastolic blood mm[Hg][facility] [employer] Work Phone: 1(172)[address] [place], [place] 2751410-02-2025 10:01-0400Respiratory rate18 /minJest. mark's hospital [employer] Work Phone: [phone])[address] [place], [place] 2751410-02-2025 10:01-4128WjM8% (BldA) [Mass fraction]98 %Ilssette [employer] Work Phone: 1(847)[address] [place], [place] 2751410-02-2025 10:01-0400Systolic blood rwpyrefk264 mm[Hg]Lissette [employer] Work Phone: [phone])[address] [place], [place] 2751408-21-2025 15:39-0400Body vywjem467.4 cmRomero Salinas MD Work Phone: [facility]SmithvilleStvtktsuht47-47-5834 15:39-0400Body mass index (BMI) [Ratio]23.22 kg/o6CilmohrRomero Salinas MD Work Phone: [facility]SmithvilleMaudngzjre91-88-0278 15:39-0400Body .83 kgRomero Salinas MD Work Phone: [facility]SmithvilleNybvavcnvn91-98-3226 09:46-0400Body qsctmo183.4 cmFesree Buchanannagel BUSINESS PROCESS ENGINEER Work Phone: [facility]SmithvilleIkmmvwqxpw43-07-2016 09:46-0400Body mass index (BMI) [Ratio]24.01 kg/h3Zdafnqj Windnagel BUSINESS PROCESS ENGINEER Work Phone: [facility]–SmithvilleYweszoyugc5147 09:46-0400Body yhgqdw27.56 kgFesree Poseygel BUSINESS PROCESS ENGINEER Work Phone: [facility]SmithvilleDeeasggpsa11-46-4473 09:46-0400Diastolic blood umpbngfe53 mm[Hg]Dafne Windnagel BUSINESS PROCESS ENGINEER Work Phone: [facility]SmithvilleLuknhonimp47-64-7887 09:46-0400Systolic blood mm[Hg]Dafne Chanelnagel BUSINESS PROCESS ENGINEER Work Phone: [facility]–SmithvilleTilaolsukz62-98-5024 14:30-0500Blood Pressure LocationAurora Orzech [facility]02-28-2025 14:30-0500Diastolic blood dlzktjub02 mm[Hg]Humaira Orzech [facility]02-28-2025 14:30-0500Heart rate69 /minAurora Orzech [facility]02-28-2025 14:30-0500Respiratory rate16 /minAurora Orzech [facility]02-28-2025 14:30-0500Systolic blood ohxhwyho899 mm[Hg]Humaira Orzech [facility]08-22-2024 09:09-0400Body .4 cmMarlys Garcia MD Work Phone: 1(820)[facility]08-22-2024 09:09-0400Body mass index (BMI) [Ratio]23.75 kg/x9AkvlhypMarlys Garcia MD Work Phone: 1(461)[facility]08-22-2024 09:09-0400Body .65 kgModomingo Garcia MD Work Phone: 1(749)[facility]08-22-2024 09:09-0400Diastolic blood dnlhrfro00 mm[Hg]Marlys Garcia MD Work Phone: 1(371)[facility]08-22-2024 09:09-0400Heart rate 57 /minMarlys Garcia MD Work Phone: 1(343)[facility]08-22-2024 09:09-7594ArE7% (BldA) [Mass fraction]90 %Marlys Garcia MD Work Phone: 1(618)[facility]08-22-2024 09:09-0400Systolic blood nehfjndf035 mm[Hg]Marlys Garcia MD Work Phone: 1(914)[facility]08-21-2024 10:33-0400Blood Pressure LocationSamziyad iCracked [facility]08-21-2024 10:33-0400Diastolic blood yjhhejwm95 mm[Hg]Chintan GRACIA [facility]08-21-2024 10:33-0400Heart rate81 /minChintan GRACIA [facility]08-21-2024 10:33-0400Systolic blood xhbhrpjy771 mm[Hg]Chintan GRACIA [facility]08-08-2024 10:110400Diastolic blood iqmruoys14 mm[Hg]Marlys Garcia MD Work Phone: 1(765)[facility]08-08-2024 10:110400Systolic blood hqifxpmd748 mm[Hg]Marlys Garcia MD Work Phone: 1(331)[facility]08-08-2024 10:040400Body wiukgs745.4 cmModomingo Garcia MD Work Phone: 1(372)[facility]08-08-2024 10:040400Body mass index (BMI) [Ratio]23.75 kg/f3PyymcoaMarlys Garcia MD Work Phone: 1(643)[facility]08-08-2024 10:04040Body .65 kgModomingo Garcia MD Work Phone: 1(905)[facility]08-08-2024 10:047910WjT5% (BldA) [Mass fraction]99 %Marlys Garcia MD Work Phone: 1(076)[facility]08-05-2024 11:08-0400Blood Pressure LocationAurora Orzech [facility]08-05-2024 11:08-0400Body otbxfticois49.8 [degF]Humaira Orzech [facility]08-05-2024 11:08-0400Diastolic blood hnijwugp53 mm[Hg]Humaira Orzech [facility]08-05-2024 11:08-0400Heart rate70 /minAurora Orzech [facility]08-05-2024 11:08-0400Systolic blood pfvumxso765 mm[Hg]Humaira Orzech [facility]07-25-2024 09:24-0400Blood Pressure LocationAlysha Galea [facility]07-25-2024 09:24-0400Diastolic blood tzwoyztv91 mm[Hg]Makayla Galea [facility]07-25-2024 09:24-0400Heart rate72 /minAlysha Galea [facility]07-25-2024 09:24-0400Respiratory rate16 /minAlysha Galea [facility]07-25-2024 09:24-0400Systolic blood ixzydeyt389 mm[Hg]Makayla Galea [facility]07-24-2024 14:30-0400Diastolic blood ioohaflo90 mm[Hg]Marlys Garcia MD Work Phone: 1(803)[facility]07-24-2024 14:30-0400Heart rate 66 /minMarlys Garcia MD Work Phone: 1(524)[facility]07-24-2024 14:30-0400 Respiratory rate17 /minMarlys Garcia MD Work Phone: 1(491)[facility]07-24-2024 14:30-8784DuM7% (BldA) [Mass fraction]100 %Marlys Garcia MD Work Phone: 1(291)[facility]07-24-2024 14:30-0400Systolic blood wngkjegb865 mm[Hg]Marlys Garcia MD Work Phone: 1(011)[facility]07-24-2024 11:00-0400Body bxzsunwapct37.1 [degF]Marlys Garcia MD Work Phone: 1(157)[facility]07-23-2024 17:00-0400Body .4 cmMarlys Garcia MD Work Phone: 1(491)[facility]07-23-2024 17:00-0400Body mass index (BMI) [Ratio]24.26 kg/l2KwjshvvMarlys Garcia MD Work Phone: 1(005)[facility]07-23-2024 17:00-0400Body qucrek42.4 kgMarlys Garcia MD Work Phone: 1(839)[facility]07-23-2024 09:13-0400Body dcbqmnatgzb05.6 [degF]Marlys Garcia MD Work Phone: 1(815)[facility]07-23-2024 09:13-2443EhQ0% (BldA) [Mass fraction]100.4 %Marlys Garcia MD Work Phone: 1(620)[facility]07-15-2024 09:11-0400Body .[address] [facility]07-15-2024 09:11-0400Body mass index (BMI) [Ratio]24.28 kg/a0Zwcdb [facility]07-15-2024 09:11-0400Body uhyzps41.[address] [place], [place] 1103006-06-2024 14:38-0400Diastolic blood zamtxmpf13 mm[Hg]Marlys Garcia MD Work Phone: 1(311)[facility]06-06-2024 14:38-0400Systolic blood cvruzums655 mm[Hg]Marlys Garcia MD Work Phone: 1(846)[facility]06-06-2024 14:37-0400Body .75 kgMarlys Garcia MD Work Phone: 1(549)[facility]06-06-2024 14:37-0400Heart rate 58 /minMarlys Garcia MD Work Phone: 1(507)[facility]06-06-2024 14:37-7419FxA5% (BldA) [Mass fraction]95 %Marlys Garcia MD Work Phone: 1(825)291-[address] [place], [place] 2104712-30-2023 19:37-0500Body srmuxjcawbq37.2 [degF]CUSTOMER SALES REPRESENTATIVE Candace Bree Work Phone: 1(229)[address]12-30-2023 19:37-0500 Diastolic blood gjzffhem02 mm[Hg]CUSTOMER SALES REPRESENTATIVEAliya Rubalcava Bree Work Phone: 1(920)[address] [place], [place] 5124612-30-2023 19:37-0500 Heart rate76 /minAPRAliya Rubalcava Bree Work Phone: 1(626)[address] [place], [place] 5124612-30-2023 19:37-0500 Respiratory rate22 /minAPRAliya Candace Bree Work Phone: 1(642)[address] [place], [place] 5124612-30-2023 19:37-0500 SaO2% (BldA) [Mass fraction]99 %CUSTOMER SALES REPRESENTATIVEAliya Rubalcava Bree Work Phone: 1(179)[address] [place], [place] 5124612-30-2023 19:37-0500 Systolic blood watgwdyx334 mm[Hg]CUSTOMER SALES REPRESENTATIVEAliya Rubalcava Bree Work Phone: 1(451)[address] [place], [place] 5124612-30-2023 14:59-0500 Body .42 cmAPRAliya Candace Giron Work Phone: 1(843)[address]12-30-2023 14:59-0500 Body hfcyfv34.7 kgAPRAliya Candace Giron Work Phone: 1(631)[address]08-02-2023 10:31-0400 Diastolic blood qigsiaul562 mm[Hg]Chintan GRACIA [facility]08-02-2023 10:31-0400Heart rate87 /minSamziyad GRACIA [facility]08-02-2023 10:31-0400Systolic blood mm[Hg]Chintanziyad GRACIA [facility] 146871-08-2022 09:28-0500Diastolic blood mm[Hg]CUSTOMER SALES REPRESENTATIVE Candace Giron Work Phone: 1(648)051-[address] [place], [place] 3176811-08-2022 09:28-0500 Heart rate58 /minAPRN Candace Giron Work Phone: 1(549)104-[address] [place], [place] 3176811-08-2022 09:28-0500 Respiratory rate18 /minAPRN Candace Giron Work Phone: 1(349)[address]11-08-2022 09:28-0500 SaO2% (BldA) [Mass fraction]100 %CUSTOMER SALES REPRESENTATIVE Candace Giron Work Phone: 1(313)582-[address] [place], [place] 3176811-08-2022 09:28-0500 Systolic blood tnqtfjvi545 mm[Hg]CUSTOMER SALES REPRESENTATIVE Candace Giron Work Phone: 1(961)[address]11-08-2022 07:33-0500 Body dyiwxv484.42 cmAPRN Candace Giron Work Phone: 1(290)[address]11-08-2022 07:33-0500 Body leumvzpkmis07.9 [degF]CUSTOMER SALES REPRESENTATIVE Candace Giron Work Phone: 1(202)[address]11-08-2022 07:33-0500 Body ldnuwc59.37 kgAPRN Candace Giron Work Phone: 1(486)[address]08-08-2022 10:01-0400 Blood Pressure LocationNoxubee General HospitalRocky Mountain [facility] 08-08-2022 10:01-0400Diastolic blood rfidqhzv82 mm[Hg] Chintan iCracked [facility] 08-08-2022 10:01-0400Heart rate81 /minSamRocky Mountain Oasis [facility] 08-08-2022 10:01-0400Respiratory rate16 /minSamRocky Mountain Oasis [facility] 08-08-2022 10:01-0400Systolic blood dbbakoet398 mm[Hg] Chintan GRACIA [facility] Encounters Encounter DateEncounter TypeCare ProviderFacilityStart: 04-03-2025 End: 36-01-6960mtobisdgvgZAKAL KREBSFacility:FTMCStart: 03-09-2025 End: 48-92-3702[employer] CUSTOMER SALES REPRESENTATIVE-PROGRAM CONSULTANT Work Phone: noms NEUROLOGYStart: 03-09-2025 End: 65-01-0489GkdgkeSymbiotec [employer] CUSTOMER SALES REPRESENTATIVE-PROGRAM CONSULTANT Work Phone: noms NEUROLOGYStart: 03-09-2025 End: 11-98-2589yaogazarnhSAGEQJK SPRINGERNot AvailableStart: 03-09-2025 End: 84-06-9188Jtukpi outpatient visit 25 minutesJePivot Medical CUSTOMER SALES REPRESENTATIVE-[employer] Work Phone: noms [facility] NeurologyComment on above:Memory loss (Primary Dx); 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); Insomnia due to medical condition; Dementia with aggressive behavior (HCC)Start: 03-02-2025 End: 31-73-7998Wlcvrzjose Putnam DO Work Phone: [facility] EyeStart: 03-02-2025 End: 20-24-3653Nirdtkjose Putnam DO Work Phone: noms [facility] EyeStart: 03-02-2025 End: 53-50-1908jerlfvsykqXUGNKDMVCeline [address] AvailableStart: 02-13-2025 End: 86-59-7147ninletcaxbUMWVM M KREBSTrinity Health System West Campus HospitalStart: 02-13-2025 End: 09-40-0566Auazbthoeh hospital visit by physicianMwh Additional Xray At Mw MWHZ LaboratoryComment on above:Primary hypertension; Mixed hyperlipidemia; Vitamin D deficiencyCommunity acquired pneumonia of right lower lobe of lung Start: 79-03-7373sikzzvmassWZKTNMacon General Hospital Ambulatory PPGStart: 37-93-1104dmrrfhzylsQIROKMacon General Hospital Ambulatory PPGStart: 02-02-2025 End: 68-89-1895Vvsgys outpatient visit 25 minutesMarlys Garcia MD Work Phone: ProTrihealth Bethes[facility] Butler Hospitalca [facility]st Vascular FremontComment on above: Carotid stenosis, bilateral (Primary Dx)Start: 02-02-2025 End: 87-27-1291fuoqauqpdeQZTUQANKlickitat Valley Health Ambulatory PPGStart: 49-49-5876ekgxxgkmxhONAMTOklahoma [facility] [place] PPGStart: 01-26-2025 End: 87-33-3914Enehgb outpatient visit 25 minutesRomero Salinas MD Work Phone: noLittle [facility] NeurologyComment on above:Dementia with aggressive behavior (HCC) (Primary Dx); Memory loss; 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); Insomnia due to medical conditionStart: 01-26-2025 End: 97-82-2710dyackulvrqBLOHQSC W BAUERNot AvailableStart: 01-26-2025 End: 61-30-1720Knnxno Grant Salinas MD Work Phone: noms NEUROLOGYStart: 01-26-2025 End: 67-33-9184Cfnnfcjose Salinas MD Work Phone: noms NEUROLOGYStart: 01-05-2025 End: 12-52-6313Isoypzjkf encounterDafne Melendez BUSINESS PROCESS ENGINEER Work Phone: noms [facility] NeurologyStart: 11-30-2024 End: 80-80-9544Zlnbxf flowsRenee Melendez BUSINESS PROCESS ENGINEER Work Phone: noms NEUROLOGYStart: 11-30-2024 End: 56-06-5492Vhkcmx flowsheetFelicia C Tatygel BUSINESS PROCESS ENGINEER Work Phone: noms BM NEUROLOGYStart: 11-30-2024 End: 14-16-3110ttegrzyehqHWGKCWK C CLEMENTNot AvailableStart: 11-30-2024 End: 80-39-9118Zbhdsp outpatient visit 25 minutesFelicia C Tatygel BUSINESS PROCESS ENGINEER Work Phone: noms SWS NEURComment on above: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) (Primary Dx)Start: 11-14-2024 End: 49-97-9768Vvtxlpbvto Faviola Giron PROGRAM CONSULTANT Work Phone: OhMer[facility] NeurologyComment on above: Behavioral and psychological symptoms of dementia (HCC) (Primary Dx); Mild cognitive impairment; Major depressive disorder, recurrent, moderate (HCC)Start: 08-15-2024 End: 21-77-3831efntolsotuGIBZE M KREBSMerSamaritan Medical Centertart: 08-15-2024 End: 67-49-6421Nkrifxkggw hospital visit by Ankit Giron CUSTOMER SALES REPRESENTATIVE - PROGRAM CONSULTANT Work Phone: mWHZ LaboratoryComment on above:Moderate vascular dementia with agitation (HCC); Acquired hypothyroidism; Primary hypertension; Outbursts of explosive behavior; Mixed hyperlipidemia; DysuriaStart: 08-09-2024 End: 53-11-3909otafxrshtsPQHA [facility] Hospitaltart: 08-05-2024 End: 18-52-8998jwbibweuujHGWKL KREBSFacility:[facility]art: 08-05-2024 End: 62-45-6649Qwooexw encounter procedureAurora X Jn [facility] Start: 07-11-2024 End: 94-93-2843LnnwjuEdlrpg Lowe PA Work Phone: ana BELLEVUEComment on above:Other amnesiaStart: 06-08-2024 End: 69-95-5682UttavsNmoa Hill PA Work Phone: noms [facility] ROUTEComment on above:Other amnesiaStart: 05-16-2024 End: 29-53-7723zukeorbgyzXFLUW Carol NeftaliSamaritan Medical Centertart: 05-16-2024 End: 14-28-6319Wqslwvphaf hospital visit by Ankit Giron APRN Michel ROTHMAN Work Phone: mWHE LaboratoryComment on above:Mixed hyperlipidemia; Mild cognitive impairment; IFG (impaired fasting glucose); Primary hypertension; Prostate cancer screeningStart: 01-28-2024 End: 32-56-7609Bunjcv follow up visit related to original Jaja Garcia MD Work Phone: [facility] Vascular SurgeryComment on above:Bilateral carotid artery occlusion (Primary Dx)Start: 01-27-2024 End: 42-94-6244Giognhk encounter procedureChintan GRACIA [facility] Start: 01-20-2024 End: 19-70-9649Ueladfnvh Result EncounterMohamed Robbin Garcia MD Work Phone: NOUR External Department UnsolicitedStart: 01-20-2024 End: 67-27-3172Eadadpwjd Result EncounterMohamed Robbin Garcia MD Work Phone: GWRE External Department UnsolicitedStart: 01-14-2024 End: 37-79-1224Wxnzxw follow up visit related to original Jaja Garcia MD Work Phone: [facility] Jobst Vascular SurgeryComment on above:Postop check (Primary Dx)Start: 01-11-2024 End: 32-91-9232Dfunwav encounter procedureAurorsudhir Ragsdale [facility] P[place]ear Start: 12-31-2023 End: 15-17-7150Nhblhhofl encounterJaclin Tiffany CMASt Johnsbury HospitalMeditn Physicians V[facility] Surgery and Wound CareStart: 12-31-2023 End: 32-10-9440Hrivemz encounter procedureMakayla Corona [facility] Jonny start: 12-30-2023 End: 33-68-3127Mspylvxsvh and management of inpatientAMRITA YVONNE [facility] HospitalStart: 12-30-2023 End: 25-89-1405Vmajmdagi encounterKalen Alvarado MD Work Phone: [facility] Physicians CardiologyStart: 12-29-2023 End: 66-10-8510Buuchncaha and management of inpatientMODANNEMORA STATE HOSPITAL FOR THE CRIMINALLY INSANESHABANA Maggi [facility] Orthopedic HospitalComment on above:Stenosis of right carotid arteryStart: 12-21-2023 End: 01-93-5585Obnoaplgam and management of inpatientSRON Carol BREEChildren's Hospital for Rehabilitationtart: 12-21-2023 End: 51-95-4539Itvctfbzy to [facility] Phone Call Provider 4 [facility]art: 11-12-2023 End: 68-78-3619Kytlv abstractingMarlys Garcia MD Work Phone: [facility] Job[facility] Vascular SurgeryStart: 11-12-2023 End: 56-58-7104Xvbfeh outpatient new 45 minutesMarlys Garcia MD Work Phone: [facility] Comment on above:Transient ischemic attack involving right internal carotid artery (Primary Dx)Start: 06-06-2023 End: 79-65-8260Exzpivizi department patient visitPORTER Candacerandal Giron Work Phone: [facility] Work Phone: Start: 01-07-2023 End: 55-97-8994Fcgpbtk encounter procedureChintan GRACIA [facility] Start: 08-26-2022 End: 30-09-4599Bfqszqg encounter procedureChintan GRACIA [facility] Leonarda Start: 08-12-2022 End: 17-57-8284vycdmvvcbdYA EHAB ELTAHAWYFacility:N9Chind: 04-21-2022 End: 08-26-0331Olqsbhedsk hospital visit by Ankit Giron CUSTOMER SALES REPRESENTATIVE - PROGRAM CONSULTANT Work Phone: mwhz LaboratoryComment on above:Mixed hyperlipidemia; Bilateral carotid artery stenosis; Essential hypertension; History of alcoholism (HCC); Primary hypertensionStart: 04-15-2022 End: 17-87-6396Fkpqmvxlk to same day surgery centerAPRAliya Giron Work Phone: [facility]Digest[facility] HealthStart: 04-15-2022 End: 44-03-4032zffqjjckkcKVCS Susan M Krebs Work Phone: [facility] Work Phone: Start: 04-11-2022 End: 00-38-8678kzpjmhkszlVUSG Susan M Krebs Work Phone: [facility] Work Phone: Start: 04-11-2022 End: 40-79-4457Ytyxrfq encounter procedurePORTER Giron Work Phone: [facility] Hcj-Vyy-Usvsviwk Testing Start: 03-13-2022 End: 39-07-9216Ntmkwaoaax hospital visit by physicianMdax [facility] RadiologyComment on above:Fall, initial encounterStart: 01-13-2022 End: 71-85-5164Xyecilu encounter procedureChintan GRACIA [facility] [place] Start: 11-11-2021 End: 21-01-6801Qaaxhxiewl hospital visit by physicianM Additional [facility] RadiologyComment on above:Fall, initial encounter; Acute midline low back pain without sciaticaStart: 06-25-2021 End: 53-86-7739Xpejzpulhb and management of inpatientPHYSICIAN UNKNOWN Facility:[facility]ILITYtart: 03-28-2021 End: 98-39-4996Jqoanpetkg hospital [facility] MRIComment on above:Dizziness; Mild alcohol use disorder, in controlled environment; Bilateral carotid artery stenosis; Short-term memory lossStart: 10-22-2020 End: 14-55-5151Gyrinawscn hospital visit by Ankit Giron APRN - PROGRAM CONSULTANT Work Phone: mZ LaboratoryComment on above:Prostate cancer screening; Mixed hyperlipidemia; Essential hypertension; Thyroid disorder screeningStart: 08-25-2019 End: 80-43-8795Dsanrrgslv hospital visit by physiciandax Bello UsCENTRAL P[facility]ITALZ [facility] Comment on above:Dizziness; Smooth tongue; Screening for thyroid disorder; Essential hypertension; Pure hypercholesterolemia; Prostate cancer screeningDizziness; Essential hypertensionStart: 08-22-2019 End: 53-46-1306Ylckvvkmzp hospital visit by physicianMon[facility] EkgMZ EKGComment on above:Dizziness; Essential hypertension; Pure hypercholesterolemiaDizziness Procedures DateProcedureProcedure DetailPerforming ClinicianStart: 81-24-0786Jqv bmtry prtl coher intrfrmtry io lens pwr calMargarita Putnam DO Work Phone: Start: 03-02-2025 End: 47-77-8696Igznh medical xm&eval compre new pt 1/> vstAge-related nuclear cataract of both eyesMargarita Putnam DO Work Phone: comment on above:Age-related nuclear cataract of both eyes (Primary Dx); Intraoperative floppy iris syndrome (IFIS)Start: 37-51-5019Uvghdfwcmw exam chest 2 viewsSuzion Giron APRN - PROGRAM CONSULTANT Work Phone: Start: 39-73-8894Wlyukrptdxyyh metabolic panelSusan M [place] CUSTOMER SALES REPRESENTATIVE - PROGRAM CONSULTANT Work Phone: Start: 89-19-3650Ayxlb panelSusan Carol Giron CUSTOMER SALES REPRESENTATIVE - PROGRAM CONSULTANT Work Phone: Start: 63-91-3392Ytacbpfgvufji metabolic panelSusan Carol Giron CUSTOMER SALES REPRESENTATIVE - PROGRAM CONSULTANT Work Phone: Start: 08-02-1346SPOGY METAL BLOOD PANELSusan Carol Giron CUSTOMER SALES REPRESENTATIVE - PROGRAM CONSULTANT Work Phone: Start: 08-15-2024T. PALLIDUM ABSusan Carol Giron CUSTOMER SALES REPRESENTATIVE - PROGRAM CONSULTANT Work Phone: Start: 13-56-2997Wrabvwzobi microscopic onlySusaaliya Giron CUSTOMER SALES REPRESENTATIVE - PROGRAM CONSULTANT Work Phone: Start: 21-06-3486Dnbeq dip stick/tablet rgnt auto w/o microscopySusaaliya Giron CUSTOMER SALES REPRESENTATIVE - PROGRAM CONSULTANT Work Phone: Start: 90-60-9262TSSYWSC B12 & FOLATESusan Carol Giron CUSTOMER SALES REPRESENTATIVE - PROGRAM CONSULTANT Work Phone: Start: 92-81-6150Xpcbwuswwlgsm metabolic panelSusan Carol Giron CUSTOMER SALES REPRESENTATIVE - PROGRAM CONSULTANT Work Phone: Start: 97-52-4239Rrqjt panelSusan Carol Giron CUSTOMER SALES REPRESENTATIVE - PROGRAM CONSULTANT Work Phone: Start: 89-87-9244Quioba scan extracranial art compl bi studyMohamed Robbin Garcia MD Work Phone: Start: 88-13-7511Ulbmr metabolic panel calcium total Анна Turner MD Work Phone: Start: 08-14-1939Ufcsf count hematocritMohamed Maggi Garcia MD Work Phone: Start: 27-13-2816Dhf routine ecg w/least 12 lds trcg only w/o i&rBirma Lombardo MD Work Phone: Start: 18-05-6346Fakby metabolic panel calcium total Tico Lombardo MD Work Phone: Start: 38-76-0413YKAG ARTERIAL LINE SETUPEmanuel Clark MD Work Phone: start: 12-29-2023 End: 28-15-8095Tynen count complete auto&auto difrntl wbcDavid Rob Turner MD Work Phone: Start: 56-33-4872Ikzzwqg ionizedModomingo Garcia MD Work Phone: Start: 12-29-2023 End: 49-96-8783Kprjj w/patch grf carotid vertb subclav neck incModomingo Garcia MD Work Phone: Start: 37-53-8440Kpovy metabolic panel calcium total Mohamed Maggi Garcia MD Work Phone: Start: 77-23-3678Gnxvi depression screening assessment Kalen Alvarado MD Work Phone: Start: 60-76-3727Keewusu endarterectomyAlysha Galea Start: 38-58-7895Lqyxs chest X-rayAPRN Candace Giron Work Phone: Start: 05-46-7946Wvelu metabolic panel calcium total Candace Carol Bree CUSTOMER SALES REPRESENTATIVE - PROGRAM CONSULTANT Work Phone: Start: 82-05-0961Girnc panelSron Carol Bree CUSTOMER SALES REPRESENTATIVE - PROGRAM CONSULTANT Work Phone: Start: 95-67-4805UZGPKAK FASTING?Candacerandal Giron CUSTOMER SALES REPRESENTATIVE - PROGRAM CONSULTANT Work Phone: Start: 81-05-9947UywfmqjbnusJYTK Candace Giron Work Phone: Start: 55-72-4343Uojkr facial bones complete minimum 3 viewsMatthew A Clingman CUSTOMER SALES REPRESENTATIVE - PROGRAM CONSULTANT Work Phone: Start: 12-72-7752Vgvxh spine lumbosacral minimum 4 viewsSuzion Giron CUSTOMER SALES REPRESENTATIVE - PROGRAM CONSULTANT Work Phone: Start: 14-81-2253Hix brain brain stem w/o contrast materialSorn Giron CUSTOMER SALES REPRESENTATIVE - PROGRAM CONSULTANT Work Phone: Start: 96-84-2896OTD screeningSuzion Giron CUSTOMER SALES REPRESENTATIVE - PROGRAM CONSULTANT Work Phone: Commdux on above:The Nataliya ECLIA assay is used. Results obtained with different assay methods cannot be used interchangeably. Start: 69-81-8018Dbsuw metabolic panel calcium totalCandace Giron CUSTOMER SALES REPRESENTATIVE - PROGRAM CONSULTANT Work Phone: Start: 35-14-5053Wtbpv panelSron Giron CUSTOMER SALES REPRESENTATIVE - PROGRAM CONSULTANT Work Phone: Start: 58-39-3134AZVZNZJ FASTING?Candace Giron CUSTOMER SALES REPRESENTATIVE - PROGRAM CONSULTANT Work Phone: Start: 08-41-8757Matzmktyu on arteryChintan GRACIA Comment on above:carotid arteryStart: 19-98-5573Aymirz scan extracranial art compl bi studySuzion Giron Work Phone: Start: 54-43-4317Cxarx of thyroid stimulating hormone tshCandace Giron Work Phone: Start: 74-98-1979Qxgvvnsqdghvp metabolic panelSron Giron Work Phone: Start: 16-67-2441Sfrva Adrian Giron Work Phone: Start: 06-73-2602OSXBLWI FASTING?Candace Giron Work Phone: Start: 08-25-2019 End: 91-81-1944JRL screeningSuzion Giron Work Phone: Comtuya on above:The Nataliya ECLIA assay is used. Results obtained with different assay methods cannot be used interchangeably. Start: 44-78-9640EXHPLCH B12 & FOLATESuzion Giron Work Phone: Start: 29-42-5591Zrfjyzgijqhpd water vapor ablation of prostateAlysha Galea Start: 36-17-5542SyckeygbskRvwocd Galea ColonoscopyChintan iCracked SARS Antigen (LFIA)CUSTOMER SALES REPRESENTATIVE Candace Giron Work Phone: Structure of bursa (body structure)Chintan GRACIA TonsillectomyChintan GRACIA Plan of Treatment DateCare ActivityDetailAuthorStart: 44-06-3572LZcG/Tdap/Td vaccine (3 - Td or Tdap)DTaP/Tdap/Td vaccine (3 - Td or Tdap)[facility] DanvilleStart: 96-25-9642Evkrq panelLipidsBon [facility] HospitalStart: 02-08-2026 End: 02-35-2084Sjqhowx encounter iulbyitni11/03/2026 11:00 AM EDT Office Visit [facility] [place] [address] [place] [address] Marlys Garcia MD [address], [address] [address] [facility] [place]remontStart: 87-85-5704Ovhxlytypl MonitoringDepression MonitoringSovah Health - Danville Start: 43-79-8937gcdjefrdrpDeevsjixepLzlhyptz:EU NorwalkStart: 06-15-2025 End: 96-96-4904Krzabba encounter uhhbihywm04/08/2026 10:00 AM EST [facility] [address] [facility] [address] [place] [address] Lissette Muse, CUSTOMER SALES REPRESENTATIVE-PROGRAM CONSULTANT [address] [place], [place] [phone] [facility] NeurologyStart: 05-22-2025 End: 61-77-5526Ukpzzgn encounter hwcfeidjz74/15/2025 10:00 AM EST Office Visit [facility] [address] [place] [address] Candace Giron, CUSTOMER SALES REPRESENTATIVE - PROGRAM CONSULTANT [address] [place] [address] [facility]OSPITALtart: 58-37-1334Lzlnlh Wellness Visit (Medicare)Annual Wellness Visit (Medicare)[facility] HospitalStart: 34-42-6070Lmsusxaoqr MonitoringDepression Monitoring [facility] DanvilleStart: 74-20-0470Arant panelLipidsBon [facility] City HospitalStart: 05-12-2025 End: 03-00-1501Hjqevad encounter muxkoelpk38/05/2025 10:15 AM EST [facility] [address] [place] [phone] Margarita Putnam, DO [address] [place] [address] [facility] EyeStart: 04-14-2025 End: 57-09-6645Dqhcpry encounter bauaadbtk23/07/2025 10:15 AM EST Office Visit [facility] [address] [place] [phone] Margarita Putnam, [address] [place] [address] [facility] EyeStart: 03-09-2025 End: 09-75-4821Hcxhmbb encounter procedureNOMS [facility] NeurologyStart: 03-02-2025 End: 91-62-8466Zhjhbhl encounter hsgdgctie38/25/2025 10:00 AM EDT [facility] [address] [place] [phone] Margarita Putnam, DO [address] [place] [address] ArrivedNOSt. Dominic Hospital EyeComment on above:ArrivedStart: 02-27-2025 End: 87-53-0856Pgsvbvz encounter jutbbfznx49/22/2025 10:00 AM EDT Office Visit [address] [phone] Candace Giron, CUSTOMER SALES REPRESENTATIVE - PROGRAM CONSULTANT [address] [phone] recheck 2 weeks pneumonia.[facility] SHAW[facility]EEComment on above:recheck 2 weeks pneumonia.Start: 02-14-2025 End: 73-30-9389Lbzpqom encounter /09/2025 2:15 PM EDT Office Visit [facility] [address] [place] [phone] Margarita Putnam DO [address] [place] [address] [facility] EyeStart: 02-06-2025 COVID-19 Vaccine ( season)COVID-19 Vaccine ( season)[facility] RowellShelby Memorial HospitalStart: 65-59-6895QBOXP-19 Vaccine ( season)COVID- 19 Vaccine ( season)[facility] HealthcareStart: 99-89-4551Veosfqpes vaccinationINTERMOUNTAIN MEDICAL [facility]ENTER HealthcareStart: 02-02-2025 End: 69-70-7932GS Carotid arteries - bilateralVas carotid duplex bilateral Vascular Ultrasound Routine Carotid stenosis, bilateral Expected: 02/02/2025, Expires: 02/02/2026[facility] Work Phone: [phone])Comment on above:Expected: 02/02/2025, Expires: 02/02/2026Start: 54-85-4540Sfgqssv ScreeningTobacco ScreeningSycamore Medical Center SystemStart: 01-27-2025 End: 64-39-9965KQ Carotid arteries - bilateralVas carotid duplex bilateral Vascular Ultrasound Routine Bilateral carotid artery occlusion Expected: 01/27/2025 (Approximate), Expires: 01/27/2025[facility] Work Phone: Comment on above:Expected: 01/27/2025 (Approximate), Expires: 01/27/2025Start: 01-26-2025 End: 16-01-6224Gxqjasb encounter ptpbsolha68/21/2025 3:20 PM EDT Office Visit [facility] [address] [facility] [address] [place] [phone] Romero Salinas MD [address] [facility] [address], [place] [phone] [facility] Comment on above:ArrivedStart: 01-19-2025 End: 32-94-4946Dwktdfx encounter drcmlxyjh64/14/2025 9:00 AM EDT Office Visit [facility] [address] [place] [address] Marlys Garcia MD [address], [address] [address] [facility] Vascular SurgeryStart: 01-18-2025 End: 79-39-9196Mfmoinj encounter pzaaqpytg16/13/2025 3:30 PM EDT Office Visit [facility] [address] [facility] [address] [place] [address] Dafne Melendez, BUSINESS PROCESS ENGINEER [address], [address] [phone] [facility] Start: 01-16-2025 End: 72-04-0703Acsvtqt encounter ygxvemxvi24/11/2025 10:00 AM EDT Office Visit [facility] [address] [facility] [address] [place] [address] Dafne Melendez, BUSINESS PROCESS ENGINEER [address], [address] [address] NOMS [facility] NEURStart: 82-83-9060Yqnvc BMI ScreeningAdult BMI ScreeningProTrihealth Bethesda Butler Hospitalca [facility] SystemStart: 16-16-1392Hxfpkmb ScreeningTobacco ScreeningProTrihealth Bet[facility]da Butler Hospitalca [facility] SystemStart: 16-97-1409Etalejieo vaccinationFlu vaccine (#1)[facility] HospitalStart: 12-38-8707Lwkyb BMI ScreeningAdult BMI ScreeningSycamore Medical Center SystemStart: 01-63-4472Uskysgbfcr ScreeningDepression ScreeningSycamore Medical Center SystemStart: 13-85-6623Bnmuwng ScreeningTobacco ScreeningSycamore Medical Center SystemStart: 07-35-4509Uwovj BMI ScreeningAdult BMI ScreeningSycamore Medical Center SystemStart: 54-31-8800Yudsvsc ScreeningTobacco ScreeningSycamore Medical Center SystemStart: 93-85-7226Vovuibz ScreeningTobacco ScreeningSycamore Medical Center SystemStart: 24-91-6983PFXYF-19 Vaccine ( season)COVID-19 Vaccine ( season)[facility] HospitalStart: 08-15-2024 End: 07-34-1012Paprhge encounter syvuczuax14/10/2025 9:20 AM EDT Office Visit [facility] [address] [place] [phone] Candace Giron, CUSTOMER SALES REPRESENTATIVE - PROGRAM CONSULTANT [address] [place] [address] 3 mon checkMERCY MOUNTAINSTAR HEALTHCAREComment on above:3 mon checkStart: 11-48-0559CWPIA-19 Vaccine ( season)COVID-19 Vaccine ( season)[facility] HospitalStart: 40-95-7733Uwggcmlgr vaccinationINTERMOUNTAIN MEDICAL [facility]ENTER HealthcareStart: 01-28-2024 End: 70-53-7283Ffvsmrc encounter indsbfkzz08/22/2024 9:00 AM EDT Office Visit [facility] [address] [place] [phone] Marlys Garcia MD [address], [address] [address] [facility] SurgeryStart: 01-14-2024 End: 90-82-2231BU Carotid arteries - bilateralVas carotid duplex bilateral Vascular Ultrasound Routine Postop check Expected: 01/14/2024, Expires: 01/13/2025[facility] Work Phone: Comment on above:Expected: 01/14/2024, Expires: 01/13/2025Start: 01-14-2024 End: 25-20-4835Avzrrdf encounter vfdoxtkom33/08/2024 8:30 AM EDT Office Visit [facility] [address] [place] [address] Marlys Garcia MD [address], [address] [place] [address] [facility] Wound CareStart: 12-29-2023 End: 15-10-5099Ugbwmmpbo to same day surgery dkabbi9912/29/2023 8:30 AM EDT - 12/29/2023 11:30 AM EDT Surgery [facility] Surgery [address] [place] [phone] Marlys Garcia MD [address], [address] [place] [address] ENDARTERECTOMY CAROTID [15249 (CPT )][facility] SurgeryComment on above:ENDARTERECTOMY CAROTID [39228 (CPT )]Start: 34-53-2058Qrpdjpsxxd hospital visit by qeyhtpfcw56/23/2024 8:30 AM EDT Hospital Encounter [facility] Surgery [address] [place] [phone] Marlys Garcia MD [address], [address] [place] [address] (Work) [facility] SurgeryStart: 12-29-2023 End: 18-84-6835Oasbb w/patch grf carotid vertb subclav neck incENDARTERECTOMY CAROTID CAROTID STENOSIS RIGHT 12/29/2023 8:30 AM EDTTOLEDO SURGERYStart: 86-16-1485YPtN,Tdap and Td Vaccines (2 - Td or Tdap)DTaP,Tdap and Td Vaccines (2 - Td or Tdap)[facility]art: 48-09-3185PJfR/Tdap/Td vaccine (2 - Td or Tdap)DTaP/Tdap/Td vaccine (2 - Td or Tdap)[facility]: 23-08-7108LWnV/Tdap/Td vaccine (2 - Td)DTaP/Tdap/Td vaccine (2 - Td)[place]: 04-27-2023 End: 22-62-5712Ztlqwny encounter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 flomax No pm or dfib No latex Last edited by PHONG Majano on 03/02/2025 10:29 AM. Current Outpatient Medications (Ophthalmic Agents) Medication Sig Dispense Refill Dgjutajmfzp-Eybsnfxi-Gxcxsttng 1-0.5-0.075 % solution Administer 1 drop into affected eye(s) in themorning and 1 drop at noon and 1 drop in the evening and 1 drop before bedtime. 10 mL 1 No current facility-administered medications for this visit. (Ophthalmic Agents) Current Outpatient Medications (Other) Medication Sig Dispense Refill ASPIRIN 81 PO Take 1 tablet by mouth in the morning. Brexpiprazole (Rexulti) 4 MG tablet Take 4 mg by mouth at bedtime 30 tablet 3 donepezil (Aricept) 10 MG tablet TAKE 1 TABLET BY MOUTH EVERYDAY AT BEDTIME 30 tablet 3 donepezil (Aricept) 10 MG tablet Take 1 tablet (10 mg) by mouth in the morning and in the evening 60 tablet 3 levothyroxine (Synthroid, Levoxyl) 50 MCG tablet Take 50 mcg by mouth in the morning. Take before meals. losartan (Cozaar) 25 MG tablet simvastatin (Zocor) 40 MG tablet tamsulosin (Flomax) 0.4 MG 24 hr capsule Take 0.4 mg by mouth in the morning. traZODone (Desyrel) 50 MG tablet Take 1 tablet (50 mg) by mouth in the morning and 1 tablet (50 mg)before bedtime. 60 tablet 11 No current facility-administered medications for this visit. (Other) Past Medical History: Diagnosis Date BPH (benign prostatic hyperplasia) Carotid stenosis Dementia (HCC) getting worse, has been diagnosed for 5 years Depressed HTN (hypertension) Hypothyroid TIA (transient ischemic attack) 2024 Allergies Allergen Reactions Ibuprofen Other Reaction(s): HYPERTENSION, increases BP Other reaction(s): HYPERTENSION Memantine Headache Nsaids Elevates blood pressure Review of Systems Constitutional: Negative. HENT: Negative. Eyes: Negative. Respiratory: Negative. Cardiovascular: Negative. Gastrointestinal: Negative. Genitourinary: Negative. Musculoskeletal: Negative. Skin: Negative. Neurological: Negative. Psychiatric/Behavioral: Negative. Hematological: Negative. Endocrine: Negative. Allergic/Immunologic: Negative. Objective Base Eye Exam Visual Acuity (Snellen - Linear) Right Left Dist cc 20/80 -1 20/100 Tonometry (Applanation, 10:44 AM) Right Left Pressure 16 16 Pupils Pupils Right PERRL Left PERRL Visual Roman Left Right Full Full Extraocular Movement Right Left Full, Ortho Full, Ortho Neuro/Psych Oriented x3: Yes Dilation Both eyes: 1.0% Mydriacyl @ 10:29 AM Additional Tests Keratometry K1 [place] K2 [place] Right 43.25 114 45.00 24 Left 43.50 73 45.25 163 Glare Testing High Right 20/200 Left 20/100 Slit Lamp and Fundus Exam External Exam Right Left External Deep set orbits Deep set orbits Slit Lamp Exam Right Left Lids/Lashes Blepharitis Blepharitis Conjunctiva/Sclera White and quiet White and quiet Cornea Decreased tear film Decreased tear film Anterior Chamber Deep and quiet Deep and quiet Iris Round and reactive Round and reactive Lens 3+ Nuclear sclerosis, 1+ Cortical cataract, Vacuoles, 1+ Anterior subcapsular cataract 3+ Nuclear sclerosis, 1+ Cortical cataract, Vacuoles, 1+ Anterior subcapsular cataract, 1+ Posterior subcapsular cataract Anterior Vitreous Normal Normal Fundus Exam Right Left Disc Poor view Poor view Macula Normal Normal Vessels Normal Normal Periphery Normal Normal Refraction Wearing Rx Sphere Cylinder [place] Add Right +0.50 -2.00 112 +2.50 Left +1.75 -1.75 083 +2.50 Final Rx Sphere Cylinder [place] Dist [place] Right Sylvia -2.00 112 20/80 Left +1.25 -1.75 083 20/80 Expiration Date: 03/02/2026 Assessment/Plan Diagnoses and all orders for this visit: Age-related nuclear cataract of both eyes - Visually Significant Cataract, OU: I discussed the risks, benefits, alternatives, and expectations of cataract surgery. A complete ophthalmic exam was performed and it was determined that the cataracts were a primary source of vision decline, affecting activities of daily living, necessitating removal. Limited vision post-surgery may occur with pre-existing conditions affecting other areas of the eye or the brain was explained and the patient displayed an understanding. The overall objective is to improve ADLs, not eliminate glasses or restore vision to 20/20. Tests were reviewed - the different lens options were explained including the ney-pi-dsheps fees for any upgrades. Intraocular lens (IOL) selection may be altered either prior to or during the procedure based on the doctor's discretion including reverting to a traditional intraocular lens (IOL). They understood that there will exist the potential of glasses prescription need post surgery for near, distance or possibly both. The patient stated a full understanding and a desire to proceed with the procedure. The patient received cataract measurements and had any additional questions answered. Intraoperative Floppy Eyelid Syndrome (IFIS): The patient currently or has in the past taken a medication, such as Flomax, that increases the likelihood of encountering IFIS during there case. This condition was discussed with them and precautions will be taken, such as using a Malyugin Ring, during the surgery to stabilize this. However, the risk remains that a complication may occur due to thiscondition. - A complete exam was performed including a physical exam: General: AAOx3 and NAD, Lungs: Clear, Heart: RRR, Abdomen: S/NT/ND, Extremities: no pitting edema. documented in this encounterSaint Luke's [facility] Hospital–[id number] Evaluation + Plan note* Assessment & Plan Note - Marlys Garcia MD - 02/02/2025 10:08 PM EDT Associated Problem(s): Carotid stenosis, bilateral Continue aspirin 81 mg and simvastatin 40 mg. Continue risk factors modification. Surveillance imaging in a year with a carotid duplex ultrasound. [facility]08-28-2025 Miscellaneous Notes* Assessment & Plan Note - Marlys Garcia MD - 02/02/2025 10:08 PM EDTAssociated Problem(s): Carotid stenosis, bilateral Continue aspirin 81 mg and simvastatin 40 mg. Continue risk factors modification. Surveillance imaging in a year with a carotid duplex ultrasound. documented in this encounterSt. [facility] History of Present illness Narrative* Marlys Garcia MD - 02/02/2025 11:40 AM EDT Images from the original note were not included. To: Candace Giron, CUSTOMER SALES REPRESENTATIVE-PROGRAM CONSULTANT HPI: Faith Penn is a 79 y.o. male with bilateral carotid endarterectomy in the past comes in with surveillance imaging. He has a Heimer that has been stable. No new stroke or mini stroke no vision problems or transient ischemic attacks.. Review of Systems: Review of Systems Constitutional: Negative. HENT: Negative. Respiratory: Negative. Cardiovascular: Negative. Gastrointestinal: Negative. Endocrine: Negative. Genitourinary: Negative. Musculoskeletal: Negative. Skin: Negative. Neurological: Negative. Hematological: Negative. Medications: Current Outpatient Medications on File Prior to Visit Medication Sig Dispense Refill aspirin 81 mg Take 1 tablet (81 mg total) by mouth nightly. donepeziL (ARICEPT) 10 mg tablet Take 1 tablet (10 mg total) by mouth nightly. For memory FLUoxetine (PROzac) 20 mg capsule Take 1 capsule (20 mg total) by mouth in the morning. Indications: repeated episodes of anxiety. levothyroxine (SYNTHROID, LEVOTHROID) 50 MCG tablet Take 1 tablet (50 mcg total) by mouth in the morning. Indications: a condition with low thyroid hormone levels. losartan (COZAAR) 25 mg tablet Take 1 tablet (25 mg total) by mouth nightly. For HTN melatonin 10 mg tablet extended release Take 20 mg by mouth nightly. QUEtiapine (SEROquel) 50 mg tablet Take by mouth 2 (two) times a day Indications: repeated episodesof anxiety. 100mg in AM and 50mg in PM simvastatin (ZOCOR) 40 mg tablet Take 1 tablet (40 mg total) by mouth nightly Indications: excessive fat in the blood. tamsulosin (FLOMAX) 0.4 mg capsule Take 1 capsule (0.4 mg total) by mouth nightly Indications: enlarged prostate with urination problem. Takes at 7-8pm No current facility-administered medications on file prior to visit. Past Medical History: Past Medical History: Diagnosis Date Adverse effect of anesthesia confusion after Anger reaction occ can possibly throw things Anxiety Behavioral and psychological symptoms of dementia ([facility]-HCC) Benign prostatic hyperplasia with urinary obstruction Urinary tract symptoms Bilateral carotid artery stenosis Bruises easily Carotid stenosis, right Cognitive impairment mild COVID-19 Dementia ([facility]-HCC) short term memory loss- per Depression Hematuria, gross Hyperlipemia Hypertension Hypothyroidism Impotence Memory loss Nocturia Poor urinary stream Positive colorectal cancer screening using Cologuard test TIA (transient ischemic attack) 10/30/2023 difficulty with vision and speech lasting 1-2 mins then slept x1 hour...sypmtoms resolved Past Surgical History: Past Surgical History: Procedure Laterality Date ADENOIDECTOMY CAROTID ENDARTERECTOMY Left 06/25/2021 COLONOSCOPY x4 ELBOW ARTHROSCOPY ENDARTERECTOMY CAROTID Right 12/29/2023 Performed by Marlys Garcia MD at [facility] SKIN CANCER EXCISION TONSILLECTOMY Social and Family History: Social History Socioeconomic History Marital status: Spouse name: Not on file Number of children: Not on file Years of education: Not on file Highest education level: Not on file Occupational History Not on file Tobacco Use Smoking status: Former Types: Pipe, Cigars Passive exposure: Never Smokeless tobacco: Never Vaping Use Vaping status: Never Used Substance and Sexual Activity Alcohol use: Not Currently Alcohol/week: 4.0 standard drinks of alcohol Types: 4 Glasses of wine per week Drug use: Never Sexual activity: Defer Other Topics Concern Not on file Social History Narrative Not on file Social Drivers of Health Financial Resource Strain: Low Risk (11/16/2023) Received from [facility] Overall Financial Resource Strain (CARDIA) Difficulty of Paying Living Expenses: Not hard at all Food Insecurity: No Food Insecurity (08/15/2024) Received from [facility] Hunger Vital Sign Worried About Running Out of Food in the Last Year: Never true Ran Out of Food in the Last Year: Never true Transportation Needs: No Transportation Needs (08/15/2024) Received from [facility] PRAPARE - Transportation Lack of Transportation (Medical): No Lack of Transportation (Non-Medical): No Physical Activity: Inactive (05/16/2024) Received from [facility] Exercise Vital Sign Days of Exercise per Week: 0 days Minutes of Exercise per Session: 0 min Stress: Not on file Social Connections: Not on file Interpersonal Safety: Not At Risk (12/29/2023) Humiliation, Afraid, Rape, and Kick questionnaire Fear of Current or Ex-Partner: No Emotionally Abused: No Physically Abused: No Sexually Abused: No Housing Instability: Low Risk (08/15/2024) Received from [facility] Housing Stability Vital Sign Unable to Pay for Housing in the Last Year: No Number of Times Moved in the Last Year: 0 Homeless in the Last Year: No Family History Problem Relation Age of Onset Anesthesia problems Neg Hx Recent Labs: Recent and relative labs were reviewed and interpreted and contributed to the assessment and plan below. Vitals: There were no vitals taken for this visit. There is no height or weight on file to calculate BMI. Physical Exam: Physical Exam Constitutional: Appearance: Normal appearance. HENT: Head: Normocephalic and atraumatic. Mouth/Throat: Mouth: Mucous membranes are moist. Eyes: Extraocular Movements: Extraocular movements intact. Pupils: Pupils are equal, round, and reactive to light. Cardiovascular: Rate and Rhythm: Normal rate and regular rhythm. Pulmonary: Effort: Pulmonary effort is normal. Breath sounds: Normal breath sounds. Abdominal: General: Abdomen is flat. Bowel sounds are normal. Palpations: Abdomen is soft. Musculoskeletal: General: Normal range of motion. Cervical back: Normal range of motion. Skin: General: Skin is warm and dry. Neurological: General: No focal deficit present. Mental Status: He is alert and oriented to person, place, and time. Mental status is at baseline. Psychiatric: Mood and Affect: Mood normal. Behavior: Behavior normal. Thought Content: Thought content normal. Judgment: Judgment normal. Recent testing: Recent labs and noninvasive tests have been reviewed. Assessment and Plan: Problem List Carotid stenosis, bilateral - Primary Current Assessment & Plan Continue aspirin 81 mg and simvastatin 40 mg. Continue risk factors modification. Surveillance imaging in a year with a carotid duplex ultrasound. Relevant Orders Vas carotid duplex bilateral Faith was seen today for 1 yr follow up carotid test done. Diagnoses and all orders for this visit: Carotid stenosis, bilateral - Vas carotid duplex bilateral; Future Marlys Garcia MD, HOLA, RPVI, FSVS, FACS [employer] This note was created with the assistance of a speech recognition program. While intending to generate a timely document that accurately reflects the content of the visit, no guarantee can be provided that every grammatical or spelling mistake has been or will be identified or corrected. Thank you for your understanding. documented in this encounterSt. [facility] of [facility]08-[facility] History of Present illness Narrative* Romero Salinas MD - 01/26/2025 3:20 PM EDT [...] the increased dosage will be sent to [facility] in [place]. 3. I will increase the donepezil (Aricept) [...] 3 This clinical note was created utilizing DreamHeart documentation system. All information has beenthoroughly reviewed, corrected as necessary, and authenticated by the provider to ensure accuracy and completeness. On occasion, DreamHeart documentation system erroneously drops words or replaces aspoken word with a similar sounding word. Please notify with any questions or concerns regarding this clinical note. documented in this encounterSaint Luke's North Hospital–Sm[id number] Telephone encounter Note* Telephone Encounter - Luz Elena Charles - 01/05/2025 3:06 PM EDT Pt called today and stated the pt only has enough REXULTI 2 mg medication to last to the and his appt is on Jan 18. Pt received sample packs and the would like to come pickling operator anothersample pack if possible [phone] [facility]–Sm[id number] Miscellaneous Notes* Telephone Encounter - Luz Elena Melvin - 01/05/2025 3:06 PM EDT Pt called today and stated the pt only has enough REXULTI 2 mg medication to last to the and his appt is on Jan 18. Pt received sample packs and the would like to come pickling operator anothersample pack if possible [phone] documented in this encounterSaint Luke's North Hospital–Sm[id number] History of Present illness Narrative* Dafne Melendez NP - 11/30/2024 9:40 AM EDT Images from the original note were not included. CHIEF COMPLAINT REASON FOR VISIT : Transfer from [facility] HPI: MEMORY LOSS -accompanied by and [...] Depression: Not at risk (08/15/2024) Received from [facility] PHQ-2 PHQ-9 Total Score: 0 REVIEW [...] of education. Cranial Nerves CN II: Visual roman full to confrontation. CN III, IV, : [...] 2+ 2+ Patellar 2+ 2+ Coordination Right: Wtdypa-fg-lxor normal. Rapid alternating movement normal.Left: Mqcsoe-rm-uvic normal. Rapid alternating movement normal. Gait Casual [...] showed mild SVID and atrophy 2022 MMSE 1710/08/2023 CTA of the head and neck did not show any large vessel occlusion. Mild bilateral ICA stenosis. Moderate stenosis at the origin of the right cervical internal carotid artery with 50 percentor greater. Remainder of the bilateral cervical internal [...] Trazodone as well. We will trial him onrexulti. He is no longer driving. He has refused to coplete the cognitive testing in the past and Idon't think it would change therapy anyway. We have discussed that he may need a memory care unit, e specially if he becomes a danger to himself [...] with behavioral disturbance (HCC) documented in this encounterSaint Luke's North Hospital–SmithvilleDtnvssjryo78-05-0837 NoteBELLKING[facility] Chief Complaint: Patient here for 6 mo follow up hypertension, aortic valve regurgitation, and carotid artery stenosis s/p CEA in Jun 2021. Had echo in November 2023 after last apt, prior to right CEA with Dr. Garcia in December. He was seen as inpatient consult by cardiology for suspicion of heart block. This was ruled out by [facility] cardiology team. Had routine labs with lipid [...] Carotid artery stenosis, Hyperlipidemia, Hypertension, and Stroke (CMS/HCC). Surgical History He has a past surgical [...] normal. No leaflet thic (more content not included)...[facility]02-28-2025 Hospital Discharge instructions Patient Education 08/05/2024 14:59:31 Benign Prostatic Hyperplasia Benign Prostatic Hyperplasia Benign prostatic hyperplasia (BPH) is an enlarged prostate gland that is caused by the normal agingprocess. The prostate may get bigger as a man gets older. The condition is not caused by cancer. The prostate is a walnut-sized gland that is involved in the production of semen. It is located in front of the rectum and below the bladder. The bladder stores urine. The urethra carries stored urine ou t of the body. An enlarged prostate can press on the urethra. This can make it harder to pass urine. The buildup of urine in the bladder can cause infection. Back pressure and infection may progress to bladder damage and kidney (renal) failure. What are the causes? This condition is part of the normal aging process. However, not all men develop problems from thiscondition. If the prostate enlarges away from the [...] urethra. Follow these instructions at home: Take aehh-rig-kkjamds and prescription medicines only as told by [...] provider. Document Revised: 12/11/2021 Document Reviewed: 12/11/2021 Elsevier Patient Education 2023 [employer]. Follow Up Care 07/14/2024 10:18:41 With:DHAVAL Ragsdale APRN, ELIEZER Giraldo, URL Address: When: Unknown [facility] 02-28-2025 NotePatient Education Urology Benign Prostatic Hyperplasia Benign prostatic hyperplasia (BPH) is an enlarged prostate gland that is caused by the normal agingprocess. The prostate may get bigger as a man gets older. The condition is not caused by cancer. The prostate is a walnut-sized gland that is involved in the production of semen. It is located in front of the rectum and below the bladder. The bladder stores urine. The urethra carries stored urine ou t of the body. An enlarged prostate can press on the urethra. This can make it harder to pass urine. The buildup of urine in the bladder can cause infection. Back pressure and infection may progress to bladder damage and kidney (renal) failure. What are the causes? This condition is part of the normal aging process. However, not all men develop problems from thiscondition. If the prostate enlarges away from the [...] this procedure, a tool is inserted through theopening at the tip of the penis (urethra). [...] procedure uses radio frequencies to destroy and removea small amount of prostate tissue. ? Interstitial laser coagulation (ILC). This procedure uses a laser to destroy and remove a small amount of prostate tissue. ? Transurethral electrovaporization (TUVP). This procedure uses electrodes to destroy and remove a small amount of prostate tissue. ? Prostatic urethral lift. This procedure inserts an implant to push the lobes of the prostate awayfrom the urethra. Follow these instructions at home: ??? Take hzrd-ysb-ntwwgmo and prescription medicines only as told by [...] symptoms do not get (more content not included)...[facility]02-03-2025 Telephone encounter Note* Telephone Encounter - Robbin Bolden MA - 07/11/2024 2:59 PM EST Spoke with Ana at PCP office. She states that PCP did not start med however she did make and adjustment due to pts behaviors. She states that we are to con't medication. [facility] [id number] Miscellaneous Notes* Telephone Encounter - Robbin Bolden MA - 07/11/2024 2:59 PM EST Spoke with Ana at PCP office. She states that PCP did not start med however she did make and adjustment due to pts behaviors. She states that we are to con't medication. * Telephone Encounter - Lissette Santana MA - 07/11/2024 11:20 AM EST I see that there was a follow up question in the last task but it was signed? Not sure if the PCP was ever called on this? documented in this encounterSaint Luke's North Hospital–Sm[id number] Telephone encounter Note* Telephone Encounter - Lissette Santana MA - 07/11/2024 11:20 AM EST I see that there was a follow up question in the last task but it was signed? Not sure if the PCP was ever called on this? [facility]–[id number] Telephone encounter Note* Telephone Encounter - THOMAS Ortega - 06/14/2024 9:51 AM EST I reviewed his chart. I am able to see PCP notes and it appears that he remains on this as his medications are being adjusted due to aggressive behavior towards his . I will send in a courtesy refill. Are you able to reach out to PCP to see if they would like him to be followed by us as well orwould she be willing to send in the future since we are unable to get a hold of him. I know they are going through a lot right now, thanks! [facility]–[id number] Miscellaneous Notes* Telephone Encounter - THOMAS Ortega - 06/14/2024 9:51 AM EST I reviewed his chart. I am able to see PCP notes and it appears that he remains on this as his medications are being adjusted due to aggressive behavior towards his . I will send in a courtesy refill. Are you able to reach out to PCP to see if they would like him to be followed by us as well orwould she be willing to send in the future since we are unable to get a hold of him. I know they are going through a lot right now, thanks! * Telephone Encounter - Robbin Bolden MA - 06/14/2024 8:40 AM EST LMTCB x 3. Sending letter. Would you like to fill this medication? Please advise. * Telephone Encounter - oRbbin Bolden MA - 06/13/2024 8:39 AM EST LMTCB x 2 * Telephone Encounter - Becca Alfonso - 06/09/2024 9:24 AM EST LMTCB X 1 * Telephone Encounter - Lissette Santana MA - 06/09/2024 9:20 AM EST Patient needs an appt before we can send refills. Seen last August documented in this encounterSaint Luke's North Hospital–[id number] Telephone encounter Note* Telephone Encounter - Robbin Bolden MA - 06/14/2024 8:40 AM EST LMTCB x 3. Sending letter. Would you like to fill this medication? Please advise. [facility]–[id number] Telephone encounter Note* Telephone Encounter - Robbin Bolden MA - 06/13/2024 8:39 AM EST LMTCB x 2 [facility]–[id number] Telephone encounter Note* Telephone Encounter - Becca Alfonso - 06/09/2024 9:24 AM EST LMTCB X 1 [facility]–[id number] Telephone encounter Note* Telephone Encounter - Lissette Santana MA - 06/09/2024 9:20 AM EST Patient needs an appt before we can send refills. Seen last August [facility]–[id number] Evaluation + Plan note* Assessment & Plan Note - Marlys Garcia MD - 01/28/2024 10:04 AM EDTAssociated Problem(s): Bilateral carotid artery occlusion He is status post bilateral carotid endarterectomies. Duplex ultrasound shows wide open carotids. Will continue antiplatelet therapy statin and surveillance imaging annually. [facility]08-22-2024 Miscellaneous Notes* Assessment & Plan Note - Marlys Garcia MD - 01/28/2024 10:04 AM EDTAssociated Problem(s): Bilateral carotid artery occlusion He is status post bilateral carotid endarterectomies. Duplex ultrasound shows wide open carotids. Will continue antiplatelet therapy statin and surveillance imaging annually. documented in this encounterSt. [facility] of [facility]08-22-2024 History of Present illness Narrative* Marlys Garcia MD - 01/28/2024 9:00 AM EDT Images from the original note were not included. To: Candace Giron, CUSTOMER SALES REPRESENTATIVE-PROGRAM CONSULTANT HPI: Faith Penn is a 78 y.o. male with Right carotid endarterectomy for symptomatic high-grade stenosis.She is doing very well. The area healed nicely. He is here with a carotid duplex ultrasound.. Review of Systems: Review of Systems Constitutional: Negative. HENT: Negative. Respiratory: Negative. Cardiovascular: Negative. Gastrointestinal: Negative. Endocrine: Negative. Genitourinary: Negative. Musculoskeletal: Negative. Skin: Negative. Neurological: Negative. Hematological: Negative. Medications: Current Outpatient Medications on File Prior to Visit Medication Sig Dispense Refill aspirin 81 mg Take 1 tablet (81 mg total) by mouth nightly. donepeziL (ARICEPT) 10 mg tablet Take 1 tablet (10 mg total) by mouth nightly. For memory FLUoxetine (PROzac) 20 mg capsule Take 1 capsule (20 mg total) by mouth in the morning. Indications: repeated episodes of anxiety. levothyroxine (SYNTHROID, LEVOTHROID) 50 MCG tablet Take 1 tablet (50 mcg total) by mouth in the morning. Indications: a condition with low thyroid hormone levels. losartan (COZAAR) 25 mg tablet Take 1 tablet (25 mg total) by mouth nightly. For HTN melatonin 10 mg tablet extended release Take 20 mg by mouth nightly. QUEtiapine (SEROquel) 50 mg tablet Take by mouth 2 (two) times a day Indications: repeated episodesof anxiety. 100mg in AM and 50mg in PM simvastatin (ZOCOR) 40 mg tablet Take 1 tablet (40 mg total) by mouth nightly Indications: excessive fat in the blood. tamsulosin (FLOMAX) 0.4 mg capsule Take 1 capsule (0.4 mg total) by mouth nightly Indications: enlarged prostate with urination problem. Takes at 7-8pm clopidogreL (PLAVIX) 75 mg tablet Take 1 tablet (75 mg total) by mouth in the morning. (Patient nottaking: Reported on 01/14/2024) 30 tablet 12 No current facility-administered medications on file prior to visit. Past Medical History: Past Medical History: Diagnosis Date Adverse effect of anesthesia confusion after Anger reaction occ can possibly throw things Anxiety Behavioral and psychological symptoms of dementia (CMS-HCC) Benign prostatic hyperplasia with urinary obstruction Urinary tract symptoms Bilateral carotid artery stenosis Bruises easily Carotid stenosis, right Cognitive impairment mild COVID-19 Dementia (CMS-HCC) short term memory loss- per Depression Hematuria, gross Hyperlipemia Hypertension Hypothyroidism Impotence Memory loss Nocturia Poor urinary stream Positive colorectal cancer screening using Cologuard test TIA (transient ischemic attack) 10/30/2023 difficulty with vision and speech lasting 1-2 mins then slept x1 hour...sypmtoms resolved Past Surgical History: Past Surgical History: Procedure Laterality Date ADENOIDECTOMY CAROTID ENDARTERECTOMY Left 06/25/2021 COLONOSCOPY x4 ELBOW ARTHROSCOPY ENDARTERECTOMY CAROTID Right 12/29/2023 Performed by Marlys Garcia MD at [facility] SKIN CANCER EXCISION TONSILLECTOMY Social and Family History: Social History Socioeconomic History Marital status: Spouse name: Not on file Number of children: Not on file Years of education: Not on file Highest education level: Not on file Occupational History Not on file Tobacco Use Smoking status: Former Types: Pipe, Cigars Passive exposure: Never Smokeless tobacco: Never Vaping Use Vaping status: Never Used Substance and Sexual Activity Alcohol use: Not Currently Alcohol/week: 4.0 standard drinks of alcohol Types: 4 Glasses of wine per week Drug use: Never Sexual activity: Defer Other Topics Concern Not on file Social History Narrative Not on file Social Determinants of Health Financial Resource Strain: Low Risk (11/16/2023) Received from [facility] Overall Financial Resource Strain (CARDIA) Difficulty of Paying Living Expenses: Not hard at all Food Insecurity: No Food Insecurity (01/28/2024) Hunger Screening Food Insecurity - Worry: Never True Food Insecurity - Inability: Never True Transportation Needs: No Transportation Needs (12/29/2023) PRAPARE - Transportation Lack of Transportation (Medical): No Lack of Transportation (Non-Medical): No Physical Activity: Insufficiently Active (04/27/2023) Received from [facility] Exercise Vital Sign Days of Exercise per Week: 7 days Minutes of Exercise per Session: 20 min Stress: Not on file Social Connections: Not on file Interpersonal Safety: Not At Risk (12/29/2023) Humiliation, Afraid, Rape, and Kick questionnaire Fear of Current or Ex-Partner: No Emotionally Abused: No Physically Abused: No Sexually Abused: No Housing Instability: Low Risk (12/29/2023) Housing Instability Housing Instability: No Family History Problem Relation Age of Onset Anesthesia problems Neg Hx Recent Labs: Recent and relative labs were reviewed and interpreted and contributed to the assessment and plan below. Vitals: BP 132/68 (BP Site: Left Arm, BP Postition: Sitting, BP CUFF SIZE: M (9-13 inches)) Pulse 57 Ht185.4 cm (6' 1 ) Wt 81.6 kg (180 lb) SpO2 90% BMI 23.75 kg/m Body mass index is 23.75 kg/m . Physical Exam: Physical Exam Constitutional: Appearance: Normal appearance. HENT: Head: Normocephalic and atraumatic. Mouth/Throat: Mouth: Mucous membranes are moist. Eyes: Extraocular Movements: Extraocular movements intact. Pupils: Pupils are equal, round, and reactive to light. Cardiovascular: Rate and Rhythm: Normal rate and regular rhythm. Pulmonary: Effort: Pulmonary effort is normal. Breath sounds: Normal breath sounds. Abdominal: General: Abdomen is flat. Bowel sounds are normal. Palpations: Abdomen is soft. Musculoskeletal: General: Normal range of motion. Cervical back: Normal range of motion. Skin: General: Skin is warm and dry. Neurological: General: No focal deficit present. Mental Status: He is alert and oriented to person, place, and time. Mental status is at baseline. Psychiatric: Mood and Affect: Mood normal. Behavior: Behavior normal. Thought Content: Thought content normal. Judgment: Judgment normal. Recent testing: Carotid duplex Assessment and Plan: Problem List Bilateral carotid artery occlusion - Primary Current Assessment & Plan He is status post bilateral carotid endarterectomies. Duplex ultrasound shows wide open carotids. Will continue antiplatelet therapy statin and surveillance imaging annually. Faith was seen today for 2 week s/p rt cea and transient ischemic attack involving right internalcarotid . Diagnoses and all orders for this visit: Bilateral carotid artery occlusion Marlys Garcia MD, HOLA, RPVI, FSVS, FACS [facility] This note was created with the assistance of a speech recognition program. While intending to generate a timely document that accurately reflects the content of the visit, no guarantee can be provided that every grammatical or spelling mistake has been or will be identified or corrected. Thank you for your understanding. documented in this encounter[facility] Hospital Discharge instructions Patient Education 01/27/2024 10:50:07 [...] of the testicle and scrotum. Symptoms usually startsuddenly (acute epididymitis). Sometimes epididymitis starts gradually and [...] Follow these instructions at home: Medicines Take sxlt-jhm-bavxixc and prescription medicines only as told by your health care provider. If you were prescribed an antibiotic medicine, take it as told by your health care provider. Do notstop taking the antibiotic even if your condition [...] Ask your health care provider if you shouldwear a scrotal support, such as a jockstrap. [...] provider. Document Revised: 01/01/2022 Document Reviewed: 01/01/2022 [employer] Patient Education 2022 [employer]. Follow Up Care 01/07/2023 11:09:00 With:KATHY HILL, Chintan Mo, URL Address: [address] [id number]- When: Unknown [facility] 08-08-2024 Evaluation + Plan note* Assessment & Plan Note - Marlys Garcia MD - 01/14/2024 10:27 AM EDTAssociated Problem(s): Postop check Carotid duplex US, continue ASA and statin. F/ U in 2- [address] [facility] Miscellaneous Notes* Assessment & Plan Note - Marlys Garcia MD - 01/14/2024 10:27 AM EDTAssociated Problem(s): Postop check Carotid duplex US, continue ASA and statin. F/ U in 2- 3 weeks documented in this encounterOhioHealth Arthur [facility], [facility], Cancer CenterCHORD [facility] [id number] History of Present illness Narrative* Marlys Garcia MD - 01/14/2024 9:40 AM EDT Images from the original note were not included. To: Candace Giron, CUSTOMER SALES REPRESENTATIVE-PROGRAM CONSULTANT HPI: Faith Penn is a 78 y.o. male with Symptomatic high-grade right ICA stenosis status post carotid endarterectomy. He did well from that standpoint. He developed hematuria we stopped the Plavix. That has resolved.. Review of Systems: Review of Systems Constitutional: Negative. HENT: Negative. Respiratory: Negative. Cardiovascular: Negative. Gastrointestinal: Negative. Endocrine: Negative. Genitourinary: Negative. Musculoskeletal: Negative. Skin: Negative. Neurological: Negative. Hematological: Negative. Medications: Current Outpatient Medications on File Prior to Visit Medication Sig Dispense Refill aspirin 81 mg Take 1 tablet (81 mg total) by mouth nightly. donepeziL (ARICEPT) 10 mg tablet Take 1 tablet (10 mg total) by mouth nightly. For memory doxycycline (VIBRAMYCIN) 100 mg capsule Take 1 capsule (100 mg total) by mouth in the morning and 1capsule (100 mg total) before bedtime. FLUoxetine (PROzac) 20 mg capsule Take 1 capsule (20 mg total) by mouth in the morning. Indications: repeated episodes of anxiety. levothyroxine (SYNTHROID, LEVOTHROID) 50 MCG tablet Take 1 tablet (50 mcg total) by mouth in the morning. Indications: a condition with low thyroid hormone levels. losartan (COZAAR) 25 mg tablet Take 1 tablet (25 mg total) by mouth nightly. For HTN melatonin 10 mg tablet extended release Take 20 mg by mouth nightly. QUEtiapine (SEROquel) 50 mg tablet Take by mouth 2 (two) times a day Indications: repeated episodesof anxiety. 100mg in AM and 50mg in PM simvastatin (ZOCOR) 40 mg tablet Take 1 tablet (40 mg total) by mouth nightly Indications: excessive fat in the blood. tamsulosin (FLOMAX) 0.4 mg capsule Take 1 capsule (0.4 mg total) by mouth nightly Indications: enlarged prostate with urination problem. Takes at 7-8pm clopidogreL (PLAVIX) 75 mg tablet Take 1 tablet (75 mg total) by mouth in the morning. (Patient nottaking: Reported on 01/14/2024) 30 tablet 12 No current facility-administered medications on file prior to visit. Past Medical History: Past Medical History: Diagnosis Date Adverse effect of anesthesia confusion after Anger reaction occ can possibly throw things Anxiety Behavioral and psychological symptoms of dementia ([facility]) Benign prostatic hyperplasia with urinary obstruction Urinary tract symptoms Bilateral carotid artery stenosis Bruises easily Carotid stenosis, right Cognitive impairment mild COVID-19 Dementia ([facility]) short term memory loss- per Depression Hematuria, gross Hyperlipemia Hypertension Hypothyroidism Impotence Memory loss Nocturia Poor urinary stream Positive colorectal cancer screening using Cologuard test TIA (transient ischemic attack) 10/30/2023 difficulty with vision and speech lasting 1-2 mins then slept x1 hour...sypmtoms resolved Past Surgical History: Past Surgical History: Procedure Laterality Date ADENOIDECTOMY CAROTID ENDARTERECTOMY Left 06/25/2021 COLONOSCOPY x4 ELBOW ARTHROSCOPY ENDARTERECTOMY CAROTID Right 12/29/2023 Performed by Marlys Garcia MD at [facility] SKIN CANCER EXCISION TONSILLECTOMY Social and Family History: Social History Socioeconomic History Marital status: Spouse name: Not on file Number of children: Not on file Years of education: Not on file Highest education level: Not on file Occupational History Not on file Tobacco Use Smoking status: Former Types: Pipe, Cigars Passive exposure: Never Smokeless tobacco: Never Vaping Use Vaping status: Never Used Substance and Sexual Activity Alcohol use: Not Currently Alcohol/week: 4.0 standard drinks of alcohol Types: 4 Glasses of wine per week Drug use: Never Sexual activity: Defer Other Topics Concern Not on file Social History Narrative Not on file Social Determinants of Health Financial Resource Strain: Low Risk (11/16/2023) Received from [facility] Overall Financial Resource Strain (CARDIA) Difficulty of Paying Living Expenses: Not hard at all Food Insecurity: No Food Insecurity (01/14/2024) Hunger Screening Food Insecurity - Worry: Never True Food Insecurity - Inability: Never True Transportation Needs: No Transportation Needs (12/29/2023) PRAPARE - Transportation Lack of Transportation (Medical): No Lack of Transportation (Non-Medical): No Physical Activity: Insufficiently Active (04/27/2023) Received from [facility] Exercise Vital Sign Days of Exercise per Week: 7 days Minutes of Exercise per Session: 20 min Stress: Not on file Social Connections: Not on file Interpersonal Safety: Not At Risk (12/29/2023) Humiliation, Afraid, Rape, and Kick questionnaire Fear of Current or Ex-Partner: No Emotionally Abused: No Physically Abused: No Sexually Abused: No Housing Instability: Low Risk (12/29/2023) Housing Instability Housing Instability: No Family History Problem Relation Age of Onset Anesthesia problems Neg Hx Recent Labs: Recent and relative labs were reviewed and interpreted and contributed to the assessment and plan below. Vitals: BP 102/60 (BP Site: Right Arm, BP Postition: Sitting, BP CUFF SIZE: M (9-13 inches)) Ht 185.4 cm (6' 1 ) Wt 81.6 kg (180 lb) SpO2 99% BMI 23.75 kg/m Body mass index is 23.75 kg/m . Physical Exam: Physical Exam Constitutional: Appearance: Normal appearance. HENT: Head: Normocephalic and atraumatic. Mouth/Throat: Mouth: Mucous membranes are moist. Eyes: Extraocular Movements: Extraocular movements intact. Pupils: Pupils are equal, round, and reactive to light. Cardiovascular: Rate and Rhythm: Normal rate and regular rhythm. Pulmonary: Effort: Pulmonary effort is normal. Breath sounds: Normal breath sounds. Abdominal: General: Abdomen is flat. Bowel sounds are normal. Palpations: Abdomen is soft. Musculoskeletal: General: Normal range of motion. Cervical back: Normal range of motion. Skin: General: Skin is warm and dry. Neurological: General: No focal deficit present. Mental Status: He is alert and oriented to person, place, and time. Mental status is at baseline. Psychiatric: Mood and Affect: Mood normal. Behavior: Behavior normal. Thought Content: Thought content normal. Judgment: Judgment normal. Recent testing: Assessment and Plan: Problem List Postop check - Primary Current Assessment & Plan Carotid duplex US, continue ASA and statin. F/ U in 2- 3 weeks Relevant Orders Vas carotid duplex bilateral Faith was seen today for p/o rcea 12/28, transient ischemic attack involving right internal carotid and stenosis of right carotid artery. Diagnoses and all orders for this visit: Postop check - Vas carotid duplex bilateral; Future Marlys Garcia MD, HOLA, RPVI, FSVS, FACS [facility] This note was created with the assistance of a speech recognition program. While intending to generate a timely document that accurately reflects the content of the visit, no guarantee can be provided that every grammatical or spelling mistake has been or will be identified or corrected. Thank you for your understanding. documented in this encounterSt. [facility] Hospital Discharge instructions Patient Education 01/11/2024 11:38:30 Scrotal Swelling Scrotal Swelling Scrotal swelling is a condition in which the sac of skin that contains the testicles, blood vessels, and structures that help deliver sperm and semen (scrotum) is enlarged or swollen. This can happenon one or both sides of the scrotum. [...] the limit that you are told, until yourhealth care provider says that it is safe. Avoid sexual activity until your health care provider says that it is safe. General instructions Take zbdk-oev-pkjiuzg and prescription medicines only as told by [...] in mind that a small difference in sizeis normal. You have a persistent dull ache [...] a very red and swollen scrotum, or afever or chills. This information is not intended to replace advice given to you by your health care provider. Make sure you discuss any questions you have with your health care provider. Document Revised: 01/22/2021 Document Reviewed: 01/22/2021 [employer] Patient Education 2022 [employer]. 01/11/2024 11:38:16 Benign Prostatic Hyperplasia Benign Prostatic Hyperplasia Benign prostatic hyperplasia (BPH) is an enlarged prostate gland that is caused by the normal agingprocess. The prostate may get bigger as a man gets older. The condition is not caused by cancer. The prostate is a walnut-sized gland that is involved in the production of semen. It is located in front of the rectum and below the bladder. The bladder stores urine. The urethra carries stored urine ou t of the body. An enlarged prostate can press on the urethra. This can make it harder to pass urine. The buildup of urine in the bladder can cause infection. Back pressure and infection may progress to bladder damage and kidney (renal) failure. What are the causes? This condition is part of the normal aging process. However, not all men develop problems from thiscondition. If the prostate enlarges away from the [...] urethra. Follow these instructions at home: Take matn-xnz-sknscey and prescription medicines only as told by [...] provider. Document Revised: 12/11/2021 Document Reviewed: 12/11/2021 [employer] Patient Education 2022 [employer]. Follow Up Care 01/11/2024 08:12:05 With:DHAVAL Ragsdale APRN, ELIEZER Giraldo, URL Address: When: Unknown Comments:Pt to keep follow up on 01/27/24 w/Dr. Gracia [facility] 07-25-2024 Hospital Discharge instructions Patient Education 12/31/2023 11:06:30 Benign Prostatic Hyperplasia Benign Prostatic Hyperplasia Benign prostatic hyperplasia (BPH) is an enlarged prostate gland that is caused by the normal agingprocess. The prostate may get bigger as a man gets older. The condition is not caused by cancer. The prostate is a walnut-sized gland that is involved in the production of semen. It is located in front of the rectum and below the bladder. The bladder stores urine. The urethra carries stored urine ou t of the body. An enlarged prostate can press on the urethra. This can make it harder to pass urine. The buildup of urine in the bladder can cause infection. Back pressure and infection may progress to bladder damage and kidney (renal) failure. What are the causes? This condition is part of the normal aging process. However, not all men develop problems from thiscondition. If the prostate enlarges away from the [...] urethra. Follow these instructions at home: Take uziu-szl-uqjfrjc and prescription medicines only as told by [...] provider. Document Revised: 12/11/2021 Document Reviewed: 12/11/2021 [employer] Patient Education 2022 [employer] Follow Up Care 12/31/2023 08:38:06 With:KATHY HILL, Chintan Mo, URL Address: [address] [facility] [address] [place] [phone]- When: Unknown Comments:Appointment has already been scheduled [facility] 07-25-2024 Miscellaneous Notes* Telephone Encounter - Josee Allen CMA - 12/31/2023 10:44 AM EDT Patients contacted office stating that patient is bleeding from Valero. After Dr. Garcia spoke with she did confirm that patient does have clear urine. Patient is to D/C plavix and continue baby aspirin and no other blood thinners. is to contact urology (Dr. Gracia) and make appt to address issue. If patient cannot get in with Uro she is to contact office and we will bring him into hospital and have Uro consulted documented in this encounterDel[facility] Moving Off [id number] Telephone encounter Note* Telephone Encounter - Josee Allen CMA - 12/31/2023 10:44 AM EDT Patients contacted office stating that patient is bleeding from Valero. After Dr. Garcia spoke with she did confirm that patient does have clear urine. Patient is to D/C plavix and continue baby aspirin and no other blood thinners. is to contact urology (Dr. Gracia) and make appt to address issue. If patient cannot get in with Uro she is to contact office and we will bring him into hospital and have Uro consulted [facility] [id number] Miscellaneous Notes* Telephone Encounter - Tiffany Armstrong - 12/30/2023 3:17 PM EDT ----- Message from Dr. Kalen Alvarado MD sent at 12/30/2023 1:02 PM EDT ----- This patient was seen in consultation at [facility]. Following hospital discharge he does not require follow-up in our office as he follows with [facility]. Thank you documented in this encounterSt. [facility]07-[facility]24 Telephone encounter Note* Telephone Encounter - Tiffany Armstrong - 12/30/2023 3:17 PM EDT ----- Message from Dr. Kalen Alvarado MD sent at 12/30/2023 1:02 PM EDT ----- This patient was seen in consultation at [facility]. Following hospital discharge he does not require follow-up in our office as he follows with [facility] group. 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 MACHINE TENDER - SHELIA Wayne - 12/30/2023 2:23 PM EDT Occupational Therapy Evaluation Discharge Recommendations OT Recommendations : Home Home Recommendations: 24 hour caregiver support for: (initially for ADL's and IADL's) Post Discharge Therapy Recommendations: None 6 Clicks: Daily Activity Putting on and taking off regular lower body clothing?: A little Bathing (including washing, rinsing, drying)?: A little Toileting, which includes using toilet, bedpan or urinal?: A little Putting on and taking off regular upper body clothing?: A little Taking care of personal grooming such as brushing teeth?: A little Eating meals?: None Scoring Daily Activity Raw Score: 19 CMS G Code Modifier: CK Therapy Plan Need for skilled Occupational Therapy to address deficits in ADL independence and functional mobility due to a status decline resulting from stenosis R carotid artery Pt admitted 12/28 for R endarterectomy due to moderate to high grade R ICA stenosis Urology- traumatic vaelro/clot retention Past Medical History: Diagnosis Date Adverse effect of anesthesia confusion after Anger reaction occ can possibly throw things Anxiety Behavioral and psychological symptoms of dementia ([facility]) Benign prostatic hyperplasia with urinary obstruction Urinary tract symptoms Bilateral carotid artery stenosis Bruises easily Carotid stenosis, right Cognitive impairment mild COVID-19 Dementia ([facility]) short term memory loss- per Depression Hematuria, gross Hyperlipemia Hypertension Hypothyroidism Impotence Memory loss Nocturia Poor urinary stream Positive colorectal cancer screening using Cologuard test TIA (transient ischemic attack) 10/30/2023 difficulty with vision and speech lasting 1-2 mins then slept x1 hour...sypmtoms resolved Past Surgical History: Procedure Laterality Date ADENOIDECTOMY CAROTID ENDARTERECTOMY Left 06/25/2021 COLONOSCOPY x4 ELBOW ARTHROSCOPY ENDARTERECTOMY CAROTID Right 12/29/2023 Performed by Marlys Garcia MD at [facility] SKIN CANCER EXCISION TONSILLECTOMY OT Treatment/Interventions: ADL retraining, Functional transfer training, UE strengthening/ROM, Endurance training, Patient/family training, Equipment eval/education, Balance, Bed mobility, Compensatory technique education, Functional activities OT Frequency: 4-5days/week OT Duration: 01/30/24 Assessment Patient Assessment Therapy Problem List: Decreased ADL status, Decreased balance, Decreased endurance, Decreased high-level ADLs, Decreased mobility, Decreased safe judgement during ADL, Decreased self-care trans, Decreased UE strength Patient Response to Treatment: Tolerated evaluation without adverse reaction Mood/Affect: Appropriate for circumstances Rehab Prognosis: Good, With continued OT status post acute discharge Visit RN Communication: Yes Medical Record Reviewed: Yes OT Type of Visit: Evaluation Precautions Activity: early mobility pass- ok to see per RN Equipment: gait belt, valero Telemetry/Pooling Operator: Yes Oxygen Used: room air Other: high fall risk, h/o dementia, slightly impulsive, s/p endarterectomy, chair alarm Pain Assessment Pain Assessment: No/denies pain Home Living Type of Home: House Home Layout: Two level, Able to live on main level with bedroom/bathroom Stairs to Enter: 4 Hand Rails: Left Stairs in Home: 4 Hand Rails in Home: Right Bathroom Shower/Tub: Tub/shower unit Bathroom Toilet: Raised Bathroom Equipment: Grab bars in shower, Shower chair, Hand-held shower Home Equipment: Rolling walker, Cane, Wheelchair-manual Other : 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 Prior Function Lives With: Spouse Receives Help From: Family Level of Mobility: Independent with ADLs and functional transfers or gait Homemaking Assistance: Independent Other: Pt was independent with ADL's and 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 Hand Dominance: Right Eating Assistance: Independent Grooming Assistance: Standby assist Bathing/Showering Assistance: Standby assist Toilet/Commode Assistance: Standby assist UE Dressing Assistance: Standby assist LE Dressing Assistance: Min assist Footwear Assistance: Min assist Other: donned pt's shoes Home Management - IADL Other: donned pt's shoes Hearing / Speech / Vision Hearing: Within Functional Limits Speech: Within Functional Limits Current Vision: Wears glasses all the time Cognition Overall Cognitive Status: Exceptions to Within Functional Limits Arousal/Alertness: Appropriate responses to stimuli Attention Span: Appears intact Memory: Appears intact Following Commands: Follows one step commands with increased time Safety Judgment: Decreased awareness of need for safety Awareness of Errors: Decreased awareness of errors Insight of Deficits: Decreased awareness of deficits Other: H/o dementia Sensation Overall Sensation Status: Within Functional Limits Bed Mobility Other: Pt seated in chair upon arrival and at end of session with call light in reach Transfers Sit to Stand: Contact guard assist Stand to Sit: Contact guard assist Other: CGA for transfers. Verbal cues for safe hand placement Gait Gait Assistance: Contact guard assist Assistive Device: None Gait Distance: 300 ft Other: Pt completed functional mobility within hallway. No device used. CGA for safety. Pt slightlyimpulsive and moves at a fast pace Balance Balance Evaluation: Exceptions to Functional Limits Sitting Balance: Static: Good Sitting Balance: Dynamic: Good Standing Balance: Static: Fair Standing Balance: Dynamic: Fair Other: No notable LOB RUE Assessment: Within Functional Limits LUE Assessment: Within Functional Limits Activity Tolerance Endurance: Tolerates <30 minutes activity WITHOUT vital sign changes Other: Rest breaks as needed Plan Occupational Therapy Care Plan Occupational Therapy Care Plan (Active) Template: OT - Occupational Therapy Problem: Activity Tolerance Dates: Start: 12/30/23 Disciplines: OT Goal: Tolerate > 30 minutes of activity WITH rest breaks Dates: Start: 12/30/23 Expected End: 01/27/24 Description: Goal Description: Disciplines: OT Problem: Bed Mobility Dates: Start: 12/30/23 Disciplines: OT Goal: Patient will perform bed mobility with Modified [place] Dates: Start: 12/30/23 Expected End: 01/27/24 Description: Goal Description: Disciplines: OT Problem: Functional Mobility Dates: Start: 12/30/23 Disciplines: OT Goal: Patient will perform functional mobility with Modified [place] Dates: Start: 12/30/23 Expected End: 01/27/24 Description: Goal Description: Disciplines: OT Problem: Other (Customize) Dates: Start: 12/30/23 Disciplines: OT Goal: Improve Dates: Start: 12/30/23 Expected End: 01/27/24 Description: Pt will complete ADL tasks with Mod I and use of assistive equipment as needed Disciplines: OT Problem: Standing Balance Dates: Start: 12/30/23 Disciplines: OT Goal: Improve balance to good Dates: Start: 12/30/23 Expected End: 01/27/24 Description: Static Dynamic Disciplines: OT Problem: Strength Dates: Start: 12/30/23 Disciplines: OT Goal: Improve strength Dates: Start: 12/30/23 Expected End: 01/27/24 Description: Pt will show independence in performing BUE HEP for increased strength for completion of ADL's and IADL's. Disciplines: OT Problem: Toilet Transfers Dates: Start: 12/30/23 Disciplines: OT Goal: Patient will perform toilet transfers with Modified [place] Dates: Start: 12/30/23 Expected End: 01/27/24 Description: Goal Description: Disciplines: OT Problem: Transfers Dates: Start: 12/30/23 Disciplines: OT Goal: Patient will perform transfers with Modified [place] Dates: Start: 12/30/23 Expected End: 01/27/24 Description: Goal Description: Disciplines: OT Occupational Therapy Care Plan (Resolved) There are no resolved problems. Principal Problem: Stenosis of right carotid artery [facility] [employer] [id number] Miscellaneous Notes* PT/OT/WIRE DRAWING MACHINE TENDER - SHELIA Wayne - 12/30/2023 2:23 PM EDT Occupational Therapy Evaluation Discharge Recommendations OT Recommendations : Home Home Recommendations: 24 hour caregiver support for: (initially for ADL's and IADL's) Post Discharge Therapy Recommendations: None 6 Clicks: Daily Activity Putting on and taking off regular lower body clothing?: A little Bathing (including washing, rinsing, drying)?: A little Toileting, which includes using toilet, bedpan or urinal?: A little Putting on and taking off regular upper body clothing?: A little Taking care of personal grooming such as brushing teeth?: A little Eating meals?: None Scoring Daily Activity Raw Score: 19 [facility] G Code Modifier: CK Therapy Plan Need for skilled Occupational Therapy to address deficits in ADL independence and functional mobility due to a status decline resulting from stenosis R carotid artery Pt admitted 12/28 for R endarterectomy due to moderate to high grade R ICA stenosis Urology- traumatic valero/clot retention Past Medical History: Diagnosis Date Adverse effect of anesthesia confusion after Anger reaction occ can possibly throw things Anxiety Behavioral and psychological symptoms of [place] Benign prostatic hyperplasia with urinary obstruction Urinary tract symptoms Bilateral carotid artery stenosis Bruises easily Carotid stenosis, right Cognitive impairment mild COVID-19 Dementia [place] short term memory loss- per Depression Hematuria, gross Hyperlipemia Hypertension Hypothyroidism Impotence Memory loss Nocturia Poor urinary stream Positive colorectal cancer screening using Cologuard test TIA (transient ischemic attack) 10/30/2023 difficulty with vision and speech lasting 1-2 mins then slept x1 hour...sypmtoms resolved Past Surgical History: Procedure Laterality Date ADENOIDECTOMY CAROTID ENDARTERECTOMY Left 06/25/2021 COLONOSCOPY x4 ELBOW ARTHROSCOPY ENDARTERECTOMY CAROTID Right 12/29/2023 Performed by Marlys Garcia MD at [facility] SKIN CANCER EXCISION TONSILLECTOMY OT Treatment/Interventions: ADL retraining, Functional transfer training, UE strengthening/ROM, Endurance training, Patient/family training, Equipment eval/education, Balance, Bed mobility, Compensatory technique education, Functional activities OT Frequency: 4-5days/week OT Duration: 01/30/24 Assessment Patient Assessment Therapy Problem List: Decreased ADL status, Decreased balance, Decreased endurance, Decreased high-level ADLs, Decreased mobility, Decreased safe judgement during ADL, Decreased self-care trans, Decreased UE strength Patient Response to Treatment: Tolerated evaluation without adverse reaction Mood/Affect: Appropriate for circumstances Rehab Prognosis: Good, With continued OT status post acute discharge Visit RN Communication: Yes Medical Record Reviewed: Yes OT Type of Visit: Evaluation Precautions Activity: early mobility pass- ok to see per RN Equipment: gait belt, valreo Telemetry/Pooling Operator: Yes Oxygen Used: room air Other: high fall risk, h/o dementia, slightly impulsive, s/p endarterectomy, chair alarm Pain Assessment Pain Assessment: No/denies pain Home Living Type of Home: House Home Layout: Two level, Able to live on main level with bedroom/bathroom Stairs to Enter: 4 Hand Rails: Left Stairs in Home: 4 Hand Rails in Home: Right Bathroom Shower/Tub: Tub/shower unit Bathroom Toilet: Raised Bathroom Equipment: Grab bars in shower, Shower chair, Hand-held shower Home Equipment: Rolling walker, Cane, Wheelchair-manual Other : 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 Prior Function Lives With: Spouse Receives Help From: Family Level of Mobility: Independent with ADLs and functional transfers or gait Homemaking Assistance: Independent Other: Pt was independent with ADL's and 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 Hand Dominance: Right Eating Assistance: Independent Grooming Assistance: Standby assist Bathing/Showering Assistance: Standby assist Toilet/Commode Assistance: Standby assist UE Dressing Assistance: Standby assist LE Dressing Assistance: Min assist Footwear Assistance: Min assist Other: donned pt's shoes Home Management - IADL Other: donned pt's shoes Hearing / Speech / Vision Hearing: Within Functional Limits Speech: Within Functional Limits Current Vision: Wears glasses all the time Cognition Overall Cognitive Status: Exceptions to Within Functional Limits Arousal/Alertness: Appropriate responses to stimuli Attention Span: Appears intact Memory: Appears intact Following Commands: Follows one step commands with increased time Safety Judgment: Decreased awareness of need for safety Awareness of Errors: Decreased awareness of errors Insight of Deficits: Decreased awareness of deficits Other: H/o dementia Sensation Overall Sensation Status: Within Functional Limits Bed Mobility Other: Pt seated in chair upon arrival and at end of session with call light in reach Transfers Sit to Stand: Contact guard assist Stand to Sit: Contact guard assist Other: CGA for transfers. Verbal cues for safe hand placement Gait Gait Assistance: Contact guard assist Assistive Device: None Gait Distance: 300 ft Other: Pt completed functional mobility within hallway. No device used. CGA for safety. Pt slightlyimpulsive and moves at a fast pace Balance Balance Evaluation: Exceptions to Functional Limits Sitting Balance: Static: Good Sitting Balance: Dynamic: Good Standing Balance: Static: Fair Standing Balance: Dynamic: Fair Other: No notable LOB RUE Assessment: Within Functional Limits LUE Assessment: Within Functional Limits Activity Tolerance Endurance: Tolerates <30 minutes activity WITHOUT vital sign changes Other: Rest breaks as needed Plan Occupational Therapy Care Plan Occupational Therapy Care Plan (Active) Template: OT - Occupational Therapy Problem: Activity Tolerance Dates: Start: 12/30/23 Disciplines: OT Goal: Tolerate > 30 minutes of activity WITH rest breaks Dates: Start: 12/30/23 Expected End: 01/27/24 Description: Goal Description: Disciplines: OT Problem: Bed Mobility Dates: Start: 12/30/23 Disciplines: OT Goal: Patient will perform bed mobility with Modified [place] Dates: Start: 12/30/23 Expected End: 01/27/24 Description: Goal Description: Disciplines: OT Problem: Functional Mobility Dates: Start: 12/30/23 Disciplines: OT Goal: Patient will perform functional mobility with Modified [place] Dates: Start: 12/30/23 Expected End: 01/27/24 Description: Goal Description: Disciplines: OT Problem: Other (Customize) Dates: Start: 12/30/23 Disciplines: OT Goal: Improve Dates: Start: 12/30/23 Expected End: 01/27/24 Description: Pt will complete ADL tasks with Mod I and use of assistive equipment as needed Disciplines: OT Problem: Standing Balance Dates: Start: 12/30/23 Disciplines: OT Goal: Improve balance to good Dates: Start: 12/30/23 Expected End: 01/27/24 Description: Static Dynamic Disciplines: OT Problem: Strength Dates: Start: 12/30/23 Disciplines: OT Goal: Improve strength Dates: Start: 12/30/23 Expected End: 01/27/24 Description: Pt will show independence in performing BUE HEP for increased strength for completion of ADL's and IADL's. Disciplines: OT Problem: Toilet Transfers Dates: Start: 12/30/23 Disciplines: OT Goal: Patient will perform toilet transfers with Modified [place] Dates: Start: 12/30/23 Expected End: 01/27/24 Description: Goal Description: Disciplines: OT Problem: Transfers Dates: Start: 12/30/23 Disciplines: OT Goal: Patient will perform transfers with Modified [place] Dates: Start: 12/30/23 Expected End: 01/27/24 Description: Goal Description: Disciplines: OT Occupational Therapy Care Plan (Resolved) There are no resolved problems. Principal Problem: Stenosis of right carotid artery * PT/OT/WIRE DRAWING MACHINE TENDER - Jahaira Darling, PT - 12/30/2023 2:11 PM EDT Physical Therapy Evaluation Discharge Recommendations PT Recommendations: Home Home Recommendations: 24 hour caregiver support for: (assist as needed for safe mobility, ADLs/IADLs) Post Discharge Therapy Recommendations: None 6 Clicks: Basic Mobility Turning from your back to your side while in a flat bed without using bed rails?: A little Moving from lying on your back to sitting on side of flat bed without using bed rails?: A little Moving to and from bed to a chair (including w/c)?: A little Standing up from a chair using your arms (e.g. w/c or bedside chair)?: A little To walk in hospital room?: A little Climbing 3-5 steps with a railing?: A little Scoring 6 Clicks: Basic Mobility Raw Score: 18 [facility] G Code Modifier: CK Therapy Plan Need for skilled Physical Therapy to address deficits in functional mobility due to a status decline resulting from hospitalization due to stenosis of R carotid artery. 78 yo M with symptomatic moderate to high grade R ICA stenosis presented 12/28 for R endarterectomy. Cardio consulted post-op d/t concerns for complete heart block, monitoring. Urology consulted d/t traumatic valero/clot retention. No chief complaint on file. Past Medical History: Diagnosis Date Adverse effect of anesthesia confusion after Anger reaction occ can possibly throw things Anxiety Behavioral and psychological symptoms of dementia ([facility]) Benign prostatic hyperplasia with urinary obstruction Urinary tract symptoms Bilateral carotid artery stenosis Bruises easily Carotid stenosis, right Cognitive impairment mild COVID-19 Dementia ([facility] short term memory loss- per Depression Hematuria, gross Hyperlipemia Hypertension Hypothyroidism Impotence Memory loss Nocturia Poor urinary stream Positive colorectal cancer screening using Cologuard test TIA (transient ischemic attack) 10/30/2023 difficulty with vision and speech lasting 1-2 mins then slept x1 hour...sypmtoms resolved Past Surgical History: Procedure Laterality Date ADENOIDECTOMY CAROTID ENDARTERECTOMY Left 06/25/2021 COLONOSCOPY x4 ELBOW ARTHROSCOPY ENDARTERECTOMY CAROTID Right 12/29/2023 Performed by Marlys Garcia MD at [facility] SKIN CANCER EXCISION TONSILLECTOMY PT Treatment/Interventions: Functional transfer training, LE strengthening/ROM, Endurance training,Patient/family training, Equipment eval/education, Balance, Stair training, Bed mobility, Gait training, Functional activities, Neuromuscular reeducation PT Frequency: 4-5days/week PT Duration: 01/22/24 Patient Response to Treatment: Tolerated evaluation without adverse reaction Assessment Patient Assessment Therapy Problem List: Decreased balance, Decreased endurance, Decreased mobility, Decreased self-care trans, Decreased LE strength Patient Response to Treatment: Tolerated evaluation without adverse reaction Mood/Affect: Appropriate for circumstances Rehab Prognosis: Good, With continued PT status post acute discharge Visit RN Communication: Yes Medical Record Reviewed: Yes PT Type of Visit: Evaluation Precautions Activity: early mobility pass Equipment: gait belt, valero Telemetry/Pooling Operator: Yes Oxygen Used: room air Other: Fall risk, h/o dementia, s/p R endarterectomy Pain Assessment Pain Assessment: No/denies pain Home Living Type of Home: House Home Layout: Two level, Able to live on main level with bedroom/bathroom Stairs to Enter: 4 Hand Rails: Left Stairs in Home: 4 Hand Rails in Home: Right Bathroom Shower/Tub: Tub/shower unit Bathroom Toilet: Raised Bathroom Equipment: Grab bars in shower, Shower chair, Hand-held shower Home Equipment: Rolling walker, Cane, Wheelchair-manual Other : Pt IND with functional mobility prior to admission w/o use of AD. Denies any recent falls. 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 Hand Dominance: Right Hearing / Speech / Vision Hearing: Within Functional Limits Speech: Within Functional Limits Current Vision: Wears glasses all the time Cognition Overall Cognitive Status: Exceptions to Within Functional Limits Arousal/Alertness: Appropriate responses to stimuli Attention Span: Appears intact Memory: Appears intact Following Commands: Follows one step commands with increased time Safety Judgment: Decreased awareness of need for safety Awareness of Errors: Decreased awareness of errors Insight of Deficits: Decreased awareness of deficits Sensation Overall Sensation Status: Within Functional Limits Bed Mobility Other: NT- patient sitting up in chair upon arrival and returns to chair at end of session w/ call light within reach and needs met. Transfers Sit to Stand: Contact guard assist Stand to Sit: Contact guard assist Other: Transfers performed w/o AD. Cues for safety. Initial unsteadiness upon standing requiring CGA for steadying assist. Denies dizziness. Gait Base of Support: Narrow Pattern: R Decreased foot clearance, L Decreased foot clearance Gait Assistance: Contact guard assist Assistive Device: None Gait Distance: 300 ft Other: Patient ambulates without AD within hallways of facility. Initial unsteadiness, but improves. Cues for safety. Balance Sitting Balance: Static: Good Sitting Balance: Dynamic: Good Standing Balance: Static: Fair Standing Balance: Dynamic: Fair Other: Standing balance w/o use of AD. RUE Assessment: (See OT eval) LUE Assessment: (See OT eval) RLE Assessment: Within Functional Limits LLE Assessment: Within Functional Limits Activity Tolerance Endurance: Tolerates <30 minutes activity WITHOUT vital sign changes Other: Activity limtied by fatigue. Plan Physical Therapy Care Plan Physical Therapy Care Plan (Active) Template: PT - Physical Therapy Problem: Activity Tolerance Dates: Start: 12/30/23 Disciplines: PT Goal: Tolerate > 30 minutes of activity WITH rest breaks Dates: Start: 12/30/23 Expected End: 01/22/24 Description: Goal Description: For improved ability to complete normal daily and recreational tasks Disciplines: PT Problem: Gait Dates: Start: 12/30/23 Disciplines: PT Goal: Patient will perform gait Independently Dates: Start: 12/30/23 Expected End: 01/22/24 Description: LRAD, 400 ft For improved ability to safely ambulate Disciplines: PT Problem: Stairs/Curb Dates: Start: 12/30/23 Disciplines: PT Goal: Patient will perform stairs/curb with Modified [place] Dates: Start: 12/30/23 Expected End: 01/22/24 Description: 4 L HR + 4 R HR For patient to be able to safely enter/exit home Disciplines: PT Problem: Standing Balance Dates: Start: 12/30/23 Disciplines: PT Goal: Improve balance to normal Dates: Start: 12/30/23 Expected End: 01/22/24 Description: Static Dynamic: for decrease risk for LOB with functional mobility Disciplines: PT Problem: Transfers Dates: Start: 12/30/23 Disciplines: PT Goal: Patient will perform transfers Independently Dates: Start: 12/30/23 Expected End: 01/22/24 Description: Goal Description: for improved IND and decrease risk for LOB with functional mobility Disciplines: PT Physical Therapy Care Plan (Resolved) There are no resolved problems. Principal Problem: Stenosis of right carotid artery * Plan of Care - Kari Carlos RN - 12/30/2023 8:49 AM EDT Problem: Neurological Deficit Goal: Neurological status is stable or improving Description: Patient's goal is: INTERVENTIONS 1. Complete Neurological assessment as indicated/ordered 2. Initiate measures to prevent increased intracranial pressure 3. Monitor and assess patient's level of consciousness, motor function, sensory function, and levelof assistance needed for ADLs 4. Monitor and report changes from baseline 5. Maintain blood pressure and fluid volume within ordered parameters to optimize cerebral perfusion and minimize risk of hemorrhage 6. Monitor labs and diagnostic tests 7. Administer anti-seizure medications as ordered 8. Maintain airway, patient safety and administer oxygen as ordered 9. Monitor patient for seizure activity, document and report duration and description of seizure toLIP 10. If seizure occurs, turn patient to side and suction secretions as needed 11. Reorient patient post seizure 12. Seizure pads on all 4 side rails 13. Instruct patient/family to notify RN of any seizure activity 14. Instruct patient/family to call for assistance with activity based on assessment 15. Utilize bleeding precautions if thrombolytic given Outcome: Progressing Note: Evaluation of progress towards goal: Faith is alert and oriented x2-3. He is forgetful, states he is normally confused after anesthesia and has baseline dementia with short term memory loss. Problem: Activity Intolerance/Impaired Mobility Goal: Mobility/activity is maintained at optimum level for patient Description: Patient's goal is: INTERVENTIONS 1. Assess and monitor patient barriers to mobility and need for assistive/adaptive devices 2. Assess patient's emotional response to limitations 3. Collaborate with interdisciplinary teams and initiate plans and interventions as ordered 4. Encourage independent activity per tolerance 5. Maintain proper body alignment 6. Perform active/passive ROM as tolerated/ordered 7. Coordinate activities to conserve energy 8. Reposition patient 9. Ensure adequate rest/sleep time Outcome: Progressing Note: Evaluation of progress towards goal: Faith is up with assistance with a walker. Will continue to advance mobility. Problem: Communication Impairment Goal: Ability to express needs and understand communication Description: INTERVENTIONS 1. Assess patient's communication skills and ability to understand information 2. Provide alternate method of communication if needed i.e. ipad, sign board, pen/paper 3. Collaborate with Speech Therapy to develop effective communication strategies 4. Include patient/patient dairy supplies sales representative in decisions related to communication Outcome: Progressing Note: Evaluation of progress towards goal: Faith is able to express his needs and understand communication. He is forgetful. Problem: Potential for Aspiration Goal: Patient's risk of aspiration is minimized Description: INTERVENTIONS 1. Assess and monitor vital signs, respiratory status, and labs (WBC) 2. Monitor for signs of aspiration (tachypnea, cough, rales, wheezing, cyanosis, fever) 3. Assess and monitor patient's ability to swallow 4. Place patient up in chair to eat if possible 5. Elevate head of bed 90 degrees to eat if unable to get patient up into chair 6. Supervise patient during oral intake 7. Instruct patient to take small bites 8. Instruct patient to take small single sips when taking liquids 9. Follow patient-specific strategies generated by speech pathologist 10. Complete bedside swallow screen if appropriate and take actions as indicated. 11. Administer prescribed medications and monitor effects Outcome: Progressing Note: Evaluation of progress towards goal: Faith passed his bedside swallow assessment and is tolerating liquids. Problem: Anxiety Goal: Anxiety is at manageable level Description: Patient's goal is: INTERVENTIONS 1. Assess and monitor patient's anxiety level 2. Monitor for signs and symptoms of anxiety both physical and emotional (heart palpitations, chestpain, shortness of breath, headaches, nausea, feeling jumpy, restlessness, irritable, apprehensive) 3. Reorient/orient patient to unit/surroundings 4. Explain treatment plan 5. Explain tests/procedures prior to initiation 6. Encourage participation in care 7. Encourage verbalization of concerns/fears 8. Assess coping mechanisms 9. Assist in developing anxiety-reducing skills 10. Administer complimentary therapies 11. Manage patient's environment 12. Limit or eliminate stimulants such as caffeine and nicotine 13. Collaborate with ancillary departments 14. Include patient/patient dairy supplies sales representative in decisions related to anxiety Outcome: Progressing Note: Evaluation of progress towards goal: Faith is mildly anxious and occasionally attempts to get out of bed on his own. He is a fall risk and has a bed/chair alarm working. Problem: Potential for Compromised Skin Integrity Goal: Skin integrity is maintained or improved Description: Patient's goal is: INTERVENTIONS 1. Perform initial skin assessment on admission and as needed 2. Turn patient every 2 hours and PRN 3. Relieve pressure to bony prominences 4. Avoid shearing 5. Keep skin clean and dry 6. Alternate a full bath with partial baths for elderly 7. Apply lotion/moisturizer on skin 8. Monitor patient's hygiene practices 9. Float heels 10. Collaborate with interdisciplinary team and initiate plans and interventions as needed Outcome: Progressing Note: Evaluation of progress towards goal: Faith has no new signs of skin breakdown at this time.He is able to turn and reposition himself as needed. Foam dressing in place on coccyx. Goal: Patient's nutritional intake is adequate Description: Patient's goal is: INTERVENTIONS 1. Assess and monitor food intake and supplements, patient food preferences, nausea, vomiting, labs, oral cavity (gums, teeth, tongue, mucosa), proper denture fit, and cultural beliefs 2. Monitor for signs of hypoglycemia and hyperglycemia 3. Collaborate with interdisciplinary team and initiate plan and interventions as ordered 4. Monitor patient's weight 5. Assist patient with meals/food selection 6. Assist patient with eating 7. Allow adequate time for meals 8. Provide pleasant environment during mealtime 9. Increase social contact during mealtimes 10. Plan activities to conserve energy 11. Encourage/perform oral hygiene as appropriate 12. Encourage patient to take dietary supplement as ordered 13. Collaborate with clinical toilet products molder 14. Include patient/ patient's dairy supplies sales representative in decisions related to nutrition Outcome: Progressing Note: Evaluation of progress towards goal: Faith is maintaining adequate nutrition and is tolerating clear liquids at this timee, will continue to advance as tolerated. Problem: Self Care Deficit Goal: Return ADL status to a safe level of function Description: Patient's goal is: INTERVENTIONS 1. Administer medication as ordered 2. Assess ADL deficits and provide assistive devices as needed 3. Obtain PT/OT consults as needed 4. Assist and instruct patient to increase activity and self care as tolerated Outcome: Progressing Note: Evaluation of progress towards goal: Faith has BLE weakness and needs assistance with mobility. He is slightly confused with baseline dementia. Problem: Safety Goal: Patient will be injury free during hospitalization Description: INTERVENTIONS: 1. Assess patient's risk for falls and implement fall prevention plan of care per policy 2. Provide and maintain a safe environment 3. Proper use of double Identifiers 4. Medication administration using the 5 rights 5. Hand hygiene 6. Specimens are labeled at the bedside 7. Instruct patient/ patient dairy supplies sales representative about use of safety devices 8. Include patient/ patient dairy supplies sales representative in decisions related to safety Outcome: Progressing Note: Evaluation of progress towards goal: Faith remains free from injury at this time. All linesand tubes intact and in place. Will continue to monitor. Bed/chair alarm on and working. Problem: Infection Goal: Absence of infection during hospitalization Description: Interventions: 1. Assess and monitor for signs and symptoms of infection 2. Monitor lab/diagnostic results 3. Monitor all insertion sites i.e., indwelling lines, tubes and drains 4. Monitor endotracheal (as able) and nasal secretions for changes in amount and color 5. Administer medications as ordered 6. Instruct and encourage patient and family to use good hand hygiene technique 7. Identify and instruct patient/patient dairy supplies sales representative in use of appropriate isolation precautionsfor identified infection/symptoms 8. Provide and discuss with patient/patient dairy supplies sales representative on educational MDRO sheet 9. Encourage and monitor nutritional status daily and consult toilet products molder if indicated 10. Implement neutropenic guidelines as needed 11. Review exposure to history of communicable disease and recent travel history on admission 12. Encourage annual influenza vaccine 13. Encourage pneumonia vaccine Outcome: Progressing Note: Evaluation of progress towards goal: Faith remains afebrile with no signs of infection at this time. Will continue to monitor. Problem: Knowledge Deficit Goal: Patient/patient dairy supplies sales representative demonstrates understanding of disease process, treatment plan,medications, and discharge instructions Description: INTERVENTIONS 1. Complete learning assessment and assess knowledge base 2. Provide teaching at level of understanding 3. Provide teaching via preferred learning method(s) Outcome: Progressing Note: Evaluation of progress towards goal: Faith and his , Maria Alejandra, are updated on POC and questions/concerns have been addressed by care team. Will continue to address. Problem: Discharge Planning Goal: Discharge to post-acute care, other facility, or home with appropriate resources Description: Patient's goal is: INTERVENTIONS 1. Conduct assessment to determine patient/family and health care team treatment goals, and need for post-acute services based on payer coverage, community resources, and patient preferences, and barriers to discharge 2. Coordinate with Social work, Care Navigation, and Utilization Review to arrange appropriate level of services according to patient's needs based on patient preference and payer coverage in collaboration with the physician and health care team 3. Address psychosocial, clinical, and financial barriers to discharge as identified in assessment in conjunction with the patient/family and health care team 4. Consult appropriate ancillary services (i.e.. PT/OT/ST, etc) as needed 5. Communicate with and update the patient/family, physician, and health care team regarding progress on the discharge plan 6. Identify discharge learning needs (meds, wound care, etc). 7. Arrange for needed discharge transportation as appropriate Outcome: Progressing Note: Evaluation of progress towards goal: Discharge planning is progressing during Faith's stay.He is not appropriate for discharge at this time. Will continue to collaborate with care team to progress towards discharge. Problem: Moderate - High Risk Fall Score Description: Galaviz Fall Score of =/> 25 or indicated by [facility] Assessment Goal: Patient should be free from fall Description: Interventions: 1. [place] to environment 2. Hourly rounds addressing the 4 P's (Pain, Positioning, Possessions, Potty) 3. Clear area of hazards (spills, clutter, electrical cords, unnecessary equipment) 4. Place equipment (bed & TV controls, call light, phone, urinal) within reach 5. Encourage patient to wear glasses and hearing aides as appropriate 6. Maintain bed in lowest position 7. Lock wheels on bed/wheelchair 8. Provide adequate lighting, including night light 9. Assess need for additional bedding, food/fluids, pain med's prior to sleep/routinely 10. Provide gripper slippers or personal non-skid footwear 11. Teach patient and patient dairy supplies sales representative to maintain environment for safety and engage in all aspects of fall prevention program 12. Remind patient to call for help before getting out of bed 13. Initiate bed/chair/exit alarms supportive devices as appropriate, (chair wedge, no-skid floor mat, raised edge mattress, hip protectors) 14. Locate patient bed assignment for optimal visualization 15. Evaluate and identify Safe Patient Handling Equipment needs 16. Provide supervision when out of bed or chair 17. Utilize gait belt as needed to assist with ambulation 18. Place adaptive equipment (cane, walker) within reach 19. Request patient dairy supplies sales representative bring adaptive equipment/mobility aids from home or obtain and provide as needed 20. Consult pharmacy regarding effects of med's affecting mobility, cognition, and alternatives 21. Obtain physician order for PT if risk factors associated with mobility are present 22. Obtain physician order for OT as appropriate 23. Utilize diversional activities 24. Educate patient and patient dairy supplies sales representative how to maintain a safe environment during visitationtimes (notify nurse prior to leaving bedside) 25. Consider appropriateness of medical or non-medical case manager 26. Set up voiding schedule as appropriate (every 2 hours) Outcome: Progressing Note: Evaluation of progress towards goal: Faith remains free from falls at this time. All lines and tubes intact and in place. Will continue to monitor. Bed/chair alarm on and working. Problem: Pain Goal: Patient goal is pain score less than 4, able to rest, and participant in treatment plan as appropriate Description: INTERVENTIONS: 1. Encourage patient or legal dairy supplies sales representative to report early pain and ask for pain medicine when needed 2. Assess pain using appropriate pain scale and include the scale used when documenting 3. Administer analgesics based on type and severity of pain and evaluate response within appropriate time frame 4. Implement non-pharmacological measures as appropriate and evaluate response 5. Consider cultural and social influences on pain and pain management 6. Notify LIP if interventions ineffective or patient reports new pain 7. Monitor vital signs including pulse ox, end-tidal CO2 based on pain intervention 8. Reassess pain per policy 9. Teach patient or legal dairy supplies sales representative interventions for comforting Outcome: Adequate for Discharge Note: Evaluation of progress towards goal: Faith denies any pain at this time. Will continue to monitor. * Plan of Care - Stefania Cruz RN - 12/30/2023 1:29 AM EDT Problem: Potential for Compromised Skin Integrity Goal: Skin integrity is maintained or improved Description: Patient's goal is: INTERVENTIONS 1. Perform initial skin assessment on admission and as needed 2. Turn patient every 2 hours and PRN 3. Relieve pressure to bony prominences 4. Avoid shearing 5. Keep skin clean and dry 6. Alternate a full bath with partial baths for elderly 7. Apply lotion/moisturizer on skin 8. Monitor patient's hygiene practices 9. Float heels 10. Collaborate with interdisciplinary team and initiate plans and interventions as needed Outcome: Progressing Note: Evaluation of progress towards goal: Faith's skin integrity is maintained at this time. [place] is clean, dry, and intact. Will continue to monitor. Problem: Pain Goal: Patient goal is pain score less than 4, able to rest, and participant in treatment plan as appropriate Description: INTERVENTIONS: 1. Encourage patient or legal dairy supplies sales representative to report early pain and ask for pain medicine when needed 2. Assess pain using appropriate pain scale and include the scale used when documenting 3. Administer analgesics based on type and severity of pain and evaluate response within appropriate time frame 4. Implement non-pharmacological measures as appropriate and evaluate response 5. Consider cultural and social influences on pain and pain management 6. Notify LIP if interventions ineffective or patient reports new pain 7. Monitor vital signs including pulse ox, end-tidal CO2 based on pain intervention 8. Reassess pain per policy 9. Teach patient or legal dairy supplies sales representative interventions for comforting Outcome: Progressing Note: Evaluation of progress towards goal: Faith denies any pain at this time. Will continue to assess and treat as appropriate. Problem: Infection Goal: Absence of infection during hospitalization Description: Interventions: 1. Assess and monitor for signs and symptoms of infection 2. Monitor lab/diagnostic results 3. Monitor all insertion sites i.e., indwelling lines, tubes and drains 4. Monitor endotracheal (as able) and nasal secretions for changes in amount and color 5. Administer medications as ordered 6. Instruct and encourage patient and family to use good hand hygiene technique 7. Identify and instruct patient/patient dairy supplies sales representative in use of appropriate isolation precautionsfor identified infection/symptoms 8. Provide and discuss with patient/patient dairy supplies sales representative on educational MDRO sheet 9. Encourage and monitor nutritional status daily and consult toilet products molder if indicated 10. Implement neutropenic guidelines as needed 11. Review exposure to history of communicable disease and recent travel history on admission 12. Encourage annual influenza vaccine 13. Encourage pneumonia vaccine Outcome: Progressing Note: Evaluation of progress towards goal: Faith is infection free at this time. He is showing nosigns or symptoms of infection. Will continue to monitor. Problem: Moderate - High Risk Fall Score Description: Galaviz Fall Score of =/> 25 or indicated by [facility] Assessment Goal: Patient should be free from fall Description: Interventions: 1. [place] to environment 2. Hourly rounds addressing the 4 P's (Pain, Positioning, Possessions, Potty) 3. Clear area of hazards (spills, clutter, electrical cords, unnecessary equipment) 4. Place equipment (bed & TV controls, call light, phone, urinal) within reach 5. Encourage patient to wear glasses and hearing aides as appropriate 6. Maintain bed in lowest position 7. Lock wheels on bed/wheelchair 8. Provide adequate lighting, including night light 9. Assess need for additional bedding, food/fluids, pain med's prior to sleep/routinely 10. Provide gripper slippers or personal non-skid footwear 11. Teach patient and patient dairy supplies sales representative to maintain environment for safety and engage in all aspects of fall prevention program 12. Remind patient to call for help before getting out of bed 13. Initiate bed/chair/exit alarms supportive devices as appropriate, (chair wedge, no-skid floor mat, raised edge mattress, hip protectors) 14. Locate patient bed assignment for optimal visualization 15. Evaluate and identify Safe Patient Handling Equipment needs 16. Provide supervision when out of bed or chair 17. Utilize gait belt as needed to assist with ambulation 18. Place adaptive equipment (cane, walker) within reach 19. Request patient dairy supplies sales representative bring adaptive equipment/mobility aids from home or obtain and provide as needed 20. Consult pharmacy regarding effects of med's affecting mobility, cognition, and alternatives 21. Obtain physician order for PT if risk factors associated with mobility are present 22. Obtain physician order for OT as appropriate 23. Utilize diversional activities 24. Educate patient and patient dairy supplies sales representative how to maintain a safe environment during visitationtimes (notify nurse prior to leaving bedside) 25. Consider appropriateness of medical or non-medical case manager 26. Set up voiding schedule as appropriate (every 2 hours) Outcome: Progressing Note: Evaluation of progress towards goal: Faith is free from falls at this time. His bed is in the lowest position, his call light is within reach, and his bed alarm is on. Will continue to assess. * Op Note - Анна Turner MD - 12/29/2023 8:35 AM EDT Images from the original note were not included. [facility] [place] V[facility] Service Operative Note DATE OF PROCEDURE: 12/29/2023 PATIENT NAME: Faith Penn SURGEON: Surgeons and Role: * Marlys Garcia MD - Primary ASSISTANTS: Dr. Анна Turner, Vascular Surgery Fellow STAFF: Steel Wool Machine Operator Primary: Danny Salgado RN Scrub Person: ST Margie Fellow: Анна Turner MD Scrub Orientee: Alina Milan RN PRE-OP DIAGNOSIS: Symptomatic right carotid artery stenosis POST-OP DIAGNOSIS: As above PROCEDURE: right carotid endarterectomy w/ patch angioplasty ANESTHESIA: GETA EBL: 50 mL FLUIDS: 1200 mL crystalloid COMPLICATIONS: None CONDITION: good WOUND CLASS: 1 ADDITIONS (Drains, Specimens, Implants): Drains: * No LDAs found * Specimens: * No specimens in log * Implants: Implant Name Type Inv. Item Serial No. Manager Credit Collections Lot No. LRB No. Used Action PATCH CV 8X.8CM N-PYRG TPR END PHOTOFIX DECELLULARIZED BVN RPL [id number] - [id number] Graft PATCH CV 8X.8CM N-PYRG TPR END PHOTOFIX DECELLULARIZED BVN RPL [id number] [facility] [id number] Right 1 Implanted HISTORY: The patient is a 78 year old male with Symptomatic right carotid artery stenosis (approx 50% per CTA). Management options were discussed and patient elected to pursue right carotid endarterectomy. CONSENT: The planned procedure was explained in detail including discussion of all associated risks/benefits. Alternative options were also discussed in depth. Risks including pain, bleeding/hematoma, SSI/abscess, damage to surrounding tissues, nerve injury, cardiopulmonary complications, renal complications, CVA, and were described. All questions and concerns were addressed and informed consent wasobtained, witnessed, and placed in the chart. The decision was made to proceed with intervention asplanned. PROCEDURE: The patient was brought to the operative suite and placed in the supine position. A time out was completed confirming the correct patient, proper position, and procedure to be performed. General anesthesia was induced. A shoulder roll was placed. Both arms were tucked and care was taken to pad all p ressure points. A Valero catheter was placed. The patient was then prepped and draped in the standard sterile fashion. Pre-operative ancef was administered. The right neck was evaluated and a vertical incision was planned along the anterior border of the right SCM muscle. A longitudinal skin incision was made using a #15 scalpel and deepened through the dermis and subcutaneous tissue using electrocautery. The platysma was then encountered and divided using electrocautery allowing for identification of the sternocleidomastoid muscle and mobilized along its medial border and reflected laterally. Self-retaining Weitlaner retractors were then placed toaid in exposure. The internal jugular vein was identified and sharply skeletonized. Several crossing venous branches were ligated using 3-0 and 4-0 silk and divided. The internal jugular vein was retracted laterally exposing the right common carotid artery. The common carotid and internal/external carotid artery bifurcation were sharply dissected; this was difficult due to adherent fibrotic tissue between the arteries and surrounding tissues. The internal carotid artery was then dissected distally along its length demonstrating a high bifurcation. Care was taken to dissect several crossing venous branches distally which were highly adherent to the vessel. Control of all small venous using sources was obtained using combination of silk ties and hemostatic clips. Next, the internal carotid artery was mobilized along its length and the proximal external carotid artery was mobilized immediately distal to the bifurcation. Proximal and distal control of the internal carotid artery and common carotid artery was obtained using vessel loops. Careful attention was paid to preserve the vagus and hypoglossal nerves during dissection. Intravenous heparin was then administered and given systemic ally to allow adequate time to circulate prior to arterial occlusion. The internal carotid artery, external carotid artery and common carotid artery were occluded, respectively. Next, a longitudinal arteriotomy was made along the common carotid artery and extended into the internal carotid artery beyond the bifurcation using Araujo scissors. The patient was noted to have a focal area of calcified plaque identified at the carotid bulb extending into the internal carotid artery. A Sundt shunt was inserted into the internal carotid artery and back bleeding was noted to be brisk. The shunt was secured with a clamp distally and the free end of the shunt was then inserted into the common carotid artery and secured with a clamp. Total clamp time was approx 2 minutes. Flow within the shunt was confirmed with a Doppler. Next, the right internal carotid artery was inspected and a large plaque was identified at the distal common carotid artery and internal carotid and common carotid artery bifurcation with extension into the internal carotid artery The endarterectomy plane was developed using a [place] elevator. The plaque was feathered distally into the ICA past the posterior tongue of the plaque and was sharply transected. The endarterectomy plane was then further developed proximally using the [place] elevator. The plaque was elevated and transected proximally completing the right carotid artery endarterectomy.Eversion endarterectomy was then completed at the right ECA. All plaque was removed and sent to pathology for evaluation. All small pieces of plaque tissue were removed from the endarterectomy site. Copious irrigation w/ heparinized saline solution was used to clean the site. Patch angioplasty was then completed using bovine pericardial patch which was sutured in place using 6-0 Prolene x 2 in the standard circumferential running fashion. Immediately prior to completion of the suture line, the shunt was removed and the vessels were allowed to forward and back bleed. The area was flushed againwith heparinized saline solution. The suture line was then completed. Flow was restored to the external carotid artery followed by the internal carotid artery after several systolic beats. Total clamp time after removal of shunt and prior to synagogue of flow was approximately 3 mins. Flow in thedistal internal carotid was confirmed with Doppler. Hemostasis ensured using electrocautery. The incision was then closed in layers.The platysma was re-approximated using 3-0 Vicryl in running fashion. The skin was closed w/ 4-0 Monocryl in the standard running subcuticular fashion. Steri strips were. All sponge and instrument counts were correct at the end of the procedure. The patient tolerated the procedure well. was awakened from anesthesia, had no gross neuro deficits, and was transported to SICU in stable condition. Dr. Garcia was present for the entire procedure. Associated attestation - Marlys Garcia MD - 12/29/2023 11:38 AM EDT I was present and performed all the critical portions of the procedure, performed structured guidance at appropriate times, and was always immediately available. Marlys Garcia MD, [facility] Vascular Surgery * Brief Op Note - Анна Turner MD - 12/29/2023 8:35 AM EDT Images from the original note were not included. [facility] Vascular Service Brief Op Note NAME: Faith Penn : 1945 PROCEDURE DATE: 12/29/2023 SURGEON: Surgeons and Role: * Marlys Garcia MD - Primary ASSISTANTS: Dr. Анна Turner, Vascular Surgery Fellow STAFF: Steel Wool Machine Operator Primary: Danny Salgado RN Scrub Person: ST Margie Fellow: Анна Turner MD Scrub Orientee: Alina Milan RN PRE-OP DIAGNOSIS: CAROTID STENOSIS RIGHT POST-OP DIAGNOSIS: * No Diagnosis Codes entered * PROCEDURE DETAILS: Procedure(s): ENDARTERECTOMY CAROTID (Right) - Wound Class: Clean - Incision Closure: Deep and Superficial Layers ANESTHESIA TYPE: General * No Diagnosis Codes entered * COMPLICATIONS: none ADDITIONS (Drains, Specimens, Implants): Drains: * No LDAs found * Specimens: * No specimens in log * Implants: Implant Name Type Inv. Item Serial No. Manager Credit Collections Lot No. LRB No. Used Action PATCH CV 8X.8CM N-PYRG TPR END PHOTOFIX DECELLULARIZED BVN RPL [id number] - [id number] Graft PATCH CV 8X.8CM N-PYRG TPR END PHOTOFIX DECELLULARIZED BVN RPL [id number] [employer] [id number] Right 1 Implanted ESTIMATED BLOOD LOSS: 50 mL CONDITION: good WOUND CLASS: clean FINDINGS: Focal stenosis See dictated procedure report for full details. Dr. Анна Turner Vascular Surgery Fellow 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 COVID-19 11/12/2023 Positive colorectal cancer screening using Cologuard test 11/12/2023 Cerebrovascular accident (CVA) due to stenosis of right carotid artery ([facility]) 11/12/2023 Transient ischemic attack involving right internal carotid artery 11/12/2023 Benign prostatic hyperplasia with urinary obstruction 08/04/2023 Gross hematuria 08/04/2023 Nocturia 08/04/2023 Poor urinary stream 08/04/2023 Bilateral carotid artery occlusion 04/07/2023 Carotid stenosis, bilateral 04/07/2023 Major depressive disorder, recurrent, moderate ([facility] 10/20/2022 Carotid artery stenosis 04/11/2021 HTN (hypertension) 11/11/2012 Hyperlipidemia 11/11/2012 Past Medical History: Diagnosis Date Adverse effect of anesthesia confusion after Anger reaction occ can possibly throw things Anxiety Behavioral and psychological symptoms of dementia [place] Benign prostatic hyperplasia with urinary obstruction Urinary tract symptoms Bilateral carotid artery stenosis Bruises easily Carotid stenosis, right Cognitive impairment mild COVID-19 Dementia ([facility] short term memory loss- per Depression Hematuria, gross Hyperlipemia Hypertension Hypothyroidism Impotence Memory loss Nocturia Poor urinary stream Positive colorectal cancer screening using Cologuard test TIA (transient ischemic attack) 10/30/2023 difficulty with vision and speech lasting 1-2 mins then slept x1 hour...sypmtoms resolved The patient was seen and examined on day of discharge and this discharge summary is in conjunction with any daily progress note from day of discharge. Code Status: Code Status Information Code Status Not on file Summary of Hospital Course: Faith Penn is a 78 y.o. male who status post right carotid endarterectomy with patch angioplasty performed by Dr. Garcia yesterday. The above is only intended to summarize the hospital course. Please see complete medical record forfurther details. Consults: Cardiology for suspicion of heart block. Urology consulted for traumatic Valero and blood clot retention Significant Diagnostic Studies: Echo congenital limited W/O contrast Result Date: 12/02/2023 Narrative: Left Ventricle: Normal left ventricular systolic function with a visually estimated EF of 50 - 55%. Left ventricle size is normal. Moderatel- severe LVH with diastolic dysfunction. Right Ventricle: Right [...] Ventricle Normal left ventricular systolic function with avisually estimated EF of 50 - 55%. Left [...] Doppler was performed. No contrast was given. Treatments: As noted above Disposition: Discharge home to self-care. Discharge Condition: good. Discharge Instructions: Take all medications as prescribed, keep all follow-up appointments Follow Up: cheduled Outpatient Follow Up: Future Appointments Date Time Provider Department Center 01/14/2024 8:30 AM MD TERESA Hwang None Follow-up Information Candace Giron, CUSTOMER SALES REPRESENTATIVE-PROGRAM CONSULTANT . Specialty: Family Medicine Contact information: [address] [id number] Scheduled Appointments Jan 14, 2024 8:30 AM (Arrive by 8:15 AM) POST OPERATION VISIT with Marlys Garcia MD [facility] (--) [address] [facility] [phone] At the time of your visit please be aware of the following COVID-19 information: If you develop a new cough, fever, or shortness of breath, please call before your appointment. Please plan to arrive at least 15 minutes earlier than your appointment time as screening and registration may take longer than anticipated. Please consider the [employer] eCheck-in to pre-register and make your co-payment before your visit. This will reduce your registration time. Please be aware that the [facility] may require you to wear a mask. It will not be unusual if you find that masking is required in some locations and not required in other locations. The determination is made based on the amount of COVID transmission and infection rate in the community where the facility is located. Please be prepared to wear a mask if the facility you are visiting requires masking. Masks are available upon entry into the facility; however, it is best to bring your own mask and put it on before entering the facility. If wearing a mask is not possible due to an underlying health condition, please work with your care team on an alternate plan before your scheduled appointment. With primary care provider, JONN Tracy, as needed Discharge Medications: Medication List CONTINUE taking these medications Instructions Last Dose Given Next Dose Due aspirin 81 mg Take 1 tablet (81 mg total) by mouth nightly. clopidogreL 75 mg tablet Commonly known as: PLAVIX Take 1 tablet (75 mg total) by mouth in the morning. donepeziL 10 mg tablet Commonly known as: ARICEPT Take 1 tablet (10 mg total) by mouth nightly. For memory FLUoxetine 20 mg capsule Commonly known as: PROzac Take 1 capsule (20 mg total) by mouth in the morning. Indications: repeated episodes of anxiety. levothyroxine 50 MCG tablet Commonly known as: SYNTHROID, LEVOTHROID Take 1 tablet (50 mcg total) by mouth in the morning. Indications: a condition with low thyroid hormone levels. losartan 25 mg tablet Commonly known as: COZAAR Take 1 tablet (25 mg total) by mouth nightly. For HTN melatonin 10 mg tablet extended release Take 20 mg by mouth nightly. QUEtiapine 50 mg tablet Commonly known as: SEROquel Take by mouth 2 (two) times a day Indications: repeated episodes of anxiety. 100mg in AM and 50mg in PM simvastatin 40 mg tablet Commonly known as: ZOCOR Take 1 tablet (40 mg total) by mouth nightly Indications: excessive fat in the blood. tamsulosin 0.4 mg capsule Commonly known as: FLOMAX Take 1 capsule (0.4 mg total) by mouth nightly Indications: enlarged prostate with urination problem. Takes at 7-8pm Discharge Activity Level: As tolerated Discharge Diet: Regular diet Physical Exam at Discharge He was seen at bedside no acute distress. Incision is well approximated dry and intact. He is ambulating and is tolerating advanced regular diet. Urology is recommending he go home with the Valero andleg bag. And to follow up with Urology after discharge. PT/OT evaluated in today for discharge recommendations and recommended to be discharged to home with self-care. Time Spent on discharge is more than 30 minutes in the examination, evaluation, counseling and review of medications and discharge plan. Nicholson 12/30/23 1428 JONN Nicholson 12/30/23 1447 [facility]* PT/OT/WIRE DRAWING MACHINE TENDER - Jahaira Darling, PT - 12/30/2023 2:11 PM EDT Physical Therapy Evaluation Discharge Recommendations PT Recommendations: Home Home Recommendations: 24 hour caregiver support for: (assist as needed for safe mobility, ADLs/IADLs) Post Discharge Therapy Recommendations: None 6 Clicks: Basic Mobility Turning from your back to your side while in a flat bed without using bed rails?: A little Moving from lying on your back to sitting on side of flat bed without using bed rails?: A little Moving to and from bed to a chair (including w/c)?: A little Standing up from a chair using your arms (e.g. w/c or bedside chair)?: A little To walk in hospital room?: A little Climbing 3-5 steps with a railing?: A little Scoring 6 Clicks: Basic Mobility Raw Score: 18 CMS G Code Modifier: CK Therapy Plan Need for skilled Physical Therapy to address deficits in functional mobility due to a status decline resulting from hospitalization due to stenosis of R carotid artery. 78 yo M with symptomatic moderate to high grade R ICA stenosis presented 12/28 for R endarterectomy. Cardio consulted post-op d/t concerns for complete heart block, monitoring. Urology consulted d/t traumatic valero/clot retention. No chief complaint on file. Past Medical History: Diagnosis Date Adverse effect of anesthesia confusion after Anger reaction occ can possibly throw things Anxiety Behavioral and psychological symptoms of dementia ([facility]) Benign prostatic hyperplasia with urinary obstruction Urinary tract symptoms Bilateral carotid artery stenosis Bruises easily Carotid stenosis, right Cognitive impairment mild COVID-19 Dementia ([facility]) short term memory loss- per Depression Hematuria, gross Hyperlipemia Hypertension Hypothyroidism Impotence Memory loss Nocturia Poor urinary stream Positive colorectal cancer screening using Cologuard test TIA (transient ischemic attack) 10/30/2023 difficulty with vision and speech lasting 1-2 mins then slept x1 hour...sypmtoms resolved Past Surgical History: Procedure Laterality Date ADENOIDECTOMY CAROTID ENDARTERECTOMY Left 06/25/2021 COLONOSCOPY x4 ELBOW ARTHROSCOPY ENDARTERECTOMY CAROTID Right 12/29/2023 Performed by Marlys Garcia MD at [facility] SKIN CANCER EXCISION TONSILLECTOMY PT Treatment/Interventions: Functional transfer training, LE strengthening/ROM, Endurance training,Patient/family training, Equipment eval/education, Balance, Stair training, Bed mobility, Gait training, Functional activities, Neuromuscular reeducation PT Frequency: 4-5days/week PT Duration: 01/22/24 Patient Response to Treatment: Tolerated evaluation without adverse reaction Assessment Patient Assessment Therapy Problem List: Decreased balance, Decreased endurance, Decreased mobility, Decreased self-care trans, Decreased LE strength Patient Response to Treatment: Tolerated evaluation without adverse reaction Mood/Affect: Appropriate for circumstances Rehab Prognosis: Good, With continued PT status post acute discharge Visit RN Communication: Yes Medical Record Reviewed: Yes PT Type of Visit: Evaluation Precautions Activity: early mobility pass Equipment: gait belt, valero Telemetry/Pooling Operator: Yes Oxygen Used: room air Other: Fall risk, h/o dementia, s/p R endarterectomy Pain Assessment Pain Assessment: No/denies pain Home Living Type of Home: House Home Layout: Two level, Able to live on main level with bedroom/bathroom Stairs to Enter: 4 Hand Rails: Left Stairs in Home: 4 Hand Rails in Home: Right Bathroom Shower/Tub: Tub/shower unit Bathroom Toilet: Raised Bathroom Equipment: Grab bars in shower, Shower chair, Hand-held shower Home Equipment: Rolling walker, Cane, Wheelchair-manual Other : Pt IND with functional mobility prior to admission w/o use of AD. Denies any recent falls. 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 Hand Dominance: Right Hearing / Speech / Vision Hearing: Within Functional Limits Speech: Within Functional Limits Current Vision: Wears glasses all the time Cognition Overall Cognitive Status: Exceptions to Within Functional Limits Arousal/Alertness: Appropriate responses to stimuli Attention Span: Appears intact Memory: Appears intact Following Commands: Follows one step commands with increased time Safety Judgment: Decreased awareness of need for safety Awareness of Errors: Decreased awareness of errors Insight of Deficits: Decreased awareness of deficits Sensation Overall Sensation Status: Within Functional Limits Bed Mobility Other: NT- patient sitting up in chair upon arrival and returns to chair at end of session w/ call light within reach and needs met. Transfers Sit to Stand: Contact guard assist Stand to Sit: Contact guard assist Other: Transfers performed w/o AD. Cues for safety. Initial unsteadiness upon standing requiring CGA for steadying assist. Denies dizziness. Gait Base of Support: Narrow Pattern: R Decreased foot clearance, L Decreased foot clearance Gait Assistance: Contact guard assist Assistive Device: None Gait Distance: 300 ft Other: Patient ambulates without AD within hallways of facility. Initial unsteadiness, but improves. Cues for safety. Balance Sitting Balance: Static: Good Sitting Balance: Dynamic: Good Standing Balance: Static: Fair Standing Balance: Dynamic: Fair Other: Standing balance w/o use of AD. RUE Assessment: (See OT eval) LUE Assessment: (See OT eval) RLE Assessment: Within Functional Limits LLE Assessment: Within Functional Limits Activity Tolerance Endurance: Tolerates <30 minutes activity WITHOUT vital sign changes Other: Activity limtied by fatigue. Plan Physical Therapy Care Plan Physical Therapy Care Plan (Active) Template: PT - Physical Therapy Problem: Activity Tolerance Dates: Start: 12/30/23 Disciplines: PT Goal: Tolerate > 30 minutes of activity WITH rest breaks Dates: Start: 12/30/23 Expected End: 01/22/24 Description: Goal Description: For improved ability to complete normal daily and recreational tasks Disciplines: PT Problem: Gait Dates: Start: 12/30/23 Disciplines: PT Goal: Patient will perform gait Independently Dates: Start: 12/30/23 Expected End: 01/22/24 Description: LRAD, 400 ft For improved ability to safely ambulate Disciplines: PT Problem: Stairs/Curb Dates: Start: 12/30/23 Disciplines: PT Goal: Patient will perform stairs/curb with Modified [place] Dates: Start: 12/30/23 Expected End: 01/22/24 Description: 4 L HR + 4 R HR For patient to be able to safely enter/exit home Disciplines: PT Problem: Standing Balance Dates: Start: 12/30/23 Disciplines: PT Goal: Improve balance to normal Dates: Start: 12/30/23 Expected End: 01/22/24 Description: Static Dynamic: for decrease risk for LOB with functional mobility Disciplines: PT Problem: Transfers Dates: Start: 12/30/23 Disciplines: PT Goal: Patient will perform transfers Independently Dates: Start: 12/30/23 Expected End: 01/22/24 Description: Goal Description: for improved IND and decrease risk for LOB with functional mobility Disciplines: PT Physical Therapy Care Plan (Resolved) There are no resolved problems. Principal Problem: Stenosis of right carotid artery [facility] History of Present illness Narrative* Francisco Montalvo MD - 12/30/2023 11:10 AM EDT Images from the original note were not included. . [facility] PROGRESS NOTE Faith Penn SUBJECTIVE Subjective History of Present Illness: Faith Penn is a 78 y.o. male--with a PMHx of hypertension, hyperlipidemia, dementia, bilateral carotid artery stenosis s/p left carotid endarterectomy, TIA (October2023)--who underwent a right carotid endarterectomy today due to symptomatic moderate to high gradeRCA stenosis. The patient tolerated the procedure well and was transported to SICU in stable condition. In the SICU the patient's heart rate was down to 40s so his nurse ordered an EKG due to a suspicion for heart block. During the examination, the patient was resting in his bed comfotably. He denied chest pain, shortness of breath, dizziness, syncope, nausea, vomiting or any other symptoms. Currently on a phenylephrine infusion (per Vascular Surgery to keep systolic BPs elevated in the 120s) the patient's blood pressure is in 120s/40s with a heart rate hovering in the 50s. Interval Hx: 12/30/23: Patient seen and examined at bedside. In NAD. Resting comfortably in bed. No overnight events. Denied chest pain, shortness of breath, dizziness, syncope, nausea, vomiting or any other symptoms. Currently off phenylephrine infusion. Blood pressures in the 130s/80s. Allergies: Allergies Allergen Reactions Ibuprofen hypertension and Other (See Comments) Other Reaction(s): HYPERTENSION, increases BP Other reaction(s): HYPERTENSION Other reaction(s): HYPERTENSION Other Reaction(s): HYPERTENSION, increases BP Other reaction(s): HYPERTENSION Memantine Headache Nsaids (Non-Steroidal Anti-Inflammatory Drug) Elevates blood pressure CURRENT MEDICATIONS aspirin, 81 mg, oral, Daily clopidogreL, 75 mg, oral, Daily rosuvastatin, 10 mg, oral, Nightly sodium chloride, 3 mL, intravenous, Q12H CASH tamsulosin, 0.4 mg, oral, Nightly CONTINUOUS INFUSIONS niCARdipine, 5-15 mg/hr, Last Rate: Stopped (12/29/23 1115) phenylephrine (JESSIKA-SYNEPHRINE) 20 mg in sodium chloride 0.9 % 250 mL (0.08 mg/mL) infusion, 0.5-2.5mcg/kg/min, Last Rate: Stopped (12/30/23 0801) sodium chloride 0.9 % (bag), 3,000 mL, Last Rate: Stopped (12/30/23 07) sodium chloride 0.9 %, 3 mL/hr, Last Rate: 3 mL/hr (12/30/23 0923) Review of Systems Constitutional: Negative for fatigue and fever. HENT: Negative. Eyes: Negative. Respiratory: Negative for chest tightness and shortness of breath. Cardiovascular: Negative for chest pain and palpitations. Gastrointestinal: Negative for abdominal pain. Endocrine: Negative. Genitourinary: Negative. Musculoskeletal: Negative. Skin: Negative. Allergic/Immunologic: Negative. Neurological: Negative. Hematological: Negative. Psychiatric/Behavioral: Negative for agitation and behavioral problems. OBJECTIVE Objective CBC: Results from last 7 days Lab Units 12/30/23 0155 12/29/23 2140 12/29/23 1140 12/29/23 0751 WBC X10E9/L 8.6 -- 7.7 4.3 HEMOGLOBIN g/dL 11.0* 11.2* 11.1* 13.9 HEMATOCRIT % 32.3* 31.6* 32.8* 41.5 MCV fL 96 -- 95 96 PLATELETS X10E9/L 192 -- 170 197 BMP: Results from last 7 days Lab Units 12/30/23 0155 12/29/23 1335 12/29/23 0751 SODIUM mmol/L 140 140 141 POTASSIUM mmol/L 4.1 3.8 3.9 CHLORIDE mmol/L 110* 109 108 CO2 mmol/L 22 22 25 BUN mg/dL 15 18 19 CREATININE mg/dL 0.76 0.82 0.93 CALCIUM mg/dL 8.3* 8.2* 9.2 MAGNESIUM mg/dL -- 2.1 -- PT/INR: Results from last 7 days Lab Units 12/29/23 0751 PROTIME sec 12.0 INR 1.0 APTT: MAG: Results from last 7 days Lab Units 12/29/23 1335 MAGNESIUM mg/dL 2.1 D Dimer: Troponin I ProBNP Lipid Panel: No results found for: CHOL , TRIG , HDL , CHOLHDLR Liver Panel: No results found for: ALB HgA1C: No results found for: HGBA1C ABG: Telemetry: Sinus Rhythm EKG: No results found. LAST ECHO (Within 2 Years) Echo congenital limited W/O contrast Result Date: 12/02/2023 Left Ventricle: Normal left ventricular systolic function with a visually estimated EF of 50 - 55%.Left ventricle size is normal. Moderatel-severe LVH with [...] Doppler was performed. No contrast was given. LAST STRESS (Within 2 Years) No results found. CATH: (Within 2 Years) No results found. RADIOLOGY: No results found. PHYSICAL EXAM Admission Weight: Weight: 83.4 kg (183 lb 13.8 oz) I/O last 3 completed shifts: In: 2759.6 [I.V.:2109.6; IV Piggyback:650] Out: 3355 [Urine:3305; Blood:50] Weight change: Wt Readings from Last 3 Encounters: 12/29/23 83.4 kg (183 lb 13.8 oz) 12/21/23 83.5 kg (184 lb) 11/12/23 76.7 kg (169 lb 3.2 oz) Vitals: Vitals: 12/30/23 0800 12/30/23 0900 12/30/23 0933 12/30/23 1000 BP: 131/55 133/59 124/52 113/57 Pulse: 62 61 62 67 Resp: Temp: TempSrc: SpO2: 93% 100% 100% 99% Weight: Height: Admit Weight Weight: 83.4 kg (183 lb 13.8 oz) Last 3 Weights Last 3 Weight Readings 12/29/23 0728 12/29/23 1700 Weight: 83.4 kg (183 lb 13.8 oz) 83.4 kg (183 lb 13.8 oz) Body mass index is 24.26 kg/m . INTAKE/OUTPUT I/O last 3 completed shifts: In: 2759.6 [I.V.:2109.6; IV Piggyback:650] Out: 3355 [Urine:3305; Blood:50] Intake/Output Summary (Last 24 hours) at 12/30/2023 1110 Last data filed at 12/30/2023 1000 Gross per 24 hour Intake 939.88 ml Output 3670 ml Net -2730.12 ml BP 113/57 Pulse 67 Temp 37 C (98.6 F) (Oral) Resp 17 Ht 185.4 cm (6' 1 ) Wt 83.4 kg (183 lb 13.8 oz) SpO2 99% BMI 24.26 kg/m Physical Exam Constitutional: General: He is not in acute distress. Appearance: Normal appearance. He is not ill-appearing. Eyes: Extraocular Movements: Extraocular movements intact. Cardiovascular: Rate and Rhythm: Normal rate and regular rhythm. Pulses: Normal pulses. Heart sounds: Normal heart sounds. Pulmonary: Effort: Pulmonary effort is normal. No respiratory distress. Breath sounds: Normal breath sounds. Abdominal: General: Bowel sounds are normal. There is no distension. Palpations: Abdomen is soft. Tenderness: There is no abdominal tenderness. Musculoskeletal: General: Normal range of motion. Cervical back: Normal range of motion. Right lower leg: No edema. Left lower leg: No edema. Skin: General: Skin is warm and dry. Neurological: General: No focal deficit present. Mental Status: He is alert and oriented to person, place, and time. Psychiatric: Mood and Affect: Mood normal. Behavior: Behavior normal. ASSESSMENT Symptomatic right carotid artery stenosis s/p right CEA Transient ischemic attack involving right ICA Hypertension Hyperlipidemia Dementia Benign prostatic hyperplasia with urinary obstruction Major depressive disorder PLAN Despite patient's bradycardia, the EKG findings are inconsistent with complete heart block. Furthermore, the patient does not demonstrate any symptoms of bradycardia such as syncope, dizziness and dyspnea on exertion. The prolonged asymptomatic bradycardia is likely secondary to hemodynamic depression due to the stretching of the carotid sinus baroreceptors during the carotid endarterectomy. Cardiology signing off on patient. Urged patient to follow-up with his traffic control technician at [facility] This note was completed using a voice woodworking machinist system. Every effort was made to ensure accuracy. However, inadvertent computerized woodworking machinist errors may be present. Associated attestation - Kalen Alvarado MD - 12/30/2023 1:02 PM EDT Patient personally seen and examined. I agree with the history and physical as documented by Dr. Montalvo. The patient currently feels well and has no chest discomfort or dyspnea. He has no dizziness. He the patient tells me his primary traffic control technician is Dr. Cintron at [facility]. Physical examination reveals a regular S1 and S2 Telemetry currently reveals normal sinus rhythm I reviewed all ECGs, including those demonstrating sinus bradycardia with a first-degree AV block. Impression 1. Asymptomatic bradycardia, in the setting of recent carotid endarterectomy. This is likely secondary to stimulation of the carotid sinus. Recommendations 1. Continue current medications 2. No additional cardiac evaluation is required at this time. Therefore Cardiology will sign off. Please call with further questions. Following hospital discharge the patient will follow-up with his primary traffic control technician, Dr. Cintron at [facility]. * Wilder Rizo MD - 12/30/2023 7:22 AM EDT Urology - Progress Note Chief Complaint/Reason for Consult: Traumatic Valero/clot retention Subjective: No acute events overnight. Afebrile and vital signs stable Valero catheter in place with CBI running on slow drip, urine crystal clear Patient denies F/C/N/V/CP/SOA. WBC 8.6 from 7.7 Hemoglobin 11.0 from 11.2 Creatinine 0.76 from 0.82 Objective: Weight: 83.4 kg (183 lb 13.8 oz) Patient Vitals for the past 24 hrs: BP Temp Temp src Pulse Resp SpO2 Height Weight 12/30/23 0700 124/55 -- -- 61 20 100 % -- -- 12/30/23 0600 -- -- -- 60 16 100 % -- -- 12/30/23 0500 -- -- -- 86 23 99 % -- -- 12/30/238 -- -- -- 64 13 100 % -- -- 12/30/236 -- -- -- 61 16 100 % -- -- 12/30/23 0400 -- -- -- 64 21 95 % -- -- 12/30/23 0342 -- -- -- 54 15 97 % -- -- 12/30/23 0300 -- 36.7 C (98.1 F) Oral 53 20 99 % -- -- 12/30/23 0247 -- -- -- 58 22 100 % -- -- 12/30/23 0200 -- -- -- 66 19 100 % -- -- 12/30/23 0100 -- -- -- 68 23 91 % -- -- 12/30/23 0000 -- -- -- 71 19 99 % -- -- 12/29/232327 -- -- -- 73 18 100 % -- -- 12/29/232299 -- 36.8 C (98.2 F) Oral 57 16 100 % -- -- 12/29/232211 -- -- -- 63 13 100 % -- -- 12/29/232199 -- -- -- 62 16 100 % -- -- 12/29/232099 -- -- -- 60 16 100 % -- -- 12/29/232043 -- -- -- 62 19 100 % -- -- 12/29/232042 -- -- -- 62 13 100 % -- -- 12/29/231999 -- -- -- 58 14 99 % -- -- 12/29/231930 -- -- -- 50 18 98 % -- -- 12/29/23 190 -- 36.8 C (98.2 F) Oral 63 23 95 % -- -- 12/29/23 1800 -- -- -- 54 18 100 % -- -- 12/29/23 1730 -- -- -- 64 19 99 % -- -- 12/29/23 1715 -- -- -- (!) 49 22 99 % -- -- 12/29/23 1700 -- 36.5 C (97.7 F) Oral 56 21 100 % 185.4 cm (6' 1 ) 83.4 kg (183 lb 13.8 oz) 12/29/23 1645 -- -- -- 58 18 100 % -- -- 12/29/23 1600 -- -- -- 58 16 100 % -- -- 12/29/23 1515 -- -- -- (!) 44 15 100 % -- -- 12/29/23 1500 -- -- -- (!) 45 15 100 % -- -- 12/29/23 1430 -- -- -- 62 19 99 % -- -- 12/29/23 1400 -- -- -- (!) 42 14 100 % -- -- 12/29/23 1345 -- -- -- 55 17 100 % -- -- 12/29/23 1330 -- -- -- (!) 49 16 100 % -- -- 12/29/23 1315 -- -- -- (!) 43 (!) 0 100 % -- -- 12/29/23 1300 -- -- -- (!) 46 16 100 % -- -- 12/29/23 1215 -- -- -- 59 10 100 % -- -- 12/29/23 1200 -- -- -- 59 13 100 % -- -- 12/29/23 1145 -- -- -- 62 10 99 % -- -- 12/29/23 1130 -- -- -- 69 15 99 % -- -- 12/29/23 1125 -- -- -- 70 10 99 % -- -- 12/29/23 1115 -- -- -- 71 18 98 % -- -- 12/29/23 1113 -- 36.4 C (97.5 F) Oral 78 14 99 % -- -- 12/29/23 0728 119/60 36.2 C (97.2 F) Temporal 83 18 100 % 185.4 cm (6' 0.99 ) 83.4 kg (183 lb 13.8 oz) Intake/Output Summary (Last 24 hours) at 12/30/2023 0722 Last data filed at 12/30/2023 0632 Gross per 24 hour Intake 2759.55 ml Output 3355 ml Net -595.45 ml Results from last 7 days Lab Units 12/30/23 0155 12/29/23 1335 12/29/23 0751 POTASSIUM mmol/L 4.1 3.8 3.9 CHLORIDE mmol/L 110* 109 108 CO2 mmol/L 22 22 25 BUN mg/dL 15 18 19 CREATININE mg/dL 0.76 0.82 0.93 GLUCOSE mg/dL 109* 131* 107* CALCIUM mg/dL 8.3* 8.2* 9.2 Results from last 7 days Lab Units 12/30/23 0155 12/29/23 2140 12/29/23 1140 12/29/23 0751 WBC X10E9/L 8.6 -- 7.7 4.3 HEMOGLOBIN g/dL 11.0* 11.2* 11.1* 13.9 HEMATOCRIT % 32.3* 31.6* 32.8* 41.5 PLATELETS X10E9/L 192 -- 170 197 Lab Results Component Value Date GLU 109 (H) 12/30/2023 Additional Lab/culture results: Physical Exam Constitutional: General: He is not in acute distress. Eyes: General: No scleral icterus. Pupils: Pupils are equal, round, and reactive to light. Cardiovascular: Rate and Rhythm: Normal rate. Pulses: Normal pulses. Pulmonary: Effort: Pulmonary effort is normal. Abdominal: General: Abdomen is flat. There is no distension. Palpations: Abdomen is soft. Tenderness: There is no abdominal tenderness. There is no right CVA tenderness or left CVA tenderness. Genitourinary: Penis: Normal. Comments: Twenty-two [place] [address] Val[address] catheter in place with CBI crystal clear on slow drip Neurological: Mental Status: He is alert. Mental status is at baseline. Interval Imaging Findings: No results found. Assessment ( Problem List): Faith Penn is a 78 y.o. White or male who presents with: Active Problem List 1. History of dementia, angry reaction Traumatic Valero catheter insertion with gross hematuria withanticoagulation right carotid endarterectomy 12/29/2023 with subsequent postoperative urinary retention 900 mL requiring coude tip catheter for replacement 2. benign prostatic hyperplasia , decreased urinary stream, nocturia managed by Dr. Gracia with Flomax 0.4 mg 3. ED complicated by peripheral vascular disease Plan: CBI clamped this morning, we will follow up around noon to assess clamp trial. Maintain indwelling Valero catheter for at least 1 week. Continue Flomax Patient will likely need follow up with in office void trial with established urologist or our office. WILDER RIZO MD Urology Resident, PGY-2 7:22 AM 12/30/23 Associated attestation - Alberto Gonzalez Jr., MD - 12/30/2023 2:47 PM EDT Attending Attestation: I saw the patient. I participated and was physically present during the critical/w[place] portions of the service. I was directly involved in the management and treatment plan of the patient. I reviewed the resident's note. Additional Notes/Findings: Agree urine looks nice and clear this morning with CBI turned essentially off. Discussed entire situation with his , Maria Alejandra, by telephone, who agrees to follow up with his local established urologist. Impressions: 1. History of dementia, angry reaction Traumatic Valero catheter insertion with gross hematuria withanticoagulation right carotid endarterectomy 12/29/2023 with subsequent postoperative urinary retention 900 mL requiring coude tip catheter for replacement; Maria Alejandra 2. benign prostatic hyperplasia , decreased urinary stream, nocturia managed by Dr. Gracia with Flomax 0.4 mg 3. ED complicated by peripheral vascular disease Recommendations: As above. Patient's agrees to follow up with Dr. Gracia, the established urologist, at his office shortly after discharge. We would recommend indwelling Valero catheter for 1 week before voiding trial with Flomax now restarted. Thank you very much. I appreciate being asked to help with this patient's care. Alberto Gonzalez Jr., M.D. [facility] [phone] Addendum 2:47 p.m.-urine crystal clear off CBI. Okay to discharge to home from Urology standpoint with follow-up as noted above. We will sign off for now. I will be away after today until Thursday. Please let us know if you need any further assistance. Alberto Gonzalez Jr., M.D. [facility] [phone] documented in this encounterSt[facility] Plan of care note * Plan of Care - Kari Carlos RN - 12/30/2023 8:49 AM EDT Problem: Neurological Deficit Goal: Neurological status is stable or improving Description: Patient's goal is: INTERVENTIONS 1. Complete Neurological assessment as indicated/ordered 2. Initiate measures to prevent increased intracranial pressure 3. Monitor and assess patient's level of consciousness, motor function, sensory function, and levelof assistance needed for ADLs 4. Monitor and report changes from baseline 5. Maintain blood pressure and fluid volume within ordered parameters to optimize cerebral perfusion and minimize risk of hemorrhage 6. Monitor labs and diagnostic tests 7. Administer anti-seizure medications as ordered 8. Maintain airway, patient safety and administer oxygen as ordered 9. Monitor patient for seizure activity, document and report duration and description of seizure toLIP 10. If seizure occurs, turn patient to side and suction secretions as needed 11. Reorient patient post seizure 12. Seizure pads on all 4 side rails 13. Instruct patient/family to notify RN of any seizure activity 14. Instruct patient/family to call for assistance with activity based on assessment 15. Utilize bleeding precautions if thrombolytic given Outcome: Progressing Note: Evaluation of progress towards goal: Faith is alert and oriented x2-3. He is forgetful, states he is normally confused after anesthesia and has baseline dementia with short term memory loss. Problem: Activity Intolerance/Impaired Mobility Goal: Mobility/activity is maintained at optimum level for patient Description: Patient's goal is: INTERVENTIONS 1. Assess and monitor patient barriers to mobility and need for assistive/adaptive devices 2. Assess patient's emotional response to limitations 3. Collaborate with interdisciplinary teams and initiate plans and interventions as ordered 4. Encourage independent activity per tolerance 5. Maintain proper body alignment 6. Perform active/passive ROM as tolerated/ordered 7. Coordinate activities to conserve energy 8. Reposition patient 9. Ensure adequate rest/sleep time Outcome: Progressing Note: Evaluation of progress towards goal: Faith is up with assistance with a walker. Will continue to advance mobility. Problem: Communication Impairment Goal: Ability to express needs and understand communication Description: INTERVENTIONS 1. Assess patient's communication skills and ability to understand information 2. Provide alternate method of communication if needed i.e. ipad, sign board, pen/paper 3. Collaborate with Speech Therapy to develop effective communication strategies 4. Include patient/patient dairy supplies sales representative in decisions related to communication Outcome: Progressing Note: Evaluation of progress towards goal: Faith is able to express his needs and understand communication. He is forgetful. Problem: Potential for Aspiration Goal: Patient's risk of aspiration is minimized Description: INTERVENTIONS 1. Assess and monitor vital signs, respiratory status, and labs (WBC) 2. Monitor for signs of aspiration (tachypnea, cough, rales, wheezing, cyanosis, fever) 3. Assess and monitor patient's ability to swallow 4. Place patient up in chair to eat if possible 5. Elevate head of bed 90 degrees to eat if unable to get patient up into chair 6. Supervise patient during oral intake 7. Instruct patient to take small bites 8. Instruct patient to take small single sips when taking liquids 9. Follow patient-specific strategies generated by speech pathologist 10. Complete bedside swallow screen if appropriate and take actions as indicated. 11. Administer prescribed medications and monitor effects Outcome: Progressing Note: Evaluation of progress towards goal: Faith passed his bedside swallow assessment and is tolerating liquids. Problem: Anxiety Goal: Anxiety is at manageable level Description: Patient's goal is: INTERVENTIONS 1. Assess and monitor patient's anxiety level 2. Monitor for signs and symptoms of anxiety both physical and emotional (heart palpitations, chestpain, shortness of breath, headaches, nausea, feeling jumpy, restlessness, irritable, apprehensive) 3. Reorient/orient patient to unit/surroundings 4. Explain treatment plan 5. Explain tests/procedures prior to initiation 6. Encourage participation in care 7. Encourage verbalization of concerns/fears 8. Assess coping mechanisms 9. Assist in developing anxiety-reducing skills 10. Administer complimentary therapies 11. Manage patient's environment 12. Limit or eliminate stimulants such as caffeine and nicotine 13. Collaborate with ancillary departments 14. Include patient/patient dairy supplies sales representative in decisions related to anxiety Outcome: Progressing Note: Evaluation of progress towards goal: Faith is mildly anxious and occasionally attempts to get out of bed on his own. He is a fall risk and has a bed/chair alarm working. Problem: Potential for Compromised Skin Integrity Goal: Skin integrity is maintained or improved Description: Patient's goal is: INTERVENTIONS 1. Perform initial skin assessment on admission and as needed 2. Turn patient every 2 hours and PRN 3. Relieve pressure to bony prominences 4. Avoid shearing 5. Keep skin clean and dry 6. Alternate a full bath with partial baths for elderly 7. Apply lotion/moisturizer on skin 8. Monitor patient's hygiene practices 9. Float heels 10. Collaborate with interdisciplinary team and initiate plans and interventions as needed Outcome: Progressing Note: Evaluation of progress towards goal: Faith has no new signs of skin breakdown at this time.He is able to turn and reposition himself as needed. Foam dressing in place on coccyx. Goal: Patient's nutritional intake is adequate Description: Patient's goal is: INTERVENTIONS 1. Assess and monitor food intake and supplements, patient food preferences, nausea, vomiting, labs, oral cavity (gums, teeth, tongue, mucosa), proper denture fit, and cultural beliefs 2. Monitor for signs of hypoglycemia and hyperglycemia 3. Collaborate with interdisciplinary team and initiate plan and interventions as ordered 4. Monitor patient's weight 5. Assist patient with meals/food selection 6. Assist patient with eating 7. Allow adequate time for meals 8. Provide pleasant environment during mealtime 9. Increase social contact during mealtimes 10. Plan activities to conserve energy 11. Encourage/perform oral hygiene as appropriate 12. Encourage patient to take dietary supplement as ordered 13. Collaborate with clinical toilet products molder 14. Include patient/ patient's dairy supplies sales representative in decisions related to nutrition Outcome: Progressing Note: Evaluation of progress towards goal: Faith is maintaining adequate nutrition and is tolerating clear liquids at this timee, will continue to advance as tolerated. Problem: Self Care Deficit Goal: Return ADL status to a safe level of function Description: Patient's goal is: INTERVENTIONS 1. Administer medication as ordered 2. Assess ADL deficits and provide assistive devices as needed 3. Obtain PT/OT consults as needed 4. Assist and instruct patient to increase activity and self care as tolerated Outcome: Progressing Note: Evaluation of progress towards goal: Faith has BLE weakness and needs assistance with mobility. He is slightly confused with baseline dementia. Problem: Safety Goal: Patient will be injury free during hospitalization Description: INTERVENTIONS: 1. Assess patient's risk for falls and implement fall prevention plan of care per policy 2. Provide and maintain a safe environment 3. Proper use of double Identifiers 4. Medication administration using the 5 rights 5. Hand hygiene 6. Specimens are labeled at the bedside 7. Instruct patient/ patient dairy supplies sales representative about use of safety devices 8. Include patient/ patient dairy supplies sales representative in decisions related to safety Outcome: Progressing Note: Evaluation of progress towards goal: Faith remains free from injury at this time. All linesand tubes intact and in place. Will continue to monitor. Bed/chair alarm on and working. Problem: Infection Goal: Absence of infection during hospitalization Description: Interventions: 1. Assess and monitor for signs and symptoms of infection 2. Monitor lab/diagnostic results 3. Monitor all insertion sites i.e., indwelling lines, tubes and drains 4. Monitor endotracheal (as able) and nasal secretions for changes in amount and color 5. Administer medications as ordered 6. Instruct and encourage patient and family to use good hand hygiene technique 7. Identify and instruct patient/patient dairy supplies sales representative in use of appropriate isolation precautionsfor identified infection/symptoms 8. Provide and discuss with patient/patient dairy supplies sales representative on educational MDRO sheet 9. Encourage and monitor nutritional status daily and consult toilet products molder if indicated 10. Implement neutropenic guidelines as needed 11. Review exposure to history of communicable disease and recent travel history on admission 12. Encourage annual influenza vaccine 13. Encourage pneumonia vaccine Outcome: Progressing Note: Evaluation of progress towards goal: Faith remains afebrile with no signs of infection at this time. Will continue to monitor. Problem: Knowledge Deficit Goal: Patient/patient dairy supplies sales representative demonstrates understanding of disease process, treatment plan,medications, and discharge instructions Description: INTERVENTIONS 1. Complete learning assessment and assess knowledge base 2. Provide teaching at level of understanding 3. Provide teaching via preferred learning method(s) Outcome: Progressing Note: Evaluation of progress towards goal: Faith and his , Maria Alejandra, are updated on POC and questions/concerns have been addressed by care team. Will continue to address. Problem: Discharge Planning Goal: Discharge to post-acute care, other facility, or home with appropriate resources Description: Patient's goal is: INTERVENTIONS 1. Conduct assessment to determine patient/family and health care team treatment goals, and need for post-acute services based on payer coverage, community resources, and patient preferences, and barriers to discharge 2. Coordinate with Social work, Care Navigation, and Utilization Review to arrange appropriate level of services according to patient's needs based on patient preference and payer coverage in collaboration with the physician and health care team 3. Address psychosocial, clinical, and financial barriers to discharge as identified in assessment in conjunction with the patient/family and health care team 4. Consult appropriate ancillary services (i.e.. PT/OT/ST, etc) as needed 5. Communicate with and update the patient/family, physician, and health care team regarding progress on the discharge plan 6. Identify discharge learning needs (meds, wound care, etc). 7. Arrange for needed discharge transportation as appropriate Outcome: Progressing Note: Evaluation of progress towards goal: Discharge planning is progressing during Faith's stay.He is not appropriate for discharge at this time. Will continue to collaborate with care team to progress towards discharge. Problem: Moderate - High Risk Fall Score Description: Galaviz Fall Score of =/> 25 or indicated by [facility] Assessment Goal: Patient should be free from fall Description: Interventions: 1. [place] to environment 2. Hourly rounds addressing the 4 P's (Pain, Positioning, Possessions, Potty) 3. Clear area of hazards (spills, clutter, electrical cords, unnecessary equipment) 4. Place equipment (bed & TV controls, call light, phone, urinal) within reach 5. Encourage patient to wear glasses and hearing aides as appropriate 6. Maintain bed in lowest position 7. Lock wheels on bed/wheelchair 8. Provide adequate lighting, including night light 9. Assess need for additional bedding, food/fluids, pain med's prior to sleep/routinely 10. Provide gripper slippers or personal non-skid footwear 11. Teach patient and patient dairy supplies sales representative to maintain environment for safety and engage in all aspects of fall prevention program 12. Remind patient to call for help before getting out of bed 13. Initiate bed/chair/exit alarms supportive devices as appropriate, (chair wedge, no-skid floor mat, raised edge mattress, hip protectors) 14. Locate patient bed assignment for optimal visualization 15. Evaluate and identify Safe Patient Handling Equipment needs 16. Provide supervision when out of bed or chair 17. Utilize gait belt as needed to assist with ambulation 18. Place adaptive equipment (cane, walker) within reach 19. Request patient dairy supplies sales representative bring adaptive equipment/mobility aids from home or obtain and provide as needed 20. Consult pharmacy regarding effects of med's affecting mobility, cognition, and alternatives 21. Obtain physician order for PT if risk factors associated with mobility are present 22. Obtain physician order for OT as appropriate 23. Utilize diversional activities 24. Educate patient and patient dairy supplies sales representative how to maintain a safe environment during visitationtimes (notify nurse prior to leaving bedside) 25. Consider appropriateness of medical or non-medical case manager 26. Set up voiding schedule as appropriate (every 2 hours) Outcome: Progressing Note: Evaluation of progress towards goal: Faith remains free from falls at this time. All lines and tubes intact and in place. Will continue to monitor. Bed/chair alarm on and working. Problem: Pain Goal: Patient goal is pain score less than 4, able to rest, and participant in treatment plan as appropriate Description: INTERVENTIONS: 1. Encourage patient or legal dairy supplies sales representative to report early pain and ask for pain medicine when needed 2. Assess pain using appropriate pain scale and include the scale used when documenting 3. Administer analgesics based on type and severity of pain and evaluate response within appropriate time frame 4. Implement non-pharmacological measures as appropriate and evaluate response 5. Consider cultural and social influences on pain and pain management 6. Notify LIP if interventions ineffective or patient reports new pain 7. Monitor vital signs including pulse ox, end-tidal CO2 based on pain intervention 8. Reassess pain per policy 9. Teach patient or legal dairy supplies sales representative interventions for comforting Outcome: Adequate for Discharge Note: Evaluation of progress towards goal: Faith denies any pain at this time. Will continue to monitor. [facility]07-[facility] Plan of care note* Plan of Care - Stefania Cruz RN - 12/30/2023 1:29 AM EDT Problem: Potential for Compromised Skin Integrity Goal: Skin integrity is maintained or improved Description: Patient's goal is: INTERVENTIONS 1. Perform initial skin assessment on admission and as needed 2. Turn patient every 2 hours and PRN 3. Relieve pressure to bony prominences 4. Avoid shearing 5. Keep skin clean and dry 6. Alternate a full bath with partial baths for elderly 7. Apply lotion/moisturizer on skin 8. Monitor patient's hygiene practices 9. Float heels 10. Collaborate with interdisciplinary team and initiate plans and interventions as needed Outcome: Progressing Note: Evaluation of progress towards goal: [place] skin integrity is maintained at this time. [place] is clean, dry, and intact. Will continue to monitor. Problem: Pain Goal: Patient goal is pain score less than 4, able to rest, and participant in treatment plan as appropriate Description: INTERVENTIONS: 1. Encourage patient or legal dairy supplies sales representative to report early pain and ask for pain medicine when needed 2. Assess pain using appropriate pain scale and include the scale used when documenting 3. Administer analgesics based on type and severity of pain and evaluate response within appropriate time frame 4. Implement non-pharmacological measures as appropriate and evaluate response 5. Consider cultural and social influences on pain and pain management 6. Notify LIP if interventions ineffective or patient reports new pain 7. Monitor vital signs including pulse ox, end-tidal CO2 based on pain intervention 8. Reassess pain per policy 9. Teach patient or legal dairy supplies sales representative interventions for comforting Outcome: Progressing Note: Evaluation of progress towards goal: Faith denies any pain at this time. Will continue to assess and treat as appropriate. Problem: Infection Goal: Absence of infection during hospitalization Description: Interventions: 1. Assess and monitor for signs and symptoms of infection 2. Monitor lab/diagnostic results 3. Monitor all insertion sites i.e., indwelling lines, tubes and drains 4. Monitor endotracheal (as able) and nasal secretions for changes in amount and color 5. Administer medications as ordered 6. Instruct and encourage patient and family to use good hand hygiene technique 7. Identify and instruct patient/patient dairy supplies sales representative in use of appropriate isolation precautionsfor identified infection/symptoms 8. Provide and discuss with patient/patient dairy supplies sales representative on educational MDRO sheet 9. Encourage and monitor nutritional status daily and consult toilet products molder if indicated 10. Implement neutropenic guidelines as needed 11. Review exposure to history of communicable disease and recent travel history on admission 12. Encourage annual influenza vaccine 13. Encourage pneumonia vaccine Outcome: Progressing Note: Evaluation of progress towards goal: Faith is infection free at this time. He is showing nosigns or symptoms of infection. Will continue to monitor. Problem: Moderate - High Risk Fall Score Description: Galaviz Fall Score of =/> 25 or indicated by [facility] Assessment Goal: Patient should be free from fall Description: Interventions: 1. [place] to environment 2. Hourly rounds addressing the 4 P's (Pain, Positioning, Possessions, Potty) 3. Clear area of hazards (spills, clutter, electrical cords, unnecessary equipment) 4. Place equipment (bed & TV controls, call light, phone, urinal) within reach 5. Encourage patient to wear glasses and hearing aides as appropriate 6. Maintain bed in lowest position 7. Lock wheels on bed/wheelchair 8. Provide adequate lighting, including night light 9. Assess need for additional bedding, food/fluids, pain med's prior to sleep/routinely 10. Provide gripper slippers or personal non-skid footwear 11. Teach patient and patient dairy supplies sales representative to maintain environment for safety and engage in all aspects of fall prevention program 12. Remind patient to call for help before getting out of bed 13. Initiate bed/chair/exit alarms supportive devices as appropriate, (chair wedge, no-skid floor mat, raised edge mattress, hip protectors) 14. Locate patient bed assignment for optimal visualization 15. Evaluate and identify Safe Patient Handling Equipment needs 16. Provide supervision when out of bed or chair 17. Utilize gait belt as needed to assist with ambulation 18. Place adaptive equipment (cane, walker) within reach 19. Request patient dairy supplies sales representative bring adaptive equipment/mobility aids from home or obtain and provide as needed 20. Consult pharmacy regarding effects of med's affecting mobility, cognition, and alternatives 21. Obtain physician order for PT if risk factors associated with mobility are present 22. Obtain physician order for OT as appropriate 23. Utilize diversional activities 24. Educate patient and patient dairy supplies sales representative how to maintain a safe environment during visitationtimes (notify nurse prior to leaving bedside) 25. Consider appropriateness of medical or non-medical case manager 26. Set up voiding schedule as appropriate (every 2 hours) Outcome: Progressing Note: Evaluation of progress towards goal: Faith is free from falls at this time. His bed is in the lowest position, his call light is within reach, and his bed alarm is on. Will continue to assess. [facility] [id number] Consult note* Wilder Rizo MD - 12/29/2023 8:40 PM EDTAssociated Order(s): IP CONSULT TO UROLOGY Images from the original note were not included. Darell Rivas Jr., MD, Alberto Gonzalez Jr., MD, Roman Goss MD, Kashif Londono MD, Keaton Oconnor MD, Mikayla Rooney MD, Mary Grace Valdez MD, Анна Saenz MD, Jovani Mcdonald MD, Jesus Courtney MD Urology Consult Note Patient: Faith Penn Date of : 1945 ATTENDING: Dr. Gonzalez CHIEF COMPLAINT: traumatic Valero /clot retention HISTORY OF PRESENT ILLNESS: The patient is a 78 y.o. male past medical history of hypertension, hyperlipidemia, dementia, bilateral carotid artery stenosis status post left carotid endarterectomy, TIA, who presented today for right carotid endarterectomy for carotid artery stenosis. Additionally, patient has a past urologic history of BPH with LUTS known to Dr. Gracia for which he has had a Valero catheter placed for urinary retention prior, however due to patient's dementia it is difficult to obtain an accurate history. During carotid endarterectomy today patient had Valero catheter placed for the procedure. During Valero catheter placement injury occurred to the prostate with mild bleeding around Valero catheter. Following the procedure Valero catheter was removed however patient began having excessive bleeding from the urethral meatus. Additionally, bladder scan was performed showing 900 cc within the bladder and the patient was unable to void. Urology was consulted for traumatic Valero and urinary retention. On evaluation, patient is resting comfortably in bed and in no acute distress. Patient is afebrile and hemodynamically stable. Patient endorses the urge to urinate but is unable to. External catheterwas removed showing large amounts of clots and continued oozing from the urethral meatus. Twenty-two [place] [address] was attempted but immediately met resistance at the level of the prostate. A [address] coude was then successfully placed past the prostate with immediate return of red urine. Three-way Valero catheter was hand irrigated with minimal clots from the bladder and patient tolerated Valero catheter placement well. Patient's old records, notes and chart reviewed and summarized above. Past Medical History: Past Medical History: Diagnosis Date Adverse effect of anesthesia confusion after Anger reaction occ can possibly throw things Anxiety Behavioral and psychological symptoms of dementia (CMS-HCC) Benign prostatic hyperplasia with urinary obstruction Urinary tract symptoms Bilateral carotid artery stenosis Bruises easily Carotid stenosis, right Cognitive impairment mild COVID-19 Dementia (CMS-HCC) short term memory loss- per Depression Hematuria, gross Hyperlipemia Hypertension Hypothyroidism Impotence Memory loss Nocturia Poor urinary stream Positive colorectal cancer screening using Cologuard test TIA (transient ischemic attack) 10/30/2023 difficulty with vision and speech lasting 1-2 mins then slept x1 hour...sypmtoms resolved Past Surgical History: Past Surgical History: Procedure Laterality Date ADENOIDECTOMY CAROTID ENDARTERECTOMY Left 06/25/2021 COLONOSCOPY x4 ELBOW ARTHROSCOPY ENDARTERECTOMY CAROTID Right 12/29/2023 Performed by Marlys Garcia MD at [facility] SKIN CANCER EXCISION TONSILLECTOMY Medications: Scheduled Meds: aspirin, 81 mg, oral, Daily clopidogreL, 75 mg, oral, Daily lidocaine, 1 Application, urethral, Once rosuvastatin, 10 mg, oral, Nightly sodium chloride, 3 mL, intravenous, Q12H CASH Continuous Infusions: lactated ringer's, 50 mL/hr, Last Rate: 50 mL/hr (12/29/231124) niCARdipine, 5-15 mg/hr, Last Rate: Stopped (12/29/231114) phenylephrine (JESSIKA-SYNEPHRINE) 20 mg in sodium chloride 0.9 % 250 mL (0.08 mg/mL) infusion, 0.5-2.5mcg/kg/min, Last Rate: 0.5 mcg/kg/min (12/29/231256) sodium chloride 0.9 %, 3 mL/hr, Last Rate: 3 mL/hr (12/29/232007) PRN Meds:. acetaminophen calcium gluconate OR calcium gluconate OR calcium gluconate magnesium sulfate OR magnesium sulfate ondansetron potassium chloride OR potassium chloride potassium chloride in water OR potassium chloride in water sodium phosphate IV OR sodium phosphate IV - central line OR sod phos di, mono-K phos mono sodium chloride Allergies: Ibuprofen, Memantine, and Nsaids (non-steroidal anti-inflammatory drug) Social History: Social History Socioeconomic History Marital status: Spouse name: Not on file Number of children: Not on file Years of education: Not on file Highest education level: Not on file Occupational History Not on file Tobacco Use Smoking status: Former Types: Pipe, Cigars Passive exposure: Never Smokeless tobacco: Never Vaping Use Vaping status: Never Used Substance and Sexual Activity Alcohol use: Not Currently Alcohol/week: 4.0 standard drinks of alcohol Types: 4 Glasses of wine per week Drug use: Never Sexual activity: Defer Other Topics Concern Not on file Social History Narrative Not on file Social Determinants of Health Financial Resource Strain: Low Risk (11/16/2023) Received from [facility] Overall Financial Resource Strain (CARDIA) Difficulty of Paying Living Expenses: Not hard at all Food Insecurity: No Food Insecurity (12/29/2023) Hunger Screening Food Insecurity - Worry: Never True Food Insecurity - Inability: Never True Transportation Needs: No Transportation Needs (12/29/2023) PRAPARE - Transportation Lack of Transportation (Medical): No Lack of Transportation (Non-Medical): No Physical Activity: Insufficiently Active (04/27/2023) Received from [facility] Exercise Vital Sign Days of Exercise per Week: 7 days Minutes of Exercise per Session: 20 min Stress: Not on file Social Connections: Not on file Interpersonal Safety: Not At Risk (12/29/2023) Humiliation, Afraid, Rape, and Kick questionnaire Fear of Current or Ex-Partner: No Emotionally Abused: No Physically Abused: No Sexually Abused: No Housing Instability: Low Risk (12/29/2023) Housing Instability Housing Instability: No Family History: Family History Problem Relation Age of Onset Anesthesia problems Neg Hx REVIEW OF SYSTEMS: Review of Systems Constitutional: Negative for fever, chills and fatigue. Respiratory: Negative for shortness of breath. Cardiovascular: Negative for palpitations, chest discomfort and tachycardia. Gastrointestinal: Negative for nausea, vomiting, abdominal pain, diarrhea, constipation and abdominal distention. Genitourinary: Positive for bladder incontinence, dysuria, urgency, hematuria and difficulty urinating. Negative for frequency and flank pain. Neurological: Negative for dizziness, syncope and headaches. Physical Exam: This a 78 y.o. patient Patient Vitals for the past 24 hrs: BP Temp Temp src Pulse Resp SpO2 Height Weight 12/29/231999 -- -- -- 58 14 99 % -- -- 12/29/23 1900 -- 36.8 C (98.2 F) Oral 63 23 95 % -- -- 12/29/23 1800 -- -- -- 54 18 100 % -- -- 12/29/23 1730 -- -- -- 64 19 99 % -- -- 12/29/23 1715 -- -- -- (!) 49 22 99 % -- -- 12/29/23 1700 -- 36.5 C (97.7 F) Oral 56 21 100 % 185.4 cm (6' 1 ) 83.4 kg (183 lb 13.8 oz) 12/29/23 1645 -- -- -- 58 18 100 % -- -- 12/29/23 1600 -- -- -- 58 16 100 % -- -- 12/29/23 1515 -- -- -- (!) 44 15 100 % -- -- 12/29/23 1500 -- -- -- (!) 45 15 100 % -- -- 12/29/23 1430 -- -- -- 62 19 99 % -- -- 12/29/23 1400 -- -- -- (!) 42 14 100 % -- -- 12/29/23 1345 -- -- -- 55 17 100 % -- -- 12/29/23 1330 -- -- -- (!) 49 16 100 % -- -- 12/29/23 1315 -- -- -- (!) 43 (!) 0 100 % -- -- 12/29/23 1300 -- -- -- (!) 46 16 100 % -- -- 12/29/23 1215 -- -- -- 59 10 100 % -- -- 12/29/23 1200 -- -- -- 59 13 100 % -- -- 12/29/23 1145 -- -- -- 62 10 99 % -- -- 12/29/23 1130 -- -- -- 69 15 99 % -- -- 12/29/23 1125 -- -- -- 70 10 99 % -- -- 12/29/23 1115 -- -- -- 71 18 98 % -- -- 12/29/23 1113 -- 36.4 C (97.5 F) Oral 78 14 99 % -- -- 12/29/23 0728 119/60 36.2 C (97.2 F) Temporal 83 18 100 % 185.4 cm (6' 0.99 ) 83.4 kg (183 lb 13.8 oz) Physical Exam Constitutional: General: He is not in acute distress. Eyes: General: No scleral icterus. Pupils: Pupils are equal, round, and reactive to light. Cardiovascular: Rate and Rhythm: Normal rate. Pulses: Normal pulses. Pulmonary: Effort: Pulmonary effort is normal. Abdominal: General: Abdomen is flat. There is no distension. Palpations: Abdomen is soft. Tenderness: There is no abdominal tenderness. There is no right CVA tenderness or left CVA tenderness. Genitourinary: Penis: Normal. Comments: Twenty-two [place] [address] Valero catheter in place draining red urine. Neurological: Mental Status: He is alert. Mental status is at baseline. LABS: Results from last 7 days Lab Units 12/29/23 1140 12/29/23 0751 WBC X10E9/L 7.7 4.3 HEMOGLOBIN g/dL 11.1* 13.9 HEMATOCRIT % 32.8* 41.5 PLATELETS X10E9/L 170 197 Results from last 7 days Lab Units 12/29/23 1335 12/29/23 0751 POTASSIUM mmol/L 3.8 3.9 CHLORIDE mmol/L 109 108 CO2 mmol/L 22 25 BUN mg/dL 18 19 CREATININE mg/dL 0.82 0.93 GLUCOSE mg/dL 131* 107* CALCIUM mg/dL 8.2* 9.2 No results found for: PSA Additional Lab/culture results: Microbiology Results No results found for the last 168 hours. Urinalysis: No results found for: COLOR , TURBIDITY , SPECIFICGRA , NITRITE , PHURINE , LEUKOCYTE , PROTEIN , KETONES , UROBILINOGEN , BLOODHGB Imaging Results: none Assessment and Plan Impression: Faith Penn is a 78 y.o. male who presents Active Problem List Traumatic Valero with continued bleeding from the urethral meatus. Clot retention secondary to traumatic Valero event. BPH with LUTS Plan: 22 [place] coude Valero catheter placed bedside with return of 900 cc of red urine. Patient will likely need Valero catheter for 5-7 days for high volume retention. Three-way Valero catheter currently with in port plugged. Low threshold to start CBI if Valero catheter clots or patient has bladder spasms secondary to clots within the urinary bladder. Hand irrigate Valero catheter as needed for clots. We will begin Flomax nightly for BPH /retention. We will add Levsin for bladder spasms. Urology will continue to follow. WILDER RIZO MD 8:40 PM 12/29/2023 Associated attestation - Alberto Gonzalez Jr., MD - 12/29/2023 11:52 PM EDT Attending Attestation: I saw the patient. I participated and was physically present during the critical/wellington portions of the service. I was directly involved in the management and treatment plan of the patient. I reviewed the resident's note. Additional Notes/Findings: Patient interviewed and examined by me. Moseley red urine in Valero catheter. Penis circumcised without mass lesion or discharge. Insert testicles prostate exam deferred based on recent surgery. History and physical and cardiology notes reviewed. Operative report reviewed. Impressions: 1. History of dementia, angry reaction Traumatic Valero catheter insertion with gross hematuria withanticoagulation right carotid endarterectomy 12/29/2023 with subsequent postoperative urinary retention 900 mL requiring coude tip catheter for replacement 2. benign prostatic hyperplasia , decreased urinary stream, nocturia managed by Dr. Gracia with Flomax 0.4 mg 3. ED complicated by peripheral vascular disease Recommendations: 1. CBI clear 2. Monitor CBC 3. Indwelling Valero catheter for 1 week at least. 4. Restart Flomax 0.4 mg nightly 5. Voiding trial with established urologist or if patient prefers our office. We will follow with you. Thank you very much. I appreciate being asked to help with this patient's care. Alberto Gonzalez Jr., M.D. [facility] [phone] [facility]07-23-2024 Consult note* Wilder Rizo MD - 12/29/2023 8:40 PM EDTAssociated Order(s): IP CONSULT TO UROLOGY Images from the original note were not included. Darell Rivas Jr., MD, Alberto Gonzalez Jr., MD, Roman Goss MD, Kashif Londono MD, Keaton Oconnor MD, Mikayla Rooney MD, Mary Grace Valdez MD, Анна Saenz MD, Jovani Mcdonald MD, Jesus Courtney MD Urology Consult Note Patient: Faith Penn Date of : 1945 ATTENDING: Dr. Gonzalez CHIEF COMPLAINT: traumatic Valero /clot retention HISTORY OF PRESENT ILLNESS: The patient is a 78 y.o. male past medical history of hypertension, hyperlipidemia, dementia, bilateral carotid artery stenosis status post left carotid endarterectomy, TIA, who presented today for right carotid endarterectomy for carotid artery stenosis. Additionally, patient has a past urologic history of BPH with LUTS known to Dr. Gracia for which he has had a Valero catheter placed for urinary retention prior, however due to patient's dementia it is difficult to obtain an accurate history. During carotid endarterectomy today patient had Valero catheter placed for the procedure. During Valero catheter placement injury occurred to the prostate with mild bleeding around Valero catheter. Following the procedure Valero catheter was removed however patient began having excessive bleeding from the urethral meatus. Additionally, bladder scan was performed showing 900 cc within the bladder and the patient was unable to void. Urology was consulted for traumatic Valero and urinary retention. On evaluation, patient is resting comfortably in bed and in no acute distress. Patient is afebrile and hemodynamically stable. Patient endorses the urge to urinate but is unable to. External catheterwas removed showing large amounts of clots and continued oozing from the urethral meatus. Twenty-two [place] [address] was attempted but immediately met resistance at the level of the prostate. A [address] [place] coude was then successfully placed past the prostate with immediate return of red urine. Three-way Valero catheter was hand irrigated with minimal clots from the bladder and patient tolerated Valero catheter placement well. Patient's old records, notes and chart reviewed and summarized above. Past Medical History: Past Medical History: Diagnosis Date Adverse effect of anesthesia confusion after Anger reaction occ can possibly throw things Anxiety Behavioral and psychological symptoms of dementia ([facility]-HCC) Benign prostatic hyperplasia with urinary obstruction Urinary tract symptoms Bilateral carotid artery stenosis Bruises easily Carotid stenosis, right Cognitive impairment mild COVID-19 Dementia ([facility]-HCC) short term memory loss- per Depression Hematuria, gross Hyperlipemia Hypertension Hypothyroidism Impotence Memory loss Nocturia Poor urinary stream Positive colorectal cancer screening using Cologuard test TIA (transient ischemic attack) 10/30/2023 difficulty with vision and speech lasting 1-2 mins then slept x1 hour...sypmtoms resolved Past Surgical History: Past Surgical History: Procedure Laterality Date ADENOIDECTOMY CAROTID ENDARTERECTOMY Left 06/25/2021 COLONOSCOPY x4 ELBOW ARTHROSCOPY ENDARTERECTOMY CAROTID Right 12/29/2023 Performed by Marlys Garcia MD at [facility] SKIN CANCER EXCISION TONSILLECTOMY Medications: Scheduled Meds: aspirin, 81 mg, oral, Daily clopidogreL, 75 mg, oral, Daily lidocaine, 1 Application, urethral, Once rosuvastatin, 10 mg, oral, Nightly sodium chloride, 3 mL, intravenous, Q12H CASH Continuous Infusions: lactated ringer's, 50 mL/hr, Last Rate: 50 mL/hr (12/29/23 112) niCARdipine, 5-15 mg/hr, Last Rate: Stopped (12/29/231114) phenylephrine (JESSIKA-SYNEPHRINE) 20 mg in sodium chloride 0.9 % 250 mL (0.08 mg/mL) infusion, 0.5-2.5mcg/kg/min, Last Rate: 0.5 mcg/kg/min (12/29/231256) sodium chloride 0.9 %, 3 mL/hr, Last Rate: 3 mL/hr (12/29/232007) PRN Meds:. acetaminophen calcium gluconate OR calcium gluconate OR calcium gluconate magnesium sulfate OR magnesium sulfate ondansetron potassium chloride OR potassium chloride potassium chloride in water OR potassium chloride in water sodium phosphate IV OR sodium phosphate IV - central line OR sod phos di, mono-K phos mono sodium chloride Allergies: Ibuprofen, Memantine, and Nsaids (non-steroidal anti-inflammatory drug) Social History: Social History Socioeconomic History Marital status: Spouse name: Not on file Number of children: Not on file Years of education: Not on file Highest education level: Not on file Occupational History Not on file Tobacco Use Smoking status: Former Types: Pipe, Cigars Passive exposure: Never Smokeless tobacco: Never Vaping Use Vaping status: Never Used Substance and Sexual Activity Alcohol use: Not Currently Alcohol/week: 4.0 standard drinks of alcohol Types: 4 Glasses of wine per week Drug use: Never Sexual activity: Defer Other Topics Concern Not on file Social History Narrative Not on file Social Determinants of Health Financial Resource Strain: Low Risk (11/16/2023) Received from [facility] Overall Financial Resource Strain (CARDIA) Difficulty of Paying Living Expenses: Not hard at all Food Insecurity: No Food Insecurity (12/29/2023) Hunger Screening Food Insecurity - Worry: Never True Food Insecurity - Inability: Never True Transportation Needs: No Transportation Needs (12/29/2023) PRAPARE - Transportation Lack of Transportation (Medical): No Lack of Transportation (Non-Medical): No Physical Activity: Insufficiently Active (04/27/2023) Received from [facility] Exercise Vital Sign Days of Exercise per Week: 7 days Minutes of Exercise per Session: 20 min Stress: Not on file Social Connections: Not on file Interpersonal Safety: Not At Risk (12/29/2023) Humiliation, Afraid, Rape, and Kick questionnaire Fear of Current or Ex-Partner: No Emotionally Abused: No Physically Abused: No Sexually Abused: No Housing Instability: Low Risk (12/29/2023) Housing Instability Housing Instability: No Family History: Family History Problem Relation Age of Onset Anesthesia problems Neg Hx REVIEW OF SYSTEMS: Review of Systems Constitutional: Negative for fever, chills and fatigue. Respiratory: Negative for shortness of breath. Cardiovascular: Negative for palpitations, chest discomfort and tachycardia. Gastrointestinal: Negative for nausea, vomiting, abdominal pain, diarrhea, constipation and abdominal distention. Genitourinary: Positive for bladder incontinence, dysuria, urgency, hematuria and difficulty urinating. Negative for frequency and flank pain. Neurological: Negative for dizziness, syncope and headaches. Physical Exam: This a 78 y.o. patient Patient Vitals for the past 24 hrs: BP Temp Temp src Pulse Resp SpO2 Height Weight 12/29/231999 -- -- -- 58 14 99 % -- -- 12/29/23 1900 -- 36.8 C (98.2 F) Oral 63 23 95 % -- -- 12/29/23 1800 -- -- -- 54 18 100 % -- -- 12/29/23 1730 -- -- -- 64 19 99 % -- -- 12/29/23 1715 -- -- -- (!) 49 22 99 % -- -- 12/29/23 1700 -- 36.5 C (97.7 F) Oral 56 21 100 % 185.4 cm (6' 1 ) 83.4 kg (183 lb 13.8 oz) 12/29/23 1645 -- -- -- 58 18 100 % -- -- 12/29/23 1600 -- -- -- 58 16 100 % -- -- 12/29/23 1515 -- -- -- (!) 44 15 100 % -- -- 12/29/23 1500 -- -- -- (!) 45 15 100 % -- -- 12/29/23 1430 -- -- -- 62 19 99 % -- -- 12/29/23 1400 -- -- -- (!) 42 14 100 % -- -- 12/29/23 1345 -- -- -- 55 17 100 % -- -- 12/29/23 1330 -- -- -- (!) 49 16 100 % -- -- 12/29/23 1315 -- -- -- (!) 43 (!) 0 100 % -- -- 12/29/23 1300 -- -- -- (!) 46 16 100 % -- -- 12/29/23 1215 -- -- -- 59 10 100 % -- -- 12/29/23 1200 -- -- -- 59 13 100 % -- -- 12/29/23 1145 -- -- -- 62 10 99 % -- -- 12/29/23 1130 -- -- -- 69 15 99 % -- -- 12/29/23 1125 -- -- -- 70 10 99 % -- -- 12/29/23 1115 -- -- -- 71 18 98 % -- -- 12/29/23 1113 -- 36.4 C (97.5 F) Oral 78 14 99 % -- -- 12/29/23 0728 119/60 36.2 C (97.2 F) Temporal 83 18 100 % 185.4 cm (6' 0.99 ) 83.4 kg (183 lb 13.8 oz) Physical Exam Constitutional: General: He is not in acute distress. Eyes: General: No scleral icterus. Pupils: Pupils are equal, round, and reactive to light. Cardiovascular: Rate and Rhythm: Normal rate. Pulses: Normal pulses. Pulmonary: Effort: Pulmonary effort is normal. Abdominal: General: Abdomen is flat. There is no distension. Palpations: Abdomen is soft. Tenderness: There is no abdominal tenderness. There is no right CVA tenderness or left CVA tenderness. Genitourinary: Penis: Normal. Comments: Twenty-two [place] [address] Valero catheter in place draining red urine. Neurological: Mental Status: He is alert. Mental status is at baseline. LABS: Results from last 7 days Lab Units 12/29/23 1140 12/29/23 0751 WBC X10E9/L 7.7 4.3 HEMOGLOBIN g/dL 11.1* 13.9 HEMATOCRIT % 32.8* 41.5 PLATELETS X10E9/L 170 197 Results from last 7 days Lab Units 12/29/23 1335 12/29/23 0751 POTASSIUM mmol/L 3.8 3.9 CHLORIDE mmol/L 109 108 CO2 mmol/L 22 25 BUN mg/dL 18 19 CREATININE mg/dL 0.82 0.93 GLUCOSE mg/dL 131* 107* CALCIUM mg/dL 8.2* 9.2 No results found for: PSA Additional Lab/culture results: Microbiology Results No results found for the last 168 hours. Urinalysis: No results found for: COLOR , TURBIDITY , SPECIFICGRA , NITRITE , PHURINE , LEUKOCYTE , PROTEIN , KETONES , UROBILINOGEN , BLOODHGB Imaging Results: none Assessment and Plan Impression: Faith Penn is a 78 y.o. male who presents Active Problem List Traumatic Valero with continued bleeding from the urethral meatus. Clot retention secondary to traumatic Valero event. BPH with LUTS Plan: [address] [place] coude Valero catheter placed bedside with return of 900 cc of red urine. Patient will likely need Valero catheter for 5-7 days for high volume retention. Three-way Valero catheter currently with in port plugged. Low threshold to start CBI if Valero catheter clots or patient has bladder spasms secondary to clots within the urinary bladder. Hand irrigate Valero catheter as needed for clots. We will begin Flomax nightly for BPH /retention. We will add Levsin for bladder spasms. Urology will continue to follow. WILDER RIZO MD 8:40 PM 12/29/2023 Associated attestation - Alberto Gonzalez Jr., MD - 12/29/2023 11:52 PM EDT Attending Attestation: I saw the patient. I participated and was physically present during the critical/wellington portions of the service. I was directly involved in the management and treatment plan of the patient. I reviewed the resident's note. Additional Notes/Findings: Patient interviewed and examined by me. Moseley red urine in Valero catheter. Penis circumcised without mass lesion or discharge. Insert testicles prostate exam deferred based on recent surgery. History and physical and cardiology notes reviewed. Operative report reviewed. Impressions: 1. History of dementia, angry reaction Traumatic Valero catheter insertion with gross hematuria withanticoagulation right carotid endarterectomy 12/29/2023 with subsequent postoperative urinary retention 900 mL requiring coude tip catheter for replacement 2. benign prostatic hyperplasia , decreased urinary stream, nocturia managed by Dr. Gracia with Flomax 0.4 mg 3. ED complicated by peripheral vascular disease Recommendations: 1. CBI clear 2. Monitor CBC 3. Indwelling Valero catheter for 1 week at least. 4. Restart Flomax 0.4 mg nightly 5. Voiding trial with established urologist or if patient prefers our office. We will follow with you. Thank you very much. I appreciate being asked to help with this patient's care. Alberto Gonzalez Jr., M.D. [facility] [phone] * Francisco Montalvo MD - 12/29/2023 5:12 PM EDT Images from the original note were not included. . [facility] Faith Penn PCP: Candace Giron APRN-LORNA Date of Admission: 12/29/2023 Date of Consultation: 12/29/2023 5:12 PM Consult for: Suspicion for heart block SUBJECTIVE History of Present Illness: Faith Penn is a 78 y.o. male--with a PMHx of hypertension, hyperlipidemia, dementia, bilateral carotid artery stenosis s/p left carotid endarterectomy, TIA (October2023)--who underwent a right carotid endarterectomy today due to symptomatic moderate to high gradeRCA stenosis. The patient tolerated the procedure well and was transported to SICU in stable condition. In the SICU the patient's heart rate was down to 40s so his nurse ordered an EKG due to a suspicion for heart block. During the examination, the patient was resting in his bed comfotably. He denied chest pain, shortness of breath, dizziness, syncope, nausea, vomiting or any other symptoms. Currently on a phenylephrine infusion (per Vascular Surgery to keep systolic BPs elevated in the 120s) the patient's blood pressure is in 120s/40s with a heart rate hovering in the 50s. Previous Medical History: Past Medical History: Diagnosis Date Adverse effect of anesthesia confusion after Anger reaction occ can possibly throw things Anxiety Behavioral and psychological symptoms of dementia ([facility]) Benign prostatic hyperplasia with urinary obstruction Urinary tract symptoms Bilateral carotid artery stenosis Bruises easily Carotid stenosis, right Cognitive impairment mild COVID-19 Dementia (CMS-HCC) short term memory loss- per Depression Hematuria, gross Hyperlipemia Hypertension Hypothyroidism Impotence Memory loss Nocturia Poor urinary stream Positive colorectal cancer screening using Cologuard test TIA (transient ischemic attack) 10/30/2023 difficulty with vision and speech lasting 1-2 mins then slept x1 hour...sypmtoms resolved Previous Surgical History: Past Surgical History: Procedure Laterality Date ADENOIDECTOMY CAROTID ENDARTERECTOMY Left 06/25/2021 COLONOSCOPY x4 ELBOW ARTHROSCOPY ENDARTERECTOMY CAROTID Right 12/29/2023 Performed by Marlys Garcia MD at [facility] TONSILLECTOMY Allergies: Allergies Allergen Reactions Ibuprofen hypertension and Other (See Comments) Other Reaction(s): HYPERTENSION, increases BP Other reaction(s): HYPERTENSION Other reaction(s): HYPERTENSION Other Reaction(s): HYPERTENSION, increases BP Other reaction(s): HYPERTENSION Memantine Headache Nsaids (Non-Steroidal Anti-Inflammatory Drug) Elevates blood pressure Hospital Meds: Current Facility-Administered Medications Medication Dose Route Frequency Provider Last Rate Last Admin acetaminophen (TYLENOL EXTRA STRENGTH) tablet 1,000 mg 1,000 mg oral Q6H PRN Анна Turner MD aspirin EC tablet 81 mg 81 mg oral Daily Анна Turner MD 81 mg at 12/29/23 1332 calcium gluconate IVPB 1000 mg/50 mL (20 mg/mL premix) 1,000 mg intravenous PRN Tico Lombardo MD Or calcium gluconate IVPB 2000 mg/100 mL (20 mg/mL premix) 2,000 mg intravenous PRN Tico Lombardo MD Or calcium gluconate 3,000 mg in sodium chloride 0.9 % 100 mL IVPB 3,000 mg intravenous PRN Tico Lombardo MD clopidogreL (PLAVIX) tablet 75 mg 75 mg oral Daily Анна Turner MD 75 mg at 12/29/23 1332 lactated ringers infusion 50 mL/hr intravenous Continuous Анна Turner MD 50 mL/hr at 12/29/23 1125 50 mL/hr at 12/29/23 1125 magnesium sulfate IVPB 2000 mg/50 mL in iso-osmotic water (40 mg/mL premix) 2,000 mg intravenous PRN Tico Lombardo MD Or magnesium sulfate IVPB 4000 mg/100 mL in iso-osmotic water (40 mg/mL premix) 4,000 mg intravenous PRN Tico Lombardo MD niCARdipine (CARDENE) 25 mg in sodium chloride 0.9 % 50 mL (0.5 mg/mL) infusion 5-15 mg/hr intravenous Continuous Анна Turner MD Held at 12/29/23 1115 ondansetron (PF) (ZOFRAN) injection 4 mg 4 mg intravenous Q8H PRN Анна Turner MD phenylephrine (JESSIKA-SYNEPHRINE) 20 mg in sodium chloride 0.9 % 250 mL (0.08 mg/mL) infusion 0.5-2.5 mcg/kg/min intravenous Continuous Tico Lombardo MD 31.3 mL/hr at 12/29/23 1257 0.5 mcg/kg/min at12/29/23 1257 potassium chloride (K-TAB,KLOR-CON) CR tablet 20-50 mEq 20-50 mEq oral PRN Tico Lombardo MD 30 mEq at 12/29/23 1523 Or potassium chloride (KAYCIEL) 20 mEq/15 mL solution 20-50 mEq 20-50 mEq oral PRN Tico Lombardo MD potassium chloride IVPB 10 mEq/50 mL in water (0.2 mEq/mL premix) 10 mEq intravenous PRN Tico Lombardo MD Or potassium chloride IVPB 10 mEq/100 mL in water (0.1 mEq/mL premix) 10 mEq intravenous PRN Tico Lombardo MD rosuvastatin (CRESTOR) tablet 10 mg 10 mg oral Nightly Анна Turner MD sodium phosphate 20 mmol in sodium chloride 0.9 % 250 mL IVPB 20 mmol intravenous PRN Tico Lombardo MD Or sodium phosphate 20 mmol in sodium chloride 0.9 % 100 mL IVPB 20 mmol intravenous PRN Tico Lombardo MD Or sod phos di, mono-K phos mono (K-PHOS NEUTRAL) 250 mg tablet 2 tablet 2 tablet oral PRN Tico Lombardo MD sodium chloride 0.9 % flush 3 mL 3 mL intravenous PRN Анна Turner MD sodium chloride 0.9 % flush 3 mL 3 mL intravenous Q12H [facility] Анна Turner MD sodium chloride 0.9 % infusion 3 mL/hr intra-arterial Continuous Emanuel Clark MD 3 mL/hr at 12/29/23 1214 3 mL/hr at 12/29/23 1214 Home Meds: Prior to Admission medications Medication Sig Start Date End Date Taking? Authorizing Provider aspirin 81 mg Take 1 tablet (81 mg total) by mouth nightly. Yes Not In System Ref Prov clopidogreL (PLAVIX) 75 mg tablet Take 1 tablet (75 mg total) by mouth in the morning. Patient taking differently: Take 1 tablet (75 mg total) by mouth in the morning. Indications: prevention for a blood clot going to the brain. 11/12/23 Yes Marlys Garcia MD donepeziL (ARICEPT) 10 mg tablet Take 1 tablet (10 mg total) by mouth nightly. For memory 12/17/23 Yes Not In System Ref Prov FLUoxetine (PROzac) 20 mg capsule Take 1 capsule (20 mg total) by mouth in the morning. Indications: repeated episodes of anxiety. 10/12/23 Yes Not In System Ref Prov levothyroxine (SYNTHROID, LEVOTHROID) 50 MCG tablet Take 1 tablet (50 mcg total) by mouth in the morning. Indications: a condition with low thyroid hormone levels. 11/16/23 Yes Not In System Ref Prov losartan (COZAAR) 25 mg tablet Take 1 tablet (25 mg total) by mouth nightly. For HTN 10/12/23 Yes NotIn System Ref Prov melatonin 10 mg tablet extended release Take 20 mg by mouth nightly. 10/30/23 Yes Not In System Ref Prov QUEtiapine (SEROquel) 50 mg tablet Take by mouth 2 (two) times a day Indications: repeated episodesof anxiety. 100mg in AM and 50mg in PM 07/17/23 Yes Not In System Ref Prov simvastatin (ZOCOR) 40 mg tablet Take 1 tablet (40 mg total) by mouth nightly Indications: excessive fat in the blood. 03/03/23 Yes Not In System Ref Prov tamsulosin (FLOMAX) 0.4 mg capsule Take 1 capsule (0.4 mg total) by mouth nightly Indications: enlarged prostate with urination problem. Takes at 7-8pm Yes Not In System Ref Prov Social History: TOBACCO: reports that he has quit smoking. His smoking use included pipe and cigars. He has never been exposed to tobacco smoke. He has never used smokeless tobacco. ETOH: reports that he does not currently use alcohol after a past usage of about 4.0 standard drinks of alcohol per week. DRUGS: reports no history of drug use. OCCUPATION: Family History: Family History Problem Relation Age of Onset Anesthesia problems Neg Hx Review of Systems: Review of Systems Constitutional: Negative for fatigue. HENT: Negative. Eyes: Negative. Respiratory: Negative. Cardiovascular: Negative for chest pain/discomfort, palpitations and syncope. Gastrointestinal: Negative for abdominal pain, nausea and vomiting. Endocrine: Negative. Genitourinary: Negative. Musculoskeletal: Negative. Allergic/Immunologic: Negative. Neurological: Negative for dizziness, syncope and light-headedness. Hematological: Negative. Psychiatric/Behavioral: Negative for agitation and behavioral problems. OBJECTIVE PHYSICAL EXAM Admission Weight: Weight: 83.4 kg (183 lb 13.8 oz) No intake/output data recorded. Weight change: Wt Readings from Last 3 Encounters: 12/29/23 83.4 kg (183 lb 13.8 oz) 12/21/23 83.5 kg (184 lb) 11/12/23 76.7 kg (169 lb 3.2 oz) Physical Exam Constitutional: Appearance: Normal appearance. Eyes: Extraocular Movements: Extraocular movements intact. Cardiovascular: Rate and Rhythm: Normal rate and regular rhythm. Pulses: Normal pulses. Heart sounds: Normal heart sounds. Pulmonary: Effort: Pulmonary effort is normal. No respiratory distress. Breath sounds: Normal breath sounds. Abdominal: General: Bowel sounds are normal. There is no distension. Palpations: Abdomen is soft. Tenderness: There is no abdominal tenderness. Musculoskeletal: General: Normal range of motion. Cervical back: Normal range of motion and neck supple. Skin: General: Skin is warm and dry. Neurological: General: No focal deficit present. Mental Status: He is alert and oriented to person, place, and time. Psychiatric: Mood and Affect: Mood normal. Behavior: Behavior normal. Vitals: Vitals: 12/29/23 1515 12/29/23 1600 12/29/23 1645 12/29/23 1700 BP: Pulse: (!) 44 58 58 56 Resp: 15 16 18 21 Temp: 36.5 C (97.7 F) TempSrc: Oral SpO2: 100% 100% 100% 100% Weight: Height: Admit Weight Weight: 83.4 kg (183 lb 13.8 oz) Last 3 Weights Last 3 Weight Readings 12/29/23 0728 Weight: 83.4 kg (183 lb 13.8 oz) Body mass index is 24.26 kg/m . INTAKE/OUTPUT No intake/output data recorded. Intake/Output Summary (Last 24 hours) at 12/29/2023 1712 Last data filed at 12/29/2023 1523 Gross per 24 hour Intake 1850 ml Output 300 ml Net 1550 ml LAST LABS: CBC: Results from last 7 days Lab Units 12/29/23 1140 12/29/23 0751 WBC X10E9/L 7.7 4.3 HEMOGLOBIN g/dL 11.1* 13.9 HEMATOCRIT % 32.8* 41.5 MCV fL 95 96 PLATELETS X10E9/L 170 197 BMP: Results from last 7 days Lab Units 12/29/23 1335 12/29/23 0751 POTASSIUM mmol/L 3.8 3.9 CHLORIDE mmol/L 109 108 CO2 mmol/L 22 25 BUN mg/dL 18 19 CREATININE mg/dL 0.82 0.93 PT/INR: Results from last 7 days Lab Units 12/29/23 0751 PROTIME sec 12.0 INR 1.0 APTT: MAG: Results from last 7 days Lab Units 12/29/23 1335 MAGNESIUM mg/dL 2.1 Lipid Panel: No results found for: CHOL , TRIG , HDL , CHOLHDLR Liver Panel: No results found for: ALB HgA1C: No results found for: HGBA1C Telemetry: Sinus Rhythm EKG: No results found. LAST ECHO (Within 2 Years) Echo congenital limited W/O contrast Result Date: 12/02/2023 Left Ventricle: Normal left ventricular systolic function with a visually estimated EF of 50 - 55%.Left ventricle size is normal. Moderatel-severe LVH with [...] Doppler was performed. No contrast was given. LAST STRESS (Within 2 Years) No results found. CATH: (Within 2 Years) RADIOLOGY: No results found. ASSESSMENT Symptomatic right carotid artery stenosis s/p right CEA Transient ischemic attack involving right ICA Hypertension Hyperlipidemia Dementia Benign prostatic hyperplasia with urinary obstruction Major depressive disorder PLAN Despite patient's bradycardia, the EKG findings are inconsistent with heart block. Furthermore, thepatient does not demonstrate any symptoms of bradycardia such as syncope, dizziness and dyspnea on exertion. The prolonged bradycardia is likely secondary to hemodynamic depression due to the stretching of the carotid sinus baroreceptors during the carotid endarterectomy. Continuous cardiac monitoring. Continue aspirin, Plavix and rosuvastatin. If bradycardia persists and ECG remains nondiagnostic, will obtain a TTE t/r/o structural heart disease as a cause of bradycardia. Will discuss with neurology if Donepezil is appropriate for the patient given its adverse effects of conduction abnormalities and bradycardia. Cardiology will be following the patient. Francisco Montalvo MD PGY-1 Internal Medicine Resident 12/29/23 5:12 PM [facility] This note was completed using a voice woodworking machinist system. Every effort was made to ensure accuracy. However, inadvertent computerized woodworking machinist errors may be present. Associated attestation - Florencio Worthy MD - 12/29/2023 7:12 PM EDT Images from the original note were not included. [facility] I, FLORENCIO Worthy MD, personally performed the face to face diagnostic evaluation on this patient. My findings are as follows: . History of Present Illness: 78 y.o. male with post carotid surgery bradycardia. On small dose of phenylephrine Allergies: Allergies Allergen Reactions Ibuprofen hypertension and Other (See Comments) Other Reaction(s): HYPERTENSION, increases BP Other reaction(s): HYPERTENSION Other reaction(s): HYPERTENSION Other Reaction(s): HYPERTENSION, increases BP Other reaction(s): HYPERTENSION Memantine Headache Nsaids (Non-Steroidal Anti-Inflammatory Drug) Elevates blood pressure Hospital Meds: Current Facility-Administered Medications Medication Dose Route Frequency Provider Last Rate Last Admin acetaminophen (TYLENOL EXTRA STRENGTH) tablet 1,000 mg 1,000 mg oral Q6H PRN Анна Turner MD aspirin EC tablet 81 mg 81 mg oral Daily Анна Turner MD 81 mg at 12/29/23 1332 calcium gluconate IVPB 1000 mg/50 mL (20 mg/mL premix) 1,000 mg intravenous PRN Tico Lombardo MD Or calcium gluconate IVPB 2000 mg/100 mL (20 mg/mL premix) 2,000 mg intravenous PRN Tico Lombardo MD Or calcium gluconate 3,000 mg in sodium chloride 0.9 % 100 mL IVPB 3,000 mg intravenous PRN Tico Lombardo MD clopidogreL (PLAVIX) tablet 75 mg 75 mg oral Daily Анна Turner MD 75 mg at 12/29/23 1332 lactated ringers infusion 50 mL/hr intravenous Continuous Анна Turner MD 50 mL/hr at 12/29/23 1125 50 mL/hr at 12/29/23 1125 lidocaine (URO-JET) 2 % jelly 1 Application 1 Application urethral Once Wilder Leonides Rizo MD magnesium sulfate IVPB 2000 mg/50 mL in iso-osmotic water (40 mg/mL premix) 2,000 mg intravenous PRN Tico Lombardo MD Or magnesium sulfate IVPB 4000 mg/100 mL in iso-osmotic water (40 mg/mL premix) 4,000 mg intravenous PRN Tico Lombardo MD niCARdipine (CARDENE) 25 mg in sodium chloride 0.9 % 50 mL (0.5 mg/mL) infusion 5-15 mg/hr intravenous Continuous Анна Turner MD Held at 12/29/23 1115 ondansetron (PF) (ZOFRAN) injection 4 mg 4 mg intravenous Q8H PRN Анна Turner MD phenylephrine (JESSIKA-SYNEPHRINE) 20 mg in sodium chloride 0.9 % 250 mL (0.08 mg/mL) infusion 0.5-2.5 mcg/kg/min intravenous Continuous Tico Lombardo MD 31.3 mL/hr at 12/29/23 1257 0.5 mcg/kg/min at12/29/23 1257 potassium chloride (K-TAB,KLOR-CON) CR tablet 20-50 mEq 20-50 mEq oral PRN Tico Lombardo MD 30 mEq at 12/29/23 1523 Or potassium chloride (KAYCIEL) 20 mEq/15 mL solution 20-50 mEq 20-50 mEq oral PRN Tico Lombardo MD potassium chloride IVPB 10 mEq/50 mL in water (0.2 mEq/mL premix) 10 mEq intravenous PRN Tico Lombardo MD Or potassium chloride IVPB 10 mEq/100 mL in water (0.1 mEq/mL premix) 10 mEq intravenous PRN Tico Lombardo MD rosuvastatin (CRESTOR) tablet 10 mg 10 mg oral Nightly Анна Turner MD sodium phosphate 20 mmol in sodium chloride 0.9 % 250 mL IVPB 20 mmol intravenous PRN Tico Lombardo MD Or sodium phosphate 20 mmol in sodium chloride 0.9 % 100 mL IVPB 20 mmol intravenous PRN Tico Lombardo MD Or sod phos di, mono-K phos mono (K-PHOS NEUTRAL) 250 mg tablet 2 tablet 2 tablet oral PRN Tico Lombardo MD sodium chloride 0.9 % flush 3 mL 3 mL intravenous PRN Анна Turner MD sodium chloride 0.9 % flush 3 mL 3 mL intravenous Q12H [facility] Анна Turner MD sodium chloride 0.9 % infusion 3 mL/hr intra-arterial Continuous Emanuel Clark MD 3 mL/hr at 12/29/23 1214 3 mL/hr at 12/29/23 1214 Laboratory CBC: Results from last 7 days Lab Units 12/29/23 1140 12/29/23 0751 WBC X10E9/L 7.7 4.3 HEMOGLOBIN g/dL 11.1* 13.9 HEMATOCRIT % 32.8* 41.5 MCV fL 95 96 PLATELETS X10E9/L 170 197 BMP: Results from last 7 days Lab Units 12/29/23 1335 12/29/23 0751 SODIUM mmol/L 140 141 POTASSIUM mmol/L 3.8 3.9 CHLORIDE mmol/L 109 108 CO2 mmol/L 22 25 BUN mg/dL 18 19 CREATININE mg/dL 0.82 0.93 CALCIUM mg/dL 8.2* 9.2 MAGNESIUM mg/dL 2.1 -- Troponin I Physical Exam Vital Signs: BP 119/60 Pulse 54 Temp 36.5 C (97.7 F) (Oral) Resp 18 Ht 185.4 cm (6' 1 ) Wt 83.4 kg (183 lb 13.8 oz) SpO2 100% BMI 24.26 kg/m O2 Flow Rate (L/min): 2 L/min General appearance: Postoperative Skin: Warm and dry to touch Lungs: Clear to ausculation bilaterally anterior Heart:: RRR Extremities: No edema PLAN 1. Status post left carotid endarterectomy 2. TIA 10/2023 3. Primary hypertension 4. Hyperlipidemia 5. Dementia with cognitive impairment 6. Hypothyroid -on Synthroid 7. Low normal left ventricular systolic function on [facility] echocardiogram 11/2023 Primary cardiologists [facility] Asymptomatic bradycardia after carotid surgery Continue to monitor FLORENCIO Worthy MD This note was completed using a voice woodworking machinist system. Every effort was made to ensure accuracy. However, inadvertent computerized woodworking machinist errors may be present. documented in this encounterSt [facility]Cy[facility]ort[facility] Consult note* Francisco Montalvo MD - 12/29/2023 5:12 PM EDT Images from the original note were not included. . [facility] Faith Penn PCP: Candace Giron APRN-PROGRAM CONSULTANT Date of Admission: 12/29/2023 Date of Consultation: 12/29/2023 5:12 PM Consult for: Suspicion for heart block SUBJECTIVE History of Present Illness: Faith Penn is a 78 y.o. male--with a PMHx of hypertension, hyperlipidemia, dementia, bilateral carotid artery stenosis s/p left carotid endarterectomy, TIA (October2023)--who underwent a right carotid endarterectomy today due to symptomatic moderate to high gradeRCA stenosis. The patient tolerated the procedure well and was transported to SICU in stable condition. In the SICU the patient's heart rate was down to 40s so his nurse ordered an EKG due to a suspicion for heart block. During the examination, the patient was resting in his bed comfotably. He denied chest pain, shortness of breath, dizziness, syncope, nausea, vomiting or any other symptoms. Currently on a phenylephrine infusion (per Vascular Surgery to keep systolic BPs elevated in the 120s) the patient's blood pressure is in 120s/40s with a heart rate hovering in the 50s. Previous Medical History: Past Medical History: Diagnosis Date Adverse effect of anesthesia confusion after Anger reaction occ can possibly throw things Anxiety Behavioral and psychological symptoms of dementia ([facility]) Benign prostatic hyperplasia with urinary obstruction Urinary tract symptoms Bilateral carotid artery stenosis Bruises easily Carotid stenosis, right Cognitive impairment mild COVID-19 Dementia (CMS-HCC) short term memory loss- per Depression Hematuria, gross Hyperlipemia Hypertension Hypothyroidism Impotence Memory loss Nocturia Poor urinary stream Positive colorectal cancer screening using Cologuard test TIA (transient ischemic attack) 10/30/2023 difficulty with vision and speech lasting 1-2 mins then slept x1 hour...sypmtoms resolved Previous Surgical History: Past Surgical History: Procedure Laterality Date ADENOIDECTOMY CAROTID ENDARTERECTOMY Left 06/25/2021 COLONOSCOPY x4 ELBOW ARTHROSCOPY ENDARTERECTOMY CAROTID Right 12/29/2023 Performed by Marlys Garcia MD at [facility] SKIN CANCER EXCISION TONSILLECTOMY Allergies: Allergies Allergen Reactions Ibuprofen hypertension and Other (See Comments) Other Reaction(s): HYPERTENSION, increases BP Other reaction(s): HYPERTENSION Other reaction(s): HYPERTENSION Other Reaction(s): HYPERTENSION, increases BP Other reaction(s): HYPERTENSION Memantine Headache Nsaids (Non-Steroidal Anti-Inflammatory Drug) Elevates blood pressure Hospital Meds: Current Facility-Administered Medications Medication Dose Route Frequency Provider Last Rate Last Admin acetaminophen (TYLENOL EXTRA STRENGTH) tablet 1,000 mg 1,000 mg oral Q6H PRN Анна Turner MD aspirin EC tablet 81 mg 81 mg oral Daily Анна Turner MD 81 mg at 12/29/23 1332 calcium gluconate IVPB 1000 mg/50 mL (20 mg/mL premix) 1,000 mg intravenous PRN Tico Lombardo MD Or calcium gluconate IVPB 2000 mg/100 mL (20 mg/mL premix) 2,000 mg intravenous PRN Tico Lombardo MD Or calcium gluconate 3,000 mg in sodium chloride 0.9 % 100 mL IVPB 3,000 mg intravenous PRN Tico Lombardo MD clopidogreL (PLAVIX) tablet 75 mg 75 mg oral Daily Анна Turner MD 75 mg at 12/29/23 1332 lactated ringers infusion 50 mL/hr intravenous Continuous Анна Turner MD 50 mL/hr at 12/29/23 1125 50 mL/hr at 12/29/23 1125 magnesium sulfate IVPB 2000 mg/50 mL in iso-osmotic water (40 mg/mL premix) 2,000 mg intravenous PRN Tico Lombardo MD Or magnesium sulfate IVPB 4000 mg/100 mL in iso-osmotic water (40 mg/mL premix) 4,000 mg intravenous PRN Tico Lombardo MD niCARdipine (CARDENE) 25 mg in sodium chloride 0.9 % 50 mL (0.5 mg/mL) infusion 5-15 mg/hr intravenous Continuous Анна Turner MD Held at 12/29/23 1115 ondansetron (PF) (ZOFRAN) injection 4 mg 4 mg intravenous Q8H PRN Анна Turner MD phenylephrine (JESSIKA-SYNEPHRINE) 20 mg in sodium chloride 0.9 % 250 mL (0.08 mg/mL) infusion 0.5-2.5 mcg/kg/min intravenous Continuous Tico Lombardo MD 31.3 mL/hr at 12/29/23 1257 0.5 mcg/kg/min at12/29/23 1257 potassium chloride (K-TAB,KLOR-CON) CR tablet 20-50 mEq 20-50 mEq oral PRN Tico Lombardo MD 30 mEq at 12/29/23 1523 Or potassium chloride (KAYCIEL) 20 mEq/15 mL solution 20-50 mEq 20-50 mEq oral PRN Tico Lombardo MD potassium chloride IVPB 10 mEq/50 mL in water (0.2 mEq/mL premix) 10 mEq intravenous PRN Tico Lombardo MD Or potassium chloride IVPB 10 mEq/100 mL in water (0.1 mEq/mL premix) 10 mEq intravenous PRN Tico Lombardo MD rosuvastatin (CRESTOR) tablet 10 mg 10 mg oral Nightly Анна Turner MD sodium phosphate 20 mmol in sodium chloride 0.9 % 250 mL IVPB 20 mmol intravenous PRN Tico Lombardo MD Or sodium phosphate 20 mmol in sodium chloride 0.9 % 100 mL IVPB 20 mmol intravenous PRN Tico Lombardo MD Or sod phos di, mono-K phos mono (K-PHOS NEUTRAL) 250 mg tablet 2 tablet 2 tablet oral PRN Tico Lombardo MD sodium chloride 0.9 % flush 3 mL 3 mL intravenous PRN Анна Turner MD sodium chloride 0.9 % flush 3 mL 3 mL intravenous Q12H [facility] Анна Turner MD sodium chloride 0.9 % infusion 3 mL/hr intra-arterial Continuous Emanuel Clark MD 3 mL/hr at 12/29/23 1214 3 mL/hr at 12/29/23 1214 Home Meds: Prior to Admission medications Medication Sig Start Date End Date Taking? Authorizing Provider aspirin 81 mg Take 1 tablet (81 mg total) by mouth nightly. Yes Not In System Ref Prov clopidogreL (PLAVIX) 75 mg tablet Take 1 tablet (75 mg total) by mouth in the morning. Patient taking differently: Take 1 tablet (75 mg total) by mouth in the morning. Indications: prevention for a blood clot going to the brain. 11/12/23 Yes Marlys Garcia MD donepeziL (ARICEPT) 10 mg tablet Take 1 tablet (10 mg total) by mouth nightly. For memory 12/17/23 Yes Not In System Ref Prov FLUoxetine (PROzac) 20 mg capsule Take 1 capsule (20 mg total) by mouth in the morning. Indications: repeated episodes of anxiety. 10/12/23 Yes Not In System Ref Prov levothyroxine (SYNTHROID, LEVOTHROID) 50 MCG tablet Take 1 tablet (50 mcg total) by mouth in the morning. Indications: a condition with low thyroid hormone levels. 11/16/23 Yes Not In System Ref Prov losartan (COZAAR) 25 mg tablet Take 1 tablet (25 mg total) by mouth nightly. For HTN 10/12/23 Yes NotIn System Ref Prov melatonin 10 mg tablet extended release Take 20 mg by mouth nightly. 10/30/23 Yes Not In System Ref Prov QUEtiapine (SEROquel) 50 mg tablet Take by mouth 2 (two) times a day Indications: repeated episodesof anxiety. 100mg in AM and 50mg in PM 07/17/23 Yes Not In System Ref Prov simvastatin (ZOCOR) 40 mg tablet Take 1 tablet (40 mg total) by mouth nightly Indications: excessive fat in the blood. 03/03/23 Yes Not In System Ref Prov tamsulosin (FLOMAX) 0.4 mg capsule Take 1 capsule (0.4 mg total) by mouth nightly Indications: enlarged prostate with urination problem. Takes at 7-8pm Yes Not In System Ref Prov Social History: TOBACCO: reports that he has quit smoking. His smoking use included pipe and cigars. He has never been exposed to tobacco smoke. He has never used smokeless tobacco. ETOH: reports that he does not currently use alcohol after a past usage of about 4.0 standard drinks of alcohol per week. DRUGS: reports no history of drug use. OCCUPATION: Family History: Family History Problem Relation Age of Onset Anesthesia problems Neg Hx Review of Systems: Review of Systems Constitutional: Negative for fatigue. HENT: Negative. Eyes: Negative. Respiratory: Negative. Cardiovascular: Negative for chest pain/discomfort, palpitations and syncope. Gastrointestinal: Negative for abdominal pain, nausea and vomiting. Endocrine: Negative. Genitourinary: Negative. Musculoskeletal: Negative. Allergic/Immunologic: Negative. Neurological: Negative for dizziness, syncope and light-headedness. Hematological: Negative. Psychiatric/Behavioral: Negative for agitation and behavioral problems. OBJECTIVE PHYSICAL EXAM Admission Weight: Weight: 83.4 kg (183 lb 13.8 oz) No intake/output data recorded. Weight change: Wt Readings from Last 3 Encounters: 12/29/23 83.4 kg (183 lb 13.8 oz) 12/21/23 83.5 kg (184 lb) 11/12/23 76.7 kg (169 lb 3.2 oz) Physical Exam Constitutional: Appearance: Normal appearance. Eyes: Extraocular Movements: Extraocular movements intact. Cardiovascular: Rate and Rhythm: Normal rate and regular rhythm. Pulses: Normal pulses. Heart sounds: Normal heart sounds. Pulmonary: Effort: Pulmonary effort is normal. No respiratory distress. Breath sounds: Normal breath sounds. Abdominal: General: Bowel sounds are normal. There is no distension. Palpations: Abdomen is soft. Tenderness: There is no abdominal tenderness. Musculoskeletal: General: Normal range of motion. Cervical back: Normal range of motion and neck supple. Skin: General: Skin is warm and dry. Neurological: General: No focal deficit present. Mental Status: He is alert and oriented to person, place, and time. Psychiatric: Mood and Affect: Mood normal. Behavior: Behavior normal. Vitals: Vitals: 12/29/23 1515 12/29/23 1600 12/29/23 1645 12/29/23 1700 BP: Pulse: (!) 44 58 58 56 Resp: 15 16 18 21 Temp: 36.5 C (97.7 F) TempSrc: Oral SpO2: 100% 100% 100% 100% Weight: Height: Admit Weight Weight: 83.4 kg (183 lb 13.8 oz) Last 3 Weights Last 3 Weight Readings 12/29/23 0728 Weight: 83.4 kg (183 lb 13.8 oz) Body mass index is 24.26 kg/m . INTAKE/OUTPUT No intake/output data recorded. Intake/Output Summary (Last 24 hours) at 12/29/2023 1712 Last data filed at 12/29/2023 1523 Gross per 24 hour Intake 1850 ml Output 300 ml Net 1550 ml LAST LABS: CBC: Results from last 7 days Lab Units 12/29/23 1140 12/29/23 0751 WBC X10E9/L 7.7 4.3 HEMOGLOBIN g/dL 11.1* 13.9 HEMATOCRIT % 32.8* 41.5 MCV fL 95 96 PLATELETS X10E9/L 170 197 BMP: Results from last 7 days Lab Units 12/29/23 1335 12/29/23 0751 POTASSIUM mmol/L 3.8 3.9 CHLORIDE mmol/L 109 108 CO2 mmol/L 22 25 BUN mg/dL 18 19 CREATININE mg/dL 0.82 0.93 PT/INR: Results from last 7 days Lab Units 12/29/23 0751 PROTIME sec 12.0 INR 1.0 APTT: MAG: Results from last 7 days Lab Units 12/29/23 1335 MAGNESIUM mg/dL 2.1 Lipid Panel: No results found for: CHOL , TRIG , HDL , CHOLHDLR Liver Panel: No results found for: ALB HgA1C: No results found for: HGBA1C Telemetry: Sinus Rhythm EKG: No results found. LAST ECHO (Within 2 Years) Echo congenital limited W/O contrast Result Date: 12/02/2023 Left Ventricle: Normal left ventricular systolic function with a visually estimated EF of 50 - 55%.Left ventricle size is normal. Moderatel-severe LVH with [...] Doppler was performed. No contrast was given. LAST STRESS (Within 2 Years) No results found. CATH: (Within 2 Years) RADIOLOGY: No results found. ASSESSMENT Symptomatic right carotid artery stenosis s/p right CEA Transient ischemic attack involving right ICA Hypertension Hyperlipidemia Dementia Benign prostatic hyperplasia with urinary obstruction Major depressive disorder PLAN Despite patient's bradycardia, the EKG findings are inconsistent with heart block. Furthermore, thepatient does not demonstrate any symptoms of bradycardia such as syncope, dizziness and dyspnea on exertion. The prolonged bradycardia is likely secondary to hemodynamic depression due to the stretching of the carotid sinus baroreceptors during the carotid endarterectomy. Continuous cardiac monitoring. Continue aspirin, Plavix and rosuvastatin. If bradycardia persists and ECG remains nondiagnostic, will obtain a TTE t/r/o structural heart disease as a cause of bradycardia. Will discuss with neurology if Donepezil is appropriate for the patient given its adverse effects of conduction abnormalities and bradycardia. Cardiology will be following the patient. Francisco Montalvo MD PGY-1 Internal Medicine Resident 12/29/23 5:12 PM [facility] This note was completed using a voice woodworking machinist system. Every effort was made to ensure accuracy. However, inadvertent computerized woodworking machinist errors may be present. Associated attestation - Florencio Worthy MD - 12/29/2023 7:12 PM EDT Images from the original note were not included. [facility]ARDIOLOG[facility] I, FLORENCIO Worthy MD, personally performed the face to face diagnostic evaluation on this patient. My findings are as follows: . History of Present Illness: 78 y.o. male with post carotid surgery bradycardia. On small dose of phenylephrine Allergies: Allergies Allergen Reactions Ibuprofen hypertension and Other (See Comments) Other Reaction(s): HYPERTENSION, increases BP Other reaction(s): HYPERTENSION Other reaction(s): HYPERTENSION Other Reaction(s): HYPERTENSION, increases BP Other reaction(s): HYPERTENSION Memantine Headache Nsaids (Non-Steroidal Anti-Inflammatory Drug) Elevates blood pressure Hospital Meds: Current Facility-Administered Medications Medication Dose Route Frequency Provider Last Rate Last Admin acetaminophen (TYLENOL EXTRA STRENGTH) tablet 1,000 mg 1,000 mg oral Q6H PRN Анна Turner MD aspirin EC tablet 81 mg 81 mg oral Daily Анна Turner MD 81 mg at 12/29/23 1332 calcium gluconate IVPB 1000 mg/50 mL (20 mg/mL premix) 1,000 mg intravenous PRN Tico Lombardo MD Or calcium gluconate IVPB 2000 mg/100 mL (20 mg/mL premix) 2,000 mg intravenous PRN Tico Lombardo MD Or calcium gluconate 3,000 mg in sodium chloride 0.9 % 100 mL IVPB 3,000 mg intravenous PRN Tico Lombardo MD clopidogreL (PLAVIX) tablet 75 mg 75 mg oral Daily Анна Turner MD 75 mg at 12/29/23 1332 lactated ringers infusion 50 mL/hr intravenous Continuous Анна Turner MD 50 mL/hr at 12/29/23 1125 50 mL/hr at 12/29/23 1125 lidocaine (URO-JET) 2 % jelly 1 Application 1 Application urethral Once Wilder Rizo MD magnesium sulfate IVPB 2000 mg/50 mL in iso-osmotic water (40 mg/mL premix) 2,000 mg intravenous PRN Tioc Lombardo MD Or magnesium sulfate IVPB 4000 mg/100 mL in iso-osmotic water (40 mg/mL premix) 4,000 mg intravenous PRN Tico Lombardo MD niCARdipine (CARDENE) 25 mg in sodium chloride 0.9 % 50 mL (0.5 mg/mL) infusion 5-15 mg/hr intravenous Continuous Анна Turner MD Held at 12/29/23 1115 ondansetron (PF) (ZOFRAN) injection 4 mg 4 mg intravenous Q8H PRN Анна Turner MD phenylephrine (JESSIKA-SYNEPHRINE) 20 mg in sodium chloride 0.9 % 250 mL (0.08 mg/mL) infusion 0.5-2.5 mcg/kg/min intravenous Continuous Tico Lombardo MD 31.3 mL/hr at 12/29/23 1257 0.5 mcg/kg/min at12/29/23 1257 potassium chloride (K-TAB,KLOR-CON) CR tablet 20-50 mEq 20-50 mEq oral PRN Tico Lombardo MD 30 mEq at 12/29/23 1523 Or potassium chloride (KAYCIEL) 20 mEq/15 mL solution 20-50 mEq 20-50 mEq oral PRN Tico Lombardo MD potassium chloride IVPB 10 mEq/50 mL in water (0.2 mEq/mL premix) 10 mEq intravenous PRN Tico Lombardo MD Or potassium chloride IVPB 10 mEq/100 mL in water (0.1 mEq/mL premix) 10 mEq intravenous PRN Tico Lombardo MD rosuvastatin (CRESTOR) tablet 10 mg 10 mg oral Nightly Анна Turner MD sodium phosphate 20 mmol in sodium chloride 0.9 % 250 mL IVPB 20 mmol intravenous PRN Tico Lombardo MD Or sodium phosphate 20 mmol in sodium chloride 0.9 % 100 mL IVPB 20 mmol intravenous PRN Tico Lombardo MD Or sod phos di, mono-K phos mono (K-PHOS NEUTRAL) 250 mg tablet 2 tablet 2 tablet oral PRN Tico Lombardo MD sodium chloride 0.9 % flush 3 mL 3 mL intravenous PRN Анна Turner MD sodium chloride 0.9 % flush 3 mL 3 mL intravenous Q12H CASH Анна Turner MD sodium chloride 0.9 % infusion 3 mL/hr intra-arterial Continuous Emanuel Clark MD 3 mL/hr at 12/29/23 1214 3 mL/hr at 12/29/23 1214 Laboratory CBC: Results from last 7 days Lab Units 12/29/23 1140 12/29/23 0751 WBC X10E9/L 7.7 4.3 HEMOGLOBIN g/dL 11.1* 13.9 HEMATOCRIT % 32.8* 41.5 MCV fL 95 96 PLATELETS X10E9/L 170 197 BMP: Results from last 7 days Lab Units 12/29/23 1335 12/29/23 0751 SODIUM mmol/L 140 141 POTASSIUM mmol/L 3.8 3.9 CHLORIDE mmol/L 109 108 CO2 mmol/L 22 25 BUN mg/dL 18 19 CREATININE mg/dL 0.82 0.93 CALCIUM mg/dL 8.2* 9.2 MAGNESIUM mg/dL 2.1 -- Troponin I Physical Exam Vital Signs: BP 119/60 Pulse 54 Temp 36.5 C (97.7 F) (Oral) Resp 18 Ht 185.4 cm (6' 1 ) Wt 83.4 kg (183 lb 13.8 oz) SpO2 100% BMI 24.26 kg/m O2 Flow Rate (L/min): 2 L/min General appearance: Postoperative Skin: Warm and dry to touch Lungs: Clear to ausculation bilaterally anterior Heart:: RRR Extremities: No edema PLAN 1. Status post left carotid endarterectomy 2. TIA 10/2023 3. Primary hypertension 4. Hyperlipidemia 5. Dementia with cognitive impairment 6. Hypothyroid -on Synthroid 7. Low normal left ventricular systolic function on Merc echocardiogram 11/2023 Primary cardiologists [facility] Asymptomatic bradycardia after carotid surgery Continue to monitor FLORENCIO Worthy MD This note was completed using a voice woodworking machinist system. Every effort was made to ensure accuracy. However, inadvertent computerized woodworking machinist errors may be present. [employer] [id number] Procedure note* Op Note - Анна Turner MD - 12/29/2023 8:35 AM EDT Images from the original note were not included. [facility] [place] Vascular Service Operative Note DATE OF PROCEDURE: 12/29/2023 PATIENT NAME: Faith Penn SURGEON: Surgeons and Role: * Marlys Garcia MD - Primary ASSISTANTS: Dr. Анна Turner, Vascular Surgery Fellow STAFF: Steel Wool Machine Operator Primary: Danny Salgado RN Scrub Person: ST Margie Fellow: Анна Turner MD Scrub Orientee: Alina Milan RN PRE-OP DIAGNOSIS: Symptomatic right carotid artery stenosis POST-OP DIAGNOSIS: As above PROCEDURE: right carotid endarterectomy w/ patch angioplasty ANESTHESIA: GETA EBL: 50 mL FLUIDS: 1200 mL crystalloid COMPLICATIONS: None CONDITION: good WOUND CLASS: 1 ADDITIONS (Drains, Specimens, Implants): Drains: * No LDAs found * Specimens: * No specimens in log * Implants: Implant Name Type Inv. Item Serial No. Manager Credit Collections Lot No. LRB No. Used Action PATCH CV 8X.8CM N-PYRG TPR END PHOTOFIX DECELLULARIZED BVN RPL [id number] - [id number] Graft PATCH CV 8X.8CM N-PYRG TPR END PHOTOFIX DECELLULARIZED BVN RPL [id number] [facility] [id number] Right 1 Implanted HISTORY: The patient is a 78 year old male with Symptomatic right carotid artery stenosis (approx 50% per CTA). Management options were discussed and patient elected to pursue right carotid endarterectomy. CONSENT: The planned procedure was explained in detail including discussion of all associated risks/benefits. Alternative options were also discussed in depth. Risks including pain, bleeding/hematoma, SSI/abscess, damage to surrounding tissues, nerve injury, cardiopulmonary complications, renal complications, CVA, and were described. All questions and concerns were addressed and informed consent wasobtained, witnessed, and placed in the chart. The decision was made to proceed with intervention asplanned. PROCEDURE: The patient was brought to the operative suite and placed in the supine position. A time out was completed confirming the correct patient, proper position, and procedure to be performed. General anesthesia was induced. A shoulder roll was placed. Both arms were tucked and care was taken to pad all p ressure points. A Valero catheter was placed. The patient was then prepped and draped in the standard sterile fashion. Pre-operative ancef was administered. The right neck was evaluated and a vertical incision was planned along the anterior border of the right SCM muscle. A longitudinal skin incision was made using a #15 scalpel and deepened through the dermis and subcutaneous tissue using electrocautery. The platysma was then encountered and divided using electrocautery allowing for identification of the sternocleidomastoid muscle and mobilized along its medial border and reflected laterally. Self-retaining Weitlaner retractors were then placed toaid in exposure. The internal jugular vein was identified and sharply skeletonized. Several crossing venous branches were ligated using 3-0 and 4-0 silk and divided. The internal jugular vein was retracted laterally exposing the right common carotid artery. The common carotid and internal/external carotid artery bifurcation were sharply dissected; this was difficult due to adherent fibrotic tissue between the arteries and surrounding tissues. The internal carotid artery was then dissected distally along its length demonstrating a high bifurcation. Care was taken to dissect several crossing venous branches distally which were highly adherent to the vessel. Control of all small venous using sources was obtained using combination of silk ties and hemostatic clips. Next, the internal carotid artery was mobilized along its length and the proximal external carotid artery was mobilized immediately distal to the bifurcation. Proximal and distal control of the internal carotid artery and common carotid artery was obtained using vessel loops. Careful attention was paid to preserve the vagus and hypoglossal nerves during dissection. Intravenous heparin was then administered and given systemic ally to allow adequate time to circulate prior to arterial occlusion. The internal carotid artery, external carotid artery and common carotid artery were occluded, respectively. Next, a longitudinal arteriotomy was made along the common carotid artery and extended into the internal carotid artery beyond the bifurcation using Araujo scissors. The patient was noted to have a focal area of calcified plaque identified at the carotid bulb extending into the internal carotid artery. A Sundt shunt was inserted into the internal carotid artery and back bleeding was noted to be brisk. The shunt was secured with a clamp distally and the free end of the shunt was then inserted into the common carotid artery and secured with a clamp. Total clamp time was approx 2 minutes. Flow within the shunt was confirmed with a Doppler. Next, the right internal carotid artery was inspected and a large plaque was identified at the distal common carotid artery and internal carotid and common carotid artery bifurcation with extension into the internal carotid artery The endarterectomy plane was developed using a [place] elevator. The plaque was feathered distally into the ICA past the posterior tongue of the plaque and was sharply transected. The endarterectomy plane was then further developed proximally using the [place] elevator. The plaque was elevated and transected proximally completing the right carotid artery endarterectomy.Eversion endarterectomy was then completed at the right ECA. All plaque was removed and sent to pathology for evaluation. All small pieces of plaque tissue were removed from the endarterectomy site. Copious irrigation w/ heparinized saline solution was used to clean the site. Patch angioplasty was then completed using bovine pericardial patch which was sutured in place using 6-0 Prolene x 2 in the standard circumferential running fashion. Immediately prior to completion of the suture line, the shunt was removed and the vessels were allowed to forward and back bleed. The area was flushed againwith heparinized saline solution. The suture line was then completed. Flow was restored to the external carotid artery followed by the internal carotid artery after several systolic beats. Total clamp time after removal of shunt and prior to synagogue of flow was approximately 3 mins. Flow in thedistal internal carotid was confirmed with Doppler. Hemostasis ensured using electrocautery. The incision was then closed in layers.The platysma was re-approximated using 3-0 Vicryl in running fashion. The skin was closed w/ 4-0 Monocryl in the standard running subcuticular fashion. Steri strips were. All sponge and instrument counts were correct at the end of the procedure. The patient tolerated the procedure well. was awakened from anesthesia, had no gross neuro deficits, and was transported to SICU in stable condition. Dr. Garcia was present for the entire procedure. Associated attestation - Marlys Garcia MD - 12/29/2023 11:38 AM EDT I was present and performed all the critical portions of the procedure, performed structured guidance at appropriate times, and was always immediately available. Marlys Garcia MD, [facility] Vascular Surgery [facility] Work Phone: [phone] Procedure note* Brief Op Note - Анна Turner MD - 12/29/2023 8:35 AM EDT Images from the original note were not included. [facility] [place] Vascular Service Brief Op Note NAME: Faith Penn : 1945 PROCEDURE DATE: 12/29/2023 SURGEON: Surgeons and Role: * Marlys Garcia MD - Primary ASSISTANTS: Dr. Анна Turner, Vascular Surgery Fellow STAFF: Steel Wool Machine Operator Primary: Danny Salgado RN Scrub Person: ST Margie Fellow: Анна Turner MD Scrub Orientee: Alina Milan RN PRE-OP DIAGNOSIS: CAROTID STENOSIS RIGHT POST-OP DIAGNOSIS: * No Diagnosis Codes entered * PROCEDURE DETAILS: Procedure(s): ENDARTERECTOMY CAROTID (Right) - Wound Class: Clean - Incision Closure: Deep and Superficial Layers ANESTHESIA TYPE: General * No Diagnosis Codes entered * COMPLICATIONS: none ADDITIONS (Drains, Specimens, Implants): Drains: * No LDAs found * Specimens: * No specimens in log * Implants: Implant Name Type Inv. Item Serial No. Manager Credit Collections Lot No. LRB No. Used Action PATCH CV 8X.8CM N-PYRG TPR END PHOTOFIX DECELLULARIZED BVN RPL [id number] - [id number] Graft PATCH CV 8X.8CM N-PYRG TPR END PHOTOFIX DECELLULARIZED BVN RPL [id number] [employer] [id number] Right 1 Implanted ESTIMATED BLOOD LOSS: 50 mL CONDITION: good WOUND CLASS: clean FINDINGS: Focal stenosis See dictated procedure report for full details. Dr. Анна Turner [facility] [id number] History and physical note* Marlys Garcia MD - 12/29/2023 8:32 AM EDT Images from the original note were not included. GENERAL HISTORY AND PHYSICAL: 12/29/23 PROBLEM: Principal Problem: Stenosis of right carotid artery HISTORY OF PRESENT ILLNESS: Faith Penn is an 78 y.o. White or male. Symptomatic moderate to high grade R ICA stenosis PAST MEDICAL HISTORY: Past Medical History: Diagnosis Date Adverse effect of anesthesia confusion after Anger reaction occ can possibly throw things Anxiety Behavioral and psychological symptoms of dementia (CMS-HCC) Benign prostatic hyperplasia with urinary obstruction Urinary tract symptoms Bilateral carotid artery stenosis Bruises easily Carotid stenosis, right Cognitive impairment mild COVID-19 Dementia (CMS-HCC) short term memory loss- per Depression Hematuria, gross Hyperlipemia Hypertension Hypothyroidism Impotence Memory loss Nocturia Poor urinary stream Positive colorectal cancer screening using Cologuard test TIA (transient ischemic attack) 10/30/2023 difficulty with vision and speech lasting 1-2 mins then slept x1 hour...sypmtoms resolved PAST SURGICAL HISTORY: Past Surgical History: Procedure Laterality Date ADENOIDECTOMY CAROTID ENDARTERECTOMY Left 06/25/2021 COLONOSCOPY x4 ELBOW ARTHROSCOPY SKIN CANCER EXCISION TONSILLECTOMY Travel History Travel Screening Question Response Have you been in contact with someone who was sick? No / Unsure Do you have any of the following new or worsening symptoms? None of these Have you traveled internationally or domestically in the last month? No Travel History Travel since 11/29/23 No documented travel since 11/29/23 SOCIAL HISTORY: Social History Socioeconomic History Marital status: Spouse name: Not on file Number of children: Not on file Years of education: Not on file Highest education level: Not on file Occupational History Not on file Tobacco Use Smoking status: Former Types: Pipe, Cigars Passive exposure: Never Smokeless tobacco: Never Vaping Use Vaping status: Never Used Substance and Sexual Activity Alcohol use: Not Currently Alcohol/week: 4.0 standard drinks of alcohol Types: 4 Glasses of wine per week Drug use: Never Sexual activity: Defer Other Topics Concern Not on file Social History Narrative Not on file Social Determinants of Health Financial Resource Strain: Low Risk (11/16/2023) Received from [facility] Overall Financial Resource Strain (CARDIA) Difficulty of Paying Living Expenses: Not hard at all Food Insecurity: No Food Insecurity (12/21/2023) Hunger Screening Food Insecurity - Worry: Never True Food Insecurity - Inability: Never True Transportation Needs: Unknown (11/16/2023) Received from [facility] PRAPARE - Transportation Lack of Transportation (Medical): Not on file Lack of Transportation (Non-Medical): No Physical Activity: Insufficiently Active (04/27/2023) Received from [facility] Exercise Vital Sign Days of Exercise per Week: 7 days Minutes of Exercise per Session: 20 min Stress: Not on file Social Connections: Not on file Interpersonal Safety: Unknown (07/30/2023) Received from [facility] Safety & Environment Fear of Current or Ex-Partner: Not on file Emotionally Abused: Not on file Physically Abused: Not on file Sexually Abused: Not on file Physically or Sexually Abused: Not on file Housing Instability: Unknown (11/16/2023) Received from [facility] Housing Stability Vital Sign Unable to Pay for Housing in the Last Year: Not on file Number of Places Lived in the Last Year: Not on file In the last 12 months, was there a time when you did not have a steady place to sleep or slept in ashelter (including now)?: No ALLERGIES: Allergies Allergen Reactions Ibuprofen hypertension and Other (See Comments) Other Reaction(s): HYPERTENSION, increases BP Other reaction(s): HYPERTENSION Other reaction(s): HYPERTENSION Other Reaction(s): HYPERTENSION, increases BP Other reaction(s): HYPERTENSION Memantine Headache Nsaids (Non-Steroidal Anti-Inflammatory Drug) Elevates blood pressure HOME MEDICATIONS: Medications Prior to Admission Medication Sig Dispense Refill Last Dose aspirin 81 mg Take 1 tablet (81 mg total) by mouth nightly. 12/28/2023 at 2100 clopidogreL (PLAVIX) 75 mg tablet Take 1 tablet (75 mg total) by mouth in the morning. (Patient taking differently: Take 1 tablet (75 mg total) by mouth in the morning. Indications: prevention for a blood clot going to the brain.) 30 tablet 12 12/29/2023 at 0700 donepeziL (ARICEPT) 10 mg tablet Take 1 tablet (10 mg total) by mouth nightly. For memory 12/28/2023t 2099 FLUoxetine (PROzac) 20 mg capsule Take 1 capsule (20 mg total) by mouth in the morning. Indications: repeated episodes of anxiety. 12/29/2023 at 0700 levothyroxine (SYNTHROID, LEVOTHROID) 50 MCG tablet Take 1 tablet (50 mcg total) by mouth in the morning. Indications: a condition with low thyroid hormone levels. 12/29/2023 at 0700 losartan (COZAAR) 25 mg tablet Take 1 tablet (25 mg total) by mouth nightly. For HTN 12/28/2023 at 2100 melatonin 10 mg tablet extended release Take 20 mg by mouth nightly. 12/28/2023 at 2100 QUEtiapine (SEROquel) 50 mg tablet Take by mouth 2 (two) times a day Indications: repeated episodesof anxiety. 100mg in AM and 50mg in PM 12/29/2023 at 0700 simvastatin (ZOCOR) 40 mg tablet Take 1 tablet (40 mg total) by mouth nightly Indications: excessive fat in the blood. 12/28/2023 at 2100 tamsulosin (FLOMAX) 0.4 mg capsule Take 1 capsule (0.4 mg total) by mouth nightly Indications: enlarged prostate with urination problem. Takes at 7-8pm 12/28/2023 at 2100 IMMUNIZATIONS: Immunization History Administered Date(s) Administered COVID-19, mRNA, LNP-S, PF, 30mcg/0.3mL Dose 07/06/2020, 07/27/2020, 03/05/2021 Covid-19, Mrna, Lnp-s, Bivalent, Pf, 50mcg/0.5ml or 25mcg/0.25ml 03/27/2022 Covid-19, Mrna, Lnp-s, Pf, 30 Mcg/0.3 Ml Dose, Jose Rafael-sucrose 12/27/2021 REVIEW OF SYSTEMS: Review of Systems All other systems reviewed and are negative. No LMP for male patient. BP 119/60 Pulse 83 Temp 36.2 C (97.2 F) (Temporal) Resp 18 Ht 185.4 cm (6' 0.99 ) Wt 83.4kg (183 lb 13.8 oz) SpO2 100% BMI 24.26 kg/m O2 Device: None (Room air) PHYSICAL EXAM: Physical Exam Constitutional He is oriented to person, place, and time. HENT Head Normocephalic and atraumatic. Ears Right Ear: External ear normal. Left Ear: External ear normal. Nose Nose normal. Eyes: Conjunctivae and EOM are normal. Pupils are equal, round, and reactive to light. Neck Normal range of motion. Neck supple. Cardiovascular: Normal rate and regular rhythm. Heart Sounds: normal heart sounds. Pulmonary/Chest: Effort normal. Abdominal: Bowel sounds are normal. Soft. Musculoskeletal: General: Normal range of motion. Cervical back: Normal range of motion and neck supple. Neurological He is alert and oriented to person, place, and time. Skin: Skin is warm and dry. Psychiatric: He has a normal mood and affect. His behavior is normal. Judgment and thought content normal. ASSESSMENT: Symptomatic R ICA stenosis PLAN: R CEA [facility] [employer] [id number] History and physical note* Marlys Garcia MD - 12/29/2023 8:32 AM EDT Images from the original note were not included. GENERAL HISTORY AND PHYSICAL: 12/29/23 PROBLEM: Principal Problem: Stenosis of right carotid artery HISTORY OF PRESENT ILLNESS: Faith Penn is an 78 y.o. White or male. Symptomatic moderate to high grade R ICA stenosis PAST MEDICAL HISTORY: Past Medical History: Diagnosis Date Adverse effect of anesthesia confusion after Anger reaction occ can possibly throw things Anxiety Behavioral and psychological symptoms of dementia ([facility]) Benign prostatic hyperplasia with urinary obstruction Urinary tract symptoms Bilateral carotid artery stenosis Bruises easily Carotid stenosis, right Cognitive impairment mild COVID-19 Dementia ([facility]) short term memory loss- per Depression Hematuria, gross Hyperlipemia Hypertension Hypothyroidism Impotence Memory loss Nocturia Poor urinary stream Positive colorectal cancer screening using Cologuard test TIA (transient ischemic attack) 10/30/2023 difficulty with vision and speech lasting 1-2 mins then slept x1 hour...sypmtoms resolved PAST SURGICAL HISTORY: Past Surgical History: Procedure Laterality Date ADENOIDECTOMY CAROTID ENDARTERECTOMY Left 06/25/2021 COLONOSCOPY x4 ELBOW ARTHROSCOPY SKIN CANCER EXCISION TONSILLECTOMY Travel History Travel Screening Question Response Have you been in contact with someone who was sick? No / Unsure Do you have any of the following new or worsening symptoms? None of these Have you traveled internationally or domestically in the last month? No Travel History Travel since 11/29/23 No documented travel since 11/29/23 SOCIAL HISTORY: Social History Socioeconomic History Marital status: Spouse name: Not on file Number of children: Not on file Years of education: Not on file Highest education level: Not on file Occupational History Not on file Tobacco Use Smoking status: Former Types: Pipe, Cigars Passive exposure: Never Smokeless tobacco: Never Vaping Use Vaping status: Never Used Substance and Sexual Activity Alcohol use: Not Currently Alcohol/week: 4.0 standard drinks of alcohol Types: 4 Glasses of wine per week Drug use: Never Sexual activity: Defer Other Topics Concern Not on file Social History Narrative Not on file Social Determinants of Health Financial Resource Strain: Low Risk (11/16/2023) Received from [facility] Overall Financial Resource Strain (CARDIA) Difficulty of Paying Living Expenses: Not hard at all Food Insecurity: No Food Insecurity (12/21/2023) Hunger Screening Food Insecurity - Worry: Never True Food Insecurity - Inability: Never True Transportation Needs: Unknown (11/16/2023) Received from [facility] PRAPARE - Transportation Lack of Transportation (Medical): Not on file Lack of Transportation (Non-Medical): No Physical Activity: Insufficiently Active (04/27/2023) Received from [facility] Exercise Vital Sign Days of Exercise per Week: 7 days Minutes of Exercise per Session: 20 min Stress: Not on file Social Connections: Not on file Interpersonal Safety: Unknown (07/30/2023) Received from [facility] Safety & Environment Fear of Current or Ex-Partner: Not on file Emotionally Abused: Not on file Physically Abused: Not on file Sexually Abused: Not on file Physically or Sexually Abused: Not on file Housing Instability: Unknown (11/16/2023) Received from [facility] Housing Stability Vital Sign Unable to Pay for Housing in the Last Year: Not on file Number of Places Lived in the Last Year: Not on file In the last 12 months, was there a time when you did not have a steady place to sleep or slept in [place] (including now)?: No ALLERGIES: Allergies Allergen Reactions Ibuprofen hypertension and Other (See Comments) Other Reaction(s): HYPERTENSION, increases BP Other reaction(s): HYPERTENSION Other reaction(s): HYPERTENSION Other Reaction(s): HYPERTENSION, increases BP Other reaction(s): HYPERTENSION Memantine Headache Nsaids (Non-Steroidal Anti-Inflammatory Drug) Elevates blood pressure HOME MEDICATIONS: Medications Prior to Admission Medication Sig Dispense Refill Last Dose aspirin 81 mg Take 1 tablet (81 mg total) by mouth nightly. 12/28/2023 at 2100 clopidogreL (PLAVIX) 75 mg tablet Take 1 tablet (75 mg total) by mouth in the morning. (Patient taking differently: Take 1 tablet (75 mg total) by mouth in the morning. Indications: prevention for a blood clot going to the brain.) 30 tablet 12 12/29/2023 at 0700 donepeziL (ARICEPT) 10 mg tablet Take 1 tablet (10 mg total) by mouth nightly. For memory 12/28/2023t 2099 FLUoxetine (PROzac) 20 mg capsule Take 1 capsule (20 mg total) by mouth in the morning. Indications: repeated episodes of anxiety. 12/29/2023 at 0700 levothyroxine (SYNTHROID, LEVOTHROID) 50 MCG tablet Take 1 tablet (50 mcg total) by mouth in the morning. Indications: a condition with low thyroid hormone levels. 12/29/2023 at 0700 losartan (COZAAR) 25 mg tablet Take 1 tablet (25 mg total) by mouth nightly. For HTN 12/28/2023 at 2100 melatonin 10 mg tablet extended release Take 20 mg by mouth nightly. 12/28/2023 at 2100 QUEtiapine (SEROquel) 50 mg tablet Take by mouth 2 (two) times a day Indications: repeated episodesof anxiety. 100mg in AM and 50mg in PM 12/29/2023 at 0700 simvastatin (ZOCOR) 40 mg tablet Take 1 tablet (40 mg total) by mouth nightly Indications: excessive fat in the blood. 12/28/2023 at 2100 tamsulosin (FLOMAX) 0.4 mg capsule Take 1 capsule (0.4 mg total) by mouth nightly Indications: enlarged prostate with urination problem. Takes at 7-8pm 12/28/2023 at 2100 IMMUNIZATIONS: Immunization History Administered Date(s) Administered COVID-19, mRNA, LNP-S, PF, 30mcg/0.3mL Dose 07/06/2020, 07/27/2020, 03/05/2021 Covid-19, Mrna, Lnp-s, Bivalent, Pf, 50mcg/0.5ml or 25mcg/0.25ml 03/27/2022 Covid-19, Mrna, Lnp-s, Pf, 30 Mcg/0.3 Ml Dose, Jose Rafael-sucrose 12/27/2021 REVIEW OF SYSTEMS: Review of Systems All other systems reviewed and are negative. No LMP for male patient. BP 119/60 Pulse 83 Temp 36.2 C (97.2 F) (Temporal) Resp 18 Ht 185.4 cm (6' 0.99 ) Wt 83.4kg (183 lb 13.8 oz) SpO2 100% BMI 24.26 kg/m O2 Device: None (Room air) PHYSICAL EXAM: Physical Exam Constitutional He is oriented to person, place, and time. HENT Head Normocephalic and atraumatic. Ears Right Ear: External ear normal. Left Ear: External ear normal. Nose Nose normal. Eyes: Conjunctivae and EOM are normal. Pupils are equal, round, and reactive to light. Neck Normal range of motion. Neck supple. Cardiovascular: Normal rate and regular rhythm. Heart Sounds: normal heart sounds. Pulmonary/Chest: Effort normal. Abdominal: Bowel sounds are normal. Soft. Musculoskeletal: General: Normal range of motion. Cervical back: Normal range of motion and neck supple. Neurological He is alert and oriented to person, place, and time. Skin: Skin is warm and dry. Psychiatric: He has a normal mood and affect. His behavior is normal. Judgment and thought content normal. ASSESSMENT: Symptomatic R ICA stenosis PLAN: R CEA documented in this encounterOhioHealth [facility], [facility], [facility] CenterUltimate [facility] Network [id number] Instructions* Pre- Procedure Instructions - Dinaelys Cole RN - 12/21/2023 8:00 AM EDT Your surgery/procedure is scheduled at [facility] on 12/29/23 at 0830 Arrival [id number] [facility] Address: [address] [place] [address] [address] Parking lot located on [facility]. Report to the Entrance B. Check in at the information desk the surgery. The waiting room located on the second floor. If you have any questions prior to surgery, please call Pre-Admission Clinic at [phone] between 7:30 am and 4:30 pm Thursday through Thursday. If you have questions the morning of surgery, please call the Pre-op Department at [phone]. Notify your SURGEON if you develop any illness such as a cold, cough, fever, sore throat, vomiting or are hospitalized between now and your surgery. CONTINUE TO TAKE YOUR MEDICATIONS PRESCRIBED. DO NOT STOP YOUR PRESCRIBED MEDICATIONS UNLESS DIRECTED BY YOUR PRESCRIBING PHYSICIAN Take the following medications the morning of surgery with a sip of water: per Dr Garcia office Weight loss medications: na Take inhalers as prescribed the morning of surgery. . Blood thinners: Medications such as Coumadin, Heparin, Aspirin, Plavix, Eliquis, Pradaxa) Please contact your physician regarding a stop/hold date for these medications. Diabetics: If you take insulin, contact your prescribing doctor for instructions on how to manage this the night before and the morning of surgery. Non-steriodal Anti-Inflammatory Drugs (NSAIDS)- Stop 3 days prior to surgery unless otherwise directed by your surgeon. Vitamins/Herbal Products: You may continue to take your prescribed vitamins such as potassium, iron, vitamin B, vitamin C, or multivitamin unless specifically instructed by your surgeon to stop. STOPtaking all herbal products/teas one week prior to your surgery. Marijuana: Stop marijuana 72 hours prior to surgery, stop CBD oil 48 hours prior to surgery. If you have been given bowel prep instructions by your surgeon, please call the surgeon's office with any questions about these instructions. What do I do the day of Surgery? Age 2 through adult - Stop all solids by midnight, You may have clear liquids up to 2 hours before surgery, unless otherwise instructed by your surgeon. Clear liquids are: water, sports drinks such as Gatorade or G2, or apple juice. You may NOT have: tube feedings, dairy products, alcoholic beverages, orange juice, or any liquids with solids or pulp in it. If applicable, shower again with CHG soap the morning of your surgery. If you received a green plastic bracelet, bring it with you the day of surgery and your nurse will put it on you. In order to help prevent infection post-operatively, you may be asked to use a CHG mouthwash when you arrive to the Pre-op area. Your nurse will provide instruction the morning of. What do I need to do to prepare for surgery? If you will be going home the same day as your surgery, arrange for an adult over [address] Riding in a bus or taxi by yourself is not permitted. You should not smoke or drink alcohol 24 hours before your surgery. Alcohol thins the blood and may cause bleeding problems during surgery. Smoking increases the risk of breathing problems after surgery. If you have been assigned NINA Education by your surgeon's office, please complete this education prior to your surgery. For questions regarding NINA education, reach out to your surgeon's office. If you have been given a prescription for occupational, physical or speech therapy, please set up these appointments before your procedure. If you would like to schedule therapy at a [facility] Rehab facility, please call [phone] ([phone]). Do not use lotions, creams, powders, perfume, make up, cologne or after-shaves day of surgery. Remove ALL jewelry including wedding rings, body piercings,hair extensions that contain metal, nailpolish, make-up, and contact lens. You may brush your teeth the morning of surgery, but do not swallow the water. Wear your dentures and partial plates to the hospital (no adhesive). Shower the night the before. If applicable, use the CHG (chlorhexidine gluconate) soap or wipes What should I bring to the hospital? If you received a green plastic bracelet, bring it with you the day of surgery and your nurse will put it on you. Eyeglass or contact lens case If you will be spending the night, please bring personal care items and leave them in the car untilyou are taken to your room after surgery. Leave ALL valuables at home. If any of these instructions conflict with those you received from the surgeon, please seek clarification from your surgeon's office. DEEP BREATHING EXERCISES This exercise helps promote good air exchange and helps to prevent pneumonia after surgery. Breathe in slowly and deeply through the nose. Hold your breath for a few seconds and then exhale slowly through the mouth. Repeat this three times and then cough.Coughing helps to clear your lungs. If you have had a surgery with an incision into your abdomen or chest, press gently against your incision with a pillow or a folded blanket when you cough. Please be aware - it may not be johnson to cough following some types of surgeries involving the eyes,ears, sinuses and throat. Always follow your doctor's instructions. LEG EXERCISE These exercises help promote good circulation and help to prevent blood clots after surgery. Point your toes to the ceiling and then point them to the wall. Do this slowly about 15-20 times. You may also move your feet in circles. Do the exercise that is most comfortable for you. If you have had surgery involving your shoulder or arm, we recommend you move your fingers. PRACTICING We ask that you begin practicing these exercises before your surgery. After surgery try to do both exercises at least every 2 hours during the day and early evening. SURGICAL SITE INFECTION PREVENTION What is a Surgical Site Infection? Infection can happen to the area of the body where surgery is done. This is called a surgical site infection (SSI). A SSI does not happen very often. Can SSIs be treated? Antibiotics are used to treat SSI. Some patients may need another surgery to treat the infection. The doctor will discuss treatment options with you. What are some of the things that hospitals are doing to prevent SSIs? Soap and water or alcohol hand rub are used before and after caring for each patient. Special soap is used to clean surgery workers hands and arms just before the surgery. Masks, gowns, gloves and hair covers are worn during the surgery to keep the area clean. Hair in the surgery area may be removed with clippers (not razors). A special soap that kills germs is used to clean the skin at the surgery site. Antibiotics may be given before the surgery starts. What can you do to prevent SSIs? Before surgery: You may be asked to shower or bathe with a special soap that kills germs the night before and the day of surgery. Use the soap as you were told. If you smoke, stop or cut down. Ask your doctor about ways to quit. Do not shave near where you will have surgery. Shaving can irritate the skin and make it easier to get and infection. After surgery: Be sure that the doctors and nurses clean their hands before and after touching you. Be sure your family and friends clean their hands before and after visiting you. Do not be afraid to remind them. * Care for your wound at home as told by your doctor or nurse * Call your doctor right away if you have fever, redness, increased pain, or drainage at the surgery site. Further questions? Contact the doctor, nurse or the Infection Prevention and Control department if you have any questions. PATIENT RIGHTS AND RESPONSIBILITIES As a patient at [facility], you have the right to: Receive medical care and be informed of who is taking care of you Be treated with dignity and respect Have a family member/dairy supplies sales representative of choice and your physician notified of your admission Receive information and actively participate in decisions about your care and treatment Refuse care, treatment and services Decide who may provide your support and speak for you Access orthodox and spiritual services Participate in ethical issues and questions about your care Receive private and confidential care Have appropriate assessment and management of your pain Know guest visitation restrictions or limitations Have an advance directive Access protective services Consent or refuse to participate in research studies or production or recordings, films or other images Have resolution of your complaints Receive information of hospital charges and payment methods Patient/patient dairy supplies sales representative responsibilities are to: Provide information about health status to facilitate care, treatment and services Follow the treatment, plan, keep appointments and speak up when you do not understand the plan Respect the rights of other patients and healthcare personnel Follow organizational rules and regulations that support quality care and a safe environment Fulfill financial obligations as promptly as possible Bathing Before Surgery- Patients greater than 2 months of age You can help to lower your chance of infection at the site of your surgery by showering or bathing with a special soap called chlorhexidine gluconate (CHG). Germs live on your skin. This special soapwill help lower the amount of germs so they do not get into your surgery site. Special points to know: Do not use this soap if you know that you are allergic to CHG. Shower or bathe with CHG the night before and the morning of surgery. Do not shave the area of your body where the surgery will be done within 7 days of surgery. The CHG may make your skin a little dry, but do not use lotion. Steps for Bathing: Wash your hair as usual with your normal shampoo. Rinse your hair and body well after you shampoo to get rid all of the shampoo. Wash gently with the CHG from the neck down, but do not scrub the skin to hard. Be sure to wash thearea of your surgery very well. If showering, turn the water off while washing and then turn the water back onto rinse. Do not get CHG in the genital (private) area. Do not get CHG in the eyes, ears, nose or mouth. (If the soap gets into the eyes, flush them immediately with water). Do not wash with regular soap after CHG is used. Pat skin dry with a soft, clean towel. Patient should sleep in freshly laundered night clothes and report for surgery in clean clothes. [facility]07-15-2024 Miscellaneous Notes* Pre-Procedure Instructions - Dianelys Cole RN - 12/21/2023 8:00 AM EDT Your surgery/procedure is scheduled at [facility] on 12/29/23 at 0830 Arrival [id number] [facility] Address: [address] [place] [address]. [place] [address] [address] Parking lot located on [facility]. Report to the Entrance B. Check in at the information desk the surgery. The waiting room located on the second floor. If you have any questions prior to surgery, please call Pre-Admission Clinic at [phone] between 7:30 am and 4:30 pm Thursday through Thursday. If you have questions the morning of surgery, please call the Pre-op Department at [phone]. Notify your SURGEON if you develop any illness such as a cold, cough, fever, sore throat, vomiting or are hospitalized between now and your surgery. CONTINUE TO TAKE YOUR MEDICATIONS PRESCRIBED. DO NOT STOP YOUR PRESCRIBED MEDICATIONS UNLESS DIRECTED BY YOUR PRESCRIBING PHYSICIAN Take the following medications the morning of surgery with a sip of water: per Dr Garcia office Weight loss medications: na Take inhalers as prescribed the morning of surgery. . Blood thinners: Medications such as Coumadin, Heparin, Aspirin, Plavix, Eliquis, Pradaxa) Please contact your physician regarding a stop/hold date for these medications. Diabetics: If you take insulin, contact your prescribing doctor for instructions on how to manage this the night before and the morning of surgery. Non-steriodal Anti-Inflammatory Drugs (NSAIDS)- Stop 3 days prior to surgery unless otherwise directed by your surgeon. Vitamins/Herbal Products: You may continue to take your prescribed vitamins such as potassium, iron, vitamin B, vitamin C, or multivitamin unless specifically instructed by your surgeon to stop. STOPtaking all herbal products/teas one week prior to your surgery. Marijuana: Stop marijuana 72 hours prior to surgery, stop CBD oil 48 hours prior to surgery. If you have been given bowel prep instructions by your surgeon, please call the surgeon's office with any questions about these instructions. What do I do the day of Surgery? Age 2 through adult - Stop all solids by midnight, You may have clear liquids up to 2 hours before surgery, unless otherwise instructed by your surgeon. Clear liquids are: water, sports drinks such as Gatorade or G2, or apple juice. You may NOT have: tube feedings, dairy products, alcoholic beverages, orange juice, or any liquids with solids or pulp in it. If applicable, shower again with CHG soap the morning of your surgery. If you received a green plastic bracelet, bring it with you the day of surgery and your nurse will put it on you. In order to help prevent infection post-operatively, you may be asked to use a CHG mouthwash when you arrive to the Pre-op area. Your nurse will provide instruction the morning of. What do I need to do to prepare for surgery? If you will be going home the same day as your surgery, arrange for an adult over [address] Riding in a bus or taxi by yourself is not permitted. You should not smoke or drink alcohol 24 hours before your surgery. Alcohol thins the blood and may cause bleeding problems during surgery. Smoking increases the risk of breathing problems after surgery. If you have been assigned NINA Education by your surgeon's office, please complete this education prior to your surgery. For questions regarding NINA education, reach out to your surgeon's office. If you have been given a prescription for occupational, physical or speech therapy, please set up these appointments before your procedure. If you would like to schedule therapy at a [facility] Rehab facility, please call [phone] ([phone]). Do not use lotions, creams, powders, perfume, make up, cologne or after-shaves day of surgery. Remove ALL jewelry including wedding rings, body piercings,hair extensions that contain metal, nailpolish, make-up, and contact lens. You may brush your teeth the morning of surgery, but do not swallow the water. Wear your dentures and partial plates to the hospital (no adhesive). Shower the night the before. If applicable, use the CHG (chlorhexidine gluconate) soap or wipes What should I bring to the hospital? If you received a green plastic bracelet, bring it with you the day of surgery and your nurse will put it on you. Eyeglass or contact lens case If you will be spending the night, please bring personal care items and leave them in the car untilyou are taken to your room after surgery. Leave ALL valuables at home. If any of these instructions conflict with those you received from the surgeon, please seek clarification from your surgeon's office. DEEP BREATHING EXERCISES This exercise helps promote good air exchange and helps to prevent pneumonia after surgery. Breathe in slowly and deeply through the nose. Hold your breath for a few seconds and then exhale slowly through the mouth. Repeat this three times and then cough.Coughing helps to clear your lungs. If you have had a surgery with an incision into your abdomen or chest, press gently against your incision with a pillow or a folded blanket when you cough. Please be aware - it may not be johnson to cough following some types of surgeries involving the eyes,ears, sinuses and throat. Always follow your doctor's instructions. LEG EXERCISE These exercises help promote good circulation and help to prevent blood clots after surgery. Point your toes to the ceiling and then point them to the wall. Do this slowly about 15-20 times. You may also move your feet in circles. Do the exercise that is most comfortable for you. If you have had surgery involving your shoulder or arm, we recommend you move your fingers. PRACTICING We ask that you begin practicing these exercises before your surgery. After surgery try to do both exercises at least every 2 hours during the day and early evening. SURGICAL SITE INFECTION PREVENTION What is a Surgical Site Infection? Infection can happen to the area of the body where surgery is done. This is called a surgical site infection (SSI). A SSI does not happen very often. Can SSIs be treated? Antibiotics are used to treat SSI. Some patients may need another surgery to treat the infection. The doctor will discuss treatment options with you. What are some of the things that hospitals are doing to prevent SSIs? Soap and water or alcohol hand rub are used before and after caring for each patient. Special soap is used to clean surgery workers hands and arms just before the surgery. Masks, gowns, gloves and hair covers are worn during the surgery to keep the area clean. Hair in the surgery area may be removed with clippers (not razors). A special soap that kills germs is used to clean the skin at the surgery site. Antibiotics may be given before the surgery starts. What can you do to prevent SSIs? Before surgery: You may be asked to shower or bathe with a special soap that kills germs the night before and the day of surgery. Use the soap as you were told. If you smoke, stop or cut down. Ask your doctor about ways to quit. Do not shave near where you will have surgery. Shaving can irritate the skin and make it easier to get and infection. After surgery: Be sure that the doctors and nurses clean their hands before and after touching you. Be sure your family and friends clean their hands before and after visiting you. Do not be afraid to remind them. * Care for your wound at home as told by your doctor or nurse * Call your doctor right away if you have fever, redness, increased pain, or drainage at the surgery site. Further questions? Contact the doctor, nurse or the Infection Prevention and Control department if you have any questions. PATIENT RIGHTS AND RESPONSIBILITIES As a patient at [facility], you have the right to: Receive medical care and be informed of who is taking care of you Be treated with dignity and respect Have a family member/dairy supplies sales representative of choice and your physician notified of your admission Receive information and actively participate in decisions about your care and treatment Refuse care, treatment and services Decide who may provide your support and speak for you Access orthodox and spiritual services Participate in ethical issues and questions about your care Receive private and confidential care Have appropriate assessment and management of your pain Know guest visitation restrictions or limitations Have an advance directive Access protective services Consent or refuse to participate in research studies or production or recordings, films or other images Have resolution of your complaints Receive information of hospital charges and payment methods Patient/patient dairy supplies sales representative responsibilities are to: Provide information about health status to facilitate care, treatment and services Follow the treatment, plan, keep appointments and speak up when you do not understand the plan Respect the rights of other patients and healthcare personnel Follow organizational rules and regulations that support quality care and a safe environment Fulfill financial obligations as promptly as possible Bathing Before Surgery- Patients greater than 2 months of age You can help to lower your chance of infection at the site of your surgery by showering or bathing with a special soap called chlorhexidine gluconate (CHG). Germs live on your skin. This special soapwill help lower the amount of germs so they do not get into your surgery site. Special points to know: Do not use this soap if you know that you are allergic to CHG. Shower or bathe with CHG the night before and the morning of surgery. Do not shave the area of your body where the surgery will be done within 7 days of surgery. The CHG may make your skin a little dry, but do not use lotion. Steps for Bathing: Wash your hair as usual with your normal shampoo. Rinse your hair and body well after you shampoo to get rid all of the shampoo. Wash gently with the CHG from the neck down, but do not scrub the skin to hard. Be sure to wash thearea of your surgery very well. If showering, turn the water off while washing and then turn the water back onto rinse. Do not get CHG in the genital (private) area. Do not get CHG in the eyes, ears, nose or mouth. (If the soap gets into the eyes, flush them immediately with water). Do not wash with regular soap after CHG is used. Pat skin dry with a soft, clean towel. Patient should sleep in freshly laundered night clothes and report for surgery in clean clothes. documented in this encounterOhioHealth Arthur G.H. Bing, MD, Cancer CenterCHORD [facility] [id number] Evaluation + Plan note* Assessment & Plan Note - Marlys Garcia MD - 11/12/2023 2:08 PM EDT Associated Problem(s): Transient ischemic attack involving right internal carotid artery Cardiac risk stratification Continue aspirin and statin Will add Plavix to start now and for 1 month after carotid endarterectomy We will plan on right carotid endarterectomy for symptomatic Moderate right ICA stenosis [facility] Moving Off [id number] Miscellaneous Notes* Assessment & Plan Note - Marlys Garcia MD - 11/12/2023 2:08 PM EDTAssociated Problem(s): Transient ischemic attack involving right internal carotid artery Cardiac risk stratification Continue aspirin and statin Will add Plavix to start now and for 1 month after carotid endarterectomy We will plan on right carotid endarterectomy for symptomatic Moderate right ICA stenosis [facility]St[facility] History of Present illness Narrative* Marlys Garcia MD - 11/12/2023 1:50 PM EDT Images from the original note were not included. To: No primary care provider on file. HPI: Faith Penn is a 78 y.o. male with With a recent TIA in the right hemisphere. His is experienced ER nurse and nurse manager dialysis who was with him when he had the symptoms. The MRI did not show evidence of stroke. His right ICA shows moderate stenosis with ulcerated plaque. He is on aspirin and statin he is not on Plavix. He does not smoke. He had left carotid endarterectomy couple years ago. Wediscussed different options and we plan to do right carotid endarterectomy for symptomatic high-grade moderate grade right ICA stenosis. Will get cardiac clearance and risk stratification. Will add Plavix.. Review of Systems: Review of Systems Constitutional: Negative. HENT: Negative. Respiratory: Negative. Cardiovascular: Negative. Gastrointestinal: Negative. Endocrine: Negative. Genitourinary: Negative. Musculoskeletal: Negative. Skin: Negative. Neurological: Negative. Hematological: Negative. Medications: Current Outpatient Medications on File Prior to Visit Medication Sig Dispense Refill FLUoxetine (PROzac) 20 mg capsule Take 1 capsule (20 mg total) by mouth in the morning. simvastatin (ZOCOR) 40 mg tablet Take 1 tablet (40 mg total) by mouth nightly. aspirin 81 mg Take 1 tablet (81 mg total) by mouth in the morning. No current facility-administered medications on file prior to visit. Past Medical History: Past Medical History: Diagnosis Date Behavioral and psychological symptoms of dementia (CMS-HCC) Benign prostatic hyperplasia with urinary obstruction Urinary tract symptoms Bilateral carotid artery stenosis Cognitive impairment mild COVID-19 Depression Hematuria, gross Hyperlipemia Hypertension Impotence Nocturia Poor urinary stream Positive colorectal cancer screening using Cologuard test Past Surgical History: Past Surgical History: Procedure Laterality Date ADENOIDECTOMY COLONOSCOPY ELBOW ARTHROSCOPY SKIN CANCER EXCISION TONSILLECTOMY Social and Family History: Social History Socioeconomic History Marital status: Not on file Spouse name: Not on file Number of children: Not on file Years of education: Not on file Highest education level: Not on file Occupational History Not on file Tobacco Use Smoking status: Former Types: Pipe, Cigars Smokeless tobacco: Never Substance and Sexual Activity Alcohol use: Yes Alcohol/week: 4.0 standard drinks of alcohol Types: 4 Glasses of wine per week Drug use: Defer Sexual activity: Defer Other Topics Concern Not on file Social History Narrative Not on file Social Determinants of Health Financial Resource Strain: Low Risk (10/20/2022) Received from [facility] Overall Financial Resource Strain (CARDIA) Difficulty of Paying Living Expenses: Not hard at all Food Insecurity: Not on file (10/20/2022) Transportation Needs: Unknown (10/20/2022) Received from [facility] PRAPARE - Transportation Lack of Transportation (Medical): Not on file Lack of Transportation (Non-Medical): No Physical Activity: Insufficiently Active (04/27/2023) Received from [facility] Exercise Vital Sign Days of Exercise per Week: 7 days Minutes of Exercise per Session: 20 min Stress: Not on file Social Connections: Not on file Interpersonal Safety: Unknown (07/30/2023) Received from [facility] Safety & Environment Fear of Current or Ex-Partner: Not on file Emotionally Abused: Not on file Physically Abused: Not on file Sexually Abused: Not on file Physically or Sexually Abused: Not on file Housing Instability: Unknown (10/20/2022) Received from [facility] Housing Stability Vital Sign Unable to Pay for Housing in the Last Year: Not on file Number of Places Lived in the Last Year: Not on file In the last 12 months, was there a time when you did not have a steady place to sleep or slept in ashelter (including now)?: No Family History Family history unknown: Yes Recent Labs: Recent and relative labs were reviewed and interpreted and contributed to the assessment and plan below. Vitals: There were no vitals taken for this visit. There is no height or weight on file to calculate BMI. Physical Exam: Physical Exam Constitutional: Appearance: Normal appearance. HENT: Head: Normocephalic and atraumatic. Mouth/Throat: Mouth: Mucous membranes are moist. Eyes: Extraocular Movements: Extraocular movements intact. Pupils: Pupils are equal, round, and reactive to light. Cardiovascular: Rate and Rhythm: Normal rate and regular rhythm. Pulmonary: Effort: Pulmonary effort is normal. Breath sounds: Normal breath sounds. Abdominal: General: Abdomen is flat. Bowel sounds are normal. Palpations: Abdomen is soft. Musculoskeletal: General: Normal range of motion. Cervical back: Normal range of motion. Skin: General: Skin is warm and dry. Neurological: General: No focal deficit present. Mental Status: He is alert and oriented to person, place, and time. Mental status is at baseline. Psychiatric: Mood and Affect: Mood normal. Behavior: Behavior normal. Thought Content: Thought content normal. Judgment: Judgment normal. Recent testing: CT of the neck Assessment and Plan: Problem List Transient ischemic attack involving right internal carotid artery - Primary Current Assessment & Plan Cardiac risk stratification Continue aspirin and statin Will add Plavix to start now and for 1 month after carotid endarterectomy We will plan on right carotid endarterectomy for symptomatic Moderate right ICA stenosis Relevant Medications clopidogreL (PLAVIX) 75 mg tablet Diagnoses and all orders for this visit: Transient ischemic attack involving right internal carotid artery - clopidogreL (PLAVIX) 75 mg tablet; Take 1 tablet (75 mg total) by mouth in the morning. Marlys Garcia MD, HOLA, RPVI, FSVS, FACS [facility] This note was created with the assistance of a speech recognition program. While intending to generate a timely document that accurately reflects the content of the visit, no guarantee can be provided that every grammatical or spelling mistake has been or will be identified or corrected. Thank you for your understanding. documented in this encounterOhioHealth Arthur G.H. Bing, MD, Cancer CenterUltimate Football Network [id number] Hospital Discharge instructions Patient Education 01/07/2023 10:53:04 Benign Prostatic Hyperplasia Benign Prostatic Hyperplasia Benign prostatic hyperplasia (BPH) is an enlarged prostate gland that is caused by the normal agingprocess. The prostate may get bigger as a man gets older. The condition is not caused by cancer. The prostate is a walnut-sized gland that is involved in the production of semen. It is located in front of the rectum and below the bladder. The bladder stores urine. The urethra carries stored urine ou t of the body. An enlarged prostate can press on the urethra. This can make it harder to pass urine. The buildup of urine in the bladder can cause infection. Back pressure and infection may progress to bladder damage and kidney (renal) failure. What are the causes? This condition is part of the normal aging process. However, not all men develop problems from thiscondition. If the prostate enlarges away from the [...] urethra. Follow these instructions at home: Take rjgn-ojg-yhwzktt and prescription medicines only as told by [...] provider. Document Revised: 12/11/2021 Document Reviewed: 12/11/2021 [employer] Patient Education 2022 [employer]. Follow Up Care 01/13/2022 10:26:06 With:KATHY HILL, Chintan Mo, URL Address: [facility] [employer] [place] [id number] When: Unknown [facility] 03-20-2023 Hospital Discharge instructions Patient Education 08/25/2022 15:20:40 Benign Prostatic Hyperplasia Benign Prostatic Hyperplasia Benign prostatic hyperplasia (BPH) is an enlarged prostate gland that is caused by the normal agingprocess and not by cancer. The prostate is [...] urethra. Follow these instructions at home: Take bams-cpa-zsvoqur and prescription medicines only as told by [...] 05/25/2006 Document Revised: 04/19/2019 Document Reviewed: 06/29/2017 [employer] Patient Education 2020 [employer]cast[employer]. Follow Up Care 08/18/2022 10:34:03 With:KATHY HILL, Chintan Mo, URL Address: [address] [facility] [address] [place] [address]- When: Unknown [facility] [place] [id number] Procedure [facility]08-08-2022 Hospital Discharge instructions Patient Education 01/13/2022 10:21:56 [...] Follow these instructions at home: Medicines Take upra-ejx-wxnkplv and prescription medicines only as told by your health care provider. Do not increase the dosage without first discussing it with your health care provider. If you are using self-injections, perform injections as directed by your health care provider. Makesure to avoid any veins that are on [...] come with the pump and discuss any questionswith your health care provider. Keep all follow-up [...] and may include medicines, hormone therapy, surgery, orvacuum pump. You may need follow-up visits to [...] 05/22/2001 Document Revised: 05/07/2018 Document Reviewed: 06/10/2017 [employer] Patient Education 2020 [employer] Follow Up Care 01/14/2021 08:36:30 With:KATHY HILL, Chintan Mo, URL Address: [address] [id number] When:Within 1 Year(s) [facility] 01-23-2022 NoteMR#: [id number] I [facility] Pt. Name: Faith Penn Grupo Admitted: 06/25/2021 Discharged: 06/26/2021 Date of : [...] by: Kenyatta Mora M.D. 07/23/2021 12:17 P Kenyatta Mora M.D. I personally saw this patient on the day of the encounter, performed the wellington portion(s) of the service and participated in the management and confirm the resident's documentation. Please note there may be an additional personal documentation from me. Date Dict: 06/30/2021/12:45 P/Luna Salinas M.S., PROGRAM CONSULTANT Date Trans: 06/30/2021 08:59 P/grabiel [id number] [facility] Future Appointments Appointment Date:01/14/2023 08:45:00 AM Scheduled Provider:Chintan GRACIA MD Location:[facility] Appointment Type:URO Office Visit [facility] Evaluation + Plan note Future Appointments Appointment Date:01/07/2023 10:15:00 AM Scheduled Provider:Chintan GRACIA MD Location:[facility] Appointment Type:URO Office Visit [facility] Evaluation + Plan note Future Appointments Appointment Date:01/27/2024 10:30:00 AM Scheduled Provider:Chintan GRACIA MD Location:[facility] Appointment Type:URO Office Visit [facility] Evaluation + Plan note Future Appointments Appointment Date:01/06/2024 08:30:00 AM Scheduled Provider: Location:[facility] Appointment Type:URO Nurse Visit Appointment Date:01/27/2024 10:30:00 AM Scheduled Provider:Chintan GRACIA MD Location:[facility] Appointment Type:URO Office Visit [facility] evaluation + Plan note Future Appointments Appointment Date:08/04/2025 09:00:00 AM Scheduled Provider:DHAVAL Ragsdale APRN, Humaira Ayon Location:[facility] Appointment Type:URO Office Visit [facility] Evaluation note* Diagnosis Prostate cancer screening Special screening for malignant neoplasm of prostate Mixed hyperlipidemia Essential hypertension Unspecified essential hypertension Thyroid disorder screening Screening for thyroid disorder documented in this encounter [employer] Phone: evalecuxqt note* Diagnosis Dizziness Dizziness and giddiness Mild alcohol use disorder, in controlled environment Bilateral carotid artery stenosis Occlusion and stenosis of multiple and bilateral precerebral arteries without mention of cerebral infarction Short-term memory loss Memory loss documented in this encounter [employer] Phone: evaluation note* Diagnosis Fall, initial encounter Acute midline low back pain without sciatica documented in this encounter [employer] Phone: evaluation note* Diagnosis Fall, initial encounter documented in this encounter [employer] Phone: evaluation noteNo assessment information available [facility] Work Phone: evaluation note* Diagnosis Onset Date Resolution Status Positive colorectal cancer screening usi ng Cologuard test acute [facility] Work Phone: Evalucolgv note* Diagnosis Mixed hyperlipidemia Bilateral carotid artery stenosis Occlusion and stenosis of multiple and bilateral precerebral arteries without mention of cerebral infarction Essential hypertension Unspecified essential hypertension History of alcoholism (HCC) Personal history of alcoholism Primary hypertension Unspecified essential hypertension documented in this encounter [employer] Phone: evaluation note* Diagnosis Mixed hyperlipidemia Mild cognitive impairment Mild cognitive impairment, so stated IFG (impaired fasting glucose) Impaired fasting glucose Primary hypertension Unspecified essential hypertension Prostate cancer screening Special screening for malignant neoplasm of prostate documented in this encounter [facility]* Diagnosis Other amnesia [facility] Diagnosis Other amnesia [facility]* Diagnosis Transient ischemic attack involving right internal carotid artery- Primary [facility]* Diagnosis Stenosis of right carotid artery- Primary Occlusion and stenosis of carotid artery without mention of cerebral infarction Stenosis of right carotid artery Occlusion and stenosis of carotid artery without mention of cerebral infarction documented [facility]* Diagnosis Postop check- Primary Follow-up examination, following unspecified surgery documented [facility]* Diagnosis Bilateral carotid artery occlusion- Primary Occlusion and stenosis of carotid artery without mention of cerebral infarction documented [facility] encounter [facility]* Diagnosis Moderate vascular dementia with agitation (HCC) Acquired hypothyroidism Unspecified hypothyroidism Primary hypertension Unspecified essential hypertension Outbursts of explosive behavior Other general symptoms Mixed hyperlipidemia Dysuria documented [facility] encounter [facility]* Diagnosis Behavioral and psychological symptoms of dementia (HCC)- Primary Mild cognitive impairment Mild cognitive impairment, so stated Major depressive disorder, recurrent, moderate (HCC) Major depressive disorder, recurrent episode, moderate [facility]* Diagnosis 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)- Primary documented in this encounter [facility]* Diagnosis Dementia with aggressive behavior (HCC)- Primary Memory loss 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, unspecified documented in this encounter [facility]* Diagnosis Transient ischemic attack involving right internal carotid artery- Primary Postop check- Primary Follow-up examination, following unspecified surgery Bilateral carotid artery occlusion- Primary Occlusion and stenosis of carotid artery without mention of cerebral infarction Carotid stenosis, bilateral- Primary Occlusion and stenosis of carotid artery without mention of cerebral infarction documented in this encounter [facility]* Diagnosis Primary hypertension Unspecified essential hypertension Mixed hyperlipidemia Vitamin D deficiency Unspecified vitamin D deficiency [facility] Diagnosis Community acquired pneumonia of right lower lobe of lung documented in this encounter [facility]* Diagnosis Age-related nuclear cataract of both eyes- Primary 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 -Office number [phone] Phone: Hospital Discharge instructions* Attachments The following attachments cannot be sent through Care Everywhere. * Carotid Artery Endarterectomy Discharge Instructions (Hungarian) * Carotid Artery Endarterectomy (Hungarian) [facility] RushFiles SystemInstructionsNot on file documented in this encounterProTrihealth Bethesda Butler HospitalUltimate Football Network SystemInstructionsNot on file documented in this encounterProTrihealth Bethesda Butler HospitalUltimate Football Network SystemInstructionsNot on file documented in this encounterProTrihealth Bethesda Butler HospitalUltimate Football Network SystemInstructionsNot on file documented in this encounterProTrihealth Bethesda Butler HospitalUltimate Football Network SystemInstructionsNot on file documented in this encounterProBaypointe Hospital RushFiles SystemInstructionsNot on file documented in this encounterProBaypointe Hospital RushFiles SystemInstructionsNot on file documented in this encounterDelaware [facility] Hospital RushFiles SystemInstructionsNot on file documented in this encounterSycamore [facility] SystemProgress note No data available for this section [facility] [place] Reason for Referral StatusReasonSpecialtyDiagnoses / ProceduresReferred By ContactReferred To ContactOpenCardiology Diagnoses Dizziness Essential hypertension Pure hypercholesterolemia Procedures EKG 12 Lead Candace Giron, CUSTOMER SALES REPRESENTATIVE - PROGRAM CONSULTANT [address] [id number] StatusReasonSpecialtyDiagnoses / ProceduresReferred By ContactReferred To ContactOpenEKG Diagnoses Dizziness Procedures Holter Monitor 48 Hour HC HOLTER MONITOR Candace Giron, CUSTOMER SALES REPRESENTATIVE - PROGRAM CONSULTANT [address] [phone] [facility] [address] [place] [address] StatusReasonSpecialtyDiagnoses / ProceduresReferred By ContactReferred To ContactOpen Diagnoses Dizziness Essential hypertension Procedures VL DUP CAROTID BILATERAL HC EXTRACRANIAL BILAT STUDY Candace Giron, CUSTOMER SALES REPRESENTATIVE - PROGRAM CONSULTANT [address] [phone] StatusReasonSpecialtyDiagnoses / ProceduresReferred By ContactReferred To ContactClosedRadiology Diagnoses Dizziness Mild alcohol use disorder, in controlled environment Bilateral carotid artery stenosis Short-term memory loss Procedures MRI BRAIN WO CONTRAST Candace Giron, CUSTOMER SALES REPRESENTATIVE - PROGRAM CONSULTANT [address] [phone] SpecialtyDiagnoses / ProceduresReferred By ContactReferred To Contact Procedures Wound care (specify) Sanket Santana CUSTOMER SALES REPRESENTATIVE-PROGRAM CONSULTANT [address] [place] [address] Phone: Referral IDStatusReasonStart DateExpiration DateVisits RequestedVisits [id number] Review/[id number] / ProceduresReferred By ContactReferred To Contact Procedures No dressing needed Sanket Santana, CUSTOMER SALES REPRESENTATIVE-PROGRAM CONSULTANT [address] [place] [address] Phone: Referral IDStatusReasonStart DateExpiration DateVisits RequestedVisits [id number] Review/[id number] / ProceduresReferred By ContactReferred To Contact Procedures Adult diet Sanket Santana, CUSTOMER SALES REPRESENTATIVE-PROGRAM CONSULTANT [address] [place] [address] Referral IDStatusReasonStart DateExpiration DateVisits RequestedVisits [id number] Review/[id number] / ProceduresReferred By ContactReferred To Contact Diagnoses Postop check Procedures Vas carotid duplex bilateral Marlys Garcia MD [address], [address] [address] Referral IDStatusReasonStart DateExpiration DateVisits RequestedVisits [id number] Review/[id number] / ProceduresReferred By ContactReferred To Contact Diagnoses Bilateral carotid artery occlusion Procedures Vas carotid duplex bilateral Marlys Garcia MD [address], [address] [address] Referral IDStatusReasonStart DateExpiration DateVisits RequestedVisits [id number] Review/ Assessments Diagnosis Dizziness Dizziness and giddiness Essential [...] No Advanced Directives Records FoundDocuments on File TypeDate RecordedPatient RepresentativeExplanationAdvance Directives and Living WillPower of AttorneyTypeDate RecordedPatient RepresentativeExplanationAdvance Directives and Living WillPower of AttorneyTypeDate RecordedPatient RepresentativeExplanationACP-Advance DirectiveACP-Power of AttorneyName RelationshipHealthcare Agent RelationshipCommunicationBarbara BoresSpousePrimary Decision Maker* TypeDate RecordedPatient RepresentativeExplanationACP-Advance DirectiveACP-Power of AttorneyNameRelationshipHealthcare Agent RelationshipCommunicationBarbara BoresSpousePrimary Decision Maker* NameRelationshipHealthcare Agent RelationshipCommunicationBarbara BoresSpouse Primary Decision Maker* NameRelationshipHealthcare Agent RelationshipCommunicationBarbara BoresSpouse Primary Decision Maker* NameRelationshipHealthcare Agent RelationshipCommunicationBarbara BoresSpouse Primary Decision Maker* Advance Directive Response Recorded Date/ Time Advance Directives No July 4:29pm TypeDate RecordedPatient RepresentativeExplanationACP-Do Not Resuscitate 04/21/2022 9:41 AM04/21/22 DNR Comfort CareNameRelationshipHealthcare Agent RelationshipCommunicationBarbara BoresSpousePrimary Decision Maker* Date ActivatedDate TdckitseetoNjfphjrd09/16/2022 12:08 AMNameRelationship Healthcare Agent RelationshipCommunicationBarbara BoresSpousePrimary Decision Maker* NameRelationshipHealthcare Agent RelationshipCommunicationBarbara BoresSpouse Primary Decision Maker* NameRelationshipHealthcare Agent RelationshipCommunicationBarbara BoresSpouse Primary Decision Maker* NameRelationshipHealthcare Agent RelationshipCommunicationBarbara BoresSpouse Primary Decision Maker* History of Present Illness * Becca Abdullahi, TOBACCO DIPPER - 08/22/2019 2:00 PM EDT The patient [...] Recorded Date/T ines father Hypertension Unknown Diabetes mellitusUnknownCerebrovascular accident (CVA)UnknownNot Specified DementiaUnknown Chief Complaint and Reason for Visit Chief Complaint Positive Occult Stoo l Blood Test Chief Complaint Positive Occult Stoo l Blood Test Positive Occult Stool Blood TestReason for VisitPositive colorectal cancer screening using Cologuard test Chief Complaint dizzy, headache covi d + Additional Source Comments Reason for Visit (unrecogniz ed section and content) StatusReasonSpecialtyDiagnoses / ProceduresReferred By ContactReferred To ContactOpenEKG Diagnoses Dizziness Procedures Holter Monitor 48 Hour HC HOLTER MONITOR Candace Giron, CUSTOMER SALES REPRESENTATIVE - PROGRAM CONSULTANT [address] [place] [address] [facility] Ekg [address] [place] [address] StatusReasonSpecialtyDiagnoses / ProceduresReferred By ContactReferred To ContactOpen Diagnoses Dizziness Essential hypertension Procedures VL DUP CAROTID BILATERAL HC EXTRACRANIAL BILAT STUDY Candace Giron APRN - PROGRAM CONSULTANT [address] [place] [address] StatusReasonSpecialtyDiagnoses / ProceduresReferred By ContactReferred To ContactClosedRadiology Diagnoses Dizziness Mild alcohol use disorder, in controlled environment Bilateral carotid artery stenosis Short-term memory loss Procedures MRI BRAIN WO CONTRAST Candace Giron, CUSTOMER SALES REPRESENTATIVE - PROGRAM CONSULTANT [address] [place] [address] ReasonCommentsMed RefillReasonCommentsLeg PainRight foot having pain and can't bend due to other surgerySpecialtyDiagnoses / ProceduresReferred By Contact Referred To Contact Diagnoses CAROTID STENOSIS RIGHT Procedures MA THROMBOENDARTECTMY NECK,NECK INCIS ENDARTERECTOMY CAROTID Marlys Garcia MD [address], [address] [address] Referral IDStatusReasonStart DateExpiration DateVisits RequestedVisits [id number]/O RCEA 12/28Transient ischemic attack involving right internal carotidStenosis of right carotid arteryReasonComments2 week S/P Rt CEATransient ischemic attack involving right internal carotidReason Comments1 yr follow up carotid test done1 YEAR F/U CAROTID STENOSIS RIGHTENDARTERECTOMY CAROTIDCalled patient and left message for him to get his carotid duplex done before his appt on 02/02 if not we need to cancel his appt and reschedule until that test is done.Carotid done its is in MEDIAReason CommentsCataractReasonCommentsDementia (unrecognized sect ion and content) No Status Records FoundNo Status Records FoundNo Status Records FoundNo Status Records FoundNo Status Records FoundNo Status Records FoundNo Status Records FoundNo Status Records FoundNo Status Records FoundNo Status Records Found INFORMATION SOURCE (unrecogn ized section and content) DATE CREATED AUTHOR 07/15/2021 [facility] Ear Pull Machine Operator DATE CREATED AUTHOR AUTHOR'S ORGANIZ ATION 07/24/2021 [facility] DATE CREATED AUTHOR AUTHOR'S ORGANIZ ATION 08/14/2022 [facility] DATE CREATED AUTHOR AUTHOR'S ORGANIZ ATION 11/17/2023 [facility] DATE CREATED AUTHOR AUTHOR'S ORGANIZ ATION 12/31/2023 [facility] DATE CREATED AUTHOR AUTHOR'S ORGANIZ ATION 02/09/2025 [facility] DATE CREATED AUTHOR AUTHOR'S ORGANIZ ATION 02/18/2025 [facility] DATE CREATED AUTHOR AUTHOR'S ORGANIZ ATION 03/13/2025 [facility] DATE CREATED AUTHOR AUTHOR'S ORGANIZ ATION 04/05/2025 [facility] DATE CREATED AUTHOR AUTHOR'S ORGANIZ ATION 04/05/2025 [facility] Care Teams (unrecognized sec tion and content) Team Status: Active Member Role Status Dates Candace Giron APRN BUSINESS PROCESS ENGINEER-C Primary Care Provider Active Team Status: Inactive Member Role Status Dates Candace Giron APRN BUSINESS PROCESS ENGINEER-C Primary Care Provider Active Leonides M Tupa , DOEmergency ProviderActiveTeam MemberRelationshipSpecialtyStart DateEnd Date Candace Giron, CUSTOMER SALES REPRESENTATIVE - PROGRAM CONSULTANT [address] [place] [address] PCP - General01/09/16Team MemberRelationshipSpecialtyStart DateEnd Date Candace Giron, CUSTOMER SALES REPRESENTATIVE - PROGRAM CONSULTANT [address] [place] [address] PCP - General01/09/16Team MemberRelationshipSpecialtyStart DateEnd Date Candace Giron, CUSTOMER SALES REPRESENTATIVE - PROGRAM CONSULTANT [address] [place] [address] PCP - General01/09/16 Team Status: Inactive Member Role Status Dates Candace Giron , PORTER BUSINESS PROCESS ENGINEER-C Primary Care Provider Active Christiano Ravi MDAelena ProviderActiveTeam MemberRelationship SpecialtyStart DateEnd Date Candace Giron, CUSTOMER SALES REPRESENTATIVE - PROGRAM CONSULTANT [address] [place] [address] PCP - General01/09/16Team MemberRelationshipSpecialtyStart DateEnd Date Candace Giron, CUSTOMER SALES REPRESENTATIVE - PROGRAM CONSULTANT [address] [place] [address] PCP - General01/09/16Team MemberRelationshipSpecialtyStart DateEnd Date Olimpia Middleton MD [address] [phone] P[facility] - GeneralMon[facility] Clinicsly Ltwrgrfm74/31/23 Candace Giron NP [address] [place] [phone] Referring PhysicianFamily Uizstvmz36/31/23Team MemberRelationshipSpecialtyStart DateEnd Date Olimpia Middleton MD [address] [place], [place] [phone] PCP - GeneralFamily Nddcenow98/31/23 Candace Giron, BUSINESS PROCESS ENGINEER [address] [place] [phone] Referring [facility] CenterFamily Ccbdrqgm19/31/23Team MemberRelationshipSpecialtyStart DateEnd Date Candace Giron, CUSTOMER SALES REPRESENTATIVE-PROGRAM CONSULTANT [address] [place] [address] PCP - Generalmily Medicine12/21/23Team MemberRelationshipSpecialtyStart DateEnd Date Candace Giron, CUSTOMER SALES REPRESENTATIVE-PROGRAM CONSULTANT [address] [place] [address] PCP - Generalmily Medicine12/21/23Team MemberRelationshipSpecialtyStart DateEnd Date Candace Giron, CUSTOMER SALES REPRESENTATIVE-PROGRAM CONSULTANT [address] [place] [address] PCP - Generalmily Medicine12/21/23Team MemberRelationshipSpecialtyStart DateEnd Date Candace Giron, CUSTOMER SALES REPRESENTATIVE-PROGRAM CONSULTANT [address] [place] [address] PCP - Generalmily Medicine12/21/23Team MemberRelationshipSpecialtyStart DateEnd Date Candace Giron, CUSTOMER SALES REPRESENTATIVE-PROGRAM CONSULTANT [address] [place] [address] PCP - Generalmily Medicine12/21/23Team MemberRelationshipSpecialtyStart DateEnd Date Candace Giron, CUSTOMER SALES REPRESENTATIVE-PROGRAM CONSULTANT [address] [place] [address] PCP - GeneralFamily Medicine12/21/23Team MemberRelationshipSpecialtyStart DateEnd Date Candace Giron, CUSTOMER SALES REPRESENTATIVE - PROGRAM CONSULTANT [address] [place] [address] PCP - General01/09/16Team MemberRelationshipSpecialtyStart DateEnd Date Olimpia Middleton MD [address] [place], [place] [phone] PCP - GeneralFamily Uqppavzb68/31/23 Candace Giron BUSINESS PROCESS ENGINEER [address] [place], [place] [phone] Referring Physicianmily Thkkwsng06/31/23Team MemberRelationshipSpecialtyStart DateEnd Date Olimpia Middleton MD [address] [place], [place] [address] PCP - GeneralFamily Wtkosdpb97/31/23 Candace Giron BUSINESS PROCESS ENGINEER [address] [phone] Referring PhysicianFamily Vblxcxdd24/31/23Team MemberRelationshipSpecialtyStart DateEnd Date Olimpia Middleton MD [address] [place], [place] [address] PCP - GeneralFamily Ohdtlcno46/31/23 Candace Giron BUSINESS PROCESS ENGINEER [address] [phone] Referring Physicianmily Qtihgpmg82/31/23Team MemberRelationshipSpecialtyStart DateEnd Date Olimpia Middleton MD [address] [phone] [facility] - [facility] Hadeqied24/31/23 Candace Giron, BUSINESS PROCESS ENGINEER [address] [place] [address] Referring Physicianmi Jgftncql75/31/23Team MemberRelationshipSpecialtyStart DateEnd Date Candace Giron, CUSTOMER SALES REPRESENTATIVE-PROGRAM CONSULTANT [address] [place] [address] PCP - Generalmily Medicine12/21/23Team MemberRelationshipSpecialtyStart DateEnd Date Candace Giron, CUSTOMER SALES REPRESENTATIVE - PROGRAM CONSULTANT [address] [phone] PCP - General01/09/16Team MemberRelationshipSpecialtyStart DateEnd Date Candace Giron, CUSTOMER SALES REPRESENTATIVE - PROGRAM CONSULTANT [address] [phone] PCP - General01/09/16Team MemberRelationshipSpecialtyStart DateEnd Date Olimpia Middleton MD [address] [phone] PCP - GeneralEn[facility] Osjrvsia46/31/23 Candace Giron, BUSINESS PROCESS ENGINEER [address] [place] [address] Referring Physicianmily Wzhskait72/31/23Team MemberRelationshipSpecialtyStart End Date Olimpia Middleton MD [address] [place] [address] PCP - Generalmily Iwlnptkt48/31/23 Candace Giron NP [address] [place] [phone] Referring Physicianmi Myzdlogl77/31/23Team MemberRelationshipSpecialtyStart End Date Olimpia Middleton MD [address] [place] [address] PCP - Generalmi Owyucnoz00/31/23 Candace Giron NP [address] [place] [phone] Referring PhysicianEncompass Health [facility] Bcltolmu11/31/23Team MemberRelationshipSpecialtyStart End Date Olimpia Middleton MD [address] [place] [address] PCP - Generalmi Fqtrjebt46/31/23 Candace Giron NP [address] [place] [phone] Referring PhysicianEncompass Health [facility] Avfwwwkj54/31/23Team MemberRelationshipSpecialtyStart End Date Olimpia Middleton MD [address] [place] [address] PCP - Generalmily Hojzsfna92/31/23 Candace Giron NP [address] [place] [address] Referring PhysicianFamily Bhfmsech33/31/23 Goals (unrecognized section and content) Goals may be documented in a n alternate section Scheduled Active and Recently Administ ered Medications (unrecognized section and content) Medication Order12/27// aspirin EC tablet 81 mg 81 mg, oral, Daily, First dose on Thu12/29/23 at 1200, Do not crush or chew. * 1332 (Given - Provider: Haley Pérez RN) * 0936 (Given - Provider: Kari Carlos, SVETLANA) ceFAZolin (ANCEF) 2,000 mg in sodium chloride 0.9 % 50 mL IVPB-MBP (COMPLETED) 2,000 mg, intravenous, at 100 mL/hr, Administer over 30 Minutes, Once, On Thu12/29/23 at 0730, For 1 dose, Pre-op, Within one hour prior to incision. For patient less than 120 kg or less. ADD-VANTAGE/MBP- Discard 24 hours after activating; dissolve drug prior to administration, Indication: Surgical prophylaxis * 0856 (New Bag - Provider: Mickie Hdz APRN-BLACK MILL OPERATOR) * 0926 (Stop Bag - Provider: ENRIQUE Brown) clopidogreL (PLAVIX) tablet 75 mg 75 mg, oral, Daily, First dose on Thu12/29/23 at 1115, Look-alike/sound-alike medication - verify indication for use. * 1332 (Given - Provider: Haley Pérez RN) * 0936 (Given - Provider: Kari Carlos, SVETLANA) donepeziL (ARICEPT) tablet 10 mg 10 mg, oral, Nightly, First dose on Thu12/30/23 at 2200, Look-alike/sound-alike medication - verifyindication for use. FLUoxetine (PROzac) capsule 20 mg 20 mg, oral, Daily, First dose on Thu12/30/23 at 1315, Look-alike/sound-alike medication - verify indication for use., Indications: generalized anxiety disorder * 1400 (Given - Provider: Kari Carlos RN) levothyroxine (SYNTHROID, LEVOTHROID) tablet 50 mcg 50 mcg, oral, Daily, First dose on Thu12/30/23 at 1315, Look-alike/sound-alike medication. Verify indication for use Administer on empty stomach at least ONE hour before or TWO hours after food Enteral Feeding: For 7 days or less of tube feeding- do NOT hold tube feedings, after 7 days- hold tube feedings ONE hour before and ONE hour after administration DOES NOT APPLY TO NEONATES Monitor thyroid function tests weekly, Indications: hypothyroidism * 1315 (Not Given - Provider: Kari Carlos RN - Reason: Patient/family refused) lidocaine (URO-JET) 2 % jelly 1 Application (COMPLETED) 1 Application, urethral, Once, On Thu12/29/23 at 1845, For 1 dose * 1845 (Given - Provider: Stefania Cruz, SVETLANA) QUEtiapine (SEROquel) tablet 100 mg 100 mg, oral, 2 times daily, First dose on Thu12/30/23 at 1315, Look-alike/sound-alike medication -verify indication for use., Indications: generalized anxiety disorder * 1400 (Given - Provider: Kari Carlos RN) rosuvastatin (CRESTOR) tablet 10 mg 10 mg, oral, Nightly, First dose on Thu12/29/23 at 2200, Look-alike/sound-alike medication - verifyindication for use. * 2138 (Given - Provider: Stefania Cruz RN) sodium chloride 0.9 % bolus (COMPLETED) 500 mL, intravenous, at 492 mL/hr, Administer over 61 Minutes, Once, On Thu12/29/23 at 1115, For 1 dose, Give fluid bolus IV, if systolic blood pressure remains less than 100 after 30 minutes call physician. * 1115 (New Bag - Provider: Haley Pérez, SVETLANA) * 1216 (Stop Bag - Provider: Haley Pérez RN) sodium chloride 0.9 % flush 3 mL 3 mL, intravenous, Every 12 hours scheduled, First dose on Thu12/29/23 at 1115 * 1115 (Not Given - Provider: Haley Pérez RN - Reason: IV infusing) * 2135 (Given - Provider: Stefania Cruz RN) * 0938 (Given - Provider: Kari Carlos RN) tamsulosin (FLOMAX) 24 hr capsule 0.4 mg 0.4 mg, oral, Nightly, First dose on Thu12/29/23 at 2200, Do not crush or chew. * 2135 (Given - Provider: Stefania Cruz RN) Medication Order12/27// lactated ringers infusion (CANCELED) 75 mL/hr, intravenous, Continuous, Starting on Thu12/29/23 at 0730, Pre-op * 0834 (New Bag - Provider: Mickie Hdz APRN-BLACK MILL OPERATOR) * 0900 (Anesthesia Volume Adjustment - Provider: Mickie Hdz APRN-BLACK MILL OPERATOR) * 1000 (Anesthesia Volume Adjustment - Provider: Mickie Hdz APRN-BLACK MILL OPERATOR) * 1100 (Stop Bag - Provider: Haley Pérez RN) lactated ringers infusion () 50 mL/hr, intravenous, Continuous, Starting on Thu12/29/23 at 1115, For 10 hours * 1125 (New Bag - Provider: Haley Pérez RN) * 1125 (Rate/Dose Verify - Provider: Stefania Cruz RN) * 2150 (Stop Bag - Provider: Stefania Cruz RN) phenylephrine (JESSIKA-SYNEPHRINE) 20 mg in sodium chloride 0.9 % 250 mL (0.08 mg/mL) infusion (CANCELED) 0.5-2.5 mcg/kg/min 83.4 kg (31.275-156.375 mL/hr, rounded to 31.3-156.4 mL/hr), intravenous, Continuous, Starting on Thu12/29/23 at 1230, Preferred central line administration. Start at 0.5 mcg/kg/min. Titrate by 0.2 mcg/kg/min every 5 min to achieve SBP greater than 110. VESICANT (RED), Indication: Hypotension, Sequence of Pressors - Use this medication: First, Wean Sequence: Wean First * 1257 (New Bag - Provider: Haley Pérez RN) * 1306 (Rate/Dose Change - Provider: Stefania Cruz RN) * 1334 (Paused - Provider: Stefania Cruz RN) * 1408 (Restarted - Provider: Stefania Cruz RN) * 1536 (Rate/Dose Change - Provider: Stefania Cruz RN) * 1551 (Paused - Provider: Stefania Cruz RN) * 1652 (Restarted - Provider: Stefania Cruz RN) * 1724 (Paused - Provider: Stefania Cruz RN) * 1728 (Restarted - Provider: Stefania Cruz RN) * 1931 (Rate/Dose Change - Provider: Stefania Cruz RN) * 2043 (Rate/Dose Change - Provider: Stefania Cruz RN) * 2044 (Paused - Provider: Stefania Cruz RN) * 2212 (Rate/Dose Change - Provider: Stefania Cruz RN) * 2328 (Paused - Provider: Stefania Cruz RN) * 0100 (Rate/Dose Change - Provider: Stefania Cruz RN) * 0108 (Rate/Dose Verify - Provider: Stefania Cruz RN) * 0247 (Rate/Dose Change - Provider: Stefania Cruz RN) * 0250 (Rate/Dose Verify - Provider: Stefania Cruz RN) * 0335 (Restarted - Provider: Stefania Cruz RN) * 0337 (Rate/Dose Verify - Provider: Stefania Cruz RN) * 0402 (Paused - Provider: Stefania Cruz RN) * 0416 (Restarted - Provider: Stefania Cruz RN) * 0418 (New Bag - Provider: Stefania Cruz RN) * 0632 (Rate/Dose Verify - Provider: Stefania Cruz RN) * 0709 (Rate/Dose Change - Provider: Kari Carlos, RN) * 0736 (Rate/Dose Verify - Provider: Kari Carlos, RN) * 0801 (Rate/Dose Change - Provider: Kari Carlos, RN) * 0801 (Stop Bag - Provider: Kari Carlos, SVETLANA) sodium chloride 0.9 % (bag) (NS) 0.9 % irrigation solution 3,000 mL 3,000 mL, irrigation, Continuous, Starting on Thu12/29/23 at 2200, Wean CBI to pink * 0000 (New Bag - Provider: Stefania Cruz RN) * 0325 (New Bag - Provider: Stefania Cruz RN) * 0411 (New Bag - Provider: Stefania Cruz RN) * 0700 (Stop Bag - Provider: Kari Carlos RN - Comment: clamp trial per urology) sodium chloride 0.9 % infusion 3 mL/hr, intra-arterial, Continuous, Starting on Thu12/29/23 at 1200 * 1214 (New Bag - Provider: Kaela Hassan RCP) * 2006 (Stop Bag - Provider: Kadi Cai RCP) * 2007 (New Bag - Provider: Kadi Cai RCP) * 0108 (Rate/Dose Verify - Provider: Stefania Cruz RN) * 0250 (Rate/Dose Verify - Provider: Stefania Cruz RN) * 0632 (Rate/Dose Verify - Provider: Stefania Cruz RN) * 0923 (Rate/Dose Verify - Provider: Kari Carlos RN) Medication Order12/27//// acetaminophen (TYLENOL EXTRA STRENGTH) tablet 1,000 mg 1,000 mg, oral, Every 6 hours PRN, pain - pain rated 1-4, Starting on Thu12/29/23 at 1108 calcium gluconate 3,000 mg in sodium chloride 0.9 % 100 mL IVPB(Linked Group 1) 3,000 mg, intravenous, at 130 mL/hr, Administer over 60 Minutes, As needed, for ionized calcium level less than 3 mg/dL, Starting on Thu12/29/23 at 1509, CALL PHYSICIAN if this dose is administered. Recheck ionized calcium 6 hours after infusion. Hold calcium replacement for phosphorus greater than5.5 mg/dL. VESICANT (RED) calcium gluconate IVPB 1000 mg/50 mL (20 mg/mL premix)(Linked Group 1) 1,000 mg, intravenous, at 50 mL/hr, Administer over 60 Minutes, As needed, for ionized calcium level 3.5 to 4.4 mg/dL, Starting on Thu12/29/23 at 1509, Recheck ionized calcium 6 hours after infusion.Hold calcium replacement for phosphorus greater than 5.5 mg/dL. VESICANT (RED) calcium gluconate IVPB 2000 mg/100 mL (20 mg/mL premix)(Linked Group 1) 2,000 mg, intravenous, at 100 mL/hr, Administer over 60 Minutes, As needed, for ionized calcium level 3 to 3.4 mg/dL, Starting on Thu12/29/23 at 1509, Recheck ionized calcium 6 hours after infusion. Hold calcium replacement for phosphorus greater than 5.5 mg/dL. VESICANT (RED) heparin 5000 units in 0.9% sod ch 500 mL irrigation (bag) (CANCELED) As needed, Starting on Thu12/29/23 at 0919, Intra-op * 0919 (Given - Provider: Marlys Garcia MD) hyoscyamine sulfate (LEVSIN) tablet 125 mcg 125 mcg, sublingual, Every 4 hours PRN, bladder spasms, Starting on Thu12/29/23 at 2054 * 1249 (Given - Provider: Kari Carlos RN) lidocaine PF (XYLOCAINE) 10 mg/mL (1 %) injection (CANCELED) As needed, Starting on Thu12/29/23 at 1024, Intra-op * 1024 (Given - Provider: aMrlys Garcia MD) magnesium sulfate IVPB 2000 mg/50 mL in iso-osmotic water (40 mg/mL premix) (Linked Group 2) 2,000 mg, intravenous, at 25 mL/hr, Administer over 120 Minutes, As needed, for magnesium level 1.7to 1.9 mg/dL or ionized magnesium level 0.45 to 0.5 mmol/L, Starting on Thu12/29/23 at 1509, Use premix solution. Default to ionized magnesium level in cases where patient has both magnesium and ionized magnesium results. If administered, check ionized magnesium (or total magnesium if ionized magnesium unavailable) level 4 hours after infusion. magnesium sulfate IVPB 4000 mg/100 mL in iso-osmotic water (40 mg/mL premix) (Linked Group 2) 4,000 mg, intravenous, at 25 mL/hr, Administer over 240 Minutes, As needed, for magnesium level 1.6mg/mL or less, or ionized magnesium level 0.44 mmol/L or less, Starting on Thu12/29/23 at 1509, Usepremix solution. Default to ionized magnesium level in cases where patient has both magnesium and ionized magnesium results. If administered, check ionized magnesium (or total magnesium if ionized magnesium unavailable) level 4 hours after infusion. ondansetron (PF) (ZOFRAN) injection 4 mg 4 mg, intravenous, Every 8 hours PRN, nausea, Starting on Thu12/29/23 at 1108, Administer over 2-5 minutes. potassium chloride (K-TAB,KLOR-CON) CR tablet 20-50 mEq(Linked Group 3) 20-50 mEq, oral, As needed, for potassium replacement, Starting on Thu12/29/23 at 1509, Progress tooral potassium replacement when patient tolerating oral intake. If dose administered, recheck potassium level 4 hours after last dose. For potassium level 3.4 to 3.8 mmol/L and Serum Creatinine 1.2 or less=30 mEq. For potassium level 3.1 to 3.3 mmol/L and Serum Creatinine 1.2 or less=40 mEq. For potassium level 3 mmol/L or less and Serum Creatinine 1.2 or less=50 mEq. For potassium level 3.4 to 3.8 mmol/L and Serum Creatinine greater than 1.2=20 mEq. For potassium level 3.1 to 3.3 mmol/L and Serum Creatinine greater than 1.2=30 mEq. For potassium level 3 mmol/L or less and Serum Creatinine greater than 1.2=40 mEq. Do not crush or chew. * 1523 (Given - Provider: Haley Pérez RN) potassium chloride (KAYCIEL) 20 mEq/15 mL solution 20-50 mEq(Linked Group 3) 20-50 mEq, oral, As needed, potassium replacement, Starting on Thu12/29/23 at 1509, Progress to oral potassium replacement when patient tolerating oral intake. If dose administered, recheck potassiumlevel 4 hours after last dose. For potassium level 3.4 to 3.8 mmol/L and Serum Creatinine 1.2 or less=30 mEq (22.5mL). For potassium level 3.1 to 3.3 mmol/L and Serum Creatinine 1.2 or less=40 mEq (30mL). For potassium level 3 mmol/L or less and Serum Creatinine 1.2 or less=50 mEq (37.5mL). For potassium level 3.4 to 3.8 mmol/L and Serum Creatinine greater than 1.2=20 mEq (15mL). For potassium level 3.1 to 3.3 mmol/L and Serum Creatinine greater than 1.2=30 mEq (22.5mL). For potassium level 3 mm ol/L or less and Serum Creatinine greater than 1.2=40 mEq (30mL). Must dilute before use - Mix in 3-8 ounces of water or juice before administration When administering in feeding tube, flush before and after per policy and monitor potassium levels * 1523 (See Alternative - Provider: Haley Pérez RN) potassium chloride IVPB 10 mEq/100 mL in water (0.1 mEq/mL premix)(Linked Group 4) 10 mEq, intravenous, at 100 mL/hr, Administer over 60 Minutes, As needed, for potassium replacement, Starting on Thu12/29/23 at 1509, Administer Potassium Chloride IVPB in 10 mEq increments. Maximum infusion rates: Central Line = 20 mEq/hour; Peripheral Line = 10 mEq/hour (10 mEq/100 mL). If dose administered, recheck potassium level 1 hour after infusion complete. For potassium level 3.4 to 3.8 mmol/L and Serum Creatinine 1.2 or less = 30 mEq For potassium level 3.1 to 3.3 mmol/L and Serum Creatinine 1.2 or less = 40 mEq For potassium level 3 mmol/L or less and Serum Creatinine 1.2 or less =50 mEq For potassium level 3.4 to 3.8 mmol/L and Serum Creatinine greater than 1.2 = 20 mEq For potassium level 3.1 to 3.3 mmol/L and Serum Creatinine greater than 1.2 = 30 mEq For potassium level 3 mmol/L or less and Serum Creatinine greater than 1.2 = 40 mEq VESICANT (YELLOW) Infuse each 10 mEq over a minimum of 1 hour. potassium chloride IVPB 10 mEq/50 mL in water (0.2 mEq/mL premix)(Linked Group 4) 10 mEq, intravenous, at 50 mL/hr, Administer over 1 Hours, As needed, for potassium replacement, Starting on Thu12/29/23 at 1509, Administer Potassium Chloride IVPB in 10 mEq increments. Maximum infusion rates: Central Line = 20 mEq/hour. Administer via Central Line Only. If dose administered, recheck potassium level 1 hour after infusion complete. For potassium level 3.4 to 3.8 mmol/L and Serum Creatinine 1.2 or less = 30 mEq For potassium level 3.1 to 3.3 mmol/L and Serum Creatinine 1.2 or less = 40 mEq For potassium level 3 mmol/L or less and Serum Creatinine 1.2 or less = 50 mEq For potassium level 3.4 to 3.8 mmol/L and Serum Creatinine greater than 1.2 = 20 mEq For potassium level 3.1 to 3.3 mmol/L and Serum Creatinine greater than 1.2 = 30 mEq For potassium level 3 mmol/L or less and Serum Creatinine greater than 1.2 = 40 mEq VESICANT (YELLOW) sod phos di, mono-K phos mono (K-PHOS NEUTRAL) 250 mg tablet 2 tablet(Linked Group 5) 2 tablet, oral, As needed, for phosphorous level 2.3 mg/dL or less, Starting on Thu12/29/23 at 1509, If dose administered, recheck phosphorus level 4 hours after last dose. Look-alike/sound-alike medication - verify indication for use. Give with a full glass of water. sodium chloride 0.9 % flush 3 mL 3 mL, intravenous, As needed, line care, before and after each intermittent use, Starting on Thu12/29/23 at 1108 sodium chloride 0.9% (NS) irrigation bottle (CANCELED) As needed, Starting on Thu12/29/23 at 0920, Intra-op * 0920 (Given - Provider: Marlys Garcia MD) sodium phosphate 20 mmol in sodium chloride 0.9 % 100 mL IVPB(Linked Group 5) 20 mmol, intravenous, at 26.7 mL/hr, Administer over 4 Hours, As needed, for phosphorous level 2.3 mg/dL or less, Starting on Thu12/29/23 at 1509, Administer over 4 hours via dedicated line(central line). If administered, recheck phosphorus level 4 hours after infusion complete. Infuse using central line access. sodium phosphate 20 mmol in sodium chloride 0.9 % 250 mL IVPB(Linked Group 5) 20 mmol, intravenous, at 42.8 mL/hr, Administer over 6 Hours, As needed, for phosphorous level 2.3 mg/dL or less, Starting on Thu12/29/23 at 1509, Administer over 6 hours via dedicated line (peripheral line). If administered, recheck phosphorus level 4 hours after infusion complete. thrombin (recombinant) (RECOTHROM) solution (CANCELED) As needed, Starting on Thu12/29/23 at 1023, Intra-op * 1023 (Given - Provider: Marlys Garcia MD) Order Group 1: calcium gluconate IVPB 1000 mg/50 mL (20 mg/mL premix)Jump to med 1,000 mg, intravenous, at 50 mL/hr, Administer over 60 Minutes, As needed, for ionized calcium level 3.5 to 4.4 mg/dL, Starting on Thu12/29/23 at 1509, Recheck ionized calcium 6 hours after infusion.Hold calcium replacement for phosphorus greater than 5.5 mg/dL. VESICANT (RED) Or calcium gluconate IVPB 2000 mg/100 mL (20 mg/mL premix)Jump to med 2,000 mg, intravenous, at 100 mL/hr, Administer over 60 Minutes, As needed, for ionized calcium level 3 to 3.4 mg/dL, Starting on Thu12/29/23 at 1509, Recheck ionized calcium 6 hours after infusion. Hold calcium replacement for phosphorus greater than 5.5 mg/dL. VESICANT (RED) Or calcium gluconate 3,000 mg in sodium chloride 0.9 % 100 mL IVPBJump to med 3,000 mg, intravenous, at 130 mL/hr, Administer over 60 Minutes, As needed, for ionized calcium level less than 3 mg/dL, Starting on Thu12/29/23 at 1509, CALL PHYSICIAN if this dose is administered. Recheck ionized calcium 6 hours after infusion. Hold calcium replacement for phosphorus greater than5.5 mg/dL. VESICANT (RED) Group 2: magnesium sulfate IVPB 2000 mg/50 mL in iso-osmotic water (40 mg/mL premix)Jump to med 2,000 mg, intravenous, at 25 mL/hr, Administer over 120 Minutes, As needed, for magnesium level 1.7to 1.9 mg/dL or ionized magnesium level 0.45 to 0.5 mmol/L, Starting on Thu12/29/23 at 1509, Use premix solution. Default to ionized magnesium level in cases where patient has both magnesium and ionized magnesium results. If administered, check ionized magnesium (or total magnesium if ionized magnesium unavailable) level 4 hours after infusion. Or magnesium sulfate IVPB 4000 mg/100 mL in iso-osmotic water (40 mg/mL premix)Jump to med 4,000 mg, intravenous, at 25 mL/hr, Administer over 240 Minutes, As needed, for magnesium level 1.6mg/mL or less, or ionized magnesium level 0.44 mmol/L or less, Starting on Thu12/29/23 at 1509, Usepremix solution. Default to ionized magnesium level in cases where patient has both magnesium and ionized magnesium results. If administered, check ionized magnesium (or total magnesium if ionized magnesium unavailable) level 4 hours after infusion. Group 3: potassium chloride (K-TAB,KLOR-CON) CR tablet 20-50 mEqJump to med 20-50 mEq, oral, As needed, for potassium replacement, Starting on Thu12/29/23 at 1509, Progress tooral potassium replacement when patient tolerating oral intake. If dose administered, recheck potassium level 4 hours after last dose. For potassium level 3.4 to 3.8 mmol/L and Serum Creatinine 1.2 or less=30 mEq. For potassium level 3.1 to 3.3 mmol/L and Serum Creatinine 1.2 or less=40 mEq. For potassium level 3 mmol/L or less and Serum Creatinine 1.2 or less=50 mEq. For potassium level 3.4 to 3.8 mmol/L and Serum Creatinine greater than 1.2=20 mEq. For potassium level 3.1 to 3.3 mmol/L and Serum Creatinine greater than 1.2=30 mEq. For potassium level 3 mmol/L or less and Serum Creatinine greater than 1.2=40 mEq. Do not crush or chew. Or potassium chloride (KAYCIEL) 20 mEq/15 mL solution 20-50 mEqJump to med 20-50 mEq, oral, As needed, potassium replacement, Starting on Thu12/29/23 at 1509, Progress to oral potassium replacement when patient tolerating oral intake. If dose administered, recheck potassiumlevel 4 hours after last dose. For potassium level 3.4 to 3.8 mmol/L and Serum Creatinine 1.2 or less=30 mEq (22.5mL). For potassium level 3.1 to 3.3 mmol/L and Serum Creatinine 1.2 or less=40 mEq (30mL). For potassium level 3 mmol/L or less and Serum Creatinine 1.2 or less=50 mEq (37.5mL). For potassium level 3.4 to 3.8 mmol/L and Serum Creatinine greater than 1.2=20 mEq (15mL). For potassium level 3.1 to 3.3 mmol/L and Serum Creatinine greater than 1.2=30 mEq (22.5mL). For potassium level 3 mm ol/L or less and Serum Creatinine greater than 1.2=40 mEq (30mL). Must dilute before use - Mix in 3-8 ounces of water or juice before administration When administering in feeding tube, flush before and after per policy and monitor potassium levels Group 4: potassium chloride IVPB 10 mEq/50 mL in water (0.2 mEq/mL premix)Jump to med 10 mEq, intravenous, at 50 mL/hr, Administer over 1 Hours, As needed, for potassium replacement, Starting on Thu12/29/23 at 1509, Administer Potassium Chloride IVPB in 10 mEq increments. Maximum infusion rates: Central Line = 20 mEq/hour. Administer via Central Line Only. If dose administered, recheck potassium level 1 hour after infusion complete. For potassium level 3.4 to 3.8 mmol/L and Serum Creatinine 1.2 or less = 30 mEq For potassium level 3.1 to 3.3 mmol/L and Serum Creatinine 1.2 or less = 40 mEq For potassium level 3 mmol/L or less and Serum Creatinine 1.2 or less = 50 mEq For potassium level 3.4 to 3.8 mmol/L and Serum Creatinine greater than 1.2 = 20 mEq For potassium level 3.1 to 3.3 mmol/L and Serum Creatinine greater than 1.2 = 30 mEq For potassium level 3 mmol/L or less and Serum Creatinine greater than 1.2 = 40 mEq VESICANT (YELLOW) Or potassium chloride IVPB 10 mEq/100 mL in water (0.1 mEq/mL premix)Jump to med 10 mEq, intravenous, at 100 mL/hr, Administer over 60 Minutes, As needed, for potassium replacement, Starting on Thu12/29/23 at 1509, Administer Potassium Chloride IVPB in 10 mEq increments. Maximum infusion rates: Central Line = 20 mEq/hour; Peripheral Line = 10 mEq/hour (10 mEq/100 mL). If dose administered, recheck potassium level 1 hour after infusion complete. For potassium level 3.4 to 3.8 mmol/L and Serum Creatinine 1.2 or less = 30 mEq For potassium level 3.1 to 3.3 mmol/L and Serum Creatinine 1.2 or less = 40 mEq For potassium level 3 mmol/L or less and Serum Creatinine 1.2 or less =50 mEq For potassium level 3.4 to 3.8 mmol/L and Serum Creatinine greater than 1.2 = 20 mEq For potassium level 3.1 to 3.3 mmol/L and Serum Creatinine greater than 1.2 = 30 mEq For potassium level 3 mmol/L or less and Serum Creatinine greater than 1.2 = 40 mEq VESICANT (YELLOW) Infuse each 10 mEq over a minimum of 1 hour. Group 5: sodium phosphate 20 mmol in sodium chloride 0.9 % 250 mL IVPBJump to med 20 mmol, intravenous, at 42.8 mL/hr, Administer over 6 Hours, As needed, for phosphorous level 2.3 mg/dL or less, Starting on Thu12/29/23 at 1509, Administer over 6 hours via dedicated line (peripheral line). If administered, recheck phosphorus level 4 hours after infusion complete. Or sodium phosphate 20 mmol in sodium chloride 0.9 % 100 mL IVPBJump to med 20 mmol, intravenous, at 26.7 mL/hr, Administer over 4 Hours, As needed, for phosphorous level 2.3 mg/dL or less, Starting on Thu12/29/23 at 1509, Administer over 4 hours via dedicated line(central line). If administered, recheck phosphorus level 4 hours after infusion complete. Infuse using central line access. Or sod phos di, mono-K phos mono (K-PHOS NEUTRAL) 250 mg tablet 2 tabletJump to med 2 tablet, oral, As needed, for phosphorous level 2.3 mg/dL or less, Starting on Thu12/29/23 at 1509, If dose administered, recheck phosphorus level 4 hours after last dose. Look-alike/sound-alike medication - verify indication for use. Give with a full glass of water. FOR RECORDS PERTAINING TO PATIENTS WHO ARE [...] BE BASED ON THE PRIMARY CLINICAL RECORDS. [employer] [facility]. provides no warranty or guarantee of the accuracy or completeness of information in this document.
--- NOTE | 2025-04-07 17:19 | ED.FALL1 ---
HPI HPI - Fall General Chief Complaint: Fall Stated Complaint: FELL DOWN THE STAIRS Time Seen by Provider: 04/07/25 16:15 Source: family Mode of arrival: walk-in Limitations: altered mental status History of Present Illness HPI Narrative: The patient is a 80 years old male to us by the for concern of a fall that just happened before arrival, the patient had a fall over the last 6 steps at home He did not pass out at any time and he did not have any loss of consciousness the patient himself denies any complain The was able to get him out of the floor and bring him over here by private car The patient have a history of dementia and he have some instability when walking Related Data Home Medications ?Medication ?Instructions ?Recorded ?Confirmed aspirin 81 mg tablet,delayed 81 mg PO DAILY 10/30/23 04/07/25 release donepezil 10 mg tablet 10 mg PO BID 10/30/23 04/07/25 losartan 25 mg tablet 25 mg PO .qhs 10/30/23 04/07/25 melatonin 10 mg tablet 10 mg PO DAILY 10/30/23 04/07/25 simvastatin 40 mg tablet 40 mg PO .qhs 10/30/23 04/07/25 tamsulosin 0.4 mg capsule 0.4 mg PO .qhs 10/30/23 04/07/25 brexpiprazole 4 mg tablet (Rexulti) 4 mg PO .qhs 04/07/25 04/07/25 scopolamine base 1 mg over 3 days 1 patch topical Q3D 04/07/25 04/07/25 transdermal patch trazodone 50 mg tablet 50 mg PO BID 04/07/25 04/07/25 Previous Rx's ?Medication ?Instructions ?Recorded levothyroxine 50 mcg tablet 50 mcg PO DAILY #30 tabs 10/31/23 bacitracin zinc 500 unit/gram 1 applic topical BID #14 grams 04/07/25 topical ointment Allergies Allergy/AdvReac Type Severity Reaction Status Date / Time NSAIDS (Non-Steroidal Allergy Mild Headache Verified 04/07/25 16:13 Anti-Inflamma Opioid HPI Opioid Management Most Recent Pain and Opioid Data: Last Pain Scale 5 Today, 16:13 Last ORT Total Score 0 01/01/24, 19:18 Last ORT Risk Category Low Risk 01/01/24, 19:18 Review of Systems ROS Status of ROS 10 or more systems reviewed and unremarkable except as noted in history and below [facility] Medical History (Updated 04/07/25 @ 17:22 by Pam Piedra MD) Hypothyroidism (acquired) ?E03.9 - Hypothyroidism, unspecified (ICD-10) Carotid arterial disease ?I77.9 - Disorder of arteries and arterioles, unspecified (ICD-10) Hyperlipidemia ?E78.5 - Hyperlipidemia, unspecified (ICD-10) Hypertension ?I10 - Essential (primary) hypertension (ICD-10) Dementia ?F03.90 - Unspecified dementia, unspecified severity, without behavioral disturbance, psychotic disturbance, mood disturbance, and anxiety (ICD-10) Surgical History H/O hernia repair ?Z98.890 - Other specified postprocedural states (ICD-10) ?Z87.19 - Personal history of other diseases of the digestive system (ICD-10) Hx of tonsillectomy ?Z90.89 - Acquired absence of other organs (ICD-10) Family History Father Family history of stroke Family history of diabetes mellitus Family history of hypertension Social History Within the past year, how often did you have a drink containing alcohol: never Score interpretation: A score less than 4 is consistent with normal alcohol consumption. Smoking status: Never smoker Non-prescribed substance use: denies use Previous occupational history: retired Highest level of school completed/degree received: high school graduate Are you now , , , , never or living with a partner: In a typical week, how many times do you talk on the telephone with family, friends, or neighbors: 3 or more times per week How often do you get together with friends or relatives: 3 or more times per week How often do you attend congregational or buddhist services: 4 or more times per year Do you belong to any clubs or organizations such as congregational groups unions, fraternal or athletic groups, or school groups: no Total score: 3 Score interpretation: A score of greater than or equal to 2 indicates the lowest level of social isolation. Little interest or pleasure in doing things: not at all Feeling down, depressed, or hopeless: not at all Feel stressed/tense/nervous/anxious/difficulty sleeping: not at all Gender Identity: male Exam Narrative Exam Narrative: Nurses notes and vital signs reviewed and patient is not hypoxic. General: Well-appearing and in no apparent distress. Skin: Warm, dry, no pallor noted. No rash. Head: Normocephalic, atraumatic. Neck: Supple, non-tender. Eye: Pupils are equal, round and EOMI. No scleral icterus. Cardiovascular: Regular Rate and Rhythm without murmur, gallop or rub. Respiratory: No accessory muscle use or respiratory distress. Lungs are clear to auscultation, no wheezing, rales or rhonchi Chest Wall: There is a bruise on the posterior aspect on the left side and abrasion that covering almost the mid ribs almost an area of 12 cm, there is no open wound, no crepitus Back: No midline thoracic or lumbar vertebral tenderness. No CVA tenderness Musculoskeletal: normal ROM, no calf or popliteal tenderness, no lower extremity edema/swelling GI: Abdomen is soft, non-distended. Normal bowel sounds. No masses appreciated. No tenderness to palpation. No rebound, guarding, or rigidity noted. Neurological: A&O x1, No cranial nerve dysfunction observed. Psychiatric: Cooperative and interactive. Normal mood and affect. Constitutional Vital Signs, click to edit/add: Last Vital Signs Temp 98 F 04/07/25 16:13 Pulse 77 04/07/25 16:13 Resp 12 04/07/25 16:13 BP 142/66 H 04/07/25 16:13 Pulse Ox 100 04/07/25 16:13 O2 Del Method Room Air 04/07/25 16:13 Course Vital Signs Vital signs: Vital Signs Temperature 98 F 04/07/25 16:13 Pulse Rate 77 04/07/25 16:13 Respiratory Rate 12 04/07/25 16:13 Blood Pressure 142/66 H 04/07/25 16:13 Pulse Oximetry 100 04/07/25 16:13 Oxygen Delivery Method Room Air 04/07/25 16:13 Temperature 98 F 04/07/25 16:13 Pulse Rate 77 04/07/25 16:13 Respiratory Rate 12 04/07/25 16:13 Blood Pressure 142/66 H 04/07/25 16:13 Pulse Oximetry 100 10/31/25 16:13 Oxygen Delivery Method Room Air 04/07/25 16:13 MDM - Fall MDM Narrative Medical decision making narrative: The patient had a trip over the last 6 steps He did not had any loss of consciousness but he had a CT head and CT cervical spine showing no acute pathology The patient had a CT of the thoracic spine showing that the patient have a left 6th and 7th rib fracture The patient is not having any significant pain he would just continue taking Tylenol at home The at the bedside instructed about using incentive spirometer on an hourly basis Also in case of any fever chills or any other concern the patient to be brought back to the ER Also in case of increasing pain the patient to come back to the ER patient also to avoid any risk of falling including the stairs Bacitracin for local care for the abrasion on the back The patient did not have any back pain on evaluation the CT lumbar spine showed no acute significant pathology Nurses notes and vital signs reviewed and patient is not hypoxic. The patient to follow-up with the primary care within 2 to 3 days and to come back to the ER in case of any worsening of the current symptoms or any new symptoms or concerns Discharge Plan Discharge Chief Complaint: Fall Clinical Impression: Fall, Multiple fractures of ribs Patient Disposition: Home, Self-Care Time of Disposition Decision: 17:43 Condition: Good Prescriptions / Home Meds: New bacitracin zinc 500 unit/gram ointment 1 applic topical BID Qty: 14 0RF No Action donepezil 10 mg tablet 10 mg PO BID losartan 25 mg tablet 25 mg PO .qhs simvastatin 40 mg tablet 40 mg PO .qhs tamsulosin 0.4 mg capsule 0.4 mg PO .qhs aspirin 81 mg tablet,delayed release (DR/EC) 81 mg PO DAILY melatonin 10 mg tablet 10 mg PO DAILY levothyroxine 50 mcg tablet 50 mcg PO DAILY Qty: 30 0RF Rexulti 4 mg tablet 4 mg PO .qhs scopolamine base 1 mg over 3 days patch 3 day 1 patch topical Q3D trazodone 50 mg tablet 50 mg PO BID Print Language: Romanian Instructions: Rib Fracture (ED), Fall Prevention (ED) Additional Instructions: Please make sure that you avoid any risk of falling And the take Tylenol for pain control Use incentive spirometer at least once an hour Referrals: Gini Burleson CERTIFIED SCRUB TECH [Primary Care Provider] - 1 week
== END 2025-04-07 17:55 | disposition home or self-care (01) ==
PROVIDERS: Emergency Provider Emergency Medicine; PCP Nurse Practitioner Primary Care
DX: S22.42XA Multiple fractures of ribs, left side, initial encounter for closed fracture (principal); W10.8XXA Fall (on) (from) other stairs and steps, initial encounter; F03.90 Unspecified dementia, unspecified severity, without behavioral disturbance, psychotic disturbance, mood disturbance, and anxiety; R26.89 Other abnormalities of gait and mobility
CPT/HCPCS: 70450; 71250; 72125; 72131; 76376; 99285